=== PATIENT | male | born 1965 | race Caucasian/White ===

== ENCOUNTER → 2016-11-17 | Outpatient (CLI) | payer MEDICAID, MEDICARE ==
[~2016-11-17] MED LIST: AMLO5TAB2 PO; ATEN25TA PO; CEPH500C PO; CORE25TA PO; CYCL10TA PO; EQ N TD; ESCI10TA2 PO; FERR325T PO; FOLI1TAB2 PO; GABA600T PO; GABAPOW41 PO; GLUC1000 PO; IBUP600T26 PO; METFORMIN PO; MULTCAP PO; NICO21PAT TD; OXAZ10CA PO; PRIL20CA9 PO; ROXI15TA12 PO; THERTAB30 PO; TYLE325T5 PO; VITA100037 PO; VITA100T2 PO; VITAMIN D2 PO; ZEST1TAB7 PO
[2016-11-17 12:03] LABS: BASO % 0.5 % (0.0-1.0); EOS # 0.2 K/mm3 (0.0-0.50); LARGE UNSTAINED CELL # 0.1 K/mm3 (0.0-0.4); LARGE UNSTAINED CELL % 1.5 % (0.0-4.0); LYMPH # 1.3 K/mm3 (1.5-4.5); LYMPH % 21.7 % (24.0-44.0); MEAN CORPUSCULAR HGB CONC 32.8 g/dl (32.0-36.5); MEAN CORPUSCULAR VOLUME 94.6 fl (80.0-96.0); MONO # 0.3 K/mm3 (0.0-0.8); MONO % 4.9 % (0.0-5.0); NEUTROPHILS # 3.6 K/mm3 (1.8-7.7); NEUTROPHILS % 67.3 % (36.0-66.0); PLATELET COUNT, AUTOMATED 267 k/mm3 (150-450); RED CELL DISTRIBUTION WIDTH 13.8 % (11.5-14.5); WHITE BLOOD COUNT 5.4 K/mm3 (4.0-10.0)
[2016-11-17 12:24] LABS: ALBUMIN 3.7 GM/DL (3.2-5.2); ALBUMIN/GLOBULIN RATIO 1.32 (1.00-1.93); ALKALINE PHOSPHATASE 55 U/L (45-117); ALT/SGPT 17 U/L (12-78); ANION GAP 9 MEQ/L (8-16); AST/SGOT 15 U/L (15-37); BILIRUBIN,TOTAL 0.5 MG/DL (0.2-1.0); BLOOD UREA NITROGEN 15 MG/DL (7-18); CALCIUM LEVEL 8.5 MG/DL (8.5-10.1); CARBON DIOXIDE LEVEL 32 MEQ/L (21-32); CHLORIDE LEVEL 101 MEQ/L (98-107); CHOLESTEROL LEVEL 108 MG/DL (<200); CREATININE FOR GFR 0.87 MG/DL (0.70-1.30); FERRITIN 7 NG/ML (26-388); GLOMERULAR FILTRATION RATE > 60.0 (>56); GLUCOSE, FASTING 136 MG/DL (70-105); MAGNESIUM LEVEL 1.3 MG/DL (1.8-2.4); PERCENT SATURATION 18.7 % (19.7-37.4); POTASSIUM SERUM 4.8 MEQ/L (3.5-5.1); SODIUM LEVEL 142 MEQ/L (136-145); TOTAL IRON BINDING CAPACITY 358 UG/DL (250-450); TOTAL PROTEIN 6.5 GM/DL (6.4-8.2); TRIGLYCERIDES LEVEL 74 MG/DL (<150)
[2016-11-17 12:27] LABS: VITAMIN B12 LEVEL 968 PG/ML (247-911)
== END ==
LOC: M LAB 10:50
PROVIDERS: ATTEND Physician Assistant
DX: D50.9 Iron deficiency anemia, unspecified (principal); I10 Essential (primary) hypertension; E11.9 Type 2 diabetes mellitus without complications; E78.4 Other hyperlipidemia; E83.42 Hypomagnesemia; E55.9 Vitamin D deficiency, unspecified

== ENCOUNTER → 2016-12-27 | Outpatient (CLI) | payer MEDICAID, MEDICARE | LOC: M LAB 14:12 | PROVIDERS: ATTEND Family Medicine | DX: E83.42 Hypomagnesemia (principal) ==

== ENCOUNTER → 2017-01-24 | Outpatient (CLI) | payer MEDICARE ==
[~2017-01-24] VITALS: Ht 175.3 cm; Wt 81.6 kg
[~2017-01-24] MED LIST changes: +GABA-282 PO; +HYDR12.55 PO; +LIDOCAINE 2% INJ 100 MG/5 ML SDV (FOR ANES.) As Ordered ONE; +LIPI20TA PO; +NS 1,000 ML IV SCH; +OXYC15TA76 PO; +PROPOFOL 500 MG/50 ML VIAL As Ordered ONE; +STOO240C PO; +VITA500L3 PO
--- NOTE | 2017-01-24 15:35 | ROOR ---
Patient Name: Daryl Kaye Procedure Date: 01/24/2017 3:14 PM Date of : 1965 Age: 51 Room: [facility] Gender: Male Note Status: Finalized Procedure: Upper GI endoscopy Indications: Iron deficiency anemia Providers: Juaquin HICKEY MD Referring MD: MARTY Wong Requesting Provider: Medicines: Monitored Anesthesia Care Complications: No immediate complications. Procedure: Pre-Anesthesia Assessment: - The heart rate, respiratory rate, oxygen saturations, blood pressure, adequacy of pulmonary ventilation, and response to care were monitored throughout the procedure. The Endoscope was introduced through the mouth, and advanced to the jejunum. The upper GI endoscopy was accomplished without difficulty. The patient tolerated the procedure well. Findings: The examined esophagus was normal. 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 The gastrojejunal anastomosis was characterized by mild stenosis. The exam of the stomach was otherwise normal. The examined jejunum was normal. Biopsies for histology were taken with a cold forceps for evaluation of celiac disease. Impression: - Normal esophagus. - Rex-en-Y gastrojejunostomy with gastrojejunal anastomosis easily passable with mild stenosis. - Normal examined jejunum. Biopsied. Recommendation: - Recommend an iron supplement for the rest of the patient's life. Juaquin Hickey MD Juaquin HICKEY MD 01/24/2017 3:35:11 PM This report has been signed electronically. Number of Addenda: 0 Note Initiated On: 01/24/2017 3:14 PM Estimated Blood Loss: Estimated blood loss: none.
--- NOTE | 2017-01-24 15:45 | ROOR ---
Patient Name: Daryl Kaye Procedure Date: 01/24/2017 3:15 PM Date of : 1965 Age: 51 Room: [facility] Gender: Male Note Status: Finalized Procedure: Colonoscopy Indications: Screening for colorectal malignant neoplasm Providers: Juaquin HICKEY MD Referring MD: MARTY Wong Requesting Provider: Medicines: Monitored Anesthesia Care Complications: No immediate complications. Procedure: Pre-Anesthesia Assessment: - The heart rate, respiratory rate, oxygen saturations, blood pressure, adequacy of pulmonary ventilation, and response to care were monitored throughout the procedure. The Colonoscope was introduced through the anus with the intention of advancing to the cecum. The scope was advanced to the transverse colon before the procedure was aborted. Medications were given. The colonoscopy was performed with difficulty due to poor bowel prep with stool present. The patient tolerated the procedure well. The quality of the bowel preparation was poor. Findings: The perianal and digital rectal examinations were normal. Unable to perform adequate detail examination. Impression: - Preparation of the colon was poor. - Unable to perform adequate detail examination. - No specimens collected. Recommendation: - Repeat colonoscopy at the next available appointment because the bowel preparation was poor. - My office will call you within the next few days to reschedule a colonoscopy with alternate colon preparation. Juaquin Hickey MD Juaquin HICKEY MD 01/24/2017 3:45:33 PM This report has been signed electronically. Number of Addenda: 0 Note Initiated On: 01/24/2017 3:15 PM Estimated Blood Loss: Estimated blood loss: none.
[2017-01-24 16:11] VITALS: BP 166/98
== END | disposition home or self-care (01) ==
LOC: M OPP 14:20
PROVIDERS: ATTEND Internal Medicine Gastroenterology
DX: Z12.11 Encounter for screening for malignant neoplasm of colon (principal); D50.9 Iron deficiency anemia, unspecified; Z98.0 Intestinal bypass and anastomosis status; E78.5 Hyperlipidemia, unspecified; R60.0 Localized edema; E11.9 Type 2 diabetes mellitus without complications; R12 Heartburn; M19.90 Unspecified osteoarthritis, unspecified site; M54.9 Dorsalgia, unspecified; F41.9 Anxiety disorder, unspecified; F32.9 Major depressive disorder, single episode, unspecified; R56.9 Unspecified convulsions; I45.6 Pre-excitation syndrome; G82.20 Paraplegia, unspecified; Z98.1 Arthrodesis status; Z98.84 Bariatric surgery status; F17.210 Nicotine dependence, cigarettes, uncomplicated; Z79.84 Long term (current) use of oral hypoglycemic drugs; Z79.899 Other long term (current) drug therapy

== ENCOUNTER → 2017-03-03 | Outpatient (CLI) | payer MEDICARE, MEDICAID ==
[~2017-03-03] VITALS: Ht 175.3 cm; Wt 81.6 kg
[~2017-03-03] MED LIST changes: +LIQUID POLIBAR PLUS 105% w/v 1900ML BTL As Ordered ONE; +NS 1,000 ML IV ONE; -NS 1,000 ML IV SCH; +PROPOFOL 200 MG/20 ML VIAL As Ordered ONE; -PROPOFOL 500 MG/50 ML VIAL As Ordered ONE
--- NOTE | 2017-03-03 14:41 | ROOR ---
Patient Name: Daryl Kaye Procedure Date: 03/03/2017 2:04 PM Date of : 1965 Age: 52 Room: [facility] Gender: Male Note Status: Finalized Procedure: Colonoscopy Indications: Screening for colorectal malignant neoplasm Providers: Juaquin HICKEY MD Referring MD: Stiven Zamudio MD Requesting Provider: Medicines: Monitored Anesthesia Care Complications: No immediate complications. Procedure: Pre-Anesthesia Assessment: - The heart rate, respiratory rate, oxygen saturations, blood pressure, adequacy of pulmonary ventilation, and response to care were monitored throughout the procedure. The Colonoscope was introduced through the anus and advanced to the splenic flexure. The colonoscopy was performed with difficulty due to inadequate bowel prep. Findings: The perianal and digital rectal examinations were normal. There was evidence of a stricture or anastomosis in the area of the transverse colon. The anatomy is not determined with this exam. Impression: - Suboptimal colon prep. - Incomplete exam-Unable to pass scope safely beyond probably distal transverse colon due to stricture or anastomosis. - There was evidence of a stricture or anastomosis in the area of the transverse colon. The anatomy is not determined with this exam. - No specimens collected. Recommendation: - Perform a barium enema today. - Telephone endoscopist for study results in 2 weeks. Juaquin Hickey MD Juaquin HICKEY MD 03/03/2017 2:41:02 PM This report has been signed electronically. Number of Addenda: 0 Note Initiated On: 03/03/2017 2:04 PM Estimated Blood Loss: Estimated blood loss: none.
[2017-03-03 14:57] VITALS: BP 140/86
--- NOTE | 2017-03-03 17:21 | REP ---
BARIUM ENEMA AIR CONTRAST: The procedure was performed under the personal supervision of Dr. York. The images were reviewed with Dr. York. The patient is status post incomplete colonoscopy. The early childhood specialist film shows no organomegaly or pathological masses. The intestinal gas pattern is nonspecific. There is an IVC filter in place. There are multiple surgical clips noted throughout the abdomen. There is a fixation plate and screws seen in the right pelvis. Liquid barium and air were instilled into the colon in a retrograde flow of the barium and air mixture. In the splenic flexure here is a focal severe stricture which measures approximately 6 cm. There is dilation of the colon proximal to the stricture. Multiple techniques were tried by rolling the patient and adding air, however, very little contrast was able to be advanced beyond this stricture. This may be due to inflammatory or neoplastic process. IMPRESSION: In the splenic flexure there is a focal severe stricture measuring approximately 6 cm in total length. There is dilatation of the colon proximal to the stricture. This may be due to inflammatory or neoplastic process. 4 minutes and 57 seconds of fluoroscopy time was utilized for this procedure.
== END | disposition home or self-care (01) ==
LOC: M OPP 11:46
PROVIDERS: ATTEND Internal Medicine Gastroenterology
DX: Z12.11 Encounter for screening for malignant neoplasm of colon (principal); Z98.0 Intestinal bypass and anastomosis status; I10 Essential (primary) hypertension; E78.5 Hyperlipidemia, unspecified; E11.9 Type 2 diabetes mellitus without complications; K44.9 Diaphragmatic hernia without obstruction or gangrene; K21.9 Gastro-esophageal reflux disease without esophagitis; D64.9 Anemia, unspecified; G89.4 Chronic pain syndrome; J44.9 Chronic obstructive pulmonary disease, unspecified; I25.10 Atherosclerotic heart disease of native coronary artery without angina pectoris; I69.351 Hemiplegia and hemiparesis following cerebral infarction affecting right dominant side; Z98.84 Bariatric surgery status; R12 Heartburn; M19.90 Unspecified osteoarthritis, unspecified site; L30.9 Dermatitis, unspecified; M25.60 Stiffness of unspecified joint, not elsewhere classified; F41.9 Anxiety disorder, unspecified; F32.9 Major depressive disorder, single episode, unspecified; Z87.820 Personal history of traumatic brain injury; Z98.1 Arthrodesis status; F17.220 Nicotine dependence, chewing tobacco, uncomplicated; Z79.899 Other long term (current) drug therapy

== ENCOUNTER → 2017-04-18 | Outpatient (REF) | payer MEDICARE ==
[~2017-04-18] MED LIST changes: +FERR1TAB8 PO; -FERR325T PO; -FOLI1TAB2 PO; +FOLI1TAB4 PO; +IBUP-1022 PO; -IBUP600T26 PO; -LIDOCAINE 2% INJ 100 MG/5 ML SDV (FOR ANES.) As Ordered ONE; -LIQUID POLIBAR PLUS 105% w/v 1900ML BTL As Ordered ONE; -NS 1,000 ML IV ONE; -OXAZ10CA PO; +OXAZ10CA3 PO; -PROPOFOL 200 MG/20 ML VIAL As Ordered ONE; +STOO1CAP9 PO; -STOO240C PO; -VITA100037 PO; +VITA100067 PO
[2017-04-18 20:18] LABS: ANION GAP 8 MEQ/L (8-16); BLOOD UREA NITROGEN 16 MG/DL (7-18); CALCIUM LEVEL 8.8 MG/DL (8.5-10.1); CARBON DIOXIDE LEVEL 31 MEQ/L (21-32); CHLORIDE LEVEL 103 MEQ/L (98-107); GLOMERULAR FILTRATION RATE > 60.0 (>56); GLUCOSE, FASTING 125 MG/DL (70-105); POTASSIUM SERUM 4.1 MEQ/L (3.5-5.1); SODIUM LEVEL 142 MEQ/L (136-145)
== END ==
LOC: M SFHCPLAZ 15:50
PROVIDERS: ATTEND Physician Assistant
DX: Z01.818 Encounter for other preprocedural examination (principal); M18.12 Unilateral primary osteoarthritis of first carpometacarpal joint, left hand; G56.03 Carpal tunnel syndrome, bilateral upper limbs
CPT/HCPCS: 36415; 80048; 93005; G0463

== ENCOUNTER 2017-04-27 12:57 | Emergency (ER) | payer MEDICARE ==
[~2017-04-27] VITALS: Ht 175.3 cm; Wt 83.3 kg
[2017-04-27 12:57] VITALS: BP 162/97
== END 2017-04-27 13:30 | disposition left against medical advice (07) ==
LOC: M ED 12:57
DX: L76.22 Postprocedural hemorrhage of skin and subcutaneous tissue following other procedure (principal); Z53.29 Procedure and treatment not carried out because of patient's decision for other reasons

== ENCOUNTER 2017-05-26 06:50 | Inpatient (IN) | payer MEDICAID, MEDICARE ==
[2017-05-26] VITALS (8 sets, daily range): BP systolic 122–159; BP diastolic 74–96
[~2017-05-26] VITALS: Ht 175.3 cm; Wt 80.7 kg
[2017-05-26] MEDS ORDERED: ERTAPENEM SODIUM 1 GM in NS MINI-BAG PLUS 50 ML IV ONE (07:15)
[2017-05-26] MEDS ORDERED: ALVIMOPAN 12 MG CAPSULE (ENTEREG) PO ONE (07:15)
[2017-05-26] MEDS ORDERED: LR 1,000 ML IV SCH ×2 (07:15→13:15)
[2017-05-26 07:43] LABS: MEAN CORPUSCULAR HGB CONC 35.7 g/dl (32.0-36.5); MEAN CORPUSCULAR VOLUME 95.2 fl (80.0-96.0); WHITE BLOOD COUNT 6.7 K/mm3 (4.0-10.0)
[2017-05-26] MEDS ORDERED: fentaNYL 100 MCG/2 ML INJECTION (J3010) As Ordered ONE ×4 (08:07→11:47)
[2017-05-26] MEDS ORDERED: ePHEDrine SULFATE 25 MG/5 ML(5MG/ML) SYRINGE As Ordered ONE (08:07)
[2017-05-26] MEDS ORDERED: PHENYLEPHRINE INJ 10MG/ML VIAL (J2370) As Ordered ONE ×3 (08:07→10:39)
[2017-05-26] MEDS ORDERED: LIDOCAINE 2% INJ 100 MG/5 ML SYRINGE As Ordered ONE (08:07)
[2017-05-26] MEDS ORDERED: ROCURONIUM BROMIDE 50 MG/5 ML VIAL/SYRINGE As Ordered ONE (08:07)
[2017-05-26] MEDS ORDERED: PROPOFOL 200 MG/20 ML VIAL As Ordered ONE (08:07)
[2017-05-26] MEDS ORDERED: MIDAZOLAM INJ 2 MG/2 ML VIAL (J2250) As Ordered ONE ×2 (08:08→08:14)
[2017-05-26] MEDS ORDERED: dexameTHASONE 4 MG/ML 1ML VIAL (J1100) As Ordered ONE ×2 (08:08→10:50)
[2017-05-26] MEDS ORDERED: BUPIVACAINE HCL 0.25% 30 ML VIAL As Ordered ONE ×2 (08:14→11:50)
[2017-05-26] MEDS ORDERED: LIDOCAINE 1% SDV INJ 30 ML VIAL As Ordered ONE (08:14)
[2017-05-26] MEDS ORDERED: fentaNYL 100 MCG/2 ML INJECTION (J3010) IV ONE (08:45)
[2017-05-26] MEDS ORDERED: MIDAZOLAM INJ 2 MG/2 ML VIAL (J2250) IV ONE (08:45)
[2017-05-26] MEDS: hydroCHLOROthiazide 12.5 MG CAPSULE PO SCH (09:00)
[2017-05-26] MEDS ORDERED: METOPROLOL 5 MG/5 ML VIAL As Ordered ONE (09:07)
[2017-05-26] MEDS ORDERED: NEOSTIGMINE 10 MG/10 ML VIAL (J2710) As Ordered ONE (10:54)
[2017-05-26] MEDS ORDERED: GLYCOPYRROLATE INJ 0.2 MG/ML 2 ML VIAL As Ordered ONE (10:55)
[2017-05-26] MEDS ORDERED: ONDANSETRON 4MG/2ML VIAL (J2405) IV PRN ×2 (12:30→13:15)
[2017-05-26] MEDS ORDERED: ACETAMINOPHEN TAB 650MG DOSE (2X325MG) PO PRN (12:30)
[2017-05-26] MEDS ORDERED: FENTANYL 2MCG/ML BUPIVACAINE 0.0625% NACL 250ML IV BAG As Ordered ONE (12:56)
[2017-05-26] MEDS ORDERED: fentaNYL 100 MCG/2 ML INJECTION (J3010) IV PRN (13:15)
[2017-05-26] MEDS ORDERED: WALLBOXKEY XX PRN (13:15)
[2017-05-26] MEDS ORDERED: NALOXONE INJ 0.4 MG/1 ML VIAL (J2310) IV PRN (13:15)
[2017-05-26] MEDS ORDERED: EPIDURAL/PCA KEYS XX PRN (13:15)
[2017-05-26] MEDS ORDERED: METOCLOPRAMIDE INJ 10MG/2ML VIAL (J2765) IV PRN (13:15)
[2017-05-26] MEDS: FENTANYL/BUPIVACAINE/NACL BAG 250 ML EPIDURAL SCH (13:15)
[2017-05-26] MEDS ORDERED: GABAPENTIN 300 MG CAP PO SCH (16:00)
[2017-05-26] MEDS: GABAPENTIN 300 MG CAP PO SCH ×2 (16:21→20:18)
[2017-05-26] MEDS: CYCLOBENZAPRINE 10 MG TAB PO PRN (16:21)
[2017-05-26] MEDS: ESCITALOPRAM OXALATE 10 MG TAB (LEXAPRO) PO SCH (16:22)
[2017-05-26] MEDS: amLODIPine 10 MG TAB PO SCH (16:22)
[2017-05-26] MEDS ORDERED: MORPHINE 2 MG/ML 1ML SYRINGE IV ONE (20:00)
[2017-05-26] MEDS: diphenhydrAMINE INJ 50MG/ML VIAL (J1200) IV PRN (20:15)
[2017-05-26] MEDS: OMEPRAZOLE 20 MG CAP PO SCH (20:18)
[2017-05-26] MEDS: SENOKOT S TAB PO SCH (20:18)
[2017-05-26] MEDS: HEPARIN SOD (PORCINE) 5000 UNITS/ML VIAL SC SCH (20:18)
[2017-05-27 02:00] VITALS: BP 150/83
[2017-05-27] MEDS: diphenhydrAMINE INJ 50MG/ML VIAL (J1200) IV PRN ×2 (02:08→07:52)
[2017-05-27] MEDS: KETOROLAC 30 MG/ML VIAL (J1885) IV PRN ×3 (02:09→15:26)
[2017-05-27 06:00] VITALS: BP 158/77
[2017-05-27] MEDS: HEPARIN SOD (PORCINE) 5000 UNITS/ML VIAL SC SCH ×3 (06:02→20:43)
[2017-05-27 07:22] LABS: ANION GAP 8 MEQ/L (8-16); BLOOD UREA NITROGEN 7 MG/DL (7-18); CALCIUM LEVEL 7.8 MG/DL (8.5-10.1); CARBON DIOXIDE LEVEL 30 MEQ/L (21-32); CHLORIDE LEVEL 104 MEQ/L (98-107); CREATININE FOR GFR 0.69 MG/DL (0.70-1.30); GLOMERULAR FILTRATION RATE > 60.0 (>56); GLUCOSE, FASTING 102 MG/DL (70-105); SODIUM LEVEL 142 MEQ/L (136-145)
[2017-05-27 07:27] LABS: BASO % 0.2 % (0.0-1.0); EOS # 0.1 K/mm3 (0.0-0.50); EOS % 1.5 % (0.0-3.0); LARGE UNSTAINED CELL # 0.1 K/mm3 (0.0-0.4); LARGE UNSTAINED CELL % 1.6 % (0.0-4.0); LYMPH # 1.3 K/mm3 (1.5-4.5); MEAN CORPUSCULAR HEMOGLOBIN 33.4 pg (27.0-33.0); MEAN CORPUSCULAR HGB CONC 33.7 g/dl (32.0-36.5); MEAN CORPUSCULAR VOLUME 99.2 fl (80.0-96.0); MONO # 0.6 K/mm3 (0.0-0.8); MONO % 8.7 % (0.0-5.0); NEUTROPHILS # 4.5 K/mm3 (1.8-7.7); NEUTROPHILS % 70.1 % (36.0-66.0); PLATELET COUNT, AUTOMATED 270 k/mm3 (150-450); RED CELL DISTRIBUTION WIDTH 13.5 % (11.5-14.5); WHITE BLOOD COUNT 6.4 K/mm3 (4.0-10.0)
[2017-05-27] MEDS: FERROUS SULFATE 325MG TAB PO SCH (07:53)
[2017-05-27] MEDS: hydroCHLOROthiazide 12.5 MG CAPSULE PO SCH (07:53)
[2017-05-27] MEDS: SENOKOT S TAB PO SCH ×2 (07:53→20:43)
[2017-05-27] MEDS: amLODIPine 10 MG TAB PO SCH (07:54)
[2017-05-27] MEDS: ATORVASTATIN 20 MG TAB PO SCH (07:54)
[2017-05-27] MEDS: OMEPRAZOLE 20 MG CAP PO SCH ×2 (07:54→20:43)
[2017-05-27] MEDS: ATENOLOL 25 MG TAB PO SCH (07:54)
[2017-05-27] MEDS: VITAMIN D 1,000 INTERNATIONAL UNITS TABLET PO SCH (07:55)
[2017-05-27] MEDS: CYANOCOBALAMIN 500 MCG TAB PO SCH (07:55)
[2017-05-27] MEDS: ESCITALOPRAM OXALATE 10 MG TAB (LEXAPRO) PO SCH (07:55)
[2017-05-27] MEDS: CYCLOBENZAPRINE 10 MG TAB PO PRN ×3 (07:59→23:56)
[2017-05-27] MEDS: FENTANYL/BUPIVACAINE/NACL BAG 250 ML EPIDURAL SCH (08:26)
[2017-05-27] MEDS: GABAPENTIN 300 MG CAP PO SCH ×3 (10:17→20:43)
--- NOTE | 2017-05-27 11:00 | IPNPDOC ---
Subjective General Date/Time Seen The patient was seen on 05/27/17 at 10:47. Subject Chief Complaint/History The patient is a 52-year-old male admitted POD laparoscopic lysis of adhesion, colonoscopy No strictures found at the splenic flexure, tight adhesion causing an acute turn on the colon. I was able to traverse the colon to the cecum. Current Medications Current Medications Current Medications Acetaminophen (Tylenol Tab) 650 mg Q4HP PRN PO MILD PAIN or TEMP > 101; Start 05/26/17 at 12:30; Stop 06/25/17 at 12:29 Amlodipine Besylate (Norvasc) 10 mg DAILY PO Last administered on 05/27/17 07: 54; Start 05/26/17 at 09:00; Stop 06/25/17 at 08:59 Atenolol (Tenormin) 25 mg DAILY PO Last administered on 05/27/17 07:54; Start 05/27/17 at 09:00; Stop 06/26/17 at 08:59 Atorvastatin Calcium (Lipitor) 20 mg DAILY PO Last administered on 05/27/17 07 :54; Start 05/27/17 at 09:00; Stop 06/26/17 at 08:59 Cyanocobalamin (Vitamin B12) 500 mcg DAILY PO Last administered on 05/27/17 07 :55; Start 05/27/17 at 09:00; Stop 06/26/17 at 08:59 Cyclobenzaprine HCl (Flexeril) 10 mg TID PRN PO MUSCLE SPASMS Last administered on 05/27/17 07:59; Start 05/26/17 at 12:30; Stop 06/25/17 at 12: 29 Diphenhydramine HCl (Benadryl) 12.5 mg Q4HP PRN IV ITCHING Last administered on 05/27/17 07:52; Start 05/26/17 at 13:15; Stop 05/29/17 at 13:14 Escitalopram Oxalate (Lexapro) 10 mg DAILY PO Last administered on 05/27/17 07 :55; Start 05/26/17 at 09:00; Stop 06/25/17 at 08:59 Fentanyl Citrate (Sublimaze) 25 mcg Q5MP PRN IV MODERATE PAIN (PS 4-7); Start 05/26/17 at 13:15; Stop 05/26/17 at 14:15; Status DC Fentanyl/ Bupivacaine HCl 250 ml @ 10 mls/hr Q24H EPIDURAL Last administered on 05/27/17 08:26; Start 05/26/17 at 13:15; Stop 05/29/17 at 13:14 Ferrous Sulfate (Ferrous Sulfate) 325 mg DAILY PO Last administered on 07:53; Start 05/27/17 at 09:00; Stop 06/26/17 at 08:59 Gabapentin (Neurontin) 300 mg TID PO ; Start 05/26/17 at 16:00; Stop 06/25/17 at 15:59; Status UNV Gabapentin (Neurontin) 900 mg TID PO Last administered on 05/27/17 10:17; Start 05/26/17 at 16:00; Stop 06/25/17 at 15:59 Heparin Sodium (Porcine) (Heparin) 5,000 units Q8H SC Last administered on 05/27 06:02; Start 05/26/17 at 22:00; Stop 05/31/17 at 21:59 Hydrochlorothiazide (Hydrodiuril) 12.5 mg DAILY PO Last administered on 07:53; Start 05/26/17 at 09:00; Stop 06/25/17 at 08:59 Ketorolac Tromethamine (ToRADol) 30 mg Q6HP PRN IV MILD/MODERATE PAIN (PS 1-7) Last administered on 05/27/17 08:03; Start 05/26/17 at 12:30; Stop 05/31/17 at 12:29 Lactated Ringer's 1,000 ml @ 100 mls/hr Q10H IV Last administered on 07:36; Start 05/26/17 at 07:15; Stop 05/26/17 at 13:08; Status DC Lactated Ringer's 1,000 ml @ 100 mls/hr Q10H IV ; Start 05/26/17 at 13:15; Stop 05/26/17 at 14:15; Status DC Metoclopramide HCl (REGLAN INJection) 10 mg Q6HP PRN IV NAUSEA; Start 05/26/17 at 13:15; Stop 05/29/17 at 13:14 Naloxone HCl (Narcan) 0.1 mg Q5MP PRN IV SEE LABEL COMMENTS; Start 05/26/17 at 13:15; Stop 05/29/17 at 13:14 Non-Formulary Medication (Epidural/CYTOLOGY MANAGER [place]) 1 each ASDIRECTED PRN XX SEE LABEL COMMENTS; Start 05/26/17 at 13:15; Stop 06/25/17 at 13:14 Non-Formulary Medication ([place]) ASDIRECTED PRN XX SEE LABEL COMMENTS; Start at 13:15; Stop 06/25/17 at 13:14 Omeprazole (PriLOSEC) 20 mg BID PO Last administered on 05/27/17 07:54; Start 05/26/17 at 21:00; Stop 06/25/17 at 20:59 Ondansetron HCl (ZOFRAN INJection) 4 mg Q4HP PRN IV NAUSEA OR VOMITING; Start 05/26/17 at 13:15; Stop 05/26/17 at 14:15; Status DC Ondansetron HCl (ZOFRAN INJection) 4 mg Q6HP PRN IV NAUSEA OR VOMITING; Start 05/26/17 at 12:30; Stop 06/25/17 at 12:29 Senna/Docusate Sodium (Senokot S) 1 tab BID PO Last administered on 05/27/17 07:53; Start 05/26/17 at 21:00; Stop 06/25/17 at 20:59 Vitamin D (Vitamin D) 1,000 units DAILY PO Last administered on 05/27/17 07:55 ; Start 05/27/17 at 09:00; Stop 06/26/17 at 08:59 Allergies Coded Allergies: No Known Allergies (Unverified , 05/26/17) Objective Physical Examination Examination GENERAL APPEARANCE:comfortable, sitting up on chair. SKIN: Warm and moist. HEENT: Normocephalic, atraumatic. [place] palpebral conjunctiva, anicteric sclerae. Lips and mucosa appear moist. NECK: Supple, no thyromegaly. No obvious jugular venous distention. LUNGS: Clear to auscultation bilaterally. No wheezing appreciated. HEART: No chest wall abnormalities. Regular rate and rhythm with no murmurs appreciated. ABDOMEN: Abdomen is slight round, soft, nondistended. port sites with dressings c/d/i. Nontender on palpation. EXTREMITIES: cuevas in place - clear urine. Vital Signs Vital Signs Date Time Temp Pulse Resp B/P (MAP) Pulse Ox O2 Delivery O2 Flow Rate FiO2 05/27/17 08:12 Room Air 05/27/17 07:54 65 158/77 05/27/17 06:00 97.8 20 96 1.0 I&Os I&O- Last 24 Hours up to 6 AM 05/27/17 05:59 Intake Total 960 ml Output Total 2700 ml Balance -1740 ml Laboratory Data Labs 24H Laboratory Tests 2 05/27/17 06:50: White Blood Count 6.4, Red Blood Count 3.96L, Hemoglobin 13.2L, Hematocrit 39.3L , Mean Corpuscular Volume 99.2H, Mean Corpuscular Hemoglobin 33.4H, Mean Corpuscular Hemoglobin Concent 33.7, Red Cell Distribution Width 13.5, Platelet Count 270, Neutrophils (%) (Auto) 70.1H, Lymphocytes (%) (Auto) 18.0L, Monocytes (%) (Auto) 8.7H, Eosinophils (%) (Auto) 1.5, Basophils (%) (Auto) 0.2 , Neutrophils # (Auto) 4.5, Lymphocytes # (Auto) 1.3L, Monocytes # (Auto) 0.6, Eosinophils # (Auto) 0.1, Basophils # (Auto) 0.0, Large Unclassified Cells % 1.6 , Large Unclassified Cells # 0.1, Anion Gap 8, Glomerular Filtration Rate > 60.0 , Blood Urea Nitrogen 7, Creatinine 0.69L, Sodium Level 142, Potassium Level 4.0 , Chloride Level 104, Carbon Dioxide Level 30, Calcium Level 7.8L CBC/BMP Laboratory Tests 05/27/17 06:50 Red Blood Count 3.96 L, Mean Corpuscular Volume 99.2 H, Mean Corpuscular Hemoglobin 33.4 H, Mean Corpuscular Hemoglobin Concent 33.7, Red Cell Distribution Width 13.5, Neutrophils (%) (Auto) 70.1 H, Lymphocytes (%) (Auto) 18.0 L, Monocytes (%) (Auto) 8.7 H, Eosinophils (%) (Auto) 1.5, Basophils (%) ( Auto) 0.2, Neutrophils # (Auto) 4.5, Lymphocytes # (Auto) 1.3 L, Monocytes # ( Auto) 0.6, Eosinophils # (Auto) 0.1, Basophils # (Auto) 0.0, Calcium Level 7.8 L Impression POD 1 Laparoscopic lysis of adhesion No anatomic strictures found. I was able to complete a colonoscopy to the cecum. There was some adhesionst that pulled the splenic flexure to the lateral abdominal wall which may have caused a tight turn on the splenic flexure and appeared strictured. D/C epidural D/C cuevas regular dose of his oxycodone ambulate regular diet. Plan / VTE VTE Prophylaxis Ordered?: Yes Plan / Urinary Catheter Urinary Catheter: D/C CITLALLI Henderson MD May 27, 2017 11:00
[2017-05-27] MEDS: oxyCODONE 5MG TAB PO PRN ×3 (11:31→23:57)
[2017-05-27 14:00] VITALS: BP 140/87
[2017-05-27 22:00] VITALS: BP 151/86
[2017-05-28 06:00] VITALS: BP 138/74
[2017-05-28] MEDS: oxyCODONE 5MG TAB PO PRN ×2 (06:05→12:43)
[2017-05-28] MEDS: HEPARIN SOD (PORCINE) 5000 UNITS/ML VIAL SC SCH ×2 (06:06→13:11)
[2017-05-28] MEDS: OMEPRAZOLE 20 MG CAP PO SCH (08:15)
[2017-05-28] MEDS: GABAPENTIN 300 MG CAP PO SCH (08:15)
[2017-05-28] MEDS: KETOROLAC 30 MG/ML VIAL (J1885) IV PRN (08:15)
[2017-05-28] MEDS: CYANOCOBALAMIN 500 MCG TAB PO SCH (08:15)
[2017-05-28 08:16] VITALS: BP 138/74
[2017-05-28] MEDS: amLODIPine 10 MG TAB PO SCH (08:16)
[2017-05-28] MEDS: ATENOLOL 25 MG TAB PO SCH (08:16)
[2017-05-28] MEDS: VITAMIN D 1,000 INTERNATIONAL UNITS TABLET PO SCH (08:16)
[2017-05-28] MEDS: SENOKOT S TAB PO SCH (08:16)
[2017-05-28] MEDS: ESCITALOPRAM OXALATE 10 MG TAB (LEXAPRO) PO SCH (08:16)
[2017-05-28] MEDS: CYCLOBENZAPRINE 10 MG TAB PO PRN (08:16)
[2017-05-28] MEDS: FERROUS SULFATE 325MG TAB PO SCH (08:16)
[2017-05-28] MEDS: ATORVASTATIN 20 MG TAB PO SCH (08:16)
[2017-05-28] MEDS: hydroCHLOROthiazide 12.5 MG CAPSULE PO SCH (08:17)
--- NOTE | 2017-06-27 13:20 | ROOPDOC ---
[facility] Report Of Operation Report of Operation DATE OF PROCEDURE: 05/26/2017 PREPROCEDURE DIAGNOSES: Splenic flexure stricture. POSTPROCEDURE DIAGNOSES: Intra-abdominal adhesions causing tethering of the distal transverse colon to the abdominal wall. No stricture found. PROCEDURE: 1. Laparoscopic lysis of adhesion 2. Intraoperative colonoscopy to the cecum SURGEON: Asher Mckeon MD CANDY DECORATOR: ANESTHESIA: Gen. anesthesia with placement of epidural anesthesia preoperatively ESTIMATED BLOOD LOSS: Approximately 50 mL. COMPLICATIONS: none. REMARKS: Patient's 52-year-old male with no reported changes in bowel habits but has some constipation who underwent screening colonoscopy and was found to have significant stricture at the splenic flexure that the endoscopist was not able to traverse. A barium enema was subsequently done documenting a tight stricture. He was then referred to me for consideration for resection of the stricture. The proximal colon was not able to be evaluated by both the colonoscopy and the barium enema. PROCEDURE NOTE: Patient was found to have multiple adhesions involving both the small bowel and the transverse colon that is adherent through the upper abdominal wall pulling on the splenic flexure causing a tight turn which most likely was the cause of the incomplete colonoscopy. I did a intraoperative colonoscopy and was able to traverse the area after lysing all the adhesions on the anterior abdominal wall and freeing up the splenic flexure. Prior area of tight turn was marked with Elsa ink during the colonoscopy. DESCRIPTION OF PROCEDURE: Patient was given a dose of Invanz 1 g IV for prophylactic antibiotic. An epidural was placed and tested in the preoperative holding area. He is brought to the operating room, placed supine on the table. Sequential Compression boots placed on both lower extremities for DVT prophylaxis. A Smiley catheter placed for urine output monitoring. His abdomen was then prepped and draped widely in usual sterile fashion. Entry into the abdomen was done through small incisions in the right subcostal area. A Veress needle was inserted. Intra-abdominal location was confirmed with saline drop technique. CO2 insufflation then done to a pressure of 15 mmHg. Using the same incision a 5 minute of his port was placed under direct vision of laparoscope. A 5 mm 30 laparoscope was used. An insertion of laparoscopic realize that it was under knee the omentum and most of the omentum was tethered onto the abdominal wall. I found an area where the omentum was thin and broke through to get visualization of the abdominal wall I was then able to place a port at the right lower quadrant area. Using the sports with a LigaSure device I started bringing down the omentum. When I was close to the bowel suture adhered to the abdominal wall as well I used laparoscopic brett without any cautery. I was unable to gain visualization over the left lower quadrant area where another 5 mm port was placed. Using this working ports we worked on the area close to the umbilicus and freed up the small bowel adhered to the area. Once were able to gain some free space over the area another 5 mm port was placed over here. Patient was then turned on a reverse Trendelenburg position with the right side tilted down to get an adequate view of the left upper quadrant area. I manipulated the colon starting at the left side going towards the splenic flexure and the transverse colon the transverse colon is also adhered to the upper abdominal wall and tethered coming down onto the splenic flexure and splenic flexure was likewise tethered onto the sidewall up high on to the upper lateral abdomen. Patient also has had a previous gastric bypass tenderness seems that the Rex limb seems to be in an antecolic loop progressing onto the transverse colon. I did not see any tattoo allen from the previous colonoscopy for the stricture was. I worked on freeing the transverse colon on its entirely from its adhesion to the abdominal wall. Likewise freed up the rest of the small bowel and freed up the adhesion of the Rex limb of the gastric bypass away from the transverse colon. After doing this I completely took down the splenic flexure from its lateral attachments down to the descending colon. After doing this maneuvers I noted that the descending colon was starting to get more distended. I again follow the colon from the sigmoid up towards the splenic flexure and I could not detect any area of mass, fixed stricture. At this point I decided to do an intraoperative colonoscopy. As the patient was initially on the supine position Landry Jose A stirrups were placed and the patient was placed on a lithotomy position. I then scrubbed the abdomen was deflated I did a colonoscopy and was able to go through to the whole of the colon with visualization of the cecum confirmed by the detection of the ileocecal valve as well as the appendix orifice. I came back into the abdomen at this time I had asked Dr. Gonsalves into the operating room the abdomen was insufflated I could visualize the colon, through to the splenic flexure and come back onto the descending colon I marked the area where the splenic flexure was. At this point there does not seem to be any fixed stricture no masses that I found I decided to and my procedure. The abdomen was deflated and all ports were removed the 5 liver ports were closed with 4-0 Monocryl in subcuticular fashion Dermabond dressings were used. He was then properly awakened extubated and brought to recovery room stable ASHER MCKEON MD Jun 27, 2017 13:20
--- NOTE | 2017-06-27 13:30 | DS.PDOC ---
Discharge Summary General Date of Admission May 26, 2017 at 06:50 Date of Discharge 05/28/2017 Attending Physician: CITLALLI VARNER MD Discharge Summary PROCEDURES PERFORMED DURING STAY: Laparoscopic lysis of adhesion, intraoperative colonoscopy ADMITTING DIAGNOSES: 1. Splenic flexure stricture DISCHARGE DIAGNOSES: 1. Colon adhesion with tethering of the transverse colon to the abdominal wall causing an acute angle on the splenic flexure but no stricture was found CHIEF COMPLAINT: Splenic Flexture Stricture. HISTORY OF PRESENT ILLNESS: Patient is brought to the operating room for possible resection of the splenic flexure stricture found on colonoscopy. HOSPITAL COURSE: Patient underwent surgery for possible stricture of the splenic flexure. No structures were found but extensive intra-abdominal small bowel and colon adhesion with tethering of the distal transverse colon causing an acute angulation onto the lateral abdominal wall likewise the positioning of the Rex limb of the gastric bypass in an antecolic position. Due to the patient 's use of high-dose of narcotics I had anesthesia place an epidural prior to the operating room. We kept this overnight and this was discontinued the following morning after patient was noted to be very comfortable. He was started on clear liquids to first night. The Smiley catheter was subsequently removed after removal of the epidural. His diet was advanced. He continues to be comfortable and subsequently discharged the following day with regular passage of flatus. DISCHARGE MEDICATIONS: Please see below. ALLERGIES: Please see below. PHYSICAL EXAMINATION ON DISCHARGE: VITAL SIGNS: Please see below. GENERAL: Comfortable HEENT: [place] palpebral conjunctiva, lips and mucosa are moist NECK: No cervical lymphadenopathy CARDIOVASCULAR EXAMINATION: Regular heart rate and rhythm RESPIRATORY EXAMINATION: Clear breath sounds bilaterally ABDOMINAL EXAMINATION: Flat, soft, nondistended and nontender. Port sites are clean and dry EXTREMITIES: No edema SKIN: No skin rashes NEUROLOGICAL EXAMINATION: Awake, alert, oriented PSYCHIATRIC EXAMINATION: Mood and affect appropriate LABORATORY DATA: Please see below. IMAGING: None PROGNOSIS: Good ACTIVITY: [As tolerated]. DIET: Regular as tolerated DISCHARGE PLAN: Patient discharged home. I discussed with the patient as well as with Dr. Hickey my intraoperative findings. He will follow up with me in 2 weeks' time. He will arrange follow up with Dr. Hickey for repeat colonoscopy DISPOSITION: 01 Home, Self-Care. DISCHARGE INSTRUCTIONS: 1. Follow up with me in 2 weeks ITEMS TO FOLLOWUP ON ON OUTPATIENT: 1. Patient to follow-up with Dr. Reindl for repeat colonoscopy as an outpatient DISCHARGE CONDITION: Stable. TIME SPENT ON DISCHARGE: Greater than 30 minutes. Discharge Medications Scheduled (Stool Softener) 240 Mg Cap, 240 MG PO DAILY, (Reported) Amlodipine Besylate (Amlodipine Besylate) 5 Mg Tab, 10 MG PO DAILY, (Reported) Atenolol (Atenolol) 25 Mg Tab, 25 MG PO DAILY, (Reported) Atorvastatin Calcium (Lipitor) 20 Mg Tab, 20 MG PO DAILY, (Reported) Cyanocobalamin (Vitamin B-12) 500 Mcg [place], 500 MCG PO DAILY, (Reported) Escitalopram Oxalate (Escitalopram Oxalate) 10 Mg Tab, 10 MG PO DAILY for DEPRESSION Ferrous Sulfate (Ferrous Sulfate) 325 Mg Tab, 325 MG PO DAILY for anemia Gabapentin (Gabapentin) 300 Mg Cap, 300 MG PO TID, (Reported) Gabapentin (Gabapentin) 600 Mg Tab, 600 MG PO TID, (Reported) Hydrochlorothiazide (Hydrochlorothiazide) 12.5 Mg Tab, 12.5 MG PO DAILY, ( Reported) Omeprazole (Prilosec) 20 Mg Cap, 20 MG PO BID, (Reported) Vitamin D (Vitamin D) 1,000 Unit Cap, 1,000 UNIT PO DAILY for Vitamin D deficiency, (Reported) [Metformin] , 1,000 MG PO BID for DM, (Reported) Scheduled PRN Acetaminophen (Tylenol) 325 Mg Tab, 650 MG PO Q6HP PRN for headache or discomfort, (Reported) MDD: 4 grams in 24 hours Cyclobenzaprine HCl (Cyclobenzaprine HCl) 10 Mg Tab, 10 MG PO TID PRN for MUSCLE SPASMS, (Reported) Oxycodone Hcl (Oxycodone HCl) 15 Mg Tab, 15 MG PO Q6HP PRN for PAIN, (Reported) Allergies Coded Allergies: No Known Allergies (Unverified , 05/26/17) CITLALLI VARNER MD Jun 27, 2017 13:30
== END 2017-05-28 14:08 | disposition home or self-care (01) | DRG 337 ==
LOC: M OR 06:50 → M MS5PR 14:00
PROVIDERS: ADMIT Surgery; ATTEND Surgery
PROC: 0DN84ZZ Release Small Intestine, Percutaneous Endoscopic Approach (ICD-10-PCS; 2017-05-26)
PROC: 0DNL4ZZ Release Transverse Colon, Percutaneous Endoscopic Approach (ICD-10-PCS; principal; 2017-05-26 08:30)
DX: K56.5 Intestinal adhesions [bands] with obstruction (postinfection) (principal); Z79.899 Other long term (current) drug therapy; Z79.84 Long term (current) use of oral hypoglycemic drugs; Z98.84 Bariatric surgery status; K56.69 Other intestinal obstruction

== ENCOUNTER 2017-09-22 10:28 | Emergency (ER) | payer MEDICARE, MEDICAID ==
[2017-09-22] MEDS: NS 1,000 ML IV ×2 (11:50→16:06)
[2017-09-22] MEDS: ONDANSETRON 4MG/2ML VIAL (J2405) IV (11:50)
[2017-09-22] MEDS: MORPHINE 4 MG/ML 1ML SYRINGE IV ×2 (11:50→16:06)
[2017-09-22 12:01] LABS: BASO # 0.1 10^3/uL (0.0-0.2); BASO % 0.4 % (0.0-1.0); EOS # 0.1 10^3/uL (0.0-0.50); EOS % 0.9 % (0.0-3.0); HEMATOCRIT 39.7 % (42.0-52.0); IMMATURE GRANULOCYTE # 0.1 10^3/uL (0-0); IMMATURE GRANULOCYTE % 0.6 % (0-0); LYMPH # 0.8 10^3/uL (1.5-4.5); LYMPH % 6.2 % (24.0-44.0); MEAN CORPUSCULAR HEMOGLOBIN 33.1 pg (27.0-33.0); MEAN CORPUSCULAR HGB CONC 35.3 g/dl (32.0-36.5); MEAN CORPUSCULAR VOLUME 93.9 fl (80.0-96.0); MONO % 7.2 % (0.0-5.0); NEUTROPHILS # 11.3 10^3/uL (1.8-7.7); NEUTROPHILS % 84.7 % (36.0-66.0); PLATELET COUNT, AUTOMATED 205 10^3/uL (150-450); RED BLOOD COUNT 4.23 10^6/uL (4.30-6.10); RED CELL DISTRIBUTION WIDTH 12.8 % (11.5-14.5); WHITE BLOOD COUNT 13.3 10^3/uL (4.0-10.0)
[2017-09-22 12:18] LABS: ALBUMIN 3.4 GM/DL (3.2-5.2); ALBUMIN/GLOBULIN RATIO 0.83 (1.00-1.93); ALKALINE PHOSPHATASE 86 U/L (45-117); ALT/SGPT 94 U/L (12-78); AMYLASE 20 U/L (25-115); ANION GAP 8 MEQ/L (8-16); AST/SGOT 32 U/L (7-37); BILIRUBIN,DIRECT 0.7 MG/DL (0.0-0.2); BILIRUBIN,TOTAL 1.9 MG/DL (0.2-1.0); BLOOD UREA NITROGEN 14 MG/DL (7-18); CALCIUM LEVEL 8.8 MG/DL (8.5-10.1); CARBON DIOXIDE LEVEL 27 MEQ/L (21-32); CHLORIDE LEVEL 98 MEQ/L (98-107); CREATININE FOR GFR 0.84 MG/DL (0.70-1.30); GLOMERULAR FILTRATION RATE > 60.0 (>56); GLUCOSE, FASTING 215 MG/DL (70-105); INR 1.01; LIPASE 63 U/L (73-393); MAGNESIUM LEVEL 1.6 MG/DL (1.8-2.4); PHOSPHORUS LEVEL 1.9 MG/DL (2.5-4.9); POTASSIUM SERUM 3.7 MEQ/L (3.5-5.1); PROTHROMBIN TIME 13.4 SECONDS (12.4-14.5); SODIUM LEVEL 133 MEQ/L (136-145); TOTAL PROTEIN 7.5 GM/DL (6.4-8.2)
[2017-09-22 12:19] LABS: PARTIAL THROMBOPLASTIN TIME 28.5 SECONDS (26.8-37.9)
[2017-09-22] MEDS ORDERED: ISOVUE-370 76% 100ML VIAL (Q9967) As Ordered (12:53)
[2017-09-22 13:01] LABS: KETONE, URINE AUTO RFX NEGATIVE (NEGATIVE); MUCUS, URINE RFX SMALL (NEGATIVE); RBC, URINE AUTO RFX 80 /HPF (0-3); SPECIFIC GRAVITY UR AUTO RFX 1.013 (1.002-1.035); SQUAM EPITHELIAL CELL UR AURFX 0 /HPF (0-6)
[2017-09-22 13:03] LABS: LEUKOCYTE ESTERASE UR AUTO RFX 3+ (NEGATIVE); NITRITE, URINE AUTO RFX POSITIVE (NEGATIVE); WBC, URINE AUTO RFX TNTC /HPF (0-3)
[2017-09-22 14:25] LABS: CHLAMYDIA DNA AMPLIFICATION NEGATIVE (NEGATIVE); GC DNA AMPLIFICATION NEGATIVE (NEGATIVE)
[2017-09-22 15:31] LABS: ESTIMATED AVERAGE GLUCOSE 169 MG/DL (60-110); HEMOGLOBIN A1c 7.5 %
[2017-09-22] MEDS ORDERED: metroNIDAZOLE 500 MG in APPROPRIATE DILUENT 1 EA IV (15:45)
[2017-09-22] MEDS ORDERED: CIPROFLOXACIN 400 MG in APPROPRIATE DILUENT 1 EA IV (15:45)
[2017-09-22] MEDS: CEFTRIAXONE SOD 2 GM in APPROPRIATE DILUENT 1 EA IV (16:25)
[2017-09-22 17:41] LABS: HEPATITIS B SURFACE ANTIGEN NEGATIVE (NEGATIVE)
[2017-09-22 18:10] LABS: HEPATITIS B CORE ANTIBODY IGM NEGATIVE (NEGATIVE)
[2017-09-22 18:11] LABS: HEPATITIS A ANTIBODY IGM NEGATIVE (NEGATIVE)
[2017-09-22 18:51] LABS: HEPATITIS C VIRUS ABY INDEX > 11.0 INDEX (<0.8)
[2017-09-27 00:08] LABS: HCV RNA NAA QUALITATIVE Positive (Negative)
== END 2017-09-22 16:45 | disposition short-term general hospital (02) ==
LOC: M ED 10:28
DX: N39.0 Urinary tract infection, site not specified (principal); K80.71 Calculus of gallbladder and bile duct without cholecystitis with obstruction; I10 Essential (primary) hypertension; E11.9 Type 2 diabetes mellitus without complications; K58.9 Irritable bowel syndrome, unspecified; E78.70 Disorder of bile acid and cholesterol metabolism, unspecified; K21.9 Gastro-esophageal reflux disease without esophagitis; M54.5 Low back pain; G89.29 Other chronic pain; Z79.899 Other long term (current) drug therapy; Z87.19 Personal history of other diseases of the digestive system; Z98.0 Intestinal bypass and anastomosis status; Z98.890 Other specified postprocedural states
CPT/HCPCS: J2405

== ENCOUNTER → 2017-10-02 | Outpatient (REF) | payer MEDICARE, MEDICAID | LOC: M LAB REF 17:19 | DX: G56.03 Carpal tunnel syndrome, bilateral upper limbs (principal); Z79.899 Other long term (current) drug therapy | CPT/HCPCS: 80307 ==

== ENCOUNTER → 2017-10-13 | Outpatient (CLI) | payer MEDICARE | LOC: M PLARAD 13:34 | DX: M54.2 Cervicalgia (principal); M43.02 Spondylolysis, cervical region; R20.2 Paresthesia of skin; M48.062 Spinal stenosis, lumbar region with neurogenic claudication; Z98.1 Arthrodesis status | CPT/HCPCS: 72141 ==

== ENCOUNTER → 2018-02-28 | Outpatient (CLI) | payer MEDICARE ==
[2018-02-28 16:26] LABS: ESTIMATED AVERAGE GLUCOSE 160 MG/DL (60-110); HEMOGLOBIN A1c 7.2 %
[2018-02-28 16:55] LABS: ANION GAP 10 MEQ/L (8-16); BLOOD UREA NITROGEN 21 MG/DL (7-18); CALCIUM LEVEL 8.7 MG/DL (8.5-10.1); CARBON DIOXIDE LEVEL 27 MEQ/L (21-32); CHLORIDE LEVEL 103 MEQ/L (98-107); CREATININE FOR GFR 1.19 MG/DL (0.70-1.30); GLOMERULAR FILTRATION RATE > 60.0 (>56); GLUCOSE, FASTING 205 MG/DL (70-100); MAGNESIUM LEVEL 1.7 MG/DL (1.8-2.4); PHOSPHORUS LEVEL 3.5 MG/DL (2.5-4.9); POTASSIUM SERUM 4.3 MEQ/L (3.5-5.1); PSA SCREENING 1.23 NG/ML (< 4.0); SODIUM LEVEL 140 MEQ/L (136-145)
[2018-02-28 17:14] LABS: CREATININE, URINE 97.6 MG/DL; MAU/CREAT RATIO 519.4 MCG/MG (0.0-30.0)
[2018-02-28 17:26] LABS: HIV 1&2 SCREEN CENTAUR NEGATIVE (NEGATIVE)
[2018-02-28 17:40] LABS: CHLAMYDIA DNA AMPLIFICATION NEGATIVE (NEGATIVE); GC DNA AMPLIFICATION NEGATIVE (NEGATIVE)
[2018-03-06 10:21] LABS: HEPATITIS C QUANTITATION 127630 IU/mL (.)
== END ==
LOC: M LAB 15:19
DX: Z71.1 Person with feared health complaint in whom no diagnosis is made (principal); Z79.899 Other long term (current) drug therapy; E11.65 Type 2 diabetes mellitus with hyperglycemia; R35.1 Nocturia
CPT/HCPCS: 83735

== ENCOUNTER 2018-03-16 15:41 | Outpatient (CLI) | payer MEDICARE ==
[2018-03-27] MEDS ORDERED: E-Z-PAQUE 96% w/w SUSP 176GM BTL As Ordered ×2 (08:08)
== END 2018-03-27 ==
LOC: M RAD 15:41
DX: M51.36 Other intervertebral disc degeneration, lumbar region (principal); K50.90 Crohn's disease, unspecified, without complications; M85.68 Other cyst of bone, other site
CPT/HCPCS: 72148; 74250

== ENCOUNTER → 2018-03-16 | Outpatient (CLI) | payer MEDICARE, MEDICAID | LOC: M RAD 08:00 | DX: M71.38 Other bursal cyst, other site (principal); M51.36 Other intervertebral disc degeneration, lumbar region | CPT/HCPCS: 72148 ==

== ENCOUNTER → 2018-04-02 | Outpatient (CLI) | payer MEDICARE | LOC: M RAD 08:15 | DX: R19.00 Intra-abdominal and pelvic swelling, mass and lump, unspecified site (principal) | CPT/HCPCS: 76705 ==

== ENCOUNTER → 2018-04-26 | Outpatient (CLI) | payer MEDICARE ==
[2018-04-26 17:08] LABS: ALBUMIN 3.7 GM/DL (3.2-5.2); ALKALINE PHOSPHATASE 62 U/L (45-117); ALT/SGPT 137 U/L (12-78); AST/SGOT 158 U/L (7-37); BILIRUBIN,DIRECT 0.2 MG/DL (0.0-0.2); BILIRUBIN,TOTAL 0.5 MG/DL (0.2-1.0); TOTAL PROTEIN 7.4 GM/DL (6.4-8.2)
[2018-05-02 08:27] LABS: ALPHA 2-MACROGLOBULIN 438 mg/dL (110-276); ALT 126 IU/L (0-55); APOLIPOPROTEIN A-1 104 mg/dL (101-178); FIBROSIS SCORE 0.77 (0.00-0.21); GGT 91 IU/L (0-65); HAPTOGLOBIN 116 mg/dL (34-200); NECROINFLAMM GRADE A3-Severe activity (.); TOTAL BILIRUBIN 0.4 mg/dL (0.0-1.2)
[2018-05-02 14:25] LABS: HEPATITIS C VIRUS GENOTYPE 1b (.)
== END ==
LOC: M LAB 15:39
DX: B18.2 Chronic viral hepatitis C (principal); K59.00 Constipation, unspecified
CPT/HCPCS: 84460

== ENCOUNTER → 2018-06-08 | Outpatient (CLI) | payer MEDICARE ==
[2018-06-08 13:21] LABS: ALPHA FETOPROTEIN TUMOR QUANT 4.1 NG/ML (<8.1); HIV 1&2 SCREEN CENTAUR NEGATIVE (NEGATIVE)
[2018-06-08 13:21] LABS: HEPATITIS B SURFACE ANTIBODY POSITIVE (POSITIVE)
[2018-06-09 14:23] LABS: HEPATITIS B CORE ANTIBODY IGG Positive (Negative)
[2018-06-09 14:23] LABS: HEPATITIS A IgG TOTAL Positive (Negative)
== END ==
LOC: M LAB 10:38
DX: B18.2 Chronic viral hepatitis C (principal); E83.42 Hypomagnesemia; E11.29 Type 2 diabetes mellitus with other diabetic kidney complication
CPT/HCPCS: 83735

== ENCOUNTER → 2018-06-08 | Outpatient (CLI) | payer MEDICARE ==
[2018-06-08 12:03] LABS: IONIZED CALCIUM 4.4 MG/DL (4.5-5.3)
[2018-06-08 13:09] LABS: ANION GAP 10 MEQ/L (8-16); BLOOD UREA NITROGEN 16 MG/DL (7-18); CALCIUM LEVEL 9.2 MG/DL (8.5-10.1); CARBON DIOXIDE LEVEL 28 MEQ/L (21-32); CHLORIDE LEVEL 100 MEQ/L (98-107); CREATININE FOR GFR 1.07 MG/DL (0.70-1.30); GLOMERULAR FILTRATION RATE > 60.0 (>56); GLUCOSE, FASTING 191 MG/DL (70-100); MAGNESIUM LEVEL 1.8 MG/DL (1.8-2.4); POTASSIUM SERUM 4.6 MEQ/L (3.5-5.1); SODIUM LEVEL 138 MEQ/L (136-145)
[2018-06-08 14:47] LABS: ESTIMATED AVERAGE GLUCOSE 269 MG/DL (60-110)
== END ==
LOC: M LAB 10:44
DX: E83.42 Hypomagnesemia (principal); B18.2 Chronic viral hepatitis C; E11.29 Type 2 diabetes mellitus with other diabetic kidney complication

== ENCOUNTER → 2018-06-08 | Outpatient (REF) | payer MEDICARE | LOC: M LABDRAWP 16:59 | DX: B18.2 Chronic viral hepatitis C (principal) ==

== ENCOUNTER → 2018-06-08 | Outpatient (REF) | payer MEDICARE | LOC: M LABDRAWP 13:49 | DX: B18.2 Chronic viral hepatitis C (principal) ==

== ENCOUNTER → 2018-06-12 | Outpatient (REF) | payer MEDICARE ==
[2018-06-12 17:14] LABS: CREATININE, URINE 44.7 MG/DL
== END ==
LOC: M SFHCPLAZ 15:33
DX: E11.29 Type 2 diabetes mellitus with other diabetic kidney complication (principal)
CPT/HCPCS: 82043

== ENCOUNTER 2018-07-17 04:50 | Emergency (ER) | payer MEDICARE ==
[2018-07-17] MEDS: methylPREDNISolone INJ 125 MG/2 ML VIAL (J2930) IM (05:26)
[2018-07-17] MEDS: KETOROLAC 60 MG/2 ML VIAL (J1885) IM (05:27)
== END 2018-07-17 05:55 | disposition home or self-care (01) ==
LOC: M ED 04:50
DX: M54.5 Low back pain (principal); G89.29 Other chronic pain; M25.551 Pain in right hip; M25.571 Pain in right ankle and joints of right foot; I10 Essential (primary) hypertension; I45.6 Pre-excitation syndrome; M47.816 Spondylosis without myelopathy or radiculopathy, lumbar region; F10.20 Alcohol dependence, uncomplicated; F17.200 Nicotine dependence, unspecified, uncomplicated; Z79.899 Other long term (current) drug therapy
CPT/HCPCS: J1885

== ENCOUNTER 2018-08-19 23:42 | Emergency (ER) | payer MEDICARE ==
[2018-08-20 00:11] LABS: HEMATOCRIT 31.4 % (42.0-52.0); HEMOGLOBIN 10.3 g/dl (13.5-17.5); MEAN CORPUSCULAR HEMOGLOBIN 29.9 pg (27.0-33.0); MEAN CORPUSCULAR HGB CONC 32.8 g/dl (32.0-36.5); MEAN CORPUSCULAR VOLUME 91.3 fl (80.0-96.0); PLATELET COUNT, AUTOMATED 267 10^3/uL (150-450); RED BLOOD COUNT 3.44 10^6/uL (4.30-6.10); WHITE BLOOD COUNT 4.4 10^3/uL (4.0-10.0)
[2018-08-20 00:43] LABS: AMPHETAMINES LEVEL URINE NEGATIVE (NEGATIVE); BARBITURATES URINE NEGATIVE (NEGATIVE); BENZODIAZEPINES URINE NEGATIVE (NEGATIVE); CANNABINOIDS URINE NEGATIVE (NEGATIVE); COCAINE METABOLITE URINE NEGATIVE (NEGATIVE); METHADONE URINE NEGATIVE (NEGATIVE); OPIATES URINE NEGATIVE (NEGATIVE); PHENCYCLIDINE URINE NEGATIVE (NEGATIVE)
[2018-08-20 01:08] LABS: ACETAMINOPHEN LEVEL < 2.0 UG/ML (10.0-30.0); ALBUMIN 3.2 GM/DL (3.2-5.2); ALBUMIN/GLOBULIN RATIO 0.89 (1.00-1.93); ALKALINE PHOSPHATASE 119 U/L (45-117); ALT/SGPT 25 U/L (12-78); ANION GAP 10 MEQ/L (8-16); AST/SGOT 27 U/L (7-37); BILIRUBIN,DIRECT 0.1 MG/DL (0.0-0.2); BILIRUBIN,TOTAL 0.2 MG/DL (0.2-1.0); BLOOD UREA NITROGEN 13 MG/DL (7-18); CALCIUM LEVEL 7.7 MG/DL (8.5-10.1); CARBON DIOXIDE LEVEL 26 MEQ/L (21-32); CHLORIDE LEVEL 106 MEQ/L (98-107); CREATININE FOR GFR 0.89 MG/DL (0.70-1.30); ETHYL ALCOHOL (ETHANOL) 0.182 % (0.000-0.010); GLOMERULAR FILTRATION RATE > 60.0 (>56); GLUCOSE, FASTING 108 MG/DL (70-100); POTASSIUM SERUM 3.5 MEQ/L (3.5-5.1); SALICYLATE LEVEL 4.2 MG/DL (5.0-30.0); SODIUM LEVEL 142 MEQ/L (136-145); THYROID STIMULATING HORMONE 0.742 uIU/ML (0.358-3.740); TOTAL PROTEIN 6.8 GM/DL (6.4-8.2)
== END 2018-08-20 09:06 | disposition home or self-care (01) ==
LOC: M ED 23:42
DX: F10.10 Alcohol abuse, uncomplicated (principal); Y90.0 Blood alcohol level of less than 20 mg/100 ml; Z59.0 Homelessness; E11.9 Type 2 diabetes mellitus without complications; I10 Essential (primary) hypertension; F33.9 Major depressive disorder, recurrent, unspecified; B19.20 Unspecified viral hepatitis C without hepatic coma; E78.5 Hyperlipidemia, unspecified; Z91.5 Personal history of self-harm; Z87.19 Personal history of other diseases of the digestive system; Z91.19 Patient's noncompliance with other medical treatment and regimen; Z79.899 Other long term (current) drug therapy; F17.210 Nicotine dependence, cigarettes, uncomplicated
CPT/HCPCS: G0480

== ENCOUNTER → 2018-10-16 | Outpatient (REF) | payer MEDICARE ==
[~2018-10-16] MED LIST changes: +AMIT25TA PO; -AMLO5TAB2 PO; +AMLO5TAB6 PO; +CHLO125TA PO; +FOLI1TAB11 PO; -FOLI1TAB4 PO; -GABA-282 PO; +GABA-843 PO; -GABA600T PO; +GABA600T4 PO; +HARV1TAB PO; +JANU50TA8; +LEXA1TAB PO; +LISI-538 PO; +LISI40TA; +MAGN1TAB25 PO; +MELO15TA28 PO; +METF10004 PO; +NYST1CRE15 EX; +OMEP20CA3 PO; +PREG100CA PO; +ROPI0.253 PO; +SILD50TA PO; +TRAM50TA2 PO; +VARE05TA PO; +VARE1TA PO; -VITA100T2 PO; +VITA100T8 PO
[2018-10-16 13:43] LABS: BASO # 0.1 10^3/uL (0.0-0.2); BASO % 1.1 % (0.0-1.0); EOS # 0.2 10^3/uL (0.0-0.50); EOS % 2.9 % (0.0-3.0); HEMATOCRIT 32.2 % (42.0-52.0); HEMOGLOBIN 10.3 g/dl (13.5-17.5); LYMPH # 1.6 10^3/uL (1.5-4.5); LYMPH % 28.4 % (24.0-44.0); MEAN CORPUSCULAR VOLUME 87.5 fl (80.0-96.0); MONO # 0.5 10^3/uL (0.0-0.8); NEUTROPHILS # 3.2 10^3/uL (1.8-7.7); NEUTROPHILS % 58.1 % (36.0-66.0); PLATELET COUNT, AUTOMATED 374 10^3/uL (150-450); RED BLOOD COUNT 3.68 10^6/uL (4.30-6.10); WHITE BLOOD COUNT 5.6 10^3/uL (4.0-10.0)
[2018-10-16 13:55] LABS: INR 0.91; PROTHROMBIN TIME 12.4 SECONDS (12.1-14.4)
[2018-10-16 14:11] LABS: ALBUMIN 3.7 GM/DL (3.2-5.2); ALT/SGPT 16 U/L (12-78); BILIRUBIN,TOTAL 0.2 MG/DL (0.2-1.0); BLOOD UREA NITROGEN 17 MG/DL (7-18); CALCIUM LEVEL 8.6 MG/DL (8.5-10.1); CARBON DIOXIDE LEVEL 30 MEQ/L (21-32); CHLORIDE LEVEL 101 MEQ/L (98-107); GLOMERULAR FILTRATION RATE > 60.0 (>56); GLUCOSE, FASTING 181 MG/DL (70-100); POTASSIUM SERUM 4.3 MEQ/L (3.5-5.1); SODIUM LEVEL 137 MEQ/L (136-145)
[2018-10-18 14:16] LABS: HEPATITIS C QUANTITATION HCV Not Detected IU/mL (.)
== END ==
LOC: M SFHCPLAZ 11:05
PROVIDERS: ATTEND Internal Medicine Infectious Disease
DX: B18.2 Chronic viral hepatitis C (principal); K70.30 Alcoholic cirrhosis of liver without ascites
CPT/HCPCS: 36415; 80053; 82105; 85025; 85610; 87522; G0463

== ENCOUNTER → 2019-01-14 | Outpatient (REF) | payer MEDICARE ==
[~2019-01-14] MED LIST changes: -EQ N TD; -MAGN1TAB25 PO; +MAGN1TAB26 PO; +NICO21DI37 TD
[2019-01-14 16:03] LABS: BASO # 0.1 10^3/uL (0.0-0.2); BASO % 0.8 % (0.0-1.0); EOS # 0.2 10^3/uL (0.0-0.50); EOS % 3.6 % (0.0-3.0); HEMATOCRIT 33.5 % (42.0-52.0); HEMOGLOBIN 10.2 g/dl (13.5-17.5); LYMPH # 1.7 10^3/uL (1.5-4.5); MEAN CORPUSCULAR HEMOGLOBIN 25.7 pg (27.0-33.0); MEAN CORPUSCULAR HGB CONC 30.4 g/dl (32.0-36.5); MEAN CORPUSCULAR VOLUME 84.4 fl (80.0-96.0); MONO # 0.6 10^3/uL (0.0-0.8); MONO % 9.5 % (0.0-5.0); NEUTROPHILS # 3.6 10^3/uL (1.8-7.7); NEUTROPHILS % 58.8 % (36.0-66.0); PLATELET COUNT, AUTOMATED 359 10^3/uL (150-450); RED BLOOD COUNT 3.97 10^6/uL (4.30-6.10); WHITE BLOOD COUNT 6.2 10^3/uL (4.0-10.0)
[2019-01-14 16:14] LABS: INR 0.94; PROTHROMBIN TIME 12.7 SECONDS (12.1-14.4)
[2019-01-14 16:18] LABS: ALBUMIN 3.9 GM/DL (3.2-5.2); ALT/SGPT 34 U/L (12-78); BILIRUBIN,TOTAL 0.3 MG/DL (0.2-1.0); BLOOD UREA NITROGEN 18 MG/DL (7-18); CALCIUM LEVEL 8.5 MG/DL (8.5-10.1); CARBON DIOXIDE LEVEL 28 MEQ/L (21-32); CHLORIDE LEVEL 104 MEQ/L (98-107); CREATININE FOR GFR 1.15 MG/DL (0.70-1.30); GLOMERULAR FILTRATION RATE > 60.0 (>56); GLUCOSE, FASTING 158 MG/DL (70-100); POTASSIUM SERUM 3.7 MEQ/L (3.5-5.1); SODIUM LEVEL 138 MEQ/L (136-145); TOTAL PROTEIN 6.9 GM/DL (6.4-8.2)
== END ==
LOC: M SFHCPLAZ 11:31
PROVIDERS: ATTEND Internal Medicine Infectious Disease
DX: B18.2 Chronic viral hepatitis C (principal); K70.30 Alcoholic cirrhosis of liver without ascites

== ENCOUNTER → 2019-01-23 | Outpatient (CLI) | payer MEDICARE ==
--- NOTE | 2019-01-23 09:11 | REP ---
Abdominal right upper quadrant ultrasound for cirrhosis: Comparison is 09/22/2017. The the patient has a cholecystectomy. There is no intrahepatic or extrahepatic biliary duct dilatation. The common biliary duct measures 5 mm in diameter. There are no hepatic masses. The hepatic parenchyma is mildly echogenic compatible with hepatocellular disease. The pancreas is obscured by bowel gas. The right kidney measures 12.0 x 5.8 x 4.0 cm and is normal size. There is no right renal hydronephrosis, calculus, mass or cyst. There is no abdominal right upper quadrant ascites. Impression: No hepatic masses are identified. There is no biliary duct dilatation. Cholecystectomy. Pancreas is obscured by bowel gas. Electronically Signed by Jose Juan Sandhu MD 01/23/2019 09:03 A
== END ==
LOC: M RAD 07:56
PROVIDERS: ATTEND Internal Medicine Infectious Disease
DX: K70.30 Alcoholic cirrhosis of liver without ascites (principal)

== ENCOUNTER 2019-02-06 14:03 | Emergency (ER) | payer MEDICARE ==
[~2019-02-06] VITALS: Ht 175.3 cm; Wt 88.6 kg
--- NOTE | 2019-02-06 14:39 | REP ---
Clinical: Trauma/fall with right-sided pain . Comparison: 04/23/2016 . Technique: PA and lateral. Findings: The mediastinum and cardiac silhouette are normal. The lung gillis are clear and without acute consolidation, effusion, or pneumothorax. The skeletal structures are intact and normal. Impression: 1. No acute cardiopulmonary process. Electronically Signed by Marcos Morrow MD 02/06/2019 02:30 P
[2019-02-06] MEDS ORDERED: NORCO, ANEXSIA 5/325MG TABLET (HYDROcodone/ACETAMINOPHEN) PO ONE (17:15)
[2019-02-06] MEDS ORDERED: KETOROLAC 60 MG/2 ML VIAL (J1885) IM ONE (17:15)
[2019-02-06 17:17] VITALS: BP 159/95
== END 2019-02-06 17:34 | disposition home or self-care (01) ==
LOC: M ED 14:03
DX: S20.211A Contusion of right front wall of thorax, initial encounter (principal); W19.XXXA Unspecified fall, initial encounter; Y92.89 Other specified places as the place of occurrence of the external cause; Y93.89 Activity, other specified; Y99.9 Unspecified external cause status; I10 Essential (primary) hypertension; E78.5 Hyperlipidemia, unspecified; F10.10 Alcohol abuse, uncomplicated; K50.919 Crohn's disease, unspecified, with unspecified complications; Z72.0 Tobacco use; Z79.899 Other long term (current) drug therapy
CPT/HCPCS: 71046; 94010; 96372; 99284; J1885

== ENCOUNTER 2019-03-01 23:13 | Emergency (ER) | payer MEDICARE ==
[~2019-03-01] VITALS: Ht 175.3 cm; Wt 88.9 kg
--- NOTE | 2019-03-02 01:21 | REPVR ---
EXAM: CT Head Without Contrast EXAM DATE/TIME: 03/02/2019 12:22 AM CLINICAL HISTORY: 54 years old, male; Injury or trauma; Fall; Initial encounter; Concussion / head injury; Additional info: Tr TECHNIQUE: Imaging protocol: Axial computed tomography images of the head without contrast. Radiation optimization: All CT scans at this facility use at least one of these dose optimization techniques: automated exposure control; mA and/or kV adjustment per patient size (includes targeted exams where dose is matched to clinical indication); or iterative reconstruction. COMPARISON: CT Head without contrast 03/31/2016 11:04 PM FINDINGS: Brain: There is no acute intracranial abnormality. Moderate prominence of ventricles and sulci representing volume loss. Moderate small vessel ischemic changes are seen. There is no mass, midline shift, or mass effect. Small encephalomalacia in left parietal lobe similar to previous study likely old infarct. There is no evidence of hemorrhage. There is no extra-axial fluid collection. Basal cisterns are patent. Ventricles: See Brain Finding. Bones/joints: Unremarkable. No acute fracture. Sinuses: Visualized sinuses are unremarkable. No fluid levels. Mastoid air cells: Visualized mastoid air cells are well aerated. No mastoid effusion. Soft tissues: Mild left posterior parietal soft tissue swelling. IMPRESSION: 1. Moderate volume loss and small vessel ischemic changes. 2. No acute intracranial abnormality. 3. Mild left posterior parietal soft tissue swelling. Electronically signed by: Flor Oden On 03/02/2019 01:21:40 AM
[2019-03-02 04:15] VITALS: BP 169/89
== END 2019-03-02 04:54 | disposition home or self-care (01) ==
LOC: M ED 03-02 01:22
DX: F10.129 Alcohol abuse with intoxication, unspecified (principal); S00.83XA Contusion of other part of head, initial encounter; X58.XXXA Exposure to other specified factors, initial encounter; Y92.89 Other specified places as the place of occurrence of the external cause; Z79.899 Other long term (current) drug therapy

== ENCOUNTER 2019-03-15 22:17 | Emergency (ER) | payer MEDICARE ==
[~2019-03-15] VITALS: Ht 175.3 cm; Wt 86.4 kg
[~2019-03-15 22:17] MED LIST changes: -OMEP20CA3 PO; +OMEP20CA4 PO
[2019-03-15] MEDS ORDERED: DERMABOND TOPICAL SKIN ADHESIVE TOP ONE (22:45)
[2019-03-15 23:06] LABS: HEMATOCRIT 26.9 % (42.0-52.0); HEMOGLOBIN 8.8 g/dl (13.5-17.5); MEAN CORPUSCULAR HEMOGLOBIN 27.2 pg (27.0-33.0); MEAN CORPUSCULAR HGB CONC 32.7 g/dl (32.0-36.5); MEAN CORPUSCULAR VOLUME 83.3 fl (80.0-96.0); PLATELET COUNT, AUTOMATED 199 10^3/uL (150-450); RED BLOOD COUNT 3.23 10^6/uL (4.30-6.10); WHITE BLOOD COUNT 4.2 10^3/uL (4.0-10.0)
[2019-03-15] MEDS ORDERED: AUGM875T28 PO (23:19)
[2019-03-15 23:20] LABS: INR 1.2; PROTHROMBIN TIME 14.9 SECONDS (11.8-14.0)
--- NOTE | 2019-03-15 23:25 | REPVR ---
EXAM: CT Head Without Contrast EXAM DATE/TIME: 03/15/2019 10:45 PM CLINICAL HISTORY: 54 years old, male; Injury or trauma; Fall; Initial encounter; Blunt trauma (contusions or hematomas); Consciousness not specified; Additional info: Fall on face TECHNIQUE: Imaging protocol: Axial computed tomography images of the head without contrast. Radiation optimization: All CT scans at this facility use at least one of these dose optimization techniques: automated exposure control; mA and/or kV adjustment per patient size (includes targeted exams where dose is matched to clinical indication); or iterative reconstruction. COMPARISON: CT Head without contrast 03/02/2019 12:14 AM FINDINGS: Brain: There is no acute intracranial abnormality. Moderate prominence of ventricles and sulci representing volume loss. Moderate small vessel ischemic changes are seen. There is no mass, midline shift, or mass effect. 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 There is no evidence of hemorrhage. There is no extra-axial fluid collection. Basal cisterns are patent. Ventricles: See Brain Finding. Bones/joints: Unremarkable. No acute fracture. Sinuses: Visualized sinuses are unremarkable. No fluid levels. Mastoid air cells: Visualized mastoid air cells are well aerated. No mastoid effusion. Soft tissues: Mild right inferior soft tissue swelling. IMPRESSION: 1. Moderate volume loss and small vessel ischemic changes. 2. No acute intracranial abnormality. 3. Mild right inferior soft tissue swelling. Electronically signed by: Flor Oden On 03/15/2019 23:24:40 PM
--- NOTE | 2019-03-15 23:28 | REPVR ---
EXAM: CT Cervical Spine Without Contrast EXAM DATE/TIME: 03/15/2019 10:45 PM CLINICAL HISTORY: 54 years old, male; Injury or trauma; Fall; Initial encounter; Blunt trauma; Additional info: Fall on face TECHNIQUE: Imaging protocol: Axial computed tomography images of the cervical spine without contrast. Coronal and sagittal reformatted images were created and reviewed. Radiation optimization: All CT scans at this facility use at least one of these dose optimization techniques: automated exposure control; mA and/or kV adjustment per patient size (includes targeted exams where dose is matched to clinical indication); or iterative reconstruction. COMPARISON: No relevant prior studies available. FINDINGS: Anterior cervical fusion at C5-C7 with intact surgical hardware. Mild DJD. Straightening of normal cervical lordosis likely secondary to muscular spasm or positioning. No acute fracture. Discs/Spinal canal/Neural foramina: No spinal stenosis. No neural foraminal narrowing. Soft tissues: Unremarkable. Lungs: Lung apices are normal. IMPRESSION: No acute findings. Electronically signed by: Flor Oden On 03/15/2019 23:28:07 PM
--- NOTE | 2019-03-15 23:33 | REPVR ---
EXAM: CT Maxillofacial Without Contrast EXAM DATE/TIME: 03/15/2019 10:45 PM CLINICAL HISTORY: 54 years old, male; Injury or trauma; Fall; Initial encounter; Blunt trauma (contusions or hematomas); Forehead; Additional info: Fall on face TECHNIQUE: Imaging protocol: Axial computed tomography images of the face without intravenous contrast. Coronal and sagittal reformatted images were created and reviewed. Radiation optimization: All CT scans at this facility use at least one of these dose optimization techniques: automated exposure control; mA and/or kV adjustment per patient size (includes targeted exams where dose is matched to clinical indication); or iterative reconstruction. COMPARISON: No relevant prior studies available. FINDINGS: Orbits: No acute intraorbital abnormality. Globes are unremarkable. Sinuses: Mucous retention cyst in right maxillary sinus. Mild mucosal thickening of ethmoidal air cells. Bones/joints: Deformity of the right zygomatic arch appears to be old. No associated soft tissue swelling. Acute fracture of the nasal bone with mild soft tissue swelling and foci of air. Soft tissues: Mild right inferior frontal soft tissue swelling. IMPRESSION: Deformity of the right zygomatic arch appears to be old. No associated soft tissue swelling. Acute fracture of the nasal bone with mild soft tissue swelling and foci of air. Electronically signed by: Flor Oden On 03/15/2019 23:33:17 PM
[2019-03-15 23:43] LABS: BLOOD UREA NITROGEN 12 MG/DL (7-18); CALCIUM LEVEL 7.4 MG/DL (8.5-10.1); CARBON DIOXIDE LEVEL 20 MEQ/L (21-32); CHLORIDE LEVEL 101 MEQ/L (98-107); CREATININE FOR GFR 0.91 MG/DL (0.70-1.30); ETHYL ALCOHOL (ETHANOL) 0.296 % (0.000-0.010); GLOMERULAR FILTRATION RATE > 60.0 (>56); GLUCOSE, FASTING 118 MG/DL (70-100); POTASSIUM SERUM 3.8 MEQ/L (3.5-5.1); SODIUM LEVEL 132 MEQ/L (136-145)
[2019-03-15 23:47] VITALS: BP 158/76
== END 2019-03-16 00:11 | disposition home or self-care (01) ==
LOC: M ED 22:17
DX: S02.2XXB Fracture of nasal bones, initial encounter for open fracture (principal); S00.81XA Abrasion of other part of head, initial encounter; S80.211A Abrasion, right knee, initial encounter; S80.212A Abrasion, left knee, initial encounter; F10.120 Alcohol abuse with intoxication, uncomplicated; W19.XXXA Unspecified fall, initial encounter; Y92.410 Unspecified street and highway as the place of occurrence of the external cause; E11.9 Type 2 diabetes mellitus without complications; I10 Essential (primary) hypertension; K21.9 Gastro-esophageal reflux disease without esophagitis; Z98.84 Bariatric surgery status; R56.9 Unspecified convulsions; Z79.899 Other long term (current) drug therapy
CPT/HCPCS: 12011; 36415; 70450; 70486; 72125; 80048; 85027; 85610; 99284; G0480

== ENCOUNTER → 2019-04-03 | Outpatient (REF) | payer MEDICARE ==
[~2019-04-03] MED LIST changes: +AUGM875T28 PO; +KEFL500C17 PO; +OMEP1CAP73 PO; -OMEP20CA4 PO
[2019-04-03 12:15] LABS: BASO % 0.9 % (0.0-1.0); EOS # 0.2 10^3/uL (0.0-0.50); EOS % 4.8 % (0.0-3.0); HEMATOCRIT 30.4 % (42.0-52.0); HEMOGLOBIN 9.5 g/dl (13.5-17.5); LYMPH # 0.9 10^3/uL (1.5-4.5); LYMPH % 19.8 % (24.0-44.0); MEAN CORPUSCULAR HEMOGLOBIN 27.6 pg (27.0-33.0); MEAN CORPUSCULAR HGB CONC 31.3 g/dl (32.0-36.5); MEAN CORPUSCULAR VOLUME 88.4 fl (80.0-96.0); MONO # 0.6 10^3/uL (0.0-0.8); MONO % 12.3 % (0.0-5.0); NEUTROPHILS # 2.8 10^3/uL (1.8-7.7); NEUTROPHILS % 61.8 % (36.0-66.0); PLATELET COUNT, AUTOMATED 271 10^3/uL (150-450); RED BLOOD COUNT 3.44 10^6/uL (4.30-6.10); WHITE BLOOD COUNT 4.6 10^3/uL (4.0-10.0)
[2019-04-03 12:34] LABS: BLOOD UREA NITROGEN 21 MG/DL (7-18); CALCIUM LEVEL 8.9 MG/DL (8.5-10.1); CARBON DIOXIDE LEVEL 28 MEQ/L (21-32); CHLORIDE LEVEL 104 MEQ/L (98-107); CHOLESTEROL LEVEL 134 MG/DL (<200); CHOLESTEROL RISK RATIO 2.436 (<5); CREATININE FOR GFR 0.98 MG/DL (0.70-1.30); FREE T4 0.82 NG/DL (0.76-1.46); GLOMERULAR FILTRATION RATE > 60.0 (>56); GLUCOSE, FASTING 150 MG/DL (70-100); HDL CHOLESTEROL 55 MG/DL (>40); IRON (FE) 36 UG/DL (65-175); LDL CHOLESTEROL 61 MG/DL (<100); NON-HDL-C 79 MG/DL; POTASSIUM SERUM 4.3 MEQ/L (3.5-5.1); SODIUM LEVEL 138 MEQ/L (136-145); TOTAL 25(OH) VITAMIN D 22.7 NG/ML (30.0-100.0); TRIGLYCERIDES LEVEL 90 MG/DL (<150)
== END ==
LOC: M SFHCPLAZ 09:42
PROVIDERS: ATTEND Family Medicine
DX: K50.90 Crohn's disease, unspecified, without complications (principal); D50.9 Iron deficiency anemia, unspecified; F32.9 Major depressive disorder, single episode, unspecified; E11.65 Type 2 diabetes mellitus with hyperglycemia; E78.5 Hyperlipidemia, unspecified; I10 Essential (primary) hypertension; E55.9 Vitamin D deficiency, unspecified
CPT/HCPCS: 36415; 80048; 80061; 82306; 83036; 83540; 84439; 84443; 85025; G0463

== ENCOUNTER 2019-05-15 16:12 | Emergency (ER) | payer MEDICARE ==
[~2019-05-15] VITALS: Ht 175.3 cm; Wt 89.2 kg
[~2019-05-15 16:12] MED LIST changes: -KEFL500C17 PO; -OMEP1CAP73 PO; +OMEP20CA4 PO
[2019-05-15] MEDS ORDERED: LABETALOL HCL 100 MG/20 ML VIAL IV STA (20:19)
[2019-05-15] MEDS ORDERED: GABA-843 PO (20:29)
[2019-05-15] MEDS ORDERED: TRAM50TA2 PO (20:29)
[2019-05-15] MEDS ORDERED: NS 1,000 ML IV ONE (20:30)
[2019-05-15] MEDS ORDERED: ACETAMINOPHEN 325 MG TAB PO ONE (20:30)
[2019-05-15] MEDS ORDERED: AMPICILLIN SOD/SULBACTAM SOD 3 GM in D5W MINI-BAG PLUS 100 ML IV ONE (20:30)
[2019-05-15] MEDS ORDERED: LORazepam 2 MG/ML VIAL (J2060) IV STA (20:32)
[2019-05-15 20:38] LABS: BASO # 0.1 10^3/uL (0.0-0.2); BASO % 0.5 % (0.0-1.0); EOS % 0.1 % (0.0-3.0); HEMATOCRIT 29.4 % (42.0-52.0); HEMOGLOBIN 9.9 g/dl (13.5-17.5); LYMPH # 1.2 10^3/uL (1.5-5.0); MEAN CORPUSCULAR HEMOGLOBIN 27.1 pg (27.0-33.0); MEAN CORPUSCULAR HGB CONC 33.7 g/dl (32.0-36.5); MEAN CORPUSCULAR VOLUME 80.5 fl (80.0-96.0); MONO # 1.1 10^3/uL (0.0-0.8); MONO % 11.4 % (0.0-5.0); NEUTROPHILS # 7.1 10^3/uL (1.5-8.5); NEUTROPHILS % 74.6 % (36.0-66.0); PLATELET COUNT, AUTOMATED 265 10^3/uL (150-450); RED BLOOD COUNT 3.65 10^6/uL (4.30-6.10); WHITE BLOOD COUNT 9.5 10^3/uL (4.0-10.0)
[2019-05-15 20:55] VITALS: BP 182/84
[2019-05-15 21:01] LABS: ALBUMIN 3.6 GM/DL (3.2-5.2); ALT/SGPT 24 U/L (12-78); BILIRUBIN,DIRECT 0.3 MG/DL (0.0-0.2); BILIRUBIN,TOTAL 0.7 MG/DL (0.2-1.0); BLOOD UREA NITROGEN 13 MG/DL (7-18); CALCIUM LEVEL 8.6 MG/DL (8.5-10.1); CARBON DIOXIDE LEVEL 27 MEQ/L (21-32); CHLORIDE LEVEL 97 MEQ/L (98-107); CREATININE FOR GFR 1.04 MG/DL (0.70-1.30); GLOMERULAR FILTRATION RATE > 60.0 (>56); GLUCOSE, FASTING 189 MG/DL (70-100); POTASSIUM SERUM 4.1 MEQ/L (3.5-5.1); SODIUM LEVEL 133 MEQ/L (136-145); TOTAL PROTEIN 6.9 GM/DL (6.4-8.2)
[2019-05-15] MEDS ORDERED: AUGM875T28 PO (22:39)
[2019-05-15 22:45] VITALS: BP 182/84
== END 2019-05-15 22:52 | disposition home or self-care (01) ==
LOC: M ED 16:12
DX: L03.116 Cellulitis of left lower limb (principal); E11.9 Type 2 diabetes mellitus without complications; I10 Essential (primary) hypertension; E78.5 Hyperlipidemia, unspecified; F17.200 Nicotine dependence, unspecified, uncomplicated; Z79.899 Other long term (current) drug therapy
CPT/HCPCS: 80048; 80076; 83605; 85025; 87040; 87070; 87077; 87186; 93041; 94760; 96374; 96375; 99285; J2060

== ENCOUNTER → 2019-05-20 | Outpatient (REF) | payer MEDICARE ==
[~2019-05-20] MED LIST changes: +KEFL500C17 PO
[2019-05-20 14:07] LABS: FERRITIN 23 NG/ML (26-388)
[2019-05-20 15:11] LABS: VITAMIN B12 LEVEL 202 PG/ML (247-911)
[2019-05-23 00:07] LABS: ANTI-RETICULIN ANTIBODY IGA Negative titer (Neg:<1:2.5); TRANSFERRIN 336 mg/dL (200-370)
== END ==
LOC: M SFHCPLAZ 09:26
PROVIDERS: ATTEND Family Medicine
DX: D50.9 Iron deficiency anemia, unspecified (principal); K50.90 Crohn's disease, unspecified, without complications
CPT/HCPCS: 36415; 82607; 82728; 84466; 86256; G0463

== ENCOUNTER 2019-05-31 10:25 | Emergency (ER) | payer MEDICARE ==
[~2019-05-31] VITALS: Ht 175.3 cm; Wt 84.1 kg
[~2019-05-31 10:25] MED LIST changes: -KEFL500C17 PO
[2019-05-31 11:53] LABS: BASO # 0.1 10^3/uL (0.0-0.2); BASO % 1.1 % (0.0-1.0); EOS # 0.1 10^3/uL (0.0-0.5); EOS % 2.9 % (0.0-3.0); HEMATOCRIT 30.4 % (42.0-52.0); HEMOGLOBIN 9.9 g/dl (13.5-17.5); LYMPH # 1.3 10^3/uL (1.5-5.0); LYMPH % 28.7 % (24.0-44.0); MEAN CORPUSCULAR HEMOGLOBIN 26.6 pg (27.0-33.0); MEAN CORPUSCULAR HGB CONC 32.6 g/dl (32.0-36.5); MEAN CORPUSCULAR VOLUME 81.7 fl (80.0-96.0); MONO # 0.3 10^3/uL (0.0-0.8); MONO % 6.1 % (0.0-5.0); NEUTROPHILS # 2.7 10^3/uL (1.5-8.5); PLATELET COUNT, AUTOMATED 393 10^3/uL (150-450); RED BLOOD COUNT 3.72 10^6/uL (4.30-6.10); WHITE BLOOD COUNT 4.4 10^3/uL (4.0-10.0)
[2019-05-31 12:12] LABS: ERYTHROCYTE SEDIMENTATION RATE 34 mm/hr (0-20)
[2019-05-31 12:22] LABS: BLOOD UREA NITROGEN 12 MG/DL (7-18); C REACTIVE PROTEIN QUANTITATIV < 0.30 MG/DL (0.00-0.30); CALCIUM LEVEL 8.7 MG/DL (8.5-10.1); CARBON DIOXIDE LEVEL 24 MEQ/L (21-32); CHLORIDE LEVEL 105 MEQ/L (98-107); CREATININE FOR GFR 0.88 MG/DL (0.70-1.30); GLOMERULAR FILTRATION RATE > 60.0 (>56); GLUCOSE, FASTING 163 MG/DL (70-100); POTASSIUM SERUM 4.3 MEQ/L (3.5-5.1); SODIUM LEVEL 140 MEQ/L (136-145)
--- NOTE | 2019-05-31 13:00 | REP ---
Bilateral lower extremity deep vein duplex ultrasound The deep veins demonstrate normal compression, normal Doppler color flow and normal Doppler waveforms with respiration and augmentation from the popliteal vein to the common femoral vein. Impression: There is no deep vein thrombus on the right or the left. Electronically Signed by Jose Juan Sandhu MD 05/31/2019 12:51 P
[2019-05-31] MEDS ORDERED: ceFAZolin SOD 1 GM in D5W MINI-BAG PLUS 50 ML IV ONE (13:45)
[2019-05-31] MEDS ORDERED: KEFL500C17 PO (13:54)
[2019-05-31] MEDS ORDERED: ONDANSETRON 4MG/2ML VIAL (J2405) As Ordered ONE (14:38)
[2019-05-31] MEDS ORDERED: ONDANSETRON 4MG/2ML VIAL (J2405) IV ONE (15:00)
[2019-05-31 15:11] VITALS: BP 172/81
== END 2019-05-31 15:12 | disposition home or self-care (01) ==
LOC: M ED 10:25
DX: L03.116 Cellulitis of left lower limb (principal); S81.802A Unspecified open wound, left lower leg, initial encounter; X58.XXXA Exposure to other specified factors, initial encounter; Y92.89 Other specified places as the place of occurrence of the external cause; E11.9 Type 2 diabetes mellitus without complications; I10 Essential (primary) hypertension; K21.9 Gastro-esophageal reflux disease without esophagitis; D50.9 Iron deficiency anemia, unspecified; E53.8 Deficiency of other specified B group vitamins; K50.90 Crohn's disease, unspecified, without complications; I45.6 Pre-excitation syndrome; Z98.84 Bariatric surgery status; Z79.899 Other long term (current) drug therapy; F17.210 Nicotine dependence, cigarettes, uncomplicated
CPT/HCPCS: 80048; 85025; 85652; 86140; 87040; 93970; 96365; 96375; 99284; J0690; J2405

== ENCOUNTER → 2019-08-01 | Outpatient (REF) | payer MEDICARE ==
[~2019-08-01] MED LIST changes: +KEFL500C17 PO
[2019-08-01 17:21] LABS: BASO % 0.6 % (0.0-1.0); EOS # 0.3 10^3/uL (0.0-0.5); EOS % 4.9 % (0.0-3.0); HEMATOCRIT 31.2 % (42.0-52.0); HEMOGLOBIN 9.5 g/dl (13.5-17.5); LYMPH # 1.8 10^3/uL (1.5-5.0); LYMPH % 27.2 % (24.0-44.0); MEAN CORPUSCULAR HEMOGLOBIN 26.5 pg (27.0-33.0); MEAN CORPUSCULAR HGB CONC 30.4 g/dl (32.0-36.5); MEAN CORPUSCULAR VOLUME 87.2 fl (80.0-96.0); MONO # 0.7 10^3/uL (0.0-0.8); MONO % 9.9 % (0.0-5.0); NEUTROPHILS # 3.7 10^3/uL (1.5-8.5); NEUTROPHILS % 56.9 % (36.0-66.0); PLATELET COUNT, AUTOMATED 266 10^3/uL (150-450); RED BLOOD COUNT 3.58 10^6/uL (4.30-6.10); WHITE BLOOD COUNT 6.6 10^3/uL (4.0-10.0)
[2019-08-01 17:35] LABS: HEMOGLOBIN A1c 7.8 %
[2019-08-01 17:43] LABS: ALBUMIN 3.6 GM/DL (3.2-5.2); ALT/SGPT 26 U/L (12-78); BILIRUBIN,TOTAL 0.2 MG/DL (0.2-1.0); BLOOD UREA NITROGEN 18 MG/DL (7-18); CALCIUM LEVEL 8.7 MG/DL (8.5-10.1); CARBON DIOXIDE LEVEL 28 MEQ/L (21-32); CHLORIDE LEVEL 103 MEQ/L (98-107); CREATININE FOR GFR 1.23 MG/DL (0.70-1.30); FERRITIN 5 NG/ML (26-388); GLOMERULAR FILTRATION RATE > 60.0 (>56); GLUCOSE, FASTING 220 MG/DL (70-100); IRON (FE) 21 UG/DL (65-175); POTASSIUM SERUM 4.2 MEQ/L (3.5-5.1); SODIUM LEVEL 137 MEQ/L (136-145); TOTAL PROTEIN 6.7 GM/DL (6.4-8.2)
[2019-08-01 17:48] LABS: TOTAL 25(OH) VITAMIN D 38.3 NG/ML (30.0-100.0)
[2019-08-01 17:49] LABS: PTH INTACT 104.9 PG/ML (18.5-88.0)
== END ==
LOC: M SFHCPLAZ 15:14
PROVIDERS: ATTEND Physician Assistant Medical
DX: I10 Essential (primary) hypertension (principal); R30.0 Dysuria; E11.65 Type 2 diabetes mellitus with hyperglycemia; D50.9 Iron deficiency anemia, unspecified; E55.9 Vitamin D deficiency, unspecified

== ENCOUNTER → 2019-08-05 | Outpatient (REF) | payer MEDICARE ==
[2019-08-05 11:37] LABS: APPEARANCE, URINE CLEAR (CLEAR); BACTERIA, URINE AUTO NEGATIVE (NEGATIVE); BILIRUBIN, URINE AUTO NEGATIVE (NEGATIVE); BLOOD, URINE BLOOD NEGATIVE (NEGATIVE); COLOR, URINE STRAW (YELLOW); GLUCOSE, URINE (UA) AUTO 1+ mg/dL (NEGATIVE); KETONE, URINE AUTO NEGATIVE (NEGATIVE); LEUKOCYTE ESTERASE, URINE AUTO NEGATIVE (NEGATIVE); NITRITE, URINE AUTO NEGATIVE (NEGATIVE); PROTEIN, URINE AUTO 1+ mg/dL (NEGATIVE); RBC, URINE AUTO 1 /HPF (0-3); SQUAMOUS EPITHELIAL CELL UR AU 0 /HPF (0-6); UROBILINOGEN, URINE AUTO 0.2 mg/dL (0.0-2.0); WBC, URINE AUTO 0 /HPF (0-3)
== END ==
LOC: M SFHCPLAZ 09:26
PROVIDERS: ATTEND Physician Assistant Medical
DX: R30.0 Dysuria (principal)

== ENCOUNTER → 2019-09-23 | Outpatient (CLI) | payer MEDICARE, MEDICAID ==
[~2019-09-23] MED LIST changes: +OMEP1CAP73 PO; -OMEP20CA4 PO
[2019-09-23 14:44] LABS: BASO % 0.5 % (0.0-1.0); EOS # 0.2 10^3/uL (0.0-0.5); EOS % 3.4 % (0.0-3.0); HEMATOCRIT 34.7 % (42.0-52.0); LYMPH # 1.1 10^3/uL (1.5-5.0); LYMPH % 19.9 % (24.0-44.0); MEAN CORPUSCULAR HEMOGLOBIN 28.2 pg (27.0-33.0); MEAN CORPUSCULAR HGB CONC 31.7 g/dl (32.0-36.5); MONO # 0.4 10^3/uL (0.0-0.8); MONO % 6.6 % (0.0-5.0); NEUTROPHILS # 3.9 10^3/uL (1.5-8.5); NEUTROPHILS % 69.4 % (36.0-66.0); PLATELET COUNT, AUTOMATED 300 10^3/uL (150-450); WHITE BLOOD COUNT 5.6 10^3/uL (4.0-10.0)
[2019-09-23 15:22] LABS: ALBUMIN 3.3 GM/DL (3.2-5.2); BILIRUBIN,TOTAL 0.3 MG/DL (0.2-1.0); CALCIUM LEVEL 8.1 MG/DL (8.5-10.1); CHOLESTEROL RISK RATIO 4.176 (<5); CREATININE FOR GFR 1.42 MG/DL (0.70-1.30); GLOMERULAR FILTRATION RATE 55.5 (>56); POTASSIUM SERUM 4.3 MEQ/L (3.5-5.1); TOTAL PROTEIN 6.3 GM/DL (6.4-8.2)
[2019-09-23 16:37] LABS: HEMOGLOBIN A1c 9.8 %
== END ==
LOC: M PLALAB 12:07
PROVIDERS: ATTEND Physician Assistant Medical
DX: D50.9 Iron deficiency anemia, unspecified (principal); E11.65 Type 2 diabetes mellitus with hyperglycemia; E78.5 Hyperlipidemia, unspecified

== ENCOUNTER → 2019-10-24 | Outpatient (CLI) | payer MEDICARE, MEDICAID, OTHER ==
[2019-10-24 14:51] LABS: INR 0.96; PROTHROMBIN TIME 12.5 SECONDS (11.8-14.0)
[2019-10-24 14:52] LABS: PARTIAL THROMBOPLASTIN TIME 24.9 SECONDS (25.0-38.4)
[2019-10-24 14:56] LABS: PLATELET COUNT, AUTOMATED 328 10^3/uL (150-450)
[2019-10-24 15:24] LABS: FOLLICLE STIMULATING HORMONE 8.2 mIU/mL (1.4-18.1); FREE T4 0.99 NG/DL (0.76-1.46); LUTEINIZING HORMONE 14.3 mIU/mL (1.5-9.3); PROLACTIN 7.2 NG/ML (2.1-17.7); THYROID STIMULATING HORMONE 1.26 uIU/ML (0.358-3.740)
[2019-10-27 00:06] LABS: TESTOSTERONE FREE (DIRECT) 6.1 pg/mL (7.2-24.0)
== END ==
LOC: M PLALAB 12:42
PROVIDERS: ATTEND Physician Assistant Medical
DX: Z01.812 Encounter for preprocedural laboratory examination (principal); N52.9 Male erectile dysfunction, unspecified; D69.1 Qualitative platelet defects; Z79.899 Other long term (current) drug therapy
CPT/HCPCS: 36415; 83001; 83002; 84146; 84402; 84403; 84439; 84443; 85027; 85610; 85730; 93005; G0463

== ENCOUNTER → 2019-11-06 | Outpatient (CLI) | payer OTHER, MEDICAID ==
--- NOTE | 2019-11-06 18:26 | REP ---
SCROTAL ULTRASOUND: Real-time sonographic evaluation of the scrotum and contents performed. Testicles are normal in size and echotexture, right testicle measuring 3.9 x 2.0 x 2.6 cm and left testicle 3.9 x 1.7 x 2.7 cm. There is no testicular mass or torsion. Blood flow is seen in each testicle with duplex Doppler evaluation. There appears to be a 2 mm appendix testis on the right. No hydrocele is seen. There are mildly prominent vessels on the left measuring up to 4 to 5 mm in diameter compatible with a small varicocele. With Valsalva maneuver the venous diameter increases by 1 mm. IMPRESSION: Small left varicocele. Normal appearing testicles. Electronically Signed by Jose Juan York MD 11/07/2019 10:26 A
== END ==
LOC: M RAD 16:00
PROVIDERS: ATTEND Physician Assistant Medical
DX: E29.1 Testicular hypofunction (principal); I86.1 Scrotal varices

== ENCOUNTER → 2019-11-14 | Outpatient (REF) | payer OTHER, MEDICAID ==
[2019-11-14 18:12] LABS: HEMOGLOBIN A1c 8.7 %
== END ==
LOC: M SFHCPLAZ 14:45
PROVIDERS: ATTEND Physician Assistant Medical
DX: E11.65 Type 2 diabetes mellitus with hyperglycemia (principal)
CPT/HCPCS: 36415; 83036; G0463

== ENCOUNTER 2020-03-20 13:46 | Emergency (ER) | payer OTHER, MEDICAID ==
[~2020-03-20] VITALS: Ht 175.3 cm; Wt 77.3 kg
[~2020-03-20 13:46] MED LIST changes: +CYCL-707 PO; -CYCL10TA PO; +OXYC-1 PO; -OXYC15TA76 PO
[2020-03-20 14:40] LABS: BASO % 0.3 % (0.0-1.0); EOS % 0.2 % (0.0-3.0); HEMATOCRIT 22.2 % (42.0-52.0); HEMOGLOBIN 7.3 g/dl (13.5-17.5); LYMPH # 1.4 10^3/uL (1.5-5.0); LYMPH % 22.2 % (24.0-44.0); MEAN CORPUSCULAR HEMOGLOBIN 31.5 pg (27.0-33.0); MEAN CORPUSCULAR HGB CONC 32.9 g/dl (32.0-36.5); MEAN CORPUSCULAR VOLUME 95.7 fl (80.0-96.0); MONO # 0.3 10^3/uL (0.0-0.8); MONO % 3.9 % (0.0-5.0); NEUTROPHILS # 4.6 10^3/uL (1.5-8.5); NEUTROPHILS % 73.1 % (36.0-66.0); PLATELET COUNT, AUTOMATED 146 10^3/uL (150-450); RED BLOOD COUNT 2.32 10^6/uL (4.30-6.10); WHITE BLOOD COUNT 6.3 10^3/uL (4.0-10.0)
[2020-03-20 14:50] LABS: INR 1.14; PROTHROMBIN TIME 14.3 SECONDS (11.8-14.0)
[2020-03-20 15:10] LABS: ALBUMIN 2.7 GM/DL (3.2-5.2); ALT/SGPT 31 U/L (12-78); AMYLASE 21 U/L (25-115); BILIRUBIN,DIRECT 0.2 MG/DL (0.0-0.2); BILIRUBIN,TOTAL 0.4 MG/DL (0.2-1.0); BLOOD UREA NITROGEN 19 MG/DL (7-18); CALCIUM LEVEL 7.6 MG/DL (8.5-10.1); CARBON DIOXIDE LEVEL 20 MEQ/L (21-32); CHLORIDE LEVEL 100 MEQ/L (98-107); CREATININE FOR GFR 1.23 MG/DL (0.70-1.30); GLOMERULAR FILTRATION RATE > 60.0 (>56); GLUCOSE, FASTING 207 MG/DL (70-100); LIPASE 34 U/L (73-393); POTASSIUM SERUM 4.1 MEQ/L (3.5-5.1); SODIUM LEVEL 132 MEQ/L (136-145); TOTAL PROTEIN 5.4 GM/DL (6.4-8.2)
[2020-03-20] MEDS ORDERED: OMEG1CAP4 (15:41)
[2020-03-20] MEDS ORDERED: NALT50TA4 (15:41)
[2020-03-20] MEDS ORDERED: LIDO2.5C15 (15:41)
[2020-03-20] MEDS ORDERED: ESOM40CA35 (15:41)
[2020-03-20] MEDS ORDERED: HYDR50TA70 (15:41)
[2020-03-20] MEDS ORDERED: DULO1CAP5 (15:41)
[2020-03-20] MEDS ORDERED: DICL1GEL3 (15:41)
[2020-03-20] MEDS ORDERED: DULO1CAP6 (15:41)
[2020-03-20] MEDS ORDERED: MULTIVITAMIN -ADULT INJECTION 10 ML, THIAMINE INJection 100 MG, FOLIC ACID 1 MG in NS 1... IV ONE (16:00)
[2020-03-20] MEDS ORDERED: ISOVUE-370 76% 100ML VIAL As Ordered ONE (16:06)
[2020-03-20 16:55] LABS: CK-MB VALUE MASS 7.6 NG/ML (<3.6); MB/CK RELATIVE INDEX 1.1 (< OR =4); TROPONIN I 0.04 NG/ML (< 0.10)
[2020-03-20 17:33] LABS: ACETAMINOPHEN LEVEL < 2.0 UG/ML (10.0-30.0); ETHYL ALCOHOL (ETHANOL) 0.297 % (0.000-0.010); SALICYLATE LEVEL 2.9 MG/DL (5.0-30.0)
[2020-03-20 17:55] VITALS: BP 153/75
[2020-03-20 18:10] VITALS: BP 161/76
[2020-03-20 18:55] VITALS: BP 157/97
[2020-03-20 19:19] VITALS: BP 162/87
[2020-03-20 19:35] VITALS: BP 149/76
[2020-03-20 20:29] VITALS: BP 168/94
--- NOTE | 2020-03-20 21:39 | ECGEPIP ---
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
--- NOTE | 2020-03-21 13:53 | REP ---
CHEST: Single view. There is no evidence of acute infiltrate. No pleural effusion is seen. The heart is normal in size. The mediastinal silhouette is unremarkable. The visualized osseous structures are intact. There is an old posterolateral left 9th rib fracture. IMPRESSION: No acute pulmonary disease. Electronically Signed by Jose Juan York MD 03/22/2020 11:32 P
--- NOTE | 2020-03-21 14:59 | REP ---
CT ABDOMEN AND PELVIS WITH IV CONTRAST: TECHNIQUE: Axial contrast-enhanced images from the lung bases to the pubic symphysis using 100 mL Isovue-370 intravenous contrast material with multiplanar reformations. COMPARISON: 09/22/2017 Visualized lung bases demonstrate no infiltrate. The liver demonstrates no mass. The patient has had a prior cholecystectomy. Common bile duct has an approximate diameter of 7 mm. There appears to be a calculus in the distal end of the common bile duct measuring 10 mm. There also appears to be an adjacent 4 mm calculus in the distal pancreatic duct, which is moderately dilated up to 7 mm. No definite pancreatic mass is seen. Spleen is normal in size with no intrinsic abnormality. No adrenal gland abnormality is seen. There is a small cyst of the left kidney. There is no hydronephrosis bilaterally. There is no abdominal aortic aneurysm. There are moderate atherosclerotic calcifications. There is an IVC filter present. There is no adenopathy, free air, or free fluid. I see no bowel wall thickening. There is evidence of prior abdominal hernia repair and inguinal hernia repair. No pelvic mass is seen. Urinary bladder is unremarkable. There are degenerative changes of the spine. There are old left lower rib fractures. There is metallic fixation in the region of the right pelvic bones. IMPRESSION: Status post cholecystectomy. There appears to be a 10 mm stone in the distal end of the common bile duct and an adjacent 4 mm stone in the distal pancreatic duct. Common bile duct has an approximate diameter of 7 mm maximally. Pancreatic duct is moderately dilated up to 7 mm. Status post gastric bypass surgery. No free air or free fluid. No bowel wall thickening. Electronically Signed by Jose Juan York MD 03/22/2020 11:34 P
== END 2020-03-20 20:34 | disposition short-term general hospital (02) ==
LOC: M ED 13:46 → EDBD 13:46 → M ED 20:34
DX: K92.2 Gastrointestinal hemorrhage, unspecified (principal); R45.851 Suicidal ideations; D64.9 Anemia, unspecified; R00.0 Tachycardia, unspecified; R94.31 Abnormal electrocardiogram [ECG] [EKG]; E10.9 Type 1 diabetes mellitus without complications; F41.9 Anxiety disorder, unspecified; F32.9 Major depressive disorder, single episode, unspecified; Z72.0 Tobacco use; Z98.84 Bariatric surgery status; Z90.49 Acquired absence of other specified parts of digestive tract; R93.3 Abnormal findings on diagnostic imaging of other parts of digestive tract
CPT/HCPCS: 36415; 71045; 74177; 80048; 80076; 81001; 82150; 82550; 82553; 83605; 83690; 84484; 85025; 85610; 85730; 86850; 86900; 86901; 86920; 87040; 93005; 93041; 96365; 96366; 99285; G0480; J3411; P9016; Q9967; U0002

== ENCOUNTER → 2020-05-25 | Outpatient (CLI) | payer OTHER, MEDICAID ==
[~2020-05-25] MED LIST changes: +AMLO1TAB24 PO; -AMLO5TAB6 PO; +DICL1GEL3; +DULO1CAP5; +DULO1CAP6; +ESOM40CA35; +HYDR50TA70; +LIDO2.5C15; +NALT50TA4; +OMEG1CAP4
[2020-05-25 15:03] LABS: HEMATOCRIT 29.3 % (42.0-52.0); HEMOGLOBIN 9.2 g/dl (13.5-17.5); MEAN CORPUSCULAR HEMOGLOBIN 27.8 pg (27.0-33.0); MEAN CORPUSCULAR HGB CONC 31.4 g/dl (32.0-36.5); MEAN CORPUSCULAR VOLUME 88.5 fl (80.0-96.0); PLATELET COUNT, AUTOMATED 286 10^3/uL (150-450); RED BLOOD COUNT 3.31 10^6/uL (4.30-6.10); WHITE BLOOD COUNT 4.7 10^3/uL (4.0-10.0)
[2020-05-25 15:06] LABS: ALBUMIN 3.4 GM/DL (3.2-5.2); BILIRUBIN,DIRECT 0.1 MG/DL (0.0-0.2); BILIRUBIN,TOTAL 0.4 MG/DL (0.2-1.0); TOTAL PROTEIN 6.7 GM/DL (6.4-8.2)
== END ==
LOC: M PLALAB 13:33
PROVIDERS: ATTEND Internal Medicine Gastroenterology
DX: K28.9 Gastrojejunal ulcer, unspecified as acute or chronic, without hemorrhage or perforation (principal); K80.50 Calculus of bile duct without cholangitis or cholecystitis without obstruction

== ENCOUNTER → 2020-06-03 | Outpatient (CLI) | payer OTHER, MEDICAID ==
[2020-06-03 18:00] LABS: HEMATOCRIT 30.7 % (42.0-52.0); HEMOGLOBIN 9.4 g/dl (13.5-17.5); MEAN CORPUSCULAR HEMOGLOBIN 27.7 pg (27.0-33.0); MEAN CORPUSCULAR HGB CONC 30.6 g/dl (32.0-36.5); MEAN CORPUSCULAR VOLUME 90.6 fl (80.0-96.0); PLATELET COUNT, AUTOMATED 290 10^3/uL (150-450); RED BLOOD COUNT 3.39 10^6/uL (4.30-6.10); WHITE BLOOD COUNT 4.5 10^3/uL (4.0-10.0)
[2020-06-03 18:01] LABS: ALBUMIN 3.3 GM/DL (3.2-5.2); BILIRUBIN,TOTAL 0.3 MG/DL (0.2-1.0); C REACTIVE PROTEIN QUANTITATIV 0.3 MG/DL (0.00-0.30); CALCIUM LEVEL 8.8 MG/DL (8.5-10.1); CREATININE FOR GFR 1.4 MG/DL (0.70-1.30); GLOMERULAR FILTRATION RATE 56.2 (>56); POTASSIUM SERUM 4.6 MEQ/L (3.5-5.1); TOTAL PROTEIN 6.4 GM/DL (6.4-8.2)
[2020-06-03 19:27] LABS: ERYTHROCYTE SEDIMENTATION RATE 24 mm/hr (0-20)
--- NOTE | 2020-06-11 09:57 | REPPI ---
CHEST X-RAY CLINICAL: Shortness of breath. TECHNIQUE: PA and lateral. COMPARISON: 02/06/2019 FINDINGS: Mediastinum and cardiac silhouette are normal. Lung gillis are clear. No consolidation, effusion, or pneumothorax. Skeletal structures are intact. IMPRESSION: Normal chest x-ray. No acute cardiopulmonary process or focal consolidation. MTDD
== END ==
LOC: M PLAIMG 14:41
PROVIDERS: ATTEND Physician Assistant Medical
DX: R06.02 Shortness of breath (principal)

== ENCOUNTER → 2020-08-05 | Outpatient (CLI) | payer OTHER, MEDICAID ==
[2020-08-05 17:20] LABS: HEMATOCRIT 32.5 % (42.0-52.0); HEMOGLOBIN 10.5 g/dl (13.5-17.5); MEAN CORPUSCULAR HEMOGLOBIN 29.2 pg (27.0-33.0); MEAN CORPUSCULAR HGB CONC 32.3 g/dl (32.0-36.5); MEAN CORPUSCULAR VOLUME 90.3 fl (80.0-96.0); PLATELET COUNT, AUTOMATED 224 10^3/uL (150-450); WHITE BLOOD COUNT 4.3 10^3/uL (4.0-10.0)
[2020-08-05 17:43] LABS: ALBUMIN 2.8 GM/DL (3.2-5.2); BILIRUBIN,DIRECT 0.1 MG/DL (0.0-0.2); BILIRUBIN,TOTAL 0.4 MG/DL (0.2-1.0); TOTAL PROTEIN 5.6 GM/DL (6.4-8.2)
== END ==
LOC: M LAB 16:32
PROVIDERS: ATTEND Internal Medicine Gastroenterology
DX: K28.9 Gastrojejunal ulcer, unspecified as acute or chronic, without hemorrhage or perforation (principal); K83.8 Other specified diseases of biliary tract

== ENCOUNTER 2020-08-22 10:35 | Inpatient (IN) | payer OTHER, MEDICAID ==
[2020-08-22] VITALS (12 sets, daily range): BP systolic 129–165; BP diastolic 62–85
[~2020-08-22] VITALS: Ht 175.3 cm; Wt 84.3 kg
[~2020-08-22 10:35] MED LIST changes: -AMIT25TA PO; +AMIT25TA17 PO; -DICL1GEL3; +DICL1GEL3 TOP; -DULO1CAP5; +DULO1CAP5 PO; -DULO1CAP6; +DULO1CAP6 PO; +ESCI10TA16 PO; -ESCI10TA2 PO; +GABA-282 PO; -GABA-843 PO; -HYDR50TA70; +HYDR50TA70 PO; -LIDO2.5C15; +LIDO2.5C15 TOP; -LISI-538 PO; +LISI20TA33 PO; -LISI40TA; +LISI40TA4; -NALT50TA4; +NALT50TA4 PO; -OMEG1CAP4; +OMEG1CAP85 PO; -STOO1CAP9 PO; +STOO240C PO
[2020-08-22] MEDS ORDERED: PANTOPRAZOLE 40MG VIAL (C9113 PER 1) IV ONE (10:45)
[2020-08-22] MEDS ORDERED: NS 1,000 ML IV ONE ×2 (10:45→11:45)
[2020-08-22 11:32] LABS: BASO % 0.4 % (0.0-1.0); EOS # 0.1 10^3/uL (0.0-0.5); EOS % 1.8 % (0.0-3.0); LYMPH # 1.1 10^3/uL (1.5-5.0); LYMPH % 25.1 % (24.0-44.0); MEAN CORPUSCULAR HGB CONC 31.7 g/dl (32.0-36.5); MEAN CORPUSCULAR VOLUME 94.8 fl (80.0-96.0); MONO # 0.3 10^3/uL (0.0-0.8); MONO % 6.3 % (0.0-5.0); NEUTROPHILS # 2.9 10^3/uL (1.5-8.5); NEUTROPHILS % 65.7 % (36.0-66.0); PLATELET COUNT, AUTOMATED 211 10^3/uL (150-450); RED BLOOD COUNT 2.13 10^6/uL (4.30-6.10); WHITE BLOOD COUNT 4.5 10^3/uL (4.0-10.0)
[2020-08-22 11:46] LABS: HEMATOCRIT 20.2 % (42.0-52.0)
[2020-08-22 11:47] LABS: HEMOGLOBIN 6.4 g/dl (13.5-17.5)
[2020-08-22 11:58] LABS: ALBUMIN 2.3 GM/DL (3.2-5.2); BILIRUBIN,DIRECT 0.2 MG/DL (0.0-0.2); BILIRUBIN,TOTAL 0.4 MG/DL (0.2-1.0); TOTAL PROTEIN 4.7 GM/DL (6.4-8.2)
[2020-08-22 11:59] LABS: CALCIUM LEVEL 7.7 MG/DL (8.5-10.1); CK-MB VALUE MASS 4.4 NG/ML (<3.6); CREATININE FOR GFR 1.57 MG/DL (0.70-1.30); GLOMERULAR FILTRATION RATE 49.3 (>56); MB/CK RELATIVE INDEX 2.56 (< OR =4); POTASSIUM SERUM 4.7 MEQ/L (3.5-5.1); TROPONIN I 0.03 NG/ML (< 0.10)
[2020-08-22] MEDS ORDERED: METF-838 PO (12:32)
[2020-08-22] MEDS ORDERED: ROPI0.5T3 PO (12:32)
[2020-08-22] MEDS ORDERED: CARV25TA PO (12:32)
[2020-08-22] MEDS ORDERED: GABA600T4 PO (12:32)
[2020-08-22] MEDS ORDERED: LISI40TA4 PO (12:32)
[2020-08-22 12:57] LABS: INR 1.12; PROTHROMBIN TIME 14.6 SECONDS (12.5-14.3)
[2020-08-22] MEDS ORDERED: COMMENTS (13:02)
[2020-08-22 13:30] LABS: RSV AMPLIFICATION NEGATIVE (NEGATIVE)
[2020-08-22] MEDS ORDERED: DEXTROSE 50% 50 ML SYRINGE IV PRN (13:30)
[2020-08-22] MEDS ORDERED: LORazepam 2 MG TAB PO PRN (13:30)
[2020-08-22] MEDS ORDERED: traMADol 50 MG TAB PO PRN (13:30)
[2020-08-22] MEDS ORDERED: GLUCAGON INJ 1MG VIAL SC PRN (13:30)
[2020-08-22] MEDS ORDERED: GLUCOSE 4GM CHEW TABLET PO PRN (13:30)
--- NOTE | 2020-08-22 15:01 | ECGEPIP ---
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
[2020-08-22] MEDS: GABAPENTIN 300 MG CAP PO SCH ×2 (15:14→21:50)
[2020-08-22] MEDS: FOLIC ACID 1 MG TAB PO SCH (15:14)
[2020-08-22] MEDS: MULTIVITAMINS/MINERALS THERAP 1 TAB PO SCH (15:15)
[2020-08-22] MEDS ORDERED: SLF 3 ML SYR IV PRN (16:00)
[2020-08-22] MEDS: cefTRIAXone SOD 1 GM in D5W MINI-BAG PLUS 50 ML IV SCH (16:28)
--- NOTE | 2020-08-22 16:29 | REP ---
INDICATION: hematochezia with history of multiple abd surgeries COMPARISON: None. TECHNIQUE: CT Scan of the abdomen and pelvis was performed without intravenous contrast. Sagittal and coronal reconstruction images performed. FINDINGS: Lung bases: Unremarkable. There is a small hiatal hernia. Liver: Grossly unremarkable. Gallbladder: Prior cholecystectomy. Spleen: Grossly unremarkable.. Adrenals: Normal. Pancreas: Pancreatic calcifications are again noted. Kidneys: No hydronephrosis or nephrolithiasis. Ureters demonstrate no dilatation or calculus. Small and large bowel: Grossly unremarkable.. Free fluid: None. Abdominal aorta: No aneurysm. Adenopathy: None. Appendix: Not inflamed. Osseous structures: Mild degenerative changes of the spine without compression deformity. Pelvis: No mass. No bladder calculus seen. There is an IVC filter. There has been prior gastric surgery. Surgical clips are seen on both sides of the pelvis anteriorly. There is metallic internal fixation in the right pelvic bones. Metallic clips are seen along the anterior abdominal wall. A small ventral hernia in the midline contains a small amount of noninflamed fat. IMPRESSION: Postsurgical findings as above. No acute findings. <Electronically signed by Jose Juan York > 08/22/20 [id number]
[2020-08-22] MEDS ORDERED: GOLYTELY SOLN 4000 ML BTL PO ONE (17:00)
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
[2020-08-22] MEDS: HumaLOG INSULIN (NovoLOG) PER UNIT SC SCH ×2 (17:24→21:00)
[2020-08-22] MEDS ORDERED: BISACODYL 5 MG TAB PO ONE (18:00)
[2020-08-22 20:42] LABS: HEMATOCRIT 24.9 % (42.0-52.0)
[2020-08-22 20:46] LABS: HEMOGLOBIN 8.4 g/dl (13.5-17.5)
[2020-08-22] MEDS: DULoxetine 30 MG CAP (CYMBALTA) PO SCH (21:50)
[2020-08-22] MEDS: rOPINIRole 1MG TAB PO SCH (21:51)
[2020-08-22] MEDS: PANTOPRAZOLE 40MG VIAL (C9113 PER 1) IV SCH (21:51)
[2020-08-22] MEDS: SLF 3 ML SYR IV SCH (21:51)
[2020-08-22] MEDS: THIAMINE 100 MG TAB PO SCH (21:51)
[2020-08-22] MEDS: NALTREXONE 50 MG TAB PO SCH (23:37)
[2020-08-23] VITALS (22 sets, daily range): BP systolic 110–192; BP diastolic 70–102
[2020-08-23] MEDS: LABETALOL 100MG/20ML VIAL IV SCH ×2 (00:58→06:00)
[2020-08-23] MEDS: GABAPENTIN 300 MG CAP PO SCH ×3 (05:52→23:07)
[2020-08-23] MEDS: SLF 3 ML SYR IV SCH ×3 (05:53→23:09)
[2020-08-23 06:39] LABS: HEMATOCRIT 22.9 % (42.0-52.0); HEMOGLOBIN 7.4 g/dl (13.5-17.5); MEAN CORPUSCULAR HEMOGLOBIN 29.5 pg (27.0-33.0); MEAN CORPUSCULAR HGB CONC 32.3 g/dl (32.0-36.5); MEAN CORPUSCULAR VOLUME 91.2 fl (80.0-96.0); PLATELET COUNT, AUTOMATED 146 10^3/uL (150-450); RED BLOOD COUNT 2.51 10^6/uL (4.30-6.10); WHITE BLOOD COUNT 5.5 10^3/uL (4.0-10.0)
[2020-08-23 06:54] LABS: ALBUMIN 2.3 GM/DL (3.2-5.2); ALT/SGPT 24 U/L (12-78); BILIRUBIN,TOTAL 0.4 MG/DL (0.2-1.0); BLOOD UREA NITROGEN 24 MG/DL (7-18); CALCIUM LEVEL 7.1 MG/DL (8.5-10.1); CARBON DIOXIDE LEVEL 23 MEQ/L (21-32); CHLORIDE LEVEL 105 MEQ/L (98-107); CREATININE FOR GFR 1.16 MG/DL (0.70-1.30); GLOMERULAR FILTRATION RATE > 60.0 (>56); GLUCOSE, FASTING 86 MG/DL (70-100); MAGNESIUM LEVEL 1.6 MG/DL (1.8-2.4); POTASSIUM SERUM 3.5 MEQ/L (3.5-5.1); SODIUM LEVEL 138 MEQ/L (136-145); TOTAL PROTEIN 4.6 GM/DL (6.4-8.2)
[2020-08-23] MEDS: HumaLOG INSULIN (NovoLOG) PER UNIT SC SCH ×4 (07:30→21:00)
[2020-08-23] MEDS: FOLIC ACID 1 MG TAB PO SCH (09:19)
[2020-08-23] MEDS: DULoxetine 30 MG CAP (CYMBALTA) PO SCH ×2 (09:19→23:06)
[2020-08-23] MEDS: MULTIVITAMINS/MINERALS THERAP 1 TAB PO SCH (09:19)
[2020-08-23] MEDS: PANTOPRAZOLE 40MG VIAL (C9113 PER 1) IV SCH (09:19)
[2020-08-23] MEDS: THIAMINE 100 MG TAB PO SCH ×2 (09:19→23:06)
[2020-08-23] MEDS ORDERED: fentaNYL 100 MCG/2 ML INJECTION (J3010) As Ordered ONE (13:14)
[2020-08-23] MEDS ORDERED: propofoL 200 MG/20 ML VIAL As Ordered ONE ×2 (13:32→14:03)
[2020-08-23] MEDS ORDERED: LIDOCAINE 2% 100MG/5ML SDV (FOR ANES.) As Ordered ONE (13:33)
--- NOTE | 2020-08-23 14:50 | ROOR ---
Patient Name: Daryl Kaye Procedure Date: 08/23/2020 1:05 PM Date of : 1965 Age: 55 Room: Main OR Gender: Male Note Status: Finalized Procedure: Upper GI endoscopy Indications: Acute post hemorrhagic anemia, Melena Providers: Cr De La Rosa MD Referring MD: 2. Inpatient 2. Inpatient Requesting Provider: Medicines: Monitored Anesthesia Care Complications: No immediate complications. Procedure: Pre-Anesthesia Assessment: - Prior to the procedure, a History and Physical was performed, and patient medications and allergies were reviewed. The patient is competent. The risks and benefits of the procedure and the sedation options and risks were discussed with the patient. All questions were answered and informed consent was obtained. Patient identification and proposed procedure were verified by the physician, the nurse and the anesthesiologist in the procedure room. Mental Status Examination: alert and oriented. Airway Examination: normal oropharyngeal airway and neck mobility. Respiratory Examination: clear to auscultation. CV Examination: normal. Prophylactic Antibiotics: The patient does not require prophylactic antibiotics. Prior Anticoagulants: The patient has taken no previous anticoagulant or antiplatelet agents. ASA Grade Assessment: II - A patient with mild systemic disease. After reviewing the risks and benefits, the patient was deemed in satisfactory condition to undergo the procedure. The anesthesia plan was to use monitored anesthesia care (MAC). Immediately prior to administration of medications, the patient was re-assessed for adequacy to receive sedatives. The heart rate, respiratory rate, oxygen saturations, blood pressure, adequacy of pulmonary ventilation, and response to care were monitored throughout the procedure. The physical status of the patient was re-assessed after the procedure. The Endoscope was introduced through the mouth, and advanced to the efferent jejunal loop. The upper GI endoscopy was accomplished without difficulty. The patient tolerated the procedure well. Findings: The examined esophagus was normal. Evidence of a gastrojejunostomy was found in the gastric body. This was characterized by congestion, moderate stenosis and ulceration. One partially obstructing non-bleeding cratered gastric ulcer of moderate to significant severity with a clean ulcer base (Alfredito Class III) was found at the anastomosis. The lesion was 12 mm in largest dimension. There is no evidence of perforation. For hemostasis, two hemostatic clips were successfully placed. There was no bleeding at the end of the procedure. A suture was found at the anastomosis. The examined jejunum was normal. Impression: - Normal esophagus. - A gastrojejunostomy was found, characterized by congestion, ulceration and moderate stenosis. - Partially obstructing non-bleeding gastric ulcer with a clean ulcer base (Alfredito Class III). There is no evidence of perforation. Clips were placed. - A suture was found in the stomach. - Normal examined jejunum. - No specimens collected. Recommendation: - Patient has a contact number available for emergencies. The signs and symptoms of potential delayed complications were discussed with the patient. Return to normal activities tomorrow. Written discharge instructions were provided to the patient. - Clear liquid diet today, then advance as tolerated to Post gastric bypass diet (small frequent meals and avoid fatty/ fried foods). - Continue present medications. - No ibuprofen, naproxen, or other non-steroidal anti-inflammatory drugs. - Use Protonix (pantoprazole) 40 mg PO BID for 3 months. - Use sucralfate suspension 1 gram PO QID. - Repeat upper endoscopy in 3 months to check healing. - Return to GI clinic in [facility] (address [address], [address], [place] [address]) in 4 -- 6 weeks. Please call GI clinic @ [phone] for apppointment date and time. - Return to primary care physician. Procedure Code(s): --- Professional --- 46709, Esophagogastroduodenoscopy, flexible, transoral; with control of bleeding, any method Diagnosis Code(s): --- Professional --- Z98.0, Intestinal bypass and anastomosis status K25.9, Gastric ulcer, unspecified as acute or chronic, without hemorrhage or perforation T18.2XXA, Foreign body in stomach, initial encounter D62, Acute posthemorrhagic anemia K92.1, Melena (includes Hematochezia) CPT copyright 2019 [employer]. All rights reserved. The codes documented in this report are preliminary and upon home demonstration agent review may be revised to meet current compliance requirements. Cr De La Rosa MD Cr De La Rosa MD 08/23/2020 2:49:27 PM Electronically signed by Cr De La Rosa MD Number of Addenda: 0 Note Initiated On: 08/23/2020 1:05 PM Estimated Blood Loss: Estimated blood loss was minimal.
--- NOTE | 2020-08-23 15:02 | ROOR ---
Patient Name: Daryl Kaye Procedure Date: 08/23/2020 1:03 PM Date of : 1965 Age: 55 Room: Main OR Gender: Male Note Status: Finalized Procedure: Colonoscopy Indications: Hematochezia, Acute post hemorrhagic anemia Providers: Cr De La Rosa MD Referring MD: 2. Inpatient 2. Inpatient Requesting Provider: Medicines: Monitored Anesthesia Care Complications: No immediate complications. Procedure: Pre-Anesthesia Assessment: - Prior to the procedure, a History and Physical was performed, and patient medications and allergies were reviewed. The patient is competent. The risks and benefits of the procedure and the sedation options and risks were discussed with the patient. All questions were answered and informed consent was obtained. Patient identification and proposed procedure were verified by the physician, the nurse and the anesthesiologist in the procedure room. Mental Status Examination: alert and oriented. Airway Examination: normal oropharyngeal airway and neck mobility. Respiratory Examination: clear to auscultation. CV Examination: normal. Prophylactic Antibiotics: The patient does not require prophylactic antibiotics. Prior Anticoagulants: The patient has taken no previous anticoagulant or antiplatelet agents. ASA Grade Assessment: II - A patient with mild systemic disease. After reviewing the risks and benefits, the patient was deemed in satisfactory condition to undergo the procedure. The anesthesia plan was to use monitored anesthesia care (MAC). Immediately prior to administration of medications, the patient was re-assessed for adequacy to receive sedatives. The heart rate, respiratory rate, oxygen saturations, blood pressure, adequacy of pulmonary ventilation, and response to care were monitored throughout the procedure. The physical status of the patient was re-assessed after the procedure. The Colonoscope was introduced through the anus and advanced to the terminal ileum, with identification of the appendiceal orifice and IC valve. The colonoscopy was performed without difficulty. The patient tolerated the procedure well. The quality of the bowel preparation was adequate to identify polyps 6 mm and larger in size. The terminal ileum, ileocecal valve, appendiceal orifice, and rectum were photographed. Scope insertion time was 5 minutes. Scope withdrawal time was 12 minutes. The total duration of the procedure was 20 minutes. Findings: The perianal and digital rectal examinations were normal. The terminal ileum appeared normal. One medium-sized localized angioectasia without bleeding was found in the ascending colon. For hemostasis, two hemostatic clips were successfully placed. There was no bleeding at the end of the procedure. A benign-appearing, intrinsic moderate stenosis measuring 1.5 cm (inner diameter) was found in the transverse colon and in the ascending colon and was traversed. Non-bleeding external and internal hemorrhoids were found during retroflexion. The hemorrhoids were medium-sized. The colon (entire examined portion) was significantly tortuous. Advancing the scope required using manual pressure. Impression: - The examined portion of the ileum was normal. - One non-bleeding colonic angioectasia. Clips were placed. - Stricture in the transverse colon and in the ascending colon. - Non-bleeding external and internal hemorrhoids. - Tortuous colon. - No specimens collected. Recommendation: - Patient has a contact number available for emergencies. The signs and symptoms of potential delayed complications were discussed with the patient. Return to normal activities tomorrow. Written discharge instructions were provided to the patient. - Clear liquid diet today, then advance as tolerated to Post gastric bypass diet (small frequent meals and avoid fatty/ fried foods). - Continue present medications. - Follow the recommendations as per the other procedure note. - Recommend medication for inflammatory bowel disease. - ( patient reports he is following with GI in [place] and want to go there.). - Repeat colonoscopy in 1 year to assess disease activity. - Return to GI clinic in [facility] (address [address], [address], [place], [address]) in 4 -- 6 weeks. Please call GI clinic @ [phone] for apppointment date and time. - Return to primary care physician. Procedure Code(s): --- Professional --- 83680, Colonoscopy, flexible; with control of bleeding, any method Diagnosis Code(s): --- Professional --- K64.8, Other hemorrhoids K55.20, Angiodysplasia of colon without hemorrhage K56.699, Other intestinal obstruction unspecified as to partial versus complete obstruction K92.1, Melena (includes Hematochezia) D62, Acute posthemorrhagic anemia Q43.8, Other specified congenital malformations of intestine CPT copyright 2019 [employer]. All rights reserved. The codes documented in this report are preliminary and upon computer training specialist review may be revised to meet current compliance requirements. Cr De La Rosa MD Cr De La Rosa MD 08/23/2020 3:01:42 PM Electronically signed by Cr De La Rosa MD Number of Addenda: 0 Note Initiated On: 08/23/2020 1:03 PM Estimated Blood Loss: Estimated blood loss was minimal.
[2020-08-23] MEDS: cefTRIAXone SOD 1 GM in D5W MINI-BAG PLUS 50 ML IV SCH (15:14)
[2020-08-23] MEDS ORDERED: ONDANSETRON 4MG/2ML VIAL IV PRN (15:30)
--- NOTE | 2020-08-23 17:02 | IPNPDOC ---
Text Note Date of Service The patient was seen on 08/23/20. NOTE Subjective: -Had bowel prep overnight with multiple bloody bowel movements -Otherwise no abdominal pain, nausea, emesis -had EGD/colonoscopy today PHYSICAL EXAMINATION: GEN: 55yo M in no acute distress. Alert and oriented x 3. HEENT: NCAT, PERRLA, EOMI, dry MM, no blood in mouth, clear posterior oropharynx CARDIAC: Regular rate and rhythm, +S1, +S2, no noted m/r/g LUNGS: Clear to auscultation bilaterally. No wheezes, rales, or rhonchi. Patient is speaking in full sentences. ABD: Normoactive sounds, soft, non-tender, non-distended. No rebound tenderness or guarding. EXT: WWP, 2+ DP pulses, no LE edema NEURO: Cranial nerves 3-12 intact, moving all extremities PSYCH: AOx3 LABS: WBC 5.5 Hgb 7.4 (giving 2u pRBCs) platelets 146 Cr 1.16 08/23 EGD: Findings: The examined esophagus was normal. Evidence of a gastrojejunostomy was found in the gastric body. This was characterized by congestion, moderate stenosis and ulceration. One partially obstructing non-bleeding cratered gastric ulcer of moderate to significant severity with a clean ulcer base (Alfredito Class III) was found at the anastomosis. The lesion was 12 mm in largest dimension. There is no evidence of perforation. For hemostasis, two hemostatic clips were successfully placed. There was no bleeding at the end of the procedure. A suture was found at the anastomosis. The examined jejunum was normal. Impression: - Normal esophagus. - A gastrojejunostomy was found, characterized by congestion, ulceration and moderate stenosis. - Partially obstructing non-bleeding gastric ulcer with a clean ulcer base (Alfredito Class III). There is no evidence of perforation. Clips were placed. - A suture was found in the stomach. - Normal examined jejunum. - No specimens collected. Recommendation: - Patient has a contact number available for emergencies. The signs and symptoms of potential delayed complications were discussed with the patient. Return to normal activities tomorrow. Written discharge instructions were provided to the patient. - Clear liquid diet today, then advance as tolerated to Post gastric bypass diet (small frequent meals and avoid fatty/ fried foods). - Continue present medications. - No ibuprofen, naproxen, or other non-steroidal anti-inflammatory drugs. - Use Protonix (pantoprazole) 40 mg PO BID for 3 months. - Use sucralfate suspension 1 gram PO QID. - Repeat upper endoscopy in 3 months to check healing. - Return to GI clinic in [facility] (address [address], [address] [address]) in 4 -- 6 weeks. Please call GI clinic @ [phone] for apppointment date and time. - Return to primary care physician. 08/23/2020: Colonscopy: Findings: The perianal and digital rectal examinations were normal. The terminal ileum appeared normal. One medium-sized localized angioectasia without bleeding was found in the ascending colon. For hemostasis, two hemostatic clips were successfully placed. There was no bleeding at the end of the procedure. A benign-appearing, intrinsic moderate stenosis measuring 1.5 cm (inner diameter) was found in the transverse colon and in the ascending colon and was traversed. Non-bleeding external and internal hemorrhoids were found during retroflexion. The hemorrhoids were medium-sized. The colon (entire examined portion) was significantly tortuous. Advancing the scope required using manual pressure. Impression: - The examined portion of the ileum was normal. - One non-bleeding colonic angioectasia. Clips were placed. - Stricture in the transverse colon and in the ascending colon. - Non-bleeding external and internal hemorrhoids. - Tortuous colon. - No specimens collected. Recommendation: - Patient has a contact number available for emergencies. The signs and symptoms of potential delayed complications were discussed with the patient. Return to normal activities tomorrow. Written discharge instructions were provided to the patient. - Clear liquid diet today, then advance as tolerated to Post gastric bypass diet (small frequent meals and avoid fatty/ fried foods). - Continue present medications. - Follow the recommendations as per the other procedure note. - Recommend medication for inflammatory bowel disease. - ( patient reports he is following with GI in [place] and want to go there.). - Repeat colonoscopy in 1 year to assess disease activity. - Return to GI clinic in [facility] (address [address], [address] [address]) in 4 -- 6 weeks. Please call GI clinic @ [phone] for appointment date and time. - Return to primary care physician. Assessment: 55yo M with a history of NIDDM, alcohol use disorder, history of gastric bypass surgery c/b adhesions s/p laparoscopic lysis of adhesions after splenic flexure stricture, chart history of Crohn's, GERD, history of ELADIO, and a history of prior GIB who presented to the ED via EMS with walter painless hematochezia and admitted for GIB. GIB with acute on chronic anemia. Baseline appears to be 10.5 in 07/2020. Hemoglobin 6.4 on admission. Patient with history of iron and vitamin B12 de ficiency and with ongoing BRBPR -active type and screen -getting 2 more units pRBCs -consulted GI --> had EGD/colo today--> has partially obstructing non-bleeding gastric ulcer with a clean ulcer base without evidence of perforation and clips were placed. -GI recommended BID PPI and sucralfate -clear liquid diet for now -2 large bore IVs -s/p 2u pRBCs and now giving 2 more units, for total 4u this admission thus far. Alcohol use disorder: -CIWA protocol with symptom triggered PRN ativan -Multivitamin, thiamine and folate -s/p 2L NS hydration -holding home hydroxyzine for now -continue home naltrexone History of hypertension Hold home coreg and lisinopril with relative low BP and ongoing GIB NIDDM: -hold home metformin -SSI AC/HS -FSBG AC/HS -hypoglycemia protocol RLS: likely 2/2 ELADIO -continue home ropinirole Peripheral neuropathy: -Continue home gabapentin GERD: -continue IV protonix BID in the setting ongoing GIB Chronic pain: -continue home tramadol PRN for moderate pain and tylenol PRN for mild pain Crohn's disease: -Not on any therapies in the outpatient setting. Will await GI evaluation and recs DVT ppx: TEDs and SCDs VS,Fishbone, I+O VS, Fishbone, I+O Laboratory Tests 08/22/20 20:23 08/23/20 05:30 Vital Signs Date Time Temp Pulse Resp B/P (MAP) Pulse Ox O2 Delivery O2 Flow Rate FiO2 08/23/20 16:00 61 162/86 08/23/20 15:11 97.9 18 96 08/23/20 14:55 Room Air I&O- Last 24 Hours up to 6 AM 12/13/20 06:00 Intake Total 4390 ml Output Total 300 ml Balance 4090 ml DORCAS SANTANA MD Aug 23, 2020 17:02
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
[2020-08-23] MEDS: SUCRALFATE 1 GM TAB PO SCH ×2 (17:56→23:07)
[2020-08-23] MEDS ORDERED: CAPTOpril 6.25 MG PER 1/2 TABLET PO ONE (21:30)
[2020-08-23] MEDS: rOPINIRole 1MG TAB PO SCH (23:07)
[2020-08-23] MEDS: NALTREXONE 50 MG TAB PO SCH (23:07)
[2020-08-23] MEDS: ACETAMINOPHEN TAB 650MG DOSE (2X325MG) PO PRN (23:14)
[2020-08-24] VITALS (9 sets, daily range): BP systolic 162–196; BP diastolic 80–96
[2020-08-24] MEDS: PANTOPRAZOLE 40MG VIAL (C9113 PER 1) IV SCH ×3 (02:14→21:05)
[2020-08-24 04:18] LABS: HEMATOCRIT 25.4 % (42.0-52.0); HEMOGLOBIN 8.4 g/dl (13.5-17.5)
[2020-08-24] MEDS: SLF 3 ML SYR IV SCH ×3 (06:29→21:05)
[2020-08-24] MEDS: GABAPENTIN 300 MG CAP PO SCH ×3 (06:29→21:05)
[2020-08-24] MEDS: HumaLOG INSULIN (NovoLOG) PER UNIT SC SCH ×4 (07:30→21:00)
[2020-08-24] MEDS: MULTIVITAMINS/MINERALS THERAP 1 TAB PO SCH (08:34)
[2020-08-24] MEDS: SUCRALFATE 1 GM TAB PO SCH ×4 (08:34→21:05)
[2020-08-24] MEDS: THIAMINE 100 MG TAB PO SCH ×2 (08:34→21:04)
[2020-08-24] MEDS: FOLIC ACID 1 MG TAB PO SCH (08:34)
[2020-08-24] MEDS: DULoxetine 30 MG CAP (CYMBALTA) PO SCH ×2 (08:34→21:04)
[2020-08-24] MEDS ORDERED: FLUBLOK(EGG FREE)(QUAD)INFLUENZA VACC 0.5ML SYRINGE 18YRS & OLDER IM ONE (09:00)
[2020-08-24 12:15] LABS: HEMATOCRIT 32.6 % (42.0-52.0)
[2020-08-24] MEDS: lisinopriL 40 MG TAB PO SCH (13:56)
[2020-08-24] MEDS: CARVedilol 12.5 MG TAB PO SCH ×2 (13:57→21:05)
--- NOTE | 2020-08-24 15:00 | IPNPDOC ---
Text Note Date of Service The patient was seen on 08/24/20. NOTE Subjective: -had EGD/colonoscopy yesterday that showed gastrojejunostomy with congestion, ulceration and moderate stenosis and a partially obstructing non-bleeding gastric ulcer with a clean ulcer base without evidence of perforation and clips were placed, as well as a non-bleeding colonic angiectasia that was clipped and stricture in the transverse and ascending colon, as well as non bleeding external and internal hemorrhoids and noted a tortuous colon. -Overnight may have had a couple of bloody BMs though he is not sure PHYSICAL EXAMINATION: GEN: 55yo M in no acute distress. Alert and oriented x 3. HEENT: NCAT, PERRLA, EOMI, dry MM, no blood in mouth, clear posterior oropharynx CARDIAC: Regular rate and rhythm, +S1, +S2, no noted m/r/g LUNGS: Clear to auscultation bilaterally. No wheezes, rales, or rhonchi. Patient is speaking in full sentences. ABD: Normoactive sounds, soft, non-tender, non-distended. No rebound tenderness or guarding. EXT: WWP, 2+ DP pulses, no LE edema NEURO: Cranial nerves 3-12 intact, moving all extremities PSYCH: AOx3 LABS: Hgb now 11. Hgb 32.6 Imaging and studies: 08/22 CT A/P: Lung bases: Unremarkable. There is a small hiatal hernia. Liver: Grossly unremarkable. Gallbladder: Prior cholecystectomy. Spleen: Grossly unremarkable.. Adrenals: Normal. Pancreas: Pancreatic calcifications are again noted. Kidneys: No hydronephrosis or nephrolithiasis. Ureters demonstrate no dilatation or calculus. Small and large bowel: Grossly unremarkable.. Free fluid: None. Abdominal aorta: No aneurysm. Adenopathy: None. Appendix: Not inflamed. Osseous structures: Mild degenerative changes of the spine without compression deformity. Pelvis: No mass. No bladder calculus seen. There is an IVC filter. There has been prior gastric surgery. Surgical clips are seen on both sides of the pelvis anteriorly. There is metallic internal fixation in the right pelvic bones. Metallic clips are seen along the anterior abdominal wall. A small ventral hernia in the midline contains a small amount of noninflamed fat. IMPRESSION: Postsurgical findings as above. No acute findings. 08/23 EGD: Findings: The examined esophagus was normal. Evidence of a gastrojejunostomy was found in the gastric body. This was characterized by congestion, moderate stenosis and ulceration. One partially obstructing non-bleeding cratered gastric ulcer of moderate to significant severity with a clean ulcer base (Alfredito Class III) was found at the anastomosis. The lesion was 12 mm in largest dimension. There is no evidence of perforation. For hemostasis, two hemostatic clips were successfully placed. There was no bleeding at the end of the procedure. A suture was found at the anastomosis. The examined jejunum was normal. Impression: - Normal esophagus. - A gastrojejunostomy was found, characterized by congestion, ulceration and moderate stenosis. - Partially obstructing non-bleeding gastric ulcer with a clean ulcer base (Alfredito Class III). There is no evidence of perforation. Clips were placed. - A suture was found in the stomach. - Normal examined jejunum. - No specimens collected. Recommendation: - Patient has a contact number available for emergencies. The signs and symptoms of potential delayed complications were discussed with the patient. Return to normal activities tomorrow. Written discharge instructions were provided to the patient. - Clear liquid diet today, then advance as tolerated to Post gastric bypass diet (small frequent meals and avoid fatty/ fried foods). - Continue present medications. - No ibuprofen, naproxen, or other non-steroidal anti-inflammatory drugs. - Use Protonix (pantoprazole) 40 mg PO BID for 3 months. - Use sucralfate suspension 1 gram PO QID. - Repeat upper endoscopy in 3 months to check healing. - Return to GI clinic in [facility] (address [address], [address], [place] [address]) in 4 -- 6 weeks. Please call GI clinic @ [phone] for apppointment date and time. - Return to primary care physician. 08/23/2020: Colonscopy: Findings: The perianal and digital rectal examinations were normal. The terminal ileum appeared normal. One medium-sized localized angioectasia without bleeding was found in the ascending colon. For hemostasis, two hemostatic clips were successfully placed. There was no bleeding at the end of the procedure. A benign-appearing, intrinsic moderate stenosis measuring 1.5 cm (inner diameter) was found in the transverse colon and in the ascending colon and was traversed. Non-bleeding external and internal hemorrhoids were found during retroflexion. The hemorrhoids were medium-sized. The colon (entire examined portion) was significantly tortuous. Advancing the scope required using manual pressure. Impression: - The examined portion of the ileum was normal. - One non-bleeding colonic angioectasia. Clips were placed. - Stricture in the transverse colon and in the ascending colon. - Non-bleeding external and internal hemorrhoids. - Tortuous colon. - No specimens collected. Recommendation: - Patient has a contact number available for emergencies. The signs and symptoms of potential delayed complications were discussed with the patient. Return to normal activities tomorrow. Written discharge instructions were provided to the patient. - Clear liquid diet today, then advance as tolerated to Post gastric bypass diet (small frequent meals and avoid fatty/ fried foods). - Continue present medications. - Follow the recommendations as per the other procedure note. - Recommend medication for inflammatory bowel disease. - ( patient reports he is following with GI in [place] and want to go there.). - Repeat colonoscopy in 1 year to assess disease activity. - Return to GI clinic in [facility] (address [address], [address], [place] [address]) in 4 -- 6 weeks. Please call GI clinic @ [phone] for appointment date and time. - Return to primary care physician. Assessment: 55yo M with a history of NIDDM, alcohol use disorder, history of gastric bypass surgery c/b adhesions s/p laparoscopic lysis of adhesions after splenic flexure stricture, chart history of Crohn's, GERD, history of ELADIO, and a history of prior GIB who presented to the ED via EMS with walter painless hematochezia and admitted for GIB. GIB with acute on chronic anemia. Baseline appears to be 10.5 in 07/2020. Hemoglobin 6.4 on admission. Patient with history of iron and vitamin B12 deficiency and with ongoing BRBPR -active type and screen -s/p 4 units pRBCs -consulted GI --> had EGD/colo 08/23 with some upper ulcers that were clipped, and colonic angiectasia that was clipped as well and some non bleeding hemorrhoids -GI recommended BID PPI and sucralfate -advancing diet back to regular -2 large bore IVs Alcohol use disorder: -CIWA protocol with symptom triggered PRN ativan -Multivitamin, thiamine and folate -s/p 2L NS hydration -holding home hydroxyzine for now -continue home naltrexone History of hypertension w/ hypertensive now, i/s/o held meds from recent relative hypotension when he presented. -restart home coreg and lisinopril NIDDM: -hold home metformin -SSI AC/HS -FSBG AC/HS -hypoglycemia protocol RLS: likely 2/2 ELADIO -continue home ropinirole Peripheral neuropathy: -Continue home gabapentin GERD: -continue protonix BID -carafate Chronic pain: -continue home tramadol PRN for moderate pain and tylenol PRN for mild pain Crohn's disease: -Not on any therapies in the outpatient setting. To follow up with outpatient [facility] DVT ppx: TEDs and SCDs Dispo: Home tomorrow after normalization of HTN, yarsanism of regular diet, and noting stable H/H. VS,Fishbone, I+O VS, Fishbone, I+O Laboratory Tests 08/24/20 04:05 08/24/20 11:47 Vital Signs Date Time Temp Pulse Resp B/P (MAP) Pulse Ox O2 Delivery O2 Flow Rate FiO2 08/24/20 12:00 98.3 72 17 192/96 (128) 98 Room Air I&O- Last 24 Hours up to 6 AM 08/24/20 05:59 Intake Total 2660 ml Output Total 2275 ml Balance 385 ml DORCAS SANTANA MD Aug 24, 2020 15:00
[2020-08-24] MEDS: rOPINIRole 1MG TAB PO SCH (21:05)
[2020-08-24] MEDS: NALTREXONE 50 MG TAB PO SCH (21:05)
[2020-08-24] MEDS: ACETAMINOPHEN TAB 650MG DOSE (2X325MG) PO PRN (21:38)
[2020-08-25] VITALS (7 sets, daily range): BP systolic 138–180; BP diastolic 74–85
[2020-08-25 04:32] LABS: HEMATOCRIT 25.3 % (42.0-52.0); MEAN CORPUSCULAR HEMOGLOBIN 29.8 pg (27.0-33.0); MEAN CORPUSCULAR HGB CONC 33.6 g/dl (32.0-36.5); MEAN CORPUSCULAR VOLUME 88.8 fl (80.0-96.0); PLATELET COUNT, AUTOMATED 147 10^3/uL (150-450); RED BLOOD COUNT 2.85 10^6/uL (4.30-6.10)
[2020-08-25 04:33] LABS: HEMOGLOBIN 8.5 g/dl (13.5-17.5)
[2020-08-25 04:52] LABS: BLOOD UREA NITROGEN 11 MG/DL (7-18); CARBON DIOXIDE LEVEL 26 MEQ/L (21-32); CHLORIDE LEVEL 108 MEQ/L (98-107); CREATININE FOR GFR 1.07 MG/DL (0.70-1.30); GLOMERULAR FILTRATION RATE > 60.0 (>56); GLUCOSE, FASTING 193 MG/DL (70-100); POTASSIUM SERUM 3.2 MEQ/L (3.5-5.1); SODIUM LEVEL 140 MEQ/L (136-145)
[2020-08-25] MEDS ORDERED: POTASSIUM CHLORIDE 10 MEQ SR TABLET PO ONE (05:30)
[2020-08-25] MEDS: GABAPENTIN 300 MG CAP PO SCH ×3 (05:49→21:59)
[2020-08-25] MEDS: MAG SULF 1GM/100ML (MAG RUN) 1 GM in IV 1 EA IV SCH ×2 (05:50→07:17)
[2020-08-25] MEDS: SLF 3 ML SYR IV SCH ×3 (06:00→22:02)
[2020-08-25] MEDS: PANTOPRAZOLE 40MG VIAL (C9113 PER 1) IV SCH ×2 (09:12→22:02)
[2020-08-25] MEDS: DULoxetine 30 MG CAP (CYMBALTA) PO SCH ×2 (09:13→22:00)
[2020-08-25] MEDS: THIAMINE 100 MG TAB PO SCH (09:13)
[2020-08-25] MEDS: MULTIVITAMINS/MINERALS THERAP 1 TAB PO SCH (09:13)
[2020-08-25] MEDS: SUCRALFATE 1 GM TAB PO SCH ×4 (09:13→22:00)
[2020-08-25] MEDS: HumaLOG INSULIN (NovoLOG) PER UNIT SC SCH ×4 (09:13→22:02)
[2020-08-25] MEDS: lisinopriL 40 MG TAB PO SCH (09:14)
[2020-08-25] MEDS: CARVedilol 12.5 MG TAB PO SCH ×2 (09:14→22:01)
[2020-08-25] MEDS: FOLIC ACID 1 MG TAB PO SCH (09:14)
--- NOTE | 2020-08-25 12:28 | IPNPDOC ---
Text Note Date of Service The patient was seen on 08/25/20. NOTE Subjective: No bloody stools, Patient reports stool is more greenish and bl ackish in color. Complains of weakness of legs and disbalance . feels will not be able to climb stairs to his apartment. Will get PT eval. PHYSICAL EXAMINATION: Vitals: as below. GEN: no acute distress. Alert and oriented x 3. HEENT: NCAT, PERRLA, EOMI, moist mucous membranes. CARDIAC: Regular rate and rhythm, +S1, +S2, no noted m/r/g LUNGS: Clear to auscultation bilaterally. No wheezes, rales, or rhonchi. Patient is speaking in full sentences. ABD: Normoactive sounds, soft, non-tender, non-distended. No rebound tenderness or guarding. EXT: WWP, 2+ DP pulses, no LE edema NEURO: Cranial nerves 3-12 intact, moving all extremities PSYCH: AOx3 LABS and Radiology : Reviewed. 08/22 CT A/P: Lung bases: Unremarkable. There is a small hiatal hernia. Liver: Grossly unremarkable. Gallbladder: Prior cholecystectomy. Spleen: Grossly unremarkable.. Adrenals: Normal. Pancreas: Pancreatic calcifications are again noted. Kidneys: No hydronephrosis or nephrolithiasis. Ureters demonstrate no dilatation or calculus. Small and large bowel: Grossly unremarkable.. Free fluid: None. Abdominal aorta: No aneurysm. Adenopathy: None. Appendix: Not inflamed. Osseous structures: Mild degenerative changes of the spine without compression deformity. Pelvis: No mass. No bladder calculus seen. There is an IVC filter. There has been prior gastric surgery. Surgical clips are seen on both sides of the pelvis anteriorly. There is metallic internal fixation in the right pelvic bones. Metallic clips are seen along the anterior abdominal wall. A small ventral hernia in the midline contains a small amount of noninflamed fat. IMPRESSION: Postsurgical findings as above. No acute findings. 08/23 EGD: Findings: The examined esophagus was normal. Evidence of a gastrojejunostomy was found in the gastric body. This was characterized by congestion, moderate stenosis and ulceration. One partially obstructing non-bleeding cratered gastric ulcer of moderate to significant severity with a clean ulcer base (Alfredito Class III) was found at the anastomosis. The lesion was 12 mm in largest dimension. There is no evidence of perforation. For hemostasis, two hemostatic clips were successfully placed. There was no bleeding at the end of the procedure. A suture was found at the anastomosis. The examined jejunum was normal. Impression: - Normal esophagus. - A gastrojejunostomy was found, characterized by congestion, ulceration and moderate stenosis. - Partially obstructing non-bleeding gastric ulcer with a clean ulcer base (Alfredito Class III). There is no evidence of perforation. Clips were placed. - A suture was found in the stomach. - Normal examined jejunum. - No specimens collected. Recommendation: - Clear liquid diet today, then advance as tolerated to Post gastric bypass diet (small frequent meals and avoid fatty/ fried foods). - Continue present medications. - No ibuprofen, naproxen, or other non-steroidal anti-inflammatory drugs. - Use Protonix (pantoprazole) 40 mg PO BID for 3 months. - Use sucralfate suspension 1 gram PO QID. - Repeat upper endoscopy in 3 months to check healing. - Return to GI clinic in [facility] (address [address], [address], [place] [address]) in 4 -- 6 weeks. Please call GI clinic @ [phone] for apppointment date and time. - Return to primary care physician. 08/23/2020: Colonoscopy: Findings: The perianal and digital rectal examinations were normal. The terminal ileum appeared normal. One medium-sized localized angiectasia without bleeding was found in the ascending colon. For hemostasis, two hemostatic clips were successfully placed. There was no bleeding at the end of the procedure. A benign-appearing, intrinsic moderate stenosis measuring 1.5 cm (inner diameter) was found in the transverse colon and in the ascending colon and was traversed. Non-bleeding external and internal hemorrhoids were found during retroflexion. The hemorrhoids were medium-sized. The colon (entire examined portion) was significantly tortuous. Advancing the scope required using manual pressure. Impression: - The examined portion of the ileum was normal. - One non-bleeding colonic angioectasia. Clips were placed. - Stricture in the transverse colon and in the ascending colon. - Non-bleeding external and internal hemorrhoids. - Tortuous colon. - No specimens collected. Recommendation: - Clear liquid diet today, then advance as tolerated to Post gastric bypass diet (small frequent meals and avoid fatty/ fried foods). - Continue present medications. - Follow the recommendations as per the other procedure note. - Recommend medication for inflammatory bowel disease. - ( patient reports he is following with GI in [place] and want to go there.). - Repeat colonoscopy in 1 year to assess disease activity. Assessment and Plan: 55yo M with a history of NIDDM, alcohol use disorder, history of gastric bypass surgery c/b adhesions s/p laparoscopic lysis of adhesions after splenic flexure stricture, chart history of Crohn's, GERD, history of ELADIO, and a history of prior GIB who presented to the ED via EMS with walter painless hematochezia and admitted for GIB. GIB from bleeding anastomotic ulcer and colonic angiectasia. consulted GI --> had EGD/colo 08/23 with some upper ulcers that were clipped, and colonic angiectasia that was clipped as well and some non bleeding hemorrhoids GI recommended BID PPI and sucralfate regular diet. Acute blood loss anemia S/p 4 units of PRBC. monitor cbc and transfuse prn. Chronic anemia iron and vitamin B12 deficiency and with ongoing BRBPR Alcohol use disorder: No withdrawal. Multivitamin, thiamine and folate continue home naltrexone Hypertension held meds from recent relative hypotension when he presented. now resolved. coreg and lisinopril NIDDM: -hold home metformin -SSI AC/HS -FSBG AC/HS -hypoglycemia protocol RLS: likely 2/2 ELADIO -continue home ropinirole Peripheral neuropathy: -Continue home gabapentin GERD: -continue protonix BID -carafate Chronic pain: -continue home tramadol PRN for moderate pain and tylenol PRN for mild pain Crohn's disease: -Not on any therapies in the outpatient setting. To follow up with outpatient [facility] DVT ppx: TEDs and SCDs Dispo: Home in 24 hours if cleared by PT and HH stable. VS,Fishbone, I+O VS, Fishbone, I+O Laboratory Tests 08/25/20 03:42 Vital Signs Date Time Temp Pulse Resp B/P (MAP) Pulse Ox O2 Delivery O2 Flow Rate FiO2 08/25/20 10:43 97.9 60 17 153/84 (107) 99 Room Air I&O- Last 24 Hours up to 6 AM 08/25/20 06:00 Intake Total 2230 ml Output Total 750 ml Balance 1480 ml EDWEY PEREZ MD Aug 25, 2020 12:28
[2020-08-25 13:08] LABS: BASO % 0.3 % (0.0-1.0); EOS # 0.1 10^3/uL (0.0-0.5); EOS % 3.3 % (0.0-3.0); HEMATOCRIT 27.1 % (42.0-52.0); HEMOGLOBIN 8.9 g/dl (13.5-17.5); LYMPH # 0.7 10^3/uL (1.5-5.0); LYMPH % 17.5 % (24.0-44.0); MEAN CORPUSCULAR HEMOGLOBIN 29.9 pg (27.0-33.0); MEAN CORPUSCULAR HGB CONC 32.8 g/dl (32.0-36.5); MEAN CORPUSCULAR VOLUME 90.9 fl (80.0-96.0); MONO # 0.3 10^3/uL (0.0-0.8); MONO % 8.7 % (0.0-5.0); NEUTROPHILS # 2.7 10^3/uL (1.5-8.5); NEUTROPHILS % 69.9 % (36.0-66.0); PLATELET COUNT, AUTOMATED 150 10^3/uL (150-450); RED BLOOD COUNT 2.98 10^6/uL (4.30-6.10); WHITE BLOOD COUNT 3.9 10^3/uL (4.0-10.0)
[2020-08-25 13:21] LABS: MAGNESIUM LEVEL 1.8 MG/DL (1.8-2.4); POTASSIUM SERUM 3.5 MEQ/L (3.5-5.1)
[2020-08-25] MEDS: rOPINIRole 1MG TAB PO SCH (22:00)
[2020-08-25] MEDS: NALTREXONE 50 MG TAB PO SCH (22:01)
[2020-08-25] MEDS: ACETAMINOPHEN TAB 650MG DOSE (2X325MG) PO PRN (22:05)
[2020-08-26 06:00] VITALS: BP 180/78
[2020-08-26 06:33] LABS: BASO % 0.6 % (0.0-1.0); EOS # 0.2 10^3/uL (0.0-0.5); EOS % 4.9 % (0.0-3.0); HEMATOCRIT 25.1 % (42.0-52.0); HEMOGLOBIN 8.1 g/dl (13.5-17.5); LYMPH % 28.7 % (24.0-44.0); MEAN CORPUSCULAR HEMOGLOBIN 29.2 pg (27.0-33.0); MEAN CORPUSCULAR HGB CONC 32.3 g/dl (32.0-36.5); MEAN CORPUSCULAR VOLUME 90.6 fl (80.0-96.0); MONO # 0.4 10^3/uL (0.0-0.8); MONO % 10.3 % (0.0-5.0); NEUTROPHILS # 1.9 10^3/uL (1.5-8.5); NEUTROPHILS % 54.9 % (36.0-66.0); PLATELET COUNT, AUTOMATED 163 10^3/uL (150-450); RED BLOOD COUNT 2.77 10^6/uL (4.30-6.10); WHITE BLOOD COUNT 3.5 10^3/uL (4.0-10.0)
[2020-08-26] MEDS: lisinopriL 40 MG TAB PO SCH (06:34)
[2020-08-26] MEDS: GABAPENTIN 300 MG CAP PO SCH (06:34)
[2020-08-26 06:35] VITALS: BP 180/90
[2020-08-26] MEDS: CARVedilol 12.5 MG TAB PO SCH (06:35)
[2020-08-26] MEDS: SLF 3 ML SYR IV SCH (06:37)
[2020-08-26 06:46] LABS: BLOOD UREA NITROGEN 12 MG/DL (7-18); CALCIUM LEVEL 7.3 MG/DL (8.5-10.1); CARBON DIOXIDE LEVEL 28 MEQ/L (21-32); CHLORIDE LEVEL 106 MEQ/L (98-107); CREATININE FOR GFR 0.91 MG/DL (0.70-1.30); GLOMERULAR FILTRATION RATE > 60.0 (>56); GLUCOSE, FASTING 249 MG/DL (70-100); POTASSIUM SERUM 3.3 MEQ/L (3.5-5.1); SODIUM LEVEL 139 MEQ/L (136-145)
[2020-08-26] MEDS: HumaLOG INSULIN (NovoLOG) PER UNIT SC SCH ×2 (08:19→12:38)
[2020-08-26] MEDS: FOLIC ACID 1 MG TAB PO SCH (08:20)
[2020-08-26] MEDS: SUCRALFATE 1 GM TAB PO SCH ×2 (08:22→12:38)
[2020-08-26] MEDS: DULoxetine 30 MG CAP (CYMBALTA) PO SCH (08:22)
[2020-08-26] MEDS: MULTIVITAMINS/MINERALS THERAP 1 TAB PO SCH (08:22)
[2020-08-26] MEDS ORDERED: SUCR1TA PO (08:32)
[2020-08-26] MEDS ORDERED: THIA100TA PO (08:32)
[2020-08-26] MEDS ORDERED: ACET1TAB55 PO (08:32)
[2020-08-26] MEDS ORDERED: VITMTA PO (08:32)
[2020-08-26] MEDS ORDERED: OMEP1CAP73 PO (08:32)
[2020-08-26] MEDS ORDERED: FOLI1TAB11 PO (08:32)
[2020-08-26] MEDS ORDERED: PANTOPRAZOLE 40MG TAB (PROTONIX) PO SCH (09:00)
[2020-08-26] MEDS ORDERED: POTASSIUM CHLORIDE 10 MEQ SR TABLET PO SCH (09:00)
--- NOTE | 2020-11-04 15:05 | DS.PDOC ---
Discharge Summary General Date of Admission Aug 22, 2020 at 13:25 Date of Discharge 08/26/20 Discharge Summary PROCEDURES PERFORMED DURING STAY: 08/23 EGD: Findings: The examined esophagus was normal. Evidence of a gastrojejunostomy was found in the gastric body. This was characterized by congestion, moderate stenosis and ulceration. One partially obstructing non-bleeding cratered gastric ulcer of moderate to significant severity with a clean ulcer base (Alfredito Class III) was found at the anastomosis. The lesion was 12 mm in largest dimension. There is no evidence of perforation. For hemostasis, two hemostatic clips were successfully placed. There was no bleeding at the end of the procedure. A suture was found at the anastomosis. The examined jejunum was normal. Impression: - Normal esophagus. - A gastrojejunostomy was found, characterized by congestion, ulceration and moderate stenosis. - Partially obstructing non-bleeding gastric ulcer with a clean ulcer base (Alfredito Class III). There is no evidence of perforation. Clips were placed. - A suture was found in the stomach. - Normal examined jejunum. - No specimens collected. Recommendation: - Clear liquid diet today, then advance as tolerated to Post gastric bypass diet (small frequent meals and avoid fatty/ fried foods). - Continue present medications. - No ibuprofen, naproxen, or other non-steroidal anti-inflammatory drugs. - Use Protonix (pantoprazole) 40 mg PO BID for 3 months. - Use sucralfate suspension 1 gram PO QID. - Repeat upper endoscopy in 3 months to check healing. - Return to GI clinic in [facility] (address [address], [address], [place] [address]) in 4 -- 6 weeks. Please call GI clinic @ [phone] for apppointment date and time. - Return to primary care physician. 08/23/2020: Colonoscopy: Findings: The perianal and digital rectal examinations were normal. The terminal ileum appeared normal. One medium-sized localized angiectasia without bleeding was found in the ascending colon. For hemostasis, two hemostatic clips were successfully placed. There was no bleeding at the end of the procedure. A benign-appearing, intrinsic moderate stenosis measuring 1.5 cm (inner diameter) was found in the transverse colon and in the ascending colon and was traversed. Non-bleeding external and internal hemorrhoids were found during retroflexion. The hemorrhoids were medium-sized. The colon (entire examined portion) was significantly tortuous. Advancing the scope required using manual pressure. Impression: - The examined portion of the ileum was normal. - One non-bleeding colonic angiectasia. Clips were placed. - Stricture in the transverse colon and in the ascending colon. - Non-bleeding external and internal hemorrhoids. - Tortuous colon. - No specimens collected. Recommendation: - Clear liquid diet today, then advance as tolerated to Post gastric bypass diet (small frequent meals and avoid fatty/ fried foods). - Continue present medications. - Follow the recommendations as per the other procedure note. - Recommend medication for inflammatory bowel disease. - ( patient reports he is following with GI in [place] and want to go there.). - Repeat colonoscopy in 1 year to assess disease activity. DISCHARGE DIAGNOSES: GIB from Anastomotic Ulcer and colonic Angiectasia Acute blood loss anemia SECONDARY DIAGNOSIS: NIDDM, HTN, alcohol use disorder, history of gastric bypass surgery, Crohn's disease c/b adhesions s/p laparoscopic lysis of adhesions after splenic flexure stricture, GERD, Chronic anemia with iron deficiency and B12 deficiency, RLS, peripheral neuropathy, COMPLICATIONS/CHIEF COMPLAINT: Anemia Etoh Abuse Gi Bleeding. HOSPITAL COURSE: 55yo M with a history of NIDDM, alcohol use disorder, history of gastric bypass surgery, Crohn's disease c/b adhesions s/p laparoscopic lysis of adhesions after splenic flexure stricture, GERD, history of ELADIO, and a history of prior GIB who presented to the ED via EMS with walter painless hematochezia and admitted for GIB. GIB from bleeding anastomotic ulcer and colonic angiectasia. consulted GI --> had EGD/colo 08/23 with some upper ulcers that were clipped, and colonic angiectasia that was clipped as well and some non bleeding hemorrhoids GI recommended BID PPI and sucralfate regular diet. Acute blood loss anemia S/p 4 units of PRBC. bleeding has resolved. Chronic anemia iron and vitamin B12 deficiency and with ongoing BRBPR Alcohol use disorder: No withdrawal. Multivitamin, thiamine and folate continue home naltrexone Hypertension held meds from recent relative hypotension when he presented. now resolved. coreg and lisinopril NIDDM: resume home meds Metformin RLS: likely 2/2 ELADIO -continue home ropinirole Peripheral neuropathy: Continue home gabapentin GERD: continue protonix BID carafate Chronic pain: continue home tramadol PRN for moderate pain and tylenol PRN for mild pain Crohn's disease: Not on any therapies in the outpatient setting. To follow up with outpatient [facility] DISCHARGE MEDICATIONS: Please see below. ALLERGIES: Please see below. PHYSICAL EXAMINATION ON DISCHARGE: VITAL SIGNS: Please see below. GEN: no acute distress. Alert and oriented x 3. HEENT: NCAT, PERRLA, EOMI, moist mucous membranes. CARDIAC: Regular rate and rhythm, +S1, +S2, no noted m/r/g LUNGS: Clear to auscultation bilaterally. No wheezes, rales, or rhonchi. Patient is speaking in full sentences. ABD: Normoactive sounds, soft, non-tender, non-distended. No rebound tenderness or guarding. EXT: WWP, 2+ DP pulses, no LE edema NEURO: Cranial nerves 3-12 intact, moving all extremities PSYCH: AOx3 LABORATORY DATA: Please see below. IMAGIN/12 CT A/P: Lung bases: Unremarkable. There is a small hiatal hernia. Liver: Grossly unremarkable. Gallbladder: Prior cholecystectomy. Spleen: Grossly unremarkable.. Adrenals: Normal. Pancreas: Pancreatic calcifications are again noted. Kidneys: No hydronephrosis or nephrolithiasis. Ureters demonstrate no dilatation or calculus. Small and large bowel: Grossly unremarkable.. Free fluid: None. Abdominal aorta: No aneurysm. Adenopathy: None. Appendix: Not inflamed. Osseous structures: Mild degenerative changes of the spine without compression deformity. Pelvis: No mass. No bladder calculus seen. There is an IVC filter. There has been prior gastric surgery. Surgical clips are seen on both sides of the pelvis anteriorly. There is metallic internal fixation in the right pelvic bones. Metallic clips are seen along the anterior abdominal wall. A small ventral hernia in the midline contains a small amount of noninflamed fat. IMPRESSION: Postsurgical findings as above. No acute findings. ACTIVITY: [As tolerated]. DIET: DISPOSITION: 01 Home, Self-Care. DISCHARGE INSTRUCTIONS: PMD in 1 week, Dr Hickey in 3 to 4 weeks DISCHARGE CONDITION: [Stable]. TIME SPENT ON DISCHARGE: 35 minutes. Vital Signs/I&Os Vital Signs Label Value Date Time Patient Temperature 98.0 degrees F 08/26/20 0600 Temperature Source Oral 08/26/20 0600 Pulse 52 08/26/20 06 Respiratory Rate 18 bpm 08/26/20 0600 Pulse 57 08/26/20 0635 Blood Pressure Assessment 180/78 (112) 08/26/20 0600 Bedside Pulse Oximetry 100 % 08/26/20 0600 Laboratory Data Labs 24H Item Value Date Time White Blood Count 3.5 10^3/uL L 08/26/20 0534 Hemoglobin 8.1 g/dl L 08/26/20 0534 Mean Corpuscular Volume 90.6 fl 08/26/20 0534 Platelet Count 163 10^3/uL 08/26/20 0534 Sodium Level 139 MEQ/L 08/26/20 0534 Potassium Level 3.3 MEQ/L L 08/26/20 0534 Chloride Level 106 MEQ/L 08/26/20 0534 Carbon Dioxide Level 28 MEQ/L 08/26/20 0534 Anion Gap 5 MEQ/L L 08/26/20 0534 Blood Urea Nitrogen 12 MG/DL 08/26/20 0534 Creatinine 0.91 MG/DL 08/26/20 0534 Glomerular Filtration Rate > 60.0 08/26/20 0534 Fasting Glucose 249 MG/DL H 08/26/20 0534 Calcium Level 7.3 MG/DL L 08/26/20 0534 Discharge Medications Scheduled Carvedilol (Carvedilol) 12.5 Mg Tablet, 1 TAB PO BID Duloxetine Hcl (Duloxetine HCl) 60 Mg Capsule.dr, 60 MG PO BID, (Reported) Folic Acid (Folic Acid) 1 Mg Tablet, 1 MG PO DAILY, (Reported) Gabapentin (Gabapentin) 600 Mg Tablet, 600 MG PO TID, (Reported) Levofloxacin (Levofloxacin) 750 Mg Tablet, 750 MG PO DAILY@06 Lisinopril (Lisinopril) 40 Mg Tablet, 40 MG PO DAILY, (Reported) Magnesium Oxide (Magnesium Oxide) 400 Mg Tablet, 400 MG PO DAILY, (Reported) Metformin HCl (Metformin HCl ER) 500 Mg Tab.er.24h, 1,000 MG PO BID, (Reported) Midodrine HCl (Midodrine HCl) 5 Mg Tablet, 5 MG PO 08,12,16 Multivitamin,Therapeutic (Thera-Tabs) 1 Each Tablet, 1 TAB PO DAILY, (Reported) Naltrexone HCl (Naltrexone HCl) 50 Mg Tablet, 50 MG PO QHS, (Reported) [place]-3 Acid Ethyl Esters ([place]-3 Acid Ethyl Esters) 1 Gm Capsule, 4 GM PO DAILY, (Reported) Omeprazole (Omeprazole) 40 Mg Capsule.dr, 40 MG PO BID, (Reported) Ropinirole HCl (Ropinirole HCl) 0.5 Mg Tablet, 1 MG PO QHS, (Reported) Sucralfate (Sucralfate) 1 Gm/10 Ml Oral.susp, 10 ML PO ACHS, (Reported) Thiamine HCl (Thiamine HCl) 100 Mg Tablet, 100 MG PO DAILY, (Reported) Scheduled PRN Hydroxyzine HCl (Hydroxyzine HCl) 50 Mg Tablet, 50 MG PO TID PRN for ANXIETY/AGITATION, (Reported) Lidocaine/Prilocaine (Lidocaine-Prilocaine Cream) 2.5%/2.5% Cream..g., 1 APPLIC TOP BID PRN for PAIN, (Reported) APPLY TO AFFECTED AREA ON RIGHT LEG Allergies Coded Allergies: No Known Allergies (Unverified , 08/22/20) DEWEY PEREZ MD Nov 04, 2020 15:05
== END 2020-08-26 13:15 | disposition home or self-care (01) | DRG 811 ==
LOC: M ED 10:35 → EDBD 10:35 → M ED INP 13:25 → ENRESERV 13:46 → M PCU 14:54 → M MSPAV 08-25 10:42
PROVIDERS: ADMIT Internal Medicine; ATTEND Internal Medicine Nephrology
PROC: 30233N1 Transfusion of Nonautologous Red Blood Cells into Peripheral Vein, Percutaneous Approach (ICD-10-PCS; 2020-08-22)
PROC: 0W3P8ZZ Control Bleeding in Gastrointestinal Tract, Via Natural or Artificial Opening Endoscopic (ICD-10-PCS; principal; 2020-08-23 10:00)
DX: D62 Acute posthemorrhagic anemia (principal); K55.21 Angiodysplasia of colon with hemorrhage; K25.4 Chronic or unspecified gastric ulcer with hemorrhage; I10 Essential (primary) hypertension; E11.51 Type 2 diabetes mellitus with diabetic peripheral angiopathy without gangrene; F10.10 Alcohol abuse, uncomplicated; K21.9 Gastro-esophageal reflux disease without esophagitis; E53.8 Deficiency of other specified B group vitamins; G25.81 Restless legs syndrome; K44.9 Diaphragmatic hernia without obstruction or gangrene; Z79.899 Other long term (current) drug therapy; E78.5 Hyperlipidemia, unspecified; M54.2 Cervicalgia; M54.5 Low back pain; F17.220 Nicotine dependence, chewing tobacco, uncomplicated; I45.6 Pre-excitation syndrome; E55.9 Vitamin D deficiency, unspecified; F12.90 Cannabis use, unspecified, uncomplicated; K64.8 Other hemorrhoids

== ENCOUNTER → 2020-09-07 | Outpatient (REF) | payer OTHER, MEDICAID ==
[~2020-09-07] MED LIST changes: +ACET1TAB55 PO; +AMLO1TAB25 PO; +CARV25TA PO; +COMMENTS; +DOK1CAP7 PO; +FLOM0.4C39 PO; +LISI-538 PO; -LISI20TA33 PO; +LISI40TA; +LISI40TA PO; -LISI40TA4; +MAG400TA PO; +METF-838 PO; +OMEG1CAP4 PO; -OMEG1CAP85 PO; +OMEP-221 PO; +PEG1POW PO; +ROPI0.5T3 PO; +SENN18TA PO; +SUCR1TA PO; +SULF1TAB93 PO; +THERTAB52 PO; +THIA100T7 PO; +THIA100TA PO; +VITMTA PO
[2020-09-07 17:34] LABS: BASO # 0.1 10^3/uL (0.0-0.2); EOS # 0.2 10^3/uL (0.0-0.5); EOS % 3.5 % (0.0-3.0); HEMATOCRIT 29.7 % (42.0-52.0); HEMOGLOBIN 9.4 g/dl (13.5-17.5); LYMPH # 1.2 10^3/uL (1.5-5.0); LYMPH % 25.2 % (24.0-44.0); MEAN CORPUSCULAR HEMOGLOBIN 30.3 pg (27.0-33.0); MEAN CORPUSCULAR HGB CONC 31.6 g/dl (32.0-36.5); MEAN CORPUSCULAR VOLUME 95.8 fl (80.0-96.0); MONO # 0.5 10^3/uL (0.0-0.8); NEUTROPHILS # 2.9 10^3/uL (1.5-8.5); NEUTROPHILS % 59.9 % (36.0-66.0); PLATELET COUNT, AUTOMATED 322 10^3/uL (150-450); WHITE BLOOD COUNT 4.9 10^3/uL (4.0-10.0)
[2020-09-07 17:50] LABS: HEMOGLOBIN A1c 7.4 %
[2020-09-07 17:59] LABS: ALBUMIN 2.5 GM/DL (3.2-5.2); BILIRUBIN,TOTAL 0.5 MG/DL (0.2-1.0); CALCIUM LEVEL 8.1 MG/DL (8.5-10.1); CREATININE FOR GFR 1.37 MG/DL (0.70-1.30); GLOMERULAR FILTRATION RATE 57.6 (>56); TOTAL PROTEIN 5.3 GM/DL (6.4-8.2)
== END ==
LOC: M SFHCPLAZ 14:58
PROVIDERS: ATTEND Physician Assistant Medical
DX: K92.2 Gastrointestinal hemorrhage, unspecified (principal); E11.65 Type 2 diabetes mellitus with hyperglycemia
CPT/HCPCS: 36415; 80053; 83036; 85025; G0463

== ENCOUNTER 2020-09-17 21:38 | Emergency (ER) | payer OTHER, MEDICAID ==
[~2020-09-17 21:38] MED LIST changes: +AMIT25TA PO; -AMIT25TA17 PO; -AMLO1TAB25 PO; -DOK1CAP7 PO; -ESCI10TA16 PO; +ESCI10TA2 PO; -FLOM0.4C39 PO; -GABA-282 PO; +GABA-843 PO; -MAG400TA PO; -OMEP-221 PO; -PEG1POW PO; -SENN18TA PO; -SULF1TAB93 PO; -THERTAB52 PO; -THIA100T7 PO
[2020-09-17 22:55] VITALS: BP 180/80
== END 2020-09-17 22:57 | disposition home or self-care (01) ==
LOC: M ED 21:38
DX: F10.10 Alcohol abuse, uncomplicated (principal); I10 Essential (primary) hypertension; E78.5 Hyperlipidemia, unspecified; J44.9 Chronic obstructive pulmonary disease, unspecified; Z98.84 Bariatric surgery status; Z79.84 Long term (current) use of oral hypoglycemic drugs; Z79.899 Other long term (current) drug therapy

== ENCOUNTER 2020-09-18 19:09 | Inpatient (IN) | payer OTHER, MEDICAID ==
[~2020-09-18] VITALS: Ht 175.3 cm; Wt 85.7 kg
[~2020-09-18 19:09] MED LIST changes: -AMIT25TA PO; +AMIT25TA17 PO; +ESCI10TA16 PO; -ESCI10TA2 PO; +GABA-282 PO; -GABA-843 PO; -LISI-538 PO; +LISI20TA33 PO; -LISI40TA; -LISI40TA PO; +LISI40TA4; +LISI40TA4 PO; -OMEG1CAP4 PO; +OMEG1CAP85 PO
[2020-09-18] MEDS ORDERED: PANTOPRAZOLE 40MG VIAL (C9113 PER 1) IV ONE (20:15)
[2020-09-18] MEDS ORDERED: ONDANSETRON 4MG/2ML VIAL IV ONE (20:15)
[2020-09-18] MEDS ORDERED: NS 1,000 ML IV ONE ×2 (20:15→22:15)
[2020-09-18] MEDS ORDERED: SUCRALFATE 1 GM TAB PO ONE (20:15)
[2020-09-18] MEDS ORDERED: THIAMINE 100 MG TAB PO SCH (21:00)
[2020-09-18 21:11] LABS: BASO % 0.5 % (0.0-1.0); EOS % 0.3 % (0.0-3.0); HEMATOCRIT 29.8 % (42.0-52.0); HEMOGLOBIN 9.9 g/dl (13.5-17.5); LYMPH # 1.3 10^3/uL (1.5-5.0); LYMPH % 21.8 % (24.0-44.0); MEAN CORPUSCULAR HEMOGLOBIN 30.9 pg (27.0-33.0); MEAN CORPUSCULAR HGB CONC 33.2 g/dl (32.0-36.5); MEAN CORPUSCULAR VOLUME 93.1 fl (80.0-96.0); MONO # 0.5 10^3/uL (0.0-0.8); MONO % 7.6 % (0.0-5.0); NEUTROPHILS # 4.2 10^3/uL (1.5-8.5); NEUTROPHILS % 69.5 % (36.0-66.0); PLATELET COUNT, AUTOMATED 248 10^3/uL (150-450); WHITE BLOOD COUNT 6.1 10^3/uL (4.0-10.0)
[2020-09-18 21:21] LABS: INR 1.12; PROTHROMBIN TIME 14.7 SECONDS (12.5-14.3)
[2020-09-18 21:22] LABS: PARTIAL THROMBOPLASTIN TIME 25.1 SECONDS (24.2-38.5)
[2020-09-18 21:48] LABS: ALBUMIN 2.4 GM/DL (3.2-5.2); ALT/SGPT 65 U/L (12-78); BILIRUBIN,DIRECT 0.2 MG/DL (0.0-0.2); BILIRUBIN,TOTAL 0.5 MG/DL (0.2-1.0); BLOOD UREA NITROGEN 10 MG/DL (7-18); CALCIUM LEVEL 7.7 MG/DL (8.5-10.1); CARBON DIOXIDE LEVEL 26 MEQ/L (21-32); CHLORIDE LEVEL 101 MEQ/L (98-107); CK-MB VALUE MASS 42.2 NG/ML (<3.6); CPK CREATINE PHOSPHOKINASE 3114 U/L (39-308); CREATININE FOR GFR 1.11 MG/DL (0.70-1.30); ETHYL ALCOHOL (ETHANOL) 0.249 % (0.000-0.010); GLOMERULAR FILTRATION RATE > 60.0 (>56); GLUCOSE, FASTING 178 MG/DL (70-100); LIPASE 304 U/L (73-393); MB/CK RELATIVE INDEX 1.36 (< OR =4); POTASSIUM SERUM 3.6 MEQ/L (3.5-5.1); SODIUM LEVEL 137 MEQ/L (136-145); TOTAL PROTEIN 5.9 GM/DL (6.4-8.2); TROPONIN I 0.07 NG/ML (< 0.10)
[2020-09-18] MEDS ORDERED: ISOVUE-370 76% 100ML VIAL As Ordered ONE (21:51)
--- NOTE | 2020-09-18 23:30 | REPVR ---
PROCEDURE INFORMATION: Exam: CT Abdomen And Pelvis With Contrast Exam date and time: 09/18/2020 10:51 PM Age: 55 years old Clinical indication: Abdominal pain; Localized; Upper; Additional info: Upper abdominal pain TECHNIQUE: Imaging protocol: Computed tomography of the abdomen and pelvis with intravenous contrast. Radiation optimization: All CT scans at this facility use at least one of these dose optimization techniques: automated exposure control; mA and/or kV adjustment per patient size (includes targeted exams where dose is matched to clinical indication); or iterative reconstruction. Contrast material: ISOVUE 370; Contrast volume: 100 ml; Contrast route: INTRAVENOUS (IV); COMPARISON: CT ABD PELVIS W/O CONTRAST 08/22/2020 3:40 PM FINDINGS: Liver: The liver attenuation is 55 Hounsfield units and the spleen is 109 Hounsfield units. Gallbladder and bile ducts: Status post cholecystectomy. Mild biliary dilation which is attributed to prior cholecystectomy and is likely physiologic. The CBD measures 9 mm. Pancreas: Multiple coarse calcifications are noted in the pancreas including a large calculus which appears to be along caudal aspect of the ampulla. There is pancreatic atrophy. Peripancreatic induration, greatest about the head. The pancreatic duct appears slightly distended measuring up to 6 mm in the neck. Spleen: Normal. No splenomegaly. Adrenal glands: Normal. No mass. Kidneys and ureters: Normal. No hydronephrosis. Stomach and bowel: There has been gastric bypass with mild fluid in the bypassed stomach. Ingested foreign bodies are noted in the cecum just caudal to the ileocecal valve. Scattered areas of colonic wall thickening which include the ascending colon, descending colon, sigmoid and rectum. Appendix: A normal appendix is seen. Intraperitoneal space: Unremarkable. No free air. No significant fluid collection. Vasculature: There is an IVC filter in position. There is minimal atherosclerotic calcification of the abdominal aorta. Lymph nodes: Unremarkable. No enlarged lymph nodes. Urinary bladder: Unremarkable as visualized. Reproductive: Vas deferens calcification. Bones/joints: Metallic screws and plates in the posterior right acetabulum extending into the ischial tuberosity. Slight anterior wedge configuration of T9-T12 which appear to be chronic. Soft tissues: Multiple surgical clips are noted in the inguinal regions bilaterally. IMPRESSION: 1. 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 There is peripancreatic induration, particularly about the head which is slightly increased since the prior study suggesting acute pancreatitis. 2. Status post gastric bypass and cholecystectomy. There is mild retained fluid in the bypassed stomach. 3. Fatty infiltration of the liver. 4. IVC filter in position. 5. Metallic hardware in the posterior right acetabulum. 6. Question of minimal areas nonspecific segmental colitis. 7. There is calcification of the vas deferens consistent with diabetes. Electronically signed by: Sriram Steen On 09/18/2020 23:30:32 PM
[2020-09-18] MEDS ORDERED: LORazepam 2 MG TAB PO PRN (23:45)
[2020-09-19] VITALS (7 sets, daily range): BP systolic 138–182; BP diastolic 76–90
[2020-09-19] MEDS ORDERED: OMEP-221 PO (00:05)
[2020-09-19] MEDS ORDERED: THIA100T7 PO (00:05)
[2020-09-19] MEDS ORDERED: THERTAB52 PO (00:05)
[2020-09-19] MEDS ORDERED: FOLI1TAB11 PO (00:05)
[2020-09-19] MEDS ORDERED: MAALOX 30 ML SUSP *UDC PO PRN (04:00)
[2020-09-19] MEDS ORDERED: LORazepam 2 MG TAB PO PRN (04:00)
--- NOTE | 2020-09-19 04:31 | REPVR ---
PROCEDURE INFORMATION: Exam: CT Head Without Contrast Exam date and time: 09/19/2020 3:58 AM Age: 55 years old Clinical indication: Pain; Other: ? Fall; Additional info: Alcoholic, fall? TECHNIQUE: Imaging protocol: Computed tomography of the head without contrast. Radiation optimization: All CT scans at this facility use at least one of these dose optimization techniques: automated exposure control; mA and/or kV adjustment per patient size (includes targeted exams where dose is matched to clinical indication); or iterative reconstruction. COMPARISON: CT Head without contrast 03/15/2019 10:42 PM FINDINGS: Brain: There is mild patchy low attenuation of deep white matter for age with area of peripheral infarct in the left parietal lobe. There is moderate prominence of the peripheral sulci for age. Cerebral ventricles: There is moderate prominence of the central ventricular system for age. Bones/joints: Depression of the right zygomatic arch consistent with old fracture. Paranasal sinuses: Visualized sinuses are unremarkable. No fluid levels. Mastoid air cells: Visualized mastoid air cells are well aerated. Soft tissues: Unremarkable. IMPRESSION: 1. 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 2. Depression of the posterior right zygomatic arch consistent with old fracture which is similar. 3. No acute interval intracranial process is identified. Electronically signed by: Sriram Steen On 09/19/2020 04:31:20 AM
[2020-09-19] MEDS ORDERED: GLUCAGON INJ 1MG VIAL SC PRN (04:45)
[2020-09-19] MEDS ORDERED: DEXTROSE 50% 50 ML SYRINGE IV PRN (04:45)
[2020-09-19] MEDS ORDERED: NS 1,000 ML IV SCH ×2 (04:45→06:30)
[2020-09-19] MEDS ORDERED: hydrOXYzine 50 MG TAB PO PRN (04:45)
[2020-09-19] MEDS ORDERED: EMLA CREAM 5GM TUBE (LIDOCAINE/PRILOCAINE) TOP PRN (04:45)
[2020-09-19] MEDS ORDERED: GLUCOSE 4GM CHEW TABLET PO PRN (04:45)
[2020-09-19 06:14] LABS: HEMOGLOBIN A1c 7.8 %
[2020-09-19] MEDS: CARVedilol 12.5 MG TAB PO SCH ×2 (06:18→21:01)
[2020-09-19] MEDS: HEPARIN SOD (PORCINE) 5000UNITS/ML 1ML VIAL/SYRINGE SQ SCH ×3 (06:18→21:01)
[2020-09-19] MEDS: lisinopriL 40 MG TAB PO SCH (06:18)
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
[2020-09-19] MEDS: ONDANSETRON 4MG/2ML VIAL IV PRN (07:39)
[2020-09-19] MEDS ORDERED: metFORMIN XR 500MG TAB *GLUCOPHAGE XR PO SCH (08:00)
[2020-09-19] MEDS ORDERED: PANTOPRAZOLE 40MG VIAL (C9113 PER 1) IV SCH (09:00)
[2020-09-19] MEDS ORDERED: FOLIC ACID 1 MG TAB PO SCH (09:00)
[2020-09-19] MEDS ORDERED: MULTIVITAMINS/MINERALS THERAP 1 TAB PO SCH (09:00)
[2020-09-19] MEDS: FOLIC ACID 1 MG TAB PO SCH (09:03)
[2020-09-19] MEDS: HumaLOG INSULIN (NovoLOG) PER UNIT SC SCH ×4 (09:03→20:48)
[2020-09-19] MEDS: MULTIVITAMINS/MINERALS THERAP 1 TAB PO SCH (09:03)
[2020-09-19] MEDS: DULoxetine 30 MG CAP (CYMBALTA) PO SCH ×2 (09:03→21:00)
[2020-09-19] MEDS: GABAPENTIN 300 MG CAP PO SCH ×3 (09:03→21:00)
[2020-09-19] MEDS: DOCUSATE SODIUM 100MG CAPSULE PO SCH ×2 (09:03→21:00)
[2020-09-19] MEDS: NS 1,000 ML IV SCH ×6 (09:34→21:17)
[2020-09-19] MEDS: THIAMINE 100 MG TAB PO SCH ×2 (09:34→20:59)
[2020-09-19] MEDS ORDERED: POTASSIUM CHLORIDE 10 MEQ SR TABLET PO ONE (10:00)
[2020-09-19] MEDS ORDERED: MAG SULF 1GM/100ML (MAG RUN) 1 GM in IV 1 EA IV ONE (10:00)
[2020-09-19] MEDS ORDERED: CALCIUM GLUCONATE 1,000 MG in D5W MINI-BAG PLUS 100 ML IV ONE (10:00)
[2020-09-19 10:53] LABS: HEMOGLOBIN 8.7 g/dl (13.5-17.5); MEAN CORPUSCULAR HEMOGLOBIN 31.3 pg (27.0-33.0); MEAN CORPUSCULAR HGB CONC 33.5 g/dl (32.0-36.5); MEAN CORPUSCULAR VOLUME 93.5 fl (80.0-96.0); PLATELET COUNT, AUTOMATED 192 10^3/uL (150-450); RED BLOOD COUNT 2.78 10^6/uL (4.30-6.10)
[2020-09-19] MEDS ORDERED: CEPACOL LOZENGE PO PRN (11:15)
[2020-09-19] MEDS ORDERED: CHLORASEPTIC SPRAY MT PRN (11:15)
[2020-09-19] MEDS ORDERED: CEPACOL LOZENGE PO ONE (11:15)
[2020-09-19 11:33] LABS: BLOOD UREA NITROGEN 8 MG/DL (7-18); CALCIUM LEVEL 6.5 MG/DL (8.5-10.1); CARBON DIOXIDE LEVEL 26 MEQ/L (21-32); CHLORIDE LEVEL 106 MEQ/L (98-107); CPK CREATINE PHOSPHOKINASE 1444 U/L (39-308); CREATININE FOR GFR 0.75 MG/DL (0.70-1.30); GLOMERULAR FILTRATION RATE > 60.0 (>56); GLUCOSE, FASTING 108 MG/DL (70-100); SODIUM LEVEL 140 MEQ/L (136-145)
[2020-09-19 12:24] LABS: MAGNESIUM LEVEL 1.5 MG/DL (1.8-2.4)
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
[2020-09-19] MEDS ORDERED: NITROGLYCERIN 0.4 MG SUBL TABLET SL STA (13:45)
[2020-09-19] MEDS ORDERED: traMADol 50 MG TAB PO ONE (14:00)
[2020-09-19] MEDS ORDERED: GI COCKTAIL 50ML BTL(HYOSCYAMINE/MAALOX/LIDOCAINE VISCOUS)(1:3:1) PO PRN (14:00)
[2020-09-19] MEDS ORDERED: MORPHINE 4 MG/ML 1ML VIAL/SYRINGE (J2270) IV ONE (14:00)
[2020-09-19] MEDS: NITROGLYCERIN 2% OINT 1 GM *U/D* PKT TOP SCH ×2 (14:15→21:02)
[2020-09-19] MEDS: NITROGLYCERIN 0.4 MG SUBL TABLET SL PRN ×3 (14:17→21:24)
[2020-09-19] MEDS ORDERED: cloNIDine 0.2 MG TAB PO ONE (14:30)
[2020-09-19] MEDS ORDERED: GI COCKTAIL 50ML BTL(HYOSCYAMINE/MAALOX/LIDOCAINE VISCOUS)(1:3:1) PO ONE (15:00)
[2020-09-19 15:05] LABS: CK-MB VALUE MASS 10.5 NG/ML (<3.6); MB/CK RELATIVE INDEX 0.89 (< OR =4); TROPONIN I 0.03 NG/ML (< 0.10)
[2020-09-19] MEDS: SUCRALFATE 1 GM TAB PO SCH (17:36)
--- NOTE | 2020-09-19 17:57 | ECGEPIP ---
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
[2020-09-19 20:48] LABS: CK-MB VALUE MASS 7.5 NG/ML (<3.6); MAGNESIUM LEVEL 1.6 MG/DL (1.8-2.4); MB/CK RELATIVE INDEX 0.77 (< OR =4); POTASSIUM SERUM 3.4 MEQ/L (3.5-5.1); TROPONIN I 0.03 NG/ML (< 0.10)
[2020-09-19] MEDS: PANTOPRAZOLE 40MG TAB (PROTONIX) PO SCH (20:59)
[2020-09-19] MEDS: TAMSULOSIN 0.4 MG CAP PO SCH (20:59)
[2020-09-19] MEDS: rOPINIRole 1MG TAB PO SCH (21:00)
[2020-09-19] MEDS: NALTREXONE 50 MG TAB PO SCH (21:01)
[2020-09-20] MEDS: SUCRALFATE 1 GM TAB PO SCH ×4 (00:22→17:44)
[2020-09-20 02:00] VITALS: BP 142/78
[2020-09-20] MEDS: NITROGLYCERIN 2% OINT 1 GM *U/D* PKT TOP SCH ×2 (02:19→08:44)
[2020-09-20 02:44] LABS: CK-MB VALUE MASS 3.8 NG/ML (<3.6); MB/CK RELATIVE INDEX 0.56 (< OR =4); TROPONIN I 0.02 NG/ML (< 0.10)
[2020-09-20] MEDS ORDERED: ACETAMINOPHEN TAB 650MG DOSE (2X325MG) PO ONE (04:00)
[2020-09-20] MEDS: NS 1,000 ML IV SCH ×3 (05:15→17:57)
[2020-09-20 06:00] VITALS: BP 135/71
[2020-09-20] MEDS: HEPARIN SOD (PORCINE) 5000UNITS/ML 1ML VIAL/SYRINGE SQ SCH ×3 (06:13→22:10)
[2020-09-20 06:17] LABS: HEMOGLOBIN 8.2 g/dl (13.5-17.5); MEAN CORPUSCULAR HEMOGLOBIN 31.2 pg (27.0-33.0); MEAN CORPUSCULAR HGB CONC 32.8 g/dl (32.0-36.5); MEAN CORPUSCULAR VOLUME 95.1 fl (80.0-96.0); PLATELET COUNT, AUTOMATED 162 10^3/uL (150-450); RED BLOOD COUNT 2.63 10^6/uL (4.30-6.10); WHITE BLOOD COUNT 8.5 10^3/uL (4.0-10.0)
[2020-09-20 06:57] LABS: ALBUMIN 1.7 GM/DL (3.2-5.2); ALT/SGPT 56 U/L (12-78); BILIRUBIN,TOTAL 0.7 MG/DL (0.2-1.0); BLOOD UREA NITROGEN 10 MG/DL (7-18); CALCIUM LEVEL 6.8 MG/DL (8.5-10.1); CARBON DIOXIDE LEVEL 25 MEQ/L (21-32); CHLORIDE LEVEL 104 MEQ/L (98-107); CREATININE FOR GFR 0.85 MG/DL (0.70-1.30); GLOMERULAR FILTRATION RATE > 60.0 (>56); GLUCOSE, FASTING 145 MG/DL (70-100); MAGNESIUM LEVEL 1.6 MG/DL (1.8-2.4); POTASSIUM SERUM 3.5 MEQ/L (3.5-5.1); SODIUM LEVEL 134 MEQ/L (136-145)
--- NOTE | 2020-09-20 08:07 | REP ---
INDICATION: sob s/p ivf r/o edema COMPARISON: 06/03/2020 TECHNIQUE: PA and lateral. FINDINGS: The mediastinum and cardiac silhouette are normal. The lung gillis are clear and without acute consolidation, effusion, or pneumothorax. The skeletal structures are intact and normal. IMPRESSION: No acute cardiopulmonary process. <Electronically signed by Marcos Morrow > 09/20/20 0803
[2020-09-20] MEDS: DULoxetine 30 MG CAP (CYMBALTA) PO SCH ×2 (08:31→22:09)
[2020-09-20] MEDS: PANTOPRAZOLE 40MG TAB (PROTONIX) PO SCH ×2 (08:31→22:07)
[2020-09-20] MEDS: FOLIC ACID 1 MG TAB PO SCH (08:31)
[2020-09-20] MEDS: TAMSULOSIN 0.4 MG CAP PO SCH ×2 (08:31→22:07)
[2020-09-20] MEDS: THIAMINE 100 MG TAB PO SCH ×2 (08:31→22:07)
[2020-09-20] MEDS: HumaLOG INSULIN (NovoLOG) PER UNIT SC SCH ×4 (08:31→21:00)
[2020-09-20] MEDS: lisinopriL 40 MG TAB PO SCH (08:32)
[2020-09-20] MEDS: GABAPENTIN 300 MG CAP PO SCH ×3 (08:32→22:07)
[2020-09-20] MEDS: DOCUSATE SODIUM 100MG CAPSULE PO SCH ×2 (08:32→22:07)
[2020-09-20] MEDS: MULTIVITAMINS/MINERALS THERAP 1 TAB PO SCH (08:32)
[2020-09-20] MEDS: CARVedilol 12.5 MG TAB PO SCH ×2 (08:33→22:09)
[2020-09-20] MEDS ORDERED: MAG SULF 1GM/100ML (MAG RUN) 1 GM in IV 1 EA IV ONE (09:00)
[2020-09-20 14:00] VITALS: BP_SYST 142; BP_SYST 147; BP_DIAS 64; BP_DIAS 80
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
[2020-09-20] MEDS: ISOSORBIDE DIN. (ISORDIL) 20 MG TAB PO SCH (17:46)
[2020-09-20] MEDS: NICOTINE 21MG/24HR 1 EA TRANSDERMAL TD PRN (18:18)
[2020-09-20 19:26] VITALS: BP 134/78
[2020-09-20 22:00] VITALS: BP 146/82
[2020-09-20] MEDS: rOPINIRole 1MG TAB PO SCH (22:07)
[2020-09-20] MEDS: NALTREXONE 50 MG TAB PO SCH (22:09)
--- NOTE | 2020-09-20 23:12 | ECGEPIP ---
[facility] Test Date: 2020-09-19 Pat Name: GWEN JOLLEY Department: Room: [place] [address] Gender: Male Case Briefer: GREER : 1965 Requested By: VINOD Godinez Order Number: [id number] Reading MD: Kem Garcia Measurements Intervals [place] Rate: 57 P: 27 DC: 134 QRS: 11 QRSD: 89 T: 0 QT: 213 QTc: 208 Interpretive Statements SINUS BRADYCARDIA NONSPECIFIC T-WAVE ABNORMALITY Poor R wave progression vs prior anterior wall infarct Compared to prior tracings(3) in the system, no significant changes Electronically Signed on 09-20-2020 23:12:20 EST by Kem Garcia
[2020-09-21] MEDS: SUCRALFATE 1 GM TAB PO SCH ×4 (00:11→17:04)
[2020-09-21] MEDS: ACETAMINOPHEN TAB 650MG DOSE (2X325MG) PO PRN ×3 (00:11→22:45)
[2020-09-21] MEDS: NS 1,000 ML IV SCH ×4 (00:12→22:14)
[2020-09-21] MEDS: ISOSORBIDE DIN. (ISORDIL) 20 MG TAB PO SCH ×4 (05:58→18:31)
[2020-09-21] MEDS: HEPARIN SOD (PORCINE) 5000UNITS/ML 1ML VIAL/SYRINGE SQ SCH ×3 (05:59→22:00)
[2020-09-21 06:00] VITALS: BP 131/75
[2020-09-21] MEDS: ONDANSETRON 4MG/2ML VIAL IV PRN (06:23)
[2020-09-21] MEDS: HumaLOG INSULIN (NovoLOG) PER UNIT SC SCH ×4 (08:40→22:14)
[2020-09-21] MEDS: GABAPENTIN 300 MG CAP PO SCH ×3 (08:41→22:12)
[2020-09-21] MEDS: lisinopriL 40 MG TAB PO SCH (08:41)
[2020-09-21] MEDS: THIAMINE 100 MG TAB PO SCH (08:41)
[2020-09-21] MEDS: FOLIC ACID 1 MG TAB PO SCH (08:41)
[2020-09-21] MEDS: PANTOPRAZOLE 40MG TAB (PROTONIX) PO SCH ×2 (08:41→22:12)
[2020-09-21] MEDS: TAMSULOSIN 0.4 MG CAP PO SCH ×2 (08:41→22:16)
[2020-09-21] MEDS: DULoxetine 30 MG CAP (CYMBALTA) PO SCH ×2 (08:41→22:12)
[2020-09-21] MEDS: MULTIVITAMINS/MINERALS THERAP 1 TAB PO SCH (08:42)
[2020-09-21] MEDS: DOCUSATE SODIUM 100MG CAPSULE PO SCH ×2 (08:42→21:00)
[2020-09-21] MEDS: CARVedilol 12.5 MG TAB PO SCH ×2 (08:49→22:13)
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
[2020-09-21 12:55] LABS: BASO % 0.4 % (0.0-1.0); EOS # 0.3 10^3/uL (0.0-0.5); EOS % 4.8 % (0.0-3.0); HEMATOCRIT 26.7 % (42.0-52.0); HEMOGLOBIN 8.6 g/dl (13.5-17.5); LYMPH # 0.7 10^3/uL (1.5-5.0); LYMPH % 14.1 % (24.0-44.0); MEAN CORPUSCULAR HEMOGLOBIN 31.3 pg (27.0-33.0); MEAN CORPUSCULAR HGB CONC 32.2 g/dl (32.0-36.5); MEAN CORPUSCULAR VOLUME 97.1 fl (80.0-96.0); MONO # 0.3 10^3/uL (0.0-0.8); MONO % 4.8 % (0.0-5.0); NEUTROPHILS # 3.9 10^3/uL (1.5-8.5); NEUTROPHILS % 75.7 % (36.0-66.0); PLATELET COUNT, AUTOMATED 170 10^3/uL (150-450); RED BLOOD COUNT 2.75 10^6/uL (4.30-6.10); WHITE BLOOD COUNT 5.2 10^3/uL (4.0-10.0)
[2020-09-21 13:10] LABS: FOLATE 14.3 NG/ML (>5.4); VITAMIN B12 LEVEL 1510 PG/ML (247-911)
[2020-09-21 13:15] LABS: CK-MB VALUE MASS 4.6 NG/ML (<3.6); CPK CREATINE PHOSPHOKINASE 305 U/L (39-308); MB/CK RELATIVE INDEX 1.51 (< OR =4); NT-PRO BNP 845 PG/ML (<125); TROPONIN I < 0.02 NG/ML (< 0.10)
[2020-09-21 13:46] LABS: ALBUMIN 1.9 GM/DL (3.2-5.2); ALT/SGPT 47 U/L (12-78); AMYLASE 25 U/L (25-115); BILIRUBIN,TOTAL 0.5 MG/DL (0.2-1.0); BLOOD UREA NITROGEN 8 MG/DL (7-18); CALCIUM LEVEL 7.1 MG/DL (8.5-10.1); CARBON DIOXIDE LEVEL 24 MEQ/L (21-32); CHLORIDE LEVEL 103 MEQ/L (98-107); CREATININE FOR GFR 0.74 MG/DL (0.70-1.30); GLOMERULAR FILTRATION RATE > 60.0 (>56); GLUCOSE, FASTING 133 MG/DL (70-100); LIPASE 151 U/L (73-393); MAGNESIUM LEVEL 1.5 MG/DL (1.8-2.4); POTASSIUM SERUM 3.2 MEQ/L (3.5-5.1); SODIUM LEVEL 134 MEQ/L (136-145); TOTAL PROTEIN 4.7 GM/DL (6.4-8.2)
[2020-09-21 14:00] VITALS: BP 116/89
[2020-09-21] MEDS ORDERED: NS 500 ML IV ONE ×2 (21:45→23:00)
[2020-09-21] MEDS ORDERED: PANTOPRAZOLE 40MG VIAL (C9113 PER 1) IV ONE ×2 (22:00→22:30)
[2020-09-21 22:05] LABS: MEAN CORPUSCULAR HGB CONC 31.6 g/dl (32.0-36.5); PLATELET COUNT, AUTOMATED 129 10^3/uL (150-450); RED BLOOD COUNT 1.97 10^6/uL (4.30-6.10)
[2020-09-21 22:07] LABS: HEMATOCRIT 19.3 % (42.0-52.0); HEMOGLOBIN 6.1 g/dl (13.5-17.5)
[2020-09-21] MEDS: rOPINIRole 1MG TAB PO SCH (22:12)
[2020-09-21 22:29] LABS: ALBUMIN 1.3 GM/DL (3.2-5.2); ALT/SGPT 29 U/L (12-78); BILIRUBIN,TOTAL 0.5 MG/DL (0.2-1.0); BLOOD UREA NITROGEN 8 MG/DL (7-18); CALCIUM LEVEL 6.4 MG/DL (8.5-10.1); CARBON DIOXIDE LEVEL 22 MEQ/L (21-32); CHLORIDE LEVEL 104 MEQ/L (98-107); GLOMERULAR FILTRATION RATE > 60.0 (>56); GLUCOSE, FASTING 233 MG/DL (70-100); POTASSIUM SERUM 3.3 MEQ/L (3.5-5.1); SODIUM LEVEL 134 MEQ/L (136-145); TOTAL PROTEIN 3.5 GM/DL (6.4-8.2)
[2020-09-21] MEDS: NALTREXONE 50 MG TAB PO SCH (22:45)
[2020-09-21 23:12] VITALS: BP 96/59
[2020-09-21 23:27] VITALS: BP 112/64
[2020-09-22] VITALS (14 sets, daily range): BP systolic 88–143; BP diastolic 48–74
[2020-09-22] MEDS: SUCRALFATE 1 GM TAB PO SCH ×5 (01:29→23:14)
[2020-09-22] MEDS ORDERED: NS 500 ML IV ONE (02:15)
--- NOTE | 2020-09-22 02:40 | IPNPDOC ---
Text Note Date of Service The patient was seen on 09/22/20. NOTE Nursing staff reported single episode of hematochezia at approximately 2130, bright red blood with mixed clots, patient informed me he had a history of GI bleeds in the past and history of gastric ulcers from a recent endoscopy he had done. Put in orders for CBC, CMP, 500 ml NS bolus as patient's blood pressure was reported to be 100/53, type and cross for 2 units, and IV pantoprazole order. At 0100 was alerted to 2nd episode of hematochezia with patient's blood pressure still low with SBP in 90s so another 500 ml NS bolus was ordered. Following 3 episode of hematochezia, patient was transferred to PCU and orders were placed for an additional 2 units of PRBCs, patient was almost done with 2nd unit at that time. Plans to repeat CBC after 2nd dose and give 3rd unit of blood. Also gave orders for repeat 500 ml NS bolus as patient's MAP was ~65. On evaluation patient reported continuing to feel lousy but with no new or changed complaints. Updated attending and staff in person following 1st and 3rd episode of hematochezia as to my plan moving forward. Will continue to follow patient's condition closely. VS,Fishbone, I+O VS, Fishbone, I+O Laboratory Tests 09/21/20 12:07 09/21/20 21:51 09/21/20 21:54 Vital Signs Date Time Temp Pulse Resp B/P (MAP) Pulse Ox O2 Delivery O2 Flow Rate FiO2 09/22/20 01:34 98.2 79 16 93/74 100 Room Air 09/19/20 14:14 2.0 I&O- Last 24 Hours up to 6 AM 09/22/20 06:00 Intake Total 1990 ml Output Total 2200 ml Balance -210 ml GME ATTESTATION GME ATTESTATION My faculty preceptor for this patient encounter was physically present during the encounter and was fully available. All aspects of the patient interview, examination, medical decision making process, and medical care plan development were reviewed and approved by the faculty preceptor. The faculty preceptor is aware and concurs with the plan as stated in the body of this note and will attest to such by his/her cosignature. ATTENDING NOTE Patient was seen at bedside. Having gross hematochezia. Hypotensive MAP <65. Hgb 6.1 despite [address] Tripp was informed, will take patient for emergent scope in OR. Massive transfusion protocol. IV bolus 1L. Femoral central line placed (see procedure note). Patient consented and signed. ILDEFONSO WIGGINS DO Sep 22, 2020 02:40 LANEY RAMIREZ MD Sep 22, 2020 05:36
[2020-09-22 03:07] LABS: MEAN CORPUSCULAR HEMOGLOBIN 30.7 pg (27.0-33.0); MEAN CORPUSCULAR HGB CONC 31.8 g/dl (32.0-36.5); MEAN CORPUSCULAR VOLUME 96.6 fl (80.0-96.0); RED BLOOD COUNT 2.05 10^6/uL (4.30-6.10); WHITE BLOOD COUNT 5.5 10^3/uL (4.0-10.0)
[2020-09-22 03:10] LABS: HEMATOCRIT 19.8 % (42.0-52.0); HEMOGLOBIN 6.3 g/dl (13.5-17.5); PLATELET COUNT, AUTOMATED 84 10^3/uL (150-450)
[2020-09-22] MEDS ORDERED: NS 1,000 ML IV ONE (04:00)
--- NOTE | 2020-09-22 05:57 | ROOPDOC ---
[facility] Report Of Operation Report of Operation DATE OF PROCEDURE: 09/22/20 PREPROCEDURE DIAGNOSES: hypotension 2/2 acute hemorrhage POSTPROCEDURE DIAGNOSES: hypotension 2/2 acute hemorrhage. PROCEDURE: femoral triple lumen CVC placement. PERFORMED BY: LANEY RAMIREZ MD COAT EXAMINER: ILDEFONSO WIGGINS MD ANESTHESIA: 2% LIDOCAINE 5 ML. ESTIMATED BLOOD LOSS: Approximately 5 mL. COMPLICATIONS: NO IMMEDIATE COMPLICATIONS PROCEDURE NOTE: Ultrasound Used: YES CONSENT: Consent was obtained from patient prior to the procedure. Indications, risks, and benefits were explained at length. PROCEDURE SUMMARY: I washed my hands prior to starting sterile technique. A time out was performed. My hands were washed immediately prior to the procedure. I wore a surgical cap, mask with protective eyewear, sterile gown and sterile gloves throughout the procedure. The RIGHT inguinal region was prepped using chlorhexidine scrub and draped in sterile fashion using a full drape and sterile probe cover employed. The femoral pulse was identified. Anesthesia was achieved using 2% lidocaine. US was used to position and insert the introducer needle medial to the femoral artery, inferior to the inguinal crease and into the femoral vein. Venous blood was withdrawn. The syringe was removed and a guidewire was advanced into the introducer needle. A small incision was made at the skin surface with a scalpel and the introducer needle was exchanged for a dilator over the guidewire. After appropriate dilation was obtained, the dilator was exchanged over the wire for a triple lumen central venous catheter. The wire was removed and the catheter was sutured in place at 16 cm. A sterile sorbaview shield was placed over the catheter at the insertion site. The patient tolerated the procedure without any hemodynamic compromise. At time of procedure completion, all ports aspirated and flushed properly. Estimated blood loss is 5 cc. CVC catheter placement was confirmed with pelvic XR. LANEY RAMIREZ MD Sep 22, 2020 05:57
[2020-09-22] MEDS ORDERED: propofoL 200 MG/20 ML VIAL As Ordered ONE (06:25)
[2020-09-22] MEDS ORDERED: PHENYLephrine 500MCG 5ML (100MCG/ML) SYRINGE As Ordered ONE (06:25)
[2020-09-22] MEDS ORDERED: SUCCINYLCHOLINE 100 MG/5 ML SYRINGE (J0330) As Ordered ONE (06:25)
[2020-09-22] MEDS ORDERED: ETOMIDATE INJ 20MG/10ML VIAL As Ordered ONE (06:25)
[2020-09-22] MEDS ORDERED: MIDAZOLAM INJ 2MG/2ML VIAL (J2250 PER 1MG) As Ordered ONE (06:25)
[2020-09-22] MEDS ORDERED: LIDOCAINE 2% W/EPINEPHRINE 20ML VIAL **PRES FREE As Ordered ONE (06:25)
[2020-09-22] MEDS ORDERED: ePHEDrine SULFATE 25 MG/5 ML(5MG/ML) SYRINGE As Ordered ONE (06:25)
[2020-09-22] MEDS ORDERED: ONDANSETRON 4MG/2ML VIAL As Ordered ONE (06:25)
[2020-09-22] MEDS ORDERED: fentaNYL 100 MCG/2 ML INJECTION (J3010) As Ordered ONE (06:25)
[2020-09-22] MEDS ORDERED: dexameTHASONE 4 MG/ML 1ML VIAL (J1100 PER 1MG) As Ordered ONE (06:25)
--- NOTE | 2020-09-22 06:34 | REPVR ---
PROCEDURE INFORMATION: Exam: XR Abdomen, 1 View Exam date and time: 09/22/2020 5:51 AM Age: 55 years old Clinical indication: Device placement; Vascular catheter; Additional info: Post femural central line insertion TECHNIQUE: Imaging protocol: XR of the abdomen. Views: Frontal supine view of the abdomen. 1 View. COMPARISON: CT ABD/PEL W/IV CONTRAST ONLY 09/18/2020 10:47 PM FINDINGS: Tubes, catheters and devices: Right femoral line terminating at the level of L5 transverse process. Gastrointestinal tract: Normal. No bowel dilation. Intraperitoneal space: Surgical sylvester in the right lower quadrant. Vasculature: IVC filter. Bones/joints: Right iliac bone surgical hardware partially seen. Degenerative changes. IMPRESSION: .Right femoral line terminating at the level of L5 transverse process. Electronically signed by: Flor Oden On 09/22/2020 06:34:57 AM
[2020-09-22] MEDS ORDERED: VASOPRESSIN INJ 20 UNITS/ML VIAL As Ordered ONE (06:44)
[2020-09-22] MEDS: HumaLOG INSULIN (NovoLOG) PER UNIT SC SCH ×4 (07:30→21:00)
--- NOTE | 2020-09-22 07:31 | ROOR ---
Patient Name: Daryl Kaye Procedure Date: 09/22/2020 6:24 AM Date of : 1965 Age: 55 Room: Main OR Gender: Male Note Status: Finalized Procedure: Upper GI endoscopy Indications: Hematochezia, Active gastrointestinal bleeding Providers: Hal Tripp MD Referring MD: 2. Inpatient 2. Inpatient Requesting Provider: Medicines: General Anesthesia Complications: No immediate complications. Procedure: Pre-Anesthesia Assessment: - Prior to the procedure, a History and Physical was performed, and patient medications and allergies were reviewed. The patient is competent. The risks and benefits of the procedure and the sedation options and risks were discussed with the patient. All questions were answered and informed consent was obtained. Patient identification and proposed procedure were verified by the physician, the nurse and the anesthesiologist in the procedure room. Mental Status Examination: lethargic. Prophylactic Antibiotics: The patient does not require prophylactic antibiotics. Prior Anticoagulants: The patient has taken no previous anticoagulant or antiplatelet agents. ASA Grade Assessment: IV - A patient with severe systemic disease that is a constant threat to life. After reviewing the risks and benefits, the patient was deemed in satisfactory condition to undergo the procedure. The anesthesia plan was to use general anesthesia. Immediately prior to administration of medications, the patient was re-assessed for adequacy to receive sedatives. The heart rate, respiratory rate, oxygen saturations, blood pressure, adequacy of pulmonary ventilation, and response to care were monitored throughout the procedure. The physical status of the patient was re-assessed after the procedure. The Endoscope was introduced through the mouth, and advanced to the efferent jejunal loop. The upper GI endoscopy was accomplished without difficulty. The patient tolerated the procedure well. Findings: The examined esophagus was normal. 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 The gastrojejunal anastomosis was characterized by ulceration. This was traversed. The uxibu-cj-cyqjvnl limb was characterized by ulceration and visible sutures. One spurting cratered ulcer with a visible vessel was found distal to the gastrojejunal anastomosis. The lesion was 20 mm in largest dimension. Coagulation for hemostasis using heater probe was successful. Initially the ulcer was covered with adherent clot with some oozing. The clot was irrigated and suctioned clear revealing an arterial bleeder centrally in the ulcer. A second small darker spot was noted at the peripehery of the ulcer possibly representing a second vessel end without bleeding. Both areas were cauterized. There was no bleeding at the conclusion of the procedure. Impression: - Normal esophagus. 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 - No specimens collected. Recommendation: - Return patient to [facility] for [facility] care. Procedure Code(s): --- Professional --- 86176, Esophagogastroduodenoscopy, flexible, transoral; with control of bleeding, any method Diagnosis Code(s): --- Professional --- Z98.0, Intestinal bypass and anastomosis status K28.4, Chronic or unspecified gastrojejunal ulcer with hemorrhage K92.1, Melena (includes Hematochezia) K92.2, Gastrointestinal hemorrhage, unspecified CPT copyright 2019 [employer]. All rights reserved. The codes documented in this report are preliminary and upon human anatomy teacher review may be revised to meet current compliance requirements. Hal Tripp MD Hal Tripp MD 09/22/2020 7:31:34 AM Electronically signed by Hal Tripp MD Number of Addenda: 0 Note Initiated On: 09/22/2020 6:24 AM Estimated Blood Loss: Estimated blood loss was minimal.
[2020-09-22] MEDS ORDERED: ONDANSETRON 4MG/2ML VIAL IV PRN (08:30)
[2020-09-22] MEDS ORDERED: LR 1,000 ML IV SCH (08:30)
[2020-09-22] MEDS: TAMSULOSIN 0.4 MG CAP PO SCH ×2 (09:00→21:07)
[2020-09-22] MEDS: DULoxetine 30 MG CAP (CYMBALTA) PO SCH ×2 (09:00→21:07)
[2020-09-22] MEDS: FOLIC ACID 1 MG TAB PO SCH (09:00)
[2020-09-22] MEDS: DOCUSATE SODIUM 100MG CAPSULE PO SCH ×2 (09:00→21:00)
[2020-09-22] MEDS: MULTIVITAMINS/MINERALS THERAP 1 TAB PO SCH (09:00)
[2020-09-22] MEDS: CARVedilol 12.5 MG TAB PO SCH ×2 (09:00→21:07)
[2020-09-22] MEDS: lisinopriL 40 MG TAB PO SCH (09:00)
[2020-09-22] MEDS: GABAPENTIN 300 MG CAP PO SCH ×3 (09:00→21:08)
[2020-09-22] MEDS: NS 1,000 ML IV SCH ×3 (10:00→23:11)
[2020-09-22] MEDS: ISOSORBIDE DIN. (ISORDIL) 20 MG TAB PO SCH ×5 (10:16→23:12)
[2020-09-22] MEDS: PANTOPRAZOLE 40MG VIAL (C9113 PER 1) IV SCH ×2 (11:14→21:07)
[2020-09-22 11:23] LABS: EOS % 0.1 % (0.0-3.0); HEMATOCRIT 23.8 % (42.0-52.0); LYMPH # 0.3 10^3/uL (1.5-5.0); LYMPH % 4.2 % (24.0-44.0); MEAN CORPUSCULAR HEMOGLOBIN 30.1 pg (27.0-33.0); MEAN CORPUSCULAR HGB CONC 33.6 g/dl (32.0-36.5); MEAN CORPUSCULAR VOLUME 89.5 fl (80.0-96.0); MONO # 0.5 10^3/uL (0.0-0.8); NEUTROPHILS # 6.9 10^3/uL (1.5-8.5); NEUTROPHILS % 89.2 % (36.0-66.0); RED BLOOD COUNT 2.66 10^6/uL (4.30-6.10); WHITE BLOOD COUNT 7.7 10^3/uL (4.0-10.0)
[2020-09-22 11:24] LABS: PLATELET COUNT, AUTOMATED 66 10^3/uL (150-450)
[2020-09-22 11:39] LABS: INR 1.33; PARTIAL THROMBOPLASTIN TIME 28.5 SECONDS (24.2-38.5); PROTHROMBIN TIME 16.8 SECONDS (12.5-14.3)
[2020-09-22 14:12] LABS: ALBUMIN 1.3 GM/DL (3.2-5.2); ALT/SGPT 23 U/L (12-78); BILIRUBIN,TOTAL 0.9 MG/DL (0.2-1.0); BLOOD UREA NITROGEN 13 MG/DL (7-18); CARBON DIOXIDE LEVEL 17 MEQ/L (21-32); CHLORIDE LEVEL 109 MEQ/L (98-107); CREATININE FOR GFR 1.06 MG/DL (0.70-1.30); GLOMERULAR FILTRATION RATE > 60.0 (>56); GLUCOSE, FASTING 261 MG/DL (70-100); LIPASE 32 U/L (73-393); MAGNESIUM LEVEL 1.1 MG/DL (1.8-2.4); POTASSIUM SERUM 3.8 MEQ/L (3.5-5.1); SODIUM LEVEL 135 MEQ/L (136-145)
--- NOTE | 2020-09-22 15:13 | REP ---
INDICATION: dyspnea. COMPARISON: 09/20/2020. TECHNIQUE: SINGLE PORTABLE AP VIEW OF THE CHEST WAS PERFORMED. FINDINGS: THERE IS NO ACUTE INFILTRATE OR PULMONARY EDEMA. LUNGS ARE CLEAR. HEART IS NOT SIGNIFICANTLY ENLARGED. MEDIASTINAL SILHOUETTE IS UNREMARKABLE. THE VISUALIZED OSSEOUS STRUCTURES ARE INTACT.Metallic plate and screws are seen in the lower cervical spine. IMPRESSION: NO ACUTE PULMONARY DISEASE. <Electronically signed by Jose Juan York > 09/22/20 [id number]
[2020-09-22 17:18] LABS: HEMATOCRIT 23.7 % (42.0-52.0); HEMOGLOBIN 8.4 g/dl (13.5-17.5); MEAN CORPUSCULAR HEMOGLOBIN 30.5 pg (27.0-33.0); MEAN CORPUSCULAR HGB CONC 35.4 g/dl (32.0-36.5); MEAN CORPUSCULAR VOLUME 86.2 fl (80.0-96.0); RED BLOOD COUNT 2.75 10^6/uL (4.30-6.10); WHITE BLOOD COUNT 8.8 10^3/uL (4.0-10.0)
[2020-09-22 17:52] LABS: PLATELET COUNT, AUTOMATED 78 10^3/uL (150-450)
[2020-09-22] MEDS: NALTREXONE 50 MG TAB PO SCH (21:07)
--- NOTE | 2020-09-22 21:07 | IPNPDOC ---
Subjective Date Seen The patient was seen on 09/22/20. Subjective Chief Complaint/HPI Mr. Kaye is a 55-year-old male who is here with abdominal pain and found to have acute pancreatitis and acute upper GI bleed. Overnight around 0, patient had hematochezia with bright red blood and clots. Patient has a history of GI bleed in the past from gastric ulcers. Patient was given a total of 6 packed red blood cells, and platelet. His DVT prophylaxis heparin was stopped. Since patient remained acutely anemic despite blood transfusions, Gen. surgery was consulted. On the morning of September 22, Dr. Tripp took patient to EGD. He found a bleeding ulcer that he cauterized. Patient was returned to the floor. When I saw the patient this morning, he was still very sleepy. Reported some dyspnea. He did have 6 transfusions and was on IV fluids for acute pancreatitis. Checked chest x-ray which was negative for pleural effusion. Objective Physical Examination General Exam: Positive: Other (lethargic) Eye Exam: Negative: Sclera icteric Chest Exam: Positive: Clear to auscultation; Negative: Wheezing Heart Exam: Positive: Rate Normal, Regular Rhythm Abdomen Exam: Positive: Normal bowel sounds, Soft Extremity Exam: Positive: Edema (bilateral pitting) Skin Exam: Positive: Nl turgor and temperature Psych Exam: Positive: Other (sleepy) Assessment /Plan Assessment Mr. Kaye is a 55-year-old male who is here with abdominal pain and found to have acute pancreatitis and acute upper GI bleed. Although he did not have a significant elevation in lipase. He has imaging suggestive of acute pancreatitis and abdominal tenderness. He was given IVF. On the evening of September 21, he is acutely anemic with a hemoglobin of 6.1. After multiple transfusions, he remained anemic at 6.3. Gen. surgery was consulted and his taken to the OR on the morning of September 22. They found a bleeding ulcer which was cauterized. Plan/VTE VTE Prophylaxis Ordered?: Yes Plan 1. Acute on chronic pancreatitis Meets 2/3 criteria. Imaging suggestive of acute pancreatitis and abdominal tenderness NPO and IV fluids Advance diet as tolerated 2. Acute upper GI bleed Hemoglobin dropped to 6.1. Did not appropriately responded to blood transfusion To surgery took to the OR on September 22. Cauterized ulcer IV Protonix and NPO. On Carafate DVT prophylaxis Heparin was held We'll need to discuss with general surgery when we restart a diet Monitor H&H every 6 3. Hypertension Controlled Continue amlodipine, Imdur, Coreg, lisinopril, and tamsulosin 4. Diabetes mellitus Continue insulin sliding scale 5. Chronic pain Continue gabapentin 6. DVT prophylaxis SCDs and teds Disposition: We'll need to touch base with general surgery tomorrow about when we can restart a diet. We'll have physical therapy reevaluate for home safety. VS, I&O, 24H, Fishbone Vital Signs/I&O Vital Signs Date Time Temp Pulse Resp B/P (MAP) Pulse Ox O2 Delivery O2 Flow Rate FiO2 09/22/20 20:00 97.3 87 18 143/72 (95) 98 Room Air 09/22/20 16:00 3.0 I&O- Last 24 Hours up to 6 AM 09/22/20 06:00 Intake Total 4800 ml Output Total 2200 ml Balance 2600 ml Laboratory Data 24H LABS Laboratory Tests 2 09/21/20 21:51: Anion Gap 8, Glomerular Filtration Rate > 60.0, Calcium Level 6.4L, Total Bilirubin 0.5, Aspartate Amino Transf (AST/SGOT) 23, Alanine Aminotransferase (ALT/SGPT) 29, Alkaline Phosphatase 293H, Total Protein 3.5#L, Albumin 1.3#L, Albumin/Globulin Ratio 0.6 09/21/20 21:54: Nucleated Red Blood Cells % (auto) 0.0 09/21/20 22:03: Bedside Glucose (Misc Panel) 258H 09/22/20 03:01: Nucleated Red Blood Cells % (auto) 0.0, Immature Platelet Fraction 3.6 09/22/20 11:16: Immature Granulocyte % (Auto) 0.5, Neutrophils (%) (Auto) 89.2H, Lymphocytes (%) (Auto) 4.2L, Monocytes (%) (Auto) 6.0H, Eosinophils (%) (Auto) 0.1, Basophils (%) (Auto) 0.0, Neutrophils # (Auto) 6.9, Lymphocytes # (Auto) 0.3L, Monocytes # (Auto) 0.5, Eosinophils # (Auto) 0.0, Basophils # (Auto) 0.0, Nucleated Red Blood Cells % (auto) 0.0, Prothrombin Time 16.8H, Prothromb Time International Ratio 1.33, Activated Partial Thromboplast Time 28.5, Anion Gap 9, Glomerular Filtration Rate > 60.0, Calcium Level 6.0L, Magnesium Level 1.1L, Total B ilirubin 0.9#, Aspartate Amino Transf (AST/SGOT) 20, Alanine Aminotransferase (ALT/SGPT) 23, Alkaline Phosphatase 166H, Total Protein 3.0L, Albumin 1.3L, Albumin/Globulin Ratio 0.8, Lipase 32L 09/22/20 12:11: Bedside Glucose (Misc Panel) 281H 09/22/20 17:09: Nucleated Red Blood Cells % (auto) 0.0 09/22/20 17:19: Bedside Glucose (Misc Panel) 225H 09/22/20 20:13: Bedside Glucose (Misc Panel) 207H CBC/BMP Laboratory Tests 09/21/20 21:51 09/21/20 21:54 09/22/20 03:01 09/22/20 11:16 09/22/20 17:09 Microbiology Microbiology 09/21/20 Blood Culture, Received Pending 09/21/20 Blood Culture, Received Pending 09/19/20 Group A Streptococcus Screen (MONET) - Final, Complete 09/19/20 Eye/Ear/Nose/Throat Culture - Final, Complete CRISTOFER SAM DO Sep 22, 2020 21:07
[2020-09-22] MEDS: rOPINIRole 1MG TAB PO SCH (21:08)
[2020-09-22 23:19] LABS: MEAN CORPUSCULAR HGB CONC 34.2 g/dl (32.0-36.5); MEAN CORPUSCULAR VOLUME 87.6 fl (80.0-96.0); RED BLOOD COUNT 2.17 10^6/uL (4.30-6.10); WHITE BLOOD COUNT 6.3 10^3/uL (4.0-10.0)
[2020-09-22 23:20] LABS: HEMOGLOBIN 6.5 g/dl (13.5-17.5); PLATELET COUNT, AUTOMATED 88 10^3/uL (150-450)
[2020-09-23] VITALS (14 sets, daily range): BP systolic 110–165; BP diastolic 65–90
[2020-09-23] MEDS: MAG SULF 1GM/100ML (MAG RUN) 1 GM in IV 1 EA IV SCH ×4 (00:05→03:44)
[2020-09-23 02:59] LABS: HEMATOCRIT 26.6 % (42.0-52.0); MEAN CORPUSCULAR HEMOGLOBIN 30.1 pg (27.0-33.0); MEAN CORPUSCULAR HGB CONC 33.5 g/dl (32.0-36.5); MEAN CORPUSCULAR VOLUME 89.9 fl (80.0-96.0); RED BLOOD COUNT 2.96 10^6/uL (4.30-6.10); WHITE BLOOD COUNT 7.1 10^3/uL (4.0-10.0)
[2020-09-23 03:01] LABS: HEMOGLOBIN 8.9 g/dl (13.5-17.5); PLATELET COUNT, AUTOMATED 88 10^3/uL (150-450)
[2020-09-23 05:50] LABS: BASO % 0.1 % (0.0-1.0); EOS % 0.4 % (0.0-3.0); HEMATOCRIT 26.8 % (42.0-52.0); LYMPH % 12.9 % (24.0-44.0); MEAN CORPUSCULAR HEMOGLOBIN 30.3 pg (27.0-33.0); MEAN CORPUSCULAR HGB CONC 33.6 g/dl (32.0-36.5); MEAN CORPUSCULAR VOLUME 90.2 fl (80.0-96.0); MONO # 0.8 10^3/uL (0.0-0.8); MONO % 10.9 % (0.0-5.0); NEUTROPHILS # 5.7 10^3/uL (1.5-8.5); NEUTROPHILS % 75.4 % (36.0-66.0); RED BLOOD COUNT 2.97 10^6/uL (4.30-6.10); WHITE BLOOD COUNT 7.5 10^3/uL (4.0-10.0)
[2020-09-23 05:55] LABS: PLATELET COUNT, AUTOMATED 94 10^3/uL (150-450)
[2020-09-23] MEDS: ISOSORBIDE DIN. (ISORDIL) 20 MG TAB PO SCH ×3 (06:00→18:00)
[2020-09-23 06:20] LABS: BLOOD UREA NITROGEN 16 MG/DL (7-18); CALCIUM LEVEL 6.5 MG/DL (8.5-10.1); CARBON DIOXIDE LEVEL 18 MEQ/L (21-32); CHLORIDE LEVEL 111 MEQ/L (98-107); CREATININE FOR GFR 1.21 MG/DL (0.70-1.30); GLOMERULAR FILTRATION RATE > 60.0 (>56); GLUCOSE, FASTING 183 MG/DL (70-100); POTASSIUM SERUM 3.3 MEQ/L (3.5-5.1); SODIUM LEVEL 138 MEQ/L (136-145)
[2020-09-23 06:21] LABS: ALBUMIN 1.4 GM/DL (3.2-5.2); ALT/SGPT 22 U/L (12-78); BILIRUBIN,TOTAL 0.5 MG/DL (0.2-1.0); LIPASE 44 U/L (73-393); MAGNESIUM LEVEL 2.1 MG/DL (1.8-2.4); TOTAL PROTEIN 3.3 GM/DL (6.4-8.2)
[2020-09-23] MEDS: SUCRALFATE 1 GM TAB PO SCH ×3 (06:43→17:54)
--- NOTE | 2020-09-23 07:57 | ECHO ---
DATE OF PROCEDURE: 09/21/2020 Age: 55 Gender: Male Height: 69 inches Weight: 180 pounds Body surface area: 1.98 m2 PATIENT LOCATION: Inpatient [address] [place] [address], Room 4234. REFERRING PHYSICIAN: Rosalba Anderson MD INDICATION: Chest pain. MEASUREMENTS: 2D Measurements: RV 4.0 cm LV 5.1 cm Septum 1.0 cm Posterior wall 1.0 cm Aortic Root 3.8 cm LA 3.9 cm LVEF 65% Doppler Measurements: AV 1.09 m/s LVOT 0.89 m/s LVOT diameter 2.2 cm MV-E 63, A 51, E/A ratio 1.2 Early mitral deceleration time 240 msec E prime medial 6.1, A prime medial 9, E prime lateral 9.6 Average E/E prime ratio 8/PCWP 11.9 mmHg PV 0.8 m/s Pulmonary artery acceleration time 116 msec RVSP 30 mmHg IVC 2.0 cm COMMENTS: Normal sinus rhythm without intraventricular conduction disturbance. M-mode and two-dimensional echocardiography was performed with pulse, continuous wave, color flow, and tissue Doppler studies. Normal left ventricular size, wall thickness, and wall motion. Left atrial size upper limits of normal with currently normal Doppler assessment of LV diastolic function and estimated mean left atrial pressure. Normal right heart chamber sizes and motion with borderline pulmonary hypertension. Normal IVC size and collapse against an elevated central venous pressure. Normal aortic root size. Slight aortic valvular sclerosis without stenosis and only trace insufficiency. Normal appearing mitral valve apparatus and function. Normal appearing tricuspid valve with very mild insufficiency. No apparent intracardiac mass or pericardial effusion. MTDD
[2020-09-23] MEDS: NS 1,000 ML IV SCH (08:00)
[2020-09-23] MEDS: HumaLOG INSULIN (NovoLOG) PER UNIT SC SCH ×4 (09:05→21:13)
[2020-09-23] MEDS: DULoxetine 30 MG CAP (CYMBALTA) PO SCH ×2 (09:27→21:14)
[2020-09-23] MEDS: MULTIVITAMINS/MINERALS THERAP 1 TAB PO SCH (09:27)
[2020-09-23] MEDS: FOLIC ACID 1 MG TAB PO SCH (09:27)
[2020-09-23] MEDS: PANTOPRAZOLE 40MG VIAL (C9113 PER 1) IV SCH ×2 (09:27→21:14)
[2020-09-23] MEDS: GABAPENTIN 300 MG CAP PO SCH ×3 (09:27→21:14)
[2020-09-23] MEDS: DOCUSATE SODIUM 100MG CAPSULE PO SCH ×2 (09:27→21:15)
[2020-09-23] MEDS: TAMSULOSIN 0.4 MG CAP PO SCH ×2 (09:28→21:15)
[2020-09-23] MEDS: lisinopriL 40 MG TAB PO SCH (09:29)
[2020-09-23] MEDS: CARVedilol 12.5 MG TAB PO SCH ×2 (09:29→21:15)
[2020-09-23] MEDS ORDERED: SLF 3 ML SYR IV PRN (14:15)
[2020-09-23 15:47] LABS: HEMATOCRIT 27.7 % (42.0-52.0); HEMOGLOBIN 9.6 g/dl (13.5-17.5); MEAN CORPUSCULAR HEMOGLOBIN 30.2 pg (27.0-33.0); MEAN CORPUSCULAR HGB CONC 34.7 g/dl (32.0-36.5); MEAN CORPUSCULAR VOLUME 87.1 fl (80.0-96.0); RED BLOOD COUNT 3.18 10^6/uL (4.30-6.10); WHITE BLOOD COUNT 8.5 10^3/uL (4.0-10.0)
[2020-09-23 15:49] LABS: PLATELET COUNT, AUTOMATED 86 10^3/uL (150-450)
--- NOTE | 2020-09-23 15:58 | IPNPDOC ---
Subjective Date Seen The patient was seen on 09/23/20. Subjective Chief Complaint/HPI Mr. Kaye is a 55-year-old male who is here with abdominal pain and found to have acute pancreatitis and acute upper GI bleed. At 23:00 he had an acute drop in hemoglobin from 8.4 to 6.5. He was transfused again with 2u pRBC. This morning, he denies any dizziness, headache, chest pain, or dyspnea. No BM, but had gas. Reached out to General Surgery if another scope is needed. No scope needed at this time. Unlikely having another bleed, as he did not have a BM. Advanced diet from liquids to solids. Objective Physical Examination General Exam: Positive: Alert, Cooperative, No Acute Distress, Other (lethargic) Eye Exam: Negative: Sclera icteric ENT Exam: Positive: Atraumatic Neck Exam: Positive: Supple Chest Exam: Positive: Clear to auscultation; Negative: Wheezing Heart Exam: Positive: Rate Normal, Regular Rhythm Abdomen Exam: Positive: Normal bowel sounds, Soft Extremity Exam: Positive: Edema (bilateral pitting) Skin Exam: Positive: Nl turgor and temperature Neuro Exam: Positive: Normal Speech Psych Exam: Positive: Mental status NL, Mood NL Assessment /Plan Assessment Mr. Kaye is a 55-year-old male who is here with abdominal pain and found to have acute pancreatitis and acute upper GI bleed. Although he did not have a significant elevation in lipase. He has imaging suggestive of acute pancreatitis and abdominal tenderness. He was given IVF. On the evening of September 21, he is acutely anemic with a hemoglobin of 6.1. After multiple transfusions, he remained anemic at 6.3. Gen. surgery was consulted and his taken to the OR on the morning of September 22. They found a bleeding ulcer which was cauterized. Then evening of September 22, he was anemic again at 6.5, but responded appropriately to 2u pRBC. No repeat scopes needed at this time since he had no BMs during this time. Advanced diet to solids. If he does well with physical therapy and his hemoglobin remains stable, may be able to discharge tomorrow Plan/VTE VTE Prophylaxis Ordered?: Yes Plan 1. Acute on chronic pancreatitis Meets 2/3 criteria. Imaging suggestive of acute pancreatitis and abdominal t enderness Resolved, diet advanced to solids 2. Acute upper GI bleed Hemoglobin dropped to 6.1. Did not appropriately responded to blood transfusion DVT prophylaxis Heparin was held To surgery took to the OR on September 22. Cauterized ulcer Evening of September 22, H&H dropped to 6.5, responded to 2u pRBC Monitor H&H every 6hrs 3. Hypertension Controlled Continue amlodipine, Imdur, Coreg, lisinopril, and tamsulosin 4. Diabetes mellitus Continue insulin sliding scale 5. Chronic pain Continue gabapentin 6. DVT prophylaxis SCDs and teds Disposition: Tolerating diet. If H&H remains stable and he does well with PT, possible discharge tomorrow VS, I&O, 24H, Fishbone Vital Signs/I&O Vital Signs Date Time Temp Pulse Resp B/P (MAP) Pulse Ox O2 Delivery O2 Flow Rate FiO2 09/23/20 12:00 98.3 66 18 132/68 (89) 98 Room Air 09/22/20 16:00 3.0 I&O- Last 24 Hours up to 6 AM 09/23/20 06:00 Intake Total 2600 ml Output Total 210 ml Balance 2390 ml Laboratory Data 24H LABS Laboratory Tests 2 09/22/20 17:09: Nucleated Red Blood Cells % (auto) 0.0 09/22/20 17:19: Bedside Glucose (Misc Panel) 225H 09/22/20 20:13: Bedside Glucose (Misc Panel) 207H 09/22/20 23:08: Nucleated Red Blood Cells % (auto) 0.0 09/23/20 02:48: Nucleated Red Blood Cells % (auto) 0.0 09/23/20 05:29: Nucleated Red Blood Cells % (auto) 0.0, Immature Granulocyte % (Auto) 0.3, Neutrophils (%) (Auto) 75.4H, Lymphocytes (%) (Auto) 12.9L, Monocytes (%) (Auto) 10.9H, Eosinophils (%) (Auto) 0.4, Basophils (%) (Auto) 0.1, Neutrophils # (Auto) 5.7, Lymphocytes # (Auto) 1.0L, Monocytes # (Auto) 0.8, Eosinophils # (Auto) 0.0, Basophils # (Auto) 0.0, Immature Platelet Fraction 2.6, Anion Gap 9, Glomerular Filtration Rate > 60.0, Calcium Level 6.5L, Magnesium Level 2.1, Total Bilirubin 0.5, Aspartate Amino Transf (AST/SGOT) 15, Alanine Aminotransferase (ALT/SGPT) 22, Alkaline Phosphatase 158H, Total Protein 3.3L, Albumin 1.4L, Albumin/Globulin Ratio 0.7, Lipase 44L 09/23/20 12:22: Bedside Glucose (Misc Panel) 209H 09/23/20 15:34: Nucleated Red Blood Cells % (auto) 0.5H CBC/BMP Laboratory Tests 09/22/20 17:09 09/22/20 23:08 09/23/20 02:48 09/23/20 05:29 09/23/20 15:34 Microbiology Microbiology 09/21/20 Blood Culture - Preliminary, Resulted No growth after 24 hours . All specim... 09/21/20 Blood Culture - Preliminary, Resulted No growth after 24 hours . All specim... 09/19/20 Group A Streptococcus Screen (MONET) - Final, Complete 09/19/20 Eye/Ear/Nose/Throat Culture - Final, Complete CRISTOFER SAM DO Sep 23, 2020 15:58
--- NOTE | 2020-09-23 18:11 | REPVR ---
PROCEDURE INFORMATION: Exam: US Retroperitoneal Limited, Kidneys Exam date and time: 09/23/2020 5:02 PM Age: 55 years old Clinical indication: Other: Bam; Prior surgery; Surgery date: Post-operative (0-2 days); Surgery type: Recent gi endoscopy 09/22/20 TECHNIQUE: Imaging protocol: Real-time ultrasound of the retroperitoneum with image documentation. Examination was focused on the kidneys. COMPARISON: Abdomen, limited US 01/23/2019 8:09 AM FINDINGS: Right kidney: The right kidney measures 10.9 x 5.7 x 4.8 cm. No hydronephrosis or shadowing nephrolithiasis involving the right kidney. Left kidney: The left kidney measures 12.1 x 5.2 x 5.6 cm. No shadowing nephrolithiasis involving the left kidney. Mild fullness of the left renal pelvis. Intraperitoneal space: Ascites is visualized within the pelvis. Bladder: Wall thickening of the bladder is identified. Abnormal peripheral hyperechogenicity is identified within the bladder, concerning for gas. Differential considerations for gas within the bladder includes iatrogenic gas, infection, and fistula formation. Ureteral jets are not visualized within the bladder. IMPRESSION: 1. Pelvic ascites. 2. Wall thickening of the bladder is identified. Abnormal peripheral hyperechogenicity is identified within the bladder, concerning for gas. Differential considerations for gas within the bladder includes iatrogenic gas, infection, and fistula formation. Clinical correlation and possible abdominal/pelvic CT recommended. 3. Mild fullness of the left renal pelvis. 4. Ureteral jets are not visualized within the bladder. Electronically signed by: Micheal Quinn On 09/23/2020 18:11:12 PM
[2020-09-23 21:06] LABS: HEMATOCRIT 30.6 % (42.0-52.0); HEMOGLOBIN 10.1 g/dl (13.5-17.5); MEAN CORPUSCULAR HEMOGLOBIN 30.1 pg (27.0-33.0); MEAN CORPUSCULAR VOLUME 91.1 fl (80.0-96.0); PLATELET COUNT, AUTOMATED 125 10^3/uL (150-450); RED BLOOD COUNT 3.36 10^6/uL (4.30-6.10); WHITE BLOOD COUNT 7.5 10^3/uL (4.0-10.0)
[2020-09-23] MEDS: SLF 3 ML SYR IV SCH (21:13)
[2020-09-23] MEDS: NALTREXONE 50 MG TAB PO SCH (21:14)
[2020-09-23] MEDS: rOPINIRole 1MG TAB PO SCH (21:14)
[2020-09-23] MEDS: NICOTINE 21MG/24HR 1 EA TRANSDERMAL TD PRN (21:18)
[2020-09-23] MEDS: GASTROGRAFIN SOLUTION 30ML PO SCH ×2 (22:27→22:54)
[2020-09-24] MEDS: SUCRALFATE 1 GM TAB PO SCH ×5 (00:25→23:36)
[2020-09-24] MEDS: ISOSORBIDE DIN. (ISORDIL) 20 MG TAB PO SCH ×5 (00:25→23:37)
[2020-09-24 02:00] VITALS: BP 153/81
[2020-09-24 02:55] LABS: HEMATOCRIT 23.1 % (42.0-52.0); MEAN CORPUSCULAR HEMOGLOBIN 30.8 pg (27.0-33.0); MEAN CORPUSCULAR HGB CONC 34.6 g/dl (32.0-36.5); MEAN CORPUSCULAR VOLUME 88.8 fl (80.0-96.0); PLATELET COUNT, AUTOMATED 109 10^3/uL (150-450); WHITE BLOOD COUNT 6.7 10^3/uL (4.0-10.0)
--- NOTE | 2020-09-24 04:44 | REPVR ---
PROCEDURE INFORMATION: Exam: CT Abdomen And Pelvis Without Contrast Exam date and time: 09/23/2020 6:37 PM Age: 55 years old Clinical indication: Nausea; Additional info: Gas in bladder, looking for colovesical fistula TECHNIQUE: Imaging protocol: Computed tomography of the abdomen and pelvis without contrast. Radiation optimization: All CT scans at this facility use at least one of these dose optimization techniques: automated exposure control; mA and/or kV adjustment per patient size (includes targeted exams where dose is matched to clinical indication); or iterative reconstruction. COMPARISON: CT ABD/PEL W/IV CONTRAST ONLY 09/18/2020 10:47 PM FINDINGS: Pleural space: There is partially imaged small to moderate bilateral pleural effusion, new since the prior exam. There is overlying atelectatic changes. Mediastinal space: There is a small sliding hiatal hernia. Liver: Normal. No mass. Gallbladder and bile ducts: The patient is status post cholecystectomy. There is no obvious biliary ductal dilatation. Pancreas: The pancreas is atrophic containing multiple calcifications. The pancreatic duct is dilated. The pancreatic head is heterogeneous. Spleen: Normal. No splenomegaly. Adrenal glands: Normal. No mass. Kidneys and ureters: Normal. No hydronephrosis. Stomach and bowel: Oral contrast is seen in in the small bowel loops transitioning into the right colon with no CT evidence of bowel obstruction. There is suggestion of bowel wall thickening. Appendix: No evidence of appendicitis. Intraperitoneal space: There is diffuse mesenteric edema. There is small amount of free pelvic fluid in addition to small amount of fluid in the inferior right paracolic gutter. Right and left lower abdominal quadrant/inguinal surgical clip seen. Vasculature: Unremarkable. No abdominal aortic aneurysm. Lymph nodes: Unremarkable. No enlarged lymph nodes. Urinary bladder: The urinary bladder it is significantly thickened containing complex material with air. Reproductive: Unremarkable as visualized. Bones/joints: IVC filter seen with its tip at L1-L2. The patient is status post open reduction and internal fixation right iliac bone. Mild right SI joint DJD seen. Soft tissues: There is extensive diffuse subcutaneous edema. IMPRESSION: 1. Extensive third-spacing suggested by interval development of small to moderate bilateral pleural effusion and diffuse mesenteric and subcutaneous edema with small abdominal and pelvic ascites. 2. Status post gastric bypass with no CT evidence of bowel obstruction. 3. Moderate diffuse colonic stool burden with no CT definite CT findings of colitis. 4. Apparent small bowel wall thickening could be due to 3rd spacing or enteritis. 5. Interval development of urinary bladder wall thickening containing complex material with air which could be secondary to cystitis and infection with air producing organism however enterovesicular or colovesicular fistula cannot be excluded based on this exam. Please note that no obvious bowel loops are seen inseparable from the urinary bladder and no opacification of the urinary bladder with oral contrast noted on this study. Please note that no contrast is seen in the colon. If clinically warranted further evaluation with either cystoscopy, retrograde cystogram or CT after barium enema may be obtained depending on the clinical history. 6. CT findings of chronic pancreatitis. Subtle pancreatic head abnormality cannot be excluded. If indicated MRI may be obtained for further evaluation. 7. Small sliding hiatal hernia. Electronically signed by: Kevin Ortiz On 09/24/2020 04:43:33 AM
[2020-09-24] MEDS: SLF 3 ML SYR IV SCH ×3 (05:27→20:55)
[2020-09-24 06:00] VITALS: BP 161/81
[2020-09-24 06:21] LABS: BASO % 0.3 % (0.0-1.0); EOS # 0.2 10^3/uL (0.0-0.5); EOS % 3.6 % (0.0-3.0); HEMATOCRIT 23.3 % (42.0-52.0); HEMOGLOBIN 7.6 g/dl (13.5-17.5); LYMPH % 15.3 % (24.0-44.0); MEAN CORPUSCULAR HEMOGLOBIN 30.4 pg (27.0-33.0); MEAN CORPUSCULAR HGB CONC 32.6 g/dl (32.0-36.5); MEAN CORPUSCULAR VOLUME 93.2 fl (80.0-96.0); MONO # 0.9 10^3/uL (0.0-0.8); MONO % 14.2 % (0.0-5.0); NEUTROPHILS # 4.2 10^3/uL (1.5-8.5); PLATELET COUNT, AUTOMATED 105 10^3/uL (150-450); WHITE BLOOD COUNT 6.3 10^3/uL (4.0-10.0)
[2020-09-24 06:58] LABS: ALBUMIN 1.3 GM/DL (3.2-5.2); ALT/SGPT 21 U/L (12-78); BILIRUBIN,TOTAL 0.4 MG/DL (0.2-1.0); BLOOD UREA NITROGEN 15 MG/DL (7-18); CALCIUM LEVEL 6.8 MG/DL (8.5-10.1); CARBON DIOXIDE LEVEL 19 MEQ/L (21-32); CHLORIDE LEVEL 106 MEQ/L (98-107); CREATININE FOR GFR 1.03 MG/DL (0.70-1.30); GLOMERULAR FILTRATION RATE > 60.0 (>56); GLUCOSE, FASTING 300 MG/DL (70-100); LIPASE 43 U/L (73-393); MAGNESIUM LEVEL 1.6 MG/DL (1.8-2.4); POTASSIUM SERUM 3.3 MEQ/L (3.5-5.1); SODIUM LEVEL 131 MEQ/L (136-145); TOTAL PROTEIN 3.6 GM/DL (6.4-8.2)
[2020-09-24] MEDS ORDERED: POTASSIUM CHLORIDE 10 MEQ SR TABLET PO ONE (07:30)
[2020-09-24] MEDS: GABAPENTIN 300 MG CAP PO SCH ×3 (07:58→20:55)
[2020-09-24] MEDS: FOLIC ACID 1 MG TAB PO SCH (07:58)
[2020-09-24] MEDS: DOCUSATE SODIUM 100MG CAPSULE PO SCH ×2 (07:58→20:55)
[2020-09-24] MEDS: lisinopriL 40 MG TAB PO SCH (07:59)
[2020-09-24] MEDS: TAMSULOSIN 0.4 MG CAP PO SCH ×2 (07:59→20:57)
[2020-09-24] MEDS: DULoxetine 30 MG CAP (CYMBALTA) PO SCH ×2 (07:59→20:55)
[2020-09-24] MEDS: PANTOPRAZOLE 40MG VIAL (C9113 PER 1) IV SCH ×2 (08:00→20:55)
[2020-09-24] MEDS: MULTIVITAMINS/MINERALS THERAP 1 TAB PO SCH (08:00)
[2020-09-24] MEDS: CARVedilol 12.5 MG TAB PO SCH ×2 (08:00→20:56)
[2020-09-24] MEDS: MAG SULF 1GM/100ML (MAG RUN) 1 GM in IV 1 EA IV SCH ×3 (08:01→12:13)
[2020-09-24] MEDS: HumaLOG INSULIN (NovoLOG) PER UNIT SC SCH ×4 (08:03→21:00)
--- NOTE | 2020-09-24 12:12 | IPNPDOC ---
Subjective Date Seen The patient was seen on 09/24/20. Subjective Chief Complaint/HPI Mr. Kaye is a 55-year-old male who is here with abdominal pain and found to have acute pancreatitis and acute upper GI bleed. Yesterday, he tolerated a solid diet. Renal US was performed for JOHAN, but imaging demonstrated air in bladder and bladder wall thickening. Ordered CT abd/pelvis, but was not able to determine from CT abd/pelvis. Otherwise, his hemoglobin declined to 7.6 this morning. When I saw him, he was not feeling well. He had dyspnea on exertion and fatigue. Abdominal pain returned. No BMs for two days. Denies hemoptysis or he matochezia this morning. Objective Physical Examination General Exam: Positive: Alert, Cooperative, Mild Distress Eye Exam: Negative: Sclera icteric ENT Exam: Positive: Atraumatic Neck Exam: Positive: Supple Chest Exam: Positive: Clear to auscultation; Negative: Wheezing Heart Exam: Positive: Rate Normal, Regular Rhythm Abdomen Exam: Positive: Normal bowel sounds, Soft, Tenderness Extremity Exam: Positive: Edema (bilateral pitting) Skin Exam: Positive: Nl turgor and temperature Neuro Exam: Positive: Normal Speech Psych Exam: Positive: Mental status NL, Mood NL Assessment /Plan Assessment Mr. Kaye is a 55-year-old male who is here with abdominal pain and found to have acute pancreatitis and acute upper GI bleed. Although he did not have a significant elevation in lipase. He has imaging suggestive of acute pancreatitis and abdominal tenderness. He was given IVF. On the evening of September 21, he is acutely anemic with a hemoglobin of 6.1. After multiple transfusions, he remained anemic at 6.3. Gen. surgery was consulted and his taken to the OR on the morning of September 22. They found a bleeding ulcer which was cauterized. Then evening of September 22, he was anemic again at 6.5, but responded appropriately to 2u pRBC. No repeat scopes needed at this time since he had no BMs during this time. On September 23, he tolerated a solid diet and was feeling well. On September 24, his morning hemoglobin dropped to 7.6. Abdominal pain returned. Continue trending CBC. He may need another transfusion. Otherwise renal function improved, but imaging demonstrates free air in bladder. Possible fistula with history of diverticulitis. Will order a retrograde cystogram to look for a colovesicular fistula. Plan/VTE VTE Prophylaxis Ordered?: Yes Plan 1. Acute on chronic pancreatitis Meets 2/3 criteria. Imaging suggestive of acute pancreatitis and abdominal tenderness Abdominal pain returned this morning after tolerating solid meals yesterday Repeat CT abdomen and pelvis demonstrated chronic pancreatitis, but there is air in the bladder. Unclear if new abdominal pain is from chronic pancreatitis versus process in bladder 2. Acute upper GI bleed Hemoglobin dropped to 6.1. Did not appropriately responded to blood transfusion DVT prophylaxis Heparin was held To surgery took to the OR on September 22. Cauterized ulcer Evening of September 22, H&H dropped to 6.5, responded to 2u pRBC Morning of September 23, H&H dropped to 7.6 Continue trending CBCs 3. Hypertension Controlled Continue amlodipine, Imdur, Coreg, lisinopril, and tamsulosin 4. Diabetes mellitus Continue insulin sliding scale 5. Chronic pain Continue gabapentin 6. Free in bladder History of diverticulitis He is at risk for colovesicular fistula Retrograde cystogram to look for fistula Ordered UA with reflex to culture 7. DVT prophylaxis SCDs and teds Disposition: Continues to have anemia. Unclear source. Continue trending CBCs. Otherwise working up possible colovesicular fistula VS, I&O, 24H, Fishbone Vital Signs/I&O Vital Signs Date Time Temp Pulse Resp B/P (MAP) Pulse Ox O2 Delivery O2 Flow Rate FiO2 09/24/20 08:00 71 161/81 09/24/20 06:00 98.2 18 95 Room Air 09/22/20 16:00 3.0 I&O- Last 24 Hours up to 6 AM 09/24/20 06:00 Intake Total 2000 ml Output Total 400 ml Balance 1600 ml Laboratory Data 24H LABS Laboratory Tests 2 09/23/20 12:22: Bedside Glucose (Misc Panel) 209H 09/23/20 15:34: Nucleated Red Blood Cells % (auto) 0.5H 09/23/20 17:49: Bedside Glucose (Misc Panel) 279H 09/23/20 20:47: Bedside Glucose (Misc Panel) 277H 09/23/20 20:54: Nucleated Red Blood Cells % (auto) 0.0, Differential Slide Review Report, Peripheral Blood Smear Path Consult PERIPHERAL SMEAR 09/24/20 02:49: Nucleated Red Blood Cells % (auto) 0.0 09/24/20 06:05: Nucleated Red Blood Cells % (auto) 0.0, Immature Granulocyte % (Auto) 0.6, Neutrophils (%) (Auto) 66.0, Lymphocytes (%) (Auto) 15.3L, Monocytes (%) (Auto) 14.2H, Eosinophils (%) (Auto) 3.6H, Basophils (%) (Auto) 0.3, Neutrophils # (Auto) 4.2, Lymphocytes # (Auto) 1.0L, Monocytes # (Auto) 0.9H, Eosinophils # (Auto) 0.2, Basophils # (Auto) 0.0, Anion Gap 6L, Glomerular Filtration Rate > 6 0.0, Calcium Level 6.8L, Magnesium Level 1.6L, Total Bilirubin 0.4, Aspartate Amino Transf (AST/SGOT) 12, Alanine Aminotransferase (ALT/SGPT) 21, Alkaline Phosphatase 134H, Total Protein 3.6L, Albumin 1.3L, Albumin/Globulin Ratio 0.6, Lipase 43L 09/24/20 11:41: Bedside Glucose (Misc Panel) 186H CBC/BMP Laboratory Tests 09/23/20 15:34 09/23/20 20:54 09/24/20 02:49 09/24/20 06:05 Microbiology Microbiology 09/21/20 Blood Culture - Preliminary, Resulted No Growth after 48 hours. All Specime... 09/21/20 Blood Culture - Preliminary, Resulted No Growth after 48 hours. All Specime... 09/19/20 Group A Streptococcus Screen (MONET) - Final, Complete 09/19/20 Eye/Ear/Nose/Throat Culture - Final, Complete CRISTOFER SAM DO Sep 24, 2020 12:12
[2020-09-24] MEDS: MIRALAX *UNIT DOSE* 17GM PACKET PO SCH (12:15)
[2020-09-24 12:55] LABS: HEMATOCRIT 23.7 % (42.0-52.0); HEMOGLOBIN 8.1 g/dl (13.5-17.5); MEAN CORPUSCULAR HEMOGLOBIN 30.1 pg (27.0-33.0); MEAN CORPUSCULAR HGB CONC 34.2 g/dl (32.0-36.5); MEAN CORPUSCULAR VOLUME 88.1 fl (80.0-96.0); PLATELET COUNT, AUTOMATED 119 10^3/uL (150-450); RED BLOOD COUNT 2.69 10^6/uL (4.30-6.10); WHITE BLOOD COUNT 5.9 10^3/uL (4.0-10.0)
[2020-09-24] MEDS: FUROSEMIDE 40MG/4ML VIAL (J1940) IV SCH ×2 (13:05→17:31)
[2020-09-24 14:00] VITALS: BP 117/72
[2020-09-24] MEDS: MOM 30ML SUSPENSION UDC PO PRN (17:44)
[2020-09-24 19:02] LABS: HEMATOCRIT 28.3 % (42.0-52.0); HEMOGLOBIN 9.8 g/dl (13.5-17.5); MEAN CORPUSCULAR HEMOGLOBIN 30.8 pg (27.0-33.0); MEAN CORPUSCULAR HGB CONC 34.6 g/dl (32.0-36.5); PLATELET COUNT, AUTOMATED 151 10^3/uL (150-450); RED BLOOD COUNT 3.18 10^6/uL (4.30-6.10); WHITE BLOOD COUNT 6.6 10^3/uL (4.0-10.0)
[2020-09-24] MEDS: NALTREXONE 50 MG TAB PO SCH (20:55)
[2020-09-24] MEDS: rOPINIRole 1MG TAB PO SCH (20:56)
[2020-09-24] MEDS: NICOTINE 21MG/24HR 1 EA TRANSDERMAL TD PRN (21:08)
[2020-09-24 22:00] VITALS: BP 156/86
[2020-09-25 00:11] LABS: HEMATOCRIT 22.5 % (42.0-52.0); MEAN CORPUSCULAR HEMOGLOBIN 31.5 pg (27.0-33.0); MEAN CORPUSCULAR HGB CONC 35.6 g/dl (32.0-36.5); MEAN CORPUSCULAR VOLUME 88.6 fl (80.0-96.0); PLATELET COUNT, AUTOMATED 130 10^3/uL (150-450); RED BLOOD COUNT 2.54 10^6/uL (4.30-6.10); WHITE BLOOD COUNT 5.2 10^3/uL (4.0-10.0)
[2020-09-25 02:00] VITALS: BP 127/68
[2020-09-25] MEDS: SUCRALFATE 1 GM TAB PO SCH ×4 (05:41→23:35)
[2020-09-25] MEDS: SLF 3 ML SYR IV SCH ×3 (05:41→22:03)
[2020-09-25] MEDS: ISOSORBIDE DIN. (ISORDIL) 20 MG TAB PO SCH ×4 (05:41→23:39)
[2020-09-25 06:00] VITALS: BP 145/81
[2020-09-25 06:24] LABS: BASO % 0.5 % (0.0-1.0); EOS # 0.2 10^3/uL (0.0-0.5); EOS % 4.1 % (0.0-3.0); HEMATOCRIT 23.5 % (42.0-52.0); HEMOGLOBIN 8.2 g/dl (13.5-17.5); LYMPH % 22.8 % (24.0-44.0); MEAN CORPUSCULAR HEMOGLOBIN 30.9 pg (27.0-33.0); MEAN CORPUSCULAR HGB CONC 34.9 g/dl (32.0-36.5); MEAN CORPUSCULAR VOLUME 88.7 fl (80.0-96.0); MONO # 0.7 10^3/uL (0.0-0.8); MONO % 15.3 % (0.0-5.0); NEUTROPHILS # 2.5 10^3/uL (1.5-8.5); NEUTROPHILS % 56.8 % (36.0-66.0); PLATELET COUNT, AUTOMATED 142 10^3/uL (150-450); RED BLOOD COUNT 2.65 10^6/uL (4.30-6.10); WHITE BLOOD COUNT 4.4 10^3/uL (4.0-10.0)
[2020-09-25 06:58] LABS: ALBUMIN 1.4 GM/DL (3.2-5.2); ALT/SGPT 19 U/L (12-78); BILIRUBIN,TOTAL 0.5 MG/DL (0.2-1.0); BLOOD UREA NITROGEN 10 MG/DL (7-18); CALCIUM LEVEL 7.1 MG/DL (8.5-10.1); CARBON DIOXIDE LEVEL 24 MEQ/L (21-32); CHLORIDE LEVEL 104 MEQ/L (98-107); CREATININE FOR GFR 0.88 MG/DL (0.70-1.30); GLOMERULAR FILTRATION RATE > 60.0 (>56); GLUCOSE, FASTING 266 MG/DL (70-100); LIPASE 27 U/L (73-393); MAGNESIUM LEVEL 1.6 MG/DL (1.8-2.4); POTASSIUM SERUM 3.3 MEQ/L (3.5-5.1); SODIUM LEVEL 134 MEQ/L (136-145); TOTAL PROTEIN 3.6 GM/DL (6.4-8.2)
[2020-09-25] MEDS: SENNA 8.6 MG TAB (SENOKOT) PO SCH (08:25)
[2020-09-25] MEDS: PANTOPRAZOLE 40MG VIAL (C9113 PER 1) IV SCH ×2 (08:26→22:01)
[2020-09-25] MEDS: GABAPENTIN 300 MG CAP PO SCH ×3 (08:26→22:01)
[2020-09-25] MEDS: DULoxetine 30 MG CAP (CYMBALTA) PO SCH ×2 (08:26→22:02)
[2020-09-25] MEDS: DOCUSATE SODIUM 100MG CAPSULE PO SCH ×2 (08:26→22:02)
[2020-09-25] MEDS: FOLIC ACID 1 MG TAB PO SCH (08:26)
[2020-09-25] MEDS: CARVedilol 12.5 MG TAB PO SCH ×2 (08:27→22:02)
[2020-09-25] MEDS: TAMSULOSIN 0.4 MG CAP PO SCH ×2 (08:28→22:02)
[2020-09-25] MEDS: lisinopriL 40 MG TAB PO SCH (08:28)
[2020-09-25] MEDS: MULTIVITAMINS/MINERALS THERAP 1 TAB PO SCH (08:28)
[2020-09-25] MEDS: MIRALAX *UNIT DOSE* 17GM PACKET PO SCH (08:28)
[2020-09-25] MEDS: HumaLOG INSULIN (NovoLOG) PER UNIT SC SCH ×4 (08:29→21:00)
[2020-09-25] MEDS: POTASSIUM CHLORIDE 10 MEQ SR TABLET PO SCH (09:00)
[2020-09-25] MEDS: FUROSEMIDE 40MG/4ML VIAL (J1940) IV SCH ×2 (09:00→17:41)
[2020-09-25 12:26] LABS: HEMATOCRIT 26.6 % (42.0-52.0); HEMOGLOBIN 9.1 g/dl (13.5-17.5); MEAN CORPUSCULAR HGB CONC 34.2 g/dl (32.0-36.5); MEAN CORPUSCULAR VOLUME 90.5 fl (80.0-96.0); PLATELET COUNT, AUTOMATED 157 10^3/uL (150-450); RED BLOOD COUNT 2.94 10^6/uL (4.30-6.10); WHITE BLOOD COUNT 5.4 10^3/uL (4.0-10.0)
--- NOTE | 2020-09-25 12:47 | IPNPDOC ---
Subjective Date Seen The patient was seen on 09/25/20. Subjective Chief Complaint/HPI Mr. Kaye is a 55-year-old male who is here with abdominal pain and found to have acute pancreatitis and acute upper GI bleed. He was seen this morning eating breakfast. Denies nausea or abdominal pain. Denies dyspnea or lightheadedness. Still no bowel movement. Otherwise he tells me that he has been having some dysuria since he had a cath. Objective Physical Examination General Exam: Positive: Alert, Cooperative, Mild Distress Eye Exam: Negative: Sclera icteric ENT Exam: Positive: Atraumatic Neck Exam: Positive: Supple Chest Exam: Positive: Clear to auscultation; Negative: Wheezing Heart Exam: Positive: Rate Normal, Regular Rhythm Abdomen Exam: Positive: Normal bowel sounds, Soft, Tenderness Extremity Exam: Positive: Edema (bilateral pitting) Skin Exam: Positive: Nl turgor and temperature Neuro Exam: Positive: Normal Speech Psych Exam: Positive: Mental status NL, Mood NL Assessment /Plan Assessment Mr. Kaye is a 55-year-old male who is here with abdominal pain and found to have acute pancreatitis and acute upper GI bleed. Although he did not have a significant elevation in lipase. He has imaging suggestive of acute pancreatitis and abdominal tenderness. He was given IVF. On the evening of September 21, he is acutely anemic with a hemoglobin of 6.1. After multiple transfusions, he remained anemic at 6.3. Gen. surgery was consulted and his taken to the OR on the morning of September 22. They found a bleeding ulcer which was cauterized. Then evening of September 22, he was anemic again at 6.5, but responded appropriately to 2u pRBC. No repeat scopes needed at this time since he had no BMs during this time. On September 23, he tolerated a solid diet and was feeling well. On September 24, his morning hemoglobin dropped to 7.6. Abdominal pain returned. Continue trending CBC. He may need another transfusion. Otherwise renal function improved, but imaging demonstrates free air in bladder. Possible fistula with history of diverticulitis. Will order a cystogram to look for a colovesicular fistula. Will also order a UA since he has been having dysuria. Plan/VTE VTE Prophylaxis Ordered?: Yes Plan 1. Acute on chronic pancreatitis Meets 2/3 criteria. Imaging suggestive of acute pancreatitis and abdominal tenderness Abdominal pain returned this morning after tolerating solid meals yesterday Repeat CT abdomen and pelvis demonstrated chronic pancreatitis, but there is air in the bladder. Unclear if new abdominal pain is from chronic pancreatitis versus process in bladder 2. Acute upper GI bleed Hemoglobin dropped to 6.1. Did not appropriately responded to blood transfusion DVT prophylaxis Heparin was held To surgery took to the OR on September 22. Cauterized ulcer Evening of September 22, H&H dropped to 6.5, responded to 2u pRBC Morning of September 23, H&H dropped to 7.6 Continue trending CBCs 3. Hypertension Controlled Continue amlodipine, Imdur, Coreg, lisinopril, and tamsulosin 4. Diabetes mellitus Continue insulin sliding scale 5. Chronic pain Continue gabapentin 6. Free in bladder History of diverticulitis He is at risk for colovesicular fistula Retrograde cystogram to look for fistula Ordered UA with reflex to culture 7. DVT prophylaxis SCDs and teds Disposition: Able to tolerate a diet. H&H more stable today. Will continue trending for 1 more day. Otherwise, working up possible colovesicular fistula. If H&H remains stable and no fistula, he may be able to go home tomorrow VS, I&O, 24H, [facility] Vital Signs/I&O Vital Signs Date Time Temp Pulse Resp B/P (MAP) Pulse Ox O2 Delivery O2 Flow Rate FiO2 09/25/20 08:27 75 145/81 09/25/20 06:00 98.7 18 96 Room Air 09/22/20 16:00 3.0 I&O- Last 24 Hours up to 6 AM 09/25/20 06:00 Intake Total 2580 ml Output Total 600 ml Balance 1980 ml Laboratory Data 24H LABS Laboratory Tests 2 09/24/20 16:44: Bedside Glucose (Misc Panel) 166H 09/24/20 18:36: Nucleated Red Blood Cells % (auto) 0.0 09/24/20 20:09: Bedside Glucose (Misc Panel) 189H 09/25/20 00:03: Nucleated Red Blood Cells % (auto) 0.0 09/25/20 05:37: Immature Granulocyte % (Auto) 0.5, Neutrophils (%) (Auto) 56.8, Lymphocytes (%) (Auto) 22.8L, Monocytes (%) (Auto) 15.3H, Eosinophils (%) (Auto) 4.1H, Basophils (%) (Auto) 0.5, Neutrophils # (Auto) 2.5, Lymphocytes # (Auto) 1.0L, Monocytes # (Auto) 0.7, Eosinophils # (Auto) 0.2, Basophils # (Auto) 0.0, Nucleated Red Blood Cells % (auto) 0.0, Anion Gap 6L, Glomerular Filtration Rate > 60.0, Calcium Level 7.1L, Magnesium Level 1.6L, Total Bilirubin 0.5, Aspartate Amino Transf (AST/SGOT) 10, Alanine Aminotransferase (ALT/SGPT) 19, Alkaline Phosphatase 153H, Total Protein 3.6L, Albumin 1.4L, Albumin/Globulin Ratio 0.6, Lipase 27L 09/25/20 11:58: Bedside Glucose (Misc Panel) 160H 09/25/20 12:01: 09/25/20 12:10: Nucleated Red Blood Cells % (auto) 0.0 CBC/BMP Laboratory Tests 09/24/20 18:36 09/25/20 00:03 09/25/20 05:37 09/25/20 12:10 Microbiology Microbiology 09/21/20 Blood Culture - Preliminary, Resulted No Growth after 72 hours. All specime... 09/21/20 Blood Culture - Preliminary, Resulted No Growth after 72 hours. All specime... 09/19/20 Group A Streptococcus Screen (MONET) - Final, Complete 09/19/20 Eye/Ear/Nose/Throat Culture - Final, Complete CRISTOFER SAM DO Sep 25, 2020 12:47
[2020-09-25] MEDS ORDERED: CYSTO-CONRAY II 17.2% 250ML VIAL (Q9958) As Ordered ONE (12:53)
--- NOTE | 2020-09-25 13:01 | IPN ---
PROGRESS NOTE DATE: 09/25/2020 HISTORY: Patient underwent an upper endoscopy on September 22 with findings of an arterial bleeder within a large ulcer at his gastrojejunal anastomosis. The artery was cauterized with a heater probe, and he has had no evidence of any further bleeding. Vital signs show that the patient has been afebrile over the past 24 hours. His pulse is in the 70s, and his blood pressure is good. Intake and output show that yesterday he had 2700 in with 600 of urine output recorded. He has had no bowel movements noted in the last 3 days. PHYSICAL EXAMINATION: Patient is sitting up in a chair at the bedside with a cup of coffee in his hand. He looks quite comfortable. Heart exam shows a regular rhythm. The abdomen is soft and without significant tenderness. He does have some peripheral edema in both his upper and lower extremities. LABORATORY STUDIES: Today show a white count of 4, hemoglobin 8, hematocrit 24, and a platelet count of 142,000. His differential count shows 57% neutrophils, 23% lymphocytes, and 15% monocytes. Chemistry profile shows a sodium of 134, potassium 3.3, chloride 104, CO2 of 24, BUN of 10, creatinine 0.88, and a glucose of 266. Total protein is all of 3.6 with an albumin of 1.4. IMPRESSION: Patient shows no evidence of any ongoing bleeding, as he has had no bowel movements in the last 3 days. He apparently is now eating and tolerating liquids well. His hematocrit is stable from yesterday at 23-24. RECOMMENDATIONS: At this point, he appears to be doing well. He certainly needs to remain on a proton pump inhibitor. Carafate would be reasonable for the first few weeks to a month. I counseled him that he should try to avoid alcohol, as this will delay healing of his ulcer. He can be discharged when the hospitalist feels that his medical condition will allow. AMAYA
[2020-09-25 14:00] VITALS: BP 140/81
--- NOTE | 2020-09-25 17:49 | REP ---
INDICATION: Looking for colovesical fistula. COMPARISON: CT abdomen and pelvis dated 09/24/2020. TECHNIQUE: This procedure was performed by Justina Olmedo [facility], under the direct supervision of Dr. York. Images were reviewed with Dr. York prior to dictation. The bladder was catheterized using aseptic precautions, and standard technique. Two hundred fifty ml of Cysto-Conray II was instilled into the bladder in a retrograde flow. Multiple fluoroscopic radiographs were obtained. FINDINGS: The bladder is normal in position and contour. There is no evidence of restricted diffusion or urethral reflux. There is no extravasation of contrast. No fistula is identified. IMPRESSION: Unremarkable cystogram 0.1 minutes of fluoroscopy time was utilized for this procedure. Some fluoroscopic images are performed with last image hold technology. These images require no additional radiation. <Electronically signed by Justina Olmedo > 09/25/20 1515 <Electronically signed by Jose Juan York > 09/25/20 [id number]
[2020-09-25 18:19] LABS: HEMATOCRIT 25.3 % (42.0-52.0); HEMOGLOBIN 8.7 g/dl (13.5-17.5); MEAN CORPUSCULAR HEMOGLOBIN 31.4 pg (27.0-33.0); MEAN CORPUSCULAR HGB CONC 34.4 g/dl (32.0-36.5); MEAN CORPUSCULAR VOLUME 91.3 fl (80.0-96.0); PLATELET COUNT, AUTOMATED 171 10^3/uL (150-450); RED BLOOD COUNT 2.77 10^6/uL (4.30-6.10); WHITE BLOOD COUNT 5.2 10^3/uL (4.0-10.0)
[2020-09-25 20:05] VITALS: BP 164/84
[2020-09-25] MEDS: NALTREXONE 50 MG TAB PO SCH (22:01)
[2020-09-25] MEDS: rOPINIRole 1MG TAB PO SCH (22:01)
[2020-09-25] MEDS: MOM 30ML SUSPENSION UDC PO PRN (22:46)
[2020-09-25 23:48] LABS: HEMATOCRIT 23.3 % (42.0-52.0); MEAN CORPUSCULAR HEMOGLOBIN 30.3 pg (27.0-33.0); MEAN CORPUSCULAR HGB CONC 34.3 g/dl (32.0-36.5); MEAN CORPUSCULAR VOLUME 88.3 fl (80.0-96.0); PLATELET COUNT, AUTOMATED 154 10^3/uL (150-450); RED BLOOD COUNT 2.64 10^6/uL (4.30-6.10); WHITE BLOOD COUNT 4.7 10^3/uL (4.0-10.0)
[2020-09-26 01:41] VITALS: BP 122/60
[2020-09-26] MEDS: SUCRALFATE 1 GM TAB PO SCH ×4 (05:43→23:59)
[2020-09-26] MEDS: ISOSORBIDE DIN. (ISORDIL) 20 MG TAB PO SCH ×3 (05:46→17:18)
[2020-09-26] MEDS: SLF 3 ML SYR IV SCH ×3 (05:50→20:50)
[2020-09-26 06:24] VITALS: BP 151/80
[2020-09-26] MEDS: MIRALAX *UNIT DOSE* 17GM PACKET PO SCH (09:00)
[2020-09-26 09:04] LABS: BASO % 0.5 % (0.0-1.0); EOS # 0.1 10^3/uL (0.0-0.5); EOS % 2.7 % (0.0-3.0); HEMATOCRIT 21.2 % (42.0-52.0); HEMOGLOBIN 7.4 g/dl (13.5-17.5); LYMPH % 27.8 % (24.0-44.0); MEAN CORPUSCULAR HGB CONC 34.9 g/dl (32.0-36.5); MEAN CORPUSCULAR VOLUME 88.7 fl (80.0-96.0); MONO # 0.7 10^3/uL (0.0-0.8); MONO % 19.7 % (0.0-5.0); NEUTROPHILS # 1.8 10^3/uL (1.5-8.5); PLATELET COUNT, AUTOMATED 152 10^3/uL (150-450); RED BLOOD COUNT 2.39 10^6/uL (4.30-6.10); WHITE BLOOD COUNT 3.7 10^3/uL (4.0-10.0)
[2020-09-26] MEDS: FUROSEMIDE 40MG/4ML VIAL (J1940) IV SCH (09:14)
[2020-09-26] MEDS: GABAPENTIN 300 MG CAP PO SCH ×3 (09:15→20:49)
[2020-09-26] MEDS: HumaLOG INSULIN (NovoLOG) PER UNIT SC SCH ×4 (09:15→20:42)
[2020-09-26] MEDS: POTASSIUM CHLORIDE 10 MEQ SR TABLET PO SCH (09:15)
[2020-09-26] MEDS: lisinopriL 40 MG TAB PO SCH (09:15)
[2020-09-26] MEDS: MULTIVITAMINS/MINERALS THERAP 1 TAB PO SCH (09:16)
[2020-09-26] MEDS: DULoxetine 30 MG CAP (CYMBALTA) PO SCH ×2 (09:16→20:49)
[2020-09-26] MEDS: FOLIC ACID 1 MG TAB PO SCH (09:17)
[2020-09-26] MEDS: CARVedilol 12.5 MG TAB PO SCH ×2 (09:17→20:50)
[2020-09-26] MEDS: DOCUSATE SODIUM 100MG CAPSULE PO SCH ×2 (09:17→20:48)
[2020-09-26] MEDS: TAMSULOSIN 0.4 MG CAP PO SCH ×2 (09:18→20:48)
[2020-09-26] MEDS: PANTOPRAZOLE 40MG VIAL (C9113 PER 1) IV SCH (09:19)
[2020-09-26] MEDS: SENNA 8.6 MG TAB (SENOKOT) PO SCH (09:19)
[2020-09-26 09:40] LABS: ALBUMIN 1.4 GM/DL (3.2-5.2); ALT/SGPT 16 U/L (12-78); BILIRUBIN,TOTAL 0.3 MG/DL (0.2-1.0); BLOOD UREA NITROGEN 10 MG/DL (7-18); CALCIUM LEVEL 6.7 MG/DL (8.5-10.1); CARBON DIOXIDE LEVEL 24 MEQ/L (21-32); CHLORIDE LEVEL 105 MEQ/L (98-107); CREATININE FOR GFR 0.79 MG/DL (0.70-1.30); GLOMERULAR FILTRATION RATE > 60.0 (>56); GLUCOSE, FASTING 287 MG/DL (70-100); LIPASE 50 U/L (73-393); MAGNESIUM LEVEL 1.3 MG/DL (1.8-2.4); POTASSIUM SERUM 3.3 MEQ/L (3.5-5.1); SODIUM LEVEL 136 MEQ/L (136-145); TOTAL PROTEIN 3.6 GM/DL (6.4-8.2)
[2020-09-26] MEDS ORDERED: NS 1,000 ML IV SCH (10:35)
[2020-09-26] MEDS ORDERED: POTASSIUM CHLORIDE 10 MEQ SR TABLET PO ONE (11:00)
[2020-09-26] MEDS: MAG SULF 1GM/100ML (MAG RUN) 1 GM in IV 1 EA IV SCH ×4 (11:05→14:26)
[2020-09-26 12:15] LABS: HEMATOCRIT 24.6 % (42.0-52.0); HEMOGLOBIN 8.1 g/dl (13.5-17.5); MEAN CORPUSCULAR HEMOGLOBIN 30.6 pg (27.0-33.0); MEAN CORPUSCULAR HGB CONC 32.9 g/dl (32.0-36.5); MEAN CORPUSCULAR VOLUME 92.8 fl (80.0-96.0); PLATELET COUNT, AUTOMATED 169 10^3/uL (150-450); RED BLOOD COUNT 2.65 10^6/uL (4.30-6.10); WHITE BLOOD COUNT 4.2 10^3/uL (4.0-10.0)
[2020-09-26 14:35] VITALS: BP 124/67
--- NOTE | 2020-09-26 15:21 | IPNPDOC ---
Subjective Date Seen The patient was seen on 09/26/20. Subjective Chief Complaint/HPI Mr. Kaye is a 55-year-old male who is here with abdominal pain and found to have acute pancreatitis and acute upper GI bleed. Yesterday, he was able to have BM which he saw clots. This morning, he had another BM and it had stringy blood. This morning, hemoglobin was 7.4. Magnesium and potassium was also low. Will give another 2u pRBC Objective Physical Examination General Exam: Positive: Alert, Cooperative, Mild Distress Eye Exam: Negative: Sclera icteric ENT Exam: Positive: Atraumatic Neck Exam: Positive: Supple Chest Exam: Positive: Clear to auscultation; Negative: Wheezing Heart Exam: Positive: Rate Normal, Regular Rhythm Abdomen Exam: Positive: Normal bowel sounds, Soft, Tenderness Extremity Exam: Positive: Edema (bilateral pitting) Skin Exam: Positive: Nl turgor and temperature Neuro Exam: Positive: Normal Speech Psych Exam: Positive: Mental status NL, Mood NL Assessment /Plan Assessment Mr. Kaye is a 55-year-old male who is here with abdominal pain and found to have acute pancreatitis and acute upper GI bleed. Although he did not have a significant elevation in lipase. He has imaging suggestive of acute pancreatitis and abdominal tenderness. He was given IVF. On the evening of September 21, he is acutely anemic with a hemoglobin of 6.1. After multiple transfusions, he remained anemic at 6.3. Gen. surgery was consulted and his taken to the OR on the morning of September 22. They found a bleeding ulcer which was cauterized. Then evening of September 22, he was anemic again at 6.5, but responded appropriately to 2u pRBC. No repeat scopes needed at this time since he had no BMs during this time. On September 23, he tolerated a solid diet and was feeling well. On September 24, his morning hemoglobin dropped to 7.6. Abdominal pain returned. On Sep 26, hemoglobin dropped to 7.4. Will transfuse another 2 units pRBC Otherwise renal function improved, but imaging demonstrates free air in bladder, but cystogram was negative for fistula. The free air may have been from a cath. UA negative for nitrite, leuk esterase, or bacteria. Positive for blood Plan/VTE VTE Prophylaxis Ordered?: Yes Plan 1. Acute on chronic pancreatitis Meets 2/3 criteria. Imaging suggestive of acute pancreatitis and abdominal tenderness Abdominal pain returned this morning after tolerating solid meals yesterday Repeat CT abdomen and pelvis demonstrated chronic pancreatitis, but there is air in the bladder. Unclear if new abdominal pain is from chronic pancreatitis versus process in bladder 2. Acute upper GI bleed Hemoglobin dropped to 6.1. Did not appropriately responded to blood transfusion DVT prophylaxis Heparin was held To surgery took to the OR on September 22. Cauterized ulcer Evening of September 22, H&H dropped to 6.5, responded to 2u pRBC Morning of September 23, H&H dropped to 7.6 Continue trending CBCs 3. Hypertension Controlled Continue amlodipine, Imdur, Coreg, lisinopril, and tamsulosin 4. Diabetes mellitus Continue insulin sliding scale 5. Chronic pain Continue gabapentin 6. Free in bladder History of diverticulitis He is at risk for colovesicular fistula Retrograde cystogram negative for fistula -Most likely from catheterization 7. DVT prophylaxis SCDs and teds Disposition: Pending stabilization of H&H, Receiving another 2u of pRBC. VS, I&O, 24H, [facility] Vital Signs/I&O Vital Signs Date Time Temp Pulse Resp B/P (MAP) Pulse Ox O2 Delivery O2 Flow Rate FiO2 09/26/20 14:35 99.6 72 16 124/67 (86) 99 Room Air 09/22/20 16:00 3.0 I&O- Last 24 Hours up to 6 AM 09/26/20 06:00 Intake Total 1720 ml Output Total 0 ml Balance 1720 ml Laboratory Data 24H LABS Laboratory Tests 2 09/25/20 16:50: Bedside Glucose (Misc Panel) 188H 09/25/20 18:04: Nucleated Red Blood Cells % (auto) 0.0 09/25/20 20:09: Bedside Glucose (Misc Panel) 191H 09/25/20 23:44: Nucleated Red Blood Cells % (auto) 0.0 09/26/20 07:17: Bedside Glucose (Misc Panel) 283H 09/26/20 08:35: Immature Granulocyte % (Auto) 0.3, Neutrophils (%) (Auto) 49.0, Lymphocytes (%) (Auto) 27.8, Monocytes (%) (Auto) 19.7H, Eosinophils (%) (Auto) 2.7, Basophils (%) (Auto) 0.5, Neutrophils # (Auto) 1.8, Lymphocytes # (Auto) 1.0L, Monocytes # (Auto) 0.7, Eosinophils # (Auto) 0.1, Basophils # (Auto) 0.0, Nucleated Red Blood Cells % (auto) 0.0, Anion Gap 7L, Glomerular Filtration Rate > 60.0, Calcium Level 6.7L, Magnesium Level 1.3L, Total Bilirubin 0.3, Aspartate Amino Transf (AST/SGOT) 12, Alanine Aminotransferase (ALT/SGPT) 16, Alkaline Phosphatase 141H, Total Protein 3.6L, Albumin 1.4L, Albumin/Globulin Ratio 0.6, Lipase 50L 09/26/20 11:34: Bedside Glucose (Misc Panel) 151H 09/26/20 12:09: Nucleated Red Blood Cells % (auto) 0.0 CBC/BMP Laboratory Tests 09/25/20 18:04 09/25/20 23:44 09/26/20 08:35 09/26/20 12:09 Microbiology Microbiology 09/25/20 Urine Culture, Received Pending 09/21/20 Blood Culture - Preliminary, Resulted No Growth after 72 hours. All specime... 09/21/20 Blood Culture - Preliminary, Resulted No Growth after 72 hours. All specime... 09/19/20 Group A Streptococcus Screen (MONET) - Final, Complete 09/19/20 Eye/Ear/Nose/Throat Culture - Final, Complete CRISTOFER SAM DO Sep 26, 2020 15:17
[2020-09-26 15:50] VITALS: BP 136/71
[2020-09-26] MEDS: BACTRIM 160MG/800MG DS TAB PO SCH (17:16)
[2020-09-26] MEDS: FUROSEMIDE 40 MG TAB PO SCH (17:16)
[2020-09-26 18:11] LABS: HEMATOCRIT 27.9 % (42.0-52.0); HEMOGLOBIN 9.7 g/dl (13.5-17.5)
[2020-09-26] MEDS: rOPINIRole 1MG TAB PO SCH (20:48)
[2020-09-26] MEDS: NALTREXONE 50 MG TAB PO SCH (20:49)
[2020-09-26 22:00] VITALS: BP 156/91
[2020-09-27 05:33] VITALS: BP 132/77
[2020-09-27] MEDS: SLF 3 ML SYR IV SCH ×3 (05:45→22:00)
[2020-09-27] MEDS: ISOSORBIDE DIN. (ISORDIL) 20 MG TAB PO SCH ×4 (05:45→18:01)
[2020-09-27] MEDS: BACTRIM 160MG/800MG DS TAB PO SCH ×2 (05:56→18:01)
[2020-09-27] MEDS: SUCRALFATE 1 GM TAB PO SCH ×3 (05:56→18:00)
[2020-09-27 08:05] LABS: BASO % 0.4 % (0.0-1.0); EOS # 0.1 10^3/uL (0.0-0.5); EOS % 2.5 % (0.0-3.0); HEMATOCRIT 26.2 % (42.0-52.0); HEMOGLOBIN 9.1 g/dl (13.5-17.5); LYMPH # 1.1 10^3/uL (1.5-5.0); LYMPH % 22.1 % (24.0-44.0); MEAN CORPUSCULAR HEMOGLOBIN 31.3 pg (27.0-33.0); MEAN CORPUSCULAR HGB CONC 34.7 g/dl (32.0-36.5); MONO # 0.8 10^3/uL (0.0-0.8); MONO % 17.1 % (0.0-5.0); NEUTROPHILS # 2.8 10^3/uL (1.5-8.5); NEUTROPHILS % 57.5 % (36.0-66.0); PLATELET COUNT, AUTOMATED 230 10^3/uL (150-450); RED BLOOD COUNT 2.91 10^6/uL (4.30-6.10); WHITE BLOOD COUNT 4.8 10^3/uL (4.0-10.0)
[2020-09-27 08:34] LABS: ALBUMIN 1.6 GM/DL (3.2-5.2); ALT/SGPT 22 U/L (12-78); BILIRUBIN,TOTAL 0.4 MG/DL (0.2-1.0); BLOOD UREA NITROGEN 9 MG/DL (7-18); CALCIUM LEVEL 7.3 MG/DL (8.5-10.1); CARBON DIOXIDE LEVEL 26 MEQ/L (21-32); CHLORIDE LEVEL 102 MEQ/L (98-107); GLOMERULAR FILTRATION RATE > 60.0 (>56); GLUCOSE, FASTING 251 MG/DL (70-100); LIPASE 60 U/L (73-393); MAGNESIUM LEVEL 1.4 MG/DL (1.8-2.4); POTASSIUM SERUM 5.1 MEQ/L (3.5-5.1); SODIUM LEVEL 133 MEQ/L (136-145); TOTAL PROTEIN 4.5 GM/DL (6.4-8.2)
[2020-09-27] MEDS: HumaLOG INSULIN (NovoLOG) PER UNIT SC SCH ×4 (08:37→20:19)
[2020-09-27] MEDS: MIRALAX *UNIT DOSE* 17GM PACKET PO SCH (08:37)
[2020-09-27] MEDS: FUROSEMIDE 40 MG TAB PO SCH ×2 (08:39→18:01)
[2020-09-27] MEDS: FOLIC ACID 1 MG TAB PO SCH (08:39)
[2020-09-27] MEDS: POTASSIUM CHLORIDE 10 MEQ SR TABLET PO SCH (08:39)
[2020-09-27] MEDS: lisinopriL 40 MG TAB PO SCH (08:40)
[2020-09-27] MEDS: CARVedilol 12.5 MG TAB PO SCH ×2 (08:40→20:19)
[2020-09-27] MEDS: GABAPENTIN 300 MG CAP PO SCH ×3 (08:41→20:17)
[2020-09-27] MEDS: TAMSULOSIN 0.4 MG CAP PO SCH ×2 (08:41→20:17)
[2020-09-27] MEDS: PANTOPRAZOLE 40MG TAB (PROTONIX) PO SCH (08:42)
[2020-09-27] MEDS: DULoxetine 30 MG CAP (CYMBALTA) PO SCH ×2 (08:42→20:17)
[2020-09-27] MEDS: DOCUSATE SODIUM 100MG CAPSULE PO SCH ×2 (08:43→20:17)
[2020-09-27] MEDS: SENNA 8.6 MG TAB (SENOKOT) PO SCH (08:43)
[2020-09-27] MEDS: MULTIVITAMINS/MINERALS THERAP 1 TAB PO SCH (08:43)
[2020-09-27 12:30] VITALS: BP 168/104
[2020-09-27] MEDS: MAGNESIUM OXIDE 400MG TAB (MAG-OX) PO SCH (12:35)
[2020-09-27 14:00] VITALS: BP 133/72
--- NOTE | 2020-09-27 15:44 | IPNPDOC ---
Subjective Date Seen The patient was seen on 09/27/20. Subjective Chief Complaint/HPI Mr. Kaye is a 55-year-old male who is here with abdominal pain and found to have acute pancreatitis and acute upper GI bleed. No events overnight. This morning, he denies any fever, chest pain, dyspnea, or abdominal pain. He is supposed to receives boots tomorrow for his dropped foot. Objective Physical Examination General Exam: Positive: Alert, Cooperative, Mild Distress Eye Exam: Negative: Sclera icteric ENT Exam: Positive: Atraumatic Neck Exam: Positive: Supple Chest Exam: Positive: Clear to auscultation; Negative: Wheezing Heart Exam: Positive: Rate Normal, Regular Rhythm Abdomen Exam: Positive: Normal bowel sounds, Soft, Tenderness Extremity Exam: Positive: Edema (bilateral pitting) Skin Exam: Positive: Nl turgor and temperature Neuro Exam: Positive: Normal Speech Psych Exam: Positive: Mental status NL, Mood NL Assessment /Plan Assessment Mr. Kaye is a 55-year-old male who is here with abdominal pain and found to have acute pancreatitis and acute upper GI bleed. Although he did not have a significant elevation in lipase. He has imaging suggestive of acute pancreatitis and abdominal tenderness. He was given IVF. On the evening of September 21, he is acutely anemic with a hemoglobin of 6.1. After multiple transfusions, he remained anemic at 6.3. Gen. surgery was consulted and his taken to the OR on the morning of September 22. They found a bleeding ulcer which was cauterized. Then evening of September 22, he was anemic again at 6.5, but responded appropriately to 2u pRBC. No repeat scopes needed at this time since he had no BMs during this time. On September 23, he tolerated a solid diet and was feeling well. On September 24, his morning hemoglobin dropped to 7.6. Abdominal pain returned. On Sep 26, hemoglobin dropped to 7.4 but rebounded to 8.1. Today, hemoglobin 9.1. Otherwise renal function improved, but imaging demonstrates free air in bladder, but cystogram was negative for fistula. The free air may have been from a cath. UA negative for nitrite, leuk esterase, or bacteria. Positive for blood. This may be related cuevas trauma Otherwise, pending boots for drop foot. Anticipate discharge tomorrow after receiving boots. Plan/VTE VTE Prophylaxis Ordered?: Yes Plan 1. Acute on chronic pancreatitis Meets 2/3 criteria. Imaging suggestive of acute pancreatitis and abdominal tenderness Abdominal pain returned this morning after tolerating solid meals yesterday Repeat CT abdomen and pelvis demonstrated chronic pancreatitis, but there is air in the bladder. Air most likely from Cuevas 2. Acute upper GI bleed Hemoglobin dropped to 6.1. Did not appropriately responded to blood transfusion DVT prophylaxis Heparin was held To surgery took to the OR on September 22. Cauterized ulcer Evening of September 22, H&H dropped to 6.5, responded to 2u pRBC Morning of September 23, H&H dropped to 7.6 but then rebounded to 8 Resolved 3. Hypertension Controlled Continue amlodipine, Imdur, Coreg, lisinopril, and tamsulosin 4. Diabetes mellitus Continue insulin sliding scale 5. Chronic pain Continue gabapentin 6. Free in bladder History of diverticulitis He is at risk for colovesicular fistula Retrograde cystogram negative for fistula -Most likely from catheterization 7. DVT prophylaxis SCDs and teds Disposition: Anticipate discharge tomorrow after receiving boots for drop foot VS, I&O, 24H, [facility] Vital Signs/I&O Vital Signs Date Time Temp Pulse Resp B/P (MAP) Pulse Ox O2 Delivery O2 Flow Rate FiO2 09/27/20 14:00 97.8 69 19 133/72 (92) 99 Room Air 09/26/20 15:50 96 09/22/20 16:00 3.0 I&O- Last 24 Hours up to 6 AM 09/27/20 06:00 Intake Total 3220 ml Output Total 0 ml Balance 3220 ml Laboratory Data 24H LABS Laboratory Tests 2 09/26/20 16:27: Bedside Glucose (Misc Panel) 90 09/26/20 20:41: Bedside Glucose (Misc Panel) 212H 09/27/20 07:31: Bedside Glucose (Misc Panel) 240H 09/27/20 07:46: Immature Granulocyte % (Auto) 0.4, Neutrophils (%) (Auto) 57.5, Lymphocytes (%) (Auto) 22.1L, Monocytes (%) (Auto) 17.1H, Eosinophils (%) (Auto) 2.5, Basophils (%) (Auto) 0.4, Neutrophils # (Auto) 2.8, Lymphocytes # (Auto) 1.1L, Monocytes # (Auto) 0.8, Eosinophils # (Auto) 0.1, Basophils # (Auto) 0.0, Nucleated Red Blood Cells % (auto) 0.0, Anion Gap 5L, Glomerular Filtration Rate > 60.0, Calc ium Level 7.3L, Magnesium Level 1.4L, Total Bilirubin 0.4, Aspartate Amino Transf (AST/SGOT) 41H, Alanine Aminotransferase (ALT/SGPT) 22, Alkaline Phosphatase 161H, Total Protein 4.5#L, Albumin 1.6L, Albumin/Globulin Ratio 0.6, Lipase 60L 09/27/20 11:43: Bedside Glucose (Misc Panel) 77 CBC/BMP Laboratory Tests 09/26/20 18:07 09/27/20 07:46 Microbiology Microbiology 09/25/20 Urine Culture - Final, Complete Klebsiella Pneumoniae 09/21/20 Blood Culture - Final, Complete NO GROWTH AFTER 5 DAYS 09/21/20 Blood Culture - Final, Complete NO GROWTH AFTER 5 DAYS 09/19/20 Group A Streptococcus Screen (MONET) - Final, Complete 09/19/20 Eye/Ear/Nose/Throat Culture - Final, Complete CRISTOFER SAM DO Sep 27, 2020 15:44
[2020-09-27 17:30] LABS: BLOOD UREA NITROGEN 9 MG/DL (7-18); CALCIUM LEVEL 7.6 MG/DL (8.5-10.1); CARBON DIOXIDE LEVEL 30 MEQ/L (21-32); CHLORIDE LEVEL 100 MEQ/L (98-107); CREATININE FOR GFR 0.93 MG/DL (0.70-1.30); GLOMERULAR FILTRATION RATE > 60.0 (>56); GLUCOSE, FASTING 189 MG/DL (70-100); POTASSIUM SERUM 3.7 MEQ/L (3.5-5.1); SODIUM LEVEL 136 MEQ/L (136-145)
[2020-09-27] MEDS: MOM 30ML SUSPENSION UDC PO PRN (18:33)
[2020-09-27 20:15] VITALS: BP 160/88
[2020-09-27] MEDS: rOPINIRole 1MG TAB PO SCH (20:17)
[2020-09-27] MEDS: NALTREXONE 50 MG TAB PO SCH (20:18)
[2020-09-27 22:00] VITALS: BP 160/88
[2020-09-28] VITALS: BP 147/72
[2020-09-28] MEDS: NICOTINE 21MG/24HR 1 EA TRANSDERMAL TD PRN (00:08)
[2020-09-28] MEDS: SUCRALFATE 1 GM TAB PO SCH ×3 (00:08→12:11)
[2020-09-28] MEDS: ISOSORBIDE DIN. (ISORDIL) 20 MG TAB PO SCH ×3 (00:10→12:12)
[2020-09-28] MEDS: BACTRIM 160MG/800MG DS TAB PO SCH (05:57)
[2020-09-28 06:00] VITALS: BP 163/87
[2020-09-28 06:28] LABS: BASO % 0.2 % (0.0-1.0); EOS # 0.1 10^3/uL (0.0-0.5); EOS % 2.7 % (0.0-3.0); HEMATOCRIT 26.4 % (42.0-52.0); HEMOGLOBIN 8.8 g/dl (13.5-17.5); LYMPH % 23.6 % (24.0-44.0); MEAN CORPUSCULAR HEMOGLOBIN 30.9 pg (27.0-33.0); MEAN CORPUSCULAR HGB CONC 33.3 g/dl (32.0-36.5); MEAN CORPUSCULAR VOLUME 92.6 fl (80.0-96.0); MONO # 0.6 10^3/uL (0.0-0.8); MONO % 15.4 % (0.0-5.0); NEUTROPHILS # 2.4 10^3/uL (1.5-8.5); NEUTROPHILS % 57.9 % (36.0-66.0); PLATELET COUNT, AUTOMATED 260 10^3/uL (150-450); RED BLOOD COUNT 2.85 10^6/uL (4.30-6.10); WHITE BLOOD COUNT 4.2 10^3/uL (4.0-10.0)
[2020-09-28 06:56] LABS: ALBUMIN 1.7 GM/DL (3.2-5.2); ALT/SGPT 18 U/L (12-78); BILIRUBIN,TOTAL 0.6 MG/DL (0.2-1.0); BLOOD UREA NITROGEN 10 MG/DL (7-18); CALCIUM LEVEL 7.6 MG/DL (8.5-10.1); CARBON DIOXIDE LEVEL 31 MEQ/L (21-32); CHLORIDE LEVEL 97 MEQ/L (98-107); CREATININE FOR GFR 0.92 MG/DL (0.70-1.30); GLOMERULAR FILTRATION RATE > 60.0 (>56); GLUCOSE, FASTING 254 MG/DL (70-100); LIPASE 70 U/L (73-393); MAGNESIUM LEVEL 1.3 MG/DL (1.8-2.4); POTASSIUM SERUM 3.6 MEQ/L (3.5-5.1); SODIUM LEVEL 134 MEQ/L (136-145); TOTAL PROTEIN 4.4 GM/DL (6.4-8.2)
[2020-09-28] MEDS: DULoxetine 30 MG CAP (CYMBALTA) PO SCH (07:43)
[2020-09-28] MEDS: HumaLOG INSULIN (NovoLOG) PER UNIT SC SCH ×2 (07:44→12:11)
[2020-09-28] MEDS: SENNA 8.6 MG TAB (SENOKOT) PO SCH (07:44)
[2020-09-28] MEDS: MULTIVITAMINS/MINERALS THERAP 1 TAB PO SCH (07:45)
[2020-09-28] MEDS: TAMSULOSIN 0.4 MG CAP PO SCH (07:45)
[2020-09-28] MEDS: PANTOPRAZOLE 40MG TAB (PROTONIX) PO SCH (07:45)
[2020-09-28] MEDS: FOLIC ACID 1 MG TAB PO SCH (07:45)
[2020-09-28] MEDS: lisinopriL 40 MG TAB PO SCH (07:45)
[2020-09-28] MEDS: CARVedilol 12.5 MG TAB PO SCH (07:46)
[2020-09-28] MEDS: GABAPENTIN 300 MG CAP PO SCH (07:46)
[2020-09-28] MEDS: MAGNESIUM OXIDE 400MG TAB (MAG-OX) PO SCH (07:47)
[2020-09-28] MEDS: DOCUSATE SODIUM 100MG CAPSULE PO SCH (07:47)
[2020-09-28] MEDS: POTASSIUM CHLORIDE 10 MEQ SR TABLET PO SCH (07:47)
[2020-09-28] MEDS: FUROSEMIDE 40 MG TAB PO SCH (07:47)
[2020-09-28] MEDS: MIRALAX *UNIT DOSE* 17GM PACKET PO SCH (07:48)
[2020-09-28] MEDS ORDERED: SULF1TAB93 PO (10:10)
[2020-09-28] MEDS ORDERED: AMLO1TAB25 PO (10:10)
[2020-09-28] MEDS ORDERED: DOK1CAP7 PO (10:10)
[2020-09-28] MEDS ORDERED: SENN18TA PO (10:10)
[2020-09-28] MEDS ORDERED: PEG1POW PO (10:10)
[2020-09-28] MEDS ORDERED: FLOM0.4C39 PO (10:10)
[2020-09-28] MEDS ORDERED: MAGN400T35 PO (10:10)
[2020-09-28 12:12] VITALS: BP 152/92
--- NOTE | 2020-09-28 23:53 | DS.PDOC ---
Discharge Summary General Date of Admission Sep 19, 2020 at 15:21 Date of Discharge Sep 28, 2020 Attending Physician: CRISTOFER SAM DO Specialist/Consultants [facility] General Surgery, Dr. Tripp Discharge Summary PROCEDURES PERFORMED DURING STAY: EGD on 09/22/[address] Tripp ADMITTING DIAGNOSES: 1. Acute on chronic pancreatitis 2. Acute upper GI bleed 3. Hypertension 4. Diabetes mellitus 5. Chronic pain 6. Alcohol abuse with fatty liver 7. Crohn's disease DISCHARGE DIAGNOSES: 1. Acute on chronic pancreatitis 2. Acute upper GI bleed 2/2 spurting jejunal ulcer treated with a heater probe 3. Hypertension 4. Diabetes mellitus 5. Chronic pain 6. Alcohol abuse with fatty liver 7. Crohn's disease 8. Cellulitis 9. Hypomagnesemia COMPLICATIONS/CHIEF COMPLAINT: Nausea,Rhabdomyolysis. HISTORY OF PRESENT ILLNESS: Mr. Brito is a 55 year old male with diabetes mellitus, alcohol use disorder, Crohn's disease, prior GI bleed, and history of gastric bypass surgery who presents with abdominal pain. Pain is an 8/10 epigastric abdominal pain. Pain ranges from sharp to dull with no radiation. He has dry heaves. He is an alcoholic. Last drink was the day prior to admission, about 2 to 3 cans of beer. He has been having bowel incontinence for several months. While in the ED he was hypertensive and he was admitted for hypertensive urgency. HOSPITAL COURSE: During his hospitalization, he continued to have abdominal pain. CT abd/pelvis suggested acute on chronic pancreatitis. He was given IVF and made NPO. On evening of 09/21/2020, patient hemoglobin dropped and patient was given 2u pRBC. Patient's hemoglobin did not respond and patient had hematemesis. Patient was urgently taken to the OR supervising law enforcement analyst of 09/22/[address] Tripp. EGD did demonstrate spurting jejunal ulcer treated with a heater probe. Patient's H&H eventually stabilized. Patient abdominal pain and nausea resolved and patient tolerated food. Today, patient was feeling well. He tolerated a diet and denied any chest pain, dyspnea, abdominal pain, or nausea. Patient was subsequently discharged home. Of note, over the weekend, IV lines were lost. They had trouble finding a vein. Where he had IV's, there appears to be a beginning of cellulitis. Started patient on Bactrim for those areas of cellulitis. Patient also had hypomagnesemia. Unable to do IV magnesium sulfate, so started patient on PO magnesium supplements. DISCHARGE MEDICATIONS: Please see below. ALLERGIES: Please see below. PHYSICAL EXAMINATION ON DISCHARGE: VITAL SIGNS: Please see below. GENERAL: Comfortable, in no apparent distress HEENT: Head normocephalic, atraumatic, EOMI NECK: Supple CARDIOVASCULAR EXAMINATION: Regular rate and rhythm RESPIRATORY EXAMINATION: Lungs clear to auscultation bilaterally ABDOMINAL EXAMINATION: Soft, non-tender, normal bowel sounds EXTREMITIES: Bilateral pitting edema SKIN: Warm and dry NEUROLOGICAL EXAMINATION: CN 3-12 grossly intact PSYCHIATRIC EXAMINATION: Normal mood and affect LABORATORY DATA: Please see below. IMAGING: CT abd/pelvis 1. 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 There is peripancreatic induration, particularly about the head which is slightly increased since the prior study suggesting acute pancreatitis. 2. Status post gastric bypass and cholecystectomy. There is mild retained fluid in the bypassed stomach. 3. Fatty infiltration of the liver. 4. IVC filter in position. 5. Metallic hardware in the posterior right acetabulum. 6. Question of minimal areas nonspecific segmental colitis. 7. There is calcification of the vas deferens consistent with diabetes. CT head 1. 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 2. Depression of the posterior right zygomatic arch consistent with old fracture which is similar. 3. No acute interval intracranial process is identified. PROGNOSIS: Good ACTIVITY: As tolerated. DIET: Carbohydrate consistent diet DISCHARGE PLAN: Home DISPOSITION: 01 Home, Self-Care. DISCHARGE INSTRUCTIONS: 1. Follow up with your PCP within 1 week 2. Follow up with General Surgery, Dr. Tripp, in 1 week 3. Take antibiotic to completion 4. Take magnesium supplements for hypomagnesemia DISCHARGE CONDITION: Stable. Total time spent on discharge planning, discharge summary, and medication reconciliation: 45 minutes Vital Signs/I&Os Vital Signs Date Time Temp Pulse Resp B/P (MAP) Pulse Ox O2 Delivery O2 Flow Rate FiO2 09/28/20 12:12 152/92 09/28/20 07:45 64 09/28/20 06:00 98.1 17 98 Room Air 09/26/20 15:50 96 09/22/20 16:00 3.0 I&O- Last 24 Hours up to 6 AM 09/28/20 06:00 Intake Total 880 ml Balance 880 ml Laboratory Data Labs 24H Laboratory Tests 2 09/28/20 05:33: Immature Granulocyte % (Auto) 0.2, Neutrophils (%) (Auto) 57.9, Lymphocytes (%) (Auto) 23.6L, Monocytes (%) (Auto) 15.4H, Eosinophils (%) (Auto) 2.7, Basophils (%) (Auto) 0.2, Neutrophils # (Auto) 2.4, Lymphocytes # (Auto) 1.0L, Monocytes # (Auto) 0.6, Eosinophils # (Auto) 0.1, Basophils # (Auto) 0.0, Nucleated Red Blood Cells % (auto) 0.0, Anion Gap 6L, Glomerular Filtration Rate > 60.0, Calcium Level 7.6L, Magnesium Level 1.3L, Total Bilirubin 0.6, Aspartate Amino Transf (AST/SGOT) 11, Alanine Aminotransferase (ALT/SGPT) 18, Alkaline Phosphatase 158H, Total Protein 4.4L, Albumin 1.7L, Albumin/Globulin Ratio 0.6, Lipase 70L 09/28/20 11:48: Bedside Glucose (Misc Panel) 205H CBC/BMP Laboratory Tests 09/28/20 05:33 FSBS Laboratory Tests Test 09/28/20 11:48 Range/Units Bedside Glucose (Misc Panel) 205 70-105 MG/DL Microbiology Microbiology 09/25/20 Urine Culture - Final, Complete Klebsiella Pneumoniae 09/21/20 Blood Culture - Final, Complete NO GROWTH AFTER 5 DAYS 09/21/20 Blood Culture - Final, Complete NO GROWTH AFTER 5 DAYS 09/19/20 Group A Streptococcus Screen (MONET) - Final, Complete 09/19/20 Eye/Ear/Nose/Throat Culture - Final, Complete Discharge Medications Scheduled Amlodipine Besylate (Amlodipine Besylate) 10 Mg Tablet, 10 MG PO DAILY Carvedilol (Carvedilol) 25 Mg Tablet, 25 MG PO BID, (Reported) Docusate Sodium (Dok) 100 Mg Capsule, 100 MG PO BID Duloxetine Hcl (Duloxetine HCl) 60 Mg Capsule.dr, 60 MG PO BID, (Reported) Folic Acid (Folic Acid) 1 Mg Tablet, 1 MG PO DAILY, (Reported) Gabapentin (Gabapentin) 600 Mg Tablet, 600 MG PO TID, (Reported) Lisinopril (Lisinopril) 40 Mg Tablet, 40 MG PO DAILY, (Reported) Magnesium Oxide (Magnesium Oxide) 400 Mg Tablet, 400 MG PO DAILY Metformin HCl (Metformin HCl ER) 500 Mg Tab.er.24h, 1,000 MG PO BID, (Reported) Multivitamin,Therapeutic (Thera-Tabs) 1 Each Tablet, 1 TAB PO DAILY, (Reported) Naltrexone HCl (Naltrexone HCl) 50 Mg Tablet, 50 MG PO QHS, (Reported) Follansbee-3 Acid Ethyl Esters (Follansbee-3 Acid Ethyl Esters) 1 Gm Capsule, 4 GM PO DAILY, (Reported) Omeprazole (Omeprazole) 40 Mg Capsule.dr, 40 MG PO BID, (Reported) Ropinirole HCl (Ropinirole HCl) 0.5 Mg Tablet, 1 MG PO QHS, (Reported) Senna (Senna Lax) 8.6 Mg Tablet, 2 TAB PO DAILY Use for constipation Sulfamethoxazole/Trimethoprim (Sulfamethoxazole-Tmp Ds Tablet) 1 Each Tablet, 1 TAB PO Q12H Tamsulosin HCl (Flomax) 0.4 Mg Capsule, 0.4 MG PO BID Thiamine HCl (Thiamine HCl) 100 Mg Tablet, 100 MG PO DAILY, (Reported) Scheduled PRN Hydroxyzine HCl (Hydroxyzine HCl) 50 Mg Tablet, 50 MG PO TID PRN for ANXIETY/AGITATION, (Reported) Lidocaine/Prilocaine (Lidocaine-Prilocaine Cream) 2.5%/2.5% Cream..g., 1 APPLIC TOP BID PRN for PAIN, (Reported) APPLY TO AFFECTED AREA ON RIGHT LEG Polyethylene Glycol 3350 (Polyethylene Glycol 3350) 17 Gm Powd.pack, 1 PKT PO DAILYPRN PRN for CONSTIPATION Allergies Coded Allergies: No Known Allergies (Unverified , 08/22/20) CRISTOFER SAM DO Sep 28, 2020 23:53
== END 2020-09-28 13:45 | disposition home or self-care (01) | DRG 438 ==
LOC: M ED 19:09 → M ED INP 19:10 → M MSPAV 09-19 05:57 → OBSVTOIN 09-19 15:21 → M PCU 09-22 02:00 → M MS5PR 09-23 17:13
PROVIDERS: ADMIT Family Medicine; ATTEND Internal Medicine
PROC: 30233N1 Transfusion of Nonautologous Red Blood Cells into Peripheral Vein, Percutaneous Approach (ICD-10-PCS; 2020-09-21)
PROC: 30233K1 Transfusion of Nonautologous Frozen Plasma into Peripheral Vein, Percutaneous Approach (ICD-10-PCS; 2020-09-22)
PROC: 0W3P8ZZ Control Bleeding in Gastrointestinal Tract, Via Natural or Artificial Opening Endoscopic (ICD-10-PCS; principal; 2020-09-22 04:45)
DX: K85.90 Acute pancreatitis without necrosis or infection, unspecified (principal); K28.4 Chronic or unspecified gastrojejunal ulcer with hemorrhage; M62.82 Rhabdomyolysis; K50.90 Crohn's disease, unspecified, without complications; K92.1 Melena; E83.42 Hypomagnesemia; I10 Essential (primary) hypertension; E11.51 Type 2 diabetes mellitus with diabetic peripheral angiopathy without gangrene; Z79.899 Other long term (current) drug therapy; E78.5 Hyperlipidemia, unspecified; K21.9 Gastro-esophageal reflux disease without esophagitis; E53.8 Deficiency of other specified B group vitamins; M54.2 Cervicalgia; M54.5 Low back pain; D50.9 Iron deficiency anemia, unspecified; K57.30 Diverticulosis of large intestine without perforation or abscess without bleeding; G25.81 Restless legs syndrome; E87.6 Hypokalemia; F17.200 Nicotine dependence, unspecified, uncomplicated

== ENCOUNTER → 2020-10-05 | Outpatient (REF) | payer OTHER, MEDICAID ==
[~2020-10-05] MED LIST changes: +AMLO1TAB25 PO; +CARV12.5 PO; +CIPR-249 PO; +CIPR500T39 PO; +DOK1CAP7 PO; +FLAG500T PO; +FLOM0.4C39 PO; +LANTINJ4 SC; +LEVO750T13 PO; +MAGN400T2 PO; +MAGN400T35 PO; +METR-265 PO; +MIDO5TA PO; +OMEP-221 PO; +PEG1POW PO; +SENN18TA PO; +SUCR1ORA2 PO; +SULF1TAB93 PO; +TAMS1CAP17 PO; +THERTAB52 PO; +THIA100T7 PO
[2020-10-05 17:57] LABS: BASO # 0.1 10^3/uL (0.0-0.2); BASO % 1.5 % (0.0-1.0); EOS # 0.1 10^3/uL (0.0-0.5); EOS % 1.1 % (0.0-3.0); HEMATOCRIT 28.5 % (42.0-52.0); HEMOGLOBIN 9.3 g/dl (13.5-17.5); LYMPH % 22.5 % (24.0-44.0); MEAN CORPUSCULAR HEMOGLOBIN 30.8 pg (27.0-33.0); MEAN CORPUSCULAR HGB CONC 32.6 g/dl (32.0-36.5); MEAN CORPUSCULAR VOLUME 94.4 fl (80.0-96.0); MONO # 0.4 10^3/uL (0.0-0.8); MONO % 8.2 % (0.0-5.0); NEUTROPHILS % 66.5 % (36.0-66.0); PLATELET COUNT, AUTOMATED 393 10^3/uL (150-450); RED BLOOD COUNT 3.02 10^6/uL (4.30-6.10); WHITE BLOOD COUNT 4.5 10^3/uL (4.0-10.0)
[2020-10-05 20:14] LABS: ALBUMIN 1.8 GM/DL (3.2-5.2); BILIRUBIN,TOTAL 0.2 MG/DL (0.2-1.0); C REACTIVE PROTEIN QUANTITATIV 1.05 MG/DL (0.00-0.30); CALCIUM LEVEL 8.2 MG/DL (8.5-10.1); CREATININE FOR GFR 1.38 MG/DL (0.70-1.30); GLOMERULAR FILTRATION RATE 57.2 (>56); MAGNESIUM LEVEL 1.6 MG/DL (1.8-2.4); POTASSIUM SERUM 4.8 MEQ/L (3.5-5.1); TOTAL PROTEIN 4.9 GM/DL (6.4-8.2)
== END ==
LOC: M SFHCPLAZ 14:56
PROVIDERS: ATTEND Physician Assistant Medical
DX: K85.22 Alcohol induced acute pancreatitis with infected necrosis (principal); K92.2 Gastrointestinal hemorrhage, unspecified; K70.0 Alcoholic fatty liver; K50.919 Crohn's disease, unspecified, with unspecified complications; E83.42 Hypomagnesemia
CPT/HCPCS: 36415; 80053; 82150; 82728; 83540; 83690; 83735; 85025; 86140; 99496; G0463

== ENCOUNTER → 2020-10-08 | Outpatient (CLI) | payer OTHER, MEDICAID ==
[~2020-10-08] MED LIST changes: -CARV12.5 PO; -CIPR-249 PO; -CIPR500T39 PO; -FLAG500T PO; -LANTINJ4 SC; -LEVO750T13 PO; +LISI-538 PO; -LISI20TA33 PO; +LISI40TA; +LISI40TA PO; -LISI40TA4; -LISI40TA4 PO; +MAG400TA PO; -MAGN400T2 PO; -MAGN400T35 PO; -METR-265 PO; -MIDO5TA PO; +OMEG1CAP4 PO; -OMEG1CAP85 PO; -SUCR1ORA2 PO; -TAMS1CAP17 PO
[2020-10-08 16:48] LABS: ACETONE/KETONE 1.04 MG/DL (<2.81); ALBUMIN 1.8 GM/DL (3.2-5.2); ALT/SGPT 24 U/L (12-78); BILIRUBIN,TOTAL 0.3 MG/DL (0.2-1.0); BLOOD UREA NITROGEN 10 MG/DL (7-18); CALCIUM LEVEL 7.8 MG/DL (8.5-10.1); CARBON DIOXIDE LEVEL 31 MEQ/L (21-32); CHLORIDE LEVEL 100 MEQ/L (98-107); ETHYL ALCOHOL (ETHANOL) < 0.003 % (0.000-0.010); GLOMERULAR FILTRATION RATE > 60.0 (>56); GLUCOSE, FASTING 531 MG/DL (70-100); POTASSIUM SERUM 3.8 MEQ/L (3.5-5.1); SODIUM LEVEL 134 MEQ/L (136-145); TOTAL PROTEIN 4.7 GM/DL (6.4-8.2)
== END ==
LOC: M LAB 14:38
PROVIDERS: ATTEND Physician Assistant Medical
DX: E13.10 Other specified diabetes mellitus with ketoacidosis without coma (principal); Z79.899 Other long term (current) drug therapy
CPT/HCPCS: 36415; 80053; 82010; G0480

== ENCOUNTER 2020-10-21 12:10 | Emergency (ER) | payer MEDICAID, OTHER ==
[~2020-10-21] VITALS: Ht 175.3 cm; Wt 77.3 kg
[~2020-10-21 12:10] MED LIST changes: -LISI-538 PO; +LISI20TA33 PO; -LISI40TA; -LISI40TA PO; +LISI40TA4; +LISI40TA4 PO; -MAG400TA PO; +MAGN400T35 PO; -OMEG1CAP4 PO; +OMEG1CAP85 PO
[2020-10-21] MEDS ORDERED: LANTINJ4 SC (12:24)
[2020-10-21 13:38] LABS: RSV AMPLIFICATION NEGATIVE (NEGATIVE)
[2020-10-21] MEDS ORDERED: NS 1,000 ML IV SCH (13:43)
[2020-10-21] MEDS ORDERED: ACETAMINOPHEN TAB 650MG DOSE (2X325MG) PO ONE (13:45)
--- NOTE | 2020-10-21 14:02 | REP ---
INDICATION: Altered Mental Status. COMPARISON: 09/22/2020. TECHNIQUE: SINGLE PORTABLE AP VIEW OF THE CHEST WAS PERFORMED. FINDINGS: THERE IS NO ACUTE INFILTRATE OR PULMONARY EDEMA. LUNGS ARE CLEAR. HEART IS NOT SIGNIFICANTLY ENLARGED. MEDIASTINAL SILHOUETTE IS UNREMARKABLE. THE VISUALIZED OSSEOUS STRUCTURES ARE INTACT. IMPRESSION: NO ACUTE PULMONARY DISEASE. <Electronically signed by Jose Juan York > 10/21/20 1325
[2020-10-21 14:21] LABS: BASO % 0.3 % (0.0-1.0); HEMATOCRIT 27.8 % (42.0-52.0); HEMOGLOBIN 9.4 g/dl (13.5-17.5); LYMPH # 0.3 10^3/uL (1.5-5.0); LYMPH % 3.6 % (24.0-44.0); MEAN CORPUSCULAR HEMOGLOBIN 30.9 pg (27.0-33.0); MEAN CORPUSCULAR HGB CONC 33.8 g/dl (32.0-36.5); MEAN CORPUSCULAR VOLUME 91.4 fl (80.0-96.0); MONO # 0.5 10^3/uL (0.0-0.8); MONO % 5.3 % (0.0-5.0); NEUTROPHILS # 8.3 10^3/uL (1.5-8.5); NEUTROPHILS % 89.9 % (36.0-66.0); PLATELET COUNT, AUTOMATED 257 10^3/uL (150-450); RED BLOOD COUNT 3.04 10^6/uL (4.30-6.10); WHITE BLOOD COUNT 9.2 10^3/uL (4.0-10.0)
[2020-10-21] MEDS: GASTROGRAFIN SOLUTION 30ML PO SCH ×2 (14:23→14:54)
[2020-10-21 15:00] LABS: ALBUMIN 1.6 GM/DL (3.2-5.2); ALT/SGPT 19 U/L (12-78); BILIRUBIN,DIRECT 0.1 MG/DL (0.0-0.2); BILIRUBIN,TOTAL 0.2 MG/DL (0.2-1.0); BLOOD UREA NITROGEN 8 MG/DL (7-18); CALCIUM LEVEL 7.3 MG/DL (8.5-10.1); CARBON DIOXIDE LEVEL 21 MEQ/L (21-32); CHLORIDE LEVEL 102 MEQ/L (98-107); CK-MB VALUE MASS 2.6 NG/ML (<3.6); CPK CREATINE PHOSPHOKINASE 154 U/L (39-308); CREATININE FOR GFR 0.99 MG/DL (0.70-1.30); GLOMERULAR FILTRATION RATE > 60.0 (>56); GLUCOSE, FASTING 357 MG/DL (70-100); LIPASE 66 U/L (73-393); MB/CK RELATIVE INDEX 1.69 (< OR =4); POTASSIUM SERUM 3.1 MEQ/L (3.5-5.1); SODIUM LEVEL 134 MEQ/L (136-145); TOTAL PROTEIN 4.6 GM/DL (6.4-8.2); TROPONIN I 0.04 NG/ML (< 0.10)
[2020-10-21] MEDS ORDERED: POTASSIUM CHLORIDE 10 MEQ SR TABLET PO ONE (15:15)
[2020-10-21] MEDS ORDERED: ISOVUE-370 76% 100ML VIAL As Ordered ONE (15:59)
--- OUTSIDE RECORDS SUMMARY | 2020-10-21 16:18 | CCD | Summary of Care ---
Author Author [facility] Organization [facility] Address Unknown Phone Unavailable Care Team Providers Care Acquisition Editor Name Role Phone Pcp, No PCP Unavailable Reason for Referral * (Routine) Referred By Contact Referred To Contact Status Reason Specialty Diagnoses / Procedures Tamra Erwin MBBS [address] [address] Email: [email or web address] Open Diagnoses Marginal ulcer P rocedures EGD Reason for Visit * Reason Comments Follow-up Encounter Details Care Team Description Date Type Department Tamra Erwin MBBS [address] [address] [phone] Marginal ulcer (Primary Dx) 08/05/2020 [facility] [address] [address] Allergies No Known Allergiesdocumented as of this encounter (statuses as of 08/05/2020) Medications End Date Status Medication Sig Dispensed Refills Start Date Active gabapentin (NEURONTIN) Take 600 mg 0 600 MG tablet by mouth Three times daily. Active cyclobenzaprine Take 10 mg by 0 (FLEXERIL) 10 MG tablet mouth Three times daily as needed for Muscle spasms. Active lidocaine (XYLOCAINE) 5 % 0 ointment 6 Active DULoxetine HCl 30 MG Oral Take 30 mg by 0 Capsule Delayed Release mouth daily Particles (CYMBALTA) Active DULoxetine HCl 60 MG Oral Take 60 mg by 0 Capsule Delayed Release mouth daily Particles (CYMBALTA) Active Diclofenac Sodium 1 % Apply 2 g 0 Transdermal Gel topically (VOLTAREN) Four times daily Active metFORMIN HCl ER (OSM) Take 2,000 mg 0 500 MG Oral Tablet by mouth Extended Release 24 Hour every evening (FORTAMET) Active Naltrexone HCl 50 MG Oral Take 50 mg by 0 Tablet (DEPADE) mouth daily Active Jnffe-8-[id number] Ethyl Esters Take 2 g by 0 1 GM Oral Capsule mouth Two (LOVAZA) Times Daily Active Tamsulosin HCl 0.4 MG Take 0.4 mg 0 Oral Capsule (FLOMAX) by mouth daily Active hydrOXYzine HCl 50 MG Take 50 mg by 0 Oral Tablet (ATARAX) mouth every 6 (six) hours as needed for Itching or Anxiety Active rOPINIRole HCl 0.5 MG Take 1 mg by 0 Oral Tablet (REQUIP) mouth nightly Active amLODIPine Besylate 10 MG Take 1 tablet 30 tablet 1 Oral Tablet (NORVASC) by mouth 0 daily Active Atorvastatin Calcium 20 Take 1 tablet 30 tablet 0 MG Oral Tablet (LIPITOR) by mouth 0 daily 03/26/2021 Active Carvedilol 25 MG Oral Take 1 tablet 60 tablet 11 Tablet (COREG) by mouth Two 0 times daily with meals 05/12/2021 Active Pantoprazole Sodium 40 MG Take 1 tablet 60 tablet 2 Oral Tablet Delayed by mouth Two 0 Release Times Daily (PROTONIX)Indications: Marginal ulcer documented as of this encounter (statuses as of 08/05/2020) Active Problems Problem Noted Date GI bleeding 03/21/2020 EtOH dependence 03/21/2020 Type 2 diabetes mellitus 03/21/2020 Essential hypertension 03/21/2020 Polysubstance abuse 03/21/2020 Alcohol withdrawal 03/21/2020 Symptomatic cholelithiasis 09/22/2017 documented as of this encounter (statuses as of 08/05/2020) Social History Date Tobacco Use Types Packs/Day Years Used Current Every Day Smoker Cigarettes 0.5 5 Smokeless Tobacco: Current User Drinks/Week oz/Week Comments Alcohol Use 24 Cans of beer 24.0 Yes Sex Assigned at Date Recorded Not on file Date Recorded COVID-19 Exposure Response 08/05/2020 9:48 AM EST In the last month, have you been in contact with No / Unsure someone who was confirmed or suspected to have Coronavirus / COVID-19? documented as of this encounter Last Filed Vital Signs Not on filedocumented in this encounter Progress Notes * Tamra Erwin MBBS - 08/05/2020 1:00 PM EST ID: Daryl Fraire is a 55 y.o. male PCP: No Pcp CC: Follow up visit for GI bleeding, choledocholithiasis Brief History/Interval History This is a tele-medical visit. The patient was informed of the risks including se curity breach, technological failure, inability to perform a comprehensive physi yumiko exam which could delay or prevent an accurate diagnosis, and potential compl ications from treatment decisions rendered over a telemedical platform. The elvis ent understands and consented to the use of tele-health services. The service was provided by means of an audio telecommunication. Time spent on this evaluation today: 25 minutes Mr. Daryl Fraire is a 55 year old M with medical Hx significant for gastric byp ass surgery, HTN, HLD, was evaluated by the inpt GI team in March 2020 for sympto ms of painless hematochezia. A CT abdomen pelvis was done, which showed an incid ental finding of dilated pancreatic duct CBD diameter of 7 mm with 3 mm filling defect. This was confirmed with an MRCP. However patient LFTs were basim l and patient did not have any symptoms of abdominal pain, nausea or vomiting. An EGD and colonoscopy was performed in the hospital to evaluate for concerni ng lower GI bleed on 03/25/20. An EGD was done first which showed a marginal ulcer. A colonoscopy was done which showed no abnormal findings or lesions or masses. There was hemorrhoids and tattooing of the hepatic flexure area. CT enterography was done to evaluate for small bowel pathology, however was norm al. Hence patient was discharged on PPI twice daily, sucralfate and the plan was to repeat EGD in 2 months to assess for healing and discuss the need for ER CP for choledocholithiasis and PD dilation. During a telemedicine encounter on 05/13, pt reported that he never completed th e BID PPI and carafate due to compliance issues. Hence at that visit we reinforc ed the importance of treatment completion for his marginal ulcer, along with rep eat LFT's. Next telemedicine encounter was 1 week ago on 07/29 during which pt was asymptomatic, and has been taking once a day omeprazole. We had informed pt to get LFT's drawn and plan was to obtain OSH colonoscopy repots, and plan was t o address that at today's visit. During today's clinic visit, pt remains asymptomatic. He denies abdominal pain, GI bleeding, denies fevers, chills, N/V or any other symptoms. He takes daily omeprazole. Pt unfortunately has not yet had the bloodwork done. Also we have re ached out to the GI team at [facility] , and they were unable to find an y of his colonoscopy reports. Past Medical & Surgical History He has a past medical history of Anemia, Arrhythmia, Arthritis, Blood transfusi on without reported diagnosis, Diabetes mellitus, Hepatitis C, Hypertension, Low back pain, Substance abuse, and Ulcer. He has a past surgical history that includes Ankle fracture surgery (2002); Weldon d surgery; Hip surgery; Knee surgery; Cervical spine surgery; Shoulder surgery; Hernia repair; and pr lap,cholecystectomy (N/A, 09/24/2017). No Known Allergies Home Medications Medication Sig amLODIPine Besylate 10 MG Oral Tablet (NORVASC) Take 1 tablet by mouth daily Atorvastatin Calcium 20 MG Oral Tablet (LIPITOR) Take 1 tablet by mouth daily Carvedilol 25 MG Oral Tablet (COREG) Take 1 tablet by mouth Two times daily with meals cyclobenzaprine (FLEXERIL) 10 MG tablet Take 10 mg by mouth Three times daily as needed for Muscle spasms. Diclofenac Sodium 1 % Transdermal Gel (VOLTAREN) Apply 2 g topically Four times daily DULoxetine HCl 30 MG Oral Capsule Delayed Release Particles (CYMBALTA) Take 30 m g by mouth daily DULoxetine HCl 60 MG Oral Capsule Delayed Release Particles (CYMBALTA) Take 60 m g by mouth daily gabapentin (NEURONTIN) 600 MG tablet Take 600 mg by mouth Three times daily. hydrOXYzine HCl 50 MG Oral Tablet (ATARAX) Take 50 mg by mouth every 6 (six) maria luisa rs as needed for Itching or Anxiety lidocaine (XYLOCAINE) 5 % ointment metFORMIN HCl ER (OSM) 500 MG Oral Tablet Extended Release 24 Hour (FORTAMET) Ta ke 2,000 mg by mouth every evening Naltrexone HCl 50 MG Oral Tablet (DEPADE) Take 50 mg by mouth daily Bitki-5-ohjq Ethyl Esters 1 GM Oral Capsule (LOVAZA) Take 2 g by mouth Two Times Daily Pantoprazole Sodium 40 MG Oral Tablet Delayed Release (PROTONIX) Take 1 tablet b y mouth Two Times Daily rOPINIRole HCl 0.5 MG Oral Tablet (REQUIP) Take 1 mg by mouth nightly Tamsulosin HCl 0.4 MG Oral Capsule (FLOMAX) Take 0.4 mg by mouth daily Social History, Family History: Social History Tobacco Use Smoking status: Current Every Day Smoker Packs/day: 0.50 Years: 5.00 Pack years: 2.50 Types: Cigarettes Smokeless tobacco: Current User Substance Use Topics Alcohol use: Yes Alcohol/week: 24.0 standard drinks Types: 24 Cans of beer per week Drug use: Not Currently Types: Heroin, Cocaine, Marijuana, Oxycodone Comment: last used 3-4months ago He has no family status information on file. family history is not on file. Review of Systems Review of Systems Constitutional: Negative for appetite change. Respiratory: Negative for cough and shortness of breath. Cardiovascular: Negative for chest pain. Gastrointestinal: Negative for abdominal distention, abdominal pain, blood in st ool, constipation, diarrhea, nausea, rectal pain and vomiting. Genitourinary: Negative for dysuria. Musculoskeletal: Negative for back pain. Neurological: Negative for dizziness. Psychiatric/Behavioral: Negative for agitation. Physical Exam: There were no vitals taken for this visit. Physical Exam - not done as it was a telemedicine encounter . Data review: Lab 03/25/20 0254 03/25/20 1228 03/25/20 2100 03/26/20 0357 03/26/20 1228 03/27/20 0317 HGB 10.3* 9.0* 8.7* 9.0* 8.7* 10.3* HCT 30.9* 27.4* 26.4* 26.9* 25.7* 30.6* MCV 95.3 95.2 97.9* 95.2 95.1 94.8 PLT 185 158 180 176 178 228 WBC 4.6 4.1 4.7 3.8* 2.9* 3.9* Lab 03/24/20 0231 03/24/20 0340 03/25/20 0254 03/26/20 0357 03/27/20 0317 NA 136 131* 130* 132* 137 K 3.3* 3.1* 3.4 3.4 3.5 CL 100 97* 93* 97* 99 BICARBONATE 27 28 26 26 27 BUN 8 8 7 5* 6 CREATININE 0.80 0.83 0.92 0.97 1.10 Lab 09/22/17193909/23/17 0351 09/24/17 0408 03/21/20 0022 03/21/20 0524 03/22/20 0330 PROT 6.2* 6.0* 6.1* 5.0* 5.3* 5.3* ALBUMIN 3.6 3.4 3.4 2.9* 3.3* 3.0* ALT 63* 57* 49* 22 23 20 AST 29 27 42* 44* 42* 34 ALKPHOS 69 64 64 89 99 96 TBILI 1.1* 1.1* 0.9 0.6 0.7 0.4 BILIDIR 0.5* 0.6* 0.2 -- -- -- Lab 09/22/17193903/21/20 0022 LIPASE -- 16 INR 1.08 1.12 Assessment and Plan: Mr. Daryl Fraire is a 55 year old M with medical Hx significant for gastric byp ass surgery, HTN, HLD currently underwent a GI telemedicine encounter to address h/o marginal ulcer, h/o previous polyps on colonoscopy and CT evidence of PD di lation, chronic pancreatitis and concerns for choledocholithiasis seen on CT and MRCP. An EGD was done on 03/25 which showed a non-bleeding marginal ulcer which did no t require any endoscopic therapy. Was managed medically with PPI BID and sucralf ate. Pt also underwent a colonoscopy which showed hemorrhoids and tattooing of t he hepatic flexure area. (last colonoscopy done at [facility]). We unfortunately are unable to access the results of the colonoscopy but we will continue to reac h out to the surrounding GI offices to see If we can get a hold of the results. But since most recent colonoscopy from 03/2020 was normal, we can plan for a rep eat colonoscopy in 3 years. Plan for an EGD within 4 weeks from now to ensure adequate healing of the margin al ulcer. Pt will subsequently need an ERCP to evaluate the choledocholithiasis and PD dilatation. Pt likely has chronic pancreatitis due to prolonged alcohol consumption in the past and active smoking. We will plan the ERCP after the EGD is done. Pt is pending a repeat LFT's. Orders have been placed and pt confirmed receiving the scripts for the same. Orders Placed This Encounter EGD Scheduling Instructions: Please schedule this EGD with Dr. Rust on at , under moderate sedat ion Order Specific Question: Pre-op diagnosis: Answer: Marginal ulcer Order Specific Question: Special Equipment/Instruments/Supply Needs? Answer: MODERATE SEDATION Order Specific Question: Performing Provider Answer: GERALDO MATA [[id number]] Return visit, return visit tasks: 3 months Seen and discussed with Tamra Jarrell MBBS 08/05/2020 1:22 PM documented in this encounter Plan of Treatment Order Schedule Name Type Priority Associated Diag noses Ordered: 08/05/2020 EGD GI Routine Marginal ulcer Health Maintenance Due Date Last Done Comments Lipid Disorder Screening 1965 MMR Vaccines (1 of 1 - 1967 Standard series) Varicella Vaccines (1 of 1967 2 - 2-dose childhood series) Pneumococcal Vaccine: 01/30/1972 Pediatrics (0 to 5 Years) and At-Risk Patients (6 to 64 Years) (1 of 1 - PPSV23) DTaP,Tdap,and Td Vaccines 1973 (1 - Tdap) Diabetic Foot Exam 01/30/1984 Dilated Retinal Exam 01/30/1984 Hemoglobin A1c 01/30/1984 Urine Microalbumin 01/30/1984 Hepatitis B Vaccines (1 1985 of 3 - Risk 3-dose series) Influenza Vaccine 06/11/2020 06/03/2019, 06/20/2018, 06/17/2018, Additional history exists Colon Cancer Screening 10 03/25/2030 03/25/2020 yrs Pneumococcal Vaccine: 65+ 2031 Years (1 of 1 - PPSV23) HIV Screening Completed 03/21/2020 HIB Vaccines Aged Out No longer eligible based on patient's age to complete this topic Hepatitis A Vaccines Aged Out No longer eligibl e based on patient's age to complete this topic IPV Vaccines Aged Out No longer eligible based on patient's age to complete this topic documented as of this encounter Results Not on filedocumented in this encounter Visit Diagnoses Diagnosis Marginal ulcer - Primary Gastrojejunal ulcer, unspecified as acu te or chronic, without mention of hemorrhage, perforation, or obstruction documented in this encounter
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
--- OUTSIDE RECORDS SUMMARY | 2020-10-21 16:20 | CCD ---
Author Author [facility] Organization [facility] Address Unknown Phone Unavailable Care Team Providers Care Securities Vault Supervisor Name Role Phone KAREN RODRIGUEZ MD Unavailable Unavailable KAREN RODRIGUEZ MD Unavailable Unavailable KAREN RODRIGUEZ MD Unavailable Unavailable KAREN RODRIGUEZ MD Unavailable Unavailable KAREN RODIRGUEZ MD Unavailable Unavailable KAREN RODRIGUEZ MD Unavailable Unavailable KAREN RODRIGUEZ MD Unavailable Unavailable Cheryl KAMARA MD Unavailable Unavailable Cheryl KAMARA MD Unavailable Unavailable Mike, Emanuel Wolf MD Unavailable Unavailable Mike, R Aiupa Unavailable Unavailable Mike, R Anupa MD Unavailable Unavailable Mike, R Anupa MD Unavailable Unavailable Mike, R Anupa MD Unavailable Unavailable Mike, R Anupa MD Unavailable Unavailable Mike, R Anupa MD Unavailable Unavailable Mike, R Aiupa MD Unavailable Unavailable Mike, R Anupa MD Unavailable Unavailable Mike, R Aiupa MD Unavailable Unavailable Mike, R Aiupa MD Unavailable Unavailable Mike, R Anupa MD Unavailable Unavailable BADRINATH, OSMANY . Unavailable Unavailable Udekwu, Adaora MD Unavailable Unavailable Udekwu, Adaora MD Unavailable Unavailable Udekwu, Adaora MD Unavailable Unavailable Udekwu, Adaora MD Unavailable Unavailable Udekwu, Adaora MD Unavailable Unavailable Udekwu, Adaora MD Unavailable Unavailable Udekwu, Adaora MD Unavailable Unavailable Udekwu, Adaora MD Unavailable Unavailable Udekwu, Adaora MD Unavailable Unavailable MykelrSukhjinder MD Unavailable Unavailable Dille, E Anne DDS Unavailable Unavailable Dille, E Anne DDS Unavailable Unavailable Dille, E Anne DDS Unavailable Unavailable Dille, E Anne DDS Unavailable Unavailable XANDER, M TAYLOR PA Unavailable Unavailable XANDER, M TAYLOR PA Unavailable Unavailable XANDER, M TAYLOR PA Unavailable Unavailable XANDER, M TAYLOR PA Unavailable Unavailable XANDER, M TAYLOR PA Unavailable Unavailable XANDER, M TAYLOR PA Unavailable Unavailable XANDER, M TAYLOR PA Unavailable Unavailable XANDER, M TAYLOR PA Unavailable Unavailable XANDER, M TAYLOR PA Unavailable Unavailable XANDER, M TAYLOR PA Unavailable Unavailable XANDER, M TAYLOR PA Unavailable Unavailable XANDER, M TAYLOR PA Unavailable Unavailable XANDER, M TAYLOR PA Unavailable Unavailable XANDER, M TAYLOR PA Unavailable Unavailable XANDER, M TAYLOR PA Unavailable Unavailable XANDER, M TAYLOR PA Unavailable Unavailable XANDER, M TAYLOR PA Unavailable Unavailable XANDER, M TAYLOR PA Unavailable Unavailable XANDER, M TAYLOR PA Unavailable Unavailable XANDER, M TAYLOR PA Unavailable Unavailable XANDER, M TAYLOR PA Unavailable Unavailable XANDER, M TAYLOR PA Unavailable Unavailable XANDER, M TAYLOR PA Unavailable Unavailable XANDER, M TAYLOR PA Unavailable Unavailable White, M Aracelis MD Unavailable Unavailable White, M Aracelis MD Unavailable Unavailable White, M Aracelis MD Unavailable Unavailable White, M Aracelis MD Unavailable Unavailable White, M Aracelis MD Unavailable Unavailable White, M Aracelis MD Unavailable Unavailable White, M Aracelis MD Unavailable Unavailable White, M Aracelis MD Unavailable Unavailable White, M Aracelis MD Unavailable Unavailable White, M Aracelis MD Unavailable Unavailable White, M Aracelis MD Unavailable Unavailable White, M Aracelis MD Unavailable Unavailable White, M Aracelis MD Unavailable Unavailable White, M Aracelis MD Unavailable Unavailable White, M Aracelis MD Unavailable Unavailable White, M Aracelis MD Unavailable Unavailable White, M Aracelis MD Unavailable Unavailable White, M Aracelis MD Unavailable Unavailable White, M Aracelis MD Unavailable Unavailable White, M Aracelis MD Unavailable Unavailable Felipe Dale MD Unavailable Unavailable Felipe Dale MD Unavailable Unavailable Felipe Dale MD Unavailable Unavailable Felipe Dale MD Unavailable Unavailable Felipe Dale MD Unavailable Unavailable Felipe Dale MD Unavailable Unavailable Felipe Dale MD Unavailable Unavailable Felipe Dale MD Unavailable Unavailable XANDER, M TAYLOR PA Unavailable Unavailable XANDER, M TAYLOR PA Unavailable Unavailable XANDER, M TAYLOR PA Unavailable Unavailable XANDER, M TAYLOR PA Unavailable Unavailable XANDER, M TAYLOR PA Unavailable Unavailable XANDER, M TAYLOR PA Unavailable Unavailable XANDER, M TAYLOR PA Unavailable Unavailable XANDER, M TAYLOR PA Unavailable Unavailable XANDER, M TAYLOR PA Unavailable Unavailable XANDER, M TAYLOR PA Unavailable Unavailable XANDER, M TAYLOR PA Unavailable Unavailable XANDER, M TAYLOR PA Unavailable Unavailable XANDER, M TAYLOR PA Unavailable Unavailable XANDER, M TAYLOR PA Unavailable Unavailable XANDER, M TAYLOR PA Unavailable Unavailable XANDER, M TAYLOR PA Unavailable Unavailable XANDER, M TAYLOR PA Unavailable Unavailable XANDER, M TAYLOR PA Unavailable Unavailable XANDER, Eduin VAZQUEZ PA Unavailable Unavailable XANDER, Eduin VAZQUEZ PA Unavailable Unavailable XANDER, Eduin VAZQUEZ PA Unavailable Unavailable XANDER, Eduin VAZQUEZ PA Unavailable Unavailable XANDER, Eduin VAZQUEZ PA Unavailable Unavailable XANDER, Eduin VAZQUEZ PA Unavailable Unavailable Re-disclosure Warning The records that you are about to access may contain information from federally-assisted alcohol or drug abuse programs. If such information is present, then the following federally mandated warning applies: This information has been disclosed to you from records protected by federal confidentiality rules (42 CFR part 2). The federal rules prohibit you from making any further disclosure of this information unless further disclosure is expressly permitted by the written consent of the person to whom it pertains or as otherwise permitted by 42 CFR part 2. A general authorization for the release of medical or other information is NOT sufficient for this purpose. The Federal rules restrict any use of the information to criminally investigate or prosecute any alcohol or drug abuse patient.The records that you are about to access may contain highly sensitive health information, the redisclosure of which is protected by Article 27-F of the [facility] Public Health law. If you continue you may have access to information: Regarding HIV / AIDS; Provided by facilities licensed or operated by the [facility] Office of Mental Health; or Provided by the [facility] Office for People With Developmental Disabilities. If such information is present, then the following [facility] mandated warning applies: This information has been disclosed to you from confidential records which are protected by state law. State law prohibits you from making any further disclosure of this information without the specific written consent of the person to whom it pertains, or as otherwise permitted by law. Any unauthorized further disclosure in violation of state law may result in a fine or residential sentence or both. A general authorization for the release of medical or other information is NOT sufficient authorization for further disc losure. Family History Family Member Name Family Member Gender Family Member Status Date o f Status Description Data Source(s) Unknown Unknown Problem [facility] ([facility]) Encounters Encounter Providers Location Date Indications Data Source(s ) Outpatient Attender: OSMANY IBANEZ . 11/11/2020 12:00: 00 AM [facility] Outpatient Attender: OSMANY IBANEZ . 11/11/2020 12:00: 00 AM [facility] [place] [address] [facility] [address] 10/06/2020 12:00:00 AM EST eCW1 ([facility]) [place] [address] [facility] [address] 10/05/2020 12:00:00 AM EST eCW1 ([facility]) (TCM) Transition of Care Visit [address] [place] [address] 10/05/2020 12:00:00 AM EST eCW1 ([facility]) Unknown [address] [facility] [place] [address] 09/29/2020 12:00:00 AM EST eCW1 ([facility]) Outpatient [address] [facility] [place] [address] 09/07/2020 12:00:00 AM EST eCW1 ([facility]) Unknown [address] [facility] [address] 09/07/2020 12:00:00 AM EST eCW1 ([facility]) Unknown [address] [facility] [place] [address] 08/14/2020 12:00:00 AM EST eCW1 ([facility]) Outpatient Attender: OSMANY BIANEZ .Referrer: Eduin Haq [id number] 08/05/2020 12:00:00 AM EST - 08/05/2020 02:22:15 PM [facility] Outpatient Attender: OSMANY Haq [id number] 12:00:00 AM EST - 07/29/2020 03:37:01 PM EST Gastrojejunal ulcer, unspecified as acut e or chronic, without hemorrhage or perforation [facility] Gastrojejunal ulcer, unspecified as acut e or chronic, without hemorrhage or perforation Unknown [address] [facility] [place] [address] 07/21/2020 12:00:00 AM EST eCW1 ([facility]) Outpatient Attender: Anne Giordano DDS [facility] 07/13/2020 04:06:00 P [facility] Outpatient Attender: Anne Giordano DDS BONI 07/13/2020 02:42:00 P [facility] Unknown [address] [facility] [address] 07/07/2020 12:00:00 AM EDT eCW1 ([facility]) Outpatient Attender: Anne Giordano CINTHYARoselia BONI 06/05/2020 08:01:22 P M [facility] Outpatient Attender: OSMANY Haq [id number] 05/13/2020 12:00:00 AM EDT Gastrojejunal ulcer, unspecified as acute or chronic, without hemorrhage or perforation [facility] Gastrojejunal ulcer, unspecified as acut e or chronic, without hemorrhage or perforation Outpatient Attender: Anne Giordano MIROSLAVA WATSON 05/01/2020 04:22:01 P M [facility] Outpatient Attender: Anne Giordano MIROSLAVA PLATA 04/30/2020 01:41:01 P [facility] Outpatient Attender: Anne Giordano MIROSLAVA PLATA 04/29/2020 11:52:01 A [facility] Outpatient Attender: OSMANY Haq 04/29/2020 12:00: 00 AM [facility] Outpatient Attender: Anne Giordano CINTHYARoselia WALTER 04/24/2020 08:01:21 P [facility] [place] [address] [facility] [address] 04/01/2020 12:00:00 AM EDT eCW1 ([facility]) [place] [address] [facility] [address] 04/01/2020 12:00:00 AM EDT eCW1 ([facility]) Outpatient Attender: OSMANY Haq [id number] 03/27/2020 08:40:39 AM [facility] Outpatient Attender: Maryann Mckeon MDReferrer: Maryann chow MD 03/25/2020 12:00:00 AM [facility] Outpatient Attender: Maryann Mckeon MDReferrer: Maryann chow MD 03/25/2020 12:00:00 AM EDT [facility] Inpatient Attender: Maryann Mckeon MDAt tender: Felipe Chito MDAttender: Evaristo Tommyekwu MDAttender: Aracelis Wright MDAdmitter: RASHAD ANDERSON MDReferrer: Aracelis Wright MD [id number] 03/20/2020 12:00:00 AM EDT - 03/27/2020 03:17:00 PM EDT Essential (primary) hypertension [facility] Essential (primary) hypertension Patient discharged. Outpatient Attender: Anne WATSON 03/12/2020 02:04:00 P M EDT [facility] Outpatient Attender: Anne WATSON 03/02/2020 08:47:00 A M EDT [facility] Outpatient Attender: Anne WATSON 02/24/2020 12:22:02 P M EDT [address], [facility] [address] 02/13/2020 12:00:00 AM EDT eCW1 ([facility]) Unknown [address] [place] [address], [place] [address] 02/12/2020 12:00:00 AM EDT eCW1 ([facility]) [address] [address] 01/22/2020 12:00:00 AM EDT eCW1 ([facility]) Outpatient Attender: Anne WATSON 12/24/2019 09:56:00 [facility] [address] [place] [address] 12/09/2019 12:00:00 AM EDT eCW1 ([facility]) [address] [address] 12/06/2019 12:00:00 AM EDT eCW1 ([facility]) Outpatient Attender: Anne WATSON 11/26/2019 02:55:00 P M [facility] Outpatient Attender: Anne Giordano CINTHYARoselia BONIC 11/26/2019 01:16:01 P M [facility] Outpatient Attender: Anne Giordano MIROSLAVA PLATAC 11/20/2019 11:01:01 A M [facility] Outpatient Attender: Anne Giordano MIROSLAVA PLATAC 11/20/2019 10:36:00 A M [facility] Outpatient Attender: Anne Giordano MIROSLAVA PLATA 11/20/2019 10:36:00 A M [facility] [address] [facility] [address] 11/14/2019 12:00:00 AM EST eCW1 ([facility]) [facility] [address] [facility] [address] 11/13/2019 12:00:00 AM EST eCW1 ([facility]) Outpatient Referrer: TAYLOR FERGUSON 11/12/2019 03:18:00 PM EST [facility] [address] [facility] [address] 11/12/2019 12:00:00 AM EST eCW1 ([facility]) Outpatient Attender: Anne Giordano MIROSLAVA PLATA 11/05/2019 10:42:01 A [facility] Outpatient Attender: Anne Karmenamna MIROSLAVA PLATA 11/05/2019 10:03:01 A [facility] Outpatient Attender: Anne Giordano MIROSLAVA PLATA 11/01/2019 08:18:00 A M [facility] [address] [facility] [address] 11/01/2019 12:00:00 AM EST eCW1 ([facility]) Outpatient Attender: Anne Karmenamna MIROSLAVA PLATA 10/31/2019 10:13:00 A M [facility] Outpatient Attender: Anne Karmenamna MIROSLAVA PLATA 10/25/2019 08:02:20 P M [facility] [address] [facility] [address] 10/24/2019 12:00:00 AM EST eCW1 ([facility]) Outpatient Attender: TAYLOR FERGUSON Physical Therapy 10/12 01:45:00 PM EST MEDENT ([facility]) [facility] [address] [facility] [address] 10/15/2019 12:00:00 AM EST eCW1 ([facility]) Outpatient Attender: Anne PLATAC 10/14/2019 05:11:00 P Outpatient Attender: Anne PLATAC 10/14/2019 05:10:00 P [facility] [address] [place] [address], [place] [address] 10/14/2019 12:00:00 AM EST eCW1 ([facility]) Outpatient Attender: Anne WATSON 10/11/2019 02:53:01 P Outpatient Attender: Anne PLATAC 10/08/2019 10:45:01 A [facility] [address] [facility] [address] 10/07/2019 12:00:00 AM EST eCW1 ([facility]) Outpatient Attender: Anne PLATAC 10/04/2019 10:34:01 A Outpatient Attender: Anne PLATAC 10/04/2019 10:28:00 A Outpatient Attender: nAne PLATAC 10/04/2019 10:27:00 A Outpatient Attender: Anne PLATAC 10/04/2019 09:35:16 A Outpatient Attender: Anne PLATAC 10/04/2019 09:29:42 A [facility] [address] [facility] [address] 10/04/2019 12:00:00 AM EST eCW1 ([facility]) [facility] 10/02/2019 09:01:13 PM EST [facility] Out[facility] 10/02/2019 12:17:01 PM EST [facility] [address] [place] [address], [place] [address] 10/02/2019 12:00:00 AM EST eCW1 ([facility]) [address] [address] 09/20/2019 12:00:00 AM EST eCW1 ([facility]) [address] [address] 09/18/2019 12:00:00 AM EST eCW1 ([facility]) [address] [address] 09/16/2019 12:00:00 AM EST eCW1 ([facility]) [address] [address] 08/23/2019 12:00:00 AM EST eCW1 ([facility]) Inpatient Attender: Karen Vickers nder: KAREN RODRIGUEZ MDAdmitter: KAREN RODRIGUEZ MD [facility] 07/01/2019 11:27:00 AM EDT - 07/29/2019 12:14:00 PM EST PSYCHOACTIVE SUBSTANCE DEPENDENCE [facility] PSYCHOACTIVE SUBSTANCE DEPENDENCE Patient discharged. Medications Medication Brand Name Start Date Product Form Dose Route Admi nistrative Instructions Pharmacy Instructions Status Indications Reaction Description Data Source(s) 3 ML Insulin Glargine 100 UNT/ML Pen Inj shruthi [Lantus] Lantus SoloStar 100 UNIT/ML Lantus SoloStar 100 UNIT/ML 10/06/2020 12:00:00 AM EST active Lantus SoloStar 100 UNIT/ML eCW1 ([facility]) 3 ML Insulin Glargine 100 UNT/ML Pen Inj shruthi [Lantus] Lantus SoloStar 100 UNIT/ML Lantus SoloStar 100 UNIT/ML 10/06/2020 12:00:00 AM EST active Lantus SoloStar 100 UNIT/ML eCW1 ([facility]) 3 ML Insulin Glargine 100 UNT/ML Pen Inj shruthi [Lantus] Lantus SoloStar 100 UNIT/ML Lantus SoloStar 100 UNIT/ML 10/06/2020 12:00:00 AM EST active Lantus SoloStar 100 UNIT/ML eCW1 ([facility]) Tamsulosin hydrochloride 0.4 MG Oral Capsule Tamsulosi n HCl 0.4 MG Tamsulosin HCl 0.4 MG 10/05/2020 12:00:00 AM EST 1.0 {capsule} active Tamsulosin HCl 0.4 MG eCW1 ([facility]) Thiamine HCl 100 MG Thiamine HCl 100 MG 10/05/2020 12:00:00 AM EST 1.0 {tablet} active Thiamine HCl 100 MG eCW 1 ([facility]) Sulfamethoxazole 800 MG / Trimethoprim 1 60 MG Oral Tablet [Bactrim] Bactrim DS 800-160 MG Bactrim DS 800-160 MG 10/05/2020 12:00:00 AM EST 1.0 {table t} active Bactrim DS 800-160 MG eCW1 ( [facility]) Sulfamethoxazole 800 MG / Trimethoprim 1 60 MG Oral Tablet [Bactrim] Bactrim DS 800-160 MG Bactrim DS 800-160 MG 10/05/2020 12:00:00 AM EST 1.0 {table t} active Bactrim DS 800-160 MG eCW1 ( [facility]) Sulfamethoxazole 800 MG / Trimethoprim 1 60 MG Oral Tablet [Bactrim] Bactrim DS 800-160 MG Bactrim DS 800-160 MG 10/05/2020 12:00:00 AM EST 1.0 {table t} active Bactrim DS 800-160 MG eCW1 ( [facility]) Tamsulosin hydrochloride 0.4 MG Oral Capsule Tamsulosi n HCl 0.4 MG Tamsulosin HCl 0.4 MG 10/05/2020 12:00:00 AM EST 1.0 {capsule} active Tamsulosin HCl 0.4 MG eCW1 ([facility]) Tamsulosin hydrochloride 0.4 MG Oral Capsule Tamsulosi n HCl 0.4 MG Tamsulosin HCl 0.4 MG 10/05/2020 12:00:00 AM EST 1.0 {capsule} active Tamsulosin HCl 0.4 MG eCW1 ([facility]) Thiamine HCl 100 MG Thiamine HCl 100 MG 10/05/2020 12:00:00 AM EST 1.0 {tablet} active Thiamine HCl 100 MG eCW 1 ([facility]) Thiamine HCl 100 MG Thiamine HCl 100 MG 10/05/2020 12:00:00 AM EST 1.0 {tablet} active Thiamine HCl 100 MG eCW 1 ([facility]) ferrous sulfate 325 MG Oral Tablet Ferrous Sulfate 325 (65 Fe) MG Ferrous Sulfate 325 (65 Fe) MG 09/14/2020 12:00:00 AM EST 2.0 {tablets} active Ferrous Sulfate 325 (65 Fe) MG eCW1 ([facility]) ferrous sulfate 325 MG Oral Tablet Ferrous Sulfate 325 (65 Fe) MG Ferrous Sulfate 325 (65 Fe) MG 09/14/2020 12:00:00 AM EST 2.0 {tablets} active Ferrous Sulfate 325 (65 Fe) MG eCW1 ([facility]) ferrous sulfate 325 MG Oral Tablet Ferrous Sulfate 325 (65 Fe) MG Ferrous Sulfate 325 (65 Fe) MG 09/14/2020 12:00:00 AM EST 2.0 {tablets} active Ferrous Sulfate 325 (65 Fe) MG eCW1 ([facility]) ferrous sulfate 325 MG Oral Tablet Ferrous Sulfate 325 (65 Fe) MG Ferrous Sulfate 325 (65 Fe) MG 09/14/2020 12:00:00 AM EST 2.0 {tablets} active Ferrous Sulfate 325 (65 Fe) MG eCW1 ([facility]) ferrous sulfate 325 MG Oral Tablet Ferrous Sulfate 325 (65 Fe) MG Ferrous Sulfate 325 (65 Fe) MG 09/14/2020 12:00:00 AM EST 2.0 {tablets} active Ferrous Sulfate 325 (65 Fe) MG eCW1 ([facility]) FreeStyle Lite - FreeStyle Lite - 09/07/2020 12:00:00 AM EST active FreeStyle Lite - eCW1 ([facility]) FreeStyle Lite - FreeStyle Lite - 09/07/2020 12:00:00 AM EST active FreeStyle Lite - eCW1 ([facility]) FreeStyle Lite - FreeStyle Lite - 09/07/2020 12:00:00 AM EST active FreeStyle Lite - eCW1 ([facility]) FreeStyle Lancets - FreeStyle Lancets - 09/07/2020 12:00:00 AM EST active FreeStyle Lancets - eCW1 ([facility]) Sucralfate 100 MG/ML Oral Suspension Sucralfate 1 GM/10ML Lawler cralfate 1 GM/10ML 09/07/2020 12:00:00 AM EST 10.0 {ml_on_an_empty_stomach} active Sucralfate 1 GM/10ML eCW1 ([facility]) FreeStyle Lite - FreeStyle Lite - 09/07/2020 12:00:00 AM EST active FreeStyle Lite - eCW1 ([facility]) Omeprazole 40 MG Delayed Release Oral Capsule Omeprazole 40 MG 09/07/2020 12:00:00 AM EST active Omeprazo le 40 MG eCW1 ([facility]) Omeprazole 40 MG Delayed Release Oral Capsule Omeprazole 40 MG 09/07/2020 12:00:00 AM EST active Omeprazo le 40 MG eCW1 ([facility]) Sucralfate 100 MG/ML Oral Suspension Sucralfate 1 GM/10ML Lawler cralfate 1 GM/10ML 09/07/2020 12:00:00 AM EST 10.0 {ml_on_an_empty_stomach} active Sucralfate 1 GM/10ML eCW1 ([facility]) Blood Glucose Test Strip - UNK 09/07/2020 12:00:00 AM EST active Blood Glucose Test Strip - eCW1 ([facility]) FreeStyle Lancets - FreeStyle Lancets - 09/07/2020 12:00:00 AM EST active FreeStyle Lancets - eCW1 ([facility]) Omeprazole 40 MG Delayed Release Oral Capsule Omeprazole 40 MG 09/07/2020 12:00:00 AM EST active Omeprazo le 40 MG eCW1 ([facility]) FreeStyle Lancets - FreeStyle Lancets - 09/07/2020 12:00:00 AM EST active FreeStyle Lancets - eCW1 ([facility]) Blood Glucose Test Strip - UNK 09/07/2020 12:00:00 AM EST active Blood Glucose Test Strip - eCW1 ([facility]) Blood Glucose Test Strip - UNK 09/07/2020 12:00:00 AM EST active Blood Glucose Test Strip - eCW1 ([facility]) FreeStyle Lite - FreeStyle Lite - 09/07/2020 12:00:00 AM EST active FreeStyle Lite - eCW1 ([facility]) Blood Glucose Test Strip - UNK 09/07/2020 12:00:00 AM EST active Blood Glucose Test Strip - eCW1 ([facility]) Blood Glucose Test Strip - UNK 09/07/2020 12:00:00 AM EST active Blood Glucose Test Strip - eCW1 ([facility]) Omeprazole 40 MG Delayed Release Oral Capsule Omeprazole 40 MG 09/07/2020 12:00:00 AM EST active Omeprazo le 40 MG eCW1 ([facility]) Sucralfate 100 MG/ML Oral Suspension Sucralfate 1 GM/10ML Lawler cralfate 1 GM/10ML 09/07/2020 12:00:00 AM EST 10.0 {ml_on_an_empty_stomach} active Sucralfate 1 GM/10ML eCW1 ([facility]) Omeprazole 40 MG Delayed Release Oral Capsule Omeprazole 40 MG 09/07/2020 12:00:00 AM EST active Omeprazo le 40 MG eCW1 ([facility]) FreeStyle Lancets - FreeStyle Lancets - 09/07/2020 12:00:00 AM EST active FreeStyle Lancets - eCW1 ([facility]) FreeStyle Lite - FreeStyle Lite - 09/07/2020 12:00:00 AM EST active FreeStyle Lite - eCW1 ([facility]) FreeStyle Lancets - FreeStyle Lancets - 09/07/2020 12:00:00 AM EST active FreeStyle Lancets - eCW1 ([facility]) Omeprazole 40 MG Delayed Release Oral Capsule Omeprazole 40 MG 09/07/2020 12:00:00 AM EST active Omeprazo le 40 MG eCW1 ([facility]) Blood Glucose Test Strip - UNK 09/07/2020 12:00:00 AM EST active Blood Glucose Test Strip - eCW1 ([facility]) FreeStyle Lancets - FreeStyle Lancets - 09/07/2020 12:00:00 AM EST active FreeStyle Lancets - eCW1 ([facility]) Sucralfate 100 MG/ML Oral Suspension Suc ralfate 1 GM/10ML Oral Suspension (Carafate) Sucralfate 1 GM/10ML Oral Suspension (Carafate) 2019 12:00:00 AM EDT 1 g Oral active Marginal ulcer T rafa 10 mLs by mouth Four times daily [facility] Marginal ulcer pantoprazole 40 MG Delayed Release Oral Tablet Pantoprazole Sodium 40 MG Oral Tablet Delayed Release (PROTONIX) Pantoprazole Sodium 40 MG Oral Tablet De layed Release (PROTONIX) 05/13/2020 12:00:00 AM EDT 40 mg Oral active Marginal ulcer Take 1 tablet by mouth Two Times Daily [facility] Marginal ulcer Folic Acid 1 MG Oral Tablet Folic Acid 1 MG Oral Table t (FOLVITE) Folic Acid 1 MG Oral Tablet (FOLVITE) 03/28/2020 12:00:00 AM EDT 1 mg Oral active Take 1 tablet by mouth daily [facility] Amlodipine 10 MG Oral Tablet amLODIPine Besylate 10 MG Oral Tablet (NORVASC) amLODIPine Besylate 10 MG Oral Tablet (NORVASC) 03/28/2020 12:00:00 AM EDT 10 mg Oral active Take 1 tablet by mouth d [facility] Thiamine 100 MG Oral Tablet Thiamine HCl 100 MG Oral T ablet (B-1) Thiamine HCl 100 MG Oral Tablet (B-1) 03/28/2020 12:00:00 AM EDT 100 mg Oral active Take 1 tablet [facility] mouth [facility] Nicotine 0.875 MG/HR Transdermal P atch Nicotine 21 MG/24HR Transdermal Patch 24 Hour (NICODERM CQ) Nicotine 21 MG/24HR Transdermal Patch 24 Hour (NICODERM CQ) 03/28/2020 12:00:00 AM EDT 1 {patch} Transdermal active Place 1 patch onto the skin daily [facility] atorvastatin 20 MG Oral Tablet Atorvastatin Calcium 20 MG Oral Tablet (LIPITOR) Atorvastatin Calcium 20 MG Oral Tablet (LIPITOR) 03/28/2020 12:00:00 AM EDT 20 mg Oral active Take 1 tablet by mouth d [facility] Tab-A-Martin/Beta Carotene Oral Tablet [id number] 03/28/2020 12:00: 00 AM EDT 1 {tbl} Oral active Take 1 tablet by mouth d [facility] Lisinopril 40 MG Oral Tablet Lisinopril 40 MG Oral Tab let (ZESTRIL) Lisinopril 40 MG Oral Tablet (ZESTRIL) 03/28/2020 12:00:00 AM EDT 40 mg Oral active Take 1 tablet by mouth daily [facility] Hydralazine Hydrochloride 20 MG/ML Injec table Solution hydrALAZINE (APRESOLINE) injection 10 mg hydrALAZINE (APRESOLINE) injection 10 mg 03/27/2020 09 :00:00 AM EDT 10 mg Intravenous active 10 m g, Intravenous, Every 6 hours, First dose (after last modification) on Mon03/27/20 at 0900, For 11 doses
Dilute in 25-50 ml normal saline. Administer over 30 minutes.
Hold if SBP < 160
[facility] Medication administered onsite Naloxone HCl 4 MG/0.1ML Nasal Liquid (Narcan) [id number] 12:00:00 AM EDT 4 mg Nasal active 1 spray by Nasal route once for 1 dose [facility] Sucralfate 1000 MG Oral Tablet Sucralfate 1 GM Oral Ta blet (CARAFATE) Sucralfate 1 GM Oral Tablet (CARAFATE) 03/27/2020 12:00:00 AM EDT 1 g Oral active Take 1 tablet by mouth Four times daily [facility] pantoprazole 40 MG Delayed Release Oral Tablet Pantoprazole Sodium 40 MG Oral Tablet Delayed Release (PROTONIX) Pantoprazole Sodium 40 MG Oral Tablet De layed Release (PROTONIX) 03/27/2020 12:00:00 AM EDT 40 mg Oral aborted Take 1 tablet by mouth Two Times Daily [facility] carvedilol 25 MG Oral Tablet Carvedilol 25 MG Oral Tab let (COREG) Carvedilol 25 MG Oral Tablet (COREG) 03/27/2020 12:00:00 AM EDT 25 mg Oral active Take 1 tablet by mouth Two times daily with meals [facility] insulin lispro (HumaLOG) injection LOW DOSE EATING INS ULIN patients 1-8 Units [id number] 03/26/2020 06:00:00 PM EDT Subcutaneous active 1-8 Units, Subcutaneous, Three Times Daily-With Meals, First dose on Samara 03/26/20 at 1800, For 30 days
Nursing MUST open the 'SQ Insulin Dosing Charts' Sidebar Report, or, the Patient Summary or Summary Report within the ED.
[facility] Medication administered onsite iohexol (OMNIPAQUE) 300 MG/ML contrast injection 100 mL [id number] 03/26/2020 03:15:00 PM EDT 100 mL Given by IV completed 100 mL, Given by IV, 1 TIME IMAGING, Samara 03/26/20 at 1515, For 1 dose [facility] Medication administered onsite barium (VOLUMEN) 0.1 % suspension 500 mL [id number] 03/26/2020 11 :15:00 AM EDT 500 mL Oral completed 500 mL, Or al, 1 TIME IMAGING, Samara 03/26/20 at 1115, For 1 dose [facility] Medication administered onsite potassium chloride (K-DUR) dissolvable tablet 40 mEq [id number] 38-90 03/26/2020 07:45:00 AM EDT 40 meq Oral completed 40 mEq, Oral, Once, Samara 03/26/20 at 0745, For 1 dose
May be dissolved in water for patients with a G-Tube or unable to swallow. If concern for clogging G-Tube, may contact Pharmacy to switch formulation to a powder packet.
[facility] Medication administered onsite Acetaminophen 325 MG Oral Tablet acetaminophen (TYLENO L) tablet 650 mg acetaminophen (TYLENOL) tablet 650 mg 03/25/2020 10:45:00 PM EDT 65 0 mg Oral completed 650 mg, Oral, O nce, 03/25/20 at 2245, For 1 dose
Maximum daily dose of acetaminophen is 3,000 mg from all sources in 24 hours.
[facility] Medication administered onsite pantoprazole 40 MG Delayed Release Oral Tablet pantoprazole (PROTONIX) EC tablet 40 mg pantoprazole (PROTONIX) EC tablet 40 mg 03/25/2020 09:00:00 PM E DT 40 mg Oral active 40 mg, Ora l, 2 Times Daily, First dose on Mon03/25/20 at 2100, For 10 days
Do not crush or chew
[facility] Medication administered onsite Sucralfate 1000 MG Oral Tablet sucralfate (CARAFATE) t ablet 1 g sucralfate (CARAFATE) tablet 1 g 03/25/2020 05:00:00 PM EDT 1 g Oral active 1 g, Oral, Four Times Daily Standard, First dose on Mon03/25/20 at 1700, For 30 days [facility] Medication administered onsite atorvastatin 20 MG Oral Tablet atorvastatin (LIPITOR) tablet 20 mg atorvastatin (LIPITOR) tablet 20 mg 03/25/2020 09:00:00 AM EDT 20 mg Oral active 20 mg, Oral, Daily Standard, First dose (after last modification) on Mon03/25/20 at 0900, For 7 days
Hazardous drug. Follow precautions. Dispose of properly.
[facility] Medication administered onsite potassium chloride (K-DUR) dissolvable tablet 40 mEq [id number] 03/25/2020 06:00:00 AM EDT 40 meq Oral completed 40 mEq, Oral, Once, Mon03/25/20 at 0600, For 1 dose
May be dissolved in water for patients with a G-Tube or unable to swallow. If concern for clogging G-Tube, may contact Pharmacy to switch formulation to a powder packet.
[facility] Medication administered onsite POLYETHYLENE GLYCOL 3350 59 MG/ML / Pota ssium Chloride 0.01 MEQ/ML / Sodium Bicarbonate 0.02 MEQ/ML / Sodium Chloride 0.025 MEQ/ML / sodium sulfate 0.04 MEQ/ML Oral Solution polyethylene glycol (GoLYTELY,NuLYTELY) suspension 2,000 mL polyethylene glycol (GoLYTELY,NuLYTELY) suspension 2,0 00 mL 03/25/2020 04:00:00 AM EDT 2000 mL Oral completed 2,000 mL, Oral, Once, Mon03/25/20 at 0400, For 1 dose [facility] Medication administered onsite POLYETHYLENE GLYCOL 3350 59 MG/ML / Pota ssium Chloride 0.01 MEQ/ML / Sodium Bicarbonate 0.02 MEQ/ML / Sodium Chloride 0.025 MEQ/ML / sodium sulfate 0.04 MEQ/ML Oral Solution polyethylene glycol (GoLYTELY,NuLYTELY) suspension 2,000 mL polyethylene glycol (GoLYTELY,NuLYTELY) suspension 2,0 00 mL 03/24/2020 09:00:00 PM EDT 2000 mL Oral completed 2,000 mL, Oral, Once, Mon03/24/20 at 2100, For 1 dose [facility] Medication administered onsite gabapentin 300 MG Oral Capsule gabapentin (NEURONTIN) capsule 600 mg gabapentin (NEURONTIN) capsule 600 mg 03/24/2020 05:00:00 PM EDT 600 mg Oral active 600 mg, Oral, Three Times D aily Standard, First dose (after last modification) on Mon03/24/20 at 1700, For 5 days [facility] Medication administered onsite Bisacodyl 5 MG Delayed Release Oral Tablet bisacodyl ( DULCOLAX) EC tablet 20 mg bisacodyl (DULCOLAX) EC tablet 20 mg 03/24/2020 04:00:00 PM EDT 20 mg Oral completed 20 mg, Oral, Onc e, Mon03/24/20 at 1600, For 1 dose
Do not crush or chew
[facility] Medication administered onsite Lisinopril 20 MG Oral Tablet lisinopril (ZESTRIL) tabl et 40 mg lisinopril (ZESTRIL) tablet 40 mg 03/24/2020 09:00:00 AM EDT 40 mg Oral active 40 mg, Oral, Daily Standard, First dose on Mon03/24/20 at 0900, For 30 days [facility] Medication administered onsite Hydralazine Hydrochloride 20 MG/ML Injec table Solution hydrALAZINE (APRESOLINE) injection 10 mg hydrALAZINE (APRESOLINE) injection 10 mg 03/24/2020 09 :00:00 AM EDT 10 mg Intravenous aborted 10 m g, Intravenous, Three Times Daily Standard, First dose on Mon03/24/20 at 0900, For 5 days
Dilute in 25-50 ml normal saline. Administer over 30 minutes.
[facility] Medication administered onsite Hydralazine Hydrochloride 20 MG/ML Injec table Solution hydrALAZINE (APRESOLINE) injection 10 mg hydrALAZINE (APRESOLINE) injection 10 mg 03/24/2020 09 :00:00 AM EDT 10 mg Intravenous aborted 10 m g, Intravenous, Every 6 hours, First dose (after last reorder) on Mon03/24/20 at 0900, For 2 days
Dilute in 25-50 ml normal saline. Administer over 30 minutes.
Hold if SBP < 160
[facility] Medication administered onsite Amlodipine 5 MG Oral Tablet amlodipine (NORVASC) table t 10 mg amlodipine (NORVASC) tablet 10 mg 03/24/2020 09:00:00 AM EDT 10 mg Oral active 10 mg, Oral, Daily Standard, First dose on Mon03/24/20 at 0900, For 30 days
Check vital signs before administering
[facility] Medication administered onsite potassium chloride (K-DUR) dissolvable tablet 40 mEq 27421-8 38-90 03/24/2020 08:00:00 AM EDT 40 meq Oral completed 40 mEq, Oral, Once, Mon03/24/20 at 0800, For 1 dose
May be dissolved in water for patients with a G-Tube or unable to swallow. If concern for clogging G-Tube, may contact Pharmacy to switch formulation to a powder packet.
[facility] Medication administered onsite Potassium Chloride 0.1 MEQ/ML Injectable Solution potassium chloride 10 mEq in 100 mL IVPB (premix) potassium chloride 10 mEq in 100 mL IVPB (premix) 03/24/2020 05:00:00 AM EDT 10 meq Intravenous aborted 10 mEq, Intravenous, Administer over 60 Minutes, Every 1 hour, First dose on Mon03/24/20 at 0500, For 4 doses [facility] Medication administered onsite potassium chloride (K-DUR) dissolvable tablet 40 mEq [id number] 38-90 03/24/2020 04:45:00 AM EDT 40 meq Oral completed 40 mEq, Oral, Once, 03/24/20 at 0445, For 1 dose
May be dissolved in water for patients with a G-Tube or unable to swallow. If concern for clogging G-Tube, may contact Pharmacy to switch formulation to a powder packet.
[facility] Medication administered onsite Insulin Lispro 100 UNT/ML Injectable Damaris ution insulin lispro (HumaLOG) injection 4 Units insulin lispro (HumaLOG) injection 4 Units 03/23/2020 10:30: 00 PM EDT 4 U Subcutaneous completed 4 Units, Subcutaneous, Once, Mon03/23/20 at 2230, For 1 dose
If patient blood glucose is less than 70 mg/dL - follow the hypoglycemia procedure CM H-09.If patient blood glucose is more than 400 mg/dL - notify the provider.
[facility] Medication administered onsite Lisinopril 10 MG Oral Tablet lisinopril (ZESTRIL) tabl et 20 mg lisinopril (ZESTRIL) tablet 20 mg 03/23/2020 09:00:00 PM EDT 20 mg Oral completed 20 mg, Oral, 2 Times Daily, First dose ( after last modification) on Mon03/23/20 at 2100, For 1 dose
Check vital signs before administering
[facility] Medication administered onsite 24 HR Nicotine 0.875 MG/HR Transdermal P atch nicotine (NICODERM CQ) 21 MG/24HR 1 patch nicotine (NICODERM CQ) 21 MG/24HR 1 patch 03/23/2020 08:45:00 PM EDT 1 {patch} Transdermal active 1 patch, Transdermal, Administer over 24 Hours, Daily Standard, First dose on Mon03/23/20 at 2045, For 30 days [facility] Medication administered onsite Bisacodyl 5 MG Delayed Release Oral Tablet bisacodyl ( DULCOLAX) EC tablet 20 mg bisacodyl (DULCOLAX) EC tablet 20 mg 03/23/2020 04:00:00 PM EDT 20 mg Oral completed 20 mg, Oral, Onc e, Mon03/23/20 at 1600, For 1 dose
Do not crush or chew
[facility] Medication administered onsite Hydralazine Hydrochloride 20 MG/ML Injec table Solution hydrALAZINE (APRESOLINE) injection 10 mg hydrALAZINE (APRESOLINE) injection 10 mg 03/23/2020 03 :30:00 PM EDT 10 mg Intravenous completed 10 mg, Intravenous, Once, Mon03/23/20 at 1530, For 1 dose
Dilute in 25-50 ml normal saline. Administer over 30 minutes.
[facility] Medication administered onsite 1 ML Lorazepam 2 MG/ML Injection LORazepam (ATIVAN) in jection 2 mg LORazepam (ATIVAN) injection 2 mg 03/23/2020 03:30:00 PM EDT 2 mg Intraveno us completed 2 mg, Intravenous, Once, 03/11 at 1530, For 1 dose [facility] Medication administered onsite insulin lispro (HUMALOG) injection LOW D OSE CLEAR LIQUID INSULIN patients 1-8 Units [id number] 03/23/2020 11:30:00 AM EDT Subcutaneous aborted 1-8 Units, Subcutaneous, Before Meals - Three Times Daily, First dose on Mon03/23/20 at 1130, For 30 days
Nursing MUST open the 'SQ Insulin Dosing Charts' Sidebar Report, or, the Patient Summary or Summary Report within the ED.
[facility] Medication administered onsite pantoprazole 4 MG/ML Injectable Solution pantoprazole (PROTONIX) injection 40 mg pantoprazole (PROTONIX) injection 40 mg 03/23/2020 09:00:00 AM EDT 40 mg Intravenous aborted 40 mg, Intrav enous, Daily Standard, First dose on Mon03/23/20 at 0900, For 30 days [facility] Medication administered onsite 4 ML Labetalol hydrochloride 5 MG/ML [place] labetalol (TRANDATE) injection 10 mg labetalol (TRANDATE) injection 10 mg 03/23/2020 08:15:41 AM EDT 10 mg Intravenous aborted 10 mg, Intrav enous, Every 6 hours PRN, High Blood Pressure, systolic BP greater than 170, Starting Mon03/23/20 at 0815, For 2 days [facility] Medication administered onsite insulin lispro (HumaLOG) injection LOW DOSE EATING INS ULIN patients 1-8 Units [id number] 03/22/2020 06:00:00 PM EDT Subcutaneous aborted 1-8 Units, Subcutaneous, Three Times Daily-With Meals, First dose on 03/22/20 at 1800, For 30 days
Nursing MUST open the 'SQ Insulin Dosing Charts' Sidebar Report, or, the Patient Summary or Summary Report within the ED.
[facility] Medication administered onsite dextrose 50 % IV solution 25 mL [id number] 03/22/2020 03:36:45 PM E DT 25 mL Intravenous active 25 mL, Intrav enous, PRN, Other, blood glucose <55, Starting 03/22/20 at 1536, For 30 days
Not for midline administration.
[facility] Medication administered onsite Glucagon 1 MG Injection glucagon (human recombinant) ( GLUCAGEN) injection 1 mg glucagon (human recombinant) (GLUCAGEN) injection 1 mg 03/22/2020 03:36:45 PM EDT 1 mg Intramuscular active 1 mg, Intramuscular, PRN, for glucose <55 without IV access, Starting 03/22/20 at 1536, For 30 days [facility] Medication administered onsite Glucose 0.417 MG/MG Oral Gel glucose (GLUTOSE) 40 % or al gel 15 g glucose (GLUTOSE) 40 % oral gel 15 g 03/22/2020 03:36:45 PM EDT 15 g Oral active 15 g, Oral, PRN, Low blood s ugar, for gluose 55-69 mg/dl and able to take PO, Starting 03/22/20 at 1536, For 30 days [facility] Medication administered onsite Folic Acid 1 MG Oral Tablet folic acid (FOLVITE) table t 1 mg folic acid (FOLVITE) tablet 1 mg 03/22/2020 02:15:00 PM EDT 1 mg Oral active 1 mg, Oral, Daily Standard, First dose on 03/22/20 at 1415, For 30 days [facility] Medication administered onsite multivitamin tablet 1 tablet [id number] 03/22/2020 02:15:00 PM EDT 1 {tbl} Oral active 1 tablet, Oral , Daily Standard, First dose on 03/22/20 at 1415, For 30 days [facility] Medication administered onsite Thiamine 100 MG Oral Tablet thiamine (B-1) tablet 100 mg thiamine (B-1) tablet 100 mg 03/22/2020 02:15:00 PM EDT 100 mg Oral active 100 mg, Oral, Daily Standard, First dose on 03/22/20 at 1415, For 30 days [facility] Medication administered onsite Lorazepam 1 MG Oral Tablet LORazepam (ATIVAN) tablet 1 mg LORazepam (ATIVAN) tablet 1 mg 03/22/2020 02:10:13 PM EDT 1 mg Oral aborte d 1 mg, Oral, Every 4 hours PRN, Anxiety, Starting 03/22/20 at 1410, For 71 hours [facility] Medication administered onsite Naltrexone hydrochloride 50 MG Oral Tablet naltrexone (DEPADE) tablet 50 mg naltrexone (DEPADE) tablet 50 mg 03/22/2020 10:45:00 AM EDT 50 mg Oral active 50 mg, Oral, Daily Standard, First dose on 03/22/20 at 1045, For 30 days [facility] Medication administered onsite DULoxetine (CYMBALTA) DR capsule 90 mg 03/22/2020 10:45:00 AM EDT 90 mg Oral active 90 mg, Oral, D aily Standard, First dose on 03/22/20 at 1045, For 30 days
Do not crush or chew
[facility] Medication administered onsite Ceftriaxone 1000 MG Injection cefTRIAXone (ROCEPHIN) i nfusion 1 g (premix) cefTRIAXone (ROCEPHIN) infusion 1 g (premix) 03/21/2020 10:30:00 PM EDT 1 g Intravenous aborted 1 g, Intraven ous, at 100 mL/hr, Every 24 hours, First dose (after last modification) on 03/21/20 at 2230, For 4 doses
Discouraged Uses: Empiric treatment of post-surgical meningitis (ceftazidime preferred)
[facility] Medication administered onsite pantoprazole (PROTONIX) 0.4 mg/mL in sodium chloride 0.9 % 2 50 mL infusion 03/21/2020 09:30:00 PM EDT 8 mg/h Intravenous aborted 8 mg/hr (20 mL/hr), Intravenous, at 20 mL/hr, Continuous, Starting 03/21/20 at 2130, For 19 hours
Indication: Active GI bleed [facility] Medication administered onsite TC-99M labeled red blood cells (ULTRATAG) 03/21/2020 04:00 :00 PM EDT Intravenous completed Intravenous, Once, 03/21/20 at 1600, For 1 dose, Imaging Protocol [facility] Medication administered onsite pantoprazole (PROTONIX) 0.4 mg/mL in sodium chloride 0.9 % 2 50 mL infusion 03/21/2020 02:00:00 PM EDT 8 mg/h Intravenous aborted 8 mg/hr (20 mL/hr), Intravenous, at 20 mL/hr, Continuous, Starting 03/21/20 at 1400, For 30 days
Indication: Active GI bleed [facility] Medication administered onsite atorvastatin 20 MG Oral Tablet atorvastatin (LIPITOR) tablet 20 mg atorvastatin (LIPITOR) tablet 20 mg 03/21/2020 09:00:00 AM EDT 20 mg Oral aborted 20 mg, Oral, Daily Standard, First dose on 03/21/20 at 0900, For 5 days
Hazardous drug. Follow precautions. Dispose of properly.
[facility] Medication administered onsite carvedilol 25 MG Oral Tablet carvedilol (COREG) tablet 25 mg carvedilol (COREG) tablet 25 mg 03/21/2020 09:00:00 AM EDT 25 mg Oral activ e 25 mg, Oral, 2 Times Daily With Meals, First dose on 03/21/20 at 0900, For 30 days
Check vital signs before administering
[facility] Medication administered onsite gabapentin 300 MG Oral Capsule gabapentin (NEURONTIN) capsule 600 mg gabapentin (NEURONTIN) capsule 600 mg 03/21/2020 09:00:00 AM EDT 600 mg Oral aborted 600 mg, Oral, Three Times D aily Standard, First dose on 03/21/20 at 0900, For 15 doses [facility] Medication administered onsite iohexol (OMNIPAQUE) 300 MG/ML contrast injection 100 mL [id number] 03/21/2020 06:00:00 AM EDT 100 mL Given by IV completed 100 mL, Given by IV, 1 TIME IMAGING, 03/21/20 at 0600, For 1 dose [facility] Medication administered onsite Lorazepam 1 MG Oral Tablet LORazepam (ATIVAN) tablet 2 mg LORazepam (ATIVAN) tablet 2 mg 03/21/2020 12:00:00 AM EDT 2 mg Oral aborte d 2 mg, Oral, Every 1 hour, First dose on 03/21/20 at 0000, For 3 days
CIWA >=8 Maximum of 8 mg in 4 hour period. If patient is sleeping, do not wake them to administer Lorazepam or to assess the CIWA score. Assess once patient awakens.
[facility] Medication administered onsite iohexol (OMNIPAQUE) 240 MG/ML contrast 20 mL [id number] 06/2020 11:53:33 PM EDT 20 mL Oral completed 20 mL, Oral, O nce PRN, Contrast, Per Protocol, Starting Mon03/20/20 at 2353, For [address] Scanner prior. call center rn to CT.Dilute in 500 mL liquid x1 infantry operations specialist to CT scan - per protocol. Use "Contrast dose chart" link for dosing guidelines.
[facility] Medication administered onsite iohexol (OMNIPAQUE) 240 MG/ML contrast 20 mL [id number] 06/2020 11:53:33 PM EDT 20 mL Oral completed 20 mL, Oral, O nce PRN, Contrast, Per Protocol, Starting Mon03/20/20 at 2353, For [address] to tell RN administration time of first dose. Dilute in 500 mL liquid x1 Now per protocol. Use "Contrast dose chart" link for dosing guidelines.
[facility] Medication administered onsite pantoprazole 4 MG/ML Injectable Solution pantoprazole (PROTONIX) injection 40 mg pantoprazole (PROTONIX) injection 40 mg 03/20/2020 11:45:00 PM EDT 40 mg Intravenous aborted 40 mg, Intrav enous, 2 Times Daily, First dose on Mon03/20/20 at 2345, For 30 days [facility] Medication administered onsite Lisinopril 20 MG Oral Tablet lisinopril (ZESTRIL) tabl et 20 mg lisinopril (ZESTRIL) tablet 20 mg 03/20/2020 10:45:00 PM EDT 20 mg Oral aborted 20 mg, Oral, 2 Times Daily, First dose (after last modification) on Mon03/20/20 at 2245, For 30 days
Check vital signs before administering
[facility] Medication administered onsite Ceftriaxone 2000 MG Injection cefTRIAXone (ROCEPHIN) I VPB (premix) 2 g cefTRIAXone (ROCEPHIN) IVPB (premix) 2 g 03/20/2020 10:30:00 PM EDT 2 g Intravenous aborted 2 g, Intraven ous, at 100 mL/hr, Every 24 hours, First dose on Mon03/20/20 at 2230, For 5 days
Discouraged Uses: Empiric treatment of post-surgical meningitis (ceftazidime preferred)
[facility] Medication administered onsite Calcium Chloride 0.0014 MEQ/ML / Potassi um Chloride 0.004 MEQ/ML / Sodium Chloride 0.103 MEQ/ML / Sodium Lactate 0.028 MEQ/ML Injectable Solution lactated ringers infusion lactated ringers infusion 03/20/2020 10:15:00 PM EDT 200 mL/h Intravenous aborted at 200 m L/hr, Intravenous, Continuous, Starting Mon03/20/20 at 2215, For 5 days [facility] Medication administered onsite Cyclobenzaprine hydrochloride 10 MG Oral Tablet cyclobenzaprine (FLEXERIL) tablet 10 mg cyclobenzaprine (FLEXERIL) tablet 10 mg 03/20/2020 10:05:35 PM EDT 10 mg Oral active 10 mg, Oral, Thr ee Times Daily-PRN, Muscle spasms, Starting Mon03/20/20 at 2205, For 30 days [facility] Medication administered onsite Tamsulosin hydrochloride 0.4 MG Oral Capsule [Flomax] Flomax 0.4 MG Flomax 0.4 MG 11/14/2019 12:00:00 AM EST active 1 capsule eCW1 ([facility]) Tamsulosin hydrochloride 0.4 MG Oral Capsule [Flomax] Flomax 0.4 MG Flomax 0.4 MG 11/14/2019 12:00:00 AM EST active 1 capsule eCW1 ([facility]) sildenafil 25 MG Oral Tablet [Viagra] Viagra 25 MG Viagra 25 MG 11/13/2019 12:00:00 AM EST active 1 tablet as needed eCW1 ([facility]) sildenafil 25 MG Oral Tablet [Viagra] Viagra 25 MG Viagra 25 MG 11/13/2019 12:00:00 AM EST active 1 tablet as needed eCW1 ([facility]) sildenafil 25 MG Oral Tablet [Viagra] Viagra 25 MG Viagra 25 MG 11/13/2019 12:00:00 AM EST active 1 tablet as needed eCW1 ([facility]) Magnesium Hydroxide 80 MG/ML Oral Suspension Milk Of Ovidio a 10/28/2019 12:00:00 AM EST ORAL active M EDENT ([facility], ) POLYETHYLENE GLYCOL 3350 105 MG/ML / Pot assium Chloride 0.04946 MEQ/ML / Sodium Bicarbonate 0.017 MEQ/ML / Sodium Chloride 0.0479 MEQ/ML Oral Solution [TriLyte] Trilyte 10/28/2019 12:00:00 AM EST active MEDENT ([facility], ) Amlodipine 5 MG Oral Tablet AmLODIPine Besylate 5 MG AmLODIP ine Besylate 5 MG 10/24/2019 12:00:00 AM EST active 1 tablet eCW1 ([facility]) Cephalexin 250 MG Oral Capsule [Keflex] Keflex 250 MG Keflex 250 MG 10/24/2019 12:00:00 AM EST active 1 capsul e eCW1 ([facility]) gabapentin 600 MG Oral Tablet Gabapentin 10/23/2019 12:00:00 AM EST active MEDENT ([facility]) May Have - UNK 09/20/2019 12:00:00 AM EST active May Have - eCW1 ([facility]) Fluoxetine 60 MG Oral Tablet FLUoxetine HCl 60 MG FLUoxetine HCl 60 MG 09/20/2019 12:00:00 AM EST active 1 tablet eCW1 ([facility]) Fluoxetine 60 MG Oral Tablet FLUoxetine HCl 60 MG FLUoxetine HCl 60 MG 09/20/2019 12:00:00 AM EST 1.0 {tablet} active FLUoxetine HCl 60 MG eCW1 ([facility]) Nystatin 094001 UNT/ML / Triamcinolone A cetonide 1 MG/ML Topical Cream Nystatin- Triamcinolone 829192-0.1 UNIT/GM Nystatin-Triamcinolone 219304-4.1 UNIT/GM 09/20/2019 12:00:00 AM EST 1.0 {application} act jack Nystatin- Triamcinolone 569842-0.1 UNIT/GM eCW1 ([facility]) Fluoxetine 60 MG Oral Tablet FLUoxetine HCl 60 MG FLUoxetine HCl 60 MG 09/20/2019 12:00:00 AM EST active 1 tablet eCW1 ([facility]) Fluoxetine 60 MG Oral Tablet FLUoxetine HCl 60 MG FLUoxetine HCl 60 MG 09/20/2019 12:00:00 AM EST 1.0 {tablet} active FLUoxetine HCl 60 MG eCW1 ([facility]) Fluoxetine 60 MG Oral Tablet FLUoxetine HCl 60 MG FLUoxetine HCl 60 MG 09/20/2019 12:00:00 AM EST 1.0 {tablet} active FLUoxetine HCl 60 MG eCW1 ([facility]) Nystatin 341760 UNT/ML / Triamcinolone A cetonide 1 MG/ML Topical Cream Nystatin- Triamcinolone 930882-5.1 UNIT/GM Nystatin-Triamcinolone 133492-7.1 UNIT/GM 09/20/2019 12:00:00 AM EST 1.0 {application} act jack Nystatin- Triamcinolone 901783-6.1 UNIT/GM eCW1 ([facility]) May Have - UNK 09/20/2019 12:00:00 AM EST active May Have - eCW1 ([facility]) Fluoxetine 60 MG Oral Tablet FLUoxetine HCl 60 MG FLUoxetine HCl 60 MG 09/20/2019 12:00:00 AM EST 1.0 {tablet} active FLUoxetine HCl 60 MG eCW1 ([facility]) Nystatin 417084 UNT/ML / Triamcinolone A cetonide 1 MG/ML Topical Cream Nystatin- Triamcinolone 722587-8.1 UNIT/GM Nystatin-Triamcinolone 288807-4.1 UNIT/GM 09/20/2019 12:00:00 AM EST active 1 application eCW1 ([facility]) May Have - UNK 09/20/2019 12:00:00 AM EST active cane eCW1 ([facility]) May Have - UNK 09/20/2019 12:00:00 AM EST active May Have - eCW1 ([facility]) Fluoxetine 60 MG Oral Tablet FLUoxetine HCl 60 MG FLUoxetine HCl 60 MG 09/20/2019 12:00:00 AM EST active 1 tablet eCW1 ([facility]) May Have - UNK 09/20/2019 12:00:00 AM EST active May Have - eCW1 ([facility]) Nicotine 2 MG Oral Lozenge Nicotine Polacrilex 2 MG Nicotine Polacrilex 2 MG 09/20/2019 12:00:00 AM EST active 1 lozenge as needed eCW1 ([facility]) May Have - UNK 09/20/2019 12:00:00 AM EST active May Have - eCW1 ([facility]) May Have - UNK 09/20/2019 12:00:00 AM EST active May Have - eCW1 ([facility]) Nystatin 828659 UNT/ML / Triamcinolone A cetonide 1 MG/ML Topical Cream Nystatin- Triamcinolone 847592-0.1 UNIT/GM Nystatin-Triamcinolone 632343-0.1 UNIT/GM 09/20/2019 12:00:00 AM EST 1.0 {application} act jack Nystatin- Triamcinolone 090960-1.1 UNIT/GM eCW1 ([facility]) May Have - UNK 09/20/2019 12:00:00 AM EST active May Have - eCW1 ([facility]) Nystatin 901082 UNT/ML / Triamcinolone A cetonide 1 MG/ML Topical Cream Nystatin- Triamcinolone 772595-4.1 UNIT/GM Nystatin-Triamcinolone 584363-0.1 UNIT/GM 09/20/2019 12:00:00 AM EST active 1 application eCW1 ([facility]) Fluoxetine 60 MG Oral Tablet FLUoxetine HCl 60 MG FLUoxetine HCl 60 MG 09/20/2019 12:00:00 AM EST active 1 tablet eCW1 ([facility]) Nystatin 098428 UNT/ML / Triamcinolone A cetonide 1 MG/ML Topical Cream Nystatin- Triamcinolone 369265-5.1 UNIT/GM Nystatin-Triamcinolone 910318-6.1 UNIT/GM 09/20/2019 12:00:00 AM EST active 1 application eCW1 ([facility]) May Have - UNK 09/20/2019 12:00:00 AM EST active May Have - eCW1 ([facility]) Fluoxetine 60 MG Oral Tablet FLUoxetine HCl 60 MG FLUoxetine HCl 60 MG 09/20/2019 12:00:00 AM EST 1.0 {tablet} active FLUoxetine HCl 60 MG eCW1 ([facility]) One touch ultra blue _ UNK 09/20/2019 12:00:00 AM EST active 1 bottle of test solution eCW1 ([facility]) May Have - UNK 09/20/2019 12:00:00 AM EST active cane eCW1 ([facility]) May Have - UNK 09/20/2019 12:00:00 AM EST active May Have - eCW1 ([facility]) Nystatin 244442 UNT/ML / Triamcinolone A cetonide 1 MG/ML Topical Cream Nystatin- Triamcinolone 336777-2.1 UNIT/GM Nystatin-Triamcinolone 509721-6.1 UNIT/GM 09/20/2019 12:00:00 AM EST 1.0 {application} act jack Nystatin- Triamcinolone 745508-9.1 UNIT/GM eCW1 ([facility]) Nystatin 135829 UNT/ML / Triamcinolone A cetonide 1 MG/ML Topical Cream Nystatin- Triamcinolone 111127-8.1 UNIT/GM Nystatin-Triamcinolone 848967-6.1 UNIT/GM 09/20/2019 12:00:00 AM EST 1.0 {application} act jack Nystatin- Triamcinolone 753403-8.1 UNIT/GM eCW1 ([facility]) Fluoxetine 60 MG Oral Tablet FLUoxetine HCl 60 MG FLUoxetine HCl 60 MG 09/20/2019 12:00:00 AM EST 1.0 {tablet} active FLUoxetine HCl 60 MG eCW1 ([facility]) Fluoxetine 60 MG Oral Tablet FLUoxetine HCl 60 MG FLUoxetine HCl 60 MG 09/20/2019 12:00:00 AM EST 1.0 {tablet} active FLUoxetine HCl 60 MG eCW1 ([facility]) Fluoxetine 60 MG Oral Tablet FLUoxetine HCl 60 MG FLUoxetine HCl 60 MG 09/20/2019 12:00:00 AM EST 1.0 {tablet} active FLUoxetine HCl 60 MG eCW1 ([facility]) May Have - UNK 09/20/2019 12:00:00 AM EST active cane eCW1 ([facility]) Nystatin 492405 UNT/ML / Triamcinolone A cetonide 1 MG/ML Topical Cream Nystatin- Triamcinolone 777718-5.1 UNIT/GM Nystatin-Triamcinolone 011724-9.1 UNIT/GM 09/20/2019 12:00:00 AM EST 1.0 {application} act jack Nystatin- Triamcinolone 285145-9.1 UNIT/GM eCW1 ([facility]) May Have - UNK 09/20/2019 12:00:00 AM EST active May Have - eCW1 ([facility]) May Have - UNK 09/20/2019 12:00:00 AM EST active May Have - eCW1 ([facility]) May Have - UNK 09/20/2019 12:00:00 AM EST active May Have - eCW1 ([facility]) Nystatin 435962 UNT/ML / Triamcinolone A cetonide 1 MG/ML Topical Cream Nystatin- Triamcinolone 955063-0.1 UNIT/GM Nystatin-Triamcinolone 548436-6.1 UNIT/GM 09/20/2019 12:00:00 AM EST active 1 application eCW1 ([facility]) Nicotine 2 MG Oral Lozenge Nicotine Polacrilex 2 MG Nicotine Polacrilex 2 MG 09/20/2019 12:00:00 AM EST active 1 lozenge as needed eCW1 ([facility]) May Have - UNK 09/20/2019 12:00:00 AM EST active cane eCW1 ([facility]) Fluoxetine 60 MG Oral Tablet FLUoxetine HCl 60 MG FLUoxetine HCl 60 MG 09/20/2019 12:00:00 AM EST 1.0 {tablet} active FLUoxetine HCl 60 MG eCW1 ([facility]) 3 ML Insulin Glargine 100 UNT/ML Pen Inj shruthi [Lantus] Lantus SoloStar 100 UNIT/ML Lantus SoloStar 100 UNIT/ML 08/23/2019 12:00:00 AM EST active as directed eCW1 ([facility]) BD Pen Needle Mini U/F 31G X 5 MM BD Pen Needle Mini U/F 31G X 5 MM 08/23/2019 12:00:00 AM EST active 1 inject ion eCW1 ([facility]) Ibuprofen 600 MG Oral Tablet ibuprofen (ADVIL,MOTRIN) 600 MG tablet ibuprofen (ADVIL,MOTRIN) 600 MG tablet 12/09/2015 12:00:00 AM EDT aborted [facility] Mirtazapine 15 MG Oral Tablet mirtazapine (REMERON) 15 MG tablet mirtazapine (REMERON) 15 MG tablet 11/19/2015 12:00:00 AM EST aborted [facility] terbinafine 250 MG Oral Tablet terbinafine (LAMISIL) 2 50 MG tablet terbinafine (LAMISIL) 250 MG tablet 11/18/2015 12:00:00 AM EST aborted [facility] atorvastatin 20 MG Oral Tablet atorvastatin (LIPITOR) 20 MG tablet atorvastatin (LIPITOR) 20 MG tablet 10/06/2015 12:00:00 AM EST aborted [facility] tramadol hydrochloride 50 MG Oral Tablet traMADol HCl 50 MG Oral Tablet (ULTRAM) traMADol HCl 50 MG Oral Tablet (ULTRAM) 50 mg Oral aborted Take 50 mg by mouth every 6 (six) hours as needed for Pain [facility] Lisinopril 20 MG Oral Tablet lisinopril (PRINIVIL,ZEST RIL) 20 MG tablet lisinopril (PRINIVIL,ZESTRIL) 20 MG tablet 20 mg Oral aborted Take 20 mg by mouth daily [facility] Atenolol 50 MG Oral Tablet Atenolol 50 MG Oral Tablet (TENORMIN) Atenolol 50 MG Oral Tablet (TENORMIN) 75 mg Oral aborted T rafa 75 mg by mouth daily [facility] Esomeprazole 40 MG Delayed Release Oral Capsule Esomeprazole Magnesium 40 MG Oral Capsule Delayed Release (NEXIUM) Esomeprazole Magnesium 40 MG Oral Capsul e Delayed Release (NEXIUM) 40 mg Oral aborted Take 40 mg by mouth daily [facility] Metformin hydrochloride 1000 MG Oral Tab let metformin (GLUCOPHAGE) 1000 MG tablet metformin (GLUCOPHAGE) 1000 MG tablet 1000 mg Oral aborted Take 1,000 mg by mouth Two times daily with meals. [facility] carvedilol 25 MG Oral Tablet carvedilol (COREG) 25 MG tablet carvedilol (COREG) 25 MG tablet 25 mg Oral aborted Juan Francisco e 25 mg by mouth Two times daily with meals. [facility] Omeprazole 20 MG Delayed Release Oral Ca psule omeprazole (PRILOSEC) 20 MG capsule omeprazole (PRILOSEC) 20 MG capsule 20 mg Oral aborted Take 20 mg by mouth Two times daily before meals. [facility] Insurance Providers Payer name Policy type / Coverage type Policy ID Covered democrat ID Covered democrat's relationship to glaser Policy Glaser Plan Information HUMANA GOLD [id number] SP [id number] EMEDNY [id number] SP [id number] HUMANA GOLD [id number] SP [id number] HUMANA MEDICARE ADVANTAGE G [id number] Self [id number] MEDICAID M [id number] Self [id number] HUMANA GOLD [id number] SP [id number] HUMANA GOLD O [id number] S [id number] MEDICAID M [id number] S [id number] MEDICARE [id number] SP [id number] MEDICARE [id number] SP [id number] A [employer] P [id number] S [id number] Medicaid S [id number] S [id number] [employer]NA MEDICARE ADVANTAGE G [id number] Self [id number] MEDICARE A [id number] Self [id number] A MEDICAID [id number] SP [id number] Medicare S [id number] S [id number] MEDICARE [id number] Other [id number] MEDICARE [id number] S [id number] MEDICARE [id number] Other [id number] A ANSI-Medicare Part B [id number] ANSI-Medicaid [id number] ANSI-Medicare Part B [id number] ANSI-Medicaid [id number] ANSI-Medicare Part B [id number] ANSI-Medicaid [id number] [place] [id number] Self [id number] [place] [id number] Self [id number] [place] [id number] Self [id number] ANSI-Medicare Part B [id number] ANSI-Medicaid [id number] ANSI-Medicare Part B [id number] ANSI-Medicaid [id number] ANSI-Medicare Part B [id number] ANSI-Medicaid [id number] [place] [id number] Self [id number] [place] [id number] Self [id number] [place] [id number] Self [id number] ANSI-Medicaid [id number] ANSI-Medicare Part B [id number] Medicaid [place] Med[place] Part [place] [id number] Self [id number] [place] [id number] Self [id number] [place] [id number] Self [id number] ANS-Medicare Part B [id number] ANSI-Medicaid [id number] [place] [id number] Self [id number] [place] [id number] Self [id number] [place] [id number] Self [id number] ANSI-Medicaid [id number] ANSI-Medicare Part B [id number] [place] [id number] Self [id number] [place] [id number] Self [id number] [place] [id number] Self [id number] ANSI-Medicaid [id number] ANSI-Medicare Part B [id number] ANSI-Medicaid [id number] ANSI-Medicare Part B [id number] ANSI-Medicaid [id number] ANSI-Medicare Part B [id number] ANSI-Medicaid [id number] ANSI-Medicare Part B [id number] ANSI-Medicare Part B [id number] ANSI-Medicaid [id number] ANSI-Medicare Part B [id number] ANSI-Medicaid [id number] ANSI-Medicaid [id number] ANSI-Medicare Part B [id number] [facility] [place] [facility] [id number] Self [id number] [facility] [id number] Self [id number] Medicare [facility] Medicare Primary [id number] Self [id number] ANSI-Medicare Part B [id number] ANSI-Medicaid [id number] [facility] [id number] Self [id number] [facility] [id number] Self CD3 [id number] Medicare [facility] Medicare Primary [id number] Self [id number] ANSI-Medicare Part B [id number] ANSI-Medicaid [id number] ANSI-Medicare Part B [id number] ANSI-Medicaid [id number] ANSI-Medicare Part B [id number] ANSI-Medicaid [id number] ANSI-Medicare Part B [id number] ANSI-Medicaid [id number] ANSI-Medicare Part B [id number] ANSI-Medicaid [id number] ANSI-Medicaid [id number] ANSI-Medicare Part B [id number] ANSI-Medicaid [id number] ANSI-Medicare Part B [id number] ANSI-Medicaid [id number] ANSI-Medicare Part B [id number] [place] [id number] Self [id number] [place] [id number] Self CD3 [id number] [id number] Self [id number] ANSI-Medicare Part B [id number] ANSI-Medicaid [id number] [place] [id number] Self CD3 [id number] Medicare [facility] Medicare Primary [id number] Self [id number] MEDICARE [id number] SP [id number] [place] [id number] Self [id number] [place] [id number] Self CD3 [id number] [place] [id number] Self [id number] [place]ig[place] [id number] Self CD3 [id number] [id number] Self CD3 [id number] Medicare [facility] Medicare Primary [id number] Self [id number] [place] [id number] Self CD3 [id number] Medicare [facility] Medicare Primary [id number] Self [id number] MEDICAID [id number] [place] [id number] Self [id number] [place] [id number] Self CD3 [id number] Medicare [facility] Medicare Primary [id number] Self [id number] MEDICARE C [id number] S [id number] [place] [id number] Self CD3 [id number] [place]ig[place] [id number] Self CD3 [id number] Medicare [facility] Medicare Primary [id number] Self [id number] MEDICAID M [id number] Self [id number] [place] [id number] Self [id number] [place] [id number] Self CD3 [id number] Medicare [facility] Medicare Primary [id number] Self [id number] [place] [id number] Self [id number] [place] [id number] Self CD3 [id number] Medicare [facility] Medicare Primary [id number] Self [id number] [place] [id number] Self CD3 [id number]ig[place] [id number] Self CD3 [id number] [place] [id number] Self [id number] [place] [id number] Self CD3 [id number] [place] Medicare Primary [id number] Self [id number] [place]ig[place] [id number] Self CD3 [id number] [place] Medicare Primary [id number] Self [id number] [place]ig[place] [id number] Self CD3 [id number] [place] Medicare Primary [id number] Self [id number] [place] [id number] Self CD3 [id number] [place] [id number] Self CD3 [id number] [place] Primary [id number] Self [id number] [place] Part [place] [id number] Self CD3 [id number] [place] [id number] Self CD3 [id number] Medicare [facility] Medicare Primary [id number] Self [id number] [place] [id number] Self CD3 [id number] [place]ig[place] [id number] Self CD3 [id number] Medicare [facility] Medicare Primary [id number] Self [id number] [place] Medicare Primary [id number] Self [id number] [place]ig[place] [id number] Self CD3 [id number] [place] [id number] Self CD3 [id number] Medicare [facility] Medicare Primary [id number] Self [id number] [place] Self MEDICARE [id number] SP [id number] A SELF PAY UNAVAILABLE SP UNAVAILA BLE MEDICAID [id number] PT [id number] MEDICARE PART B [id number] PT [id number] MEDICARE PART A [id number] PT [id number] Problems, Conditions, and Diagnoses Code Display Name Description Problem Type Effective Dates Data Source(s) E13.10 0778130 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 Problem 10/06/2020 12:00:00 AM EST eCW1 ([facility]) K76.0 [id number] Fatty liver Problem 10/05/2020 12:00:[address] eCW1 ([facility]) N40.0 [id number] Benign prostatic hyp erplasia without lower urinary tract symptoms Problem 10/05/2020 12:00:00 AM EST eCW1 ([facility]) K50.919 43675989 Crohn's disease with complication, unspecified gastrointestinal tract location Problem 10/05/2020 12:00:00 AM EST eCW1 ([facility]) K70.0 39077838 Fatty liver due to alcoholism Problem 2020 12:00:00 AM EST eCW1 ([facility]) K86.0 435537346 Alcohol-induced chronic pancreatitis Prob yi 10/05/2020 12:00:00 AM EST eCW1 ([facility]) Y83.2 92081284 Surgical operation w ith anastomosis, bypass or graft as the cause of abnormal reaction of the patient, or of later complication, without mention of misadventure at the time of the procedure Problem 09/07/2020 12:0 0:00 AM EST eCW1 ([facility]) D50.0 638320857 Iron deficiency anemia due to chronic blo od loss Problem 07/21/2020 12:00:00 AM EST eCW1 ([facility]) N40.1 [id number] Benign prostatic hyp erplasia with lower urinary tract symptoms Problem 11/14/2019 12:00:00 AM EST eCW1 ([facility]) N40.1 [id number] Benign prostatic hyp erplasia with lower urinary tract symptoms Problem 11/14/2019 12:00:00 AM EST eCW1 ([facility]) E11.65 Hyperglycemia due to type 2 diabetes no litus Diabetes mellitus with hyperglycemia Problem 11/14/2019 12:00:00 AM EST W1 ([facility]) E29.1 [id number] Hypogonadism in male Problem 11/01/2019 12:0 0:00 AM EST eCW1 ([facility]) E29.1 [id number] Hypogonadism in male Problem 11/01/2019 12:0 0:00 AM EST eCW1 ([facility]) I10 Hypertension Hypertension Problem 11/01/2019 12:00:00 A M EST [facility] ([facility]) N52.9 [id number] Erectile dysfunction, unspecifie d erectile dysfunction type Problem 10/24/2019 12:00:00 AM EST W1 ([facility]) Z12.11 [id number] Colon cancer screening Problem 08/23/2019 12 :00:00 AM EST W1 ([facility]) Z12.11 [id number] Colon cancer screening Problem 08/23/2019 12 :00:00 AM EST [facility] ([facility]) K83.8 Other specified diseases of biliary trac t Other specified diseases of biliary tract Diagnosis 07/29/2020 11:27:57 AM [facility] K28.9 Gastrojejunal ulcer, unspeci fied as acute or chronic, without hemorrhage or perforation Gastrojejunal ulcer, unspecified as acut e or chronic, without hemorrhage or perforation Diagnosis 07/29/2020 11:27:57 AM [facility] K80.50 Calculus of bile duct withou t cholangitis or cholecystitis without obstruction Calculus of bile duct without cholangiti s or cholecystitis without obstruction Diagnosis 05/13/2020 01:33:03 PM [facility] I10 Essential (primary) hypertension Essential (primary) h ypertension Diagnosis 03/21/2020 01:21:37 AM [facility] gi bleed, CBD & pancreatic duct stone bl ockage, SI gi bleed, CBD & pancreatic duct stone blockage, SI Diagnosis 03/20/2020 09:58:44 PM EDT [facility] Surgeries/Procedures Procedure Description Date Indications Data Source(s) POCT GLUCOSE, DOCKED POCT GLUCOSE, DOCKED Routine 03/27/2020 12:28 PM EDT 03/27/2020 04:28:00 PM [facility] POCT GLUCOSE, DOCKED POCT GLUCOSE, DOCKED Routine 03/27/2020 8:57 AM EDT 03/27/2020 12:57:00 PM [facility] BLOOD COUNT COMPLETE AUTO&AUTO DIFRNTL WBC COUNT CBC AND DIFFER ENTIAL Timed 03/27/2020 3:17 AM EDT 03/27/2020 07:17:00 AM [facility] BASIC METABOLIC PANEL CALCIUM TOTAL BASIC METABOLIC PANEL Routi ne 03/27/2020 3:17 AM EDT 03/27/2020 07:17:00 AM [facility] GLUCOSE QUANTITATIVE BLOOD XCPT REAGENT STRIP POCT GLUCOSE, DOC ARMANDO Routine 03/26/2020 10:40 PM EDT 03/27/2020 02:40:00 AM [facility] GLUCOSE QUANTITATIVE BLOOD XCPT REAGENT STRIP POCT GLUCOSE, DOC RICARDAD Routine 03/26/2020 10:00 PM EDT 03/27/2020 02:00:00 AM [facility] GLUCOSE QUANTITATIVE BLOOD XCPT REAGENT STRIP POCT GLUCOSE, DOC ARMANDO Routine 03/26/2020 5:02 PM EDT 03/26/2020 09:02:00 PM [facility] CT ABDOEN & PELVIS W/CONTRAST MATERIAL CT ENTEROGRAPHY [id number] Ro utine 03/26/2020 3:27 PM EDT 03/26/2020 07:27:04 PM [facility] GLUCOSE QUANTITATIVE BLOOD XCPT REAGENT STRIP POCT GLUCOSE, DOC KED Routine 03/26/2020 12:34 PM EDT 03/26/2020 04:34:00 PM [facility] BLOOD COUNT COMPLETE AUTO&AUTO DIFRNTL WBC COUNT CBC AND DIFFER ENTIAL Timed 03/26/2020 12:28 PM EDT 03/26/2020 04:28:00 PM [facility] GLUCOSE QUANTITATIVE BLOOD XCPT REAGENT STRIP POCT GLUCOSE, DOC KED Routine 03/26/2020 8:49 AM EDT 03/26/2020 12:49:00 PM [facility] BLOOD COUNT COMPLETE AUTO&AUTO DIFRNTL WBC COUNT CBC AND DIFFER ENTIAL Timed 03/26/2020 3:57 AM EDT 03/26/2020 07:57:00 AM [facility] BASIC METABOLIC PANEL CALCIUM TOTAL BASIC METABOLIC PANEL Routi ne 03/26/2020 3:57 AM EDT 03/[facility] XCPT REAGENT STRIP POCT GLUCOSE, KARLO CHOWDARYD Routine 03/25/2020 10:01 PM EDT 03/26/2020 02:01:00 AM [facility] GLUCOSE QUANTITATIVE BLOOD XCPT REAGENT STRIP POCT GLUCOSE, DOC KED Routine 03/25/2020 9:21 PM EDT 03/26/2020 01:21:00 AM [facility] BLOOD COUNT COMPLETE AUTOMATED CBC AND DIFFERENTIAL Timed 03/25/2020 9:00 PM EDT [facility]2020 [facility] QUANT[facility]ATIVE BLOOD XCPT REAGENT STRIP POCT GLUCOSE, KARLO CHOWDARY Routine 03/25/2020 8:59 PM EDT 03/26/2020 12:59:00 AM [facility] GLUCOSE QUANTITATIVE BLOOD XCPT REAGENT STRIP POCT GLUCOSE, DOC RICARDAD Routine 03/25/2020 5:27 PM EDT 03/25/2020 09:27:00 PM [facility] GLUCOSE QUANTITATIVE BLOOD XCPT REAGENT STRIP POCT GLUCOSE, DOC RICARDAD Routine 03/25/2020 12:51 PM EDT 03/25/2020 04:51:00 PM [facility] BLOOD COUNT COMPLETE AUTO&AUTO DIFRNTL WBC COUNT CBC AND DIFFER ENTIAL Timed 03/25/2020 12:28 PM EDT 03/25/2020 04:28:00 PM [facility] UPPER GI ENDOSCOPY; DX, W/WO SPECIMEN COLLECTION, BRUS PAVEL/WASHING (SEP PROC) UPPER GI ENDOSCOPY; DX, W/WO SPECIMEN COLLECTION, BRUSHING/WASHING (SEP PROC) 03/25/2020 9:09 AM EDT Anemia 03/25/2020 01:09:00 PM EDT - 03/25/2020 02:28:00 PM [facility] COLONOSCOPY, FLEXIBLE, PROXIMAL TO SPLEN IC FLEXURE DX, W/WO SPECIMENS/COLON DECOMP (SEP PROC) COLONOSCOPY, FLEXIBLE, PROXIMAL TO SPLEN IC FLEXURE DX, W/WO SPECIMENS/COLON DECOMP (SEP PROC) 03/25/2020 9:09 AM EDT Anemia 03/25/2020 01:09:00 PM EDT - 03/25/2020 02:28:00 PM [facility] BLOOD COUNT COMPLETE AUTO&AUTO DIFRNTL WBC COUNT CBC AND DIFFER ENTIAL Timed 03/25/2020 2:54 AM EDT 03/25/2020 06:54:00 AM [facility] BASIC METABOLIC PANEL CALCIUM TOTAL BASIC METABOLIC PANEL Routi ne 03/25/2020 2:54 AM EDT 03/25/2020 06:54:00 AM EDT [facility] UPPER GI ENDOSCOPY UPPER GI ENDOSCOPY 03/25/2020 12:00 AM E DT 03/25/2020 04:00:00 AM [facility] Screening colonoscopy (procedure) COLONOSCOPY 03/25/2020 12 :00 AM EDT 03/25/2020 04:00:00 AM [facility] GLUCOSE QUANTITATIVE BLOOD XCPT REAGENT STRIP POCT GLUCOSE, KARLO ROBERTS Routine 03/24/2020 8:40 PM EDT 03/25/2020 12:40:00 AM [facility] BLOOD COUNT COMPLETE AUTO&AUTO DIFRNTL WBC COUNT CBC AND DIFFER ENTIAL Timed 03/24/2020 6:37 PM EDT 03/24/2020 10:37:00 PM [facility] GLUCOSE QUANTITATIVE BLOOD XCPT REAGENT STRIP POCT GLUCOSE, KARLO ROBERTS Routine 03/24/2020 5:57 PM EDT 03/24/2020 09:57:00 PM [facility] GLUCOSE QUANTITATIVE BLOOD XCPT REAGENT STRIP POCT GLUCOSE, KARLO ROBERTS Routine 03/24/2020 12:37 PM EDT 03/24/2020 04:37:00 PM [facility] BLOOD COUNT COMPLETE AUTO&AUTO DIFRNTL WBC COUNT CBC AND DIFFER ENTIAL Timed 03/24/2020 10:58 AM EDT 03/24/2020 02:58:00 PM [facility] GLUCOSE QUANTITATIVE BLOOD XCPT REAGENT STRIP POCT GLUCOSE, DOC RICARDAD Routine 03/24/2020 8:26 AM EDT 03/24/2020 12:26:00 PM [facility] BASIC METABOLIC PANEL CALCIUM TOTAL BASIC METABOLIC PANEL STAT 03/24/2020 3:40 AM EDT 03/24/2020 07:40[facility] COUNT COMPLETE AUTO&AUTO DIFRNTL WBC COUNT CBC AND DIFFER ENTIAL Timed 03/24/2020 2:31 AM EDT 03/24/2020 06:31:00 AM [facility] BASIC METABOLIC PANEL CALCIUM TOTAL BASIC METABOLIC PANEL Routi ne 03/24/2020 2:31 AM EDT 03/24/2020 06:31:00 AM EDT [facility] GLUCOSE QUANTITATIVE BLOOD XCPT REAGENT STRIP POCT GLUCOSE, DOC ARMANDO Routine 03/23/2020 9:26 PM EDT 03/24/2020 01:26:00 AM [facility] GLUCOSE QUANTITATIVE BLOOD XCPT REAGENT STRIP POCT GLUCOSE, DOC RICARDAD Routine 03/23/2020 9:24 PM EDT 03/24/2020 01:24:00 AM [facility] EKG 12-LEAD - CMAXX REPORT EKG 12-LEAD - CMAXX REPORT 03/23/2020 8:07 PM EDT 03/24/2020 12:07:36 AM EDT [facility] EKG 12-LEAD - CMAXX REPORT EKG 12-LEAD - CMAXX REPORT 03/23/2020 8:07 PM EDT 03/24/2020 12:07:36 AM EDT [facility] EKG 12-LEAD - CMAXX REPORT EKG 12-LEAD - CMAXX REPORT 03/23/2020 8:07 PM EDT 03/24/2020 12:07:36 AM EDT [facility] EKG 12-LEAD EKG 12-LEAD Routine 03/23/2020 8:07 PM EDT 03/24/2020 12:07:36 AM [facility] BLOOD COUNT COMPLETE AUTO&AUTO DIFRNTL WBC COUNT CBC AND DIFFER ENTIAL Timed 03/23/2020 6:49 PM EDT 03/23/2020 10:49:00 PM [facility] GLUCOSE QUANTITATIVE BLOOD XCPT REAGENT STRIP POCT GLUCOSE, DOC RICARDAD Routine 03/23/2020 6:05 PM EDT 03/23/2020 10:05:00 PM [facility] GLUCOSE QUANTITATIVE BLOOD XCPT REAGENT STRIP POCT GLUCOSE, DOC RICARDAD Routine 03/23/2020 12:51 PM EDT 03/23/2020 04:51:00 PM [facility] GLUCOSE QUANTITATIVE BLOOD XCPT REAGENT STRIP POCT GLUCOSE, DOC RICARDAD Routine 03/23/2020 9:14 AM EDT 03/23/2020 01:14:00 PM [facility] BLOOD COUNT COMPLETE AUTOMATED CBC Routine 03/23/2020 8:49 A M EDT 03/23/2020 12:49:00 PM [facility] BASIC METABOLIC PANEL CALCIUM TOTAL BASIC METABOLIC PANEL Routi ne 03/23/2020 8:49 AM EDT 03/23/2020 12:49:00 PM EDT [facility] BLOOD COUNT COMPLETE AUTO&AUTO DIFRNTL WBC COUNT CBC AND DIFFER ENTIAL Timed 03/23/2020 6:06 AM EDT 03/23/2020 10:06:00 AM [facility] TRANSFUSE RBC (ONCE) TRANSFUSE RBC (ONCE) Routine 03/23/2020 4:40 AM EDT 03/23/2020 08:40:57 AM [facility] BLOOD COUNT COMPLETE AUTO&AUTO DIFRNTL WBC COUNT CBC AND DIFFER ENTIAL Timed 03/22/2020 11:15 PM EDT 03/23/2020 03:15:00 AM [facility] GLUCOSE QUANTITATIVE BLOOD XCPT REAGENT STRIP POCT GLUCOSE, DOC KED Routine 03/22/2020 9:28 PM EDT 03/23/2020 01:28:00 AM [facility] GLUCOSE QUANTITATIVE BLOOD XCPT REAGENT STRIP POCT GLUCOSE, DOC KED Routine 03/22/2020 5:43 PM EDT 03/22/2020 09:43:00 PM [facility] GLUCOSE QUANTITATIVE BLOOD XCPT REAGENT STRIP POCT GLUCOSE, DOC KED Routine 03/22/2020 1:56 PM EDT 03/22/2020 05:56:00 PM [facility] BLOOD COUNT COMPLETE AUTO&AUTO DIFRNTL WBC COUNT CBC AND DIFFER ENTIAL Timed 03/22/2020 12:54 PM EDT 03/22/2020 04:54:00 PM [facility] MRI ABDOMEN W/O CONTRAST MATERIAL MR BILIARY TREE MRCP [id number] Ro utine 03/22/2020 11:27 AM EDT 03/22/2020 03:27:20 PM [facility] GLUCOSE QUANTITATIVE BLOOD XCPT REAGENT STRIP POCT GLUCOSE, DOC KED Routine 03/22/2020 7:44 AM EDT 03/22/2020 11:44:00 AM [facility] BLOOD COUNT COMPLETE AUTO&AUTO DIFRNTL WBC COUNT CBC AND DIFFER ENTIAL Timed 03/22/2020 3:30 AM EDT 03/22/2020 07:30:00 AM [facility] COMPREHENSIVE METABOLIC PANEL COMPREHENSIVE METABOLIC PANEL Rou rach 03/22/2020 3:30 AM EDT 03/22/2020 07:30:00 AM EDT [facility] GLUCOSE QUANTITATIVE BLOOD XCPT REAGENT STRIP POCT GLUCOSE, DOC KED Routine 03/22/2020 3:19 AM EDT 03/22/2020 07:19:00 AM [facility] GLUCOSE QUANTITATIVE BLOOD XCPT REAGENT STRIP POCT GLUCOSE, DOC KELuis Routine 03/21/2020 11:29 PM EDT 03/22/2020 03:29:00 AM [facility] BLOOD COUNT COMPLETE AUTO&AUTO DIFRNTL WBC COUNT CBC AND DIFFER ENTIAL Timed 03/21/2020 8:20 PM EDT 03/22/2020 12:20:00 AM [facility] GLUCOSE QUANTITATIVE BLOOD XCPT REAGENT STRIP POCT GLUCOSE, DOC KED Routine 03/21/2020 5:21 PM EDT 03/21/2020 09:21:00 PM [facility] ACUTE GASTROINTESTINAL BLOOD LOSS IMAGING NM GI BLOOD LOSS IMAG ING [id number] STAT 03/21/2020 4:00 PM EDT 03/21/2020 08:00:03 PM [facility] BLOOD COUNT COMPLETE AUTOMATED CBC STAT 03/21/2020 1:56 P M EDT 03/21/2020 05:56:00 PM [facility] SODIUM URINE SODIUM, URINE, RANDOM Routine 03/21/2020 12:45 PM EDT 03/21/2020 04:45:00 PM [facility] GLUCOSE QUANTITATIVE BLOOD XCPT REAGENT STRIP POCT GLUCOSE, DOC KED Routine 03/21/2020 12:41 PM EDT 03/21/2020 04:41:00 PM [facility] LACTATE LACTIC ACID LEVEL, PLASMA Routine 03/21/2020 11:23 AM EDT 03/21/2020 03:23:00 PM [facility] OSMOLALITY BLOOD OSMOLALITY,BLOOD Routine 03/21/2020 11:02 AM EDT 03/21/2020 03:02:00 PM [facility] GLUCOSE QUANTITATIVE BLOOD XCPT REAGENT STRIP POCT GLUCOSE, DOC KED Routine 03/21/2020 7:58 AM EDT 03/21/2020 11:58:00 AM [facility] CT ABDOMEN W/CONTRAST MATERIAL CT ABDOMEN WITH CONTRAST [id number] S TAT 03/21/2020 6:05 AM EDT 03/21/2020 10:05:00 AM EDT [facility] CONFIRMATORY TYPE CONFIRMATORY TYPE Routine 03/21/2020 5:24 AM EDT 03/21/2020 09:24:00 AM [facility] BLOOD COUNT COMPLETE AUTO&AUTO DIFRNTL WBC COUNT CBC AND DIFFER ENTIAL STAT 03/21/2020 5:24 AM EDT 03/21/2020 09:24:00 AM [facility] COMPREHENSIVE METABOLIC PANEL COMPREHENSIVE METABOLIC PANEL Rou rach 03/21/2020 5:24 AM EDT 03/21/2020 09:24:00 AM EDT [facility] EKG 12-LEAD - CMAXX REPORT EKG 12-LEAD - CMAXX REPORT 03/21/2020 2:25 AM EDT 03/21/2020 06:25:01 AM EDT [facility] EKG 12-LEAD - CMAXX REPORT EKG 12-LEAD - CMAXX REPORT 03/21/2020 2:25 AM EDT 03/21/2020 06:25:01 AM EDT [facility] EKG 12-LEAD EKG 12-LEAD Routine 03/21/2020 2:25 AM EDT 03/21/2020 06:25:01 AM [facility] DRUGS OF ABUSE, URINE DRUGS OF ABUSE, URINE Routine 03/21/2020 12 :37 AM EDT 03/21/2020 04:37:00 AM [facility] BLOOD OCCULT FECAL HGB DETER IA QUAL FECES 1-3 FECAL OCCULT BLOOD, LOWER GI (HEMOCCULT-ICT), FIT TESTING, Routine 03/21/2020 12:37 AM EDT 03/21/2020 04:37:00 AM [facility] IAAD EIA HIV-1 AG W/HIV-1&HIV-2 ANTBDY SINGLE HIV AG AB COMBO S CREEN Routine 03/21/2020 12:22 AM EDT 03/21/2020 04:22:00 AM [facility] ETHYL ALCOHOL LEVEL ETHYL ALCOHOL LEVEL Routine 03/21/2020 12:22 AM EDT 03/21/2020 04:22:00 AM [facility] HEPATITIS C ANTIBODY HEPATITIS C ANTIBODY Routine 03/21/2020 12:22 AM EDT 03/21/2020 04:22:00 AM [facility] IADNA HEPATITIS C QUANTIFICATION HEPATITIS C RNA, QUANTITATIVE, PCR Routine 03/21/2020 12:22 AM EDT 03/21/2020 04:22:00 AM [facility] PROTHROMBIN TIME PROTIME INR Routine 03/21/2020 12:22 AM EDT 03/21/2020 04:22:00 AM [facility] BLOOD COUNT COMPLETE AUTO&AUTO DIFRNTL WBC COUNT CBC AND DIFFER ENTIAL Routine 03/21/2020 12:22 AM EDT 03/21/2020 04:22:00 AM [facility] BLOOD TYPING ABO TYPE AND CROSSMATCH Routine 03/21/2020 12:22 AM ED T 03/21/2020 04:22:00 AM [facility] PHOSPHORUS INORGANIC PHOSPHORUS LEVEL Routine 03/21/2020 12:22 AM E DT 03/21/2020 04:22:00 AM [facility] MAGNESIUM MAGNESIUM LEVEL Routine 03/21/2020 12:22 AM EDT 03/21/2020 04:22:00 AM [facility] LIPASE LIPASE LEVEL Routine 03/21/2020 12:22 AM EDT 03/21/2020 04:22:00 AM [facility] LACTATE LACTIC ACID LEVEL, PLASMA Routine 03/21/2020 12:22 AM EDT 03/21/2020 04:22:00 AM [facility] CREATINE KINASE TOTAL CK Routine 03/21/2020 12:22 AM EDT 03/21/2020 04:22:00 AM [facility] COMPREHENSIVE METABOLIC PANEL COMPREHENSIVE METABOLIC PANEL Rou rach 03/21/2020 12:22 AM EDT 03/21/2020 04:22:00 AM EDT [facility] GLUCOSE QUANTITATIVE BLOOD XCPT REAGENT STRIP POCT GLUCOSE, DOC KED Routine 03/21/2020 12:19 AM EDT 03/21/2020 04:19:00 AM [facility] Influenza A+B 12/09/2019 12:00:00 AM EDT eCW1 ([facility]) Office Visit, Est Pt., Level 2 FC 11/14/2019 12:00:00 AM EST eCW1 ([facility]) Office Visit, Est Pt., Level 4 PC 11/14/2019 12:00:00 AM EST eCW1 ([facility]) Office Visit, Est Pt., Level 4 FC 10/24/2019 12:00:00 AM EST eCW1 ([facility]) ELECTROCARDIOGRAM REPORT 10/24/2019 12:00:00 AM EST eCW1 ([facility]) ELECTROCARDIOGRAM TRACING 10/24/2019 12:00:00 AM EST eCW1 ([facility]) REAGENT STRIP/BLOOD GLUCOSE 08/23/2019 12:00:00 AM EST eCW1 ([facility]) Results ID Date Data Source ACETONE/KETONE 10/08/2020 12:00:00 AM EST eCW1 ([facility]) Name Value Range Interpretation Code Description Data Hazel rce(s) Supporting Document(s) 1.04 <2.81 ACETONE/KETONE eCW1 ([facility]) ID Date Data Source ETHYL ALCOHOL (ETHANOL) 10/08/2020 12:00:00 AM EST eCW1 ([facility] Name Value Range Interpretation Code Description Data Hazel rce(s) Supporting Document(s) < 0.003 0.000-0.010 ETHYL ALCOHOL (ETHANOL) eCW1 ([facility]) ID Date Data Source Comprehensive Metabolic Profile (CMP) 10/08/2020 12:00:00 AM EST eCW1 ([facility]) Name Value Range Interpretation Code Description Data Hazel rce(s) Supporting Document(s) 531 70-100 GLUCOSE, FASTING eCW1 ([facility]) 134 136-145 SODIUM LEVEL eCW1 ([facility]) 10 7-18 BLOOD UREA NITROGEN eCW1 ([facility]) 1.20 0.70-1.30 CREATININE FOR GFR eCW1 ([facility]) > 60.0 >56 GLOMERULAR FILTRATION RATE eCW 1 ([facility]) 3.8 3.5-5.1 POTASSIUM SERUM eCW1 ([facility]) 100 98-107 CHLORIDE LEVEL eCW1 ([facility]) 7.8 8.5-10.1 CALCIUM LEVEL eCW1 ([facility]) 31 21-32 CARBON DIOXIDE LEVEL eCW1 ([facility]) 165 45-117 ALKALINE PHOSPHATASE eCW1 ([facility] hospital) 24 12-78 ALT/SGPT eCW1 ([facility]) 0.3 0.2-1.0 BILIRUBIN,TOTAL eCW1 ([facility]) 16 7-37 AST/SGOT eCW1 ([facility]) 1.8 3.2-5.2 ALBUMIN eCW1 ([facility]) 4.7 6.4-8.2 TOTAL PROTEIN eCW1 ([facility]) 0.6 ALBUMIN/GLOBULIN RATIO eCW1 ([facility]) ID Date Data Source C REACTIVE PROTEIN QUANTITATIV (At [facility]) 10/05/2020 12:00 :00 AM EST eCW1 ([facility]) Name Value Range Interpretation Code Description Data Hazel rce(s) Supporting Document(s) 1.05 0.00-0.30 C REACTIVE PROTEIN QUANTI TATIV eCW1 ([facility]) ID Date Data Source MAGNESIUM LEVEL 10/05/2020 12:00:00 AM EST eCW1 ([facility]) Name Value Range Interpretation Code Description Data Hazel rce(s) Supporting Document(s) 1.6 1.8-2.4 MAGNESIUM LEVEL eCW1 ([facility]) ID Date Data Source FERRITIN 10/05/2020 12:00:00 AM EST eCW1 ([facility]) Name Value Range Interpretation Code Description Data Hazel rce(s) Supporting Document(s) 21 26-388 FERRITIN eCW1 ([facility]) ID Date Data Source IRON (FE) 10/05/2020 12:00:00 AM EST eCW1 ([facility]) Name Value Range Interpretation Code Description Data Hazel rce(s) Supporting Document(s) 17 65-175 IRON (FE) eCW1 ([facility]) ID Date Data Source LIPASE 10/05/2020 12:00:00 AM EST eCW1 ([facility]) Name Value Range Interpretation Code Description Data Hazel rce(s) Supporting Document(s) 44 49-393 LIPASE eCW1 ([facility]) ID Date Data Source CBC with Differential 10/05/2020 12:00:00 AM EST eCW1 ([facility]) Name Value Range Interpretation Code Description Data Hazel rce(s) Supporting Document(s) 4.5 4.0-10.0 WHITE BLOOD COUNT eCW1 ([facility]) 3.02 4.30-6.10 RED BLOOD COUNT eCW1 ([facility]) 9.3 13.5-17.5 HEMOGLOBIN eCW1 ([facility]) 94.4 80.0-96.0 MEAN CORPUSCULAR VOLUME e CW1 ([facility]) 28.5 42.0-52.0 HEMATOCRIT eCW1 ([facility]) 30.8 27.0-33.0 MEAN CORPUSCULAR HEMOGLOB IN eCW1 ([facility]) 66.5 36.0-66.0 NEUTROPHILS % eCW1 ([facility]) 15.9 11.5-14.5 RED CELL DISTRIBUTION WID TH eCW1 ([facility]) 32.6 32.0-36.5 MEAN CORPUSCULAR HGB CONC eCW1 ([facility]) 393 150-450 PLATELET COUNT, AUTOMATED eCW1 ([facility]) 1.1 0.0-3.0 EOS % eCW1 ([facility]) 8.2 0.0-5.0 MONO % eCW1 ([facility]) 22.5 24.0-44.0 LYMPH % eCW1 ([facility]) 1.5 0.0-1.0 BASO % eCW1 ([facility]) 1.0 1.5-5.0 LYMPH # eCW1 ([facility]) 3.0 1.5-8.5 NEUTROPHILS # eCW1 ([facility]) 0.1 0.0-0.2 BASO # eCW1 ([facility]) 0.4 0.0-0.8 MONO # eCW1 ([facility]) 0.1 0.0-0.5 EOS # eCW1 ([facility]) ID Date Data Source AMYLASE 10/05/2020 12:00:00 AM EST eCW1 ([facility]) Name Value Range Interpretation Code Description Data Hazel rce(s) Supporting Document(s) 19 25-115 AMYLASE eCW1 ([facility]) ID Date Data Source [id number] 09/19/2020 01:19:00 AM EST [facility] Name Value Range Interpretation Code Description Data Hazel rce(s) Supporting Document(s) SARS coronavirus 2 RNA [Presence] in Res piratory specimen by [facility] with probe detection NEGATIVE [facility] This lab was ordered by [facility] a nd reported by [facility]. 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 restaurant+fLF+dvNKFtJmCKz8iTIAsbS9AyIHfSbtSnevChPR6QxvKkFHKub0KaOwmDsFWdStpBLQRvoJOy6m [file] 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 stack net developer+AoB9sjoBRCpCCjm6NwE1yTvGJEhptQLcxatH1S [file] ICAgICAgICAgICAgICAgICAgICAgICAgICAgICAgICAgICAgICAgICAgICAgICAgICAgICAgICAgDQog ICAgICAgICAgICAgICAgICAgICAgICAgICAgICAgIC AgICAgICAgICAgICAgICAgICAgICAgICAgICAgICAgICAgICAgICAgICAgICAgICAgICAgICAgICAgIC AgICAgICAgDQogICAgICAgICAgICAgICAgICAgICAgICAgICAgICAgICAgICAgICAgICAgICAgICAgIC AgICAgICAgICAgICAgICAgICAgICAgICAgICAgICAg ICAgICAgICAgICAgICAgICAgDQogICAgICAgICAgICAgICAgICAgICAgICAgICAgICAgICAgICAgICAg ICAgICAgICAgICAgICAgICAgICAgICAgICAgICAgICAgICAgICAgICAgICAgICAgICAgICAgICAgICAg DQogICAgICAgICAgICAgICAgICAgICAgICAgICAgIC AgICAgICAgICAgICAgICAgICAgICAgICAgICAgICAgICAgICAgICAgICAgICAgICAgICAgICAgICAgIC AgICAgICAgICAgDQogICAgICAgICAgICAgICAgICAgICAgICAgICAgICAgICAgICAgICAgICAgICAgIC AgICAgICAgICAgICAgICAgICAgICAgICAgICAgICAg ICAgICAgICAgICAgICAgICAgICAgDQogICAgICAgICAgICAgICAgICAgICAgICAgICAgICAgICAgICAg ICAgICAgICAgICAgICAgICAgICAgICAgICAgICAgICAgICAgICAgICAgICAgICAgICAgICAgICAgICAg ICAgDQogICAgICAgICAgICAgICAgICAgICAgICAgIC AgICAgICAgICAgICAgICAgICAgICAgICAgICAgICAgICAgICAgICAgICAgICAgICAgICAgICAgICAgIC AgICAgICAgICAgICAgDQogICAgICAgICAgICAgICAgICAgICAgICAgICAgICAgICAgICAgICAgICAgIC AgICAgICAgICAgICAgICAgICAgICAgICAgICAgICAg ICAgICAgICAgICAgICAgICAgICAgICAgDQogICAgICAgICAgICAgICAgICAgICAgICAgICAgICAgICAg ICAgICAgICAgICAgICAgICAgICAgICAgICAgICAgICAgICAgICAgICAgICAgICAgICAgICAgICAgICAg UETgWITcKUh1C2dhYZMlJSJeBH6xVEm5Xf8+DQoNCm DpNXL0qhIrxF7BTX6yw9SgZBogCUQjl7XtCXb9GL0LKWGuXIpnHC8HCKelwn7TYUJcTMJdjHSVt4dwGy DrVCZ8HEEvHzmmTE8YQCSmO5wsmiAoLVOnCWPLPNceFTULPVriRIGPJDSgIMMxZoBtVaXqHLCwNU0WUN FvA045mcJxAK7AXr7GBaOxXL3zml0XGyKhTJRoTmkR Ewn3VEsxWZ1HeFOgmOPtCCIqCILYClUxH1ukc9FkVnEnJGCTGWypMK5Es4XhpDBhTQr+Cv1OAD4qs7Dn JPiqONVlIT4wyi1TSQrQJiNwZ9YdlTbnNZMdr1pbJQJxRK2cqTReQNC8MK8pAVs2bnjgZyNghgmfUCCt VRVHUtZNECU7IYIpQsP9ZgVmQaXbBEH6JYJrCU0sDE xpLA7CABL8XJnbNCRoALFcA6zLLnXnGWAjJHUwmRuoUF4MGfMuC2XkwxDubKZiWMCcNYOIFo6+DQplbm GxPqmPEuTrRAJqe9OkYYp4EO0WXGTxAXxsSY5XRKZjeS1aCTpdBH6DOnKwNYLhGJEPYdRsU05ljNIlQD e9I8YqBnDyIMGyJcelARVjGNrfZsOgSGSxBhCeRWjd ID4+ID4+DAcbMM3XFRvcepMqKMIyMt3NGTVsRPMfRV0tEJWaCYLhE9L0eZmeFYXVGkMxT9nbbgghAJ0j KLLlA212oAvwjtSmSURfYRLrTe7OLMAaKWS6BNGecMNlGxvzIBAYRIokLH2NcTFhCDX2xG2wNZwiBQHx DNBcF9tWNkMraEdfLB49eYbikrQrsBSdZWm+Pg0KZW 9cc3TeMUp3exHyQHvrOHYjKZnlRBDeCFDhHDMeYNM4QZJ0RUDDDkKgDBIgYVTlXEpdTRQgMJFxbs8LKN NdEJHmSTv1IHLuBQQvMMBmWWvmUHZoSVC6MIVwNXPhXTNoCA2JCtWmRLLbUKZdSTbbLJQhLXLmpf9BCQ LeZGCrQVKeHVWmCJEqMQUyJHykHDRaGSC6KMR0KVIe BOBcCJ2EKfJvHUXwUOn1CmhhZPOvBDWgnd7SHKEbSAZwIyj3REUmCOVhQMTdKEqaYABcFFNdTjW5NWPf IHUmCV4ZKiGyJBElUFB3QQjhXMCdFORmmx7ITSZmPLThDwC7ZvJoMBRzIXWwPRzdFVVkUFW7NQMcKBLf UURzIR4MBjZbVECfPAxmRBiqUMRcWTChfe5BGFJeBM MtOOGfWHGhFKPwYGQcZLmdFNCfUMV6Gco6IVFwBBWxPQ6ZAjSbQXVjLUc6OqQoRGHvZFYmdu7KMBHyLV OdQBa8EQQvZPOvBUGmONuaKODyGTAeUrBrHFPrJZBlCN3TRyOcFXNdNtH6YMLrRVSiBGTuih0QBAXzIQ AyMTEwMyAwMDAwMCBuDQowMDAwMDMyNTMzIDAwMDAw OL5PJiPnTGZeIgZ4LBoyWHYpPMKlwp5BSDUoUJUgHwM8QxIkWLSjFIBtBJhrTJMrMHBvUtG2LGZzXQCy RR0BDcKeGGNmGsU4WqMiERTtSWXdze4DSAUrJAWtLWYrYaJjIJLhSWRiRWvvUFYeVXY2GAw1ELQcUTSt TT0PEsMgZYOvPnI2JhSfXDGbSROwcn8UQHAcQCNyWY N3UPFvMPBwDNNiOQilTZGqABH3DgS8UIRtBNXzSQ1CPgItZRSwVtQ6OyNiDRLaPZNgdk2HAUVtLZQpYk n2EYWaEPWxZWBvRKc8hrBsaNHaWJo5VL3PW1ZdlnLwYxWZGt3Tm898TWBzLIGxKq7PT3uwZv1cBAYrPV JDSi5VXCi9ZBloYWL3VQD9RIHmUeG6WNXsVpFqPaM6 FxNtWTEhI9L+XOarDUE4IrzxEgqqRdN1EYqvMkDwVEC6EFZdALPhYzByZn0wXLRPSo2+DQpzdGFydHhy MHUKExT6AFH8URxhXWKMXa5F ID Date Data Source [id number] 08/22/2020 12:43:00 PM EST [facility] Name Value Range Interpretation Code Description Data Hazel rce(s) Supporting Document(s) SARS coronavirus 2 RNA [Presence] in Res piratory specimen by B[facility]TON with probe detection [facility] This lab was ordered by [facility] a nd reported by [facility]. ID Date Data Source [id number] 07/31/2020 12:17:07 PM EST [facility] Name Value Range Interpretation Code Description Data Hazel rce(s) Supporting Document(s) Progress Note [facility] NWXERb8rZiPRXiJg08/JMSwxMKPuu8XtLJujKSv7FQegTZWzF8OrXZZ3eM1sRPW9ZGsUCmLaMuMnAIMy m [file] RTLvZjC3GOGtDqWuSEO+BV6aTLx+Aa5Qm7CyxdM9whDmWRsuYtUxSO2PRFNIU2IBHb== ID Date Data Source [id number] 07/13/2020 02:25:35 PM [facility] Current Medications: BD INSULIN SYR ULTR AFINE II 31G X 5/16" 0.3 ML (INSULIN SYRINGE-NEEDLE U-100) TRAMADOL HCL 50 MG ORAL TABLET (TRAMADOL HCL) ; Route: ORAL* ATENOLOL * [facility] Dental Chart: Procedures:Type - CDT Code - Description B - (D2222) No Charge Visit (Performed by Sae Slaughter DDS) Chart Notes:luciana (Jul 13 2020 4:05PM): Pt presents for adjustment of mandibular denture, adjusted-wnl. Temperature: 97.0 passed COVID questionaireAdditional PPE were used due to COVID-19. This included a minimum of a N95, a surgical mask, a hair covering, a face shield, proctective eyewear, and a gown.Nv: adjustment as neededSae Slaughter DDS by luciana (07/13/2020 4:05 PM): Tooth Notes and Watches: Assessment & Plan Medications:BD INSULIN SYR ULTRAFINE II 31G X 01/24" 0.3 MLTRAMADOL HCL 50 MG ORAL TABLETATENOLOLGLUCAPHAGE Name Value Range Interpretation Code Description Data Hazel rce(s) Supporting Document(s) ID Date Data Source [id number] 05/13/2020 03:14:01 PM [facility] Name Value Range Interpretation Code Description Data Hazel rce(s) Supporting Document(s) Progress Note [facility] LVFNIa5aRbVMCiTx27/LAPcsJZTxc6QtEVbpSWg5HWgzMNNxK2QtHZG5pF8cWWJ0EMeIUbYkQiRcOCIw lbm [file] GmDmHO6FISl= ID Date Data Source [id number] 04/30/2020 12:48:34 PM EDT [facility] Current Medications: BD INSULIN SYR ULTR AFINE II 31G X 5/16" 0.3 ML (INSULIN SYRINGE-NEEDLE U-100) TRAMADOL HCL 50 MG ORAL TABLET (TRAMADOL HCL) ; Route: ORAL* ATENOLOL * [facility] Dental Chart: Procedures:Type - CDT Code - Description B - (D5110) Complete denture - maxillary on Tooth # 1,2,3,4,5,6,7,8,9,10,11,12,13,14,15,16 (Performed by Sae Slaughter DDS) B - (D5120) Complete denture - mandibular on Tooth # 17,18,19,20,21,22,23,24,25,26,27,28,29,30,31,32 (Performed by Sae Slaughter DDS) Chart Notes:luciana (Apr 30 2020 1:40PM): Pt presents for delivery of maxi llary and mandubular denture. Pt is happy with look and feel of dentures. nO sore spots.Went over verbal instruction care.Temperature: 97.1 passed COVID questionaireAdditional PPE were used due to COVID-19. This included a minimum of a N95, a surgical mask, a hair covering, a face shield, proctective eyewear, and a gown.Nv: adjustment as neededSae Slaughter DDS by luciana (04/30/2020 1:40 PM): Tooth Notes and Watches: Assessment & Plan Medications:BD INSULIN SYR ULTRAFINE II 31G X 01/24" 0.3 MLTRAMADOL HCL 50 MG ORAL TABLETATENOLOLGLUCAPHAGE Name Value Range Interpretation Code Description Data Hazel rce(s) Supporting Document(s) ID Date Data Source [id number] 03/28/2020 07:03:33 PM EDT [facility] Name Value Range Interpretation Code Description Data Hazel rce(s) Supporting Document(s) Discharge Summary [facility] [id number]xOjR1 lbm [file] [id number]= ID Date Data Source [id number] 03/27/2020 12:29:26 PM [facility] Name Value Range Interpretation Code Description Data Hazel rce(s) Supporting Document(s) Glucose [Mass/volume] in Capillary blood by Glucometer 85 mg/dL 70- 140 [facility] ID Date Data Source [id number] 03/27/2020 11:51:15 AM EDT [facility] Name Value Range Interpretation Code Description Data Hazel rce(s) Supporting Document(s) Consultation [facility] [id number] lbm [file] [id number]+[id number]NzTI9JLEt= ID Date Data Source [id number] 03/27/2020 08:59:40 AM EDT [facility] Name Value Range Interpretation Code Description Data Hazel rce(s) Supporting Document(s) Glucose [Mass/volume] in Capillary blood by Glucometer 208 mg/dL 70- 140 H [facility] ID Date Data Source [id number] 03/27/2020 08:40:39 AM EDT [facility] Name Value Range Interpretation Code Description Data Hazel rce(s) Supporting Document(s) Progress Note [facility] [id number]AJ7hD1wVNN2NFoNYzZoLkXfJpE9 lbm [file] [id number]/JZDa+p2Msu27lNaBowT2aGOp9A+5Bwq9+r9HmhLG2Q/Martín+ztmy0uoZSYoeni3ij TLOrBU1wz+5+pLg9hMESotpkY0h6hi2AAROg9G/gonsalo [file] [id number]= ID Date Data Source [id number] 03/27/2020 04:21:21 AM [facility] Name Value Range Interpretation Code Description Data Hazel rce(s) Supporting Document(s) Bicarbonate [Moles/volume] in Serum 27 mmol/L 22-29 [facility] Chloride [Moles/volume] in Serum or Plasma 99 mmol/L 98-107 [facility] Creatinine [Mass/volume] in Serum or Plasma 1.10 mg/dL 0.70-1.20 [facility] Glucose [Mass/volume] in Serum or Plasma 186 mg/dL 70-140 H [facility] Potassium [Moles/volume] in Serum or Plasma 3.5 mmol/L 3.4-5.1 [facility] Sodium [Moles/volume] in Serum or Plasma 137 mmol/L 136-145 [facility] Urea nitrogen [Mass/volume] in Serum or Plasma 6 mg/dL 6-20 [facility] Anion gap 3 in Serum or Plasma 11 mmol/L 8-15 [facility] Osmolality of Serum or Plasma by calculation 286 mosm/kg 275-300 [facility] Creatinine/Urea nitrogen [Mass Ratio] in Serum or Plasma 6 [facility] Calcium [Mass/volume] in Serum or Plasma 8.4 mg/dL 8.6-10.0 L [facility] Glomerular filtration rate/1.73 sq M pre dicted among non-blacks [Volume Rate/Area] in Serum or Plasma by Creatinine-based formula (MDRD) 74 mL/min/1.73m2 >60 [facility] Glomerular filtration rate/1.73 sq M pre dicted among blacks [Volume Rate/Area] in Serum or Plasma by Creatinine-based formula (MDRD) 86 mL/min/1.73m2 >60 [facility] ID Date Data Source [id number] 03/27/2020 04:21:41 AM [facility] Value Range Interpretation Code Description Data Hazel rce(s) Supporting Document(s) Leukocytes [#/volume] in Blood by Automated count 3.9 10*3/uL 4-10 L [facility] Erythrocytes [#/volume] in Blood by Automated count 3.23 10*6/uL 4.6- 6.1 L [facility] Hemoglobin [Mass/volume] in Blood 10.3 g/dL 13.5-18 L [facility] Hematocrit [Volume Fraction] of Blood by Automated count 30.6 % 4 1-53 L [facility] Erythrocyte mean corpuscular volume [Entitic volume] by Auto mated count 94.8 fL 80-96 [facility] Erythrocyte mean corpuscular hemoglobin [Entitic mass] by Automated count 32.0 pg 27-33 [facility] Erythrocyte mean corpuscular hemoglobin concentration [Mass/volume] by Automated count 33.7 g/dL [facility].0-[facility] width [Ratio] by Automated count 16.6 % 11.5-14.5 H [facility] Platelets [#/volume] in Blood by Automated count 228 10*3/uL 150-400 [facility] Differential cell count method - Blood [facility] Neutrophils/100 leukocytes in Blood by Automated count 36 % [facility] Lymphocytes/100 leukocytes in Blood by Automated count 47 % [facility] Monocytes/100 leukocytes in Blood by Automated count 8 % [facility] Eosinophils/100 leukocytes in Blood by Automated count 8 % [facility] Basophils/100 leukocytes in Blood by Automated count 1 % [facility] Neutrophils [#/volume] in Blood by Automated count 1.39 10*3/uL 1.8-7 .0 L [facility] Lymphocytes [#/volume] in Blood by Automated count 1.83 10*3/uL 1.2-4 .0 [facility] Monocytes [#/volume] in Blood by Automated count 0.32 10*3/uL 0-0.8 [facility] Eosinophils [#/volume] in Blood by Automated count 0.31 10*3/uL 0-0.5 [facility] Basophils [#/volume] in Blood by Automated count 0.05 10*3/uL 0-0.2 [facility] Nucleated erythrocytes/100 leukocytes [Ratio] in Blood by Automated count 0 /100{WBCs} 0-0 [facility] ID Date Data Source [id number] [facility] Interpretation Code Description Data Hazel rce(s) Supporting Document(s) Glucose [Mass/volume] in Capillary blood by Glucometer 272 mg/dL 70- 140 H [facility] ID Date Data Source [id number] 03/26/2020 10:32:38 PM [facility] Name Value Range Interpretation Code Description Data Hazel rce(s) Supporting Document(s) Glucose [Mass/volume] in Capillary blood by Glucometer 253 mg/dL 70- 140 H [facility] ID Date Data Source [id number] 03/26/2020 05:04:06 PM [facility] Name Value Range Interpretation Code Description Data Hazel rce(s) Supporting Document(s) Glucose [Mass/volume] in Capillary blood by Glucometer 170 mg/dL 70- 140 H [facility] ID Date Data Source [id number] 03/26/2020 04:15:50 PM [facility] CT ENTEROGRAPHY [id number] RESULTInterpr eted by:Estelle Chen MDINDICATION: Abdominal pain, gastrointestinal hemorrhage.TECHNIQUE: Multidetector CT images were obtained from the domes of the diaphragm to the iliac crests and from the iliac crests to the greater trochanters with intravenous contrast. Oral contrast was administered. Coronal and sagittal images were reconstructed from the axial data. Automated dose lowering techniques and/or adjustment according to patient size were utilized for this exam.COMPARISON: 03/21/2020.FINDINGS:Lungs: Atelectatic changes are noted in the lung bases.Bones: Mild degenerative changes are noted in the spine. Mild anterior wedging of the T11 vertebral body. Prominent Schmorl's node in the superior endplate of L4. Surgical hardware is transfixing the right acetabulum and posterior iliac bone. Mild dextroscoliosis of the thoracolumbar spine is seen. Multiple small lucencies are noted in the posterior iliac bones, most likely related to osteopenia. Multiple old unfused left rib fractures are seen. No focal suspicious osseous lesion is seen.Body wall: Surgical clips are noted along the anterior abdominal wall.Vasculature: Atherosclerotic vascular calcif ications are noted within the aorta. No aortic aneurysm is seen. Infrarenal IVC filter is seen. The proximal tip of the IVC filter is noted along the medial posterior wall of the IVC with a tilted appearance, unchanged.Liver: Subcentimeter hypodense lesions in segment 5 are too small to characterize.Gallbladder: The gallbladder is surgically absent. Biliary Ducts: No biliary ductal dilatation is seen.Spleen: Unremarkable.Pancreas: Hypoechoic lesion measuring greater than fluid density is noted in the pancreatic head/uncinate process measuring 2.0 x 3.2 cm. There is upstream pancreatic atrophy and pancreatic ductal dilatation measuring up to 4 mm.Adrenal Glands:Right:Unremarkable.Left: Unremarkable.Kidneys:Right: No focal renal lesion is seen. Lobulated contour is seen. No renal or ureteral calculi are seen. No hydronephrosis or hydroureter is seen.Left: 1.2 cm cyst in the midpole. Additional subcentimeter hypoattenuating lesions are too small to characterize. Lobulated contour is seen. No renal or ureteral calculi are seen. No hydronephrosis or hydroureter is seen.Bowel: Small hiatal hernia seen. Patient is status post Rex-en-Y gastric bypass. The bowel is nondilated without evidence for bowel obstruction. A moderate amount of stool is noted in the colon. The appendix is visualized and is unremarkable. Peritoneum: There is no intraabdominal or pelvic ascites. No evidence for free air. Lymph nodes: Surgical clips are noted in the inguinal fossa bilaterally.No pathologically enlarged lymphadenopathy is seen.In the pelvis, The prostate gland does not appear enlarged. The seminal vesicles are symmetric. Bladder is only partially distended. Circumferential bladder wall prominence is appreciated.IMPRESSION:1. Small bowel loops are normal in caliber. No bowel wall thickening or mesenteric inflammatory stranding is appreciated.2. Splenic flexure of the colon is air- filled and measures at the upper limits of normal, otherwise the colon is normal in caliber.3. Moderate colonic stool load.4. Persistent hypoechoic lesion in the pancreatic head/uncinate process with upstream pancreatic atrophy and pancreatic ductal dilatation. This is unchanged and most likely reflects the patient's known pancreatic neoplasm.5. Circumferential bladder wall prominence is noted, likely related to incomplete distention. Superimposed cystitis cannot be excluded. Correlate with urinalysis.6. Additional stable findings are noted above.This document has been electronically signed by Estelle Chen MD on 03/26/2020 4:13 PM Name Value Range Interpretation Code Description Data Hazel rce(s) Supporting Document(s) ID Date Data Source [id number] 03/26/2020 02:32:32 PM EDT [facility] Name Value Range Interpretation Code Description Data Hazel [facility](s) Supporting Document(s) Consultation [facility] [id number] lbm [file] glass frame fitter+[id number]/CIdtFkuyR034uNRTmqI+SILAaRHK1cmDPuRIaNFfX44f0VjBcAfzOIDLDvQGaLUk0F [file] [id number]+ICpslNFjjKmuBFVQUcO0IQA2TIkmTHBLUn3V ID Date Data Source [id number] 03/26/2020 12:44:13 PM [facility] Name Value Range Interpretation Code Description Data Hazel rce(s) Supporting Document(s) Glucose [Mass/volume] in Capillary blood by Glucometer 198 mg/dL 70- 140 H [facility] ID Date Data Source [id number] 03/26/2020 01:02:03 PM [facility] Name Value Range Interpretation Code Description Data Hazel rce(s) Supporting Document(s) Leukocytes [#/volume] in Blood by Automated count 2.9 10*3/uL 4-10 L [facility] Erythrocytes [#/volume] in Blood by Automated count 2.70 10*6/uL 4.6- 6.1 L [facility] Hemoglobin [Mass/volume] in Blood 8.7 g/dL 13.5-18 L [facility] Hematocrit [Volume Fraction] of Blood by Automated count 25.7 % 4 1-53 L [facility] Erythrocyte mean corpuscular volume [Entitic volume] by Auto mated count 95.1 fL 80-96 [facility] Erythrocyte mean corpuscular hemoglobin [Entitic mass] by Automated count 32.3 pg 27-33 [facility] Erythrocyte mean corpuscular hemoglobin concentration [Mass/volume] by Automated count 34.0 g/dL 32.0-36.0 [facility] distribution width [Ratio] by Automated count 16.9 % 11.5-14.5 H [facility] Platelets [#/volume] in Blood by Automated count 178 10*3/uL 150-400 [facility] Differential cell count method - Blood [facility] Neutrophils/100 leukocytes in Blood by Automated count 47 % [facility] Lymphocytes/100 leukocytes in Blood by Automated count 35 % [facility] Monocytes/100 leukocytes in Blood by Automated count 12 % [facility] Eosinophils/100 leukocytes in Blood by Automated count 5 % [facility] Basophils/100 leukocytes in Blood by Automated count 1 % [facility] Neutrophils [#/volume] in Blood by Automated count 1.37 10*3/uL 1.8-7 .0 L [facility] Lymphocytes [#/volume] in Blood by Automated count 1.01 10*3/uL 1.2-4 .0 [facility] Monocytes [#/volume] in Blood by Automated count 0.35 10*3/uL 0-0.8 [facility] Eosinophils [#/volume] in Blood by Automated count 0.16 10*3/uL 0-0.5 [facility] Basophils [#/volume] in Blood by Automated count 0.03 10*3/uL 0-0.2 [facility] Nucleated erythrocytes/100 leukocytes [Ratio] in Blood by Automated count 0 /100{WBCs} 0-0 [facility] ID Date Data Source [id number] 03/26/2020 09:06:35 AM [facility] Name Value Range Interpretation Code Description Data Hazel rce(s) Supporting Document(s) Glucose [Mass/volume] in Capillary blood by Glucometer 198 mg/dL 70- 140 H [facility] ID Date Data Source [id number] 03/26/2020 05:00:55 AM [facility] Name Value Range Interpretation Code Description Data Hazel rce(s) Supporting Document(s) Leukocytes [#/volume] in Blood by Automated count 3.8 10*3/uL 4-10 L [facility] Erythrocytes [#/volume] in Blood by Automated count 2.82 10*6/uL 4.6- 6.1 L [facility] Hemoglobin [Mass/volume] in Blood 9.0 g/dL 13.5-18 L [facility] Hematocrit [Volume Fraction] of Blood by Automated count 26.9 % 4 1-53 L [facility] Erythrocyte mean corpuscular volume [Entitic volume] by Auto mated count 95.2 fL 80-96 [facility] Erythrocyte mean corpuscular hemoglobin [Entitic mass] by Automated count 31.8 pg 27-33 [facility] Erythrocyte mean corpuscular hemoglobin concentration [Mass/volume] by Automated count 33.4 g/dL 32.0-36.0 [facility]th[facility] distribution width [Ratio] by Automated count 16.9 % 11.5-14.5 H [facility] Platelets [#/volume] in Blood by Automated count 176 10*3/uL 150-400 [facility] Differential cell count method - Blood [facility] Neutrophils/100 leukocytes in Blood by Automated count 49 % [facility] Lymphocytes/100 leukocytes in Blood by Automated count 35 % [facility] Monocytes/100 leukocytes in Blood by Automated count 9 % [facility] Eosinophils/100 leukocytes in Blood by Automated count 6 % [facility] Basophils/100 leukocytes in Blood by Automated count 1 % [facility] Neutrophils [#/volume] in Blood by Automated count 1.86 10*3/uL 1.8-7 .0 [facility] Lymphocytes [#/volume] in Blood by Automated count 1.35 10*3/uL 1.2-4 .0 [facility] Monocytes [#/volume] in Blood by Automated count 0.36 10*3/uL 0-0.8 [facility] Eosinophils [#/volume] in Blood by Automated count 0.24 10*3/uL 0-0.5 [facility] Basophils [#/volume] in Blood by Automated count 0.04 10*3/uL 0-0.2 [facility] Nucleated erythrocytes/100 leukocytes [Ratio] in Blood by Automated count 0 /100{WBCs} 0-0 [facility] ID Date Data Source [id number] 03/26/2020 05:12:31 AM EDT [facility] Name Value Range Interpretation Code Description Data Hazel rce(s) Supporting Document(s) Bicarbonate [Moles/volume] in Serum 26 mmol/L 22-29 [facility] Chloride [Moles/volume] in Serum or Plasma 97 mmol/L 98-107 L [facility] Creatinine [Mass/volume] in Serum or Plasma 0.97 mg/dL 0.70-1.20 [facility] Glucose [Mass/volume] in Serum or Plasma 183 mg/dL 70-140 H [facility] Potassium [Moles/volume] in Serum or Plasma 3.4 mmol/L 3.4-5.1 [facility] Sodium [Moles/volume] in Serum or Plasma 132 mmol/L 136-145 L [facility] Urea nitrogen [Mass/volume] in Serum or Plasma 5 mg/dL 6-20 [facility] Anion gap 3 in Serum or Plasma 10 mmol/L 8-15 [facility] Osmolality of Serum or Plasma by calculation 276 mosm/kg 275-300 [facility] Creatinine/Urea nitrogen [Mass Ratio] in Serum or Plasma 5 [facility] Calcium [Mass/volume] in Serum or Plasma 7.7 mg/dL 8.6-10.0 L [facility] Glomerular filtration rate/1.73 sq M pre dicted among non-blacks [Volume Rate/Area] in Serum or Plasma by Creatinine-based formula (MDRD) >6 0 [facility] Glomerular filtration rate/1.73 sq M pre dicted among blacks [Volume Rate/Area] in Serum or Plasma by Creatinine-based formula (MDRD) >60 [facility] ID Date Data Source [id number] 03/25/2020 10:10:13 PM [facility] Value Range Interpretation Code Description Data Hazel rce(s) Supporting Document(s) Glucose [Mass/volume] in Capillary blood by Glucometer 176 mg/dL 70- 140 H [facility] ID Date Data Source [id number] 03/25/2020 09:23:03 PM EDT [facility] Name Value Range Interpretation Code Description Data Hazel rce(s) Supporting Document(s) Glucose [Mass/volume] in Capillary blood by Glucometer 102 mg/dL 70- 140 [facility] ID Date Data Source [id number] 03/25/2020 10:31:20 PM [facility] Value Range Interpretation Code Description Data Hazel rce(s) Supporting Document(s) Leukocytes [#/volume] in Blood by Automated count 4.7 10*3/uL 4-10 [facility] Erythrocytes [#/volume] in Blood by Automated count 2.70 10*6/uL 4.6- 6.1 L [facility] Hemoglobin [Mass/volume] in Blood 8.7 g/dL 13.5-18 L [facility] Hematocrit [Volume Fraction] of Blood by Automated count 26.4 % 4 1-53 L [facility] Erythrocyte mean corpuscular volume [Entitic volume] by Auto mated count 97.9 fL 80-96 H [facility] Erythrocyte mean corpuscular hemoglobin [Entitic mass] by Automated count 32.3 pg 27-33 [facility] Erythrocyte mean corpuscular hemoglobin concentration [Mass/volume] by Automated count 33.0 g/dL 32.0-36.0 [facility] E[facility]th[facility] distribution width [Ratio] by Automated count 17.0 % 11.5-14.5 H [facility] Platelets [#/volume] in Blood by Automated count 180 10*3/uL 150-400 [facility] Differential cell count method - Blood [facility] Neutrophils/100 leukocytes in Blood by Automated count 65 % [facility] Lymphocytes/100 leukocytes in Blood by Automated count 30 % [facility] Monocytes/100 leukocytes in Blood by Automated count 2 % [facility] Eosinophils/100 leukocytes in Blood by Automated count 3 % [facility] Neutrophils [#/volume] in Blood by Automated count 3.09 10*3/uL 1.8-7 .0 [facility] Lymphocytes [#/volume] in Blood by Automated count 1.39 10*3/uL 1.2-4 .0 [facility] Monocytes [#/volume] in Blood by Automated count 0.09 10*3/uL 0-0.8 [facility] Eosinophils [#/volume] in Blood by Automated count 0.14 10*3/uL 0-0.5 [facility] Anisocytosis [Presence] in Blood by Light microscopy [facility] ID Date Data Source [id number] 03/25/2020 09:17:52 PM [facility] Value Range Interpretation Code Description Data Hazel rce(s) Supporting Document(s) Glucose [Mass/volume] in Capillary blood by Glucometer 69 mg/dL 70- 140 L [facility] ID Date Data Source [id number] 03/25/2020 05:28:47 PM [facility] Value Range Interpretation Code Description Data Hazel rce(s) Supporting Document(s) Glucose [Mass/volume] in Capillary blood by Glucometer 254 mg/dL 70- 140 H [facility] ID Date Data Source [id number] 03/25/2020 12:55:23 PM [facility] Name Value Range Interpretation Code Description Data Hazel rce(s) Supporting Document(s) Glucose [Mass/volume] in Capillary blood by Glucometer 161 mg/dL 70- 140 H [facility] ID Date Data Source [id number] 03/25/2020 12:59:01 PM [facility] Name Value Range Interpretation Code Description Data Hazel rce(s) Supporting Document(s) Leukocytes [#/volume] in Blood by Automated count 4.1 10*3/uL 4-10 [facility] Erythrocytes [#/volume] in Blood by Automated count 2.88 10*6/uL 4.6- 6.1 L [facility] Hemoglobin [Mass/volume] in Blood 9.0 g/dL 13.5-18 L [facility] Hematocrit [Volume Fraction] of Blood by Automated count 27.4 % 4 1-53 L [facility] Erythrocyte mean corpuscular volume [Entitic volume] by Auto mated count 95.2 fL 80-96 [facility] Erythrocyte mean corpuscular hemoglobin [Entitic mass] by Automated count 31.4 pg 27-33 [facility] Erythrocyte mean corpuscular hemoglobin concentration [Mass/volume] by Automated count 33.0 g/dL 32.0-36.0 [facility] E[facility] distribution width [Ratio] by Automated count 16.9 % 11.5-14.5 H [facility] Platelets [#/volume] in Blood by Automated count 158 10*3/uL 150-400 [facility] Differential cell count method - Blood [facility] Neutrophils/100 leukocytes in Blood by Automated count 56 % [facility] Lymphocytes/100 leukocytes in Blood by Automated count 30 % [facility] Monocytes/100 leukocytes in Blood by Automated count 9 % [facility] [facility] Eosinophils/100 leukocytes in Blood by Automated count 4 % [facility] Basophils/100 leukocytes in Blood by Automated count 1 % [facility] Neutrophils [#/volume] in Blood by Automated count 2.28 10*3/uL 1.8-7 .0 [facility] Lymphocytes [#/volume] in Blood by Automated count 1.22 10*3/uL 1.2-4 .0 [facility] Monocytes [#/volume] in Blood by Automated count 0.37 10*3/uL 0-0.8 [facility] Eosinophils [#/volume] in Blood by Automated count 0.18 10*3/uL 0-0.5 [facility] Basophils [#/volume] in Blood by Automated count 0.03 10*3/uL 0-0.2 [facility] Nucleated erythrocytes/100 leukocytes [Ratio] in Blood by Automated count 0 /100{WBCs} 0-0 [facility] ID Date Data Source [id number] 03/25/2020 09:36:35 AM EDT [facility] Name Value Range Interpretation Code Description Data Hazel rce(s) Supporting Document(s) History and Physical [facility] PCPNYy2mMhPOFnYf15/HKQceGHKig2KoBOriOIk9UDpnOWGrB0KnVSC2aA5vEGA0DQfFKxSpJkKkQrP7 lbm [file] [employer]+Wd6KEYFaFDp2B9N3NBTeFOa7P8FPZ1TJDFRmJKwyRImmOGQnNWs5S8E8YQPlK9EEK8Xtdfmrpf0+ MU9DM82HIRIeYEz4N1F7bFQrY1H7yHyVyEO2RS3OSC2PiZk8lBYupZ2+JI1UZ6PMTxNoNWs4B3N0mPYv N8S2vMyLmOT0LY3POH1JiBLeCEHjwyKnAs0yT6YUPR yVAbRUDXF3NP0TtLKaTI2TyUZNM2HrkARkZx7oSEsuqAJhfN9qEu7jFArwWC5DVhZATGwMGKI1SC6BhX QjVD6NfWPQD6QgmUDmOx6vFMavrHIhgu9+SN2UGMUtQb3TRp7+NNgmhfGmUhjZJrN4KZBzv3BrHNd1WY 8XYZ6ulYjaKEN3Wj5SbSN3dXNtM9jPWA7PkSAoX82q eLAmKNDhDn6FOpB8hcQycR1OZW52kYTsb7V8SFEzN3dwHFlef64mMSdmASzTZI2cQRDMDPdzCXpjJAR4 XsHglmirNQVfZn8TEiLxNSz9fH0rzXH4OCB2IxjgcQGmTZyfEjJyRuXpGdJ7nGonvvw8VZohZH3gPPgq czptZXRhLyc+HBdbXFOnKBIcWslFGYScqX2avbY3wf ZbYNktzXOrPu6xh3i3RxawFz5fPt0aWPo0DwOaYfQbHGCtUw0rcP01ZSylxoYjQm4LRgFwONU0X3RrEw pSREY+IOrjXZhvfJs4dXLpWTMpEt7AOENqSQKqDGRnGCNqWHEbZEDvLTHwRGCwLRJtHDKzUMIuFNUrLN AgICAgICAgICAgICAgICAgICAgICAgICAgICAgICAg RAPlYQSpGZLzPVZwVHYqHSDoBIWzDAFsXXVdQGQbIE1VMGToLWKhNGGlXENdONJiPVYeRORuMXWfGBPu ICAgICAgICAgICAgICAgICAgICAgICAgICAgICAgICAgICAgICAgICAgICAgICAgICAgICAgICAgICAg QQLvFRTyOPKpAJVnQA0KWKAiYDVfSUGxPFWiMNOiCI AgICAgICAgICAgICAgICAgICAgICAgICAgICAgICAgICAgICAgICAgICAgICAgICAgICAgICAgICAgIC WmAZIuZMRpYHUwYFDeKQWfYTRqYFOxUG7RPSVeFRWbDXSgHIYgFIMgOGYcQIBhLOSwUNGeNCCkANKsCW AgICAgICAgICAgICAgICAgICAgICAgICAgICAgICAg AETfQGNdBURgLOZgTBVqJZPpPQKwQCHySFDaDFNyAJOxZZ8MWXBoFPKwESTaBQAfTLXrEYPcEQCuFWBg ICAgICAgICAgICAgICAgICAgICAgICAgICAgICAgICAgICAgICAgICAgICAgICAgICAgICAgICAgICAg QUGpAOJyISBnCVTkOSCrXU8BJSOfPNIdEQCvPMWbCT AgICAgICAgICAgICAgICAgICAgICAgICAgICAgICAgICAgICAgICAgICAgICAgICAgICAgICAgICAgIC VxNLJrKBTgHMFxHZGnIWOrOFOiUJFvTEBxGA8HZICjRYNhTCUsNHVkUOHkJJRsWWYdJHXgIXTkYVXfZU AgICAgICAgICAgICAgICAgICAgICAgICAgICAgICAg TLIkQRFjWTYvHXEmVGOaMGKsVOOdAEBhEGMiFINuNPAzHUPgEQ1DKXPdJNMiLCDzGAZcHCEiSAZnESOs ICAgICAgICAgICAgICAgICAgICAgICAgICAgICAgICAgICAgICAgICAgICAgICAgICAgICAgICAgICAg ENIeUJXdJRIhIVVgLIYwBFLpLC2JVXVwHNUxKWDdWJ AgICAgICAgICAgICAgICAgICAgICAgICAgICAgICAgICAgICAgICAgICAgICAgICAgICAgICAgICAgIC NpVPVfJXFtJTWeURUsNQInYVLjSUFuZABbNOYvHM5IGFQiHPRmCNGmJMXqUPMmNZTpHPPqLUPrZCLbDH AgICAgICAgICAgICAgICAgICAgICAgICAgICAgICAg KLYqTMWzGKUwJSJcLRIrSNKfJEBfGBFpLBOoMZBqGLHkMOElOTOmOY1TXE08kQPrc6J3BIJcKF6xvwv/ Mm7SAGhkmsRnaRBiLT4VDlXiBO0lqy2GQpPpUZ5iqp5QQBuMXmNkZ9U0uBCgCKVdVUCAGyBrM71cFErx Gt96QNalVVArJlZzTHs2Gd6POsFkH3jiNGXwOeC2CQ VuJbA5HBVzUgD2RIDwVjEkXKlcDN5St0CcjNDeIGs+At3HEP7xy1CiNXfkBtYrYM5fii7SMTlRUcBfR5 OwvoL6KZO3PNViRw2KSGBqUZMxxZXsJeTzQBMHEzRvF2FelV27RJXQDa0+ODmzuuEoGunIUqC0VWUzs5 OtEPq8FE8YEAReJYp5pFPmKVYBQOX1IG08ipckS8hi PS9xWP6NFPY8OYayQMLoXlXuIYRyCZlwLQJNMIbHBxNkT4Wbq8GvJeR1VLAhNbWiUOnrFXPhHwH2PF62 bAvqNH2BOLQsOZGxZA92PNG0ESDrWn0TNc1YZsXwFA9srt7HHbrmWYOeDleDNnv4VVejGP8ZhBDeC5Il zEBoq3lFUgLnD0ARNKQ1LHEkPy8XWNQoSwMkJXWiKC vnBH2uBIBsUZCItRjkgbN8ZX9SES4wypZyHT2ZFuNsIg4vVc8JEhYmD4BeT0NiPWQoITDKVJtfPZ2YML jfEO9bAQ0Xy7VNiROxdZ5otr5ECJFgULCsDgjeel3AXcpjD1V3jYfqJFOdUkUvFSAWMEtoJG8DFVPuFW Z0AGKaENScEQPKCtHbN26hDF2WL7Wrl85lJoN0LXBm BoVwQDtdKJ55vOmpiwBfpXKzfRhlIA5UOf5+DQplbmRvYmoNCnhyZWYNCjAgMjkNCjAwMDAwMDAwMDAg EaO5AyRdRs6AYXSeCRBiROKrOnDjCWYhSPNxKRpqBJSgMAP4UiA4GMHnEAXuOJ5IYfXeSDZrNwpsQWHb JAByRHWzkd1DGGCaPMVgAYC4ZcSpHIUlHOFnGQwfHI PvKITgGkJfWKLzFNIoVR5AUmQhDAXiPFE5HmSqYFZuPRRjot3HYVGwSTPuXaE6MaSeFAHgXEZcJWphES QxTNT2JZd6ANBzVUXjHL4XLxZgVESkAWiaEUkjTKZnJEHdxg0QQGSnDDMeZJVtICNhYDFiQJEbXEomLS JjNBSwHlWjPVEkDTNtPD0XXcDvQZKlYUI4UVgvEAEm RXMgtq7NLDRtJPEwTEE0YXYxGPItPMNrNMnwWPDeQSHdEjXgMQQuUTRfSN6MPpNiJYYaGNA0NAWvMMOa ZHVaoh4OMACiPNGrDTn3WDQiEPGvKNOwQQxkSDMfWXViCeo7HIRhHITdMF9TTfDjRJTvJbR3LNOvKNEp QPSsvf0FWXYaIESuQvlyVxQrAFOhGWWeCQwcZZGiHU V2MYMrUTHdEGAnQC6PNuMfDDGqRgMjLYwjEWSeYAGxpt1SUEEjKKEdXHQeUQEqQEZcZJSoWKqtQKAwDE S4NLA4WRNlYNMoFB2ZSyXzCHJzFhC8QHbcMPRiPEIowb5KCFVhKEUcMcVyXPEjKXZbVJRaQTxvMUBmTK M4QWG3VJBnYKIlOA5IIlGoKAYvDfb0QaAdPPToNMYt be0RZQNgMRIeYfS6ZVVlNSPzKKOsDNh3obUszHFlNVe3HQ1SO5GpbgLyTuwCDe7Mg899WSS5JVPvCq5T K8zdYs4tLZVnQSMZZd1NJCu4MQcoPQIdIAU2PBJoGJE0VUVvP1C0UoDlE9YoHxHjZDA+IDxlOWRkZGE4 FAq6JMUsLbR2KAIoYOgfBSZfUFRmRQCiJu3rFGVRQu9+JRjgxOMoyTajDJXSWnV9NWQbOBjuKCLBPx5Y ID Date Data Source [id number] 03/25/2020 03:27:07 AM EDT [facility] Name Value Range Interpretation Code Description Data Hazel e(s) Supporting Document(s) Leukocytes [#/volume] in Blood by Automated count 4.6 10*3/uL 4-10 [facility] Erythrocytes [#/volume] in Blood by Automated count 3.24 10*6/uL 4.6- 6.1 L [facility] Hemoglobin [Mass/volume] in Blood 10.3 g/dL 13.5-18 L [facility] Hematocrit [Volume Fraction] of Blood by Automated count 30.9 % 4 1-53 L [facility] Erythrocyte mean corpuscular volume [Entitic volume] by Auto mated count 95.3 fL 80-96 [facility] Erythrocyte mean corpuscular hemoglobin [Entitic mass] by Automated count 31.7 pg 27-33 [facility] Erythrocyte mean corpuscular hemoglobin concentration [Mass/volume] by Automated count 33.3 g/dL [facility].0-36.[facility] width [Ratio] by Automated count 17.3 % 11.5-14.5 H [facility] Platelets [#/volume] in Blood by Automated count 185 10*3/uL 150-400 [facility] Differential cell count method - Blood [facility] Neutrophils/100 leukocytes in Blood by Automated count 50 % [facility] Lymphocytes/100 leukocytes in Blood by Automated count 34 % [facility] Monocytes/100 leukocytes in Blood by Automated count 9 % [facility] Eosinophils/100 leukocytes in Blood by Automated count 6 % [facility] Basophils/100 leukocytes in Blood by Automated count 1 % [facility] Neutrophils [#/volume] in Blood by Automated count 2.31 10*3/uL 1.8-7 .0 [facility] Lymphocytes [#/volume] in Blood by Automated count 1.55 10*3/uL 1.2-4 .0 [facility] Monocytes [#/volume] in Blood by Automated count 0.41 10*3/uL 0-0.8 [facility] Eosinophils [#/volume] in Blood by Automated count 0.27 10*3/uL 0-0.5 [facility] Basophils [#/volume] in Blood by Automated count 0.03 10*3/uL 0-0.2 [facility] Nucleated erythrocytes/100 leukocytes [Ratio] in Blood by Automated count 0 /100{WBCs} 0-0 [facility] ID Date Data Source [id number] 03/25/2020 04:12:49 AM EDT [facility] Name Value Range Interpretation Code Description Data Hazel rce(s) Supporting Document(s) Bicarbonate [Moles/volume] in Serum 26 mmol/L 22-29 [facility] Chloride [Moles/volume] in Serum or Plasma 93 mmol/L 98-107 L [facility] Creatinine [Mass/volume] in Serum or Plasma 0.92 mg/dL 0.70-1.20 [facility] Glucose [Mass/volume] in Serum or Plasma 224 mg/dL 70-140 H [facility] Potassium [Moles/volume] in Serum or Plasma 3.4 mmol/L 3.4-5.1 [facility] Sodium [Moles/volume] in Serum or Plasma 130 mmol/L 136-145 L [facility] Urea nitrogen [Mass/volume] in Serum or Plasma 7 mg/dL 6-20 [facility] Anion gap 3 in Serum or Plasma 11 mmol/L 8-15 [facility] Osmolality of Serum or Plasma by calculation 274 mosm/kg 275-300 L [facility] Creatinine/Urea nitrogen [Mass Ratio] in Serum or Plasma 7 [facility] Calcium [Mass/volume] in Serum or Plasma 8.4 mg/dL 8.6-10.0 L [facility] Glomerular filtration rate/1.73 sq M pre dicted among non-blacks [Volume Rate/Area] in Serum or Plasma by Creatinine-based formula (MDRD) >6 0 [facility] Glomerular filtration rate/1.73 sq M pre dicted among blacks [Volume Rate/Area] in Serum or Plasma by Creatinine-based formula (MDRD) >60 [facility] ID Date Data Source [id number] [facility] Value [facility] Interpretation Code Description Data Hazel rce(s) Supporting Document(s) Glucose [Mass/volume] in Capillary blood by Glucometer 344 mg/dL 70- 140 H [facility] ID Date Data Source [id number] 03/24/2020 07:48:30 PM EDT [facility] Name Value Range Interpretation Code Description Data Hazel rce(s) Supporting Document(s) Leukocytes [#/volume] in Blood by Automated count 4.4 10*3/uL 4-10 [facility] Erythrocytes [#/volume] in Blood by Automated count 2.86 10*6/uL 4.6- 6.1 L [facility] Hemoglobin [Mass/volume] in Blood 9.0 g/dL 13.5-18 L [facility] Hematocrit [Volume Fraction] of Blood by Automated count 27.5 % 4 1-53 L [facility] Erythrocyte mean corpuscular volume [Entitic volume] by Auto mated count 96.2 fL 80-96 H [facility] Erythrocyte mean corpuscular hemoglobin [Entitic mass] by Automated count 31.5 pg 27-33 [facility] Erythrocyte mean corpuscular hemoglobin concentration [Mass/volume] by Automated count 32.8 g/dL 32.0-36.0 [facility] Erythrocyte distribution width [Ratio] by Automated count 17.1 % 11.5-14.5 H [facility] Platelets [#/volume] in Blood by Automated count 155 10*3/uL 150-400 [facility] Differential cell count method - Blood [facility] Neutrophils/100 leukocytes in Blood by Automated count 57 % [facility] Lymphocytes/100 leukocytes in Blood by Automated count 29 % [facility] Monocytes/100 leukocytes in Blood by Automated count 8 % [facility] Eosinophils/100 leukocytes in Blood by Automated count 5 % [facility] Basophils/100 leukocytes in Blood by Automated count 1 % [facility] Neutrophils [#/volume] in Blood by Automated count 2.60 10*3/uL 1.8-7 .0 [facility] Lymphocytes [#/volume] in Blood by Automated count 1.27 10*3/uL 1.2-4 .0 [facility] Monocytes [#/volume] in Blood by Automated count 0.34 10*3/uL 0-0.8 [facility] Eosinophils [#/volume] in Blood by Automated count 0.21 10*3/uL 0-0.5 [facility] Basophils [#/volume] in Blood by Automated count 0.02 10*3/uL 0-0.2 [facility] Nucleated erythrocytes/100 leukocytes [Ratio] in Blood by Automated count 0 /100{WBCs} 0-0 [facility] ID Date Data Source [id number] 03/24/2020 05:59:57 PM [facility] Name Value Range Interpretation Code Description Data Hazel rce(s) Supporting Document(s) Glucose [Mass/volume] in Capillary blood by Glucometer 186 mg/dL 70- 140 H [facility] ID Date Data Source [id number] 03/24/2020 12:39:27 PM [facility] Name Value Range Interpretation Code Description Data Hazel rce(s) Supporting Document(s) Glucose [Mass/volume] in Capillary blood by Glucometer 263 mg/dL 70- 140 [facility] ID Date Data Source [id number] 03/24/2020 11:21:35 AM [facility] Value Range Interpretation Code Description Data Hazel rce(s) Supporting Document(s) Leukocytes [#/volume] in Blood by Automated count 4.4 10*3/uL 4-10 [facility] Erythrocytes [#/volume] in Blood by Automated count 3.29 10*6/uL 4.6- 6.1 L [facility] Hemoglobin [Mass/volume] in Blood 10.3 g/dL 13.5-18 L [facility] Hematocrit [Volume Fraction] of Blood by Automated count 31.6 % 4 1-53 L [facility] Erythrocyte mean corpuscular volume [Entitic volume] by Auto mated count 95.9 fL 80-96 [facility] Erythrocyte mean corpuscular hemoglobin [Entitic mass] by Automated count 31.4 pg 27-33 [facility] Erythrocyte mean corpuscular hemoglobin concentration [Mass/volume] by Automated count 32.7 g/dL 32.0-36.0 [facility] Erythrocyte distribution width [Ratio] by Automated count 17.1 % 11.5-14.5 H [facility] Platelets [#/volume] in Blood by Automated count 160 10*3/uL 150-400 [facility] Differential cell count method - Blood [facility] Neutrophils/100 leukocytes in Blood by Automated count 66 % [facility] Lymphocytes/100 leukocytes in Blood by Automated count 22 % [facility] Monocytes/100 leukocytes in Blood by Automated count 7 % [facility] Eosinophils/100 leukocytes in Blood by Automated count 5 % [facility] Basophils/100 leukocytes in Blood by Automated count 0 % [facility] Neutrophils [#/volume] in Blood by Automated count 2.89 10*3/uL 1.8-7 .0 [facility] Lymphocytes [#/volume] in Blood by Automated count 0.96 10*3/uL 1.2-4 .0 L [facility] Monocytes [#/volume] in Blood by Automated count 0.31 10*3/uL 0-0.8 [facility] Eosinophils [#/volume] in Blood by Automated count 0.20 10*3/uL 0-0.5 [facility] Basophils [#/volume] in Blood by Automated count 0.02 10*3/uL 0-0.2 [facility] Nucleated erythrocytes/100 leukocytes [Ratio] in Blood by Automated count 0 /100{WBCs} 0-0 [facility] ID Date Data Source [id number] 03/24/2020 08:52:00 AM EDT [facility] Name Value Range Interpretation Code Description Data Hazel rce(s) Supporting Document(s) History and Physical [facility] BTGTFo0vVkPDDhFc98/UHGdqDBScm8OlUWtqEPm4KNkvASFpE8RiFOV3kI9uIQZ6PXnRQdJaAnLoFfA7 lbm PeYgzYStYxTSBnVjqLCoEhBAuaLkygnKIwJD2HzOO7GFYhK10vFDHqEMNxC6KxRDSeQoR+Oh7GXNDwyL ItSK1LNuhH7Aezd+O48XuB/upPZP5uGE+UokGFZL80msXFtel2eQzKr23/aG0lUc+2jhF876nut319jV oE5Yb2pj21JZ9IbBicgbzoHSmYy7+mL7soxjPn//ACCOUNTS PAYABLE ANALYST [file] kSukQCJEMiW0RhR4AGkpVVGBRt2A ID Date Data Source [id number] 03/24/2020 08:50:26 AM EDT [facility] Hospital Name Value Range Interpretation Code Description Data Hazel rce(s) Supporting Document(s) [facility] JGNMLo8eLrBTJzMay6GcXkQyRHCzVD4ueye1R0D9cHSzH3UfoSWjt1mjH1YwE4NcWGXtXPYHFQ6KaLUs jb2 [file] /kh9pTW/+FUNCTIONAL CONSULTANT+1CTiv/qRdolxImI2vcNhCuHCLN764pxZtioNf2pXr0/1gZ868GFYN47M4kaFsoxZvVZY [file] EwP/7soxP/eRgVOEIQ7pvP1hfi5lfDB9dpHDfb6vmg023BOYlQv/aYcWs357iwX/FUNCTIONAL CONSULTANT/wlUxEueuJDc1y [file] NSAwIFIKCj4+DwJ9SRW2eNUoUcc5QuK3RxymVXSDJt== ID Date Data Source [id number] 03/24/2020 08:30:51 AM [facility] Name Value Range Interpretation Code Description Data Hazel rce(s) Supporting Document(s) Glucose [Mass/volume] in Capillary blood by Glucometer 106 mg/dL 70- 140 [facility] ID Date Data Source [id number] 03/24/2020 04:16:30 AM [facility] Name Value Range Interpretation Code Description Data Hazel rce(s) Supporting Document(s) Bicarbonate [Moles/volume] in Serum 28 mmol/L 22-29 [facility] Chloride [Moles/volume] in Serum or Plasma 97 mmol/L 98-107 L [facility] Creatinine [Mass/volume] in Serum or Plasma 0.83 mg/dL 0.70-1.20 [facility] Glucose [Mass/volume] in Serum or Plasma 85 mg/dL 70-140 [facility] Potassium [Moles/volume] in Serum or Plasma 3.1 mmol/L 3.4-5.1 L [facility] Sodium [Moles/volume] in Serum or Plasma 131 mmol/L 136-145 L [facility] Urea nitrogen [Mass/volume] in Serum or Plasma 8 mg/dL 6-20 [facility] Anion gap 3 in Serum or Plasma 7 mmol/L 8-15 L [facility] Osmolality of Serum or Plasma by calculation 270 mosm/kg 275-300 L [facility] Creatinine/Urea nitrogen [Mass Ratio] in Serum or Plasma 10 [facility] Calcium [Mass/volume] in Serum or Plasma 8.0 mg/dL 8.6-10.0 L [facility] Glomerular filtration rate/1.73 sq M pre dicted among non-blacks [Volume Rate/Area] in Serum or Plasma by Creatinine-based formula (MDRD) >6 0 [facility] Glomerular filtration rate/1.73 sq M pre dicted among blacks [Volume Rate/Area] in Serum or Plasma by Creatinine-based formula (MDRD) >60 [facility] ID Date Data Source [id number] 03/24/2020 02:48:40 AM EDT [facility] Name Value Range Interpretation Code Description Data Hazel rce(s) Supporting Document(s) Leukocytes [#/volume] in Blood by Automated count 4.5 10*3/uL 4-10 [facility] Erythrocytes [#/volume] in Blood by Automated count 2.76 10*6/uL 4.6- 6.1 L [facility] Hemoglobin [Mass/volume] in Blood 8.8 g/dL 13.5-18 L [facility] Hematocrit [Volume Fraction] of Blood by Automated count 26.1 % 4 1-53 L [facility] Erythrocyte mean corpuscular volume [Entitic volume] by Auto mated count 94.4 fL 80-96 [facility] Erythrocyte mean corpuscular hemoglobin [Entitic mass] by Automated count 31.8 pg 27-33 [facility] Erythrocyte mean corpuscular hemoglobin concentration [Mass/volume] by Automated count 33.7 g/dL 32.0-36.0 [facility] Erythrocyte distribution width [Ratio] by Automated count 16.8 % 11.5-14.5 H [facility] Platelets [#/volume] in Blood by Automated count 137 10*3/uL 150-400 L [facility] Differential cell count method - Blood [facility] Neutrophils/100 leukocytes in Blood by Automated count 54 % [facility] Lymphocytes/100 leukocytes in Blood by Automated count 32 % [facility] Monocytes/100 leukocytes in Blood by Automated count 8 % [facility] Eosinophils/100 leukocytes in Blood by Automated count 5 % [facility] Basophils/100 leukocytes in Blood by Automated count 1 % [facility] Neutrophils [#/volume] in Blood by Automated count 2.44 10*3/uL 1.8-7 .0 [facility] Lymphocytes [#/volume] in Blood by Automated count 1.44 10*3/uL 1.2-4 .0 [facility] Monocytes [#/volume] in Blood by Automated count 0.34 10*3/uL 0-0.8 [facility] Eosinophils [#/volume] in Blood by Automated count 0.23 10*3/uL 0-0.5 [facility] Basophils [#/volume] in Blood by Automated count 0.03 10*3/uL 0-0.2 [facility] Nucleated erythrocytes/100 leukocytes [Ratio] in Blood by Automated count 0 /100{WBCs} 0-0 [facility] ID Date Data Source [id number] [facility] Value Range Interpretation Code Description Data Hazel rce(s) Supporting Document(s) Bicarbonate [Moles/volume] in Serum 27 mmol/L 22-29 [facility] Chloride [Moles/volume] in Serum or Plasma 100 mmol/L 98-107 [facility] Creatinine [Mass/volume] in Serum or Plasma 0.80 mg/dL 0.70-1.20 [facility] Glucose [Mass/volume] in Serum or Plasma 80 mg/dL 70-140 [facility] Potassium [Moles/volume] in Serum or Plasma 3.3 mmol/L 3.4-5.1 L [facility] Hemolyzed Sodium [Moles/volume] in Serum or Plasma 136 mmol/L 136-145 [facility] Urea nitrogen [Mass/volume] in Serum or Plasma 8 mg/dL 6-20 [facility] Anion gap 3 in Serum or Plasma 9 mmol/L 8-15 [facility] Osmolality of Serum or Plasma by calculation 279 mosm/kg 275-300 [facility] Creatinine/Urea nitrogen [Mass Ratio] in Serum or Plasma 10 [facility] Calcium [Mass/volume] in Serum or Plasma 7.5 mg/dL 8.6-10.0 L [facility] Glomerular filtration rate/1.73 sq M pre dicted among non-blacks [Volume Rate/Area] in Serum or Plasma by Creatinine-based formula (MDRD) >6 0 [facility] Glomerular filtration rate/1.73 sq M pre dicted among blacks [Volume Rate/Area] in Serum or Plasma by Creatinine-based formula (MDRD) >60 [facility] ID Date Data Source [id number] 03/23[facility]2020 09:34[facility] Value Range Interpretation Code Description Data Hazel rce(s) Supporting Document(s) Glucose [Mass/volume] in Capillary blood by Glucometer 319 mg/dL 70- 140 H [facility] ID Date Data Source [id number] 03/23/2020 09:34:51 PM EDT [facility] Name Value Range Interpretation Code Description Data Hazel rce(s) Supporting Document(s) Glucose [Mass/volume] in Capillary blood by Glucometer 330 mg/dL 70- 140 H [facility] ID Date Data Source [id number] 03/23/2020 07:46:22 PM EDT [facility] Name Value Range Interpretation Code Description Data Hazel rce(s) Supporting Document(s) [facility] PZFNPb2kDyUCXgJq46/OVNvqNXKwl1RhDTveLCg5EKxpVUQhA0YnKEI6yG7bASD5CJcZWoLvBmNsSfUh [facility] [file] AgICAgICAgICAgICAgICAgICAgICAgICAgICAgICAg MUJhPDCxQNJiQQOdPNEoMTRuTYQwQAUuHXMdVVEpVOEsHNMnOXSaVEGxFF7NHCCrQYJlVJXvMYUwMDVc ICAgICAgICAgICAgICAgICAgICAgICAgICAgICAgICAgICAgICAgICAgICAgICAgICAgICAgICAgICAg NCXqGFAuMJKuVVNnMRMfNWJhWXWzFDXtIO9TLIDhIE AgICAgICAgICAgICAgICAgICAgICAgICAgICAgICAgICAgICAgICAgICAgICAgICAgICAgICAgICAgIC EfHJYvPCOrGLJvJDShIUShCBLpMTVuLHToNUNdGAMmZYQrIF9EQFAhUFPrGWNxRQNdUZDmTJFeHJYfKL AgICAgICAgICAgICAgICAgICAgICAgICAgICAgICAg KBNnMTNhSPFvQDUpPOFcHZNyRLQnMMHyJLPcUUPpCUTdSGUuYTQfYGXzIVBtEY7RKGFlFYGaZENiBDAw ICAgICAgICAgICAgICAgICAgICAgICAgICAgICAgICAgICAgICAgICAgICAgICAgICAgICAgICAgICAg LAUoTAKlRYOzMKReQEGdQIWcPQOlNAAuILOxNT5IVH AgICAgICAgICAgICAgICAgICAgICAgICAgICAgICAgICAgICAgICAgICAgICAgICAgICAgICAgICAgIC XrOQOuTSRvRTQnMZZzZOHqOGZfKPAcXIVgVPWmPTJdDGKkPVQsFH7BTSLmVJZaOMYoHCQlEDUpPGHxJC AgICAgICAgICAgICAgICAgICAgICAgICAgICAgICAg REKnCFOySZLkGIZiRWJsRGOxEEVcIWStEJOwIFLaNWQyYWIoHFVlPLMrAMDmERFaBA4DFHNrSWXnDYFu ICAgICAgICAgICAgICAgICAgICAgICAgICAgICAgICAgICAgICAgICAgICAgICAgICAgICAgICAgICAg ICAgICAgICAgICAgICAgICAgICAgICAgICAgICAgIA 0KICAgICAgICAgICAgICAgICAgICAgICAgICAgICAgICAgICAgICAgICAgICAgICAgICAgICAgICAgIC WdBWTzQYZxRVIrUQIrFSLbKLUdXBZsPYFsGKWuVDKdZWYfNQLzOZNxCH3JVDVgZCIwQLTePSPvFLKbJT AgICAgICAgICAgICAgICAgICAgICAgICAgICAgICAg RRYnSYHgSIBuIUVuSNKbFJOmQVDqFFCbBRMnJSCoFIJaZOVyNTSpZPOmUHDlVERbBIEjUT9YIT24sUAy m1F5APHwJR7ynja/Cr9QUZvpjqRvtRHnIZ6FOpAkCG9zlo6USvAcYV6rip9GZHkYJpEiZ0Y0tOMnYVWw OHMSSdMzF08sOZbbPt79VXwgBSJpAkQmSLz0To1PHm ApE7zcBBAzUkA1GUGvStX4TPOtHrX9LIGjOcBvHNFxCCFfUMUnMFERCFT3XHCfTmWiHeIpBRIoES4CPB IaS118ahAaSu4DYa0LMqBmTE9odh0ZWTGwCGHnSpsSGkw5RXekTQ6PeLRtbJD3JXPnWHSTLgUkZ5erx9 RrWFNySTSQQJnyTZ8Jb2JlvDRyNGy+Rp9ZCU2ib5Oa FNf0DAQyRO8nom5BQQkYXrDqF2UfgUruHRKimbA9jECvRAV4BSLlQPCsgqOShUhjsEIwAXFITWPaaXY6 KpJyNwAqNbLjTWJ6XUGmBR4wKAuqTB0GDCW8MIjvNRJvKJJwE9dRElHvINPbAyNivSyaNH5HJtCpK3Lw exZinYT7ARWrSHFNEr1+DQplbmRvYmoNCjQyIDAgb2 ClDJp4CF4OZSEgOWxtAU1FOCQbsF3dRAzgBD3PQfJhDLYhLHQHMcRnN54pmMEgSJr0I3IbMqPzZMQkVl lsZXMgPDwvTmFtZXMgWyBdDQogID4+ID4+QPxgJT8NAKyprnIoBSGdIf1ZSIYfBOKoHO9aRAPeWDXeA0 S1qVqgCROAIzGzT6opteocEU9rTIUxD286eXxbxuKv HIJhCJTaAb4WORFvFGR9ULVbmROxBfhhYZAGPCdlQT2PwFPzBHI3dX0eKVcmCUCiSHUyT3yYSyKrtJhc PJ02cJtxmzFynVOqINw+Zt3NWY8sq0ClKNj9kzTgMEmqZRMzWQrhFIWfVHPkDMGcFFM9TMZ0HYPYOyJt XYSbIDPlYOhdECOzDAXtwv7ZQUEhOBJ7LYW1NqHiDS JxMYEgRCrkXHVjIHHaLSZ3SNVmLBTdER2MJaStOXNsAXXaUVhjPXGeMYTehb5DDOTzXXFmWqJ2QjNgMK OhXCFuTTkcNBQxQUNdFJgtFEWkMHVdJK2RWvHpHUBmAQO3SqCsRTIeWFCrmo8TWXWyIQJnIuH1JRRcHR ChYFRhLDmeUCHwNRAxPbEtWOIgVXDtOI2EGaOkEZXc LEU3VzDgPDVvRYByrz5FABEnFJZwIAGeWKWzWQCcKDQkGWxlYFShELI2LrD1MGKrZYSjKP2GNwEdCNEc EEP5JdrxPCFfXJEkkt2FLFTgUXPdCqO8NDFtPEXhDRKnDAdsMNStSTHaVwH7WOEyJOXpGF3EUfEqGCKr ZgV9XKWdROPmFNPpne1LKHJgCEVjLRbhRGLlAWWwWA XaZOybWOQnVEOiNYE1PCWxZWVfOG8KTgOfQJHhAnXoIPDzIBQnJPNplf0ADWXcGGGrZjAxFtOmOLSpDJ BcVKdlGMOlCCFsSrm1ZXCbIPPmJC2YFeSmIEEhObPpXTWpTGWfBTKvve3CEVRrWGMfRQM4ZlYzCBErEG UeYStaXXUoXWL9PhW4JGUiRWLwIE0CFeOrTRPlHpN4 ZYFxEFArEFOpxy1SEUYaBUQvMZh7ZPQcBQStPOVaWGrkSFIqFQP8BPfjZCFkPHHzQO7CFrViNPBqGcmy WVCwZOEzWQIvtp0BSVIdLKAmOsI4MYWiRURvZFNhZQcoFUUqFQI0ZMUzDGEqJHOhOZ4ACoBrVDBcNzp1 JXdkLJNmSHBwiz6RNLUmOLZmOEIcCoNsNQHyPHFaAN peXOSoPDC8OxL2DYAmOAIgWN5SWbIaZVCzBdk1SiDpVOTbAPKzqj1OIQJsPSGcFPvlSIAdGBOfWZTlTV rmQLVyAGLwAyO6DITgXVUpIR3YExVxACLsWRE5RBUbQVAwCQUpyv6OPGOmUJE5QOXbRACzJGPrOLChRG akJYFiCMJiAIy5EINoDBThBR1WDzItNVQnZCG2QHdf GIZrSRSsbt3RDHLvIDR2CmHuTKVnKLNaORTrTKelPOVgLYQjUYjdKESpROUrDD8LCjSoGOpeTGEUDfw4 WVipB6b1HDQ7Xy5BE0Pls6RhFLSqDWEWCDskRR1peqGmKIOsXi5ZL8sWFjneM4O2Z7L5KQD9HSEzYTLi RRD1HWNkSUKxAiY0S2J7NW5nRJUbHUCcMhgoLqS2WF RgC8SiCBCvTYLxAIDzJsLnUZObDxZsXT5WIv5BYzN9RLQ0oEOaOv7YVCH4ZHDQYkBqSY7JDEz= ID Date Data Source [id number] 03/23/2020 07:09:44 PM T [facility] Name Value Range Interpretation Code Description Data Hazel rce(s) Supporting Document(s) Leukocytes [#/volume] in Blood by Automated count 5.4 10*3/uL 4-10 [facility] Erythrocytes [#/volume] in Blood by Automated count 2.89 10*6/uL 4.6- 6.1 L [facility] Hemoglobin [Mass/volume] in Blood 9.2 g/dL 13.5-18 L [facility] Hematocrit [Volume Fraction] of Blood by Automated count 27.4 % 4 1-53 L [facility] Erythrocyte mean corpuscular volume [Entitic volume] by Auto mated count 94.7 fL 80-96 [facility] Erythrocyte mean corpuscular hemoglobin [Entitic mass] by Automated count 31.8 pg 27-33 [facility] Erythrocyte mean corpuscular hemoglobin concentration [Mass/volume] by Automated count 33.5 g/dL 32.0-36.0 [facility] Erythrocyte distribution width [Ratio] by Automated count 16.8 % 11.5-14.5 H [facility] Platelets [#/volume] in Blood by Automated count 130 10*3/uL 150-400 L [facility] Differential cell count method - Blood [facility] Neutrophils/100 leukocytes in Blood by Automated count 71 % [facility] Lymphocytes/100 leukocytes in Blood by Automated count 20 % [facility] Monocytes/100 leukocytes in Blood by Automated count 6 % [facility] Eosinophils/100 leukocytes in Blood by Automated count 3 % [facility] Basophils/100 leukocytes in Blood by Automated count 0 % [facility] Neutrophils [#/volume] in Blood by Automated count 3.84 10*3/uL 1.8-7 .0 [facility] Lymphocytes [#/volume] in Blood by Automated count 1.08 10*3/uL 1.2-4 .0 L [facility] Monocytes [#/volume] in Blood by Automated count 0.35 10*3/uL 0-0.8 [facility] Eosinophils [#/volume] in Blood by Automated count 0.15 10*3/uL 0-0.5 [facility] Basophils [#/volume] in Blood by Automated count 0.02 10*3/uL 0-0.2 [facility] Nucleated erythrocytes/100 leukocytes [Ratio] in Blood by Automated count 0 /100{WBCs} 0-0 [facility] ID Date Data Source [id number] 03/23/2020 06:06:54 PM EDT [facility] Name Value Range Interpretation Code Description Data Hazel rce(s) Supporting Document(s) Glucose [Mass/volume] in Capillary blood by Glucometer 76 mg/dL 70- 140 [facility] ID Date Data Source [id number] 03/23/2020 04:31:15 PM EDT [facility] Name Value Range Interpretation Code Description Data Hazel rce(s) Supporting Document(s) [facility] SRJZXo2jJhLTMtSe26/WSNhbCRIbb6FkESbpNOc9ECcxUAMiZ9KcTMR2dB7jXYW5HWnAWzDiUgVdQlHf lbm [file] ICAgICAgICAgICAgICAgICAgICAgICAgICAgICAgIC TxEAPrKZBwLDEyWFXyMIPdPGMlPUCxZBApYMKyFRZzQCLpWRUqAIQrZANrLS3SPGIcJKHaFILiYHMsIW AgICAgICAgICAgICAgICAgICAgICAgICAgICAgICAgICAgICAgICAgICAgICAgICAgICAgICAgICAgIC LaTSSlWRVlHYMjDJLqAQUlBZLtKGBkWOGzOS1TTNAw ICAgICAgICAgICAgICAgICAgICAgICAgICAgICAgICAgICAgICAgICAgICAgICAgICAgICAgICAgICAg OBTfRAFaCTXsYCBdFFFzOIGkOHCaVPEgGATlWCFdMIEfSIEvXW9NJHMqJBOiBSToDBDbWVJpCZRkWEQl ICAgICAgICAgICAgICAgICAgICAgICAgICAgICAgIC MnOOOkZIXrPICrRAAwPBImUMSsYAKxQNEpXFKeLNKuLZWbEGQxLVYkANKfDHKsPM3UGSLeMOAsNLJtKD AgICAgICAgICAgICAgICAgICAgICAgICAgICAgICAgICAgICAgICAgICAgICAgICAgICAgICAgICAgIC UsOKXhOHQqMQEsHKMhNHNmSZJbZBAkEAXbQEMyAR0W ICAgICAgICAgICAgICAgICAgICAgICAgICAgICAgICAgICAgICAgICAgICAgICAgICAgICAgICAgICAg VEDvLCFkLCJiEEBxERVwWCGtYKDnSFRdAXPhVALhKSAvEIUxWYKxGN8VGKWfJJEiMSXzCXXnYBPgTTIg ICAgICAgICAgICAgICAgICAgICAgICAgICAgICAgIC ZtUYCmSAIhUPDnTFMdSNQuDTCiSEHaVKIwZRMyFRKkIZTcTOOgHHAeHHDiZRIpQEMeEO4LXQAsQTNbEE AgICAgICAgICAgICAgICAgICAgICAgICAgICAgICAgICAgICAgICAgICAgICAgICAgICAgICAgICAgIC AgICAgICAgICAgICAgICAgICAgICAgICAgICAgICAg UO0BRGPvLXUpQLDhTTWaATBwBNIhZIPqKLGyFGCcGYKhSOKyTPQcYUWfZERlUNZbYQZlZYEyPVKjDDAk MQQdKRNeONPqKSAuLWZhKCTkBPFmFWYgMASmRNZqUSUePCHuTDZfSIGcLS2DPPRlFWBlECKvSHXqMBBv ICAgICAgICAgICAgICAgICAgICAgICAgICAgICAgIC GpTJEaVZVzASGtBTFoISPuAQStCLZvOFGlNOJvKQNoKCGkCSJeCEFaLFNqHBTwOYByXFXqLQ9NZH61sG Dqk4A7ADYlGA8hwmu/Vw4TMSgtwbChiVIlCW9IBmScCH6mqq1PUnDrHA7nnl0HEBxHLsDyM0U4oMWbLX GlOYLMHyWeC08dRMfpEg73KZilIFSwKqDcCZh4Id0M QjLsI2gaJZKwHbB3ICBiRkS0FTBeGxS1VZPzUoStPMAiUKFgGBZdMCZHFHU3FVSzRrIdOjYzRZNoRT4O CYFsS050orYkSh8VEl3ZEmHlYO3edb0RCdYsJPWpJoiUWhf8WQhbKN1ErTGopQQtPjMtOYKLXfUxU4kl v7TqZePtONGYXYxfTB6Ff6HbhIVnTHx+Qa8EPH2hf3 KiTEqkQgDvMM3rsy9ZPLoIHwLqF9CjeYepPOWigcE2wURqZEI0KMIuyrzhqAsfLQ2iEc8wrOibOZxkAW 9IRiNevAU2EjYgXlOhNcNdQDU4XWmhQU9dIRjuNO5SMAA2GNfsITZsSDEuI7hDGrWzLBGwXnXdkMedVI 7OIdHoK0UnstBxlLQjMOIvGDTDUh1+DQplbmRvYmoN FmQiHCPpg1YiKPd0CA2BGFCzVErwLP0GIPHdoZ9pISemWW6DQxPqENHkSFHERoMuN71yyUYxBMy6Y3Tc YmVkZGVkRmlsZXMgPDwvTmFtZXMgWyBdDQogID4+ID4+LOmrUB6SEApyerTkTLSeXb2OTEZwHQZuOX9n BCXtQWCrF3C6eRfzDDVJZvHoD5hunumwYF7eZLWeK7 39yYyojnMeDTRqDFRjBg3JUYWhVZQ4NWVahLWxTpDoOLCHJZjqTG3LhWYaPEA3nO5eNDbnPSJqRGVzE7 bZWmUvhWzrGC56bEjwgwKlcQWuDGp+Ky1DJQ2gv2PpCYk6feExFLusHXG0FIxtRTAdLEPkHMXwXPD7HT U0YTKTUeXkUAEiHVXdXIcnHTCqBMPazu5OBEScMSDn AkLvFyLqASUnZCJsYSuwYKBoEMR0IMRoBPQzNIYpOY5AJePdOBWlYEVkDHwkNLAnYLAtmc1RQHIpMRGt JsN1FvJiHNRfKZKaVKgnKMIdXVHgKSa0JCQeCXEkTL5BEsAsGEXiCMN6LXUdXBJpEPFhfe0GVLBnXQBf GfM2WWDkGNXlDPTyNJfkIHGdPNY5Cnk1PYIbQFCxAZ 0CGfXvCEBmOUt8VEPrCRAtMKZkyp2QGWDoHPQwYjc6PcTtKYXnFMPlYJwqOYPyFXNbBJEzAZOeGVMbHC 7KDjSgOWNcQAYbMQQnCGJvOVRnzn7PLYRxRRDaUoLsFMEsZBDkCMQmWGcyLOUfGBHgUYB6CFAxWSZnPJ 7NRsFrCKJyYlKfKeDcFINySNNseh9FGUXgCAHnZBfn RHAuDXXiSPUyHQumHGJhKZWkLOAiWBJcLRSaEH0RZkXsHNExOaCjVdKlLKBwCFMyty5VEAByWUIoByZ8 CCMiSTVoKAAmKJinZLSyNRYrZNFgINPyNKWjRJ0YBxUfPNMqDxV1NEGwHYWzSFDrok9XZQAqVANhPeFs ScJaCYPyLPJlMNrzHBTaULFuBWFfWJHnYTHzLO3WLq YwHSNdNtVwHSAuYLWpJSBmia4NLXYbAJUeOPC2XsLzZPAoVFLuMNjtXQGjTQF8Zgi2VIDjYUPuVE9OFy BcPOXtHyG5ZeOhOCTmGGZmcs5ESJZsVVPjPcJ8BRTqHMYcWJGlLHezPDJzLGB9CQdmHEHxVNNmEK6CMk UtLREqCzx3RZyzCQMsJAUeja6IZHTxETZwGWKnVMHv QZTzWJXzTXwmFVUeIWS7JMo7HIUfWYBbNG5ZUjDrUHzjKHRPRup5FYhsJ6e0CAUxEU9QC3Hvq2HlGiLc RAIGTYguKH5odkAjAUZfQm8RX2cQJsy2OuReYbx3PeNlJWFcAmQzJLW5UhQ5UjXaMJNbDrMdCy4nHJy2 EZW3SGN4KMOoFTQeGRChBZJ2Puk3IQOuGRO1EKBxZk ImXQ9WAd0USbE3TGI9uADyGg1HAgk8XwCZUnAkZH5CZBw= ID Date Data Source [id number] 03/23/2020 12:56:11 PM [facility] Name Value Range Interpretation Code Description Data Hazel rce(s) Supporting Document(s) Glucose [Mass/volume] in Capillary blood by Glucometer 166 mg/dL 70- 140 H [facility] ID Date Data Source [id number] 03/23/2020 09:21:57 AM [facility] Value Range Interpretation Code Description Data Hazel rce(s) Supporting Document(s) Glucose [Mass/volume] in Capillary blood by Glucometer 183 mg/dL 70- 140 H [facility] ID Date Data Source [id number] 03/23/2020 09:13:02 AM [facility] Value Range Interpretation Code Description Data Hazel rce(s) Supporting Document(s) Leukocytes [#/volume] in Blood by Automated count 4.5 10*3/uL 4-10 [facility] Erythrocytes [#/volume] in Blood by Automated count 2.88 10*6/uL 4.6- 6.1 L [facility] Hemoglobin [Mass/volume] in Blood 9.4 g/dL 13.5-18 L [facility] Hematocrit [Volume Fraction] of Blood by Automated count 27.6 % 4 1-53 L [facility] Erythrocyte mean corpuscular volume [Entitic volume] by Auto mated count 95.8 fL 80-96 [facility] Erythrocyte mean corpuscular hemoglobin [Entitic mass] by Automated count 32.8 pg 27-33 [facility] Erythrocyte mean corpuscular hemoglobin concentration [Mass/volume] by Automated count 34.2 g/dL [facility].0-36.[facility] distribution width [Ratio] by Automated count 17.0 % 11.5-14.5 H [facility] Platelets [#/volume] in Blood by Automated count 119 10*3/uL 150-400 L [facility] ID Date Data Source [id number] 03/23/2020 03:44:43 PM [facility] Name Value Range Interpretation Code Description Data Hazel rce(s) Supporting Document(s) Bicarbonate [Moles/volume] in Serum 25 mmol/L 22-29 [facility] Chloride [Moles/volume] in Serum or Plasma 102 mmol/L 98-107 [facility] Creatinine [Mass/volume] in Serum or Plasma 0.87 mg/dL 0.70-1.20 [facility] Glucose [Mass/volume] in Serum or Plasma 170 mg/dL 70-140 H [facility] Potassium [Moles/volume] in Serum or Plasma 3.6 mmol/L 3.4-5.1 [facility] Sodium [Moles/volume] in Serum or Plasma 139 mmol/L 136-145 [facility] Urea nitrogen [Mass/volume] in Serum or Plasma 8 mg/dL 6-20 [facility] Anion gap 3 in Serum or Plasma 12 mmol/L 8-15 [facility] Osmolality of Serum or Plasma by calculation 290 mosm/kg 275-300 [facility] Creatinine/Urea nitrogen [Mass Ratio] in Serum or Plasma 9 [facility] Calcium [Mass/volume] in Serum or Plasma 7.6 mg/dL 8.6-10.0 L [facility] Glomerular filtration rate/1.73 sq M pre dicted among non-blacks [Volume Rate/Area] in Serum or Plasma by Creatinine-based formula (MDRD) >6 0 [facility] Glomerular filtration rate/1.73 sq M pre dicted among blacks [Volume Rate/Area] in Serum or Plasma by Creatinine-based formula (MDRD) >60 [facility] ID Date Data Source [id number] 03/23/2020 06:37:30 AM [facility] Name Value Range Interpretation Code Description Data Hazel rce(s) Supporting Document(s) Leukocytes [#/volume] in Blood by Automated count 3.5 10*3/uL 4-10 L [facility] Erythrocytes [#/volume] in Blood by Automated count 2.09 10*6/uL 4.6- 6.1 [facility] Hemoglobin [Mass/volume] in Blood 6.6 g/dL 13.5-18 L [facility] Hematocrit [Volume Fraction] of Blood by Automated count 19.8 % 4 1-53 LL [facility] No significant change since last result called Erythrocyte mean corpuscular volume [Entitic volume] by Auto mated count 94.7 fL 80-96 [facility] Erythrocyte mean corpuscular hemoglobin [Entitic mass] by Automated count 31.7 pg 27-33 [facility] Erythrocyte mean corpuscular hemoglobin concentration [Mass/volume] by Automated count 33.4 g/dL 32.0-36.0 [facility] E[facility]throcyte distribution width [Ratio] by Automated count 16.5 % 11.5-14.5 H [facility] Platelets [#/volume] in Blood by Automated count 93 10*3/uL 150-400 L [facility] Differential cell count method - Blood [facility] Neutrophils/100 leukocytes in Blood by Automated count 52 % [facility] Lymphocytes/100 leukocytes in Blood by Automated count 33 % [facility] Monocytes/100 leukocytes in Blood by Automated count 8 % [facility] Eosinophils/100 leukocytes in Blood by Automated count 7 % [facility] Basophils/100 leukocytes in Blood by Automated count 0 % [facility] Neutrophils [#/volume] in Blood by Automated count 1.84 10*3/uL 1.8-7 .0 [facility] Lymphocytes [#/volume] in Blood by Automated count 1.13 10*3/uL 1.2-4 .0 L [facility] Monocytes [#/volume] in Blood by Automated count 0.26 10*3/uL 0-0.8 [facility] Eosinophils [#/volume] in Blood by Automated count 0.23 10*3/uL 0-0.5 [facility] Basophils [#/volume] in Blood by Automated count 0.01 10*3/uL 0-0.2 [facility] Nucleated erythrocytes/100 leukocytes [Ratio] in Blood by Automated count 0 /100{WBCs} 0-0 [facility] ID Date Data Source [id number] 03/22/2020 11:35:13 PM T [facility] Name Value Range Interpretation Code Description Data Hazel rce(s) Supporting Document(s) Leukocytes [#/volume] in Blood by Automated count 5.1 10*3/uL 4-10 [facility] Erythrocytes [#/volume] in Blood by Automated count 2.14 10*6/uL 4.6- 6.1 L [facility] Hemoglobin [Mass/volume] in Blood 6.9 g/dL 13.5-18 L [facility] Hematocrit [Volume Fraction] of Blood by Automated count 20.7 % 4 1-53 LL [facility] Called to and read back by sharmila villegas rn on 6a at 2330 by 2050 Erythrocyte mean corpuscular volume [Entitic volume] by Auto mated count 96.6 fL 80-96 H [facility] Erythrocyte mean corpuscular hemoglobin [Entitic mass] by Automated count 32.3 pg 27-33 [facility] Erythrocyte mean corpuscular hemoglobin concentration [Mass/volume] by Automated count 33.5 g/dL 32.0-36.0 [facility] Erythrocyte distribution width [Ratio] by Automated count 15.9 % 11.5-14.5 H [facility] Platelets [#/volume] in Blood by Automated count 112 10*3/uL 150-400 L [facility] Differential cell count method - Blood [facility] Neutrophils/100 leukocytes in Blood by Automated count 63 % [facility] Lymphocytes/100 leukocytes in Blood by Automated count 25 % [facility] Monocytes/100 leukocytes in Blood by Automated count 6 % [facility] Eosinophils/100 leukocytes in Blood by Automated count 5 % [facility] Basophils/100 leukocytes in Blood by Automated count 1 % [facility] Neutrophils [#/volume] in Blood by Automated count 3.20 10*3/uL 1.8-7 .0 [facility] Lymphocytes [#/volume] in Blood by Automated count 1.26 10*3/uL 1.2-4 .0 [facility] Monocytes [#/volume] in Blood by Automated count 0.33 10*3/uL 0-0.8 [facility] Eosinophils [#/volume] in Blood by Automated count 0.27 10*3/uL 0-0.5 [facility] Basophils [#/volume] in Blood by Automated count 0.04 10*3/uL 0-0.2 [facility] Nucleated erythrocytes/100 leukocytes [Ratio] in Blood by Automated count 0 /100{WBCs} 0-0 [facility] ID Date Data Source [id number] 03/22/2020 09:30:03 PM EDT [facility] Name Value Range Interpretation Code Description Data Hazel rce(s) Supporting Document(s) Glucose [Mass/volume] in Capillary blood by Glucometer 115 mg/dL 70- 140 [facility] ID Date Data Source [id number] 03/22/2020 05:44:56 PM EDT [facility] Name Value Range Interpretation Code Description Data Hazel rce(s) Supporting Document(s) Glucose [Mass/volume] in Capillary blood by Glucometer 238 mg/dL 70- 140 H [facility] ID Date Data Source [id number] 03/22/2020 03:22:36 PM EDT [facility] MR BILIARY TREE MRCP [id number] RESULTIn terpreted by:KEITH QuintanaPROCEDURE INFORMATION: Exam: MR Abdomen Without Contrast Exam date and time: 03/22/2020 11:00 AM Age: 55 years old Clinical indication: Essential (primary) hypertension; Abdominal pain; Generalized; Additional info: Pancreatic, bile duct dilatation, abdominal pain TECHNIQUE: Imaging protocol: MR of the abdomen without contrast. 3D rendering: MIP and/or 3D reconstructed images were created by the technologist. COMPARISON: CT ABDOMEN WITH CONTRAST [id number] 03/21/2020 5:53 AM FINDINGS: Pleura: Trace pleural effusions. Mediastinum: Small hiatal hernia Liver: 3 mm T2 hyperintense structure in the right hepatic lobe. Gallbladder and bile ducts: Common bile duct is dilated measuring up to 7 mm. 3 mm filling defect in common bile duct, suspicious for choledocholithiasis. The distal most common bile duct is obscured. Cholecystectomy. Pancreas: MRCP images are limited by artifacts. Main pancreatic duct is dilated measuring up to 7 mm. Multiple subcentimeter T2 hyperintense foci are noted in the region of the pancreatic head/uncinate process and appear to communicate with the main pancreatic duct, concerning for IPMN. few tiny T2 hyperintense foci are noted in the distal pancreatic body/tail, communication of these foci with main pancreatic duct cannot be confirmed in this examination, likely represent side-branch IPMN versus cystic foci/neoplasm. Scattered calcifications in the region of pancreatic head, likely sequelae of chronic pancreatitis. Partial atrophy of the pancreas. Spleen: Unremarkable. No splenomegaly. Adrenals: Unremarkable. No mass. Kidneys and ureters: 2 mm T2 hyperintense structure in the right kidney. 1.5 cm and 7 mm T2 hyperintense structure in the left kidney. Stomach and bowel: Visualized stomach and intestines are unremarkable. Intraperitoneal space: No free fluid. Arteries: No abdominal aortic aneurysm. Bones/joints: Spondylosis. Scoliosis. Soft tissues: Unremarkable. Other findings: Limited examination due to lack of contrast and artifacts. IMPRESSION: 1. Limited examination due to lack of contrast and artifacts. 2. Main pancreatic duct is dilated measuring up to 7 mm. Multiple subcentimeter T2 hyperintense foci are noted in the region of the pancreatic head/uncinate process and appear to communicate with the main pancreatic duct, concerning for IPMN. few tiny T2 hyperintense foci are noted in the distal pancreatic body/tail, communication of these foci with main pancreatic duct cannot be confirmed in this examination, likely represent side- branch IPMN versus cystic foci/neoplasm. If available, correlate with prior imaging. Otherwise, close follow-up examination is recommended.3. Common bile duct is dilated measuring up to 7 mm. 3 mm filling defect in common bile duct, suspicious for choledocholithiasis. The distal most common bile duct is obscured.The remainder of the findings as described above.THIS DOCUMENT HAS BEEN ELECTRONICALLY SIGNED BY MING Ramirezs document has been electronic ally signed by KEITH Quintana on 03/22/2020 3:22 PM Name Value Range Interpretation Code Description Data Hazel rce(s) Supporting Document(s) ID Date Data Source [id number] 03/22/2020 03:37:44 PM [facility] Name Value Range Interpretation Code Description Data Hazel rce(s) Supporting Document(s) Glucose [Mass/volume] in Capillary blood by Glucometer 273 mg/dL 70- 140 H [facility] ID Date Data Source [id number] 03/22/2020 01:15:26 PM [facility] Name Value Range Interpretation Code Description Data Hazel rce(s) Supporting Document(s) Leukocytes [#/volume] in Blood by Automated count 4.4 10*3/uL 4-10 [facility] Erythrocytes [#/volume] in Blood by Automated count 2.44 10*6/uL 4.6- 6.1 L [facility] Hemoglobin [Mass/volume] in Blood 8.0 g/dL 13.5-18 L [facility] Hematocrit [Volume Fraction] of Blood by Automated count 23.5 % 4 1-53 L [facility] Erythrocyte mean corpuscular volume [Entitic volume] by Auto mated count 96.6 fL 80-96 H [facility] Erythrocyte mean corpuscular hemoglobin [Entitic mass] by Automated count 32.8 pg 27-33 [facility] Erythrocyte mean corpuscular hemoglobin concentration [Mass/volume] by Automated count 34.0 g/dL 32.0-36.0 [facility] E[facility] distribution width [Ratio] by Automated count 16.0 % 11.5-14.5 H [facility] Platelets [#/volume] in Blood by Automated count 131 10*3/uL 150-400 L [facility] Differential cell count method - Blood [facility] Neutrophils/100 leukocytes in Blood by Automated count 72 % [facility] Lymphocytes/100 leukocytes in Blood by Automated count 18 % [facility] Monocytes/100 leukocytes in Blood by Automated count 5 % [facility] Eosinophils/100 leukocytes in Blood by Automated count 4 % [facility] Basophils/100 leukocytes in Blood by Automated count 1 % [facility] Neutrophils [#/volume] in Blood by Automated count 3.18 10*3/uL 1.8-7 .0 [facility] Lymphocytes [#/volume] in Blood by Automated count 0.77 10*3/uL 1.2-4 .0 L [facility] Monocytes [#/volume] in Blood by Automated count 0.22 10*3/uL 0-0.8 [facility] Eosinophils [#/volume] in Blood by Automated count 0.17 10*3/uL 0-0.5 [facility] Basophils [#/volume] in Blood by Automated count 0.03 10*3/uL 0-0.2 [facility] Nucleated erythrocytes/100 leukocytes [Ratio] in Blood by Automated count 0 /100{WBCs} 0-0 [facility] ID Date Data Source [id number] 03/22/2020 08:17:15 AM [facility] Name Value Range Interpretation Code Description Data Hazel rce(s) Supporting Document(s) Glucose [Mass/volume] in Capillary blood by Glucometer 148 mg/dL 70- 140 H [facility] ID Date Data Source [id number] [facility] Value [facility] Interpretation Code Description Data Hazel rce(s) Supporting Document(s) Leukocytes [#/volume] in Blood by Automated count 5.0 10*3/uL 4-10 [facility] Erythrocytes [#/volume] in Blood by Automated count 2.76 10*6/uL 4.6- 6.1 L [facility] Hemoglobin [Mass/volume] in Blood 9.0 g/dL 13.5-18 L [facility] Hematocrit [Volume Fraction] of Blood by Automated count 26.5 % 4 1-53 L [facility] Erythrocyte mean corpuscular volume [Entitic volume] by Auto mated count 95.9 fL 80-96 [facility] Erythrocyte mean corpuscular hemoglobin [Entitic mass] by Automated count 32.5 pg 27-33 [facility] Erythrocyte mean corpuscular hemoglobin concentration [Mass/volume] by Automated count 33.8 g/dL 32.0-36.0 [facility] E[facility]th[facility] distribution width [Ratio] by Automated count 15.6 % 11.5-14.5 H [facility] Platelets [#/volume] in Blood by Automated count 139 10*3/uL 150-400 L [facility] Differential cell count method - Blood [facility] Neutrophils/100 leukocytes in Blood by Automated count 56 % [facility] Lymphocytes/100 leukocytes in Blood by Automated count 33 % [facility] Monocytes/100 leukocytes in Blood by Automated count 4 % [facility] Eosinophils/100 leukocytes in Blood by Automated count 6 % [facility] Basophils/100 leukocytes in Blood by Automated count 1 % [facility] Neutrophils [#/volume] in Blood by Automated count 2.78 10*3/uL 1.8-7 .0 [facility] Lymphocytes [#/volume] in Blood by Automated count 1.64 10*3/uL 1.2-4 .0 [facility] Monocytes [#/volume] in Blood by Automated count 0.22 10*3/uL 0-0.8 [facility] Eosinophils [#/volume] in Blood by Automated count 0.29 10*3/uL 0-0.5 [facility] Basophils [#/volume] in Blood by Automated count 0.03 10*3/uL 0-0.2 [facility] Nucleated erythrocytes/100 leukocytes [Ratio] in Blood by Automated count 0 /100{WBCs} 0-0 [facility] ID Date Data Source [id number] 03/22/2020 05:24:51 AM EDT [facility] Name Value Range Interpretation Code Description Data Hazel rce(s) Supporting Document(s) Albumin [Mass/volume] in Serum or Plasma by Bromocresol green (BCG) dye binding method 3.0 g/dL 3.5-5.2 L [facility] Bilirubin.total [Mass/volume] in Serum or Plasma 0.4 mg/dL <1.2 [facility] Calcium [Mass/volume] in Serum or Plasma 8.3 mg/dL 8.6-10.0 L [facility] Chloride [Moles/volume] in Serum or Plasma 100 mmol/L 98-107 [facility] Creatinine [Mass/volume] in Serum or Plasma 0.98 mg/dL 0.70-1.20 [facility] Glucose [Mass/volume] in Serum or Plasma 201 mg/dL 70-140 H [facility] Alkaline phosphatase [Enzymatic activity/volume] in Serum or Plasma 96 U/L 40-129 [facility] Potassium [Moles/volume] in Serum or Plasma 3.5 mmol/L 3.4-5.1 [facility] Protein [Mass/volume] in Serum or Plasma 5.3 g/dL 6.4-8.3 L [facility] Sodium [Moles/volume] in Serum or Plasma 135 mmol/L 136-145 L [facility] Aspartate aminotransferase [Enzymatic activity/volume] in Serum or Plasma 34 U/L <40 [facility] Urea nitrogen [Mass/volume] in Serum or Plasma 11 mg/dL 6-20 [facility] Osmolality of Serum or Plasma by calculation 284 mosm/kg 275-300 [facility] Creatinine/Urea nitrogen [Mass Ratio] in Serum or Plasma 12 [facility] Bicarbonate [Moles/volume] in Serum 24 mmol/L 22-29 [facility] Alanine aminotransferase [Enzymatic activity/volume] in Seru m or Plasma 20 U/L <41 [facility] Anion gap 3 in Serum or Plasma 11 mmol/L 8-15 [facility] Glomerular filtration rate/1.73 sq M pre dicted among non-blacks [Volume Rate/Area] in Serum or Plasma by Creatinine-based formula (MDRD) >6 0 [facility] Glomerular filtration rate/1.73 sq M pre dicted among blacks [Volume Rate/Area] in Serum or Plasma by Creatinine-based formula (MDRD) >60 [facility] ID Date Data Source [id number] 03/22/2020 05:58:27 AM EDT [facility] Name Value Range Interpretation Code Description Data Hazel rce(s) Supporting Document(s) Glucose [Mass/volume] in Capillary blood by Glucometer 203 mg/dL 70- 140 H [facility] ID Date Data Source [id number] 03/22/2020 12:55:49 AM EDT [facility] Name Value Range Interpretation Code Description Data Hazel rce(s) Supporting Document(s) Glucose [Mass/volume] in Capillary blood by Glucometer 196 mg/dL 70- 140 H [facility] ID Date Data Source [id number] 03/21/2020 09:26:29 PM EDT [facility] Name Value Range Interpretation Code Description Data Hazel rce(s) Supporting Document(s) [facility] MVLSXb2xVfVLTeWw47/EXSfbLWOkf7UyUApsUPt9DMomUYByD5AqZIP2uZ1aKWI2GWfCAcHdXlVtOuAi lbm [file] AgICAgICAgICAgICAgICAgICAgICAgICAgICAgICAg FVZnXGTqZEVfXXBiYTAwTLQvZLOyXDUjSPUwMCMsNPJtOVClIKEdTNGnWUHhEXZvFOTjIF5NUJJuNLYf ICAgICAgICAgICAgICAgICAgICAgICAgICAgICAgICAgICAgICAgICAgICAgICAgICAgICAgICAgICAg ICAgICAgICAgICAgICAgICAgICAgICAgICAgICAgIC VuCR0WEBPoHMRzKQDlTZUpVRDzNYVkZGKfKJUnPGOxWCRuUKIdVIOnCSCxDAEkDRXpHZHfHESxHAHsYF CpVRBiRPBmFJEqTMSfRYBsEJRuKXClNAEqOITcGRTbORMpVJSlITVmMCPiHN6ZWJVwUQKmXNIiVOLkBZ AgICAgICAgICAgICAgICAgICAgICAgICAgICAgICAg OUShYSTeURDcBWXiPXReAILnASHcKBUxDZKxELSoANDrBOViXBHvHUBrGFSqFHTqWDNxVLApDI6MEQZp ICAgICAgICAgICAgICAgICAgICAgICAgICAgICAgICAgICAgICAgICAgICAgICAgICAgICAgICAgICAg ICAgICAgICAgICAgICAgICAgICAgICAgICAgICAgIC PnEGIvZR2RUZNmCCShCCXvFRXuZSLvFUXtGKQhJKMoCFWhQNMtJRMyZSLiSLYjQXMcIRBmWGAeGJQzEB VkBBVyFZEfBDErLNPgYFQwDMCyNAXzTQRaXILrRNHoZRMbMPNsMQJsTDYgVCRwUL9UYCPbFDCmYDDeUJ AgICAgICAgICAgICAgICAgICAgICAgICAgICAgICAg ZQZbWWGcSRMxYKHdHJLlMWYuLNXvUBCwASUxMTReSFSkBIAdYMVnOQMpZGXyUTBbVJLrBFMmREOfYG2Y ICAgICAgICAgICAgICAgICAgICAgICAgICAgICAgICAgICAgICAgICAgICAgICAgICAgICAgICAgICAg ICAgICAgICAgICAgICAgICAgICAgICAgICAgICAgIC VqHFXlYJFzWM4XOTPrDRCaWFRzHUAjGOPgILDiZUEqWWUfJBGhVMEqUTNyFEKkDIQkJEWsPZOrAQStFD AkMYDqSQOcIZFmWTHgJMHgNTZhZOZgIXDyISGwCLDwLXYqXHWbCJKsZNQjMEBzGQYkXG6QFT67qQYin0 N7GJSlOK5tyhj/Rp3BZEgtojPdmKTiLD7IRjXwDO1o nf2BGeSdHF1ifs9HQLmGEeQuP3K7uNUyYRDwVPCQNbGqM88xZFfeSm47OKcdKUUeNxWtSEy3Pg9ZAjPj A5ylRVBnCtS0DZLxOqI4WUAaEyN6BKQqMgTcITRuLQJrLVHyROVLNB1ZWhToR9AknM23GVRJMh3+DQpl siYzWnrFQmHpTHKsm5WxZBk1VK4CYUGpFrcmj0UuDc UxGYGVQLajYD1INBN7WOWgVEOuEa2YSQJuM076apEpAC5ZHm1HQzIiIE6gym1KVqOoTVIlVbfYLrn0XQ oqWE4InGJhQVpVc80afUb0vvCjxORHh61qzYCfAHTAftmli395o0caRNULHXQgqDQ2DtPgJrXsQmDtPO U2BZLgUB2qHMbgBP2ECYO7VYpyEUXmXJWrI6lJZsDj FHBiTxFnkUgnWK7WVdQpT5LimwWzlULsDQBoVJRXRy8+EVbjfeUhRdwIMcIhBSVwp9XgITa9WE4HZYHg BXwmVM7QHNKigT7tUHjiKQ3RSxCgHCGcVMHLSmOqM94kqJEwDWi7M3PfZcDsHTMkGkluOEQfJAdhJiKu ZXMgWyBdDQogID4+ID4+EUkrFL7NHUuawyYiUTBkZi 3FNYPeFXUqNS0eTKWzTOWfD0S0xCxcMWEOPqBdO5mmspraEB5aPPIcB616pScvtjGkJMZxTWGtSe8RRK RnQET8ZYQpuFAdWhsvNBXTZDlaLI7RhBQkHRB1mY7gWBebEGDgAOHtV7lTTdYidGblHB44pSmzqsYiqD BdDQo+Ts4DGY6ue9LqYHx2jeEdBPaaPGAsBAumIDGt ZIGhIACbALA5SSD4NJRFCxSdXWTxMIUiOWqhZRHrEOPawd7XTGZgPZTgZELcRmIgUJAzHNEuLIlsIUEf LQU9UzT5MXShWTKaRU8ZCnIfYARzMDCfAHedVFKlPWCzlz6LMGTcTBJpBgR1BePvQONrSQLuKFdpLIXg TCOxSoZdZUHfZDImEO4HBpTbUMAdGHS1EQSeYJYiKV Vmor3IZNHuTGMdCrPjUTHbVWVmKLLaBOolQOFoMFXiOUP9SHGjBNNyLB4BHzGkSPOhZMHkOWwqXIRyUV Beuq7WSYEeYAJeGpStJJIwJHFtQEDwBMclZDUyPIQ8ThVkITJuXXKlNY2LMwBwQOWyYZv1CZfvABNvOM Jyon4BSKUrGPTrPomqNPLdVKLhRWFaHNjdWIAdPOE2 WiO6BAHdJBLoFX6LWnTkLHRcKTr0HwBzQKEqEOUtrq4JTGCdHJGdYHQ0ZVZtOQQwEQArGUzfDQMfCIRz INOlNHUcPQHiIA9XFzXcSJPdOeInZCTkSDSaZXIuvl0ZKJNpGCLwHON2YaClJQOvYLHvBBwhVOHcPJZw Uil2UVImEDFhHK0RGaCeZSXlUdJiZWXbZPOoIBRatp 0LOHWhEDMlEvXlOPOfQWOsEAWaQPbeJREeATAsHFD6PGFcIXBkJA7MCnLxVZCuDnU7UXDfQOEtUXWara 4JXZIvEIRlSmLqGUPpDAFsSTTmGNvqSQJfJYOsDRQiBIFxVIQpHT7EQgObEXJzFhViLQXdGCLfGDCnwa 1LZVAxBGHbSDFuUkJdNURyCVBvEUuoNDHvPAE2QMws NMXsYGJdFI9QIlOnPGJwQxE3LNBvEEMjFLHsqx6BBSVnKBIeIkSuOGCrVDQlKEPyUXn8izEzvBWbZOn0 JV0AK3HihqDeSaOIXe2Et436JHFkBSIuYv5SS1zvAe5eCPZeIEHJXq5PAXw9PWYmDoR2MEO0ZWFhHTnu CAQoMHK9CQolZcCzGuEaCIS+MJu3NAGrNMZ5XrSePU LgYOSiUVQjKgHrYgIgSWLuEFJ5CA5pTEXTTa2+QSegoIPnaUqxOBAMZmN2OgA4VMiiZZFFEb4N ID Date Data Source [id number] 03/21/2020 09:12:58 PM EDT [facility] Name Value Range Interpretation Code Description Data Hazel rce(s) Supporting Document(s) Consultation [facility] TDYWUd8aVySYYcAc46/ORRjcKDZvv4OqWEddCFz8LLhlGQZnI4ThVFP8pC8qJQS7JQbQIeLkAoOgLcUs lbm [file] A2LQXjPeu8Vc4lUGCDBg2+UJtwkJMjcFifVIWABcfxGIdmTWqrJDEQVl4X ID Date Data Source [id number] 03/21/2020 09:51:13 PM EDT [facility] Name Value Range Interpretation Code Description Data Hazel rce(s) Supporting Document(s) Leukocytes [#/volume] in Blood by Automated count 3.6 10*3/uL 4-10 L [facility] Erythrocytes [#/volume] in Blood by Automated count 2.45 10*6/uL 4.6- 6.1 L [facility] Hemoglobin [Mass/volume] in Blood 8.1 g/dL 13.5-18 L [facility] Hematocrit [Volume Fraction] of Blood by Automated count 23.9 % 4 1-53 L [facility] Erythrocyte mean corpuscular volume [Entitic volume] by Auto mated count 97.8 fL 80-96 H [facility] Erythrocyte mean corpuscular hemoglobin [Entitic mass] by Automated count 33.0 pg 27-33 [facility] Erythrocyte mean corpuscular hemoglobin concentration [Mass/volume] by Automated count 33.8 g/dL 32.0-36.0 [facility] Erythrocyte distribution width [Ratio] by Automated count 16.2 % 11.5-14.5 [facility] Platelets [#/volume] in Blood by Automated count 124 10*3/uL 150-400 L [facility] Differential cell count method - Blood [facility] Neutrophils/100 leukocytes in Blood by Automated count 60 % [facility] Lymphocytes/100 leukocytes in Blood by Automated count 28 % [facility] Monocytes/100 leukocytes in Blood by Automated count 7 % [facility] Eosinophils/100 leukocytes in Blood by Automated count 4 % [facility] Basophils/100 leukocytes in Blood by Automated count 1 % [facility] Neutrophils [#/volume] in Blood by Automated count 2.16 10*3/uL 1.8-7 .0 [facility] Lymphocytes [#/volume] in Blood by Automated count 0.99 10*3/uL 1.2-4 .0 L [facility] Monocytes [#/volume] in Blood by Automated count 0.26 10*3/uL 0-0.8 [facility] Eosinophils [#/volume] in Blood by Automated count 0.14 10*3/uL 0-0.5 [facility] Basophils [#/volume] in Blood by Automated count 0.03 10*3/uL 0-0.2 [facility] Nucleated erythrocytes/100 leukocytes [Ratio] in Blood by Automated count 0 /100{WBCs} 0-0 [facility] ID Date Data Source [id number] 03/21/2020 05:23:46 PM [facility] Name Value Range Interpretation Code Description Data Hazel rce(s) Supporting Document(s) Glucose [Mass/volume] in Capillary blood by Glucometer 138 mg/dL 70- 140 [facility] ID Date Data Source [id number] 03/21/2020 05:06:57 PM [facility] NM GI BLOOD LOSS IMAGING [id number] RESU LTInterpreted by:Bebeto Torres, DOINDICATION: GI bleedTECHNIQUE: Following the intravenous injection of 31.2 mCi of Tc-99m tagged autologous RBCs, planar images of the abdomen were obtained over the course of one hour.COMPARISON: None. FINDINGS: Expected radiopharmaceutical uptake is seen in the liver, spleen and blood pool. No significant pool of radiopharmaceutical activity is identified over the region of the bowel to suggest GI blood loss. However, if patient re-bleeds within 24 hours, additional follow-up imaging may be obtained with the current radiopharmaceutical activity. IMPRESSION:No evidence of acute gastrointestinal bleeding.This document has been electronically signed by Quintin Serrano MD on 03/21/2020 5:04 PM Name Value Range Interpretation Code Description Data Hazel rce(s) Supporting Document(s) ID Date Data Source [id number] 03/21/2020 02:42:34 PM [facility] Name Value Range Interpretation Code Description Data Hazel rce(s) Supporting Document(s) Leukocytes [#/volume] in Blood by Automated count 3.8 10*3/uL 4-10 L [facility] Erythrocytes [#/volume] in Blood by Automated count 2.69 10*6/uL 4.6- 6.1 L [facility] Hemoglobin [Mass/volume] in Blood 8.7 g/dL 13.5-18 L [facility] Hematocrit [Volume Fraction] of Blood by Automated count 26.0 % 4 1-53 L [facility] Erythrocyte mean corpuscular volume [Entitic volume] by Auto mated count 96.8 fL 80-96 H [facility] Erythrocyte mean corpuscular hemoglobin [Entitic mass] by Automated count 32.4 pg 27-33 [facility] Erythrocyte mean corpuscular hemoglobin concentration [Mass/volume] by Automated count 33.5 g/dL 32.0-36.0 [facility] Erythrocyte distribution width [Ratio] by Automated count 16.1 % 11.5-14.5 H [facility] Platelets [#/volume] in Blood by Automated count 135 10*3/uL 150-400 [facility] ID Date Data Source [id number] 03/21/2020 01:56:17 PM EDT [facility] Value Range Interpretation Code Description Data Hazel rce(s) Supporting Document(s) Sodium [Moles/volume] in Urine 99 mmol/L [facility] ID Date Data Source [id number] 03/21/2020 12:48:47 PM [facility] Value Range Interpretation Code Description Data Hazel rce(s) Supporting Document(s) Glucose [Mass/volume] in Capillary blood by Glucometer 122 mg/dL 70- 140 [facility] ID Date Data Source [id number] 03/21/2020 12:24:31 PM EDT [facility] Value Range Interpretation Code Description Data Hazel rce(s) Supporting Document(s) Lactate [Moles/volume] in Serum or Plasma 1.4 mmol/l 0.5-2.2 [facility] ID Date Data Source [id number] 03/21/2020 12:28:34 PM [facility] Value Range Interpretation Code Description Data Hazel rce(s) Supporting Document(s) Osmolality of Serum or Plasma 285 mosm/kg 285-295 [facility] ID Date Data Source [id number] 03/21/2020 09:03:30 AM EDT [facility] Name Value Range Interpretation Code Description Data Hazel rce(s) Supporting Document(s) [facility] LJSDOt1yWdIPJoWiu9OrAqNqCOVyUU7kakr9T9Y7wLEvX8ObjULvx5gsC6PzM9JxETMtRRYEIO6GeJRy jb2 [file] KEMB5bJHXEAxWRxZ0eBNfXM6JEZFGmgLT8TQeLIOVT 7YFBGV6lMNJPGuXMIS6qXLsMD7ZJARGpyFPjJRqGW0PU6vLBUS8aEBSPUcEXWA3liAIMB3jWPICmsUYo JOzrZaAC3lZLWa0pGEGUWdEN2V5xbDCPn9dZXEgigKDHJVavFYXC89UZYr4mWFzJMQGj+09GmaYwOLL9 dCNKm1jacbfqOwIJJV5L1IX7xsMgLJ4v3WE5rjeoTI 7z3KO1bvfbFismEBHdRj4phK+1aOrbxvFdgq+oyNwrYfJqSA6GcAiIQ7Tywjgv2Xtubyz5Ke9e58imlH D5e40Is+ou9abhZ1/BkSVeeqO4zn2HlXZFoY/JJOZUiFt52c3Dra17HDWYZmelh72dwaLhjH/PQXYYeR qk2g3YNp87eCeIJ+dr8w74yVucS6DIhbZzUoBd54U7 s92Ih8CPxT/YEnXPhSya3n8GIa76vTcCk/+pCyD+dAS5J1Vc2mJ6t+pL/dSKyqihunIlW62PBbA6YoNl TsQ/xPd7U2ZP/8oHBX3U1yBkNf/geRyn1fZ67L7Gw6as3a+5D+6IVho96xyoWOs4/lDSHhNsptjNsYtz EsM3obgEyOpZf4NscWgV5rI+i0cn4S5dF7LM8R0VLm x2reYcbH0DKca3OeYusI8AWzz43fVjkS8TUly3tNEhdua/Wv98puAmt3kLx1/eDsA3edTvK0dFZ+Ia1T QGdE7faQnP8trPGF9dkEeob9bmMiu8lcXcG0f6v8rc4//oirdbi5B1iRmxq605/+xm9oMGohUejOz/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 [file] nl0hNiKG/5r//glass frame fitter/+H/+Wf/+M///X/+wvxa6wg8Kp1c/b9GP/I7uzkdAk+8ATWvj/xLnc/BDkzk6voYi [file] BbJ9UKI7fKXaThc8AnFgKUjmTNOTWy== ID Date Data Source [id number] 03/21/2020 12:24:04 PM EDT [facility] Name Value Range Interpretation Code Description Data Hazel rce(s) Supporting Document(s) Glucose [Mass/volume] in Capillary blood by Glucometer 129 mg/dL 70- 140 [facility] ID Date Data Source [id number] 03/21/2020 07:07:53 AM EDT [facility] CT ABDOMEN WITH CONTRAST [id number] RESU LTInterpreted by:Lewis Duff MDPROCEDURE INFORMATION: Exam: CT Abdomen With Contrast Exam date and time: 03/21/2020 5:55 AM Age: 55 years old Clinical indication: Other: Abdominal pain and liver evaluation TECHNIQUE: Imaging protocol: Computed tomography images of the abdomen with intravenous contrast. Radiation optimization: All CT scans at this facility use at least one of these dose optimization techniques: automated exposure control; mA and/or kV adjustment per patient size (includes targeted exams where dose is matched to clinical indication); or iterative reconstruction. Contrast material: OMNI 300; Contrast volume: 100 ml; Contrast route: INTRAVENOUS (IV); COMPARISON: CT ABD/PEL W/IV CONTRAST ONLY 03/20/2020 4:09 PM FINDINGS: There is an IVC filter. There are calcifications in the head of the pancreas. There is associated pancreatic ductal dilatation and atrophy of the gland. There is no bile duct dilatation. Findings are similar to the previo us exam. There is an 11 mm left renal cyst. This is similar to the previous exam. The liver, spleen, adrenals and kidneys otherwise appear unremarkable. There are no abdominal masses. There are no abnormal fluid collections. No inflammatory changes are seen. No free air is seen. The gallbladder has been removed. The visualized appendix appears unremarkable. The visualized bowel gas pattern is normal. The abdominal aorta is normal in caliber. There is coronary artery calcification. There is a small hiatus hernia. IMPRESSION: Probable pancreatic and possible bile ductal calculi with pancreatic ductal dilatation. No other acute findings.THIS DOCUMENT HAS BEEN ELECTRONICALLY SIGNED BY ELWIS DUFF MDThis document has been electronically signed by Lewis Duff MD on 03/21/2020 7:07 AM Name Value Range Interpretation Code Description Data Hazel rce(s) Supporting Document(s) ID Date Data Source [id number] 03/21/2020 06:22:38 AM [facility] Name Value Range Interpretation Code Description Data Hazel rce(s) Supporting Document(s) Leukocytes [#/volume] in Blood by Automated count 4.2 10*3/uL 4-10 [facility] Erythrocytes [#/volume] in Blood by Automated count 2.75 10*6/uL 4.6- 6.1 L [facility] Hemoglobin [Mass/volume] in Blood 8.8 g/dL 13.5-18 L [facility] Hematocrit [Volume Fraction] of Blood by Automated count 26.4 % 4 1-53 L [facility] Erythrocyte mean corpuscular volume [Entitic volume] by Auto mated count 95.9 fL 80-96 [facility] Erythrocyte mean corpuscular hemoglobin [Entitic mass] by Automated count 32.1 pg 27-33 [facility] Erythrocyte mean corpuscular hemoglobin concentration [Mass/volume] by Automated count 33.5 g/dL 32.0-36.0 [facility] Erythrocyte distribution width [Ratio] by Automated count 15.8 % 11.5-14.5 H [facility] Platelets [#/volume] in Blood by Automated count 143 10*3/uL 150-400 L [facility] Differential cell count method - Blood [facility] Neutrophils/100 leukocytes in Blood by Automated count 70 % [facility] Lymphocytes/100 leukocytes in Blood by Automated count 22 % [facility] Monocytes/100 leukocytes in Blood by Automated count 6 % [facility] Eosinophils/100 leukocytes in Blood by Automated count 1 % [facility] Basophils/100 leukocytes in Blood by Automated count 1 % [facility] Neutrophils [#/volume] in Blood by Automated count 2.95 10*3/uL 1.8-7 .0 [facility] Lymphocytes [#/volume] in Blood by Automated count 0.92 10*3/uL 1.2-4 .0 L [facility] Monocytes [#/volume] in Blood by Automated count 0.25 10*3/uL 0-0.8 [facility] Eosinophils [#/volume] in Blood by Automated count 0.05 10*3/uL 0-0.5 [facility] Basophils [#/volume] in Blood by Automated count 0.02 10*3/uL 0-0.2 [facility] Nucleated erythrocytes/100 leukocytes [Ratio] in Blood by Automated count 0 /100{WBCs} 0-0 [facility] ID Date Data Source [id number] 03/21/2020 06:40:49 AM EDT [facility] Name Value Range Interpretation Code Description Data Hazel rce(s) Supporting Document(s) Albumin [Mass/volume] in Serum or Plasma by Bromocresol green (BCG) dye binding method 3.3 g/dL 3.5-5.2 L [facility] al Bilirubin.total [Mass/volume] in Serum or Plasma 0.7 mg/dL <1.2 [facility] Calcium [Mass/volume] in Serum or Plasma 7.7 mg/dL 8.6-10.0 L [facility] Chloride [Moles/volume] in Serum or Plasma 97 mmol/L 98-107 L [facility] Creatinine [Mass/volume] in Serum or Plasma 0.93 mg/dL 0.70-1.20 [facility] Glucose [Mass/volume] in Serum or Plasma 142 mg/dL 70-140 H [facility] Alkaline phosphatase [Enzymatic activity/volume] in Serum or Plasma 99 U/L 40-129 [facility] Potassium [Moles/volume] in Serum or Plasma 3.5 mmol/L 3.4-5.1 [facility] Protein [Mass/volume] in Serum or Plasma 5.3 g/dL 6.4-8.3 L [facility] Sodium [Moles/volume] in Serum or Plasma 132 mmol/L 136-145 L [facility] Aspartate aminotransferase [Enzymatic activity/volume] in Serum or Plasma 42 U/L <40 H [facility] Urea nitrogen [Mass/volume] in Serum or Plasma 15 mg/dL 6-20 [facility] Osmolality of Serum or Plasma by calculation 277 mosm/kg 275-300 [facility] Creatinine/Urea nitrogen [Mass Ratio] in Serum or Plasma 16 [facility] Bicarbonate [Moles/volume] in Serum 23 mmol/L 22-29 [facility] Alanine aminotransferase [Enzymatic activity/volume] in Seru m or Plasma 23 U/L <41 [facility] Anion gap 3 in Serum or Plasma 12 mmol/L 8-15 [facility] Glomerular filtration rate/1.73 sq M pre dicted among non-blacks [Volume Rate/Area] in Serum or Plasma by Creatinine-based formula (MDRD) >6 0 [facility] Glomerular filtration rate/1.73 sq M pre dicted among blacks [Volume Rate/Area] in Serum or Plasma by Creatinine-based formula (MDRD) >60 [facility] ID Date Data Source [id number] 03/21/2020 06:36:33 AM [facility] Value Range Interpretation Code Description Data Hazel rce(s) Supporting Document(s) ABO and Rh group [Type] in Blood [facility] Blood bank comment [facility] ID Date Data Source [id number] 03/21/2020 01:45:26 AM [facility] Value Range Interpretation Code Description Data Hazel rce(s) Supporting Document(s) History and Physical [facility] VGBKGl2jPhOGEgDw62/IYWljVHOvx1XsBIgkSHi0GZmzDSDoF6VlQRG3rT8wTMQ1CMgIHoEvXiPlPrYe lbm KzAhkYEiQcFMTeZtnVEsEjRWrmHmosgAHvPX4FiPL8UWKgQ86mQMCmFEIlN9JgPQU8AQA+Mb2PLZQuyX MoOF1VWapY7G8aE3fAJk5+Vfc/QPAU4AQFSKF3p45rTIRtEJame+uq+OHmNL21wapfD+2fV2yMf78rO6 lqUIDF2G4GLcRxvzf89/SMlcr/+6NyQ54yIQdw//LP FDQS4Bs4/J7bEzucr7SXt3BH5JSoEr9w/xO478UTQ8b4JCcLkqsmPnc7qibeHa3UgPGTfa05a34rt1zp vzYYf6TT00cZPX9oR+tHn2iphg0BTd6+2RGbjqht8r3GWf/pX3Rlgk7fzwlemMOk4GNcUKT4uUxmJ7eS Ej1jIr5qL7yAf2oypDfIj9Bjbc0Or39EOj6uUR/Laney [file] ogICAgICAgICAgICAgICAgICAgICAgICAgICAgICAg ICAgICAgICAgICAgICAgICAgICAgICAgICAgICAgICAgICAgICAgICAgICAgICAgICAgICAgICAgICAg ICAgICAgICAgDQogICAgICAgICAgICAgICAgICAgICAgICAgICAgICAgICAgICAgICAgICAgICAgICAg ICAgICAgICAgICAgICAgICAgICAgICAgICAgICAgIC AgICAgICAgICAgICAgICAgICAgDQogICAgICAgICAgICAgICAgICAgICAgICAgICAgICAgICAgICAgIC AgICAgICAgICAgICAgICAgICAgICAgICAgICAgICAgICAgICAgICAgICAgICAgICAgICAgICAgICAgIC AgDQogICAgICAgICAgICAgICAgICAgICAgICAgICAg ICAgICAgICAgICAgICAgICAgICAgICAgICAgICAgICAgICAgICAgICAgICAgICAgICAgICAgICAgICAg ICAgICAgICAgICAgDQogICAgICAgICAgICAgICAgICAgICAgICAgICAgICAgICAgICAgICAgICAgICAg ICAgICAgICAgICAgICAgICAgICAgICAgICAgICAgIC AgICAgICAgICAgICAgICAgICAgICAgDQogICAgICAgICAgICAgICAgICAgICAgICAgICAgICAgICAgIC AgICAgICAgICAgICAgICAgICAgICAgICAgICAgICAgICAgICAgICAgICAgICAgICAgICAgICAgICAgIC AgICAgDQogICAgICAgICAgICAgICAgICAgICAgICAg ICAgICAgICAgICAgICAgICAgICAgICAgICAgICAgICAgICAgICAgICAgICAgICAgICAgICAgICAgICAg ICAgICAgICAgICAgICAgDQogICAgICAgICAgICAgICAgICAgICAgICAgICAgICAgICAgICAgICAgICAg ICAgICAgICAgICAgICAgICAgICAgICAgICAgICAgIC AgICAgICAgICAgICAgICAgICAgICAgICAgDQogICAgICAgICAgICAgICAgICAgICAgICAgICAgICAgIC AgICAgICAgICAgICAgICAgICAgICAgICAgICAgICAgICAgICAgICAgICAgICAgICAgICAgICAgICAgIC AgICAgICAgDQogICAgICAgICAgICAgICAgICAgICAg ICAgICAgICAgICAgICAgICAgICAgICAgICAgICAgICAgICAgICAgICAgICAgICAgICAgICAgICAgICAg ZXSnBVTsRBXtCGScJHBnSAXjOQw3E5paBIUuFVDfAN0gUFf0Kv5+TBhYPqHiWPU0inUacH7EYT4sm5Ko CDgmHLSwy7MbPZj4DF6MGMWoNJubBH2MMEahvu3HNP QbVXOtuROEq0xsJjUaEJS9QZTwVbqvCP0OTLAgJ9ooxeGnDTLlJENPOAceBJGRBAjvCMJKOZLzTADlLn FlClItXLFjOUTjQFVPQE1VPlFgH1WivD34YUTHCt9+SBvwacRhHpyBYjM9NTNrj6RtRLx9JE7HWSYlRj wng5RnOaFhCRBPMTaoRX4ZRKB5BCV3IEWoLu3IVFTy C980chRgYM1HLi4IOvOpOG8doi5HBhMqKXEcYypQVkt9MWxfNM9IzRUtWMgCGwVhMahhHwHvuLsxLiJv q8AxTW3xGX7AIVT5ESdlDKCmBrShYMKjGEn6YhYDSSqGRxArQ6Wyg8BnAeE2RBHhWjAtAUfhSMKiNaI9 GK70qVtjZA0FOBDxIFUvAI00LDH1XAFzEb7HJf2PFh ZoAU6jyl5NDkrvCYZoObhQDav8LZusWP8BpIBoH1DnnNUhn3xTCmCoK0QRDFVtZHSbVl0CTOFyTsJtKK HaMLpzNH7aBSQdOKHRhAqikhU8NK5CCD6ehrQoFX5UBjZgQp8iWv2JDxHtH9YlL5JzXOQiDMFSUWroES 6EUCyiLQ1sER2Ny8SAeRTwmI3qic9LWLUnARGdOlqt fw5FTducL3C9sZmhEPAkEzHnEHHJJEadDL4TCJLpFEZ5FCTlEZHwGRXGMxPvU43rEG6TW7Xvm21oBlP0 JEZqQpMyYGwlPA52iKatpuAhoYZxgIxeLV2CBu7+DQplbmRvYmoNCnhyZWYNCjAgMzgNCjAwMDAwMDAw HKGwAiM0GaIbPm6BSHQtAOBxYUWbBlHhGAWoVDEzSB rzUKMlXKZwJCw3MLXgZPQpIT6NKrQiYEFzUQL2VeXwXCNqBDVgtw7HBUSlVTFoMIK0DvYgVKLwRXQzTR gkOEQtGMI2JIXcNEUbUHBtUT2ESyRwZIXeIXHaNSGwPJQvHUItzi3JUUFhJLVnGPJaXaOmKEIjYPChCR ewRAQeOGN2GXS4NCRyWELyXX3YXqUaGFYdIWE6EtTk JRYpXXCkso6CZIBfPGXnJHoxAoBzNHVgRPNkMJwoKXTlMWC5Krf7JNNoAPNoVG9IHaElCUCyGHX5DLZb YWNgPVFmds6PFWZrRIUhDDZpNZZiMDUrJUYuGObcIFIcLUR7KfEwZNPgLVFiUB6PStQhFJVsWsKpBxXh IUToISKxyr5ZKWGaXPYhWgDnTzArGSYaBPDeVBnpEL NuTETeNCk4CWVfOLStED6TKlFaEUXbIrB4CHXkOKWvWHRntv6CBKGsLGShIsl8NnYvFOXaZXXmJCoaLB QwWVA7RNO3BPHuCFVgSJ6LWaOmGEAwVoKmDhulRUMpZUDhhh5FJCMgPPAgYPTnAkUpCQEsUAIzOKtsGR JoQUM3DOs8FWMcEEOmTK8QGaSxJQUaIeXiVxZsRCBn QPExdu8ZTQRlQYIuJqF7CoThUOWjGMCaRLxdEDKeEVU3PFLqDPTyEOFwMY4OBvWiQSZfUgvvAExvACGv ANBcty4LCIBvYJNuXFI5CMRvWUQbOZZmDHtdNSGdTQE4AdX4ELFeIPXhVH9CNtZmCZTlJfp1FTJnILUy RTGoqt1VKWTaMLZuMHc0LpGcIMZhCKBkGKfkIIAtVP X1CCv4GYTzZUSyNP7CRwWvHDFwMIHjKyVyGIKeETGlmc3DIPDjDAS4KXY3CxEeEIYbWOIyTMxlYQUmBW HfTRI7LHPkFKYxPC7JFiDuQJRrREAuNmzcQNPtWVGnoj2AJUCpVPZ2XbL9FkQkFMClTHRxDQu9tbNznU LkXFw2IU2ZC3HmwfNcDhiUKl0Xv947VGJ4XCZzKc2E B3wbIk4xWEUiGJQTKa2BUTf4JBR8NVFiURakHkB3JgW6YSUnRea1GiO2FBO9RVZtDBZ+CTwtNfb8GSOo M6L7DEubBhTmFvQhRIhxCiU8KSSqEDFqAv6cLJLYKw2+RGxuaLOxoUfwBGIZUlJeHRQcUPkfSMTXVe2F ID Date Data Source [id number] 03/21/2020 01:09:29 AM EDT [facility] Service Cmnt XXX-Imp : NoneMicroorganism XXX Cult : POSITIVE for fecal occult blood by immunochromatography. This test only detects blood (hemoglobin) from the lower GI tract. To detect bleeding from the upper tract, order Fecal Occult Blood, Upper GI (Hemoccult-SENSA). Name Value Range Interpretation Code Description Data Hazel rce(s) Supporting Document(s) ID Date Data Source [id number] 03/21/2020 02:16:22 AM [facility] Name Value Range Interpretation Code Description Data Hazel rce(s) Supporting Document(s) Amphetamine [Presence] in Urine by Screen method Negative [facility] Benzodiazepines [Presence] in [facility]rine [facility] Cannabinoids [Presence] in Urine by Screen method Negative [facility] Benzoylecgonine [Presence] in Urine [facility] Methadone [Presence] in Urine by Screen method Negative [facility] Opiates [Presence] in Urine by Screen method Negative [facility] Oxycodone [Presence] in Urine by Screen method Negative [facility] Fentanyl+Norfentanyl [Presence] in Urine by Screen method Negative [facility] Service comment [facility] Results below the indicated cutoff (ng/m L), are reported as"Negative." Note: for medical purposes only; not valid for legalor employment testing. ID Date Data Source [id number] 03/21/2020 01:54:02 AM [facility] Name Value Range Interpretation Code Description Data Hazel rce(s) Supporting Document(s) Hepatitis C virus Ab [Presence] in Serum or Plasma by Immuno assay Non Reactive A [facility] Past or current Hepatitis C infection. Roselia dennis forwarded to reference laboratory for quantitative HCV RNA testing. ID Date Data Source [id number] 03/25/2020 07:23:25 AM [facility] Name Value Range Interpretation Code Description Data Hazel rce(s) Supporting Document(s) ABO and Rh group [Type] in Blood [facility] Blood group antibody screen [Presence] in Serum or Plasma [facility] 03/24/2020,0000Performed at [facility] [place] [place] ID Date Data Source [id number] 03/21/2020 01:14:21 AM [facility] Value Range Interpretation Code Description Data Hazel rce(s) Supporting Document(s) Prothrombin time (PT) 14.6 s 12.5-14.9 [facility] INR in Platelet poor plasma by Coagulation assay 1.12 [facility] Routine intensity oral anticoagulation I NR is typically 2.0-3.0. Target INR must be clinically individualized. ID Date Data Source [id number] 03/21/2020 01:22:32 AM [facility] Value Range Interpretation Code Description Data Hazel rce(s) Supporting Document(s) Ethanol [Mass/volume] in Serum or Plasma 0.04 g/dl Negative A [facility] ID Date Data Source [id number] 03/21/2020 01:22:32 AM [facility] Value Range Interpretation Code Description Data Hazel rce(s) Supporting Document(s) Creatine kinase [Enzymatic activity/volume] in Serum or Plasma 551 U/L 20-200 H [facility] ID Date Data Source [id number] 03/21/2020 01:22:32 AM [facility] Value Range Interpretation Code Description Data Hazel rce(s) Supporting Document(s) Lipase [Enzymatic activity/volume] in Serum or Plasma 16 U/L 13-6 0 [facility] ID Date Data Source [id number] 03/21/2020 01:22:32 AM [facility] Value Range Interpretation Code Description Data Hazel rce(s) Supporting Document(s) Albumin [Mass/volume] in Serum or Plasma by Bromocresol green (BCG) dye binding method 2.9 g/dL 3.5-[facility].2 [facility] Bilirubin.total [Mass/volume] in Serum or Plasma 0.6 mg/dL <1.2 [facility] Calcium [Mass/volume] in Serum or Plasma 7.8 mg/dL 8.6-10.0 L [facility] Chloride [Moles/volume] in Serum or Plasma 104 mmol/L 98-107 [facility] Creatinine [Mass/volume] in Serum or Plasma 0.94 mg/dL 0.70-1.20 [facility] Glucose [Mass/volume] in Serum or Plasma 125 mg/dL 70-140 [facility] Alkaline phosphatase [Enzymatic activity/volume] in Serum or Plasma 89 U/L 40-129 [facility] Potassium [Moles/volume] in Serum or Plasma 4.0 mmol/L 3.4-5.1 [facility] Protein [Mass/volume] in Serum or Plasma 5.0 g/dL 6.4-8.3 L [facility] Sodium [Moles/volume] in Serum or Plasma 139 mmol/L 136-145 [facility] Aspartate aminotransferase [Enzymatic activity/volume] in Serum or Plasma 44 U/L <40 H [facility] Urea nitrogen [Mass/volume] in Serum or Plasma 17 mg/dL 6-20 [facility] Osmolality of Serum or Plasma by calculation 290 mosm/kg 275-300 [facility] Creatinine/Urea nitrogen [Mass Ratio] in Serum or Plasma 18 [facility] Bicarbonate [Moles/volume] in Serum 19 mmol/L 22-29 L [facility] Alanine aminotransferase [Enzymatic activity/volume] in Seru m or Plasma 22 U/L <41 [facility] Anion gap 3 in Serum or Plasma 16 mmol/L 8-15 H [facility] Glomerular filtration rate/1.73 sq M pre dicted among non-blacks [Volume Rate/Area] in Serum or Plasma by Creatinine-based formula (MDRD) >6 0 [facility] Glomerular filtration rate/1.73 sq M pre dicted among blacks [Volume Rate/Area] in Serum or Plasma by Creatinine-based formula (MDRD) >60 [facility] ID Date Data Source [id number] 03/21/2020 02:05:32 AM [facility] Name Value Range Interpretation Code Description Data Hazel rce(s) Supporting Document(s) Magnesium [Mass/volume] in Serum or Plasma 1.6 mg/dL 1.6-2.6 [facility] ID Date Data Source [id number] 03/21/2020 02:05:32 AM [facility] Name Value Range Interpretation Code Description Data Hazel rce(s) Supporting Document(s) Phosphate [Mass/volume] in Serum or Plasma 3.2 mg/dL 2.5-4.5 [facility] ID Date Data Source [id number] 03/21/2020 01:54:16 AM [facility] Name Value Range Interpretation Code Description Data Hazel rce(s) Supporting Document(s) Leukocytes [#/volume] in Blood by Automated count 4.8 10*3/uL 4-10 [facility] Erythrocytes [#/volume] in Blood by Automated count 2.54 10*6/uL 4.6- 6.1 L [facility] Hemoglobin [Mass/volume] in Blood 8.1 g/dL 13.5-18 L [facility] Hematocrit [Volume Fraction] of Blood by Automated count 24.3 % 4 1-53 L [facility] Erythrocyte mean corpuscular volume [Entitic volume] by Auto mated count 95.8 fL 80-96 [facility] Erythrocyte mean corpuscular hemoglobin [Entitic mass] by Automated count 31.7 pg 27-33 [facility] Erythrocyte mean corpuscular hemoglobin concentration [Mass/volume] by Automated count 33.1 g/dL 32.0-36.0 [facility] Erythrocyte distribution width [Ratio] by Automated count 16.2 % 11.5-14.5 H [facility] Platelets [#/volume] in Blood by Automated count 138 10*3/uL 150-400 L [facility] Differential cell count method - Blood [facility] Neutrophils/100 leukocytes in Blood by Automated count 62 % [facility] Lymphocytes/100 leukocytes in Blood by Automated count 28 % [facility] Monocytes/100 leukocytes in Blood by Automated count 6 % [facility] Eosinophils/100 leukocytes in Blood by Automated count 3 % [facility] Basophils/100 leukocytes in Blood by Automated count 1 % [facility] Neutrophils [#/volume] in Blood by Automated count 3.01 10*3/uL 1.8-7 .0 [facility] Lymphocytes [#/volume] in Blood by Automated count 1.32 10*3/uL 1.2-4 .0 [facility] Monocytes [#/volume] in Blood by Automated count 0.27 10*3/uL 0-0.8 [facility] Eosinophils [#/volume] in Blood by Automated count 0.14 10*3/uL 0-0.5 [facility] Basophils [#/volume] in Blood by Automated count 0.03 10*3/uL 0-0.2 [facility] Nucleated erythrocytes/100 leukocytes [Ratio] in Blood by Automated count 0 /100{WBCs} 0-0 [facility] ID Date Data Source [id number] 03/21/2020 01:37:06 AM EDT [facility] Name Value Range Interpretation Code Description Data Hazel rce(s) Supporting Document(s) HIV 1+2 Ab+HIV1 p24 Ag [Presence] in Serum or Plasma by Immu noassay Non Reactive [facility] Negative for HIV-1 p24 antigenand HIV-1/ HIV-2 antibodies. Nolaboratory evidence of HIVinfection. ID Date Data Source [id number] 03/21/2020 01:20:12 AM EDT [facility] Name Value Range Interpretation Code Description Data Hazel rce(s) Supporting Document(s) Lactate [Moles/volume] in Serum or Plasma 3.0 mmol/l 0.5-2.2 H [facility] ID Date Data Source [id number] 03/21/2020 02:41:56 AM EDT [facility] Name Value Range Interpretation Code Description Data Hazel rce(s) Supporting Document(s) Glucose [Mass/volume] in Capillary blood by Glucometer 126 mg/dL 70- 140 [facility] ID Date Data Source [id number] 02/24/2020 11:43:04 AM EDT [facility] Current Medications: BD INSULIN SYR ULTR AFINE II 31G X 5/16" 0.3 ML (INSULIN SYRINGE-NEEDLE U-100) TRAMADOL HCL 50 MG ORAL TABLET (TRAMADOL HCL) ; Route: ORAL* ATENOLOL * [facility] Dental Chart: Procedures:Type - CDT Code - Description B - (D2222) No Charge Visit (Performed by Sae Slaughter DDS) B - (D1999) Unspecified preventive procedure, by report on Tooth # 10 (Performed by Sae Slaughter DDS) Chart Notes:luciana (Feb 24 2020 12:21PM): Pt presents for teeth wax try-in. Pt is happy with look and feel of maxillary and mandibular dentures, sent to [place] lab to finalize.Temperature: 98.1 passed COVID questionaireAdditional PPE were used due to COVID-19. This included a minimum of a N95, a surgical mask, a hair covering, a face shield, proctective eyewear, and a gown.NV: delivery, upper and lower Sae Cox DDS by luciana (02/24/2020 12:21 PM): Tooth Notes and Watches: Assessment & Plan Medications:BD INSULIN SYR ULTRAFINE II 31G X 5/16" 0.3 MLTRAMADOL HCL 50 MG ORAL TABLETATENOLOLGLUCAPHAGE Name Value Range Interpretation Code Description Data Hazel rce(s) Supporting Document(s) ID Date Data Source [id number] 11/26/2019 01:47:09 PM EDT [facility] Current Medications: BD INSULIN SYR ULTR AFINE II 31G X 5/16" 0.3 ML (INSULIN SYRINGE-NEEDLE U-100) TRAMADOL HCL 50 MG ORAL TABLET (TRAMADOL HCL) ; Route: ORAL* ATENOLOL * [facility] Dental Chart: Procedures:Type - CDT Code - Description B - (D2222) No Charge Visit (Performed by Sae Slaughter DDS) Chart Notes:luciana (Nov 26 2019 2:54PM): Pt presents for jaw relationship.Genie bite reg used & Shade chosen by pt (Breann =A2).NV: teeth set in waxSabino DDS, Manoj by luciana (11/26/2019 2:54 PM): Tooth Notes and Watches: Assessment & Plan Medications:BD INSULIN SYR ULTRAFINE II 31G X 5/16" 0.3 MLTRAMADOL HCL 50 MG ORAL TABLETATENOLOLGLUCAPHAGE Name Value Range Interpretation Code Description Data Hazel rce(s) Supporting Document(s) ID Date Data Source [id number] 11/05/2019 09:59:09 AM EST [facility] Current Medications: BD INSULIN SYR ULTR AFINE II 31G X 5/16" 0.3 ML (INSULIN SYRINGE-NEEDLE U-100) TRAMADOL HCL 50 MG ORAL TABLET (TRAMADOL HCL) ; Route: ORAL* ATENOLOL * [facility] Dental Chart: Procedures:Type - CDT Code - Description B - (D2222) No Charge Visit (Performed by Sae Slaughter DDS) Chart Notes:luciana (Nov 05 2019 10:41AM): Pt presents for final maxillary and mandibular impressions with custom tray. IMpressions taken with EnCoate medium body PVS. Sent to [facility] for wax-rim.Nv: Jaw relationshipSae Slaughter DDS by luciana (11/05/2019 10:40 AM): Tooth Notes and Watches: Assessment & Plan Medications:BD INSULIN SYR ULTRAFINE II 31G X 5/16" 0.3 MLTRAMADOL HCL 50 MG ORAL TABLETATENOLOLGLUCAPHAGE Name Value Range Interpretation Code Description Data Hazel rce(s) Supporting Document(s) ID Date Data Source [id number] 10/31/2019 09:26:48 AM [facility] Current Medications: BD INSULIN SYR ULTR AFINE II 31G X 5/16" 0.3 ML (INSULIN SYRINGE-NEEDLE U-100) TRAMADOL HCL 50 MG ORAL TABLET (TRAMADOL HCL) ; Route: ORAL* ATENOLOL * [facility] Dental Chart: Procedures:Type - CDT Code - Description B - (D2222) No Charge Visit (Performed by Sae Slaughter DDS) Chart Notes:luciana (Oct 31 2019 10:12AM): Pt presents for repair on existing maxillary broken denture, pt is missing a piece of the denture. Informed pt we could take an impression and send it to the lab however the denture may come back and never fit properly. Pt wanted to move forward with taking intial impressions for new maxillary and mandibular denture. Custom tray will be fabricated in office.NV: final impressionSukhjinder [place], Sae by luciana (10/31/2019 10:12 AM): Tooth Notes and Watches: Assessment & Plan Medications:BD INSULIN SYR ULTRAFINE II 31G X 5/16" 0.3 MLTRAMADOL HCL 50 MG ORAL TABLETATENOLOLGLUCAPHAGE Name Value Range Interpretation Code Description Data Hazel rce(s) Supporting Document(s) ID Date Data Source [id number] 10/25/2019 04:34:00 PM EST [facility] ([facility]) Name Value Range Interpretation Code Description Data Hazel rce(s) Supporting Document(s) Laboratory test finding (navigational concept) <pending> [facility] ([facility]) ID Date Data Source [id number] 10/24/2019 12:43:00 PM EST [facility] ([facility]) Name Value Range Interpretation Code Description Data Hazel rce(s) Supporting Document(s) Platelets [#/volume] in Blood by Automated count 328 10 150-450 [facility] ([facility]) ID Date Data Source [id number] 10/24/2019 12:43:00 PM EST [facility] ([facility]) Name Value Range Interpretation Code Description Data Hazel rce(s) Supporting Document(s) Inr 0.96 [facility] ([facility]) THERAPUTIC HUMAN INR VALUES INDICATIONS NORMAL RANGES PROPHYLAXIS/TREATMENT OF: VENOUS THROMBOSIS 2.0-3.0 PULMONARY EMBOLISM 2.0-3.0 PREVENTION OF SYSTEMIC EMBOLISM FROM: TISSUE HEART VALVES 2.0-3.0 ACUTE MYOCARDIAL INFARCTION 2.0-3.0 VALVULAR HEART DISEASE 2.0-3.0 ATRIAL FIBRILLATION 2.0-3.0 MECHANICAL VALVES(HIGH RISK) 2.5-3.5 RECURRENT MYOCARDIAL INFARCTION 2.5-3.5 Prothrombin Time 12.5 s 11.8-14.0 [facility] ([facility]) Partial Thromboplastin Time 24.9 s 25.0-38.4 [facility] ([facility]) ID Date Data Source TESTOSTERONE FREE & TOTAL 10/24/2019 12:00:00 AM EST eCW1 ([facility]) Name Value Range Interpretation Code Description Data Hazel rce(s) Supporting Document(s) 6.1 7.2-24.0 TESTOSTERONE FREE (DIRECT ) eCW1 ([facility]) 981.0 [phone] TESTOSTERONE TOTAL FOR T& D eCW1 ([facility]) ID Date Data Source PROLACTIN 10/24/2019 12:00:00 AM EST [facility]CW1 ([facility]) Name Value Range Interpretation Code Description Data Hazel rce(s) Supporting Document(s) 7.2 2.1-17.7 PROLACTIN eCW1 ([facility]) ID Date Data Source FREE T4 & TSH PANEL 10/24/2019 12:00:00 AM EST eCW1 ([facility]) Name Value Range Interpretation Code Description Data Hazel rce(s) Supporting Document(s) 0.99 0.76-1.46 FREE T4 eCW1 ([facility]) 1.260 0.358-3.740 THYROID STIMULATING HORM ONE eCW1 ([facility]) ID Date Data Source FSH & LH EVAL 10/24/2019 12:00:00 AM EST eCW1 ([facility]) Name Value Range Interpretation Code Description Data Hazel rce(s) Supporting Document(s) 8.2 1.4-18.1 FOLLICLE STIMULATING HORM ONE eCW1 ([facility]) 14.3 1.5-9.3 LUTEINIZING HORMONE eCW1 ([facility]) ID Date Data Source [id number] 10/11/2019 02:13:16 PM [facility] Current Medications: BD INSULIN SYR ULTR AFINE II 31G X 16" 0.3 ML (INSULIN SYRINGE-NEEDLE U-100) TRAMADOL HCL 50 MG ORAL TABLET (TRAMADOL HCL) ; Route: ORAL* ATENOLOL * [facility] Dental Chart: Procedures:Type - CDT Code - Description B - (D0330) Panoramic film (Performed by Sae Slaughter DDS) B - (D9310) Consultation, diagnostic service provided by dentist or physician other than requesting dentist or physician (Performed by Sae Slaughter DDS) Treatments:Type - CDT Code - Description T - (D5110) Complete denture - maxillary on Tooth # 1,2,3,4,5,6,7,8,9,10,11,12,13,14,15,16 (Performed by Sae Slaughter DDS) T - (D5120) Complete denture - mandibular on Tooth # 17,18,19,20,21,22,23,24,25,26,27,28,29,30,31,32 (Performed by Sae Slaughter DDS) Existing:Type - CDT Code - Description[E] Missing - [place] and Root On #1 Surface O Region XR, #10 Surface I Region XR, #11 Surface I Region XR, #12 Surface O Region XR, #13 Surface O Region XR, #14 Surface O Region XR, #15 Surface O Region XR, #16 Surface O Region XR, #17 Surface O Region XR, #18 Surface O Region XR, #19 Surface O Region XR, #2 Surface O Region XR, #20 Surface O Region XR, #21 Surface O Region XR, #22 Surface I Region XR, #23 Surface I Region XR, #24 Surface I Region XR, #25 Surface I Region XR, #26 Surface I Region XR, #27 Surface I Region XR, #28 Surface O Region XR, #29 Surface O Region XR, #3 Surface O Region XR, #30 Surface O Region XR, #31 Surface O Region XR, #32 Surface O Region XR, #4 Surface O Region XR, #5 Surface O Region XR, #6 Surface I Region XR, #7 Surface I Region XR, #8 Surface I Region XR, #9 Surface I Region XR Chart Notes:luciana (Oct 11 2019 2:52PM): Pt presents for consult about maxillary and mandibular dentures. Explained to pt that since Maxillary dentures are less than 5 years old, insurance will not cover it. Pano taken, gave pt sliding fee paperwork.Also due to loss of mandibular ridge pt. has been informed that the lower denture will have poor to no retention. Pt. understoodASNV: Initial ImpressionsSae Slaughter DDS by luciana (10/11/2019 2:51 PM): Tooth Notes and Watches: Assessment & Plan Medications:BD INSULIN SYR ULTRAFINE II 31G X 5/16" 0.3 MLTRAMADOL HCL 50 MG ORAL TABLETATENOLOLGLUCAPHAGEMedication Changes:Added: TRAMADOL HCL 50 MG ORAL TABLETBD INSULIN SYR ULTRAFINE II 31G X 5/16" 0.3 ML Name Value Range Interpretation Code Description Data Hazel rce(s) Supporting Document(s) ID Date Data Source [id number] 10/03/2019 10:38:24 AM [facility] Vital SignsBlood Pressure: 154/92 Patient History Medical History:Aivsq-Bpxunbawh-Vyils SyndromeHBPArthritisDiabetesMental Health problemFamily History:Diabetes (Mother)Heart disease (Mother, Fa ther)Hypertension (Mother)Social/Personal History: Smoking Status: current every day smokerCurrent Medications: * ATENOLOL * GLUCAPHAGE Past Medical History:Oetmt-Mykhbsjwq-Vfaym SyndromeHBPArthritisDiabetesMental Health problem Dental Chart: Procedures:Type - CDT Code - Description C - (D2222) No Charge Visit (Performed by Kelli Loera) Chart Notes:jadyn (Oct 03 2019 11:05AM): Patient presented for [employer]CTION[employer]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 Patient said that he had broken his upper complete denture. Patient was not informed by the lead front desk agent that we do not fabricate dentures at [facility]. Talked to Laurence, and Laurence decided to have patient have aa consult with Dr. Slaughter at [facility]. Patient was willing to travel. Patient had his complete denture done at [facility], but they are not taking his insurance, and had dismissed the patient because he could not make to the appt because of medicaid cab. Dismissed patient without any questions. Advised patient to bring his list of meds for consult visit . Patient was very cooperativeNV-Consult with Dr. Slaughter for max and Kelli Graham by jadyn (10/03/2019 11:02 AM): Tooth Notes and Watches: Note: There are Un-Billed (C Type) procedures on this document.Medication Changes:Added: * GLUCAPHAGE* ATENOLOL Name Value Range Interpretation Code Description Data Hazel rce(s) Supporting Document(s) ID Date Data Source LIPID PANEL (CARDIAC RISK) 09/23/2019 12:00:00 AM EST eCW1 ( [facility]) Name Value Range Interpretation Code Description Data Hazel rce(s) Supporting Document(s) Triglyceride [Mass/volume] in Serum or Plasma by calculation 198 <150 TRIGLYCERIDES LEVEL eCW1 ([facility]) Cholesterol [Moles/volume] in Serum or Plasma 142 <200 CHOLESTEROL LEVEL eCW1 ([facility]) 108 NON-HDL-C eCW1 ([facility]) Cholesterol in LDL [Mass/volume] in Serum or Plasma by calculation 68 <100 LDL CHOLESTEROL eCW1 ([facility]) Cholesterol in HDL [Moles/volume] in Serum or Plasma 34 >40 HDL CHOLESTEROL eCW1 ([facility]) 4.176 <5 CHOLESTEROL RISK RATIO eCW1 ([facility]) Procedure Social History Code Duration Value Status Description Data Source(s ) Smoking 10/05/2020 12:00:00 AM EST Current Smoker completed Curre nt Smoker eCW1 ([facility]) Smoking 10/05/2020 12:00:00 AM EST Current Smoker completed Curre nt Smoker eCW1 ([facility]) Smoking 10/05/2020 12:00:00 AM EST Current Smoker completed Curre nt Smoker eCW1 ([facility]) Smoking 09/07/2020 12:00:00 AM EST Current Smoker completed Curre nt Smoker eCW1 ([facility]) Smoking 09/07/2020 12:00:00 AM EST Current Smoker completed Curre nt Smoker eCW1 ([facility]) Smoking 09/07/2020 12:00:00 AM EST Current Smoker completed Curre nt Smoker eCW1 ([facility]) Alcohol intake 03/20/2020 12:00:00 AM EDT Current drinker of al cohol (finding) completed Current drinker of alcohol (finding) [facility] Tobacco use and exposure 03/20/2020 12:00:00 AM EDT Current user co mpleted Current user [facility] Cigarette pack-years 03/20/2020 12:00:00 AM EDT UNK completed [facility] Cigarettes smoked current (pack per day) - Reported 03/20/20 20 12:00:00 AM EDT UNK completed [facility] Smoking 03/20/2020 12:00:00 AM EDT Current every day smoker co mpleted Current every day smoker [facility] Cigarette pack-years 03/20/2020 12:00:00 AM EDT UNK [facility] Cigarettes smoked current (pack per day) - Reported 03/20/20 20 12:00:00 AM EDT UNK completed [facility] Smoking 03/20/2020 12:00:00 AM EDT Current every day smoker co mpleted Current every day smoker [facility] Smoking 12/09/2019 12:00:00 AM EDT Current Smoker completed Curre nt Smoker eCW1 ([facility]) Smoking 12/09/2019 12:00:00 AM EDT Current Smoker completed Curre nt Smoker eCW1 ([facility]) Smoking 12/09/2019 12:00:00 AM EDT Current Smoker completed Curre nt Smoker eCW1 ([facility]) Smoking 12/09/2019 12:00:00 AM EDT Current Smoker completed Curre nt Smoker eCW1 ([facility]) Smoking 12/09/2019 12:00:00 AM EDT Current Smoker completed Curre nt Smoker eCW1 ([facility]) Smoking 12/09/2019 12:00:00 AM EDT Current Smoker completed Curre nt Smoker eCW1 ([facility]) Vital Signs ID Date Data Source UNK Name Value Range Interpretation Code Description Data Source(s) Diastolic blood pressure 90 mm[Hg] 90 mm[Hg] eCW1 ([facility]) Systolic blood pressure 160 mm[Hg] 160 mm[Hg] e CW1 ([facility]) Body temperature 99.9 [degF] 99.9 [degF] eCW1 ( [facility]) Respiratory rate 18 /min 18 /min eCW1 ([facility]) Heart rate 111 /min 111 /min eCW1 ([facility]) Body mass index (BMI) [Ratio] 25.04 kg/m2 25.04 kg/m2 eCW1 ([facility]) Body height 69 [in_i] 69 [in_i] eCW1 ([facility]) Body weight 169.6 [lb_av] 169.6 [lb_av] eCW1 ([facility]) Diastolic blood pressure 90 mm[Hg] 90 mm[Hg] eCW1 ([facility]) Systolic blood pressure 144 mm[Hg] 144 mm[Hg] e CW1 ([facility]) Body temperature 97.2 [degF] 97.2 [degF] eCW1 ( [facility]) Respiratory rate 20 /min 20 /min eCW1 ([facility]) Heart rate 73 /min 73 /min eCW1 ([facility]) Body mass index (BMI) [Ratio] 26.14 kg/m2 26.14 kg/m2 eCW1 ([facility]) Body height 69 [in_i] 69 [in_i] eCW1 ([facility]) Body weight 177 [lb_av] 177 [lb_av] eCW1 ([facility]) Diastolic blood pressure 80 mm[Hg] 80 mm[Hg] eCW1 ([facility]) Systolic blood pressure 144 mm[Hg] 144 mm[Hg] e CW1 ([facility]) Body temperature 96.1 [degF] 96.1 [degF] eCW1 ( [facility]) Respiratory rate 18 /min 18 /min eCW1 ([facility]) Heart rate 68 /min 68 /min eCW1 ([facility]) Body mass index (BMI) [Ratio] 26.31 kg/m2 26.31 kg/m2 eCW1 ([facility]) Body height 69 [in_us] 69 [in_us] eCW1 ([facility]) Body weight Measured 178.2 [lb_av] 178.2 [lb_av ] eCW1 ([facility]) Diastolic blood pressure 80 mm[Hg] 80 mm[Hg] eCW1 ([facility]) Systolic blood pressure 150 mm[Hg] 150 mm[Hg] e CW1 ([facility]) Body temperature 97.3 [degF] 97.3 [degF] eCW1 ( [facility]) Respiratory rate 20 /min 20 /min eCW1 ([facility]) Heart rate 68 /min 68 /min eCW1 ([facility]) Body mass index (BMI) [Ratio] 27.02 kg/m2 27.02 kg/m2 W1 ([facility]) Body height 69 [in_us] 69 [in_us] eCW1 ([facility]) Body weight Measured 183 [lb_av] 183 [lb_av] eC W1 ([facility]) Body weight 81.194 kg 81.194 kg MEDENT ([facility], ) Body mass index (BMI) [Ratio] 26.4 kg/m2 26.4 k g/m2 MEDENT ([facility], ) Body weight 179.00 [lb_av] 179.00 [lb_av] MEDEN T ([facility], ) Body height 69 [in_i] 69 [in_i] MEDENT ([facility], ) 5'9" Diastolic blood pressure 95 mm[Hg] 95 mm[Hg] MEDENT ([facility], ) Systolic blood pressure 152 mm[Hg] 152 mm[Hg] M EDENT ([facility], ) Diastolic blood pressure 88 mm[Hg] 88 mm[Hg] eCW1 ([facility]) Systolic blood pressure 150 mm[Hg] 150 mm[Hg] e CW1 ([facility]) Body temperature 97.6 [degF] 97.6 [degF] eCW1 ( [facility]) Respiratory rate 17 /min 17 /min eCW1 ([facility]) Heart rate 76 /min 76 /min eCW1 ([facility]) Body mass index (BMI) [Ratio] 25.78 kg/m2 25.78 kg/m2 eCW1 ([facility]) Body height 69 [in_us] 69 [in_us] eCW1 ([facility]) Body weight Measured 174.6 [lb_av] 174.6 [lb_av ] eCW1 ([facility]) Diastolic blood pressure 86 mm[Hg] 86 mm[Hg] eCW1 ([facility]) Systolic blood pressure 136 mm[Hg] 136 mm[Hg] e CW1 ([facility]) Body temperature 97.8 [degF] 97.8 [degF] eCW1 ( [facility]) Respiratory rate 18 /min 18 /min eCW1 ([facility]) Heart rate 74 /min 74 /min eCW1 ([facility]) Body mass index (BMI) [Ratio] 25.69 kg/m2 25.69 kg/m2 eCW1 ([facility]) Body height 69 [in_us] 69 [in_us] eCW1 ([facility]) Body weight Measured 174 [lb_av] 174 [lb_av] eC W1 ([facility]) Diastolic blood pressure 82 mm[Hg] 82 mm[Hg] eCW1 ([facility]) Systolic blood pressure 132 mm[Hg] 132 mm[Hg] e CW1 ([facility]) Body temperature 99.7 [degF] 99.7 [degF] eCW1 ( [facility]) Respiratory rate 20 /min 20 /min eCW1 ([facility]) Heart rate 72 /min 72 /min eCW1 ([facility]) Body mass index (BMI) [Ratio] 26.49 kg/m2 26.49 kg/m2 eCW1 ([facility]) Body height 69 [in_us] 69 [in_us] eCW1 ([facility]) Body weight Measured 179.4 [lb_av] 179.4 [lb_av ] eCW1 ([facility]) ID Date Data Source [id number] 04/05/2020 03:09:27 PM EDT [facility] Name Value Range Interpretation Code Description Data Source(s) WEIGHT RECORDED 171.2 lb 171.2 lb [facility] ID Date Data Source [id number] 10/04/2019 10:01:00 AM EST [facility] Name Value Range Interpretation Code Description Data Source(s) Weight Measurement Method 1 1 [facility] Weight (Calculated Kilograms) 85.05 85.05 [facility] Weight 2928.0 2928.0 [facility] Temperature Source 7 7 [facility] Temperature 98.3 98.3 [facility] Respiratory Effort 1 1 [facility] Respiratory Rate [address] [facility] Pulse Assessment Method 4 4 [facility] Pulse Rate 63 63 [facility] Height (Calculated Centimeters) 175.26 175. 26 [facility] Height 69 69 [facility] Blood Pressure 170/92 170/92 [facility] Body Mass Index (BMI) 27.6 27.6 [facility] Weight Measurement Method 1 1 [facility] Weight (Calculated Kilograms) 85.05 85.05 [facility] Weight 2928.0 2928.0 [facility] Temperature Source 7 7 [facility] Temperature 98.3 98.3 [facility] Respiratory Effort 1 1 [facility] Respiratory Rate [address] [facility] Pulse Assessment Method 4 4 [facility] Pulse Rate 63 63 [facility] Height (Calculated Centimeters) 175.26 175. 26 [facility] Height 69 69 [facility] Blood Pressure 170/92 170/92 [facility] Body Mass Index (BMI) 27.6 27.6 [facility] Weight Measurement Method 1 1 [facility] Weight (Calculated Kilograms) 85.05 85.05 [facility] Weight 3000.0 3000.0 [facility] Temperature Source 7 7 [facility] Temperature 97.9 97.9 [facility] Respiratory Effort 1 1 [facility] Respiratory Rate [address] [facility] Pulse Assessment Method 4 4 [facility] Pulse Rate 62 62 [facility] Height (Calculated Centimeters) 175.26 175. 26 [facility] Height 69 69 [facility] Blood Pressure 144/87 144/87 [facility] Body Mass Index (BMI) 27.6 27.6 [facility] Weight Measurement Method 1 1 [facility] Weight (Calculated Kilograms) 85.05 85.05 [facility] Weight 3000.0 3000.0 [facility] Temperature Source 7 7 [facility] Temperature 98.4 98.4 [facility] Respiratory Effort 1 1 [facility] Respiratory Rate [address] [facility] Pulse Assessment Method 4 4 [facility] Pulse Rate 76 76 [facility] Height (Calculated Centimeters) 175.26 175. 26 [facility] Height 69 69 [facility] Blood Pressure 130/77 130/77 [facility] Body Mass Index (BMI) 27.6 27.6 [facility] Weight (Calculated Kilograms) 83.01 83.01 [facility] Height (Calculated Centimeters) 175.26 175. 26 [facility] Body Mass Index (BMI) 27.0 27.0 [facility] Patient Treatment Plan of Care Planned Activity Planned Date Details Description Data Source (s) 3 ML Insulin Glargine 100 UNT/ML Pen Injector [Lantus] 10/06/2020 12:00:00 AM EST eCW1 ([facility]) 3 ML Insulin Glargine 100 UNT/ML Pen Injector [Lantus] 10/06/2020 12:00:00 AM EST eCW1 ([facility]) 3 ML Insulin Glargine 100 UNT/ML Pen Injector [Lantus] 10/06/2020 12:00:00 AM EST eCW1 ([facility]) Tamsulosin hydrochloride 0.4 MG Oral Capsule 10/05/2020 12:00:00 AM EST eCW1 ([facility]) Sulfamethoxazole 800 MG / Trimethoprim 160 MG Oral Tab let [Bactrim] 10/05/2020 12:00:00 AM EST eCW1 ([facility]) Thiamine HCl 100 MG 10/05/2020 12:00:00 AM EST eCW1 ([facility]) Tamsulosin hydrochloride 0.4 MG Oral Capsule 10/05/2020 12:00:00 AM EST eCW1 ([facility]) Sulfamethoxazole 800 MG / Trimethoprim 160 MG Oral Tab let [Bactrim] 10/05/2020 12:00:00 AM EST eCW1 ([facility]) Thiamine HCl 100 MG 10/05/2020 12:00:00 AM EST eCW1 ([facility]) Sulfamethoxazole 800 MG / Trimethoprim 160 MG Oral Tab let [Bactrim] 10/05/2020 12:00:00 AM EST eCW1 ([facility]) Tamsulosin hydrochloride 0.4 MG Oral Capsule 10/05/2020 12:00:00 AM EST eCW1 ([facility]) Thiamine HCl 100 MG 10/05/2020 12:00:00 AM EST eCW1 ([facility]) ferrous sulfate 325 MG Oral Tablet 09/14/2020 12:00:00 AM EST eCW1 ([facility]) ferrous sulfate 325 MG Oral Tablet 09/14/2020 12:00:00 AM EST eCW1 ([facility]) ferrous sulfate 325 MG Oral Tablet 09/14/2020 12:00:00 AM EST eCW1 ([facility]) ferrous sulfate 325 MG Oral Tablet 09/14/2020 12:00:00 AM EST eCW1 ([facility]) ferrous sulfate 325 MG Oral Tablet 09/14/2020 12:00:00 AM EST eCW1 ([facility]) FreeStyle Lancets - 09/07/2020 12:00:00 AM EST eCW1 ([facility]) FreeStyle Lite - 09/07/2020 12:00:00 AM EST eCW1 ([facility]) Sucralfate 100 MG/ML Oral Suspension 09/07/2020 12:00:00 AM EST eCW1 ([facility]) Blood Glucose Test Strip - 09/07/2020 12:00:00 AM EST eCW1 ([facility]) Omeprazole 40 MG Delayed Release Oral Capsule 09/07/2020 12:00:00 A M EST eCW1 ([facility]) Omeprazole 40 MG Delayed Release Oral Capsule 09/07/2020 12:00:00 A M EST eCW1 ([facility]) Omeprazole 40 MG Delayed Release Oral Capsule 09/07/2020 12:00:00 A M EST eCW1 ([facility]) Sucralfate 100 MG/ML Oral Suspension 09/07/2020 12:00:00 AM EST eCW1 ([facility]) FreeStyle Lite - 09/07/2020 12:00:00 AM EST eCW1 ([facility]) Omeprazole 40 MG Delayed Release Oral Capsule 09/07/2020 12:00:00 A M EST eCW1 ([facility]) FreeStyle Lancets - 09/07/2020 12:00:00 AM EST eCW1 ([facility]) Blood Glucose Test Strip - 09/07/2020 12:00:00 AM EST eCW1 ([facility]) Sucralfate 100 MG/ML Oral Suspension 09/07/2020 12:00:00 AM EST eCW1 ([facility]) FreeStyle Lite - 09/07/2020 12:00:00 AM EST eCW1 ([facility]) Omeprazole 40 MG Delayed Release Oral Capsule 09/07/2020 12:00:00 A M EST eCW1 ([facility]) FreeStyle Lancets - 09/07/2020 12:00:00 AM EST eCW1 ([facility]) Blood Glucose Test Strip - 09/07/2020 12:00:00 AM EST eCW1 ([facility]) Omeprazole 40 MG Delayed Release Oral Capsule 09/07/2020 12:00:00 A M EST eCW1 ([facility]) pantoprazole 40 MG Delayed Release Oral Tablet 05/13/2020 12:00:00 AM [facility] Sucralfate 100 MG/ML Oral Suspension 05/13/2020 12:00:00 AM [facility] atorvastatin 20 MG Oral Tablet 03/28/2020 12:00:00 AM [facility] Amlodipine 10 MG Oral Tablet 03/28/2020 12:00:00 AM [facility] Lisinopril 40 MG Oral Tablet 03/28/2020 12:00:00 AM [facility] Tab-A-Martin/Beta Carotene Oral Tablet 03/28/2020 12:00:00 AM [facility] 24 HR Nicotine 0.875 MG/HR Transdermal Patch 03/28/2020 12:00:00 AM [facility] Thiamine 100 MG Oral Tablet 03/28/2020 12:00:00 AM [facility] Folic Acid 1 MG Oral Tablet 03/28/2020 12:00:00 AM [facility] Hydralazine Hydrochloride 20 MG/ML Injectable Solution 03/27/2020 09:00:00 AM [facility] carvedilol 25 MG Oral Tablet 03/27/2020 12:00:00 AM [facility] pantoprazole 40 MG Delayed Release Oral Tablet 03/27/2020 12:00:00 AM [facility] Naloxone HCl 4 MG/0.1ML Nasal Liquid (Narcan) 03/27/2020 12:00:00 A M [facility] Sucralfate 1000 MG Oral Tablet 03/27/2020 12:00:00 AM [facility] dextrose 50 % IV solution 25 mL 03/22/2020 03:36:45 PM [facility] Glucagon 1 MG Injection 03/22/2020 03:36:45 PM [facility] Glucose 0.417 MG/MG Oral Gel 03/22/2020 03:36:45 PM [facility] Tamsulosin hydrochloride 0.4 MG Oral Capsule [Flomax] 11/14/2019 12:00:00 AM EST eCW1 ([facility]) sildenafil 25 MG Oral Tablet [Viagra] 11/13/2019 12:00:00 AM EST eCW1 ([facility]) sildenafil 25 MG Oral Tablet [Viagra] 11/13/2019 12:00:00 AM EST eCW1 ([facility]) Amlodipine 5 MG Oral Tablet 10/24/2019 12:00:00 AM EST eCW1 ([facility]) Cephalexin 250 MG Oral Capsule [Keflex] 10/24/2019 12:00:00 AM EST eCW1 ([facility]) Fluoxetine 60 MG Oral Tablet 09/20/2019 12:00:00 AM EST eCW1 ([facility]) One touch ultra blue _ 09/20/2019 12:00:00 AM EST eCW1 ([facility]) May Have - 09/20/2019 12:00:00 AM EST e CW1 ([facility]) Nicotine 2 MG Oral Lozenge 09/20/2019 12:00:00 AM EST eCW1 ([facility]) BD Pen Needle Mini U/F 31G X 5 MM 08/23/2019 12:00:00 AM EST eCW1 ([facility]) 3 ML Insulin Glargine 100 UNT/ML Pen Injector [Lantus] 08/23/2019 12:00:00 AM EST eCW1 ([facility]) Ibuprofen 600 MG Oral Tablet 12/09/2015 12:00:00 AM EDT [facility] Mirtazapine 15 MG Oral Tablet 11/19/2015 12:00:00 AM [facility] terbinafine 250 MG Oral Tablet 11/18/2015 12:00:00 AM [facility] atorvastatin 20 MG Oral Tablet 10/06/2015 12:00:00 AM [facility] tramadol hydrochloride 50 MG Oral Tablet [facility] Esomeprazole 40 MG Delayed Release Oral Capsule [facility] Atenolol 50 MG Oral Tablet [facility] Lisinopril 20 MG Oral Tablet [facility] Metformin hydrochloride 1000 MG Oral Tablet [facility] carvedilol 25 MG Oral Tablet [facility] Omeprazole 20 MG Delayed Release Oral Capsule [facility]
--- NOTE | 2020-10-21 16:52 | REP ---
INDICATION: fever, LLQ pain. COMPARISON: Comparison CT study 24 September 2020.. TECHNIQUE: Helical scanning is acquired following the intravenous injection of 100 mL of Isovue 370. FINDINGS: Digital preliminary nuclear weapons specialist views demonstrate mild gaseous distention of small and large bowel loops in the central abdomen. Orthopedic fixation device is seen along the right pelvis. Clips are noted in the upper abdomen. On axial CT images, the lung bases are clear. This small bilateral pleural effusions noted previously have resolved. There is however a tiny amount of pericolic gutter fluid in the abdomen. There is an anasarca type picture with the extensive subcutaneous fat edema in the extra abdominal soft tissues. This is similar to the prior study. There is no evidence of free intraperitoneal air. There are scattered surgical sutures in the upper abdomen, epigastric region, and pelvis. The patient is status post gastric bypass and hernia repair. Normal adrenal glands are seen. No focal hepatic or splenic lesion is seen. The kidneys enhance symmetrically and are morphologically intact. There is a vena cava filter in place. Normal caliber aorta. Urinary bladder is unremarkable. There is vas deferens calcification which may correlate with diabetes. Prostate and seminal vesicles are unremarkable. There is mild mural thickening in the sigmoid and descending segments of the colon which may reflect mild enterocolitis. No evidence of obstruction is seen. There are few scattered air-filled small and large bowel loops. The left colon is redundant. IMPRESSION: Anasarca picture with diffuse extra abdominal soft tissue edema. Sliver of ascites in the pericolic gutters. Pancreatic calcifications as previously noted. Postoperative changes. Mild mural thickening in the sigmoid and descending segments of the colon question enterocolitis. No evidence of obstruction. <Electronically signed by Ziggy Langley > 10/21/20 [id number]
[2020-10-21] MEDS ORDERED: metroNIDAZOLE (FLAGYL) 500MG TABLET PO ONE (17:45)
[2020-10-21] MEDS ORDERED: HumuLIN R (REGULAR) INSULIN (NovoLIN R) **100U/ML** PER UNIT IV ONE (17:45)
[2020-10-21] MEDS ORDERED: CIPR-249 PO (17:51)
[2020-10-21] MEDS ORDERED: FLAG500T PO (17:52)
[2020-10-21] MEDS ORDERED: CIPROFLOXACIN 500MG TABLET PO ONE (18:00)
[2020-10-21 18:01] VITALS: BP 148/74
--- NOTE | 2020-10-21 19:48 | ECGEPIP ---
[facility] - ED Test Date: 2020-10-21 Pat Name: GWEN JOLLEY Department: Room: - Gender: Male [employer]: : 1965 Requested By: ANTONIO Queen Order Number: [id number] Reading MD: Tashi Smith Measurements Intervals Remer Rate: 89 P: 47 TN: 130 QRS: 20 QRSD: 88 T: 35 QT: 426 QTc: 518 Interpretive Statements Normal sinus rhythm ANTEROSEPTAL INFARCT, AGE INDETERMINATE Prolonged QT SIMILAR TO 09/19/20 Electronically Signed on 10-21-2020 19:48:35 EST by Tashi Smith
--- NOTE | 2020-10-22 18:46 | ED PDOC ---
Post-Departure Follow-Up ct abd/p faxed to zander joyner for fu Marialuisa Martin MD Oct 22, 2020 18:46
== END 2020-10-21 19:31 | disposition home or self-care (01) ==
LOC: EDSEX 12:10 → EDBD 12:10 → M ED 12:10
DX: R53.1 Weakness (principal); K52.9 Noninfective gastroenteritis and colitis, unspecified; E11.65 Type 2 diabetes mellitus with hyperglycemia; E11.69 Type 2 diabetes mellitus with other specified complication; I10 Essential (primary) hypertension; K21.9 Gastro-esophageal reflux disease without esophagitis; G89.29 Other chronic pain; K57.32 Diverticulitis of large intestine without perforation or abscess without bleeding; F10.10 Alcohol abuse, uncomplicated; K50.90 Crohn's disease, unspecified, without complications; Z98.84 Bariatric surgery status; F17.200 Nicotine dependence, unspecified, uncomplicated; K86.9 Disease of pancreas, unspecified; Z79.4 Long term (current) use of insulin; Z79.899 Other long term (current) drug therapy
CPT/HCPCS: 36415; 71045; 74177; 80048; 80076; 81001; 82550; 82553; 83690; 84443; 84484; 85025; 87040; 87077; 87186; 87631; 93005; 93041; 94760; 96360; 99285; Q9963; Q9967

== ENCOUNTER 2020-10-24 18:53 | Inpatient (IN) | payer OTHER ==
[~2020-10-24] VITALS: Ht 175.3 cm; Wt 85.4 kg
[~2020-10-24 18:53] MED LIST changes: +CIPR-249 PO; +FLAG500T PO; +LANTINJ4 SC
--- OUTSIDE RECORDS SUMMARY | 2020-10-24 18:59 | CCD ---
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 Active 41049320 Problem Hyperlipidemia, unspecified E78.5 Active 5582 2004 Problem Chronic pain syndrome G89.4 Active 018298543 Problem Primary osteoarthritis of first carpometacarpal joint of left hand M18.12 Active 42709607 Problem Vitamin D deficiency, unspecified E55.9 Active 29542398 Problem Type 2 diabetes mellitus wit h hyperglycemia, without long-term current use of insulin E11.65 Active 60205070 Problem Major depressive disorder wi th single episode, remission status unspecified F32.9 Active 76613500 Problem Diabetes mellitus with hyperglycemia E11.65 Act jack [id number] Problem Neck pain, chronic M54.2 Active 5016769502521 Problem Benign prostatic hyperplasia with lower urinary tract symptoms N40.1 Active 6615345674114 Problem Iron deficiency anemia, unspecified D50.9 Acti ve 94565810 Problem Male erectile dysfunction, unspecified N52.9 A ctive 079503011 Problem Chronic low back pain M54.5 Active 634634860 Problem Crohn''s disease with other complication, unspecified gastrointestinal tract location K50.918 Active 70558909 Problem Alcoholic cirrhosis of liver without ascites K70.3 0 Active 830488471 Problem Restless legs G25.81 Active 95336375 Problem Alcohol dependence, uncomplicated F10.20 Active 63374599 Problem Alcoholic liver disease K70.9 Active 03729672 Problem Nicotine dependence, unspecified, uncomplicated F1 7.200 Active 483211537 Problem Colon cancer screening Z12.11 Active 572868406 Problem Essential (primary) hypertension I10 Active 32589548 Problem Neuropathy G62.9 Active 395516555 Problem Hypomagnesemia E83.42 Active 997315486 Problem Hypertension I10 Active 39539794 Problem Gastro-esophageal reflux disease without esophagitis K21.9 Active 010722932 Problem Erectile dysfunction, unspecified erectile dysfunction typ e N52.9 Active 050005321 Problem Crohn's disease, unspecified, without complications K50.90 Active 58620013 Problem Hypogonadism in male E29.1 Active 42945391 Problem Iron deficiency anemia due to chronic blood loss D 50.0 Active 264638741 Problem Surgical operation with anas tomosis, bypass or graft as the cause of abnormal reaction of the patient, or of later complication, without mention of misadventure at the time of the procedure Y83.2 Activ e 01361355 Problem Alcohol-induced chronic pancreatitis K86.0 Act jack 239305176 Problem Unsteady gait R26.81 Active 69538670 Problem 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 Active 0976728 Problem Type 2 diabetes mellitus with other diabetic kid kenna complication E11.29 Active 772217879 Problem Chronic hepatitis C without hepatic coma B18.2 Active 664142883 Problem Fatty liver due to alcoholism K70.0 Active 50 417980 Problem Crohn's disease with complic ation, unspecified gastrointestinal tract location K50.919 Active 90058102 Problem Benign prostatic hyperplasia without lower urina ry tract symptoms N40.0 Active 347906158 Problem Fatty liver K76.0 Active 969826225 ALLERGIES No Known Allergies ENCOUNTERS from 1966 to 2020-10-09 Encounter Location Date Provider Diagnosis [address] [address] Sep, Salud Sparks 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 IMMUNIZATIONS Vaccine Route Administration Date Status Influenza [...] Education Language: Question Answer Notes Languages spoken: Spanish Judaism: Question Answer Notes Judaism 03 Judaism Sexual Hx: Question Answer Notes Had sex [...] capsule Orally bid for 30 day(s) 2 Sep, Active Naltrexone HCl 50 MG 1 tablet [...] Orally daily Active PROCEDURES No Information RESULTS Component Value Reference Range Comprehensive Metabolic Profile (CMP) Reviewed date:10/08/2020 17:14:11 Interpretation: Performing Lab:[facility], [facility] [id number] , ,[facility]01 GLUCOSE, FASTING 531 70-100 BLOOD UREA NITROGEN 10 7-18 CREATININE FOR GFR 1.20 0.70-1.30 GLOMERULAR FILTRATION RATE > 60.0 >56 SODIUM LEVEL 134 136-145 POTASSIUM SERUM 3.8 3.5-5.1 CHLORIDE LEVEL 100 98-107 CARBON DIOXIDE LEVEL 31 21-32 CALCIUM LEVEL 7.8 8.5-10.1 AST/SGOT 16 7-37 ALT/SGPT 24 12-78 ALKALINE PHOSPHATASE 165 45-117 BILIRUBIN,TOTAL 0.3 0.2-1.0 TOTAL PROTEIN 4.7 6.4-8.2 ALBUMIN 1.8 3.2-5.2 ALBUMIN/GLOBULIN RATIO 0.6 ETHYL ALCOHOL (ETHANOL) Reviewed date:10/08/2020 17:13:46 Interpretation: Performing Lab:[facility], [facility] [address] [address] , ,[place] [address] ETHYL ALCOHOL (ETHANOL) < 0.003 0.000-0.010 ACETONE/KETONE Reviewed date:10/08/2020 17:14:35 Interpretation: Performing Lab:[facility] [address] [address] , ,[facility]01 ACETONE/KETONE 1.04 <2.81 REASON FOR VISIT gluc 557 MEDICAL (GENERAL) HISTORY Type Description Date Medical History hypertension Medical History diabetes mellitis type 2, with PN on exa m 09/26 Medical History chronic neck pain, sees [facility]/Dr Srinivsaan; P ain Solution/Bolla Medical History chronic back [...] No Information FUNCTIONAL STATUS No Information ASSESSMENTS Encounter Date Diagnosis Assessment Notes Treatment Notes Treatm ent Clinical Notes Sep, 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 (ICD-10 - E13. 10) PLAN OF TREATMENT Medication Medication Name Sig [...] Sep, Next Appt Details Provider Name:Salud Sparks, 2020-11-05 01:30:00 PM, [address] [place], [address], Insurance Providers Payer Name Payer Address Payer Phone Insured Name Patient Relati onship to Insured Coverage Start Date Coverage End Date [facility] [address] [facility] [id number] GWEN JOLLEY [facility] [address] [address] [facility] [address] GWEN TAVERAS self
--- OUTSIDE RECORDS SUMMARY | 2020-10-24 18:59 | CCD ---
Author Author [facility] Organization [facility] Address Unknown Phone Unavailable Care Team Providers Care Continuous Process Coffee Roaster Name Role Phone Salud Sparks Unavailable PROBLEMS Type Condition ICD9-CM Code VPB01-GP Code Onset Dates Condition S tatus SNOMED Code Notes Problem Crohn's disease, unspecified, without complications K50.90 Active 09808998 Problem Iron deficiency anemia, unspecified D50.9 Acti ve 52350420 Problem Gastro-esophageal reflux disease without esophagitis K21.9 Active 879826561 Problem Chronic low back pain M54.5 Active 939328559 Problem Neck pain, chronic M54.2 Active 2550528048915 Problem 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 Active 62934299 Problem Male erectile dysfunction, unspecified N52.9 A ctive 480506559 Problem Restless legs G25.81 Active 02040900 Problem Alcohol dependence, uncomplicated F10.20 Active 41114370 Problem Alcoholic liver disease K70.9 Active 55829624 Problem Nicotine dependence, unspecified, uncomplicated F1 7.200 Active 641797314 Problem Essential (primary) hypertension I10 Active 04053885 Problem Hypomagnesemia E83.42 Active 791846966 Problem Major depressive disorder wi th single episode, remission status unspecified F32.9 Active 36605681 Problem Primary osteoarthritis of first carpometacarpal joint of left hand M18.12 Active 18910409 Problem Type 2 diabetes mellitus with other diabetic kid kenna complication E11.29 Active 558818657 Problem Type 2 diabetes mellitus wit h hyperglycemia, without long-term current use of insulin E11.65 Active 44829545 Problem Chronic hepatitis C without hepatic coma B18.2 Active 293689705 Problem Unsteady gait R26.81 Active 39289429 Problem Crohn''s disease with other complication, unspecified gastrointestinal tract location K50.918 Active 16090372 Problem Alcoholic cirrhosis of liver without ascites K70.3 0 Active 834190008 Problem Neuropathy G62.9 Active 021412615 Problem Colon cancer screening Z12.11 Active 571942042 Problem Hypertension I10 Active 77225491 Problem Iron deficiency anemia due to chronic blood loss D 50.0 Active 791172496 Problem Hyperlipidemia, unspecified E78.5 Active 5582 2004 Problem Surgical operation with anas tomosis, bypass or graft as the cause of abnormal reaction of the patient, or of later complication, without mention of misadventure at the time of the procedure Y83.2 Activ e 22894315 Problem Chronic pain syndrome G89.4 Active 660985060 Problem Vitamin D deficiency, unspecified E55.9 Active 22706259 Problem Erectile dysfunction, unspecified erectile dysfunction typ e N52.9 Active 514433787 Problem Benign prostatic hyperplasia with lower urinary tract symptoms N40.1 Active 2032653531949 Problem Diabetes mellitus with hyperglycemia E11.65 Act jack 751254865980116 Problem Hypogonadism in male E29.1 Active 17090073 ALLERGIES No Known Allergies ENCOUNTERS from 1966 to 2020-09-14 Encounter Location Date Provider Diagnosis [address] [address] Aug, Salud Sparks Lower GI bleed K92.2 ; Alcohol dependenc e, uncomplicated F10.20 ; Iron deficiency anemia due to chronic blood loss D50.0 ; Acute gastric ulcer with hemorrhage K25.0 ; Surgical operation with anastomosis, bypass or graft as the cause of abnormal reaction of the patient, or of later complication, without mention of misadventure at the time of the procedure Y83.2 ; Other postprocedural complications and disorders of digestive system K91.89 and Type 2 diabetes mellitus with hyperglycemia, without long-term current use of insulin E11.65 IMMUNIZATIONS Vaccine Route Administration Date Status Influenza (18 yrs & older) Flublok IM Intramuscular Jun 03 9 Administered Influenza (18 yrs & older) Flublok IM Intramuscular Jun 20, 2018 Administered Pneumococcal Adult 0.5mL (Pneumovax 23) IM Intramuscular May Administered Influenza (6mo & up) Fluzone IM Intramuscular May 12, 2017 Ad ministered Influenza (6mo & up) Fluzone Unknown November 23, 2016 Ot ers Influenza (6mo & up) Fluzone IM [...] Education Language: Question Answer Notes Languages spoken: Samoan Anabaptist: Question Answer Notes Anabaptist 03 Orthodoxy Sexual Hx: Question Answer Notes Had sex [...] fine cut tobacco Smoking Cessation Information Given 09/07/2020 Additional Findings: Tobacco Non-User [facility] one can a day Patient counseled on the dangers of tobacco use and urged to quit: 09/07/2020 How many cigarettes a day do you smoke? 6-10 Are you interested in quitting? Thinking about quitting Counseled the patient on smoking cessation, education provid ed 09/07/2020 REASON FOR REFERRAL No Information VITAL SIGNS Weight 177 lbs Aug, Height 69 in Aug, BMI 26.14 kg/m2 Aug, Heart Rate 73 /min Aug, Respiratory Rate 20 /min Aug, Temperature 97.2 degrees Fahrenheit Aug, Oximetry 97 Aug, Blood pressure systolic 144 mm Hg Aug, Blood pressure diastolic 90 mm Hg Aug, MEDICATIONS Medication SIG (Take, Route, Frequency, Duration) Notes Start Da te End Date Status Ropinirole HCl 0.5 MG 1 tablet 1 to 3 hours before bedtime Orally Once a day for 30 day(s) Active Cyclobenzaprine HCl 10 MG 1 tablet Orally Three times a day as needed for 30 Days Active Gabapentin 600 MG 1 tablet Orally three times a day Active FLUoxetine HCl 60 MG 1 tablet Orally Once a day for 30 day(s) Sep, Active Lidocaine-Prilocaine 2.5-2.5 % 1 application raw area of leg Externally three times daily for 30 days May, Active Carvedilol 25 MG 1 tablet with food Orally Twice a day for 30 day(s) Active Naltrexone HCl 50 MG 1 tablet Oral Daily for 30 Days Active Sildenafil Citrate 25 MG 1 tablet as needed Orally Once a day for 3 0 day(s) Active Blood Glucose Test Strip - as directed In Vitro Aug, Active Lancets - as directed subcutaneously Before breakfast and dinner. E1 1.65 Active Glucometer as directed subcutaneously At breakfast and dinner. DX: E1 1.65 Active Omeprazole 40 MG 1 tablet Orally twice a day Active Viagra 25 MG 1 tablet as needed Orally Once a day Active FreeStyle Lancets - as directed subcutaneously bid for 30 Days Aug, Active Omeprazole 40 MG 1 capsule 30 minutes before morning meal Orally Once a day for 30 day(s) Aug, Active Duloxetine HCl 20 MG TAKE ONE CAPSULE BY MOUTH EVERY DAY Oral Active HydrOXYzine HCl 50 MG 1 tab Orally every 6 hrs as needed for itching or anxiety Active FreeStyle Lite - 1 strip subcutaneously bid for 30 Days Aug, Active One touch ultra blue _ 1 bottle of test solution _ _ Active Sucralfate 1 GM/10ML 10 ml on an empty stomach Or ally four times daily for 30 day(s) Aug, Active Blood Glucose Test Strip - 1 strip Dx: E11.9 Twice a day Active Lisinopril 40 MG 1 tablet Orally daily for 30 Active BD Pen Needle Mini U/F 31G X 5 MM 1 injection subcutan eously before bedtime for 30 Days Active May Have - cane _ _ for 999 days Sep, A ctive MetFORMIN HCl ER 500 MG 4 tablet with evening meal Orally Once a day Active Ferrous Sulfate 325 (65 Fe) MG 2 tablets 30 Every other day for 30 day(s) Sep, Active PROCEDURES No Information RESULTS Component Value Reference Range CBC with Differential Reviewed date:09/08/2020 13:49:10 Interpretation: Performing Lab:[facility], [facility] [address] [facility] [id number] , ,[place] [address] WHITE BLOOD COUNT 4.9 4.0-10.0 RED BLOOD COUNT 3.10 4.30-6.10 HEMOGLOBIN 9.4 13.5-17.5 HEMATOCRIT 29.7 42.0-52.0 MEAN CORPUSCULAR VOLUME 95.8 80.0-96.0 MEAN CORPUSCULAR HEMOGLOBIN 30.3 27.0-33.0 MEAN CORPUSCULAR HGB CONC 31.6 32.0-36.5 RED CELL DISTRIBUTION WIDTH 15.9 11.5-14.5 PLATELET COUNT, AUTOMATED 322 150-450 NEUTROPHILS % 59.9 36.0-66.0 LYMPH % 25.2 24.0-44.0 MONO % 10.0 0.0-5.0 EOS % 3.5 0.0-3.0 BASO % 1.0 0.0-1.0 NEUTROPHILS # 2.9 1.5-8.5 LYMPH # 1.2 1.5-5.0 MONO # 0.5 0.0-0.8 EOS # 0.2 0.0-0.5 BASO # 0.1 0.0-0.2 Comprehensive Metabolic Profile (CMP) Reviewed date:09/08/2020 13:48:51 Interpretation: Performing Lab:[facility] [address] [facility] [address] , ,[place] [address] GLUCOSE, FASTING 216 70-100 BLOOD UREA NITROGEN 15 7-18 CREATININE FOR GFR 1.37 0.70-1.30 GLOMERULAR FILTRATION RATE 57.6 >56 SODIUM LEVEL 138 136-145 POTASSIUM SERUM 4.0 3.5-5.1 CHLORIDE LEVEL 105 98-107 CARBON DIOXIDE LEVEL 29 21-32 CALCIUM LEVEL 8.1 8.5-10.1 AST/SGOT 16 7-37 ALT/SGPT 27 12-78 ALKALINE PHOSPHATASE 164 45-117 BILIRUBIN,TOTAL 0.5 0.2-1.0 TOTAL PROTEIN 5.3 6.4-8.2 ALBUMIN 2.5 3.2-5.2 ALBUMIN/GLOBULIN RATIO 0.9 HEMOGLOBIN A1c Reviewed date:09/08/2020 13:48:04 Interpretation: Performing Lab:[facility] [address] [facility] [address] , ,[place] [address] HEMOGLOBIN A1c 7.4 ESTIMATED AVERAGE GLUCOSE 166 60-110 REASON FOR VISIT GI bleeding [facility] MEDICAL (GENERAL) HISTORY Type Description Date Medical [...] Medical History Dyslipidemia Medical History S/P cholecystectomy Surgical History right knee 1986 Surgical History [...] use 07/2017 Hospitalization History GI bleed 08/2020 Goals Section No Information Health Concerns No Information MEDICAL EQUIPMENT No Information MENTAL STATUS No Information FUNCTIONAL STATUS No Information ASSESSMENTS Encounter Date Diagnosis Assessment Notes Treatment Notes Treatm ent Clinical Notes Aug, Lower GI bleed (ICD-10 - K92.2) Hasn't picked up his rx yet b/c no $, no hematochezia or melena since d/c. stable hgb Will need repeat EGD in 3M, COlonoscopy in 1Y Aug, Alcohol dependence, uncomplicated (ICD-10 - F10. 20) states no etoh Aug, Iron deficiency anemia due to chronic bl ood loss (ICD-10 - D50.0) Uses his supplements Aug, Acute gastric ulcer with hemorrhage (ICD-10 - K2 5.0) ppi, carafate as above under lower gi bleed Aug, Surgical operation with anas tomosis, bypass or graft as the cause of abnormal reaction of the patient, or of later complication, without mention of misadventure at the time of the procedure (ICD-10 - Y83.2) Aug, Other postprocedural complic ations and disorders of digestive system (ICD-10 - K91.89) Aug, Type 2 diabetes mellitus wit h hyperglycemia, without long-term current use of insulin (ICD-10 - E11.65) s/p gastric bypass has been off insulin 2Y, will recheck labs. PLAN OF TREATMENT Medication Medication Name Sig Start Date Stop Date MetFORMIN HCl ER 500 MG 4 tablet with evening meal Orally Once a day Ferrous Sulfate 325 (65 Fe) MG 2 tablets 30 Every other day for 30 day(s) Sep, Sucralfate 1 GM/10ML 10 ml on an empty stomach Or ally four times daily for 30 day(s) Aug, Omeprazole 40 MG 1 capsule 30 minutes before morning meal Orally Once a day for 30 day(s) Aug, FreeStyle Lancets - as directed subcutaneously bid for 30 Days 2 Aug, Blood Glucose Test Strip - as directed In Vitro Aug, FreeStyle Lite - 1 strip subcutaneously bid for 30 Days Aug, Treatment Notes Assessment Notes Clinical Notes Lower GI bleed Hasn't picked up his rx yet b/c no $, no hematochezia or melena since d/c. stable hgbWill need repeat EGD in 3M, COlonoscopy in 1Y Alcohol dependence, uncomplicated states no etoh Iron deficiency anemia due to chronic blood loss Uses his supplements Acute gastric ulcer with hemorrhage ppi, carafate as above under lower gi bleed Type 2 diabetes mellitus with hyperglyce april, without long-term current use of insulin s/p gastric bypass has been off insulin 2Y, will recheck labs. Next Appt Details 4 Weeks c SS, BW today Reason: Provider Name:Salud Sparks, 10-06 01:30:00 PM, [address] [place], [address], Insurance Providers Payer Name Payer Address Payer Phone Insured Name Patient Relati onship to Insured Coverage Start Date Coverage End Date MEDICAID [place] [address] [facility] [id number] GWEN JOLLEY [employer] [address] [address] [facility] [address] GWEN TAVERAS self
--- OUTSIDE RECORDS SUMMARY | 2020-10-24 18:59 | CCD ---
Author Author [facility] Organization [facility] Address Unknown Phone Unavailable Care Team Providers Care Workers Compensation Attorney Name Role Phone Salud Sparks Unavailable PROBLEMS Type Condition ICD9-CM Code YBO76-WO Code Onset Dates Condition S tatus SNOMED Code Notes Problem Crohn's disease, unspecified, without complications K50.90 Active 87163073 Problem Iron deficiency anemia, unspecified D50.9 Acti ve 68271872 Problem Gastro-esophageal reflux disease without esophagitis K21.9 Active 657080377 Problem Chronic low back pain M54.5 Active 382459538 Problem Neck pain, chronic M54.2 Active 5470929420273 Problem 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 Active 04927431 Problem Male erectile dysfunction, unspecified N52.9 A ctive 773099967 Problem Restless legs G25.81 Active 99525893 Problem Alcohol dependence, uncomplicated F10.20 Active 47289573 Problem Alcoholic liver disease K70.9 Active 84500816 Problem Nicotine dependence, unspecified, uncomplicated F1 7.200 Active 821125920 Problem Essential (primary) hypertension I10 Active 90614600 Problem Hypomagnesemia E83.42 Active 639413438 Problem Major depressive disorder wi th single episode, remission status unspecified F32.9 Active 18899034 Problem Primary osteoarthritis of first carpometacarpal joint of left hand M18.12 Active 12361687 Problem Type 2 diabetes mellitus with other diabetic kid kenna complication E11.29 Active 164834729 Problem Type 2 diabetes mellitus wit h hyperglycemia, without long-term current use of insulin E11.65 Active 97314581 Problem Chronic hepatitis C without hepatic coma B18.2 Active 064283782 Problem Unsteady gait R26.81 Active 98090806 Problem Crohn''s disease with other complication, unspecified gastrointestinal tract location K50.918 Active 29497035 Problem Alcoholic cirrhosis of liver without ascites K70.3 0 Active 187227819 Problem Neuropathy G62.9 Active 027253714 Problem Colon cancer screening Z12.11 Active 626122313 Problem Hypertension I10 Active 95670725 Problem Iron deficiency anemia due to chronic blood loss D 50.0 Active 549277736 Problem Hyperlipidemia, unspecified E78.5 Active 5582 2004 Problem Surgical operation with anas tomosis, bypass or graft as the cause of abnormal reaction of the patient, or of later complication, without mention of misadventure at the time of the procedure Y83.2 Activ e 40141024 Problem Chronic pain syndrome G89.4 Active 575807386 Problem Vitamin D deficiency, unspecified E55.9 Active 79364840 Problem Erectile dysfunction, unspecified erectile dysfunction typ e N52.9 Active 260309476 Problem Benign prostatic hyperplasia with lower urinary tract symptoms N40.1 Active 7424064094913 Problem Diabetes mellitus with hyperglycemia E11.65 Act jack 062093452548548 Problem Hypogonadism in male E29.1 Active 29170916 ALLERGIES No Known Allergies ENCOUNTERS from 1965 to 2020-10-03 Encounter Location Date Provider Diagnosis [address] [address] Sep, Salud Sparks IMMUNIZATIONS Vaccine Route Administration Date Status Influenza [...] Education Language: Question Answer Notes Languages spoken: Panamanian Islam: Question Answer Notes Islam 03 Sabianism Sexual Hx: Question Answer Notes Had sex [...] Given 09/07/2020 Additional Findings: Tobacco Non-User ch ews one [...] day(s) Sep, Active PROCEDURES No Information RESULTS No Results REASON FOR VISIT AFO MEDICAL (GENERAL) HISTORY Type Description Date Medical [...] strip subcutaneously bid for 30 Days Aug, Next Appt Details Provider Name:Salud Sparks, 10-05 02:00:00 PM, [address] [place] [address], [phone], Provider Name:Salud Sparks, 10-06 01:30:00 PM, [address] [place] [address], [phone], Insurance Providers Payer Name Payer Address Payer Phone Insured Name Patient Relati onship to Insured Coverage Start Date Coverage End Date MEDICAID [employer] [address] [facility] [id number] GW[facility] JOLLEY [facility] [address] [address] [facility] [address] GWEN TAVERAS self
--- OUTSIDE RECORDS SUMMARY | 2020-10-24 18:59 | CCD ---
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 Active 02544708 Problem Hyperlipidemia, unspecified E78.5 Active 5582 2004 Problem Chronic pain syndrome G89.4 Active 663958992 Problem Primary osteoarthritis of first carpometacarpal joint of left hand M18.12 Active 04696886 Problem Vitamin D deficiency, unspecified E55.9 Active 66625374 Problem Type 2 diabetes mellitus wit h hyperglycemia, without long-term current use of insulin E11.65 Active 73556162 Problem Major depressive disorder wi th single episode, remission status unspecified F32.9 Active 76651366 Problem Diabetes mellitus with hyperglycemia E11.65 Act jack [id number] Problem Neck pain, chronic M54.2 Active 4273508312252 Problem Benign prostatic hyperplasia with lower urinary tract symptoms N40.1 Active 9342583022155 Problem Iron deficiency anemia, unspecified D50.9 Acti ve 24272414 Problem Male erectile dysfunction, unspecified N52.9 A ctive 712680848 Problem Chronic low back pain M54.5 Active 506938559 Problem Crohn''s disease with other complication, unspecified gastrointestinal tract location K50.918 Active 23023615 Problem Alcoholic cirrhosis of liver without ascites K70.3 0 Active 453516784 Problem Restless legs G25.81 Active 11988951 Problem Alcohol dependence, uncomplicated F10.20 Active 44478101 Problem Alcoholic liver disease K70.9 Active 49710599 Problem Nicotine dependence, unspecified, uncomplicated F1 7.200 Active 592194133 Problem Colon cancer screening Z12.11 Active 336911877 Problem Essential (primary) hypertension I10 Active 74700762 Problem Neuropathy G62.9 Active 766880109 Problem Hypomagnesemia E83.42 Active 965684510 Problem Hypertension I10 Active 81882532 Problem Gastro-esophageal reflux disease without esophagitis K21.9 Active 334243042 Problem Erectile dysfunction, unspecified erectile dysfunction typ e N52.9 Active 970820897 Problem Crohn's disease, unspecified, without complications K50.90 Active 83162664 Problem Hypogonadism in male E29.1 Active 93119676 Problem Iron deficiency anemia due to chronic blood loss D 50.0 Active 302803658 Problem Surgical operation with anas tomosis, bypass or graft as the cause of abnormal reaction of the patient, or of later complication, without mention of misadventure at the time of the procedure Y83.2 Activ e 44407861 Problem Alcohol-induced chronic pancreatitis K86.0 Act jack 501392157 Problem Unsteady gait R26.81 Active 37641179 Problem 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 Active 8954118 Problem Type 2 diabetes mellitus with other diabetic kid kenna complication E11.29 Active 324681426 Problem Chronic hepatitis C without hepatic coma B18.2 Active 128101252 Problem Fatty liver due to alcoholism K70.0 Active 50 955781 Problem Crohn's disease with complic ation, unspecified gastrointestinal tract location K50.919 Active 72372379 Problem Benign prostatic hyperplasia without lower urina ry tract symptoms N40.0 Active 355364414 Problem Fatty liver K76.0 Active 158374927 ALLERGIES No Known Allergies ENCOUNTERS from 1966 to 2020-10-07 Encounter Location Date Provider Diagnosis [address] [address] Sep, Salud Sparks Alcohol-induced acute pancreatitis with infected necrosis K85.22 ; Upper gastrointestinal bleed K92.2 ; Essential (primary) hypertension I10 ; Alcohol-induced chronic pancreatitis 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 ; Fatty liver due to alcoholism K70.0 ; Crohn's disease with complication, unspecified gastrointestinal tract location K50.919 ; Hypomagnesemia E83.42 ; Acquired right foot drop M21.371 ; Type 2 diabetes mellitus with hyperglycemia, without long-term current use of insulin E11.65 ; Neuropathy G62.9 ; Erectile dysfunction, unspecified erectile dysfunction type N52.9 ; Restless legs G25.81 ; Major depressive disorder with single episode, remission status unspecified F32.9 and Benign prostatic hyperplasia without lower urinary tract symptoms N40.0 IMMUNIZATIONS Vaccine Route Administration Date Status Influenza [...] Education Language: Question Answer Notes Languages spoken: Slovak Voodoo: Question Answer Notes Voodoo 03 Zoroastrianism Sexual Hx: Question Answer Notes Had sex [...] Information Given 10/05/2020 Additional Findings: Tobacco Non-User [facility] one can a day Patient counseled on the dangers of tobacco use and urged to quit: 09/07/2020 How many cigarettes a day do you smoke? 5 or less Are you interested in quitting? Thinking about quitting Counseled the patient on smoking cessation, education [facility] ed 10/05/2020 REASON FOR REFERRAL No Information VITAL SIGNS Weight 169.6 lbs Sep, Height 69 in Sep, BMI 25.04 kg/m2 Sep, Heart Rate 111 /min Sep, Respiratory Rate 18 /min Sep, Temperature 99.9 degrees Fahrenheit Sep, Oximetry 100% Sep, Blood pressure systolic 160 mm Hg Sep, Blood pressure diastolic 90 mm Hg Sep, MEDICATIONS Medication SIG (Take, Route, Frequency, Duration) Notes Start Da te End Date Status Thiamine HCl 100 MG 1 tablet Orally Once a day for 30 day(s) Sep, Active HydrOXYzine HCl 50 MG 1 tab Orally every 6 hrs as needed for itching or anxiety Active Blood Glucose Test Strip - 1 strip Dx: E11.9 Twice a day Active MetFORMIN HCl ER 500 MG 2 tablet with evening meal Orally bid Active Glucometer as directed subcutaneously At breakfast and dinner. DX: E1 1.65 Active BD Pen Needle Mini U/F 31G X 5 MM 1 injection subcutan eously before bedtime for 30 Days Active Cyclobenzaprine HCl 10 MG 1 tablet Orally Three times a day as needed for 30 Days Active Lantus SoloStar 100 UNIT/ML 10 units Subcutaneous before bedtime for 30 days Sep, Active May Have - cane _ _ for 999 days Sep, A ctive Naltrexone HCl 50 MG 1 tablet Oral Daily Active One touch ultra blue _ 1 bottle of test solution _ _ Active Tamsulosin HCl 0.4 MG 1 capsule Orally bid for 30 day(s) 2 5 Sep, 2020 Active FreeStyle Lancets - as directed subcutaneously bid for 30 Days Aug, Active Ropinirole HCl 0.5 MG 1 tablet 1 to 3 hours before bedtime Orall y Once a day Active Omeprazole 40 MG 1 capsule 30 minutes before morning meal Orally Once a day Aug, Active Lancets - as directed subcutaneously Before breakfast and dinner. E1 1.65 Active Sildenafil Citrate 25 MG 1 tablet as needed Orally Once a day for 3 0 day(s) Active Gabapentin 600 MG 1 tablet Orally three times a day Active Blood Glucose Test Strip - as directed In Vitro Aug, Active Lidocaine-Prilocaine 2.5-2.5 % 1 application raw area of leg Externally three times daily May, Active Omeprazole 40 MG 1 tablet Orally twice a day Active FreeStyle Lite - 1 strip subcutaneously bid for 30 Days Aug, Active Bactrim DS 800-160 MG 1 tablet Orally Twice a day for 10 day(s) 25 Roberto, 2021 Active Ferrous Sulfate 325 (65 Fe) MG [...] No Information RESULTS Component Value Reference Range AMYLASE Reviewed date:10/06/2020 08:25:57 Interpretation: Performing Lab:[facility] [address] [address] , ,[place] [address] AMYLASE 19 25-115 CBC with Differential Reviewed date:10/06/2020 08:26:27 Interpretation: Performing Lab:[facility] [address] [address] , ,[place] [address] WHITE BLOOD COUNT 4.5 4.0-10.0 RED BLOOD COUNT 3.02 4.30-6.10 HEMOGLOBIN 9.3 13.5-17.5 HEMATOCRIT 28.5 42.0-52.0 MEAN CORPUSCULAR VOLUME 94.4 80.0-96.0 MEAN CORPUSCULAR HEMOGLOBIN 30.8 27.0-33.0 MEAN CORPUSCULAR HGB CONC 32.6 32.0-36.5 RED CELL DISTRIBUTION WIDTH 15.9 11.5-14.5 PLATELET COUNT, AUTOMATED 393 150-450 NEUTROPHILS % 66.5 36.0-66.0 LYMPH % 22.5 24.0-44.0 MONO % 8.2 0.0-5.0 EOS % 1.1 0.0-3.0 BASO % 1.5 0.0-1.0 NEUTROPHILS # 3.0 1.5-8.5 LYMPH # 1.0 1.5-5.0 MONO # 0.4 0.0-0.8 EOS # 0.1 0.0-0.5 BASO # 0.1 0.0-0.2 Comprehensive Metabolic Profile (CMP) Reviewed date:10/06/2020 08:27:31 Interpretation: Performing Lab:[facility] [address] [facility] [address] , ,[place] [address] GLUCOSE, FASTING 557 70-100 BLOOD UREA NITROGEN 14 7-18 CREATININE FOR GFR 1.38 0.70-1.30 GLOMERULAR FILTRATION RATE 57.2 >56 SODIUM LEVEL 133 136-145 POTASSIUM SERUM 4.8 3.5-5.1 CHLORIDE LEVEL 97 98-107 CARBON DIOXIDE LEVEL 33 21-32 CALCIUM LEVEL 8.2 8.5-10.1 AST/SGOT 14 7-37 ALT/SGPT 19 12-78 ALKALINE PHOSPHATASE 173 45-117 BILIRUBIN,TOTAL 0.2 0.2-1.0 TOTAL PROTEIN 4.9 6.4-8.2 ALBUMIN 1.8 3.2-5.2 ALBUMIN/GLOBULIN RATIO 0.6 LIPASE Reviewed date:10/06/2020 08:25:46 Interpretation: Performing Lab:[facility] [address] [facility] [address] , ,[place] [address] LIPASE 44 73-393 IRON (FE) Reviewed date:10/06/2020 08:26:38 Interpretation: Performing Lab:[facility] [address] [address] [facility] [address] , ,[place] [address] IRON (FE) 17 65-175 FERRITIN Reviewed date:10/06/2020 08:26:48 Interpretation: Performing Lab:[facility] [address] [address] , ,[place] [address] FERRITIN 21 26-388 MAGNESIUM LEVEL Reviewed date:10/06/2020 08:27:40 Interpretation: Performing Lab:[facility] [address] [address] , ,[place] [address] MAGNESIUM LEVEL 1.6 1.8-2.4 C REACTIVE PROTEIN QUANTITATIV (At [facility] L [facility]) Reviewed date:10/06/2020 08:27:49 Interpretation: Performing Lab:[facility] [address] [facility] [address] , ,[place] [address] C REACTIVE PROTEIN QUANTITATIV 1.05 0.00-0.30 REASON FOR VISIT [facility], d/c 09/28, nausea/rhabdomyolysis MEDICAL (GENERAL) HISTORY Type Description Date Medical [...] Treatment Notes Treatm ent Clinical Notes Sep, Alcohol-induced acute pancre atitis with infected necrosis (ICD-10 - K85.22) Denies pain or further alcohol use since d/c Sep, Upper gastrointestinal bleed (ICD-10 - K92.2) Sep, Essential (primary) hypertension (ICD-10 - I10) still high only has 1- 2 ran out of money for month Sep, Alcohol-induced chronic pancreatitis (ICD-10 - K 86.0) can't afford Sep, Fatty liver due to alcoholism (ICD-10 - K70.0) Sep, Crohn's disease with complic ation, unspecified gastrointestinal tract location (ICD-10 - K50.919) Sep, Hypomagnesemia (ICD-10 - E83.42) Sep, Acquired right foot drop (ICD-10 - M21.371) PT. ambulates c assist c straight cane, weak in his Rt. foot & ankle requires stablilization 2 profound dorsiflexor weakness, causing Rt. foot drop & cathces the ground increasing his fall risk. This is a safety issue. He would benefit functionally from a solid ankle AFO to prevent his Rt. foot drop into his plantar flexion during swing phase. This will prevent his toes from catching & causing him to stumble & likely fall. A Custom molded solid ankle AFO would benefit him due to need for custom molded footplate and antivarus/valgus control in order to stabilize his Rt. ankle. This is weakness is indefinite and he needs to be able to control his Rt. foot and ankel int he sagittal & coronal planes, a custom fabricated over a model is required to prevent further tissue injury 2 his T2DM. Rt. custom molded solid ankle AFO, Antivarus/valgus control, soft interface calf segment ordered & faxed to [facility]. by nurse SAÚL. Sep, Type 2 diabetes mellitus wit h hyperglycemia, without long-term current use of insulin (ICD-10 - E11.65) Sep, Neuropathy (ICD-10 - G62.9) Sep, Erectile dysfunction, unspec ified erectile dysfunction type (ICD-10 - N52.9) can't afford Sep, Restless legs (ICD-10 - G25.81) Favor 2 anemia/ can't afford rop Sep, Major depressive disorder wi th single episode, remission status unspecified (ICD-10 - F32.9) can't afford Sep, Benign prostatic hyperplasia without lower urinary tract symptoms (ICD-10 - N40.0) Sep, Other Discharged on m ultivit., omega 3cousate sodium 100mg bid, sesnna8.6 2 qhs for constip. not using 2 no $ PLAN OF TREATMENT Medication Medication Name Sig Start Date Stop Date AmLODIPine Besylate 10 MG 1 tablet Orally Once a day Lisinopril 40 MG 1 tablet Orally daily Carvedilol 25 MG 1 tablet with food Orally Twice a day Duloxetine HCl 20 MG TAKE ONE CAPSULE BY MOUTH EVERY DAY Oral Omeprazole 40 MG 1 capsule 30 minutes before morning meal Orally Once a day Aug, MetFORMIN HCl ER 500 MG 2 tablet with evening meal Orally bid Gabapentin 600 MG 1 tablet Orally three times a day Lidocaine-Prilocaine 2.5-2.5 % 1 application raw area of leg Externally three times daily May, One touch ultra blue _ 1 bottle of test solution _ _ Lantus SoloStar 100 UNIT/ML 10 units Subcutaneous before bed time for 30 days Sep, Ropinirole HCl 0.5 MG 1 tablet 1 to 3 hours before bedtime Orall y Once a day Ferrous Sulfate 325 (65 Fe) MG 2 tablets 30 Every other day 2020 Tamsulosin HCl 0.4 MG 1 capsule Orally bid for 30 day(s) Sep, Bactrim DS 800-160 MG 1 tablet Orally Twice a day for 10 day(s) Sep, Blood Glucose Test Strip - 1 strip Dx: E11.9 Twice a day Glucometer as directed subcutaneously At breakfast and dinn er. DX: E11.65 Thiamine HCl 100 MG 1 tablet Orally Once a day for 30 day(s) Sep, Lancets - as directed subcutaneously Before breakfast and dinner. E11.65 Naltrexone HCl 50 MG 1 tablet Oral Daily Treatment Notes Assessment Notes Clinical Notes Alcohol-induced acute pancreatitis with infected necrosis Denies pain or further alcohol use since d/c Essential (primary) hypertension still h igh only has 1- 2 ran out of money for month Alcohol-induced chronic pancreatitis can 't afford Acquired right foot drop PT. ambulates c assist c straight cane, weak in his Rt. foot & ankle requires stablilization 2 profound dorsiflexor weakness, causing Rt. foot drop & cathces the ground increasing his fall risk. This is a safety issue. He would benefit functionally from a solid ankle AFO to prevent his Rt. foot drop into his plantar flexion during swing phase. This will prevent his toes from catching & causing him to stumble & likely fall. A Custom molded solid ankle AFO would benefit him due to need for custom molded footplate and antivarus/valgus control in order to stabilize his Rt. ankle. This is weakness is indefinite and he needs to be able to control his Rt. foot and ankel int he sagittal & coronal planes, a custom fabricated over a model is required to prevent further tissue injury 2 his T2DM.Rt. custom molded solid ankle AFO, Antivarus/valgus control, soft interface calf segment ordered & faxed to [facility] lab. by nurse SL. Erectile dysfunction, unspecified erectile dysfunction type can't afford Restless legs Favor 2 anemia/ can' t afford rop Major depressive disorder with single episode, remission sta tus unspecified can't afford Next Appt Details 4 Weeks c SS, BW today Reason: Provider Name:Salud Emanuel Sparks, 11-05 01:30:00 PM, [address] [place], [address], Insurance Providers Payer Name Payer Address Payer Phone Insured Name Patient Relati onship to Insured Coverage Start Date Coverage End Date MEDICAID [employer] [address] [facility] [address] [address] [place] [facility] [address] [address] [facility] [address] GWEN TAVERAS
--- OUTSIDE RECORDS SUMMARY | 2020-10-24 19:00 | CCD ---
Author Author [facility] Organization [facility] Address Unknown Phone Unavailable Care Team Providers Care Fractionation Supervisor Name Role Phone Salud Sparks Unavailable PROBLEMS Type Condition ICD9-CM Code [id number] Code Onset Dates Condition S tatus SNOMED Code Notes Problem Crohn's disease, unspecified, without complications K50.90 Active 20732777 Problem Iron deficiency anemia, unspecified D50.9 Acti ve 28493948 Problem Gastro-esophageal reflux disease without esophagitis K21.9 Active 413835703 Problem Chronic low back pain M54.5 Active 311675195 Problem Neck pain, chronic M54.2 Active 7016567519088 Problem 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 Active 52331547 Problem Male erectile dysfunction, unspecified N52.9 A ctive 768845541 Problem Restless legs G25.81 Active 58751701 Problem Alcohol dependence, uncomplicated F10.20 Active 46045008 Problem Alcoholic liver disease K70.9 Active 50589923 Problem Nicotine dependence, unspecified, uncomplicated F1 7.200 Active 725357952 Problem Essential (primary) hypertension I10 Active 21465328 Problem Hypomagnesemia E83.42 Active 893183540 Problem Major depressive disorder wi th single episode, remission status unspecified F32.9 Active 52436082 Problem Primary osteoarthritis of first carpometacarpal joint of left hand M18.12 Active 13539627 Problem Type 2 diabetes mellitus with other diabetic kid kenna complication E11.29 Active 498912145 Problem Type 2 diabetes mellitus wit h hyperglycemia, without long-term current use of insulin E11.65 Active 80524124 Problem Chronic hepatitis C without hepatic coma B18.2 Active 363566282 Problem Unsteady gait R26.81 Active 03488793 Problem Crohn''s disease with other complication, unspecified gastrointestinal tract location K50.918 Active 92367634 Problem Alcoholic cirrhosis of liver without ascites K70.3 0 Active 242029170 Problem Neuropathy G62.9 Active 818944737 Problem Colon cancer screening Z12.11 Active 519340754 Problem Hypertension I10 Active 58281635 Problem Iron deficiency anemia due to chronic blood loss D 50.0 Active 209875257 Problem Hyperlipidemia, unspecified E78.5 Active 5582 2004 Problem Surgical operation with anas tomosis, bypass or graft as the cause of abnormal reaction of the patient, or of later complication, without mention of misadventure at the time of the procedure Y83.2 Activ e 06595304 Problem Chronic pain syndrome G89.4 Active 331143556 Problem Vitamin D deficiency, unspecified E55.9 Active 66888825 Problem Erectile dysfunction, unspecified erectile dysfunction typ e N52.9 Active 014396512 Problem Benign prostatic hyperplasia with lower urinary tract symptoms N40.1 Active 2817406567229 Problem Diabetes mellitus with hyperglycemia E11.65 Act jack 592394064454002 Problem Hypogonadism in male E29.1 Active 01978020 ALLERGIES No Known Allergies ENCOUNTERS from 1965 to 2020-09-08 Encounter Location Date Provider Diagnosis [address] [address] Aug, Salud Sparks IMMUNIZATIONS Vaccine Route Administration Date [...] Education Language: Question Answer Notes Languages spoken: Maltese Adventism: Question Answer Notes Adventism 03 Druze Sexual Hx: Question Answer Notes Had sex [...] Notes Start Da te End Date Status Naltrexone HCl 50 MG 1 tablet Oral Daily for 30 Days Active Sildenafil Citrate 25 MG 1 tablet as needed Orally Once a day for 3 0 day(s) Active Ropinirole HCl 0.5 MG 1 tablet 1 to 3 hours before bedtime Orally Once a day for 30 day(s) Active Cyclobenzaprine HCl 10 MG 1 tablet Orally Three times a day as needed for 30 Days Active Blood Glucose Test Strip - as directed In Vitro Aug, Active Lidocaine-Prilocaine 2.5-2.5 % 1 application raw area of leg Externally three times daily for 30 days May, Active Carvedilol 25 MG 1 tablet with food Orally Twice a day for 30 day(s) Active HydrOXYzine HCl 50 MG 1 tab Orally every 6 hrs as needed for itching or anxiety Active Duloxetine HCl 20 MG TAKE ONE CAPSULE BY MOUTH EVERY DAY Oral Active Lancets - as directed subcutaneously Before breakfast and dinner. E1 1.65 Active One touch ultra blue _ 1 bottle of test solution _ _ Active Sucralfate 1 GM/10ML 10 ml on an empty stomach Or ally four times daily for 30 day(s) Aug, Active FreeStyle Lite - 1 strip subcutaneously bid for 30 Days Aug, Active Blood Glucose Test Strip - 1 strip Dx: E11.9 Twice a day Active Viagra 25 MG 1 tablet as needed Orally Once a day Active FreeStyle Lancets - as directed subcutaneously bid for 30 Days Aug, Active FLUoxetine HCl 60 MG 1 tablet Orally Once a day for 30 day(s) Sep, Active Omeprazole 40 MG 1 capsule 30 minutes before morning meal Orally Once a day for 30 day(s) Aug, Active Gabapentin 600 MG 1 tablet Orally three times a day Active Glucometer as directed subcutaneously At breakfast and dinner. DX: E1 1.65 Active Omeprazole 40 MG 1 tablet Orally twice a day Active May Have - cane _ _ for 999 days Sep, A ctive Lisinopril 40 MG 1 tablet Orally daily for 30 Active BD Pen Needle Mini U/F 31G X 5 MM 1 injection subcutan eously before bedtime for 30 Days Active MetFORMIN HCl ER 500 MG 4 tablet with evening meal Orally Once a day Active PROCEDURES No Information RESULTS No Results REASON FOR VISIT No Information MEDICAL (GENERAL) HISTORY Type Description Date Medical [...] Medication Name Sig Start Date Stop Date Omeprazole 40 MG 1 capsule 30 minutes before morning meal Orally Once a day for 30 day(s) Aug, MetFORMIN HCl ER 500 MG 4 tablet with evening meal Orally Once a day Blood Glucose Test Strip - as directed In Vitro Aug, Sucralfate 1 GM/10ML 10 ml on an empty stomach Or ally four times daily for 30 day(s) Aug, FreeStyle Lite - 1 strip subcutaneously bid for 30 Days Aug, FreeStyle Lancets - as directed subcutaneously bid for 30 Days 2 Aug, Next Appt Details Provider Name:Salud Castellanos Bridger, 10-06 01:30:00 PM, [address] [place], [address], Insurance Providers Payer Name Payer Address Payer Phone Insured Name Patient Relati onship to Insured Coverage Start Date Coverage End Date [employer] [facility] [address] [address] [facility] [address] GWEN TAVERAS MEDICAID [employer] [address] [facility] [id number] [place]
--- OUTSIDE RECORDS SUMMARY | 2020-10-24 19:00 | CCD | Summary of Care ---
Author Author [facility] Address Unknown Phone Unavailable Care Team Providers Care Supervisor Carding Name Role Phone Pcp, No PCP Unavailable Reason for Visit * Reason Comments Peptic Ulcer Disease Encounter Details Care Team Description Date Type Department Tamra Erwin, KEITH [address] [id number] Marginal ulcer (Primary Dx); Dilated cbd, acquired 07/29/2020 [facility] [address] [address] Allergies No Known Allergiesdocumented as of this encounter (statuses as of 07/29/2020) Medications End Date Status Medication Sig Dispensed [...] by 0 Tablet (DEPADE) mouth daily Active [id number] Ethyl Esters Take 2 g by 0 [...] as of this encounter (statuses as of 07/29/2020) Active Problems Problem Noted Date GI bleeding 03/21/2020 EtOH dependence 03/21/2020 Type 2 diabetes mellitus 03/21/2020 Essential hypertension 03/21/2020 Polysubstance abuse 03/21/2020 Alcohol withdrawal 03/21/2020 Symptomatic cholelithiasis 09/22/2017 documented as of this encounter (statuses as of 07/29/2020) Social History Date Tobacco Use Types Packs/Day Years Used Current Every Day Smoker Cigarettes 0.5 5 Smokeless Tobacco: Current User Drinks/Week oz/Week Comments Alcohol Use 24 Cans of beer 24.0 Yes Sex Assigned at Date Recorded Not on file Date Recorded COVID-19 Exposure Response 07/29/2020 11:27 AM EST In the last month, have you been in contact with No / Unsure someone who was confirmed or suspected to have Coronavirus / COVID-19? documented as of this encounter Last Filed Vital Signs Not on filedocumented in this encounter Progress Notes * Tamra Erwin MBBS - 07/29/2020 2:00 PM EST ID: Daryl Fraire is a 55 y.o. male PCP: No Pcp CC: Follow up visit for H/o marginal ulcer and chronic pancreatitis. Brief History/Interval History Mr. Daryl Fraire is a 55 year old M with medical Hx significant for gastric byp ass surgery, HTN, HLD, was evaluated by the inpt GI team in March 2020 for sympto ms of painless hematochezia. Hb was low at 8 compared to baseline of 11-12g/dL. He did not have any further episodes of bleeding while admitted in the hospital. A CT abdomen pelvis was done, which showed an incidental finding of dilated pa ncreatic duct CBD diameter of 7 mm with 3 mm filling defect. This was confirmed with an MRCP. However patient LFTs were normal and patient did not have any sy mptoms of abdominal pain, nausea or vomiting. An EGD colonoscopy was performed in the hospital to evaluate for concerning lower GI bleed on 03/25/20. An EGD w as done first which showed a marginal ulcer. A colonoscopy was done which showe d no abnormal findings or lesions or masses. CT enterography was done to evaluat e for small bowel pathology, however was normal. Hence patient was discharged o n PPI twice daily, sucralfate and the plan was to repeat EGD in 2 months to asse ss for healing and discuss the need for ERCP for choledocholithiasis and PD dila tion. During my last telemedicine encounter on 05/13, pt reported that he never comple maria t the BID PPI and carafate due to compliance issues. Hence at that visit we re commended that he completed the treatment for his marginal ulcer, with repeat LF T's. Today pt reported completion of the BID PPI for 2 months, however he did no t get the bloodwork done as he lost the scripts. Otherwise pt is asymptomatic fo r the most part, has occasional abdominal cramping below the umbilicus which get s better with meals. Denies any GI bleeding, denies fevers, chills, N/V or any o ther symptoms. He takes daily omeprazole. Colonoscopy done on 03/25 showed hemorrhoids and tattooing of the hepatic flexur e area. Pt reports that he had a colonoscopy done 6-[address] Del Valle 's office, unsure of the results Past Medical & Surgical History He has [...] (DEPADE) Take 50 mg by mouth daily [id number]-[id number]-vdak Ethyl Esters 1 GM Oral Capsule (LOVAZA) [...] Systems Review of Systems Constitutional: Negative for chills, fever and weight loss. Respiratory: Negative for cough and shortness of breath. Cardiovascular: Negative for chest pain and leg swelling. Gastrointestinal: Positive for diarrhea. Negative for abdominal pain, blood in s tool, constipation, heartburn, melena, nausea and vomiting. Genitourinary: Negative for dysuria. Musculoskeletal: Negative for myalgias. Neurological: Negative for dizziness and headaches. Psychiatric/Behavioral: Negative for depression. Physical Exam: There were no vitals taken for this visit. Physical Exam - not done as it was a telemedicine encounter. Data review: Lab 03/25/20 0254 03/25/20 1228 [...] CREATININE 0.80 0.83 0.92 0.97 1.10 Lab 09/22/17 1940 09/23/17 0351 09/24/17 0408 03/21/20 0022 03/21/20 0524 03/22/20 0330 PROT 6.2* 6.0* 6.1* 5.0* 5.3* 5.3* ALBUMIN 3.6 3.4 3.4 2.9* 3.3* 3.0* ALT 63* 57* 49* 22 23 20 AST 29 27 42* 44* 42* 34 ALKPHOS 69 64 64 89 99 96 TBILI 1.1* 1.1* 0.9 0.6 0.7 0.4 BILIDIR 0.5* 0.6* 0.2 -- -- -- Lab 09/22/17 1940 03/21/20 0022 LIPASE -- 16 INR 1.08 1.12 Assessment: Mr. Daryl Fraire is a 55 year old M with medical Hx significant for gastric byp ass surgery, HTN, HLD was evaluated by the inpt GI team for painless hematochezi a and CT evidence of PD dilation, chronic pancreatitis and concerns for choledoc holithiasis seen on CT and MRCP. LFT's were normal at that time with no concern for obstruction or cholangitis, hence plan was to address the GI bleeding during that hospitalization. An EGD was done on 03/25 which showed a non-bleeding merline inal ulcer which did not require any endoscopic therapy. Was managed medically w ith PPI BID and sucralfate. Pt also underwent a colonoscopy which showed hemorrh oids and tattooing of the hepatic flexure area. (last colonoscopy done at [facility]). Pt completed bid ppi x 2 months, and now remains asymptomatic. We are pending re peat egd to ensure adequate healing of the marginal ulcer. However due to issues with poor compliance, we have been unable to get the procedures done. Pt will s ubsequently need an ERCP to evaluate the choledocholithiasis and PD dilatation. Pt likely has chronic pancreatitis due to prolonged alcohol consumption in the p ast and active smoking. We will also need to decide if pt needs a colonoscopy so nyla, for which we will need to review records from recent colonoscopy. Recommendations: - Have requested colonoscopy reports from Dr. Del Valle's office. Based on the pat h results, we will decide if pt needs a colonoscopy sooner. - Will plan for a repeat EGD as well to ensure adequate healing of the ulcer. - Once this is done we will schedule pt for an ERCP to evaluate the CBD and PD. - For now we are repeating the CBC and LFT's, and will wait for the colonoscopy reports. Will talk to the pt in [address] orders for the procedures. - Counseled pt on smoking cessation. - Recommended to continue daily PPI. Return visit, return visit tasks: 1 week Seen and discussed with Tamra Jarrell, KEITH 07/29/2020 2:15 PM I personally saw and evaluated the patient with Dr. Erwin and the above docu mentation with my edits represents our in tandem history /review of testing / as sessment and recommendations. In summary the patient agrees to comply with ther apy / testing. We do need to know what the results of previous testing was. Se e full recommendations above. documented in this encounter Plan of Treatment Order Schedule Name Type Priority Associated Diag noses 1 Occurrences starting 07/29/2020 until 01/26/2021 Hepatic function panel Lab Routine Margina l ulcer Dilated cbd, acquired 1 Occurrences starting 07/29/2020 until 01/26/2021 CBC Lab Routine Marginal ulcer Health Maintenance Due Date Last Done Comments Lipid Disorder Screening 1965 MMR Vaccines (1 of - 1967 Standard series) Varicella Vaccines (1 [...] without mention of hemorrhage, perforation, or obstruction Dilated cbd, acquired Other specified disorders of biliary tr act documented in this encounter
--- OUTSIDE RECORDS SUMMARY | 2020-10-24 19:00 | CCD ---
Author Author [facility] Organization [facility] Address Unknown Phone Unavailable Care Team Providers Care Procurement Officer Name Role Phone Salud Sparks Unavailable PROBLEMS Type Condition ICD9-CM Code HHL37-IH Code Onset Dates Condition S tatus SNOMED Code Notes Problem Essential (primary) hypertension I10 Active 48516369 Problem Gastro-esophageal reflux disease without esophagitis K21.9 Active 089455164 Problem Crohn's disease, unspecified, without complications K50.90 Active 18946843 Problem Neck pain, chronic M54.2 Active 8718447364030 Problem Iron deficiency anemia, unspecified D50.9 Acti ve 04750790 Problem Male erectile dysfunction, unspecified N52.9 A ctive 467253248 Problem Chronic low back pain M54.5 Active 103652990 Problem Alcoholic liver disease K70.9 Active 44932301 Problem Nicotine dependence, unspecified, uncomplicated F1 7.200 Active 772635571 Problem Crohn''s disease with other complication, unspecified gastrointestinal tract location K50.918 Active 00107173 Problem Hypomagnesemia E83.42 Active 807188801 Problem Alcohol dependence, uncomplicated F10.20 Active 81050683 Problem Primary osteoarthritis of first carpometacarpal joint of left hand M18.12 Active 57495760 Problem Vitamin D deficiency, unspecified E55.9 Active 48656588 Problem Type 2 diabetes mellitus wit h hyperglycemia, without long-term current use of insulin E11.65 Active 28720077 Problem Major depressive disorder wi th single episode, remission status unspecified F32.9 Active 15156107 Problem Chronic hepatitis C without hepatic coma B18.2 Active 246534401 Problem Type 2 diabetes mellitus with other diabetic kid kenna complication E11.29 Active 910243112 Problem Alcoholic cirrhosis of liver without ascites K70.3 0 Active 060148354 Problem Unsteady gait R26.81 Active 54612850 Problem Restless legs G25.81 Active 27633718 Problem Neuropathy G62.9 Active 964992258 Problem Colon cancer screening Z12.11 Active 748893203 Problem Hypogonadism in male E29.1 Active 74035842 Problem Chronic pain syndrome G89.4 Active 698981894 Problem Iron deficiency anemia due to chronic blood loss D 50.0 Active 067463854 Problem 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 Active 23678898 Problem Hyperlipidemia, unspecified E78.5 Active 5582 2004 Problem Hypertension I10 Active 35603210 Problem Erectile dysfunction, unspecified erectile dysfunction typ e N52.9 Active 512596864 Problem Benign prostatic hyperplasia with lower urinary tract symptoms N40.1 Active 0007871081308 Problem Diabetes mellitus with hyperglycemia E11.65 Act jack [id number] ALLERGIES No Known Allergies ENCOUNTERS from 1965 to 2020-08-17 Encounter Location Date Provider Diagnosis [address] [address] Aug, Salud Sparks IMMUNIZATIONS Vaccine Route Administration [...] School Audit Question Answer Notes Total Score: 0 Interpretation: Alcohol Education Language: Question Answer Notes Languages spoken: Portuguese Mormon: Question Answer Notes Mormon 03 Yazdanism Sexual Hx: Question Answer Notes Had sex [...] fine cut tobacco Smoking Cessation Information Given 12/09/2019 Additional Findings: Tobacco Non-User ch ews one can a day Patient counseled on the dangers of tobacco use and urged to quit: 12/09/2019 How many cigarettes a day do you smoke? 6-10 Are you interested in quitting? Thinking about quitting Counseled the patient on smoking cessation, education provid ed 12/09/2019 REASON FOR REFERRAL No Information VITAL SIGNS No information MEDICATIONS Medication SIG (Take, Route, Frequency, Duration) Notes Start Da te End Date Status Duloxetine HCl 20 MG TAKE ONE CAPSULE BY MOUTH EVERY DAY Oral Active Naltrexone HCl 50 MG 1 tablet Oral Daily for 30 Days Active Viagra 25 MG 1 tablet as needed Orally Once a day Active One touch ultra blue _ 1 bottle of test solution _ _ Active Januvia 100 MG 1 tablet Orally Once a day Active Naltrexone HCl 50 MG 1 tablet Orally Once a day for 30 day(s) Not-Taking BD Pen Needle Mini U/F 31G X 5 MM 1 injection subcutan eously before bedtime for 30 Days Active Omeprazole 20 MG 1 tablet Orally Daily for 30 days Active Thiamine 50 MG 2 capsules Orally Once a day for 30 day(s) Active Lantus SoloStar 100 UNIT/ML as directed Subcutaneous before bedtime Active May Have - cane _ _ for 999 days Sep, A ctive Ropinirole HCl 0.5 MG 1 tablet 1 to 3 hours before bedtime Orally Once a day for 30 day(s) Active Cyclobenzaprine HCl 10 MG 1 tablet Orally Three times a day as needed for 30 Days Active Acamprosate Calcium 333 MG 2 tablets Orally Three times a day for 3 0 day(s) Unknown Atenolol 50 MG 1.5 tablet Orally Once a day Active Lancets - as directed subcutaneously Before breakfast and dinner. E1 1.65 Active Blood Glucose Test Strip - 1 strip Dx: E11.9 Twice a day Active Levocetirizine Dihydrochloride 5 MG 1 tablet in the ev ening Orally Once a day for 30 day(s) Feb, Unknown Colace 100 MG 1 capsule as needed Orally Daily for 30 day(s) Unknown Glucometer as directed subcutaneously At breakfast and dinner. DX: E1 1.65 Active Nystatin-Triamcinolone 908722-5.1 UNIT/GM 1 application Exte rnally Twice a day Sep, Unknown Flomax 0.4 MG 1 capsule Orally Once a day for 30 day(s) Active Ferrous Sulfate 325 (65 Fe) MG 2tablets Orally Every other day for 30 Days Unknown MetFORMIN HCl ER 500 MG 4 tablet with evening meal Orally Once a day Active HydrOXYzine HCl 50 MG 1 tab Orally every 6 hrs as needed for itching or anxiety Active AmLODIPine Besylate 5 MG 1 tablet Orally Once a day Active Gabapentin 300 MG TAKE ONE CAPSULE BY MOUTH TH REE TIMES A DAY MAXIMUM DAILY DOSE 3 Oral Unknown FLUoxetine HCl 60 MG 1 tablet Orally Once a day for 30 day(s) Sep, Active Lisinopril 40 MG 1 tablet Orally daily Active Lidocaine-Prilocaine 2.5-2.5 % 1 application raw area of leg Externally three times daily for 30 days May, Active PROCEDURES No Information RESULTS No Results REASON FOR VISIT no show MEDICAL (GENERAL) HISTORY Type Description Date Medical [...] alcoholic. brain damage & cannabis use 07/2017 Goals Section No Information Health Concerns No Information MEDICAL EQUIPMENT No Information MENTAL STATUS No Information FUNCTIONAL STATUS No Information ASSESSMENTS No Information PLAN OF TREATMENT Medication Medication Name Sig Start Date Stop Date AmLODIPine Besylate 5 MG 1 tablet Orally Once a day Lisinopril 40 MG 1 tablet Orally daily Lancets - as directed subcutaneously Before breakfast and dinner. E11.65 Atenolol 50 MG 1.5 tablet Orally Once a day Glucometer as directed subcutaneously At breakfast and dinn er. DX: E11.65 Lantus SoloStar 100 UNIT/ML as directed Subcutaneous before bedt destinee Viagra 25 MG 1 tablet as needed Orally Once a day MetFORMIN HCl ER 500 MG 4 tablet with evening meal Orally Once a day Januvia 100 MG 1 tablet Orally Once a day Duloxetine HCl 20 MG TAKE ONE CAPSULE BY MOUTH EVERY DAY Oral Blood Glucose Test Strip - 1 strip Dx: E11.9 Twice a day Omeprazole 20 MG 1 tablet Orally Daily for 30 days One touch ultra blue _ 1 bottle of test solution _ _ Flomax 0.4 MG 1 capsule Orally Once a day for 30 day(s) Insurance Providers Payer Name Payer Address Payer Phone Insured Name Patient Relati onship to Insured Coverage Start Date Coverage End Date [employer] [facility] [address] [facility] [id number] [employer] [address] [facility] [id number] [place]
--- OUTSIDE RECORDS SUMMARY | 2020-10-24 19:02 | CCD ---
Author Author [facility] Organization [facility] Address Unknown Phone Unavailable Care Team Providers Care Production Consultant Name Role Phone KAREN RUANO MD Unavailable Unavailable KAREN RUANO MD Unavailable Unavailable KAREN RUANO MD Unavailable Unavailable KAREN RUANO MD Unavailable Unavailable KAREN RUANO MD Unavailable Unavailable ASAKAREN Castellanos MD Unavailable Unavailable KAREN RUANO MD Unavailable Unavailable Cheryl KAMARA MD Unavailable [...] Unavailable Mike, R Aiupa MD Unavailable Unavailable BADRINATH, OSMANY . Unavailable Unavailable Udekwu, Adaora MD Unavailable Unavailable Udekwu, Adaora MD Unavailable Unavailable Udekwu, Adaora MD Unavailable Unavailable Udekwu, Adaora MD Unavailable Unavailable Udekwu, Adaora MD Unavailable Unavailable Udekwu, Adaora MD Unavailable Unavailable Udekwu, Adaora MD Unavailable Unavailable Udekwu, Adaora MD Unavailable Unavailable Udekwu, Adaora MD Unavailable Unavailable Udekwu, Adaora MD Unavailable Unavailable Sukhjinder Ruano MD Unavailable Unavailable Dille, E Anne DDS [...] M TAYLOR PA Unavailable Unavailable XANDER, Eduin TAYLOR PA Unavailable Unavailable XANDER, Eduin TAYLOR PA Unavailable Unavailable XANDER, M TAYLOR PA Unavailable Unavailable XANDER, M TAYLOR PA Unavailable Unavailable XANDER, M TAYLOR PA Unavailable Unavailable XANDER, M TAYLOR PA Unavailable Unavailable XANDER, M TAYLOR PA Unavailable Unavailable XANDER, M TAYLOR PA Unavailable Unavailable Re-disclosure Warning The records [...] is protected by Article 27-F of the [facility] Public Health law. If you continue you may have access to information: Regarding HIV / AIDS; Provided by facilities licensed or operated by the [facility] Office of Mental Health; or Provided by the [facility] Office for People With Developmental Disabilities. If such information is present, then the following [facility] mandated warning applies: This information has [...] law may result in a fine or intermediate sentence or both. A general authorization for [...] OSMANY IBANEZ . 11/11/2020 12:00: 00 AM [facility] Outpatient Attender: OSMANY IBANEZ . 11/11/2020 12:00: 00 AM [facility] Unknown [address] [facility] [address] 10/06/2020 12:00:00 AM EST eCW1 ([facility]) Unknown [address] [facility] [address] 10/05/2020 12:00:00 AM EST eCW1 ([facility]) (TCM) Transition of Care Visit [address] [place] [address] 10/05/2020 12:00:00 AM EST eCW1 ([facility]) Unknown [address] [facility] [address] 09/29/2020 12:00:00 AM EST eCW1 ([facility]) Outpatient [address] [facility] [address] 09/07/2020 12:00:00 AM EST eCW1 ([facility]) Unknown [address] [facility] [address] 09/07/2020 12:00:00 AM EST eCW1 ([facility]) Unknown [address] [facility] [address] 08/14/2020 12:00:00 AM EST eCW1 ([facility]) Outpatient Attender: OSMANY IBANEZ .Referrer: Eduin Haq [id number] 08/05/2020 12:00:00 AM EST - 08/05/2020 02:22:15 PM [facility] Outpatient Attender: OSMANY Haq [id number] 12:00:00 AM EST - 07/29/2020 03:37:01 PM EST Gastrojejunal ulcer, unspecified as acut e or chronic, without hemorrhage or perforation [facility] Gastrojejunal ulcer, unspecified as acut e or chronic, without hemorrhage or perforation Unknown [address] [facility] [address] 07/21/2020 12:00:00 AM EST eCW1 ([facility]) Outpatient Attender: Anne Giordano MIROSLAVA PLATA 07/13/2020 04:06:00 P [facility] Outpatient Attender: Anne Giordano DDS BONI 07/13/2020 02:42:00 P [facility] Unknown [address] [facility] [address] 07/07/2020 12:00:00 AM EDT eCW1 ([facility]) Outpatient Attender: Anne Giordano CINTHYARoselia BONI 06/05/2020 08:01:22 P M [facility] Outpatient Attender: OSMANY Haq [id number] 05/13/2020 12:00:00 AM EDT Gastrojejunal ulcer, unspecified as acute or chronic, without hemorrhage or perforation [facility] Gastrojejunal ulcer, unspecified as acut e or chronic, without hemorrhage or perforation Outpatient Attender: Anne Giordano MIROSLAVA PLATA 05/01/2020 04:22:01 P M [facility] Outpatient Attender: Anne Giordano MIROSLAVA PLATA 04/30/2020 01:41:01 P M [facility] Outpatient Attender: Anne Giordano CINTHYARoselia BONI 04/29/2020 11:52:01 A M [facility] Outpatient Attender: OSMANY IBANEZ . 04/29/2020 12:00: 00 AM [facility] Outpatient Attender: Anne Giordano MIROSLAVA PLATA 04/24/2020 08:01:21 P M [facility] Unknown [address] [facility] [address] 04/01/2020 12:00:00 AM EDT eCW1 ([facility]) Unknown [address] [facility] [address] 04/01/2020 12:00:00 AM EDT eCW1 ([facility]) Outpatient Attender: OSMANY Haq [id number] 03/27/2020 08:40:39 AM [facility] Outpatient Attender: Maryann Mckeon MDReferrer: Maryann chow MD 03/25/2020 12:00:[address] [facility] Outpatient Attender: Maryann Mckeon MDReferrer: Maryann chow MD 03/25/2020 12:00:[address] [facility] Inpatient Attender: Maryann Mckeon MDAt tender: Felipe Dale MDAttender: Evaristo Tommyjacquelynwu MDAttender: Aracelis Wright MDAdmitter: RASHAD ANDERSON MDReferrer: Aracelis Wright MD -0603/20/2020 12:00:00 AM EDT - 03/27/2020 03:17:00 PM EDT Essential (primary) hypertension [facility] Essential (primary) hypertension Patient discharged. Outpatient Attender: Anne WATSON 03/12/2020 02:04:00 P M EDT [facility] Outpatient Attender: Anne PLATA 03/02/2020 08:47:00 A M EDT [facility] Outpatient Attender: Anne PLATA 02/24/2020 12:22:02 P M EDT [address] [address] 02/13/2020 12:00:00 AM EDT eCW1 ([facility]) Unknown [address] [place] [address] 02/12/2020 12:00:00 AM EDT [facility]) [address] [address] 01/22/2020 12:00:00 AM EDT eCW1 ([facility]) Outpatient Attender: Anne Giuliana PLATA 12/24/2019 09:56:00 [facility] [address] [place] [address] 12/09/2019 12:00:00 AM EDT eCW1 ([facility]) [facility] [address] [place] [address] 12/06/2019 12:00:00 AM EDT eCW1 ([facility]) Outpatient Attender: Anne Karmenamna MIROSLAVA WATNDC 11/26/2019 02:55:00 P M [facility] Outpatient Attender: Anen Giordano MIROSLAVA WATMARKC 11/26/2019 01:16:01 P M EDT [facility] Outpatient Attender: Anne Giordano MIROSLAVA WATMARKC 11/20/2019 11:01:01 A M [facility] Outpatient Attender: Anne Giordano MIROSLAVA WATNDC 11/20/2019 10:36:00 A M [facility] Outpatient Attender: Anne Giordano MIROSLAVA WATNDC 11/20/2019 10:36:00 A [place] [address] [address] 11/14/2019 12:00:00 AM EST eCW1 ([facility]) [address] [address] 11/13/2019 12:00:00 AM EST eCW1 ([facility]) Outpatient Referrer: TYALOR FERGUSON 11/12/2019 03:18:00 PM EST [facility] [address] [address] 11/12/2019 12:00:00 AM EST eCW1 ([facility]) Outpatient Attender: Anne Giuliana PLATAC 11/05/2019 10:42:01 A [facility] Outpatient Attender: Anne Giuliana [place] WATMARKC 11/05/2019 10:03:01 A M [facility] Outpatient Attender: Anne Karmenamna MIROSLAVA WATNDC 11/01/2019 08:18:00 A M [facility] [address] [place] [address], [place] [address] 11/01/2019 12:00:00 AM EST eCW1 ([facility]) Outpatient Attender: Anne PLATAC 10/31/2019 10:13:00 A [facility] Outpatient Attender: Anne Giuliana PLATAC 10/25/2019 08:02:20 P [facility] [address] [facility] [address] 10/24/2019 12:00:00 AM EST eCW1 [facility]) Outpatient Attender: TAYLOR FERGUSON Physical Therapy 10/12 01:45:00 PM EST MEDENT ([facility]) [facility] [place] [address] [facility] [address] 10/15/2019 12:00:00 AM EST eCW1 ([facility]) Outpatient Attender: Anne WATSON 10/14/2019 05:11:00 P [facility] Outpatient Attender: Anne PLATAC 10/14/2019 05:10:00 P [facility] [address] [place] [address], [place] [address] 10/14/2019 12:00:00 AM EST eCW1 ([facility]) Outpatient Attender: Anne WATSON 10/11/2019 02:53:01 P [facility] Outpatient Attender: Anne WATSON 10/08/2019 10:45:[address] [address] 10/07/2019 12:00:00 AM EST eCW1 ([facility]) Outpatient Attender: Anne WATSON 10/04/2019 10:34:01 A [facility] Outpatient Attender: Anne WATSON 10/04/2019 10:28:00 A [facility] Outpatient Attender: Anne WATSON 10/04/2019 10:27:00 A [facility] Outpatient Attender: Anne WATSON 10/04/2019 09:35:16 A [facility] Outpatient Attender: Anne WATSON 10/04/2019 09:29:42 A [facility] [address] [place] [address], [place] [address] 10/04/2019 12:00:00 AM EST eCW1 ([facility]) Outpatient [facility] 10/02/2019 09:01:13 PM EST [facility] Outpatient [facility] 10/02/2019 12:17:01 PM EST [facility] [address] [place] [address], [place] [address] 10/02/2019 12:00:00 AM EST eCW1 ([facility]) [facility] [address] [place] [address], [place] [address] 09/20/2019 12:00:00 AM EST eCW1 ([facility]) [address] [address] 09/18/2019 12:00:00 AM EST eCW1 ([facility]) [address] [address] 09/16/2019 12:00:00 AM EST eCW1 ([facility]) Inpatient Attender: Karen Vickers nder: KAREN RUANO MDAdmitter: KAREN RUANO MD CPSCAORT-CHEPPDREH 07/01/2019 11:27:00 AM EDT - 07/29/2019 12:14:00 PM EST PSYCHOACTIVE SUBSTANCE DEPENDENCE [facility] PSYCHOACTIVE SUBSTANCE DEPENDENCE Patient discharged. Medications Medication Brand Name Start Date Product Form Dose Route Admi nistrative Instructions Pharmacy Instructions Status Indications Reaction Description Data Source(s) 3 ML Insulin Glargine 100 UNT/ML Pen Inj shruthi [Lantus] Lantus SoloStar 100 UNIT/ML Lantus SoloStar 100 UNIT/ML 10/06/2020 12:00:00 AM EST active Lantus SoloStar 100 UNIT/ML eCW1 ([facility]) 3 ML Insulin Glargine 100 UNT/ML Pen Inj shruthi [Lantus] Lantus SoloStar 100 UNIT/ML Lantus SoloStar 100 UNIT/ML 10/06/2020 12:00:00 AM EST active Lantus SoloStar 100 UNIT/ML eCW1 ([facility]) 3 ML Insulin Glargine 100 UNT/ML Pen Inj shruthi [Lantus] Lantus SoloStar 100 UNIT/ML Lantus SoloStar 100 UNIT/ML 10/06/2020 12:00:00 AM EST active Lantus SoloStar 100 UNIT/ML eCW1 ([facility]) Tamsulosin hydrochloride 0.4 MG Oral Capsule Tamsulosi n HCl 0.4 MG Tamsulosin HCl 0.4 MG 10/05/2020 12:00:00 AM EST 1.0 {capsule} active Tamsulosin HCl 0.4 MG eCW1 ([facility]) Thiamine HCl 100 MG Thiamine HCl 100 MG 10/05/2020 12:00:00 AM EST 1.0 {tablet} active Thiamine HCl 100 MG eCW 1 ([facility]) Sulfamethoxazole 800 MG / Trimethoprim 1 60 MG Oral Tablet [Bactrim] Bactrim DS 800-160 MG Bactrim DS 800-160 MG 10/05/2020 12:00:00 AM EST 1.0 {table t} active Bactrim DS 800-160 MG eCW1 ( [facility]) Sulfamethoxazole 800 MG / Trimethoprim 1 60 MG Oral Tablet [Bactrim] Bactrim DS 800-160 MG Bactrim DS 800-160 MG 10/05/2020 12:00:00 AM EST 1.0 {table t} active Bactrim DS 800-160 MG eCW1 ( [facility]) Sulfamethoxazole 800 MG / Trimethoprim 1 60 MG Oral Tablet [Bactrim] Bactrim DS 800-160 MG Bactrim DS 800-160 MG 10/05/2020 12:00:00 AM EST 1.0 {table t} active Bactrim DS 800-160 MG eCW1 ( [facility]) Tamsulosin hydrochloride 0.4 MG Oral Capsule Tamsulosi n HCl 0.4 MG Tamsulosin HCl 0.4 MG 10/05/2020 12:00:00 AM EST 1.0 {capsule} active Tamsulosin HCl 0.4 MG eCW1 ([facility]) Tamsulosin hydrochloride 0.4 MG Oral Capsule Tamsulosi n HCl 0.4 MG Tamsulosin HCl 0.4 MG 10/05/2020 12:00:00 AM EST 1.0 {capsule} active Tamsulosin HCl 0.4 MG eCW1 ([facility]) Thiamine HCl 100 MG Thiamine HCl 100 MG 10/05/2020 12:00:00 AM EST 1.0 {tablet} active Thiamine HCl 100 MG eCW 1 ([facility]) Thiamine HCl 100 MG Thiamine HCl 100 MG 10/05/2020 12:00:00 AM EST 1.0 {tablet} active Thiamine HCl 100 MG eCW 1 ([facility]) ferrous sulfate 325 MG Oral Tablet Ferrous Sulfate 325 (65 Fe) MG Ferrous Sulfate 325 (65 Fe) MG 09/14/2020 12:00:00 AM EST 2.0 {tablets} active Ferrous Sulfate 325 (65 Fe) MG eCW1 ([facility]) ferrous sulfate 325 MG Oral Tablet Ferrous Sulfate 325 (65 Fe) MG Ferrous Sulfate 325 (65 Fe) MG 09/14/2020 12:00:00 AM EST 2.0 {tablets} active Ferrous Sulfate 325 (65 Fe) MG eCW1 ([facility]) ferrous sulfate 325 MG Oral Tablet Ferrous Sulfate 325 (65 Fe) MG Ferrous Sulfate 325 (65 Fe) MG 09/14/2020 12:00:00 AM EST 2.0 {tablets} active Ferrous Sulfate 325 (65 Fe) MG eCW1 ([facility]) ferrous sulfate 325 MG Oral Tablet Ferrous Sulfate 325 (65 Fe) MG Ferrous Sulfate 325 (65 Fe) MG 09/14/2020 12:00:00 AM EST 2.0 {tablets} active Ferrous Sulfate 325 (65 Fe) MG eCW1 ([facility]) ferrous sulfate 325 MG Oral Tablet Ferrous Sulfate 325 (65 Fe) MG Ferrous Sulfate 325 (65 Fe) MG 09/14/2020 12:00:00 AM EST 2.0 {tablets} active Ferrous Sulfate 325 (65 Fe) MG eCW1 ([facility]) FreeStyle Lite - FreeStyle Lite - 09/07/2020 12:00:00 AM EST active FreeStyle Lite - eCW1 ([facility]) FreeStyle Lite - FreeStyle Lite - 09/07/2020 12:00:00 AM EST active FreeStyle Lite - eCW1 ([facility]) FreeStyle Lite - FreeStyle Lite - 09/07/2020 12:00:00 AM EST active FreeStyle Lite - eCW1 ([facility]) FreeStyle Lancets - FreeStyle Lancets - 09/07/2020 12:00:00 AM EST active FreeStyle Lancets - eCW1 ([facility]) Sucralfate 100 MG/ML Oral Suspension Sucralfate 1 GM/10ML Lawler cralfate 1 GM/10ML 09/07/2020 12:00:00 AM EST 10.0 {ml_on_an_empty_stomach} active Sucralfate 1 GM/10ML eCW1 ([facility]) FreeStyle Lite - FreeStyle Lite - 09/07/2020 12:00:00 AM EST active FreeStyle Lite - eCW1 ([facility]) Omeprazole 40 MG Delayed Release Oral Capsule Omeprazole 40 MG 09/07/2020 12:00:00 AM EST active Omeprazo le 40 MG eCW1 ([facility]) Omeprazole 40 MG Delayed Release Oral Capsule Omeprazole 40 MG 09/07/2020 12:00:00 AM EST active Omeprazo le 40 MG eCW1 ([facility]) Sucralfate 100 MG/ML Oral Suspension Sucralfate 1 GM/10ML Lawler cralfate 1 GM/10ML 09/07/2020 12:00:00 AM EST 10.0 {ml_on_an_empty_stomach} active Sucralfate 1 GM/10ML eCW1 ([facility]) Blood Glucose Test Strip - UNK 09/07/2020 12:00:00 AM EST active Blood Glucose Test Strip - eCW1 ([facility]) FreeStyle Lancets - FreeStyle Lancets - 09/07/2020 12:00:00 AM EST active FreeStyle Lancets - eCW1 ([facility]) Omeprazole 40 MG Delayed Release Oral Capsule Omeprazole 40 MG 09/07/2020 12:00:00 AM EST active Omeprazo le 40 MG eCW1 ([facility]) FreeStyle Lancets - FreeStyle Lancets - 09/07/2020 12:00:00 AM EST active FreeStyle Lancets - eCW1 ([facility]) Blood Glucose Test Strip - UNK 09/07/2020 12:00:00 AM EST active Blood Glucose Test Strip - eCW1 ([facility]) Blood Glucose Test Strip - UNK 09/07/2020 12:00:00 AM EST active Blood Glucose Test Strip - eCW1 ([facility]) FreeStyle Lite - FreeStyle Lite - 09/07/2020 12:00:00 AM EST active FreeStyle Lite - eCW1 ([facility]) Blood Glucose Test Strip - UNK 09/07/2020 12:00:00 AM EST active Blood Glucose Test Strip - eCW1 ([facility]) Blood Glucose Test Strip - UNK 09/07/2020 12:00:00 AM EST active Blood Glucose Test Strip - eCW1 ([facility]) Omeprazole 40 MG Delayed Release Oral Capsule Omeprazole 40 MG 09/07/2020 12:00:00 AM EST active Omeprazo le 40 MG eCW1 ([facility]) Sucralfate 100 MG/ML Oral Suspension Sucralfate 1 GM/10ML Lawler cralfate 1 GM/10ML 09/07/2020 12:00:00 AM EST 10.0 {ml_on_an_empty_stomach} active Sucralfate 1 GM/10ML eCW1 ([facility]) Omeprazole 40 MG Delayed Release Oral Capsule Omeprazole 40 MG 09/07/2020 12:00:00 AM EST active Omeprazo le 40 MG eCW1 ([facility]) FreeStyle Lancets - FreeStyle Lancets - 09/07/2020 12:00:00 AM EST active FreeStyle Lancets - eCW1 ([facility]) FreeStyle Lite - FreeStyle Lite - 09/07/2020 12:00:00 AM EST active FreeStyle Lite - eCW1 ([facility]) FreeStyle Lancets - FreeStyle Lancets - 09/07/2020 12:00:00 AM EST active FreeStyle Lancets - eCW1 ([facility]) Omeprazole 40 MG Delayed Release Oral Capsule Omeprazole 40 MG 09/07/2020 12:00:00 AM EST active Omeprazo le 40 MG eCW1 ([facility]) Blood Glucose Test Strip - UNK 09/07/2020 12:00:00 AM EST active Blood Glucose Test Strip - eCW1 ([facility]) FreeStyle Lancets - FreeStyle Lancets - 09/07/2020 12:00:00 AM EST active FreeStyle Lancets - eCW1 ([facility]) Sucralfate 100 MG/ML Oral Suspension Suc ralfate 1 GM/10ML Oral Suspension (Carafate) Sucralfate 1 GM/10ML Oral Suspension (Carafate) 2019 12:00:00 AM EDT 1 g Oral active Marginal ulcer T rafa 10 mLs by mouth Four times daily [facility] Marginal ulcer pantoprazole 40 MG Delayed Release Oral Tablet Pantoprazole Sodium 40 MG Oral Tablet Delayed Release (PROTONIX) Pantoprazole Sodium 40 MG Oral Tablet De layed Release (PROTONIX) 05/13/2020 12:00:00 AM EDT 40 mg Oral active Marginal ulcer Take 1 tablet by mouth Two Times Daily [facility] Marginal ulcer Folic Acid 1 MG Oral Tablet Folic Acid 1 MG Oral Table t (FOLVITE) Folic Acid 1 MG Oral Tablet (FOLVITE) 03/28/2020 12:00:00 AM EDT 1 mg Oral active Take 1 tablet by mouth daily [facility] Amlodipine 10 MG Oral Tablet amLODIPine Besylate 10 MG Oral Tablet (NORVASC) amLODIPine Besylate 10 MG Oral Tablet (NORVASC) 03/28/2020 12:00:00 AM EDT 10 mg Oral active Take 1 tablet by mouth d [facility] Thiamine 100 MG Oral Tablet Thiamine HCl 100 MG Oral T ablet (B-1) Thiamine HCl 100 MG Oral Tablet (B-1) 03/28/2020 12:00:00 AM EDT 100 mg Oral active Take 1 tablet by mouth daily [facility] 24 HR Nicotine 0.875 MG/HR Transdermal P atch Nicotine 21 MG/24HR Transdermal Patch 24 Hour (NICODERM CQ) Nicotine 21 MG/24HR Transdermal Patch 24 Hour (NICODERM CQ) 03/28/2020 12:00:00 AM EDT 1 {patch} Transdermal active Place 1 patch onto the skin daily [facility] atorvastatin 20 MG Oral Tablet Atorvastatin Calcium 20 MG Oral Tablet (LIPITOR) Atorvastatin Calcium 20 MG Oral Tablet (LIPITOR) 03/28/2020 12:00:00 AM EDT 20 mg Oral active Take 1 tablet by mouth d [facility] Tab-A-Martin/Beta Carotene Oral Tablet [id number] 03/28/2020 12:00: 00 AM EDT 1 {tbl} Oral active Take 1 tablet by mouth d [facility] Lisinopril 40 MG Oral Tablet Lisinopril 40 MG Oral Tab let (ZESTRIL) Lisinopril 40 MG Oral Tablet (ZESTRIL) 03/28/2020 12:00:00 AM EDT 40 mg Oral active Take 1 tablet by mouth daily [facility] Hydralazine Hydrochloride 20 MG/ML Injec table Solution hydrALAZINE (APRESOLINE) injection 10 mg hydrALAZINE (APRESOLINE) injection 10 mg 03/27/2020 09 :00:00 AM EDT 10 mg Intravenous active 10 m g, Intravenous, Every 6 hours, First dose (after last modification) on Mon03/27/20 at 0900, For 11 doses
Dilute in 25-50 ml normal saline. Administer over 30 minutes.
Hold if SBP < [address]
[facility] Medication administered onsite Naloxone HCl 4 MG/0.1ML Nasal Liquid (Narcan) [id number] 12:00:00 AM EDT 4 mg Nasal active 1 spray by Nasal route once for [address] [facility] Sucralfate 1000 MG Oral Tablet Sucralfate 1 GM Oral Ta blet (CARAFATE) Sucralfate 1 GM Oral Tablet (CARAFATE) 03/27/2020 12:00:00 AM EDT 1 g Oral active Take 1 tablet by mouth Four times daily [facility] pantoprazole 40 MG Delayed Release Oral Tablet Pantoprazole Sodium 40 MG Oral Tablet Delayed Release (PROTONIX) Pantoprazole Sodium 40 MG Oral Tablet De layed Release (PROTONIX) 03/27/2020 12:00:00 AM EDT 40 mg Oral aborted Take 1 tablet by mouth Two Times Daily [facility] carvedilol 25 MG Oral Tablet Carvedilol 25 MG Oral Tab let (COREG) Carvedilol 25 MG Oral Tablet (COREG) 03/27/2020 12:00:00 AM EDT 25 mg Oral active Take 1 tablet by mouth Two times daily with meals [facility] insulin lispro (HumaLOG) injection LOW DOSE EATING INS ULIN patients 1-8 Units 33760-426-12 03/26/2020 06:00:00 PM EDT Subcutaneous active 1-8 Units, Subcutaneous, Three Times Daily-With Meals, First dose on Samara 03/26/20 at 1800, For 30 days
Nursing MUST open the 'SQ Insulin Dosing Charts' Sidebar Report, or, the Patient Summary or Summary Report within the ED.
[facility] Medication administered onsite iohexol (OMNIPAQUE) 300 MG/ML contrast injection 100 mL [id number] 03/26/2020 03:15:00 PM EDT 100 mL Given by IV completed 100 mL, Given by IV, 1 TIME IMAGING, [facility] 03/26/20 at 1515, For [address] [facility] Medication administered onsite barium (VOLUMEN) 0.1 % suspension 500 mL [id number] 03/26/2020 11 :15:00 AM EDT 500 mL Oral completed 500 mL, Or al, 1 TIME IMAGING, [facility] 03/26/20 at 1115, For [address] [facility] Medication administered onsite potassium chloride (K-DUR) dissolvable tablet 40 mEq [id number] 03/26/2020 07:45:00 AM EDT 40 meq Oral completed 40 mEq, Oral, Once, [facility] 03/26/20 at 0745, For 1 dose
May be dissolved in water for patients with a G-Tube or unable to swallow. If concern for clogging G-Tube, may contact Pharmacy to switch formulation to a powder packet.
[facility] Medication administered onsite Acetaminophen 325 MG Oral Tablet acetaminophen (TYLENO L) tablet 650 mg acetaminophen (TYLENOL) tablet 650 mg 03/25/2020 10:45:00 PM EDT 65 0 mg Oral completed 650 mg, Oral, O nce, 03/25/20 at 2245, For 1 dose
Maximum daily dose of acetaminophen is 3,000 mg from all sources in [address]
[facility] Medication administered onsite pantoprazole 40 MG Delayed Release Oral Tablet pantoprazole (PROTONIX) EC tablet 40 mg pantoprazole (PROTONIX) EC tablet 40 mg 03/25/2020 09:00:00 PM E DT 40 mg Oral active 40 mg, Ora l, 2 Times Daily, First dose on Mon03/25/20 at 2100, For 10 days
Do not crush or chew
[facility] Medication administered onsite Sucralfate 1000 MG Oral Tablet sucralfate (CARAFATE) t ablet 1 g sucralfate (CARAFATE) tablet 1 g 03/25/2020 05:00:00 PM EDT 1 g Oral active 1 g, Oral, Four Times Daily Standard, First dose on Mon03/25/20 at 1700, For [address] [facility] Medication administered onsite atorvastatin 20 MG Oral Tablet atorvastatin (LIPITOR) tablet 20 mg atorvastatin (LIPITOR) tablet 20 mg 03/25/2020 09:00:00 AM EDT 20 mg Oral active 20 mg, Oral, Daily Standard, First dose (after last modification) on Mon03/25/20 at 0900, For 7 days
Hazardous drug. Follow precautions. Dispose of properly.
[facility] Medication administered onsite potassium chloride (K-DUR) dissolvable tablet 40 mEq 37226-0 38-90 03/25/2020 06:00:00 AM EDT 40 meq Oral completed 40 mEq, Oral, Once, Mon03/25/20 at 0600, For 1 dose
May be dissolved in water for patients with a G-Tube or unable to swallow. If concern for clogging G-Tube, may contact Pharmacy to switch formulation to a powder packet.
[facility] Medication administered onsite POLYETHYLENE GLYCOL 3350 59 MG/ML / Pota ssium Chloride 0.01 MEQ/ML / Sodium Bicarbonate 0.02 MEQ/ML / Sodium Chloride 0.025 MEQ/ML / sodium sulfate 0.04 MEQ/ML Oral Solution polyethylene glycol (GoLYTELY,NuLYTELY) suspension 2,000 mL polyethylene glycol (GoLYTELY,NuLYTELY) suspension 2,0 00 mL 03/25/2020 04:00:00 AM EDT 2000 mL Oral completed 2,000 mL, Oral, Once, Mon03/25/20 at 0400, For [address] [facility] Medication administered onsite POLYETHYLENE GLYCOL 3350 59 MG/ML / Pota ssium Chloride 0.01 MEQ/ML / Sodium Bicarbonate 0.02 MEQ/ML / Sodium Chloride 0.025 MEQ/ML / sodium sulfate 0.04 MEQ/ML Oral Solution polyethylene glycol (GoLYTELY,NuLYTELY) suspension 2,000 mL polyethylene glycol (GoLYTELY,NuLYTELY) suspension 2,0 00 mL 03/24/2020 09:00:00 PM EDT 2000 mL Oral completed 2,000 mL, Oral, Once, Mon03/24/20 at 2100, For [address] [facility] Medication administered onsite gabapentin 300 MG Oral Capsule gabapentin (NEURONTIN) capsule 600 mg gabapentin (NEURONTIN) capsule 600 mg 03/24/2020 05:00:00 PM EDT 600 mg Oral active 600 mg, Oral, Three Times D aily Standard, First dose (after last modification) on Mon03/24/20 at 1700, For [address] [facility] Medication administered onsite Bisacodyl 5 MG Delayed Release Oral Tablet bisacodyl ( DULCOLAX) EC tablet 20 mg bisacodyl (DULCOLAX) EC tablet 20 mg 03/24/2020 04:00:00 PM EDT 20 mg Oral completed 20 mg, Oral, Onc e, Mon03/24/20 at 1600, For 1 dose
Do not crush or chew
[facility] Medication administered onsite Lisinopril 20 MG Oral Tablet lisinopril (ZESTRIL) tabl et 40 mg lisinopril (ZESTRIL) tablet 40 mg 03/24/2020 09:00:00 AM EDT 40 mg Oral active 40 mg, Oral, Daily Standard, First dose on Mon03/24/20 at 0900, For [address] [facility] Medication administered onsite Hydralazine Hydrochloride 20 MG/ML Injec table Solution hydrALAZINE (APRESOLINE) injection 10 mg hydrALAZINE (APRESOLINE) injection 10 mg 03/24/2020 09 :00:00 AM EDT 10 mg Intravenous aborted 10 m g, Intravenous, Three Times Daily Standard, First dose on Mon03/24/20 at 0900, For 5 days
Dilute in 25-50 ml normal saline. Administer over [address]
[facility] Medication administered onsite Hydralazine Hydrochloride 20 MG/ML Injec table Solution hydrALAZINE (APRESOLINE) injection 10 mg hydrALAZINE (APRESOLINE) injection 10 mg 03/24/2020 09 :00:00 AM EDT 10 mg Intravenous aborted 10 m g, Intravenous, Every 6 hours, First dose (after last reorder) on Mon03/24/20 at 0900, For 2 days
Dilute in 25-50 ml normal saline. Administer over 30 minutes.
Hold if SBP < [address]
[facility] Medication administered onsite Amlodipine 5 MG Oral Tablet amlodipine (NORVASC) table t 10 mg amlodipine (NORVASC) tablet 10 mg 03/24/2020 09:00:00 AM EDT 10 mg Oral active 10 mg, Oral, Daily Standard, First dose on Mon03/24/20 at 0900, For 30 days
Check vital signs before administering
[facility] Medication administered onsite potassium chloride (K-DUR) dissolvable tablet 40 mEq 12215-7 38-90 03/24/2020 08:00:00 AM EDT 40 meq Oral completed 40 mEq, Oral, Once, Mon03/24/20 at 0800, For 1 dose
May be dissolved in water for patients with a G-Tube or unable to swallow. If concern for clogging G-Tube, may contact Pharmacy to switch formulation to a powder packet.
[facility] Medication administered onsite Potassium Chloride 0.1 MEQ/ML Injectable Solution potassium chloride 10 mEq in 100 mL IVPB (premix) potassium chloride 10 mEq in 100 mL IVPB (premix) 03/24/2020 05:00:00 AM EDT 10 meq Intravenous aborted 10 mEq, Intravenous, Administer over 60 Minutes, Every 1 hour, First dose on Mon03/24/20 at 0500, For [address] [facility] Medication administered onsite potassium chloride (K-DUR) dissolvable tablet 40 mEq 84961-5 38-90 03/24/2020 04:45:00 AM EDT 40 meq Oral completed 40 mEq, Oral, Once, Mon03/24/20 at 0445, For 1 dose
May be dissolved in water for patients with a G-Tube or unable to swallow. If concern for clogging G-Tube, may contact Pharmacy to switch formulation to a powder packet.
[facility] Medication administered onsite Insulin Lispro 100 UNT/ML [...] than 400 mg/dL - notify the provider.
[facility] Medication administered onsite Lisinopril 10 MG Oral Tablet lisinopril (ZESTRIL) tabl et 20 mg lisinopril (ZESTRIL) tablet 20 mg 03/23/2020 09:00:00 PM EDT 20 mg Oral completed 20 mg, Oral, 2 Times Daily, First dose ( after last modification) on Mon03/23/20 at 2100, For 1 dose
Check vital signs before administering
[facility] Medication administered onsite 24 HR Nicotine 0.875 MG/HR Transdermal P atch nicotine (NICODERM CQ) 21 MG/24HR 1 patch nicotine (NICODERM CQ) 21 MG/24HR 1 patch 03/23/2020 08:45:00 PM EDT 1 {patch} Transdermal active 1 patch, Transdermal, Administer over 24 Hours, Daily Standard, First dose on Mon03/23/20 at 2045, For [address] [facility] Medication administered onsite Bisacodyl 5 MG Delayed Release Oral Tablet bisacodyl ( DULCOLAX) EC tablet 20 mg bisacodyl (DULCOLAX) EC tablet 20 mg 03/23/2020 04:00:00 PM EDT 20 mg Oral completed 20 mg, Oral, Onc e, Mon03/23/20 at 1600, For 1 dose
Do not crush or chew
[facility] Medication administered onsite Hydralazine Hydrochloride 20 MG/ML Injec table Solution hydrALAZINE (APRESOLINE) injection 10 mg hydrALAZINE (APRESOLINE) injection 10 mg 03/23/2020 03 :30:00 PM EDT 10 mg Intravenous completed 10 mg, Intravenous, Once, Mon03/23/20 at 1530, For 1 dose
Dilute in 25-50 ml normal saline. Administer over [address]
[facility] Medication administered onsite 1 ML Lorazepam 2 MG/ML Injection LORazepam (ATIVAN) in jection 2 mg LORazepam (ATIVAN) injection 2 mg 03/23/2020 03:30:00 PM EDT 2 mg Intraveno us completed 2 mg, Intravenous, Once, 03/11 at 1530, For [address] [facility] Medication administered onsite insulin lispro (HUMALOG) injection LOW D OSE CLEAR LIQUID INSULIN patients 1-8 Units [id number] 03/23/2020 11:30:00 AM EDT Subcutaneous aborted 1-8 Units, Subcutaneous, Before Meals - Three Times Daily, First dose on Mon03/23/20 at 1130, For 30 days
Nursing MUST open the 'SQ Insulin Dosing Charts' Sidebar Report, or, the Patient Summary or Summary Report within the ED.
[facility] Medication administered onsite pantoprazole 4 MG/ML Injectable Solution pantoprazole (PROTONIX) injection 40 mg pantoprazole (PROTONIX) injection 40 mg 03/23/2020 09:00:00 AM EDT 40 mg Intravenous aborted 40 mg, Intrav enous, Daily Standard, First dose on Mon03/23/20 at 0900, For [address] [facility] Medication administered onsite 4 ML Labetalol hydrochloride 5 MG/ML Car tridge labetalol (TRANDATE) injection 10 mg labetalol (TRANDATE) injection 10 mg 03/23/2020 08:15:41 AM EDT 10 mg Intravenous aborted 10 mg, Intrav enous, Every 6 hours PRN, High Blood Pressure, systolic BP greater than 170, Starting Mon03/23/20 at 0815, For [address] [facility] Medication administered onsite insulin lispro (HumaLOG) injection LOW DOSE EATING INS ULIN patients 1-8 Units [id number] 03/22/2020 06:00:00 PM EDT Subcutaneous aborted 1-8 Units, Subcutaneous, Three Times Daily-With Meals, First dose on Mon03/22/20 at 1800, For 30 days
Nursing MUST open the 'SQ Insulin Dosing Charts' Sidebar Report, or, the Patient Summary or Summary Report within the ED.
[facility] Medication administered onsite dextrose 50 % IV solution 25 mL [id number] 03/22/2020 03:36:45 PM E DT 25 mL Intravenous active 25 mL, Intrav enous, PRN, Other, blood glucose <55, Starting 03/22/20 at 1536, For 30 days
Not for midline administration.
[facility] Medication administered onsite Glucagon 1 MG Injection glucagon (human recombinant) ( GLUCAGEN) injection 1 mg glucagon (human recombinant) (GLUCAGEN) injection 1 mg 03/22/2020 03:36:45 PM EDT 1 mg Intramuscular active 1 mg, Intramuscular, PRN, for glucose <55 without IV access, Starting 03/22/20 at 1536, For [address] [facility] Medication administered onsite Glucose 0.417 MG/MG Oral Gel glucose (GLUTOSE) 40 % or al gel 15 g glucose (GLUTOSE) 40 % oral gel 15 g 03/22/2020 03:36:45 PM EDT 15 g Oral active 15 g, Oral, PRN, Low blood s ugar, for gluose 55-69 mg/dl and able to take PO, Starting 03/22/20 at 1536, For [address] [facility] Medication administered onsite Folic Acid 1 MG Oral Tablet folic acid (FOLVITE) table t 1 mg folic acid (FOLVITE) tablet 1 mg 03/22/2020 02:15:00 PM EDT 1 mg Oral active 1 mg, Oral, Daily Standard, First dose on 03/22/20 at 1415, For [address] [facility] Medication administered onsite multivitamin tablet 1 tablet [id number] 03/22/2020 02:15:00 PM EDT 1 {tbl} Oral active 1 tablet, Oral , Daily Standard, First dose on 03/22/20 at 1415, For [address] [facility] Medication administered onsite Thiamine 100 MG Oral Tablet thiamine (B-1) tablet 100 mg thiamine (B-1) tablet 100 mg 03/22/2020 02:15:00 PM EDT 100 mg Oral active 100 mg, Oral, Daily Standard, First dose on 03/22/20 at 1415, For [address] [facility] Medication administered onsite Lorazepam 1 MG Oral Tablet LORazepam (ATIVAN) tablet 1 mg LORazepam (ATIVAN) tablet 1 mg 03/22/2020 02:10:13 PM EDT 1 mg Oral aborte d 1 mg, Oral, Every 4 hours PRN, Anxiety, Starting 03/22/20 at 1410, For [address] [facility] Medication administered onsite Naltrexone hydrochloride 50 MG Oral Tablet naltrexone (DEPADE) tablet 50 mg naltrexone (DEPADE) tablet 50 mg 03/22/2020 10:45:00 AM EDT 50 mg Oral active 50 mg, Oral, Daily Standard, First dose on 03/22/20 at 1045, For [address] [facility] Medication administered onsite DULoxetine (CYMBALTA) DR capsule 90 mg 03/22/2020 10:45:00 AM EDT 90 mg Oral active 90 mg, Oral, D aily Standard, First dose on 03/22/20 at 1045, For 30 days
Do not crush or chew
[facility] Medication administered onsite Ceftriaxone 1000 MG Injection cefTRIAXone (ROCEPHIN) i nfusion 1 g (premix) cefTRIAXone (ROCEPHIN) infusion 1 g (premix) 03/21/2020 10:30:00 PM EDT 1 g Intravenous aborted 1 g, Intraven ous, at 100 mL/hr, Every 24 hours, First dose (after last modification) on 03/21/20 at 2230, For 4 doses
Discouraged Uses: Empiric treatment of post-surgical meningitis (ceftazidime preferred)
[facility] Medication administered onsite pantoprazole (PROTONIX) 0.4 mg/mL in sodium chloride 0.9 % 2 50 mL infusion 03/21/2020 09:30:00 PM EDT 8 mg/h Intravenous aborted 8 mg/hr (20 mL/hr), Intravenous, at 20 mL/hr, Continuous, Starting 03/21/20 at 2130, For 19 hours
Indication: Active GI bleed [facility] Medication administered onsite TC-99M labeled red blood cells (ULTRATAG) 03/21/2020 04:00 :00 PM EDT Intravenous completed Intravenous, Once, 03/21/20 at 1600, For 1 dose, Imaging Protocol [facility] Medication administered onsite pantoprazole (PROTONIX) 0.4 mg/mL in sodium chloride 0.9 % 2 50 mL infusion 03/21/2020 02:00:00 PM EDT 8 mg/h Intravenous aborted 8 mg/hr (20 mL/hr), Intravenous, at 20 mL/hr, Continuous, Starting 03/21/20 at 1400, For 30 days
Indication: Active GI bleed [facility] Medication administered onsite atorvastatin 20 MG Oral Tablet atorvastatin (LIPITOR) tablet 20 mg atorvastatin (LIPITOR) tablet 20 mg 03/21/2020 09:00:00 AM EDT 20 mg Oral aborted 20 mg, Oral, Daily Standard, First dose on 03/21/20 at 0900, For 5 days
Hazardous drug. Follow precautions. Dispose of properly.
[facility] Medication administered onsite carvedilol 25 MG Oral Tablet carvedilol (COREG) tablet 25 mg carvedilol (COREG) tablet 25 mg 03/21/2020 09:00:00 AM EDT 25 mg Oral activ e 25 mg, Oral, 2 Times Daily With Meals, First dose on 03/21/20 at 0900, For 30 days
Check vital signs before administering
[facility] Medication administered onsite gabapentin 300 MG Oral Capsule gabapentin (NEURONTIN) capsule 600 mg gabapentin (NEURONTIN) capsule 600 mg 03/21/2020 09:00:00 AM EDT 600 mg Oral aborted 600 mg, Oral, Three Times D aily Standard, First dose on 03/21/20 at 0900, For [address] [facility] Medication administered onsite iohexol (OMNIPAQUE) 300 MG/ML contrast injection 100 mL [id number] 03/21/2020 06:00:00 AM EDT 100 mL Given by IV completed 100 mL, Given by IV, 1 TIME IMAGING, 03/21/20 at 0600, For [address] [facility] Medication administered onsite Lorazepam 1 MG Oral [...] the CIWA score. Assess once patient awakens.
[facility] Medication administered onsite iohexol (OMNIPAQUE) 240 MG/ML contrast 20 mL [id number] 06/2020 11:53:33 PM EDT 20 mL Oral completed 20 mL, Oral, O nce PRN, Contrast, Per Protocol, Starting Mon03/20/20 at 2353, For 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 Use "Contrast dose chart" link for dosing guidelines.
[facility] Medication administered onsite iohexol (OMNIPAQUE) 240 MG/ML contrast 20 mL [id number] 06/2020 11:53:33 PM EDT 20 mL Oral completed 20 mL, Oral, O nce PRN, Contrast, Per Protocol, Starting Mon03/20/20 at 2353, For [address] to tell RN administration time of first dose. Dilute in 500 mL liquid x1 Now per protocol. Use "Contrast dose chart" link for dosing guidelines.
[facility] Medication administered onsite pantoprazole 4 MG/ML Injectable Solution pantoprazole (PROTONIX) injection 40 mg pantoprazole (PROTONIX) injection 40 mg 03/20/2020 11:45:00 PM EDT 40 mg Intravenous aborted 40 mg, Intrav enous, 2 Times Daily, First dose on Mon03/20/20 at 2345, For [address] [facility] Medication administered onsite Lisinopril 20 MG Oral Tablet lisinopril (ZESTRIL) tabl et 20 mg lisinopril (ZESTRIL) tablet 20 mg 03/20/2020 10:45:00 PM EDT 20 mg Oral aborted 20 mg, Oral, 2 Times Daily, First dose (after last modification) on Mon03/20/20 at 2245, For 30 days
Check vital signs before administering
[facility] Medication administered onsite Ceftriaxone 2000 MG Injection cefTRIAXone (ROCEPHIN) I VPB (premix) 2 g cefTRIAXone (ROCEPHIN) IVPB (premix) 2 g 03/20/2020 10:30:00 PM EDT 2 g Intravenous aborted 2 g, Intraven ous, at 100 mL/hr, Every 24 hours, First dose on Mon03/20/20 at 2230, For 5 days
Discouraged Uses: Empiric treatment of post-surgical meningitis (ceftazidime preferred)
[facility] Medication administered onsite Calcium Chloride 0.0014 MEQ/ML / Potassi um Chloride 0.004 MEQ/ML / Sodium Chloride 0.103 MEQ/ML / Sodium Lactate 0.028 MEQ/ML Injectable Solution lactated ringers infusion lactated ringers infusion 03/20/2020 10:15:00 PM EDT 200 mL/h Intravenous aborted at 200 m L/hr, Intravenous, Continuous, Starting Mon03/20/20 at 2215, For [address] [facility] Medication administered onsite Cyclobenzaprine hydrochloride 10 MG Oral Tablet cyclobenzaprine (FLEXERIL) tablet 10 mg cyclobenzaprine (FLEXERIL) tablet 10 mg 03/20/2020 10:05:35 PM EDT 10 mg Oral active 10 mg, Oral, Thr ee Times Daily-PRN, Muscle spasms, Starting Mon03/20/20 at 2205, For [address] [facility] Medication administered onsite Tamsulosin hydrochloride 0.4 MG Oral Capsule [Flomax] Flomax 0.4 MG Flomax 0.4 MG 11/14/2019 12:00:00 AM EST active 1 capsule eCW1 ([facility]) Tamsulosin hydrochloride 0.4 MG Oral Capsule [Flomax] Flomax 0.4 MG Flomax 0.4 MG 11/14/2019 12:00:00 AM EST active 1 capsule eCW1 ([facility]) sildenafil 25 MG Oral Tablet [Viagra] Viagra 25 MG Viagra 25 MG 11/13/2019 12:00:00 AM EST active 1 tablet as needed eCW1 ([facility]) sildenafil 25 MG Oral Tablet [Viagra] Viagra 25 MG Viagra 25 MG 11/13/2019 12:00:00 AM EST active 1 tablet as needed eCW1 ([facility]) sildenafil 25 MG Oral Tablet [Viagra] Viagra 25 MG Viagra 25 MG 11/13/2019 12:00:00 AM EST active 1 tablet as needed eCW1 ([facility]) Magnesium Hydroxide 80 MG/ML Oral Suspension Milk Of Ovidio a 10/28/2019 12:00:00 AM EST ORAL active M EDENT ([facility], ) POLYETHYLENE GLYCOL 3350 105 MG/ML / Pot assium Chloride 0.19904 MEQ/ML / Sodium Bicarbonate 0.017 MEQ/ML / Sodium Chloride 0.0479 MEQ/ML Oral Solution [TriLyte] Trilyte 10/28/2019 12:00:00 AM EST active MEDENT ([facility], ) Amlodipine 5 MG Oral Tablet AmLODIPine Besylate 5 MG AmLODIP ine Besylate 5 MG 10/24/2019 12:00:00 AM EST active 1 tablet eCW1 ([facility]) Cephalexin 250 MG Oral Capsule [Keflex] Keflex 250 MG Keflex 250 MG 10/24/2019 12:00:00 AM EST active 1 capsul e eCW1 ([facility]) gabapentin 600 MG Oral Tablet Gabapentin 10/23/2019 12:00:00 AM EST active MEDENT ([facility]) May Have - UNK 09/20/2019 12:00:00 AM EST active May Have - eCW1 ([facility]) Fluoxetine 60 MG Oral Tablet FLUoxetine HCl 60 MG FLUoxetine HCl 60 MG 09/20/2019 12:00:00 AM EST active 1 tablet eCW1 ([facility]) Fluoxetine 60 MG Oral Tablet FLUoxetine HCl 60 MG FLUoxetine HCl 60 MG 09/20/2019 12:00:00 AM EST 1.0 {tablet} active FLUoxetine HCl 60 MG eCW1 ([facility]) Nystatin 127928 UNT/ML / Triamcinolone A cetonide 1 MG/ML Topical Cream Nystatin- Triamcinolone 227859-1.1 UNIT/GM Nystatin-Triamcinolone 193698-9.1 UNIT/GM 09/20/2019 12:00:00 AM EST 1.0 {application} act jack Nystatin- Triamcinolone 344329-0.1 UNIT/GM eCW1 ([facility]) Fluoxetine 60 MG Oral Tablet FLUoxetine HCl 60 MG FLUoxetine HCl 60 MG 09/20/2019 12:00:00 AM EST active 1 tablet eCW1 ([facility]) Fluoxetine 60 MG Oral Tablet FLUoxetine HCl 60 MG FLUoxetine HCl 60 MG 09/20/2019 12:00:00 AM EST 1.0 {tablet} active FLUoxetine HCl 60 MG eCW1 ([facility]) Fluoxetine 60 MG Oral Tablet FLUoxetine HCl 60 MG FLUoxetine HCl 60 MG 09/20/2019 12:00:00 AM EST 1.0 {tablet} active FLUoxetine HCl 60 MG eCW1 ([facility]) Nystatin 354437 UNT/ML / Triamcinolone A cetonide 1 MG/ML Topical Cream Nystatin- Triamcinolone 107612-6.1 UNIT/GM Nystatin-Triamcinolone 568405-3.1 UNIT/GM 09/20/2019 12:00:00 AM EST 1.0 {application} act jack Nystatin- Triamcinolone 232818-9.1 UNIT/GM eCW1 ([facility]) May Have - UNK 09/20/2019 12:00:00 AM EST active May Have - eCW1 ([facility]) Fluoxetine 60 MG Oral Tablet FLUoxetine HCl 60 MG FLUoxetine HCl 60 MG 09/20/2019 12:00:00 AM EST 1.0 {tablet} active FLUoxetine HCl 60 MG eCW1 ([facility]) Nystatin 412210 UNT/ML / Triamcinolone A cetonide 1 MG/ML Topical Cream Nystatin- Triamcinolone 615990-4.1 UNIT/GM Nystatin-Triamcinolone 721687-4.1 UNIT/GM 09/20/2019 12:00:00 AM EST active 1 application eCW1 ([facility]) May Have - UNK 09/20/2019 12:00:00 AM EST active cane eCW1 ([facility]) May Have - UNK 09/20/2019 12:00:00 AM EST active May Have - eCW1 ([facility]) Fluoxetine 60 MG Oral Tablet FLUoxetine HCl 60 MG FLUoxetine HCl 60 MG 09/20/2019 12:00:00 AM EST active 1 tablet eCW1 ([facility]) May Have - UNK 09/20/2019 12:00:00 AM EST active May Have - eCW1 ([facility]) Nicotine 2 MG Oral Lozenge Nicotine Polacrilex 2 MG Nicotine Polacrilex 2 MG 09/20/2019 12:00:00 AM EST active 1 lozenge as needed eCW1 ([facility]) May Have - UNK 09/20/2019 12:00:00 AM EST active May Have - eCW1 ([facility]) May Have - UNK 09/20/2019 12:00:00 AM EST active May Have - eCW1 ([facility]) Nystatin 271548 UNT/ML / Triamcinolone A cetonide 1 MG/ML Topical Cream Nystatin- Triamcinolone 579858-4.1 UNIT/GM Nystatin-Triamcinolone 310359-7.1 UNIT/GM 09/20/2019 12:00:00 AM EST 1.0 {application} act jack Nystatin- Triamcinolone 059414-8.1 UNIT/GM eCW1 ([facility]) May Have - UNK 09/20/2019 12:00:00 AM EST active May Have - eCW1 ([facility]) Nystatin 232537 UNT/ML / Triamcinolone A cetonide 1 MG/ML Topical Cream Nystatin- Triamcinolone 942713-1.1 UNIT/GM Nystatin-Triamcinolone 649267-8.1 UNIT/GM 09/20/2019 12:00:00 AM EST active 1 application eCW1 ([facility]) Fluoxetine 60 MG Oral Tablet FLUoxetine HCl 60 MG FLUoxetine HCl 60 MG 09/20/2019 12:00:00 AM EST active 1 tablet eCW1 ([facility]) Nystatin 898612 UNT/ML / Triamcinolone A cetonide 1 MG/ML Topical Cream Nystatin- Triamcinolone 443831-3.1 UNIT/GM Nystatin-Triamcinolone 021322-8.1 UNIT/GM 09/20/2019 12:00:00 AM EST active 1 application eCW1 ([facility]) May Have - UNK 09/20/2019 12:00:00 AM EST active May Have - eCW1 ([facility]) Fluoxetine 60 MG Oral Tablet FLUoxetine HCl 60 MG FLUoxetine HCl 60 MG 09/20/2019 12:00:00 AM EST 1.0 {tablet} active FLUoxetine HCl 60 MG eCW1 ([facility]) One touch ultra blue _ UNK 09/20/2019 12:00:00 AM EST active 1 bottle of test solution eCW1 ([facility]) May Have - UNK 09/20/2019 12:00:00 AM EST active cane eCW1 ([facility]) May Have - UNK 09/20/2019 12:00:00 AM EST active May Have - eCW1 ([facility]) Nystatin 106631 UNT/ML / Triamcinolone A cetonide 1 MG/ML Topical Cream Nystatin- Triamcinolone 089477-6.1 UNIT/GM Nystatin-Triamcinolone 527148-3.1 UNIT/GM 09/20/2019 12:00:00 AM EST 1.0 {application} act jack Nystatin- Triamcinolone 034748-1.1 UNIT/GM eCW1 ([facility]) Nystatin 808449 UNT/ML / Triamcinolone A cetonide 1 MG/ML Topical Cream Nystatin- Triamcinolone 652346-6.1 UNIT/GM Nystatin-Triamcinolone 572297-2.1 UNIT/GM 09/20/2019 12:00:00 AM EST 1.0 {application} act jack Nystatin- Triamcinolone 053042-6.1 UNIT/GM eCW1 ([facility]) Fluoxetine 60 MG Oral Tablet FLUoxetine HCl 60 MG FLUoxetine HCl 60 MG 09/20/2019 12:00:00 AM EST 1.0 {tablet} active FLUoxetine HCl 60 MG eCW1 ([facility]) Fluoxetine 60 MG Oral Tablet FLUoxetine HCl 60 MG FLUoxetine HCl 60 MG 09/20/2019 12:00:00 AM EST 1.0 {tablet} active FLUoxetine HCl 60 MG eCW1 ([facility]) Fluoxetine 60 MG Oral Tablet FLUoxetine HCl 60 MG FLUoxetine HCl 60 MG 09/20/2019 12:00:00 AM EST 1.0 {tablet} active FLUoxetine HCl 60 MG eCW1 ([facility]) May Have - UNK 09/20/2019 12:00:00 AM EST active cane eCW1 ([facility]) Nystatin 112672 UNT/ML / Triamcinolone A cetonide 1 MG/ML Topical Cream Nystatin- Triamcinolone 765058-5.1 UNIT/GM Nystatin-Triamcinolone 700899-1.1 UNIT/GM 09/20/2019 12:00:00 AM EST 1.0 {application} act jack Nystatin- Triamcinolone 561178-3.1 UNIT/GM eCW1 ([facility]) May Have - UNK 09/20/2019 12:00:00 AM EST active May Have - eCW1 ([facility]) May Have - UNK 09/20/2019 12:00:00 AM EST active May Have - eCW1 ([facility]) May Have - UNK 09/20/2019 12:00:00 AM EST active May Have - eCW1 ([facility]) Nystatin 398772 UNT/ML / Triamcinolone A cetonide 1 MG/ML Topical Cream Nystatin- Triamcinolone 280688-5.1 UNIT/GM Nystatin-Triamcinolone 869732-5.1 UNIT/GM 09/20/2019 12:00:00 AM EST active 1 application eCW1 ([facility]) Nicotine 2 MG Oral Lozenge Nicotine Polacrilex 2 MG Nicotine Polacrilex 2 MG 09/20/2019 12:00:00 AM EST active 1 lozenge as needed eCW1 ([facility]) May Have - UNK 09/20/2019 12:00:00 AM EST active cane eCW1 ([facility]) Fluoxetine 60 MG Oral Tablet FLUoxetine HCl 60 MG FLUoxetine HCl 60 MG 09/20/2019 12:00:00 AM EST 1.0 {tablet} active FLUoxetine HCl 60 MG eCW1 ([facility]) Ibuprofen 600 MG Oral Tablet ibuprofen (ADVIL,MOTRIN) 600 MG tablet ibuprofen (ADVIL,MOTRIN) 600 MG tablet 12/09/2015 12:00:00 AM EDT [facility] Mirtazapine 15 MG Oral Tablet mirtazapine (REMERON) 15 MG tablet mirtazapine (REMERON) 15 MG tablet 11/19/2015 12:00:00 AM EST [facility] terbinafine 250 MG Oral Tablet terbinafine (LAMISIL) 2 50 MG tablet terbinafine (LAMISIL) 250 MG tablet 11/18/2015 12:00:[address] [facility] atorvastatin 20 MG Oral Tablet atorvastatin (LIPITOR) 20 MG tablet atorvastatin (LIPITOR) 20 MG tablet 10/06/2015 12:00:[address] [facility] tramadol hydrochloride 50 MG Oral Tablet traMADol HCl 50 MG Oral Tablet (ULTRAM) traMADol HCl 50 MG Oral Tablet (ULTRAM) 50 mg Oral aborted Take 50 mg by mouth every 6 (six) hours as needed for Pain [facility] Lisinopril 20 MG Oral Tablet lisinopril (PRINIVIL,ZEST RIL) 20 MG tablet lisinopril (PRINIVIL,ZESTRIL) 20 MG tablet 20 mg Oral aborted Take [address] [facility] Atenolol 50 MG Oral Tablet Atenolol 50 MG Oral Tablet (TENORMIN) Atenolol 50 MG Oral Tablet (TENORMIN) 75 mg Oral aborted T rafa [address] [facility] Esomeprazole 40 MG Delayed Release Oral Capsule Esomeprazole Magnesium 40 MG Oral Capsule Delayed Release (NEXIUM) Esomeprazole Magnesium 40 MG Oral Capsul e Delayed Release (NEXIUM) 40 mg Oral aborted Take [address] [facility] Metformin hydrochloride 1000 MG Oral Tab let metformin (GLUCOPHAGE) 1000 MG tablet metformin (GLUCOPHAGE) 1000 MG tablet 1000 mg Oral aborted Take 1,000 mg by mouth Two times daily with meals. [facility] carvedilol 25 MG Oral Tablet carvedilol (COREG) 25 MG tablet carvedilol (COREG) 25 MG tablet 25 mg Oral aborted Juan Francisco e 25 mg by mouth Two times daily with meals. [facility] Omeprazole 20 MG Delayed Release Oral Ca psule omeprazole (PRILOSEC) 20 MG capsule omeprazole (PRILOSEC) 20 MG capsule 20 mg Oral aborted Take 20 mg by mouth Two times daily before meals. [facility] Insurance Providers Payer name Policy type / Coverage type Policy ID Covered democrat ID Covered democrat's relationship to glaser Policy Glaser Plan Information HUMANA GOLD [id number] SP [id number] EMEDNY [id number] SP [id number] HUMANA GOLD [id number] SP [id number] HUMANA MEDICARE ADVANTAGE G [id number] Self [id number] MEDICAID M [id number] Self [id number] HUMANA GOLD [id number] SP [id number] HUMANA GOLD O [id number] S [id number] MEDICAID M [id number] S [id number] MEDICARE [id number] SP [id number] MEDICARE [id number] SP [id number] A [employer] P [id number] S [id number] Medicaid S [id number] S [id number] [employer] MEDICARE ADVANTAGE G [id number] Self [id number] MEDICARE A [id number] Self [id number] A MEDICAID [id number] SP [id number] Medicare S [id number] S [id number] MEDICARE [id number] Other [id number] MEDICARE [id number] S [id number] MEDICARE [id number] Other [id number] A ANSI-Medicare Part B [id number] ANSI-Medicaid [id number] ANSI-Medicare Part B [id number] ANSI-Medicaid [id number] ANSI-Medicare Part B [id number] ANSI-Medicaid [id number] [place] [id number] Self [id number] [place] [id number] Self [id number] Medicare [facility] Medicare Primary [id number] Self [id number] ANSI-Medicare Part B [id number] ANSI-Medicaid [id number] ANSI-Medicare Part B [id number] ANSI-Medicaid [id number] ANSI-Medicare Part B [id number] ANSI-Medicaid [id number] [facility] [id number] Self [id number] [place] [id number] Self CD3 [id number] Medicare [facility] Medicare Primary [id number] Self [id number] ANSI-Medicaid [id number] ANSI-Medicare Part B [id number] [place] [id number] Self [id number] [facility] [id number] Self CD3 [id number] [id number] Self [id number] ANS-Medicare Part B [id number] ANSI-Medicaid [id number] [facility] [id number] Self CD3 [id number] Medicaid [facility] [id number] Self CD3 [id number] [place] [id number] Self [id number] ANS-Medicaid [id number] ANS-Medicare Part B [id number] Medicaid [facility] [id number] Self [id number] Medicaid [facility] [id number] Self [id number] [place] [id number] Self [id number] ANSI-Medicaid [id number] ANS-Medicare Part B [id number] ANSI-Medicaid [id number] ANS-Medicare Part B [id number] ANSI-Medicaid [id number] ANSI-Medicare Part B [id number] ANSI-Medicaid [id number] ANSI-Medicare Part B [id number] ANSI-Medicare Part B [id number] ANSI-Medicaid [id number] ANSI-Medicare Part B [id number] ANSI-Medicaid [id number] ANSI-Medicaid [id number] ANSI-Medicare Part B [id number] Medicaid [facility] Part B [id number] Self [id number] Medicaid [facility] Part B [id number] Self CD3 [id number] [place] Primary [id number] Self [id number] ANSI-Medicare Part B [id number] ANSI-Medicaid [id number] Medicaid [facility] Part B [id number] Self [id number] Medicaid [facility] Part B [id number] Self CD3 [id number] [place] Primary [id number] Self [id number] ANSI-Medicare Part B [id number] ANSI-Medicaid [id number] ANSI-Medicare Part B [id number] ANSI-Medicaid [id number] ANSI-Medicare Part B [id number] ANSI-Medicaid [id number] ANSI-Medicare Part B [id number] ANSI-Medicaid [id number] ANSI-Medicare Part B [id number] ANSI-Medicaid [id number] ANSI-Medicaid [id number] ANSI-Medicare Part B [id number] ANSI-Medicaid [id number] ANSI-Medicare Part B [id number] ANSI-Medicaid [id number] ANSI-Medicare Part B [id number] [place] [id number] Self CD3 [id number] [place] [id number] Self CD3 [id number] [place] [id number] Self [id number] ANSI-Medicare Part B [id number] ANSI-Medicaid [id number] [place] [id number] Self CD3 [id number] [place] Medicare Primary [id number] Self [id number] MEDICARE [id number] SP [id number] A Medicaid [place] [id number] Self [id number] [place] [id number] Self [id number] [place] Primary [id number] Self [id number] [place] [id number] Self CD3 [id number] [place]ig[place] [id number] Self CD3 [id number] [place] Primary [id number] Self [id number] [place] Med[place] Part [place] [id number] Self CD3 [id number] Medicare [facility] Medicare Primary [id number] Self [id number] MEDICAID [id number] [place] [id number] Self CD3 [id number] [place]ig[place] [id number] Self CD3 [id number] [place] Primary [id number] Self [id number] MEDICARE C [id number] S [id number] [place] [id number] Self CD3 [id number] [place]ig[place] [id number] Self CD3 [id number] [place] Primary [id number] Self [id number] MEDICAID M [id number] Self [id number] [place] [id number] Self CD3 [id number] [place] [id number] Self CD3 [id number] Medicare [facility] Medicare Primary [id number] Self [id number] [place] [id number] Self CD3 [id number] [place]ig[place] [id number] Self CD3 [id number] Medicare [facility] Medicare Primary [id number] Self [id number] [place] [id number] Self CD3 [id number] [place]ig[place] [id number] Self CD3 [id number] Medicare [facility] Medicare Primary [id number] Self [id number] [place] Med[place] [id number] Self CD3 [id number] Medicare Primary [id number] Self [id number] [place] [id number] Self CD3 [id number] Medicare Primary [id number] Self [id number] [place] [id number] Self CD3 [id number] [place] Medicare Primary [id number] Self [id number] [place] [id number] Self CD3 [id number] [place] [id number] Self CD3 [id number] Medicare [facility] Medicare Primary [id number] Self [id number] [place]ig[place] [id number] Self CD3 [id number] [place] [id number] Self CD3 [id number] Medicare [facility] Medicare Primary [id number] Self [id number] [place] [id number] Self CD3 [id number] [place]ig[place] [id number] Self CD3 [id number] Medicare [facility] Medicare Primary [id number] Self [id number] [place] Medicare Primary [id number] Self [id number] [place] [id number] Self CD3 [id number] [place] [id number] Self CD3 [id number] Medicare [facility] Medicare Primary [id number] Self [id number] [place] B Self Medicare [facility] Medicare Primary Self MEDICARE [id number] SP [id number] A SELF PAY UNAVAILABLE SP UNAVAILA BLE MEDICAID [id number] PT [id number] MEDICARE PART B [id number] PT [id number] MEDICARE PART A [id number] PT [id number] Problems, Conditions, and Diagnoses Code Display Name Description Problem Type Effective Dates Data Source(s) E13.10 0106185 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 Problem 10/06/2020 12:00:00 AM EST eCW1 ([facility]) K76.0 189524575 Fatty liver Problem 10/05/2020 12:00:[address] eCW1 ([facility]) N40.0 777695850 Benign prostatic hyp erplasia without lower urinary tract symptoms Problem 10/05/2020 12:00:00 AM EST eCW1 ([facility]) K50.919 14773211 Crohn's disease with complication, unspecified gastrointestinal tract location Problem 10/05/2020 12:00:00 AM EST eCW1 ([facility]) K70.0 66179281 Fatty liver due to alcoholism Problem 2020 12:00:00 AM EST eCW1 ([facility]) K86.0 579641340 Alcohol-induced chronic pancreatitis Prob yi 10/05/2020 12:00:00 AM EST eCW1 ([facility]) Y83.2 38036186 Surgical operation w ith anastomosis, bypass or graft as the cause of abnormal reaction of the patient, or of later complication, without mention of misadventure at the time of the procedure Problem 09/07/2020 12:0 0:00 AM EST eCW1 ([facility]) D50.0 920575269 Iron deficiency anemia due to chronic blo od loss Problem 07/21/2020 12:00:00 AM EST eCW1 ([facility]) N40.1 [id number] Benign prostatic hyp erplasia with lower urinary tract symptoms Problem 11/14/2019 12:00:00 AM EST eCW1 ([facility]) N40.1 [id number] Benign prostatic hyp erplasia with lower urinary tract symptoms Problem 11/14/2019 12:00:00 AM EST eCW1 ([facility]) E11.65 Hyperglycemia due to type 2 diabetes no litus Diabetes mellitus with hyperglycemia Problem 11/14/2019 12:00:00 AM EST eCW1 ([facility]) E29.1 46871808 Hypogonadism in male Problem 11/01/2019 12:0 0:00 AM EST eCW1 ([facility]) E29.1 17718965 Hypogonadism in male Problem 11/01/2019 12:0 0:00 AM EST eCW1 ([facility]) I10 Hypertension Hypertension Problem 11/01/2019 12:00:00 A M EST eCW1 ([facility]) N52.9 [id number] Erectile dysfunction, unspecifie d erectile dysfunction type Problem 10/24/2019 12:00:00 AM EST eCW1 ([facility]) K83.8 Other specified diseases of biliary trac t Other specified diseases of biliary tract Diagnosis 07/29/2020 11:27:57 AM [facility] K28.9 Gastrojejunal ulcer, unspeci fied as acute or chronic, without hemorrhage or perforation Gastrojejunal ulcer, unspecified as acut e or chronic, without hemorrhage or perforation Diagnosis 07/29/2020 11:27:57 AM [facility] K80.50 Calculus of bile duct withou t cholangitis or cholecystitis without obstruction Calculus of bile duct without cholangiti s or cholecystitis without obstruction Diagnosis 05/13/2020 01:33:03 PM EDT [facility] I10 Essential (primary) hypertension Essential (primary) h ypertension Diagnosis 03/21/2020 01:21:37 AM [facility] gi bleed, CBD & pancreatic duct stone bl ockage, SI gi bleed, CBD & pancreatic duct stone blockage, SI Diagnosis 03/20/2020 09:58:44 PM T [facility] Surgeries/Procedures Procedure Description Date Indications Data Source(s) POCT GLUCOSE, DOCKED POCT GLUCOSE, DOCKED Routine 03/27/2020 12:28 PM EDT 03/27/2020 04:28:00 PM [facility] POCT GLUCOSE, DOCKED POCT GLUCOSE, DOCKED Routine 03/27/2020 8:57 AM EDT 03/27/2020 12:57:00 PM [facility] BLOOD COUNT COMPLETE AUTO&AUTO DIFRNTL WBC COUNT CBC AND DIFFER ENTIAL Timed 03/27/2020 3:17 AM EDT 03/27/2020 07:17:00 AM [facility] BASIC METABOLIC PANEL CALCIUM TOTAL BASIC METABOLIC PANEL Routi ne 03/27/2020 3:17 AM EDT 03/27/2020 07:17:00 AM [facility] GLUCOSE QUANTITATIVE BLOOD XCPT REAGENT STRIP POCT GLUCOSE, DOC KED Routine 03/26/2020 10:40 PM EDT 03/27/2020 02:40:00 AM [facility] GLUCOSE QUANTITATIVE BLOOD XCPT REAGENT STRIP POCT GLUCOSE, KARLO ROBERTS Routine 03/26/2020 10:00 PM EDT 03/27/2020 02:00:00 AM [facility] GLUCOSE QUANTITATIVE BLOOD XCPT REAGENT STRIP POCT GLUCOSE, KARLO ROBERTS Routine 03/26/2020 5:02 PM EDT 03/26/2020 09:02:00 PM [facility] CT ABDOEN & PELVIS W/CONTRAST MATERIAL CT ENTEROGRAPHY [id number] Ro utine 03/26/2020 3:27 PM EDT 03/26/2020 07:27:04 PM [facility] GLUCOSE QUANTITATIVE BLOOD XCPT REAGENT STRIP POCT GLUCOSEKARLO Routine 03/26/2020 12:34 PM EDT 03/26/2020 04:34:00 PM [facility] BLOOD COUNT COMPLETE AUTO&AUTO DIFRNTL WBC COUNT CBC AND DIFFER ENTIAL Timed 03/26/2020 12:28 PM EDT 03/26/2020 04:28:00 PM [facility] GLUCOSE QUANTITATIVE BLOOD XCPT REAGENT STRIP POCT GLUCOSE, KARLO ROBERTS Routine 03/26/2020 8:49 AM EDT 03/26/2020 12:49:00 PM [facility] BLOOD COUNT COMPLETE AUTO&AUTO DIFRNTL WBC COUNT CBC AND DIFFER ENTIAL Timed 03/26/2020 3:57 AM EDT 03/26/2020 07:57:00 AM [facility] BASIC METABOLIC PANEL CALCIUM TOTAL BASIC METABOLIC PANEL Routi ne 03/26/2020 3:57 AM EDT 03/26/2020 07:57:[address] [facility] GLUCOSE QUANTITATIVE BLOOD XCPT REAGENT STRIP POCT GLUCOSE, KARLO ROBERTS Routine 03/25/2020 10:01 PM EDT 03/26/2020 02:01:00 AM [facility] GLUCOSE QUANTITATIVE BLOOD XCPT REAGENT STRIP POCT GLUCOSEKARLO Routine 03/25/2020 9:21 PM EDT 03/26/2020 01:21:00 AM [facility] BLOOD COUNT COMPLETE AUTOMATED CBC AND DIFFERENTIAL Timed 03/25/2020 9:00 PM EDT 03/26/2020 01:00:[address] [facility] GLUCOSE QUANTITATIVE BLOOD XCPT REAGENT STRIP POCT GLUCOSE, KARLO ROBERTS Routine 03/25/2020 8:59 PM EDT 03/26/2020 12:59:00 AM [facility] GLUCOSE QUANTITATIVE BLOOD XCPT REAGENT STRIP POCT GLUCOSEKARLO Routine 03/25/2020 5:27 PM EDT 03/25/2020 09:27:00 PM [facility] GLUCOSE QUANTITATIVE BLOOD XCPT REAGENT STRIP POCT GLUCOSE, KARLO ROBERTS Routine 03/25/2020 12:51 PM EDT 03/25/2020 04:51:00 PM [facility] BLOOD COUNT COMPLETE AUTO&AUTO DIFRNTL WBC COUNT CBC AND DIFFER ENTIAL Timed 03/25/2020 12:28 PM EDT 03/25/2020 04:28:00 PM [facility] UPPER GI ENDOSCOPY; DX, W/WO SPECIMEN COLLECTION, BRUS PAVEL/WASHING (SEP PROC) UPPER GI ENDOSCOPY; DX, W/WO SPECIMEN COLLECTION, BRUSHING/WASHING (SEP PROC) 03/25/2020 9:09 AM EDT Anemia 03/25/2020 01:09:00 PM EDT - 03/25/2020 02:28:00 PM [facility] COLONOSCOPY, FLEXIBLE, PROXIMAL TO SPLEN IC FLEXURE DX, W/WO SPECIMENS/COLON DECOMP (SEP PROC) COLONOSCOPY, FLEXIBLE, PROXIMAL TO SPLEN IC FLEXURE DX, W/WO SPECIMENS/COLON DECOMP (SEP PROC) 03/25/2020 9:09 AM EDT Anemia 03/25/2020 01:09:00 PM EDT - 03/25/2020 02:28:00 PM [facility] BLOOD COUNT COMPLETE AUTO&AUTO DIFRNTL WBC COUNT CBC AND DIFFER ENTIAL Timed 03/25/2020 2:54 AM EDT 03/25/2020 06:54:00 AM [facility] BASIC METABOLIC PANEL CALCIUM TOTAL BASIC METABOLIC PANEL Routi ne 03/25/2020 2:54 AM EDT 03/25/2020 06:54:[address] [facility] UPPER GI ENDOSCOPY UPPER GI ENDOSCOPY 03/25/2020 12:00 AM E DT 03/25/2020 04:00:00 AM [facility] Screening colonoscopy (procedure) COLONOSCOPY 03/25/2020 12 :00 AM EDT 03/25/2020 04:00:00 AM [facility] GLUCOSE QUANTITATIVE BLOOD XCPT REAGENT STRIP POCT GLUCOSEKARLO Routine 03/24/2020 8:40 PM EDT 03/25/2020 12:40:00 AM [facility] BLOOD COUNT COMPLETE AUTO&AUTO DIFRNTL WBC COUNT CBC AND DIFFER ENTIAL Timed 03/24/2020 6:37 PM EDT 03/24/2020 10:37:00 PM [facility] GLUCOSE QUANTITATIVE BLOOD XCPT REAGENT STRIP POCT GLUCOSE, KARLO ROBERTS Routine 03/24/2020 5:57 PM EDT 03/24/2020 09:57:00 PM [facility] GLUCOSE QUANTITATIVE BLOOD XCPT REAGENT STRIP POCT GLUCOSE, KARLO CHOWDARYD Routine 03/24/2020 12:37 PM EDT 03/24/2020 04:37:00 PM [facility] BLOOD COUNT COMPLETE AUTO&AUTO DIFRNTL WBC COUNT CBC AND DIFFER ENTIAL Timed 03/24/2020 10:58 AM EDT 03/24/2020 02:58:00 PM [facility] GLUCOSE QUANTITATIVE BLOOD XCPT REAGENT STRIP POCT GLUCOSE, KARLO ROBERTS Routine 03/24/2020 8:26 AM EDT 03/24/2020 12:26:00 PM [facility] BASIC METABOLIC PANEL CALCIUM TOTAL BASIC METABOLIC PANEL STAT 03/24/2020 3:40 AM EDT 03/24/2020 07:40:[address] [facility] BLOOD COUNT COMPLETE AUTO&AUTO DIFRNTL WBC COUNT CBC AND DIFFER ENTIAL Timed 03/24/2020 2:31 AM EDT 03/24/2020 06:31:00 AM [facility] BASIC METABOLIC PANEL CALCIUM TOTAL BASIC METABOLIC PANEL Routi ne 03/24/2020 2:31 AM EDT 03/24/2020 06:31:[address] [facility] GLUCOSE QUANTITATIVE BLOOD XCPT REAGENT STRIP POCT GLUCOSE, KARLO ROBERTS Routine 03/23/2020 9:26 PM EDT 03/24/2020 01:26:00 AM [facility] GLUCOSE QUANTITATIVE BLOOD XCPT REAGENT STRIP POCT GLUCOSE, KARLO ROBERTS Routine 03/23/2020 9:24 PM EDT 03/24/2020 01:24:00 AM [facility] EKG 12-LEAD - CMAXX REPORT EKG 12-LEAD - CMAXX REPORT 03/23/2020 8:07 PM EDT 03/24/2020 12:07:[address] [facility] EKG 12-LEAD - CMAXX REPORT EKG 12-LEAD - CMAXX REPORT 03/23/2020 8:07 PM EDT 03/24/2020 12:07:[address] [facility] EKG 12-LEAD - CMAXX REPORT EKG 12-LEAD - CMAXX REPORT 03/23/2020 8:07 PM EDT 03/24/2020 12:07:[address] [facility] EKG 12-LEAD EKG 12-LEAD Routine 03/23/2020 8:07 PM EDT 03/24/2020 12:07:36 AM [facility] BLOOD COUNT COMPLETE AUTO&AUTO DIFRNTL WBC COUNT CBC AND DIFFER ENTIAL Timed 03/23/2020 6:49 PM EDT 03/23/2020 10:49:00 PM [facility] GLUCOSE QUANTITATIVE BLOOD XCPT REAGENT STRIP POCT GLUCOSE, DOC KED Routine 03/23/2020 6:05 PM EDT 03/23/2020 10:05:00 PM [facility] GLUCOSE QUANTITATIVE BLOOD XCPT REAGENT STRIP POCT GLUCOSE, DOC KED Routine 03/23/2020 12:51 PM EDT 03/23/2020 04:51:00 PM [facility] GLUCOSE QUANTITATIVE BLOOD XCPT REAGENT STRIP POCT GLUCOSE, DOC KED Routine 03/23/2020 9:14 AM EDT 03/23/2020 01:14:00 PM [facility] BLOOD COUNT COMPLETE AUTOMATED CBC Routine 03/23/2020 8:49 A M EDT 03/23/2020 12:49:00 PM [facility] BASIC METABOLIC PANEL CALCIUM TOTAL BASIC METABOLIC PANEL Routi ne 03/23/2020 8:49 AM EDT 03/23/2020 12:49:[address] [facility] BLOOD COUNT COMPLETE AUTO&AUTO DIFRNTL WBC COUNT CBC AND DIFFER ENTIAL Timed 03/23/2020 6:06 AM EDT 03/23/2020 10:06:00 AM [facility] TRANSFUSE RBC (ONCE) TRANSFUSE RBC (ONCE) Routine 03/23/2020 4:40 AM EDT 03/23/2020 08:40:57 AM [facility] BLOOD COUNT COMPLETE AUTO&AUTO DIFRNTL WBC COUNT CBC AND DIFFER ENTIAL Timed 03/22/2020 11:15 PM EDT 03/23/2020 03:15:00 AM [facility] GLUCOSE QUANTITATIVE BLOOD XCPT REAGENT STRIP POCT GLUCOSE, DOC KED Routine 03/22/2020 9:28 PM EDT 03/23/2020 01:28:00 AM [facility] GLUCOSE QUANTITATIVE BLOOD XCPT REAGENT STRIP POCT GLUCOSE, KARLO ROBERTS Routine 03/22/2020 5:43 PM EDT 03/22/2020 09:43:00 PM [facility] GLUCOSE QUANTITATIVE BLOOD XCPT REAGENT STRIP POCT GLUCOSE, KARLO ROBERTS Routine 03/22/2020 1:56 PM EDT 03/22/2020 05:56:00 PM [facility] BLOOD COUNT COMPLETE AUTO&AUTO DIFRNTL WBC COUNT CBC AND DIFFER ENTIAL Timed 03/22/2020 12:54 PM EDT 03/22/2020 04:54:00 PM [facility] MRI ABDOMEN W/O CONTRAST MATERIAL MR BILIARY TREE MRCP [id number] Ro utine 03/22/2020 11:27 AM EDT 03/22/2020 03:27:20 PM [facility] GLUCOSE QUANTITATIVE BLOOD XCPT REAGENT STRIP POCT GLUCOSE, KARLO ROBERTS Routine 03/22/2020 7:44 AM EDT 03/22/2020 11:44:00 AM [facility] BLOOD COUNT COMPLETE AUTO&AUTO DIFRNTL WBC COUNT CBC AND DIFFER ENTIAL Timed 03/22/2020 3:30 AM EDT 03/22/2020 07:30:00 AM [facility] COMPREHENSIVE METABOLIC PANEL COMPREHENSIVE METABOLIC PANEL Delonte rach 03/22/2020 3:30 AM EDT 03/22[facility] XCPT REAGENT STRIP POCT GLUCOSEKARLO Routine 03/22/2020 3:19 AM EDT 03/22/2020 07:19:00 AM [facility] GLUCOSE QUANTITATIVE BLOOD XCPT REAGENT STRIP POCT GLUCOSE, KARLO ROBERTS Routine 03/21/2020 11:29 PM EDT 03/22/2020 03:29:00 AM [facility] BLOOD COUNT COMPLETE AUTO&AUTO DIFRNTL WBC COUNT CBC AND DIFFER ENTIAL Timed 03/21/2020 8:20 PM EDT 03/22/2020 12:20:00 AM [facility] GLUCOSE QUANTITATIVE BLOOD XCPT REAGENT STRIP POCT GLUCOSE, KARLO ROBERTS Routine 03/21/2020 5:21 PM EDT 03/21/2020 09:21:00 PM [facility] ACUTE GASTROINTESTINAL BLOOD LOSS IMAGING NM GI BLOOD LOSS IMAG ING [id number] STAT 03/21/2020 4:00 PM EDT 03/21/2020 08:00:03 PM [facility] BLOOD COUNT COMPLETE AUTOMATED CBC STAT 03/21/2020 1:56 P M EDT 03/21/2020 05:56:00 PM [facility] SODIUM URINE SODIUM, URINE, RANDOM Routine 03/21/2020 12:45 PM EDT 03/21/2020 04:45:00 PM [facility] GLUCOSE QUANTITATIVE BLOOD XCPT REAGENT STRIP POCT GLUCOSE, DOC KED Routine 03/21/2020 12:41 PM EDT 03/21/2020 04:41:00 PM [facility] LACTATE LACTIC ACID LEVEL, PLASMA Routine 03/21/2020 11:23 AM EDT 03/21/2020 03:23:00 PM [facility] OSMOLALITY BLOOD OSMOLALITY,BLOOD Routine 03/21/2020 11:02 AM EDT 03/21/2020 03:02:00 PM [facility] GLUCOSE QUANTITATIVE BLOOD XCPT REAGENT STRIP POCT GLUCOSE, DOC KED Routine 03/21/2020 7:58 AM EDT 03/21/2020 11:58:00 AM [facility] CT ABDOMEN W/CONTRAST MATERIAL CT ABDOMEN WITH CONTRAST [id number] S TAT 03/21/2020 6:05 AM EDT 03/21/2020 10:05:[address] [facility] CONFIRMATORY TYPE CONFIRMATORY TYPE Routine 03/21/2020 5:24 AM EDT 03/21/2020 09:24:00 AM [facility] BLOOD COUNT COMPLETE AUTO&AUTO DIFRNTL WBC COUNT CBC AND DIFFER ENTIAL STAT 03/21/2020 5:24 AM EDT 03/21/2020 09:24:00 AM [facility] COMPREHENSIVE METABOLIC PANEL COMPREHENSIVE METABOLIC PANEL Rou rach 03/21/2020 5:24 AM EDT 03/21/2020 09:24:[address] [facility] EKG 12-LEAD - CMAXX REPORT EKG 12-LEAD - CMAXX REPORT 03/21/2020 2:25 AM EDT 03/21/2020 06:25:[address] [facility] EKG 12-LEAD - CMAXX REPORT EKG 12-LEAD - CMAXX REPORT 03/21/2020 2:25 AM EDT 03/21/2020 06:25:[address] [facility] EKG 12-LEAD EKG 12-LEAD Routine 03/21/2020 2:25 AM EDT 03/21/2020 06:25:01 AM [facility] DRUGS OF ABUSE, URINE DRUGS OF ABUSE, URINE Routine 03/21/2020 12 :37 AM EDT 03/21/2020 04:37:00 AM [facility] BLOOD OCCULT FECAL HGB DETER IA QUAL FECES 1-3 FECAL OCCULT BLOOD, LOWER GI (HEMOCCULT-ICT), FIT TESTING, Routine 03/21/2020 12:37 AM EDT 03/21/2020 04:37:00 AM [facility] IAAD EIA HIV-1 AG W/HIV-1&HIV-2 ANTBDY SINGLE HIV AG AB COMBO S CREEN Routine 03/21/2020 12:22 AM EDT 03/21/2020 04:22:00 AM [facility] ETHYL ALCOHOL LEVEL ETHYL ALCOHOL LEVEL Routine 03/21/2020 12:22 AM EDT 03/21/2020 04:22:00 AM [facility] HEPATITIS C ANTIBODY HEPATITIS C ANTIBODY Routine 03/21/2020 12:22 AM EDT 03/21/2020 04:22:00 AM [facility] IADNA HEPATITIS C QUANTIFICATION HEPATITIS C RNA, QUANTITATIVE, PCR Routine 03/21/2020 12:22 AM EDT 03/21/2020 04:22:00 AM [facility] PROTHROMBIN TIME PROTIME INR Routine 03/21/2020 12:22 AM EDT 03/21/2020 04:22:00 AM [facility] BLOOD COUNT COMPLETE AUTO&AUTO DIFRNTL WBC COUNT CBC AND DIFFER ENTIAL Routine 03/21/2020 12:22 AM EDT 03/21/2020 04:22:00 AM [facility] BLOOD TYPING ABO TYPE AND CROSSMATCH Routine 03/21/2020 12:22 AM ED T 03/21/2020 04:22:00 AM [facility] PHOSPHORUS INORGANIC PHOSPHORUS LEVEL Routine 03/21/2020 12:22 AM E DT 03/21/2020 04:22:00 AM [facility] MAGNESIUM MAGNESIUM LEVEL Routine 03/21/2020 12:22 AM EDT 03/21/2020 04:22:00 AM [facility] LIPASE LIPASE LEVEL Routine 03/21/2020 12:22 AM EDT 03/21/2020 04:22:00 AM [facility] LACTATE LACTIC ACID LEVEL, PLASMA Routine 03/21/2020 12:22 AM EDT 03/21/2020 04:22:00 AM [facility] CREATINE KINASE TOTAL CK Routine 03/21/2020 12:22 AM EDT 03/21/2020 04:22:00 AM [facility] COMPREHENSIVE METABOLIC PANEL COMPREHENSIVE METABOLIC PANEL Rou rach 03/21/2020 12:22 AM EDT 03/21/2020 04:22:[address] [facility] GLUCOSE QUANTITATIVE BLOOD XCPT REAGENT STRIP POCT GLUCOSE, DOC KED Routine 03/21/2020 12:19 AM EDT 03/21/2020 04:19:00 AM [facility] Influenza A+B 12/09/2019 12:00:00 AM EDT eCW1 ([facility]) Office Visit, Est Pt., Level 2 FC 11/14/2019 12:00:00 AM EST eCW1 ([facility]) Office Visit, Est Pt., Level 4 PC 11/14/2019 12:00:00 AM EST eCW1 ([facility]) Office Visit, Est Pt., Level 4 FC 10/24/2019 12:00:00 AM EST eCW1 ([facility]) ELECTROCARDIOGRAM REPORT 10/24/2019 12:00:00 AM EST eCW1 ([facility]) ELECTROCARDIOGRAM TRACING 10/24/2019 12:00:00 AM EST eCW1 ([facility]) Results ID Date Data Source [id number] 10/21/2020 12:36:00 PM EST [facility] Name Value Range Interpretation Code Description Data Hazel rce(s) Supporting Document(s) SARS coronavirus 2 RNA [Presence] in Res piratory specimen by BURTON with probe detection NEGATIVE [facility] This lab was ordered by [facility] a nd reported by [facility]. ID Date Data Source ACETONE/KETONE 10/08/2020 12:00:00 AM EST eCW1 ([facility]) Name Value Range Interpretation Code Description Data Hazel rce(s) Supporting Document(s) 1.04 <2.81 ACETONE/KETONE W1 ([facility]) ID Date Data Source ETHYL ALCOHOL (ETHANOL) 10/08/2020 12:00:00 AM EST eCW1 ([facility]) Name Value Range Interpretation Code Description Data Hazel rce(s) Supporting Document(s) < 0.003 0.000-0.010 ETHYL ALCOHOL (ETHANOL) eCW1 ([facility]) ID Date Data Source Comprehensive Metabolic Profile (CMP) 10/08/2020 12:00:00 AM EST eCW1 ([facility]) Name Value Range Interpretation Code Description Data Hazel rce(s) Supporting Document(s) 531 70-100 GLUCOSE, FASTING eCW1 ([facility]) 134 136-145 SODIUM LEVEL eCW1 ([facility]) 10 7-18 BLOOD UREA NITROGEN eCW1 ([facility]) 1.20 0.70-1.30 CREATININE FOR GFR eCW1 ([facility]) > 60.0 >56 GLOMERULAR FILTRATION RATE eCW 1 ([facility]) 3.8 3.5-5.1 POTASSIUM SERUM eCW1 ([facility]) 100 98-107 CHLORIDE LEVEL eCW1 ([facility]) 7.8 8.5-10.1 CALCIUM LEVEL eCW1 ([facility]) 31 21-32 CARBON DIOXIDE LEVEL eCW1 ([facility]) 165 45-117 ALKALINE PHOSPHATASE eCW1 ([facility]) 24 12-78 ALT/SGPT eCW1 ([facility]) 0.3 0.2-1.0 BILIRUBIN,TOTAL eCW1 ([facility]) 16 7-37 AST/SGOT eCW1 ([facility]) 1.8 3.2-5.2 ALBUMIN eCW1 ([facility]) 4.7 6.4-8.2 TOTAL PROTEIN eCW1 ([facility]) 0.6 ALBUMIN/GLOBULIN RATIO eCW1 ([facility]) ID Date Data Source C REACTIVE PROTEIN QUANTITATIV (At [facility]) 10/05/2020 12:00 :00 AM EST eCW1 ([facility]) Name Value Range Interpretation Code Description Data Hazel rce(s) Supporting Document(s) 1.05 0.00-0.30 C REACTIVE PROTEIN QUANTI TATIV eCW1 ([facility]) ID Date Data Source MAGNESIUM LEVEL 10/05/2020 12:00:00 AM EST eCW1 ([facility]) Name Value Range Interpretation Code Description Data Hazel rce(s) Supporting Document(s) 1.6 1.8-2.4 MAGNESIUM LEVEL eCW1 ([facility]) ID Date Data Source FERRITIN 10/05/2020 12:00:00 AM EST eCW1 ([facility]) Name Value Range Interpretation Code Description Data Hazel rce(s) Supporting Document(s) [id number] FERRITIN eCW1 ([facility]) ID Date Data Source IRON (FE) 10/05/2020 12:00:00 AM EST eCW1 ([facility]) Name Value Range Interpretation Code Description Data Hazel rce(s) Supporting Document(s) 17 [id number] IRON (FE) eCW1 ([facility]) ID Date Data Source LIPASE 10/05/2020 12:00:00 AM EST eCW1 ([facility]) Name Value Range Interpretation Code Description Data Hazel rce(s) Supporting Document(s) 44 29-393 LIPASE eCW1 ([facility]) ID Date Data Source CBC with Differential 10/05/2020 12:00:00 AM EST eCW1 ([facility]) Name Value Range Interpretation Code Description Data Hazel rce(s) Supporting Document(s) 4.5 4.0-10.0 WHITE BLOOD COUNT eCW1 ([facility]) 3.02 4.30-6.10 RED BLOOD COUNT eCW1 ([facility]) 9.3 13.5-17.5 HEMOGLOBIN eCW1 ([facility]) 94.4 80.0-96.0 MEAN CORPUSCULAR VOLUME e CW1 ([facility]) 28.5 42.0-52.0 HEMATOCRIT eCW1 ([facility]) 30.8 27.0-33.0 MEAN CORPUSCULAR HEMOGLOB IN eCW1 ([facility]) 66.5 36.0-66.0 NEUTROPHILS % eCW1 ([facility]) 15.9 11.5-14.5 RED CELL DISTRIBUTION WID TH eCW1 ([facility]) 32.6 32.0-36.5 MEAN CORPUSCULAR HGB CONC eCW1 ([facility]) 393 150-450 PLATELET COUNT, AUTOMATED eCW1 ([facility]) 1.1 0.0-3.0 EOS % eCW1 ([facility]) 8.2 0.0-5.0 MONO % eCW1 ([facility]) 22.5 24.0-44.0 LYMPH % eCW1 ([facility]) 1.5 0.0-1.0 BASO % eCW1 ([facility]) 1.0 1.5-5.0 LYMPH # eCW1 ([facility]) 3.0 1.5-8.5 NEUTROPHILS # eCW1 ([facility]) 0.1 0.0-0.2 BASO # eCW1 ([facility]) 0.4 0.0-0.8 MONO # eCW1 ([facility]) 0.1 0.0-0.5 EOS # eCW1 ([facility]) ID Date Data Source AMYLASE 10/05/2020 12:00:00 AM EST eCW1 ([facility]) Name Value Range Interpretation Code Description Data Hazel rce(s) Supporting Document(s) 19 25-115 AMYLASE eCW1 ([facility]) ID Date Data Source [id number] 09/19/2020 01:19:00 AM EST [facility] Name Value Range Interpretation Code Description Data Hazel rce(s) Supporting Document(s) SARS coronavirus 2 RNA [Presence] in Res piratory specimen by BURTON with probe detection NEGATIVE [facility] This lab was ordered by [facility] a nd reported by [facility]. ID Date Data Source [id number] 09/07/2020 12:00:00 AM EST eCW1 ([facility]) Name Value Range Interpretation Code Description Data Hazel rce(s) Supporting Document(s) Hemoglobin A1c/Hemoglobin.total in Blood 7.4 HEMOGLOBIN A1c eCW1 ([facility]) ID Date Data Source [id number] 08/27/2020 11:52:55 AM EST [facility] Name Value Range Interpretation Code Description Data Hazel rce(s) Supporting Document(s) Progress Note [facility] WCTZNk6vZrTTDkGk47/FCJtoMCWvm5ZdVDngYCk0XFeeCXNaL2QkULS3qC1lTPK8ILoLBmPmSxXmCqV9 [facility] [file] appeals nurse+fLF+aiYHFxLdERt5vTSQksP6PkKLtDafFtnkVbKT4GcjDaCJUsr7BgTjeRnPZbYtaCIFJcgFFq9a [file] veneer press operator+EiE3erqNBBeNHiw4TmU7jAfBDSjzdCWkqlgP6G [file] AyMTEwMyAwMDAwMCBuDQowMDAwMDMyNTMzIDAwMDAw VU7PWvCiUWPqLkW7IXleJKSaQJPhht5EMPEuPPKqPcG2MbNmVTSjVKFxNNzmEFXqVUBuOcT2KCYcISXk OY4VBtArAEVjEfY5YlRxLHUhHUHrjx9FRVGbXKTpUZMwPxFiAFYlNVArIQazHVEpSMP5NHs6SZVuQWId PY4CTaZfFZVhKjV7JbCvXYDwNBNdhj2ILUXrQLZoUM T5QNTvQANpPLVmVStpLTNkTYY2CqS6BLAjIJXpWE0EOsRpDXLkIjV3RpTcOBRlCPLlke9BOVCcTQDgZf a6UXTqOJIhAPRfWKv4rpHlqOPrTBv9NW0WK3CgqgQgLqIASj0Xg917YYUrQKKiDe0NF1tyBo2xPSMnLJ JAUg3UTFk1ASbxOIP9KEK0DHInFcL3OXLeLqMzSiU5 AqJiRBVlU9N+AWdySAS7SrxfRsvbRqL6NKlkSfEyPEG4BWBxHHSdOwKsQn1jTTBBMj2+DQpzdGFydHhy OKUWJcI8FXA7MSoiIGWHEp1H ID Date Data Source [id number] 08/22/2020 12:43:00 PM [facility] Name Value Range Interpretation Code Description Data Hazel rce(s) Supporting Document(s) SARS coronavirus 2 RNA [Presence] in Res piratory specimen by BURTON with probe detection [facility] This lab was ordered by [facility] a nd reported by [facility]. ID Date Data Source [id number] 07/31/2020 12:17:07 PM EST [facility] Name Value Range Interpretation Code Description Data Hazel rce(s) Supporting Document(s) Progress Note [facility] TKWNAi2xIzGVDnDh65/GEZbqCTJte0TzPVypJRx9XFwcWPTfA7PuWKP9hN7yFHW2LYiCFyVvDgHxYVMx lbm [file] XYWsLpL7QMVcBhTgLLG+OG4bPQc+Ve4La2JlckN3tsYwYOapCyLkQE5VIYABD8FWIi== ID Date Data Source [id number] 07/13/2020 02:25:35 PM [facility] Current Medications: BD INSULIN SYR ULTR AFINE II 31G X 5/16" 0.3 ML (INSULIN SYRINGE-NEEDLE U-100) TRAMADOL HCL 50 MG ORAL TABLET (TRAMADOL HCL) ; Route: ORAL* ATENOLOL * GLUCAPHAGE Dental Chart: Procedures:Type - CDT Code - Description B - (D2222) No Charge Visit (Performed by Sae Sluaghter DDS) Chart Notes:luciana (Jul 13 2020 4:05PM): [...] rce(s) Supporting Document(s) ID Date Data Source [id number] 05/13/2020 03:14:01 PM EDT [facility] Name Value Range Interpretation Code Description Data Hazel rce(s) Supporting Document(s) Progress Note [facility] RXRQIj3gArGOPiWo02/DBJqbLHMpg4XeGUhsEUw9NWabZPKtP2YxWHW8aV5jEPX7IIzLNrVpIxPqEYUk lbm [file] GmEnYB7BOZk= ID Date Data Source [id number] 04/30/2020 12:48:34 PM EDT [facility] Current Medications: BD INSULIN SYR ULTR [...] rce(s) Supporting Document(s) ID Date Data Source [id number] 03/28/2020 07:03:33 PM EDT [facility] Name Value Range Interpretation Code Description Data Hazel rce(s) Supporting Document(s) Discharge Summary [facility] THDEJa5xTrVPEbDp26/GLXaiFUOqc7EgINxzMJr9XOoeIRWhG8PzUWC4qY8vQCI2YUjCNsSoXsQlSoC9 lbm [file] KWG3FuN1LPYaAGuwPkCaFY9DCi2MUlG7SFA6dTGaDu3XLzv7GeuKGwBhFJ9ADOb= ID Date Data Source [id number] 03/27/2020 12:29:26 PM EDT [facility] Name Value Range Interpretation Code Description Data Hazel rce(s) Supporting Document(s) Glucose [Mass/volume] in Capillary blood by Glucometer 85 mg/dL 70- 140 [facility] ID Date Data Source [id number] 03/27/2020 11:51:15 AM EDT [facility] Name Value Range Interpretation Code Description Data Hazel rce(s) Supporting Document(s) Consultation [facility] FRSWDc4yMtINNmCb43/MIEetFSEjg5SsJDsbBNk0HKzsAOFgU5MtTQG2aA7tQBM2PFeZIrOgXqCiIjV3 lbm [file] R7PtPsRwXUUySGA3Is8jSETPOg0+EWwxeXQdiDxhDRTOXrazIoJPUhOjQL9KDAu= ID Date Data Source [id number] 03/27/2020 08:59:40 AM EDT [facility] Name Value Range Interpretation Code Description Data Hazel rce(s) Supporting Document(s) Glucose [Mass/volume] in Capillary blood by Glucometer 208 mg/dL 70- [address] [facility] ID Date Data Source [id number] 03/27/2020 08:40:39 AM EDT [facility] Name Value Range Interpretation Code Description Data Hazel rce(s) Supporting Document(s) Progress Note [facility] RIRLUs3jUaVKLrZp97/KUQmrXRHwm2HnVPbsRUo9JRceAVSdV8TeMLJ1gC5kDUU5NOdVCgFsLkDbYiB9 lbm [file] Bi5ErAilreH38SN/JZDa+h5Sws62rPbFyvV8wPGt9B+5Bwq9+n4KjbIJ6L/Martín+kvvy8naKHEwocu5hb IQBsPB7hi+5+wJa5pOQEkyicS6h4ev7XEZRn3B/gonsalo [file] IB2MKr4EHuK5SCZ1gLLgAn6GKtIgKwhERlBqZK8ECYy= ID Date Data Source [id number] 03/27/2020 04:21:21 AM EDT [facility] Name Value Range Interpretation Code Description Data Hazel rce(s) Supporting Document(s) Bicarbonate [Moles/volume] in Serum 27 mmol/L 22-29 [facility] Chloride [Moles/volume] in Serum or Plasma 99 mmol/L 98-107 [facility] Creatinine [Mass/volume] in Serum or Plasma 1.10 mg/dL 0.70-1.20 [facility] Glucose [Mass/volume] in Serum or Plasma 186 mg/dL 70-[address] [facility] Potassium [Moles/volume] in Serum or Plasma 3.5 mmol/L 3.4-5.1 [facility] Sodium [Moles/volume] in Serum or Plasma 137 mmol/L 136-145 [facility] Urea nitrogen [Mass/volume] in Serum or Plasma 6 mg/dL 6-20 [facility] Anion gap 3 in Serum or Plasma 11 mmol/L 8-15 [facility] Osmolality of Serum or Plasma by calculation 286 mosm/kg 275-300 [facility] Creatinine/Urea nitrogen [Mass Ratio] in Serum or Plasma 6 [facility] Calcium [Mass/volume] in Serum or Plasma 8.4 mg/dL 8.6-10.[address] [facility] Glomerular filtration rate/1.73 sq M pre dicted among non-blacks [Volume Rate/Area] in Serum or Plasma by Creatinine-based formula (MDRD) 74 mL/min/1.73m2 >60 [facility] Glomerular filtration rate/1.73 sq M pre dicted among blacks [Volume Rate/Area] in Serum or Plasma by Creatinine-based formula (MDRD) 86 mL/min/1.73m2 >60 [facility] ID Date Data Source [id number] 03/27/2020 04:21:41 AM T [facility] Name Value Range Interpretation Code Description Data Hazel rce(s) Supporting Document(s) Leukocytes [#/volume] in Blood by Automated count 3.9 10*3/uL 4-[address] [facility] Erythrocytes [#/volume] in Blood by Automated count 3.23 10*6/uL 4.6- 6.1 [facility] Hemoglobin [Mass/volume] in Blood 10.3 g/dL 13.5-[address] [facility] Hematocrit [Volume Fraction] of Blood by Automated count 30.6 % 4 1-[address] [facility] Erythrocyte mean corpuscular volume [Entitic volume] by Auto mated count 94.8 fL 80-96 [facility] Erythrocyte mean corpuscular hemoglobin [Entitic mass] by Automated count 32.0 pg 27-33 [facility] Erythrocyte mean corpuscular hemoglobin concentration [Mass/volume] by Automated count 33.7 g[facility].0[facility] width [Ratio] by Automated count 16.6 % 11.5-14.[address] [facility] Platelets [#/volume] in Blood by Automated count 228 10*3/uL 150-400 [facility] Differential cell count method - Blood [facility] Neutrophils/100 leukocytes in Blood by Automated count 36 % [facility] Lymphocytes/100 leukocytes in Blood by Automated count 47 % [facility] Monocytes/100 leukocytes in Blood by Automated count 8 % [facility] Eosinophils/100 leukocytes in Blood by Automated count 8 % [facility] Basophils/100 leukocytes in Blood by Automated count 1 % [facility] Neutrophils [#/volume] in Blood by Automated count 1.39 10*3/uL 1.8-[address] [facility] Lymphocytes [#/volume] in Blood by Automated count 1.83 10*3/uL 1.2-[address] [facility] Monocytes [#/volume] in Blood by Automated count 0.32 10*3/uL 0-0.8 [facility] Eosinophils [#/volume] in Blood by Automated count 0.31 10*3/uL 0-0.5 [facility] Basophils [#/volume] in Blood by Automated count 0.05 10*3/uL 0-0.2 [facility] Nucleated erythrocytes/100 leukocytes [Ratio] in Blood by Automated count 0 /100{WBCs} 0-0 [facility] ID Date Data Source [id number] 03/26/2020 10:46:49 PM EDT [facility] Value Range Interpretation Code Description Data Hazel rce(s) Supporting Document(s) Glucose [Mass/volume] in Capillary blood by Glucometer 272 mg/dL 70- [address] [facility] ID Date Data Source [id number] 03/26/2020 10:32:38 PM EDT [facility] Name Value Range Interpretation Code Description Data Hazel rce(s) Supporting Document(s) Glucose [Mass/volume] in Capillary blood by Glucometer 253 mg/dL 70- [address] [facility] ID Date Data Source [id number] 03/26/2020 05:04:06 PM EDT [facility] Value Range Interpretation Code Description Data Hazel rce(s) Supporting Document(s) Glucose [Mass/volume] in Capillary blood by Glucometer 170 mg/dL 70- [address] [facility] ID Date Data Source [id number] 03/26/2020 04:15:50 PM EDT [facility] CT ENTEROGRAPHY [id number] RESULTInterpr eted by:Estelle Chen MDINDICATION: Abdominal pain, [...] rce(s) Supporting Document(s) ID Date Data Source [id number] 03/26/2020 02:32:32 PM [facility] Name Value Range Interpretation Code Description Data [facility] Document(s) [facility] CCWNWk5bCfTRHqSu14/QXZhkCYYyb0ApPPqlRGy3CNhaRSEgA8EpHWZ5fM9eOWO9JAyEQyWsLkCnHaW8 m [file] business information manager+DvBRp26H5I/JFarEyahG604yFWXcgU+ITCBmLXD0thSGbVCrIBcS65i4RdKkNcmGPZBGjKFaJKs0G [file] KAVbEDVfHmNkFwMtHB5pKFIRGk1+WFfhnNMeqUgrWCIOQdZ9EMZ4NKcuSRYJDh8T ID Date Data Source [id number] 03/26/2020 12:44:13 PM [facility] Name Value Range Interpretation Code Description Data Hazel rce(s) Supporting Document(s) Glucose [Mass/volume] in Capillary blood by Glucometer 198 mg/dL 70- [address] [facility] ID Date Data Source [id number] 03/26/2020 01:02:03 PM [facility] Name Value Range Interpretation Code Description Data Hazel rce(s) Supporting Document(s) Leukocytes [#/volume] in Blood by Automated count 2.9 10*3/uL 4-[address] [facility] Erythrocytes [#/volume] in Blood by Automated count 2.70 10*6/uL 4.6- 6.[address] [facility] Hemoglobin [Mass/volume] in Blood 8.7 g/dL 13.5-[address] [facility] Hematocrit [Volume Fraction] of Blood by Automated count 25.7 % 4 1-[address] [facility] Erythrocyte mean corpuscular volume [Entitic volume] by Auto mated count 95.1 fL 80-96 [facility] Erythrocyte mean corpuscular hemoglobin [Entitic mass] by Automated count 32.3 pg 27-33 [facility] Erythrocyte mean corpuscular hemoglobin concentration [Mass/volume] by Automated count 34.0 g/dL 32.0-36.[facility] distribution width [Ratio] by Automated count 16.9 % 11.5-14.[address] [facility] Platelets [#/volume] in Blood by Automated count 178 10*3/uL 150-400 [facility] Differential cell count method - Blood [facility] Neutrophils/100 leukocytes in Blood by Automated count 47 % [facility] Lymphocytes/100 leukocytes in Blood by Automated count 35 % [facility] Monocytes/100 leukocytes in Blood by Automated count 12 % [facility] Eosinophils/100 leukocytes in Blood by Automated count 5 % [facility] Basophils/100 leukocytes in Blood by Automated count 1 % [facility] Neutrophils [#/volume] in Blood by Automated count 1.37 10*3/uL 1.8-[address] [facility] Lymphocytes [#/volume] in Blood by Automated count 1.01 10*3/uL 1.2-[address] [facility] Monocytes [#/volume] in Blood by Automated count 0.35 10*3/uL 0-0.8 [facility] Eosinophils [#/volume] in Blood by Automated count 0.16 10*3/uL 0-0.5 [facility] Basophils [#/volume] in Blood by Automated count 0.03 10*3/uL 0-0.2 [facility] Nucleated erythrocytes/100 leukocytes [Ratio] in Blood by Automated count 0 /100{WBCs} 0-0 [facility] ID Date Data Source [id number] 03/26/2020 09:06:35 AM [facility] Name Value Range Interpretation Code Description Data Hazel rce(s) Supporting Document(s) Glucose [Mass/volume] in Capillary blood by Glucometer 198 mg/dL 70- [address] [facility] ID Date Data Source [id number] 03/26/2020 05:00:55 AM [facility] Name Value Range Interpretation Code Description Data Hazel rce(s) Supporting Document(s) Leukocytes [#/volume] in Blood by Automated count 3.8 10*3/uL 4-[address] [facility] Erythrocytes [#/volume] in Blood by Automated count 2.82 10*6/uL 4.6- 6.[address] [facility] Hemoglobin [Mass/volume] in Blood 9.0 g/dL 13.5-[address] [facility] Hematocrit [Volume Fraction] of Blood by Automated count 26.9 % 4 1-[address] [facility] Erythrocyte mean corpuscular volume [Entitic volume] by Auto mated count 95.2 fL 80-96 [facility] Erythrocyte mean corpuscular hemoglobin [Entitic mass] by Automated count 31.8 pg 27-33 [facility] Erythrocyte mean corpuscular hemoglobin concentration [Mass/volume] by Autom[facility] 33.4 g/[facility] width [Ratio] by Automated count 16.9 % 11.5-14.[address] [facility] Platelets [#/volume] in Blood by Automated count 176 10*3/uL 150-400 [facility] Differential cell count method - Blood [facility] Neutrophils/100 leukocytes in Blood by Automated count 49 % [facility] Lymphocytes/100 leukocytes in Blood by Automated count 35 % [facility] Monocytes/100 leukocytes in Blood by Automated count 9 % [facility] Eosinophils/100 leukocytes in Blood by Automated count 6 % [facility] Basophils/100 leukocytes in Blood by Automated count 1 % [facility] Neutrophils [#/volume] in Blood by Automated count 1.86 10*3/uL 1.8-[address] [facility] Lymphocytes [#/volume] in Blood by Automated count 1.35 10*3/uL 1.2-[address] [facility] Monocytes [#/volume] in Blood by Automated count 0.36 10*3/uL 0-0.8 [facility] Eosinophils [#/volume] in Blood by Automated count 0.24 10*3/uL 0-0.5 [facility] Basophils [#/volume] in Blood by Automated count 0.04 10*3/uL 0-0.2 [facility] Nucleated erythrocytes/100 leukocytes [Ratio] in Blood by Automated count 0 /100{WBCs} 0-0 [facility] ID Date Data Source [id number] 03/26/2020 05:12:31 AM [facility] Name Value Range Interpretation Code Description Data Ahzel rce(s) Supporting Document(s) Bicarbonate [Moles/volume] in Serum 26 mmol/L 22-29 [facility] Chloride [Moles/volume] in Serum or Plasma 97 mmol/L 98-[address] [facility] Creatinine [Mass/volume] in Serum or Plasma 0.97 mg/dL 0.70-1.20 [facility] Glucose [Mass/volume] in Serum or Plasma 183 mg/dL 70-[address] [facility] Potassium [Moles/volume] in Serum or Plasma 3.4 mmol/L 3.4-5.1 [facility] Sodium [Moles/volume] in Serum or Plasma 132 mmol/L 136-[address] [facility] Urea nitrogen [Mass/volume] in Serum or Plasma 5 mg/dL 6-[address] [facility] Anion gap 3 in Serum or Plasma 10 mmol/L 8-15 [facility] Osmolality of Serum or Plasma by calculation 276 mosm/kg 275-300 [facility] Creatinine/Urea nitrogen [Mass Ratio] in Serum or Plasma 5 [facility] Calcium [Mass/volume] in Serum or Plasma 7.7 mg/dL 8.6-10.[address] [facility] Glomerular filtration rate/1.73 sq M pre dicted among non-blacks [Volume Rate/Area] in Serum or Plasma by Creatinine-based formula (MDRD) >[address] [facility] Glomerular filtration rate/1.73 sq M pre dicted among blacks [Volume Rate/Area] in Serum or Plasma by Creatinine-based formula (MDRD) >60 [facility] ID Date Data Source [id number] 03/25/2020 10:10:13 PM [facility] Name Value Range Interpretation Code Description Data Hazel rce(s) Supporting Document(s) Glucose [Mass/volume] in Capillary blood by Glucometer 176 mg/dL 70- [address] [facility] ID Date Data Source [id number] 03/25/2020 09:23:03 PM [facility] Value Range Interpretation Code Description Data Hazel rce(s) Supporting Document(s) Glucose [Mass/volume] in Capillary blood by Glucometer 102 mg/dL 70- 140 [facility] ID Date Data Source [id number] 03/25/2020 10:31:20 PM [facility] Value Range Interpretation Code Description Data Hazel rce(s) Supporting Document(s) Leukocytes [#/volume] in Blood by Automated count 4.7 10*3/uL 4-10 [facility] Erythrocytes [#/volume] in Blood by Automated count 2.70 10*6/uL 4.6- 6.[address] [facility] Hemoglobin [Mass/volume] in Blood 8.7 g/dL 13.5-[address] [facility] Hematocrit [Volume Fraction] of Blood by Automated count 26.4 % 4 1-[address] [facility] Erythrocyte mean corpuscular volume [Entitic volume] by Auto mated count 97.9 fL 80-[address] [facility] Erythrocyte mean corpuscular hemoglobin [Entitic mass] by Automated count 32.3 pg 27-33 [facility] Erythrocyte mean corpuscular hemoglobin concentration [Mass/volume] by Automated count 33.0 g/[facility].0[facility] distribution width [Ratio] by Automated count 17.0 % 11.5-14.[address] [facility] Platelets [#/volume] in Blood by Automated count 180 10*3/uL 150-400 [facility] Differential cell count method - Blood [facility] Neutrophils/100 leukocytes in Blood by Automated count 65 % [facility] Lymphocytes/100 leukocytes in Blood by Automated count 30 % [facility] Monocytes/100 leukocytes in Blood by Automated count 2 % [facility] Eosinophils/100 leukocytes in Blood by Automated count 3 % [facility] Neutrophils [#/volume] in Blood by Automated count 3.09 10*3/uL 1.8-[address] [facility] Lymphocytes [#/volume] in Blood by Automated count 1.39 10*3/uL 1.2-[address] [facility] Monocytes [#/volume] in Blood by Automated count 0.09 10*3/uL 0-0.8 [facility] Eosinophils [#/volume] in Blood by Automated count 0.14 10*3/uL 0-0.5 [facility] Anisocytosis [Presence] in Blood by Light microscopy [facility] ID Date Data Source [id number] 03/25/2020 09:17:52 PM EDT [facility] Value Range Interpretation Code Description Data Hazel rce(s) Supporting Document(s) Glucose [Mass/volume] in Capillary blood by Glucometer 69 mg/dL 70- [address] [facility] ID Date Data Source [id number] 03/25/2020 05:28:47 PM [facility] Value Range Interpretation Code Description Data Hazel rce(s) Supporting Document(s) Glucose [Mass/volume] in Capillary blood by Glucometer 254 mg/dL 70- [address] [facility] ID Date Data Source [id number] 03/25/2020 12:55:23 PM EDT [facility] Name Value Range Interpretation Code Description Data Hazel rce(s) Supporting Document(s) Glucose [Mass/volume] in Capillary blood by Glucometer 161 mg/dL 70- [address] [facility] ID Date Data Source [id number] 03/25/2020 12:59:01 PM EDT [facility] Name Value Range Interpretation Code Description Data Hazel rce(s) Supporting Document(s) Leukocytes [#/volume] in Blood by Automated count 4.1 10*3/uL 4-10 [facility] Erythrocytes [#/volume] in Blood by Automated count 2.88 10*6/uL 4.6- 6.[address] [facility] Hemoglobin [Mass/volume] in Blood 9.0 g/dL 13.5-[address] [facility] Hematocrit [Volume Fraction] of Blood by Automated count 27.4 % 4 1-[address] [facility] Erythrocyte mean corpuscular volume [Entitic volume] by Auto mated count 95.2 fL 80-96 [facility] Erythrocyte mean corpuscular hemoglobin [Entitic mass] by Automated count 31.4 pg 27-33 [facility] Erythrocyte mean corpuscular hemoglobin concentration [Mass/volume] by Automated count 33.0 g/dL 32.0-36.[facility] distribution width [Ratio] by Automated count 16.9 % 11.5-14.[address] [facility] Platelets [#/volume] in Blood by Automated count 158 10*3/uL 150-400 [facility] Differential cell count method - Blood [facility] Neutrophils/100 leukocytes in Blood by Automated count 56 % [facility] Lymphocytes/100 leukocytes in Blood by Automated count 30 % [facility] Monocytes/100 leukocytes in Blood by Automated count 9 % [facility] Eosinophils/100 leukocytes in Blood by Automated count 4 % [facility] Basophils/100 leukocytes in Blood by Automated count 1 % [facility] Neutrophils [#/volume] in Blood by Automated count 2.28 10*3/uL 1.8-[address] [facility] Lymphocytes [#/volume] in Blood by Automated count 1.22 10*3/uL 1.2-[address] [facility] Monocytes [#/volume] in Blood by Automated count 0.37 10*3/uL 0-0.8 [facility] Eosinophils [#/volume] in Blood by Automated count 0.18 10*3/uL 0-0.5 [facility] Basophils [#/volume] in Blood by Automated count 0.03 10*3/uL 0-0.2 [facility] Nucleated erythrocytes/100 leukocytes [Ratio] in Blood by Automated count 0 /100{WBCs} 0-0 [facility] ID Date Data Source [id number] 03/25/2020 09:36:35 AM EDT [facility] Name Value Range Interpretation Code Description Data Hazel rce(s) Supporting Document(s) History and Physical [facility] LDZXMs4rRjLOQuOn75/UQYpoAYLxr9QaOTfiYFg6ZEjtOCJxU0FpNCK7xX6lEHC7XJxWNnTqZqMhReH3 lbm [file] VIS[employer] AND STOCK ASSOCIATE+Rw8ZXFHdHQd7G2S8QNOqXLe0Q1SKV0HHKEBgWOqsCYtxOTJfRPj3E2U1ZFOdN8SNU8Ehdkmukd7+ BA9BR13CIUIoJHm2Y7N0aQXfZ0F9vGjWhEW4SC3AOX1NoIo0dBVotH5+JK0GU1VQTqCoSYa8V5P6bWMm V1H5hPiNvBW7EB2NCC1QdZBrABTkmcHdHi0oX7BNPD iCPqNUCBK4NZ3EuRReNX1VeSWRQ6AuuHYoVe9aCIjqbIFmxQ5aVq0jDTcdJR4XElKZCApOFLF9QI7JjR HnED2OeLJDC6KghXDkBo0oSSzbvWIdga2+PM6NCDPyBr8GMv4+RCuabnByStdNRoB1FPQwt9JjOSg6MD 4JCQ6jrFzsIVB3Fj4ZnIH0uPKpD8tFGD2TjMQkM21f aADeHBCrEu3VCjL6dmGdsR9YBE24cJBhc2G5KRKeQ5zsUMonr70iZPxdLAiUAA8iXVZFWAfbSFmhYPP3 AlJumyytWFXhWb4IZkOfCWp1zD5jvTY0GDC0IzvhgDUbWXkvPxZkAdFuNoR7bBhwcox4NJkfUH2xGVtu czptZXRhLyc+VNqtSOHoLNSrTziOTUCykZ8mguQ1wr WcHXfxwWKaCg8jt4i1RcglEc0dEe5bKUl3NgSpWeKjIADwLm5egU66NOyxokLeTf4LRaDeMYN2X7LcTy pSREY+OCrtFUouaCl0kJGpOLJcOg8IZGVgGQRsJVItFYPnJNAtBLGxRSHjKSXhCQDeBBEyZZWySGWxEV AgICAgICAgICAgICAgICAgICAgICAgICAgICAgICAg NYTwTYMcXRYgMNJxJJAmUGKpAMYkWMRjMDJeWSTdKW4KVFElAYAzKAWmTHQkIQZyWYGrQUVrQPGiIDGw ICAgICAgICAgICAgICAgICAgICAgICAgICAgICAgICAgICAgICAgICAgICAgICAgICAgICAgICAgICAg KJWvXOXiILVxJXUoFU7ANHEiIFRbOHWzZNZuQLUzLK AgICAgICAgICAgICAgICAgICAgICAgICAgICAgICAgICAgICAgICAgICAgICAgICAgICAgICAgICAgIC OxWJXwCMFbMROxYEGkFSMoIOLnCEHxTM7DSCSeEYMtFLOkBTDyQRHuZPFjVZLaUKOiHBFsRMEmLTLqRW AgICAgICAgICAgICAgICAgICAgICAgICAgICAgICAg GSKvGFYjDHEwNJEgNNWqATJeUXJlCTQzSNCySGMkYMKrTA3ZRNEuGOJxHAMoZBMfCNQvAEAtTKXxRGSb ICAgICAgICAgICAgICAgICAgICAgICAgICAgICAgICAgICAgICAgICAgICAgICAgICAgICAgICAgICAg UWApRROvFARiZXSxUGKpPB7WTCBjDHQsJSWyDXFrCW AgICAgICAgICAgICAgICAgICAgICAgICAgICAgICAgICAgICAgICAgICAgICAgICAgICAgICAgICAgIC EzNROcPHTiZLJbVODlFQPuKXFiYDSdMUOuUP3NFQQbBSCqMWMsIZQgFQXfNEOnNTNkXCZdQJBxAARcSF AgICAgICAgICAgICAgICAgICAgICAgICAgICAgICAg QOTtMUMzBIOzLFWnGQUrTGIjFBIeVIHlFUScWWZpGXEfJVMbWU0ZZPYfDNCyZWEqVJQqPMXbQZCcAFLp ICAgICAgICAgICAgICAgICAgICAgICAgICAgICAgICAgICAgICAgICAgICAgICAgICAgICAgICAgICAg TTLsEZVpEOAvRJLbPKQeZYWdUU7EYEPlAQUgIKHbBZ AgICAgICAgICAgICAgICAgICAgICAgICAgICAgICAgICAgICAgICAgICAgICAgICAgICAgICAgICAgIC ZpJUFoRHIbPYEyTGEyPXTpWCFmMYLiGWAgQPUmQD8EXAFzZZPiIGNmNLCvMHPkNNRyJRAgOMGaXCVbGJ AgICAgICAgICAgICAgICAgICAgICAgICAgICAgICAg JDQfNOQgZBVxYCRrSQMxNOCoNDYlMSNfMFLlAIDbUJAiHLZtZLNrVC5CUK52iPEmn9E4IMSlNM0zsgz/ Xh8DWUygjgDelAYhSV8AUaHfGU5qyz5LNiZfEI1lcv5UTRlDHaNoM2Q5dHRmVASxPZHSWpAxE09tTIpb Hm34AQyjIJPjUwQsDAr0Mk9KQhYxZ4qmVOCfRsL3ZO ChUpK9SLWvYjG3JWLbTqFrSFuzVY2Bq1CbwYCwPUq+Fr2AJU6xh2ZkCExtYtGxOC6zec0ZLRcDOtXqA4 FjmqB3ORZ5PTBnHu5IGYTaBHXwcSWsVnHsDPMXRwLfO8AwqL59SRVMWr2+JZhnzmZpUecXRpG8UNMds9 RfOVv1LW6YABXjVCg6wUWxVLCHFJM4VG82fgliQ5zu EM4gFQ0TNLH1HSpsZZRhIrEhGOBmVKceGOGBYNnKLvDzU1Bec3NlEeX0SBVmBoUqSDgnBFBiJfC2WB29 sEpwXD6ITRDjGIIiHW85DZP9JCCyWi0HEt5EIhUpYW7nbc5JHbkqGEKiVnoBPcm9TOqvPH3XtZAzJ8Ou oLVwi2wNUzWlG1RBXJY4OSLuNg1WWJDwRsToOQWvCR yiQM7fOWStVLLWpHsgnzV7TH4DNX2nikLmZJ0AOiVtEj6lJx0GXzVpW7KkG4VjUVIvUERIEDgvII0DRM yeQN0qHB8Kd9XTzTAhlX1dtz7NJQVfHBZoBqdxox9GGsonX5K5dImnWLImVqMyENRCUSozDM8IGCYdZT N0JRHmGEOgQVTCRmBkN84rAB8WF9Uhv32wKgZ0UDFf McBuKTopRS76wRksztDaqZYkzOdtXQ0LFb0+DQplbmRvYmoNCnhyZWYNCjAgMjkNCjAwMDAwMDAwMDAg DhF2NqYyXq9CTYTzBBJvIOVqFrBoFXZyOLPeVXxsNPBxRNA4AuA6GHKuHQFaZS6MHuYaBBPiChovCHEx LJLcTGOukb9WRXCoJOFxUVG2DzEwHUGfHLPiOVleRM JjCWSsUrEjLZTvJLAgMP9LNaDqGCQbQKK8BpIwFMFeWJLubt4OLNHjKZTzPaX1LqCyMOAmPERgMMvsXY UdBTL6JKe6AUShDNAzGB5CAnVpUGAsSJzmCSksFAExTIRmme4ESQWrBHHrQKEyBEJnZGFiAHHqKWpbMP LoMLXrVyZmXGQpUGJtBO7YMnJyILMeJYE3YFeuRKUs WUDpnl4ZGIBzJABaNJJ0YAMzQYUxYDIvTGnuFYXfAQMkHsBkYQSmQVHtFY1WZtNsXIYyTDP5MOVeAMIk NXGxri0XNQUvYSLfBIe2SYAyQIPqCFXhKBvyOAVwRUDlAhq2KTSjPPHuYZ4MPvAxQYQyCiO8SQRaYBSn UORume2AQIVbPAVrSujmWvJhRGGkVRIpIUvmNTDaVS F9ONNwEHTzMVVrTB1NFkMuCCYsIcYnNHjxPNOwFIFakl1FCBWnPUOqIGVfASRaKAAoUMVqMLrlBMYbPQ B2RYL0BRXjSQJgNE7PVyBdPWPwGwJ4LDgvDSFgTYMdzy5XZHSmJTRbKpZbZUZoNQOjHWYdOXkwYHDxYV E8PKK2XJBoRQOyXJ7BZzTvCEUxMst8FaUnCPXbRCTt ez4XNRJcDGHwKuL2YGIbKVMjZZYaAXf1bhHmlBJvNIt8WW0EM1HtujSwIetGFk1Rk397FRQ6CEUkOx6O Q5tjNr7hZBTxVBIPEk1ZRQu5NWczWQHlJXE7UTUgRSU9IPSpU9J6GzWkR7HvOeIsNWK+IDxlOWRkZGE4 ZFb0DHAwSbH9NWQvZSzgKGNaVPUdDOUsDa2xRPFUKm3+FUdoxEOxdLggSGQLPiF5FSUdHJdzSHBKEd1E ID Date Data Source [id number] 03/25/2020 03:27:07 AM [facility] Name Value Range Interpretation Code Description Data Hazel rce(s) Supporting Document(s) Leukocytes [#/volume] in Blood by Automated count 4.6 10*3/uL 4-10 [facility] Erythrocytes [#/volume] in Blood by Automated count 3.24 10*6/uL 4.6- 6.[address] [facility] Hemoglobin [Mass/volume] in Blood 10.3 g/dL 13.5-[address] [facility] Hematocrit [Volume Fraction] of Blood by Automated count 30.9 % 4 1-[address] [facility] Erythrocyte mean corpuscular volume [Entitic volume] by Auto mated count 95.3 fL 80-96 [facility] Erythrocyte mean corpuscular hemoglobin [Entitic mass] by Automated count 31.7 pg 27-33 [facility] Erythrocyte mean corpuscular hemoglobin concentration [Mass/volume] by Automated count 33.3 g/dL 32.0-36.[facility]th[facility] distribution width [Ratio] by Automated count 17.3 % 11.5-14.[address] [facility] Platelets [#/volume] in Blood by Automated count 185 10*3/uL 150-400 [facility] Differential cell count method - Blood [facility] Neutrophils/100 leukocytes in Blood by Automated count 50 % [facility] Lymphocytes/100 leukocytes in Blood by Automated count 34 % [facility] Monocytes/100 leukocytes in Blood by Automated count 9 % [facility] Eosinophils/100 leukocytes in Blood by Automated count 6 % [facility] Basophils/100 leukocytes in Blood by Automated count 1 % [facility] Neutrophils [#/volume] in Blood by Automated count 2.31 10*3/uL 1.8-[address] [facility] Lymphocytes [#/volume] in Blood by Automated count 1.55 10*3/uL 1.2-[address] [facility] Monocytes [#/volume] in Blood by Automated count 0.41 10*3/uL 0-0.8 [facility] Eosinophils [#/volume] in Blood by Automated count 0.27 10*3/uL 0-0.5 [facility] Basophils [#/volume] in Blood by Automated count 0.03 10*3/uL 0-0.2 [facility] Nucleated erythrocytes/100 leukocytes [Ratio] in Blood by Automated count 0 /100{WBCs} 0-0 [facility] ID Date Data Source [id number] 03/25/2020 04:12:49 AM EDT [facility] Name Value Range Interpretation Code Description Data Hazel rce(s) Supporting Document(s) Bicarbonate [Moles/volume] in Serum 26 mmol/L 22-29 [facility] Chloride [Moles/volume] in Serum or Plasma 93 mmol/L 98-[address] [facility] Creatinine [Mass/volume] in Serum or Plasma 0.92 mg/dL 0.70-1.20 [facility] Glucose [Mass/volume] in Serum or Plasma 224 mg/dL 70-[address] [facility] Potassium [Moles/volume] in Serum or Plasma 3.4 mmol/L 3.4-5.1 [facility] Sodium [Moles/volume] in Serum or Plasma 130 mmol/L 136-[address] [facility] Urea nitrogen [Mass/volume] in Serum or Plasma 7 mg/dL 6-20 [facility] Anion gap 3 in Serum or Plasma 11 mmol/L 8-15 [facility] Osmolality of Serum or Plasma by calculation 274 mosm/kg 275-[address] [facility] Creatinine/Urea nitrogen [Mass Ratio] in Serum or Plasma 7 [facility] Calcium [Mass/volume] in Serum or Plasma 8.4 mg/dL 8.6-10.[address] [facility] Glomerular filtration rate/1.73 sq M pre dicted among non-blacks [Volume Rate/Area] in Serum or Plasma by Creatinine-based formula (MDRD) >[address] [facility] Glomerular filtration rate/1.73 sq M pre dicted among blacks [Volume Rate/Area] in Serum or Plasma by Creatinine-based formula (MDRD) >60 [facility] ID Date Data Source [id number] 03/24/2020 08:42:55 PM [facility] Name Value Range Interpretation Code Description Data Hazel rce(s) Supporting Document(s) Glucose [Mass/volume] in Capillary blood by Glucometer 344 mg/dL 70- [address] [facility] ID Date Data Source [id number] 03/24/2020 07:48:30 PM [facility] Name Value Range Interpretation Code Description Data Hazel rce(s) Supporting Document(s) Leukocytes [#/volume] in Blood by Automated count 4.4 10*3/uL 4-10 [facility] Erythrocytes [#/volume] in Blood by Automated count 2.86 10*6/uL 4.6- 6.1 [facility] Hemoglobin [Mass/volume] in Blood 9.0 g/dL 13.5-[address] [facility] Hematocrit [Volume Fraction] of Blood by Automated count 27.5 % 4 1-53 [facility] Erythrocyte mean corpuscular volume [Entitic volume] by Auto mated count 96.2 fL 80-[address] [facility] Erythrocyte mean corpuscular hemoglobin [Entitic mass] by Automated count 31.5 pg 27-33 [facility] Erythrocyte mean corpuscular hemoglobin concentration [Mass/volume] by Automated count 32.8 g/dL 32.0-36.0 [facility] E[facility]throcyte distribution width [Ratio] by Automated count 17.1 % 11.5-14.[address] [facility] Platelets [#/volume] in Blood by Automated count 155 10*3/uL 150-400 [facility] Differential cell count method - Blood [facility] Neutrophils/100 leukocytes in Blood by Automated count 57 % [facility] Lymphocytes/100 leukocytes in Blood by Automated count 29 % [facility] Monocytes/100 leukocytes in Blood by Automated count 8 % [facility] Eosinophils/100 leukocytes in Blood by Automated count 5 % [facility] Basophils/100 leukocytes in Blood by Automated count 1 % [facility] Neutrophils [#/volume] in Blood by Automated count 2.60 10*3/uL 1.8-[address] [facility] Lymphocytes [#/volume] in Blood by Automated count 1.27 10*3/uL 1.2-[address] [facility] Monocytes [#/volume] in Blood by Automated count 0.34 10*3/uL 0-0.8 [facility] Eosinophils [#/volume] in Blood by Automated count 0.21 10*3/uL 0-0.5 [facility] Basophils [#/volume] in Blood by Automated count 0.02 10*3/uL 0-0.2 [facility] Nucleated erythrocytes/100 leukocytes [Ratio] in Blood by Automated count 0 /100{WBCs} 0-0 [facility] ID Date Data Source [id number] 03/24/2020 05:59:57 PM EDT [facility] Name Value Range Interpretation Code Description Data Hazel rce(s) Supporting Document(s) Glucose [Mass/volume] in Capillary blood by Glucometer 186 mg/dL 70- [address] [facility] ID Date Data Source [id number] 03/24/2020 12:39:27 PM EDT [facility] Name Value Range Interpretation Code Description Data Hazel rce(s) Supporting Document(s) Glucose [Mass/volume] in Capillary blood by Glucometer 263 mg/dL 70- [address] [facility] ID Date Data Source [id number] 03/24/2020 11:21:35 AM EDT [facility] Name Value Range Interpretation Code Description Data Hazel rce(s) Supporting Document(s) Leukocytes [#/volume] in Blood by Automated count 4.4 10*3/uL 4-10 [facility] Erythrocytes [#/volume] in Blood by Automated count 3.29 10*6/uL 4.6- 6.[address] [facility] Hemoglobin [Mass/volume] in Blood 10.3 g/dL 13.5-[address] [facility] Hematocrit [Volume Fraction] of Blood by Automated count 31.6 % 4 1-[address] [facility] Erythrocyte mean corpuscular volume [Entitic volume] by Auto mated count 95.9 fL 80-96 [facility] Erythrocyte mean corpuscular hemoglobin [Entitic mass] by Automated count 31.4 pg 27-33 [facility] Erythrocyte mean corpuscular hemoglobin concentration [Mass/volume] by Automated count 32.7 g/dL 32.0-36.0 [facility] width [Ratio] by Automated count 17.1 % 11.5-14.[address] [facility] Platelets [#/volume] in Blood by Automated count 160 10*3/uL 150-400 [facility] Differential cell count method - Blood [facility] Neutrophils/100 leukocytes in Blood by Automated count 66 % [facility] Lymphocytes/100 leukocytes in Blood by Automated count 22 % [facility] Monocytes/100 leukocytes in Blood by Automated count 7 % [facility] Eosinophils/100 leukocytes in Blood by Automated count 5 % [facility] Basophils/100 leukocytes in Blood by Automated count 0 % [facility] Neutrophils [#/volume] in Blood by Automated count 2.89 10*3/uL 1.8-[address] [facility] Lymphocytes [#/volume] in Blood by Automated count 0.96 10*3/uL 1.2-[address] [facility] Monocytes [#/volume] in Blood by Automated count 0.31 10*3/uL 0-0.8 [facility] Eosinophils [#/volume] in Blood by Automated count 0.20 10*3/uL 0-0.5 [facility] Basophils [#/volume] in Blood by Automated count 0.02 10*3/uL 0-0.2 [facility] Nucleated erythrocytes/100 leukocytes [Ratio] in Blood by Automated count 0 /100{WBCs} 0-0 [facility] ID Date Data Source [id number] 03/24/2020 08:52:00 AM EDT [facility] Name Value Range Interpretation Code Description Data Hazel rce(s) Supporting Document(s) History and Physical [facility] [id number]/CWIyoCHQzn9NrRCqrBEp4AFphJLXwB1LtKDU1bP2yRQN6ASuDJfYqOjZbTcV0 lbm UxHciREvQvDXTfPjmRKjBlFRshUlplaZDhGR8DmIV1QRHbQ13uRTZzQLUpL1VqUYKhFxO+Yb6AROGpcC VdGV5QRpdO7Gyps+O48XuB/mqHLP1fBW+VdgYZCV25jrFPxyg3rOyCv28/aG0lUc+4qvT359wvp143sA gC7Oq7kj85VI9ApTfksttyYJzQh0+nW6hydoCe//MOVIE WRITER [file] [id number] ID Date Data Source [id number] 03/24/2020 08:50:26 AM EDT [facility] Name Value Range Interpretation Code Description Data Hazel rce(s) Supporting Document(s) [facility] BLECYj8mQfVLXsWzh9IoRgIeLIDtLH1ydki0S3P1hMKhO6KwlAMts6ttI3WjT6KmALDlRFLWFF3DoSAy jb2 [file] /kh9pTW/+HIGHWAY MAINTAINER+1CTiv/iVsoquGmD4tsPuVbJXVL368bnTnglXv7iKd0/2dB590QFMG99R5xbVewmFcXUB [file] EwP/7soxP/nTmPEOYF2liW2iao5atYZ5exLUmb3qvl594LNJiXl/lUeJj749hrP/HIGHWAY MAINTAINER/xnQqZpuiUAf9n [file] NSAwIFIKCj4+HvP7ACD3uTPxWgt0FdL7ZsceGCLRBc== ID Date Data Source [id number] 03/24/2020 08:30:51 AM EDT [facility] Name Value Range Interpretation Code Description Data Hazel rce(s) Supporting Document(s) Glucose [Mass/volume] in Capillary blood by Glucometer 106 mg/dL 70- 140 [facility] ID Date Data Source [id number] 03/24/2020 04:16:30 AM [facility] Name Value Range Interpretation Code Description Data Hazel rce(s) Supporting Document(s) Bicarbonate [Moles/volume] in Serum 28 mmol/L 22-29 [facility] Chloride [Moles/volume] in Serum or Plasma 97 mmol/L 98-[address] [facility] Creatinine [Mass/volume] in Serum or Plasma 0.83 mg/dL 0.70-1.20 [facility] Glucose [Mass/volume] in Serum or Plasma 85 mg/dL 70-140 [facility] Potassium [Moles/volume] in Serum or Plasma 3.1 mmol/L 3.4-5.[address] [facility] Sodium [Moles/volume] in Serum or Plasma 131 mmol/L 136-[address] [facility] Urea nitrogen [Mass/volume] in Serum or Plasma 8 mg/dL 6-20 [facility] Anion gap 3 in Serum or Plasma 7 mmol/L 8-15 [facility] Osmolality of Serum or Plasma by calculation 270 mosm/kg 275-[address] [facility] Creatinine/Urea nitrogen [Mass Ratio] in Serum or Plasma 10 [facility] Calcium [Mass/volume] in Serum or Plasma 8.0 mg/dL 8.6-10.0 [facility] Glomerular filtration rate/1.73 sq M pre dicted among non-blacks [Volume Rate/Area] in Serum or Plasma by Creatinine-based formula (MDRD) >[address] [facility] Glomerular filtration rate/1.73 sq M pre dicted among blacks [Volume Rate/Area] in Serum or Plasma by Creatinine-based formula (MDRD) >60 [facility] ID Date Data Source [id number] 03/24/2020 02:48:40 AM [facility] Name Value Range Interpretation Code Description Data Hazel rce(s) Supporting Document(s) Leukocytes [#/volume] in Blood by Automated count 4.5 10*3/uL 4-10 [facility] Erythrocytes [#/volume] in Blood by Automated count 2.76 10*6/uL 4.6- 6.1 [facility] Hemoglobin [Mass/volume] in Blood 8.8 g/dL 13.5-[address] [facility] Hematocrit [Volume Fraction] of Blood by Automated count 26.1 % 4 1-[address] [facility] Erythrocyte mean corpuscular volume [Entitic volume] by Auto mated count 94.4 fL 80-96 [facility] Erythrocyte mean corpuscular hemoglobin [Entitic mass] by Automated count 31.8 pg 27-33 [facility] Erythrocyte mean corpuscular hemoglobin concentration [Mass/volume] by Automated count 33.7 g/[facility] width [Ratio] by Automated count 16.8 % 11.5-14.[address] [facility] Platelets [#/volume] in Blood by Automated count 137 10*3/uL 150-[address] [facility] Differential cell count method - Blood [facility] Neutrophils/100 leukocytes in Blood by Automated count 54 % [facility] Lymphocytes/100 leukocytes in Blood by Automated count 32 % [facility] Monocytes/100 leukocytes in Blood by Automated count 8 % [facility] Eosinophils/100 leukocytes in Blood by Automated count 5 % [facility] Basophils/100 leukocytes in Blood by Automated count 1 % [facility] Neutrophils [#/volume] in Blood by Automated count 2.44 10*3/uL 1.8-[address] [facility] Lymphocytes [#/volume] in Blood by Automated count 1.44 10*3/uL 1.2-[address] [facility] Monocytes [#/volume] in Blood by Automated count 0.34 10*3/uL 0-0.8 [facility] Eosinophils [#/volume] in Blood by Automated count 0.23 10*3/uL 0-0.5 [facility] Basophils [#/volume] in Blood by Automated count 0.03 10*3/uL 0-0.2 [facility] Nucleated erythrocytes/100 leukocytes [Ratio] in Blood by Automated count 0 /100{WBCs} 0-0 [facility] ID Date Data Source [id number] 03/24/2020 03:06:37 AM EDT [facility] Name Value Range Interpretation Code Description Data Hazel rce(s) Supporting Document(s) Bicarbonate [Moles/volume] in Serum 27 mmol/L 22-29 [facility] Chloride [Moles/volume] in Serum or Plasma 100 mmol/L 98-107 [facility] Creatinine [Mass/volume] in Serum or Plasma 0.80 mg/dL 0.70-1.20 [facility] Glucose [Mass/volume] in Serum or Plasma 80 mg/dL 70-140 [facility] Potassium [Moles/volume] in Serum or Plasma 3.3 mmol/L 3.4-5.[address] [facility] Hemolyzed Sodium [Moles/volume] in Serum or Plasma 136 mmol/L 136-145 [facility] Urea nitrogen [Mass/volume] in Serum or Plasma 8 mg/dL 6-20 [facility] Anion gap 3 in Serum or Plasma 9 mmol/L 8-15 [facility] Osmolality of Serum or Plasma by calculation 279 mosm/kg 275-300 [facility] Creatinine/Urea nitrogen [Mass Ratio] in Serum or Plasma 10 [facility] Calcium [Mass/volume] in Serum or Plasma 7.5 mg/dL 8.6-10.[address] [facility] Glomerular filtration rate/1.73 sq M pre dicted among non-blacks [Volume Rate/Area] in Serum or Plasma by Creatinine-based formula (MDRD) >[address] [facility] Glomerular filtration rate/1.73 sq M pre dicted among blacks [Volume Rate/Area] in Serum or Plasma by Creatinine-based formula (MDRD) >60 [facility] ID Date Data Source [id number] 03/23/2020 09:34:51 PM [facility] Value Range Interpretation Code Description Data Hazel rce(s) Supporting Document(s) Glucose [Mass/volume] in Capillary blood by Glucometer 319 mg/dL 70- [address] [facility] ID Date Data Source [id number] 03/23/2020 09:34:51 PM [facility] Value Range Interpretation Code Description Data Hazel rce(s) Supporting Document(s) Glucose [Mass/volume] in Capillary blood by Glucometer 330 mg/dL 70- [address] [facility] ID Date Data Source [id number] 03/23/2020 07:46:22 PM [facility] Value Range Interpretation Code Description Data Hazel rce(s) Supporting Document(s) [facility] LMMDTo9hPmCJZvSa84/CSZepUGTnl8SnBMakKRn5EQrnFULxY2MmTSS5cM6cOML3RTrROhJtKaRqTkLi lbm [file] AgICAgICAgICAgICAgICAgICAgICAgICAgICAgICAg UCSeQXWlCTFaMBAgKWQcZPHrISFkUZHfXUUbINVfBUFbIXHzGQHhXBUhJE6NTGBkNPOiDYMsMKOpJNYa ICAgICAgICAgICAgICAgICAgICAgICAgICAgICAgICAgICAgICAgICAgICAgICAgICAgICAgICAgICAg LBQdEPVjELDlODVaVVHbHRWoULGgEVKeSS7LOZUoJG AgICAgICAgICAgICAgICAgICAgICAgICAgICAgICAgICAgICAgICAgICAgICAgICAgICAgICAgICAgIC YoUUUhPBVlKIJnDNHySFZdOOOkTBMrVVBfQVChJZAjFABjXA8SVKEwOZImZRYoIGXxPGSdSUWjLBVjVY AgICAgICAgICAgICAgICAgICAgICAgICAgICAgICAg PARjXKRmHUMlCTNuDWXvIYAlTKRgMDHrGDIpCDHiMMLhVQDkNPRdHRLmJVIwOG0PGGJwRTXvEIOjPRDu ICAgICAgICAgICAgICAgICAgICAgICAgICAgICAgICAgICAgICAgICAgICAgICAgICAgICAgICAgICAg VNJhTUIxASBhRHQrBXHeEZQqAINwBCBgLPLnXV6ZUM AgICAgICAgICAgICAgICAgICAgICAgICAgICAgICAgICAgICAgICAgICAgICAgICAgICAgICAgICAgIC TdIKWrGWXaXJHcCZWnFMLnAUXnYFKuYBJuAYXjJFYySSUvNDAmBN6TUYUhJMAxFWYqWOCsNGJmWLLpBI AgICAgICAgICAgICAgICAgICAgICAgICAgICAgICAg CECvQIIkFYFiOGKgUXFpBPShYRXxNJCqQXCzXGYpNQFcMRPwHEAzLWCuPNDfNRRlMN8QRQNnEIHvDRRv ICAgICAgICAgICAgICAgICAgICAgICAgICAgICAgICAgICAgICAgICAgICAgICAgICAgICAgICAgICAg ICAgICAgICAgICAgICAgICAgICAgICAgICAgICAgIA 0KICAgICAgICAgICAgICAgICAgICAgICAgICAgICAgICAgICAgICAgICAgICAgICAgICAgICAgICAgIC CyMYSrBVEdOXFuIMNbHCNoMBHdLOUxMGBvSASjFQNdKGGsUQNsPQLxZR8ZLVIpHPFnMVBhGOHzAZYjXG AgICAgICAgICAgICAgICAgICAgICAgICAgICAgICAg GICeOOBpLPUpOAMoEDLwBCUoGAJdBIWmTGIyADWyRWYsVWPlPNOrAWYuFKEnWWGuPRAgZG0ERY69pXPx q8Z0AZPvQU8dqyy/Dx9XPVkupcJuzEIxWN2ACvByCA0jdl7WGvIbDR7wyv6RYZuAWuAvR0X9eZIrVRNg XOHIGiTaY11aNVxxTw01LRtkSWWzRiHhKOa3Zx9NLv BdP3edBUWzVmG3DVBcGxJ7SYIjSnU4IYEeAqQaWTZmZYBnHLCvMIPHEXK6MXQeIlPsUmIqPDXjEE1CLP WnG307pvArFl0NCo1UAtGdNF0mpt5UWJIrGVEoKoxNQvq8VUmjVJ8HfFVwjRH5VYHdUSSPAaOfY1cfe7 JlPEHnRUTIIRvmUR4Ej6PqsALlGEd+Oo6GHS8aa8Og GVt1HDBqMY4yzt8QTYvQUoFoV7SiiPjvEBDanpW8aEAlCDD5AVNuLEUaesCYpEbuvTYqUGNAJTFxcOW7 WuGtGqZcQgAqQLK3UZKbBC7vOGfoJU9QJME7QYiuXALgFFFaS3cCBiHcXWPqOzXjnQlyDF6SCjTuF6Xn ylIvpCE9RZXdJGLXNa5+DQplbmRvYmoNCjQyIDAgb2 LgLNe4WB9EDUGwMKwaYB4JAGKhtD2lFFrhUB2HOzBpMJIhFXHEDyIiH85haANbSAg5X7KcXhXvUREdUv lsZXMgPDwvTmFtZXMgWyBdDQogID4+ID4+EAnfLT0EHFuhyqRtKUGcAr6JZEJjQFJyDS2fUQQsKTDtX1 F0yGygUVQYPdIdZ3swbdxaPV6fZMDiR166fAahteBe YXIaZPZrBf6VVFZaYAU5OLLnxDNlJvxeCMWSGCjqZG9BpLQeDKV4yP6eGEkdFWZeYKVvO7hHDvDzeNwa YP75cIccxxWqnFPdOUw+Uu1SNE0gu4TjPTc8ibEhPVmrLONjBMnwSOKhIRHkAIOjJDZ4BKB6ODRWJxPp MXTtWQSiKUzqDQUoSOOrau7VJRRxLGA4BCH8McKfFO OuOEJlPAszPAYbKYDaQHU1WTOwHMEhYG1OWpSiXNQvBPOoAIplWZPeQMScrc5TLLKbUSRtJaM5NjTmAW UlSTNkCHhnMVLuHJFvGBojYVOxKUYkBS6NHzSkAZKcCQZ6NfNsZCJjXPMjfd3WGLJsAAPmJsX6YCUyBW UpEMJsFQvjDXInGGBgMiZoSNVyUEUzDJ9OOrBqGFHl VAT5VhQcEMYnFLUnov4WTQClUSQyKFYaFKWkDEIbTHCvQCcuYKCtPWR6SaU4QTWpSGKgVT5QHpCbYGPl WDK4RqprDUJiUUYvvc0WFBGlJJTvJxC5KFYkYXVjKJXoVAzoFMUwQOWtNvK7AQTvRRMiZH1CToWfOQJp WaJ7OCMrNRHeROUkxu7ERQRdAARzDIeiSMMoXVLlSS CdMYacWSLpUNQwFCV6WEXjWPClGD1MKdJuKUMfWzUlWVOnTTAvAPOful6UWGLnJSIxZtZeMtSzSKXaYY WdZUqbGQTiJIBdQxb6VMRcRZYzDJ5HSvKnLNFnRyMbISBpCXIfWLEegw2WGLKeDGGvBPQ9ZmTuRHTxNY UcAHakJUSoVVF9XsM2DIMqKPPrXR4KAoXxFUQbRaD8 HBMkIXIgECHzde9QCHLeSYGxSCd3JHOyEWRcSOVlQJpaHTNcLLL8THdnCXSiOJLiRI8SXuTrALLkBpjd IFHiQGUiUPSrot7SXHXvHQHoBjZ6NOMfHEUuTHAhIQmsKSFaYKA3SSKhFKBrQILqHK4CEqNaVCVuQua1 YSsaPBSfTKBoeg9KDXKkALDkTVOcHwNlKIIzSYXaQM umHCRoYAU2RxD3WXZlRLExAK6YHtXrANZvYdd0ZiXpBXRpPAUtbh1ZAGUtKZSvEDfkKFXxKAVwOIMcIW zeNKQyLHMjWzI1NFEhLYRaND0OFuYqHRUzEYC4QJSvIGTcRBJlze1HMRZyTNY2ZMZzSKKoSHCkBGHqCV viFUChVSXcHMw5XRFkCFIjMK8DNnPbCEVuLIF0HPev HLAgFFRhhq3BGJWcDOL1MkVrUIUxWCIePVVlHPgzTGIsWSUaWKgzUVWrOBTpFM2NTuKvBXlfGZAENpd8 TLnkX6i5ISC5Hz0ES4Gja8YpHDImCGVBVLzjZZ8umpCkRSQkSm9DI1pXJkitA8T2O0F7MZZ8ZYKnSSTo ACA3FZXiYLLsXnF8Q8X4DE6oHXNsZGBaTexqHtU6AD FzP2YiFFVzUCLlTKTrYdKhQOQyFxKhWA8FPi5HNzN4SLB7lCCsYb3FRVX3HVCLPzJxBY2LGIo= ID Date Data Source [id number] 03/23/2020 07:09:44 PM EDT [facility] Name Value Range Interpretation Code Description Data Hazel e(s) Supporting Document(s) Leukocytes [#/volume] in Blood by Automated count 5.4 10*3/uL 4-10 [facility] Erythrocytes [#/volume] in Blood by Automated count 2.89 10*6/uL 4.6- 6.[address] [facility] Hemoglobin [Mass/volume] in Blood 9.2 g/dL 13.5-[address] [facility] Hematocrit [Volume Fraction] of Blood by Automated count 27.4 % 4 1-[address] [facility] Erythrocyte mean corpuscular volume [Entitic volume] by Auto mated count 94.7 fL 80-96 [facility] Erythrocyte mean corpuscular hemoglobin [Entitic mass] by Automated count 31.8 pg 27-33 [facility] Erythrocyte mean corpuscular hemoglobin concentration [Mass/volume] by Automated count 33.5 g[facility].0[facility] width [Ratio] by Automated count 16.8 % 11.5-14.[address] [facility] Platelets [#/volume] in Blood by Automated count 130 10*3/uL 150-[address] [facility] Differential cell count method - Blood [facility] Neutrophils/100 leukocytes in Blood by Automated count 71 % [facility] Lymphocytes/100 leukocytes in Blood by Automated count 20 % [facility] Monocytes/100 leukocytes in Blood by Automated count 6 % [facility] Eosinophils/100 leukocytes in Blood by Automated count 3 % [facility] Basophils/100 leukocytes in Blood by Automated count 0 % [facility] Neutrophils [#/volume] in Blood by Automated count 3.84 10*3/uL 1.8-[address] [facility] Lymphocytes [#/volume] in Blood by Automated count 1.08 10*3/uL 1.2-[address] [facility] Monocytes [#/volume] in Blood by Automated count 0.35 10*3/uL 0-0.8 [facility] Eosinophils [#/volume] in Blood by Automated count 0.15 10*3/uL 0-0.5 [facility] Basophils [#/volume] in Blood by Automated count 0.02 10*3/uL 0-0.2 [facility] Nucleated erythrocytes/100 leukocytes [Ratio] in Blood by Automated count 0 /100{WBCs} 0-0 [facility] ID Date Data Source [id number] 03/23/2020 06:06:54 PM EDT [facility] Name Value Range Interpretation Code Description Data Hazel rce(s) Supporting Document(s) Glucose [Mass/volume] in Capillary blood by Glucometer 76 mg/dL 70- 140 [facility] ID Date Data Source [id number] 03/23/2020 04:31:15 PM [facility] Name Value Range Interpretation Code Description Data Hazel rce(s) Supporting Document(s) [facility] RGEGNq0uCfPOGiVe13/ILCifOTSrb5GuVLpxHLg8ZSkjZEMzD6MqVDU8qI7hJUI1XScWHvDsGhCgGdWu lbm [file] ICAgICAgICAgICAgICAgICAgICAgICAgICAgICAgIC XfRSPbWXYiSVRkIZTxSAGcKGOhFUTpMIDxBRTaQZKwRWRjWNCpDKOkIKPrCZ6ZPXLdDSGsHNUyARLpDL AgICAgICAgICAgICAgICAgICAgICAgICAgICAgICAgICAgICAgICAgICAgICAgICAgICAgICAgICAgIC FsCTOnXPEcTCRrIOPdKDLlCZTpJUCyFJIyZY0PTYHo ICAgICAgICAgICAgICAgICAgICAgICAgICAgICAgICAgICAgICAgICAgICAgICAgICAgICAgICAgICAg JHPnWEGmVFMpSFMeGFCbRDWoMSOtMULkHFQcCBLhJGZgLMKdQL6ECDStWXShTOPrGJJuOFTzIYYgCXPy ICAgICAgICAgICAgICAgICAgICAgICAgICAgICAgIC SlSBElMSEpLIAcOGVwEJIfMBJlLMCwKJZjQIKdSBMkEGNhGSSoOMWnJPXcZAMkJG2OFECwUIKtAEQrZA AgICAgICAgICAgICAgICAgICAgICAgICAgICAgICAgICAgICAgICAgICAgICAgICAgICAgICAgICAgIC UmEHYrWDLlKNCvMCRgFMJpDWPxRBNsRJZyOGBfSX1M ICAgICAgICAgICAgICAgICAgICAgICAgICAgICAgICAgICAgICAgICAgICAgICAgICAgICAgICAgICAg FTDlEEIhIBUtYKRhLHAdONXmRMJcIJPkIDHmUBHhJUIlNIZxPKAkRG5TYPCjEDZsZPApIKHqZSNlCGUx ICAgICAgICAgICAgICAgICAgICAgICAgICAgICAgIC XyQKCvYXPrZKOgPGEdKCSdHJMrEWAkBFEuTWQlYQDwQJNxQMDiYXXmMPZnZVObRKZjMT7QUJZuJRWpWA AgICAgICAgICAgICAgICAgICAgICAgICAgICAgICAgICAgICAgICAgICAgICAgICAgICAgICAgICAgIC AgICAgICAgICAgICAgICAgICAgICAgICAgICAgICAg NI7MBAKqYFRsUBTwFJSaRNLaCUGyLFTzBYJdCNBjDXInOBZpAEHuHIZvNOBfLPVlWMUuUWPyHNYwZLWc NEWmRGVuHMEwMUToQBScAAZrAXEjZJTfIQPuHDNcTPAxVAHhIPGkIOHrDQ5UUZYxFIQaHPFdMTGzAJDm ICAgICAgICAgICAgICAgICAgICAgICAgICAgICAgIC PbBYJjZXCmWMKmFGCqHTJgHPWfVLBsWTFvRGWkZTTaUPCuJNRlRXEwLPOyQALaWHQjPJRcBZ9YTJ51vP Fgl9W3XXRzSE6sroq/Ux0NVQorgwGjiSArMT4EZmGzSL5fjc8FWmAnLZ5xbx6ZHQkGHuRdT7L7sTDbAR TdEFEUBmGfV65kZPohNa88QShpUWKhKeFlSKp8Tl2I JqSlQ9opCTIqHlK5LSMsGyL8ANFmWoH5FSZgWeIiYYIeSSUwJOFbMRPLMQY1NPYrUsFhWcAkBJMwCI9Z XWDtQ962ngOdGw9JWf7RGkTsPM7nxw1QXuDnQMXjZsePIfh2BZgdRQ4IvQYvwQKfXxPoCZCCOyFoC6ev l8JnVbJfFCIOETgjSB8Cr5ZsaAEfTCv+Pi3CJH5tm7 FxJJbaJwNbEY7axe2GGEqNXvJaI0GzcPbzQWOietY4dXWgQFM0NQVwycgrmCoqGP9cIn1tkDunHVnmDZ 5KKgJacKH3MrVzBnIyObRwMHX7HXuoCH4cWUumAO0KLDM4UFapZGOiRHXyI2gSFxFhXFEoBqFatImjEY 1OTxBmY3KtijZdhSPzXIYxUMZHPo5+DQplbmRvYmoN GmRwBAMrv3PwANg2GX9DJWXtRHaaYC3OPJGqdS4gJNbzIY6NLdToWUVeUFXQMjQdV29ntMUjICm9Z7Ox YmVkZGVkRmlsZXMgPDwvTmFtZXMgWyBdDQogID4+ID4+ZViaFL7TEMxendMzDLCoJw0TBYYlLMDqTQ1h NOYjRVEzR2O7bGyzBSLUVrNzK7ywhyraUG1dCSEvM4 62hDxtufBuPWTgHWSxDt8PMMKxJJU2BBVsyPIwXhJpZUKGIEczXJ1GoDSiOMO8rH0zURqmZPRdPVIwV5 lMUqJykBhgYP87vQqpczGgbHClIVf+Qg2WOA3pp2CnRXs6wcGyJMhbAQE2TUcuLWJuCMTcIFRzRCP6JR D6CKQTMlJnANKdVQFrAXqhCEZcQJTcmg2CMDCiLIOn OjAfQpJfBJCpOPUxTGshMMUdCRX5SZRjCDSjQCSlLH5YPrDpWCSbGZUtGQryEROnUFJtbp2ODLSkQORp VgK4GlMeTWMdZHUiOMwiFZFuHIIxUSe1ASIyYRJtAK3MQtGmNUAjQTT6WRDdFJRmKUKlgb1WPZJhEPBy QpA1XGMkPUZiFUFfSQjgTVFiHCQ3Nnw3PNGdJLNbIT 6TNfJpDVWnVBr5LSFaRGTgTOQvql4LNIWeNNLfOtn3GmAcUGGlHWOoLJutGLPhZFWzFPEdYZBkDVMcUY 1JOgLkMUGoWHQlBZIbVZCrCVNjee4LDJHbZXNrPbEhHQAdRPUxVFWcJHlgKZGzYDTyYBT2YVTtJUDoWL 5DQlVpBUPdBtGdSqSbOMMrELKzbt2HXFVaDFJiMPjw GLRyOTCcCBSiURqqXMOuVVWaWIJsTABiCWJoQM6ROnVtACAzGoLgWoImJQXrTXPbfp6JRHSjWEIeYyG0 KJRoQNSsOOFiLIzdFGWmZFPjQNDyTAErCHSaSK8CIeTjBUZuOuD6EXAlMXNnPDAckk3SGGYuEUGhMzXw IiAmQHHcAMInOPalJZNzNRIiNIWeJYVtNCFgXK3UVg MpAOQyBzOnLLQqWUOnMYJxfg5NKSDdLHWzURK6BrBeMOOyTCKeBFqgDREtOHG7Frh2CSSsKZGyNO9EJi VaNHOrVcZ6JqBtSSXcNCHgss9VZNAoBURcHtZ9DFZvOEWtISGcJXwlAINvOZV2QFsbHNBeSUKdKQ5XDp TgAQZoFml0TEamOSUwHGMnqk2RYPLbEBLyAHKdMICg VFFiBBKjBDagHTRoHDV0QUy5AKVlHKIhZN2CGqNoEIwfZPDWMsm4AZrnH1c5XTKgBB1KA8Dmh7ZbAlHl EMVXUNygQJ6ilgQmLQLeSd6RJ8mVJsg8WqXmSri4OfBlSSJkFoPtVBG7MbP0WkCmZSBgDwJtIc8uRMj0 QJT0KON5ZKWcHVKyIPPgFOB6Odl9LIPxSGV2WUEvSy CtHH9MWb4LGcZ8HRC3uOLdQe8BYci8IjBLNtRuXU8HFZr= ID Date Data Source [id number] 03/23/2020 12:56:11 PM EDT [facility] Name Value Range Interpretation Code Description Data Hazel rce(s) Supporting Document(s) Glucose [Mass/volume] in Capillary blood by Glucometer 166 mg/dL 70- [address] [facility] ID Date Data Source [id number] 03/23/2020 09:21:57 AM [facility] Value Range Interpretation Code Description Data Hazel rce(s) Supporting Document(s) Glucose [Mass/volume] in Capillary blood by Glucometer 183 mg/dL 70- [address] [facility] ID Date Data Source [id number] 03/23/2020 09:13:02 AM [facility] Value Range Interpretation Code Description Data Hazel rce(s) Supporting Document(s) Leukocytes [#/volume] in Blood by Automated count 4.5 10*3/uL 4-10 [facility] Erythrocytes [#/volume] in Blood by Automated count 2.88 10*6/uL 4.6- 6.[address] [facility] Hemoglobin [Mass/volume] in Blood 9.4 g/dL 13.5-[address] [facility] Hematocrit [Volume Fraction] of Blood by Automated count 27.6 % 4 1-[address] [facility] Erythrocyte mean corpuscular volume [Entitic volume] by Auto mated count 95.8 fL 80-96 [facility] Erythrocyte mean corpuscular hemoglobin [Entitic mass] by Automated count 32.8 pg 27-33 [facility] Erythrocyte mean corpuscular hemoglobin concentration [Mass/volume] by Automated count 34.2 g/dL 32.0-[facility] width [Ratio] by Automated count 17.0 % 11.5-14.[address] [facility] Platelets [#/volume] in Blood by Automated count 119 10*3/uL 150-[address] [facility] ID Date Data Source [id number] 03/23/2020 03:44:43 PM [facility] Value Range Interpretation Code Description Data Hazel rce(s) Supporting Document(s) Bicarbonate [Moles/volume] in Serum 25 mmol/L 22-29 [facility] Chloride [Moles/volume] in Serum or Plasma 102 mmol/L 98-107 [facility] Creatinine [Mass/volume] in Serum or Plasma 0.87 mg/dL 0.70-1.20 [facility] Glucose [Mass/volume] in Serum or Plasma 170 mg/dL 70-[address] [facility] Potassium [Moles/volume] in Serum or Plasma 3.6 mmol/L 3.4-5.1 [facility] Sodium [Moles/volume] in Serum or Plasma 139 mmol/L 136-145 [facility] Urea nitrogen [Mass/volume] in Serum or Plasma 8 mg/dL 6-20 [facility] Anion gap 3 in Serum or Plasma 12 mmol/L 8-15 [facility] Osmolality of Serum or Plasma by calculation 290 mosm/kg 275-300 [facility] Creatinine/Urea nitrogen [Mass Ratio] in Serum or Plasma 9 [facility] Calcium [Mass/volume] in Serum or Plasma 7.6 mg/dL 8.6-10.[address] [facility] Glomerular filtration rate/1.73 sq M pre dicted among non-blacks [Volume Rate/Area] in Serum or Plasma by Creatinine-based formula (MDRD) >[address] [facility] Glomerular filtration rate/1.73 sq M pre dicted among blacks [Volume Rate/Area] in Serum or Plasma by Creatinine-based formula (MDRD) >60 [facility] ID Date Data Source [id number] 03/23/2020 06:37:30 AM EDT [facility] Name Value Range Interpretation Code Description Data Hazel rce(s) Supporting Document(s) Leukocytes [#/volume] in Blood by Automated count 3.5 10*3/uL 4-[address] [facility] Erythrocytes [#/volume] in Blood by Automated count 2.09 10*6/uL 4.6- 6.1 [facility] Hemoglobin [Mass/volume] in Blood 6.6 g/dL 13.5-[address] [facility] Hematocrit [Volume Fraction] of Blood by Automated count 19.8 % 4 1-53 [facility] No significant change since last result called Erythrocyte mean corpuscular volume [Entitic volume] by Auto mated count 94.7 fL 80-96 [facility] Erythrocyte mean corpuscular hemoglobin [Entitic mass] by Automated count 31.7 pg 27-33 [facility] Erythrocyte mean corpuscular hemoglobin concentration [Mass/volume] by Automated count 33.4 g/dL 32.0-36.[facility]th[facility] distribution width [Ratio] by Automated count 16.5 % 11.5-14.[address] [facility] Platelets [#/volume] in Blood by Automated count 93 10*3/uL 150-[address] [facility] Differential cell count method - Blood [facility] Neutrophils/100 leukocytes in Blood by Automated count 52 % [facility] Lymphocytes/100 leukocytes in Blood by Automated count 33 % [facility] Monocytes/100 leukocytes in Blood by Automated count 8 % [facility] Eosinophils/100 leukocytes in Blood by Automated count 7 % [facility] Basophils/100 leukocytes in Blood by Automated count 0 % [facility] Neutrophils [#/volume] in Blood by Automated count 1.84 10*3/uL 1.8-[address] [facility] Lymphocytes [#/volume] in Blood by Automated count 1.13 10*3/uL 1.2-[address] [facility] Monocytes [#/volume] in Blood by Automated count 0.26 10*3/uL 0-0.8 [facility] Eosinophils [#/volume] in Blood by Automated count 0.23 10*3/uL 0-0.5 [facility] Basophils [#/volume] in Blood by Automated count 0.01 10*3/uL 0-0.2 [facility] Nucleated erythrocytes/100 leukocytes [Ratio] in Blood by Automated count 0 /100{WBCs} 0-0 [facility] ID Date Data Source [id number] 03/22/2020 11:35:13 PM T [facility] Name Value Range Interpretation Code Description Data Hazel rce(s) Supporting Document(s) Leukocytes [#/volume] in Blood by Automated count 5.1 10*3/uL 4-10 [facility] Erythrocytes [#/volume] in Blood by Automated count 2.14 10*6/uL 4.6- 6.[address] [facility] Hemoglobin [Mass/volume] in Blood 6.9 g/dL 13.5-[address] [facility] Hematocrit [Volume Fraction] of Blood by Automated count 20.7 % 4 1-53 [facility] Called to and read back by sharmila villegas rn on 6a at 2329 by 2050 Erythrocyte mean corpuscular volume [Entitic volume] by Auto mated count 96.6 fL 80-[address] [facility] Erythrocyte mean corpuscular hemoglobin [Entitic mass] by Automated count 32.3 pg 27-33 [facility] Erythrocyte mean corpuscular hemoglobin concentration [Mass/volume] by Automated count 33.5 g/dL 32.0-36.[facility] distribution width [Ratio] by Automated count 15.9 % 11.5-14.[address] [facility] Platelets [#/volume] in Blood by Automated count 112 10*3/uL 150-[address] [facility] Differential cell count method - Blood [facility] Neutrophils/100 leukocytes in Blood by Automated count 63 % [facility] Lymphocytes/100 leukocytes in Blood by Automated count 25 % [facility] Monocytes/100 leukocytes in Blood by Automated count 6 % [facility] Eosinophils/100 leukocytes in Blood by Automated count 5 % [facility] Basophils/100 leukocytes in Blood by Automated count 1 % [facility] Neutrophils [#/volume] in Blood by Automated count 3.20 10*3/uL 1.8-[address] [facility] Lymphocytes [#/volume] in Blood by Automated count 1.26 10*3/uL 1.2-[address] [facility] Monocytes [#/volume] in Blood by Automated count 0.33 10*3/uL 0-0.8 [facility] Eosinophils [#/volume] in Blood by Automated count 0.27 10*3/uL 0-0.5 [facility] Basophils [#/volume] in Blood by Automated count 0.04 10*3/uL 0-0.2 [facility] Nucleated erythrocytes/100 leukocytes [Ratio] in Blood by Automated count 0 /100{WBCs} 0-0 [facility] ID Date Data Source [id number] 03/22/2020 09:30:03 PM EDT [facility] Name Value Range Interpretation Code Description Data Hazel rce(s) Supporting Document(s) Glucose [Mass/volume] in Capillary blood by Glucometer 115 mg/dL 70- 140 [facility] ID Date Data Source [id number] 03/22/2020 05:44:56 PM EDT [facility] Name Value Range Interpretation Code Description Data Hazel rce(s) Supporting Document(s) Glucose [Mass/volume] in Capillary blood by Glucometer 238 mg/dL 70- [address] [facility] ID Date Data Source [id number] 03/22/2020 03:22:36 PM EDT [facility] MR BILIARY TREE MRCP [id number] RESULTIn terpreted by:KEITH QuintanaPROCEDURE INFORMATION: Exam: MR Abdomen Without Contrast Exam date and time: 03/22/2020 11:00 AM Age: 55 years old Clinical indication: Essential (primary) hypertension; Abdominal pain; Generalized; Additional info: Pancreatic, bile duct dilatation, abdominal pain TECHNIQUE: Imaging protocol: MR of the abdomen without contrast. 3D rendering: MIP and/or 3D reconstructed images were created by the technologist. COMPARISON: CT ABDOMEN WITH CONTRAST [id number] 03/21/2020 5:53 AM FINDINGS: Pleura: Trace pleural [...] DOCUMENT HAS BEEN ELECTRONICALLY SIGNED BY MING Castro document has been electronic ally signed by KEITH Quintana on 03/22/2020 3:22 PM Name Value Range Interpretation Code Description Data Hazel rce(s) Supporting Document(s) ID Date Data Source [id number] 03/22/2020 03:37:44 PM [facility] Name Value Range Interpretation Code Description Data Hazel rce(s) Supporting Document(s) Glucose [Mass/volume] in Capillary blood by Glucometer 273 mg/dL 70- [address] [facility] ID Date Data Source [id number] 03/22/2020 01:15:26 PM [facility] Name Value Range Interpretation Code Description Data Hazel rce(s) Supporting Document(s) Leukocytes [#/volume] in Blood by Automated count 4.4 10*3/uL 4-10 [facility] Erythrocytes [#/volume] in Blood by Automated count 2.44 10*6/uL 4.6- 6.[address] [facility] Hemoglobin [Mass/volume] in Blood 8.0 g/dL 13.5-[address] [facility] Hematocrit [Volume Fraction] of Blood by Automated count 23.5 % 4 1-[address] [facility] Erythrocyte mean corpuscular volume [Entitic volume] by Auto mated count 96.6 fL 80-[address] [facility] Erythrocyte mean corpuscular hemoglobin [Entitic mass] by Automated count 32.8 pg 27-33 [facility] Erythrocyte mean corpuscular hemoglobin concentration [Mass/volume] by Automated count 34.0 g/dL 32.0[facility] width [Ratio] by Automated count 16.0 % 11.5-14.[address] [facility] Platelets [#/volume] in Blood by Automated count 131 10*3/uL 150-[address] [facility] Differential cell count method - Blood [facility] Neutrophils/100 leukocytes in Blood by Automated count 72 % [facility] Lymphocytes/100 leukocytes in Blood by Automated count 18 % [facility] Monocytes/100 leukocytes in Blood by Automated count 5 % [facility] Eosinophils/100 leukocytes in Blood by Automated count 4 % [facility] Basophils/100 leukocytes in Blood by Automated count 1 % [facility] Neutrophils [#/volume] in Blood by Automated count 3.18 10*3/uL 1.8-[address] [facility] Lymphocytes [#/volume] in Blood by Automated count 0.77 10*3/uL 1.2-[address] [facility] Monocytes [#/volume] in Blood by Automated count 0.22 10*3/uL 0-0.8 [facility] Eosinophils [#/volume] in Blood by Automated count 0.17 10*3/uL 0-0.5 [facility] Basophils [#/volume] in Blood by Automated count 0.03 10*3/uL 0-0.2 [facility] Nucleated erythrocytes/100 leukocytes [Ratio] in Blood by Automated count 0 /100{WBCs} 0-0 [facility] ID Date Data Source [id number] 03/22/2020 08:17:15 AM [facility] Name Value Range Interpretation Code Description Data Hazel rce(s) Supporting Document(s) Glucose [Mass/volume] in Capillary blood by Glucometer 148 mg/dL 70- [address] [facility] ID Date Data Source [id number] 03/22/2020 05:12:40 AM [facility] Name Value Range Interpretation Code Description Data Hazel rce(s) Supporting Document(s) Leukocytes [#/volume] in Blood by Automated count 5.0 10*3/uL 4-10 [facility] Erythrocytes [#/volume] in Blood by Automated count 2.76 10*6/uL 4.6- 6.[address] [facility] Hemoglobin [Mass/volume] in Blood 9.0 g/dL 13.5-[address] [facility] Hematocrit [Volume Fraction] of Blood by Automated count 26.5 % 4 1-[address] [facility] Erythrocyte mean corpuscular volume [Entitic volume] by Auto mated count 95.9 fL 80-96 [facility] Erythrocyte mean corpuscular hemoglobin [Entitic mass] by Automated count 32.5 pg 27-33 [facility] Erythrocyte mean corpuscular hemoglobin concentration [Mass/volume] by Automated count 33.8 g/dL 32.0-36.0 [facility] al Erythrocyte distribution width [Ratio] by Automated count 15.6 % 11.5-14.[address] [facility] Platelets [#/volume] in Blood by Automated count 139 10*3/uL 150-[address] [facility] Differential cell count method - Blood [facility] Neutrophils/100 leukocytes in Blood by Automated count 56 % [facility] Lymphocytes/100 leukocytes in Blood by Automated count 33 % [facility] Monocytes/100 leukocytes in Blood by Automated count 4 % [facility] Eosinophils/100 leukocytes in Blood by Automated count 6 % [facility] Basophils/100 leukocytes in Blood by Automated count 1 % [facility] Neutrophils [#/volume] in Blood by Automated count 2.78 10*3/uL 1.8-[address] [facility] Lymphocytes [#/volume] in Blood by Automated count 1.64 10*3/uL 1.2-[address] [facility] Monocytes [#/volume] in Blood by Automated count 0.22 10*3/uL 0-0.8 [facility] Eosinophils [#/volume] in Blood by Automated count 0.29 10*3/uL 0-0.5 [facility] Basophils [#/volume] in Blood by Automated count 0.03 10*3/uL 0-0.2 [facility] Nucleated erythrocytes/100 leukocytes [Ratio] in Blood by Automated count 0 /100{WBCs} 0-0 [facility] ID Date Data Source [id number] 03/22/2020 05:24:51 AM T [facility] Name Value Range Interpretation Code Description Data Hazel rce(s) Supporting Document(s) Albumin [Mass/volume] in Serum or Plasma by Bromocresol green (BCG) dye binding method 3.0 g/dL 3.5-5.2 L [facility] al Bilirubin.total [Mass/volume] in Serum or Plasma 0.4 mg/dL <1.2 [facility] Calcium [Mass/volume] in Serum or Plasma 8.3 mg/dL 8.6-10.0 [facility] Chloride [Moles/volume] in Serum or Plasma 100 mmol/L 98-107 [facility] Creatinine [Mass/volume] in Serum or Plasma 0.98 mg/dL 0.70-1.20 [facility] Glucose [Mass/volume] in Serum or Plasma 201 mg/dL 70-[address] [facility] Alkaline phosphatase [Enzymatic activity/volume] in Serum or Plasma 96 U/L 40-129 [facility] Potassium [Moles/volume] in Serum or Plasma 3.5 mmol/L 3.4-5.1 [facility] Protein [Mass/volume] in Serum or Plasma 5.3 g/dL 6.4-8.[address] [facility] Sodium [Moles/volume] in Serum or Plasma 135 mmol/L 136-[address] [facility] Aspartate aminotransferase [Enzymatic activity/volume] in Serum or Plasma 34 U/L <40 [facility] Urea nitrogen [Mass/volume] in Serum or Plasma 11 mg/dL 6-20 [facility] Osmolality of Serum or Plasma by calculation 284 mosm/kg 275-300 [facility] Creatinine/Urea nitrogen [Mass Ratio] in Serum or Plasma 12 [facility] Bicarbonate [Moles/volume] in Serum 24 mmol/L 22-29 [facility] Alanine aminotransferase [Enzymatic activity/volume] in Seru m or Plasma 20 U/L <41 [facility] Anion gap 3 in Serum or Plasma 11 mmol/L 8-15 [facility] Glomerular filtration rate/1.73 sq M pre dicted among non-blacks [Volume Rate/Area] in Serum or Plasma by Creatinine-based formula (MDRD) >[address] [facility] Glomerular filtration rate/1.73 sq M pre dicted among blacks [Volume Rate/Area] in Serum or Plasma by Creatinine-based formula (MDRD) >60 [facility] ID Date Data Source [id number] 03/22/2020 05:58:27 AM [facility] Name Value Range Interpretation Code Description Data Hazel rce(s) Supporting Document(s) Glucose [Mass/volume] in Capillary blood by Glucometer 203 mg/dL 70- [address] [facility] ID Date Data Source [id number] 03/22/2020 12:55:49 AM EDT [facility] Value Range Interpretation Code Description Data Hazel rce(s) Supporting Document(s) Glucose [Mass/volume] in Capillary blood by Glucometer 196 mg/dL 70- [address] [facility] ID Date Data Source [id number] 03/21/2020 [facility]:26:[facility] Interpretation Code Description Data Hazel rce(s) Supporting Document(s) Consultation [facility] LDODEc4yYiWFJqNu06/LVIphWYCst8HwBHwbLLe8GVygCMHdG5PgWRY8dO4sRQL3YLnKIfDqLmTnBuKu lbm [file] AgICAgICAgICAgICAgICAgICAgICAgICAgICAgICAg HXKqURRsMYChKJQmBRGvKUMkRFUdBCTlETPrROEpLNIwFJHuMWGeUEGhCBQjIGHmNNDoWN0WSZQeUUKp ICAgICAgICAgICAgICAgICAgICAgICAgICAgICAgICAgICAgICAgICAgICAgICAgICAgICAgICAgICAg ICAgICAgICAgICAgICAgICAgICAgICAgICAgICAgIC ExTB4ATUObAXUkDWQbCGPgDFXjQPSdCHEcRZPiFDZbGDEfHHBnVZRcKGByTCCiUYVrHUVsXTDeIXWkXH MvVCRcEFHdRGZkTCFiUHDlMBFhPJDiEOScIVTrKLXsKETxYULySRKaLFIzNI9EBRGgERQuWFTfHLIiLQ AgICAgICAgICAgICAgICAgICAgICAgICAgICAgICAg LKDoQHOhSXOvWVPkLTNiXHLjEXYhCLWcECZxITUpDBIuNEXeJEZpYNLvBGJgXTUeRQPhRAOhRQ9OGBXb ICAgICAgICAgICAgICAgICAgICAgICAgICAgICAgICAgICAgICAgICAgICAgICAgICAgICAgICAgICAg ICAgICAgICAgICAgICAgICAgICAgICAgICAgICAgIC UgEDSdQM7EJFUpUZCxPIGnSQIbMMSzUBWgASIvEHJyZIQiBPIkJEBzZDUeNQKjJUBtHHGkROJxUGDvFM DgQUFqYCApJTUwSAVgNLVjNZTxTPXoIFNlAKXmBQGeVSEnYFIwIKKlOCVuVECnAL0YHWYrBNWiSHDjNH AgICAgICAgICAgICAgICAgICAgICAgICAgICAgICAg JBEgSHSoUQKnLOCxOIAvIEGyHGBcKLKjQQWiREUsJLDxRETmBBFmQRHtGNFyWMVwLZGlDYXlRWUpLU4X ICAgICAgICAgICAgICAgICAgICAgICAgICAgICAgICAgICAgICAgICAgICAgICAgICAgICAgICAgICAg ICAgICAgICAgICAgICAgICAgICAgICAgICAgICAgIC YpUNVpBICwCM6AEUAwDRBzPISxBMGvHXNzTTAmMUQdMPOmTCPtVGRuYVSuJOHaKNWoTWDhVMThUDNrMV RhRJRiMGLdCBAsPSHvDBQcQAZcBLUuBIBsUMCiNCEpWRLrWRTzPBJtNVSkHPXyQLEnZI0MOZ05lKSpn1 F4VKEuEH3tarn/Oe3XVUlgwoNyyQTwBM5QIwQuGA6e ng9RMoCrIH5mxb4NGCeCBsBtI5B6qQQoDXHpDTUPOqAyR58kYPryPm88FIjhIAEzOcYlMWh2Sl5JMvCo P9gpLJWpTuL7VJUvEtQ7GFQpRcA6SIUeFeQiFCWlIOWhLMZsMOEIAG1LEyQoX0HgbS17YMODTj9+DQpl alZySuqDAoLlLWDng1KvEDx0OJ7ODDJeUrcwn0BeOg CaTESTKQnjHV2QBCS5ZZZqHAKgGl8JAXXfV611toAaFT2XJu5CKxFkXI8bcc4FHrKgRVHlXnaWDta4QP lhKA2ZjEYoCDeJa26ydFc6ynBlcZNBc64qcQRkXATOpgbzn502m2knKXKYMNNuaUD0YxOnRxXoThMhJE V5RLPaMX5vSNwzHD9CXBY0CFyqHZXpZDJmK6mXDoSf FOCdNsEqfNkuMY4XGdSjJ8CfvbPdyOSmNFHkBUGMBh7+KLkoczUlKqoRQmCwBELdc1RmYHy3BF9OGYOd TKhwWT8XKVMjtV4qNJisTD3GNcHdWFQzEEIFTgBjY17bjVGtYGz6C7LlMaTjPLCjVpcoHBZiFHooYsDm ZXMgWyBdDQogID4+ID4+JGzkWQ6ORCpurdBmFRTiOz 3JORSvOIIePG6lPOCyQZEuG0K8wDcrILJQIqCqW5uggbggLO5lSCVkY448aChzciMmPSZkILYmRp2BMB VjQDK2WXCjgOQyKawnPJFAAOqfTB9GbTQgYJD6tH4wADfgNQAqANKeC9wQHtTcjPpbHN97uObsxpKztM BdDQo+Uz2XDH3bo2UfPTu6vdZxTCjoFDDfHEgsIRMa UWUiAQSvGEJ4MOX5PQTYWzQcRZIrAUBnODvqRMGeYQDtha4QILTwJKTiSGDjKbPoUTHfKONrQFpjYGCa USH2XrP1KXZhBMZpIR4RSwTkAGNbQBOaWLkjTADlUIVwoh5JSZXrHGXtLhA0TeEhPIChJNOoFQtpZYMb BRRvHfDeOBBdGNYmVA8GMqTbWGNiMOL0BCGnPFPtBD Rcvs8EYFAsNQXmOoQgQGZyHFNeOMDlDYrwJBYoWVMiTKP0SRShHUOpKN8BMjLsXKArJXPvNWkkWHBdYX Laxc2GXUHiUKJjQsHsDDWpFRAqYPYbHShrHERvYLG7QyGtDPLbVGAyNA1BZrIsEFJmVGi2JVakMBGlHF Ccwy9SCHZbXQCpLtpfZXKeZRIgQTLrBDgzUIXpYQE8 KlV4LBHvOHCfGV9ONpOpVOCuRAr3AjQcJNNsVORzpv0PHALvPKUuMOU9ZGLeHZXwDCIvWWwoJFLdLMJe DLYkZHUiJUDuZJ9JMwBeKLEhWsEoUWOiWRIdZHDhao6QXQVgRBDjUKR9ZqHxVZQuDCEnOJrjEVQhVMPz Phz5IURcRCUpKT9XUjCgRZDwWmElDVIfFLVcNREtnx 2TBTUuLOEzAuTrKDHtJFDwUYAhXDqvRHJbHKSfZXY7KNUzTFPaTX0GZeCjVJPfWvC7OAXlQWEqYRBwaw 6SHKXaEOLmEeTaIWElNDMhOAPhNZvlNRDbPZBvVODzNOGaCZVrTQ1XQnBnYGAxDxFqGHJzBOVsNHBckw 7FNLUsZBZqKNDfZpUyZUQpWLHtGPjbRUVoCKW7UOau IDFqARSySM3FNkEyFYWhZsE3WZBoWRJsIUKinb4ZGXWcEVVcPiPsMXAnAZMcJRUzQQr3cbQdzWQpETi9 XK4WC8MzmgEfMgHNOb8Pt478LSQtXJWbLw0ES8vcOo7pPMAwFPHEEk0HOWt6AQJwLxV4DNE6ZVPcRKgm RQDeVGG1KLwpVhEpAoHzTIH+JGd4ZDRoRBS2PkSvVS MjDUNtNDFrXzPrLiDiWZOzCUO5JB6sWHFWIf9+WObgeOUhnPiqFFSXNmA0HyP1SHuxLGYXZu1I ID Date Data Source [id number] 03/21/2020 09:12:58 PM EDT [facility] Name Value Range Interpretation Code Description Data Hazel rce(s) Supporting Document(s) Consultation [facility] JNORAa6iLzTUIgZq57/HMXfwMJOuo1TxJVnxTXo6ILwyBNHqH0ViBXO3fH1vFIC0ZVdUKrTdAyXoPzPo lbm [file] D6OQIiCqu8Zr4rNJLPWf6+TGugwTBqoUkbTFGBLwqxEVqtGTeoEMQYJj6U ID Date Data Source [id number] 03/21/2020 09:51:13 PM EDT [facility] Name Value Range Interpretation Code Description Data Hazel rce(s) Supporting Document(s) Leukocytes [#/volume] in Blood by Automated count 3.6 10*3/uL 4-[address] [facility] Erythrocytes [#/volume] in Blood by Automated count 2.45 10*6/uL 4.6- 6.[address] [facility] Hemoglobin [Mass/volume] in Blood 8.1 g/dL 13.5-[address] [facility] Hematocrit [Volume Fraction] of Blood by Automated count 23.9 % 4 1-[address] [facility] Erythrocyte mean corpuscular volume [Entitic volume] by Auto mated count 97.8 fL 80-[address] [facility] Erythrocyte mean corpuscular hemoglobin [Entitic mass] by Automated count 33.0 pg 27-33 [facility] Erythrocyte mean corpuscular hemoglobin concentration [Mass/volume] by Automated count 33.8 g/dL 32.0-[facility] width [Ratio] by Automated count 16.2 % 11.5-14.[address] [facility] Platelets [#/volume] in Blood by Automated count 124 10*3/uL 150-[address] [facility] Differential cell count method - Blood [facility] Neutrophils/100 leukocytes in Blood by Automated count 60 % [facility] Lymphocytes/100 leukocytes in Blood by Automated count 28 % [facility] Monocytes/100 leukocytes in Blood by Automated count 7 % [facility] Eosinophils/100 leukocytes in Blood by Automated count 4 % [facility] Basophils/100 leukocytes in Blood by Automated count 1 % [facility] Neutrophils [#/volume] in Blood by Automated count 2.16 10*3/uL 1.8-[address] [facility] Lymphocytes [#/volume] in Blood by Automated count 0.99 10*3/uL 1.2-[address] [facility] Monocytes [#/volume] in Blood by Automated count 0.26 10*3/uL 0-0.8 [facility] Eosinophils [#/volume] in Blood by Automated count 0.14 10*3/uL 0-0.5 [facility] Basophils [#/volume] in Blood by Automated count 0.03 10*3/uL 0-0.2 [facility] Nucleated erythrocytes/100 leukocytes [Ratio] in Blood by Automated count 0 /100{WBCs} 0-0 [facility] ID Date Data Source [id number] 03/21/2020 05:23:46 PM [facility] Name Value Range Interpretation Code Description Data Hazel rce(s) Supporting Document(s) Glucose [Mass/volume] in Capillary blood by Glucometer 138 mg/dL 70- 140 [facility] ID Date Data Source [id number] 03/21/2020 05:06:57 PM T [facility] NM GI BLOOD LOSS IMAGING [id number] RESU LTInterpreted by:Bebeto Torres, DOINDICATION: GI bleedTECHNIQUE: [...] rce(s) Supporting Document(s) ID Date Data Source [id number] 03/21/2020 02:42:34 PM [facility] Name Value Range Interpretation Code Description Data Hazel rce(s) Supporting Document(s) Leukocytes [#/volume] in Blood by Automated count 3.8 10*3/uL 4-[address] [facility] Erythrocytes [#/volume] in Blood by Automated count 2.69 10*6/uL 4.6- 6.[address] [facility] Hemoglobin [Mass/volume] in Blood 8.7 g/dL 13.5-[address] [facility] Hematocrit [Volume Fraction] of Blood by Automated count 26.0 % 4 1-[address] [facility] Erythrocyte mean corpuscular volume [Entitic volume] by Auto mated count 96.8 fL 80-[address] [facility] Erythrocyte mean corpuscular hemoglobin [Entitic mass] by Automated count 32.4 pg 27-33 [facility] Erythrocyte mean corpuscular hemoglobin concentration [Mass/volume] by Automated count 33.5 g/dL 32.0-36.0 [facility] al Erythrocyte distribution width [Ratio] by Automated count 16.1 % 11.5-14.[address] [facility] Platelets [#/volume] in Blood by Automated count 135 10*3/uL 150-[address] [facility] ID Date Data Source [id number] 03/21/2020 01:56:[facility] Interpretation Code Description Data Hazel rce(s) Supporting Document(s) Sodium [Moles/volume] in Urine 99 mmol/L [facility] ID Date Data Source [id number] 03/21/2020 12:48:47 [facility] Value Range Interpretation Code Description Data Hazel rce(s) Supporting Document(s) Glucose [Mass/volume] in Capillary blood by Glucometer 122 mg/dL 70- 140 [facility] ID Date Data Source [id number] 03/21/2020 12:24:31 [facility] Value Range Interpretation Code Description Data Hazel rce(s) Supporting Document(s) Lactate [Moles/volume] in Serum or Plasma 1.4 mmol/l 0.5-2.2 [facility] ID Date Data Source [id number] 03/21/2020 12:28:34 [facility] Value Range Interpretation Code Description Data Hazel rce(s) Supporting Document(s) Osmolality of Serum or Plasma 285 mosm/kg 285-295 [facility] ID Date Data Source [id number] 03/21/2020 09:03:30 [facility] Value Range Interpretation Code Description Data Hazel rce(s) Supporting Document(s) EKG [facility] BRJCTr2bAeQOGjXdr9XkCxGoMLTdUG1atir6O4F2aKCfC4KzqCOqr3tlW2PaN6UyVSRbSRXDZW3MzWOv jb2 [file] GEUQ2jEERXGlAFsM2lSWaYT5ZIXXTrxHM3MPpQHIDO 1RIEON8zQXCGMgFWLD4oOPaYV1IEZZEdhEBwSLsDI4KL7gFTQG9iQQVNQqEGUY7szHMWI1xWQHQnpMCc SZcwDbKK8cNDIm1wPMFIHkSB5T3rhAVNo8gLWAymnBHLCAahALZN40KDKy4xRBtEVTNp+25SniWmUQZ3 dWEOe7oulqweZjHKTI3S1RO2lqFtKD2s8KJ1qphqRB 0g8IZ8oywjOnjhZUTuTn7fuR+1aOrbxvFdgq+btTtiPoTzUO7BrTvOB5Wiejuj1Rskfhq6Pk8d34rjmI V4m43Tf+de7dbpK7/CeFYirwA3xh6XaROVaI/PVJUKcDw85z1Lpt14WSNCZvhpj78ghzJewN/PQXYYeR fo7k3LQo74nTcKS+nj1y46cQvwI6IUtqSdOaAr79V8 k96Gz7JFgQ/ZMzJArNec1k6OBp10hDdWt/+pCyD+fIQ6D9Wb2dS3k+pL/cEWgycrrgRlP89ZFeD7LrSd TsQ/rVm9B3AF/0hCUO9L3dQhJa/huMcp7uQ60R7Qx7dk5w+5D+9EUco50oyyVHq6/lDSHhNsptjNsYtz JkW5rwsIyTePz5VggNsP8rV+f4si4J3fF0ZX4C9VFw n5acAstY0OWrx7DmSxpD7ZMoz85gJedM1WCni5pDQngta/Ue66xlWxt4oSz8/nEvC9ehOrE8wRK+Ia1T QKxI0gvMnG8ydXYZ9jeGmyk0qgZuf9fbNgL8n1h3dg0//iuhkqi7W3mUlnt425/+ze2vDTxbRrdIp/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 ID Date Data Source [id number] 03/21/2020 07:07:53 AM [facility] CT ABDOMEN WITH CONTRAST [id number] RESU LTInterpreted by:LENKA MinorROCEDURE INFORMATION: Exam: CT Abdomen With Contrast Exam [...] findings.THIS DOCUMENT HAS BEEN ELECTRONICALLY SIGNED BY LEWIS DUFF MDThis document has been electronically signed by Lewis Duff MD on 03/21/2020 7:07 AM Name Value Range Interpretation Code Description Data [facility] rce(s) Supporting Document(s) ID Date Data Source [id number] 03/21/2020 06:22:38 AM [facility] Name Value Range Interpretation Code Description Data Hazel rce(s) Supporting Document(s) Leukocytes [#/volume] in Blood by Automated count 4.2 10*3/uL 4-10 [facility] Erythrocytes [#/volume] in Blood by Automated count 2.75 10*6/uL 4.6- 6.[address] [facility] Hemoglobin [Mass/volume] in Blood 8.8 g/dL 13.5-[address] [facility] Hematocrit [Volume Fraction] of Blood by Automated count 26.4 % 4 1-[address] [facility] Erythrocyte mean corpuscular volume [Entitic volume] by Auto mated count 95.9 fL 80-96 [facility] Erythrocyte mean corpuscular hemoglobin [Entitic mass] by Automated count 32.1 pg 27-33 [facility] Erythrocyte mean corpuscular hemoglobin concentration [Mass/volume] by Automated count 33.5 g/dL 32.0-[facility] width [Ratio] by Automated count 15.8 % 11.5-14.[address] [facility] Platelets [#/volume] in Blood by Automated count 143 10*3/uL 150-[address] [facility] Differential cell count method - Blood [facility] Neutrophils/100 leukocytes in Blood by Automated count 70 % [facility] Lymphocytes/100 leukocytes in Blood by Automated count 22 % [facility] Monocytes/100 leukocytes in Blood by Automated count 6 % [facility] Eosinophils/100 leukocytes in Blood by Automated count 1 % [facility] Basophils/100 leukocytes in Blood by Automated count 1 % [facility] Neutrophils [#/volume] in Blood by Automated count 2.95 10*3/uL 1.8-[address] [facility] Lymphocytes [#/volume] in Blood by Automated count 0.92 10*3/uL 1.2-[address] [facility] Monocytes [#/volume] in Blood by Automated count 0.25 10*3/uL 0-0.8 [facility] Eosinophils [#/volume] in Blood by Automated count 0.05 10*3/uL 0-0.5 [facility] Basophils [#/volume] in Blood by Automated count 0.02 10*3/uL 0-0.2 [facility] Nucleated erythrocytes/100 leukocytes [Ratio] in Blood by Automated count 0 /100{WBCs} 0-0 [facility] ID Date Data Source [id number] 03/21/2020 06:40:49 AM EDT [facility] Name Value Range Interpretation Code Description Data Hazel rce(s) Supporting Document(s) Albumin [Mass/volume] in Serum or Plasma by Bromocresol green (BCG) dye binding method 3.3 g/dL 3.5-5.2 [facility] al Bilirubin.total [Mass/volume] in Serum or Plasma 0.7 mg/dL <1.2 [facility] Calcium [Mass/volume] in Serum or Plasma 7.7 mg/dL 8.6-10.[address] [facility] Chloride [Moles/volume] in Serum or Plasma 97 mmol/L 98-[address] [facility] Creatinine [Mass/volume] in Serum or Plasma 0.93 mg/dL 0.70-1.20 [facility] Glucose [Mass/volume] in Serum or Plasma 142 mg/dL 70-[address] [facility] Alkaline phosphatase [Enzymatic activity/volume] in Serum or Plasma 99 U/L 40-129 [facility] Potassium [Moles/volume] in Serum or Plasma 3.5 mmol/L 3.4-5.1 [facility] Protein [Mass/volume] in Serum or Plasma 5.3 g/dL 6.4-8.[address] [facility] Sodium [Moles/volume] in Serum or Plasma 132 mmol/L 136-[address] [facility] Aspartate aminotransferase [Enzymatic activity/volume] in Serum or Plasma 42 U/L <[address] [facility] Urea nitrogen [Mass/volume] in Serum or Plasma 15 mg/dL 6-20 [facility] Osmolality of Serum or Plasma by calculation 277 mosm/kg 275-300 [facility] Creatinine/Urea nitrogen [Mass Ratio] in Serum or Plasma 16 [facility] Bicarbonate [Moles/volume] in Serum 23 mmol/L 22-29 [facility] Alanine aminotransferase [Enzymatic activity/volume] in Seru m or Plasma 23 U/L <41 [facility] Anion gap 3 in Serum or Plasma 12 mmol/L 8-15 [facility] Glomerular filtration rate/1.73 sq M pre dicted among non-blacks [Volume Rate/Area] in Serum or Plasma by Creatinine-based formula (MDRD) >[address] [facility] Glomerular filtration rate/1.73 sq M pre dicted among blacks [Volume Rate/Area] in Serum or Plasma by Creatinine-based formula (MDRD) >60 [facility] ID Date Data Source [id number] 03/21/2020 06:36:33 AM EDT [facility] Name Value Range Interpretation Code Description Data Hazel rce(s) Supporting Document(s) ABO and Rh group [Type] in Blood [facility] Blood bank comment [facility] ID Date Data Source [id number] 03/21/2020 01:45:26 AM EDT [facility] Name Value Range Interpretation Code Description Data Hazel rce(s) Supporting Document(s) History and Physical [facility] ZVJIJd1lKvDBCoQt07/VHLebTOFdu2MfSJbqGFl6IPylFJMtZ8WtRZB4lR0lWMB2YGyHFhQhKqLqAhMe lbm HaSqzQJfIlNWDjBsqJDjIuJQsaZujkeDDvXM8LtZU2ZCHwR12bJVJhMYNlX6VfQPN7CHC+Vg1EKDTyiK QvCK1BVmkP2R0hB4tBXu8+Vfc/OAFH8OHEJYF6o52pAERfIPkji+uq+DClWP61ufsdE+9tJ7tTw70rO3 hxLIHD5V7BSeXsakb20/SMlcr/+8SqF30gDOle//LP OJWU6Ua0/M5pGumss3QUd6RA6DEbQm5v/tA472IZL1w3LOrSiasuYab0gunjBa8VqSGWjn38p23qt8ru rrBAb9EX64oGLB3zT+tEk1mkhs0ZFn8+7VBjtqrb7y4QBw/xE4Gllf5rhotwuWPh1IAcIIE8yGpeZ0hU Zt6jJh0cB3dOf1llvUsRp9Kyik9Cl59CRn6fUI/Laney [file] ID Date Data Source [id number] 03/21/2020 01:09:29 AM [facility] Service Cmnt XXX-Imp : NoneMicroorganism XXX Cult : POSITIVE for fecal occult blood by immunochromatography. This test only detects blood (hemoglobin) from the lower GI tract. To detect bleeding from the upper tract, order Fecal Occult Blood, Upper GI (Hemoccult-SENSA). Name Value Range Interpretation Code Description Data Hazel rce(s) Supporting Document(s) ID Date Data Source [id number] 03/21/2020 02:16:22 AM [facility] Name Value Range Interpretation Code Description Data Hazel rce(s) Supporting Document(s) Amphetamine [Presence] in Urine by Screen method Negative [facility] Benzodiazepines [Presence] in Urine by Screen method Negat jack [facility] Cannabinoids [Presence] in Urine by Screen method Negative [facility] Benzoylecgonine [Presence] in Urine by Screen method Negat jack [facility] Methadone [Presence] in Urine by Screen method Negative [facility] Opiates [Presence] in Urine by Screen method Negative [facility] Oxycodone [Presence] in Urine by Screen method Negative [facility] Fentanyl+Norfentanyl [Presence] in Urine by Screen method Negative [facility] Service comment [facility] Results below the indicated cutoff (ng/m L), are reported as"Negative." Note: for medical purposes only; not valid for legalor employment testing. ID Date Data Source [id number] 03/21/2020 01:54:02 AM [facility] Value Range Interpretation Code Description Data Hazel rce(s) Supporting Document(s) Hepatitis C virus Ab [Presence] in Serum or Plasma by Immuno assay Non Reactive [facility] Past or current Hepatitis C infection. S sonny forwarded to reference laboratory for quantitative HCV RNA testing. ID Date Data Source [id number] 03/25/2020 07:23:25 AM [facility] Value Range Interpretation Code Description Data Hazel rce(s) Supporting Document(s) ABO and Rh group [Type] in Blood [facility] Blood group antibody screen [Presence] in Serum or Plasma [facility] 03/24/2020,0000Performed at [place], [place] ID Date Data Source [id number] 03/21/2020 01:14:21 AM [facility] Value Range Interpretation Code Description Data Hazel rce(s) Supporting Document(s) Prothrombin time (PT) 14.6 s 12.5-14.9 [facility] INR in Platelet poor plasma by Coagulation assay 1.12 [facility] Routine intensity oral anticoagulation I NR is typically 2.0-3.0. Target INR must be clinically individualized. ID Date Data Source [id number] 03/21/2020 01:22:32 AM [facility] Value Range Interpretation Code Description Data Hazel rce(s) Supporting Document(s) Ethanol [Mass/volume] in Serum or Plasma 0.04 g/dl Negative [facility] ID Date Data Source [id number] 03/21/2020 01:22:32 AM [facility] Name Value Range Interpretation Code Description Data Hazel rce(s) Supporting Document(s) Creatine kinase [Enzymatic activity/volume] in Serum or Plasma 551 U/L 20-[address] [facility] ID Date Data Source [id number] 03/21/2020 01:22:32 AM [facility] Name Value Range Interpretation Code Description Data Hazel rce(s) Supporting Document(s) Lipase [Enzymatic activity/volume] in Serum or Plasma 16 U/L 13-[address] [facility] ID Date Data Source [id number] 03/21/2020 01:22:32 AM [facility] Name Value Range Interpretation Code Description Data Hazel rce(s) Supporting Document(s) Albumin [Mass/volume] in Serum or Plasma by Bromocresol green (BCG) dye binding method 2.9 g/dL 3.5[facility].2 [facility] Bil[facility].total [Mass/volume] in Serum or Plasma 0.6 mg/dL <1.2 [facility] Calcium [Mass/volume] in Serum or Plasma 7.8 mg/dL 8.6-10.0 [facility] Chloride [Moles/volume] in Serum or Plasma 104 mmol/L 98-107 [facility] Creatinine [Mass/volume] in Serum or Plasma 0.94 mg/dL 0.70-1.20 [facility] Glucose [Mass/volume] in Serum or Plasma 125 mg/dL 70-140 [facility] Alkaline phosphatase [Enzymatic activity/volume] in Serum or Plasma 89 U/L 40-129 [facility] Potassium [Moles/volume] in Serum or Plasma 4.0 mmol/L 3.4-5.1 [facility] Protein [Mass/volume] in Serum or Plasma 5.0 g/dL 6.4-8.[address] [facility] Sodium [Moles/volume] in Serum or Plasma 139 mmol/L 136-145 [facility] Aspartate aminotransferase [Enzymatic activity/volume] in Serum or Plasma 44 U/L <[address] [facility] Urea nitrogen [Mass/volume] in Serum or Plasma 17 mg/dL 6-20 [facility] Osmolality of Serum or Plasma by calculation 290 mosm/kg 275-300 [facility] Creatinine/Urea nitrogen [Mass Ratio] in Serum or Plasma 18 [facility] Bicarbonate [Moles/volume] in Serum 19 mmol/L 22-[address] [facility] Alanine aminotransferase [Enzymatic activity/volume] in Seru m or Plasma 22 U/L <41 [facility] Anion gap 3 in Serum or Plasma 16 mmol/L 8-[address] [facility] Glomerular filtration rate/1.73 sq M pre dicted among non-blacks [Volume Rate/Area] in Serum or Plasma by Creatinine-based formula (MDRD) >[address] [facility] Glomerular filtration rate/1.73 sq M pre dicted among blacks [Volume Rate/Area] in Serum or Plasma by Creatinine-based formula (MDRD) >60 [facility] ID Date Data Source [id number] 03/21/2020 02:05:32 AM [facility] Name Value Range Interpretation Code Description Data Hazel rce(s) Supporting Document(s) Magnesium [Mass/volume] in Serum or Plasma 1.6 mg/dL 1.6-2.6 [facility] ID Date Data Source [id number] 03/21/2020 02:05:32 AM [facility] Value Range Interpretation Code Description Data Hazel rce(s) Supporting Document(s) Phosphate [Mass/volume] in Serum or Plasma 3.2 mg/dL 2.5-4.5 [facility] ID Date Data Source [id number] 03/21/2020 01:54:16 AM [facility] Value Range Interpretation Code Description Data Hazel rce(s) Supporting Document(s) Leukocytes [#/volume] in Blood by Automated count 4.8 10*3/uL 4-10 [facility] Erythrocytes [#/volume] in Blood by Automated count 2.54 10*6/uL 4.6- 6.[address] [facility] Hemoglobin [Mass/volume] in Blood 8.1 g/dL 13.5-[address] [facility] Hematocrit [Volume Fraction] of Blood by Automated count 24.3 % 4 1-[address] [facility] Erythrocyte mean corpuscular volume [Entitic volume] by Auto mated count 95.8 fL 80-96 [facility] Erythrocyte mean corpuscular hemoglobin [Entitic mass] by Automated count 31.7 pg 27-33 [facility] Erythrocyte mean corpuscular hemoglobin concentration [Mass/volume] by Automated count 33.1 g/dL 32.0-36.0 [facility] Erythrocyte distribution width [Ratio] by Automated count 16.2 % 11.5-14.[address] [facility] Platelets [#/volume] in Blood by Automated count 138 10*3/uL 150-[address] [facility] Differential cell count method - Blood [facility] Neutrophils/100 leukocytes in Blood by Automated count 62 % [facility] Lymphocytes/100 leukocytes in Blood by Automated count 28 % [facility] Monocytes/100 leukocytes in Blood by Automated count 6 % [facility] Eosinophils/100 leukocytes in Blood by Automated count 3 % [facility] Basophils/100 leukocytes in Blood by Automated count 1 % [facility] Neutrophils [#/volume] in Blood by Automated count 3.01 10*3/uL 1.8-[address] [facility] Lymphocytes [#/volume] in Blood by Automated count 1.32 10*3/uL 1.2-[address] [facility] Monocytes [#/volume] in Blood by Automated count 0.27 10*3/uL 0-0.8 [facility] Eosinophils [#/volume] in Blood by Automated count 0.14 10*3/uL 0-0.5 [facility] Basophils [#/volume] in Blood by Automated count 0.03 10*3/uL 0-0.2 [facility] Nucleated erythrocytes/100 leukocytes [Ratio] in Blood by Automated count 0 /100{WBCs} 0-0 [facility] ID Date Data Source [id number] 03/21/2020 01:37:06 AM [facility] Name Value Range Interpretation Code Description Data Hazel rce(s) Supporting Document(s) HIV 1+2 Ab+HIV1 p24 Ag [Presence] in Serum or Plasma by Immu noassay Non Reactive [facility] Negative for HIV-1 p24 antigenand HIV-1/ HIV-2 antibodies. Nolaboratory evidence of HIVinfection. ID Date Data Source [id number] 03/21/2020 01:20:12 AM [facility] Value Range Interpretation Code Description Data Hazel rce(s) Supporting Document(s) Lactate [Moles/volume] in Serum or Plasma 3.0 mmol/l 0.5-2.[address] [facility] ID Date Data Source [id number] 03/21/2020 02:41:56 AM [facility] Value Range Interpretation Code Description Data Hazel rce(s) Supporting Document(s) Glucose [Mass/volume] in Capillary blood by Glucometer 126 mg/dL 70- 140 [facility] ID Date Data Source [id number] 02/24/2020 11:43:04 AM EDT [facility] Current Medications: BD INSULIN SYR ULTR [...] of maxillary and mandibular dentures, sent to [facility] to finalize.Temperature: 98.1 passed COVID questionaireAdditional PPE [...] rce(s) Supporting Document(s) ID Date Data Source [id number] 11/26/2019 01:47:09 PM EDT [facility] Current Medications: BD INSULIN SYR ULTR [...] by pt (Breann =A2).[place]: teeth set in wax, Sabino Sae Nielsen DDS by luciana (11/26/2019 2:54 PM): Tooth Notes and Watches: Assessment & Plan Medications:BD INSULIN SYR ULTRAFINE II 31G X 5/16" 0.3 MLTRAMADOL HCL 50 MG ORAL TABLETATENOLOLGLUCAPHAGE Name Value Range Interpretation Code Description Data Hazel rce(s) Supporting Document(s) ID Date Data Source [id number] 11/05/2019 09:59:09 AM [facility] Current Medications: BD INSULIN SYR ULTR AFINE [...] impressions with custom tray. IMpressions taken with Violeta medium body PVS. Sent to [facility] for wax-rim.Nv: Jaw relationshipSae Slaughter DDS by luciana (11/05/2019 10:40 AM): Tooth Notes and Watches: Assessment & Plan Medications:BD INSULIN SYR ULTRAFINE II 31G X 5/16" 0.3 MLTRAMADOL HCL 50 MG ORAL TABLETATENOLOLGLUCAPHAGE Name Value Range Interpretation Code Description Data Hazel rce(s) Supporting Document(s) ID Date Data Source [id number] 10/31/2019 09:26:48 AM [facility] Current Medications: BD INSULIN SYR ULTR AFINE [...] tray will be fabricated in office.[place]: final impressionSae Slaughter DDS by luciana (10/31/2019 10:12 AM): Tooth Notes and Watches: Assessment & Plan Medications:BD INSULIN SYR ULTRAFINE II 31G X 5/16" 0.3 MLTRAMADOL HCL 50 MG ORAL TABLETATENOLOLGLUCAPHAGE Name Value Range Interpretation Code Description Data Hazel rce(s) Supporting Document(s) ID Date Data Source [id number] 10/25/2019 04:34:00 PM EST [facility] ([facility]) Name Value Range Interpretation Code Description Data Hazel rce(s) Supporting Document(s) Laboratory test finding (navigational concept) <pending> [facility] ([facility]) ID Date Data Source [id number] 10/24/2019 12:43:00 PM EST [facility] ([facility]) Name Value Range Interpretation Code Description Data Hazel rce(s) Supporting Document(s) Platelets [#/volume] in Blood by Automated count 328 10 150-450 [facility] ([facility]) ID Date Data Source [id number] 10/24/2019 12:43:00 PM EST [facility] ([facility]) Name Value Range Interpretation Code Description Data Hazel rce(s) Supporting Document(s) Inr 0.96 [facility] ([facility]) THERAPUTIC HUMAN INR VALUES INDICATIONS NORMAL RANGES PROPHYLAXIS/TREATMENT OF: VENOUS THROMBOSIS 2.0-3.0 PULMONARY EMBOLISM 2.0-3.0 PREVENTION OF SYSTEMIC EMBOLISM FROM: TISSUE HEART VALVES 2.0-3.0 ACUTE MYOCARDIAL INFARCTION 2.0-3.0 VALVULAR HEART DISEASE 2.0-3.0 ATRIAL FIBRILLATION 2.0-3.0 MECHANICAL VALVES(HIGH RISK) 2.5-3.5 RECURRENT MYOCARDIAL INFARCTION 2.5-3.5 Prothrombin Time 12.5 s 11.8-14.0 [facility] ([facility]) Partial Thromboplastin Time 24.9 s 25.0-38.4 [facility] ([facility]) ID Date Data Source TESTOSTERONE FREE & TOTAL 10/24/2019 12:00:00 AM EST eCW1 ([facility]) Name Value Range Interpretation Code Description Data Hazel rce(s) Supporting Document(s) 6.1 7.2-24.0 TESTOSTERONE FREE (DIRECT ) eCW1 ([facility]) 981.0 [id number] TESTOSTERONE TOTAL FOR T& D eCW1 ([facility]) ID Date Data Source PROLACTIN 10/24/2019 12:00:00 AM EST eCW1 ([facility]) Name Value Range Interpretation Code Description Data Hazel rce(s) Supporting Document(s) 7.2 2.1-17.7 PROLACTIN eCW1 ([facility]) ID Date Data Source FREE T4 & TSH PANEL 10/24/2019 12:00:00 AM EST eCW1 ([facility]) Name Value Range Interpretation Code Description Data Hazel rce(s) Supporting Document(s) 0.99 0.76-1.46 FREE T4 eCW1 ([facility]) 1.260 0.358-3.740 THYROID STIMULATING HORM ONE eCW1 ([facility]) ID Date Data Source FSH & LH EVAL 10/24/2019 12:00:00 AM EST eCW1 ([facility]) Name Value Range Interpretation Code Description Data Hazel rce(s) Supporting Document(s) 8.2 1.4-18.1 FOLLICLE STIMULATING HORM ONE eCW1 ([facility]) 14.3 1.5-9.3 LUTEINIZING HORMONE eCW1 ([facility]) ID Date Data Source [id number] 10/11/2019 02:13:16 PM [facility] Current Medications: BD INSULIN SYR ULTR AFINE [...] - CDT Code - Description[E] Missing - Salley and Root On #1 Surface O Region [...] rce(s) Supporting Document(s) ID Date Data Source [id number] 10/03/2019 10:38:24 AM [facility] Vital SignsBlood Pressure: 154/92 Patient History Medical History:Ndsmq-Sxdmhlhtb-Muixz SyndromeHBPArthritisDiabetesMental Health problemFamily History:Diabetes (Mother)Heart disease (Mother, Fa ther)Hypertension (Mother)Social/Personal History: Smoking Status: current every day smokerCurrent Medications: * ATENOLOL * GLUCAPHAGE Past Medical History:Txpnr-Ywxchlykh-Qfdpa SyndromeHBPArthritisDiabetesMental Health problem Dental Chart: Procedures:Type - CDT Code - Description C - (D2222) No Charge Visit (Performed by Kelli Loera) Chart Notes:jadyn (Oct 03 2019 11:05AM): Patient presented for [employer] comp exam. Patient said that he had broken his upper complete denture. Patient was not informed by the front end architect that we do not fabricate dentures at [facility]. Talked to Laurence, and Laurence decided to have patient have aa consult with Dr. Slaughter at [facility]. Patient was willing to travel. Patient had his complete denture done at [facility], but they are not taking his insurance, and had dismissed the patient because he could not make to the appt because of medicaid cab. Dismissed patient without any questions. Advised patient to bring his list of meds for consult visit . Patient was very cooperativeNV-Consult with Dr. Slaughter for max and salvatore Kelli Klein by jadyn (10/03/2019 11:02 AM): Tooth Notes and Watches: Note: There are Un-Billed (C Type) procedures on this document.Medication Changes:Added: * GLUCAPHAGE* ATENOLOL Name Value Range Interpretation Code Description Data Hazel rce(s) Supporting Document(s) ID Date Data Source LIPID PANEL (CARDIAC RISK) 09/23/2019 12:00:00 AM EST eCW1 ( [facility]) Name Value Range Interpretation Code Description Data Hazel rce(s) Supporting Document(s) Triglyceride [Mass/volume] in Serum or Plasma by calculation 198 <150 TRIGLYCERIDES LEVEL eCW1 ([facility]) Cholesterol [Moles/volume] in Serum or Plasma 142 <200 CHOLESTEROL LEVEL eCW1 ([facility]) 108 NON-HDL-C eCW1 ([facility]) Cholesterol in LDL [Mass/volume] in Serum or Plasma by calculation 68 <100 LDL CHOLESTEROL eCW1 ([facility]) Cholesterol in HDL [Moles/volume] in Serum or Plasma 34 >40 HDL CHOLESTEROL eCW1 ([facility]) 4.176 <5 CHOLESTEROL RISK RATIO eCW1 ([facility]) Procedure Social History Code Duration Value Status Description Data Source(s ) Smoking 10/05/2020 12:00:00 AM EST Current Smoker completed Curre nt Smoker eCW1 ([facility]) Smoking 10/05/2020 12:00:00 AM EST Current Smoker completed Curre nt Smoker eCW1 ([facility]) Smoking 10/05/2020 12:00:00 AM EST Current Smoker completed Curre nt Smoker eCW1 ([facility]) Smoking 09/07/2020 12:00:00 AM EST Current Smoker completed Curre nt Smoker eCW1 ([facility]) Smoking 09/07/2020 12:00:00 AM EST Current Smoker completed Curre nt Smoker eCW1 ([facility]) Smoking 09/07/2020 12:00:00 AM EST Current Smoker completed Curre nt Smoker eCW1 ([facility]) Alcohol intake 03/20/2020 12:00:00 AM EDT Current drinker of al cohol (finding) completed Current drinker of alcohol (finding) [facility] Tobacco use and exposure 03/20/2020 12:00:00 AM EDT Current user co mpleted Current user [facility] Cigarette pack-years 03/20/2020 12:00:00 AM EDT UNK completed [facility] Cigarettes smoked current (pack per day) - Reported 03/20/20 12:00:00 AM EDT UNK completed [facility] Smoking 03/20/2020 12:00:00 AM EDT Current every day smoker co mpleted Current every day smoker [facility] Cigarette pack-years 03/20/2020 12:00:00 AM EDT UNK completed [facility] Cigarettes smoked current (pack per day) - Reported 03/20/20 12:00:00 AM EDT UNK completed [facility] Smoking 03/20/2020 12:00:00 AM EDT Current every day smoker co mpleted Current every day smoker [facility] Smoking 12/09/2019 12:00:00 AM EDT Current Smoker completed Curre nt Smoker eCW1 ([facility]) Smoking 12/09/2019 12:00:00 AM EDT Current Smoker completed Curre nt Smoker eCW1 ([facility]) Smoking 12/09/2019 12:00:00 AM EDT Current Smoker completed Curre nt Smoker eCW1 ([facility]) Smoking 12/09/2019 12:00:00 AM EDT Current Smoker completed Curre nt Smoker eCW1 ([facility]) Smoking 12/09/2019 12:00:00 AM EDT Current Smoker completed Curre nt Smoker eCW1 ([facility]) Smoking 12/09/2019 12:00:00 AM EDT Current Smoker completed Curre nt Smoker eCW1 ([facility]) Vital Signs ID Date Data Source UNK Name Value Range Interpretation Code Description Data Source(s) Diastolic blood pressure 90 mm[Hg] 90 mm[Hg] eCW1 ([facility]) Systolic blood pressure 160 mm[Hg] 160 mm[Hg] e CW1 ([facility]) Body temperature 99.9 [degF] 99.9 [degF] eCW1 ( [facility]) Respiratory rate 18 /min 18 /min eCW1 ([facility]) Heart rate 111 /min 111 /min eCW1 ([facility]) Body mass index (BMI) [Ratio] 25.04 kg/m2 25.04 kg/m2 eCW1 ([facility]) Body height 69 [in_i] 69 [in_i] eCW1 ([facility]) Body weight 169.6 [lb_av] 169.6 [lb_av] eCW1 ([facility]) Diastolic blood pressure 90 mm[Hg] 90 mm[Hg] eCW1 ([facility]) Systolic blood pressure 144 mm[Hg] 144 mm[Hg] e CW1 ([facility]) Body temperature 97.2 [degF] 97.2 [degF] eCW1 ( [facility]) Respiratory rate 20 /min 20 /min eCW1 ([facility]) Heart rate 73 /min 73 /min eCW1 ([facility]) Body mass index (BMI) [Ratio] 26.14 kg/m2 26.14 kg/m2 eCW1 ([facility]) Body height 69 [in_i] 69 [in_i] eCW1 ([facility]) Body weight 177 [lb_av] 177 [lb_av] eCW1 ([facility]) Diastolic blood pressure 80 mm[Hg] 80 mm[Hg] eCW1 ([facility]) Systolic blood pressure 144 mm[Hg] 144 mm[Hg] e CW1 ([facility]) Body temperature 96.1 [degF] 96.1 [degF] eCW1 ( [facility]) Respiratory rate 18 /min 18 /min eCW1 ([facility]) Heart rate 68 /min 68 /min eCW1 ([facility]) Body mass index (BMI) [Ratio] 26.31 kg/m2 26.31 kg/m2 eCW1 ([facility]) Body height 69 [in_us] 69 [in_us] eCW1 ([facility]) Body weight Measured 178.2 [lb_av] 178.2 [lb_av ] eCW1 ([facility]) Diastolic blood pressure 80 mm[Hg] 80 mm[Hg] eCW1 ([facility]) Systolic blood pressure 150 mm[Hg] 150 mm[Hg] e CW1 ([facility]) Body temperature 97.3 [degF] 97.3 [degF] eCW1 ( [facility]) Respiratory rate 20 /min 20 /min eCW1 ([facility]) Heart rate 68 /min 68 /min eCW1 ([facility]) Body mass index (BMI) [Ratio] 27.02 kg/m2 27.02 kg/m2 eCW1 ([facility]) Body height 69 [in_us] 69 [in_us] eCW1 ([facility]) Body weight Measured 183 [lb_av] 183 [lb_av] eC W1 ([facility]) Body weight 81.194 kg 81.194 kg [facility] ) Body mass index (BMI) [Ratio] 26.4 kg/m2 26.4 k g/m2 [facility] ([facility], ) Body weight 179.00 [lb_av] 179.00 [lb_av] MEDEN T ([facility], ) Body height 69 [in_i] 69 [in_i] [facility] ([facility], ) 5'9" Diastolic blood pressure 95 mm[Hg] 95 mm[Hg] [facility], [facility] Systolic blood pressure 152 mm[Hg] 152 mm[Hg] M EDENT ([facility], ) Diastolic blood pressure 88 mm[Hg] 88 mm[Hg] eCW1 ([facility]) Systolic blood pressure 150 mm[Hg] 150 mm[Hg] e CW1 ([facility]) Body temperature 97.6 [degF] 97.6 [degF] eCW1 ( [facility]) Respiratory rate 17 /min 17 /min eCW1 ([facility]) Heart rate 76 /min 76 /min eCW1 ([facility]) Body mass index (BMI) [Ratio] 25.78 kg/m2 25.78 kg/m2 eCW1 ([facility]) Body height 69 [in_us] 69 [in_us] eCW1 ([facility]) Body weight Measured 174.6 [lb_av] 174.6 [lb_av ] eCW1 ([facility]) Diastolic blood pressure 86 mm[Hg] 86 mm[Hg] eCW1 ([facility]) Systolic blood pressure 136 mm[Hg] 136 mm[Hg] e CW1 ([facility]) Body temperature 97.8 [degF] 97.8 [degF] eCW1 ( [facility]) Respiratory rate 18 /min 18 /min eCW1 ([facility]) Heart rate 74 /min 74 /min eCW1 ([facility]) Body mass index (BMI) [Ratio] 25.69 kg/m2 25.69 kg/m2 eCW1 ([facility]) Body height 69 [in_us] 69 [in_us] eCW1 ([facility]) Body weight Measured 174 [lb_av] 174 [lb_av] eC W1 ([facility]) ID Date Data Source [id number] 04/05/2020 03:09:27 PM EDT [facility] Name Value Range Interpretation Code Description Data Source(s) WEIGHT RECORDED 171.2 lb 171.2 lb [facility] ID Date Data Source [id number] 10/04/2019 10:01:00 AM EST [facility] Name Value Range Interpretation Code Description Data Source(s) Weight Measurement Method 1 1 [facility] Weight (Calculated Kilograms) 85.05 85.05 [facility] Weight 2928.0 2928.0 [facility] Temperature Source 7 7 [facility] Temperature 98.3 98.3 [facility] Respiratory Effort 1 1 [facility] Respiratory Rate 14 14 [facility] Pulse Assessment Method 4 4 [facility] Pulse Rate 63 63 [facility] Height (Calculated Centimeters) 175.26 175. 26 [facility] Height 69 69 [facility] Blood Pressure 170/92 170/92 [facility] Body Mass Index (BMI) 27.6 27.6 [facility] Weight Measurement Method 1 1 [facility] Weight (Calculated Kilograms) 85.05 85.05 [facility] Weight 2928.0 2928.0 [facility] Temperature Source 7 7 [facility] Temperature 98.3 98.3 [facility] Respiratory Effort 1 1 [facility] Respiratory Rate 14 14 [facility] Pulse Assessment Method 4 4 [facility] Pulse Rate 63 63 [facility] Height (Calculated Centimeters) 175.26 175. 26 [facility] Height 69 69 [facility] Blood Pressure 170/92 170/92 [facility] Body Mass Index (BMI) 27.6 27.6 [facility] Weight Measurement Method 1 1 [facility] Weight (Calculated Kilograms) 85.05 85.05 [facility] Weight 3000.0 3000.0 [facility] Temperature Source 7 7 [facility] Temperature 97.9 97.9 [facility] Respiratory Effort 1 1 [facility] Respiratory Rate 14 14 [facility] Pulse Assessment Method 4 4 [facility] Pulse Rate 62 62 [facility] Height (Calculated Centimeters) 175.26 175. 26 [facility] Height 69 69 [facility] Blood Pressure 144/87 144/87 [facility] Body Mass Index (BMI) 27.6 27.6 [facility] Weight Measurement Method 1 1 [facility] Weight (Calculated Kilograms) 85.05 85.05 [facility] Weight 3000.0 3000.0 [facility] Temperature Source 7 7 [facility] Temperature 98.4 98.4 [facility] Respiratory Effort 1 1 [facility] Respiratory Rate 16 16 [facility] Pulse Assessment Method 4 4 [facility] Pulse Rate 76 76 [facility] Height (Calculated Centimeters) 175.26 175. 26 [facility] Height 69 69 [facility] Blood Pressure 130/77 130/77 [facility] Body Mass Index (BMI) 27.6 27.6 [facility] Weight (Calculated Kilograms) 83.01 83.01 [facility] Height (Calculated Centimeters) 175.26 175. 26 [facility] Body Mass Index (BMI) 27.0 27.0 [facility] Patient Treatment Plan of Care Planned Activity Planned Date Details Description Data Source (s) 3 ML Insulin Glargine 100 UNT/ML Pen Injector [Lantus] 10/06/2020 12:00:00 AM EST eCW1 ([facility]) 3 ML Insulin Glargine 100 UNT/ML Pen Injector [Lantus] 10/06/2020 12:00:00 AM EST eCW1 ([facility]) 3 ML Insulin Glargine 100 UNT/ML Pen Injector [Lantus] 10/06/2020 12:00:00 AM EST eCW1 ([facility]) Tamsulosin hydrochloride 0.4 MG Oral Capsule 10/05/2020 12:00:00 AM EST eCW1 ([facility]) Sulfamethoxazole 800 MG / Trimethoprim 160 MG Oral Tab let [Bactrim] 10/05/2020 12:00:00 AM EST eCW1 ([facility]) Thiamine HCl 100 MG 10/05/2020 12:00:00 AM EST eCW1 ([facility]) Tamsulosin hydrochloride 0.4 MG Oral Capsule 10/05/2020 12:00:00 AM EST eCW1 ([facility]) Sulfamethoxazole 800 MG / Trimethoprim 160 MG Oral Tab let [Bactrim] 10/05/2020 12:00:00 AM EST eCW1 ([facility]) Thiamine HCl 100 MG 10/05/2020 12:00:00 AM EST eCW1 ([facility]) Sulfamethoxazole 800 MG / Trimethoprim 160 MG Oral Tab let [Bactrim] 10/05/2020 12:00:00 AM EST eCW1 ([facility]) Tamsulosin hydrochloride 0.4 MG Oral Capsule 10/05/2020 12:00:00 AM EST eCW1 ([facility]) Thiamine HCl 100 MG 10/05/2020 12:00:00 AM EST eCW1 ([facility]) ferrous sulfate 325 MG Oral Tablet 09/14/2020 12:00:00 AM EST eCW1 ([facility]) ferrous sulfate 325 MG Oral Tablet 09/14/2020 12:00:00 AM EST eCW1 ([facility]) ferrous sulfate 325 MG Oral Tablet 09/14/2020 12:00:00 AM EST eCW1 ([facility]) ferrous sulfate 325 MG Oral Tablet 09/14/2020 12:00:00 AM EST eCW1 ([facility]) ferrous sulfate 325 MG Oral Tablet 09/14/2020 12:00:00 AM EST eCW1 ([facility]) FreeStyle Lancets - 09/07/2020 12:00:00 AM EST eCW1 ([facility]) FreeStyle Lite - 09/07/2020 12:00:00 AM EST eCW1 ([facility]) Sucralfate 100 MG/ML Oral Suspension 09/07/2020 12:00:00 AM EST eCW1 ([facility]) Blood Glucose Test Strip - 09/07/2020 12:00:00 AM EST eCW1 ([facility]) Omeprazole 40 MG Delayed Release Oral Capsule 09/07/2020 12:00:00 A M EST eCW1 ([facility]) Omeprazole 40 MG Delayed Release Oral Capsule 09/07/2020 12:00:00 A M EST eCW1 ([facility]) Omeprazole 40 MG Delayed Release Oral Capsule 09/07/2020 12:00:00 A M EST eCW1 ([facility]) Sucralfate 100 MG/ML Oral Suspension 09/07/2020 12:00:00 AM EST eCW1 ([facility]) FreeStyle Lite - 09/07/2020 12:00:00 AM EST eCW1 ([facility]) Omeprazole 40 MG Delayed Release Oral Capsule 09/07/2020 12:00:00 A M EST eCW1 ([facility]) FreeStyle Lancets - 09/07/2020 12:00:00 AM EST eCW1 ([facility]) Blood Glucose Test Strip - 09/07/2020 12:00:00 AM EST eCW1 ([facility]) Sucralfate 100 MG/ML Oral Suspension 09/07/2020 12:00:00 AM EST eCW1 ([facility]) FreeStyle Lite - 09/07/2020 12:00:00 AM EST eCW1 ([facility]) Omeprazole 40 MG Delayed Release Oral Capsule 09/07/2020 12:00:00 A M EST eCW1 ([facility]) FreeStyle Lancets - 09/07/2020 12:00:00 AM EST eCW1 ([facility]) Blood Glucose Test Strip - 09/07/2020 12:00:00 AM EST eCW1 ([facility]) Omeprazole 40 MG Delayed Release Oral Capsule 09/07/2020 12:00:00 A M EST eCW1 ([facility]) pantoprazole 40 MG Delayed Release Oral Tablet 05/13/2020 12:00:00 AM [facility] Sucralfate 100 MG/ML Oral Suspension 05/13/2020 12:00:00 AM [facility] atorvastatin 20 MG Oral Tablet 03/28/2020 12:00:00 AM [facility] Amlodipine 10 MG Oral Tablet 03/28/2020 12:00:00 AM [facility] Lisinopril 40 MG Oral Tablet 03/28/2020 12:00:00 AM [facility] Tab-A-Martin/Beta Carotene Oral Tablet 03/28/2020 12:00:00 AM [facility] 24 HR Nicotine 0.875 MG/HR Transdermal Patch 03/28/2020 12:00:00 AM [facility] Thiamine 100 MG Oral Tablet 03/28/2020 12:00:00 AM [facility] Folic Acid 1 MG Oral Tablet 03/28/2020 12:00:00 AM [facility] Hydralazine Hydrochloride 20 MG/ML Injectable Solution 03/27/2020 09:00:00 AM [facility] carvedilol 25 MG Oral Tablet 03/27/2020 12:00:00 AM [facility] pantoprazole 40 MG Delayed Release Oral Tablet 03/27/2020 12:00:00 AM [facility] Naloxone HCl 4 MG/0.1ML Nasal Liquid (Narcan) 03/27/2020 12:00:00 A M [facility] Sucralfate 1000 MG Oral Tablet 03/27/2020 12:00:00 AM [facility] dextrose 50 % IV solution 25 mL 03/22/2020 03:36:45 PM [facility] Glucagon 1 MG Injection 03/22/2020 03:36:45 PM [facility] Glucose 0.417 MG/MG Oral Gel 03/22/2020 03:36:45 PM [facility] Tamsulosin hydrochloride 0.4 MG Oral Capsule [Flomax] 11/14/2019 12:00:00 AM EST eCW1 ([facility]) sildenafil 25 MG Oral Tablet [Viagra] 11/13/2019 12:00:00 AM EST eCW1 ([facility]) sildenafil 25 MG Oral Tablet [Viagra] 11/13/2019 12:00:00 AM EST eCW1 ([facility]) Amlodipine 5 MG Oral Tablet 10/24/2019 12:00:00 AM EST eCW1 ([facility]) Cephalexin 250 MG Oral Capsule [Keflex] 10/24/2019 12:00:00 AM EST eCW1 ([facility]) Fluoxetine 60 MG Oral Tablet 09/20/2019 12:00:00 AM EST eCW1 ([facility]) One touch ultra blue _ 09/20/2019 12:00:00 AM EST eCW1 ([facility]) May Have - 09/20/2019 12:00:00 AM EST e CW1 ([facility]) Nicotine 2 MG Oral Lozenge 09/20/2019 12:00:00 AM EST eCW1 ([facility]) Ibuprofen 600 MG Oral Tablet 12/09/2015 12:00:00 AM [facility] Mirtazapine 15 MG Oral Tablet 11/19/2015 12:00:00 AM [facility] terbinafine 250 MG Oral Tablet 11/18/2015 12:00:00 AM [facility] atorvastatin 20 MG Oral Tablet 10/06/2015 12:00:00 AM [facility] tramadol hydrochloride [address] [facility] Esomeprazole 40 MG Delayed Release Oral Capsule [facility] Atenolol 50 MG Oral Tablet [facility] Lisinopril [address] [facility] Metformin hydrochloride [address] [facility] carvedilol [address] [facility] Omeprazole 20 MG Delayed Release Oral Capsule [facility]
[2020-10-24] MEDS ORDERED: cefTRIAXone SOD 2 GM in D5W MINI-BAG PLUS 50 ML IV ONE (19:45)
[2020-10-24 20:17] LABS: BASO % 0.2 % (0.0-1.0); EOS % 0.5 % (0.0-3.0); HEMATOCRIT 27.1 % (42.0-52.0); HEMOGLOBIN 9.1 g/dl (13.5-17.5); LYMPH # 0.6 10^3/uL (1.5-5.0); LYMPH % 8.6 % (24.0-44.0); MEAN CORPUSCULAR HEMOGLOBIN 29.9 pg (27.0-33.0); MEAN CORPUSCULAR HGB CONC 33.6 g/dl (32.0-36.5); MEAN CORPUSCULAR VOLUME 89.1 fl (80.0-96.0); MONO # 0.4 10^3/uL (0.0-0.8); MONO % 5.4 % (2.0-8.0); NEUTROPHILS # 5.6 10^3/uL (1.5-8.5); NEUTROPHILS % 84.8 % (36.0-66.0); PLATELET COUNT, AUTOMATED 129 10^3/uL (150-450); RED BLOOD COUNT 3.04 10^6/uL (4.30-6.10); WHITE BLOOD COUNT 6.6 10^3/uL (4.0-10.0)
--- NOTE | 2020-10-24 20:18 | REPVR ---
PROCEDURE INFORMATION: Exam: XR Chest, 1 View Exam date and time: 10/24/2020 7:58 PM Age: 55 years old Clinical indication: Sepsis/shock TECHNIQUE: Imaging protocol: XR of the chest Views: 1 view. COMPARISON: [facility] PORTABLE CHEST X-RAY 10/21/2020 1:30 PM FINDINGS: Lungs: Unremarkable. No consolidation. No pulmonary edema. Pleural spaces: Unremarkable. No pleural effusion. No pneumothorax. Heart/Mediastinum: Unremarkable. No cardiomegaly. Bones/joints: Postsurgical changes are noted in the lower cervical spine, which are not fully evaluated in this study. IMPRESSION: No acute findings. Electronically signed by: Josesito Mackay On 10/24/2020 20:18:09 PM
[2020-10-24 20:28] LABS: INR 1.02; PROTHROMBIN TIME 13.6 SECONDS (12.5-14.3)
[2020-10-24 20:29] LABS: PARTIAL THROMBOPLASTIN TIME 21.7 SECONDS (24.2-38.5)
[2020-10-24 20:58] LABS: ALBUMIN 1.6 GM/DL (3.2-5.2); ALT/SGPT 23 U/L (12-78); AMYLASE 14 U/L (25-115); BILIRUBIN,DIRECT < 0.1 MG/DL (0.0-0.2); BILIRUBIN,TOTAL 0.6 MG/DL (0.2-1.0); BLOOD UREA NITROGEN 15 MG/DL (7-18); CALCIUM LEVEL 7.8 MG/DL (8.5-10.1); CARBON DIOXIDE LEVEL 26 MEQ/L (21-32); CHLORIDE LEVEL 99 MEQ/L (98-107); CK-MB VALUE MASS 5.2 NG/ML (<3.6); CPK CREATINE PHOSPHOKINASE 251 U/L (39-308); CREATININE FOR GFR 1.45 MG/DL (0.70-1.30); GLUCOSE, FASTING 355 MG/DL (70-100); MB/CK RELATIVE INDEX 2.07 (< OR =4); POTASSIUM SERUM 5.4 MEQ/L (3.5-5.1); SODIUM LEVEL 130 MEQ/L (136-145); TOTAL PROTEIN 5.3 GM/DL (6.4-8.2); TROPONIN I < 0.02 NG/ML (< 0.10)
--- OUTSIDE RECORDS SUMMARY | 2020-10-24 21:51 | CCD ---
Author Author [facility] Organization [facility] Address Unknown Phone Unavailable Care Team Providers Care Home Health Care Social Worker Name Role Phone KAREN RUANO MD Unavailable Unavailable KAREN RUANO MD Unavailable Unavailable KAREN RUANO MD Unavailable Unavailable KAREN RUANO MD Unavailable Unavailable KAREN RUANO MD Unavailable Unavailable KAREN RUANO MD Unavailable Unavailable KAREN RUANO MD Unavailable Unavailable Cheryl KAMARA MD Unavailable Unavailable Cheryl KAMARA MD Unavailable Unavailable Mike, Emanuel Wolf MD Unavailable Unavailable Mike, R Aiupclaudine GONZALES Unavailable Unavailable Mike, R Anupa MD Unavailable [...] is protected by Article 27-F of the [facility] Public Health law. If you continue you may have access to information: Regarding HIV / AIDS; Provided by facilities licensed or operated by the [facility] Office of Mental Health; or Provided by the [facility] Office for People With Developmental Disabilities. If such information is present, then the following [facility] mandated warning applies: This information has [...] law may result in a fine or longterm sentence or both. A general authorization for the release of medical or other information is NOT sufficient authorization for further disc losure. Family History Family Member Name Family Member Gender Family Member Status Date o f Status Description Data Source(s) Unknown Unknown Problem MEDENT ([facility], ) Encounters Encounter Providers Location Date Indications Data Source(s ) Outpatient Attender: OSMANY IBANEZ . 11/11/2020 12:00: 00 AM [facility] Outpatient Attender: OSMANY IBANEZ . 11/11/2020 12:00: 00 AM [facility] Unknown [address] [facility] [address] 10/06/2020 12:00:00 AM EST eCW1 ([facility]) Unknown [address] [facility] [address] 10/05/2020 12:00:00 AM EST eCW1 ([facility]) (TCM) Transition of Care Visit [address] [place] [address] 10/05/2020 12:00:00 AM EST eCW1 ([facility]) Unknown [address] [facility] [address] 09/29/2020 12:00:00 AM EST eCW1 ([facility]) Outpatient [address] [facility] [place] [address] 09/07/2020 12:00:00 AM EST eCW1 ([facility]) Unknown [address] [facility] [address] 09/07/2020 12:00:00 AM EST eCW1 ([facility]) Unknown [address] [facility] [address] 08/14/2020 12:00:00 AM EST eCW1 ([facility]) Outpatient Attender: OSMANY IBANEZ .Referrer: Eduin Haq [id number] 08/05/2020 12:00:00 AM EST - 08/05/2020 02:22:15 PM [facility] Outpatient Attender: OSMANY Haq [id number] 12:00:00 AM EST - 07/29/2020 03:37:01 PM EST Gastrojejunal ulcer, unspecified as acut e or chronic, without hemorrhage or perforation [facility] Gastrojejunal ulcer, unspecified as acut e or chronic, without hemorrhage or perforation Unknown [address] [facility] [address] 07/21/2020 12:00:00 AM EST eCW1 ([facility]) Outpatient Attender: Anne Giordano MIROSLAVA WATSON 07/13/2020 04:06:00 P M [facility] Outpatient Attender: Anne Giordano CINTHYARoselia BONI 07/13/2020 02:42:00 P [facility] Unknown [address] [facility] [address] 07/07/2020 12:00:00 AM EDT eCW1 ([facility]) Outpatient Attender: Anne Giordano MIROSLAVA PLATA 06/05/2020 08:01:22 P M [facility] Outpatient Attender: OSMANY Haq [id number] 05/13/2020 12:00:00 AM EDT Gastrojejunal ulcer, unspecified as acute or chronic, without hemorrhage or perforation [facility] Gastrojejunal ulcer, unspecified as acut e or chronic, without hemorrhage or perforation Outpatient Attender: Anne Giordano MIROSLAVA PLATA 05/01/2020 04:22:01 P M [facility] Outpatient Attender: Anne Giordano MIROSLAVA PLATA 04/30/2020 01:41:01 P M [facility] Outpatient Attender: Anne Giordano MIROSLAVA PLATA 04/29/2020 11:52:01 A M [facility] Outpatient Attender: OSMANY Haq 04/29/2020 12:00: 00 AM [facility] Outpatient Attender: Anne Giordano MIROSLAVA WATSON 04/24/2020 08:01:21 P M [facility] Unknown [address] [facility] [address] 04/01/2020 12:00:00 AM EDT eCW1 ([facility]) Unknown [address] [facility] [address] 04/01/2020 12:00:00 AM EDT eCW1 ([facility]) Outpatient Attender: OSMANY Haq [id number] 03/27/2020 08:40:39 AM [facility] Outpatient Attender: Maryann Mckeon MDReferrer: Maryann chow MD 03/25/2020 12:00:00 AM EDT [facility] Outpatient Attender: Maryann Mckeon MDReferrer: Maryann chow MD 03/25/2020 12:00:00 AM EDT [facility] Inpatient Attender: Maryann Mckeon MDAt tender: Felipe Dale MDAttender: Evaristo Stacy MDAttender: Aracelis Wright MDAdmitter: RASHAD ANDERSON MDReferrer: Aracelis Wright MD A-A 03/20/2020 12:00:00 AM EDT - 03/27/2020 03:17:00 PM EDT [facility] Patient discharged. Outpatient Attender: Anne WATSON 03/12/2020 02:04:00 P M EDT [facility] Outpatient Attender: Anne PLATA 03/02/2020 08:47:00 A M EDT [facility] Outpatient Attender: Anne PLATA 02/24/2020 12:22:02 P M EDT [address], [facility] [address] 02/13/2020 12:00:00 AM EDT eCW1 ([facility]) [facility] [address] [place] [address] [place] [address] 02/12/2020 12:00:00 AM EDT eCW1 ([facility]) [address] [place] [address] 01/22/2020 12:00:00 AM EDT eCW1 ([facility]) Outpatient Attender: Anne PLATA 12/24/2019 09:56:00 [facility] [address] [place] [address] 12/09/2019 12:00:00 AM EDT eCW1 ([facility]) [address] [address] 12/06/2019 12:00:00 AM EDT eCW1 ([facility]) Outpatient Attender: Anne Giuliana WATSON 11/26/2019 02:55:00 P M [facility] Outpatient Attender: Anne Karmenamna MIROSLAVA PLATAC 11/26/2019 01:16:01 P M [facility] Outpatient Attender: Anne Karmenamna MIROSLAVA PLATAC 11/20/2019 11:01:01 A M [facility] Outpatient Attender: Anne Karmenamna MIROSLAVA PLATAC 11/20/2019 10:36:00 A M [facility] Outpatient Attender: Anne Karmenamna MIROSLAVA PLATAC 11/20/2019 10:36:00 A M [address], [facility] [address] 11/14/2019 12:00:00 AM EST eCW1 ([facility]) [address] [place] [address] 11/13/2019 12:00:00 AM EST eCW1 ([facility]) Outpatient Referrer: TAYLOR FERGUSON 11/12/2019 03:18:00 PM EST [address] [address] 11/12/2019 12:00:00 AM EST eCW1 ([facility]) Outpatient Attender: Anne WATSON 11/05/2019 10:42:01 A M [facility] Outpatient Attender: Anne Giuliana PLATAC 11/05/2019 10:03:01 A M [facility] Outpatient Attender: Anne Karmenamna MIROSLAVA PLATAC 11/01/2019 08:18:[address] [address] 11/01/2019 12:00:00 AM EST eCW1 ([facility]) Outpatient Attender: Anne WATSON 10/31/2019 10:13:00 A M [facility] Outpatient Attender: Anne WATSON 10/25/2019 08:02:20 P [facility] [address] [facility] [address] 10/24/2019 12:00:00 AM EST eCW1 ([facility]) Outpatient Attender: TAYLOR FERGUSON Physical Therapy 10/12 01:45:00 PM EST MEDENT ([facility]) [address] [address] 10/15/2019 12:00:00 AM EST eCW1 ([facility]) Outpatient Attender: Anne WATSON 10/14/2019 05:11:00 P [facility] Outpatient Attender: Anne PLATA 10/14/2019 05:10:[address] [address] 10/14/2019 12:00:00 AM EST eCW1 ([facility]) Outpatient Attender: Anne WATSON 10/11/2019 02:53:01 P [facility] Outpatient Attender: Anne PLATAC 10/08/2019 10:45:[address] [address] 10/07/2019 12:00:00 AM EST eCW1 ([facility]) Outpatient Attender: Anne WATSON 10/04/2019 10:34:01 A [facility] Outpatient Attender: Anne WATSON 10/04/2019 10:28:00 A [facility] Outpatient Attender: Anne WATSON 10/04/2019 10:27:00 A [facility] Outpatient Attender: Anne WATSON 10/04/2019 09:35:16 A [facility] Outpatient Attender: Anne WATSON 10/04/2019 09:29:[address] [place] [address] 10/04/2019 12:00:00 AM EST eCW1 ([facility]) Outpatient PENDING SALE TO [facility] 10/02/2019 09:01:13 PM EST [facility] Outpatient PENDING SALE TO [facility] 10/02/2019 12:17:01 PM EST [address] [address] 10/02/2019 12:00:00 AM EST eCW1 ([facility]) [address] [address] 09/20/2019 12:00:00 AM EST eCW1 ([facility]) [address] [address] 09/18/2019 12:00:00 AM EST eCW1 ([facility]) [address] [address] 09/16/2019 12:00:00 AM EST eCW1 ([facility]) Inpatient Attender: Karen Vickers nder: KAREN RUANO MDAdmitter: KAREN RUANO MD CPSCAORT-[facility]PPDREH 07/01/2019 11:27:00 AM EDT - 07/29/2019 12:14:00 PM EST PSYCHOACTIVE SUBSTANCE DEPENDENCE [facility] PSYCHOACTIVE SUBSTANCE DEPENDENCE Patient discharged. Medications Medication Brand Name Start Date Product Form Dose Route Admi nistrative Instructions Pharmacy Instructions Status Indications Reaction Description Data Source(s) 3 ML Insulin Glargine 100 UNT/ML Pen Inj shruthi [Lantus] Lantus SoloStar 100 UNIT/ML Lantus SoloStar 100 UNIT/ML 10/06/2020 12:00:00 AM EST active Lantus SoloStar 100 UNIT/ML eCW1 ([facility]) 3 ML Insulin Glargine 100 UNT/ML Pen Inj shruthi [Lantus] Lantus SoloStar 100 UNIT/ML Lantus SoloStar 100 UNIT/ML 10/06/2020 12:00:00 AM EST active Lantus SoloStar 100 UNIT/ML eCW1 ([facility]) 3 ML Insulin Glargine 100 UNT/ML Pen Inj shruthi [Lantus] Lantus SoloStar 100 UNIT/ML Lantus SoloStar 100 UNIT/ML 10/06/2020 12:00:00 AM EST active Lantus SoloStar 100 UNIT/ML eCW1 ([facility]) Tamsulosin hydrochloride 0.4 MG Oral Capsule Tamsulosi n HCl 0.4 MG Tamsulosin HCl 0.4 MG 10/05/2020 12:00:00 AM EST 1.0 {capsule} active Tamsulosin HCl 0.4 MG eCW1 ([facility]) Thiamine HCl 100 MG Thiamine HCl 100 MG 10/05/2020 12:00:00 AM EST 1.0 {tablet} active Thiamine HCl 100 MG eCW 1 ([facility]) Sulfamethoxazole 800 MG / Trimethoprim 1 60 MG Oral Tablet [Bactrim] Bactrim DS 800-160 MG Bactrim DS 800-160 MG 10/05/2020 12:00:00 AM EST 1.0 {table t} active Bactrim DS 800-160 MG eCW1 ( [facility]) Sulfamethoxazole 800 MG / Trimethoprim 1 60 MG Oral Tablet [Bactrim] Bactrim DS 800-160 MG Bactrim DS 800-160 MG 10/05/2020 12:00:00 AM EST 1.0 {table t} active Bactrim DS 800-160 MG eCW1 ( [facility]) Sulfamethoxazole 800 MG / Trimethoprim 1 60 MG Oral Tablet [Bactrim] Bactrim DS 800-160 MG Bactrim DS 800-160 MG 10/05/2020 12:00:00 AM EST 1.0 {table t} active Bactrim DS 800-160 MG eCW1 ( [facility]) Tamsulosin hydrochloride 0.4 MG Oral Capsule Tamsulosi n HCl 0.4 MG Tamsulosin HCl 0.4 MG 10/05/2020 12:00:00 AM EST 1.0 {capsule} active Tamsulosin HCl 0.4 MG eCW1 ([facility]) Tamsulosin hydrochloride 0.4 MG Oral Capsule Tamsulosi n HCl 0.4 MG Tamsulosin HCl 0.4 MG 10/05/2020 12:00:00 AM EST 1.0 {capsule} active Tamsulosin HCl 0.4 MG eCW1 ([facility]) Thiamine HCl 100 MG Thiamine HCl 100 MG 10/05/2020 12:00:00 AM EST 1.0 {tablet} active Thiamine HCl 100 MG eCW 1 ([facility]) Thiamine HCl 100 MG Thiamine HCl 100 MG 10/05/2020 12:00:00 AM EST 1.0 {tablet} active Thiamine HCl 100 MG eCW 1 ([facility]) ferrous sulfate 325 MG Oral Tablet Ferrous Sulfate 325 (65 Fe) MG Ferrous Sulfate 325 (65 Fe) MG 09/14/2020 12:00:00 AM EST 2.0 {tablets} active Ferrous Sulfate 325 (65 Fe) MG eCW1 ([facility]) ferrous sulfate 325 MG Oral Tablet Ferrous Sulfate 325 (65 Fe) MG Ferrous Sulfate 325 (65 Fe) MG 09/14/2020 12:00:00 AM EST 2.0 {tablets} active Ferrous Sulfate 325 (65 Fe) MG eCW1 ([facility]) ferrous sulfate 325 MG Oral Tablet Ferrous Sulfate 325 (65 Fe) MG Ferrous Sulfate 325 (65 Fe) MG 09/14/2020 12:00:00 AM EST 2.0 {tablets} active Ferrous Sulfate 325 (65 Fe) MG eCW1 ([facility]) ferrous sulfate 325 MG Oral Tablet Ferrous Sulfate 325 (65 Fe) MG Ferrous Sulfate 325 (65 Fe) MG 09/14/2020 12:00:00 AM EST 2.0 {tablets} active Ferrous Sulfate 325 (65 Fe) MG eCW1 ([facility]) ferrous sulfate 325 MG Oral Tablet Ferrous Sulfate 325 (65 Fe) MG Ferrous Sulfate 325 (65 Fe) MG 09/14/2020 12:00:00 AM EST 2.0 {tablets} active Ferrous Sulfate 325 (65 Fe) MG eCW1 ([facility]) FreeStyle Lite - FreeStyle Lite - 09/07/2020 12:00:00 AM EST active FreeStyle Lite - eCW1 ([facility]) FreeStyle Lite - FreeStyle Lite - 09/07/2020 12:00:00 AM EST active FreeStyle Lite - eCW1 ([facility]) FreeStyle Lite - FreeStyle Lite - 09/07/2020 12:00:00 AM EST active FreeStyle Lite - eCW1 ([facility]) FreeStyle Lancets - FreeStyle Lancets - 09/07/2020 12:00:00 AM EST active FreeStyle Lancets - eCW1 ([facility]) Sucralfate 100 MG/ML Oral Suspension Sucralfate 1 GM/10ML Lawler cralfate 1 GM/10ML 09/07/2020 12:00:00 AM EST 10.0 {ml_on_an_empty_stomach} active Sucralfate 1 GM/10ML eCW1 ([facility]) FreeStyle Lite - FreeStyle Lite - 09/07/2020 12:00:00 AM EST active FreeStyle Lite - eCW1 ([facility]) Omeprazole 40 MG Delayed Release Oral Capsule Omeprazole 40 MG 09/07/2020 12:00:00 AM EST active Omeprazo le 40 MG eCW1 ([facility]) Omeprazole 40 MG Delayed Release Oral Capsule Omeprazole 40 MG 09/07/2020 12:00:00 AM EST active Omeprazo le 40 MG eCW1 ([facility]) Sucralfate 100 MG/ML Oral Suspension Sucralfate 1 GM/10ML Lawler cralfate 1 GM/10ML 09/07/2020 12:00:00 AM EST 10.0 {ml_on_an_empty_stomach} active Sucralfate 1 GM/10ML eCW1 ([facility]) Blood Glucose Test Strip - UNK 09/07/2020 12:00:00 AM EST active Blood Glucose Test Strip - eCW1 ([facility]) FreeStyle Lancets - FreeStyle Lancets - 09/07/2020 12:00:00 AM EST active FreeStyle Lancets - eCW1 ([facility]) Omeprazole 40 MG Delayed Release Oral Capsule Omeprazole 40 MG 09/07/2020 12:00:00 AM EST active Omeprazo le 40 MG eCW1 ([facility]) FreeStyle Lancets - FreeStyle Lancets - 09/07/2020 12:00:00 AM EST active FreeStyle Lancets - eCW1 ([facility]) Blood Glucose Test Strip - UNK 09/07/2020 12:00:00 AM EST active Blood Glucose Test Strip - eCW1 ([facility]) Blood Glucose Test Strip - UNK 09/07/2020 12:00:00 AM EST active Blood Glucose Test Strip - eCW1 ([facility]) FreeStyle Lite - FreeStyle Lite - 09/07/2020 12:00:00 AM EST active FreeStyle Lite - eCW1 ([facility]) Blood Glucose Test Strip - UNK 09/07/2020 12:00:00 AM EST active Blood Glucose Test Strip - eCW1 ([facility]) Blood Glucose Test Strip - UNK 09/07/2020 12:00:00 AM EST active Blood Glucose Test Strip - eCW1 ([facility]) Omeprazole 40 MG Delayed Release Oral Capsule Omeprazole 40 MG 09/07/2020 12:00:00 AM EST active Omeprazo le 40 MG eCW1 ([facility]) Sucralfate 100 MG/ML Oral Suspension Sucralfate 1 GM/10ML Lawler cralfate 1 GM/10ML 09/07/2020 12:00:00 AM EST 10.0 {ml_on_an_empty_stomach} active Sucralfate 1 GM/10ML eCW1 ([facility]) Omeprazole 40 MG Delayed Release Oral Capsule Omeprazole 40 MG 09/07/2020 12:00:00 AM EST active Omeprazo le 40 MG eCW1 ([facility]) FreeStyle Lancets - FreeStyle Lancets - 09/07/2020 12:00:00 AM EST active FreeStyle Lancets - eCW1 ([facility]) FreeStyle Lite - FreeStyle Lite - 09/07/2020 12:00:00 AM EST active FreeStyle Lite - eCW1 ([facility]) FreeStyle Lancets - FreeStyle Lancets - 09/07/2020 12:00:00 AM EST active FreeStyle Lancets - eCW1 ([facility]) Omeprazole 40 MG Delayed Release Oral Capsule Omeprazole 40 MG 09/07/2020 12:00:00 AM EST active Omeprazo le 40 MG eCW1 ([facility]) Blood Glucose Test Strip - UNK 09/07/2020 12:00:00 AM EST active Blood Glucose Test Strip - eCW1 ([facility]) FreeStyle Lancets - FreeStyle Lancets - 09/07/2020 12:00:00 AM EST active FreeStyle Lancets - eCW1 ([facility]) Sucralfate 100 MG/ML Oral Suspension Suc ralfate 1 GM/10ML Oral Suspension (Carafate) Sucralfate 1 GM/10ML Oral Suspension (Carafate) 2019 12:00:00 AM EDT 1 g Oral active Marginal ulcer T rafa 10 mLs by mouth Four times daily [facility] Marginal ulcer pantoprazole 40 MG Delayed Release Oral Tablet Pantoprazole Sodium 40 MG Oral Tablet Delayed Release (PROTONIX) Pantoprazole Sodium 40 MG Oral Tablet De layed Release (PROTONIX) 05/13/2020 12:00:00 AM EDT 40 mg Oral active Marginal ulcer Take 1 tablet by mouth Two Times Daily [facility] Marginal ulcer Folic Acid 1 MG Oral Tablet Folic Acid 1 MG Oral Table t (FOLVITE) Folic Acid 1 MG Oral Tablet (FOLVITE) 03/28/2020 12:00:00 AM EDT 1 mg Oral active Take 1 tablet by mouth daily [facility] Amlodipine 10 MG Oral Tablet amLODIPine Besylate 10 MG Oral Tablet (NORVASC) amLODIPine Besylate 10 MG Oral Tablet (NORVASC) 03/28/2020 12:00:00 AM EDT 10 mg Oral active Take 1 tablet by mouth d [facility] Thiamine 100 MG Oral Tablet Thiamine HCl 100 MG Oral T ablet (B-1) Thiamine HCl 100 MG Oral Tablet (B-1) 03/28/2020 12:00:00 AM EDT 100 mg Oral active Take 1 tablet by mouth daily [facility] 24 HR Nicotine 0.875 MG/HR Transdermal P atch Nicotine 21 MG/24HR Transdermal Patch 24 Hour (NICODERM CQ) Nicotine 21 MG/24HR Transdermal Patch 24 Hour (NICODERM CQ) 03/28/2020 12:00:00 AM EDT 1 {patch} Transdermal active Place 1 patch onto the skin daily [facility] atorvastatin 20 MG Oral Tablet Atorvastatin Calcium 20 MG Oral Tablet (LIPITOR) Atorvastatin Calcium 20 MG Oral Tablet (LIPITOR) 03/28/2020 12:00:00 AM EDT 20 mg Oral active Take 1 tablet by mouth d [facility] Tab-A-Martin/Beta Carotene Oral Tablet 3976-5606-74 03/28/2020 12:00: 00 AM EDT 1 {tbl} Oral active Take 1 tablet by mouth d [facility] Lisinopril 40 MG Oral Tablet Lisinopril 40 MG Oral Tab let (ZESTRIL) Lisinopril 40 MG Oral Tablet (ZESTRIL) 03/28/2020 12:00:00 AM EDT 40 mg Oral active Take 1 tablet by mouth daily [facility] Hydralazine Hydrochloride 20 MG/ML Injec table Solution hydrALAZINE (APRESOLINE) injection 10 mg hydrALAZINE (APRESOLINE) injection 10 mg 03/27/2020 09 :00:00 AM EDT 10 mg Intravenous active 10 m g, Intravenous, Every 6 hours, First dose (after last modification) on Mon03/27/20 at 0900, For 11 doses
Dilute in 25-50 ml normal saline. Administer over 30 minutes.
Hold if SBP < 160
[facility] Medication administered onsite Naloxone HCl 4 MG/0.1ML Nasal Liquid (Narcan) [id number] 12:00:00 AM EDT 4 mg Nasal active 1 spray by Nasal route once for 1 dose [facility] Sucralfate 1000 MG Oral Tablet Sucralfate 1 GM Oral Ta blet (CARAFATE) Sucralfate 1 GM Oral Tablet (CARAFATE) 03/27/2020 12:00:00 AM EDT 1 g Oral active Take 1 tablet by mouth Four times daily [facility] pantoprazole 40 MG Delayed Release Oral Tablet Pantoprazole Sodium 40 MG Oral Tablet Delayed Release (PROTONIX) Pantoprazole Sodium 40 MG Oral Tablet De layed Release (PROTONIX) 03/27/2020 12:00:00 AM EDT 40 mg Oral aborted Take 1 tablet by mouth Two Times Daily [facility] carvedilol 25 MG Oral Tablet Carvedilol 25 MG Oral Tab let (COREG) Carvedilol 25 MG Oral Tablet (COREG) 03/27/2020 12:00:00 AM EDT 25 mg Oral active Take 1 tablet by mouth Two times daily with meals [facility] insulin lispro (HumaLOG) injection LOW DOSE EATING INS ULIN patients 1-8 Units 05567-938-96 03/26/2020 06:00:00 PM EDT Subcutaneous active 1-8 Units, Subcutaneous, Three Times Daily-With Meals, First dose on Samara 03/26/20 at 1800, For 30 days
Nursing MUST open the 'SQ Insulin Dosing Charts' Sidebar Report, or, the Patient Summary or Summary Report within the ED.
[facility] Medication administered onsite iohexol (OMNIPAQUE) 300 MG/ML contrast injection 100 mL 1776 02 03/26/2020 03:15:00 PM EDT 100 mL Given by IV completed 100 mL, Given by IV, 1 TIME IMAGING, [facility] 03/26/20 at 1515, For 1 dose [facility] Medication administered onsite barium (VOLUMEN) 0.1 % suspension 500 mL [id number] 03/26/2020 11 :15:00 AM EDT 500 mL Oral completed 500 mL, Or al, 1 TIME IMAGING, [facility] 03/26/20 at 1115, For 1 dose [facility] Medication administered onsite potassium chloride (K-DUR) dissolvable tablet 40 mEq [id number] 03/26/2020 07:45:00 AM EDT 40 meq Oral completed 40 mEq, Oral, Once, [facility] 03/26/20 at 0745, For 1 dose
May be dissolved in water for patients with a G-Tube or unable to swallow. If concern for clogging G-Tube, may contact Pharmacy to switch formulation to a powder packet.
[facility] Medication administered onsite Acetaminophen 325 MG Oral Tablet acetaminophen (TYLENO L) tablet 650 mg acetaminophen (TYLENOL) tablet 650 mg 03/25/2020 10:45:00 PM EDT 65 0 mg Oral completed 650 mg, Oral, O nce, 03/25/20 at 2245, For 1 dose
Maximum daily dose of acetaminophen is 3,000 mg from all sources in 24 hours.
[facility] Medication administered onsite pantoprazole 40 MG Delayed Release Oral Tablet pantoprazole (PROTONIX) EC tablet 40 mg pantoprazole (PROTONIX) EC tablet 40 mg 03/25/2020 09:00:00 PM E DT 40 mg Oral active 40 mg, Ora l, 2 Times Daily, First dose on Mon03/25/20 at 2100, For 10 days
Do not crush or chew
[facility] Medication administered onsite Sucralfate 1000 MG Oral Tablet sucralfate (CARAFATE) t ablet 1 g sucralfate (CARAFATE) tablet 1 g 03/25/2020 05:00:00 PM EDT 1 g Oral active 1 g, Oral, Four Times Daily Standard, First dose on Mon03/25/20 at 1700, For 30 days [facility] Medication administered onsite atorvastatin 20 MG Oral Tablet atorvastatin (LIPITOR) tablet 20 mg atorvastatin (LIPITOR) tablet 20 mg 03/25/2020 09:00:00 AM EDT 20 mg Oral active 20 mg, Oral, Daily Standard, First dose (after last modification) on Mon03/25/20 at 0900, For 7 days
Hazardous drug. Follow precautions. Dispose of properly.
[facility] Medication administered onsite potassium chloride (K-DUR) dissolvable tablet 40 mEq [id number] 03/25/2020 06:00:00 AM EDT 40 meq Oral completed 40 mEq, Oral, Once, Mon03/25/20 at 0600, For 1 dose
May be dissolved in water for patients with a G-Tube or unable to swallow. If concern for clogging G-Tube, may contact Pharmacy to switch formulation to a powder packet.
[facility] Medication administered onsite POLYETHYLENE GLYCOL 3350 59 MG/ML / Pota ssium Chloride 0.01 MEQ/ML / Sodium Bicarbonate 0.02 MEQ/ML / Sodium Chloride 0.025 MEQ/ML / sodium sulfate 0.04 MEQ/ML Oral Solution polyethylene glycol (GoLYTELY,NuLYTELY) suspension 2,000 mL polyethylene glycol (GoLYTELY,NuLYTELY) suspension 2,0 00 mL 03/25/2020 04:00:00 AM EDT 2000 mL Oral completed 2,000 mL, Oral, Once, Mon03/25/20 at 0400, For 1 dose [facility] Medication administered onsite POLYETHYLENE GLYCOL 3350 59 MG/ML / Pota ssium Chloride 0.01 MEQ/ML / Sodium Bicarbonate 0.02 MEQ/ML / Sodium Chloride 0.025 MEQ/ML / sodium sulfate 0.04 MEQ/ML Oral Solution polyethylene glycol (GoLYTELY,NuLYTELY) suspension 2,000 mL polyethylene glycol (GoLYTELY,NuLYTELY) suspension 2,0 00 mL 03/24/2020 09:00:00 PM EDT 2000 mL Oral completed 2,000 mL, Oral, Once, Mon03/24/20 at 2100, For 1 dose [facility] Medication administered onsite gabapentin 300 MG Oral Capsule gabapentin (NEURONTIN) capsule 600 mg gabapentin (NEURONTIN) capsule 600 mg 03/24/2020 05:00:00 PM EDT 600 mg Oral active 600 mg, Oral, Three Times D aily Standard, First dose (after last modification) on Mon03/24/20 at 1700, For 5 days [facility] Medication administered onsite Bisacodyl 5 MG Delayed Release Oral Tablet bisacodyl ( DULCOLAX) EC tablet 20 mg bisacodyl (DULCOLAX) EC tablet 20 mg 03/24/2020 04:00:00 PM EDT 20 mg Oral completed 20 mg, Oral, Onc e, Mon03/24/20 at 1600, For 1 dose
Do not crush or chew
[facility] Medication administered onsite Lisinopril 20 MG Oral Tablet lisinopril (ZESTRIL) tabl et 40 mg lisinopril (ZESTRIL) tablet 40 mg 03/24/2020 09:00:00 AM EDT 40 mg Oral active 40 mg, Oral, Daily Standard, First dose on Mon03/24/20 at 0900, For 30 days [facility] Medication administered onsite Hydralazine Hydrochloride 20 MG/ML Injec table Solution hydrALAZINE (APRESOLINE) injection 10 mg hydrALAZINE (APRESOLINE) injection 10 mg 03/24/2020 09 :00:00 AM EDT 10 mg Intravenous aborted 10 m g, Intravenous, Three Times Daily Standard, First dose on Mon03/24/20 at 0900, For 5 days
Dilute in 25-50 ml normal saline. Administer over 30 minutes.
[facility] Medication administered onsite Hydralazine Hydrochloride 20 [...] 30 minutes.
Hold if SBP < 160
[facility] Medication administered onsite Amlodipine 5 MG Oral Tablet amlodipine (NORVASC) table t 10 mg amlodipine (NORVASC) tablet 10 mg 03/24/2020 09:00:00 AM EDT 10 mg Oral active 10 mg, Oral, Daily Standard, First dose on Mon03/24/20 at 0900, For 30 days
Check vital signs before administering
[facility] Medication administered onsite potassium chloride (K-DUR) dissolvable tablet 40 mEq 52872-2 38-90 03/24/2020 08:00:00 AM EDT 40 meq Oral completed 40 mEq, Oral, Once, Mon03/24/20 at 0800, For 1 dose
May be dissolved in water for patients with a G-Tube or unable to swallow. If concern for clogging G-Tube, may contact Pharmacy to switch formulation to a powder packet.
[facility] Medication administered onsite Potassium Chloride 0.1 MEQ/ML Injectable Solution potassium chloride 10 mEq in 100 mL IVPB (premix) potassium chloride 10 mEq in 100 mL IVPB (premix) 03/24/2020 05:00:00 AM EDT 10 meq Intravenous aborted 10 mEq, Intravenous, Administer over 60 Minutes, Every 1 hour, First dose on Mon03/24/20 at 0500, For 4 doses [facility] Medication administered onsite potassium chloride (K-DUR) dissolvable tablet 40 mEq 92030-8 38-90 03/24/2020 04:45:00 AM EDT 40 meq Oral completed 40 mEq, Oral, Once, 7/14/20 at 0445, For 1 dose
May be dissolved in water for patients with a G-Tube or unable to swallow. If concern for clogging G-Tube, may contact Pharmacy to switch formulation to a powder packet.
[facility] Medication administered onsite Insulin Lispro 100 [...] than 400 mg/dL - notify the provider.
[facility] Medication administered onsite Lisinopril 10 MG Oral Tablet lisinopril (ZESTRIL) tabl et 20 mg lisinopril (ZESTRIL) tablet 20 mg 03/23/2020 09:00:00 PM EDT 20 mg Oral completed 20 mg, Oral, 2 Times Daily, First dose ( after last modification) on Mon03/23/20 at 2100, For 1 dose
Check vital signs before administering
[facility] Medication administered onsite 24 HR Nicotine 0.875 MG/HR Transdermal P atch nicotine (NICODERM CQ) 21 MG/24HR 1 patch nicotine (NICODERM CQ) 21 MG/24HR 1 patch 03/23/2020 08:45:00 PM EDT 1 {patch} Transdermal active 1 patch, Transdermal, Administer over 24 Hours, Daily Standard, First dose on Mon03/23/20 at 2045, For 30 days [facility] Medication administered onsite Bisacodyl 5 MG Delayed Release Oral Tablet bisacodyl ( DULCOLAX) EC tablet 20 mg bisacodyl (DULCOLAX) EC tablet 20 mg 03/23/2020 04:00:00 PM EDT 20 mg Oral completed 20 mg, Oral, Onc e, Mon03/23/20 at 1600, For 1 dose
Do not crush or chew
[facility] Medication administered onsite Hydralazine Hydrochloride 20 MG/ML Injec table Solution hydrALAZINE (APRESOLINE) injection 10 mg hydrALAZINE (APRESOLINE) injection 10 mg 03/23/2020 03 :30:00 PM EDT 10 mg Intravenous completed 10 mg, Intravenous, Once, Mon03/23/20 at 1530, For 1 dose
Dilute in 25-50 ml normal saline. Administer over 30 minutes.
[facility] Medication administered onsite 1 ML Lorazepam 2 MG/ML Injection LORazepam (ATIVAN) in jection 2 mg LORazepam (ATIVAN) injection 2 mg 03/23/2020 03:30:00 PM EDT 2 mg Intraveno us completed 2 mg, Intravenous, Once, 03/11 at 1530, For 1 dose [facility] Medication administered onsite insulin lispro (HUMALOG) injection LOW D OSE CLEAR LIQUID INSULIN patients 1-8 Units 26722-712-00 03/23/2020 11:30:00 AM EDT Subcutaneous aborted 1-8 Units, Subcutaneous, Before Meals - Three Times Daily, First dose on Mon03/23/20 at 1130, For 30 days
Nursing MUST open the 'SQ Insulin Dosing Charts' Sidebar Report, or, the Patient Summary or Summary Report within the ED.
[facility] Medication administered onsite pantoprazole 4 MG/ML Injectable Solution pantoprazole (PROTONIX) injection 40 mg pantoprazole (PROTONIX) injection 40 mg 03/23/2020 09:00:00 AM EDT 40 mg Intravenous aborted 40 mg, Intrav enous, Daily Standard, First dose on Mon03/23/20 at 0900, For 30 days [facility] Medication administered onsite 4 ML Labetalol hydrochloride 5 MG/ML [place] tr[place] labetalol (TRANDATE) injection 10 mg labetalol (TRANDATE) injection 10 mg 03/23/2020 08:15:41 AM EDT 10 mg Intravenous aborted 10 mg, Intrav enous, Every 6 hours PRN, High Blood Pressure, systolic BP greater than 170, Starting Mon03/23/20 at 0815, For 2 days [facility] Medication administered onsite insulin lispro (HumaLOG) injection LOW DOSE EATING INS ULIN patients 1-8 Units 30201-212-26 03/22/2020 06:00:00 PM EDT Subcutaneous aborted 1-8 Units, Subcutaneous, Three Times Daily-With Meals, First dose on Mon03/22/20 at 1800, For 30 days
Nursing MUST open the 'SQ Insulin Dosing Charts' Sidebar Report, or, the Patient Summary or Summary Report within the ED.
[facility] Medication administered onsite dextrose 50 % IV solution 25 mL [id number] 03/22/2020 03:36:45 PM E DT 25 mL Intravenous active 25 mL, Intrav enous, PRN, Other, blood glucose <55, Starting 03/22/20 at 1536, For 30 days
Not for midline administration.
[facility] Medication administered onsite Glucagon 1 MG Injection glucagon (human recombinant) ( GLUCAGEN) injection 1 mg glucagon (human recombinant) (GLUCAGEN) injection 1 mg 03/22/2020 03:36:45 PM EDT 1 mg Intramuscular active 1 mg, Intramuscular, PRN, for glucose <55 without IV access, Starting 03/22/20 at 1536, For 30 days [facility] Medication administered onsite Glucose 0.417 MG/MG Oral Gel glucose (GLUTOSE) 40 % or al gel 15 g glucose (GLUTOSE) 40 % oral gel 15 g 03/22/2020 03:36:45 PM EDT 15 g Oral active 15 g, Oral, PRN, Low blood s ugar, for gluose 55-69 mg/dl and able to take PO, Starting 03/22/20 at 1536, For 30 days [facility] Medication administered onsite Folic Acid 1 MG Oral Tablet folic acid (FOLVITE) table t 1 mg folic acid (FOLVITE) tablet 1 mg 03/22/2020 02:15:00 PM EDT 1 mg Oral active 1 mg, Oral, Daily Standard, First dose on 03/22/20 at 1415, For 30 days [facility] Medication administered onsite multivitamin tablet 1 tablet [id number] 03/22/2020 02:15:00 PM EDT 1 {tbl} Oral active 1 tablet, Oral , Daily Standard, First dose on 03/22/20 at 1415, For 30 days [facility] Medication administered onsite Thiamine 100 MG Oral Tablet thiamine (B-1) tablet 100 mg thiamine (B-1) tablet 100 mg 03/22/2020 02:15:00 PM EDT 100 mg Oral active 100 mg, Oral, Daily Standard, First dose on 03/22/20 at 1415, For 30 days [facility] Medication administered onsite Lorazepam 1 MG Oral Tablet LORazepam (ATIVAN) tablet 1 mg LORazepam (ATIVAN) tablet 1 mg 03/22/2020 02:10:13 PM EDT 1 mg Oral aborte d 1 mg, Oral, Every 4 hours PRN, Anxiety, Starting 03/22/20 at 1410, For 71 hours [facility] Medication administered onsite Naltrexone hydrochloride 50 MG Oral Tablet naltrexone (DEPADE) tablet 50 mg naltrexone (DEPADE) tablet 50 mg 03/22/2020 10:45:00 AM EDT 50 mg Oral active 50 mg, Oral, Daily Standard, First dose on 03/22/20 at 1045, For 30 days [facility] Medication administered onsite DULoxetine (CYMBALTA) DR capsule 90 mg 03/22/2020 10:45:00 AM EDT 90 mg Oral active 90 mg, Oral, D aily Standard, First dose on 03/22/20 at 1045, For 30 days
Do not crush or chew
[facility] Medication administered onsite Ceftriaxone 1000 MG Injection cefTRIAXone (ROCEPHIN) i nfusion 1 g (premix) cefTRIAXone (ROCEPHIN) infusion 1 g (premix) 03/21/2020 10:30:00 PM EDT 1 g Intravenous aborted 1 g, Intraven ous, at 100 mL/hr, Every 24 hours, First dose (after last modification) on 03/21/20 at 2230, For 4 doses
Discouraged Uses: Empiric treatment of post-surgical meningitis (ceftazidime preferred)
[facility] Medication administered onsite pantoprazole (PROTONIX) 0.4 mg/mL in sodium chloride 0.9 % 2 50 mL infusion 03/21/2020 09:30:00 PM EDT 8 mg/h Intravenous aborted 8 mg/hr (20 mL/hr), Intravenous, at 20 mL/hr, Continuous, Starting 03/21/20 at 2130, For 19 hours
Indication: Active GI bleed [facility] Medication administered onsite TC-99M labeled red blood cells (ULTRATAG) 03/21/2020 04:00 :00 PM EDT Intravenous completed Intravenous, Once, 03/21/20 at 1600, For 1 dose, Imaging Protocol [facility] Medication administered onsite pantoprazole (PROTONIX) 0.4 mg/mL in sodium chloride 0.9 % 2 50 mL infusion 03/21/2020 02:00:00 PM EDT 8 mg/h Intravenous aborted 8 mg/hr (20 mL/hr), Intravenous, at 20 mL/hr, Continuous, Starting 03/21/20 at 1400, For 30 days
Indication: Active GI bleed [facility] Medication administered onsite atorvastatin 20 MG Oral Tablet atorvastatin (LIPITOR) tablet 20 mg atorvastatin (LIPITOR) tablet 20 mg 03/21/2020 09:00:00 AM EDT 20 mg Oral aborted 20 mg, Oral, Daily Standard, First dose on 03/21/20 at 0900, For 5 days
Hazardous drug. Follow precautions. Dispose of properly.
[facility] Medication administered onsite carvedilol 25 MG Oral Tablet carvedilol (COREG) tablet 25 mg carvedilol (COREG) tablet 25 mg 03/21/2020 09:00:00 AM EDT 25 mg Oral activ e 25 mg, Oral, 2 Times Daily With Meals, First dose on 03/21/20 at 0900, For 30 days
Check vital signs before administering
[facility] Medication administered onsite gabapentin 300 MG Oral Capsule gabapentin (NEURONTIN) capsule 600 mg gabapentin (NEURONTIN) capsule 600 mg 03/21/2020 09:00:00 AM EDT 600 mg Oral aborted 600 mg, Oral, Three Times D aily Standard, First dose on 03/21/20 at 0900, For 15 doses [facility] Medication administered onsite iohexol (OMNIPAQUE) 300 MG/ML contrast injection 100 mL [id number] 1003/21/2020 06:00:00 AM EDT 100 mL Given by IV completed 100 mL, Given by IV, 1 TIME IMAGING, 03/21/20 at 0600, For 1 dose [facility] Medication administered onsite Lorazepam 1 MG [...] the CIWA score. Assess once patient awakens.
[facility] Medication administered onsite iohexol (OMNIPAQUE) 240 MG/ML contrast 20 mL [id number] 06/2020 11:53:33 PM EDT 20 mL Oral completed 20 mL, Oral, O nce PRN, Contrast, Per Protocol, Starting Mon03/20/20 at 2353, For [address] Scanner prior. call center supervisor to CT.Dilute in 500 mL liquid x1 bondactor machine operator to CT scan - per protocol. Use "Contrast dose chart" link for dosing guidelines.
[facility] Medication administered onsite iohexol (OMNIPAQUE) 240 MG/ML contrast 20 mL [id number] 06/2020 11:53:33 PM EDT 20 mL Oral completed 20 mL, Oral, O nce PRN, Contrast, Per Protocol, Starting Mon03/20/20 at 2353, For [address] to tell RN administration time of first dose. Dilute in 500 mL liquid x1 Now per protocol. Use "Contrast dose chart" link for dosing guidelines.
[facility] Medication administered onsite pantoprazole 4 MG/ML Injectable Solution pantoprazole (PROTONIX) injection 40 mg pantoprazole (PROTONIX) injection 40 mg 03/20/2020 11:45:00 PM EDT 40 mg Intravenous aborted 40 mg, Intrav enous, 2 Times Daily, First dose on Mon03/20/20 at 2345, For 30 days [facility] Medication administered onsite Lisinopril 20 MG Oral Tablet lisinopril (ZESTRIL) tabl et 20 mg lisinopril (ZESTRIL) tablet 20 mg 03/20/2020 10:45:00 PM EDT 20 mg Oral aborted 20 mg, Oral, 2 Times Daily, First dose (after last modification) on Mon03/20/20 at 2245, For 30 days
Check vital signs before administering
[facility] Medication administered onsite Ceftriaxone 2000 MG Injection cefTRIAXone (ROCEPHIN) I VPB (premix) 2 g cefTRIAXone (ROCEPHIN) IVPB (premix) 2 g 03/20/2020 10:30:00 PM EDT 2 g Intravenous aborted 2 g, Intraven ous, at 100 mL/hr, Every 24 hours, First dose on Mon03/20/20 at 2230, For 5 days
Discouraged Uses: Empiric treatment of post-surgical meningitis (ceftazidime preferred)
[facility] Medication administered onsite Calcium Chloride 0.0014 MEQ/ML / Potassi um Chloride 0.004 MEQ/ML / Sodium Chloride 0.103 MEQ/ML / Sodium Lactate 0.028 MEQ/ML Injectable Solution lactated ringers infusion lactated ringers infusion 03/20/2020 10:15:00 PM EDT 200 mL/h Intravenous aborted at 200 m L/hr, Intravenous, Continuous, Starting Mon03/20/20 at 2215, For 5 days [facility] Medication administered onsite Cyclobenzaprine hydrochloride 10 MG Oral Tablet cyclobenzaprine (FLEXERIL) tablet 10 mg cyclobenzaprine (FLEXERIL) tablet 10 mg 03/20/2020 10:05:35 PM EDT 10 mg Oral active 10 mg, Oral, Thr ee Times Daily-PRN, Muscle spasms, Starting Mon03/20/20 at 2205, For 30 days [facility] Medication administered onsite Tamsulosin hydrochloride 0.4 MG Oral Capsule [Flomax] Flomax 0.4 MG Flomax 0.4 MG 11/14/2019 12:00:00 AM EST active 1 capsule eCW1 ([facility]) Tamsulosin hydrochloride 0.4 MG Oral Capsule [Flomax] Flomax 0.4 MG Flomax 0.4 MG 11/14/2019 12:00:00 AM EST active 1 capsule eCW1 ([facility]) sildenafil 25 MG Oral Tablet [Viagra] Viagra 25 MG Viagra 25 MG 11/13/2019 12:00:00 AM EST active 1 tablet as needed eCW1 ([facility]) sildenafil 25 MG Oral Tablet [Viagra] Viagra 25 MG Viagra 25 MG 11/13/2019 12:00:00 AM EST active 1 tablet as needed eCW1 ([facility]) sildenafil 25 MG Oral Tablet [Viagra] Viagra 25 MG Viagra 25 MG 11/13/2019 12:00:00 AM EST active 1 tablet as needed eCW1 ([facility]) Magnesium Hydroxide 80 MG/ML Oral Suspension Milk Of Ovidio a 10/28/2019 12:00:00 AM EST ORAL active M EDENT ([facility], ) POLYETHYLENE GLYCOL 3350 105 MG/ML / Pot assium Chloride 0.69095 MEQ/ML / Sodium Bicarbonate 0.017 MEQ/ML / Sodium Chloride 0.0479 MEQ/ML Oral Solution [TriLyte] Trilyte 10/28/2019 12:00:00 AM EST active MEDENT ([facility], ) Amlodipine 5 MG Oral Tablet AmLODIPine Besylate 5 MG AmLODIP ine Besylate 5 MG 10/24/2019 12:00:00 AM EST active 1 tablet eCW1 ([facility]) Cephalexin 250 MG Oral Capsule [Keflex] Keflex 250 MG Keflex 250 MG 10/24/2019 12:00:00 AM EST active 1 capsul e eCW1 ([facility]) gabapentin 600 MG Oral Tablet Gabapentin 10/23/2019 12:00:00 AM EST active MEDENT ([facility]) May Have - UNK 09/20/2019 12:00:00 AM EST active May Have - eCW1 ([facility]) Fluoxetine 60 MG Oral Tablet FLUoxetine HCl 60 MG FLUoxetine HCl 60 MG 09/20/2019 12:00:00 AM EST active 1 tablet eCW1 ([facility]) Fluoxetine 60 MG Oral Tablet FLUoxetine HCl 60 MG FLUoxetine HCl 60 MG 09/20/2019 12:00:00 AM EST 1.0 {tablet} active FLUoxetine HCl 60 MG eCW1 ([facility]) Nystatin 464131 UNT/ML / Triamcinolone A cetonide 1 MG/ML Topical Cream Nystatin- Triamcinolone 601153-9.1 UNIT/GM Nystatin-Triamcinolone 204129-7.1 UNIT/GM 09/20/2019 12:00:00 AM EST 1.0 {application} act jack Nystatin- Triamcinolone 351952-7.1 UNIT/GM eCW1 ([facility]) Fluoxetine 60 MG Oral Tablet FLUoxetine HCl 60 MG FLUoxetine HCl 60 MG 09/20/2019 12:00:00 AM EST active 1 tablet eCW1 ([facility]) Fluoxetine 60 MG Oral Tablet FLUoxetine HCl 60 MG FLUoxetine HCl 60 MG 09/20/2019 12:00:00 AM EST 1.0 {tablet} active FLUoxetine HCl 60 MG eCW1 ([facility]) Fluoxetine 60 MG Oral Tablet FLUoxetine HCl 60 MG FLUoxetine HCl 60 MG 09/20/2019 12:00:00 AM EST 1.0 {tablet} active FLUoxetine HCl 60 MG eCW1 ([facility]) Nystatin 015755 UNT/ML / Triamcinolone A cetonide 1 MG/ML Topical Cream Nystatin- Triamcinolone 165468-0.1 UNIT/GM Nystatin-Triamcinolone 346170-7.1 UNIT/GM 09/20/2019 12:00:00 AM EST 1.0 {application} act jack Nystatin- Triamcinolone 281418-2.1 UNIT/GM eCW1 ([facility]) May Have - UNK 09/20/2019 12:00:00 AM EST active May Have - eCW1 ([facility]) Fluoxetine 60 MG Oral Tablet FLUoxetine HCl 60 MG FLUoxetine HCl 60 MG 09/20/2019 12:00:00 AM EST 1.0 {tablet} active FLUoxetine HCl 60 MG eCW1 ([facility]) Nystatin 563682 UNT/ML / Triamcinolone A cetonide 1 MG/ML Topical Cream Nystatin- Triamcinolone 956784-5.1 UNIT/GM Nystatin-Triamcinolone 808606-4.1 UNIT/GM 09/20/2019 12:00:00 AM EST active 1 application eCW1 ([facility]) May Have - UNK 09/20/2019 12:00:00 AM EST active cane eCW1 ([facility]) May Have - UNK 09/20/2019 12:00:00 AM EST active May Have - eCW1 ([facility]) Fluoxetine 60 MG Oral Tablet FLUoxetine HCl 60 MG FLUoxetine HCl 60 MG 09/20/2019 12:00:00 AM EST active 1 tablet eCW1 ([facility]) May Have - UNK 09/20/2019 12:00:00 AM EST active May Have - eCW1 ([facility]) Nicotine 2 MG Oral Lozenge Nicotine Polacrilex 2 MG Nicotine Polacrilex 2 MG 09/20/2019 12:00:00 AM EST active 1 lozenge as needed eCW1 ([facility]) May Have - UNK 09/20/2019 12:00:00 AM EST active May Have - eCW1 ([facility]) May Have - UNK 09/20/2019 12:00:00 AM EST active May Have - eCW1 ([facility]) Nystatin 754800 UNT/ML / Triamcinolone A cetonide 1 MG/ML Topical Cream Nystatin- Triamcinolone 486018-0.1 UNIT/GM Nystatin-Triamcinolone 613275-2.1 UNIT/GM 09/20/2019 12:00:00 AM EST 1.0 {application} act jack Nystatin- Triamcinolone 904639-7.1 UNIT/GM eCW1 ([facility]) May Have - UNK 09/20/2019 12:00:00 AM EST active May Have - eCW1 ([facility]) Nystatin 991952 UNT/ML / Triamcinolone A cetonide 1 MG/ML Topical Cream Nystatin- Triamcinolone 932749-3.1 UNIT/GM Nystatin-Triamcinolone 459861-2.1 UNIT/GM 09/20/2019 12:00:00 AM EST active 1 application eCW1 ([facility]) Fluoxetine 60 MG Oral Tablet FLUoxetine HCl 60 MG FLUoxetine HCl 60 MG 09/20/2019 12:00:00 AM EST active 1 tablet eCW1 ([facility]) Nystatin 201743 UNT/ML / Triamcinolone A cetonide 1 MG/ML Topical Cream Nystatin- Triamcinolone 407036-5.1 UNIT/GM Nystatin-Triamcinolone 905250-9.1 UNIT/GM 09/20/2019 12:00:00 AM EST active 1 application eCW1 ([facility]) May Have - UNK 09/20/2019 12:00:00 AM EST active May Have - eCW1 ([facility]) Fluoxetine 60 MG Oral Tablet FLUoxetine HCl 60 MG FLUoxetine HCl 60 MG 09/20/2019 12:00:00 AM EST 1.0 {tablet} active FLUoxetine HCl 60 MG eCW1 ([facility]) One touch ultra blue _ UNK 09/20/2019 12:00:00 AM EST active 1 bottle of test solution eCW1 ([facility]) May Have - UNK 09/20/2019 12:00:00 AM EST active cane eCW1 ([facility]) May Have - UNK 09/20/2019 12:00:00 AM EST active May Have - eCW1 ([facility]) Nystatin 755756 UNT/ML / Triamcinolone A cetonide 1 MG/ML Topical Cream Nystatin- Triamcinolone 045096-5.1 UNIT/GM Nystatin-Triamcinolone 237180-2.1 UNIT/GM 09/20/2019 12:00:00 AM EST 1.0 {application} act jack Nystatin- Triamcinolone 123320-7.1 UNIT/GM eCW1 ([facility]) Nystatin 585450 UNT/ML / Triamcinolone A cetonide 1 MG/ML Topical Cream Nystatin- Triamcinolone 978772-4.1 UNIT/GM Nystatin-Triamcinolone 353508-9.1 UNIT/GM 09/20/2019 12:00:00 AM EST 1.0 {application} act jack Nystatin- Triamcinolone 572438-6.1 UNIT/GM eCW1 ([facility]) Fluoxetine 60 MG Oral Tablet FLUoxetine HCl 60 MG FLUoxetine HCl 60 MG 09/20/2019 12:00:00 AM EST 1.0 {tablet} active FLUoxetine HCl 60 MG eCW1 ([facility]) Fluoxetine 60 MG Oral Tablet FLUoxetine HCl 60 MG FLUoxetine HCl 60 MG 09/20/2019 12:00:00 AM EST 1.0 {tablet} active FLUoxetine HCl 60 MG eCW1 ([facility]) Fluoxetine 60 MG Oral Tablet FLUoxetine HCl 60 MG FLUoxetine HCl 60 MG 09/20/2019 12:00:00 AM EST 1.0 {tablet} active FLUoxetine HCl 60 MG eCW1 ([facility]) May Have - UNK 09/20/2019 12:00:00 AM EST active cane eCW1 ([facility]) Nystatin 259864 UNT/ML / Triamcinolone A cetonide 1 MG/ML Topical Cream Nystatin- Triamcinolone 193242-4.1 UNIT/GM Nystatin-Triamcinolone 919944-8.1 UNIT/GM 09/20/2019 12:00:00 AM EST 1.0 {application} act jack Nystatin- Triamcinolone 690758-1.1 UNIT/GM eCW1 ([facility]) May Have - UNK 09/20/2019 12:00:00 AM EST active May Have - eCW1 ([facility]) May Have - UNK 09/20/2019 12:00:00 AM EST active May Have - eCW1 ([facility]) May Have - UNK 09/20/2019 12:00:00 AM EST active May Have - eCW1 ([facility]) Nystatin 111358 UNT/ML / Triamcinolone A cetonide 1 MG/ML Topical Cream Nystatin- Triamcinolone 160328-7.1 UNIT/GM Nystatin-Triamcinolone 110277-4.1 UNIT/GM 09/20/2019 12:00:00 AM EST active 1 application eCW1 ([facility]) Nicotine 2 MG Oral Lozenge Nicotine Polacrilex 2 MG Nicotine Polacrilex 2 MG 09/20/2019 12:00:00 AM EST active 1 lozenge as needed eCW1 ([facility]) May Have - UNK 09/20/2019 12:00:00 AM EST active cane eCW1 ([facility]) Fluoxetine 60 MG Oral Tablet FLUoxetine HCl 60 MG FLUoxetine HCl 60 MG 09/20/2019 12:00:00 AM EST 1.0 {tablet} active FLUoxetine HCl 60 MG eCW1 ([facility]) Ibuprofen 600 MG Oral Tablet ibuprofen (ADVIL,MOTRIN) 600 MG tablet ibuprofen (ADVIL,MOTRIN) 600 MG tablet 12/09/2015 12:00:00 AM EDT [facility] Mirtazapine 15 MG Oral Tablet mirtazapine (REMERON) 15 MG tablet mirtazapine (REMERON) 15 MG tablet 11/19/2015 12:00:00 AM EST [facility] terbinafine 250 MG Oral Tablet terbinafine (LAMISIL) 2 50 MG tablet terbinafine (LAMISIL) 250 MG tablet 11/18/2015 12:00:00 AM EST aborted [facility] atorvastatin 20 MG Oral Tablet atorvastatin (LIPITOR) 20 MG tablet atorvastatin (LIPITOR) 20 MG tablet 10/06/2015 12:00:00 AM EST aborted [facility] tramadol hydrochloride 50 MG Oral Tablet traMADol HCl 50 MG Oral Tablet (ULTRAM) traMADol HCl 50 MG Oral Tablet (ULTRAM) 50 mg Oral aborted Take 50 mg by mouth every 6 (six) hours as needed for Pain [facility] Lisinopril 20 MG Oral Tablet lisinopril (PRINIVIL,ZEST RIL) 20 MG tablet lisinopril (PRINIVIL,ZESTRIL) 20 MG tablet 20 mg Oral aborted Take 20 mg by mouth daily [facility] Atenolol 50 MG Oral Tablet Atenolol 50 MG Oral Tablet (TENORMIN) Atenolol 50 MG Oral Tablet (TENORMIN) 75 mg Oral aborted T rafa 75 mg by mouth daily [facility] Esomeprazole 40 MG Delayed Release Oral Capsule Esomeprazole Magnesium 40 MG Oral Capsule Delayed Release (NEXIUM) Esomeprazole Magnesium 40 MG Oral Capsul e Delayed Release (NEXIUM) 40 mg Oral aborted Take 40 mg by mouth daily [facility] Metformin hydrochloride 1000 MG Oral Tab let metformin (GLUCOPHAGE) 1000 MG tablet metformin (GLUCOPHAGE) 1000 MG tablet 1000 mg Oral aborted Take 1,000 mg by mouth Two times daily with meals. [facility] carvedilol 25 MG Oral Tablet carvedilol (COREG) 25 MG tablet carvedilol (COREG) 25 MG tablet 25 mg Oral aborted Juan Francisco e 25 mg by mouth Two times daily with meals. [facility] Omeprazole 20 MG Delayed Release Oral Ca psule omeprazole (PRILOSEC) 20 MG capsule omeprazole (PRILOSEC) 20 MG capsule 20 mg Oral aborted Take 20 mg by mouth Two times daily before meals. [facility] Insurance Providers Payer name Policy type / Coverage type Policy ID Covered alliance party ID Covered alliance party's relationship to glaser Policy Glaser Plan Information HUMANA GOLD [id number] SP [id number] EMEDNY [id number] SP [id number] HUMANA GOLD [id number] SP [id number] HUMANA MEDICARE ADVANTAGE G [id number] Self [id number] MEDICAID M [id number] Self [id number] HUMANA GOLD [id number] SP [id number] HUMANA GOLD O [id number] S [id number] MEDICAID M [id number] S [id number] MEDICARE [id number] SP [id number] MEDICARE [id number] SP [id number] A [employer] P [id number] S [id number] Medicaid S [id number] S [id number] HUMANA MEDICARE ADVANTAGE G [id number] Self [id number] MEDICARE A [id number] Self [id number] A MEDICAID [id number] SP [id number] Medicare S [id number] S [id number] MEDICARE [id number] Other [id number] MEDICARE [id number] S [id number] MEDICARE [id number] Other [id number] A ANSI-Medicare Part B [id number] ANSI-Medicaid [id number] ANSI-Medicare Part B [id number] ANSI-Medicaid [id number] ANSI-Medicare Part B [id number] ANSI-Medicaid [id number] [place] [id number] Self [id number] [place] [id number] Self CD3 [id number] Medicare [facility] Medicare Primary [id number] Self [id number] ANSI-Medicare Part B [id number] ANSI-Medicaid [id number] ANSI-Medicare Part B [id number] ANSI-Medicaid [id number] ANSI-Medicare Part B [id number] ANSI-Medicaid [id number] [place] [id number] Self CD3 [id number] [place] [id number] Self CD3 [id number] Medicare [facility] Medicare Primary [id number] Self [id number] ANSI-Medicaid [id number] ANSI-Medicare Part B [id number] [place] [id number] Self CD3 [id number] [place] [id number] Self CD3 [id number] [id number] Self [id number] ANS-Medicare Part B [id number] ANSI-Medicaid [id number] [place] [id number] Self CD3 [id number] [facility] [id number] Self CD3 [id number] [id number] Self [id number] ANSI-Medicaid [id number] ANS-Medicare Part B [id number] [facility] [id number] Self [id number] [facility] [id number] Self CD3 [id number] [place] [id number] Self [id number] ANSI-Medicaid [id number] ANSI-Medicare Part B [id number] ANSI-Medicaid [id number] ANS-Medicare Part B [id number] ANSI-Medicaid [id number] ANSI-Medicare Part B [id number] ANSI-Medicaid [id number] ANSI-Medicare Part B [id number] ANSI-Medicare Part B [id number] ANSI-Medicaid [id number] ANSI-Medicare Part B [id number] ANSI-Medicaid [id number] ANSI-Medicaid [id number] ANSI-Medicare Part B [id number] [facility] [id number] Self [id number] [id number] [facility] [id number] Self CD3 [id number] Medicare [facility] Medicare Primary [id number] Self [id number] ANSI-Medicare Part B [id number] ANSI-Medicaid [id number] Medicaid [employer] Part B [id number] Self [id number] Medicaid [employer] Part B [id number] Self [id number] [place] [id number] Self [id number] ANSI-Medicare Part B [id number] ANSI-Medicaid [id number] ANSI-Medicare Part B [id number] ANSI-Medicaid [id number] ANSI-Medicare Part B [id number] ANSI-Medicaid [id number] ANSI-Medicare Part B [id number] ANSI-Medicaid [id number] ANSI-Medicare Part B [id number] ANSI-Medicaid [id number] ANSI-Medicaid [id number] ANSI-Medicare Part B [id number] ANSI-Medicaid [id number] ANSI-Medicare Part B [id number] ANSI-Medicaid [id number] ANSI-Medicare Part B [id number] [place] [id number] Self [id number] [place] [id number] Self CD3 [id number] [place] Primary [id number] Self [id number] ANSI-Medicare Part B [id number] ANSI-Medicaid [id number] [place] [id number] Self CD3 [id number] [place] Primary [id number] Self [id number] MEDICARE [id number] SP [id number] [place] [id number] Self CD3 [id number] [place] [id number] Self CD3 [id number] [place] Primary [id number] Self [id number] [place]ig[place] [id number] Self CD3 [id number] [place] [id number] Self CD3 [id number] [place] Primary [id number] Self [id number] [place] Med[place] [id number] Self CD3 [id number] [place] Primary [id number] Self [id number] MEDICAID [id number] [place] [id number] Self CD3 [id number] [place]ig[place] [id number] Self CD3 [id number] [place] Primary [id number] Self [id number] MEDICARE C [id number] S [id number] [place] [id number] Self CD3 [id number] [place]ig[place] [id number] Self CD3 [id number] [place] Primary [id number] Self [id number] MEDICAID M [id number] Self [id number] [place] [id number] Self CD3 [id number] [place] [id number] Self CD3 [id number] [place] Primary [id number] Self [id number] Medicaid [place] Part [place] [id number] Self CD3 [id number] [place] [id number] Self CD3 [id number] Medicare [facility] Medicare Primary [id number] Self [id number] [place] [id number] Self CD3 [id number]ig[place] [id number] Self CD3 [id number] Medicare [facility] Medicare Primary [id number] Self [id number] [place] Med[place] [id number] Self CD3 [id number] [place] Medicare Primary [id number] Self [id number] [place] [id number] Self CD3 [id number] [place] Medicare Primary [id number] Self [id number] [place] Med[place] [id number] Self CD3 [id number] [place] Medicare Primary [id number] Self [id number] [place] [id number] Self CD3 [id number] [place] [id number] Self CD3 [id number] Medicare [facility] Medicare Primary [id number] Self [id number] [place] Part [place] [id number] Self CD3 [id number] [place] [id number] Self CD3 [id number] Medicare [facility] Medicare Primary [id number] Self [id number] [place] [id number] Self CD3 [id number] [place]ig[place] [id number] Self CD3 [id number] Medicare [facility] Medicare Primary [id number] Self [id number] Medicare [facility] Medicare Primary [id number] Self [id number] Medicaid [place] Part [place] [id number] Self CD3 [id number] [place] Part B [id number] Self CD3 [id number] Medicare [facility] Medicare Primary [id number] Self [id number] [place] Self Medicare [facility] Medicare Primary Self MEDICARE [id number] SP [id number] A SELF PAY UNAVAILABLE SP UNAVAILA BLE MEDICAID [id number] PT [id number] MEDICARE PART B [id number] PT [id number] MEDICARE PART A [id number] PT [id number] Problems, Conditions, and Diagnoses Code Display Name Description Problem Type Effective Dates Data Source(s) E13.10 0127312 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 Problem 10/06/2020 12:00:00 AM EST eCW1 ([facility]) K76.0 252090951 Fatty liver Problem 10/05/2020 12:00:[address] eCW1 ([facility]) N40.0 [id number] Benign prostatic hyp erplasia without lower urinary tract symptoms Problem 10/05/2020 12:00:00 AM EST eCW1 ([facility]) K50.919 31926733 Crohn's disease with complication, unspecified gastrointestinal tract location Problem 10/05/2020 12:00:00 AM EST eCW1 ([facility]) K70.0 71447440 Fatty liver due to alcoholism Problem 2020 12:00:00 AM EST eCW1 ([facility]) K86.0 717026548 Alcohol-induced chronic pancreatitis Prob yi 10/05/2020 12:00:00 AM EST eCW1 ([facility]) Y83.2 26710235 Surgical operation w ith anastomosis, bypass or graft as the cause of abnormal reaction of the patient, or of later complication, without mention of misadventure at the time of the procedure Problem 09/07/2020 12:0 0:00 AM EST eCW1 ([facility]) D50.0 649290210 Iron deficiency anemia due to chronic blo od loss Problem 07/21/2020 12:00:00 AM EST eCW1 ([facility]) N40.1 [id number] Benign prostatic hyp erplasia with lower urinary tract symptoms Problem 11/14/2019 12:00:00 AM EST eCW1 ([facility]) N40.1 [id number] Benign prostatic hyp erplasia with lower urinary tract symptoms Problem 11/14/2019 12:00:00 AM EST eCW1 ([facility]) E11.65 Hyperglycemia due to type 2 diabetes no litus Diabetes mellitus with hyperglycemia Problem 11/14/2019 12:00:00 AM EST eCW1 ([facility]) E29.1 27399538 Hypogonadism in male Problem 11/01/2019 12:0 0:00 AM EST eCW1 ([facility]) E29.1 10288739 Hypogonadism in male Problem 11/01/2019 12:0 0:00 AM EST eCW1 ([facility]) I10 Hypertension Hypertension Problem 11/01/2019 12:00:00 A M EST W1 ([facility]) N52.9 638185124 Erectile dysfunction, unspecifie d erectile dysfunction type Problem 10/24/2019 12:00:00 AM EST W1 ([facility]) K83.8 Other specified diseases of biliary trac t Other specified diseases of biliary tract Diagnosis 07/29/2020 11:27:57 AM [facility] K28.9 Gastrojejunal ulcer, unspeci fied as acute or chronic, without hemorrhage or perforation Gastrojejunal ulcer, unspecified as acut e or chronic, without hemorrhage or perforation Diagnosis 07/29/2020 11:27:57 AM [facility] K80.50 Calculus of bile duct withou t cholangitis or cholecystitis without obstruction Calculus of bile duct without cholangiti s or cholecystitis without obstruction Diagnosis [facility] Essential (primary) hypertension Essential (primary) h ypertension Diagnosis 03/21/2020 01:21:37 AM [facility] gi bleed, CBD & pancreatic duct stone bl ockage, SI gi bleed, CBD & pancreatic duct stone blockage, SI Diagnosis 03/20/2020 09:58:44 PM [facility] Surgeries/Procedures Procedure Description Date Indications Data Source(s) POCT GLUCOSE, DOCKED POCT GLUCOSE, DOCKED Routine 03/27/2020 12:28 PM EDT 03/27/2020 04:28:00 PM [facility] POCT GLUCOSE, DOCKED POCT GLUCOSE, DOCKED Routine 03/27/2020 8:57 AM EDT 03/27/2020 12:57:00 PM [facility] BLOOD COUNT COMPLETE AUTO&AUTO DIFRNTL WBC COUNT CBC AND DIFFER ENTIAL Timed 03/27/2020 3:17 AM EDT 03/27/2020 07:17:00 AM [facility] BASIC METABOLIC PANEL CALCIUM TOTAL BASIC METABOLIC PANEL Routi ne 03/27/2020 3:17 AM EDT 03/27/2020 07:17:00 AM T [facility] GLUCOSE QUANTITATIVE BLOOD XCPT REAGENT STRIP POCT GLUCOSE, DOC KED Routine 03/26/2020 10:40 PM EDT 03/27/2020 02:40:00 AM [facility] GLUCOSE QUANTITATIVE BLOOD XCPT REAGENT STRIP POCT GLUCOSEKARLO Routine 03/26/2020 10:00 PM EDT 03/27/2020 02:00:00 AM [facility] GLUCOSE QUANTITATIVE BLOOD XCPT REAGENT STRIP POCT GLUCOSE, KARLO ROBERTS Routine 03/26/2020 5:02 PM EDT 03/26/2020 09:02:[address] [facility] [address] ABDOEN & PELVIS W/CONTRAST MATERIAL CT ENTEROGRAPHY [id number] Ro utine 03/26/2020 3:27 PM EDT 03/26/2020 07:27:04 PM [facility] GLUCOSE QUANTITATIVE BLOOD XCPT REAGENT STRIP POCT GLUCOSEKARLO Routine 03/26/2020 12:34 PM EDT 03/26/2020 04:34:00 PM [facility] BLOOD COUNT COMPLETE AUTO&AUTO DIFRNTL WBC COUNT CBC AND DIFFER ENTIAL Timed 03/26/2020 12:28 PM EDT 03/26/2020 04:28:00 PM [facility] GLUCOSE QUANTITATIVE BLOOD XCPT REAGENT STRIP POCT GLUCOSE, KARLO ROBERTS Routine 03/26/2020 8:49 AM EDT 03/26/2020 12:49:00 PM [facility] BLOOD COUNT COMPLETE AUTO&AUTO DIFRNTL WBC COUNT CBC AND DIFFER ENTIAL Timed 03/26/2020 3:57 AM EDT 03/26/2020 07:57:00 AM [facility] BASIC METABOLIC PANEL CALCIUM TOTAL BASIC METABOLIC PANEL Routi ne 03/26/2020 3:57 AM EDT 03/26/2020 07:57:00 AM EDT [facility] GLUCOSE QUANTITATIVE BLOOD XCPT REAGENT STRIP POCT GLUCOSEKARLO Routine 03/25/2020 10:01 PM EDT 03/26/2020 02:01:00 AM [facility] GLUCOSE QUANTITATIVE BLOOD XCPT REAGENT STRIP POCT GLUCOSEKARLO Routine 03/25/2020 9:21 PM EDT 03/26/2020 01:21:00 AM [facility] BLOOD COUNT COMPLETE AUTOMATED CBC AND DIFFERENTIAL Timed 03/25/2020 9:00 PM EDT [facility] XCPT REAGENT STRIP POCT GLUCOSEKARLO Routine 03/25/2020 8:59 PM EDT 03/26/2020 12:59:00 AM [facility] GLUCOSE QUANTITATIVE BLOOD XCPT REAGENT STRIP POCT GLUCOSEKARLO Routine 03/25/2020 5:27 PM EDT 03/25/2020 09:27:00 PM [facility] GLUCOSE QUANTITATIVE BLOOD XCPT REAGENT STRIP POCT GLUCOSEKARLO Routine 03/25/2020 12:51 PM EDT 03/25/2020 04:51:00 PM [facility] BLOOD COUNT COMPLETE AUTO&AUTO DIFRNTL WBC COUNT CBC AND DIFFER ENTIAL Timed 03/25/2020 12:28 PM EDT 03/25/2020 04:28:00 PM [facility] UPPER GI ENDOSCOPY; DX, W/WO SPECIMEN COLLECTION, BRUS PAVEL/WASHING (SEP PROC) UPPER GI ENDOSCOPY; DX, W/WO SPECIMEN COLLECTION, BRUSHING/WASHING (SEP PROC) 03/25/2020 9:09 AM EDT Anemia 03/25/2020 01:09:00 PM EDT - 03/25/2020 02:28:00 PM [facility] COLONOSCOPY, FLEXIBLE, PROXIMAL TO SPLEN IC FLEXURE DX, W/WO SPECIMENS/COLON DECOMP (SEP PROC) COLONOSCOPY, FLEXIBLE, PROXIMAL TO SPLEN IC FLEXURE DX, W/WO SPECIMENS/COLON DECOMP (SEP PROC) 03/25/2020 9:09 AM EDT Anemia 03/25/2020 01:09:00 PM EDT - 03/25/2020 02:28:00 PM [facility] BLOOD COUNT COMPLETE AUTO&AUTO DIFRNTL WBC COUNT CBC AND DIFFER ENTIAL Timed 03/25/2020 2:54 AM EDT 03/25/2020 06:54:00 AM [facility] BASIC METABOLIC PANEL CALCIUM TOTAL BASIC METABOLIC PANEL Routi ne 03/25/2020 2:54 AM EDT 03/25/2020 06:54:00 AM EDT [facility] UPPER GI ENDOSCOPY UPPER GI ENDOSCOPY 03/25/2020 12:00 AM E DT 03/25/2020 04:00:00 AM [facility] Screening colonoscopy (procedure) COLONOSCOPY 03/25/2020 12 :00 AM EDT 03/25/2020 04:00:00 AM [facility] GLUCOSE QUANTITATIVE BLOOD XCPT REAGENT STRIP POCT GLUCOSEKARLO Routine 03/24/2020 8:40 PM EDT 03/25/2020 12:40:00 AM [facility] BLOOD COUNT COMPLETE AUTO&AUTO DIFRNTL WBC COUNT CBC AND DIFFER ENTIAL Timed 03/24/2020 6:37 PM EDT 03/24/2020 10:37:00 PM [facility] GLUCOSE QUANTITATIVE BLOOD XCPT REAGENT STRIP POCT GLUCOSE, KARLO ROBERTS Routine 03/24/2020 5:57 PM EDT 03/24/2020 09:57:00 PM [facility] GLUCOSE QUANTITATIVE BLOOD XCPT REAGENT STRIP POCT GLUCOSE, KARLO ROBERTS Routine 03/24/2020 12:37 PM EDT 03/24/2020 04:37:00 PM [facility] BLOOD COUNT COMPLETE AUTO&AUTO DIFRNTL WBC COUNT CBC AND DIFFER ENTIAL Timed 03/24/2020 10:58 AM EDT 03/24/2020 02:58:00 PM [facility] GLUCOSE QUANTITATIVE BLOOD XCPT REAGENT STRIP POCT GLUCOSE, KARLO ROBERTS Routine 03/24/2020 8:26 AM EDT 03/24/2020 12:26:00 PM [facility] BASIC METABOLIC PANEL CALCIUM TOTAL BASIC METABOLIC PANEL STAT 03/24/2020 3:40 AM EDT 03/24/2020 07:40:00 AM EDT [facility] BLOOD COUNT COMPLETE AUTO&AUTO DIFRNTL WBC COUNT CBC AND DIFFER ENTIAL Timed 03/24/2020 2:31 AM EDT 03/24/2020 06:31:00 AM [facility] BASIC METABOLIC PANEL CALCIUM TOTAL BASIC METABOLIC PANEL Routi ne 03/24/2020 2:31 AM EDT 03/24/2020 06:31:00 AM EDT [facility] GLUCOSE QUANTITATIVE BLOOD XCPT REAGENT STRIP POCT GLUCOSE, KARLO ROBERTS Routine 03/23/2020 9:26 PM EDT 03/24/2020 01:26:00 AM [facility] GLUCOSE QUANTITATIVE BLOOD XCPT REAGENT STRIP POCT GLUCOSE, KARLO ROBERTS Routine 03/23/2020 9:24 PM EDT 03/24/2020 01:24:00 AM [facility] EKG 12-LEAD - CMAXX REPORT EKG 12-LEAD - CMAXX REPORT 03/23/2020 8:07 PM EDT 03/24/2020 12:07:36 AM EDT [facility] EKG 12-LEAD - CMAXX REPORT EKG 12-LEAD - CMAXX REPORT 03/23/2020 8:07 PM EDT 03/24/2020 12:07:36 AM EDT [facility] EKG 12-LEAD - CMAXX REPORT EKG 12-LEAD - CMAXX REPORT 03/23/2020 8:07 PM EDT 03/24/2020 12:07:36 AM EDT [facility] EKG 12-LEAD EKG 12-LEAD Routine 03/23/2020 8:07 PM EDT 03/24/2020 12:07:36 AM [facility] BLOOD COUNT COMPLETE AUTO&AUTO DIFRNTL WBC COUNT CBC AND DIFFER ENTIAL Timed 03/23/2020 6:49 PM EDT 03/23/2020 10:49:00 PM [facility] GLUCOSE QUANTITATIVE BLOOD XCPT REAGENT STRIP POCT GLUCOSE, DOC KED Routine 03/23/2020 6:05 PM EDT 03/23/2020 10:05:00 PM [facility] GLUCOSE QUANTITATIVE BLOOD XCPT REAGENT STRIP POCT GLUCOSE, DOC KED Routine 03/23/2020 12:51 PM EDT 03/23/2020 04:51:00 PM [facility] GLUCOSE QUANTITATIVE BLOOD XCPT REAGENT STRIP POCT GLUCOSE, DOC KED Routine 03/23/2020 9:14 AM EDT 03/23/2020 01:14:00 PM [facility] BLOOD COUNT COMPLETE AUTOMATED CBC Routine 03/23/2020 8:49 A M EDT 03/23/2020 12:49:00 PM [facility] BASIC METABOLIC PANEL CALCIUM TOTAL BASIC METABOLIC PANEL Routi ne 03/23/2020 8:49 AM EDT 03/23/2020 12:49:00 PM EDT [facility] BLOOD COUNT COMPLETE AUTO&AUTO DIFRNTL WBC COUNT CBC AND DIFFER ENTIAL Timed 03/23/2020 6:06 AM EDT 03/23/2020 10:06:00 AM [facility] TRANSFUSE RBC (ONCE) TRANSFUSE RBC (ONCE) Routine 03/23/2020 4:40 AM EDT 03/23/2020 08:40:57 AM [facility] BLOOD COUNT COMPLETE AUTO&AUTO DIFRNTL WBC COUNT CBC AND DIFFER ENTIAL Timed 03/22/2020 11:15 PM EDT 03/23/2020 03:15:00 AM [facility] GLUCOSE QUANTITATIVE BLOOD XCPT REAGENT STRIP POCT GLUCOSE, KARLO ROBERTS Routine 03/22/2020 9:28 PM EDT 03/23/2020 01:28:00 AM [facility] GLUCOSE QUANTITATIVE BLOOD XCPT REAGENT STRIP POCT GLUCOSE, KARLO ROBERTS Routine 03/22/2020 5:43 PM EDT 03/22/2020 09:43:00 PM [facility] GLUCOSE QUANTITATIVE BLOOD XCPT REAGENT STRIP POCT GLUCOSE, KARLO ROBERTS Routine 03/22/2020 1:56 PM EDT 03/22/2020 05:56:00 PM [facility] BLOOD COUNT COMPLETE AUTO&AUTO DIFRNTL WBC COUNT CBC AND DIFFER ENTIAL Timed 03/22/2020 12:54 PM EDT 03/22/2020 04:54:00 PM [facility] MRI ABDOMEN W/O CONTRAST MATERIAL MR BILIARY TREE MRCP [id number] Ro manuelne 03/22/2020 11:27 AM EDT 03/22/2020 03:27:20 PM [facility] GLUCOSE QUANTITATIVE BLOOD XCPT REAGENT STRIP POCT GLUCOSE, KARLO ROBERTS Routine 03/22/2020 7:44 AM EDT 03/22/2020 11:44:00 AM [facility] BLOOD COUNT COMPLETE AUTO&AUTO DIFRNTL WBC COUNT CBC AND DIFFER ENTIAL Timed 03/22/2020 3:30 AM EDT 03/22/2020 07:30:00 AM [facility] COMPREHENSIVE METABOLIC PANEL COMPREHENSIVE METABOLIC PANEL Delonte rach 03/22/2020 3:30 AM EDT 03/22[facility] XCPT REAGENT STRIP POCT GLUCOSE, KARLO ROBERTS Routine 03/22/2020 3:19 AM EDT 03/22/2020 07:19:00 AM [facility] GLUCOSE QUANTITATIVE BLOOD XCPT REAGENT STRIP POCT GLUCOSE, KARLO ROBERTS Routine 03/21/2020 11:29 PM EDT 03/22/2020 03:29:00 AM [facility] BLOOD COUNT COMPLETE AUTO&AUTO DIFRNTL WBC COUNT CBC AND DIFFER ENTIAL Timed 03/21/2020 8:20 PM EDT 03/22/2020 12:20:00 AM [facility] GLUCOSE QUANTITATIVE BLOOD XCPT REAGENT STRIP POCT GLUCOSE, KARLO ROBERTS Routine 03/21/2020 5:21 PM EDT 03/21/2020 09:21:00 PM [facility] ACUTE GASTROINTESTINAL BLOOD LOSS IMAGING NM GI BLOOD LOSS IMAG ING [id number] STAT 03/21/2020 4:00 PM EDT 03/21/2020 08:00:03 PM [facility] BLOOD COUNT COMPLETE AUTOMATED CBC STAT 03/21/2020 1:56 P M EDT 03/21/2020 05:56:00 PM [facility] SODIUM URINE SODIUM, URINE, RANDOM Routine 03/21/2020 12:45 PM EDT 03/21/2020 04:45:00 PM [facility] GLUCOSE QUANTITATIVE BLOOD XCPT REAGENT STRIP POCT GLUCOSE, DOC KED Routine 03/21/2020 12:41 PM EDT 03/21/2020 04:41:00 PM [facility] LACTATE LACTIC ACID LEVEL, PLASMA Routine 03/21/2020 11:23 AM EDT 03/21/2020 03:23:00 PM [facility] OSMOLALITY BLOOD OSMOLALITY,BLOOD Routine 03/21/2020 11:02 AM EDT 03/21/2020 03:02:00 PM [facility] GLUCOSE QUANTITATIVE BLOOD XCPT REAGENT STRIP POCT GLUCOSE, DOC KED Routine 03/21/2020 7:58 AM EDT 03/21/2020 11:58:00 AM [facility] CT ABDOMEN W/CONTRAST MATERIAL CT ABDOMEN WITH CONTRAST [id number] S TAT 03/21/2020 6:05 AM EDT 03/21/2020 10:05:00 AM EDT [facility] CONFIRMATORY TYPE CONFIRMATORY TYPE Routine 03/21/2020 5:24 AM EDT 03/21/2020 09:24:00 AM [facility] BLOOD COUNT COMPLETE AUTO&AUTO DIFRNTL WBC COUNT CBC AND DIFFER ENTIAL STAT 03/21/2020 5:24 AM EDT 03/21/2020 09:24:00 AM [facility] COMPREHENSIVE METABOLIC PANEL COMPREHENSIVE METABOLIC PANEL Rou rach 03/21/2020 5:24 AM EDT 03/21/2020 09:24:00 AM EDT [facility] EKG 12-LEAD - CMAXX REPORT EKG 12-LEAD - CMAXX REPORT 03/21/2020 2:25 AM EDT 03/21/2020 06:25:01 AM EDT [facility] EKG 12-LEAD - CMAXX REPORT EKG 12-LEAD - CMAXX REPORT 03/21/2020 2:25 AM EDT 03/21/2020 06:25:01 AM EDT [facility] EKG 12-LEAD EKG 12-LEAD Routine 03/21/2020 2:25 AM EDT 03/21/2020 06:25:01 AM [facility] DRUGS OF ABUSE, URINE DRUGS OF ABUSE, URINE Routine 03/21/2020 12 :37 AM EDT 03/[facility] FECAL HGB DETER IA QUAL FECES 1-3 FECAL OCCULT BLOOD, LOWER GI (HEMOCCULT-ICT), FIT TESTING, Routine 03/21/2020 12:37 AM EDT 03/21/2020 04:37:00 AM [facility] IAAD EIA HIV-1 AG W/HIV-1&HIV-2 ANTBDY SINGLE HIV AG AB COMBO S CREEN Routine 03/21/2020 12:22 AM EDT 03/21/2020 04:22:00 AM [facility] ETHYL ALCOHOL LEVEL ETHYL ALCOHOL LEVEL Routine 03/21/2020 12:22 AM EDT 03/21/2020 04:22:00 AM [facility] HEPATITIS C ANTIBODY HEPATITIS C ANTIBODY Routine 03/21/2020 12:22 AM EDT 03/21/2020 04:22:00 AM [facility] IADNA HEPATITIS C QUANTIFICATION HEPATITIS C RNA, QUANTITATIVE, PCR Routine 03/21/2020 12:22 AM EDT 03/21/2020 04:22:00 AM [facility] PROTHROMBIN TIME PROTIME INR Routine 03/21/2020 12:22 AM EDT 03/21/2020 04:22:00 AM [facility] BLOOD COUNT COMPLETE AUTO&AUTO DIFRNTL WBC COUNT CBC AND DIFFER ENTIAL Routine 03/21/2020 12:22 AM EDT 03/21/2020 04:22:00 AM [facility] BLOOD TYPING ABO TYPE AND CROSSMATCH Routine 03/21/2020 12:22 AM ED T 03/21/2020 04:22:00 AM [facility] PHOSPHORUS INORGANIC PHOSPHORUS LEVEL Routine 03/21/2020 12:22 AM E DT 03/21/2020 04:22:00 AM [facility] MAGNESIUM MAGNESIUM LEVEL Routine 03/21/2020 12:22 AM EDT 03/21/2020 04:22:00 AM [facility] LIPASE LIPASE LEVEL Routine 03/21/2020 12:22 AM EDT 03/21/2020 04:22:00 AM [facility] LACTATE LACTIC ACID LEVEL, PLASMA Routine 03/21/2020 12:22 AM EDT 03/21/2020 04:22:00 AM [facility] CREATINE KINASE TOTAL CK Routine 03/21/2020 12:22 AM EDT 03/21/2020 04:22:00 AM [facility] COMPREHENSIVE METABOLIC PANEL COMPREHENSIVE METABOLIC PANEL Rou rahc 03/21/2020 12:22 AM EDT 03/21/2020 04:22:00 AM EDT [facility] GLUCOSE QUANTITATIVE BLOOD XCPT REAGENT STRIP POCT GLUCOSE, DOC KED Routine 03/21/2020 12:19 AM EDT 03/21/2020 04:19:00 AM [facility] Influenza A+B 12/09/2019 12:00:00 AM EDT eCW1 ([facility]) Office Visit, Est Pt., Level 2 FC 11/14/2019 12:00:00 AM EST eCW1 ([facility]) Office Visit, Est Pt., Level 4 PC 11/14/2019 12:00:00 AM EST eCW1 ([facility]) Office Visit, Est Pt., Level 4 FC 10/24/2019 12:00:00 AM EST eCW1 ([facility]) ELECTROCARDIOGRAM REPORT 10/24/2019 12:00:00 AM EST eCW1 ([facility]) ELECTROCARDIOGRAM TRACING 10/24/2019 12:00:00 AM EST eCW1 ([facility]) Results ID Date Data Source [id number] 10/21/2020 12:36:00 PM EST [facility] Name Value Range Interpretation Code Description Data Hazel rce(s) Supporting Document(s) SARS coronavirus 2 RNA [Presence] in Res piratory specimen by BURTON with probe detection NEGATIVE [facility] This lab was ordered by [facility] a nd reported by [facility]. ID Date Data Source ACETONE/KETONE 10/08/2020 12:00:00 AM EST eCW1 ([facility]) Name Value Range Interpretation Code Description Data Hazel rce(s) Supporting Document(s) 1.04 <2.81 ACETONE/KETONE eCW1 ([facility]) ID Date Data Source ETHYL ALCOHOL (ETHANOL) 10/08/2020 12:00:00 AM EST eCW1 ([facility]) Name Value Range Interpretation Code Description Data Hazel rce(s) Supporting Document(s) < 0.003 0.000-0.010 ETHYL ALCOHOL (ETHANOL) eCW1 ([facility]) ID Date Data Source Comprehensive Metabolic Profile (CMP) 10/08/2020 12:00:00 AM EST eCW1 ([facility]) Name Value Range Interpretation Code Description Data Hazel rce(s) Supporting Document(s) 531 70-100 GLUCOSE, FASTING eCW1 ([facility]) 134 136-145 SODIUM LEVEL eCW1 ([facility]) 10 7-18 BLOOD UREA NITROGEN eCW1 ([facility]) 1.20 0.70-1.30 CREATININE FOR GFR eCW1 ([facility]) > 60.0 >56 GLOMERULAR FILTRATION RATE eCW 1 ([facility]) 3.8 3.5-5.1 POTASSIUM SERUM eCW1 ([facility]) 100 98-107 CHLORIDE LEVEL eCW1 ([facility]) 7.8 8.5-10.1 CALCIUM LEVEL eCW1 ([facility]) 31 21-32 CARBON DIOXIDE LEVEL eCW1 ([facility]) 165 45-117 ALKALINE PHOSPHATASE eCW1 ([facility]) 24 12-78 ALT/SGPT eCW1 ([facility]) 0.3 0.2-1.0 BILIRUBIN,TOTAL eCW1 ([facility]) 16 7-37 AST/SGOT eCW1 ([facility]) 1.8 3.2-5.2 ALBUMIN eCW1 ([facility]) 4.7 6.4-8.2 TOTAL PROTEIN eCW1 ([facility]) 0.6 ALBUMIN/GLOBULIN RATIO eCW1 ([facility]) ID Date Data Source C REACTIVE PROTEIN QUANTITATIV (At [facility]) 10/05/2020 12:00 :00 AM EST eCW1 ([facility]) Name Value Range Interpretation Code Description Data Hazel rce(s) Supporting Document(s) 1.05 0.00-0.30 C REACTIVE PROTEIN QUANTI TATIV eCW1 ([facility]) ID Date Data Source MAGNESIUM LEVEL 10/05/2020 12:00:00 AM EST eCW1 ([facility]) Name Value Range Interpretation Code Description Data Hazel rce(s) Supporting Document(s) 1.6 1.8-2.4 MAGNESIUM LEVEL eCW1 ([facility]) ID Date Data Source FERRITIN 10/05/2020 12:00:00 AM EST eCW1 ([facility]) Name Value Range Interpretation Code Description Data Hazel rce(s) Supporting Document(s) 21 08-388 FERRITIN eCW1 ([facility]) ID Date Data Source IRON (FE) 10/05/2020 12:00:00 AM EST eCW1 ([facility]) Name Value Range Interpretation Code Description Data Hazel rce(s) Supporting Document(s) 17 68-175 IRON (FE) eCW1 ([facility]) ID Date Data Source LIPASE 10/05/2020 12:00:00 AM EST eCW1 ([facility]) Name Value Range Interpretation Code Description Data Hazel rce(s) Supporting Document(s) 44 43-393 LIPASE eCW1 ([facility]) ID Date Data Source CBC with Differential 10/05/2020 12:00:00 AM EST [facility]CW1 ([facility]) Name Value Range Interpretation Code Description Data Hazel rce(s) Supporting Document(s) 4.5 4.0-10.0 WHITE BLOOD COUNT eCW1 ([facility]) 3.02 4.30-6.10 RED BLOOD COUNT eCW1 ([facility]) 9.3 13.5-17.5 HEMOGLOBIN eCW1 ([facility]) 94.4 80.0-96.0 MEAN CORPUSCULAR VOLUME e CW1 ([facility]) 28.5 42.0-52.0 HEMATOCRIT eCW1 ([facility]) 30.8 27.0-33.0 MEAN CORPUSCULAR HEMOGLOB IN eCW1 ([facility]) 66.5 36.0-66.0 NEUTROPHILS % eCW1 ([facility]) 15.9 11.5-14.5 RED CELL DISTRIBUTION WID TH eCW1 ([facility]) 32.6 32.0-36.5 MEAN CORPUSCULAR HGB CONC eCW1 ([facility]) 393 150-450 PLATELET COUNT, AUTOMATED eCW1 ([facility]) 1.1 0.0-3.0 EOS % eCW1 ([facility]) 8.2 0.0-5.0 MONO % eCW1 ([facility]) 22.5 24.0-44.0 LYMPH % eCW1 ([facility]) 1.5 0.0-1.0 BASO % eCW1 ([facility]) 1.0 1.5-5.0 LYMPH # eCW1 ([facility]) 3.0 1.5-8.5 NEUTROPHILS # eCW1 ([facility]) 0.1 0.0-0.2 BASO # eCW1 ([facility]) 0.4 0.0-0.8 MONO # eCW1 ([facility]) 0.1 0.0-0.5 EOS # eCW1 ([facility]) ID Date Data Source AMYLASE 10/05/2020 12:00:00 AM EST eCW1 ([facility]) Name Value Range Interpretation Code Description Data Hazel rce(s) Supporting Document(s) 19 25-115 AMYLASE eCW1 ([facility]) ID Date Data Source [id number] 09/19/2020 01:19:00 AM EST [facility] Name Value Range Interpretation Code Description Data Hazel rce(s) Supporting Document(s) SARS coronavirus 2 RNA [Presence] in Res piratory specimen by BURTON with probe detection NEGATIVE [facility] This lab was ordered by [facility] a nd reported by [facility]. ID Date Data Source [id number] 09/07/2020 12:00:00 AM EST eCW1 ([facility]) Name Value Range Interpretation Code Description Data Hazel rce(s) Supporting Document(s) Hemoglobin A1c/Hemoglobin.total in Blood 7.4 HEMOGLOBIN A1c eCW1 ([facility]) ID Date Data Source [id number] 08/27/2020 11:52:[address] [facility] Name Value Range Interpretation Code Description Data Hazel rce(s) Supporting Document(s) Progress Note [facility] XKKCRy9zPlBSBjUu82/XOPbzZQGqn3IfIIieMNx8CJkvDCQhG7UqXTQ5mY3jGSL7GNvYSqTnTlRvXvK3 m [file] director of recreation therapy+fLF+woGVEjUoAGj7mJAOpbH3CaRPpEjkRuetGzOD5RskHaADKga7KaUnsSzZJbPnvKNVLfqQTo0d [file] health care aide+KtO2vyqBNKsSHzc3WsZ5fGcZSQncsDKmbphR8I [file] AyMTEwMyAwMDAwMCBuDQowMDAwMDMyNTMzIDAwMDAw IB9SMcYrBTMvOkG5HCayBTItDTTgut3ARZUoNHCiSjP3WoUqWNXnWLByXDufHKAdMMTvSdJ8NRDcTOOv UN2BYwNrBOUgYhF5InWzGZGvIBIzgu3MRZUtGFIgSGWuSlLdSYAeYHAoDSgiOOGySOH7PJn5LNIlVJIf NZ8QBtHhBVBfYdT1ZpXsMNKoNBCuej1SIJFsYPIfTL C0LIWnKDJdHOLaAFmpRLJjVHA5VxF8FRJrXLGrHJ2MMpLxIMTkIjE1ElPiLCZpWNFwqr8VZYIxTXUkLk m9NOCkMMTgEHDcSVo9jeZjlZYxTXa0ZP7PK5DruvZbHhGVRt1Lw680OXYwOBYfDl3XN3utAe0bGORfFD IPDr2SEXl4DStpQVK4ZTN4LWVlIfP4HPUhMzUcEjV6 RpGfDRZmZ6C+XUgdOBU7BhdqYrywXsL6LFjtJzJoJUF4WRLySUZcGuLsMv9dHYPVJb4+DQpzdGFydHhy IVSGXzA6JXL6VOhqTAQQVs5C ID Date Data Source [id number] 08/22/2020 12:43:00 PM EST [facility] Name Value Range Interpretation Code Description Data Hazel rce(s) Supporting Document(s) SARS coronavirus 2 RNA [Presence] in Res piratory specimen by BURTON with probe detection [facility] This lab was ordered by [facility] a nd reported by [facility]. ID Date Data Source [id number] 07/31/2020 12:17:[address] [facility] Name Value Range Interpretation Code Description Data Hazel rce(s) Supporting Document(s) Progress Note [facility] AOXPEl6sHySPJuZs00/KRGqiCYMiq1OiYVyeTBs0SBskVTUfS2OaROE7hQ9kSXI3JShQTwPxEkMfPLRf lbm [file] YQUkQsF5PDPwAoZzVPP+SY6hRXa+Eu6Zo7QahgB6hpJiUHrlCkQaUK6HUMQLI0WTVn== ID Date Data Source [id number] 07/13/2020 02:25:35 PM [facility] Current Medications: BD INSULIN SYR ULTR AFINE [...] rce(s) Supporting Document(s) ID Date Data Source [id number] 05/13/2020 03:14:[address] [facility] Name Value Range Interpretation Code Description Data Hazel rce(s) Supporting Document(s) Progress Note [facility] WGEFZb4aImHIJjWr66/HSDidNDOno3RrRVgsEGp5ZVwfCNCaJ8KfSHN0hH8qDMN5HUzDGmIoLhWgRLZy lbm [file] TkPdUA0NZZd= ID Date Data Source [id number] 04/30/2020 12:48:34 PM EDT [facility] Current Medications: BD INSULIN SYR ULTR [...] rce(s) Supporting Document(s) ID Date Data Source [id number] 03/28/2020 07:03:[address] [facility] Name Value Range Interpretation Code Description Data Hazel rce(s) Supporting Document(s) Discharge Summary [facility] VKEUWm6oMbRMUuRy13/ULUfkJCRdq7SsVQcfJWc5CLglKUSxM9BpUQZ0zY9pTCW9CMvBCeVrXhRpJhU3 lbm [file] DDG8ZyL5EUQtWZedSaUdOI2RFd3KTbC5OWZ1nWNvTo1WMxd1PgwGSjAdYQ2VHVs= ID Date Data Source [id number] 03/27/2020 12:29:[address] [facility] Name Value Range Interpretation Code Description Data Hazel rce(s) Supporting Document(s) Glucose [Mass/volume] in Capillary blood by Glucometer 85 mg/dL 70- 140 [facility] ID Date Data Source [id number] 03/27/2020 11:51:[address] [facility] Name Value Range Interpretation Code Description Data Hazel rce(s) Supporting Document(s) Consultation [facility] NAODPm1pVrXMBcGo96/RNHioIGEpg9CtOClkAIl4XWksHZTqS9HpGAI5hJ6bRKQ2HCwBNiBdYlKgVcI2 lbm [file] A5DrXcNzTYJmFPM5Rm1yLGNPWj1+RHwtkWHpqMawUQNRRwteDtBRRgHjIK8KTWf= ID Date Data Source [id number] 03/27/2020 08:59:[address] [facility] Name Value Range Interpretation Code Description Data Hazel rce(s) Supporting Document(s) Glucose [Mass/volume] in Capillary blood by Glucometer 208 mg/dL 70- 140 H [facility] ID Date Data Source [id number] 03/27/2020 08:40:[address] [facility] Name Value Range Interpretation Code Description Data Hazel rce(s) Supporting Document(s) Progress Note [facility] KUFTWw9gNkAUHfCb04/IZMckKJSvv6EsSLfhDRg0CUvkNJHfH3OaVDX5lR3sECK1GHsBMyUcDwTyQeL8 lbm [file] Ti2OdJhkplV92YZ/JZDa+z8Wsr35kPgEmvU3dVRh2S+5Bwq9+h0MrcEA5J/Martín+ghap8pjUXSaslj3aw XBDxNK6jx+5+qJv0mBOUnvhbP8f9ij3MBKNw5C/gonsalo [file] KB4ZWt0HHrB2UDH5pFIuXx1PHoHlUgnEHoAhBN9AILi= ID Date Data Source [id number] 03/27/2020 04:21:[address] [facility] Name Value Range Interpretation Code Description Data Hazel rce(s) Supporting Document(s) Bicarbonate [Moles/volume] in Serum 27 mmol/L [facility] Chloride [Moles/volume] in Serum or Plasma 99 mmol/L 98-107 [facility] Creatinine [Mass/volume] in Serum or Plasma 1.10 mg/dL 0.70-1.20 [facility] Glucose [Mass/volume] in Serum or Plasma 186 mg/dL 70-140 H [facility] Potassium [Moles/volume] in Serum or Plasma 3.5 mmol/L 3.4-5.1 [facility] Sodium [Moles/volume] in Serum or Plasma 137 mmol/L 136-145 [facility] Urea nitrogen [Mass/volume] in Serum or Plasma 6 mg/dL 6-20 [facility] Anion gap 3 in Serum or Plasma 11 mmol/L 8-15 [facility] Osmolality of Serum or Plasma by calculation 286 mosm/kg 275-300 [facility] Creatinine/Urea nitrogen [Mass Ratio] in Serum or Plasma 6 [facility] Calcium [Mass/volume] in Serum or Plasma 8.4 mg/dL 8.6-10.0 L [facility] Glomerular filtration rate/1.73 sq M pre dicted among non-blacks [Volume Rate/Area] in Serum or Plasma by Creatinine-based formula (MDRD) 74 mL/min/1.73m2 >60 [facility] Glomerular filtration rate/1.73 sq M pre dicted among blacks [Volume Rate/Area] in Serum or Plasma by Creatinine-based formula (MDRD) 86 mL/min/1.73m2 >60 [facility] ID Date Data Source [id number] 03/27/2020 04:21:[address] [facility] Name Value Range Interpretation Code Description Data Hazel rce(s) Supporting Document(s) Leukocytes [#/volume] in Blood by Automated count 3.9 10*3/uL 4-10 L [facility] Erythrocytes [#/volume] in Blood by Automated count 3.23 10*6/uL 4.6- 6.1 [facility] Hemoglobin [Mass/volume] in Blood 10.3 g/dL 13.5-18 L [facility] Hematocrit [Volume Fraction] of Blood by Automated count 30.6 % 4 1-53 [facility] Erythrocyte mean corpuscular volume [Entitic volume] by Auto mated count 94.8 fL 80-96 [facility] Erythrocyte mean corpuscular hemoglobin [Entitic mass] by Automated count 32.0 pg 27-33 [facility] Erythrocyte mean corpuscular hemoglobin concentration [Mass/volume] by Automated count 33.7 g/dL 32.0-[facility] width [Ratio] by Automated count 16.6 % 11.5-14.5 H [facility] Platelets [#/volume] in Blood by Automated count 228 10*3/uL 150-400 [facility] Differential cell count method - Blood [facility] Neutrophils/100 leukocytes in Blood by Automated count 36 % [facility] Lymphocytes/100 leukocytes in Blood by Automated count 47 % [facility] Monocytes/100 leukocytes in Blood by Automated count 8 % [facility] Eosinophils/100 leukocytes in Blood by Automated count 8 % [facility] Basophils/100 leukocytes in Blood by Automated count 1 % [facility] Neutrophils [#/volume] in Blood by Automated count 1.39 10*3/uL 1.8-7 .0 L [facility] Lymphocytes [#/volume] in Blood by Automated count 1.83 10*3/uL 1.2-4 .0 [facility] Monocytes [#/volume] in Blood by Automated count 0.32 10*3/uL 0-0.8 [facility] Eosinophils [#/volume] in Blood by Automated count 0.31 10*3/uL 0-0.5 [facility] Basophils [#/volume] in Blood by Automated count 0.05 10*3/uL 0-0.2 [facility] Nucleated erythrocytes/100 leukocytes [Ratio] in Blood by Automated count 0 /100{WBCs} 0-0 [facility] ID Date Data Source [id number] 03/26/2020 10:46:[address] [facility] Name Value Range Interpretation Code Description Data Hazel rce(s) Supporting Document(s) Glucose [Mass/volume] in Capillary blood by Glucometer 272 mg/dL 70- 140 [facility] ID Date Data Source [id number] 03/26/2020 10:32:[address] [facility] Value Range Interpretation Code Description Data Hazel rce(s) Supporting Document(s) Glucose [Mass/volume] in Capillary blood by Glucometer 253 mg/dL 70- 140 [facility] ID Date Data Source [id number] 03/26/2020 05:04:[address] [facility] Value Range Interpretation Code Description Data Hazel rce(s) Supporting Document(s) Glucose [Mass/volume] in Capillary blood by Glucometer 170 mg/dL 70- 140 [facility] ID Date Data Source [id number] 03/26/2020 04:15:[address] [facility] CT ENTEROGRAPHY [id number] RESULTInterpr eted by:Estelle Chen MDINDICATION: Abdominal pain, [...] Name Value Range Interpretation Code Description [facility] Supporting Document(s) ID Date Data Source [id number] 03/26/2020 02:32:32 PM [facility] Name Value Range Interpretation Code Description Data [facility](s) Supporting Document(s) [facility] JWFXQx2mKlVDPgSb38/WHSdsUDBgl0JoBKegPFh4VDjtSQEkK8JkINH5hM5rSKA0NQqQSvZwWzXqZgI8 lbm [file] director oracle+JpFFk72H3K/WJohGqwfC465cLOIdwR+HJMLaCVB0xcMNlFYiSSeC29j9RqXpJhdSADYEkHXiVGn2L [file] AgICAgICAgICAgICAgICAgICAgICAgICAgICAgICAgICAgICAgICAgICAgICAgICAgICAgICAgICAgIC AgICAgICAgICAgICAgICAgICAgICAgICAgICAgICAg ICAgDQogICAgICAgICAgICAgICAgICAgICAgICAgICAgICAgICAgICAgICAgICAgICAgICAgICAgICAg ICAgICAgICAgICAgICAgICAgICAgICAgICAgICAgICAgICAgICAgICAgICAgDQogICAgICAgICAgICAg ICAgICAgICAgICAgICAgICAgICAgICAgICAgICAgIC AgICAgICAgICAgICAgICAgICAgICAgICAgICAgICAgICAgICAgICAgICAgICAgICAgICAgICAgDQogIC AgICAgICAgICAgICAgICAgICAgICAgICAgICAgICAgICAgICAgICAgICAgICAgICAgICAgICAgICAgIC AgICAgICAgICAgICAgICAgICAgICAgICAgICAgICAg ICAgICAgDQogICAgICAgICAgICAgICAgICAgICAgICAgICAgICAgICAgICAgICAgICAgICAgICAgICAg ICAgICAgICAgICAgICAgICAgICAgICAgICAgICAgICAgICAgICAgICAgICAgICAgDQogICAgICAgICAg ICAgICAgICAgICAgICAgICAgICAgICAgICAgICAgIC AgICAgICAgICAgICAgICAgICAgICAgICAgICAgICAgICAgICAgICAgICAgICAgICAgICAgICAgICAgDQ ogICAgICAgICAgICAgICAgICAgICAgICAgICAgICAgICAgICAgICAgICAgICAgICAgICAgICAgICAgIC AgICAgICAgICAgICAgICAgICAgICAgICAgICAgICAg ICAgICAgICAgDQogICAgICAgICAgICAgICAgICAgICAgICAgICAgICAgICAgICAgICAgICAgICAgICAg ICAgICAgICAgICAgICAgICAgICAgICAgICAgICAgICAgICAgICAgICAgICAgICAgICAgDQogICAgICAg ICAgICAgICAgICAgICAgICAgICAgICAgICAgICAgIC AgICAgICAgICAgICAgICAgICAgICAgICAgICAgICAgICAgICAgICAgICAgICAgICAgICAgICAgICAgIC AgDQogICAgICAgICAgICAgICAgICAgICAgICAgICAgICAgICAgICAgICAgICAgICAgICAgICAgICAgIC AgICAgICAgICAgICAgICAgICAgICAgICAgICAgICAg VZMvKSHfYHKfZGGlUNl5R6yaEIBcLIEpRK3dUZt0Yf7+JLyXHaQzPQH7maSgdP5IRX8on2NvDBsdWYQp e4WkCXj8VG5XJPHrWOjhGY7HJTspgf3RTBUbJUIycBEZs5miIrNcNQC9YANeZkhbMI2EEDYiA8qogtVl IDUgMCBSIDcgMCBSIDkgMCBSIDExIDAgUiAxMyAwIF ZrJZLgIOWREPS6TNIhCgSyOTjtGU3Ms7WvdUM6FGt+Ny1OOC2xf4ZuGIbwLXUjKP6zxg8JVRdYVsLdP1 XjohY0VPI5YBGqJl0PFKGjZXNjbDWvUNKhHZWJQbUoP6MkpP91TRGIPq4+UAvyfmWgFswEFbP7EXRgo2 JtZEy9AT5JXMOdEKj2sRPiW43tf7SpaTSpFanmNAbw rpXxSASRRNTvgFAkqmywNvXxXUVkIp5iJa5aFKEmMXH1FoT8PMOECB0QGXWvADUwmRIlMUSaJHDOQH1S HAxkHYN1CMIgxhHueNQePCvmNV5WRXYzemZxIdLbMEWFGAq+Uo1WYC7nt2WpKJehLnAnMW1dfe9UGBxA WqLkT1T4eVMgX8B1FVdjYg1CRXDoGPGxEpRsTEEQDV tlMF0POX1rnuS4HK9AtCPpCZQeFRFfhRKhCVg3H65neTKiCWxsOB4JVJD+Bee+Xq2IWYOcQVDfJINkKk KyBQQKDsKgG9ZoO0ASp8QqT3CnVM09mXwrgkFbPUrnXD7WWC4kBMLfYYGEQC9PcOYqeQ3meyQnJORgJR NFHkWtN99psLMaAVYkAUAkBVIeWv2GJKNcM9YsvgQm rVdaekWxVGVwEQITZY6PQDvjecTpgWGbmZwuGF79gSplWF0JYu9MFrClJX3rma5YnLBcQs7FQZHrZd8P GULjGVJlKPOtZUH3OOYcWzAvUKxnPIZnDPPxNZS6GPVmJEMsAO1PVfVcJSEnSvQ9JUApXIWhYLGaoq0N FWXqEIAwGTReZoWgMEFgENBwJHxwVZMxCOEeAAO2BP ToONBoLT8TZsKfTOTrENF1HeefMTByGUMyou2ZDWZsJWGcKvpgGoQtFCBgAEIaPOtnQWDdNOW1UIIrWE OmVZSqLC1KXlOvOLJbWUteGtsgLGTrWKRyxi8SUCYeLZMvJNK3AWNaWYFhRICvNFbyXMBaHHG4TTg0NQ GwEIPrQB1IMgFeHOSrMYDsXAYcDTYlEKOmfm4MCCNz UVZaEwP3XcNeGTFnJAMqBRguBBVlSUK5GIGtXLUfZIUzWG0MBnVfASOuJJY0YKioJJEzNDCfir9EPXIv VKAyCcW5ZeDoNZVuBYLgLLxsHGYuEME1BpPuAEHgQGNwAW6GKhWeHJTpAgOkNqmzTAEwOQSkah0LNNFb YINdMTQ6ANNyJHSwUJZxFXwoAGHoLLVuUUB2BSDgRY RbJM2VUwKjGEXwOsA2GQMkRDFzJNAfzo8SIAZgKECrJAgoPXFxQHTlRLVaFDzrFUUuLTOzYwdqBZRpXC NzVE5LPjBlIGFhMeE5HYVjAASzISOfck8VLFNmLKDrRoR8LoEzLUVnOBXdWGziRTFmNHH8QKR4WLSbTQ CuRT9TGuOuZQWmJzP7VnAfYLAjRVRybr3MLKFyJGUw PDQ2SJBdJTLmDVDtAOwyVKSkHRK1IvX3DNMiRMQzQV6SAeUqDQMjFwN8JdLrGDOfGORsfm8VRJDhSLZr CfFpZHHtKAQgRFGbODwuGGWuGCK6HxMeJMItKEMiYP6LKfQyDGMqIeD6ZKFzUOZgPNBllm8IOBVcLQVt VsX2ZwKqDDWmBVXpSOelKEXtSYX6Vcd3ECJvQOCfCZ 0UYkBmMSXnYii2IWDaLRReUCXejl1HBIMvJZFqYIg4THJrPNWiUVMuGJt3bjKtrGZeGPu7MT4WJ9Mgkf JrEcwPVf1Ti843UFQ9QHVkDm6UK3rvLk7cUJGwBNGZHy6AUBr2INJ0R8PnWlHrH1NhSZZwSXwvCuj5AY T1GFWdTTZfVTm+RGu6XsEtRpMoPJEzNwWoEgQaPeDy XYWkZSJdXpDbUtJoCV9cHCPHJr8+[id number] ID Date Data Source [id number] 03/26/2020 12:44:13 PM [facility] Name Value Range Interpretation Code Description Data Hazel rce(s) Supporting Document(s) Glucose [Mass/volume] in Capillary blood by Glucometer 198 mg/dL 70- 140 H [facility] ID Date Data Source [id number] 03/26/2020 01:02:03 PM [facility] Name Value Range Interpretation Code Description Data Hazel rce(s) Supporting Document(s) Leukocytes [#/volume] in Blood by Automated count 2.9 10*3/uL 4-10 [facility] [facility] Erythrocytes [#/volume] in Blood by Automated count 2.70 10*6/uL 4.6- 6.1 L [facility] Hemoglobin [Mass/volume] in Blood 8.7 g/dL 13.5-18 L [facility] Hematocrit [Volume Fraction] of Blood by Automated count 25.7 % 4 1-53 L [facility] Erythrocyte mean corpuscular volume [Entitic volume] by Auto mated count 95.1 fL 80-96 [facility] Erythrocyte mean corpuscular hemoglobin [Entitic mass] by Automated count 32.3 pg 27-33 [facility] Erythrocyte mean corpuscular hemoglobin concentration [Mass/volume] by Automated count 34.0 g/dL 32.0-36.0 [facility] width [Ratio] by Automated count 16.9 % 11.5-14.5 H [facility] Platelets [#/volume] in Blood by Automated count 178 10*3/uL 150-400 [facility] Differential cell count method - Blood [facility] Neutrophils/100 leukocytes in Blood by Automated count 47 % [facility] Lymphocytes/100 leukocytes in Blood by Automated count 35 % [facility] Monocytes/100 leukocytes in Blood by Automated count 12 % [facility] Eosinophils/100 leukocytes in Blood by Automated count 5 % [facility] Basophils/100 leukocytes in Blood by Automated count 1 % [facility] Neutrophils [#/volume] in Blood by Automated count 1.37 10*3/uL 1.8-7 .0 L [facility] Lymphocytes [#/volume] in Blood by Automated count 1.01 10*3/uL 1.2-4 .0 L [facility] Monocytes [#/volume] in Blood by Automated count 0.35 10*3/uL 0-0.8 [facility] Eosinophils [#/volume] in Blood by Automated count 0.16 10*3/uL 0-0.5 [facility] Basophils [#/volume] in Blood by Automated count 0.03 10*3/uL 0-0.2 [facility] Nucleated erythrocytes/100 leukocytes [Ratio] in Blood by Automated count 0 /100{WBCs} 0-0 [facility] ID Date Data Source [id number] 03/26/2020 09:06:35 AM [facility] Name Value Range Interpretation Code Description Data Hazel rce(s) Supporting Document(s) Glucose [Mass/volume] in Capillary blood by Glucometer 198 mg/dL 70- 140 H [facility] ID Date Data Source [id number] 03/26/2020 05:00:55 AM [facility] Name Value Range Interpretation Code Description Data Ahzel rce(s) Supporting Document(s) Leukocytes [#/volume] in Blood by Automated count 3.8 10*3/uL 4-10 L [facility] Erythrocytes [#/volume] in Blood by Automated count 2.82 10*6/uL 4.6- 6.1 L [facility] Hemoglobin [Mass/volume] in Blood 9.0 g/dL 13.5-18 L [facility] Hematocrit [Volume Fraction] of Blood by Automated count 26.9 % 4 1-53 L [facility] Erythrocyte mean corpuscular volume [Entitic volume] by Auto mated count 95.2 fL 80-96 [facility] Erythrocyte mean corpuscular hemoglobin [Entitic mass] by Automated count 31.8 pg 27-33 [facility] Erythrocyte mean corpuscular hemoglobin concentration [Mass/volume] by Automated count 33.4 g/dL 32.0-36.0 [facility] Erythrocyte distribution width [Ratio] by Automated count 16.9 % 11.5-14.5 H [facility] Platelets [#/volume] in Blood by Automated count 176 10*3/uL 150-400 [facility] Differential cell count method - Blood [facility] Neutrophils/100 leukocytes in Blood by Automated count 49 % [facility] Lymphocytes/100 leukocytes in Blood by Automated count 35 % [facility] Monocytes/100 leukocytes in Blood by Automated count 9 % [facility] Eosinophils/100 leukocytes in Blood by Automated count 6 % [facility] Basophils/100 leukocytes in Blood by Automated count 1 % [facility] Neutrophils [#/volume] in Blood by Automated count 1.86 10*3/uL 1.8-7 .0 [facility] Lymphocytes [#/volume] in Blood by Automated count 1.35 10*3/uL 1.2-4 .0 [facility] Monocytes [#/volume] in Blood by Automated count 0.36 10*3/uL 0-0.8 [facility] Eosinophils [#/volume] in Blood by Automated count 0.24 10*3/uL 0-0.5 [facility] Basophils [#/volume] in Blood by Automated count 0.04 10*3/uL 0-0.2 [facility] Nucleated erythrocytes/100 leukocytes [Ratio] in Blood by Automated count 0 /100{WBCs} 0-0 [facility] ID Date Data Source [id number] 03/26/2020 05:12:31 AM [facility] Name Value Range Interpretation Code Description Data Hazel rce(s) Supporting Document(s) Bicarbonate [Moles/volume] in Serum 26 mmol/L 22-29 [facility] Chloride [Moles/volume] in Serum or Plasma 97 mmol/L 98-107 L [facility] Creatinine [Mass/volume] in Serum or Plasma 0.97 mg/dL 0.70-1.20 [facility] Glucose [Mass/volume] in Serum or Plasma 183 mg/dL 70-140 H [facility] Potassium [Moles/volume] in Serum or Plasma 3.4 mmol/L 3.4-5.1 [facility] Sodium [Moles/volume] in Serum or Plasma 132 mmol/L 136-145 L [facility] Urea nitrogen [Mass/volume] in Serum or Plasma 5 mg/dL 6-20 L [facility] Anion gap 3 in Serum or Plasma 10 mmol/L 8-15 [facility] Osmolality of Serum or Plasma by calculation 276 mosm/kg 275-300 [facility] Creatinine/Urea nitrogen [Mass Ratio] in Serum or Plasma 5 [facility] Calcium [Mass/volume] in Serum or Plasma 7.7 mg/dL 8.6-10.0 L [facility] Glomerular filtration rate/1.73 sq M pre dicted among non-blacks [Volume Rate/Area] in Serum or Plasma by Creatinine-based formula (MDRD) >6 0 [facility] Glomerular filtration rate/1.73 sq M pre dicted among blacks [Volume Rate/Area] in Serum or Plasma by Creatinine-based formula (MDRD) >60 [facility] ID Date Data Source [id number] 03/25/2020 10:10:13 PM [facility] Name Value Range Interpretation Code Description Data Hazel rce(s) Supporting Document(s) Glucose [Mass/volume] in Capillary blood by Glucometer 176 mg/dL 70- 140 H [facility] ID Date Data Source [id number] 03/25/2020 09:23:03 PM [facility] Name Value Range Interpretation Code Description Data Hazel rce(s) Supporting Document(s) Glucose [Mass/volume] in Capillary blood by Glucometer 102 mg/dL 70- 140 [facility] ID Date Data Source [id number] 03/25/2020 10:31:20 PM [facility] Value Range Interpretation Code Description Data Hazel rce(s) Supporting Document(s) Leukocytes [#/volume] in Blood by Automated count 4.7 10*3/uL 4-10 [facility] Erythrocytes [#/volume] in Blood by Automated count 2.70 10*6/uL 4.6- 6.1 [facility] Hemoglobin [Mass/volume] in Blood 8.7 g/dL 13.5-18 L [facility] Hematocrit [Volume Fraction] of Blood by Automated count 26.4 % 4 1-53 L [facility] Erythrocyte mean corpuscular volume [Entitic volume] by Auto mated count 97.9 fL 80-96 H [facility] Erythrocyte mean corpuscular hemoglobin [Entitic mass] by Automated count 32.3 pg 27-33 [facility] Erythrocyte mean corpuscular hemoglobin concentration [Mass/volume] by Automated count 33.0 g/dL 32.0-36.0 [facility] width [Ratio] by Automated count 17.0 % 11.5-14.5 H [facility] Platelets [#/volume] in Blood by Automated count 180 10*3/uL 150-400 [facility] Differential cell count method - Blood [facility] Neutrophils/100 leukocytes in Blood by Automated count 65 % [facility] Lymphocytes/100 leukocytes in Blood by Automated count 30 % [facility] Monocytes/100 leukocytes in Blood by Automated count 2 % [facility] Eosinophils/100 leukocytes in Blood by Automated count 3 % [facility] Neutrophils [#/volume] in Blood by Automated count 3.09 10*3/uL 1.8-7 .0 [facility] Lymphocytes [#/volume] in Blood by Automated count 1.39 10*3/uL 1.2-4 .0 [facility] Monocytes [#/volume] in Blood by Automated count 0.09 10*3/uL 0-0.8 [facility] Eosinophils [#/volume] in Blood by Automated count 0.14 10*3/uL 0-0.5 [facility] Anisocytosis [Presence] in Blood by Light microscopy [facility] ID Date Data Source [id number] 03/25/2020 09:17:[address] [facility] Value Range Interpretation Code Description Data Hazel rce(s) Supporting Document(s) Glucose [Mass/volume] in Capillary blood by Glucometer 69 mg/dL 70- 140 L [facility] ID Date Data Source [id number] 03/25/2020 05:28:[address] [facility] Value Range Interpretation Code Description Data Hazel rce(s) Supporting Document(s) Glucose [Mass/volume] in Capillary blood by Glucometer 254 mg/dL 70- 140 H [facility] ID Date Data Source [id number] 03/25/2020 12:55:[address] [facility] Value Range Interpretation Code Description Data Hazel rce(s) Supporting Document(s) Glucose [Mass/volume] in Capillary blood by Glucometer 161 mg/dL 70- 140 H [facility] ID Date Data Source [id number] 03/25/2020 12:59:[address] [facility] Value Range Interpretation Code Description Data Hazel rce(s) Supporting Document(s) Leukocytes [#/volume] in Blood by Automated count 4.1 10*3/uL 4-10 [facility] Erythrocytes [#/volume] in Blood by Automated count 2.88 10*6/uL 4.6- 6.1 L [facility] Hemoglobin [Mass/volume] in Blood 9.0 g/dL 13.5-18 L [facility] Hematocrit [Volume Fraction] of Blood by Automated count 27.4 % 4 1-53 L [facility] Erythrocyte mean corpuscular volume [Entitic volume] by Auto mated count 95.2 fL 80-96 [facility] Erythrocyte mean corpuscular hemoglobin [Entitic mass] by Automated count 31.4 pg 27-33 [facility] Erythrocyte mean corpuscular hemoglobin concentration [Mass/volume] by Automated count 33.0 g/dL 32.0-36.0 [facility] width [Ratio] by Automated count 16.9 % 11.5-14.5 H [facility] Platelets [#/volume] in Blood by Automated count 158 10*3/uL 150-400 [facility] Differential cell count method - Blood [facility] Neutrophils/100 leukocytes in Blood by Automated count 56 % [facility] Lymphocytes/100 leukocytes in Blood by Automated count 30 % [facility] Monocytes/100 leukocytes in Blood by Automated count 9 % [facility] Eosinophils/100 leukocytes in Blood by Automated count 4 % [facility] Basophils/100 leukocytes in Blood by Automated count 1 % [facility] Neutrophils [#/volume] in Blood by Automated count 2.28 10*3/uL 1.8-7 .0 [facility] Lymphocytes [#/volume] in Blood by Automated count 1.22 10*3/uL 1.2-4 .0 [facility] Monocytes [#/volume] in Blood by Automated count 0.37 10*3/uL 0-0.8 [facility] Eosinophils [#/volume] in Blood by Automated count 0.18 10*3/uL 0-0.5 [facility] Basophils [#/volume] in Blood by Automated count 0.03 10*3/uL 0-0.2 [facility] Nucleated erythrocytes/100 leukocytes [Ratio] in Blood by Automated count 0 /100{WBCs} 0-0 [facility] ID Date Data Source [id number] 03/25/2020 09:36:[address] [facility] Name Value Range Interpretation Code Description Data Hazel rce(s) Supporting Document(s) History and Physical [facility] [id number]/VKKadMWIfx1QgEFqkZFh8DAuoLQLjX6UcZRS0wX2hRMC6DAbIIcRvEbSyNyJ9 lbm [file] AUDIO VIDEO TECHNICIAN+Po3IAWAgVCe0E1I4JXXeQOw1U6AAJ5TUHYNeEPklKVdjUTIbJIz1S7T7TMNmN8GLV0Ilbrdzmo6+ RG1ZQ47OTTJpMXe8E3J6kCDdQ0U1xPyKuOW7KD9OKG4EpFe1dSUtnW9+GB9AU9SWSnGlCKy6G3P2rOIz C5D1vQqPaHK1XD1CJD4SqWGiDGXsgoOmDp4lU4JRKR bNXjFERBK3UZ3CfHZaUQ4NuUMBZ2CzvIFnVt6uPXajnWEdoQ6iQo4iCNjjBP5AMwFXQRnIPEF9JH7ThC XvUQ6EvWCMQ9XefOYcCk7nLFvebWUywk5+WI6XVWZeWe1NGu4+TRayqjXqKfhAWtX8HSUmn0NrKVo7FR 9SLF8wdQdgVLW7Ad7XzNR3kIBpO2iCFX8NwAGmR66s eITvLCQwYr9SEdF0foDakS5ONC62hVSlb5S4YPWoB7feJBioj00nJPdvDRbMKW3zVRSLPDmsPVosRWT9 WoAcfhxiNKUeUq0CGwJiLNn2aW8odDL6TOZ5GpwomLJtRNyrBxFxQtUqJjO7dDudciw1ZIvsGY8cHNwb czptZXRhLyc+WLieRLQsQAZzSklUMKZgeA7kgkT3ld VaPSxyaQYqUx8vo0m7NkehHd7xPs1aIXs4HuZcFmYeSDUfLc8lqO79IAakkwWvSy9GKrWxLFE8S7DvDd pSREY+NTdgBBgduMx6uABzKPUiEl0TTAHoFEKmOYTzKXCoHKAePYGgRKFwUDOtFRDsSAJgZXPqKBBaOW AgICAgICAgICAgICAgICAgICAgICAgICAgICAgICAg IWUnUYPhCRUoKTMqFATpWCJqKGDbZYIlMVPhXWVeQA9OFJLjUTDsSGQsPBOkIEOiFTJqMWWiBDGsMXUg ICAgICAgICAgICAgICAgICAgICAgICAgICAgICAgICAgICAgICAgICAgICAgICAgICAgICAgICAgICAg HKUqGEGpGTQqRXNjDE3RECEmVNChZQEiHQZfQSQfYL AgICAgICAgICAgICAgICAgICAgICAgICAgICAgICAgICAgICAgICAgICAgICAgICAgICAgICAgICAgIC EgELMlZYMmDWQqPIChHVAzUAPxODNgJN1EYWUmFISjBIEeZIOhGFDbAJQmIWHzCYSiLMCwATEvPTPgQM AgICAgICAgICAgICAgICAgICAgICAgICAgICAgICAg XMJjNDGtKPDsLEBwYGVhISFrPXRzYDIyJBCsTVWcNRChZK8MNGGdYAJzYWCzYUBsZZJoPXDwCNHrBFDg ICAgICAgICAgICAgICAgICAgICAgICAgICAgICAgICAgICAgICAgICAgICAgICAgICAgICAgICAgICAg YDPlWKPqUROjQPJuHBXkWO0FKMDtHAWvLYKrMOKyAB AgICAgICAgICAgICAgICAgICAgICAgICAgICAgICAgICAgICAgICAgICAgICAgICAgICAgICAgICAgIC VfPPKlSJAtRVVaCBAhOGVkTVVoRNGkSPOaJD7MAKZeBHMrTALxPLGtQCQkRUJzOKGtXMBiDHFxQHBqWN AgICAgICAgICAgICAgICAgICAgICAgICAgICAgICAg BRFbPWGxRLAiIQWdLVWnXHCkZFXiDXItMGFeBNJcUOCtYAOzTB0CFCIzWPRkEHVxRDRhLWWhGDKhYMVw ICAgICAgICAgICAgICAgICAgICAgICAgICAgICAgICAgICAgICAgICAgICAgICAgICAgICAgICAgICAg KLGhWJTuIJQjMYOrXFFcTJGsRD7TEKQdIMYqEEZdZH AgICAgICAgICAgICAgICAgICAgICAgICAgICAgICAgICAgICAgICAgICAgICAgICAgICAgICAgICAgIC UjIWClDYUoKJSwCXZbOODgOUYaYVXmGKSvSLEhTA8QPQAuYLXnUBGtMBRaITDxAUQdUJWrRKByDBPmJJ AgICAgICAgICAgICAgICAgICAgICAgICAgICAgICAg AOMdXWIzNDXcOZIoUXDbRXSlQFBxPTJyCZAhZJNlVZCdVUHtNYCkZZ5WJK61mEMir2P4OVYoIL7evkr/ Ag9OOBcniqEyzRBwUE2UMqVuZM1lsi2IBjRcKX8ftt1ZOMkLCdCfN3L4yXDjFJQjFYIPOsBrO18aPOmu Gq04MPibRMThGrPpPLq3Zh3GLxZjI4uvHOXwSaQ4TB MpGyU5KTVuInN5XDHjDfToOTdjKU5Ds6MxiOAcEKc+Vr3UNS0ow3LeMKzqGuQyXK3hxv3ILTeFWaZdB6 NdjmK4VHV8OGVmXx2EDZEwARDxaQLeWiGmLSJFFvRnL5MvzG76TKUNVy0+CFefxrUfBiaDEfA7HXNku3 KbHMc0KB2EQMUrUIq9zICoALUNEFF5WG82gdqjV2tc BB7iKT3CVUT4MIhaFJOtFmUwMXQxXRcfQRFYUYhKHxZnZ9Skf8VkWjL5DVKhYuDsNJhbYLPiFjY4YM92 tUjeIY3WVJPiDMNyXO14DBG4BHRwQo7LZx0MPyDaIJ2bsf9YYbqtJBIvYitVCoh6SCpcZS4AaQKbK2Yp bSNgb3kGRdPgZ0HXRKH5HJImCg7RECRfJyRvIRCvLA kkGE3hOMNmHSYLuPreoxL8SV9LIU2oeqJbNM4WSaIbZh0eDn3BCqAeD8IoC9YsQAFsKYOFZLbxDJ7TCG xiSO3mTP9Ea5RZbAZgoQ9vtu2QUNFaIDGqBjmhhn9ZOpkjD1Y6aBgxTPYeEvCsFBYZRYlcDX1WPCWbSQ W3BQQnNVRvFWREZiAwT48pHA0AS5Qja35vXdS9CIEz PuDmKKhiUM26rWkjnaZqtNNagGphEV2CMv3+DQplbmRvYmoNCnhyZWYNCjAgMjkNCjAwMDAwMDAwMDAg HhY2IwBlSq2DTOAlOTNgYASyOqAmCSMmAUJjUZysABYfIPF0XsY3JHZhOYAnKB6AAuKoVRBrQaulDCAi YQIzBGLvly7PQBUnFXNaGMY2IoNnSWFwXXSoMMteMJ HfNAKdCqYaPYJaDTSdEL3AYrZtBEHbNAH3NfAlOPKrVUZgmv7QRIAkLGDdQnR2EhEuNJEaMIXpDVwiCZ JqAML8ZLn5MQWlCUNhXD3MTzIbAZFfBEeyNYoiEOKxLZBzjy5HWUMzKDOzJJAlWDItEOLyCBCsPPcnPB YsMMOzWkVmNJIfGEBaFQ8CPjQaASHqEMI8WSbdBPTg ETUabx1IRKQrEWJaUPB9YZIvFOZeQQRsCLrxEWDiCVTgSvAmCDHaRDNdFB4QVrGhKYCxXPX8HCEmXJBr BADnaq9OKXZxNLAhZZu7ZSYaBDBpZJToSEllXHMcZLKvQiw8TWMtSOThDO0KViCjIWSwVhF8EIWnUURr TSFffw0SQYNgQMKaJyryKmEmBALiQGTgXXjuMFFuZI F0KHFwOUSrXAIvEI3NIqLsZBMjMyCiPFknFUBcRUDukg9RTWZbEVToMNVcHPSsJNJcFRFsPEtaPNXxNS K5SNI7RURaYQDbGQ7HGpZpQMIpGuZ5KFyuVWQvSHYdpl6SPOJeDEWhXzObCZDrPFFaOXQaXXrmZJRdBF E7HKH8ETFgKTPcHN7VHjJdHHPhWlw6XvWiVUCxQJBb js1ELOMqCJWpZzJ6VPSzMSIdRQPqTKk7bxDinQYyZJl6SM2ZN1OkndGbQncAHs5Jx108CKR7OJYjLd2H O0ihPd2nSCYrTAEUCh6ERZt6GHvhVHPfZMU5ABVbBTP2WYKbV0C9JmVtF6YpGjTqKAM+IDxlOWRkZGE4 EKw0VMZfQyX6DKNhVPesQVBvJQReZKSqHc7jQCJAHe9+HAforISxjKzwJTJYAzE6XKAlABymEMZJIu2L ID Date Data Source [id number] 03/25/2020 03:27:[address] [facility] Name Value Range Interpretation Code Description Data Hazel rce(s) Supporting Document(s) Leukocytes [#/volume] in Blood by Automated count 4.6 10*3/uL 4-10 [facility] Erythrocytes [#/volume] in Blood by Automated count 3.24 10*6/uL 4.6- 6.1 L [facility] Hemoglobin [Mass/volume] in Blood 10.3 g/dL 13.5-18 L [facility] Hematocrit [Volume Fraction] of Blood by Automated count 30.9 % 4 1-53 L [facility] Erythrocyte mean corpuscular volume [Entitic volume] by Auto mated count 95.3 fL 80-96 [facility] Erythrocyte mean corpuscular hemoglobin [Entitic mass] by Automated count 31.7 pg 27-33 [facility] Erythrocyte mean corpuscular hemoglobin concentration [Mass/volume] by Automated count 33.3 g/dL 32.0-36.0 [facility] width [Ratio] by Automated count 17.3 % 11.5-14.5 H [facility] Platelets [#/volume] in Blood by Automated count 185 10*3/uL 150-400 [facility] Differential cell count method - Blood [facility] Neutrophils/100 leukocytes in Blood by Automated count 50 % [facility] Lymphocytes/100 leukocytes in Blood by Automated count 34 % [facility] Monocytes/100 leukocytes in Blood by Automated count 9 % [facility] Eosinophils/100 leukocytes in Blood by Automated count 6 % [facility] Basophils/100 leukocytes in Blood by Automated count 1 % [facility] Neutrophils [#/volume] in Blood by Automated count 2.31 10*3/uL 1.8-7 .0 [facility] Lymphocytes [#/volume] in Blood by Automated count 1.55 10*3/uL 1.2-4 .0 [facility] Monocytes [#/volume] in Blood by Automated count 0.41 10*3/uL 0-0.8 [facility] Eosinophils [#/volume] in Blood by Automated count 0.27 10*3/uL 0-0.5 [facility] Basophils [#/volume] in Blood by Automated count 0.03 10*3/uL 0-0.2 [facility] Nucleated erythrocytes/100 leukocytes [Ratio] in Blood by Automated count 0 /100{WBCs} 0-0 [facility] ID Date Data Source [id number] 03/25/2020 04:12:[address] [facility] Name Value Range Interpretation Code Description Data Hazel rce(s) Supporting Document(s) Bicarbonate [Moles/volume] in Serum 26 mmol/L 22-29 [facility] Chloride [Moles/volume] in Serum or Plasma 93 mmol/L 98-107 L [facility] Creatinine [Mass/volume] in Serum or Plasma 0.92 mg/dL 0.70-1.20 [facility] Glucose [Mass/volume] in Serum or Plasma 224 mg/dL 70-140 H [facility] Potassium [Moles/volume] in Serum or Plasma 3.4 mmol/L 3.4-5.1 [facility] Sodium [Moles/volume] in Serum or Plasma 130 mmol/L 136-145 L [facility] Urea nitrogen [Mass/volume] in Serum or Plasma 7 mg/dL 6-20 [facility] Anion gap 3 in Serum or Plasma 11 mmol/L 8-15 [facility] Osmolality of Serum or Plasma by calculation 274 mosm/kg 275-300 L [facility] Creatinine/Urea nitrogen [Mass Ratio] in Serum or Plasma 7 [facility] Calcium [Mass/volume] in Serum or Plasma 8.4 mg/dL 8.6-10.0 L [facility] Glomerular filtration rate/1.73 sq M pre dicted among non-blacks [Volume Rate/Area] in Serum or Plasma by Creatinine-based formula (MDRD) >6 0 [facility] Glomerular filtration rate/1.73 sq M pre dicted among blacks [Volume Rate/Area] in Serum or Plasma by Creatinine-based formula (MDRD) >60 [facility] ID Date Data Source [id number] 03/24/2020 08:42:55 PM [facility] Name Value Range Interpretation Code Description Data Hazel rce(s) Supporting Document(s) Glucose [Mass/volume] in Capillary blood by Glucometer 344 mg/dL 70- 140 H [facility] ID Date Data Source [id number] 03/24/2020 07:48:30 PM [facility] Name Value Range Interpretation Code Description Data Hazel rce(s) Supporting Document(s) Leukocytes [#/volume] in Blood by Automated count 4.4 10*3/uL 4-10 [facility] Erythrocytes [#/volume] in Blood by Automated count 2.86 10*6/uL 4.6- 6.1 [facility] Hemoglobin [Mass/volume] in Blood 9.0 g/dL 13.5-18 L [facility] Hematocrit [Volume Fraction] of Blood by Automated count 27.5 % 4 1-53 L [facility] Erythrocyte mean corpuscular volume [Entitic volume] by Auto mated count 96.2 fL 80-96 H [facility] Erythrocyte mean corpuscular hemoglobin [Entitic mass] by Automated count 31.5 pg 27-33 [facility] Erythrocyte mean corpuscular hemoglobin concentration [Mass/volume] by Automated count 32.8 g/dL 32.0-36.0 [facility] [Ratio] by Automated count 17.1 % 11.5-14.5 H [facility] Platelets [#/volume] in Blood by Automated count 155 10*3/uL 150-400 [facility] Differential cell count method - Blood [facility] Neutrophils/100 leukocytes in Blood by Automated count 57 % [facility] Lymphocytes/100 leukocytes in Blood by Automated count 29 % [facility] Monocytes/100 leukocytes in Blood by Automated count 8 % [facility] Eosinophils/100 leukocytes in Blood by Automated count 5 % [facility] Basophils/100 leukocytes in Blood by Automated count 1 % [facility] Neutrophils [#/volume] in Blood by Automated count 2.60 10*3/uL 1.8-7 .0 [facility] Lymphocytes [#/volume] in Blood by Automated count 1.27 10*3/uL 1.2-4 .0 [facility] Monocytes [#/volume] in Blood by Automated count 0.34 10*3/uL 0-0.8 [facility] Eosinophils [#/volume] in Blood by Automated count 0.21 10*3/uL 0-0.5 [facility] Basophils [#/volume] in Blood by Automated count 0.02 10*3/uL 0-0.2 [facility] Nucleated erythrocytes/100 leukocytes [Ratio] in Blood by Automated count 0 /100{WBCs} 0-0 [facility] ID Date Data Source [id number] 03/24/2020 05:59:[address] [facility] Name Value Range Interpretation Code Description Data Hazel rce(s) Supporting Document(s) Glucose [Mass/volume] in Capillary blood by Glucometer 186 mg/dL 70- 140 H [facility] ID Date Data Source [id number] 03/24/2020 12:39:[address] [facility] Value Range Interpretation Code Description Data Hazel rce(s) Supporting Document(s) Glucose [Mass/volume] in Capillary blood by Glucometer 263 mg/dL 70- 140 H [facility] ID Date Data Source [id number] 03/24/2020 11:21:35 AM [facility] Name Value Range Interpretation Code Description Data Hazel rce(s) Supporting Document(s) Leukocytes [#/volume] in Blood by Automated count 4.4 10*3/uL 4-10 [facility] Erythrocytes [#/volume] in Blood by Automated count 3.29 10*6/uL 4.6- 6.1 L [facility] Hemoglobin [Mass/volume] in Blood 10.3 g/dL 13.5-18 L [facility] Hematocrit [Volume Fraction] of Blood by Automated count 31.6 % 4 1-53 L [facility] Erythrocyte mean corpuscular volume [Entitic volume] by Auto mated count 95.9 fL 80-96 [facility] Erythrocyte mean corpuscular hemoglobin [Entitic mass] by Automated count 31.4 pg 27-33 [facility] Erythrocyte mean corpuscular hemoglobin concentration [Mass/volume] by Automated count 32.7 g/dL 32.0-36.0 [facility] width [Ratio] by Automated count 17.1 % 11.5-14.5 H [facility] Platelets [#/volume] in Blood by Automated count 160 10*3/uL 150-400 [facility] Differential cell count method - Blood [facility] Neutrophils/100 leukocytes in Blood by Automated count 66 % [facility] Lymphocytes/100 leukocytes in Blood by Automated count 22 % [facility] Monocytes/100 leukocytes in Blood by Automated count 7 % [facility] Eosinophils/100 leukocytes in Blood by Automated count 5 % [facility] Basophils/100 leukocytes in Blood by Automated count 0 % [facility] Neutrophils [#/volume] in Blood by Automated count 2.89 10*3/uL 1.8-7 .0 [facility] Lymphocytes [#/volume] in Blood by Automated count 0.96 10*3/uL 1.2-4 .0 L [facility] Monocytes [#/volume] in Blood by Automated count 0.31 10*3/uL 0-0.8 [facility] Eosinophils [#/volume] in Blood by Automated count 0.20 10*3/uL 0-0.5 [facility] Basophils [#/volume] in Blood by Automated count 0.02 10*3/uL 0-0.2 [facility] Nucleated erythrocytes/100 leukocytes [Ratio] in Blood by Automated count 0 /100{WBCs} 0-0 [facility] ID Date Data Source [id number] 03/24/2020 08:52:[address] [facility] Name Value Range Interpretation Code Description Data [facility](s) Supporting Document(s) History and Physical [facility] YFSKWg9uQiFUWgNv70/PAVtuNXFtp7CeMLdxMWf3OZbvFLNdZ7QzNKF8pM1yFLT5XSmWYiPzSpKjGpF1 lbm NrNkhCYuNnZRPdKxlNUuFzEZajZbhnqWNiBR7YoEB6UQBaW54cEEBnXUVgN2HgJIZpOtF+On5WZBHteH TnLP0ERijW3Oovg+O48XuB/dlTQU3yPX+KzmPDCZ76lxXMmyo3cNiNb85/aG0lUc+0ryT144nwo474cL kR5Zp4rn60UO8AyVuuxtumKMuCe4+wM2tbxnGa//KILN TESTER [file] uPfqSFDUGuZ8KgL4LWmlXAFWWb6M ID Date Data Source [id number] 03/24/2020 08:50:[address] [facility] Name Value Range Interpretation Code Description Data Hazel rce(s) Supporting Document(s) [facility] KHNFRf5rQkNTCfQto8VfRdAiMEKrIG5xhqz0O5D2zQEcR6XjvOBdy7scU8KdY0KwONUdMLRRSO1XiCSi jb2 [file] /kh9pTW/+EXTENSION PROFESSOR+1CTiv/fDfgemCuF2crMeAfLVQL242qzEqyjKd2iAo4/5rE021ZNBP06K1rnMjhuXuGGR [file] EwP/7soxP/jVuODGWK2edK4gdl0pgYQ8aeDHny6vpu918ZPYiTf/nOaOs677reW/EXTENSION PROFESSOR/cuZeMkfkMNc0h [file] NSAwIFIKCj4+NpY3BBS6tXXeBgx7TsT7LoonBOMDUa== ID Date Data Source [id number] 03/24/2020 08:30:[address] [facility] Name Value Range Interpretation Code Description Data Hazel rce(s) Supporting Document(s) Glucose [Mass/volume] in Capillary blood by Glucometer 106 mg/dL 70- 140 [facility] ID Date Data Source [id number] 03/24/2020 04:16:30 AM [facility] Value Range Interpretation Code Description Data Hazel rce(s) Supporting Document(s) Bicarbonate [Moles/volume] in Serum 28 mmol/L 22-29 [facility] Chloride [Moles/volume] in Serum or Plasma 97 mmol/L 98-107 L [facility] Creatinine [Mass/volume] in Serum or Plasma 0.83 mg/dL 0.70-1.20 [facility] Glucose [Mass/volume] in Serum or Plasma 85 mg/dL 70-140 [facility] Potassium [Moles/volume] in Serum or Plasma 3.1 mmol/L 3.4-5.1 L [facility] Sodium [Moles/volume] in Serum or Plasma 131 mmol/L 136-145 L [facility] Urea nitrogen [Mass/volume] in Serum or Plasma 8 mg/dL 6-20 [facility] Anion gap 3 in Serum or Plasma 7 mmol/L 8-15 L [facility] Osmolality of Serum or Plasma by calculation 270 mosm/kg 275-300 L [facility] Creatinine/Urea nitrogen [Mass Ratio] in Serum or Plasma 10 [facility] Calcium [Mass/volume] in Serum or Plasma 8.0 mg/dL 8.6-10.0 L [facility] Glomerular filtration rate/1.73 sq M pre dicted among non-blacks [Volume Rate/Area] in Serum or Plasma by Creatinine-based formula (MDRD) >6 0 [facility] Glomerular filtration rate/1.73 sq M pre dicted among blacks [Volume Rate/Area] in Serum or Plasma by Creatinine-based formula (MDRD) >60 [facility] ID Date Data Source [id number] 03/24/2020 02:48:40 AM [facility] Value Range Interpretation Code Description Data Hazel rce(s) Supporting Document(s) Leukocytes [#/volume] in Blood by Automated count 4.5 10*3/uL 4-10 [facility] Erythrocytes [#/volume] in Blood by Automated count 2.76 10*6/uL 4.6- 6.1 L [facility] Hemoglobin [Mass/volume] in Blood 8.8 g/dL 13.5-18 L [facility] Hematocrit [Volume Fraction] of Blood by Automated count 26.1 % 4 1-53 L [facility] Erythrocyte mean corpuscular volume [Entitic volume] by Auto mated count 94.4 fL 80-96 [facility] Erythrocyte mean corpuscular hemoglobin [Entitic mass] by Automated count 31.8 pg 27-33 [facility] Erythrocyte mean corpuscular hemoglobin concentration [Mass/volume] by Automated count 33.7 g/dL 32.0-36.0 [facility] [Ratio] by Automated count 16.8 % 11.5-14.5 H [facility] Platelets [#/volume] in Blood by Automated count 137 10*3/uL 150-400 L [facility] Differential cell count method - Blood [facility] Neutrophils/100 leukocytes in Blood by Automated count 54 % [facility] Lymphocytes/100 leukocytes in Blood by Automated count 32 % [facility] Monocytes/100 leukocytes in Blood by Automated count 8 % [facility] Eosinophils/100 leukocytes in Blood by Automated count 5 % [facility] Basophils/100 leukocytes in Blood by Automated count 1 % [facility] Neutrophils [#/volume] in Blood by Automated count 2.44 10*3/uL 1.8-7 .0 [facility] Lymphocytes [#/volume] in Blood by Automated count 1.44 10*3/uL 1.2-4 .0 [facility] Monocytes [#/volume] in Blood by Automated count 0.34 10*3/uL 0-0.8 [facility] Eosinophils [#/volume] in Blood by Automated count 0.23 10*3/uL 0-0.5 [facility] Basophils [#/volume] in Blood by Automated count 0.03 10*3/uL 0-0.2 [facility] Nucleated erythrocytes/100 leukocytes [Ratio] in Blood by Automated count 0 /100{WBCs} 0-0 [facility] ID Date Data Source [id number] 03/24/2020 03:06:[address] [facility] Name Value Range Interpretation Code Description Data Hazel rce(s) Supporting Document(s) Bicarbonate [Moles/volume] in Serum 27 mmol/L 22-29 [facility] Chloride [Moles/volume] in Serum or Plasma 100 mmol/L 98-107 [facility] Creatinine [Mass/volume] in Serum or Plasma 0.80 mg/dL 0.70-1.20 [facility] Glucose [Mass/volume] in Serum or Plasma 80 mg/dL 70-140 [facility] Potassium [Moles/volume] in Serum or Plasma 3.3 mmol/L 3.4-5.1 L [facility] Hemolyzed Sodium [Moles/volume] in Serum or Plasma 136 mmol/L 136-145 [facility] Urea nitrogen [Mass/volume] in Serum or Plasma 8 mg/dL 6-20 [facility] Anion gap 3 in Serum or Plasma 9 mmol/L 8-15 [facility] Osmolality of Serum or Plasma by calculation 279 mosm/kg 275-300 [facility] Creatinine/Urea nitrogen [Mass Ratio] in Serum or Plasma 10 [facility] Calcium [Mass/volume] in Serum or Plasma 7.5 mg/dL 8.6-10.0 L [facility] Glomerular filtration rate/1.73 sq M pre dicted among non-blacks [Volume Rate/Area] in Serum or Plasma by Creatinine-based formula (MDRD) >6 0 [facility] Glomerular filtration rate/1.73 sq M pre dicted among blacks [Volume Rate/Area] in Serum or Plasma by Creatinine-based formula (MDRD) >60 [facility] ID Date Data Source [id number] [facility] Interpretation Code Description Data Hazel rce(s) Supporting Document(s) Glucose [Mass/volume] in Capillary blood by Glucometer 319 mg/dL 70- 140 H [facility] ID Date Data Source [id number] 03/23/2020 09:34:[address] [facility] Value Range Interpretation Code Description Data Hazel rce(s) Supporting Document(s) Glucose [Mass/volume] in Capillary blood by Glucometer 330 mg/dL 70- 140 [facility] ID Date Data Source [id number] 03/23/2020 07:46:22 PM [facility] Value Range Interpretation Code Description Data Hazel rce(s) Supporting Document(s) [facility] BFINQs8iWfYZEpNz94/ZUNbpOSQfn0XaIGpmEWp6JFitTRUxG2AyRQJ5gZ6dBER9WZlNZaBkCeZsLgKr lbm [file] AgICAgICAgICAgICAgICAgICAgICAgICAgICAgICAg VHZcGSHzGNMwOBCpZYTpFSSwLIQpTUKvOONhDSQeFNSwBGZbMQPrLIQbRJ5ULMNhEKVoUSIkPRZoQFWl ICAgICAgICAgICAgICAgICAgICAgICAgICAgICAgICAgICAgICAgICAgICAgICAgICAgICAgICAgICAg CJXqXIRrFFQkYFBvHQJjXOCuZWDxOFEcTQ3BDTDzST AgICAgICAgICAgICAgICAgICAgICAgICAgICAgICAgICAgICAgICAgICAgICAgICAgICAgICAgICAgIC LnXFVxDODyTAYtYVFbLQEhKGKsGMYcEZOfAJMfMIKyDVXrQN8LLAGjCUTcBPYnKMSgKSJxLAKrYQXlPW AgICAgICAgICAgICAgICAgICAgICAgICAgICAgICAg GVQgXAVeMUVuJNXyUCXtRQZxYLKbFSRmCCQfCXZyISWnXMIwWZIbDIYnQFNfPC0KZQBnFALlWCGpKINr ICAgICAgICAgICAgICAgICAgICAgICAgICAgICAgICAgICAgICAgICAgICAgICAgICAgICAgICAgICAg DTOzJPOhLKWcXQPcNNOjFOZnOELmDQZrHYNnJN7ZCF AgICAgICAgICAgICAgICAgICAgICAgICAgICAgICAgICAgICAgICAgICAgICAgICAgICAgICAgICAgIC RvCNTbSPLiSOBaDURlVUBvUZRaWGHhUGGeNNOvZHDhPXLyPTIzET2UZYItQGOeLQHsTJTvCVOrASAwSI AgICAgICAgICAgICAgICAgICAgICAgICAgICAgICAg KMYrCQRoOLXiVHAvKBQkXRFnSXAwMYQjOECgGJKiWUHqSPQdIYGzZLCxXCRdLOShFL8CCCHfYZZvWIVd ICAgICAgICAgICAgICAgICAgICAgICAgICAgICAgICAgICAgICAgICAgICAgICAgICAgICAgICAgICAg ICAgICAgICAgICAgICAgICAgICAgICAgICAgICAgIA 0KICAgICAgICAgICAgICAgICAgICAgICAgICAgICAgICAgICAgICAgICAgICAgICAgICAgICAgICAgIC GvLZPcCXUvTBXnQJAgQSLoLDHwHWBzJGJmZDJgSMYaAAQjGFFnUWCmAF7GQMKfBDQnNOKpQYEjVEAkKI AgICAgICAgICAgICAgICAgICAgICAgICAgICAgICAg XDJdLPRpAPExBQLpEXNySWZtEBRrVXWbAYYsJXDeSZWsZERoWGViRMOaYJNzPUJhTVRyAZ4OEN37oIFk q1R3IZSfBQ0unqg/Kv9VEOwjrkVyoUYfUS3RTjMaEE9oux5HPeFqJU6iby3GGCgNWdDmQ6T7mXRgIRMi PEWDRyWlZ73cTNfvTh45ZCubNPAuVcVgILh9Mp6EKa HbF8xiPCZgYiR4HEWyBeM9SRMuXbH2MBXjYdRzQGSkTIQnMQFyCERMPZK9NSVtYuCoUdYzTEYuQY8HGA EfM515ihLkNu3UYq1EYyGjJP7ulz5DVUPlIGNxOqzEMlj8WMwxCM1NdPXueIU2AVGcPOWILsCtT1klj9 RtZYVuHLPKYRtqRW0Yk8ZykKGjQGx+Rq7ISK4or6Rc EVy7EZHfZV4uen4KQLpHHkYiJ2MxlVynZBHvhtG1qLEyKOP4CRUjCIYqpwNJePofsVRsALIDGANwpUI0 YbSgUmPaNxJqHQM0TLHqPP1yNSkqHH4NPIK1OOhwCTYtTKNhO6aHUfDlJCNlZfCbfDqdYA9EJyJoU7Bh qdMkzXD9BNHeMAXYIn2+DQplbmRvYmoNCjQyIDAgb2 LiZQq8QW4KTBQxCBwbAL9EDQOrdO4cDJzoBG0HLwXkAASaZJTEEfFoN90meMVbYKs7K9LdQyFwMOErJv lsZXMgPDwvTmFtZXMgWyBdDQogID4+ID4+SXimKT5PTBnnzcDhBCSxEh6RZXZrKAZkGL6rPSJfTDSbT3 M1gGegWBJBJlFpX2nwlbrwFQ1oJMZuP070zGammcLo GJZkVIRwDn8NBMItSAL2OFXswBFbLiktOROUCTxkWN5ZyUGyVET8qN6yJEtoFFTrHNJnN4oEFsZztJee JU50fQihkfPwpFCjFUc+Qu0BTX1iw5AyXOk9jeZkRVbvFZXsTZmoDCUlKIErSVGiJHK0GZQ0NBRMStJk ANPlNRRoAVurWSArARPdvm9YVYEoVIY3XEC4ZzWxXD BmJLHwTTxaHTTqCHEfFUI1WVAbUTGySV6VNkCxTZCxPXLhDXxtTMJjXMOdoq9ZPHJuIFXqMiX2TeMiBT SuJUWsIPaaZEOoTIMvUKumGYZkJUOqDV3WTwSrNHDmDET3FvFhRYMyBTVkbo2LNOCqHSLvEbS2ZJVoWG JhXMTeXKorTIEtFOKcNhOwMWWrLLJwAR9KXnGaTXPa HYP8FwQxGOZoXVOfiy7VDIKbKJCtYVVoGBXrJQRuHVStXTxkLNLaYZL4JuX0ZSIkKIYpGR9XNzYgVIMa UGL8OiizMHAeXNIdze2TAUYcEVZmMzC2XCZoXZXpMJVbJYhlYMRdMTKmXbY0SDEdLCDlJI8KPhGoQTKy GiX2IHTrJBAjVVOgqa0XRCPfAVWqHBujXUNmHFLrDL HtUOtaFESbPTZtGRI9RUDaGSHdJC9JCbSrDIDnRySyEBOyDTCeRJAphc3SUQOrIGBdHnQtPxAhTOZxEO UcOProGZAxZKUkPyc7CJVeMFDlAV7DFfJoLJVhTcFgPHVkPRRiODNxtt6GBTBlWNWbIWM5TbNiAISwXY NvJJwzWHHzQGP6EhD3VGZcYBNoMY3WXpLnQEBhPeW5 DHIeREHoHMVbrp0MZBRvEQOiCZk4PUVrKGNhWMRiXEknITFlRTS2NMpwZTLuKIVeVA2XUmGyGVOfVshe TCZtEJZgUPYova3GLDJwAFUrChY7ZIZzKZRtANSlEPyhDANdTMY6UJQuQVGsGSDoAQ7SXuIqULXcShy7 SHccUWNkORBkxu5JVPGfYZDlAPKsYeFfIKIrFQEuVC tpPXNuLFK3QzU3NTLeHPIpZY5NCbAhFALmBhk1DnOjMSIiQTIsnb2IIMAiUCKbSKsbKXHjQUAcVUPgUC ocFRQwYMXgUmH5XDOeGPCpKW4OHlYxPHFxZJY9FINyMMWjKYZnop6SWATkKDD6DLMqARMwMJXlEDMuOV wfEDBpTOYiXYj8CXObQUOhZA7KQnRuUDMnQIC0NJrl ELTcOGWman4BKYDpRZG8HnRfHXMqAVRiIOHcAWwzBFSsKXUcPHxkIQCzDLFbNU7LYfGfJJwaLJSOLan6 POovE8p7GVW5Ks3FT7Epb4HpOCPbJAOYVBeqGP7ogwOdWCOdDm2SN1tDHkeuE1U0T3E3HVT8MUJaJWXj VIV3WTLmIYUoJaK4Z1Y3UR4iPTUvNHQcPlhuFuU4MA AqW5EnBKZqPPEdCRGcRrNsFTMhOhZtPD4GKu5IIxB8UQP9rPXrVz1TBJP4BUAMHyTjBS1JRSh= ID Date Data Source [id number] 03/23/2020 07:09:[address] [facility] Name Value Range Interpretation Code Description Data Hazel rce(s) Supporting Document(s) Leukocytes [#/volume] in Blood by Automated count 5.4 10*3/uL 4-10 [facility] Erythrocytes [#/volume] in Blood by Automated count 2.89 10*6/uL 4.6- 6.1 L [facility] Hemoglobin [Mass/volume] in Blood 9.2 g/dL 13.5-18 L [facility] Hematocrit [Volume Fraction] of Blood by Automated count 27.4 % 4 1-53 L [facility] Erythrocyte mean corpuscular volume [Entitic volume] by Auto mated count 94.7 fL 80-96 [facility] Erythrocyte mean corpuscular hemoglobin [Entitic mass] by Automated count 31.8 pg 27-33 [facility] Erythrocyte mean corpuscular hemoglobin concentration [Mass/volume] by Automated count 33.5 g/dL 32.0-36.0 [facility] width [Ratio] by Automated count 16.8 % 11.5-14.5 H [facility] Platelets [#/volume] in Blood by Automated count 130 10*3/uL 150-400 L [facility] Differential cell count method - Blood [facility] Neutrophils/100 leukocytes in Blood by Automated count 71 % [facility] Lymphocytes/100 leukocytes in Blood by Automated count 20 % [facility] Monocytes/100 leukocytes in Blood by Automated count 6 % [facility] Eosinophils/100 leukocytes in Blood by Automated count 3 % [facility] Basophils/100 leukocytes in Blood by Automated count 0 % [facility] Neutrophils [#/volume] in Blood by Automated count 3.84 10*3/uL 1.8-7 .0 [facility] Lymphocytes [#/volume] in Blood by Automated count 1.08 10*3/uL 1.2-4 .0 L [facility] Monocytes [#/volume] in Blood by Automated count 0.35 10*3/uL 0-0.8 [facility] Eosinophils [#/volume] in Blood by Automated count 0.15 10*3/uL 0-0.5 [facility] Basophils [#/volume] in Blood by Automated count 0.02 10*3/uL 0-0.2 [facility] Nucleated erythrocytes/100 leukocytes [Ratio] in Blood by Automated count 0 /100{WBCs} 0-0 [facility] ID Date Data Source [id number] 03/23/2020 06:06:[address] [facility] Name Value Range Interpretation Code Description Data Hazel rce(s) Supporting Document(s) Glucose [Mass/volume] in Capillary blood by Glucometer 76 mg/dL 70- 140 [facility] ID Date Data Source [id number] 03/23/2020 04:31:15 PM [facility] Name Value Range Interpretation Code Description Data Hazel rce(s) Supporting Document(s) [facility] XZHECc8aAzJEItVl76/EDNurBJJfh8WkINkpVYh3NEbvUQXqF0CxXLC7oH8oGLT0ZTgRVcXiLpApFdRl [facility] [file] ICAgICAgICAgICAgICAgICAgICAgICAgICAgICAgIC WoCOJqEFTxHXOtNOCqSNCeIPCjXGSuNYXxRSFgECYjZJYtVTIhJKVjGUSsWI5DBKXuRINpNTKkLJBnSN AgICAgICAgICAgICAgICAgICAgICAgICAgICAgICAgICAgICAgICAgICAgICAgICAgICAgICAgICAgIC LiPYEdDXLdHAFnASBhXBYpZBOfJETyEUEpID2RYXWx ICAgICAgICAgICAgICAgICAgICAgICAgICAgICAgICAgICAgICAgICAgICAgICAgICAgICAgICAgICAg HYZhGDPgTQAiYIQrDPOeTKUnCTHwLJVyINQoHHUvQTVsABNxQR7FZCTkPWBxZHOqMMQcTOVpFGBxGKQa ICAgICAgICAgICAgICAgICAgICAgICAgICAgICAgIC MmNABeHLKaJELzFTRfPJBqPDRbZHNjQUWiYMOiAUNaONNvYZMaONIaMKPsXSBxWM7AOSCxYJWpMCBnKX AgICAgICAgICAgICAgICAgICAgICAgICAgICAgICAgICAgICAgICAgICAgICAgICAgICAgICAgICAgIC VaHKMbMPMkHNDxZTHwMASfHZWnUSAkBAAsVTVdJM5A ICAgICAgICAgICAgICAgICAgICAgICAgICAgICAgICAgICAgICAgICAgICAgICAgICAgICAgICAgICAg KKXnZFHqWMLuEFTuNREuWDDzRPJiVMBrMKGuVXEaOGXfPULbWKXjBX1LSNZbNVHlFXSuQVNiXWJaLPIh ICAgICAgICAgICAgICAgICAgICAgICAgICAgICAgIC VmEYUpGXKgTJStLYQkPIGgJHOvHCQpIKJwTRKaHVLwTLCwCDPpZIXdEQTwWCJoSWBvBW7NYHTvOYSjKM AgICAgICAgICAgICAgICAgICAgICAgICAgICAgICAgICAgICAgICAgICAgICAgICAgICAgICAgICAgIC AgICAgICAgICAgICAgICAgICAgICAgICAgICAgICAg QO3XVQEaFOIjSTMgVAXrABLxZMQkBDDrGEVsAYTkNNLfPYBfAFKbLWMdRFYyALCqDSChEZHuHOEtCESu JGIrIVBzRSKgPABzOFEiULOwVGJkGYXoZFNwIFSuQYFvARMaXRFfHHNeHI9RRKNoDGVdKRJeMFErLVVb ICAgICAgICAgICAgICAgICAgICAgICAgICAgICAgIC MnSRGnRKFyYHSvQMAkCADsQMUbRGPxHKCdDLZuFMGtKHAwMHXeOHVeENSxUUXvMVRwWFJyME2JNO66gB Sen9P6XPTfLL9xsvn/Wa0BLVmamiBlrOKkQC0QQuKzGB3ioy7JNhSvZT9igh2YJEnLTpVkX0V9aOQzKR WjXJVXZbDwW59rZOsoBp36BWodQVQaGiBfUNf9Qu8E YqGrN6gjWUSzTiX8SDCwPoC3HVZjJnE1OZGpInOzMVTnUNLpBZXtTDKIEME2KJFhMyWaHsTeBZUkDK8M LYXdL877fvAeBu5LJp8BNrJlOY4cco7VPzKjRPUgYwgUHdc5RJobLH7KgKHtjMUlHeYbBARSNbKfM7bg g4FiOvZeAUUDUUaqAV2Mz8OquGMeEPa+Tv5ROC3dd1 OxCRdpOdAtMW7eep7AMIvRPzVbI4LnfXmjNFTnjqP0dMQuXJE1ZEYumzxybDjxQJ5bMr3thLdlUItjWI 0PTlDzaDX0XsFdIdYvMsMpFTF5KKffDW7sEAfpLJ1EVMZ7PPfoADWdMEOaN0aETmEeIGMsLqDdlNyxUJ 0WCcAmX3VyktDygRDfCAAiRCFAHg8+DQplbmRvYmoN NsPuSHEmg3NhLDp3PB2GBGXrFFzdVP5NFNNwzY2nKNacZE7KLmTdRXEbDYOLZpUaN16nvBJvEXj3P8Wv YmVkZGVkRmlsZXMgPDwvTmFtZXMgWyBdDQogID4+ID4+SVwlAD0BJEmcilWxWHMbEu7FPKTeTUWfZY1w CDUdYYVeV6O1kTlzVZZZNdOnX8audrssNX6bHPRiU4 46cFokrsIrRBMeQDWdAc9HXMRlBXI4TVYfbVErEeQwASIXAGduEC1RdCCcKQC8oB4tKTriXHLkBZZvU0 kHKtQaqTkiSP02qJnmceAzqGDaCWj+Ia5FNO2ju7DiVIg3xcShHIwqWDN9SHotLTRnWYGnXWRlWZE9CR I0JSHECvQbJPIqTZTlFGaxXWDhNKBrll6BJZOaQQYt DpWoQkIbPMDcUNGgHKzlTEUjALC4DWZuNPBtZEEcGE2FLqEqOKUrAUGiCIyiJFLwSMUxjo5UKDKiHFYh VeG8LkTePLSjQTClWHssDJJpXAVqOJw6FNHiNNMbEB0YByDfWXCeQWZ8GWDjXHYyTXYjwc1UXPPoRSUq LgC1IUYsICCiZCXdXTfzZFHlDXT0Qqo8MCGhQOXzPP 1RTqChJCQmRAg3HRRzIKXgGPChwe0DZOBaYFTeUvq2LiNnNMCjNQXwPLcmAJDhIGYcCTDqXKRwSTQwYY 7YVkHoWVOvPQViWIXcSLUcKLBjxb9FJOLpHCYmXyPyJULnHSZbOUToOXgzQMAzUJZmTAM7HRIqIKSdTQ 9GKtXmMLZmXvPoLgFqXSCvJLGkil1WBSOvEUSlCXzp WPUjNRJgWVTcPUjaDGGcIFYnDKNhDRRkVWFgSD9MXiFzCJXoLnGoNyMxDCFtBHYhwu7UKONwGVAoZeO2 OPTuTWBjHZXhLAsiTRAfPOEmIPJsZMWkMWCnFJ3PXcPsFSGxWnF6UAGgLEZrEXYdgd9DNJMmEWNzQaNx PmGhYUQaJUYfFGvxRXXyWWMfMSMdNFCuHQFyZK4JRu AgROTzFmExZPDmHDCkISDaiv7AUHCoUTIqMCT5QtUxKWWnQULrKHulIBCrPQC8Khu8VNYfFDTwKD8YAc MuLMFkDtY3OwNxFCZwCDAruu4EZDKgTXMrYaX2LNDjVABuHNBoRHaaWIUqQOP3HPncTPZhSCTpGJ6AWc DtRPFzUhw7RJkdMNTwNSNhnt4OTCLbQJPpAIWiYPCe NNFcLLNcFReqEGYgWMD9DAa0EEPwRGIeUB3HUfSwJAueUWKFEbt5TIolW3b7BRBwMQ0HD9Eqg6RcOaJc KJIQFFtyEH6dzxVyQIWoFw4GP1sMPai4XbPpGjs2SePzFHSoKwDfEOV2ZyZ0ReZoJLVeOuIwSd7fRHb4 JCI9LHH2RDGgJXWgFRNnVAO1Uec8OYNbIZW1QNKzRe JfQW9DGt5AFtT9BUR6gFKcMc2PIol6FzRPPxYbEU5BSVb= ID Date Data Source [id number] 03/23/2020 12:56:11 PM [facility] Value Range Interpretation Code Description Data Hazel rce(s) Supporting Document(s) Glucose [Mass/volume] in Capillary blood by Glucometer 166 mg/dL 70- 140 H [facility] ID Date Data Source [id number] 03/23/2020 09:21:57 AM [facility] Value Range Interpretation Code Description Data Hazel rce(s) Supporting Document(s) Glucose [Mass/volume] in Capillary blood by Glucometer 183 mg/dL 70- 140 [facility] ID Date Data Source [id number] 03/23/2020 09:13:02 AM [facility] Value Range Interpretation Code Description Data Hazel rce(s) Supporting Document(s) Leukocytes [#/volume] in Blood by Automated count 4.5 10*3/uL 4-10 [facility] Erythrocytes [#/volume] in Blood by Automated count 2.88 10*6/uL 4.6- 6.1 L [facility] Hemoglobin [Mass/volume] in Blood 9.4 g/dL 13.5-18 L [facility] Hematocrit [Volume Fraction] of Blood by Automated count 27.6 % 4 1-53 [facility] Erythrocyte mean corpuscular volume [Entitic volume] by Auto mated count 95.8 fL 80-96 [facility] Erythrocyte mean corpuscular hemoglobin [Entitic mass] by Automated count 32.8 pg 27-33 [facility] Erythrocyte mean corpuscular hemoglobin concentration [Mass/volume] by Autom[facility] 34.2 g/dL [facility].0[facility] width [Ratio] by Automated count 17.0 % 11.5-14.5 [facility] Platelets [#/volume] in Blood by Automated count 119 10*3/uL 150-400 L [facility] ID Date Data Source [id number] 03/23/2020 03:44:43 PM [facility] Value Range Interpretation Code Description Data Hazel rce(s) Supporting Document(s) Bicarbonate [Moles/volume] in Serum 25 mmol/L 22-29 [facility] Chloride [Moles/volume] in Serum or Plasma 102 mmol/L 98-107 [facility] Creatinine [Mass/volume] in Serum or Plasma 0.87 mg/dL 0.70-1.20 [facility] Glucose [Mass/volume] in Serum or Plasma 170 mg/dL 70-140 [facility] Potassium [Moles/volume] in Serum or Plasma 3.6 mmol/L 3.4-5.1 [facility] Sodium [Moles/volume] in Serum or Plasma 139 mmol/L 136-145 [facility] Urea nitrogen [Mass/volume] in Serum or Plasma 8 mg/dL 6-20 [facility] Anion gap 3 in Serum or Plasma 12 mmol/L 8-15 [facility] Osmolality of Serum or Plasma by calculation 290 mosm/kg 275-300 [facility] Creatinine/Urea nitrogen [Mass Ratio] in Serum or Plasma 9 [facility] Calcium [Mass/volume] in Serum or Plasma 7.6 mg/dL 8.6-10.0 L [facility] Glomerular filtration rate/1.73 sq M pre dicted among non-blacks [Volume Rate/Area] in Serum or Plasma by Creatinine-based formula (MDRD) >6 0 [facility] Glomerular filtration rate/1.73 sq M pre dicted among blacks [Volume Rate/Area] in Serum or Plasma by Creatinine-based formula (MDRD) >60 [facility] ID Date Data Source [id number] 03/23/2020 06:37:[address] [facility] Name Value Range Interpretation Code Description Data Hazel rce(s) Supporting Document(s) Leukocytes [#/volume] in Blood by Automated count 3.5 10*3/uL 4-10 L [facility] Erythrocytes [#/volume] in Blood by Automated count 2.09 10*6/uL 4.6- 6.1 [facility] Hemoglobin [Mass/volume] in Blood 6.6 g/dL 13.5-18 L [facility] Hematocrit [Volume Fraction] of Blood by Automated count 19.8 % 4 1-53 [facility] No significant change since last result called Erythrocyte mean corpuscular volume [Entitic volume] by Auto mated count 94.7 fL 80-96 [facility] Erythrocyte mean corpuscular hemoglobin [Entitic mass] by Automated count 31.7 pg 27-33 [facility] Erythrocyte mean corpuscular hemoglobin concentration [Mass/volume] by Automated count 33.4 g/dL 32.0-36.0 [facility] width [Ratio] by Automated count 16.5 % 11.5-14.5 [facility] Platelets [#/volume] in Blood by Automated count 93 10*3/uL 150-400 [facility] Differential cell count method - Blood [facility] Neutrophils/100 leukocytes in Blood by Automated count 52 % [facility] Lymphocytes/100 leukocytes in Blood by Automated count 33 % [facility] Monocytes/100 leukocytes in Blood by Automated count 8 % [facility] Eosinophils/100 leukocytes in Blood by Automated count 7 % [facility] Basophils/100 leukocytes in Blood by Automated count 0 % [facility] Neutrophils [#/volume] in Blood by Automated count 1.84 10*3/uL 1.8-7 .0 [facility] Lymphocytes [#/volume] in Blood by Automated count 1.13 10*3/uL 1.2-4 .0 [facility] [facility] Monocytes [#/volume] in Blood by Automated count 0.26 10*3/uL 0-0.8 [facility] Eosinophils [#/volume] in Blood by Automated count 0.23 10*3/uL 0-0.5 [facility] Basophils [#/volume] in Blood by Automated count 0.01 10*3/uL 0-0.2 [facility] Nucleated erythrocytes/100 leukocytes [Ratio] in Blood by Automated count 0 /100{WBCs} 0-0 [facility] ID Date Data Source [id number] 03/22/2020 11:35:13 PM [facility] Name Value Range Interpretation Code Description Data Hazel rce(s) Supporting Document(s) Leukocytes [#/volume] in Blood by Automated count 5.1 10*3/uL 4-10 [facility] Erythrocytes [#/volume] in Blood by Automated count 2.14 10*6/uL 4.6- 6.1 L [facility] Hemoglobin [Mass/volume] in Blood 6.9 g/dL 13.5-18 L [facility] Hematocrit [Volume Fraction] of Blood by Automated count 20.7 % 4 1-53 [facility] Called to and read back by sharmila villegas rn on 6a at 0 by 2050 Erythrocyte mean corpuscular volume [Entitic volume] by Auto mated count 96.6 fL 80-96 H [facility] Erythrocyte mean corpuscular hemoglobin [Entitic mass] by Automated count 32.3 pg 27-33 [facility] Erythrocyte mean corpuscular hemoglobin concentration [Mass/volume] by Automated count 33.5 g/dL 32.0-36.0 [facility] width [Ratio] by Automated count 15.9 % 11.5-14.5 H [facility] Platelets [#/volume] in Blood by Automated count 112 10*3/uL 150-400 L [facility] Differential cell count method - Blood [facility] Neutrophils/100 leukocytes in Blood by Automated count 63 % [facility] Lymphocytes/100 leukocytes in Blood by Automated count 25 % [facility] Monocytes/100 leukocytes in Blood by Automated count 6 % [facility] Eosinophils/100 leukocytes in Blood by Automated count 5 % [facility] Basophils/100 leukocytes in Blood by Automated count 1 % [facility] Neutrophils [#/volume] in Blood by Automated count 3.20 10*3/uL 1.8-7 .0 [facility] Lymphocytes [#/volume] in Blood by Automated count 1.26 10*3/uL 1.2-4 .0 [facility] Monocytes [#/volume] in Blood by Automated count 0.33 10*3/uL 0-0.8 [facility] Eosinophils [#/volume] in Blood by Automated count 0.27 10*3/uL 0-0.5 [facility] Basophils [#/volume] in Blood by Automated count 0.04 10*3/uL 0-0.2 [facility] Nucleated erythrocytes/100 leukocytes [Ratio] in Blood by Automated count 0 /100{WBCs} 0-0 [facility] ID Date Data Source [id number] 03/22/2020 09:30:[address] [facility] Name Value Range Interpretation Code Description Data Hazel rce(s) Supporting Document(s) Glucose [Mass/volume] in Capillary blood by Glucometer 115 mg/dL 70- 140 [facility] ID Date Data Source [id number] 03/22/2020 05:44:[address] [facility] Name Value Range Interpretation Code Description Data Hazel rce(s) Supporting Document(s) Glucose [Mass/volume] in Capillary blood by Glucometer 238 mg/dL 70- 140 H [facility] ID Date Data Source [id number] 03/22/2020 03:22:[address] [facility] MR BILIARY TREE MRCP [id number] RESULTIn terpreted by:KEITH QuintanaPROCEDURE INFORMATION: Exam: MR Abdomen Without Contrast Exam date and time: 03/22/2020 11:00 AM Age: 55 years old Clinical indication: Essential (primary) hypertension; Abdominal pain; Generalized; Additional info: Pancreatic, bile duct dilatation, abdominal pain TECHNIQUE: Imaging protocol: MR of the abdomen without contrast. 3D rendering: MIP and/or 3D reconstructed images were created by the technologist. COMPARISON: CT ABDOMEN WITH CONTRAST [id number] 03/21/2020 5:53 AM FINDINGS: Pleura: Trace pleural [...] rce(s) Supporting Document(s) ID Date Data Source [id number] 03/22/2020 03:37:44 PM [facility] Name Value Range Interpretation Code Description Data Hazel rce(s) Supporting Document(s) Glucose [Mass/volume] in Capillary blood by Glucometer 273 mg/dL 70- 140 H [facility] ID Date Data Source [id number] 03/22/2020 01:15:26 PM [facility] Name Value Range Interpretation Code Description Data Hazel rce(s) Supporting Document(s) Leukocytes [#/volume] in Blood by Automated count 4.4 10*3/uL 4-10 [facility] Erythrocytes [#/volume] in Blood by Automated count 2.44 10*6/uL 4.6- 6.1 L [facility] Hemoglobin [Mass/volume] in Blood 8.0 g/dL 13.5-18 L [facility] Hematocrit [Volume Fraction] of Blood by Automated count 23.5 % 4 1-53 L [facility] Erythrocyte mean corpuscular volume [Entitic volume] by Auto mated count 96.6 fL 80-96 H [facility] Erythrocyte mean corpuscular hemoglobin [Entitic mass] by Automated count 32.8 pg 27-33 [facility] Erythrocyte mean corpuscular hemoglobin concentration [Mass/volume] by Automated count 34.0 g/dL 32.0-36.0 [facility] distribution width [Ratio] by Automated count 16.0 % 11.5-14.5 H [facility] Platelets [#/volume] in Blood by Automated count 131 10*3/uL 150-400 L [facility] Differential cell count method - Blood [facility] Neutrophils/100 leukocytes in Blood by Automated count 72 % [facility] Lymphocytes/100 leukocytes in Blood by Automated count 18 % [facility] Monocytes/100 leukocytes in Blood by Automated count 5 % [facility] Eosinophils/100 leukocytes in Blood by Automated count 4 % [facility] Basophils/100 leukocytes in Blood by Automated count 1 % [facility] Neutrophils [#/volume] in Blood by Automated count 3.18 10*3/uL 1.8-7 .0 [facility] Lymphocytes [#/volume] in Blood by Automated count 0.77 10*3/uL 1.2-4 .0 L [facility] Monocytes [#/volume] in Blood by Automated count 0.22 10*3/uL 0-0.8 [facility] Eosinophils [#/volume] in Blood by Automated count 0.17 10*3/uL 0-0.5 [facility] Basophils [#/volume] in Blood by Automated count 0.03 10*3/uL 0-0.2 [facility] Nucleated erythrocytes/100 leukocytes [Ratio] in Blood by Automated count 0 /100{WBCs} 0-0 [facility] ID Date Data Source [id number] 03/22/2020 08:17:15 AM [facility] Name Value Range Interpretation Code Description Data Hazel rce(s) Supporting Document(s) Glucose [Mass/volume] in Capillary blood by Glucometer 148 mg/dL 70- 140 H [facility] ID Date Data Source [id number] 03/22/2020 05:12:40 AM [facility] Name Value Range Interpretation Code Description Data Hazel rce(s) Supporting Document(s) Leukocytes [#/volume] in Blood by Automated count 5.0 10*3/uL 4-10 [facility] Erythrocytes [#/volume] in Blood by Automated count 2.76 10*6/uL 4.6- 6.1 L [facility] Hemoglobin [Mass/volume] in Blood 9.0 g/dL 13.5-18 L [facility] Hematocrit [Volume Fraction] of Blood by Automated count 26.5 % 4 1-53 L [facility] Erythrocyte mean corpuscular volume [Entitic volume] by Auto mated count 95.9 fL 80-96 [facility] Erythrocyte mean corpuscular hemoglobin [Entitic mass] by Automated count 32.5 pg 27-33 [facility] Erythrocyte mean corpuscular hemoglobin concentration [Mass/volume] by Automated count 33.8 g/dL 32.0-36.0 [facility]th[facility] distribution width [Ratio] by Automated count 15.6 % 11.5-14.5 H [facility] Platelets [#/volume] in Blood by Automated count 139 10*3/uL 150-400 L [facility] Differential cell count method - Blood [facility] Neutrophils/100 leukocytes in Blood by Automated count 56 % [facility] Lymphocytes/100 leukocytes in Blood by Automated count 33 % [facility] Monocytes/100 leukocytes in Blood by Automated count 4 % [facility] Eosinophils/100 leukocytes in Blood by Automated count 6 % [facility] Basophils/100 leukocytes in Blood by Automated count 1 % [facility] Neutrophils [#/volume] in Blood by Automated count 2.78 10*3/uL 1.8-7 .0 [facility] Lymphocytes [#/volume] in Blood by Automated count 1.64 10*3/uL 1.2-4 .0 [facility] Monocytes [#/volume] in Blood by Automated count 0.22 10*3/uL 0-0.8 [facility] Eosinophils [#/volume] in Blood by Automated count 0.29 10*3/uL 0-0.5 [facility] Basophils [#/volume] in Blood by Automated count 0.03 10*3/uL 0-0.2 [facility] Nucleated erythrocytes/100 leukocytes [Ratio] in Blood by Automated count 0 /100{WBCs} 0-0 [facility] ID Date Data Source [id number] 03/22/2020 05:24:[address] [facility] Name Value Range Interpretation Code Description Data Hazel rce(s) Supporting Document(s) Albumin [Mass/volume] in Serum or Plasma by Bromocresol green (BCG) dye binding method 3.0 g/dL 3.5-5.2 L [facility] Bilirubin.total [Mass/volume] in Serum or Plasma 0.4 mg/dL <1.2 [facility] Calcium [Mass/volume] in Serum or Plasma 8.3 mg/dL 8.6-10.0 L [facility] Chloride [Moles/volume] in Serum or Plasma 100 mmol/L 98-107 [facility] Creatinine [Mass/volume] in Serum or Plasma 0.98 mg/dL 0.70-1.20 [facility] Glucose [Mass/volume] in Serum or Plasma 201 mg/dL 70-140 H [facility] Alkaline phosphatase [Enzymatic activity/volume] in Serum or Plasma 96 U/L 40-129 [facility] Potassium [Moles/volume] in Serum or Plasma 3.5 mmol/L 3.4-5.1 [facility] Protein [Mass/volume] in Serum or Plasma 5.3 g/dL 6.4-8.3 L [facility] Sodium [Moles/volume] in Serum or Plasma 135 mmol/L 136-145 L [facility] Aspartate aminotransferase [Enzymatic activity/volume] in Serum or Plasma 34 U/L <40 [facility] Urea nitrogen [Mass/volume] in Serum or Plasma 11 mg/dL 6-20 [facility] Osmolality of Serum or Plasma by calculation 284 mosm/kg 275-300 [facility] Creatinine/Urea nitrogen [Mass Ratio] in Serum or Plasma 12 [facility] Bicarbonate [Moles/volume] in Serum 24 mmol/L 22-29 [facility] Alanine aminotransferase [Enzymatic activity/volume] in Seru m or Plasma 20 U/L <41 [facility] Anion gap 3 in Serum or Plasma 11 mmol/L 8-15 [facility] Glomerular filtration rate/1.73 sq M pre dicted among non-blacks [Volume Rate/Area] in Serum or Plasma by Creatinine-based formula (MDRD) >6 0 [facility] Glomerular filtration rate/1.73 sq M pre dicted among blacks [Volume Rate/Area] in Serum or Plasma by Creatinine-based formula (MDRD) >60 [facility] ID Date Data Source [id number] 03/22/2020 05:58:27 AM [facility] Value Range Interpretation Code Description Data Hazel rce(s) Supporting Document(s) Glucose [Mass/volume] in Capillary blood by Glucometer 203 mg/dL 70- 140 H [facility] ID Date Data Source [id number] 03/22/2020 12:55:49 AM [facility] Value Range Interpretation Code Description Data Hazel rce(s) Supporting Document(s) Glucose [Mass/volume] in Capillary blood by Glucometer 196 mg/dL 70- 140 H [facility] ID Date Data Source [id number] 03/21/2020 09:26:29 PM [facility] Value Range Interpretation Code Description Data Hazel rce(s) Supporting Document(s) Consultation [facility] NEBCFj4wCyOTEgLb05/KBIejERMlc4VfIUwaUNe3LJbxNRLyO7WiFYH5fK0uPEK3TNtXKiImYzLlYtKk lbm [file] AgICAgICAgICAgICAgICAgICAgICAgICAgICAgICAg GDEfBSTuVQZsJKOeNXMdSBYnWCQiPEBeBJQdCSUnSCTgBTLlBOArBBSxPYZqCVHnSKYzHK0DKCYdIRFm ICAgICAgICAgICAgICAgICAgICAgICAgICAgICAgICAgICAgICAgICAgICAgICAgICAgICAgICAgICAg ICAgICAgICAgICAgICAgICAgICAgICAgICAgICAgIC MqTO0VPBBiVKNqGNChVNMyMPBuAMKmWUEzTOLvJNSnBTYxDHXcZVQdLSQrXBKfULRcFHLjIOMcNGSmDQ LzLXViBIZjCTQuHPOiZDWeADNqMFKnXCIyOKEjUIDqMYGnBYUrXDUpVNIpJB9KOCFwXDScXIQtEHGzYY AgICAgICAgICAgICAgICAgICAgICAgICAgICAgICAg XHWyLONfACFxFTBxJJFjJFLqRAOvJMHiNVXrBATwNPWyZLPmKXVbBMWnDEXyZAXrXCLhKGMkRQ3VPYAv ICAgICAgICAgICAgICAgICAgICAgICAgICAgICAgICAgICAgICAgICAgICAgICAgICAgICAgICAgICAg ICAgICAgICAgICAgICAgICAgICAgICAgICAgICAgIC YyQDXwET6GLEBlLPUcWWFvOBPuKOLhXPIcRZAaODGyEYNgGJRyTZOlTCVrNEDkHGPpNAXeNHKvXBJeHD BsXEHcKCJzVAJlWUOgDSIgHUGmGHIsRIRzWEUeNLPlZNZdBFQpBYStBRZkOLJnXA7IXDXdWZZkGJKqWH AgICAgICAgICAgICAgICAgICAgICAgICAgICAgICAg FLJcVQNqWRTfJNDqVHZeSPSjSGUpUZHcJTTdOEXcNKSeJKJxACNhQVFjPUWrWSAaMIOpLKHsFSClHE3S ICAgICAgICAgICAgICAgICAgICAgICAgICAgICAgICAgICAgICAgICAgICAgICAgICAgICAgICAgICAg ICAgICAgICAgICAgICAgICAgICAgICAgICAgICAgIC UzNNVfULIsXH7ZOCFuPGPuYSOuTVAjBXRtEYEiOKHgNXWxNOAmBLDfYIEkONGvXBEoZVAmEGIoKUBhPW OxLYXfBOKxEXAxHVXwWZXuHOYcXALrUWJaWFCzDZBtGSFlHXOuULXsFLNcWZJeHPNrDJ1ZTS29iXOos3 O9YZKwCM2oqqh/Ik9SHGwhqwTizJPiOC2UGeIlOO2n ul5OClNhCW9fgd9FNWwZNyVxR3E4zPGnOAKrZRCVWjBqZ10yGMuaPu30GMboMPUcLuEbDWv1Vk6IDcTf P4ceVLUsGnW8DEDoByX7DQUxQcB2XUJhZrEzERKsLDAxZSEzDPAPXY7OZfYwX4DmlJ28GQNPDm5+DQpl owJkOdoKQfJaEUZvr6HkCEn9QQ9IXPWcSvasc2XgPv LbQCCLNBsrBG2STJB1EYWhDDBmOc6REHGkJ846arJzFI4ABn7XSzQtGJ6uwd8MYxLiFCYrNadQYiw0OJ jxAD8VdHAxXKkSp28ckHk2ffYawDCUy44wpKSvYLUIepfxf365m6uiRZBRJLFjpJC8VlVaTjEcCbScHY P4GRGvGM4qHMtgBB6TSUF7ZZqsHOEnWHGlM8zZRySv JFAzBwPdgWroHU4KMlKwE6AzixQvpPGzJTYjAPFDIh5+YYcxukVrOgoIFgTvYENzd3ImNTe0TS2HSFPg PCjeBK3ZOAQjsK2jEPqlKO9WGwPlTBMoNMBBOlYlY63guHYyILu1Z7JiKhArYCUeHdviHTTtQLnzYvFn ZXMgWyBdDQogID4+ID4+JUrrBL5XDSiuwcFtKXZvMl 8IFYOnKEVpZM3cMBDfRFEjE2V6vGrtJXDREmGxG0lqfwqcRL7jVVQeP112nPvrjqNqNYOeLJRmTm7CMU WqTVP3NMLutFJaWxezASQBWSbrWM3CdWZyTKP4mB0fVYnaRKBrUEGxS1bQBxYcsXtlKO05rHtudvHifN BdDQo+Eo6JTL9wv3JkJOd0nkBtDFifMAMgHRmlCQQv NPVkCKCgUSY8PAE4LMWLPvGyIODkLUToXQgsVPOwSWLlpt7KUEUlBRGgZRXoJlNgRDFhDBJaTOraTOBh CEP2WuF0XMRtERYrCF9VQnKtIJAgBNYmWEioRPOzXHQjsj8NTBHcIVYlXiM4MmXtHEOrNBEvPJgbYNBv QPLsVuJrAXLhUVBdJL1CRsPxPVEwAVL8SYLpDBVfOU Ikpb4ISKYgACSfVgWpWKPyLNWsLAKhMDhyTJKaYHToWLL9ERMrPPOtUK7ZWxUoLPGwANMtMEgeOZNqGJ Gwye3JMXZmLBXbYoZeAYGyBLEbKJHhBLsmPBDmTAS8AdWzDCUoGLIbSH7PGdDiAMVlMMb3GCznNUGzGY Opoc4KVSSzVTGsRvmcWMKlQRRePYGdVNsjTODuUUA9 OpY5VRTdUXCyXZ9QSwZnNQWlDEo8IkQwGUVaRXXxtr5EXRJaADLzUPA1INNwWQOiOKPpNCkpFYOaKCLu IXRoJNQbMAJbBJ2VDgRgXQFlSeJiDLLvPWOyBWXmgg8NGLApTBBfTDO7LnEbOYWzLNQjQFlbZMLnXFTe Exp1IBWtXWSnXT2DVpRdOXXaWtXbUQKbZYJcJYJenl 6SIUJyTFFgYlExAXWgLKTrPAIxBBesFLFeJIFwXVJ7DTZzFGIeYI9QBbZmLRQjWsL7RAUgFAMsNJXobd 5MKTOaCQHqAwZmNIMzTFCnDBKyPAokWJIfRGGxMNXoGZIyUDEvNP8VVqRwGBRyJoOgPZByEACrSCFlfo 5ZSRImLNVeLOFfEzMhFXPmAOKaFXecRVPeQII5RGxg TKRdHWDtGA5NEvLdFMHhIbU3RRMlVVZrDTImtk6GEKRiASLyQcDrAVJoFVNgHYPcNYy3wdMtxFQzMTj1 GE1JG1ZqthFdZcFISs7Gg679GPFiHFNdCx1TT6soZb3mZRIrBWKFNk2ZSBn4AAYuXgZ6DCC1KGXyWKam PRDmCMU5RHuxCiVyZnSpOUH+PFk0LJWgVCZ3ApEvPF IjETUbMEYiPxIqWvZeIUZkGED6PL9iIFENFi6+ANmlvTXvbSqsNQWOAjX6IlM9PGkoZGUJBa4I ID Date Data Source [id number] 03/21/2020 09:12:[address] [facility] Name Value Range Interpretation Code Description Data Hazel rce(s) Supporting Document(s) Consultation [facility] JORWLh2hMlOCWrUv32/GQLmvDKNwn3SuNVhxUWm1WIcxMTXmE8LlWWC8jC2xUWZ4OQqNZgEwYdYiFsXe lbm [file] F2WSPkMbc4Ci7qIRYATj2+WDzggLEsnDcjQGAKKeoxHGzjDYtqSOFEFi3X ID Date Data Source [id number] 03/21/2020 09:51:[address] [facility] Name Value Range Interpretation Code Description Data Hazel rce(s) Supporting Document(s) Leukocytes [#/volume] in Blood by Automated count 3.6 10*3/uL 4-10 L [facility] Erythrocytes [#/volume] in Blood by Automated count 2.45 10*6/uL 4.6- 6.1 L [facility] Hemoglobin [Mass/volume] in Blood 8.1 g/dL 13.5-18 L [facility] Hematocrit [Volume Fraction] of Blood by Automated count 23.9 % 4 1-53 L [facility] Erythrocyte mean corpuscular volume [Entitic volume] by Auto mated count 97.8 fL 80-96 H [facility] Erythrocyte mean corpuscular hemoglobin [Entitic mass] by Automated count 33.0 pg 27-33 [facility] Erythrocyte mean corpuscular hemoglobin concentration [Mass/volume] by Automated count 33.8 g/dL 32.0-36.0 [facility] width [Ratio] by Automated count 16.2 % 11.5-14.5 H [facility] Platelets [#/volume] in Blood by Automated count 124 10*3/uL 150-400 L [facility] Differential cell count method - Blood [facility] Neutrophils/100 leukocytes in Blood by Automated count 60 % [facility] Lymphocytes/100 leukocytes in Blood by Automated count 28 % [facility] Monocytes/100 leukocytes in Blood by Automated count 7 % [facility] Eosinophils/100 leukocytes in Blood by Automated count 4 % [facility] Basophils/100 leukocytes in Blood by Automated count 1 % [facility] Neutrophils [#/volume] in Blood by Automated count 2.16 10*3/uL 1.8-7 .0 [facility] Lymphocytes [#/volume] in Blood by Automated count 0.99 10*3/uL 1.2-4 .0 L [facility] Monocytes [#/volume] in Blood by Automated count 0.26 10*3/uL 0-0.8 [facility] Eosinophils [#/volume] in Blood by Automated count 0.14 10*3/uL 0-0.5 [facility] Basophils [#/volume] in Blood by Automated count 0.03 10*3/uL 0-0.2 [facility] Nucleated erythrocytes/100 leukocytes [Ratio] in Blood by Automated count 0 /100{WBCs} 0-0 [facility] ID Date Data Source [id number] 03/21/2020 05:23:[address] [facility] Name Value Range Interpretation Code Description Data Hazel rce(s) Supporting Document(s) Glucose [Mass/volume] in Capillary blood by Glucometer 138 mg/dL 70- 140 [facility] ID Date Data Source [id number] 03/21/2020 05:06:[address] [facility] NM GI BLOOD LOSS IMAGING [id number] RESU LTInterpreted by:Bebeto Torres, DOIMARKICATION: GI bleedTECHNIQUE: Following the intravenous injection of [...] rce(s) Supporting Document(s) ID Date Data Source [id number] 03/21/2020 02:42:[address] [facility] Name Value Range Interpretation Code Description Data Hazel rce(s) Supporting Document(s) Leukocytes [#/volume] in Blood by Automated count 3.8 10*3/uL 4-10 L [facility] Erythrocytes [#/volume] in Blood by Automated count 2.69 10*6/uL 4.6- 6.1 L [facility] Hemoglobin [Mass/volume] in Blood 8.7 g/dL 13.5-18 L [facility] Hematocrit [Volume Fraction] of Blood by Automated count 26.0 % 4 1-53 L [facility] Erythrocyte mean corpuscular volume [Entitic volume] by Auto mated count 96.8 fL 80-96 H [facility] Erythrocyte mean corpuscular hemoglobin [Entitic mass] by Automated count 32.4 pg 27-33 [facility] Erythrocyte mean corpuscular hemoglobin concentration [Mass/volume] by Automated count 33.5 g/dL 32.0-36.0 [facility] Erythrocyte distribution width [Ratio] by Automated count 16.1 % 11.5-14.5 H [facility] Platelets [#/volume] in Blood by Automated count 135 10*3/uL 150-400 L [facility] ID Date Data Source [id number] 03/21/2020 01:56:[address] [facility] Value Range Interpretation Code Description Data Hazel rce(s) Supporting Document(s) Sodium [Moles/volume] in Urine 99 mmol/L [facility] ID Date Data Source [id number] [facility] Code Description Data Hazel rce(s) Supporting Document(s) Glucose [Mass/volume] in Capillary blood by Glucometer 122 mg/dL 70- 140 [facility] ID Date Data Source [id number] 03/[facility]2020 [facility]:24[facility] Interpretation Code Description Data Hazel rce(s) Supporting Document(s) Lactate [Moles/volume] in Serum or Plasma 1.4 mmol/l 0.5-2.2 [facility] ID Date Data Source [id number] 03/[facility]2020 [facility]:28[facility] Interpretation Code Description Data Hazel rce(s) Supporting Document(s) Osmolality of Serum or Plasma 285 mosm/kg 285-295 [facility] ID Date Data Source [id number] 03/21/2020 09:03:[facility] Interpretation Code Description Data Hazel rce(s) Supporting Document(s) EKG [facility] FHJIYz0vQeDNOlQxm8ItZlShGKWnBL2majm2Y4F7qMWuT9BsfYZlq2ufP1QjA4KxHXNfZLDPAR4LcXHn jb2 [file] ft3xKnSA/5r//director oracle/+H/+Wf/+M///X/+ymsu3ws2Yi8e/b9GP/E3koarMb+8ATWvj/xLnc/MLjsz4gtYh [file] MrO3YHS3sHArCqd3YeCpCBqqLFRAFm== ID Date Data Source [id number] 03/21/2020 12:24:[address] [facility] Name Value Range Interpretation Code Description Data Hazel rce(s) Supporting Document(s) Glucose [Mass/volume] in Capillary blood by Glucometer 129 mg/dL 70- 140 [facility] ID Date Data Source [id number] 03/21/2020 07:07:[address] [facility] [address] ABDOMEN WITH CONTRAST [id number] RESU LTInterpreted by:LENKA MinorROCEDURE INFORMATION: Exam: CT [...] Name Value Range Interpretation Code Description Data [facility] rce(s) Supporting Document(s) ID Date Data Source [id number] 03/21/2020 06:22:38 AM [facility] Name Value Range Interpretation Code [facility]) Leukocytes [#/volume] in Blood by Automated count 4.2 10*3/uL 4-10 [facility] Erythrocytes [#/volume] in Blood by Automated count 2.75 10*6/uL 4.6- 6.1 L [facility] Hemoglobin [Mass/volume] in Blood 8.8 g/dL 13.5-18 L [facility] Hematocrit [Volume Fraction] of Blood by Automated count 26.4 % 4 1-53 L [facility] Erythrocyte mean corpuscular volume [Entitic volume] by Auto mated count 95.9 fL 80-96 [facility] Erythrocyte mean corpuscular hemoglobin [Entitic mass] by Automated count 32.1 pg 27-33 [facility] Erythrocyte mean corpuscular hemoglobin concentration [Mass/volume] by Automated count 33.5 g/dL 32.0-36.0 [facility] width [Ratio] by Automated count 15.8 % 11.5-14.5 H [facility] Platelets [#/volume] in Blood by Automated count 143 10*3/uL 150-400 L [facility] Differential cell count method - Blood [facility] Neutrophils/100 leukocytes in Blood by Automated count 70 % [facility] Lymphocytes/100 leukocytes in Blood by Automated count 22 % [facility] Monocytes/100 leukocytes in Blood by Automated count 6 % [facility] Eosinophils/100 leukocytes in Blood by Automated count 1 % [facility] Basophils/100 leukocytes in Blood by Automated count 1 % [facility] Neutrophils [#/volume] in Blood by Automated count 2.95 10*3/uL 1.8-7 .0 [facility] Lymphocytes [#/volume] in Blood by Automated count 0.92 10*3/uL 1.2-4 .0 L [facility] Monocytes [#/volume] in Blood by Automated count 0.25 10*3/uL 0-0.8 [facility] Eosinophils [#/volume] in Blood by Automated count 0.05 10*3/uL 0-0.5 [facility] Basophils [#/volume] in Blood by Automated count 0.02 10*3/uL 0-0.2 [facility] Nucleated erythrocytes/100 leukocytes [Ratio] in Blood by Automated count 0 /100{WBCs} 0-0 [facility] ID Date Data Source [id number] 03/21/2020 06:40:[address] [facility] Name Value Range Interpretation Code Description Data Hazel rce(s) Supporting Document(s) Albumin [Mass/volume] in Serum or Plasma by Bromocresol green (BCG) dye binding method 3.3 g/dL 3.5-5.2 [facility] Bilirubin.total [Mass/volume] in Serum or Plasma 0.7 mg/dL <1.2 [facility] Calcium [Mass/volume] in Serum or Plasma 7.7 mg/dL 8.6-10.0 L [facility] Chloride [Moles/volume] in Serum or Plasma 97 mmol/L 98-107 L [facility] Creatinine [Mass/volume] in Serum or Plasma 0.93 mg/dL 0.70-1.20 [facility] Glucose [Mass/volume] in Serum or Plasma 142 mg/dL 70-140 H [facility] Alkaline phosphatase [Enzymatic activity/volume] in Serum or Plasma 99 U/L 40-129 [facility] Potassium [Moles/volume] in Serum or Plasma 3.5 mmol/L 3.4-5.1 [facility] Protein [Mass/volume] in Serum or Plasma 5.3 g/dL 6.4-8.3 L [facility] Sodium [Moles/volume] in Serum or Plasma 132 mmol/L 136-145 L [facility] Aspartate aminotransferase [Enzymatic activity/volume] in Serum or Plasma 42 U/L <40 H [facility] Urea nitrogen [Mass/volume] in Serum or Plasma 15 mg/dL 6-20 [facility] Osmolality of Serum or Plasma by calculation 277 mosm/kg 275-300 [facility] Creatinine/Urea nitrogen [Mass Ratio] in Serum or Plasma 16 [facility] Bicarbonate [Moles/volume] in Serum 23 mmol/L 22-29 [facility] Alanine aminotransferase [Enzymatic activity/volume] in Seru m or Plasma 23 U/L <41 [facility] Anion gap 3 in Serum or Plasma 12 mmol/L 8-15 [facility] Glomerular filtration rate/1.73 sq M pre dicted among non-blacks [Volume Rate/Area] in Serum or Plasma by Creatinine-based formula (MDRD) >6 0 [facility] Glomerular filtration rate/1.73 sq M pre dicted among blacks [Volume Rate/Area] in Serum or Plasma by Creatinine-based formula (MDRD) >60 [facility] ID Date Data Source [id number] 03/21/2020 06:36:[address] [facility] Name Value Range Interpretation Code Description Data Hzael rce(s) Supporting Document(s) ABO and Rh group [Type] in Blood [facility] Blood bank comment [facility] ID Date Data Source [id number] [facility] Value Range Interpretation Code Description Data Hazel rce(s) Supporting Document(s) History and Physical [facility] VXRKDr4dNyCNScXh99/MXEjjQQMbl0DzJVemFSu4DRgoXOKuR6HqXWJ5eL3oOXQ6XAjHLbJpRwRhLxWz [facility] ZnZyaBMjGhGCLmIrhFDgCoGIpmBaekgFIeOQ3PfQT2VNNiB92gGTElTKOgQ7SvCQJ4GIC+Wl5XOPJbsD AoTI0GHifD3W3rK7pRUv8+Vfc/GQQV1XPFPQK9i28lEMAfDAtzy+uq+JZgGF24ademR+3lL6wAs14vD1 sjANSD1G8KVoIhevm00/SMlcr/+8UyE72qJLsw//LP ROWA9El1/G3jJmbsg0JKu6UU0GPuUc2y/cS838GFU1o3XSrUlqvbZzg8yazuIq1LwUPAdj74k57zu3vl wzUUs8IZ29oTUZ7kE+qRw3iahb1UCy2+0SChgnyz4p8JNh/gL6Wjlh6kgqtrqAPc8AGiVEL8gDxkY0qE Bw7mLr1cB6tDg6tfwAcTz8Dxal6Iv15LPo2aEW/Laney [file] ID Date Data Source [id number] 03/21/2020 01:09:29 AM [facility] Service Cmnt XXX-Imp : NoneMicroorganism XXX Cult : POSITIVE for fecal occult blood by immunochromatography. This test only detects blood (hemoglobin) from the lower GI tract. To detect bleeding from the upper tract, order Fecal Occult Blood, Upper GI (Hemoccult-SENSA). Name Value Range Interpretation Code Description Data Hazel rce(s) Supporting Document(s) ID Date Data Source [id number] 03/21/2020 02:16:22 AM [facility] Name Value Range Interpretation Code Description Data Hazel rce(s) Supporting Document(s) Amphetamine [Presence] in Urine by Screen method Negative [facility] Benzodiazepines [Presence] in Urine by Screen method Negat [facility] Cannabinoids [Presence] in Urine by Screen method Negative [facility] Benzoylecgonine [Presence] in Urine by Screen [facility] Methadone [Presence] in Urine by Screen method Negative [facility] Opiates [Presence] in Urine by Screen method Negative [facility] Oxycodone [Presence] in Urine by Screen method Negative [facility] Fentanyl+Norfentanyl [Presence] in Urine by Screen method Negative [facility] Service comment [facility] Results below the indicated cutoff (ng/m L), are reported as"Negative." Note: for medical purposes only; not valid for legalor employment testing. ID Date Data Source [id number] 03/21/2020 01:54:02 AM [facility] Value Range Interpretation Code Description Data Hazel rce(s) Supporting Document(s) Hepatitis C virus Ab [Presence] in Serum or Plasma by Immuno assay Non Reactive [facility] Past or current Hepatitis C infection. S sonny forwarded to reference laboratory for quantitative HCV RNA testing. ID Date Data Source [id number] 03/25/2020 07:23:25 AM [facility] Value Range Interpretation Code Description Data Hazel rce(s) Supporting Document(s) ABO and Rh group [Type] in Blood [facility] Blood group antibody screen [Presence] in Serum or Plasma [facility] 03/24/2020,0000Performed at [place], [place] ID Date Data Source [id number] 03/21/2020 01:14:21 AM [facility] Value Range Interpretation Code Description Data Hazel rce(s) Supporting Document(s) Prothrombin time (PT) 14.6 s 12.5-14.9 [facility] INR in Platelet poor plasma by Coagulation assay 1.12 [facility] Routine intensity oral anticoagulation I NR is typically 2.0-3.0. Target INR must be clinically individualized. ID Date Data Source [id number] 03/21/2020 01:22:32 AM [facility] Value Range Interpretation Code Description Data Hazel rce(s) Supporting Document(s) Ethanol [Mass/volume] in Serum or Plasma 0.04 g/dl Negative [facility] ID Date Data Source [id number] 03/21/2020 01:22:[address] [facility] Name Value Range Interpretation Code Description Data Hazel rce(s) Supporting Document(s) Creatine kinase [Enzymatic activity/volume] in Serum or Plasma 551 U/L 20-200 H [facility] ID Date Data Source [id number] 03/21/2020 01:22:32 AM [facility] Name Value Range Interpretation Code Description Data Hazel rce(s) Supporting Document(s) Lipase [Enzymatic activity/volume] in Serum or Plasma 16 U/L 13-6 0 [facility] ID Date Data Source [id number] 03/21/2020 01:22:32 AM [facility] Name Value Range Interpretation Code Description Data Hazel rce(s) Supporting Document(s) Albumin [Mass/volume] in Serum or Plasma by Bromocresol green (BCG) dye binding method 2.9 g/dL 3.5-5.2 [facility] Bilirubin.total [Mass/volume] in Serum or Plasma 0.6 mg/dL <1.2 [facility] Calcium [Mass/volume] in Serum or Plasma 7.8 mg/dL 8.6-10.0 L [facility] Chloride [Moles/volume] in Serum or Plasma 104 mmol/L 98-107 [facility] Creatinine [Mass/volume] in Serum or Plasma 0.94 mg/dL 0.70-1.20 [facility] Glucose [Mass/volume] in Serum or Plasma 125 mg/dL 70-140 [facility] Alkaline phosphatase [Enzymatic activity/volume] in Serum or Plasma 89 U/L 40-129 [facility] Potassium [Moles/volume] in Serum or Plasma 4.0 mmol/L 3.4-5.1 [facility] Protein [Mass/volume] in Serum or Plasma 5.0 g/dL 6.4-8.3 L [facility] Sodium [Moles/volume] in Serum or Plasma 139 mmol/L 136-145 [facility] Aspartate aminotransferase [Enzymatic activity/volume] in Serum or Plasma 44 U/L <40 H [facility] Urea nitrogen [Mass/volume] in Serum or Plasma 17 mg/dL 6-20 [facility] Osmolality of Serum or Plasma by calculation 290 mosm/kg 275-300 [facility] Creatinine/Urea nitrogen [Mass Ratio] in Serum or Plasma 18 [facility] Bicarbonate [Moles/volume] in Serum 19 mmol/L 22-29 L [facility] Alanine aminotransferase [Enzymatic activity/volume] in Seru m or Plasma 22 U/L <41 [facility] Anion gap 3 in Serum or Plasma 16 mmol/L 8-15 H [facility] Glomerular filtration rate/1.73 sq M pre dicted among non-blacks [Volume Rate/Area] in Serum or Plasma by Creatinine-based formula (MDRD) >6 0 [facility] Glomerular filtration rate/1.73 sq M pre dicted among blacks [Volume Rate/Area] in Serum or Plasma by Creatinine-based formula (MDRD) >60 [facility] ID Date Data Source [id number] 03/21/2020 02:05:32 AM [facility] Name Value Range Interpretation Code Description Data Hazel rce(s) Supporting Document(s) Magnesium [Mass/volume] in Serum or Plasma 1.6 mg/dL 1.6-2.6 [facility] ID Date Data Source [id number] 03/21/2020 02:05:32 AM [facility] Value Range Interpretation Code Description Data Hazel rce(s) Supporting Document(s) Phosphate [Mass/volume] in Serum or Plasma 3.2 mg/dL 2.5-4.5 [facility] ID Date Data Source [id number] 03/21/2020 01:54:16 AM [facility] Value Range Interpretation Code Description Data Hazel rce(s) Supporting Document(s) Leukocytes [#/volume] in Blood by Automated count 4.8 10*3/uL 4-10 [facility] Erythrocytes [#/volume] in Blood by Automated count 2.54 10*6/uL 4.6- 6.1 L [facility] Hemoglobin [Mass/volume] in Blood 8.1 g/dL 13.5-18 L [facility] Hematocrit [Volume Fraction] of Blood by Automated count 24.3 % 4 1-53 L [facility] Erythrocyte mean corpuscular volume [Entitic volume] by Auto mated count 95.8 fL 80-96 [facility] Erythrocyte mean corpuscular hemoglobin [Entitic mass] by Automated count 31.7 pg 27-33 [facility] Erythrocyte mean corpuscular hemoglobin concentration [Mass/volume] by Automated count 33.1 g/dL 32.0-36.0 [facility] E[facility] distribution width [Ratio] by Automated count 16.2 % 11.5-14.5 H [facility] Platelets [#/volume] in Blood by Automated count 138 10*3/uL 150-400 L [facility] Differential cell count method - Blood [facility] Neutrophils/100 leukocytes in Blood by Automated count 62 % [facility] Lymphocytes/100 leukocytes in Blood by Automated count 28 % [facility] Monocytes/100 leukocytes in Blood by Automated count 6 % [facility] Eosinophils/100 leukocytes in Blood by Automated count 3 % [facility] Basophils/100 leukocytes in Blood by Automated count 1 % [facility] Neutrophils [#/volume] in Blood by Automated count 3.01 10*3/uL 1.8-7 .0 [facility] Lymphocytes [#/volume] in Blood by Automated count 1.32 10*3/uL 1.2-4 .0 [facility] Monocytes [#/volume] in Blood by Automated count 0.27 10*3/uL 0-0.8 [facility] Eosinophils [#/volume] in Blood by Automated count 0.14 10*3/uL 0-0.5 [facility] Basophils [#/volume] in Blood by Automated count 0.03 10*3/uL 0-0.2 [facility] Nucleated erythrocytes/100 leukocytes [Ratio] in Blood by Automated count 0 /100{WBCs} 0-0 [facility] ID Date Data Source [id number] 03/21/2020 01:37:06 AM [facility] Value Range Interpretation Code Description Data Hazel rce(s) Supporting Document(s) HIV 1+2 Ab+HIV1 p24 Ag [Presence] in Serum or Plasma by Immu noassay Non Reactive [facility] Negative for HIV-1 p24 antigenand HIV-1/ HIV-2 antibodies. Nolaboratory evidence of HIVinfection. ID Date Data Source [id number] 03/21/2020 01:20:12 AM [facility] Value Range Interpretation Code Description Data Hazel rce(s) Supporting Document(s) Lactate [Moles/volume] in Serum or Plasma 3.0 mmol/l 0.5-2.2 H [facility] ID Date Data Source [id number] 03/21/2020 02:41:56 AM EDT [facility] Name Value Range Interpretation Code Description Data Hazel rce(s) Supporting Document(s) Glucose [Mass/volume] in Capillary blood by Glucometer 126 mg/dL 70- 140 [facility] ID Date Data Source [id number] 02/24/2020 11:43:04 AM EDT [facility] Current Medications: BD INSULIN SYR ULTR [...] of maxillary and mandibular dentures, sent to [facility] to finalize.Temperature: 98.1 passed COVID questionaireAdditional PPE [...] rce(s) Supporting Document(s) ID Date Data Source [id number] 11/26/2019 01:47:09 PM EDT [facility] Current Medications: BD INSULIN SYR ULTR [...] pt (Breann =A2).NV: teeth set in wax, Sae Jesus DDS by luciana (11/26/2019 2:54 PM): Tooth Notes and Watches: Assessment & Plan Medications:BD INSULIN SYR ULTRAFINE II 31G X 5/16" 0.3 MLTRAMADOL HCL 50 MG ORAL TABLETATENOLOLGLUCAPHAGE Name Value Range Interpretation Code Description Data Hazel rce(s) Supporting Document(s) ID Date Data Source [id number] 11/05/2019 09:59:09 AM EST [facility] Current Medications: BD INSULIN SYR ULTR [...] Violeta medium body PVS. Sent to [facility] for wax-rim.Nv: Jaw relationshipSae Slaughter DDS by luciana (11/05/2019 10:40 AM): Tooth Notes and Watches: Assessment & Plan Medications:BD INSULIN SYR ULTRAFINE II 31G X 5/16" 0.3 MLTRAMADOL HCL 50 MG ORAL TABLETATENOLOLGLUCAPHAGE Name Value Range Interpretation Code Description Data Hazel rce(s) Supporting Document(s) ID Date Data Source [id number] 10/31/2019 09:26:48 AM [facility] Current Medications: BD INSULIN SYR ULTR AFINE [...] rce(s) Supporting Document(s) ID Date Data Source [id number] 10/25/2019 04:34:00 PM EST [facility] ([facility]) Name Value Range Interpretation Code Description Data Hazel rce(s) Supporting Document(s) Laboratory test finding (navigational concept) <pending> [facility] ([facility]) ID Date Data Source [id number] 10/24/2019 12:43:00 PM EST [facility] ([facility]) Name Value Range Interpretation Code Description Data Hazel rce(s) Supporting Document(s) Platelets [#/volume] in Blood by Automated count 328 10 150-450 [facility] ([facility]) ID Date Data Source [id number] 10/24/2019 12:43:00 PM EST [facility] ([facility]) Name Value Range Interpretation Code Description Data Hazel rce(s) Supporting Document(s) Inr 0.96 [facility] ([facility]) THERAPUTIC HUMAN INR VALUES INDICATIONS NORMAL RANGES PROPHYLAXIS/TREATMENT OF: VENOUS THROMBOSIS 2.0-3.0 PULMONARY EMBOLISM 2.0-3.0 PREVENTION OF SYSTEMIC EMBOLISM FROM: TISSUE HEART VALVES 2.0-3.0 ACUTE MYOCARDIAL INFARCTION 2.0-3.0 VALVULAR HEART DISEASE 2.0-3.0 ATRIAL FIBRILLATION 2.0-3.0 MECHANICAL VALVES(HIGH RISK) 2.5-3.5 RECURRENT MYOCARDIAL INFARCTION 2.5-3.5 Prothrombin Time 12.5 s 11.8-14.0 [facility] ([facility]) Partial Thromboplastin Time 24.9 s 25.0-38.4 [facility] ([facility]) ID Date Data Source TESTOSTERONE FREE & TOTAL 10/24/2019 12:00:00 AM EST eCW1 ([facility]) Name Value Range Interpretation Code Description Data Hazel rce(s) Supporting Document(s) 6.1 7.2-24.0 TESTOSTERONE FREE (DIRECT ) eCW1 ([facility]) 981.0 [id number] TESTOSTERONE TOTAL FOR T& D eCW1 ([facility]) ID Date Data Source PROLACTIN 10/24/2019 12:00:00 AM EST eCW1 ([facility]) Name Value Range Interpretation Code Description Data Hazel rce(s) Supporting Document(s) 7.2 2.1-17.7 PROLACTIN eCW1 ([facility]) ID Date Data Source FREE T4 & TSH PANEL 10/24/2019 12:00:00 AM EST eCW1 ([facility]) Name Value Range Interpretation Code Description Data Hazel rce(s) Supporting Document(s) 0.99 0.76-1.46 FREE T4 eCW1 ([facility]) 1.260 0.358-3.740 THYROID STIMULATING HORM ONE eCW1 ([facility]) ID Date Data Source FSH & LH EVAL 10/24/2019 12:00:00 AM EST eCW1 ([facility]) Name Value Range Interpretation Code Description Data Hazel rce(s) Supporting Document(s) 8.2 1.4-18.1 FOLLICLE STIMULATING HORM ONE eCW1 ([facility]) 14.3 1.5-9.3 LUTEINIZING HORMONE eCW1 ([facility]) ID Date Data Source [id number] 10/11/2019 02:13:16 PM [facility] Current Medications: BD INSULIN SYR ULTR AFINE [...] - CDT Code - Description[E] Missing - [place] [...] rce(s) Supporting Document(s) ID Date Data Source [id number] 10/03/2019 10:38:24 AM [facility] Vital SignsBlood Pressure: 154/92 Patient History Medical History:Qqtml-Zzglbzdjn-Wewfu SyndromeHBPArthritisDiabetesMental Health problemFamily History:Diabetes (Mother)Heart disease (Mother, Fa ther)Hypertension (Mother)Social/Personal History: Smoking Status: current every day smokerCurrent Medications: * ATENOLOL * GLUCAPHAGE Past Medical History:Njbzx-Rzqszmoud-Kxipo SyndromeHBPArthritisDiabetesMental Health problem Dental Chart: Procedures:Type - CDT Code - Description C - (D2222) No Charge Visit (Performed by Kelli Loera) Chart Notes:jadyn (Oct 03 2019 11:05AM): Patient presented for [employer] comp exam. Patient said that he had broken his upper complete denture. Patient was not informed by the desktop technician that we do not fabricate dentures at [facility]. Talked to Laurence, and Laurence decided to have patient have aa consult with Dr. Slaughter at [facility]. Patient was willing to travel. Patient had his complete denture done at [facility], but they are not taking his [...] 12:00:00 AM EST eCW1 ( [facility]) Name Value Range Interpretation Code Description Data Hazel rce(s) Supporting Document(s) Triglyceride [Mass/volume] in Serum or Plasma by calculation 198 <150 TRIGLYCERIDES LEVEL eCW1 ([facility]) Cholesterol [Moles/volume] in Serum or Plasma 142 <200 CHOLESTEROL LEVEL eCW1 ([facility]) 108 NON-HDL-C eCW1 ([facility]) Cholesterol in LDL [Mass/volume] in Serum or Plasma by calculation 68 <100 LDL CHOLESTEROL eCW1 ([facility]) Cholesterol in HDL [Moles/volume] in Serum or Plasma 34 >40 HDL CHOLESTEROL eCW1 ([facility]) 4.176 <5 CHOLESTEROL RISK RATIO eCW1 ([facility]) Procedure Social History Code Duration Value Status Description Data Source(s ) Smoking 10/05/2020 12:00:00 AM EST Current Smoker completed Curre nt Smoker eCW1 ([facility]) Smoking 10/05/2020 12:00:00 AM EST Current Smoker completed Curre nt Smoker eCW1 ([facility]) Smoking 10/05/2020 12:00:00 AM EST Current Smoker completed Curre nt Smoker eCW1 ([facility]) Smoking 09/07/2020 12:00:00 AM EST Current Smoker completed Curre nt Smoker eCW1 ([facility]) Smoking 09/07/2020 12:00:00 AM EST Current Smoker completed Curre nt Smoker eCW1 ([facility]) Smoking 09/07/2020 12:00:00 AM EST Current Smoker completed Curre nt Smoker eCW1 ([facility]) Alcohol intake 03/20/2020 12:00:00 AM EDT Current drinker of al cohol (finding) completed Current drinker of alcohol (finding) [facility] Tobacco use and exposure 03/20/2020 12:00:00 AM EDT Current user co mpleted Current user [facility] Cigarette pack-years 03/20/2020 12:00:00 AM EDT UNK completed [facility] Cigarettes smoked current (pack per day) - Reported 03/20/20 12:00:00 AM EDT UNK completed [facility] Smoking 03/20/2020 12:00:00 AM EDT Current every day smoker co mpleted Current every day smoker [facility] Cigarette pack-years 03/20/2020 12:00:00 AM EDT UNK completed [facility] Cigarettes smoked current (pack per day) - Reported 03/20/20 12:00:00 AM EDT UNK completed [facility] Smoking 03/20/2020 12:00:00 AM EDT Current every day smoker co mpleted Current every day smoker [facility] Smoking 12/09/2019 12:00:00 AM EDT Current Smoker completed Curre nt Smoker eCW1 ([facility]) Smoking 12/09/2019 12:00:00 AM EDT Current Smoker completed Curre nt Smoker eCW1 ([facility]) Smoking 12/09/2019 12:00:00 AM EDT Current Smoker completed Curre nt Smoker eCW1 ([facility]) Smoking 12/09/2019 12:00:00 AM EDT Current Smoker completed Curre nt Smoker eCW1 ([facility]) Smoking 12/09/2019 12:00:00 AM EDT Current Smoker completed Curre nt Smoker eCW1 ([facility]) Smoking 12/09/2019 12:00:00 AM EDT Current Smoker completed Curre nt Smoker eCW1 ([facility]) Vital Signs ID Date Data Source UNK Name Value Range Interpretation Code Description Data Source(s) Diastolic blood pressure 90 mm[Hg] 90 mm[Hg] eCW1 ([facility]) Systolic blood pressure 160 mm[Hg] 160 mm[Hg] e CW1 ([facility]) Body temperature 99.9 [degF] 99.9 [degF] eCW1 ( [facility]) Respiratory rate 18 /min 18 /min eCW1 ([facility]) Heart rate 111 /min 111 /min eCW1 ([facility]) Body mass index (BMI) [Ratio] 25.04 kg/m2 25.04 kg/m2 eCW1 ([facility]) Body height 69 [in_i] 69 [in_i] eCW1 ([facility]) Body weight 169.6 [lb_av] 169.6 [lb_av] eCW1 ([facility]) Diastolic blood pressure 90 mm[Hg] 90 mm[Hg] eCW1 ([facility]) Systolic blood pressure 144 mm[Hg] 144 mm[Hg] e CW1 ([facility]) Body temperature 97.2 [degF] 97.2 [degF] eCW1 ( [facility]) Respiratory rate 20 /min 20 /min eCW1 ([facility]) Heart rate 73 /min 73 /min eCW1 ([facility]) Body mass index (BMI) [Ratio] 26.14 kg/m2 26.14 kg/m2 eCW1 ([facility]) Body height 69 [in_i] 69 [in_i] eCW1 ([facility]) Body weight 177 [lb_av] 177 [lb_av] [facility] Diastolic blood pressure 80 mm[Hg] 80 mm[Hg] eCW1 ([facility]) Systolic blood pressure 144 mm[Hg] 144 mm[Hg] e CW1 ([facility]) Body temperature 96.1 [degF] 96.1 [degF] eCW1 ( [facility]) Respiratory rate 18 /min 18 /min eCW1 ([facility]) Heart rate 68 /min 68 /min eCW1 ([facility]) Body mass index (BMI) [Ratio] 26.31 kg/m2 26.31 kg/m2 eCW1 ([facility]) Body height 69 [in_us] 69 [in_us] eCW1 ([facility]) Body weight Measured 178.2 [lb_av] 178.2 [lb_av ] eCW1 ([facility]) Diastolic blood pressure 80 mm[Hg] 80 mm[Hg] eCW1 ([facility]) Systolic blood pressure 150 mm[Hg] 150 mm[Hg] e CW1 ([facility]) Body temperature 97.3 [degF] 97.3 [degF] eCW1 ( [facility]) Respiratory rate 20 /min 20 /min eCW1 ([facility]) Heart rate 68 /min 68 /min eCW1 ([facility]) Body mass index (BMI) [Ratio] 27.02 kg/m2 27.02 kg/m2 eCW1 ([facility]) Body height 69 [in_us] 69 [in_us] eCW1 ([facility]) Body weight Measured 183 [lb_av] 183 [lb_av] eC W1 ([facility]) Body weight 81.194 kg 81.194 kg [facility] Body mass index (BMI) [Ratio] 26.4 kg/m2 26.4 k g/m2 [facility] ([facility], ) Body weight 179.00 [lb_av] 179.00 [lb_av] MEDEN T ([facility], ) Body height 69 [in_i] 69 [in_i] [facility] [facility] ([facility], ) 5'9" Diastolic blood pressure 95 mm[Hg] 95 mm[Hg] MEDENT ([facility], ) Systolic blood pressure 152 mm[Hg] 152 mm[Hg] M EDENT ([facility], ) Diastolic blood pressure 88 mm[Hg] 88 mm[Hg] eCW1 ([facility]) Systolic blood pressure 150 mm[Hg] 150 mm[Hg] e CW1 ([facility]) Body temperature 97.6 [degF] 97.6 [degF] eCW1 ( [facility]) Respiratory rate 17 /min 17 /min eCW1 ([facility]) Heart rate 76 /min 76 /min eCW1 ([facility]) Body mass index (BMI) [Ratio] 25.78 kg/m2 25.78 kg/m2 eCW1 ([facility]) Body height 69 [in_us] 69 [in_us] eCW1 ([facility]) Body weight Measured 174.6 [lb_av] 174.6 [lb_av ] eCW1 ([facility]) Diastolic blood pressure 86 mm[Hg] 86 mm[Hg] eCW1 ([facility]) Systolic blood pressure 136 mm[Hg] 136 mm[Hg] e CW1 ([facility]) Body temperature 97.8 [degF] 97.8 [degF] eCW1 ( [facility]) Respiratory rate 18 /min 18 /min eCW1 ([facility]) Heart rate 74 /min 74 /min eCW1 ([facility]) Body mass index (BMI) [Ratio] 25.69 kg/m2 25.69 kg/m2 eCW1 ([facility]) Body height 69 [in_us] 69 [in_us] eCW1 ([facility]) Body weight Measured 174 [lb_av] 174 [lb_av] eC W1 ([facility]) ID Date Data Source [id number] 04/05/2020 03:09:[address] [facility] Name Value Range Interpretation Code Description Data Source(s) WEIGHT RECORDED 171.2 lb 171.2 lb [facility] ID Date Data Source [id number] 10/04/2019 10:01:00 AM EST [facility] Name Value Range Interpretation Code Description Data Source(s) Weight Measurement Method 1 1 [facility] Weight (Calculated Kilograms) 85.05 85.05 [facility] Weight 2928.0 2928.0 [facility] Temperature Source 7 7 [facility] Temperature 98.3 98.3 [facility] Respiratory Effort 1 1 [facility] Respiratory Rate 14 14 [facility] Pulse Assessment Method 4 4 [facility] Pulse Rate 63 63 [facility] Height (Calculated Centimeters) 175.26 175. 26 [facility] Height 69 69 [facility] Blood Pressure 170/92 170/92 [facility] Body Mass Index (BMI) 27.6 27.6 [facility] Weight Measurement Method 1 1 [facility] Weight (Calculated Kilograms) 85.05 85.05 [facility] Weight 2928.0 2928.0 [facility] Temperature Source 7 7 [facility] Temperature 98.3 98.3 [facility] Respiratory Effort 1 1 [facility] Respiratory Rate 14 14 [facility] Pulse Assessment Method 4 4 [facility] Pulse Rate 63 63 [facility] Height (Calculated Centimeters) 175.26 175. 26 [facility] Height 69 69 [facility] Blood Pressure 170/92 170/92 [facility] Body Mass Index (BMI) 27.6 27.6 [facility] Weight Measurement Method 1 1 [facility] Weight (Calculated Kilograms) 85.05 85.05 [facility] Weight 3000.0 3000.0 [facility] Temperature Source 7 7 [facility] Temperature 97.9 97.9 [facility] Respiratory Effort 1 1 [facility] Respiratory Rate 14 14 [facility] Pulse Assessment Method 4 4 [facility] Pulse Rate 62 62 [facility] Height (Calculated Centimeters) 175.26 175. 26 [facility] Height 69 69 [facility] Blood Pressure 144/87 144/87 [facility] Body Mass Index (BMI) 27.6 27.6 [facility] Weight Measurement Method 1 1 [facility] Weight (Calculated Kilograms) 85.05 85.05 [facility] Weight 3000.0 3000.0 [facility] Temperature Source 7 7 [facility] Temperature 98.4 98.4 [facility] Respiratory Effort 1 1 [facility] Respiratory Rate 16 16 [facility] Pulse Assessment Method 4 4 [facility] Pulse Rate 76 76 [facility] Height (Calculated Centimeters) 175.26 175. 26 [facility] Height 69 69 [facility] Blood Pressure 130/77 130/77 [facility] Body Mass Index (BMI) 27.6 27.6 [facility] Weight (Calculated Kilograms) 83.01 83.01 [facility] Height (Calculated Centimeters) 175.26 175. 26 [facility] Body Mass Index (BMI) 27.0 27.0 [facility] Patient Treatment Plan of Care Planned Activity Planned Date Details Description Data Source (s) 3 ML Insulin Glargine 100 UNT/ML Pen Injector [Lantus] 10/06/2020 12:00:00 AM EST eCW1 ([facility]) 3 ML Insulin Glargine 100 UNT/ML Pen Injector [Lantus] 10/06/2020 12:00:00 AM EST eCW1 ([facility]) 3 ML Insulin Glargine 100 UNT/ML Pen Injector [Lantus] 10/06/2020 12:00:00 AM EST eCW1 ([facility]) Tamsulosin hydrochloride 0.4 MG Oral Capsule 10/05/2020 12:00:00 AM EST eCW1 ([facility]) Sulfamethoxazole 800 MG / Trimethoprim 160 MG Oral Tab let [Bactrim] 10/05/2020 12:00:00 AM EST eCW1 ([facility]) Thiamine HCl 100 MG 10/05/2020 12:00:00 AM EST eCW1 ([facility]) Tamsulosin hydrochloride 0.4 MG Oral Capsule 10/05/2020 12:00:00 AM EST eCW1 ([facility]) Sulfamethoxazole 800 MG / Trimethoprim 160 MG Oral Tab let [Bactrim] 10/05/2020 12:00:00 AM EST eCW1 ([facility]) Thiamine HCl 100 MG 10/05/2020 12:00:00 AM EST eCW1 ([facility]) Sulfamethoxazole 800 MG / Trimethoprim 160 MG Oral Tab let [Bactrim] 10/05/2020 12:00:00 AM EST eCW1 ([facility]) Tamsulosin hydrochloride 0.4 MG Oral Capsule 10/05/2020 12:00:00 AM EST eCW1 ([facility]) Thiamine HCl 100 MG 10/05/2020 12:00:00 AM EST eCW1 ([facility]) ferrous sulfate 325 MG Oral Tablet 09/14/2020 12:00:00 AM EST eCW1 ([facility]) ferrous sulfate 325 MG Oral Tablet 09/14/2020 12:00:00 AM EST eCW1 ([facility]) ferrous sulfate 325 MG Oral Tablet 09/14/2020 12:00:00 AM EST eCW1 ([facility]) ferrous sulfate 325 MG Oral Tablet 09/14/2020 12:00:00 AM EST eCW1 ([facility]) ferrous sulfate 325 MG Oral Tablet 09/14/2020 12:00:00 AM EST eCW1 ([facility]) FreeStyle Lancets - 09/07/2020 12:00:00 AM EST eCW1 ([facility]) FreeStyle Lite - 09/07/2020 12:00:00 AM EST eCW1 ([facility]) Sucralfate 100 MG/ML Oral Suspension 09/07/2020 12:00:00 AM EST eCW1 ([facility]) Blood Glucose Test Strip - 09/07/2020 12:00:00 AM EST eCW1 ([facility]) Omeprazole 40 MG Delayed Release Oral Capsule 09/07/2020 12:00:00 A M EST eCW1 ([facility]) Omeprazole 40 MG Delayed Release Oral Capsule 09/07/2020 12:00:00 A M EST eCW1 ([facility]) Omeprazole 40 MG Delayed Release Oral Capsule 09/07/2020 12:00:00 A M EST eCW1 ([facility]) Sucralfate 100 MG/ML Oral Suspension 09/07/2020 12:00:00 AM EST eCW1 ([facility]) FreeStyle Lite - 09/07/2020 12:00:00 AM EST eCW1 ([facility]) Omeprazole 40 MG Delayed Release Oral Capsule 09/07/2020 12:00:00 A M EST eCW1 ([facility]) FreeStyle Lancets - 09/07/2020 12:00:00 AM EST eCW1 ([facility]) Blood Glucose Test Strip - 09/07/2020 12:00:00 AM EST eCW1 ([facility]) Sucralfate 100 MG/ML Oral Suspension 09/07/2020 12:00:00 AM EST eCW1 ([facility]) FreeStyle Lite - 09/07/2020 12:00:00 AM EST eCW1 ([facility]) Omeprazole 40 MG Delayed Release Oral Capsule 09/07/2020 12:00:00 A M EST eCW1 ([facility]) FreeStyle Lancets - 09/07/2020 12:00:00 AM EST eCW1 ([facility]) Blood Glucose Test Strip - 09/07/2020 12:00:00 AM EST eCW1 ([facility]) Omeprazole 40 MG Delayed Release Oral Capsule 09/07/2020 12:00:00 A M EST eCW1 ([facility]) pantoprazole 40 MG Delayed Release Oral Tablet 05/13/2020 12:00:00 AM [facility] Sucralfate 100 MG/ML Oral Suspension 05/13/2020 12:00:00 AM [facility] atorvastatin 20 MG Oral Tablet 03/28/2020 12:00:00 AM [facility] Amlodipine 10 MG Oral Tablet 03/28/2020 12:00:00 AM [facility] Lisinopril 40 MG Oral Tablet 03/28/2020 12:00:00 AM [facility] Tab-A-Martin/Beta Carotene Oral Tablet 03/28/2020 12:00:00 AM [facility] 24 HR Nicotine 0.875 MG/HR Transdermal Patch 03/28/2020 12:00:00 AM [facility] Thiamine 100 MG Oral Tablet 03/28/2020 12:00:00 AM [facility] Folic Acid 1 MG Oral Tablet 03/28/2020 12:00:00 AM [facility] Hydralazine Hydrochloride 20 MG/ML Injectable Solution 03/27/2020 09:00:00 AM [facility] ospital carvedilol 25 MG Oral Tablet 03/27/2020 12:00:00 AM [facility] pantoprazole 40 MG Delayed Release Oral Tablet 03/27/2020 12:00:00 AM [facility] Naloxone HCl 4 MG/0.1ML Nasal Liquid (Narcan) 03/27/2020 12:00:00 A M [facility] Sucralfate 1000 MG Oral Tablet 03/27/2020 12:00:00 AM [facility] dextrose 50 % IV solution 25 mL 03/22/2020 03:36:45 PM [facility] Glucagon 1 MG Injection 03/22/2020 03:36:45 PM [facility] Glucose 0.417 MG/MG Oral Gel 03/22/2020 03:36:45 PM [facility] Tamsulosin hydrochloride 0.4 MG Oral Capsule [Flomax] 11/14/2019 12:00:00 AM EST eCW1 ([facility]) sildenafil 25 MG Oral Tablet [Viagra] 11/13/2019 12:00:00 AM EST eCW1 ([facility]) sildenafil 25 MG Oral Tablet [Viagra] 11/13/2019 12:00:00 AM EST eCW1 ([facility]) Amlodipine 5 MG Oral Tablet 10/24/2019 12:00:00 AM EST eCW1 ([facility]) Cephalexin 250 MG Oral Capsule [Keflex] 10/24/2019 12:00:00 AM EST eCW1 ([facility]) Fluoxetine 60 MG Oral Tablet 09/20/2019 12:00:00 AM EST eCW1 ([facility]) One touch ultra blue _ 09/20/2019 12:00:00 AM EST eCW1 ([facility]) May Have - 09/20/2019 12:00:00 AM EST e CW1 ([facility]) Nicotine 2 MG Oral Lozenge 09/20/2019 12:00:00 AM EST eCW1 ([facility]) Ibuprofen 600 MG Oral Tablet 12/09/2015 12:00:00 AM [facility] Mirtazapine 15 MG Oral Tablet 11/19/2015 12:00:00 AM [facility] terbinafine 250 MG Oral Tablet 11/18/2015 12:00:00 AM [facility] atorvastatin 20 MG Oral Tablet 10/06/2015 12:00:00 AM [facility] tramadol hydrochloride 50 MG Oral Tablet [facility] Esomeprazole 40 MG Delayed Release Oral Capsule [facility] Atenolol 50 MG Oral Tablet [facility] Lisinopril 20 MG Oral Tablet [facility] Metformin hydrochloride 1000 MG Oral Tablet [facility] carvedilol 25 MG Oral Tablet [facility] Omeprazole 20 MG Delayed Release Oral Capsule [facility]
[2020-10-24 23:06] LABS: RSV AMPLIFICATION NEGATIVE (NEGATIVE)
[2020-10-24] MEDS ORDERED: THIAMINE 200MG/2ML VIAL (J3411 PER 100MG) IM ONE (23:30)
--- NOTE | 2020-10-24 23:51 | REPVR ---
PROCEDURE INFORMATION: Exam: CT Head Without Contrast Exam date and time: 10/24/2020 11:37 PM Age: 55 years old Clinical indication: Injury or trauma; Fall; Blunt trauma (contusions or hematomas); Altered mental status/memory loss; Confusion or disorientation; Additional info: Confusion/brain fog, fell 2 days ago TECHNIQUE: Imaging protocol: Computed tomography of the head without contrast. Radiation optimization: All CT scans at this facility use at least one of these dose optimization techniques: automated exposure control; mA and/or kV adjustment per patient size (includes targeted exams where dose is matched to clinical indication); or iterative reconstruction. COMPARISON: CT Head without contrast 09/19/2020 4:12 AM FINDINGS: Brain: There is no CT evidence for an acute large vessel territorial infarct. No acute intracranial hemorrhage is seen. No mass effect, midline shift, or herniation is noted. There are chronic infarcts involving the left postcentral gyrus, head of the left caudate nucleus, bilateral thalami, which are unchanged compared to the prior CT head on 09/19/2020. There are non-specific foci of low attenuation in the periventricular and subcortical white matter, which are likely the sequela of chronic small vessel ischemic injury and are similar in appearance compared to the prior CT head on 09/19/2020. Cerebral ventricles: The ventricles are moderately dilated in proportion to the sulci, which is compatible with moderate generalized cerebral volume loss that is similar in appearance compared to the prior CT head on 09/19/2020. Bones/joints: No acute fracture. No suspicious osteolytic or osteoblastic lesion. Paranasal sinuses: The imaged portions of the sinuses are well-aerated. No air-fluid levels are noted in the sinuses. Mastoid air cells: Clear. Vasculature: There are atherosclerotic calcifications of the intracranial portion of the vertebral arteries and internal carotid arteries. Soft tissues: Unremarkable. IMPRESSION: 1. No acute intracranial abnormality. 2. Chronic infarcts involving the left postcentral gyrus, head of the left caudate nucleus, bilateral thalami, which are unchanged compared to the prior CT head on 09/19/2020. 3. Moderate cerebral atrophy and chronic microangiopathic changes, which are stable compared to the prior CT head on 09/19/2020. Electronically signed by: Josesito Mackay On 10/24/2020 23:50:47 PM
[2020-10-25] VITALS (7 sets, daily range): BP systolic 127–153; BP diastolic 65–78
--- NOTE | 2020-10-25 00:08 | REPVR ---
PROCEDURE INFORMATION: Exam: US Retroperitoneal Limited, Kidneys Exam date and time: 10/24/2020 11:58 PM Age: 55 years old Clinical indication: Abnormal findings; Abnormal lab test; Abnormal kidney function lab tests; Additional info: Acute kidney injury TECHNIQUE: Imaging protocol: Real-time ultrasound of the retroperitoneum with image documentation. Examination was focused on the kidneys. COMPARISON: 1. RENAL US 09/23/2020 4:[address] ABD/PEL W/IV ORAL CONTRAS 10/21/2020 4:25:57 PM FINDINGS: Right kidney: The right kidney is normal in appearance and measures 12.1 cm in length. There is no renal cortical thinning. The renal cortical echogenicity is within normal limits. No renal lesion is seen. There is no hydronephrosis. No obvious stones are seen in the renal collecting system. Left kidney: The left kidney is normal in appearance and measures 11.7 cm in length. There is no renal cortical thinning. The renal cortical echogenicity is within normal limits. No renal lesion is seen. There is no hydronephrosis. No obvious stones are seen in the renal collecting system. Bladder: Bilateral ureteral jets are visualized in the urinary bladder. No stones or masses are seen in the urinary bladder. IMPRESSION: Normal ultrasound of the kidneys and urinary bladder. No hydronephrosis. Electronically signed by: Josesito Mackay On 10/25/2020 00:07:51 AM
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
[2020-10-25] MEDS ORDERED: EMLA CREAM 5GM TUBE (LIDOCAINE/PRILOCAINE) TOP PRN (00:45)
[2020-10-25] MEDS ORDERED: TAMS1CAP17 PO (00:47)
[2020-10-25] MEDS ORDERED: MAGN400T2 PO (00:47)
[2020-10-25] MEDS ORDERED: AMLO1TAB25 PO (00:47)
[2020-10-25] MEDS ORDERED: CIPR500T39 PO (00:47)
[2020-10-25] MEDS ORDERED: SUCR1ORA2 PO (00:47)
[2020-10-25] MEDS ORDERED: METR-265 PO (00:47)
[2020-10-25] MEDS: FUROSEMIDE 40MG/4ML VIAL (J1940) IV SCH ×2 (00:48→12:46)
--- OUTSIDE RECORDS SUMMARY | 2020-10-25 00:54 | CCD ---
Author Author [facility] Organization [facility] Address Unknown Phone Unavailable Care Team Providers Care Home Insurance Agent Name Role Phone KAREN RUANO MD Unavailable [...] M Aracelis MD Unavailable Unavailable White, M Araeclis MD Unavailable Unavailable White, M Aracelis MD [...] is protected by Article 27-F of the [facility] Public Health law. If you continue you may have access to information: Regarding HIV / AIDS; Provided by facilities licensed or operated by the [facility] Office of Mental Health; or Provided by the [facility] Office for People With Developmental Disabilities. If such information is present, then the following [facility] mandated warning applies: This information has [...] law may result in a fine or nursing home sentence or both. A general authorization for the release of medical or other information is NOT sufficient authorization for further disc losure. Family History Family Member Name Family Member Gender Family Member Status Date o f Status Description Data Source(s) Unknown [facility] Encounters Encounter Providers Location Date Indications Data Source(s ) Outpatient Attender: OSMANY BIANEZ . 11/11/2020 12:00: [address] [facility] Outpatient Attender: OSMANY IBANEZ . 11/11/2020 12:00: [address] [facility] Unknown [address] [facility] [address] 10/06/2020 12:00:00 AM EST eCW1 ([facility]) Unknown [address] [facility] [address] 10/05/2020 12:00:00 AM EST eCW1 ([facility]) (TCM) Transition of Care Visit [address] [place] [address] 10/05/2020 12:00:00 AM EST eCW1 ([facility]) Unknown [address] [facility] [address] 09/29/2020 12:00:00 AM EST eCW1 ([facility]) Outpatient [address] [facility] [place] [address] 09/07/2020 12:00:00 AM EST eCW1 ([facility]) Unknown [address] [facility] [address] 09/07/2020 12:00:00 AM EST eCW1 ([facility]) Unknown [address] [facility] [address] 08/14/2020 12:00:00 AM EST eCW1 ([facility]) Outpatient Attender: OSMANY IBANEZ .Referrer: Eduin Haq [id number] 08/05/2020 12:00:00 AM EST - 08/05/2020 02:22:[address] [facility] Outpatient Attender: OSMANY Haq [id number] 12:00:00 AM EST - 07/29/2020 03:37:01 PM EST Gastrojejunal ulcer, unspecified as acut e or chronic, without hemorrhage or perforation [facility] Gastrojejunal ulcer, unspecified as acut e or chronic, without hemorrhage or perforation Unknown [address] [facility] [address] 07/21/2020 12:00:00 AM EST [facility] Outpatient Attender: Anne Giordano MIROSLAVA WATSON 07/13/2020 04:06:00 P M [facility] Outpatient Attender: Anne Giordano CINTHYARoselia BONI 07/13/2020 02:42:00 P M [facility] Unknown [address] [facility] [address] 07/07/2020 12:00:00 AM EDT [facility]CW1 [facility]) Outpatient Attender: Anne Giordano MIROSLAVA PLATA 06/05/2020 08:01:22 P M [facility] Outpatient Attender: OSMANY Haq [id number] 05/13/2020 12:00:00 AM EDT Gastrojejunal ulcer, unspecified as acute or chronic, without hemorrhage or perforation [facility] Gastrojejunal ulcer, unspecified as acut e or chronic, without hemorrhage or perforation Outpatient Attender: Anne Giordano MIROSLAVA PLATA 05/01/2020 04:22:01 P M [facility] Outpatient Attender: Anne Giordano MIROSLAVA PLATA 04/30/2020 01:41:01 P M [facility] Outpatient Attender: Anne Giordano MIROSLAVA PLATA 04/29/2020 11:52:01 A M [facility] Outpatient Attender: OSMANY Haq 04/29/2020 12:00: 00 AM [facility] Outpatient Attender: Anne Giordano MIROSLAVA WATSON 04/24/2020 08:01:21 P M [facility] Unknown [address] [facility] [address] 04/01/2020 12:00:00 AM EDT eCW1 ([facility]) Unknown [address] [facility] [address] 04/01/2020 12:00:00 AM EDT [facility]CW1 [facility] Outpatient Attender: OSMANY Haq [id number] 03/27/2020 08:40:39 AM [facility] Outpatient Attender: Maryann Mckeon MDReferrer: Maryann chow MD 03/25/2020 12:00:00 AM EDT [facility] Outpatient Attender: Maryann Mckeon MDReferrer: Maryann chow MD 03/25/2020 12:00:00 AM EDT [facility] Inpatient Attender: Maryann Mckeon MDAt tender: Felipe Dale MDAttender: Evaristo Stacy MDAttender: Aracelis Wright MDAdmitter: RASHAD ANDERSON MDReferrer: Aracelis Wright MD A-A 03/20/2020 12:00:00 AM EDT - 03/27/2020 03:17:00 PM EDT [facility] Patient discharged. Outpatient Attender: Anne WATSON 03/12/2020 02:04:00 P M EDT [facility] Outpatient Attender: Anne PLATA 03/02/2020 08:47:00 A M EDT [facility] Outpatient Attender: Anne PLATA 02/24/2020 12:22:02 P M EDT [address], [facility] [address] 02/13/2020 12:00:00 AM EDT [facility] [address] [place] [address] [place] [address] 02/12/2020 12:00:00 AM EDT eCW1 ([facility]) [address] [place] [address] 01/22/2020 12:00:00 AM EDT eCW1 ([facility]) Outpatient Attender: Anne PLATA 12/24/2019 09:56:00 [facility] [address] [place] [address] 12/09/2019 12:00:00 AM EDT eCW1 ([facility]) [address], [place] [address] 12/06/2019 12:00:00 AM EDT [facility]CW1 [facility] Outpatient Attender: Anne Giuliana WATSON 11/26/2019 02:55:00 P M [facility] Outpatient Attender: Anne Karmenamna MIROSLAVA PLATAC 11/26/2019 01:16:01 P M [facility] Outpatient Attender: Anne Karmenamna MIROSLAVA PLATAC 11/20/2019 11:01:01 A M [facility] Outpatient Attender: Anne Karmenamna MIROSLAVA PLATAC 11/20/2019 10:36:00 A M [facility] Outpatient Attender: Anne Karmenamna MIROSLAVA PLATAC 11/20/2019 10:36:00 A M [address], [facility] [address] 11/14/2019 12:00:00 AM EST eCW1 ([facility]) [address] [place] [address] 11/13/2019 12:00:00 AM EST eCW1 ([facility]) Outpatient Referrer: TAYLOR FERGUSON 11/12/2019 03:18:00 PM EST [address] [address] 11/12/2019 12:00:00 AM EST eCW1 ([facility]) Outpatient Attender: Anne WATSON 11/05/2019 10:42:01 A M [facility] Outpatient Attender: Anne Giuliana PLATAC 11/05/2019 10:03:01 A M [facility] Outpatient Attender: Anne Karmenamna MIROSLAVA PLATAC 11/01/2019 08:18:[address] [address] 11/01/2019 12:00:00 AM EST eCW1 [facility]) Outpatient Attender: Anne WATSON 10/31/2019 10:13:00 A M [facility] Outpatient Attender: Anne WATSON 10/25/2019 08:02:20 P [facility] [address] [facility] [address] 10/24/2019 12:00:00 AM EST eCW1 ([facility]) Outpatient Attender: TAYLOR FERGUSON Physical Therapy 10/12 01:45:00 PM EST MEDENT ([facility]) [address] [address] 10/15/2019 12:00:00 AM EST eCW1 ([facility]) Outpatient Attender: Anne WATSON 10/14/2019 05:11:00 P [facility] Outpatient Attender: Anne PLATA 10/14/2019 05:10:[address] [address] 10/14/2019 12:00:00 AM EST eCW1 ([facility]) Outpatient Attender: Anne WATSON 10/11/2019 02:53:01 P [facility] Outpatient Attender: Anne PLATAC 10/08/2019 10:45:[address] [address] 10/07/2019 12:00:00 AM EST eCW1 ([facility]) Outpatient Attender: Anne WATSON 10/04/2019 10:34:01 A [facility] Outpatient Attender: Anne WATSON 10/04/2019 10:28:00 A [facility] Outpatient Attender: Anne WATSON 10/04/2019 10:27:00 A [facility] Outpatient Attender: Anne WATSON 10/04/2019 09:35:16 A [facility] Outpatient Attender: Anne WATSON 10/04/2019 09:29:[address] [place] [address] 10/04/2019 12:00:00 AM EST eCW1 ([facility]) Outpatient [facility] 10/02/2019 09:01:13 PM EST [facility] Outpatient [facility] 10/02/2019 12:17:01 PM EST [address] [address] 10/02/2019 12:00:00 AM EST eCW1 ([facility]) [address] [address] 09/20/2019 12:00:00 AM EST eCW1 ([facility]) [address] [address] 09/18/2019 12:00:00 AM EST eCW1 ([facility]) [address] [address] 09/16/2019 12:00:00 AM EST eCW1 ([facility]) Inpatient Attender: Karen Vcikers nder: KAREN RUANO MDAdmitter: KAREN RUANO MD CPSCAORT-CHEPPDREH 07/01/2019 11:27:00 AM EDT - 07/29/2019 12:14:00 PM EST PSYCHOACTIVE SUBSTANCE DEPENDENCE [facility] PSYCHOACTIVE SUBSTANCE DEPENDENCE Patient discharged. Medications Medication Brand Name Start Date Product Form Dose Route Admi nistrative Instructions Pharmacy Instructions Status Indications Reaction Description Data Source(s) 3 ML Insulin Glargine 100 UNT/ML Pen Inj shruthi [Lantus] Lantus SoloStar 100 UNIT/ML Lantus SoloStar 100 UNIT/ML 10/06/2020 12:00:00 AM EST active Lantus SoloStar 100 UNIT/ML eCW1 ([facility]) 3 ML Insulin Glargine 100 UNT/ML Pen Inj shruthi [Lantus] Lantus SoloStar 100 UNIT/ML Lantus SoloStar 100 UNIT/ML 10/06/2020 12:00:00 AM EST active Lantus SoloStar 100 UNIT/ML eCW1 ([facility]) 3 ML Insulin Glargine 100 UNT/ML Pen Inj shruthi [Lantus] Lantus SoloStar 100 UNIT/ML Lantus SoloStar 100 UNIT/ML 10/06/2020 12:00:00 AM EST active Lantus SoloStar 100 UNIT/ML eCW1 ([facility]) Tamsulosin hydrochloride 0.4 MG Oral Capsule Tamsulosi n HCl 0.4 MG Tamsulosin HCl 0.4 MG 10/05/2020 12:00:00 AM EST 1.0 {capsule} active Tamsulosin HCl 0.4 MG eCW1 ([facility]) Thiamine HCl 100 MG Thiamine HCl 100 MG 10/05/2020 12:00:00 AM EST 1.0 {tablet} active Thiamine HCl 100 MG eCW 1 ([facility]) Sulfamethoxazole 800 MG / Trimethoprim 1 60 MG Oral Tablet [Bactrim] Bactrim DS 800-160 MG Bactrim DS 800-160 MG 10/05/2020 12:00:00 AM EST 1.0 {table t} active Bactrim DS 800-160 MG eCW1 ( [facility]) Sulfamethoxazole 800 MG / Trimethoprim 1 60 MG Oral Tablet [Bactrim] Bactrim DS 800-160 MG Bactrim DS 800-160 MG 10/05/2020 12:00:00 AM EST 1.0 {table t} active Bactrim DS 800-160 MG eCW1 ( [facility]) Sulfamethoxazole 800 MG / Trimethoprim 1 60 MG Oral Tablet [Bactrim] Bactrim DS 800-160 MG Bactrim DS 800-160 MG 10/05/2020 12:00:00 AM EST 1.0 {table t} active Bactrim DS 800-160 MG eCW1 ( [facility]) Tamsulosin hydrochloride 0.4 MG Oral Capsule Tamsulosi n HCl 0.4 MG Tamsulosin HCl 0.4 MG 10/05/2020 12:00:00 AM EST 1.0 {capsule} active Tamsulosin HCl 0.4 MG eCW1 ([facility]) Tamsulosin hydrochloride 0.4 MG Oral Capsule Tamsulosi n HCl 0.4 MG Tamsulosin HCl 0.4 MG 10/05/2020 12:00:00 AM EST 1.0 {capsule} active Tamsulosin HCl 0.4 MG eCW1 ([facility]) Thiamine HCl 100 MG Thiamine HCl 100 MG 10/05/2020 12:00:00 AM EST 1.0 {tablet} active Thiamine HCl 100 MG eCW 1 ([facility]) Thiamine HCl 100 MG Thiamine HCl 100 MG 10/05/2020 12:00:00 AM EST 1.0 {tablet} active Thiamine HCl 100 MG eCW 1 ([facility]) ferrous sulfate 325 MG Oral Tablet Ferrous Sulfate 325 (65 Fe) MG Ferrous Sulfate 325 (65 Fe) MG 09/14/2020 12:00:00 AM EST 2.0 {tablets} active Ferrous Sulfate 325 (65 Fe) MG eCW1 ([facility]) ferrous sulfate 325 MG Oral Tablet Ferrous Sulfate 325 (65 Fe) MG Ferrous Sulfate 325 (65 Fe) MG 09/14/2020 12:00:00 AM EST 2.0 {tablets} active Ferrous Sulfate 325 (65 Fe) MG eCW1 ([facility]) ferrous sulfate 325 MG Oral Tablet Ferrous Sulfate 325 (65 Fe) MG Ferrous Sulfate 325 (65 Fe) MG 09/14/2020 12:00:00 AM EST 2.0 {tablets} active Ferrous Sulfate 325 (65 Fe) MG eCW1 ([facility]) ferrous sulfate 325 MG Oral Tablet Ferrous Sulfate 325 (65 Fe) MG Ferrous Sulfate 325 (65 Fe) MG 09/14/2020 12:00:00 AM EST 2.0 {tablets} active Ferrous Sulfate 325 (65 Fe) MG eCW1 ([facility]) ferrous sulfate 325 MG Oral Tablet Ferrous Sulfate 325 (65 Fe) MG Ferrous Sulfate 325 (65 Fe) MG 09/14/2020 12:00:00 AM EST 2.0 {tablets} active Ferrous Sulfate 325 (65 Fe) MG eCW1 ([facility]) FreeStyle Lite - FreeStyle Lite - 09/07/2020 12:00:00 AM EST active FreeStyle Lite - eCW1 ([facility]) FreeStyle Lite - FreeStyle Lite - 09/07/2020 12:00:00 AM EST active FreeStyle Lite - eCW1 ([facility]) FreeStyle Lite - FreeStyle Lite - 09/07/2020 12:00:00 AM EST active FreeStyle Lite - eCW1 ([facility]) FreeStyle Lancets - FreeStyle Lancets - 09/07/2020 12:00:00 AM EST active FreeStyle Lancets - eCW1 ([facility]) Sucralfate 100 MG/ML Oral Suspension Sucralfate 1 GM/10ML Lawler cralfate 1 GM/10ML 09/07/2020 12:00:00 AM EST 10.0 {ml_on_an_empty_stomach} active Sucralfate 1 GM/10ML eCW1 ([facility]) FreeStyle Lite - FreeStyle Lite - 09/07/2020 12:00:00 AM EST active FreeStyle Lite - eCW1 ([facility]) Omeprazole 40 MG Delayed Release Oral Capsule Omeprazole 40 MG 09/07/2020 12:00:00 AM EST active Omeprazo le 40 MG eCW1 ([facility]) Omeprazole 40 MG Delayed Release Oral Capsule Omeprazole 40 MG 09/07/2020 12:00:00 AM EST active Omeprazo le 40 MG eCW1 ([facility]) Sucralfate 100 MG/ML Oral Suspension Sucralfate 1 GM/10ML Lawler cralfate 1 GM/10ML 09/07/2020 12:00:00 AM EST 10.0 {ml_on_an_empty_stomach} active Sucralfate 1 GM/10ML eCW1 ([facility]) Blood Glucose Test Strip - UNK 09/07/2020 12:00:00 AM EST active Blood Glucose Test Strip - eCW1 ([facility]) FreeStyle Lancets - FreeStyle Lancets - 09/07/2020 12:00:00 AM EST active FreeStyle Lancets - eCW1 ([facility]) Omeprazole 40 MG Delayed Release Oral Capsule Omeprazole 40 MG 09/07/2020 12:00:00 AM EST active Omeprazo le 40 MG eCW1 ([facility]) FreeStyle Lancets - FreeStyle Lancets - 09/07/2020 12:00:00 AM EST active FreeStyle Lancets - eCW1 ([facility]) Blood Glucose Test Strip - UNK 09/07/2020 12:00:00 AM EST active Blood Glucose Test Strip - eCW1 ([facility]) Blood Glucose Test Strip - UNK 09/07/2020 12:00:00 AM EST active Blood Glucose Test Strip - eCW1 ([facility]) FreeStyle Lite - FreeStyle Lite - 09/07/2020 12:00:00 AM EST active FreeStyle Lite - eCW1 ([facility]) Blood Glucose Test Strip - UNK 09/07/2020 12:00:00 AM EST active Blood Glucose Test Strip - eCW1 ([facility]) Blood Glucose Test Strip - UNK 09/07/2020 12:00:00 AM EST active Blood Glucose Test Strip - eCW1 ([facility]) Omeprazole 40 MG Delayed Release Oral Capsule Omeprazole 40 MG 09/07/2020 12:00:00 AM EST active Omeprazo le 40 MG eCW1 ([facility]) Sucralfate 100 MG/ML Oral Suspension Sucralfate 1 GM/10ML Lawler cralfate 1 GM/10ML 09/07/2020 12:00:00 AM EST 10.0 {ml_on_an_empty_stomach} active Sucralfate 1 GM/10ML eCW1 ([facility]) Omeprazole 40 MG Delayed Release Oral Capsule Omeprazole 40 MG 09/07/2020 12:00:00 AM EST active Omeprazo le 40 MG eCW1 ([facility]) FreeStyle Lancets - FreeStyle Lancets - 09/07/2020 12:00:00 AM EST active FreeStyle Lancets - eCW1 ([facility]) FreeStyle Lite - FreeStyle Lite - 09/07/2020 12:00:00 AM EST active FreeStyle Lite - eCW1 ([facility]) FreeStyle Lancets - FreeStyle Lancets - 09/07/2020 12:00:00 AM EST active FreeStyle Lancets - eCW1 ([facility]) Omeprazole 40 MG Delayed Release Oral Capsule Omeprazole 40 MG 09/07/2020 12:00:00 AM EST active Omeprazo le 40 MG eCW1 ([facility]) Blood Glucose Test Strip - UNK 09/07/2020 12:00:00 AM EST active Blood Glucose Test Strip - eCW1 ([facility]) FreeStyle Lancets - FreeStyle Lancets - 09/07/2020 12:00:00 AM EST active FreeStyle Lancets - eCW1 ([facility]) Sucralfate 100 MG/ML Oral Suspension Suc ralfate 1 GM/10ML Oral Suspension (Carafate) Sucralfate 1 GM/10ML Oral Suspension (Carafate) 2019 12:00:00 AM EDT 1 g Oral active Marginal ulcer T rafa 10 mLs by mouth Four times daily [facility] Marginal ulcer pantoprazole 40 MG Delayed Release Oral Tablet Pantoprazole Sodium 40 MG Oral Tablet Delayed Release (PROTONIX) Pantoprazole Sodium 40 MG Oral Tablet De layed Release (PROTONIX) 05/13/2020 12:00:00 AM EDT 40 mg Oral active Marginal ulcer Take 1 tablet by mouth Two Times Daily [facility] Marginal ulcer Folic Acid 1 MG Oral Tablet Folic Acid 1 MG Oral Table t (FOLVITE) Folic Acid 1 MG Oral Tablet (FOLVITE) 03/28/2020 12:00:00 AM EDT 1 mg Oral active Take 1 tablet by mouth daily [facility] Amlodipine 10 MG Oral Tablet amLODIPine Besylate 10 MG Oral Tablet (NORVASC) amLODIPine Besylate 10 MG Oral Tablet (NORVASC) 03/28/2020 12:00:00 AM EDT 10 mg Oral active Take 1 tablet by mouth d [facility] Thiamine 100 MG Oral Tablet Thiamine HCl 100 MG Oral T ablet (B-1) Thiamine HCl 100 MG Oral Tablet (B-1) 03/28/2020 12:00:00 AM EDT 100 mg Oral active Take 1 tablet by mouth daily [facility] 24 HR Nicotine 0.875 MG/HR Transdermal P atch Nicotine 21 MG/24HR Transdermal Patch 24 Hour (NICODERM CQ) Nicotine 21 MG/24HR Transdermal Patch 24 Hour (NICODERM CQ) 03/28/2020 12:00:00 AM EDT 1 {patch} Transdermal active Place 1 patch onto the skin daily [facility] atorvastatin 20 MG Oral Tablet Atorvastatin Calcium 20 MG Oral Tablet (LIPITOR) Atorvastatin Calcium 20 MG Oral Tablet (LIPITOR) 03/28/2020 12:00:00 AM EDT 20 mg Oral active Take 1 tablet by mouth d [facility] Tab-A-Martin/Beta Carotene Oral Tablet 6661-4399-44 03/28/2020 12:00: 00 AM EDT 1 {tbl} Oral active Take 1 tablet by mouth d [facility] Lisinopril 40 MG Oral Tablet Lisinopril 40 MG Oral Tab let (ZESTRIL) Lisinopril 40 MG Oral Tablet (ZESTRIL) 03/28/2020 12:00:00 AM EDT 40 mg Oral active Take 1 tablet by mouth daily [facility] Hydralazine Hydrochloride 20 MG/ML Injec table Solution hydrALAZINE (APRESOLINE) injection 10 mg hydrALAZINE (APRESOLINE) injection 10 mg 03/27/2020 09 :00:00 AM EDT 10 mg Intravenous active 10 m g, Intravenous, Every 6 hours, First dose (after last modification) on Mon03/27/20 at 0900, For 11 doses
Dilute in 25-50 ml normal saline. Administer over 30 minutes.
Hold if SBP < 160
[facility] Medication administered onsite Naloxone HCl 4 MG/0.1ML Nasal Liquid (Narcan) [id number] 12:00:00 AM EDT 4 mg Nasal active 1 spray by Nasal route once for 1 dose [facility] Sucralfate 1000 MG Oral Tablet Sucralfate 1 GM Oral Ta blet (CARAFATE) Sucralfate 1 GM Oral Tablet (CARAFATE) 03/27/2020 12:00:00 AM EDT 1 g Oral active Take 1 tablet by mouth Four times daily [facility] pantoprazole 40 MG Delayed Release Oral Tablet Pantoprazole Sodium 40 MG Oral Tablet Delayed Release (PROTONIX) Pantoprazole Sodium 40 MG Oral Tablet De layed Release (PROTONIX) 03/27/2020 12:00:00 AM EDT 40 mg Oral aborted Take 1 tablet by mouth Two Times Daily [facility] carvedilol 25 MG Oral Tablet Carvedilol 25 MG Oral Tab let (COREG) Carvedilol 25 MG Oral Tablet (COREG) 03/27/2020 12:00:00 AM EDT 25 mg Oral active Take 1 tablet by mouth Two times daily with meals [facility] insulin lispro (HumaLOG) injection LOW DOSE EATING INS ULIN patients 1-8 Units 30565-771-74 03/26/2020 06:00:00 PM EDT Subcutaneous active 1-8 Units, Subcutaneous, Three Times Daily-With Meals, First dose on Samara 03/26/20 at 1800, For 30 days
Nursing MUST open the 'SQ Insulin Dosing Charts' Sidebar Report, or, the Patient Summary or Summary Report within the ED.
[facility] Medication administered onsite iohexol (OMNIPAQUE) 300 MG/ML contrast injection 100 mL [id number] 02 03/26/2020 03:15:00 PM EDT 100 mL Given by IV completed 100 mL, Given by IV, 1 TIME IMAGING, [facility] 03/26/20 at 1515, For 1 dose [facility] Medication administered onsite barium (VOLUMEN) 0.1 % suspension 500 mL [id number] 03/26/2020 11 :15:00 AM EDT 500 mL Oral completed 500 mL, Or al, 1 TIME IMAGING, [facility] 03/26/20 at 1115, For 1 dose [facility] Medication administered onsite potassium chloride (K-DUR) dissolvable tablet 40 mEq 18085-6 [id number] 03/26/2020 07:45:00 AM EDT 40 meq Oral completed 40 mEq, Oral, Once, [facility] 03/26/20 at 0745, For 1 dose
May be dissolved in water for patients with a G-Tube or unable to swallow. If concern for clogging G-Tube, may contact Pharmacy to switch formulation to a powder packet.
[facility] Medication administered onsite Acetaminophen 325 MG Oral Tablet acetaminophen (TYLENO L) tablet 650 mg acetaminophen (TYLENOL) tablet 650 mg 03/25/2020 10:45:00 PM EDT 65 0 mg Oral completed 650 mg, Oral, O nce, 03/25/20 at 2245, For 1 dose
Maximum daily dose of acetaminophen is 3,000 mg from all sources in 24 hours.
[facility] Medication administered onsite pantoprazole 40 MG Delayed Release Oral Tablet pantoprazole (PROTONIX) EC tablet 40 mg pantoprazole (PROTONIX) EC tablet 40 mg 03/25/2020 09:00:00 PM E DT 40 mg Oral active 40 mg, Ora l, 2 Times Daily, First dose on Mon03/25/20 at 2100, For 10 days
Do not crush or chew
[facility] Medication administered onsite Sucralfate 1000 MG Oral Tablet sucralfate (CARAFATE) t ablet 1 g sucralfate (CARAFATE) tablet 1 g 03/25/2020 05:00:00 PM EDT 1 g Oral active 1 g, Oral, Four Times Daily Standard, First dose on Mon03/25/20 at 1700, For 30 days [facility] Medication administered onsite atorvastatin 20 MG Oral Tablet atorvastatin (LIPITOR) tablet 20 mg atorvastatin (LIPITOR) tablet 20 mg 03/25/2020 09:00:00 AM EDT 20 mg Oral active 20 mg, Oral, Daily Standard, First dose (after last modification) on Mon03/25/20 at 0900, For 7 days
Hazardous drug. Follow precautions. Dispose of properly.
[facility] Medication administered onsite potassium chloride (K-DUR) dissolvable tablet 40 mEq [id number] 03/25/2020 06:00:00 AM EDT 40 meq Oral completed 40 mEq, Oral, Once, Mon03/25/20 at 0600, For 1 dose
May be dissolved in water for patients with a G-Tube or unable to swallow. If concern for clogging G-Tube, may contact Pharmacy to switch formulation to a powder packet.
[facility] Medication administered onsite POLYETHYLENE GLYCOL [...] Once, Mon03/25/20 at 0400, For 1 dose [facility] Medication administered onsite POLYETHYLENE GLYCOL [...] Once, Mon03/24/20 at 2100, For 1 dose [facility] Medication administered onsite gabapentin 300 MG Oral Capsule gabapentin (NEURONTIN) capsule 600 mg gabapentin (NEURONTIN) capsule 600 mg 03/24/2020 05:00:00 PM EDT 600 mg Oral active 600 mg, Oral, Three Times D aily Standard, First dose (after last modification) on Mon03/24/20 at 1700, For 5 days [facility] Medication administered onsite Bisacodyl 5 MG Delayed Release Oral Tablet bisacodyl ( DULCOLAX) EC tablet 20 mg bisacodyl (DULCOLAX) EC tablet 20 mg 03/24/2020 04:00:00 PM EDT 20 mg Oral completed 20 mg, Oral, Onc e, Mon03/24/20 at 1600, For 1 dose
Do not crush or chew
[facility] Medication administered onsite Lisinopril 20 MG Oral Tablet lisinopril (ZESTRIL) tabl et 40 mg lisinopril (ZESTRIL) tablet 40 mg 03/24/2020 09:00:00 AM EDT 40 mg Oral active 40 mg, Oral, Daily Standard, First dose on Mon03/24/20 at 0900, For 30 days [facility] Medication administered onsite Hydralazine Hydrochloride 20 MG/ML Injec table Solution hydrALAZINE (APRESOLINE) injection 10 mg hydrALAZINE (APRESOLINE) injection 10 mg 03/24/2020 09 :00:00 AM EDT 10 mg Intravenous aborted 10 m g, Intravenous, Three Times Daily Standard, First dose on Mon03/24/20 at 0900, For 5 days
Dilute in 25-50 ml normal saline. Administer over 30 minutes.
[facility] Medication administered onsite Hydralazine Hydrochloride [...] 30 minutes.
Hold if SBP < 160
[facility] Medication administered onsite Amlodipine 5 MG Oral Tablet amlodipine (NORVASC) table t 10 mg amlodipine (NORVASC) tablet 10 mg 03/24/2020 09:00:00 AM EDT 10 mg Oral active 10 mg, Oral, Daily Standard, First dose on Mon03/24/20 at 0900, For 30 days
Check vital signs before administering
[facility] Medication administered onsite potassium chloride (K-DUR) dissolvable tablet 40 mEq [id number] 38-90 03/24/2020 08:00:00 AM EDT 40 meq Oral completed 40 mEq, Oral, Once, Mon03/24/20 at 0800, For 1 dose
May be dissolved in water for patients with a G-Tube or unable to swallow. If concern for clogging G-Tube, may contact Pharmacy to switch formulation to a powder packet.
[facility] Medication administered onsite Potassium Chloride 0.1 MEQ/ML Injectable Solution potassium chloride 10 mEq in 100 mL IVPB (premix) potassium chloride 10 mEq in 100 mL IVPB (premix) 03/24/2020 05:00:00 AM EDT 10 meq Intravenous aborted 10 mEq, Intravenous, Administer over 60 Minutes, Every 1 hour, First dose on Mon03/24/20 at 0500, For 4 doses [facility] Medication administered onsite potassium chloride (K-DUR) dissolvable tablet 40 mEq [id number] 38-90 03/24/2020 04:45:00 AM EDT 40 meq Oral completed 40 mEq, Oral, Once, 7/14/20 at 0445, For 1 dose
May be dissolved in water for patients with a G-Tube or unable to swallow. If concern for clogging G-Tube, may contact Pharmacy to switch formulation to a powder packet.
[facility] Medication administered onsite Insulin Lispro [...] than 400 mg/dL - notify the provider.
[facility] Medication administered onsite Lisinopril 10 MG Oral Tablet lisinopril (ZESTRIL) tabl et 20 mg lisinopril (ZESTRIL) tablet 20 mg 03/23/2020 09:00:00 PM EDT 20 mg Oral completed 20 mg, Oral, 2 Times Daily, First dose ( after last modification) on Mon03/23/20 at 2100, For 1 dose
Check vital signs before administering
[facility] Medication administered onsite 24 HR Nicotine 0.875 MG/HR Transdermal P atch nicotine (NICODERM CQ) 21 MG/24HR 1 patch nicotine (NICODERM CQ) 21 MG/24HR 1 patch 03/23/2020 08:45:00 PM EDT 1 {patch} Transdermal active 1 patch, Transdermal, Administer over 24 Hours, Daily Standard, First dose on Mon03/23/20 at 2045, For 30 days [facility] Medication administered onsite Bisacodyl 5 MG Delayed Release Oral Tablet bisacodyl ( DULCOLAX) EC tablet 20 mg bisacodyl (DULCOLAX) EC tablet 20 mg 03/23/2020 04:00:00 PM EDT 20 mg Oral completed 20 mg, Oral, Onc e, Mon03/23/20 at 1600, For 1 dose
Do not crush or chew
[facility] Medication administered onsite Hydralazine Hydrochloride 20 MG/ML Injec table Solution hydrALAZINE (APRESOLINE) injection 10 mg hydrALAZINE (APRESOLINE) injection 10 mg 03/23/2020 03 :30:00 PM EDT 10 mg Intravenous completed 10 mg, Intravenous, Once, Mon03/23/20 at 1530, For 1 dose
Dilute in 25-50 ml normal saline. Administer over 30 minutes.
[facility] Medication administered onsite 1 ML Lorazepam 2 MG/ML Injection LORazepam (ATIVAN) in jection 2 mg LORazepam (ATIVAN) injection 2 mg 03/23/2020 03:30:00 PM EDT 2 mg Intraveno us completed 2 mg, Intravenous, Once, 03/11 at 1530, For 1 dose [facility] Medication administered onsite insulin lispro (HUMALOG) injection LOW D OSE CLEAR LIQUID INSULIN patients 1-8 Units [id number] 03/23/2020 11:30:00 AM EDT Subcutaneous aborted 1-8 Units, Subcutaneous, Before Meals - Three Times Daily, First dose on Mon03/23/20 at 1130, For 30 days
Nursing MUST open the 'SQ Insulin Dosing Charts' Sidebar Report, or, the Patient Summary or Summary Report within the ED.
[facility] Medication administered onsite pantoprazole 4 MG/ML Injectable Solution pantoprazole (PROTONIX) injection 40 mg pantoprazole (PROTONIX) injection 40 mg 03/23/2020 09:00:00 AM EDT 40 mg Intravenous aborted 40 mg, Intrav enous, Daily Standard, First dose on Mon03/23/20 at 0900, For 30 days [facility] Medication administered onsite 4 ML Labetalol hydrochloride 5 MG/ML Car tridge labetalol (TRANDATE) injection 10 mg labetalol (TRANDATE) injection 10 mg 03/23/2020 08:15:41 AM EDT 10 mg Intravenous aborted 10 mg, Intrav enous, Every 6 hours PRN, High Blood Pressure, systolic BP greater than 170, Starting Mon03/23/20 at 0815, For 2 days [facility] Medication administered onsite insulin lispro (HumaLOG) injection LOW DOSE EATING INS ULIN patients 1-8 Units [id number] 03/22/2020 06:00:00 PM EDT Subcutaneous aborted 1-8 Units, Subcutaneous, Three Times Daily-With Meals, First dose on Mon03/22/20 at 1800, For 30 days
Nursing MUST open the 'SQ Insulin Dosing Charts' Sidebar Report, or, the Patient Summary or Summary Report within the ED.
[facility] Medication administered onsite dextrose 50 % IV solution 25 mL [id number] 03/22/2020 03:36:45 PM E DT 25 mL Intravenous active 25 mL, Intrav enous, PRN, Other, blood glucose <55, Starting 03/22/20 at 1536, For 30 days
Not for midline administration.
[facility] Medication administered onsite Glucagon 1 MG Injection glucagon (human recombinant) ( GLUCAGEN) injection 1 mg glucagon (human recombinant) (GLUCAGEN) injection 1 mg 03/22/2020 03:36:45 PM EDT 1 mg Intramuscular active 1 mg, Intramuscular, PRN, for glucose <55 without IV access, Starting 03/22/20 at 1536, For 30 days [facility] Medication administered onsite Glucose 0.417 MG/MG Oral Gel glucose (GLUTOSE) 40 % or al gel 15 g glucose (GLUTOSE) 40 % oral gel 15 g 03/22/2020 03:36:45 PM EDT 15 g Oral active 15 g, Oral, PRN, Low blood s ugar, for gluose 55-69 mg/dl and able to take PO, Starting 03/22/20 at 1536, For 30 days [facility] Medication administered onsite Folic Acid 1 MG Oral Tablet folic acid (FOLVITE) table t 1 mg folic acid (FOLVITE) tablet 1 mg 03/22/2020 02:15:00 PM EDT 1 mg Oral active 1 mg, Oral, Daily Standard, First dose on 03/22/20 at 1415, For 30 days [facility] Medication administered onsite multivitamin tablet 1 tablet [id number] 03/22/2020 02:15:00 PM EDT 1 {tbl} Oral active 1 tablet, Oral , Daily Standard, First dose on 03/22/20 at 1415, For 30 days [facility] Medication administered onsite Thiamine 100 MG Oral Tablet thiamine (B-1) tablet 100 mg thiamine (B-1) tablet 100 mg 03/22/2020 02:15:00 PM EDT 100 mg Oral active 100 mg, Oral, Daily Standard, First dose on 03/22/20 at 1415, For 30 days [facility] Medication administered onsite Lorazepam 1 MG Oral Tablet LORazepam (ATIVAN) tablet 1 mg LORazepam (ATIVAN) tablet 1 mg 03/22/2020 02:10:13 PM EDT 1 mg Oral aborte d 1 mg, Oral, Every 4 hours PRN, Anxiety, Starting 03/22/20 at 1410, For 71 hours [facility] Medication administered onsite Naltrexone hydrochloride 50 MG Oral Tablet naltrexone (DEPADE) tablet 50 mg naltrexone (DEPADE) tablet 50 mg 03/22/2020 10:45:00 AM EDT 50 mg Oral active 50 mg, Oral, Daily Standard, First dose on 03/22/20 at 1045, For 30 days [facility] Medication administered onsite DULoxetine (CYMBALTA) DR capsule 90 mg 03/22/2020 10:45:00 AM EDT 90 mg Oral active 90 mg, Oral, D aily Standard, First dose on 03/22/20 at 1045, For 30 days
Do not crush or chew
[facility] Medication administered onsite Ceftriaxone 1000 MG Injection cefTRIAXone (ROCEPHIN) i nfusion 1 g (premix) cefTRIAXone (ROCEPHIN) infusion 1 g (premix) 03/21/2020 10:30:00 PM EDT 1 g Intravenous aborted 1 g, Intraven ous, at 100 mL/hr, Every 24 hours, First dose (after last modification) on 03/21/20 at 2230, For 4 doses
Discouraged Uses: Empiric treatment of post-surgical meningitis (ceftazidime preferred)
[facility] Medication administered onsite pantoprazole (PROTONIX) 0.4 mg/mL in sodium chloride 0.9 % 2 50 mL infusion 03/21/2020 09:30:00 PM EDT 8 mg/h Intravenous aborted 8 mg/hr (20 mL/hr), Intravenous, at 20 mL/hr, Continuous, Starting 03/21/20 at 2130, For 19 hours
Indication: Active GI bleed [facility] Medication administered onsite TC-99M labeled red blood cells (ULTRATAG) 03/21/2020 04:00 :00 PM EDT Intravenous completed Intravenous, Once, 03/21/20 at 1600, For 1 dose, Imaging Protocol [facility] Medication administered onsite pantoprazole (PROTONIX) 0.4 mg/mL in sodium chloride 0.9 % 2 50 mL infusion 03/21/2020 02:00:00 PM EDT 8 mg/h Intravenous aborted 8 mg/hr (20 mL/hr), Intravenous, at 20 mL/hr, Continuous, Starting 03/21/20 at 1400, For 30 days
Indication: Active GI bleed [facility] Medication administered onsite atorvastatin 20 MG Oral Tablet atorvastatin (LIPITOR) tablet 20 mg atorvastatin (LIPITOR) tablet 20 mg 03/21/2020 09:00:00 AM EDT 20 mg Oral aborted 20 mg, Oral, Daily Standard, First dose on 03/21/20 at 0900, For 5 days
Hazardous drug. Follow precautions. Dispose of properly.
[facility] Medication administered onsite carvedilol 25 MG Oral Tablet carvedilol (COREG) tablet 25 mg carvedilol (COREG) tablet 25 mg 03/21/2020 09:00:00 AM EDT 25 mg Oral activ e 25 mg, Oral, 2 Times Daily With Meals, First dose on 03/21/20 at 0900, For 30 days
Check vital signs before administering
[facility] Medication administered onsite gabapentin 300 MG Oral Capsule gabapentin (NEURONTIN) capsule 600 mg gabapentin (NEURONTIN) capsule 600 mg 03/21/2020 09:00:00 AM EDT 600 mg Oral aborted 600 mg, Oral, Three Times D aily Standard, First dose on 03/21/20 at 0900, For 15 doses [facility] Medication administered onsite iohexol (OMNIPAQUE) 300 MG/ML contrast injection 100 mL [id number] 1003/21/2020 06:00:00 AM EDT 100 mL Given by IV completed 100 mL, Given by IV, 1 TIME IMAGING, 03/21/20 at 0600, For 1 dose [facility] Medication administered onsite Lorazepam 1 [...] the CIWA score. Assess once patient awakens.
[facility] Medication administered onsite iohexol (OMNIPAQUE) 240 MG/ML contrast 20 mL [id number] 06/2020 11:53:33 PM EDT 20 mL Oral completed 20 mL, Oral, O nce PRN, Contrast, Per Protocol, Starting Mon03/20/20 at 2353, For [address] Scanner prior. fisher scallop to CT.Dilute in 500 mL liquid x1 automation specialist to CT scan - per protocol. Use "Contrast dose chart" link for dosing guidelines.
[facility] Medication administered onsite iohexol (OMNIPAQUE) 240 MG/ML contrast 20 mL [id number] 06/2020 11:53:33 PM EDT 20 mL Oral completed 20 mL, Oral, O nce PRN, Contrast, Per Protocol, Starting Mon03/20/20 at 2353, For [address] to tell RN administration time of first dose. Dilute in 500 mL liquid x1 Now per protocol. Use "Contrast dose chart" link for dosing guidelines.
[facility] Medication administered onsite pantoprazole 4 MG/ML Injectable Solution pantoprazole (PROTONIX) injection 40 mg pantoprazole (PROTONIX) injection 40 mg 03/20/2020 11:45:00 PM EDT 40 mg Intravenous aborted 40 mg, Intrav enous, 2 Times Daily, First dose on Mon03/20/20 at 2345, For 30 days [facility] Medication administered onsite Lisinopril 20 MG Oral Tablet lisinopril (ZESTRIL) tabl et 20 mg lisinopril (ZESTRIL) tablet 20 mg 03/20/2020 10:45:00 PM EDT 20 mg Oral aborted 20 mg, Oral, 2 Times Daily, First dose (after last modification) on Mon03/20/20 at 2245, For 30 days
Check vital signs before administering
[facility] Medication administered onsite Ceftriaxone 2000 MG Injection cefTRIAXone (ROCEPHIN) I VPB (premix) 2 g cefTRIAXone (ROCEPHIN) IVPB (premix) 2 g 03/20/2020 10:30:00 PM EDT 2 g Intravenous aborted 2 g, Intraven ous, at 100 mL/hr, Every 24 hours, First dose on Mon03/20/20 at 2230, For 5 days
Discouraged Uses: Empiric treatment of post-surgical meningitis (ceftazidime preferred)
[facility] Medication administered onsite Calcium Chloride 0.0014 MEQ/ML / Potassi um Chloride 0.004 MEQ/ML / Sodium Chloride 0.103 MEQ/ML / Sodium Lactate 0.028 MEQ/ML Injectable Solution lactated ringers infusion lactated ringers infusion 03/20/2020 10:15:00 PM EDT 200 mL/h Intravenous aborted at 200 m L/hr, Intravenous, Continuous, Starting Mon03/20/20 at 2215, For 5 days [facility] Medication administered onsite Cyclobenzaprine hydrochloride 10 MG Oral Tablet cyclobenzaprine (FLEXERIL) tablet 10 mg cyclobenzaprine (FLEXERIL) tablet 10 mg 03/20/2020 10:05:35 PM EDT 10 mg Oral active 10 mg, Oral, Thr ee Times Daily-PRN, Muscle spasms, Starting Mon03/20/20 at 2205, For 30 days [facility] Medication administered onsite Tamsulosin hydrochloride 0.4 MG Oral Capsule [Flomax] Flomax 0.4 MG Flomax 0.4 MG 11/14/2019 12:00:00 AM EST active 1 capsule eCW1 ([facility]) Tamsulosin hydrochloride 0.4 MG Oral Capsule [Flomax] Flomax 0.4 MG Flomax 0.4 MG 11/14/2019 12:00:00 AM EST active 1 capsule eCW1 ([facility]) sildenafil 25 MG Oral Tablet [Viagra] Viagra 25 MG Viagra 25 MG 11/13/2019 12:00:00 AM EST active 1 tablet as needed eCW1 ([facility]) sildenafil 25 MG Oral Tablet [Viagra] Viagra 25 MG Viagra 25 MG 11/13/2019 12:00:00 AM EST active 1 tablet as needed eCW1 ([facility]) sildenafil 25 MG Oral Tablet [Viagra] Viagra 25 MG Viagra 25 MG 11/13/2019 12:00:00 AM EST active 1 tablet as needed eCW1 ([facility]) Magnesium Hydroxide 80 MG/ML Oral Suspension Milk Of Ovidio a 10/28/2019 12:00:00 AM EST ORAL active M EDENT ([facility], ) POLYETHYLENE GLYCOL 3350 105 MG/ML / Pot assium Chloride 0.27117 MEQ/ML / Sodium Bicarbonate 0.017 MEQ/ML / Sodium Chloride 0.0479 MEQ/ML Oral Solution [TriLyte] Trilyte 10/28/2019 12:00:00 AM EST active MEDENT ([facility], ) Amlodipine 5 MG Oral Tablet AmLODIPine Besylate 5 MG AmLODIP ine Besylate 5 MG 10/24/2019 12:00:00 AM EST active 1 tablet eCW1 ([facility]) Cephalexin 250 MG Oral Capsule [Keflex] Keflex 250 MG Keflex 250 MG 10/24/2019 12:00:00 AM EST active 1 capsul e eCW1 ([facility]) gabapentin 600 MG Oral Tablet Gabapentin 10/23/2019 12:00:00 AM EST active MEDENT ([facility]) May Have - UNK 09/20/2019 12:00:00 AM EST active May Have - eCW1 ([facility]) Fluoxetine 60 MG Oral Tablet FLUoxetine HCl 60 MG FLUoxetine HCl 60 MG 09/20/2019 12:00:00 AM EST active 1 tablet eCW1 ([facility]) Fluoxetine 60 MG Oral Tablet FLUoxetine HCl 60 MG FLUoxetine HCl 60 MG 09/20/2019 12:00:00 AM EST 1.0 {tablet} active FLUoxetine HCl 60 MG eCW1 ([facility]) Nystatin 403257 UNT/ML / Triamcinolone A cetonide 1 MG/ML Topical Cream Nystatin- Triamcinolone 700574-0.1 UNIT/GM Nystatin-Triamcinolone 776965-0.1 UNIT/GM 09/20/2019 12:00:00 AM EST 1.0 {application} act jack Nystatin- Triamcinolone 827008-7.1 UNIT/GM eCW1 ([facility]) Fluoxetine 60 MG Oral Tablet FLUoxetine HCl 60 MG FLUoxetine HCl 60 MG 09/20/2019 12:00:00 AM EST active 1 tablet eCW1 ([facility]) Fluoxetine 60 MG Oral Tablet FLUoxetine HCl 60 MG FLUoxetine HCl 60 MG 09/20/2019 12:00:00 AM EST 1.0 {tablet} active FLUoxetine HCl 60 MG eCW1 ([facility]) Fluoxetine 60 MG Oral Tablet FLUoxetine HCl 60 MG FLUoxetine HCl 60 MG 09/20/2019 12:00:00 AM EST 1.0 {tablet} active FLUoxetine HCl 60 MG eCW1 ([facility]) Nystatin 747075 UNT/ML / Triamcinolone A cetonide 1 MG/ML Topical Cream Nystatin- Triamcinolone 586209-5.1 UNIT/GM Nystatin-Triamcinolone 115211-8.1 UNIT/GM 09/20/2019 12:00:00 AM EST 1.0 {application} act jack Nystatin- Triamcinolone 985567-4.1 UNIT/GM eCW1 ([facility]) May Have - UNK 09/20/2019 12:00:00 AM EST active May Have - eCW1 ([facility]) Fluoxetine 60 MG Oral Tablet FLUoxetine HCl 60 MG FLUoxetine HCl 60 MG 09/20/2019 12:00:00 AM EST 1.0 {tablet} active FLUoxetine HCl 60 MG eCW1 ([facility]) Nystatin 829340 UNT/ML / Triamcinolone A cetonide 1 MG/ML Topical Cream Nystatin- Triamcinolone 775697-9.1 UNIT/GM Nystatin-Triamcinolone 836601-3.1 UNIT/GM 09/20/2019 12:00:00 AM EST active 1 application eCW1 ([facility]) May Have - UNK 09/20/2019 12:00:00 AM EST active cane eCW1 ([facility]) May Have - UNK 09/20/2019 12:00:00 AM EST active May Have - eCW1 ([facility]) Fluoxetine 60 MG Oral Tablet FLUoxetine HCl 60 MG FLUoxetine HCl 60 MG 09/20/2019 12:00:00 AM EST active 1 tablet eCW1 ([facility]) May Have - UNK 09/20/2019 12:00:00 AM EST active May Have - eCW1 ([facility]) Nicotine 2 MG Oral Lozenge Nicotine Polacrilex 2 MG Nicotine Polacrilex 2 MG 09/20/2019 12:00:00 AM EST active 1 lozenge as needed eCW1 ([facility]) May Have - UNK 09/20/2019 12:00:00 AM EST active May Have - eCW1 ([facility]) May Have - UNK 09/20/2019 12:00:00 AM EST active May Have - eCW1 ([facility]) Nystatin 496262 UNT/ML / Triamcinolone A cetonide 1 MG/ML Topical Cream Nystatin- Triamcinolone 825762-3.1 UNIT/GM Nystatin-Triamcinolone 546521-8.1 UNIT/GM 09/20/2019 12:00:00 AM EST 1.0 {application} act jack Nystatin- Triamcinolone 457670-5.1 UNIT/GM eCW1 ([facility]) May Have - UNK 09/20/2019 12:00:00 AM EST active May Have - eCW1 ([facility]) Nystatin 963874 UNT/ML / Triamcinolone A cetonide 1 MG/ML Topical Cream Nystatin- Triamcinolone 066840-6.1 UNIT/GM Nystatin-Triamcinolone 146492-8.1 UNIT/GM 09/20/2019 12:00:00 AM EST active 1 application eCW1 ([facility]) Fluoxetine 60 MG Oral Tablet FLUoxetine HCl 60 MG FLUoxetine HCl 60 MG 09/20/2019 12:00:00 AM EST active 1 tablet eCW1 ([facility]) Nystatin 308111 UNT/ML / Triamcinolone A cetonide 1 MG/ML Topical Cream Nystatin- Triamcinolone 825267-4.1 UNIT/GM Nystatin-Triamcinolone 223085-4.1 UNIT/GM 09/20/2019 12:00:00 AM EST active 1 application eCW1 ([facility]) May Have - UNK 09/20/2019 12:00:00 AM EST active May Have - eCW1 ([facility]) Fluoxetine 60 MG Oral Tablet FLUoxetine HCl 60 MG FLUoxetine HCl 60 MG 09/20/2019 12:00:00 AM EST 1.0 {tablet} active FLUoxetine HCl 60 MG eCW1 ([facility]) One touch ultra blue _ UNK 09/20/2019 12:00:00 AM EST active 1 bottle of test solution eCW1 ([facility]) May Have - UNK 09/20/2019 12:00:00 AM EST active cane eCW1 ([facility]) May Have - UNK 09/20/2019 12:00:00 AM EST active May Have - eCW1 ([facility]) Nystatin 543702 UNT/ML / Triamcinolone A cetonide 1 MG/ML Topical Cream Nystatin- Triamcinolone 144626-4.1 UNIT/GM Nystatin-Triamcinolone 830092-0.1 UNIT/GM 09/20/2019 12:00:00 AM EST 1.0 {application} act jack Nystatin- Triamcinolone 293758-3.1 UNIT/GM eCW1 ([facility]) Nystatin 896203 UNT/ML / Triamcinolone A cetonide 1 MG/ML Topical Cream Nystatin- Triamcinolone 165996-2.1 UNIT/GM Nystatin-Triamcinolone 854850-7.1 UNIT/GM 09/20/2019 12:00:00 AM EST 1.0 {application} act jack Nystatin- Triamcinolone 197811-8.1 UNIT/GM eCW1 ([facility]) Fluoxetine 60 MG Oral Tablet FLUoxetine HCl 60 MG FLUoxetine HCl 60 MG 09/20/2019 12:00:00 AM EST 1.0 {tablet} active FLUoxetine HCl 60 MG eCW1 ([facility]) Fluoxetine 60 MG Oral Tablet FLUoxetine HCl 60 MG FLUoxetine HCl 60 MG 09/20/2019 12:00:00 AM EST 1.0 {tablet} active FLUoxetine HCl 60 MG eCW1 ([facility]) Fluoxetine 60 MG Oral Tablet FLUoxetine HCl 60 MG FLUoxetine HCl 60 MG 09/20/2019 12:00:00 AM EST 1.0 {tablet} active FLUoxetine HCl 60 MG eCW1 ([facility]) May Have - UNK 09/20/2019 12:00:00 AM EST active cane eCW1 ([facility]) Nystatin 601335 UNT/ML / Triamcinolone A cetonide 1 MG/ML Topical Cream Nystatin- Triamcinolone 755254-2.1 UNIT/GM Nystatin-Triamcinolone 652365-0.1 UNIT/GM 09/20/2019 12:00:00 AM EST 1.0 {application} act jack Nystatin- Triamcinolone 679939-7.1 UNIT/GM eCW1 ([facility]) May Have - UNK 09/20/2019 12:00:00 AM EST active May Have - eCW1 ([facility]) May Have - UNK 09/20/2019 12:00:00 AM EST active May Have - eCW1 ([facility]) May Have - UNK 09/20/2019 12:00:00 AM EST active May Have - eCW1 ([facility]) Nystatin 049551 UNT/ML / Triamcinolone A cetonide 1 MG/ML Topical Cream Nystatin- Triamcinolone 961908-6.1 UNIT/GM Nystatin-Triamcinolone 027052-6.1 UNIT/GM 09/20/2019 12:00:00 AM EST active 1 application eCW1 ([facility]) Nicotine 2 MG Oral Lozenge Nicotine Polacrilex 2 MG Nicotine Polacrilex 2 MG 09/20/2019 12:00:00 AM EST active 1 lozenge as needed eCW1 ([facility]) May Have - UNK 09/20/2019 12:00:00 AM EST active cane eCW1 ([facility]) Fluoxetine 60 MG Oral Tablet FLUoxetine HCl 60 MG FLUoxetine HCl 60 MG 09/20/2019 12:00:00 AM EST 1.0 {tablet} active FLUoxetine HCl 60 MG eCW1 ([facility]) Ibuprofen 600 MG Oral Tablet ibuprofen (ADVIL,MOTRIN) 600 MG tablet ibuprofen (ADVIL,MOTRIN) 600 MG tablet 12/09/2015 12:00:00 AM EDT [facility] Mirtazapine 15 MG Oral Tablet mirtazapine (REMERON) 15 MG tablet mirtazapine (REMERON) 15 MG tablet 11/19/2015 12:00:00 AM EST [facility] terbinafine 250 MG Oral Tablet terbinafine (LAMISIL) 2 50 MG tablet terbinafine (LAMISIL) 250 MG tablet 11/18/2015 12:00:00 AM EST aborted [facility] atorvastatin 20 MG Oral Tablet atorvastatin (LIPITOR) 20 MG tablet atorvastatin (LIPITOR) 20 MG tablet 10/06/2015 12:00:00 AM EST aborted [facility] tramadol hydrochloride 50 MG Oral Tablet traMADol HCl 50 MG Oral Tablet (ULTRAM) traMADol HCl 50 MG Oral Tablet (ULTRAM) 50 mg Oral aborted Take 50 mg by mouth every 6 (six) hours as needed for Pain [facility] Lisinopril 20 MG Oral Tablet lisinopril (PRINIVIL,ZEST RIL) 20 MG tablet lisinopril (PRINIVIL,ZESTRIL) 20 MG tablet 20 mg Oral aborted Take 20 mg by mouth daily [facility] Atenolol 50 MG Oral Tablet Atenolol 50 MG Oral Tablet (TENORMIN) Atenolol 50 MG Oral Tablet (TENORMIN) 75 mg Oral aborted T rafa 75 mg by mouth daily [facility] Esomeprazole 40 MG Delayed Release Oral Capsule Esomeprazole Magnesium 40 MG Oral Capsule Delayed Release (NEXIUM) Esomeprazole Magnesium 40 MG Oral Capsul e Delayed Release (NEXIUM) 40 mg Oral aborted Take 40 mg by mouth daily [facility] [facility] Metformin hydrochloride 1000 MG Oral Tab let metformin (GLUCOPHAGE) 1000 MG tablet metformin (GLUCOPHAGE) 1000 MG tablet 1000 mg Oral aborted Take 1,000 mg by mouth Two times daily with meals. [facility] carvedilol 25 MG Oral Tablet carvedilol (COREG) 25 MG tablet carvedilol (COREG) 25 MG tablet 25 mg Oral aborted Juan Francisco e 25 mg by mouth Two times daily with meals. [facility] Omeprazole 20 MG Delayed Release Oral Ca psule omeprazole (PRILOSEC) 20 MG capsule omeprazole (PRILOSEC) 20 MG capsule 20 mg Oral aborted Take 20 mg by mouth Two times daily before meals. [facility] Insurance Providers Payer name Policy type / Coverage type Policy ID Covered democrat ID Covered democrat's relationship to glaser Policy Glaser Plan Information HUMANA GOLD [id number] SP [id number] EMEDNY [id number] SP [id number] HUMANA GOLD [id number] SP [id number] HUMANA MEDICARE ADVANTAGE G [id number] Self [id number] MEDICAID M [id number] Self [id number] HUMANA GOLD [id number] SP [id number] HUMANA GOLD O [id number] S [id number] MEDICAID M [id number] S [id number] MEDICARE [id number] SP [id number] MEDICARE [id number] SP [id number] A [employer] P [id number] S [id number] Medicaid S [id number] S [id number] HUMANA MEDICARE ADVANTAGE G [id number] Self [id number] MEDICARE A [id number] Self [id number] A MEDICAID [id number] SP [id number] Medicare S [id number] S [id number] MEDICARE [id number] Other [id number] MEDICARE [id number] S [id number] MEDICARE [id number] Other [id number] A ANSI-Medicare Part B [id number] ANSI-Medicaid [id number] ANSI-Medicare Part B [id number] ANSI-Medicaid [id number] ANSI-Medicare Part B [id number] ANSI-Medicaid [id number] [place] [id number] Self [id number] [place] Med[place] [id number] Self [id number] Medicare [facility] Medicare Primary [id number] Self [id number] ANSI-Medicare Part B [id number] ANSI-Medicaid [id number] ANSI-Medicare Part B [id number] ANSI-Medicaid [id number] ANSI-Medicare Part B [id number] ANSI-Medicaid [id number] [place] [id number] Self [id number] [place] [id number] Self CD3 [id number] Medicare [facility] Medicare Primary [id number] Self [id number] ANSI-Medicaid [id number] ANSI-Medicare Part B [id number] [place] [id number] Self [id number] [place] [id number] Self [id number] [id number] Self [id number] ANS-Medicare Part B [id number] ANSI-Medicaid [id number] [place] [id number] Self CD3 [id number] [facility] [id number] Self CD3 [id number] [id number] Self [id number] ANSI-Medicaid [id number] ANS-Medicare Part B [id number] [facility] [id number] Self [id number] [facility] [id number] Self CD3 [id number] [place] [id number] Self [id number] ANSI-Medicaid [id number] ANSI-Medicare Part B [id number] ANSI-Medicaid [id number] ANS-Medicare Part B [id number] ANSI-Medicaid [id number] ANSI-Medicare Part B [id number] ANSI-Medicaid [id number] ANSI-Medicare Part B [id number] ANSI-Medicare Part B [id number] ANSI-Medicaid [id number] ANSI-Medicare Part B [id number] ANSI-Medicaid [id number] ANSI-Medicaid [id number] ANSI-Medicare Part B [id number] [facility] [id number] Self [id number] [facility] [id number] Self CD3 [id number] Medicare [facility] Medicare Primary [id number] Self [id number] ANSI-Medicare Part B [id number] ANSI-Medicaid [id number] Medicaid [facility] Part B [id number] Self [id number] Medicaid [facility] Part B [id number] Self [id number] [place] [id number] Self [id number] ANSI-Medicare Part B [id number] ANSI-Medicaid [id number] ANSI-Medicare Part B [id number] ANSI-Medicaid [id number] ANSI-Medicare Part B [id number] ANSI-Medicaid [id number] ANSI-Medicare Part B [id number] ANSI-Medicaid [id number] ANSI-Medicare Part B [id number] ANSI-Medicaid [id number] ANSI-Medicaid [id number] ANSI-Medicare Part B [id number] ANSI-Medicaid [id number] ANSI-Medicare Part B [id number] ANSI-Medicaid [id number] ANSI-Medicare Part B [id number] [place] [id number] Self [id number] [place] [id number] Self [id number] [place] Primary [id number] Self [id number] ANSI-Medicare Part B [id number] ANSI-Medicaid [id number] [place] [id number] Self CD3 [id number] [place] Primary [id number] Self [id number] MEDICARE [id number] SP [id number] [place] [id number] Self CD3 [id number] [place]ig[place] [id number] Self CD3 [id number] [place] Primary [id number] Self [id number] [place] [id number] Self CD3 [id number] [place]ig[place] [id number] Self CD3 [id number] [place] Primary [id number] Self [id number] [place] Med[place] [id number] Self CD3 [id number] [place] Primary [id number] Self [id number] MEDICAID [id number] [place] [id number] Self CD3 [id number] [place]ig[place] [id number] Self CD3 [id number] [place] Primary [id number] Self [id number] MEDICARE C [id number] S [id number] [place] [id number] Self CD3 [id number] [place]ig[place] [id number] Self CD3 [id number] [place] [id number] Self [id number] MEDICAID M [id number] Self [id number] [place] [id number] Self CD3 [id number] [place]ig[place] [id number] Self CD3 [id number] [place] Primary [id number] Self [id number] [place]ig[place] [id number] Self CD3 [id number] [place] [id number] Self CD3 [id number] Medicare [facility] Medicare Primary [id number] Self [id number] [place] [id number] Self CD3 [id number] [id number] Self CD3 [id number] Medicare [facility] Medicare Primary [id number] Self [id number] [place] Medig[place] [id number] Self CD3 [id number] Medicare Primary [id number] Self [id number] [place] Medig[place] [id number] Self CD3 [id number] [place] Medicare Primary [id number] Self [id number] [place]ig[place] [id number] Self CD3 [id number] [place] Medicare Primary [id number] Self [id number] [place] [id number] Self CD3 [id number] [place] [id number] Self CD3 [id number] Medicare [facility] Medicare Primary [id number] Self [id number] [place] Part B [id number] Self CD3 [id number] [place] [id number] Self CD3 [id number] Medicare [facility] Medicare Primary [id number] Self [id number] [place] [id number] Self CD3 [id number] [place] Medig[place] Part [place] [id number] Self CD3 [id number] Medicare [facility] Medicare Primary [id number] Self [id number] Medicare [facility] Medicare Primary [id number] Self [id number] [place]ig[place] [id number] Self CD3 [id number] [place]ig[place] [id number] Self CD3 [id number] Medicare [facility] Medicare Primary [id number] Self [id number] [place] Self Medicare [facility] Medicare Primary Self MEDICARE [id number] SP [id number] A SELF PAY UNAVAILABLE SP UNAVAILA BLE MEDICAID [id number] PT [id number] MEDICARE PART B [id number] PT [id number] MEDICARE PART A [id number] PT [id number] Problems, Conditions, and Diagnoses Code Display Name Description Problem Type Effective Dates Data Source(s) E13.10 8365572 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 Problem 10/06/2020 12:00:00 AM EST eCW1 ([facility]) K76.0 903806633 Fatty liver Problem 10/05/2020 12:00:[address] eCW1 ([facility]) N40.0 400348814 Benign prostatic hyp erplasia without lower urinary tract symptoms Problem 10/05/2020 12:00:00 AM EST eCW1 ([facility]) K50.919 90748309 Crohn's disease with complication, unspecified gastrointestinal tract location Problem 10/05/2020 12:00:00 AM EST eCW1 ([facility]) K70.0 65177599 Fatty liver due to alcoholism Problem 2020 12:00:00 AM EST eCW1 ([facility]) K86.0 192720472 Alcohol-induced chronic pancreatitis Prob yi 10/05/2020 12:00:00 AM EST eCW1 ([facility]) Y83.2 00451749 Surgical operation w ith anastomosis, bypass or graft as the cause of abnormal reaction of the patient, or of later complication, without mention of misadventure at the time of the procedure Problem 09/07/2020 12:0 0:00 AM EST eCW1 ([facility]) D50.0 145822826 Iron deficiency anemia due to chronic blo od loss Problem 07/21/2020 12:00:00 AM EST eCW1 ([facility]) N40.1 [id number] Benign prostatic hyp erplasia with lower urinary tract symptoms Problem 11/14/2019 12:00:00 AM EST eCW1 ([facility]) N40.1 [id number] Benign prostatic hyp erplasia with lower urinary tract symptoms Problem 11/14/2019 12:00:00 AM EST eCW1 ([facility]) E11.65 Hyperglycemia due to type 2 diabetes no litus Diabetes mellitus with hyperglycemia Problem 11/14/2019 12:00:00 AM EST eCW1 ([facility]) E29.1 63086102 Hypogonadism in male Problem 11/01/2019 12:0 0:00 AM EST eCW1 ([facility]) E29.1 44047838 Hypogonadism in male Problem 11/01/2019 12:0 0:00 AM EST eCW1 ([facility]) I10 Hypertension Hypertension Problem 11/01/2019 12:00:00 A M EST W1 ([facility]) N52.9 839115886 Erectile dysfunction, unspecifie d erectile dysfunction type Problem 10/24/2019 12:00:00 AM EST W1 ([facility]) K83.8 Other specified diseases of biliary trac t Other specified diseases of biliary tract Diagnosis 07/29/2020 11:27:57 AM [facility] K28.9 Gastrojejunal ulcer, unspeci fied as acute or chronic, without hemorrhage or perforation Gastrojejunal ulcer, unspecified as acut e or chronic, without hemorrhage or perforation Diagnosis 07/29/2020 11:27:[address] [facility] K80.50 Calculus of bile duct withou t cholangitis or cholecystitis without obstruction Calculus of bile duct without cholangiti s or cholecystitis without obstruction Diagnosis [facility] Essential (primary) hypertension Essential (primary) h ypertension Diagnosis 03/21/2020 01:21:37 AM [facility] gi bleed, CBD & pancreatic duct stone bl ockage, SI gi bleed, CBD & pancreatic duct stone blockage, SI Diagnosis 03/20/2020 09:58:44 PM [facility] Surgeries/Procedures Procedure Description Date Indications Data Source(s) POCT GLUCOSE, DOCKED POCT GLUCOSE, DOCKED Routine 03/27/2020 12:28 PM EDT 03/27/2020 04:28:00 PM [facility] POCT GLUCOSE, DOCKED POCT GLUCOSE, DOCKED Routine 03/27/2020 8:57 AM EDT 03/27/2020 12:57:00 PM [facility] BLOOD COUNT COMPLETE AUTO&AUTO DIFRNTL WBC COUNT CBC AND DIFFER ENTIAL Timed 03/27/2020 3:17 AM EDT 03/27/2020 07:17:00 AM [facility] BASIC METABOLIC PANEL CALCIUM TOTAL BASIC METABOLIC PANEL Routi ne 03/27/2020 3:17 AM EDT 03/27/2020 07:17:00 AM T [facility] GLUCOSE QUANTITATIVE BLOOD XCPT REAGENT STRIP POCT GLUCOSE, DOC KED Routine 03/26/2020 10:40 PM EDT 03/27/2020 02:40:00 AM [facility] GLUCOSE QUANTITATIVE BLOOD XCPT REAGENT STRIP POCT GLUCOSEKARLO Routine 03/26/2020 10:00 PM EDT 03/27/2020 02:00:00 AM [facility] GLUCOSE QUANTITATIVE BLOOD XCPT REAGENT STRIP POCT GLUCOSE, KARLO ROBERTS Routine 03/26/2020 5:02 PM EDT 03/26/2020 09:02:[address] [facility] [address] ABDOEN & PELVIS W/CONTRAST MATERIAL CT ENTEROGRAPHY [id number] Ro utine 03/26/2020 3:27 PM EDT 03/26/2020 07:27:04 PM [facility] GLUCOSE QUANTITATIVE BLOOD XCPT REAGENT STRIP POCT GLUCOSEKARLO Routine 03/26/2020 12:34 PM EDT 03/26/2020 04:34:00 PM [facility] BLOOD COUNT COMPLETE AUTO&AUTO DIFRNTL WBC COUNT CBC AND DIFFER ENTIAL Timed 03/26/2020 12:28 PM EDT 03/26/2020 04:28:00 PM [facility] GLUCOSE QUANTITATIVE BLOOD XCPT REAGENT STRIP POCT GLUCOSE, KARLO ROBERTS Routine 03/26/2020 8:49 AM EDT 03/26/2020 12:49:00 PM [facility] BLOOD COUNT COMPLETE AUTO&AUTO DIFRNTL WBC COUNT CBC AND DIFFER ENTIAL Timed 03/26/2020 3:57 AM EDT 03/26/2020 07:57:00 AM [facility] BASIC METABOLIC PANEL CALCIUM TOTAL BASIC METABOLIC PANEL Routi ne 03/26/2020 3:57 AM EDT 03/26/2020 07:57:00 AM EDT [facility] GLUCOSE QUANTITATIVE BLOOD XCPT REAGENT STRIP POCT GLUCOSEKARLO Routine 03/25/2020 10:01 PM EDT 03/26/2020 02:01:00 AM [facility] GLUCOSE QUANTITATIVE BLOOD XCPT REAGENT STRIP POCT GLUCOSEKARLO Routine 03/25/2020 9:21 PM EDT 03/26/2020 01:21:00 AM [facility] BLOOD COUNT COMPLETE AUTOMATED CBC AND DIFFERENTIAL Timed 03/25/2020 9:00 PM EDT [facility] XCPT REAGENT STRIP POCT GLUCOSEKARLO Routine 03/25/2020 8:59 PM EDT 03/26/2020 12:59:00 AM [facility] GLUCOSE QUANTITATIVE BLOOD XCPT REAGENT STRIP POCT GLUCOSEKARLO Routine 03/25/2020 5:27 PM EDT 03/25/2020 09:27:00 PM [facility] GLUCOSE QUANTITATIVE BLOOD XCPT REAGENT STRIP POCT GLUCOSEKARLO Routine 03/25/2020 12:51 PM EDT 03/25/2020 04:51:00 PM [facility] BLOOD COUNT COMPLETE AUTO&AUTO DIFRNTL WBC COUNT CBC AND DIFFER ENTIAL Timed 03/25/2020 12:28 PM EDT 03/25/2020 04:28:00 PM [facility] UPPER GI ENDOSCOPY; DX, W/WO SPECIMEN COLLECTION, BRUS PAVEL/WASHING (SEP PROC) UPPER GI ENDOSCOPY; DX, W/WO SPECIMEN COLLECTION, BRUSHING/WASHING (SEP PROC) 03/25/2020 9:09 AM EDT Anemia 03/25/2020 01:09:00 PM EDT - 03/25/2020 02:28:00 PM [facility] COLONOSCOPY, FLEXIBLE, PROXIMAL TO SPLEN IC FLEXURE DX, W/WO SPECIMENS/COLON DECOMP (SEP PROC) COLONOSCOPY, FLEXIBLE, PROXIMAL TO SPLEN IC FLEXURE DX, W/WO SPECIMENS/COLON DECOMP (SEP PROC) 03/25/2020 9:09 AM EDT Anemia 03/25/2020 01:09:00 PM EDT - 03/25/2020 02:28:00 PM [facility] BLOOD COUNT COMPLETE AUTO&AUTO DIFRNTL WBC COUNT CBC AND DIFFER ENTIAL Timed 03/25/2020 2:54 AM EDT 03/25/2020 06:54:00 AM [facility] BASIC METABOLIC PANEL CALCIUM TOTAL BASIC METABOLIC PANEL Routi ne 03/25/2020 2:54 AM EDT 03/25/2020 06:54:00 AM EDT [facility] UPPER GI ENDOSCOPY UPPER GI ENDOSCOPY 03/25/2020 12:00 AM E DT 03/25/2020 04:00:00 AM [facility] Screening colonoscopy (procedure) COLONOSCOPY 03/25/2020 12 :00 AM EDT 03/25/2020 04:00:00 AM [facility] GLUCOSE QUANTITATIVE BLOOD XCPT REAGENT STRIP POCT GLUCOSEKARLO Routine 03/24/2020 8:40 PM EDT 03/25/2020 12:40:00 AM [facility] BLOOD COUNT COMPLETE AUTO&AUTO DIFRNTL WBC COUNT CBC AND DIFFER ENTIAL Timed 03/24/2020 6:37 PM EDT 03/24/2020 10:37:00 PM [facility] GLUCOSE QUANTITATIVE BLOOD XCPT REAGENT STRIP POCT GLUCOSE, KARLO ROBERTS Routine 03/24/2020 5:57 PM EDT 03/24/2020 09:57:00 PM [facility] GLUCOSE QUANTITATIVE BLOOD XCPT REAGENT STRIP POCT GLUCOSE, KARLO ROBERTS Routine 03/24/2020 12:37 PM EDT 03/24/2020 04:37:00 PM [facility] BLOOD COUNT COMPLETE AUTO&AUTO DIFRNTL WBC COUNT CBC AND DIFFER ENTIAL Timed 03/24/2020 10:58 AM EDT 03/24/2020 02:58:00 PM [facility] GLUCOSE QUANTITATIVE BLOOD XCPT REAGENT STRIP POCT GLUCOSE, KARLO ROBERTS Routine 03/24/2020 8:26 AM EDT 03/24/2020 12:26:00 PM [facility] BASIC METABOLIC PANEL CALCIUM TOTAL BASIC METABOLIC PANEL STAT 03/24/2020 3:40 AM EDT 03/24/2020 07:40:00 AM EDT [facility] BLOOD COUNT COMPLETE AUTO&AUTO DIFRNTL WBC COUNT CBC AND DIFFER ENTIAL Timed 03/24/2020 2:31 AM EDT 03/24/2020 06:31:00 AM [facility] BASIC METABOLIC PANEL CALCIUM TOTAL BASIC METABOLIC PANEL Routi ne 03/24/2020 2:31 AM EDT 03/24/2020 06:31:00 AM EDT [facility] GLUCOSE QUANTITATIVE BLOOD XCPT REAGENT STRIP POCT GLUCOSE, KARLO ROBERTS Routine 03/23/2020 9:26 PM EDT 03/24/2020 01:26:00 AM [facility] GLUCOSE QUANTITATIVE BLOOD XCPT REAGENT STRIP POCT GLUCOSE, KARLO ROBERTS Routine 03/23/2020 9:24 PM EDT 03/24/2020 01:24:00 AM [facility] EKG 12-LEAD - CMAXX REPORT EKG 12-LEAD - CMAXX REPORT 03/23/2020 8:07 PM EDT 03/24/2020 12:07:36 AM EDT [facility] EKG 12-LEAD - CMAXX REPORT EKG 12-LEAD - CMAXX REPORT 03/23/2020 8:07 PM EDT 03/24/2020 12:07:36 AM EDT [facility] EKG 12-LEAD - CMAXX REPORT EKG 12-LEAD - CMAXX REPORT 03/23/2020 8:07 PM EDT 03/24/2020 12:07:36 AM EDT [facility] EKG 12-LEAD EKG 12-LEAD Routine 03/23/2020 8:07 PM EDT 03/24/2020 12:07:36 AM [facility] BLOOD COUNT COMPLETE AUTO&AUTO DIFRNTL WBC COUNT CBC AND DIFFER ENTIAL Timed 03/23/2020 6:49 PM EDT 03/23/2020 10:49:00 PM [facility] GLUCOSE QUANTITATIVE BLOOD XCPT REAGENT STRIP POCT GLUCOSE, DOC KED Routine 03/23/2020 6:05 PM EDT 03/23/2020 10:05:00 PM [facility] GLUCOSE QUANTITATIVE BLOOD XCPT REAGENT STRIP POCT GLUCOSE, DOC KED Routine 03/23/2020 12:51 PM EDT 03/23/2020 04:51:00 PM [facility] GLUCOSE QUANTITATIVE BLOOD XCPT REAGENT STRIP POCT GLUCOSE, DOC KED Routine 03/23/2020 9:14 AM EDT 03/23/2020 01:14:00 PM [facility] BLOOD COUNT COMPLETE AUTOMATED CBC Routine 03/23/2020 8:49 A M EDT 03/23/2020 12:49:00 PM [facility] BASIC METABOLIC PANEL CALCIUM TOTAL BASIC METABOLIC PANEL Routi ne 03/23/2020 8:49 AM EDT 03/23/2020 12:49:00 PM EDT [facility] BLOOD COUNT COMPLETE AUTO&AUTO DIFRNTL WBC COUNT CBC AND DIFFER ENTIAL Timed 03/23/2020 6:06 AM EDT 03/23/2020 10:06:00 AM [facility] TRANSFUSE RBC (ONCE) TRANSFUSE RBC (ONCE) Routine 03/23/2020 4:40 AM EDT 03/23/2020 08:40:57 AM [facility] BLOOD COUNT COMPLETE AUTO&AUTO DIFRNTL WBC COUNT CBC AND DIFFER ENTIAL Timed 03/22/2020 11:15 PM EDT 03/23/2020 03:15:00 AM [facility] GLUCOSE QUANTITATIVE BLOOD XCPT REAGENT STRIP POCT GLUCOSE, KARLO ROBERTS Routine 03/22/2020 9:28 PM EDT 03/23/2020 01:28:00 AM [facility] GLUCOSE QUANTITATIVE BLOOD XCPT REAGENT STRIP POCT GLUCOSE, KARLO ROBERTS Routine 03/22/2020 5:43 PM EDT 03/22/2020 09:43:00 PM [facility] GLUCOSE QUANTITATIVE BLOOD XCPT REAGENT STRIP POCT GLUCOSE, KARLO ROBERTS Routine 03/22/2020 1:56 PM EDT 03/22/2020 05:56:00 PM [facility] BLOOD COUNT COMPLETE AUTO&AUTO DIFRNTL WBC COUNT CBC AND DIFFER ENTIAL Timed 03/22/2020 12:54 PM EDT 03/22/2020 04:54:00 PM [facility] MRI ABDOMEN W/O CONTRAST MATERIAL MR BILIARY TREE MRCP [id number] Ro manuelne 03/22/2020 11:27 AM EDT 03/22/2020 03:27:20 PM [facility] GLUCOSE QUANTITATIVE BLOOD XCPT REAGENT STRIP POCT GLUCOSE, KARLO ROBERTS Routine 03/22/2020 7:44 AM EDT 03/22/2020 11:44:00 AM [facility] BLOOD COUNT COMPLETE AUTO&AUTO DIFRNTL WBC COUNT CBC AND DIFFER ENTIAL Timed 03/22/2020 3:30 AM EDT 03/22/2020 07:30:00 AM [facility] COMPREHENSIVE METABOLIC PANEL COMPREHENSIVE METABOLIC PANEL Delonte rach 03/22/2020 3:30 AM EDT 03/22[facility]T REAGENT STRIP POCT GLUCOSE, KARLO ROBERTS Routine 03/22/2020 3:19 AM EDT 03/22/2020 07:19:00 AM [facility] GLUCOSE QUANTITATIVE BLOOD XCPT REAGENT STRIP POCT GLUCOSE, KARLO ROBERTS Routine 03/21/2020 11:29 PM EDT 03/22/2020 03:29:00 AM [facility] BLOOD COUNT COMPLETE AUTO&AUTO DIFRNTL WBC COUNT CBC AND DIFFER ENTIAL Timed 03/21/2020 8:20 PM EDT 03/22/2020 12:20:00 AM [facility] GLUCOSE QUANTITATIVE BLOOD XCPT REAGENT STRIP POCT GLUCOSE, KARLO ROBERTS Routine 03/21/2020 5:21 PM EDT 03/21/2020 09:21:00 PM [facility] ACUTE GASTROINTESTINAL BLOOD LOSS IMAGING NM GI BLOOD LOSS IMAG ING [id number] STAT 03/21/2020 4:00 PM EDT 03/21/2020 08:00:03 PM [facility] BLOOD COUNT COMPLETE AUTOMATED CBC STAT 03/21/2020 1:56 P M EDT 03/21/2020 05:56:00 PM [facility] SODIUM URINE SODIUM, URINE, RANDOM Routine 03/21/2020 12:45 PM EDT 03/21/2020 04:45:00 PM [facility] GLUCOSE QUANTITATIVE BLOOD XCPT REAGENT STRIP POCT GLUCOSE, DOC KED Routine 03/21/2020 12:41 PM EDT 03/21/2020 04:41:00 PM [facility] LACTATE LACTIC ACID LEVEL, PLASMA Routine 03/21/2020 11:23 AM EDT 03/21/2020 03:23:00 PM [facility] OSMOLALITY BLOOD OSMOLALITY,BLOOD Routine 03/21/2020 11:02 AM EDT 03/21/2020 03:02:00 PM [facility] GLUCOSE QUANTITATIVE BLOOD XCPT REAGENT STRIP POCT GLUCOSE, DOC KED Routine 03/21/2020 7:58 AM EDT 03/21/2020 11:58:00 AM [facility] CT ABDOMEN W/CONTRAST MATERIAL CT ABDOMEN WITH CONTRAST [id number] S TAT 03/21/2020 6:05 AM EDT 03/21/2020 10:05:00 AM EDT [facility] CONFIRMATORY TYPE CONFIRMATORY TYPE Routine 03/21/2020 5:24 AM EDT 03/21/2020 09:24:00 AM [facility] BLOOD COUNT COMPLETE AUTO&AUTO DIFRNTL WBC COUNT CBC AND DIFFER ENTIAL STAT 03/21/2020 5:24 AM EDT 03/21/2020 09:24:00 AM [facility] COMPREHENSIVE METABOLIC PANEL COMPREHENSIVE METABOLIC PANEL Rou rach 03/21/2020 5:24 AM EDT 03/21/2020 09:24:00 AM EDT [facility] EKG 12-LEAD - CMAXX REPORT EKG 12-LEAD - CMAXX REPORT 03/21/2020 2:25 AM EDT 03/21/2020 06:25:01 AM EDT [facility] EKG 12-LEAD - CMAXX REPORT EKG 12-LEAD - CMAXX REPORT 03/21/2020 2:25 AM EDT 03/21/2020 06:25:01 AM EDT [facility] EKG 12-LEAD EKG 12-LEAD Routine 03/21/2020 2:25 AM EDT 03/21/2020 06:25:01 AM [facility] DRUGS OF ABUSE, URINE DRUGS OF ABUSE, URINE Routine 03/21/2020 12 :37 AM EDT 03/[facility] HGB DETER IA QUAL FECES 1-3 FECAL OCCULT BLOOD, LOWER GI (HEMOCCULT-ICT), FIT TESTING, Routine 03/21/2020 12:37 AM EDT 03/21/2020 04:37:00 AM [facility] IAAD EIA HIV-1 AG W/HIV-1&HIV-2 ANTBDY SINGLE HIV AG AB COMBO S CREEN Routine 03/21/2020 12:22 AM EDT 03/21/2020 04:22:00 AM [facility] ETHYL ALCOHOL LEVEL ETHYL ALCOHOL LEVEL Routine 03/21/2020 12:22 AM EDT 03/21/2020 04:22:00 AM [facility] HEPATITIS C ANTIBODY HEPATITIS C ANTIBODY Routine 03/21/2020 12:22 AM EDT 03/21/2020 04:22:00 AM [facility] IADNA HEPATITIS C QUANTIFICATION HEPATITIS C RNA, QUANTITATIVE, PCR Routine 03/21/2020 12:22 AM EDT 03/21/2020 04:22:00 AM [facility] PROTHROMBIN TIME PROTIME INR Routine 03/21/2020 12:22 AM EDT 03/21/2020 04:22:00 AM [facility] BLOOD COUNT COMPLETE AUTO&AUTO DIFRNTL WBC COUNT CBC AND DIFFER ENTIAL Routine 03/21/2020 12:22 AM EDT 03/21/2020 04:22:00 AM [facility] BLOOD TYPING ABO TYPE AND CROSSMATCH Routine 03/21/2020 12:22 AM ED T 03/21/2020 04:22:00 AM [facility] PHOSPHORUS INORGANIC PHOSPHORUS LEVEL Routine 03/21/2020 12:22 AM E DT 03/21/2020 04:22:00 AM [facility] MAGNESIUM MAGNESIUM LEVEL Routine 03/21/2020 12:22 AM EDT 03/21/2020 04:22:00 AM [facility] LIPASE LIPASE LEVEL Routine 03/21/2020 12:22 AM EDT 03/21/2020 04:22:00 AM [facility] LACTATE LACTIC ACID LEVEL, PLASMA Routine 03/21/2020 12:22 AM EDT 03/21/2020 04:22:00 AM [facility] CREATINE KINASE TOTAL CK Routine 03/21/2020 12:22 AM EDT 03/21/2020 04:22:00 AM [facility] COMPREHENSIVE METABOLIC PANEL COMPREHENSIVE METABOLIC PANEL Rou rach 03/21/2020 12:22 AM EDT 03/21/2020 04:22:00 AM EDT [facility] GLUCOSE QUANTITATIVE BLOOD XCPT REAGENT STRIP POCT GLUCOSE, DOC KED Routine 03/21/2020 12:19 AM EDT 03/21/2020 04:19:00 AM [facility] Influenza A+B 12/09/2019 12:00:00 AM EDT eCW1 ([facility]) Office Visit, Est Pt., Level 2 FC 11/14/2019 12:00:00 AM EST eCW1 ([facility]) Office Visit, Est Pt., Level 4 PC 11/14/2019 12:00:00 AM EST eCW1 ([facility]) Office Visit, Est Pt., Level 4 FC 10/24/2019 12:00:00 AM EST eCW1 ([facility]) ELECTROCARDIOGRAM REPORT 10/24/2019 12:00:00 AM EST eCW1 ([facility]) ELECTROCARDIOGRAM TRACING 10/24/2019 12:00:00 AM EST eCW1 ([facility]) Results ID Date Data Source [id number] 10/21/2020 12:36:00 PM EST [facility] Name Value Range Interpretation Code Description Data Hazel rce(s) Supporting Document(s) SARS coronavirus 2 RNA [Presence] in Res piratory specimen by BURTON with probe detection NEGATIVE [facility] This lab was ordered by [facility] a nd reported by [facility]. ID Date Data Source ACETONE/KETONE 10/08/2020 12:00:00 AM EST eCW1 ([facility]) Name Value Range Interpretation Code Description Data Hazel rce(s) Supporting Document(s) 1.04 <2.81 ACETONE/KETONE eCW1 ([facility]) ID Date Data Source ETHYL ALCOHOL (ETHANOL) 10/08/2020 12:00:00 AM EST eCW1 ([facility]) Name Value Range Interpretation Code Description Data Hazel rce(s) Supporting Document(s) < 0.003 0.000-0.010 ETHYL ALCOHOL (ETHANOL) eCW1 ([facility]) ID Date Data Source Comprehensive Metabolic Profile (CMP) 10/08/2020 12:00:00 AM EST eCW1 ([facility]) Name Value Range Interpretation Code Description Data Hazel rce(s) Supporting Document(s) 531 70-100 GLUCOSE, FASTING eCW1 ([facility]) 134 136-145 SODIUM LEVEL eCW1 ([facility]) 10 7-18 BLOOD UREA NITROGEN eCW1 ([facility]) 1.20 0.70-1.30 CREATININE FOR GFR eCW1 ([facility]) > 60.0 >56 GLOMERULAR FILTRATION RATE eCW 1 ([facility]) 3.8 3.5-5.1 POTASSIUM SERUM eCW1 ([facility]) 100 98-107 CHLORIDE LEVEL eCW1 ([facility]) 7.8 8.5-10.1 CALCIUM LEVEL eCW1 ([facility]) 31 21-32 CARBON DIOXIDE LEVEL eCW1 ([facility]) 165 45-117 ALKALINE PHOSPHATASE eCW1 ([facility]) 24 12-78 ALT/SGPT eCW1 ([facility]) 0.3 0.2-1.0 BILIRUBIN,TOTAL eCW1 ([facility]) 16 7-37 AST/SGOT eCW1 ([facility]) 1.8 3.2-5.2 ALBUMIN eCW1 ([facility]) 4.7 6.4-8.2 TOTAL PROTEIN eCW1 ([facility]) 0.6 ALBUMIN/GLOBULIN RATIO eCW1 ([facility]) ID Date Data Source C REACTIVE PROTEIN QUANTITATIV (At [facility]) 10/05/2020 12:00 :00 AM EST eCW1 ([facility]) Name Value Range Interpretation Code Description Data Hazel rce(s) Supporting Document(s) 1.05 0.00-0.30 C REACTIVE PROTEIN QUANTI TATIV eCW1 ([facility]) ID Date Data Source MAGNESIUM LEVEL 10/05/2020 12:00:00 AM EST eCW1 ([facility]) Name Value Range Interpretation Code Description Data Hazel rce(s) Supporting Document(s) 1.6 1.8-2.4 MAGNESIUM LEVEL eCW1 ([facility]) ID Date Data Source FERRITIN 10/05/2020 12:00:00 AM EST eCW1 ([facility]) Name Value Range Interpretation Code Description Data Hazel rce(s) Supporting Document(s) 21 56-388 FERRITIN eCW1 ([facility]) ID Date Data Source IRON (FE) 10/05/2020 12:00:00 AM EST eCW1 ([facility]) Name Value Range Interpretation Code Description Data Hazel rce(s) Supporting Document(s) 17 71-175 IRON (FE) eCW1 ([facility]) ID Date Data Source LIPASE 10/05/2020 12:00:00 AM EST eCW1 ([facility]) Name Value Range Interpretation Code Description Data Hazel rce(s) Supporting Document(s) 44 04-393 LIPASE eCW1 ([facility]) ID Date Data Source CBC with Differential 10/05/2020 12:00:00 AM EST eCW1 ([facility]) Name Value Range Interpretation Code Description Data Hazel rce(s) Supporting Document(s) 4.5 4.0-10.0 WHITE BLOOD COUNT eCW1 ([facility]) 3.02 4.30-6.10 RED BLOOD COUNT eCW1 ([facility]) 9.3 13.5-17.5 HEMOGLOBIN eCW1 ([facility]) 94.4 80.0-96.0 MEAN CORPUSCULAR VOLUME e CW1 ([facility]) 28.5 42.0-52.0 HEMATOCRIT eCW1 ([facility]) 30.8 27.0-33.0 MEAN CORPUSCULAR HEMOGLOB IN eCW1 ([facility]) 66.5 36.0-66.0 NEUTROPHILS % eCW1 ([facility]) 15.9 11.5-14.5 RED CELL DISTRIBUTION WID TH eCW1 ([facility]) 32.6 32.0-36.5 MEAN CORPUSCULAR HGB CONC eCW1 ([facility]) 393 150-450 PLATELET COUNT, AUTOMATED eCW1 ([facility]) 1.1 0.0-3.0 EOS % eCW1 ([facility]) 8.2 0.0-5.0 MONO % eCW1 ([facility]) 22.5 24.0-44.0 LYMPH % eCW1 ([facility]) 1.5 0.0-1.0 BASO % eCW1 ([facility]) 1.0 1.5-5.0 LYMPH # eCW1 ([facility]) 3.0 1.5-8.5 NEUTROPHILS # eCW1 ([facility]) 0.1 0.0-0.2 BASO # eCW1 ([facility]) 0.4 0.0-0.8 MONO # eCW1 ([facility]) 0.1 0.0-0.5 EOS # eCW1 ([facility]) ID Date Data Source AMYLASE 10/05/2020 12:00:00 AM EST eCW1 ([facility]) Name Value Range Interpretation Code Description Data Hazel rce(s) Supporting Document(s) 19 25-115 AMYLASE eCW1 ([facility]) ID Date Data Source [id number] 09/19/2020 01:19:00 AM EST [facility] Name Value Range Interpretation Code Description Data Hazel rce(s) Supporting Document(s) SARS coronavirus 2 RNA [Presence] in Res piratory specimen by BURTON with probe detection NEGATIVE [facility] This lab was ordered by [facility] a nd reported by [facility]. ID Date Data Source [id number] 09/07/2020 12:00:00 AM EST eCW1 ([facility]) Name Value Range Interpretation Code Description Data Hazel rce(s) Supporting Document(s) Hemoglobin A1c/Hemoglobin.total in Blood 7.4 HEMOGLOBIN A1c eCW1 ([facility]) ID Date Data Source [id number] 08/27/2020 11:52:55 AM EST [facility] Name Value Range Interpretation Code Description Data Hazel rce(s) Supporting Document(s) Progress Note [facility] WSUBVt0bTeKDQoUa73/ROUpoQSAwz3QgPLleHVb4IVssUAXfN7IoCYB8qG0cYUY2HMjCEyKkYoYeAmK8 m [file] leather sponger+fLF+exZGPrCoMCg4gYXEtbC5EgPYaPbrGtjhUmSA7YqdNeALAvz0SgNsuBoNKhAlkFOTTetHSb3e [file] canvas goods fabricator+JdE3asxCSYrETmq1QbB2wFxEMFrndLDrrzuK7E [file] AyMTEwMyAwMDAwMCBuDQowMDAwMDMyNTMzIDAwMDAw HJ8QFoFyHBAzObJ9IQrmUYLtWMWfut2VLEJdLARmBgV0UkNpEJEfPZOtWFpePHVfRHMdNaU1YNBmEVVo OU2SYxNkXJCnXwZ7ZbEbSKAfJYBnpd2PHANcGDDvSATeNuJwTDRdZJHfBVxmJDJfDZT8HLt1RRQyZQQm OG8URgIuZQKeLyO6QkFhLDXzOAHgtm7HZUEfBDMpLC Q0UEIfXOKbQVPeVOvcYVFoBHD0GhX2HGBjFNGmMN9NLnPjTHPyKhQ5WjQaTRBhNFQvzg2MUKRiFRFkEk p3VKSyLPJuICMbVBi7iyBpvHLgMKz6HE6FL5LwcsRpZtFIEq1So481CNJeXGAlMa6ZV5zpSx6xSFCgOE NXZc7FZWd9MDycKXK8IRT9KTNkTdG5GPObWiAvXfC3 YqOcYUXwB9L+LQbzHMJ7MxvhXgykPoC8LBrlVjJoPFS8XOOaUMUhQfOnVb0zAUOEZr0+DQpzdGFydHhy UAGLSgO3HSB8AGgmVZWZKo4A ID Date Data Source [id number] 08/22/2020 12:43:00 PM EST [facility] Name Value Range Interpretation Code Description Data Hazel rce(s) Supporting Document(s) SARS coronavirus 2 RNA [Presence] in Res piratory specimen by BURTON with probe detection [facility] This lab was ordered by [facility] a nd reported by [facility]. ID Date Data Source [id number] 07/31/2020 12:17:07 PM EST [facility] Name Value Range Interpretation Code Description Data Hazel rce(s) Supporting Document(s) Progress Note [facility] BNNTIi6tHwUYCpMc64/RBFbgTBEql9ZiFCrfGDh8NFpzWPEeC3IpMVS1pK6tTOB1JRtCJsGpWvTcRIMc lbm [file] OQTqWhK4JMYvCaCqTMQ+US0oBFj+Ce5Tl5MuqsT5jhRqDBvvNtIeGQ5JFZCHV8VBYe== ID Date Data Source [id number] 07/13/2020 02:25:35 PM [facility] Current Medications: BD INSULIN SYR ULTR [...] rce(s) Supporting Document(s) ID Date Data Source [id number] 05/13/2020 03:14:01 PM T [facility] Name Value Range Interpretation Code Description Data Hazel rce(s) Supporting Document(s) Progress Note [facility] OHKKAz5oJjNCDfMx44/FWLqlCASjy0NjTFtkSJh2YGwkQOLxK5MtPKE9yS9jTFX7JFfBBpFbXjEpVMIw lbm [file] SfLgDR6XPMc= ID Date Data Source [id number] 04/30/2020 12:48:34 PM EDT [facility] [...] rce(s) Supporting Document(s) ID Date Data Source [id number] 03/28/2020 07:03:33 PM EDT [facility] Name Value Range Interpretation Code Description Data Hazel rce(s) Supporting Document(s) Discharge Summary [facility] AJRIOd4rFzVTYoAz13/SIZcsNHKvu4MpABhvYQr6ZYafJUWxI1ZkUOI8eD1eQSY1HIgXToIhIrRcOuV1 lbm [file] MQM4CuX0OVEoPAzbVvLqPC9LBi7AXkS8HPA2nIFtQc1DUcx0GrpNDxDzAP2GYMq= ID Date Data Source [id number] 03/27/2020 12:29:26 PM EDT [facility] Name Value Range Interpretation Code Description Data Hazel rce(s) Supporting Document(s) Glucose [Mass/volume] in Capillary blood by Glucometer 85 mg/dL 70- 140 [facility] ID Date Data Source [id number] 03/27/2020 11:51:15 AM EDT [facility] Name Value Range Interpretation Code Description Data Hazel rce(s) Supporting Document(s) Consultation [facility] PZNSSi5mJuDIUmSn73/VBRjpVCIau3PmTLwiDVt6KNcsJPXpX0IbPVL1nZ0gZYY1AOmKBkXjGxHrWuR0 lbm [file] I9PyXiZzAGXdTLN3Sf8rIHRTAj1+KLiygKUjcZhqBSJNAcvdNdHOYeVuAW8GZAg= ID Date Data Source [id number] 03/27/2020 08:59:40 AM EDT [facility] Name Value Range Interpretation Code Description Data Hazel rce(s) Supporting Document(s) Glucose [Mass/volume] in Capillary blood by Glucometer 208 mg/dL 70- 140 [facility] ID Date Data Source [id number] 03/27/2020 08:40:39 AM EDT [facility] Name Value Range Interpretation Code Description Data Hazel rce(s) Supporting Document(s) Progress Note [facility] PRFWRg4yUaTLRiZy44/ARFshVNJri9GdPXfuKZg6VIulCRCyX0SmTKS4yS0oOIH1TIxFYwIkNoMoFwV8 lbm [file] Sv6FiSwbmkR31TZ/JZDa+k4Zdp78dNaHbkM0mUDn6O+5Bwq9+n0BzpPX1D/Martín+lxty6keVCRgitj9ps YJExNV0ui+5+hVv1cNKRingzA3z2iy3RSAUo3C/gonsalo [file] VP8IEx2PDtO2GXH4wBZdCj4ODaCsHwyEYqKjVI3HBVg= ID Date Data Source [id number] 03/27/2020 04:21:21 AM T [facility] Name Value Range Interpretation Code Description Data Hazel rce(s) Supporting Document(s) Bicarbonate [Moles/volume] in Serum 27 mmol/L [facility] Chloride [Moles/volume] in Serum or Plasma 99 mmol/L 98-107 [facility] Creatinine [Mass/volume] in Serum or Plasma 1.10 mg/dL 0.70-1.20 [facility] Glucose [Mass/volume] in Serum or Plasma 186 mg/dL 70-140 H [facility] Potassium [Moles/volume] in Serum or Plasma 3.5 mmol/L 3.4-5.1 [facility] Sodium [Moles/volume] in Serum or Plasma 137 mmol/L 136-145 [facility] Urea nitrogen [Mass/volume] in Serum or Plasma 6 mg/dL 6-20 [facility] Anion gap 3 in Serum or Plasma 11 mmol/L 8-15 [facility] Osmolality of Serum or Plasma by calculation 286 mosm/kg 275-300 [facility] Creatinine/Urea nitrogen [Mass Ratio] in Serum or Plasma 6 [facility] Calcium [Mass/volume] in Serum or Plasma 8.4 mg/dL 8.6-10.0 L [facility] Glomerular filtration rate/1.73 sq M pre dicted among non-blacks [Volume Rate/Area] in Serum or Plasma by Creatinine-based formula (MDRD) 74 mL/min/1.73m2 >60 [facility] Glomerular filtration rate/1.73 sq M pre dicted among blacks [Volume Rate/Area] in Serum or Plasma by Creatinine-based formula (MDRD) 86 mL/min/1.73m2 >60 [facility] ID Date Data Source [id number] 03/27/2020 04:21:41 AM EDT [facility] Name Value Range Interpretation Code Description Data Hazel rce(s) Supporting Document(s) Leukocytes [#/volume] in Blood by Automated count 3.9 10*3/uL 4-10 L [facility] Erythrocytes [#/volume] in Blood by Automated count 3.23 10*6/uL 4.6- 6.1 [facility] Hemoglobin [Mass/volume] in Blood 10.3 g/dL 13.5-18 L [facility] Hematocrit [Volume Fraction] of Blood by Automated count 30.6 % 4 1-53 [facility] Erythrocyte mean corpuscular volume [Entitic volume] by Auto mated count 94.8 fL 80-96 [facility] Erythrocyte mean corpuscular hemoglobin [Entitic mass] by Automated count 32.0 pg 27-33 [facility] Erythrocyte mean corpuscular hemoglobin concentration [Mass/volume] by Automated count 33.7 g/dL 32.0-[facility] width [Ratio] by Automated count 16.6 % 11.5-14.5 H [facility] Platelets [#/volume] in Blood by Automated count 228 10*3/uL 150-400 [facility] Differential cell count method - Blood [facility] Neutrophils/100 leukocytes in Blood by Automated count 36 % [facility] Lymphocytes/100 leukocytes in Blood by Automated count 47 % [facility] Monocytes/100 leukocytes in Blood by Automated count 8 % [facility] Eosinophils/100 leukocytes in Blood by Automated count 8 % [facility] Basophils/100 leukocytes in Blood by Automated count 1 % [facility] Neutrophils [#/volume] in Blood by Automated count 1.39 10*3/uL 1.8-7 .0 L [facility] Lymphocytes [#/volume] in Blood by Automated count 1.83 10*3/uL 1.2-4 .0 [facility] Monocytes [#/volume] in Blood by Automated count 0.32 10*3/uL 0-0.8 [facility] Eosinophils [#/volume] in Blood by Automated count 0.31 10*3/uL 0-0.5 [facility] Basophils [#/volume] in Blood by Automated count 0.05 10*3/uL 0-0.2 [facility] Nucleated erythrocytes/100 leukocytes [Ratio] in Blood by Automated count 0 /100{WBCs} 0-0 [facility] ID Date Data Source [id number] 03/26/2020 10:46:49 PM EDT [facility] Name Value Range Interpretation Code Description Data Hazel rce(s) Supporting Document(s) Glucose [Mass/volume] in Capillary blood by Glucometer 272 mg/dL 70- 140 [facility] ID Date Data Source [id number] 03/26/2020 10:32:38 PM EDT [facility] Value Range Interpretation Code Description Data Hazel rce(s) Supporting Document(s) Glucose [Mass/volume] in Capillary blood by Glucometer 253 mg/dL 70- 140 [facility] ID Date Data Source [id number] 03/26/2020 05:04:06 PM EDT [facility] Value Range Interpretation Code Description Data Hazel rce(s) Supporting Document(s) Glucose [Mass/volume] in Capillary blood by Glucometer 170 mg/dL 70- 140 [facility] ID Date Data Source [id number] 03/26/2020 04:15:50 PM EDT [facility] CT ENTEROGRAPHY [id number] RESULTInterpr eted by:Estelle Chen MDINDICATION: Abdominal pain, [...] Name Value Range Interpretation Code Description Data [facility]) Supporting Document(s) ID Date Data Source [id number] 03/26/2020 02:32:32 PM [facility] Name Value Range Interpretation Code Description Data [facility](s) Supporting Document(s) [facility] CHKPAo3qZsMXHbKp48/YZFnsFFOgq9NdUMyvUJj1AWdaITAkC6OrUGB3xM9tBEQ8QKbBOdBiFjDiGrV9 lbm [file] terry cloth cutter hand+WqPMi73A8L/YPigYmstH674rRAEhzF+LHLPnOMA0ngSVzWCsGJaZ59o3SvHjRhwKZKXXhOPiKHz3D [file] AgICAgICAgICAgICAgICAgICAgICAgICAgICAgICAgICAgICAgICAgICAgICAgICAgICAgICAgICAgIC AgICAgICAgICAgICAgICAgICAgICAgICAgICAgICAg ICAgDQogICAgICAgICAgICAgICAgICAgICAgICAgICAgICAgICAgICAgICAgICAgICAgICAgICAgICAg ICAgICAgICAgICAgICAgICAgICAgICAgICAgICAgICAgICAgICAgICAgICAgDQogICAgICAgICAgICAg ICAgICAgICAgICAgICAgICAgICAgICAgICAgICAgIC AgICAgICAgICAgICAgICAgICAgICAgICAgICAgICAgICAgICAgICAgICAgICAgICAgICAgICAgDQogIC AgICAgICAgICAgICAgICAgICAgICAgICAgICAgICAgICAgICAgICAgICAgICAgICAgICAgICAgICAgIC AgICAgICAgICAgICAgICAgICAgICAgICAgICAgICAg ICAgICAgDQogICAgICAgICAgICAgICAgICAgICAgICAgICAgICAgICAgICAgICAgICAgICAgICAgICAg ICAgICAgICAgICAgICAgICAgICAgICAgICAgICAgICAgICAgICAgICAgICAgICAgDQogICAgICAgICAg ICAgICAgICAgICAgICAgICAgICAgICAgICAgICAgIC AgICAgICAgICAgICAgICAgICAgICAgICAgICAgICAgICAgICAgICAgICAgICAgICAgICAgICAgICAgDQ ogICAgICAgICAgICAgICAgICAgICAgICAgICAgICAgICAgICAgICAgICAgICAgICAgICAgICAgICAgIC AgICAgICAgICAgICAgICAgICAgICAgICAgICAgICAg ICAgICAgICAgDQogICAgICAgICAgICAgICAgICAgICAgICAgICAgICAgICAgICAgICAgICAgICAgICAg ICAgICAgICAgICAgICAgICAgICAgICAgICAgICAgICAgICAgICAgICAgICAgICAgICAgDQogICAgICAg ICAgICAgICAgICAgICAgICAgICAgICAgICAgICAgIC AgICAgICAgICAgICAgICAgICAgICAgICAgICAgICAgICAgICAgICAgICAgICAgICAgICAgICAgICAgIC AgDQogICAgICAgICAgICAgICAgICAgICAgICAgICAgICAgICAgICAgICAgICAgICAgICAgICAgICAgIC AgICAgICAgICAgICAgICAgICAgICAgICAgICAgICAg BRGvHCJmYZQdNNDwNEy9P1oiJNAaFDJhFG8lSAo4Wl3+DKvQIfWkQVG5ctLbrN4RLY5qb1IuPHoyOOIm y8KaBFu2KD7EBSUcCFphOW7FBTnbet5HSTJnREIcgOHEr9ouEzEzCTS5DEAcNdicSI8LEQJfF4nmxmDi IDUgMCBSIDcgMCBSIDkgMCBSIDExIDAgUiAxMyAwIF HsRILjLZEFYIK0XRYwIqAhAYqbUD5Vq3HdoJS5GXb+Ig1DAY6ox4VzHGetDOQaQX4dsj8FPJhIIpCfF7 LcieY6OBR5GRLrSx0PUTOfTXGodZGiHAGmYMBPUdKmF6VlsZ68WSPVIn0+PKikbiBzEmuBCuO6IQAxv5 JkQWx5TK0MISMyDRy0vEVhS89bu0DuhBAzBpxhCPwr hpXdPCDWCGTnwUWineglAhUkNHPaHf0qTo9kUKOqGYX3AeN1MQGDWM8EUTKdQIZnhHTnMBBoEVTLYB9S SNtwXRU6RFYjdzBlaPMqOTkoHY3RFMZcozVrCoLcXUMJDPj+Vg8IPN4hu8JlKGpzHbXiKU7blz0JLImD HwCoN3K5aLOjL3O3UMfpDd4TABSuUPZhRhGpRFGRWP wdMQ9LNJ0heoQ0IO9MsFPrMZGkUEIoiEObSQt9V34buHPmWXhhSW7UOLV+Bee+Ik8SBBZzQTPgHJCbUx SxFHQNSbYmR6RgI1KOc8LyN4QfEZ74pClznvHwKUgbGJ7TGA8kAWNbESRCXI8ShLNgbY6apuMuWZSbJD OCFwCyR77sgBUiNTOfWAYsHUBjLt0GSTQfL5LezxYs vOhcblXpVSFeIBLMQM3FOYgjxmMzhQSxgMvvWU38jVwmSY0IJb7YBhPrNP0bxq4RjSOxFm9SDWPrWm2N FNVjWPAoUQPjUYV3NROzRiCpQBtpUTCcBTJfLOH2DJZiRKFrWS6DMiOoUJUgTyX4TJHjCYRvIPCifd3P TDAjLEYvPAFhRpNlKOGwCSGkWOhfIBSwIUTjFMA7YX RmVGAwQE6BEyQbFDUbGLH1HrphDHGqXVNxhf1TCGLbQHXvTshbRoNyOLOpNUFfGZzfYPScAXY3DHKxJH FwDKWtHF5UKnFqHSTrONuaUfkvYQXgWICqnl5BFWVlURLhKIZ6OHVuOEOaANFwGMwdIMJaMSW7QHy0IQ ZwLNHzVG9CUuCeWFKhCHMxABNrWVDmIYQyzm2UYPTn BGTdEkX5XyHyTQJqRQYgVHozKVDgZHU0BLYlTISqQHDlEC6LNfMrLWOzTSU3VAhyTEKuSUTyjh2BOGHg CTWtLfH4EuUbEAEtTCRaOGejLQRxQBA4SxGiNWUeDCGbZE0SFwSqPAQcKhApTmkhGTRvOCLhpx7EUJDr SJGnTEZ3MVIvHPVpYODqNSeqVTVaSXKjEUG7DVEmCT FkTI4IFdWmKMZdXeZ3YUZqDNMwKYTkga1RKWPsODAdZYveGGVkYYUrLGWlUUbtIQFdDKAfHspaDHJvWZ SkHX3VBoIwSSPaWaZ3TGHrHAPwDGRzqw2JQBWhESUwAjM5TlZqEDGgYLEvZVudRUJmFSL7DQR6KABeNY XiJC3PHhIbMUQjHbR6MqUeHXWfDLCkyt4QTMWkHJNv LFI0CKOcFFBdSELbVVkgNHGpCDK4SzR2QAKjWVZeAT2RSfDpGHUdTrB1XdYoNYWcBQIrhe4NMSJaYLXs EsSjCZRiASVsYSYjNQeyGHEjAEC2CdYgXJGlEQSaJB4UMyTvETZkYoB6CWDoFBWlEKWgxv1JDCHoLPPd HqR3HeHzKTNfCZUqZZjyWYXvRLP6Dnb2BRPxRWHwJK 0WDhRdXWVcZzm7VSUoCSOuKRIeiz0FEEZvTWXkMOd3CSBzTRBmHABnMKn1zuQflNFhBJy3FT2MQ3Jqwe FpUlbXFq9Ox214HGK6PEZeOd6NS9xmNc5mGKPfMOUPWs6JFVg2BDE3N3AwSeRhX3DoKHTzLScrLto7CT M7XKEsDUZrGZd+HId2DoUbPrKsHJTgBiYiUlQwChXm BEKmHWDjMiGfMzYeIO9jBYHZJb3+XNisgECdbW[id number] ID Date Data Source [id number] 03/26/2020 12:44:13 PM [facility] Name Value Range Interpretation Code Description Data Hazel rce(s) Supporting Document(s) Glucose [Mass/volume] in Capillary blood by Glucometer 198 mg/dL 70- 140 H [facility] ID Date Data Source [id number] 03/26/2020 01:02:03 PM [facility] Name Value Range Interpretation Code Description Data Hazel rce(s) Supporting Document(s) Leukocytes [#/volume] in Blood by Automated count 2.9 10*3/uL 4-10 L [facility] Erythrocytes [#/volume] in Blood by Automated count 2.70 10*6/uL 4.6- 6.1 L [facility] Hemoglobin [Mass/volume] in Blood 8.7 g/dL 13.5-18 L [facility] Hematocrit [Volume Fraction] of Blood by Automated count 25.7 % 4 1-53 L [facility] Erythrocyte mean corpuscular volume [Entitic volume] by Auto mated count 95.1 fL 80-96 [facility] Erythrocyte mean corpuscular hemoglobin [Entitic mass] by Automated count 32.3 pg 27-33 [facility] Erythrocyte mean corpuscular hemoglobin concentration [Mass/volume] by Automated count 34.0 g/dL 32.0-36.0 [facility] width [Ratio] by Automated count 16.9 % 11.5-14.5 H [facility] Platelets [#/volume] in Blood by Automated count 178 10*3/uL 150-400 [facility] Differential cell count method - Blood [facility] Neutrophils/100 leukocytes in Blood by Automated count 47 % [facility] Lymphocytes/100 leukocytes in Blood by Automated count 35 % [facility] Monocytes/100 leukocytes in Blood by Automated count 12 % [facility] Eosinophils/100 leukocytes in Blood by Automated count 5 % [facility] Basophils/100 leukocytes in Blood by Automated count 1 % [facility] Neutrophils [#/volume] in Blood by Automated count 1.37 10*3/uL 1.8-7 .0 L [facility] Lymphocytes [#/volume] in Blood by Automated count 1.01 10*3/uL 1.2-4 .0 L [facility] Monocytes [#/volume] in Blood by Automated count 0.35 10*3/uL 0-0.8 [facility] Eosinophils [#/volume] in Blood by Automated count 0.16 10*3/uL 0-0.5 [facility] Basophils [#/volume] in Blood by Automated count 0.03 10*3/uL 0-0.2 [facility] Nucleated erythrocytes/100 leukocytes [Ratio] in Blood by Automated count 0 /100{WBCs} 0-0 [facility] ID Date Data Source [id number] 03/26/2020 09:06:35 AM [facility] Name Value Range Interpretation Code Description Data Hazel rce(s) Supporting Document(s) Glucose [Mass/volume] in Capillary blood by Glucometer 198 mg/dL 70- 140 H [facility] ID Date Data Source [id number] 03/26/2020 05:00:55 AM [facility] Name Value Range Interpretation Code Description Data Hazel rce(s) Supporting Document(s) Leukocytes [#/volume] in Blood by Automated count 3.8 10*3/uL 4-10 L [facility] Erythrocytes [#/volume] in Blood by Automated count 2.82 10*6/uL 4.6- 6.1 L [facility] Hemoglobin [Mass/volume] in Blood 9.0 g/dL 13.5-18 L [facility] Hematocrit [Volume Fraction] of Blood by Automated count 26.9 % 4 1-53 L [facility] Erythrocyte mean corpuscular volume [Entitic volume] by Auto mated count 95.2 fL 80-96 [facility] Erythrocyte mean corpuscular hemoglobin [Entitic mass] by Automated count 31.8 pg 27-33 [facility] Erythrocyte mean corpuscular hemoglobin concentration [Mass/volume] by Automated count 33.4 g/dL 32.0-36.0 [facility] Erythrocyte distribution width [Ratio] by Automated count 16.9 % 11.5-14.5 H [facility] Platelets [#/volume] in Blood by Automated count 176 10*3/uL 150-400 [facility] Differential cell count method - Blood [facility] Neutrophils/100 leukocytes in Blood by Automated count 49 % [facility] Lymphocytes/100 leukocytes in Blood by Automated count 35 % [facility] Monocytes/100 leukocytes in Blood by Automated count 9 % [facility] Eosinophils/100 leukocytes in Blood by Automated count 6 % [facility] Basophils/100 leukocytes in Blood by Automated count 1 % [facility] Neutrophils [#/volume] in Blood by Automated count 1.86 10*3/uL 1.8-7 .0 [facility] Lymphocytes [#/volume] in Blood by Automated count 1.35 10*3/uL 1.2-4 .0 [facility] Monocytes [#/volume] in Blood by Automated count 0.36 10*3/uL 0-0.8 [facility] Eosinophils [#/volume] in Blood by Automated count 0.24 10*3/uL 0-0.5 [facility] Basophils [#/volume] in Blood by Automated count 0.04 10*3/uL 0-0.2 [facility] Nucleated erythrocytes/100 leukocytes [Ratio] in Blood by Automated count 0 /100{WBCs} 0-0 [facility] ID Date Data Source [id number] 03/26/2020 05:12:31 AM [facility] Name Value Range Interpretation Code Description Data Hazel rce(s) Supporting Document(s) Bicarbonate [Moles/volume] in Serum 26 mmol/L 22-29 [facility] Chloride [Moles/volume] in Serum or Plasma 97 mmol/L 98-107 L [facility] Creatinine [Mass/volume] in Serum or Plasma 0.97 mg/dL 0.70-1.20 [facility] Glucose [Mass/volume] in Serum or Plasma 183 mg/dL 70-140 H [facility] Potassium [Moles/volume] in Serum or Plasma 3.4 mmol/L 3.4-5.1 [facility] Sodium [Moles/volume] in Serum or Plasma 132 mmol/L 136-145 L [facility] Urea nitrogen [Mass/volume] in Serum or Plasma 5 mg/dL 6-20 L [facility] Anion gap 3 in Serum or Plasma 10 mmol/L 8-15 [facility] Osmolality of Serum or Plasma by calculation 276 mosm/kg 275-300 [facility] Creatinine/Urea nitrogen [Mass Ratio] in Serum or Plasma 5 [facility] Calcium [Mass/volume] in Serum or Plasma 7.7 mg/dL 8.6-10.0 L [facility] Glomerular filtration rate/1.73 sq M pre dicted among non-blacks [Volume Rate/Area] in Serum or Plasma by Creatinine-based formula (MDRD) >6 0 [facility] Glomerular filtration rate/1.73 sq M pre dicted among blacks [Volume Rate/Area] in Serum or Plasma by Creatinine-based formula (MDRD) >60 [facility] ID Date Data Source [id number] 03/25/2020 10:10:13 PM [facility] Name Value Range Interpretation Code Description Data Hazel rce(s) Supporting Document(s) Glucose [Mass/volume] in Capillary blood by Glucometer 176 mg/dL 70- 140 H [facility] ID Date Data Source [id number] 03/25/2020 09:23:03 PM [facility] Name Value Range Interpretation Code Description Data Hazel rce(s) Supporting Document(s) Glucose [Mass/volume] in Capillary blood by Glucometer 102 mg/dL 70- 140 [facility] ID Date Data Source [id number] 03/25/2020 10:31:20 PM [facility] Value Range Interpretation Code Description Data Hazel rce(s) Supporting Document(s) Leukocytes [#/volume] in Blood by Automated count 4.7 10*3/uL 4-10 [facility] Erythrocytes [#/volume] in Blood by Automated count 2.70 10*6/uL 4.6- 6.1 [facility] Hemoglobin [Mass/volume] in Blood 8.7 g/dL 13.5-18 L [facility] Hematocrit [Volume Fraction] of Blood by Automated count 26.4 % 4 1-53 L [facility] Erythrocyte mean corpuscular volume [Entitic volume] by Auto mated count 97.9 fL 80-96 H [facility] Erythrocyte mean corpuscular hemoglobin [Entitic mass] by Automated count 32.3 pg 27-33 [facility] Erythrocyte mean corpuscular hemoglobin concentration [Mass/volume] by Automated count 33.0 g/dL 32.0-36.0 [facility]th[facility] distribution width [Ratio] by Automated count 17.0 % 11.5-14.5 H [facility] Platelets [#/volume] in Blood by Automated count 180 10*3/uL 150-400 [facility] Differential cell count method - Blood [facility] Neutrophils/100 leukocytes in Blood by Automated count 65 % [facility] Lymphocytes/100 leukocytes in Blood by Automated count 30 % [facility] Monocytes/100 leukocytes in Blood by Automated count 2 % [facility] Eosinophils/100 leukocytes in Blood by Automated count 3 % [facility] Neutrophils [#/volume] in Blood by Automated count 3.09 10*3/uL 1.8-7 .0 [facility] Lymphocytes [#/volume] in Blood by Automated count 1.39 10*3/uL 1.2-4 .0 [facility] Monocytes [#/volume] in Blood by Automated count 0.09 10*3/uL 0-0.8 [facility] Eosinophils [#/volume] in Blood by Automated count 0.14 10*3/uL 0-0.5 [facility] Anisocytosis [Presence] in Blood by Light microscopy [facility] ID Date Data Source [id number] 03/25/2020 09:17:52 PM EDT [facility] Value Range Interpretation Code Description Data Hazel rce(s) Supporting Document(s) Glucose [Mass/volume] in Capillary blood by Glucometer 69 mg/dL 70- 140 L [facility] ID Date Data Source [id number] 03/25/2020 05:28:47 PM EDT [facility] Value Range Interpretation Code Description Data Hazel rce(s) Supporting Document(s) Glucose [Mass/volume] in Capillary blood by Glucometer 254 mg/dL 70- 140 H [facility] ID Date Data Source [id number] 03/25/2020 12:55:23 PM EDT [facility] Value Range Interpretation Code Description Data Hazel rce(s) Supporting Document(s) Glucose [Mass/volume] in Capillary blood by Glucometer 161 mg/dL 70- 140 H [facility] ID Date Data Source [id number] 03/25/2020 12:59:01 PM EDT [facility] Value Range Interpretation Code Description Data Hazel rce(s) Supporting Document(s) Leukocytes [#/volume] in Blood by Automated count 4.1 10*3/uL 4-10 [facility] Erythrocytes [#/volume] in Blood by Automated count 2.88 10*6/uL 4.6- 6.1 L [facility] Hemoglobin [Mass/volume] in Blood 9.0 g/dL 13.5-18 L [facility] Hematocrit [Volume Fraction] of Blood by Automated count 27.4 % 4 1-53 L [facility] Erythrocyte mean corpuscular volume [Entitic volume] by Auto mated count 95.2 fL 80-96 [facility] Erythrocyte mean corpuscular hemoglobin [Entitic mass] by Automated count 31.4 pg 27-33 [facility] Erythrocyte mean corpuscular hemoglobin concentration [Mass/volume] by Automated count 33.0 g/dL 32.0-36.0 [facility] E[facility]throcyte distribution width [Ratio] by Automated count 16.9 % 11.5-14.5 H [facility] Platelets [#/volume] in Blood by Automated count 158 10*3/uL 150-400 [facility] Differential cell count method - Blood [facility] Neutrophils/100 leukocytes in Blood by Automated count 56 % [facility] Lymphocytes/100 leukocytes in Blood by Automated count 30 % [facility] Monocytes/100 leukocytes in Blood by Automated count 9 % [facility] Eosinophils/100 leukocytes in Blood by Automated count 4 % [facility] Basophils/100 leukocytes in Blood by Automated count 1 % [facility] Neutrophils [#/volume] in Blood by Automated count 2.28 10*3/uL 1.8-7 .0 [facility] Lymphocytes [#/volume] in Blood by Automated count 1.22 10*3/uL 1.2-4 .0 [facility] Monocytes [#/volume] in Blood by Automated count 0.37 10*3/uL 0-0.8 [facility] Eosinophils [#/volume] in Blood by Automated count 0.18 10*3/uL 0-0.5 [facility] Basophils [#/volume] in Blood by Automated count 0.03 10*3/uL 0-0.2 [facility] Nucleated erythrocytes/100 leukocytes [Ratio] in Blood by Automated count 0 /100{WBCs} 0-0 [facility] ID Date Data Source [id number] 03/25/2020 09:36:35 AM EDT [facility] Name Value Range Interpretation Code Description Data Hazel rce(s) Supporting Document(s) History and Physical [facility] [id number]TV7yR8qOBD6VLeHZhSfFsJgQeG1 lbm [file] SHELF STOCKER+Zp5OKOUkKHy7P0U7CSUbATo2N9HZX1YBUOMcRZxzWCcdGVTdZUu9U0U3DMZyZ7TWL1Atkjxhwr1+ XX9AU54MMPVpTFx4S6X7zPKhL1A8yZlJaRT7MO0VLF4UrIx8nIAfvH3+JR8ZB1CWEjWhPAa1K1K4xPYv I3X1cMiOeJA8BT9SRB0OuWOvIUPhorXvHa4vQ7KING bARnZNVLA9AQ2BiCAzSH3PqSQOL8EjfASySs4lWMkznJLarU9lVk9mLIjzDE7WRoBCLJjNRSG6MO1KeM SwWD3JpTKQI5PidHKbMd3wRPfoaYYsay7+NO7JIMVuVz3YYs4+LAajnyNfJwjNDkQ4DHHjy4WlLZa0BT 0BUD4swAckHNR9Oh0GvZN4mEJjY8iHQM0XgMKcP14j sUCwQDNlCe8FHrA2udUyoU4FJR39fICtm1B5YOLcG5qrIZbmn99sSOiqIBhGJA5tJXBOFSyzYXspMND6 WzDkhyuaBBCfYe0SWwWhYGf6bS4tcYP8DBG0GnwbuHXtAZboPgPoRcKeSuO6iTmitfq8NWlwYS3cBNdk czptZXRhLyc+JLeuEFZmVFLrRczJGWAivY3imgR9cs EkRGlbvQDaXs8rl2w3ClqjNy7aKo9aAIb0BvOkPgWsCRNwHz8pfN56EUtkmlByBf7HLyPmCHP8O3OrXm pSREY+QJarACsayTi2fIYgHIMsMf6XLKHeBKTsUBOsTDUqFQXhZGUsRCPzOCGbGWCxBKYoQWHfPWAkRZ AgICAgICAgICAgICAgICAgICAgICAgICAgICAgICAg IFXeNPQeQBMoIERxMTNqSAYfHKKaOISzOZRyYFUrSD7WDJZrAAMjMULmMPHoUBXlNIWiBJFpLGGfLQDc ICAgICAgICAgICAgICAgICAgICAgICAgICAgICAgICAgICAgICAgICAgICAgICAgICAgICAgICAgICAg VNGyCBGoTFQvKZLpII8ABHDaVYSzUYQvFCGvMPXvLO AgICAgICAgICAgICAgICAgICAgICAgICAgICAgICAgICAgICAgICAgICAgICAgICAgICAgICAgICAgIC MaRONtLRJnYKQmKUGaNLEmWDQqMHHyPC8ROOQuOUUoTNDrTAWbLEBeQGYrGPFoEKQpIIYrNQJlZUOsNV AgICAgICAgICAgICAgICAgICAgICAgICAgICAgICAg VXJhELWnYMPjAKYjXUCxNLDiYCLuZUCyNGHwHWIhSJMiJR6ZFRZvREBsKKJqZXTuHOEoMGCsRFFeMZRm ICAgICAgICAgICAgICAgICAgICAgICAgICAgICAgICAgICAgICAgICAgICAgICAgICAgICAgICAgICAg ERYzDAByXFTaEDSyEZHkLX9KVAVxGDCjLUFmARTrAZ AgICAgICAgICAgICAgICAgICAgICAgICAgICAgICAgICAgICAgICAgICAgICAgICAgICAgICAgICAgIC QePJUfHWNrZVPgOFFhMCUaDVXpDIRtWFNzAW9FJEXhGJIhYUEeAOUxIETfXQPuNBBuOOYbQADmYMXbGE AgICAgICAgICAgICAgICAgICAgICAgICAgICAgICAg LQFvFXGfKLRkVMRxJWEaSIMnILKpWTXjRUYfEUFrOYEfCUXkEL3IZAFnGFEfVRFwRXEzKYJxDSIoZZVk ICAgICAgICAgICAgICAgICAgICAgICAgICAgICAgICAgICAgICAgICAgICAgICAgICAgICAgICAgICAg ZPQfWPMoVDOtIFRgYUSbGLHkMW4VPAEzDUDaNVXkWM AgICAgICAgICAgICAgICAgICAgICAgICAgICAgICAgICAgICAgICAgICAgICAgICAgICAgICAgICAgIC OoHVEnBTVkNGJdTAPqUCVuAHDlKYWgBZGhRBSyVA6KMDWkTCCgHJEmTMGrLVLyDAFqHBKfNOCoYXBsRA AgICAgICAgICAgICAgICAgICAgICAgICAgICAgICAg NNYuQDJnDGVzWORkWPRgFSUhRDDnLUHkKOMjSNHxTLUxHNXhKEIbOC2FWU42lCOny9G3RBVwNZ4dgrj/ Kb0JLHwxzaZkxKWuNO4BZeDpAS9led6FEtSbMU0usl4XDVrCZoBqF2F3cHIxJBJyCENMUlFaJ73jSBrn Cs14YAwcXFKkKjEdOYe7Yy9PSpUhQ5lnNEMnUtH8VC KbKhX7XEVcXvB6VZNuUgZzGAnjKD0Jf2XijGGsNIs+Es9YJH5fk1AuTPmxVvYlPP3ibw2LCSmHKgJyL8 NeqmG7KMX3HDBsFz1TKDVoJDOroNOfBhGjDFZIAeKcV9QhfM63CNPRRb5+SBejwhAfAbrOBjY1SQWvh7 NtOHc1UK9HOZPgFBi3pOIfKFIVDRE7YP84btraY4mx YG4bJI8KALB7WDppTBYoOyLjQYGhOOjcQUBGLPoCRiMuA4Suh8PaZiX6OUXiCaVxVDpdLCMmJiN9NE08 vMgvPB3SSVBjVWStMD78JDS6KINfTs0ENk4IGyQaGM0shw7ORkiyHIVjApwTJut4FLjbYQ3LsEJcP3Uk rQIhv7jPEeBsW0WKTHS1ZXIgDv0RMMAmBaPeVPCtGE vjDJ3fFDFmCDXSiRapleC3VZ4PFF3cgeBtVN8DJyLxNv9iXr7KNaEuZ1MqX8JvIVAiCFHMIZoyWZ9BBQ kpFA1eYX9Xp2DChSUefC3mgk9ZJTWjPKEpMwpnzi9QSghrB0N4gUzuOVQfUyAzARARYJejAO0FRZVrVP H7OKRiXHRmFZTYYaOnY73fAV0YR6Aej67wOxX0FEIr EhZyUQihXJ28rRhguwEbgZUleHhaMM5WHu9+DQplbmRvYmoNCnhyZWYNCjAgMjkNCjAwMDAwMDAwMDAg QgN1BtFwJv3SAQHaBTRdUIRfDsTgWEQiFWNxWUxzHIGlWYG4FsR1OLDfMAJyEN5KNqRsCJKuStbeXJMk OCNbAXJeit1WCPFwOPAiMKN0SsZfUWXtXFOgQEitIT ZfIYLdHpDsFRUoTTWpHX6AOxQyQBGgQGO9AwDrTPVyUAJaqw2YKKZqSFRbEmU8KvQkALFoHCTcMJkcSJ DuPTG7NYx9UOSnWHGkBK6SCbPeSJXrOGilSQbdMRVhLPSzop5YNDFjQZGfWEWoOZKmTXWmPFRiWGvvVB GlLVDzEyLeMONtMROoVY8SBmRjKREzRKD8HGciCUOj QVRzqf5EOUBxAYFmWUN1SDFjNMMoFZJtBRxzRNFfDCLcRvOwRKSbUBMrWR0GWrJqEFWnFQJ5QWFlGFXh VSYhgy3HYKExDXZwHLw7QLPsECGcKPOfWPmxFCOtWNEgPcn7CMOtGHEhYD3OZfYaGHQgUbV7NRVpXCZh NVFlxz5REOXiKUUfPlpuAdZzWFMuMQYwNVkuONGhPY V6DSJeRTBgYSJhQY7GCaRsBTZaYvSiNVpsDZRsMHKyoi9ZUCFuGAXcYUCvZMWfBLOwDYEuTZkfOHMkPZ O2OVF6UVBnNWYhZZ5PZmUoFXAtTaM4DWkiMVPsBTPvyi5DYGEuWAZfAsWwNHVaJPGqTWReTTrqVAOpAH D0CSB2ZKHdJULdTR9WAgQvEZKiFpk7ZrGuNOUtVVRr tk3ZDZLzWXKlGdB9NNCkXLEzOUCbAQz8itBezVLjKIv4GS6DR8KiuaVnZuhPFk9Ln687UBI6OMZzYc1T H8saHr1aFTSgMBVMAz2KPRm5CIpoGLAuPED0YDSnDHF3QLMbB1O9QiJuS1XoWmXsWBZ+IDxlOWRkZGE4 TIn9JYJcSyS4MRBkLKzcTHWwPSWyGPKdJk4cSDGJEd2+CBhqjXYgaOxyYBNRUcM9WGXmDOgmTSTHGh5Q ID Date Data Source [id number] 03/25/2020 03:27:07 AM EDT [facility] Name Value Range Interpretation Code Description Data Hazel rce(s) Supporting Document(s) Leukocytes [#/volume] in Blood by Automated count 4.6 10*3/uL 4-10 [facility] Erythrocytes [#/volume] in Blood by Automated count 3.24 10*6/uL 4.6- 6.1 L [facility] Hemoglobin [Mass/volume] in Blood 10.3 g/dL 13.5-18 L [facility] Hematocrit [Volume Fraction] of Blood by Automated count 30.9 % 4 1-53 L [facility] Erythrocyte mean corpuscular volume [Entitic volume] by Auto mated count 95.3 fL 80-96 [facility] Erythrocyte mean corpuscular hemoglobin [Entitic mass] by Automated count 31.7 pg 27-33 [facility] Erythrocyte mean corpuscular hemoglobin concentration [Mass/volume] by Automated count 33.3 g/dL 32.0-36.0 [facility] distribution width [Ratio] by Automated count 17.3 % 11.5-14.5 H [facility] Platelets [#/volume] in Blood by Automated count 185 10*3/uL 150-400 [facility] Differential cell count method - Blood [facility] Neutrophils/100 leukocytes in Blood by Automated count 50 % [facility] Lymphocytes/100 leukocytes in Blood by Automated count 34 % [facility] Monocytes/100 leukocytes in Blood by Automated count 9 % [facility] Eosinophils/100 leukocytes in Blood by Automated count 6 % [facility] Basophils/100 leukocytes in Blood by Automated count 1 % [facility] Neutrophils [#/volume] in Blood by Automated count 2.31 10*3/uL 1.8-7 .0 [facility] Lymphocytes [#/volume] in Blood by Automated count 1.55 10*3/uL 1.2-4 .0 [facility] Monocytes [#/volume] in Blood by Automated count 0.41 10*3/uL 0-0.8 [facility] Eosinophils [#/volume] in Blood by Automated count 0.27 10*3/uL 0-0.5 [facility] Basophils [#/volume] in Blood by Automated count 0.03 10*3/uL 0-0.2 [facility] Nucleated erythrocytes/100 leukocytes [Ratio] in Blood by Automated count 0 /100{WBCs} 0-0 [facility] ID Date Data Source [id number] 03/25/2020 04:12:49 AM EDT [facility] Name Value Range Interpretation Code Description Data Hazel rce(s) Supporting Document(s) Bicarbonate [Moles/volume] in Serum 26 mmol/L 22-29 [facility] Chloride [Moles/volume] in Serum or Plasma 93 mmol/L 98-107 L [facility] Creatinine [Mass/volume] in Serum or Plasma 0.92 mg/dL 0.70-1.20 [facility] Glucose [Mass/volume] in Serum or Plasma 224 mg/dL 70-140 H [facility] Potassium [Moles/volume] in Serum or Plasma 3.4 mmol/L 3.4-5.1 [facility] Sodium [Moles/volume] in Serum or Plasma 130 mmol/L 136-145 L [facility] Urea nitrogen [Mass/volume] in Serum or Plasma 7 mg/dL 6-20 [facility] Anion gap 3 in Serum or Plasma 11 mmol/L 8-15 [facility] Osmolality of Serum or Plasma by calculation 274 mosm/kg 275-300 L [facility] Creatinine/Urea nitrogen [Mass Ratio] in Serum or Plasma 7 [facility] Calcium [Mass/volume] in Serum or Plasma 8.4 mg/dL 8.6-10.0 L [facility] Glomerular filtration rate/1.73 sq M pre dicted among non-blacks [Volume Rate/Area] in Serum or Plasma by Creatinine-based formula (MDRD) >6 0 [facility] Glomerular filtration rate/1.73 sq M pre dicted among blacks [Volume Rate/Area] in Serum or Plasma by Creatinine-based formula (MDRD) >60 [facility] ID Date Data Source [id number] 03/24/2020 08:42:55 PM [facility] Name Value Range Interpretation Code Description Data Hazel rce(s) Supporting Document(s) Glucose [Mass/volume] in Capillary blood by Glucometer 344 mg/dL 70- 140 H [facility] ID Date Data Source [id number] 03/24/2020 07:48:30 PM [facility] Name Value Range Interpretation Code Description Data Hazel rce(s) Supporting Document(s) Leukocytes [#/volume] in Blood by Automated count 4.4 10*3/uL 4-10 [facility] Erythrocytes [#/volume] in Blood by Automated count 2.86 10*6/uL 4.6- 6.1 [facility] Hemoglobin [Mass/volume] in Blood 9.0 g/dL 13.5-18 L [facility] Hematocrit [Volume Fraction] of Blood by Automated count 27.5 % 4 1-53 L [facility] Erythrocyte mean corpuscular volume [Entitic volume] by Auto mated count 96.2 fL 80-96 H [facility] Erythrocyte mean corpuscular hemoglobin [Entitic mass] by Automated count 31.5 pg 27-33 [facility] Erythrocyte mean corpuscular hemoglobin concentration [Mass/volume] by Automated count 32.8 g/dL 32.0-36.0 [facility] width [Ratio] by Automated count 17.1 % 11.5-14.5 H [facility] Platelets [#/volume] in Blood by Automated count 155 10*3/uL 150-400 [facility] Differential cell count method - Blood [facility] Neutrophils/100 leukocytes in Blood by Automated count 57 % [facility] Lymphocytes/100 leukocytes in Blood by Automated count 29 % [facility] Monocytes/100 leukocytes in Blood by Automated count 8 % [facility] Eosinophils/100 leukocytes in Blood by Automated count 5 % [facility] Basophils/100 leukocytes in Blood by Automated count 1 % [facility] Neutrophils [#/volume] in Blood by Automated count 2.60 10*3/uL 1.8-7 .0 [facility] Lymphocytes [#/volume] in Blood by Automated count 1.27 10*3/uL 1.2-4 .0 [facility] Monocytes [#/volume] in Blood by Automated count 0.34 10*3/uL 0-0.8 [facility] Eosinophils [#/volume] in Blood by Automated count 0.21 10*3/uL 0-0.5 [facility] Basophils [#/volume] in Blood by Automated count 0.02 10*3/uL 0-0.2 [facility] Nucleated erythrocytes/100 leukocytes [Ratio] in Blood by Automated count 0 /100{WBCs} 0-0 [facility] ID Date Data Source [id number] 03/24/2020 05:59:57 PM EDT [facility] Name Value Range Interpretation Code Description Data Hazel rce(s) Supporting Document(s) Glucose [Mass/volume] in Capillary blood by Glucometer 186 mg/dL 70- 140 H [facility] ID Date Data Source [id number] 03/24/2020 12:39:27 PM EDT [facility] Value Range Interpretation Code Description Data Hazel rce(s) Supporting Document(s) Glucose [Mass/volume] in Capillary blood by Glucometer 263 mg/dL 70- 140 H [facility] ID Date Data Source [id number] 03/24/2020 11:21:35 AM [facility] Name Value Range Interpretation Code Description Data Hazel rce(s) Supporting Document(s) Leukocytes [#/volume] in Blood by Automated count 4.4 10*3/uL 4-10 [facility] Erythrocytes [#/volume] in Blood by Automated count 3.29 10*6/uL 4.6- 6.1 L [facility] Hemoglobin [Mass/volume] in Blood 10.3 g/dL 13.5-18 L [facility] Hematocrit [Volume Fraction] of Blood by Automated count 31.6 % 4 1-53 L [facility] Erythrocyte mean corpuscular volume [Entitic volume] by Auto mated count 95.9 fL 80-96 [facility] Erythrocyte mean corpuscular hemoglobin [Entitic mass] by Automated count 31.4 pg 27-33 [facility] Erythrocyte mean corpuscular hemoglobin concentration [Mass/volume] by Automated count 32.7 g/dL 32.0-36.0 [facility] distribution width [Ratio] by Automated count 17.1 % 11.5-14.5 H [facility] Platelets [#/volume] in Blood by Automated count 160 10*3/uL 150-400 [facility] Differential cell count method - Blood [facility] Neutrophils/100 leukocytes in Blood by Automated count 66 % [facility] Lymphocytes/100 leukocytes in Blood by Automated count 22 % [facility] Monocytes/100 leukocytes in Blood by Automated count 7 % [facility] Eosinophils/100 leukocytes in Blood by Automated count 5 % [facility] Basophils/100 leukocytes in Blood by Automated count 0 % [facility] Neutrophils [#/volume] in Blood by Automated count 2.89 10*3/uL 1.8-7 .0 [facility] Lymphocytes [#/volume] in Blood by Automated count 0.96 10*3/uL 1.2-4 .0 L [facility] Monocytes [#/volume] in Blood by Automated count 0.31 10*3/uL 0-0.8 [facility] Eosinophils [#/volume] in Blood by Automated count 0.20 10*3/uL 0-0.5 [facility] Basophils [#/volume] in Blood by Automated count 0.02 10*3/uL 0-0.2 [facility] Nucleated erythrocytes/100 leukocytes [Ratio] in Blood by Automated count 0 /100{WBCs} 0-0 [facility] ID Date Data Source [id number] 03/24/2020 08:52:00 AM EDT [facility] Name Value Range Interpretation Code Description Data Hazel [facility](s) Supporting Document(s) History and Physical [facility] JMMGFa7aDiQZKlCr05/LXBqsNDOjo1VqTSrwADo7ZLipXTZrN2PkSAY8pM5sEVR3XYzZGaRzQqCgFvO0 lbm VgCzuDZvLrACHbPtuJNoKyELdlTcpejRQeSM8CfHH9SGUqK28gUFHlDCWyG4FaMPOqZwG+Se7GTZDlhG SzPP0PElyD7Tpff+O48XuB/eiYOR7wVD+KrdJQBI60xdCNciu3sEkFo33/aG0lUc+4ciC515yfj105jW jU2Hi8dj27BE3LuUlqeswyVDdQp0+rK8wixlOd//METALIZER [file] nZnnIKUDScR7ZuO9VVvgJVTZSe1S ID Date Data Source [id number] 03/24/2020 08:50:26 AM EDT [facility] Name Value Range Interpretation Code Description Data Hazel rce(s) Supporting Document(s) [facility] XUSUKe5gQqSQDgKgh9HnQzWrADMvMM0odjk9J0K5hFWgU6IpvSNfy9sgF0ZyE7AqOBOtYJDAIC1KcOHb jb2 [file] /kh9pTW/+NET PROGRAMMER ANALYST+1CTiv/qUgzouFwR7bfVxYnEQAH948otAhwgDp4cMy1/8aH552QCNX88X0bkGhnjAoBEQ [file] EwP/7soxP/uBpRRGKN4tlL5iqx0mlSS1uhBQle7soi984VLUqKg/vHgHb107xlU/NET PROGRAMMER ANALYST/knAeRrbqQMg8o [file] NSAwIFIKCj4+KbC1HKJ3mFRkStb4UsT0TbwsKWURZz== ID Date Data Source [id number] 03/24/2020 08:30:51 AM EDT [facility] Name Value Range Interpretation Code Description Data Hazel rce(s) Supporting Document(s) Glucose [Mass/volume] in Capillary blood by Glucometer 106 mg/dL 70- 140 [facility] ID Date Data Source [id number] 03/24/2020 04:16:30 AM [facility] Value Range Interpretation Code Description Data Hazel rce(s) Supporting Document(s) Bicarbonate [Moles/volume] in Serum 28 mmol/L 22-29 [facility] Chloride [Moles/volume] in Serum or Plasma 97 mmol/L 98-107 L [facility] Creatinine [Mass/volume] in Serum or Plasma 0.83 mg/dL 0.70-1.20 [facility] Glucose [Mass/volume] in Serum or Plasma 85 mg/dL 70-140 [facility] Potassium [Moles/volume] in Serum or Plasma 3.1 mmol/L 3.4-5.1 L [facility] Sodium [Moles/volume] in Serum or Plasma 131 mmol/L 136-145 L [facility] Urea nitrogen [Mass/volume] in Serum or Plasma 8 mg/dL 6-20 [facility] Anion gap 3 in Serum or Plasma 7 mmol/L 8-15 L [facility] Osmolality of Serum or Plasma by calculation 270 mosm/kg 275-300 L [facility] Creatinine/Urea nitrogen [Mass Ratio] in Serum or Plasma 10 [facility] Calcium [Mass/volume] in Serum or Plasma 8.0 mg/dL 8.6-10.0 L [facility] Glomerular filtration rate/1.73 sq M pre dicted among non-blacks [Volume Rate/Area] in Serum or Plasma by Creatinine-based formula (MDRD) >6 0 [facility] Glomerular filtration rate/1.73 sq M pre dicted among blacks [Volume Rate/Area] in Serum or Plasma by Creatinine-based formula (MDRD) >60 [facility] ID Date Data Source [id number] 03/24/2020 02:48:40 AM [facility] Value Range Interpretation Code Description Data Hazel rce(s) Supporting Document(s) Leukocytes [#/volume] in Blood by Automated count 4.5 10*3/uL 4-10 [facility] Erythrocytes [#/volume] in Blood by Automated count 2.76 10*6/uL 4.6- 6.1 L [facility] Hemoglobin [Mass/volume] in Blood 8.8 g/dL 13.5-18 L [facility] Hematocrit [Volume Fraction] of Blood by Automated count 26.1 % 4 1-53 L [facility] Erythrocyte mean corpuscular volume [Entitic volume] by Auto mated count 94.4 fL 80-96 [facility] Erythrocyte mean corpuscular hemoglobin [Entitic mass] by Automated count 31.8 pg 27-33 [facility] Erythrocyte mean corpuscular hemoglobin concentration [Mass/volume] by Automated count 33.7 g/dL 32.0-[facility] [Ratio] by Automated count 16.8 % 11.5-14.5 H [facility] Platelets [#/volume] in Blood by Automated count 137 10*3/uL 150-400 L [facility] Differential cell count method - Blood [facility] Neutrophils/100 leukocytes in Blood by Automated count 54 % [facility] Lymphocytes/100 leukocytes in Blood by Automated count 32 % [facility] Monocytes/100 leukocytes in Blood by Automated count 8 % [facility] Eosinophils/100 leukocytes in Blood by Automated count 5 % [facility] Basophils/100 leukocytes in Blood by Automated count 1 % [facility] Neutrophils [#/volume] in Blood by Automated count 2.44 10*3/uL 1.8-7 .0 [facility] Lymphocytes [#/volume] in Blood by Automated count 1.44 10*3/uL 1.2-4 .0 [facility] Monocytes [#/volume] in Blood by Automated count 0.34 10*3/uL 0-0.8 [facility] Eosinophils [#/volume] in Blood by Automated count 0.23 10*3/uL 0-0.5 [facility] Basophils [#/volume] in Blood by Automated count 0.03 10*3/uL 0-0.2 [facility] Nucleated erythrocytes/100 leukocytes [Ratio] in Blood by Automated count 0 /100{WBCs} 0-0 [facility] ID Date Data Source [id number] 03/24/2020 03:06:37 AM EDT [facility] Name Value Range Interpretation Code Description Data Hazel rce(s) Supporting Document(s) Bicarbonate [Moles/volume] in Serum 27 mmol/L 22-29 [facility] Chloride [Moles/volume] in Serum or Plasma 100 mmol/L 98-107 [facility] Creatinine [Mass/volume] in Serum or Plasma 0.80 mg/dL 0.70-1.20 [facility] Glucose [Mass/volume] in Serum or Plasma 80 mg/dL 70-140 [facility] Potassium [Moles/volume] in Serum or Plasma 3.3 mmol/L 3.4-5.1 L [facility] Hemolyzed Sodium [Moles/volume] in Serum or Plasma 136 mmol/L 136-145 [facility] Urea nitrogen [Mass/volume] in Serum or Plasma 8 mg/dL 6-20 [facility] Anion gap 3 in Serum or Plasma 9 mmol/L 8-15 [facility] Osmolality of Serum or Plasma by calculation 279 mosm/kg 275-300 [facility] Creatinine/Urea nitrogen [Mass Ratio] in Serum or Plasma 10 [facility] Calcium [Mass/volume] in Serum or Plasma 7.5 mg/dL 8.6-10.0 L [facility] Glomerular filtration rate/1.73 sq M pre dicted among non-blacks [Volume Rate/Area] in Serum or Plasma by Creatinine-based formula (MDRD) >6 0 [facility] Glomerular filtration rate/1.73 sq M pre dicted among blacks [Volume Rate/Area] in Serum or Plasma by Creatinine-based formula (MDRD) >60 [facility] ID Date Data Source [id number] [facility] Code Description Data Hazel rce(s) Supporting Document(s) Glucose [Mass/volume] in Capillary blood by Glucometer 319 mg/dL 70- 140 H [facility] ID Date Data Source [id number] 03/23/2020 09:34:51 PM EDT [facility] Value Range Interpretation Code Description Data Hazel rce(s) Supporting Document(s) Glucose [Mass/volume] in Capillary blood by Glucometer 330 mg/dL 70- 140 H [facility] ID Date Data Source [id number] 03/23/2020 07:46:22 PM [facility] Value Range Interpretation Code Description Data Hazel rce(s) Supporting Document(s) [facility] JAMSBv6sVeMHRdYc77/UAVagNPRdg8QvELfnYEz3QMcfEYFrY4WzFAG0nQ9pBSJ7GGbZIsNbNoXjQqOx lbm [file] AgICAgICAgICAgICAgICAgICAgICAgICAgICAgICAg HCTpTQAjGMSbVFJpCDZvYPWaKBJgLTDuDEMvCSNkVJXmZTJaPWObALGuDF0WYZNfVSJgZAUhFJNjTUQw ICAgICAgICAgICAgICAgICAgICAgICAgICAgICAgICAgICAgICAgICAgICAgICAgICAgICAgICAgICAg ASPlXPHfYUJkWFUpDSQyZBSfRREwOHVnBM5XBWZiGF AgICAgICAgICAgICAgICAgICAgICAgICAgICAgICAgICAgICAgICAgICAgICAgICAgICAgICAgICAgIC UhZLKqUUPnNFItTCDeGRRxECNcFXBfZKVcGJQvLPWhOSMjZG0ZIBCyFTVkBMSbZKWeCJAnQOVdAAFrUY AgICAgICAgICAgICAgICAgICAgICAgICAgICAgICAg IREbYLWkSGWkPDSdEGKzUOZoKKFzPOZiXCZiLDItGBPjLSNbAYRyDPScQCQlKC6RILLgZTPeQDWzHPRu ICAgICAgICAgICAgICAgICAgICAgICAgICAgICAgICAgICAgICAgICAgICAgICAgICAgICAgICAgICAg NIZpGYHfRHOhUEUcGJAmEFReYKAvZYQbPCEzTZ9BHF AgICAgICAgICAgICAgICAgICAgICAgICAgICAgICAgICAgICAgICAgICAgICAgICAgICAgICAgICAgIC DdHVWlSGHnOCVdMAPnTEDmMKVlCPGcUCDzSUTzFYVsWFGxZXYgLK8UBSDpMBRvKLGaHSLtIEEmEQEbYJ AgICAgICAgICAgICAgICAgICAgICAgICAgICAgICAg JCKjTRJlWIAfICOyRSCbHLZiAFLaVSHvWSZiSBUiXWTwKXObJXPiKHUzZVZlDIDlYK5WUHOfMOFgPPHu ICAgICAgICAgICAgICAgICAgICAgICAgICAgICAgICAgICAgICAgICAgICAgICAgICAgICAgICAgICAg ICAgICAgICAgICAgICAgICAgICAgICAgICAgICAgIA 0KICAgICAgICAgICAgICAgICAgICAgICAgICAgICAgICAgICAgICAgICAgICAgICAgICAgICAgICAgIC RlCIJiXDFzIGPoPAWgXKFbCKSjIXNyQSNwXJIcMHNeBWZzROBeKDFwHV2UCJQeRBSyBDMwZSGoEGJhCU AgICAgICAgICAgICAgICAgICAgICAgICAgICAgICAg GJXeEPVvXMWpIWNsDRTbLBLpLUJmVYMmXKLoJEYrQRVnWOQcDQZzXTFvXQQiCNTmZCZaXG8WUY72nMHw p8V5ORMvGM1jfxu/Bh7ANPvwyrTfzALsCL9LMlCvPB2uql1VPeQjKX3cun2OXDiNVhExS3V6yUYmCBEn ZFDIOsFoP69gCJrxPl81LIqyNTTyNrDdCYf2Xu3QXx AeO0nsLJGaMsD3CGUqTwR4WMJlSbZ0FZPjWnRfPMXnBKPqEYBxRLKWPWE3SJTaNxOqQpIrOWPcDU3HSN UcZ367zxAgXt2TMf0XKpXgZN1bix7VTYSqVGLdLwwWLag7FVcnEL6QxARylMR7ICCdADOFBtZwC1hdh6 KqWKRsQBRCEOjbVI7Gf9NscINxZHy+Ci8XSP2xf1Dv FEb8WHGpEJ4jld9TCAnCCyFhP4EmwTuzZBKryoQ8lVXaEPP1ZRVhXRWtfqULkVduoACbPFJCPJVugKV9 BgVcUbObQtHmBCX4EWLtUA5qREenEE9MTZF1UZnfOJQgXJUyD2dBLyDsSNDeIcEibRqiBP4XQpQkQ3Vu ahMroFV8OSVyJYYRBp2+DQplbmRvYmoNCjQyIDAgb2 BuQXp5KN6SZYQaACsrWK8DSHSykX6lVCglHL6EIcRsJEBmAJCJKrBpE95dtHPsBCm5T2HzRmNyMIEvPn lsZXMgPDwvTmFtZXMgWyBdDQogID4+ID4+FBrtPI1UQJplebAeNYQcYm4LYSEqASXiZB0nELHqPGFqW1 P6xSpxWVKLYrWkP0kfdnvvNB2zQHKuN658zRwctsNw FYQrRLXgNw6XBHJnCEV1ATCmoVAqWqlcZGOZGVgfRW5XxOKxANK1oD6uKFrtLJDdMMRvO7kGAsDjsMgm SC32kFlapfAohIWoDRi+Lj7NPR5pw5ZwMFw0fpOrIWjfHYAkZNduZINrDIDaOEJaCIP7SQI8YRWICoVs RYZkKYXaJQiiYCLzQBGjrx1CWUWrVJZ4LHF7GxWiEF PxWVZfYTanZPXcQKImOUO6JMIfCLBfZB8JEpFzOYFxKNIbEQnhXZPuNSVtnb2WTXIzWCBpImF3AcYmNY PeEWMaAZqnTEQwNSPiQTdsFBRgDSVdWV2EImUfGCPqNGF1TfKcDYCqVLLjxh4JICWoQQPzHsK7XBWrYE FhUOFfSJfdKZIbKKRgJvLjHKIoIZDuHQ9OQcLkCHRe USL4QtWuBRJgOBXtem7TEMWfPGDsXGNgJIVoEYIkRSSxWBwuAJTkBHI2KwF4GSBqDDGiZP3ZWzZyAYGv FSS9ZovrLLShUSGwbg6LGOIwJKEwYrI0KRXwCEPwHCOsVEnzFDZcNHPkItF2PUPdZVKdLT4UPmZdCJPo NpL8YKHaUFAaMEQhrw1YBITsQKIgRJpdORMiBLUgRV RlTOejQEHeDBDdOBP6CBWqIFPrKI7XWbNmKXKqItEoISQaMQIkWNZref1DUASaUJLcSfByDdXdCYXsNY SwAUisZZDyLKDmLoo6KLOyCUGaRV9GIfDnLONiWyNjCTVcLHQbWTKyeg7XPJFzVPCsZCX4ViQeIQMyNU LbSZitZXJdQAL1DvZ6DFZxEZZaXT4AHsMdNPHsIlL2 YGCiPJSiGWCulf2VCUPwMRDzSIr6JIQcRQCoDJGwFErdFHPiRBG3AEzzOQMlHTAfVT8LXmFqKLUqXcas WATaKJLvKSJjbf8UFZDbKAEhTcT7PYOpZFZwYWIvYJprDNUnYOC8WMXjZAMgEPVwCR5EAtYjJOSgQof3 MMxwMTWwVIQuym1SJLYhCEXwBWWxJwArBSMaTYQhPP xnJHGlIFU0GwQ8HHZtODJvQH4GNsIsFKEuPzx6JqVyYPFuLGOjzu0VJXEvWMMeKKahGVBbLJDmTPDgUX uaJXXtPNYsVtA9AEVhLFCcCI5JCcFoAYYwECJ0OYElUBCgDHSgha6SNYAxYQS5ENIwONXoLNJiTLQnFH uhCUGfNRQeFFi5LIImULSkAB9NUgUcXOAgVCD1ETlj KXPhOMAzhb8MDBMxOQJ8ZlNhFOCvEIJgFCKkDVfsUKVjESWnLAyfPYAsFIXzOS3QRhQnWEvvXAANVyv3 TOurI5d3CUH4An8DS0Eqy9OxCZOsMFIYPMddLV6mzuTcFCMrDu7JC6rZFmlpX6R4J4V1SJT5SOTwWMOb WBK0GDVdQTCfUmZ5K5F4KJ2dNNMxNYPoNwewQyQ8BH TmF2PcFZLyTSKxLFJtFoSfKEUuCpNvGZ5ZQb3QDbA8QWX0tGSxDb7VOMK3APGDIfInJY3NNRv= ID Date Data Source [id number] 03/23/2020 07:09:44 PM EDT [facility] Name Value Range Interpretation Code Description Data Hazel rce(s) Supporting Document(s) Leukocytes [#/volume] in Blood by Automated count 5.4 10*3/uL 4-10 [facility] Erythrocytes [#/volume] in Blood by Automated count 2.89 10*6/uL 4.6- 6.1 L [facility] Hemoglobin [Mass/volume] in Blood 9.2 g/dL 13.5-18 L [facility] Hematocrit [Volume Fraction] of Blood by Automated count 27.4 % 4 1-53 L [facility] Erythrocyte mean corpuscular volume [Entitic volume] by Auto mated count 94.7 fL 80-96 [facility] Erythrocyte mean corpuscular hemoglobin [Entitic mass] by Automated count 31.8 pg 27-33 [facility] Erythrocyte mean corpuscular hemoglobin concentration [Mass/volume] by Automated count 33.5 g/dL 32.0-36.0 [facility] width [Ratio] by Automated count 16.8 % 11.5-14.5 H [facility] Platelets [#/volume] in Blood by Automated count 130 10*3/uL 150-400 L [facility] Differential cell count method - Blood [facility] Neutrophils/100 leukocytes in Blood by Automated count 71 % [facility] Lymphocytes/100 leukocytes in Blood by Automated count 20 % [facility] Monocytes/100 leukocytes in Blood by Automated count 6 % [facility] Eosinophils/100 leukocytes in Blood by Automated count 3 % [facility] Basophils/100 leukocytes in Blood by Automated count 0 % [facility] Neutrophils [#/volume] in Blood by Automated count 3.84 10*3/uL 1.8-7 .0 [facility] Lymphocytes [#/volume] in Blood by Automated count 1.08 10*3/uL 1.2-4 .0 L [facility] Monocytes [#/volume] in Blood by Automated count 0.35 10*3/uL 0-0.8 [facility] Eosinophils [#/volume] in Blood by Automated count 0.15 10*3/uL 0-0.5 [facility] Basophils [#/volume] in Blood by Automated count 0.02 10*3/uL 0-0.2 [facility] Nucleated erythrocytes/100 leukocytes [Ratio] in Blood by Automated count 0 /100{WBCs} 0-0 [facility] ID Date Data Source [id number] 03/23/2020 06:06:54 PM EDT [facility] Name Value Range Interpretation Code Description Data Hazel rce(s) Supporting Document(s) Glucose [Mass/volume] in Capillary blood by Glucometer 76 mg/dL 70- 140 [facility] ID Date Data Source [id number] 03/23/2020 04:31:15 PM [facility] Name Value Range Interpretation Code Description Data Hazel rce(s) Supporting Document(s) [facility] UPNWRg9iDjHTIaSj26/MNPkiELTat5DyKBjaONn6LBvoADElG1RdSCQ5iD2qCXX2KYpVCmUkGiFuVuZh [facility] [file] ICAgICAgICAgICAgICAgICAgICAgICAgICAgICAgIC IvKVJqCDJnQDLvKWEnYPTpYNRrBKXyNWAgJFLuGFSrCQTfOCMjZYGsAWUzHC5EXAUhHOZkFLKiONPoKI AgICAgICAgICAgICAgICAgICAgICAgICAgICAgICAgICAgICAgICAgICAgICAgICAgICAgICAgICAgIC PmPVVgUQNdLPEdGXEdHXXlGIRdTXBpWTLsSO8YTWHj ICAgICAgICAgICAgICAgICAgICAgICAgICAgICAgICAgICAgICAgICAgICAgICAgICAgICAgICAgICAg LENmUSGjQGHnPDMjHWMrKLLrDHLqQRHmPXBoSTHwWEPwVBOcXP0IAKJhWJQkYSJpSGWzBHKtZFHrEJAk ICAgICAgICAgICAgICAgICAgICAgICAgICAgICAgIC VmPXJuSQHlQEJcTXGzGKXjGZCvKFMhEUEsIHLvZTFqQROvHVYpHRKvKAAnLEJzEU0HCRHtXVHyHKXjMQ AgICAgICAgICAgICAgICAgICAgICAgICAgICAgICAgICAgICAgICAgICAgICAgICAgICAgICAgICAgIC FxZNGbPVXlJUNyKRPkVKJiICKnTTRaIPKnBGSlKE6J ICAgICAgICAgICAgICAgICAgICAgICAgICAgICAgICAgICAgICAgICAgICAgICAgICAgICAgICAgICAg OGRmWFHlYSKfNVPeOCWwAIVcRNIaBJUaEMHeRFKrTRYuVYHcHZHrFG4MNQVvGGPyGFSzLIFkKMWfVNZf ICAgICAgICAgICAgICAgICAgICAgICAgICAgICAgIC KhYQGwZPHsQQGwDEHpRFFhYAFwZQYmSDXePFDzQEYfRZCkFNUdCLHfIBBxSSTiJUUhTN0WBQVlOUBgVJ AgICAgICAgICAgICAgICAgICAgICAgICAgICAgICAgICAgICAgICAgICAgICAgICAgICAgICAgICAgIC AgICAgICAgICAgICAgICAgICAgICAgICAgICAgICAg IB9ODEIvTLElBBOhZHPbCOHeJAJzKIUoGOIlTXUaJGLtTFZbJPRxPACxLLEkNQLeNHFnTPItPRWnMYPs QMNuKHYdAMHjWTGkBXBcCNDeBGJqLLLzEEJbHMAkKHJfXTQvPNRlEKKxOW7UKGNtMYMpDHNpCPXyEHKl ICAgICAgICAgICAgICAgICAgICAgICAgICAgICAgIC LrQNYwIHNdKDFmSJRzOWRrAHMbRKGcSNBqGFEnGTGxLCQkFOMkTOVkPNKjGTLvXCLjWYBzGM2DSB31aT Fql6U5LYLiIM9piuu/Rj7JGEuusbVrgHFcIB1AXcHqFK5gpt0TNbSkGK0qvy9PXHtJDdPoU9U4hYLvNG QuEKAPIyReE76dRNjfKo70TYgpTTFjKoZcAPi1Vm9B IgVgS1beGIPhHgF0MHQvObV7HRQyYlB4CJYvPfHqMGBvNDCfZCPzCAILEIA9PLKsHyKuJmPkWJBqUG0W DOXzS201moFySm9UKl0DMdNtOJ7giy0XYjKtZBFjHbuCZtj6IWasZW5ZmWHunKMeBuJfCCQBLtYoM6xa h2JaEoJmPLEQMMtlXR4Eg4TfpHOwKVe+Kj0TSS5vu1 DpSPmqWrUxCM3hvk6TALnNYgJaN1MqjOzzKEIppzN7dLRtPFI8LNAsxnucsMehED0hDt4vfRxzWMdzER 9XZpNrxTW8WjCjVbGxHtQeNWB1RYiwGN4oNErjFP4ALQY2LIlcBICgDILvH0bLMvHuZKQzJlGumDgbMN 4GXuWqA7BmwkYcfXRnLKAyOGVKIg4+DQplbmRvYmoN EuJkPGSke1IfDXl1TR6RGUDlTXajBQ4KHMYxiH5aFHmzAV7FVfFaXCAvZMYKBjAoI05xbPHyJVc4J5Wo YmVkZGVkRmlsZXMgPDwvTmFtZXMgWyBdDQogID4+ID4+UOjkRU4HCUxcpnVpANSsTe5YJJAsOUGjLO3k EJIfRJPeE2S1sPejFOXXYoKbV6mujvbzJI5kTYIiP5 55eDhjrkRtQSWdMQBvHd2FAPDsGTN5QPPzgWKbEwBdYCLLRNaoBC8LfWNjWER5cE1qHGnqPYDpLELvC6 cDRxQawXwiFX58gAhgukXxzETwPGy+Ww2VRK9dc8JaQTg4owGjBRxuIUR3ZMmpULKbWLYvJSTjIIY4SG F2GSRUYfIzDRYcIGPcCQkgVHYkSSHiop7YCKYrUGAa GtLgYsYiMGJwPIUvIQrqTSCwXSY1DSXtCBHyUHFvER9WGgPzXAGuZOMbBVisYNKhQFQmzw4EHKUjNLDv WbG4JcFaMOMeIXFpVJilULXjHUIbWNm2BFWqGHMwLP3VWzYfCXInGQK3HWDzPVGlZPVgqw1HNTHtWQYo MlY7IHHbSCLeEDXiPGoiSMAgJVY4Egn9LBLmWEGyOZ 0VQaYlNUXxFJf3GGIdUNRrYBBkcd2TBLFfFTTgMer1LiNiOLBrIRNlTAiuHEMkOXYkNCDbPCBmPYKhZQ 8EOyLkNPKrCZGiPMTqMLAfRNWavl1RADMqAXWpCdAoQSAvKWFkCJWiQLdaZTPoJFQqNIF4MJUnROXuPX 7IYlZqNYUpXyXdDdVlGPHjMXDejp9UXSFpZVGwKTjp NMFwBRScQDHiUVsuWVCwPCVjPUMzDFEkGABqYJ3WVzZxRJDvEeJtEhMmAJCqUYHhuh3BSUTcFHKfMoO3 UKIuYNOcUVSpRRkwRXZjCFTqAJNlNIZtXQYwVM5MMcUjEOWiTtG8GGAvRKSsZDZtpx7ONYIbKQGzGlFj AhQfAHBkXCUaXYreKJRiSZUiDZLgTZNlKWAiBQ2RYh TdZHAgGlAnRKOfNYPzZTAfeo3WYDTgJENuIVN8GrQnUVSbVPUiBUssUDJsXZY4Ikc6DSYvGQDgMF4UNe VwQFLzPcF6GxCrJLXrGMRvfa3LNZVsDQMoWkY3NMHdEIQmLYLrOPfpTXBqRVJ6ZLqwOQZlBCYzJE4YBj BvBVRxZgd2HMhvBFKkRZFkgv3KHLVjXBCmAQSmNMJr EEEnGVCyJSafXAAaUBO2IQr3GDYjQJMvNT4HDbLiZGeqPCOSWqb7AJwlD1y1WZAzCQ4FM9Bmj3LiPiDc XNTEPAmhKZ0yigOeHELsCh9JO4fXTof2DiEzUnp7ZoKsNLNaLiWhPPT8IjG4QyKwFAIiHiKaSd1wZUk6 VXJ6IPT2MRClKEKsLMFrPCI9Ryf8FSGsVKG3DFDkHt VuAZ4KOa3LSqL0QOZ2rTPlOy8WAmk4SdZOXlTzIF1GFXq= ID Date Data Source [id number] 03/23/2020 12:56:11 PM [facility] Value Range Interpretation Code Description Data Hazel rce(s) Supporting Document(s) Glucose [Mass/volume] in Capillary blood by Glucometer 166 mg/dL 70- 140 H [facility] ID Date Data Source [id number] 03/23/2020 09:21:57 AM [facility] Value Range Interpretation Code Description Data Hazel rce(s) Supporting Document(s) Glucose [Mass/volume] in Capillary blood by Glucometer 183 mg/dL 70- 140 H [facility] ID Date Data Source [id number] 03/23/2020 09:13:02 AM [facility] Value Range Interpretation Code Description Data Hazel rce(s) Supporting Document(s) Leukocytes [#/volume] in Blood by Automated count 4.5 10*3/uL 4-10 [facility] Erythrocytes [#/volume] in Blood by Automated count 2.88 10*6/uL 4.6- 6.1 L [facility] Hemoglobin [Mass/volume] in Blood 9.4 g/dL 13.5-18 L [facility] Hematocrit [Volume Fraction] of Blood by Automated count 27.6 % 4 1-53 [facility] Erythrocyte mean corpuscular volume [Entitic volume] by Auto mated count 95.8 fL 80-96 [facility] Erythrocyte mean corpuscular hemoglobin [Entitic mass] by Automated count 32.8 pg 27-33 [facility] Erythrocyte mean corpuscular hemoglobin concentration [Mass/volume] by Automated count 34.2 g/dL [facility].0-[facility] width [Ratio] by Automated count 17.0 % 11.5-14.5 H [facility] Platelets [#/volume] in Blood by Automated count 119 10*3/uL 150-400 L [facility] ID Date Data Source [id number] 03/23/2020 03:44:43 PM [facility] Value Range Interpretation Code Description Data Hazel rce(s) Supporting Document(s) Bicarbonate [Moles/volume] in Serum 25 mmol/L 22-29 [facility] Chloride [Moles/volume] in Serum or Plasma 102 mmol/L 98-107 [facility] Creatinine [Mass/volume] in Serum or Plasma 0.87 mg/dL 0.70-1.20 [facility] Glucose [Mass/volume] in Serum or Plasma 170 mg/dL 70-140 H [facility] Potassium [Moles/volume] in Serum or Plasma 3.6 mmol/L 3.4-5.1 [facility] Sodium [Moles/volume] in Serum or Plasma 139 mmol/L 136-145 [facility] Urea nitrogen [Mass/volume] in Serum or Plasma 8 mg/dL 6-20 [facility] Anion gap 3 in Serum or Plasma 12 mmol/L 8-15 [facility] Osmolality of Serum or Plasma by calculation 290 mosm/kg 275-300 [facility] Creatinine/Urea nitrogen [Mass Ratio] in Serum or Plasma 9 [facility] Calcium [Mass/volume] in Serum or Plasma 7.6 mg/dL 8.6-10.0 L [facility] Glomerular filtration rate/1.73 sq M pre dicted among non-blacks [Volume Rate/Area] in Serum or Plasma by Creatinine-based formula (MDRD) >6 0 [facility] Glomerular filtration rate/1.73 sq M pre dicted among blacks [Volume Rate/Area] in Serum or Plasma by Creatinine-based formula (MDRD) >60 [facility] ID Date Data Source [id number] 03/23/2020 06:37:30 AM EDT [facility] Name Value Range Interpretation Code Description Data Hazel rce(s) Supporting Document(s) Leukocytes [#/volume] in Blood by Automated count 3.5 10*3/uL 4-10 L [facility] Erythrocytes [#/volume] in Blood by Automated count 2.09 10*6/uL 4.6- 6.1 [facility] Hemoglobin [Mass/volume] in Blood 6.6 g/dL 13.5-18 L [facility] Hematocrit [Volume Fraction] of Blood by Automated count 19.8 % 4 1-53 [facility] No significant change since last result called Erythrocyte mean corpuscular volume [Entitic volume] by Auto mated count 94.7 fL 80-96 [facility] Erythrocyte mean corpuscular hemoglobin [Entitic mass] by Automated count 31.7 pg 27-33 [facility] Erythrocyte mean corpuscular hemoglobin concentration [Mass/volume] by Automated count 33.4 g/dL 32.0-36.0 [facility] distribution width [Ratio] by Automated count 16.5 % 11.5-14.5 H [facility] Platelets [#/volume] in Blood by Automated count 93 10*3/uL 150-400 L [facility] Differential cell count method - Blood [facility] Neutrophils/100 leukocytes in Blood by Automated count 52 % [facility] Lymphocytes/100 leukocytes in Blood by Automated count 33 % [facility] Monocytes/100 leukocytes in Blood by Automated count 8 % [facility] Eosinophils/100 leukocytes in Blood by Automated count 7 % [facility] Basophils/100 leukocytes in Blood by Automated count 0 % [facility] Neutrophils [#/volume] in Blood by Automated count 1.84 10*3/uL 1.8-7 .0 [facility] Lymphocytes [#/volume] in Blood by Automated count 1.13 10*3/uL 1.2-4 .0 L [facility] Monocytes [#/volume] in Blood by Automated count 0.26 10*3/uL 0-0.8 [facility] Eosinophils [#/volume] in Blood by Automated count 0.23 10*3/uL 0-0.5 [facility] Basophils [#/volume] in Blood by Automated count 0.01 10*3/uL 0-0.2 [facility] Nucleated erythrocytes/100 leukocytes [Ratio] in Blood by Automated count 0 /100{WBCs} 0-0 [facility] ID Date Data Source [id number] 03/22/2020 11:35:13 PM [facility] Name Value Range Interpretation Code Description Data Hazel rce(s) Supporting Document(s) Leukocytes [#/volume] in Blood by Automated count 5.1 10*3/uL 4-10 [facility] Erythrocytes [#/volume] in Blood by Automated count 2.14 10*6/uL 4.6- 6.1 L [facility] Hemoglobin [Mass/volume] in Blood 6.9 g/dL 13.5-18 L [facility] Hematocrit [Volume Fraction] of Blood by Automated count 20.7 % 4 1-53 [facility] Called to and read back by sharmila villegas rn on 6a at 0 by 2050 Erythrocyte mean corpuscular volume [Entitic volume] by Auto mated count 96.6 fL 80-96 H [facility] Erythrocyte mean corpuscular hemoglobin [Entitic mass] by Automated count 32.3 pg 27-33 [facility] Erythrocyte mean corpuscular hemoglobin concentration [Mass/volume] by Automated count 33.5 g/dL 32.0-36.0 [facility] distribution width [Ratio] by Automated count 15.9 % 11.5-14.5 H [facility] Platelets [#/volume] in Blood by Automated count 112 10*3/uL 150-400 L [facility] Differential cell count method - Blood [facility] Neutrophils/100 leukocytes in Blood by Automated count 63 % [facility] Lymphocytes/100 leukocytes in Blood by Automated count 25 % [facility] Monocytes/100 leukocytes in Blood by Automated count 6 % [facility] Eosinophils/100 leukocytes in Blood by Automated count 5 % [facility] Basophils/100 leukocytes in Blood by Automated count 1 % [facility] Neutrophils [#/volume] in Blood by Automated count 3.20 10*3/uL 1.8-7 .0 [facility] Lymphocytes [#/volume] in Blood by Automated count 1.26 10*3/uL 1.2-4 .0 [facility] Monocytes [#/volume] in Blood by Automated count 0.33 10*3/uL 0-0.8 [facility] Eosinophils [#/volume] in Blood by Automated count 0.27 10*3/uL 0-0.5 [facility] Basophils [#/volume] in Blood by Automated count 0.04 10*3/uL 0-0.2 [facility] Nucleated erythrocytes/100 leukocytes [Ratio] in Blood by Automated count 0 /100{WBCs} 0-0 [facility] ID Date Data Source [id number] 03/22/2020 09:30:03 PM EDT [facility] Name Value Range Interpretation Code Description Data Hazel rce(s) Supporting Document(s) Glucose [Mass/volume] in Capillary blood by Glucometer 115 mg/dL 70- 140 [facility] ID Date Data Source [id number] 03/22/2020 05:44:56 PM EDT [facility] Name Value Range Interpretation Code Description Data Hazel rce(s) Supporting Document(s) Glucose [Mass/volume] in Capillary blood by Glucometer 238 mg/dL 70- 140 H [facility] ID Date Data Source [id number] 03/22/2020 03:22:36 PM EDT [facility] MR BILIARY TREE MRCP [id number] RESULTIn terpreted by:KEITH QuintanaPROCEDURE INFORMATION: Exam: MR Abdomen Without Contrast Exam date and time: 03/22/2020 11:00 AM Age: 55 years old Clinical indication: Essential (primary) hypertension; Abdominal pain; Generalized; Additional info: Pancreatic, bile duct dilatation, abdominal pain TECHNIQUE: Imaging protocol: MR of the abdomen without contrast. 3D rendering: MIP and/or 3D reconstructed images were created by the technologist. COMPARISON: CT ABDOMEN WITH CONTRAST [id number] 03/21/2020 5:53 AM FINDINGS: Pleura: Trace pleural [...] rce(s) Supporting Document(s) ID Date Data Source [id number] 03/22/2020 03:37:44 PM [facility] Name Value Range Interpretation Code Description Data Hazel rce(s) Supporting Document(s) Glucose [Mass/volume] in Capillary blood by Glucometer 273 mg/dL 70- 140 H [facility] ID Date Data Source [id number] 03/22/2020 01:15:26 PM [facility] Name Value Range Interpretation Code Description Data Hazel rce(s) Supporting Document(s) Leukocytes [#/volume] in Blood by Automated count 4.4 10*3/uL 4-10 [facility] Erythrocytes [#/volume] in Blood by Automated count 2.44 10*6/uL 4.6- 6.1 L [facility] Hemoglobin [Mass/volume] in Blood 8.0 g/dL 13.5-18 L [facility] Hematocrit [Volume Fraction] of Blood by Automated count 23.5 % 4 1-53 L [facility] Erythrocyte mean corpuscular volume [Entitic volume] by Auto mated count 96.6 fL 80-96 H [facility] Erythrocyte mean corpuscular hemoglobin [Entitic mass] by Automated count 32.8 pg 27-33 [facility] Erythrocyte mean corpuscular hemoglobin concentration [Mass/volume] by Automated count 34.0 g/dL 32.0-36.0 [facility] E[facility]th[facility] distribution width [Ratio] by Automated count 16.0 % 11.5-14.5 H [facility] Platelets [#/volume] in Blood by Automated count 131 10*3/uL 150-400 L [facility] Differential cell count method - Blood [facility] Neutrophils/100 leukocytes in Blood by Automated count 72 % [facility] Lymphocytes/100 leukocytes in Blood by Automated count 18 % [facility] Monocytes/100 leukocytes in Blood by Automated count 5 % [facility] Eosinophils/100 leukocytes in Blood by Automated count 4 % [facility] Basophils/100 leukocytes in Blood by Automated count 1 % [facility] Neutrophils [#/volume] in Blood by Automated count 3.18 10*3/uL 1.8-7 .0 [facility] Lymphocytes [#/volume] in Blood by Automated count 0.77 10*3/uL 1.2-4 .0 L [facility] Monocytes [#/volume] in Blood by Automated count 0.22 10*3/uL 0-0.8 [facility] Eosinophils [#/volume] in Blood by Automated count 0.17 10*3/uL 0-0.5 [facility] Basophils [#/volume] in Blood by Automated count 0.03 10*3/uL 0-0.2 [facility] Nucleated erythrocytes/100 leukocytes [Ratio] in Blood by Automated count 0 /100{WBCs} 0-0 [facility] ID Date Data Source [id number] 03/22/2020 08:17:15 AM [facility] Name Value Range Interpretation Code Description Data Hazel rce(s) Supporting Document(s) Glucose [Mass/volume] in Capillary blood by Glucometer 148 mg/dL 70- 140 H [facility] ID Date Data Source [id number] 03/22/2020 05:12:40 AM [facility] Name Value Range Interpretation Code Description Data Hazel rce(s) Supporting Document(s) Leukocytes [#/volume] in Blood by Automated count 5.0 10*3/uL 4-10 [facility] Erythrocytes [#/volume] in Blood by Automated count 2.76 10*6/uL 4.6- 6.1 L [facility] Hemoglobin [Mass/volume] in Blood 9.0 g/dL 13.5-18 L [facility] Hematocrit [Volume Fraction] of Blood by Automated count 26.5 % 4 1-53 L [facility] Erythrocyte mean corpuscular volume [Entitic volume] by Auto mated count 95.9 fL 80-96 [facility] Erythrocyte mean corpuscular hemoglobin [Entitic mass] by Automated count 32.5 pg 27-33 [facility] Erythrocyte mean corpuscular hemoglobin concentration [Mass/volume] by Automated count 33.8 g/dL 32.0-36.0 [facility] Erythrocyte distribution width [Ratio] by Automated count 15.6 % 11.5-14.5 H [facility] Platelets [#/volume] in Blood by Automated count 139 10*3/uL 150-400 L [facility] Differential cell count method - Blood [facility] Neutrophils/100 leukocytes in Blood by Automated count 56 % [facility] Lymphocytes/100 leukocytes in Blood by Automated count 33 % [facility] Monocytes/100 leukocytes in Blood by Automated count 4 % [facility] Eosinophils/100 leukocytes in Blood by Automated count 6 % [facility] Basophils/100 leukocytes in Blood by Automated count 1 % [facility] Neutrophils [#/volume] in Blood by Automated count 2.78 10*3/uL 1.8-7 .0 [facility] Lymphocytes [#/volume] in Blood by Automated count 1.64 10*3/uL 1.2-4 .0 [facility] Monocytes [#/volume] in Blood by Automated count 0.22 10*3/uL 0-0.8 [facility] Eosinophils [#/volume] in Blood by Automated count 0.29 10*3/uL 0-0.5 [facility] Basophils [#/volume] in Blood by Automated count 0.03 10*3/uL 0-0.2 [facility] Nucleated erythrocytes/100 leukocytes [Ratio] in Blood by Automated count 0 /100{WBCs} 0-0 [facility] ID Date Data Source [id number] 03/22/2020 05:24:51 AM EDT [facility] Name Value Range Interpretation Code Description Data Hazel rce(s) Supporting Document(s) Albumin [Mass/volume] in Serum or Plasma by Bromocresol green (BCG) dye binding method 3.0 g/dL 3.5-5.2 L [facility] Bilirubin.total [Mass/volume] in Serum or Plasma 0.4 mg/dL <1.2 [facility] Calcium [Mass/volume] in Serum or Plasma 8.3 mg/dL 8.6-10.0 L [facility] Chloride [Moles/volume] in Serum or Plasma 100 mmol/L 98-107 [facility] Creatinine [Mass/volume] in Serum or Plasma 0.98 mg/dL 0.70-1.20 [facility] Glucose [Mass/volume] in Serum or Plasma 201 mg/dL 70-140 H [facility] Alkaline phosphatase [Enzymatic activity/volume] in Serum or Plasma 96 U/L 40-129 [facility] Potassium [Moles/volume] in Serum or Plasma 3.5 mmol/L 3.4-5.1 [facility] Protein [Mass/volume] in Serum or Plasma 5.3 g/dL 6.4-8.3 L [facility] Sodium [Moles/volume] in Serum or Plasma 135 mmol/L 136-145 L [facility] Aspartate aminotransferase [Enzymatic activity/volume] in Serum or Plasma 34 U/L <40 [facility] Urea nitrogen [Mass/volume] in Serum or Plasma 11 mg/dL 6-20 [facility] Osmolality of Serum or Plasma by calculation 284 mosm/kg 275-300 [facility] Creatinine/Urea nitrogen [Mass Ratio] in Serum or Plasma 12 [facility] Bicarbonate [Moles/volume] in Serum 24 mmol/L 22-29 [facility] Alanine aminotransferase [Enzymatic activity/volume] in Seru m or Plasma 20 U/L <41 [facility] Anion gap 3 in Serum or Plasma 11 mmol/L 8-15 [facility] Glomerular filtration rate/1.73 sq M pre dicted among non-blacks [Volume Rate/Area] in Serum or Plasma by Creatinine-based formula (MDRD) >6 0 [facility] Glomerular filtration rate/1.73 sq M pre dicted among blacks [Volume Rate/Area] in Serum or Plasma by Creatinine-based formula (MDRD) >60 [facility] ID Date Data Source [id number] 03/22/2020 05:58:27 AM [facility] Value Range Interpretation Code Description Data Hazel rce(s) Supporting Document(s) Glucose [Mass/volume] in Capillary blood by Glucometer 203 mg/dL 70- 140 H [facility] ID Date Data Source [id number] 03/22/2020 12:55:49 AM [facility] Value Range Interpretation Code Description Data Hazel rce(s) Supporting Document(s) Glucose [Mass/volume] in Capillary blood by Glucometer 196 mg/dL 70- 140 H [facility] ID Date Data Source [id number] 03/21/2020 09:26:29 PM [facility] Value Range Interpretation Code Description Data Hazel rce(s) Supporting Document(s) Consultation [facility] VEMIKh1vQeIPLbFu01/QAHwpWFEsg7YyMVnvPAq4DGprLGXgC8OnJZP6lS2mJLD4WXpDTmVrGmCzClLh lbm [file] AgICAgICAgICAgICAgICAgICAgICAgICAgICAgICAg SXPoDKMuDVFaLNJiWQAeJUFdRVVrYTCgTAXsAGIbRUKaFVViZNMpWKWkYRGyVUCqXIWwTK6XBTDxCNYt ICAgICAgICAgICAgICAgICAgICAgICAgICAgICAgICAgICAgICAgICAgICAgICAgICAgICAgICAgICAg ICAgICAgICAgICAgICAgICAgICAgICAgICAgICAgIC CfTF5OGXLoTJWhXFCzSNLbCVIiMOFkRGRaBPWbFWYyCXDsRFVwWSXlIUXbCJPxHCAsYVLhMXRxHEEiEP JaBXOvGVScOBXgPWPhKHUgVCFrZNSxCIHiJGHhBDGlHJBaMIDnUIHmCHYwUB5WHYUrUBFrKTXiNGRqDF AgICAgICAgICAgICAgICAgICAgICAgICAgICAgICAg IBFoAHQhDZCwDILjBGSqKXDrASSlUHNaMNOqRVQqPWHsSLBlCMObPHDqXBVoYWJzYJTsVGFoWH7LDMMq ICAgICAgICAgICAgICAgICAgICAgICAgICAgICAgICAgICAgICAgICAgICAgICAgICAgICAgICAgICAg ICAgICAgICAgICAgICAgICAgICAgICAgICAgICAgIC XlKRYaWZ0ISXFsVOIxJYWbKZAeUUXyTRKeULIuPHLmYGSlWNBoAZIkFGRhLHRpGXHhPELwMLJiXCBlRS MzJIXcVYCdDXBuVBHsGXNhTQDaKUEmGBGkHNLxVQEbQWPgBBUeERUoZSZkSVXkEL2TWXNqHPEsAMBaXC AgICAgICAgICAgICAgICAgICAgICAgICAgICAgICAg IBMoZHBpCYRiWFEhQAQaEFSdDPBoMHXzTKIwQJLjLZPeEJCeFSPuDNSbXKOqRTTvGHVoDRXgRTIoSF8M ICAgICAgICAgICAgICAgICAgICAgICAgICAgICAgICAgICAgICAgICAgICAgICAgICAgICAgICAgICAg ICAgICAgICAgICAgICAgICAgICAgICAgICAgICAgIC FuBHAwLBYpEU8QKZChKTYrAJMvTIXoLOEwGQRxNHPgYWWwWFFoPURrCXVlNHAxVVBpXBGxQKQfXBIoHY QxPNXzUKHyJTVbINRiKBSjOEJgPCOtTHZaGZMcGMNtKSFqEERoFRFdVJDkZIQeWSSkWE0YKQ82uEFnw3 E4BIRhUF4kozx/Ub0TAAcraeFfkMDkFF7BLdIzLA9v xz4MRmVgQF8rqu1QBYtCOrKdU8A7qXHwMNSiTBJREgJeC77uHSikJr02FMyuBXWnBfArGXg8Xf3QNkFq K6cbCTXeBwK5QAVaWfF7PKMkFnC0VZBbZdAwYGSkDIOgSPGcIBCDUS5APqWrY6VzhZ64AEKHSw0+DQpl lqKjQvbUZyDwRZQln2CcKGc6WL7OJKNvMxoul0JkAg GlGJZEXFmyAU3CGPA7QIBhUTBiTu7HUZVeC905sqFxQU6EHf2CZePnKV6juw1QMmRhQMYnVyvSVwz9EQ jfQU2WnQOnZYmWd80fyOs3aqDmqBPUt84vqGNjSHHFzbpqf380c7rxLHZQKCGoaWH3HmPdRtRjVuQeAN P7ZBXxRS8zIRvnGX1VZTI0QEnyWASySXWeY5gISaLz TBLcNaStlXnhFH4VYzYxO9WotyUfnIZtLXGiGPBQLv0+TWrpueCnTnbEPhIoGUSmh0MzJYb2SO7SPUDa GPrdJN7XDNQxrX1uIOxiDI9LAqLnMANuCGVXGaBqX50uhSEeIXd1P2WvGvTcVBTpXeqqDJTmEQqyNsVh ZXMgWyBdDQogID4+ID4+EFzcKX0LHBgrbeQeZMUiNp 2ZDXKxLXMsSA1oWHKmZHFeY4A4fMgaBQEZJaXrR8jwoowcRI5sHEXmI105vDzjceKzWKGmQNHxLd3SGX CkWMU2AXHphADtSsiuBTPMOKuoTL5ThSJiVFK2wP1rVMeyKTRsXMOdH1zOTbOvySkaCX30qEnsdnEbpZ BdDQo+Xe2ESE9hi7UmEDn6faXlTVrsPUKmUZuzVGYo CVHuIZWgWBH4OCR7VQGBWxIoXVQpDCSySZjqOSZoNLGopb0FTUQyFROdVWZuWwXyMPEqRMIdKKmoAVVn NHI0KxP9CDQpKCNaKK3YLoEfBGEcRHUoFJmiACTmMARytq4QUDEpEYDoRpZ1VuMfCCTgLBRsTYhxBRUj RJLfWqJqLQQzVXYvUJ0YNnMxZEJqPOZ9SBAhZILlRO Sbxw7RCABvTRBfTnNbQWJqZUPeQGAlMOaqDLOcJLWiIXS8YQLoRILsWA4MVaLvMZEtNNNwVQjsMAOhKN Vznn5IFOFpNWJmKmIaWKJlNJFjCVIdCKitWPIlQZU6TpSlRSZiXKAzSA3KXlMrVZLuHFm2QCguUTQxNN Wfzl8SISBpLAEgReelNOSrKSTwARMfILffBGRhZUD1 OoN9EQJgPQKuMS6JPxJyQWMsFRe5AfJtMHInBEMytx6ZIQFgNMEkWLH7WQBtUYNlTJIvIInlRFYgSPFg XNRvOIRpWPKhMU8BWwReHQRpOpLrIEBzXPMfVTTphe8NGKEuZEMcHXD2HnQgWRNoGPNwTEcwGKIyUJJy Iho2XGXcCCTdIC9GNpLcOREzFeUkKPVaWEWvJPUzpc 3BQOZcVSGvDwRtBTTfVYEoXCUiUSjnBCCaNLTqAMT2OGUhMGHpSL2MStTpKGWwTbK9UNYnNZJmHBDsnz 9BZUApLVIiLgGxIZYjHHYzDRTcCEutBZOoKNNiAIGoLVThRXZgLG3JWvUgKSEtNsKsOEErFIObKQRquv 5LCEPuYIDrDTLqYsUrFYYgCBTuMXrsKZSrDDU9WOlb VKSnNPSyJV3UWlUfZCRgAwF8ESOhOHVkSDPlwr0WNPWiDEUkTvPlDLWoEWRoZXSjIAx6uqNilCZzQOx5 XP5VQ0JaslNmRyFXVj7Pn519HMAnFNFxQf0VT2byHx4xDFBhQPMMSk1LUQa4QFGhYvD0VFN3CVSxFRxh SFWaCFQ3BRapUdRpIrVyFQR+VTn9BHVxRVN8DpLyEZ ZzILOqHWEiHpZcUgEvYJCyRTL4BM6zLOPJXr4+ORpnqJInrWmoTRUWRcP5WdE3IVtmCQOPGm9U ID Date Data Source [id number] 03/21/2020 09:12:58 PM EDT [facility] Name Value Range Interpretation Code Description Data Hazel rce(s) Supporting Document(s) Consultation [facility] QNFKSm2qPyCYGzOv67/JTPgyMPQda3HxFQohNXr2AAmdDMXxQ7VcFOV5cT4iFOT7FHsDKdDsHuMbBhZv lbm [file] G8ISYbHxh3Pw3oOIWLFg2+EJtseSUabVgkOFBBJozsSUhfRTdjDBUEAm7M ID Date Data Source [id number] 03/21/2020 09:51:13 PM EDT [facility] Name Value Range Interpretation Code Description Data Hazel rce(s) Supporting Document(s) Leukocytes [#/volume] in Blood by Automated count 3.6 10*3/uL 4-10 L [facility] Erythrocytes [#/volume] in Blood by Automated count 2.45 10*6/uL 4.6- 6.1 L [facility] Hemoglobin [Mass/volume] in Blood 8.1 g/dL 13.5-18 L [facility] Hematocrit [Volume Fraction] of Blood by Automated count 23.9 % 4 1-53 L [facility] Erythrocyte mean corpuscular volume [Entitic volume] by Auto mated count 97.8 fL 80-96 H [facility] Erythrocyte mean corpuscular hemoglobin [Entitic mass] by Automated count 33.0 pg 27-33 [facility] Erythrocyte mean corpuscular hemoglobin concentration [Mass/volume] by Automated count 33.8 g/dL 32.0-36.0 [facility] E[facility]th[facility] distribution width [Ratio] by Automated count 16.2 % 11.5-14.5 H [facility] Platelets [#/volume] in Blood by Automated count 124 10*3/uL 150-400 L [facility] Differential cell count method - Blood [facility] Neutrophils/100 leukocytes in Blood by Automated count 60 % [facility] Lymphocytes/100 leukocytes in Blood by Automated count 28 % [facility] Monocytes/100 leukocytes in Blood by Automated count 7 % [facility] Eosinophils/100 leukocytes in Blood by Automated count 4 % [facility] Basophils/100 leukocytes in Blood by Automated count 1 % [facility] Neutrophils [#/volume] in Blood by Automated count 2.16 10*3/uL 1.8-7 .0 [facility] Lymphocytes [#/volume] in Blood by Automated count 0.99 10*3/uL 1.2-4 .0 L [facility] Monocytes [#/volume] in Blood by Automated count 0.26 10*3/uL 0-0.8 [facility] Eosinophils [#/volume] in Blood by Automated count 0.14 10*3/uL 0-0.5 [facility] Basophils [#/volume] in Blood by Automated count 0.03 10*3/uL 0-0.2 [facility] Nucleated erythrocytes/100 leukocytes [Ratio] in Blood by Automated count 0 /100{WBCs} 0-0 [facility] ID Date Data Source [id number] 03/21/2020 05:23:46 PM EDT [facility] Name Value Range Interpretation Code Description Data Hazel rce(s) Supporting Document(s) Glucose [Mass/volume] in Capillary blood by Glucometer 138 mg/dL 70- 140 [facility] ID Date Data Source [id number] 03/21/2020 05:06:57 PM EDT [facility] NM GI BLOOD LOSS IMAGING [id number] RESU LTInterpreted by:Bebeto Torres, DOIMARKICATION: GI bleedTECHNIQUE: [...] rce(s) Supporting Document(s) ID Date Data Source [id number] 03/21/2020 02:42:34 PM EDT [facility] Name Value Range Interpretation Code Description Data Hazel rce(s) Supporting Document(s) Leukocytes [#/volume] in Blood by Automated count 3.8 10*3/uL 4-10 L [facility] Erythrocytes [#/volume] in Blood by Automated count 2.69 10*6/uL 4.6- 6.1 L [facility] Hemoglobin [Mass/volume] in Blood 8.7 g/dL 13.5-18 L [facility] Hematocrit [Volume Fraction] of Blood by Automated count 26.0 % 4 1-53 L [facility] Erythrocyte mean corpuscular volume [Entitic volume] by Auto mated count 96.8 fL 80-96 H [facility] Erythrocyte mean corpuscular hemoglobin [Entitic mass] by Automated count 32.4 pg 27-33 [facility] Erythrocyte mean corpuscular hemoglobin concentration [Mass/volume] by Automated count 33.5 g/dL 32.0-36.0 [facility] Erythrocyte distribution width [Ratio] by Automated count 16.1 % 11.5-14.5 H [facility] Platelets [#/volume] in Blood by Automated count 135 10*3/uL 150-400 L [facility] ID Date Data Source [id number] 03/21/2020 01:56:17 PM EDT [facility] Value Range Interpretation Code Description Data Hazel rce(s) Supporting Document(s) Sodium [Moles/volume] in Urine 99 mmol/L [facility] ID Date Data Source [id number] [facility] Code Description Data Hazel rce(s) Supporting Document(s) Glucose [Mass/volume] in Capillary blood by Glucometer 122 mg/dL 70- 140 [facility] ID Date Data Source [id number] 03/[facility]/2020 [facility] Interpretation Code Description Data Hazel rce(s) Supporting Document(s) Lactate [Moles/volume] in Serum or Plasma 1.4 mmol/l 0.5-2.2 [facility] ID Date Data Source [id number] 03/21/2020 [facility]:28[facility] Interpretation Code Description Data Hazel rce(s) Supporting Document(s) Osmolality of Serum or Plasma 285 mosm/kg 285-295 [facility] ID Date Data Source [id number] 03/21/2020 09:03[facility] Interpretation Code Description Data Hazel rce(s) Supporting Document(s) EKG [facility] QWNIHp7nBoKPPvYlw1HkImVpUZWnRX9yksi5H0X1pCMsM9SmaJKqk2rlY6BrC5NqPEJuQSWXPX4BmKRq jb2 [file] NOVY0oQKTVKaKAyY6pJDmJG5BAVRHezKM6RFfGQHTI 7NSPNP9wZHMSDtUJRY7lKAjNO5YSMURuiGBsMDxZT2CJ5hRHCX9cYPQWDsCOXE9xoQVTW6zKICNqtQTy HEkuDaSR9jWDGp4kFJPWWnFV8B2dkOZFt3tEVNtkbIRCXNzvAFRV25GSYx2pUYkJCEBl+28VzgEmIVP2 eGBXg4tsctqqClICCR1A3JQ5hwVcBO0g4ZF3wagpQO 0z3MR3vnhxWredNTBlUx9bwK+1aOrbxvFdgq+uvAcdSwThLM1LxUySR2Pgclkb7Srhdjt7Xk0s80rccK Y8z25Lj+ax8dvpR6/MyUJbvmI4wd7HiCWHjP/CQNJFaUu50d9Zss51NTLFRamvw69umaVrbR/PQXYYeR ev4j8WWh28dFgHY+nn6e37yYozP0VGktEnUdHp67W2 w95Oz3PTdQ/GGqECoVxv7d8EJf36jOfUg/+pCyD+yXH9A0Ds5wE6i+pL/mINeicmgnHwB49ZMpZ0QfZp TsQ/xHy5Z9GO/0iREB8R6yClGs/idXzg8mD18M1Lv9tn5z+5D+4JZxz53icdVKk3/lDSHhNsptjNsYtz WrN6oxqKsLtHw5YrvVgN5nC+f9qp8X3kX4QT5I2LGo l9toLxfD5XGuf5IaAzmZ8ZBlv93eQvyE5FVri9lDIlmzf/Lx55vhOuj9wGx1/vPmK0hgEkY4nHD+Ia1T ECbY2dwIvV7meFJJ7teAfsk9xlKek5ivJwP9g5d4jj5//stbyqe7R6tQljb465/+rm8qAFkuSjsYe/manager learning [file] kb8yTlQF/5r//terry cloth cutter hand/+H/+Wf/+M///X/+fhdd1lx9Bn2w/b9GP/E0kvcpAx+8ATWvj/xLnc/STqgr5zeFj [file] HfL5FWR8gSXaZwy3KoUiSVeuGUCIDx== ID Date Data Source [id number] 03/21/2020 12:24:04 PM EDT [facility] Name Value Range Interpretation Code Description Data Hazel rce(s) Supporting Document(s) Glucose [Mass/volume] in Capillary blood by Glucometer 129 mg/dL 70- 140 [facility] ID Date Data Source [id number] 03/21/2020 07:07:53 AM T [facility] CT ABDOMEN WITH CONTRAST [id number] RESU LTInterpreted by:LENKA MinorROCEDURE INFORMATION: Exam: CT [...] MDThis document has been electronically signed by Lewsi Duff MD on 03/21/2020 7:07 AM Name Value Range Interpretation Code Description Data [facility] rce(s) Supporting Document(s) ID Date Data Source [id number] 03/21/2020 06:22:38 AM [facility] Name Value Range Interpretation Code Description Data [facility] Supporting Document(s) Leukocytes [#/volume] in Blood by Automated count 4.2 10*3/uL 4-10 [facility] Erythrocytes [#/volume] in Blood by Automated count 2.75 10*6/uL 4.6- 6.1 L [facility] Hemoglobin [Mass/volume] in Blood 8.8 g/dL 13.5-18 L [facility] Hematocrit [Volume Fraction] of Blood by Automated count 26.4 % 4 1-53 L [facility] Erythrocyte mean corpuscular volume [Entitic volume] by Auto mated count 95.9 fL 80-96 [facility] Erythrocyte mean corpuscular hemoglobin [Entitic mass] by Automated count 32.1 pg 27-33 [facility] Erythrocyte mean corpuscular hemoglobin concentration [Mass/volume] by Automated count 33.5 g/dL 32.0-36.0 [facility] width [Ratio] by Automated count 15.8 % 11.5-14.5 H [facility] Platelets [#/volume] in Blood by Automated count 143 10*3/uL 150-400 L [facility] Differential cell count method - Blood [facility] Neutrophils/100 leukocytes in Blood by Automated count 70 % [facility] Lymphocytes/100 leukocytes in Blood by Automated count 22 % [facility] Monocytes/100 leukocytes in Blood by Automated count 6 % [facility] Eosinophils/100 leukocytes in Blood by Automated count 1 % [facility] Basophils/100 leukocytes in Blood by Automated count 1 % [facility] [facility] Neutrophils [#/volume] in Blood by Automated count 2.95 10*3/uL 1.8-7 .0 [facility] Lymphocytes [#/volume] in Blood by Automated count 0.92 10*3/uL 1.2-4 .0 L [facility] Monocytes [#/volume] in Blood by Automated count 0.25 10*3/uL 0-0.8 [facility] Eosinophils [#/volume] in Blood by Automated count 0.05 10*3/uL 0-0.5 [facility] Basophils [#/volume] in Blood by Automated count 0.02 10*3/uL 0-0.2 [facility] Nucleated erythrocytes/100 leukocytes [Ratio] in Blood by Automated count 0 /100{WBCs} 0-0 [facility] ID Date Data Source [id number] 03/21/2020 06:40:49 AM EDT [facility] Name Value Range Interpretation Code Description Data Hazel rce(s) Supporting Document(s) Albumin [Mass/volume] in Serum or Plasma by Bromocresol green (BCG) dye binding method 3.3 g/dL 3.5-5.2 [facility] Bilirubin.total [Mass/volume] in Serum or Plasma 0.7 mg/dL <1.2 [facility] Calcium [Mass/volume] in Serum or Plasma 7.7 mg/dL 8.6-10.0 L [facility] Chloride [Moles/volume] in Serum or Plasma 97 mmol/L 98-107 L [facility] Creatinine [Mass/volume] in Serum or Plasma 0.93 mg/dL 0.70-1.20 [facility] Glucose [Mass/volume] in Serum or Plasma 142 mg/dL 70-140 H [facility] Alkaline phosphatase [Enzymatic activity/volume] in Serum or Plasma 99 U/L 40-129 [facility] Potassium [Moles/volume] in Serum or Plasma 3.5 mmol/L 3.4-5.1 [facility] Protein [Mass/volume] in Serum or Plasma 5.3 g/dL 6.4-8.3 L [facility] Sodium [Moles/volume] in Serum or Plasma 132 mmol/L 136-145 L [facility] Aspartate aminotransferase [Enzymatic activity/volume] in Serum or Plasma 42 U/L <40 H [facility] Urea nitrogen [Mass/volume] in Serum or Plasma 15 mg/dL 6-20 [facility] Osmolality of Serum or Plasma by calculation 277 mosm/kg 275-300 [facility] Creatinine/Urea nitrogen [Mass Ratio] in Serum or Plasma 16 [facility] Bicarbonate [Moles/volume] in Serum 23 mmol/L 22-29 [facility] Alanine aminotransferase [Enzymatic activity/volume] in Seru m or Plasma 23 U/L <41 [facility] Anion gap 3 in Serum or Plasma 12 mmol/L 8-15 [facility] Glomerular filtration rate/1.73 sq M pre dicted among non-blacks [Volume Rate/Area] in Serum or Plasma by Creatinine-based formula (MDRD) >6 0 [facility] Glomerular filtration rate/1.73 sq M pre dicted among blacks [Volume Rate/Area] in Serum or Plasma by Creatinine-based formula (MDRD) >60 [facility] ID Date Data Source [id number] 03/21/2020 06:36:33 AM EDT [facility] Name Value Range Interpretation Code Description Data Hazel rce(s) Supporting Document(s) ABO and Rh group [Type] in Blood [facility] Blood bank comment [facility] ID Date Data Source [id number] [facility] Value Range Interpretation Code Description Data Hazel rce(s) Supporting Document(s) History and Physical [facility] LEBMMn3wEjOHDeUp78/UKRopORGvk7SbCPdmJLa3PLpyRBUuT5OxCJC0pC0pXZW4TQwBTjUwCdEwAvAp [facility] XoLaoSFiPpSYOySkeNPwFhTIyqTjfrkKEvWN8ZhXV8CIUcW51tIENmJBShA0GvLPQ6WFH+Wu0DFJFifG DrOS2NOqyR6X7sC6gMHz3+Vfc/AGZW9OZZAPG1r16gUYUjJJlgt+uq+YInVI69dqdwF+8jD6tOp50qE6 nyOYTE1L1ATzJdidw78/SMlcr/+7UhP97nUHmd//LP FDJD9Tv2/H7eTqbqq3FIb6XM4ORsGv9k/aH437JXH5x0NElKcdxkIel8mpfvXr9ExWEGyv78q62mr7hs jmBJb0DC27tNJH4lG+cYh2cfam1HGe3+5BLaqgsv4s2RQz/kF8Gmeq1xftvguGCj0IMwBBA8xZnlU0eR Im1qNu6oS1gEx4yxxMwIk8Cugx3Rv55LMy6tGY/Lanye [file] ID Date Data Source [id number] 03/21/2020 01:09:29 AM [facility] Service Cmnt XXX-Imp : NoneMicroorganism XXX Cult : POSITIVE for fecal occult blood by immunochromatography. This test only detects blood (hemoglobin) from the lower GI tract. To detect bleeding from the upper tract, order Fecal Occult Blood, Upper GI (Hemoccult-SENSA). Name Value Range Interpretation Code Description Data Hazel rce(s) Supporting Document(s) ID Date Data Source [id number] 03/21/2020 02:16:22 AM [facility] Name Value Range Interpretation Code Description Data Hazel rce(s) Supporting Document(s) Amphetamine [Presence] in Urine by Screen method Negative [facility] Benzodiazepines [Presence] in Urine by Screen method Negat [facility] Cannabinoids [Presence] in Urine by Screen method Negative [facility] Benzoylecgonine [Presence] in [facility]adone [Presence] in Urine by Screen method Negative [facility] Opiates [Presence] in Urine by Screen method Negative [facility] Oxycodone [Presence] in Urine by Screen method Negative [facility] Fentanyl+Norfentanyl [Presence] in Urine by Screen method Negative [facility] Service comment [facility] Results below the indicated cutoff (ng/m L), are reported as"Negative." Note: for medical purposes only; not valid for legalor employment testing. ID Date Data Source [id number] 03/21/2020 01:54:02 AM [facility] Value Range Interpretation Code Description Data Hazel rce(s) Supporting Document(s) Hepatitis C virus Ab [Presence] in Serum or Plasma by Immuno assay Non Reactive [facility] Past or current Hepatitis C infection. S sonny forwarded to reference laboratory for quantitative HCV RNA testing. ID Date Data Source [id number] 03/25/2020 07:23:25 AM [facility] Value Range Interpretation Code Description Data Hazel rce(s) Supporting Document(s) ABO and Rh group [Type] in Blood [facility] Blood group antibody screen [Presence] in Serum or Plasma [facility] 03/24/2020,0000Performed at [place], [place] ID Date Data Source [id number] 03/21/2020 01:14:21 AM [facility] Value Range Interpretation Code Description Data Hazel rce(s) Supporting Document(s) Prothrombin time (PT) 14.6 s 12.5-14.9 [facility] INR in Platelet poor plasma by Coagulation assay 1.12 [facility] Routine intensity oral anticoagulation I NR is typically 2.0-3.0. Target INR must be clinically individualized. ID Date Data Source [id number] 03/21/2020 01:22:32 AM [facility] Value Range Interpretation Code Description Data Hazel rce(s) Supporting Document(s) Ethanol [Mass/volume] in Serum or Plasma 0.04 g/dl Negative [facility] ID Date Data Source [id number] 03/21/2020 01:22:32 AM T [facility] Name Value Range Interpretation Code Description Data Hazel rce(s) Supporting Document(s) Creatine kinase [Enzymatic activity/volume] in Serum or Plasma 551 U/L 20-200 H [facility] ID Date Data Source [id number] 03/21/2020 01:22:32 AM [facility] Name Value Range Interpretation Code Description Data Hazel rce(s) Supporting Document(s) Lipase [Enzymatic activity/volume] in Serum or Plasma 16 U/L 13-6 0 [facility] ID Date Data Source [id number] 03/21/2020 01:22:32 AM [facility] Name Value Range Interpretation Code Description Data Hazel rce(s) Supporting Document(s) Albumin [Mass/volume] in Serum or Plasma by Bromocresol green (BCG) dye binding method 2.9 g/dL 3.5-5.2 [facility] Bilirubin.total [Mass/volume] in Serum or Plasma 0.6 mg/dL <1.2 [facility] Calcium [Mass/volume] in Serum or Plasma 7.8 mg/dL 8.6-10.0 L [facility] Chloride [Moles/volume] in Serum or Plasma 104 mmol/L 98-107 [facility] Creatinine [Mass/volume] in Serum or Plasma 0.94 mg/dL 0.70-1.20 [facility] Glucose [Mass/volume] in Serum or Plasma 125 mg/dL 70-140 [facility] Alkaline phosphatase [Enzymatic activity/volume] in Serum or Plasma 89 U/L 40-129 [facility] Potassium [Moles/volume] in Serum or Plasma 4.0 mmol/L 3.4-5.1 [facility] Protein [Mass/volume] in Serum or Plasma 5.0 g/dL 6.4-8.3 L [facility] Sodium [Moles/volume] in Serum or Plasma 139 mmol/L 136-145 [facility] Aspartate aminotransferase [Enzymatic activity/volume] in Serum or Plasma 44 U/L <40 H [facility] Urea nitrogen [Mass/volume] in Serum or Plasma 17 mg/dL 6-20 [facility] Osmolality of Serum or Plasma by calculation 290 mosm/kg 275-300 [facility] Creatinine/Urea nitrogen [Mass Ratio] in Serum or Plasma 18 [facility] Bicarbonate [Moles/volume] in Serum 19 mmol/L 22-29 L [facility] Alanine aminotransferase [Enzymatic activity/volume] in Seru m or Plasma 22 U/L <41 [facility] Anion gap 3 in Serum or Plasma 16 mmol/L 8-15 H [facility] Glomerular filtration rate/1.73 sq M pre dicted among non-blacks [Volume Rate/Area] in Serum or Plasma by Creatinine-based formula (MDRD) >6 0 [facility] Glomerular filtration rate/1.73 sq M pre dicted among blacks [Volume Rate/Area] in Serum or Plasma by Creatinine-based formula (MDRD) >60 [facility] ID Date Data Source [id number] 03/21/2020 02:05:32 AM [facility] Name Value Range Interpretation Code Description Data Hazel rce(s) Supporting Document(s) Magnesium [Mass/volume] in Serum or Plasma 1.6 mg/dL 1.6-2.6 [facility] ID Date Data Source [id number] 03/21/2020 02:05:32 AM [facility] Value Range Interpretation Code Description Data Hazel rce(s) Supporting Document(s) Phosphate [Mass/volume] in Serum or Plasma 3.2 mg/dL 2.5-4.5 [facility] ID Date Data Source [id number] 03/21/2020 01:54:16 AM [facility] Value Range Interpretation Code Description Data Hazel rce(s) Supporting Document(s) Leukocytes [#/volume] in Blood by Automated count 4.8 10*3/uL 4-10 [facility] Erythrocytes [#/volume] in Blood by Automated count 2.54 10*6/uL 4.6- 6.1 L [facility] Hemoglobin [Mass/volume] in Blood 8.1 g/dL 13.5-18 L [facility] Hematocrit [Volume Fraction] of Blood by Automated count 24.3 % 4 1-53 L [facility] Erythrocyte mean corpuscular volume [Entitic volume] by Auto mated count 95.8 fL 80-96 [facility] Erythrocyte mean corpuscular hemoglobin [Entitic mass] by Automated count 31.7 pg 27-33 [facility] Erythrocyte mean corpuscular hemoglobin concentration [Mass/volume] by Automated count 33.1 g/dL 32.0-36.0 [facility] distribution width [Ratio] by Automated count 16.2 % 11.5-14.5 H [facility] Platelets [#/volume] in Blood by Automated count 138 10*3/uL 150-400 L [facility] Differential cell count method - Blood [facility] Neutrophils/100 leukocytes in Blood by Automated count 62 % [facility] Lymphocytes/100 leukocytes in Blood by Automated count 28 % [facility] Monocytes/100 leukocytes in Blood by Automated count 6 % [facility] Eosinophils/100 leukocytes in Blood by Automated count 3 % [facility] Basophils/100 leukocytes in Blood by Automated count 1 % [facility] Neutrophils [#/volume] in Blood by Automated count 3.01 10*3/uL 1.8-7 .0 [facility] Lymphocytes [#/volume] in Blood by Automated count 1.32 10*3/uL 1.2-4 .0 [facility] Monocytes [#/volume] in Blood by Automated count 0.27 10*3/uL 0-0.8 [facility] Eosinophils [#/volume] in Blood by Automated count 0.14 10*3/uL 0-0.5 [facility] Basophils [#/volume] in Blood by Automated count 0.03 10*3/uL 0-0.2 [facility] Nucleated erythrocytes/100 leukocytes [Ratio] in Blood by Automated count 0 /100{WBCs} 0-0 [facility] ID Date Data Source [id number] 03/21/2020 01:37:06 AM [facility] Value Range Interpretation Code Description Data Hazel rce(s) Supporting Document(s) HIV 1+2 Ab+HIV1 p24 Ag [Presence] in Serum or Plasma by Immu noassay Non Reactive [facility] Negative for HIV-1 p24 antigenand HIV-1/ HIV-2 antibodies. Nolaboratory evidence of HIVinfection. ID Date Data Source [id number] 03/21/2020 01:20:12 AM [facility] Value Range Interpretation Code Description Data Hazel rce(s) Supporting Document(s) Lactate [Moles/volume] in Serum or Plasma 3.0 mmol/l 0.5-2.2 H [facility] ID Date Data Source [id number] 03/21/2020 02:41:56 AM EDT [facility] Name Value Range Interpretation Code Description Data Hazel rce(s) Supporting Document(s) Glucose [Mass/volume] in Capillary blood by Glucometer 126 mg/dL 70- 140 [facility] ID Date Data Source [id number] 02/24/2020 11:43:04 AM EDT [facility] [...] of maxillary and mandibular dentures, sent to [facility] to finalize.Temperature: 98.1 passed COVID questionaireAdditional [...] rce(s) Supporting Document(s) ID Date Data Source [id number] 11/26/2019 01:47:09 PM EDT [facility] [...] (Breann =A2).[place]: teeth set in wax, Sae eJsus DDS by luciana (11/26/2019 2:54 PM): Tooth Notes and Watches: Assessment & Plan Medications:BD INSULIN SYR ULTRAFINE II 31G X 5/16" 0.3 MLTRAMADOL HCL 50 MG ORAL TABLETATENOLOLGLUCAPHAGE Name Value Range Interpretation Code Description Data Hazel rce(s) Supporting Document(s) ID Date Data Source [id number] 11/05/2019 09:59:09 AM EST [facility] Current Medications: BD [...] rce(s) Supporting Document(s) ID Date Data Source [id number] 10/31/2019 09:26:48 AM [facility] Current Medications: BD INSULIN SYR ULTR [...] rce(s) Supporting Document(s) ID Date Data Source [id number] 10/25/2019 04:34:00 PM EST [facility] ([facility]) Name Value Range Interpretation Code Description Data Hazel rce(s) Supporting Document(s) Laboratory test finding (navigational concept) <pending> [facility] ([facility]) ID Date Data Source [id number] 10/24/2019 12:43:00 PM EST [facility] ([facility]) Name Value Range Interpretation Code Description Data Hazel rce(s) Supporting Document(s) Platelets [#/volume] in Blood by Automated count 328 10 150-450 [facility] ([facility]) ID Date Data Source [id number] 10/24/2019 12:43:00 PM EST [facility] ([facility]) Name Value Range Interpretation Code Description Data Hazel rce(s) Supporting Document(s) Inr 0.96 [facility] ([facility]) THERAPUTIC HUMAN INR VALUES INDICATIONS NORMAL RANGES PROPHYLAXIS/TREATMENT OF: VENOUS THROMBOSIS 2.0-3.0 PULMONARY EMBOLISM 2.0-3.0 PREVENTION OF SYSTEMIC EMBOLISM FROM: TISSUE HEART VALVES 2.0-3.0 ACUTE MYOCARDIAL INFARCTION 2.0-3.0 VALVULAR HEART DISEASE 2.0-3.0 ATRIAL FIBRILLATION 2.0-3.0 MECHANICAL VALVES(HIGH RISK) 2.5-3.5 RECURRENT MYOCARDIAL INFARCTION 2.5-3.5 Prothrombin Time 12.5 s 11.8-14.0 [facility] ([facility]) Partial Thromboplastin Time 24.9 s 25.0-38.4 [facility] ([facility]) ID Date Data Source TESTOSTERONE FREE & TOTAL 10/24/2019 12:00:00 AM EST eCW1 ([facility]) Name Value Range Interpretation Code Description Data Hazel rce(s) Supporting Document(s) 6.1 7.2-24.0 TESTOSTERONE FREE (DIRECT ) eCW1 ([facility]) 981.0 [id number] TESTOSTERONE TOTAL FOR T& D eCW1 ([facility]) ID Date Data Source PROLACTIN 10/24/2019 12:00:00 AM EST eCW1 ([facility]) Name Value Range Interpretation Code Description Data Hazel rce(s) Supporting Document(s) 7.2 2.1-17.7 PROLACTIN eCW1 ([facility]) ID Date Data Source FREE T4 & TSH PANEL 10/24/2019 12:00:00 AM EST eCW1 ([facility]) Name Value Range Interpretation Code Description Data Hazel rce(s) Supporting Document(s) 0.99 0.76-1.46 FREE T4 eCW1 ([facility]) 1.260 0.358-3.740 THYROID STIMULATING HORM ONE eCW1 ([facility]) ID Date Data Source FSH & LH EVAL 10/24/2019 12:00:00 AM EST eCW1 ([facility]) Name Value Range Interpretation Code Description Data Hazel rce(s) Supporting Document(s) 8.2 1.4-18.1 FOLLICLE STIMULATING HORM ONE eCW1 ([facility]) 14.3 1.5-9.3 LUTEINIZING HORMONE eCW1 ([facility]) ID Date Data Source [id number] 10/11/2019 02:13:16 PM [facility] Current Medications: BD INSULIN SYR ULTR [...] - CDT Code - Description[E] Missing - Colony and Root On #1 Surface O Region [...] rce(s) Supporting Document(s) ID Date Data Source [id number] 10/03/2019 10:38:24 AM [facility] Vital SignsBlood Pressure: 154/92 Patient History Medical History:Ipkno-Tcfrqgcuu-Qsbva SyndromeHBPArthritisDiabetesMental Health problemFamily History:Diabetes (Mother)Heart disease (Mother, Fa ther)Hypertension (Mother)Social/Personal History: Smoking Status: current every day smokerCurrent Medications: * ATENOLOL * GLUCAPHAGE Past Medical History:Aohyu-Nawmruymo-Bzkan SyndromeHBPArthritisDiabetesMental Health problem Dental Chart: Procedures:Type - CDT Code - Description C - (D2222) No Charge Visit (Performed by Kelli Loera) Chart Notes:jadyn (Oct 03 2019 11:05AM): Patient presented for [employer] comp exam. Patient said that he had broken his upper complete denture. Patient was not informed by the front desk supervisor that we do not fabricate dentures at [facility]. Talked to Laurence, and Laurence decided to have patient have aa consult with Dr. Slaughter at [facility]. Patient was willing to travel. Patient had his complete denture done at [facility], but they are not taking his [...] RISK) 09/23/2019 12:00:00 AM EST eCW1 ( [facility]) Name Value Range Interpretation Code Description Data Hazel rce(s) Supporting Document(s) Triglyceride [Mass/volume] in Serum or Plasma by calculation 198 <150 TRIGLYCERIDES LEVEL eCW1 ([facility]) Cholesterol [Moles/volume] in Serum or Plasma 142 <200 CHOLESTEROL LEVEL eCW1 ([facility]) 108 NON-HDL-C eCW1 ([facility]) Cholesterol in LDL [Mass/volume] in Serum or Plasma by calculation 68 <100 LDL CHOLESTEROL eCW1 ([facility]) Cholesterol in HDL [Moles/volume] in Serum or Plasma 34 >40 HDL CHOLESTEROL eCW1 ([facility]) 4.176 <5 CHOLESTEROL RISK RATIO eCW1 ([facility]) Procedure Social History Code Duration Value Status Description Data Source(s ) Smoking 10/05/2020 12:00:00 AM EST Current Smoker completed Curre nt Smoker eCW1 ([facility]) Smoking 10/05/2020 12:00:00 AM EST Current Smoker completed Curre nt Smoker eCW1 ([facility]) Smoking 10/05/2020 12:00:00 AM EST Current Smoker completed Curre nt Smoker eCW1 ([facility]) Smoking 09/07/2020 12:00:00 AM EST Current Smoker completed Curre nt Smoker eCW1 ([facility]) Smoking 09/07/2020 12:00:00 AM EST Current Smoker completed Curre nt Smoker eCW1 ([facility]) Smoking 09/07/2020 12:00:00 AM EST Current Smoker completed Curre nt Smoker eCW1 ([facility]) Alcohol intake 03/20/2020 12:00:00 AM EDT Current drinker of al cohol (finding) completed Current drinker of alcohol (finding) [facility] Tobacco use and exposure 03/20/2020 12:00:00 AM EDT Current user co mpleted Current user [facility] Cigarette pack-years 03/20/2020 12:00:00 AM EDT UNK completed [facility] Cigarettes smoked current (pack per day) - Reported 03/20/20 12:00:00 AM EDT UNK completed [facility] Smoking 03/20/2020 12:00:00 AM EDT Current every day smoker co mpleted Current every day smoker [facility] Cigarette pack-years 03/20/2020 12:00:00 AM EDT UNK completed [facility] Cigarettes smoked current (pack per day) - Reported 03/20/20 12:00:00 AM EDT UNK completed [facility] Smoking 03/20/2020 12:00:00 AM EDT Current every day smoker co mpleted Current every day smoker [facility] Smoking 12/09/2019 12:00:00 AM EDT Current Smoker completed Curre nt Smoker eCW1 ([facility]) Smoking 12/09/2019 12:00:00 AM EDT Current Smoker completed Curre nt Smoker eCW1 ([facility]) Smoking 12/09/2019 12:00:00 AM EDT Current Smoker completed Curre nt Smoker eCW1 ([facility]) Smoking 12/09/2019 12:00:00 AM EDT Current Smoker completed Curre nt Smoker eCW1 ([facility]) Smoking 12/09/2019 12:00:00 AM EDT Current Smoker completed Curre nt Smoker eCW1 ([facility]) Smoking 12/09/2019 12:00:00 AM EDT Current Smoker completed Curre nt Smoker eCW1 ([facility]) Vital Signs ID Date Data Source UNK Name Value Range Interpretation Code Description Data Source(s) Diastolic blood pressure 90 mm[Hg] 90 mm[Hg] eCW1 ([facility]) Systolic blood pressure 160 mm[Hg] 160 mm[Hg] e CW1 ([facility]) Body temperature 99.9 [degF] 99.9 [degF] eCW1 ( [facility]) Respiratory rate 18 /min 18 /min eCW1 ([facility]) Heart rate 111 /min 111 /min eCW1 ([facility]) Body mass index (BMI) [Ratio] 25.04 kg/m2 25.04 kg/m2 eCW1 ([facility]) Body height 69 [in_i] 69 [in_i] eCW1 ([facility]) Body weight 169.6 [lb_av] 169.6 [lb_av] eCW1 ([facility]) Diastolic blood pressure 90 mm[Hg] 90 mm[Hg] eCW1 ([facility]) Systolic blood pressure 144 mm[Hg] 144 mm[Hg] e CW1 ([facility]) Body temperature 97.2 [degF] 97.2 [degF] eCW1 ( [facility]) Respiratory rate 20 /min 20 /min eCW1 ([facility]) Heart rate 73 /min 73 /min eCW1 ([facility]) Body mass index (BMI) [Ratio] 26.14 kg/m2 26.14 kg/m2 eCW1 ([facility]) Body height 69 [in_i] 69 [in_i] eCW1 ([facility]) Body weight 177 [lb_av] 177 [lb_av] eCW1 ([facility]) Diastolic blood pressure 80 mm[Hg] 80 mm[Hg] eCW1 ([facility]) Systolic blood pressure 144 mm[Hg] 144 mm[Hg] e CW1 ([facility]) Body temperature 96.1 [degF] 96.1 [degF] eCW1 ( [facility]) Respiratory rate 18 /min 18 /min eCW1 ([facility]) Heart rate 68 /min 68 /min eCW1 ([facility]) Body mass index (BMI) [Ratio] 26.31 kg/m2 26.31 kg/m2 eCW1 ([facility]) Body height 69 [in_us] 69 [in_us] eCW1 ([facility]) Body weight Measured 178.2 [lb_av] 178.2 [lb_av ] eCW1 ([facility]) Diastolic blood pressure 80 mm[Hg] 80 mm[Hg] eCW1 ([facility]) Systolic blood pressure 150 mm[Hg] 150 mm[Hg] e CW1 ([facility]) Body temperature 97.3 [degF] 97.3 [degF] eCW1 ( [facility]) Respiratory rate 20 /min 20 /min eCW1 ([facility]) Heart rate 68 /min 68 /min eCW1 ([facility]) Body mass index (BMI) [Ratio] 27.02 kg/m2 27.02 kg/m2 eCW1 ([facility]) Body height 69 [in_us] 69 [in_us] eCW1 ([facility]) Body weight Measured 183 [lb_av] 183 [lb_av] eC W1 ([facility]) Body weight 81.194 kg 81.194 kg [facility] ([facility], ) Body mass index (BMI) [Ratio] 26.4 kg/m2 26.4 k g/m2 MEDENT ([facility], ) Body weight 179.00 [lb_av] 179.00 [lb_av] MEDEN T ([facility], ) Body height 69 [in_i] 69 [in_i] [facility] ([facility], ) 5'9" Diastolic blood pressure 95 mm[Hg] 95 mm[Hg] MEDENT ([facility], ) Systolic blood pressure 152 mm[Hg] 152 mm[Hg] M EDENT ([facility], ) Diastolic blood pressure 88 mm[Hg] 88 mm[Hg] eCW1 ([facility]) Systolic blood pressure 150 mm[Hg] 150 mm[Hg] e CW1 ([facility]) Body temperature 97.6 [degF] 97.6 [degF] eCW1 ( [facility]) Respiratory rate 17 /min 17 /min eCW1 ([facility]) Heart rate 76 /min 76 /min eCW1 ([facility]) Body mass index (BMI) [Ratio] 25.78 kg/m2 25.78 kg/m2 eCW1 ([facility]) Body height 69 [in_us] 69 [in_us] eCW1 ([facility]) Body weight Measured 174.6 [lb_av] 174.6 [lb_av ] eCW1 ([facility]) Diastolic blood pressure 86 mm[Hg] 86 mm[Hg] eCW1 ([facility]) Systolic blood pressure 136 mm[Hg] 136 mm[Hg] e CW1 ([facility]) Body temperature 97.8 [degF] 97.8 [degF] eCW1 ( [facility]) Respiratory rate 18 /min 18 /min eCW1 ([facility]) Heart rate 74 /min 74 /min eCW1 ([facility]) Body mass index (BMI) [Ratio] 25.69 kg/m2 25.69 kg/m2 eCW1 ([facility]) Body height 69 [in_us] 69 [in_us] eCW1 ([facility]) Body weight Measured 174 [lb_av] 174 [lb_av] eC W1 ([facility]) ID Date Data Source [id number] 04/05/2020 03:09:27 PM EDT [facility] Name Value Range Interpretation Code Description Data Source(s) WEIGHT RECORDED 171.2 lb 171.2 lb [facility] ID Date Data Source [id number] 10/04/2019 10:01:00 AM EST [facility] Name Value Range Interpretation Code Description Data Source(s) Weight Measurement Method 1 1 [facility] Weight (Calculated Kilograms) 85.05 85.05 [facility] Weight 2928.0 2928.0 [facility] Temperature Source 7 7 [facility] Temperature 98.3 98.3 [facility] Respiratory Effort 1 1 [facility] Respiratory Rate 14 14 [facility] Pulse Assessment Method 4 4 [facility] Pulse Rate 63 63 [facility] Height (Calculated Centimeters) 175.26 175. 26 [facility] Height 69 69 [facility] Blood Pressure 170/92 170/92 [facility] Body Mass Index (BMI) 27.6 27.6 [facility] Weight Measurement Method 1 1 [facility] Weight (Calculated Kilograms) 85.05 85.05 [facility] Weight 2928.0 2928.0 [facility] Temperature Source 7 7 [facility] Temperature 98.3 98.3 [facility] Respiratory Effort 1 1 [facility] Respiratory Rate 14 14 [facility] Pulse Assessment Method 4 4 [facility] Pulse Rate 63 63 [facility] Height (Calculated Centimeters) 175.26 175. 26 [facility] Height 69 69 [facility] Blood Pressure 170/92 170/92 [facility] Body Mass Index (BMI) 27.6 27.6 [facility] Weight Measurement Method 1 1 [facility] Weight (Calculated Kilograms) 85.05 85.05 [facility] Weight 3000.0 3000.0 [facility] Temperature Source 7 7 [facility] Temperature 97.9 97.9 [facility] Respiratory Effort 1 1 [facility] Respiratory Rate 14 14 [facility] Pulse Assessment Method 4 4 [facility] Pulse Rate 62 62 [facility] Height (Calculated Centimeters) 175.26 175. 26 [facility] Height 69 69 [facility] Blood Pressure 144/87 144/87 [facility] Body Mass Index (BMI) 27.6 27.6 [facility] Weight Measurement Method 1 1 [facility] Weight (Calculated Kilograms) 85.05 85.05 [facility] Weight 3000.0 3000.0 [facility] Temperature Source 7 7 [facility] Temperature 98.4 98.4 [facility] Respiratory Effort 1 1 [facility] Respiratory Rate 16 16 [facility] Pulse Assessment Method 4 4 [facility] Pulse Rate 76 76 [facility] Height (Calculated Centimeters) 175.26 175. 26 [facility] Height 69 69 [facility] Blood Pressure 130/77 130/77 [facility] Body Mass Index (BMI) 27.6 27.6 [facility] Weight (Calculated Kilograms) 83.01 83.01 [facility] Height (Calculated Centimeters) 175.26 175. 26 [facility] Body Mass Index (BMI) 27.0 27.0 [facility] Patient Treatment Plan of Care Planned Activity Planned Date Details Description Data Source (s) 3 ML Insulin Glargine 100 UNT/ML Pen Injector [Lantus] 10/06/2020 12:00:00 AM EST eCW1 ([facility]) 3 ML Insulin Glargine 100 UNT/ML Pen Injector [Lantus] 10/06/2020 12:00:00 AM EST eCW1 ([facility]) 3 ML Insulin Glargine 100 UNT/ML Pen Injector [Lantus] 10/06/2020 12:00:00 AM EST eCW1 ([facility]) Tamsulosin hydrochloride 0.4 MG Oral Capsule 10/05/2020 12:00:00 AM EST eCW1 ([facility]) Sulfamethoxazole 800 MG / Trimethoprim 160 MG Oral Tab let [Bactrim] 10/05/2020 12:00:00 AM EST eCW1 ([facility]) Thiamine HCl 100 MG 10/05/2020 12:00:00 AM EST eCW1 ([facility]) Tamsulosin hydrochloride 0.4 MG Oral Capsule 10/05/2020 12:00:00 AM EST eCW1 ([facility]) Sulfamethoxazole 800 MG / Trimethoprim 160 MG Oral Tab let [Bactrim] 10/05/2020 12:00:00 AM EST eCW1 ([facility]) Thiamine HCl 100 MG 10/05/2020 12:00:00 AM EST eCW1 ([facility]) Sulfamethoxazole 800 MG / Trimethoprim 160 MG Oral Tab let [Bactrim] 10/05/2020 12:00:00 AM EST eCW1 ([facility]) Tamsulosin hydrochloride 0.4 MG Oral Capsule 10/05/2020 12:00:00 AM EST eCW1 ([facility]) Thiamine HCl 100 MG 10/05/2020 12:00:00 AM EST eCW1 ([facility]) ferrous sulfate 325 MG Oral Tablet 09/14/2020 12:00:00 AM EST eCW1 ([facility]) ferrous sulfate 325 MG Oral Tablet 09/14/2020 12:00:00 AM EST eCW1 ([facility]) ferrous sulfate 325 MG Oral Tablet 09/14/2020 12:00:00 AM EST eCW1 ([facility]) ferrous sulfate 325 MG Oral Tablet 09/14/2020 12:00:00 AM EST eCW1 ([facility]) ferrous sulfate 325 MG Oral Tablet 09/14/2020 12:00:00 AM EST eCW1 ([facility]) FreeStyle Lancets - 09/07/2020 12:00:00 AM EST eCW1 ([facility]) FreeStyle Lite - 09/07/2020 12:00:00 AM EST eCW1 ([facility]) Sucralfate 100 MG/ML Oral Suspension 09/07/2020 12:00:00 AM EST eCW1 ([facility]) Blood Glucose Test Strip - 09/07/2020 12:00:00 AM EST eCW1 ([facility]) Omeprazole 40 MG Delayed Release Oral Capsule 09/07/2020 12:00:00 A M EST eCW1 ([facility]) Omeprazole 40 MG Delayed Release Oral Capsule 09/07/2020 12:00:00 A M EST eCW1 ([facility]) Omeprazole 40 MG Delayed Release Oral Capsule 09/07/2020 12:00:00 A M EST eCW1 ([facility]) Sucralfate 100 MG/ML Oral Suspension 09/07/2020 12:00:00 AM EST eCW1 ([facility]) FreeStyle Lite - 09/07/2020 12:00:00 AM EST eCW1 ([facility]) Omeprazole 40 MG Delayed Release Oral Capsule 09/07/2020 12:00:00 A M EST eCW1 ([facility]) FreeStyle Lancets - 09/07/2020 12:00:00 AM EST eCW1 ([facility]) Blood Glucose Test Strip - 09/07/2020 12:00:00 AM EST eCW1 ([facility]) Sucralfate 100 MG/ML Oral Suspension 09/07/2020 12:00:00 AM EST eCW1 ([facility]) FreeStyle Lite - 09/07/2020 12:00:00 AM EST eCW1 ([facility]) Omeprazole 40 MG Delayed Release Oral Capsule 09/07/2020 12:00:00 A M EST eCW1 ([facility]) FreeStyle Lancets - 09/07/2020 12:00:00 AM EST eCW1 ([facility]) Blood Glucose Test Strip - 09/07/2020 12:00:00 AM EST eCW1 ([facility]) Omeprazole 40 MG Delayed Release Oral Capsule 09/07/2020 12:00:00 A M EST eCW1 ([facility]) pantoprazole 40 MG Delayed Release Oral Tablet 05/13/2020 12:00:00 AM [facility] Sucralfate 100 MG/ML Oral Suspension 05/13/2020 12:00:00 AM [facility] atorvastatin 20 MG Oral Tablet 03/28/2020 12:00:00 AM [facility] Amlodipine 10 MG Oral Tablet 03/28/2020 12:00:00 AM [facility] Lisinopril 40 MG Oral Tablet 03/28/2020 12:00:00 AM [facility] Tab-A-Martin/Beta Carotene Oral Tablet 03/28/2020 12:00:00 AM [facility] 24 HR Nicotine 0.875 MG/HR Transdermal Patch 03/28/2020 12:00:00 AM [facility] Thiamine 100 MG Oral Tablet 03/28/2020 12:00:00 AM [facility] Folic Acid 1 MG Oral Tablet 03/28/2020 12:00:00 AM [facility] Hydralazine Hydrochloride 20 MG/ML Injectable Solution 03/27/2020 09:00:00 AM [facility] ospital carvedilol 25 MG Oral Tablet 03/27/2020 12:00:00 AM [facility] pantoprazole 40 MG Delayed Release Oral Tablet 03/27/2020 12:00:00 AM [facility] Naloxone HCl 4 MG/0.1ML Nasal Liquid (Narcan) 03/27/2020 12:00:00 A M [facility] Sucralfate 1000 MG Oral Tablet 03/27/2020 12:00:00 AM [facility] dextrose 50 % IV solution 25 mL 03/22/2020 03:36:45 PM [facility] Glucagon 1 MG Injection 03/22/2020 03:36:45 PM [facility] Glucose 0.417 MG/MG Oral Gel 03/22/2020 03:36:45 PM [facility] Tamsulosin hydrochloride 0.4 MG Oral Capsule [Flomax] 11/14/2019 12:00:00 AM EST eCW1 ([facility]) sildenafil 25 MG Oral Tablet [Viagra] 11/13/2019 12:00:00 AM EST eCW1 ([facility]) sildenafil 25 MG Oral Tablet [Viagra] 11/13/2019 12:00:00 AM EST eCW1 ([facility]) Amlodipine 5 MG Oral Tablet 10/24/2019 12:00:00 AM EST eCW1 ([facility]) Cephalexin 250 MG Oral Capsule [Keflex] 10/24/2019 12:00:00 AM EST eCW1 ([facility]) Fluoxetine 60 MG Oral Tablet 09/20/2019 12:00:00 AM EST eCW1 ([facility]) One touch ultra blue _ 09/20/2019 12:00:00 AM EST eCW1 ([facility]) May Have - 09/20/2019 12:00:00 AM EST e CW1 ([facility]) Nicotine 2 MG Oral Lozenge 09/20/2019 12:00:00 AM EST eCW1 ([facility]) Ibuprofen 600 MG Oral Tablet 12/09/2015 12:00:00 AM [facility] Mirtazapine 15 MG Oral Tablet 11/19/2015 12:00:[address] [facility] terbinafine 250 MG Oral Tablet 11/18/2015 12:00:[address] [facility] atorvastatin 20 MG Oral Tablet 10/06/2015 12:00:[address] [facility] tramadol hydrochloride 50 MG Oral Tablet [facility] Esomeprazole 40 MG Delayed Release Oral Capsule [facility] Atenolol 50 MG Oral Tablet [facility] Lisinopril 20 MG Oral Tablet [facility] Metformin hydrochloride 1000 MG Oral Tablet [facility] carvedilol 25 MG Oral Tablet [facility] Omeprazole 20 MG Delayed Release Oral Capsule [facility]
[2020-10-25 01:11] LABS: APPEARANCE, URINE CLEAR (CLEAR); BACTERIA, URINE AUTO NEGATIVE (NEGATIVE); BILIRUBIN, URINE AUTO NEGATIVE (NEGATIVE); BLOOD, URINE BLOOD NEGATIVE (NEGATIVE); COLOR, URINE YELLOW (YELLOW); GLUCOSE, URINE (UA) AUTO 3+ mg/dL (NEGATIVE); KETONE, URINE AUTO NEGATIVE (NEGATIVE); LEUKOCYTE ESTERASE, URINE AUTO NEGATIVE (NEGATIVE); MUCUS, URINE SMALL (NEGATIVE); NITRITE, URINE AUTO NEGATIVE (NEGATIVE); PROTEIN, URINE AUTO 1+ mg/dL (NEGATIVE); RBC, URINE AUTO 0 /HPF (0-3); SQUAMOUS EPITHELIAL CELL UR AU 0 /HPF (0-6); UROBILINOGEN, URINE AUTO 0.2 mg/dL (0.0-2.0); WBC, URINE AUTO 2 /HPF (0-3)
[2020-10-25 01:26] LABS: CREATININE,RANDOM URINE 97.6 MG/DL
[2020-10-25] MEDS: DULoxetine 30 MG CAP (CYMBALTA) PO SCH ×3 (02:58→20:48)
[2020-10-25] MEDS: GABAPENTIN 300 MG CAP PO SCH ×4 (02:58→20:47)
[2020-10-25] MEDS: TAMSULOSIN 0.4 MG CAP PO SCH ×3 (02:58→20:48)
[2020-10-25] MEDS: PANTOPRAZOLE 40MG TAB (PROTONIX) PO SCH ×3 (02:59→20:47)
[2020-10-25] MEDS: rOPINIRole 1MG TAB PO SCH ×2 (02:59→20:47)
[2020-10-25] MEDS: NALTREXONE 50 MG TAB PO SCH ×2 (03:07→20:47)
[2020-10-25 06:04] LABS: HEMATOCRIT 24.7 % (42.0-52.0); HEMOGLOBIN 8.5 g/dl (13.5-17.5); MEAN CORPUSCULAR HEMOGLOBIN 30.4 pg (27.0-33.0); MEAN CORPUSCULAR HGB CONC 34.4 g/dl (32.0-36.5); MEAN CORPUSCULAR VOLUME 88.2 fl (80.0-96.0); PLATELET COUNT, AUTOMATED 106 10^3/uL (150-450); WHITE BLOOD COUNT 6.2 10^3/uL (4.0-10.0)
[2020-10-25 06:36] LABS: BLOOD UREA NITROGEN 14 MG/DL (7-18); CALCIUM LEVEL 7.1 MG/DL (8.5-10.1); CARBON DIOXIDE LEVEL 25 MEQ/L (21-32); CHLORIDE LEVEL 101 MEQ/L (98-107); CREATININE FOR GFR 1.28 MG/DL (0.70-1.30); GLOMERULAR FILTRATION RATE > 60.0 (>56); GLUCOSE, FASTING 339 MG/DL (70-100); MAGNESIUM LEVEL 1.2 MG/DL (1.8-2.4); POTASSIUM SERUM 3.6 MEQ/L (3.5-5.1); SODIUM LEVEL 134 MEQ/L (136-145)
[2020-10-25 07:07] LABS: CREATININE, URINE 97.6 MG/DL; MAU/CREAT RATIO 196.7 MCG/MG (0.0-30.0)
[2020-10-25] MEDS: SUCRALFATE SUSP 1GM/10ML UD PO SCH ×4 (08:54→20:47)
[2020-10-25] MEDS: FOLIC ACID 1 MG TAB PO SCH (08:54)
[2020-10-25] MEDS: MULTIVITAMINS/MINERALS THERAP 1 TAB PO SCH (08:55)
[2020-10-25] MEDS: NICOTINE 14 MG/24 HR TRANSDERMAL TD SCH (08:55)
[2020-10-25] MEDS: THIAMINE 100 MG TAB PO SCH ×2 (08:55→20:47)
[2020-10-25] MEDS ORDERED: HEPARIN SOD (PORCINE) 5000UNITS/ML 1ML VIAL/SYRINGE SC SCH (09:00)
[2020-10-25] MEDS ORDERED: GLUCAGON INJ 1MG VIAL SC PRN (09:15)
[2020-10-25] MEDS ORDERED: GLUCOSE 4GM CHEW TABLET PO PRN (09:15)
[2020-10-25] MEDS ORDERED: MAG SULF 1GM/100ML (MAG RUN) 1 GM in IV 1 EA IV ONE (09:15)
[2020-10-25] MEDS: MAGNESIUM OXIDE 400MG TAB (MAG-OX) PO SCH ×2 (10:25→20:48)
[2020-10-25] MEDS: LEVEMIR (INSULIN DETEMIR) 1 UNITS/0.01ML SC SCH (10:26)
[2020-10-25] MEDS ORDERED: SLF 3 ML SYR IV PRN (10:30)
[2020-10-25] MEDS: HumaLOG INSULIN (NovoLOG) PER UNIT SC SCH ×3 (12:46→21:00)
[2020-10-25] MEDS: SLF 3 ML SYR IV SCH ×2 (14:45→21:14)
--- NOTE | 2020-10-25 20:43 | ECGEPIP ---
[facility] - ED Test Date: 2020-10-24 Pat Name: GWEN JOLLEY Department: Room: [place] [address] Gender: Male [employer]: ARNULFO : 1965 Requested By: ANTONIO LOZA Order Number: [id number] Reading MD: Asiya Arnold Measurements Intervals [place] Rate: 72 P: 52 [place]: 140 QRS: 18 QRSD: 86 T: 31 QT: 410 QTc: 450 Interpretive Statements SINUS RHYTHM PRWP QTC SHORTER COMPARED 10/21/20 Electronically Signed on 10-25-2020 20:43:13 EST by Asiya Arnold
[2020-10-25] MEDS: cefTRIAXone SOD 1 GM in D5W MINI-BAG PLUS 50 ML IV SCH (20:46)
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
[2020-10-26] VITALS (9 sets, daily range): BP systolic 116–157; BP diastolic 57–89
[2020-10-26 04:24] LABS: HEMATOCRIT 23.3 % (42.0-52.0); HEMOGLOBIN 8.1 g/dl (13.5-17.5); MEAN CORPUSCULAR HGB CONC 34.8 g/dl (32.0-36.5); MEAN CORPUSCULAR VOLUME 86.3 fl (80.0-96.0); PLATELET COUNT, AUTOMATED 114 10^3/uL (150-450); WHITE BLOOD COUNT 4.8 10^3/uL (4.0-10.0)
[2020-10-26 04:56] LABS: BLOOD UREA NITROGEN 16 MG/DL (7-18); CALCIUM LEVEL 7.1 MG/DL (8.5-10.1); CARBON DIOXIDE LEVEL 27 MEQ/L (21-32); CHLORIDE LEVEL 104 MEQ/L (98-107); CREATININE FOR GFR 1.08 MG/DL (0.70-1.30); FERRITIN 77 NG/ML (26-388); GLOMERULAR FILTRATION RATE > 60.0 (>56); GLUCOSE, FASTING 86 MG/DL (70-100); IRON (FE) 61 UG/DL (65-175); MAGNESIUM LEVEL 1.4 MG/DL (1.8-2.4); PERCENT SATURATION 45.5 % (19.7-50.0); POTASSIUM SERUM 3.7 MEQ/L (3.5-5.1); SODIUM LEVEL 138 MEQ/L (136-145); TOTAL IRON BINDING CAPACITY 134 UG/DL (250-450)
[2020-10-26] MEDS: SLF 3 ML SYR IV SCH ×3 (06:46→22:57)
[2020-10-26] MEDS: HumaLOG INSULIN (NovoLOG) PER UNIT SC SCH ×4 (07:30→20:31)
[2020-10-26] MEDS: LEVEMIR (INSULIN DETEMIR) 1 UNITS/0.01ML SC SCH (08:09)
[2020-10-26] MEDS: FOLIC ACID 1 MG TAB PO SCH (08:10)
[2020-10-26] MEDS: GABAPENTIN 300 MG CAP PO SCH ×3 (08:10→20:04)
[2020-10-26] MEDS: DULoxetine 30 MG CAP (CYMBALTA) PO SCH ×2 (08:10→20:04)
[2020-10-26] MEDS: PANTOPRAZOLE 40MG TAB (PROTONIX) PO SCH ×2 (08:10→20:04)
[2020-10-26] MEDS: SUCRALFATE SUSP 1GM/10ML UD PO SCH ×4 (08:10→20:04)
[2020-10-26] MEDS: NICOTINE 14 MG/24 HR TRANSDERMAL TD SCH (08:10)
[2020-10-26] MEDS: THIAMINE 100 MG TAB PO SCH ×2 (08:10→20:04)
[2020-10-26] MEDS: TAMSULOSIN 0.4 MG CAP PO SCH ×2 (08:10→20:04)
[2020-10-26] MEDS: LORazepam 2 MG TAB PO PRN (08:11)
[2020-10-26] MEDS: MULTIVITAMINS/MINERALS THERAP 1 TAB PO SCH (08:11)
[2020-10-26] MEDS: FUROSEMIDE 40MG/4ML VIAL (J1940) IV SCH ×2 (08:11→16:58)
[2020-10-26] MEDS: MAGNESIUM OXIDE 400MG TAB (MAG-OX) PO SCH ×2 (08:11→20:05)
[2020-10-26] MEDS: hydrOXYzine 50 MG TAB PO PRN (08:11)
[2020-10-26 10:28] LABS: VITAMIN B12 LEVEL 1196 PG/ML
[2020-10-26 10:29] LABS: FOLATE 11.2 NG/ML
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
[2020-10-26] MEDS: CARVedilol 12.5 MG TAB PO SCH ×2 (12:04→20:17)
[2020-10-26] MEDS: DEXTROSE 50% 50 ML SYRINGE IV PRN ×4 (14:10→16:57)
[2020-10-26] MEDS ORDERED: MAG SULF 1GM/100ML (MAG RUN) 1 GM in IV 1 EA IV ONE (17:30)
[2020-10-26] MEDS: D5W 1,000 ML IV SCH (17:54)
[2020-10-26] MEDS: cefTRIAXone SOD 1 GM in D5W MINI-BAG PLUS 50 ML IV SCH (20:03)
[2020-10-26] MEDS: NALTREXONE 50 MG TAB PO SCH (20:05)
[2020-10-26] MEDS: rOPINIRole 1MG TAB PO SCH (20:05)
[2020-10-27] VITALS (9 sets, daily range): BP systolic 109–158; BP diastolic 60–89
[2020-10-27 04:45] LABS: HEMATOCRIT 23.4 % (42.0-52.0); MEAN CORPUSCULAR HEMOGLOBIN 30.2 pg (27.0-33.0); MEAN CORPUSCULAR HGB CONC 34.2 g/dl (32.0-36.5); MEAN CORPUSCULAR VOLUME 88.3 fl (80.0-96.0); PLATELET COUNT, AUTOMATED 128 10^3/uL (150-450); RED BLOOD COUNT 2.65 10^6/uL (4.30-6.10)
[2020-10-27 05:04] LABS: BLOOD UREA NITROGEN 12 MG/DL (7-18); CALCIUM LEVEL 7.2 MG/DL (8.5-10.1); CARBON DIOXIDE LEVEL 28 MEQ/L (21-32); CHLORIDE LEVEL 101 MEQ/L (98-107); GLOMERULAR FILTRATION RATE > 60.0 (>56); GLUCOSE, FASTING 209 MG/DL (70-100); MAGNESIUM LEVEL 1.4 MG/DL (1.8-2.4); POTASSIUM SERUM 3.4 MEQ/L (3.5-5.1); SODIUM LEVEL 135 MEQ/L (136-145)
[2020-10-27 05:07] LABS: HEMOGLOBIN A1c 9.7 %
[2020-10-27] MEDS: SLF 3 ML SYR IV SCH ×3 (05:46→20:27)
[2020-10-27] MEDS: D5W 1,000 ML IV SCH (06:35)
[2020-10-27] MEDS: CARVedilol 12.5 MG TAB PO SCH ×2 (09:00→20:26)
[2020-10-27] MEDS: THIAMINE 100 MG TAB PO SCH ×2 (09:16→20:27)
[2020-10-27] MEDS: MAGNESIUM OXIDE 400MG TAB (MAG-OX) PO SCH ×2 (09:17→20:26)
[2020-10-27] MEDS: GABAPENTIN 300 MG CAP PO SCH ×3 (09:17→20:26)
[2020-10-27] MEDS: PANTOPRAZOLE 40MG TAB (PROTONIX) PO SCH ×2 (09:17→20:26)
[2020-10-27] MEDS: DULoxetine 30 MG CAP (CYMBALTA) PO SCH ×2 (09:17→20:26)
[2020-10-27] MEDS: FOLIC ACID 1 MG TAB PO SCH (09:17)
[2020-10-27] MEDS: TAMSULOSIN 0.4 MG CAP PO SCH ×2 (09:17→20:26)
[2020-10-27] MEDS: MULTIVITAMINS/MINERALS THERAP 1 TAB PO SCH (09:17)
[2020-10-27] MEDS: SUCRALFATE SUSP 1GM/10ML UD PO SCH ×4 (09:17→20:25)
[2020-10-27] MEDS: FUROSEMIDE 40MG/4ML VIAL (J1940) IV SCH (09:18)
[2020-10-27] MEDS: HumaLOG INSULIN (NovoLOG) PER UNIT SC SCH ×4 (09:18→20:27)
[2020-10-27] MEDS: NICOTINE 14 MG/24 HR TRANSDERMAL TD SCH (09:19)
[2020-10-27] MEDS ORDERED: POTASSIUM CHLORIDE 10 MEQ SR TABLET PO ONE (10:00)
[2020-10-27] MEDS: MAG SULF 1GM/100ML (MAG RUN) 1 GM in IV 1 EA IV SCH ×4 (11:52→15:11)
[2020-10-27] MEDS: LORazepam 2 MG TAB PO PRN (12:29)
[2020-10-27] MEDS: hydrOXYzine 50 MG TAB PO PRN (12:29)
--- NOTE | 2020-10-27 17:33 | IPNPDOC ---
Date Seen The patient was seen on 10/27/20. Progress Note SUBJECTIVE: Patient seen in the morning, comfortable, eating breakfast, without any complaints at this time. Patient hypoglycemic overnight after receiving insulin, reports he has not been compliant with his insulin over the last year. He only used it for 2 out of the last 52 weeks. He was also orthostatic positive, one working with physical therapy earlier today. Patient received Lasix and had good urine output. PHYSICAL EXAMINATION: VITAL SIGNS: Please see below. GENERAL: No distress HEENT: Normocephalic, atraumatic, moist mucous membranes NECK: Supple CARDIOVASCULAR EXAMINATION: S1, S2, no murmurs RESPIRATORY EXAMINATION: Scattered rhonchi, no wheezing ABDOMINAL EXAMINATION: Soft, nontender, nondistended, positive bowel sounds EXTREMITIES: , Positive edema SKIN: No rash NEUROLOGICAL EXAMINATION: Alert and oriented 3, no focal deficits PSYCHIATRIC EXAMINATION: Calm and cooperative LABORATORY DATA, IMAGING STUDIES, MICROBIOLOGY: Please see below. ASSESSMENT AND PLAN: This is a -55-year-old male with past medical history of alcohol abuse, diabetes mellitus and recurrent GI bleeds is admitted for recent blood cultures being positive for Klebsiella pneumonia. PROBLEMS: 1. Bacteremia: Blood cultures on October 21 positive for Klebsiella pneumonia, likely secondary to UTI. Urine cultures were also positive for Klebsiella pneumonia. Continue ceftriaxone. Repeat blood cultures negative 2. Alcohol abuse: Hypoalbuminemic, likely significantly malnourished. Advised patient to improve his nutrition, patient agreeable. Actively drinking, continue thiamine, folic acid and multivitamins. Hypokalemic and hypomagnesemic, supplemented. 3. Diabetes mellitus: Hemoglobin A1c greater than 9, his prescribed insulin at home, but noncompliant, became hypoglycemic after receiving long-acting insulin overnight. Long-acting insulin discontinued. Continue sliding scale insulin coverage with meals and at bedtime. 4. History of recurrent GI bleeds. Related to multiple ulcers, continue Carafate and PPI. Hemoglobin stable 5. Hypertension. Patient was hypotensive and orthostatic positive today, antihypertensive medications held. Lasix discontinued. DVT prophylaxis: Chemical prophylaxis held due to recurrent GI bleeds. SCDs. GI prophylaxis: Home PPI and Carafate VS, I&O, 24H, Fishbone Vital Signs/I&O Vital Signs Date Time Temp Pulse Resp B/P (MAP) Pulse Ox O2 Delivery O2 Flow Rate FiO2 10/27/20 15:23 97.7 71 18 116/74 (88) 99 Room Air I&O- Last 24 Hours up to 6 AM 10/27/20 06:00 Intake Total 2025 ml Output Total 3200 ml Balance -1175 ml Laboratory Data 24H LABS Laboratory Tests 2 10/26/20 18:12: Bedside Glucose (Misc Panel) 73 10/26/20 20:13: Bedside Glucose (Misc Panel) 116H 10/26/20 22:35: Bedside Glucose (Misc Panel) 143H 10/27/20 00:05: Bedside Glucose (Misc Panel) 150H 10/27/20 04:19: Nucleated Red Blood Cells % (auto) 0.0, Anion Gap 6L, Glomerular Filtration Rate > 60.0, Estimated Mean Plasma Glucose 232H, Hemoglobin A1c 9.7, Calcium Level 7.2L, Magnesium Level 1.4L 10/27/20 08:05: Bedside Glucose (Misc Panel) 236H 10/27/20 11:56: Bedside Glucose (Misc Panel) 196H CBC/BMP Laboratory Tests 10/27/20 04:19 Microbiology Microbiology 10/25/20 Urine Culture - Final, Complete 10/24/20 Blood Culture - Preliminary, Resulted No Growth after 48 hours. All Specime... 10/24/20 Blood Culture - Preliminary, Resulted No Growth after 48 hours. All Specime... RAVEN ROMO MD Oct 27, 2020 17:33
[2020-10-27] MEDS: cefTRIAXone SOD 1 GM in D5W MINI-BAG PLUS 50 ML IV SCH (20:25)
[2020-10-27] MEDS: NALTREXONE 50 MG TAB PO SCH (20:26)
[2020-10-27] MEDS: rOPINIRole 1MG TAB PO SCH (20:26)
[2020-10-28] VITALS (10 sets, daily range): BP systolic 87–158; BP diastolic 57–84
[2020-10-28] MEDS: SLF 3 ML SYR IV SCH ×3 (05:35→21:57)
[2020-10-28 06:43] LABS: HEMOGLOBIN 8.2 g/dl (13.5-17.5); MEAN CORPUSCULAR HGB CONC 34.2 g/dl (32.0-36.5); MEAN CORPUSCULAR VOLUME 87.9 fl (80.0-96.0); PLATELET COUNT, AUTOMATED 168 10^3/uL (150-450); RED BLOOD COUNT 2.73 10^6/uL (4.30-6.10); WHITE BLOOD COUNT 5.8 10^3/uL (4.0-10.0)
[2020-10-28 07:16] LABS: ALBUMIN 1.4 GM/DL (3.2-5.2); BLOOD UREA NITROGEN 12 MG/DL (7-18); CALCIUM LEVEL 7.3 MG/DL (8.5-10.1); CARBON DIOXIDE LEVEL 27 MEQ/L (21-32); CHLORIDE LEVEL 101 MEQ/L (98-107); CREATININE FOR GFR 1.01 MG/DL (0.70-1.30); GLOMERULAR FILTRATION RATE > 60.0 (>56); GLUCOSE, FASTING 246 MG/DL (70-100); MAGNESIUM LEVEL 1.7 MG/DL (1.8-2.4); PHOSPHORUS LEVEL 2.1 MG/DL (2.5-4.9); POTASSIUM SERUM 4.1 MEQ/L (3.5-5.1); SODIUM LEVEL 134 MEQ/L (136-145)
[2020-10-28] MEDS: SUCRALFATE SUSP 1GM/10ML UD PO SCH ×4 (10:06→20:37)
[2020-10-28] MEDS: GABAPENTIN 300 MG CAP PO SCH ×3 (10:07→20:38)
[2020-10-28] MEDS: DULoxetine 30 MG CAP (CYMBALTA) PO SCH ×2 (10:08→20:37)
[2020-10-28] MEDS: FOLIC ACID 1 MG TAB PO SCH (10:08)
[2020-10-28] MEDS: PANTOPRAZOLE 40MG TAB (PROTONIX) PO SCH ×2 (10:08→20:37)
[2020-10-28] MEDS: TAMSULOSIN 0.4 MG CAP PO SCH (10:08)
[2020-10-28] MEDS: K-PHOS NEUTRAL 250MG TABLET (SOD.PHOSPHATE/POT.PHOSPHATE) PO SCH ×3 (10:08→20:38)
[2020-10-28] MEDS: MULTIVITAMINS/MINERALS THERAP 1 TAB PO SCH (10:08)
[2020-10-28] MEDS: MAGNESIUM OXIDE 400MG TAB (MAG-OX) PO SCH ×2 (10:08→20:37)
[2020-10-28] MEDS: MAG SULF 1GM/100ML (MAG RUN) 1 GM in IV 1 EA IV SCH ×2 (10:09→14:28)
[2020-10-28] MEDS: NICOTINE 14 MG/24 HR TRANSDERMAL TD SCH (10:09)
[2020-10-28] MEDS: CARVedilol 12.5 MG TAB PO SCH ×2 (10:10→20:38)
[2020-10-28] MEDS: HumaLOG INSULIN (NovoLOG) PER UNIT SC SCH ×4 (10:11→20:25)
[2020-10-28] MEDS ORDERED: MAGNESIUM SULFATE 1GM/100ML D5W BAG (10MG/ML) As Ordered ONE (14:25)
[2020-10-28] MEDS: LevoFLOXacin 750 MG TABLET PO SCH (15:32)
--- NOTE | 2020-10-28 16:03 | IPNPDOC ---
Date Seen The patient was seen on 10/28/20. Progress Note SUBJECTIVE: Patient comfortable in chair, feels significantly better compared to yesterday. He is currently without any complaints. He remained orthostatic throughout today. PHYSICAL EXAMINATION: VITAL SIGNS: Please see below. GENERAL: No distress HEENT: Normocephalic, atraumatic, moist mucous membranes NECK: Supple CARDIOVASCULAR EXAMINATION: S1, S2, no murmurs RESPIRATORY EXAMINATION: Scattered rhonchi, no wheezing ABDOMINAL EXAMINATION: Soft, nontender, nondistended, positive bowel sounds EXTREMITIES: Positive edema SKIN: No rash NEUROLOGICAL EXAMINATION: Alert and oriented 3, no focal deficits PSYCHIATRIC EXAMINATION: Calm and cooperative LABORATORY DATA, IMAGING STUDIES, MICROBIOLOGY: Please see below. ASSESSMENT AND PLAN: This is a -55-year-old male with past medical history of alcohol abuse, diabetes mellitus and recurrent GI bleeds is admitted for recent blood cultures being positive for Klebsiella pneumonia. PROBLEMS: 1. Bacteremia: Blood cultures on October 21 positive for Klebsiella pneumonia, likely secondary to UTI. Urine cultures were also positive for Klebsiella pneumonia. Switch antibiotics to Levaquin, will complete a 10 day course. Repeat blood cultures negative 2. Alcohol abuse: Hypoalbuminemic, likely significantly malnourished. Advised patient to improve his nutrition, patient agreeable. Actively drinking, continue thiamine, folic acid and multivitamins. Electrolytes supplemented. Orthostatic hypotension, possibly related to significant hypoalbuminemia causing decreased oncotic pressure and intravascular volume. Treated with co mpression stockings but he remains orthostatic positive, discontinued Flomax and started midodrine 2.5 mg 3 times a day. 3. Diabetes mellitus: Hemoglobin A1c greater than 9 Became hypoglycemic with Levemir as he is noncompliant with that in the outpatient setting, discontinued. Continue sliding scale insulin coverage with meals and at bedtime. 4. History of recurrent GI bleeds. Related to multiple ulcers, continue Carafate and PPI. Hemoglobin stable 5. Hypertension. Discontinue Norvasc due to orthostatic hypotension, continue Coreg with hold parameters. DVT prophylaxis: Chemical prophylaxis held due to recurrent GI bleeds. SCDs. GI prophylaxis: Home PPI and Carafate VS, I&O, 24H, Fishbone Vital Signs/I&O Vital Signs Date Time Temp Pulse Resp B/P (MAP) Pulse Ox O2 Delivery O2 Flow Rate FiO2 10/28/20 14:00 98.3 79 18 126/75 (92) 93 Room Air I&O- Last 24 Hours up to 6 AM 10/28/20 06:00 Intake Total 1320 ml Output Total 950 ml Balance 370 ml Laboratory Data 24H LABS Laboratory Tests 2 10/27/20 17:16: Bedside Glucose (Misc Panel) 212H 10/27/20 19:49: Bedside Glucose (Misc Panel) 242H 10/28/20 06:08: Nucleated Red Blood Cells % (auto) 0.0, Anion Gap 6L, Glomerular Filtration Rate > 60.0, Calcium Level 7.3L, Phosphorus Level 2.1L, Magnesium Level 1.7L, Albumin 1.4L 10/28/20 11:17: Bedside Glucose (Misc Panel) 357H CBC/BMP Laboratory Tests 10/28/20 06:08 Microbiology Microbiology 10/25/20 Urine Culture - Final, Complete 10/24/20 Blood Culture - Preliminary, Resulted No Growth after 72 hours. All specime... 10/24/20 Blood Culture - Preliminary, Resulted No Growth after 72 hours. All specime... RAVEN ROMO MD Oct 28, 2020 16:03
[2020-10-28] MEDS: MIDODRINE 2.5 MG TAB PO SCH (17:42)
[2020-10-28] MEDS: NALTREXONE 50 MG TAB PO SCH (20:37)
[2020-10-28] MEDS: rOPINIRole 1MG TAB PO SCH (20:38)
[2020-10-28] MEDS: ACETAMINOPHEN TAB 650MG DOSE (2X325MG) PO PRN (21:57)
[2020-10-29] VITALS (7 sets, daily range): BP systolic 93–140; BP diastolic 60–81
[2020-10-29] MEDS: LevoFLOXacin 750 MG TABLET PO SCH (05:39)
[2020-10-29] MEDS: SLF 3 ML SYR IV SCH ×3 (05:39→21:44)
[2020-10-29 06:15] LABS: HEMATOCRIT 23.8 % (42.0-52.0); MEAN CORPUSCULAR HEMOGLOBIN 30.4 pg (27.0-33.0); MEAN CORPUSCULAR HGB CONC 33.6 g/dl (32.0-36.5); MEAN CORPUSCULAR VOLUME 90.5 fl (80.0-96.0); PLATELET COUNT, AUTOMATED 170 10^3/uL (150-450); RED BLOOD COUNT 2.63 10^6/uL (4.30-6.10); WHITE BLOOD COUNT 3.2 10^3/uL (4.0-10.0)
[2020-10-29 06:45] LABS: BLOOD UREA NITROGEN 13 MG/DL (7-18); CALCIUM LEVEL 6.8 MG/DL (8.5-10.1); CARBON DIOXIDE LEVEL 28 MEQ/L (21-32); CHLORIDE LEVEL 104 MEQ/L (98-107); GLOMERULAR FILTRATION RATE > 60.0 (>56); GLUCOSE, FASTING 182 MG/DL (70-100); MAGNESIUM LEVEL 1.9 MG/DL (1.8-2.4); POTASSIUM SERUM 4.1 MEQ/L (3.5-5.1); SODIUM LEVEL 136 MEQ/L (136-145)
[2020-10-29] MEDS: SUCRALFATE SUSP 1GM/10ML UD PO SCH ×4 (07:30→21:43)
[2020-10-29] MEDS: MULTIVITAMINS/MINERALS THERAP 1 TAB PO SCH (09:29)
[2020-10-29] MEDS: DULoxetine 30 MG CAP (CYMBALTA) PO SCH ×2 (09:29→21:44)
[2020-10-29] MEDS: CARVedilol 12.5 MG TAB PO SCH ×2 (09:29→21:44)
[2020-10-29] MEDS: MAGNESIUM OXIDE 400MG TAB (MAG-OX) PO SCH ×2 (09:29→21:44)
[2020-10-29] MEDS: GABAPENTIN 300 MG CAP PO SCH ×3 (09:30→21:44)
[2020-10-29] MEDS: FOLIC ACID 1 MG TAB PO SCH (09:30)
[2020-10-29] MEDS: PANTOPRAZOLE 40MG TAB (PROTONIX) PO SCH ×2 (09:30→21:44)
[2020-10-29] MEDS: NICOTINE 14 MG/24 HR TRANSDERMAL TD SCH (09:31)
[2020-10-29] MEDS: MIDODRINE 2.5 MG TAB PO SCH ×3 (09:32→17:08)
[2020-10-29] MEDS: HumaLOG INSULIN (NovoLOG) PER UNIT SC SCH ×4 (09:33→21:00)
--- NOTE | 2020-10-29 19:42 | IPNPDOC ---
Date Seen The patient was seen on 10/29/20. Progress Note SUBJECTIVE: Patient comfortable in bed, without any complaints at this time, remains orthostatic positive, but no longer symptomatic when working with physical therapy. PHYSICAL EXAMINATION: VITAL SIGNS: Please see below. GENERAL: No distress HEENT: Normocephalic, atraumatic, moist mucous membranes NECK: Supple CARDIOVASCULAR EXAMINATION: S1, S2, no murmurs RESPIRATORY EXAMINATION: Scattered rhonchi, no wheezing ABDOMINAL EXAMINATION: Soft, nontender, nondistended, positive bowel sounds EXTREMITIES: Positive edema SKIN: No rash NEUROLOGICAL EXAMINATION: Alert and oriented 3, no focal deficits PSYCHIATRIC EXAMINATION: Calm and cooperative LABORATORY DATA, IMAGING STUDIES, MICROBIOLOGY: Please see below. ASSESSMENT AND PLAN: This is a 55-year-old male with past medical history of al cohol abuse, diabetes mellitus and recurrent GI bleeds is admitted for recent blood cultures being positive for Klebsiella pneumonia. PROBLEMS: 1. Bacteremia: Blood cultures on October 21 positive for Klebsiella pneumonia, likely secondary to UTI. Urine cultures were also positive for Klebsiella pneumonia. On Levaquin, will complete a 10 day course. Repeat blood cultures negative 2. Alcohol abuse: Hypoalbuminemic, likely significantly malnourished. Advised patient to improve his nutrition, patient agreeable. Actively drinking, continue thiamine, folic acid and multivitamins. Electrolytes supplemented. Orthostatic hypotension, possibly related to significant hypoalbuminemia c ausing decreased oncotic pressure and intravascular volume. Compression stockings, increase midodrine to 5 mg 3 times a day. 3. Diabetes mellitus: Hemoglobin A1c greater than 9 Became hypoglycemic with Levemir as he is noncompliant with that in the outpatient setting, discontinued. Continue sliding scale insulin coverage with meals and at bedtime. 4. History of recurrent GI bleeds. Related to multiple ulcers, continue Carafate and PPI. Hemoglobin stable 5. Hypertension. Discontinue Norvasc due to orthostatic hypotension, continue Coreg with hold parameters. DVT prophylaxis: Chemical prophylaxis held due to recurrent GI bleeds. SCDs. GI prophylaxis: Home PPI and Carafate VS, I&O, 24H, Fishbone Vital Signs/I&O Vital Signs Date Time Temp Pulse Resp B/P (MAP) Pulse Ox O2 Delivery O2 Flow Rate FiO2 10/29/20 14:00 98.0 72 17 105/69 (81) 100 Room Air I&O- Last 24 Hours up to 6 AM 10/29/20 06:00 Intake Total 2375 ml Output Total 600 ml Balance 1775 ml Laboratory Data 24H LABS Laboratory Tests 2 10/28/20 20:05: Bedside Glucose (Misc Panel) 198H 10/29/20 05:47: Nucleated Red Blood Cells % (auto) 0.0, Anion Gap 4L, Glomerular Filtration Rate > 60.0, Calcium Level 6.8L, Magnesium Level 1.9 10/29/20 11:28: Bedside Glucose (Misc Panel) 237H 10/29/20 17:00: Bedside Glucose (Misc Panel) 187H CBC/BMP Laboratory Tests 10/29/20 05:47 Microbiology Microbiology 10/25/20 Urine Culture - Final, Complete 10/24/20 Blood Culture - Preliminary, Resulted No Growth after 72 hours. All specime... 10/24/20 Blood Culture - Preliminary, Resulted No Growth after 72 hours. All specime... RAVEN ROMO MD Oct 29, 2020 19:42
[2020-10-29] MEDS: NALTREXONE 50 MG TAB PO SCH (21:44)
[2020-10-29] MEDS: rOPINIRole 1MG TAB PO SCH (21:44)
[2020-10-29] MEDS: ACETAMINOPHEN TAB 650MG DOSE (2X325MG) PO PRN (21:45)
[2020-10-30 06:00] VITALS: BP 140/86
[2020-10-30] MEDS: LevoFLOXacin 750 MG TABLET PO SCH (06:19)
[2020-10-30] MEDS: SLF 3 ML SYR IV SCH ×3 (06:19→20:12)
[2020-10-30] MEDS: ACETAMINOPHEN TAB 650MG DOSE (2X325MG) PO PRN ×2 (06:19→20:12)
[2020-10-30 06:37] LABS: HEMATOCRIT 23.4 % (42.0-52.0); MEAN CORPUSCULAR HEMOGLOBIN 30.7 pg (27.0-33.0); MEAN CORPUSCULAR HGB CONC 34.2 g/dl (32.0-36.5); MEAN CORPUSCULAR VOLUME 89.7 fl (80.0-96.0); PLATELET COUNT, AUTOMATED 206 10^3/uL (150-450); RED BLOOD COUNT 2.61 10^6/uL (4.30-6.10); WHITE BLOOD COUNT 3.3 10^3/uL (4.0-10.0)
[2020-10-30 07:01] LABS: ALBUMIN 1.3 GM/DL (3.2-5.2); ALT/SGPT 13 U/L (12-78); BILIRUBIN,TOTAL 0.2 MG/DL (0.2-1.0); BLOOD UREA NITROGEN 11 MG/DL (7-18); CALCIUM LEVEL 7.2 MG/DL (8.5-10.1); CARBON DIOXIDE LEVEL 26 MEQ/L (21-32); CHLORIDE LEVEL 105 MEQ/L (98-107); CREATININE FOR GFR 0.98 MG/DL (0.70-1.30); GLOMERULAR FILTRATION RATE > 60.0 (>56); GLUCOSE, FASTING 152 MG/DL (70-100); POTASSIUM SERUM 3.8 MEQ/L (3.5-5.1); SODIUM LEVEL 138 MEQ/L (136-145); TOTAL PROTEIN 4.3 GM/DL (6.4-8.2)
[2020-10-30] MEDS ORDERED: MIDODRINE 5 MG TAB PO SCH (08:00)
[2020-10-30 08:40] VITALS: BP_SYST 140; BP_SYST 89; BP_SYST 93; BP_DIAS 55; BP_DIAS 60; BP_DIAS 85
[2020-10-30] MEDS: FOLIC ACID 1 MG TAB PO SCH (08:40)
[2020-10-30] MEDS: GABAPENTIN 300 MG CAP PO SCH ×3 (08:40→20:11)
[2020-10-30] MEDS: HumaLOG INSULIN (NovoLOG) PER UNIT SC SCH ×4 (08:40→20:11)
[2020-10-30] MEDS: SUCRALFATE SUSP 1GM/10ML UD PO SCH ×4 (08:40→20:10)
[2020-10-30] MEDS: MAGNESIUM OXIDE 400MG TAB (MAG-OX) PO SCH ×2 (08:41→20:11)
[2020-10-30] MEDS: DULoxetine 30 MG CAP (CYMBALTA) PO SCH ×2 (08:41→20:11)
[2020-10-30] MEDS: PANTOPRAZOLE 40MG TAB (PROTONIX) PO SCH ×2 (08:41→20:11)
[2020-10-30] MEDS: NICOTINE 14 MG/24 HR TRANSDERMAL TD SCH (08:41)
[2020-10-30] MEDS: MULTIVITAMINS/MINERALS THERAP 1 TAB PO SCH (08:41)
[2020-10-30] MEDS: MIDODRINE 5 MG TAB PO SCH ×3 (09:05→17:44)
--- NOTE | 2020-10-30 12:59 | IPNPDOC ---
Date Seen The patient was seen on 10/30/20. Progress Note SUBJECTIVE: Patient comfortable in chair today, without any complaints, asymptomatic and at baseline. He remains orthostatic positive, but no longer symptomatic. PHYSICAL EXAMINATION: VITAL SIGNS: Please see below. GENERAL: No distress HEENT: Normocephalic, atraumatic, moist mucous membranes NECK: Supple CARDIOVASCULAR EXAMINATION: S1, S2, no murmurs RESPIRATORY EXAMINATION: Scattered rhonchi, no wheezing ABDOMINAL EXAMINATION: Soft, nontender, nondistended, positive bowel sounds EXTREMITIES: Positive edema SKIN: No rash NEUROLOGICAL EXAMINATION: Alert and oriented 3, no focal deficits PSYCHIATRIC EXAMINATION: Calm and cooperative LABORATORY DATA, IMAGING STUDIES, MICROBIOLOGY: Please see below. ASSESSMENT AND PLAN: This is a 55-year-old male with past medical history of alcohol abuse, diabetes mellitus and recurrent GI bleeds is admitted for recent blood cultures being positive for Klebsiella pneumonia. PROBLEMS: 1. Bacteremia: Blood cultures on October 21 positive for Klebsiella pneumonia, likely secondary to UTI. Urine cultures were also positive for Klebsiella pneumonia. On Levaquin, will complete a 10 day course. Repeat blood cultures negative 2. Alcohol abuse: Hypoalbuminemic, likely significantly malnourished. Advised patient to improve his nutrition, patient agreeable. Actively drinking, continue thiamine, folic acid and multivitamins. Electrolytes supplemented. Orthostatic hypotension, possibly related to significant hypoalbuminemia, chronic alcohol intake. Compression stockings, increase midodrine to 10 mg 3 times a day. Coreg discontinued. 3. Diabetes mellitus: Hemoglobin A1c greater than 9 Became hypoglycemic with Levemir as he is noncompliant with that in the outpatient setting, discontinued. Continue sliding scale insulin coverage with meals and at bedtime. 4. History of recurrent GI bleeds. Related to multiple ulcers, continue Carafate and PPI. Hemoglobin stable 5. Hypertension. Discontinued Norvasc and Coreg, will monitor blood pressure. DVT prophylaxis: Chemical prophylaxis held due to recurrent GI bleeds. SCDs. GI prophylaxis: Home PPI and Carafate VS, I&O, 24H, Fishbone Vital Signs/I&O Vital Signs Date Time Temp Pulse Resp B/P (MAP) Pulse Ox O2 Delivery O2 Flow Rate FiO2 10/30/20 06:00 97.4 72 18 140/86 (104) 97 Room Air I&O- Last 24 Hours up to 6 AM 10/30/20 06:00 Intake Total 2005 ml Output Total 400 ml Balance 1605 ml Laboratory Data 24H LABS Laboratory Tests 2 10/29/20 17:00: Bedside Glucose (Misc Panel) 187H 10/29/20 20:17: Bedside Glucose (Misc Panel) 137H 10/30/20 05:47: Nucleated Red Blood Cells % (auto) 0.0, Anion Gap 7L, Glomerular Filtration Rate > 60.0, Calcium Level 7.2L, Total Bilirubin 0.2, Aspartate Amino Transf (AST/SGOT) 13, Alanine Aminotransferase (ALT/SGPT) 13, Alkaline Phosphatase 107, Total Protein 4.3L, Albumin 1.3L, Albumin/Globulin Ratio 0.4 10/30/20 11:50: Bedside Glucose (Misc Panel) 215H CBC/BMP Laboratory Tests 10/30/20 05:47 Microbiology Microbiology 10/25/20 Urine Culture - Final, Complete 10/24/20 Blood Culture - Final, Complete NO GROWTH AFTER 5 DAYS 10/24/20 Blood Culture - Final, Complete NO GROWTH AFTER 5 DAYS RAVEN ROMO MD Oct 30, 2020 12:59
[2020-10-30 14:00] VITALS: BP 146/74
[2020-10-30] MEDS: rOPINIRole 1MG TAB PO SCH (20:11)
[2020-10-30] MEDS: NALTREXONE 50 MG TAB PO SCH (20:11)
[2020-10-30 22:00] VITALS: BP 159/89
[2020-10-31] MEDS: LevoFLOXacin 750 MG TABLET PO SCH (05:22)
[2020-10-31] MEDS: ACETAMINOPHEN TAB 650MG DOSE (2X325MG) PO PRN (05:22)
[2020-10-31] MEDS: SLF 3 ML SYR IV SCH ×2 (05:23→14:00)
[2020-10-31 06:00] VITALS: BP 152/76
[2020-10-31 06:28] LABS: HEMATOCRIT 24.2 % (42.0-52.0); HEMOGLOBIN 7.9 g/dl (13.5-17.5); MEAN CORPUSCULAR HEMOGLOBIN 30.3 pg (27.0-33.0); MEAN CORPUSCULAR HGB CONC 32.6 g/dl (32.0-36.5); MEAN CORPUSCULAR VOLUME 92.7 fl (80.0-96.0); PLATELET COUNT, AUTOMATED 243 10^3/uL (150-450); RED BLOOD COUNT 2.61 10^6/uL (4.30-6.10)
[2020-10-31 06:52] LABS: BLOOD UREA NITROGEN 13 MG/DL (7-18); CALCIUM LEVEL 7.5 MG/DL (8.5-10.1); CARBON DIOXIDE LEVEL 28 MEQ/L (21-32); CHLORIDE LEVEL 105 MEQ/L (98-107); GLOMERULAR FILTRATION RATE > 60.0 (>56); GLUCOSE, FASTING 148 MG/DL (70-100); POTASSIUM SERUM 3.9 MEQ/L (3.5-5.1); SODIUM LEVEL 138 MEQ/L (136-145)
[2020-10-31] MEDS: NICOTINE 14 MG/24 HR TRANSDERMAL TD SCH (08:55)
[2020-10-31] MEDS: MULTIVITAMINS/MINERALS THERAP 1 TAB PO SCH (08:56)
[2020-10-31] MEDS: SUCRALFATE SUSP 1GM/10ML UD PO SCH ×2 (08:56→12:45)
[2020-10-31] MEDS: HumaLOG INSULIN (NovoLOG) PER UNIT SC SCH ×2 (08:56→12:45)
[2020-10-31] MEDS: GABAPENTIN 300 MG CAP PO SCH (08:56)
[2020-10-31] MEDS: MIDODRINE 5 MG TAB PO SCH ×2 (08:56→12:45)
[2020-10-31] MEDS: DULoxetine 30 MG CAP (CYMBALTA) PO SCH (08:56)
[2020-10-31] MEDS: MAGNESIUM OXIDE 400MG TAB (MAG-OX) PO SCH (08:56)
[2020-10-31] MEDS: FOLIC ACID 1 MG TAB PO SCH (08:57)
[2020-10-31] MEDS: PANTOPRAZOLE 40MG TAB (PROTONIX) PO SCH (08:57)
[2020-10-31] MEDS ORDERED: LEVO750T13 PO (12:33)
[2020-10-31] MEDS ORDERED: CARV12.5 PO (12:33)
[2020-10-31] MEDS ORDERED: MIDO5TA PO (12:33)
[2020-10-31 12:50] VITALS: BP_SYST 115; BP_SYST 131; BP_SYST 141; BP_DIAS 66; BP_DIAS 76; BP_DIAS 84
--- NOTE | 2020-10-31 12:55 | DS.PDOC ---
Discharge Summary General Date of Admission Oct 24, 2020 at 22:59 Date of Discharge 10/31/20 Attending Physician: RAVEN ROMO MD Discharge Summary PROCEDURES PERFORMED DURING STAY: None. ADMITTING DIAGNOSES: 1. Bacteremia, acute renal failure, UTI, orthostatic hypotension. DISCHARGE DIAGNOSES: 1. As above. COMPLICATIONS/CHIEF COMPLAINT: Acute Renal Failure,Anasarca,Gram-Negative Bactere. HISTORY OF PRESENT ILLNESS: 55-year-old male with past medical history of cirrhosis was admitted for bacteremia family outpatient setting. He was being treated in the outpatient setting for UTI, blood cultures grew Klebsiella pneumonia. He was treated with ceftriaxone followed by Levaquin based on sensitivities. He had a KI on presentation, likely related to hypovolemia and prerenal ideology, treated with IV fluids, creatinine back to baseline. Patient found to be orthostatic positive. Throughout hospitalization, Flomax and Norvasc were discontinued, started on midodrine and titrated up to 5 mg 3 times a day. Patient's Coreg dose was also decreased to 12.5 g twice a day. Patient remained slightly orthostatic, but normal longer symptomatic and able to ambulate without difficulty. Patient was evaluated by physical therapy and cleared for discharge. Her 24 hour care which will be provided by his ex-girlfriend. Patient is otherwise supple at this time, without any complaints. Patient seems to be stable for discharge and outpatient follow-up at this time. HOSPITAL COURSE: As above. DISCHARGE MEDICATIONS: Please see below. ALLERGIES: Please see below. PHYSICAL EXAMINATION: VITAL SIGNS: Please see below. GENERAL: No distress HEENT: Normocephalic, atraumatic, moist mucous membranes NECK: Supple CARDIOVASCULAR EXAMINATION: S1, S2, no murmurs RESPIRATORY EXAMINATION: Basilar rhonchi, no wheezing ABDOMINAL EXAMINATION: Soft, nontender, nondistended, positive bowel sounds EXTREMITIES: Pitting edema SKIN: No rash NEUROLOGICAL EXAMINATION: Alert and oriented 3, no focal deficits PSYCHIATRIC EXAMINATION: Calm and cooperative LABORATORY DATA: Please see below. PROGNOSIS: Guarded ACTIVITY: As tolerated. DIET: 2 g sodium, high protein DISCHARGE PLAN: Follow with PCP in 1-2 weeks after discharge DISPOSITION: Home. DISCHARGE INSTRUCTIONS: 1. As above. DISCHARGE CONDITION: Stable. TIME SPENT ON DISCHARGE: Greater than 15 minutes. Vital Signs/I&Os Vital Signs Date Time Temp Pulse Resp B/P (MAP) Pulse Ox O2 Delivery O2 Flow Rate FiO2 2/20/21 06:00 97.7 72 15 152/76 (101) 98 Room Air I&O- Last 24 Hours up to 6 AM 10/31/20 06:00 Intake Total 1450 ml Output Total 250 ml Balance 1200 ml Laboratory Data Labs 24H Laboratory Tests 2 10/30/20 16:48: Bedside Glucose (Misc Panel) 147H 10/30/20 19:57: Bedside Glucose (Misc Panel) 201H 10/31/20 05:43: Nucleated Red Blood Cells % (auto) 0.0, Anion Gap 5L, Glomerular Filtration Rate > 60.0, Calcium Level 7.5L 10/31/20 11:40: Bedside Glucose (Misc Panel) 204H CBC/BMP Laboratory Tests 10/31/20 05:43 FSBS Laboratory Tests Test 10/30/20 16:48 10/30/20 19:57 10/31/20 11:40 Range/Units Bedside Glucose (Misc Panel) 147 201 204 70-105 MG/DL Microbiology Microbiology 10/25/20 Urine Culture - Final, Complete 10/24/20 Blood Culture - Final, Complete NO GROWTH AFTER 5 DAYS 10/24/20 Blood Culture - Final, Complete NO GROWTH AFTER 5 DAYS Discharge Medications Scheduled Carvedilol (Carvedilol) 12.5 Mg Tablet, 1 TAB PO BID Duloxetine Hcl (Duloxetine HCl) 60 Mg Capsule.dr, 60 MG PO BID, (Reported) Folic Acid (Folic Acid) 1 Mg Tablet, 1 MG PO DAILY, (Reported) Gabapentin (Gabapentin) 600 Mg Tablet, 600 MG PO TID, (Reported) Levofloxacin (Levofloxacin) 750 Mg Tablet, 750 MG PO DAILY@06 Lisinopril (Lisinopril) 40 Mg Tablet, 40 MG PO DAILY, (Reported) Magnesium Oxide (Magnesium Oxide) 400 Mg Tablet, 400 MG PO DAILY, (Reported) Metformin HCl (Metformin HCl ER) 500 Mg Tab.er.24h, 1,000 MG PO BID, (Reported) Midodrine HCl (Midodrine HCl) 5 Mg Tablet, 5 MG PO 08,12,16 Multivitamin,Therapeutic (Thera-Tabs) 1 Each Tablet, 1 TAB PO DAILY, (Reported) Naltrexone HCl (Naltrexone HCl) 50 Mg Tablet, 50 MG PO QHS, (Reported) [place]-3 Acid Ethyl Esters ([place]-3 Acid Ethyl Esters) 1 Gm Capsule, 4 GM PO DAILY, (Reported) Omeprazole (Omeprazole) 40 Mg Capsule.dr, 40 MG PO BID, (Reported) Ropinirole HCl (Ropinirole HCl) 0.5 Mg Tablet, 1 MG PO QHS, (Reported) Sucralfate (Sucralfate) 1 Gm/10 Ml Oral.susp, 10 ML PO ACHS, (Reported) Thiamine HCl (Thiamine HCl) 100 Mg Tablet, 100 MG PO DAILY, (Reported) Scheduled PRN Hydroxyzine HCl (Hydroxyzine HCl) 50 Mg Tablet, 50 MG PO TID PRN for ANXIETY/AGITATION, (Reported) Lidocaine/Prilocaine (Lidocaine-Prilocaine Cream) 2.5%/2.5% Cream..g., 1 APPLIC TOP BID PRN for PAIN, (Reported) APPLY TO AFFECTED AREA ON RIGHT LEG Allergies Coded Allergies: No Known Allergies (Unverified , 08/22/20) RAVEN ROMO MD Oct 31, 2020 12:55
[2020-10-31 14:00] VITALS: BP 131/84
== END 2020-10-31 15:53 | disposition home health service (06) | DRG 871 ==
LOC: M ED 18:53 → M ED INP 22:59 → M PCU 10-25 02:30 → M MSPAV 10-28 03:53
PROVIDERS: ADMIT Internal Medicine; ATTEND Internal Medicine
DX: R78.81 Bacteremia (principal); E43 Unspecified severe protein-calorie malnutrition; K50.90 Crohn's disease, unspecified, without complications; N17.9 Acute kidney failure, unspecified; K86.0 Alcohol-induced chronic pancreatitis; N39.0 Urinary tract infection, site not specified; K70.31 Alcoholic cirrhosis of liver with ascites; E11.42 Type 2 diabetes mellitus with diabetic polyneuropathy; I10 Essential (primary) hypertension; E78.5 Hyperlipidemia, unspecified; I45.6 Pre-excitation syndrome; B96.1 Klebsiella pneumoniae [K. pneumoniae] as the cause of diseases classified elsewhere; M54.2 Cervicalgia; D69.6 Thrombocytopenia, unspecified; M21.371 Foot drop, right foot; I69.311 Memory deficit following cerebral infarction; K21.9 Gastro-esophageal reflux disease without esophagitis; I95.1 Orthostatic hypotension; D51.3 Other dietary vitamin B12 deficiency anemia; F10.20 Alcohol dependence, uncomplicated; E55.9 Vitamin D deficiency, unspecified; N40.1 Benign prostatic hyperplasia with lower urinary tract symptoms; R32 Unspecified urinary incontinence; D50.9 Iron deficiency anemia, unspecified; E53.8 Deficiency of other specified B group vitamins; F17.200 Nicotine dependence, unspecified, uncomplicated; Z98.84 Bariatric surgery status; Z20.822 Contact with and (suspected) exposure to COVID-19; Z79.84 Long term (current) use of oral hypoglycemic drugs; Z79.899 Other long term (current) drug therapy; Z87.11 Personal history of peptic ulcer disease; Z87.19 Personal history of other diseases of the digestive system; Z95.828 Presence of other vascular implants and grafts

== ENCOUNTER → 2020-11-04 | Outpatient (REF) | payer OTHER, MEDICAID ==
[~2020-11-04] MED LIST changes: +AMLO10TA PO; +BACI1CAP PO; +CARV12.5 PO; +CARV3.12 PO; +CIPR500T39 PO; +CONS10SO3 PO; +LEVO750T13 PO; +MAGN400T2 PO; +METR-265 PO; +MIDO5TA PO; -PEG1POW PO; +POLY17PO18 PO; +SUCR1ORA2 PO; +SUCR1TAB56 PO; +TAMS1CAP17 PO; +TORS10TA3 PO; +ZYVO1TAB PO
[2020-11-04 18:28] LABS: BASO # 0.1 10^3/uL (0.0-0.2); EOS # 0.1 10^3/uL (0.0-0.5); HEMATOCRIT 24.5 % (42.0-52.0); HEMOGLOBIN 7.7 g/dl (13.5-17.5); LYMPH # 0.9 10^3/uL (1.5-5.0); LYMPH % 15.2 % (24.0-44.0); MEAN CORPUSCULAR HEMOGLOBIN 30.1 pg (27.0-33.0); MEAN CORPUSCULAR HGB CONC 31.4 g/dl (32.0-36.5); MEAN CORPUSCULAR VOLUME 95.7 fl (80.0-96.0); MONO # 0.4 10^3/uL (0.0-0.8); MONO % 7.2 % (2.0-8.0); NEUTROPHILS # 4.6 10^3/uL (1.5-8.5); NEUTROPHILS % 75.1 % (36.0-66.0); PLATELET COUNT, AUTOMATED 336 10^3/uL (150-450); RED BLOOD COUNT 2.56 10^6/uL (4.30-6.10); WHITE BLOOD COUNT 6.1 10^3/uL (4.0-10.0)
[2020-11-04 18:41] LABS: ALBUMIN 1.6 GM/DL (3.2-5.2); ALT/SGPT 19 U/L (12-78); BILIRUBIN,TOTAL 0.2 MG/DL (0.2-1.0); BLOOD UREA NITROGEN 15 MG/DL (7-18); C REACTIVE PROTEIN QUANTITATIV 0.42 MG/DL (0.00-0.30); CALCIUM LEVEL 7.4 MG/DL (8.5-10.1); CARBON DIOXIDE LEVEL 27 MEQ/L (21-32); CHLORIDE LEVEL 109 MEQ/L (98-107); CREATININE FOR GFR 1.02 MG/DL (0.70-1.30); GLOMERULAR FILTRATION RATE > 60.0 (>56); GLUCOSE, FASTING 168 MG/DL (70-100); SODIUM LEVEL 141 MEQ/L (136-145); TOTAL PROTEIN 4.4 GM/DL (6.4-8.2)
[2020-11-04 21:00] LABS: ERYTHROCYTE SEDIMENTATION RATE 30 mm/hr (0-20)
== END ==
LOC: M SFHCPLAZ 15:13
PROVIDERS: ATTEND Physician Assistant Medical
DX: N17.9 Acute kidney failure, unspecified (principal); I95.9 Hypotension, unspecified; R78.81 Bacteremia

== ENCOUNTER 2020-11-06 08:01 | Outpatient (CLI) | payer MEDICAID, OTHER ==
[2020-11-06] VITALS (8 sets, daily range): BP systolic 136–177; BP diastolic 80–91
[~2020-11-06] VITALS: Ht 175.3 cm; Wt 90.0 kg
[~2020-11-06 08:01] MED LIST changes: -AMLO10TA PO; -BACI1CAP PO; -CARV3.12 PO; -CONS10SO3 PO; +PEG1POW PO; -POLY17PO18 PO; -SUCR1TAB56 PO; -TORS10TA3 PO; -ZYVO1TAB PO; +diphenhydrAMINE 25MG CAP PO SCH
[2020-11-06] MEDS ORDERED: ACETAMINOPHEN 500 MG TAB PO ONE (10:10)
[2020-11-06] MEDS ORDERED: FUROSEMIDE 40MG/4ML VIAL (J1940) IV ONE (12:10)
== END 2020-11-06 16:00 | disposition home or self-care (01) ==
LOC: M INFU 08:01
PROVIDERS: ATTEND Physician Assistant Medical
DX: D64.9 Anemia, unspecified (principal)
CPT/HCPCS: 36430; 36592; 86850; 86920; 96374; J1940; P9016

== ENCOUNTER → 2020-11-10 | Outpatient (CLI) | payer OTHER ==
[~2020-11-10] MED LIST changes: -PEG1POW PO; +POLY17PO18 PO; -diphenhydrAMINE 25MG CAP PO SCH
[2020-11-10 14:08] LABS: BASO # 0.1 10^3/uL (0.0-0.2); BASO % 0.9 % (0.0-1.0); EOS # 0.1 10^3/uL (0.0-0.5); EOS % 0.9 % (0.0-3.0); HEMATOCRIT 33.7 % (42.0-52.0); HEMOGLOBIN 11.1 g/dl (13.5-17.5); LYMPH # 0.9 10^3/uL (1.5-5.0); MEAN CORPUSCULAR HEMOGLOBIN 30.7 pg (27.0-33.0); MEAN CORPUSCULAR HGB CONC 32.9 g/dl (32.0-36.5); MEAN CORPUSCULAR VOLUME 93.1 fl (80.0-96.0); MONO # 0.4 10^3/uL (0.0-0.8); MONO % 6.7 % (2.0-8.0); NEUTROPHILS # 4.3 10^3/uL (1.5-8.5); PLATELET COUNT, AUTOMATED 254 10^3/uL (150-450); RED BLOOD COUNT 3.62 10^6/uL (4.30-6.10); WHITE BLOOD COUNT 5.7 10^3/uL (4.0-10.0)
[2020-11-10 14:48] LABS: FERRITIN 76 NG/ML (26-388); IRON (FE) 101 UG/DL (65-175)
== END ==
LOC: M LAB 13:32
PROVIDERS: ATTEND Physician Assistant Medical
DX: D50.9 Iron deficiency anemia, unspecified (principal)

== ENCOUNTER → 2020-11-23 | Outpatient (CLI) | payer MEDICAID, OTHER ==
[2020-11-23 13:35] LABS: BASO % 0.4 % (0.0-1.0); EOS # 0.2 10^3/uL (0.0-0.5); HEMATOCRIT 30.8 % (42.0-52.0); HEMOGLOBIN 10.5 g/dl (13.5-17.5); LYMPH # 0.9 10^3/uL (1.5-5.0); LYMPH % 16.3 % (24.0-44.0); MEAN CORPUSCULAR HEMOGLOBIN 31.4 pg (27.0-33.0); MEAN CORPUSCULAR HGB CONC 34.1 g/dl (32.0-36.5); MEAN CORPUSCULAR VOLUME 92.2 fl (80.0-96.0); MONO # 0.5 10^3/uL (0.0-0.8); MONO % 8.1 % (2.0-8.0); NEUTROPHILS # 4.1 10^3/uL (1.5-8.5); NEUTROPHILS % 71.8 % (36.0-66.0); PLATELET COUNT, AUTOMATED 231 10^3/uL (150-450); RED BLOOD COUNT 3.34 10^6/uL (4.30-6.10); WHITE BLOOD COUNT 5.7 10^3/uL (4.0-10.0)
[2020-11-23 14:02] LABS: ERYTHROCYTE SEDIMENTATION RATE 29 mm/hr (0-20)
[2020-11-23 14:11] LABS: ALBUMIN 1.6 GM/DL (3.2-5.2); ALT/SGPT 17 U/L (12-78); BILIRUBIN,TOTAL 0.4 MG/DL (0.2-1.0); BLOOD UREA NITROGEN 12 MG/DL (7-18); C REACTIVE PROTEIN QUANTITATIV 7.74 MG/DL (0.00-0.30); CALCIUM LEVEL 7.4 MG/DL (8.5-10.1); CARBON DIOXIDE LEVEL 33 MEQ/L (21-32); CHLORIDE LEVEL 107 MEQ/L (98-107); CREATININE FOR GFR 0.88 MG/DL (0.70-1.30); FERRITIN 184 NG/ML (26-388); GLOMERULAR FILTRATION RATE > 60.0 (>56); GLUCOSE, FASTING 229 MG/DL (70-100); IRON (FE) 19 UG/DL (65-175); POTASSIUM SERUM 3.5 MEQ/L (3.5-5.1); SODIUM LEVEL 140 MEQ/L (136-145); TOTAL PROTEIN 4.8 GM/DL (6.4-8.2)
== END ==
LOC: M LAB 13:05
PROVIDERS: ATTEND Physician Assistant Medical
DX: N17.9 Acute kidney failure, unspecified (principal); K86.0 Alcohol-induced chronic pancreatitis; R78.81 Bacteremia; R19.7 Diarrhea, unspecified; D50.9 Iron deficiency anemia, unspecified

== ENCOUNTER 2020-12-05 16:06 | Inpatient (IN) | payer OTHER ==
[~2020-12-05] VITALS: Ht 175.3 cm; Wt 79.5 kg
--- NOTE | 2020-12-05 17:08 | REP ---
INDICATION: swelling. COMPARISON: None. TECHNIQUE: High-resolution bilateral scrotal sonography. FINDINGS: High-resolution bilateral scrotal sonography demonstrates severe scrotal wall edema diffusely. No abnormal fluid collection is seen. Testicular parenchyma is normal homogeneous. Right testis measures 3.1 x 2.1 x 2.2 cm. Left testicular dimensions are 3.2 x 2.0 x 2.2 cm. Epididymi are unremarkable. Testicular Doppler flow is preserved. Resistive indices are 0.6 on the right and 0.8 on the left. There is no evidence of hernia or varicocele. IMPRESSION: Marked diffuse scrotal wall edema. No intrascrotal abnormality is seen. No evidence of abscess. No intratesticular mass lesion is seen. The testicular Doppler flow is preserved. <Electronically signed by Ziggy Langley > 12/05/20 1001
[2020-12-05 17:23] LABS: HEMATOCRIT 28.8 % (42.0-52.0); HEMOGLOBIN 9.8 g/dl (13.5-17.5); MEAN CORPUSCULAR HEMOGLOBIN 31.6 pg (27.0-33.0); MEAN CORPUSCULAR VOLUME 92.9 fl (80.0-96.0); PLATELET COUNT, AUTOMATED 287 10^3/uL (150-450); WHITE BLOOD COUNT 6.8 10^3/uL (4.0-10.0)
[2020-12-05 17:33] LABS: INR 1.35
[2020-12-05] MEDS ORDERED: ERTAPENEM SODIUM 1 GM in NS MINI-BAG PLUS 50 ML IV ONE (17:50)
[2020-12-05] MEDS ORDERED: LABETALOL 100MG/20ML VIAL IV STA (17:54)
[2020-12-05 17:55] LABS: ALBUMIN 1.4 GM/DL (3.2-5.2); ALT/SGPT 17 U/L (12-78); BILIRUBIN,TOTAL 0.3 MG/DL (0.2-1.0); BLOOD UREA NITROGEN 5 MG/DL (7-18); C REACTIVE PROTEIN QUANTITATIV 1.29 MG/DL (0.00-0.30); CALCIUM LEVEL 6.8 MG/DL (8.5-10.1); CARBON DIOXIDE LEVEL 25 MEQ/L (21-32); CHLORIDE LEVEL 107 MEQ/L (98-107); GLOMERULAR FILTRATION RATE > 60.0 (>56); GLUCOSE, FASTING 453 MG/DL (70-100); LIPASE 47 U/L (73-393); POTASSIUM SERUM 3.5 MEQ/L (3.5-5.1); SODIUM LEVEL 140 MEQ/L (136-145); TOTAL PROTEIN 5.1 GM/DL (6.4-8.2)
[2020-12-05] MEDS ORDERED: HumuLIN R (REGULAR) INSULIN (NovoLIN R) **100U/ML** PER UNIT IV ONE (17:55)
[2020-12-05] MEDS ORDERED: TORS10TA3 PO (18:14)
[2020-12-05] MEDS ORDERED: CARV3.12 PO (18:14)
[2020-12-05] MEDS ORDERED: GLUCOSE 4GM CHEW TABLET PO PRN (18:20)
[2020-12-05] MEDS ORDERED: FUROSEMIDE 100MG/10ML VIAL (J1940) IV ONE (18:20)
[2020-12-05] MEDS ORDERED: MOM 30ML SUSPENSION UDC PO PRN (18:20)
[2020-12-05] MEDS ORDERED: MAALOX 30 ML SUSP *UDC PO PRN (18:20)
[2020-12-05] MEDS ORDERED: GLUCAGON INJ 1MG VIAL SC PRN (18:20)
[2020-12-05] MEDS ORDERED: DEXTROSE 50% 50 ML SYRINGE IV PRN (18:20)
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
[2020-12-05] MEDS ORDERED: LORazepam 2 MG TAB PO PRN (18:35)
[2020-12-05] MEDS ORDERED: CONS10SO3 PO (18:41)
[2020-12-05] MEDS ORDERED: CARV25TA PO (18:41)
[2020-12-05] MEDS ORDERED: SUCR1TAB56 PO (18:41)
[2020-12-05] MEDS ORDERED: COMMENTS (18:49)
[2020-12-05 19:00] LABS: CHOLESTEROL LEVEL 55 MG/DL (<200); CHOLESTEROL RISK RATIO 1.718 (<5); HDL CHOLESTEROL 32 MG/DL (>40); LDL CHOLESTEROL 12 MG/DL (<100); NON-HDL-C 23 MG/DL; NT-PRO BNP 1633 PG/ML (<125); TRIGLYCERIDES LEVEL 56 MG/DL (<150)
[2020-12-05 19:48] LABS: RSV AMPLIFICATION NEGATIVE (NEGATIVE)
[2020-12-05] MEDS: DOCUSATE SODIUM 100MG CAPSULE PO SCH (21:00)
[2020-12-05] MEDS: HumaLOG INSULIN (NovoLOG) PER UNIT SC SCH (21:00)
[2020-12-05 21:17] VITALS: BP 183/98
[2020-12-05 21:46] VITALS: BP 183/98
[2020-12-05] MEDS: THIAMINE 100 MG TAB PO SCH (22:03)
[2020-12-05] MEDS: NICOTINE 21MG/24HR 1 EA TRANSDERMAL TD SCH (22:03)
[2020-12-05] MEDS: ACETAMINOPHEN TAB 650MG DOSE (2X325MG) PO PRN (22:05)
[2020-12-06 06:00] VITALS: BP 164/90
[2020-12-06 06:25] LABS: HEMATOCRIT 25.9 % (42.0-52.0); HEMOGLOBIN 9.2 g/dl (13.5-17.5); MEAN CORPUSCULAR HEMOGLOBIN 31.6 pg (27.0-33.0); MEAN CORPUSCULAR HGB CONC 35.5 g/dl (32.0-36.5); PLATELET COUNT, AUTOMATED 262 10^3/uL (150-450); RED BLOOD COUNT 2.91 10^6/uL (4.30-6.10); WHITE BLOOD COUNT 5.5 10^3/uL (4.0-10.0)
[2020-12-06 07:11] LABS: ALBUMIN 1.2 GM/DL (3.2-5.2); ALT/SGPT 14 U/L (12-78); BILIRUBIN,TOTAL 0.4 MG/DL (0.2-1.0); BLOOD UREA NITROGEN 6 MG/DL (7-18); CALCIUM LEVEL 6.7 MG/DL (8.5-10.1); CARBON DIOXIDE LEVEL 26 MEQ/L (21-32); CHLORIDE LEVEL 110 MEQ/L (98-107); CREATININE FOR GFR 0.73 MG/DL (0.70-1.30); GLOMERULAR FILTRATION RATE > 60.0 (>56); GLUCOSE, FASTING 183 MG/DL (70-100); MAGNESIUM LEVEL 0.9 MG/DL (1.8-2.4); SODIUM LEVEL 143 MEQ/L (136-145); TOTAL PROTEIN 4.1 GM/DL (6.4-8.2)
[2020-12-06] MEDS ORDERED: POTASSIUM CHLORIDE 10 MEQ SR TABLET PO ONE (07:20)
[2020-12-06] MEDS: DOCUSATE SODIUM 100MG CAPSULE PO SCH ×2 (07:50→20:31)
[2020-12-06] MEDS: FOLIC ACID 1 MG TAB PO SCH (08:11)
[2020-12-06] MEDS: MULTIVITAMINS/MINERALS THERAP 1 TAB PO SCH (08:11)
[2020-12-06] MEDS: THIAMINE 100 MG TAB PO SCH ×2 (08:11→20:31)
[2020-12-06] MEDS: MAG SULF 1GM/100ML (MAG RUN) 1 GM in IV 1 EA IV SCH ×2 (08:11→09:53)
[2020-12-06] MEDS: ENOXAPARIN 40MG/0.4ML SYRINGE (J1650 PER 10MG) SC SCH (08:12)
[2020-12-06] MEDS: HumaLOG INSULIN (NovoLOG) PER UNIT SC SCH ×4 (08:12→20:30)
[2020-12-06] MEDS: FUROSEMIDE 40MG/4ML VIAL (J1940) IV SCH ×2 (08:12→17:46)
[2020-12-06] MEDS: ACETAMINOPHEN TAB 650MG DOSE (2X325MG) PO PRN ×2 (08:13→13:04)
--- NOTE | 2020-12-06 08:13 | SMCUROLCON ---
Urology Consultation General Date of Consultation 12/06/20 Reason For Consultation This patient is seen for Cellulitis, Scrotum. History of Present Illness The patient is a 55-year-old male with a past medical history for cellulitis of the legs and scrotum. He presented to the emergency room late last night with a complaint of progressive swelling of his scrotum for at least a week. Patient states he also has some discomfort in the scrotal area. He is diabetic and hypertensive but has not been taking any medications for several weeks at least. He also has a past history of cellulitis of the scrotum. He denies any urinary problems. Past Medical History Medical History Hypertension Hyperlipidemia Auqiy-Rfmfpaifx-Qxawo syndrome Chronic neck pain Chronic back pain chronic generalized pain Peripheral neuropathy Bilateral carpal tunnel syndrome iron deficiency B12 deficiency GERD Diverticulitis pancreatitis Crohn's disease tobacco use Alcohol abuse Vitamin D deficiency cirrhosis secondary to alcohol abuse Surgical Hstory Right knee surgery 1986 Bilateral inguinal hernia repair in 1989 Umbilical hernia repair in 1989 vasectomy 1994 gastric bypass 2000 Right ankle surgery 2002 removal right ankle hardware Right hip surgery 2002 shoulder surgery 2011 Cervical discectomy with disc replacement 2013 Laparoscopic lysis of adhesions Social History * Smoker: current smoker Alcohol: heavy Medications Current Medications Current Medications Medications (Trade) Dose Ordered Sig/Sandy Route PRN Reason Start Time Stop Time Status Last Admin Dose Admin Acetaminophen (Tylenol Tab) 650 mg Q4H PRN PO PAIN OR FEVER 12/05/20 18:20 12/05/20 22:05 Al Hydrox/Mg Hydrox/Simethicone (Mylanta) 30 ml DAILY PRN PO DYSPEPSIA 12/05/20 18:20 Dextrose (Dextrose 50%) 25 ml ASDIRECTED PRN IV SEE LABEL COMMENTS 12/05/20 18:20 Docusate Sodium (Colace) 100 mg BID PO 12/05/20 21:00 Enoxaparin Sodium (Lovenox) 40 mg DAILY SC 12/06/20 09:00 Ertapenem 1 gm/ Sodium Chloride 50 ml @ 100 mls/hr Q24H IV 12/06/20 18:00 Folic Acid (Folic Acid) 1 mg DAILY PO 12/06/20 09:00 Furosemide (LASIX injection) 40 mg BID@09,17 IV 12/06/20 09:00 Glucagon (Glucagon) 1 mg ASDIRECTED PRN SC SEE LABEL COMMENTS 12/05/20 18:20 Glucose (Glucose) 16 GM ASDIRECTED PRN PO SEE LABEL COMMENTS 12/05/20 18:20 Home Med (Med Rec Complete!) ASDIRECTED XX 12/05/20 18:45 12/05/20 18:51 DC Insulin Human Lispro (HumaLOG INSULIN) SEE PROTOCOL TABLE AC SC 12/06/20 07:30 Insulin Human Lispro (HumaLOG INSULIN) SEE PROTOCOL TABLE QHS SC 12/05/20 21:00 Labetalol HCl (Normodyne, Trandate) 20 mg STAT STAT IV 12/05/20 17:54 12/05/20 17:59 DC 12/05/20 18:20 Lorazepam (Ativan) 2 mg ASDIRECTED PRN PO SEE PROTOCOL 12/05/20 18:35 Magnesium Hydroxide (Milk Of Magnesia) 30 ml DAILY PRN PO CONSTIPATION 12/05/20 18:20 Magnesium Sulfate/ Dextrose 1 gm/IV Miscellaneous Supplies 100 ml @ 100 mls/hr Q1H IV 12/06/20 08:00 12/06/20 09:59 Multivitamins (Theragram-M) 1 tab DAILY PO 12/06/20 09:00 Nicotine (Nicoderm Cq 21mg) 1 patch QHS TD 12/05/20 21:00 12/05/20 22:03 Thiamine HCl (Thiamine HCl) 100 mg BID PO 12/05/20 21:00 12/08/20 09:01 12/05/20 22:03 Allergies Allergies: Coded Allergies: No Known Allergies (Unverified , 08/22/20) Review of Systems General: Reports: Normal Appetite; Denies: Fatigue, Malaise Constitutional: Denies: Fever, Chills, Sweats, Weakness, Malaise Eyes: Denies: Pain, Vision change ENT: Denies: Head Aches, Sore Throat, Epistaxis Skin: Denies: Rash, Lesions, Breakdown, Nail Changes Pulmonary: Denies: Dyspnea, Cough Cardiovascular: Denies Chest Pain, Denies Palpitations Gastrointestinal: Denies: Nausea, Vomiting, Abdominal Pain Genitourinary: Denies: Dysuria, Frequency, Incontinence, Hematuria Hematologic: Denies: Bruising, Bleeding Excessively Endocrine: Denies: Polydipsia, Polyphagia, Polyuria Musculoskeletal: Denies: Neck Pain, Back Pain Neurological: Denies: Weakness, Numbness, Incoordination, Change in Speech Psych: Reports: Mood Normal; Denies: Anxiety, Depression Physical Examination General Exam: Alert, No Acute Distress EYE EXAM: PERRLA, Conjunctiva & lids normal, EOMI; No: Sclera icteric Abdomen Exam: Normal Bowel Sounds, Soft; No: Tenderness, Hepatospenomegaly Male Exam Penis is circumcised with an indwelling Smiley catheter draining clear yellow urine. Scrotum is inflamed but nontender or edematous. Testicles, scrotum, epididymides perineum are normal Extremity Exam: Other (patient has some edema and induration with cellulitis of both upper inner thighs extending to the suprapubic region) Vital Signs/I&O Vital Signs Date Time Temp Pulse Resp B/P (MAP) Pulse Ox O2 Delivery O2 Flow Rate FiO2 12/06/20 06:00 97.5 75 18 164/90 (114) 96 Room Air I&O- Last 24 Hours up to 6 AM 12/06/20 05:59 Intake Total 200 ml Output Total 800 ml Balance -600 ml Laboratory Data 24H Labs Laboratory Tests 2 12/05/20 17:12: Nucleated Red Blood Cells % (auto) 0.0, Prothrombin Time 17.0H, Prothromb Time International Ratio 1.35, Anion Gap 8, Glomerular Filtration Rate > 60.0, Estimated Mean Plasma Glucose 212H, Hemoglobin A1c 9.0, Calcium Level 6.8L, Total Bilirubin 0.3, Aspartate Amino Transf (AST/SGOT) 17, Alanine Aminotransferase (ALT/SGPT) 17, Alkaline Phosphatase 226H, C-Reactive Protein, Quantitative 1.29H, QJ-Tlv-I-Type Natriuretic Peptide 1633H, Total Protein 5.1L, Albumin 1.4L, Albumin/Globulin Ratio 0.4, Triglycerides Level 56, Total Cholesterol 55, LDL Cholesterol 12, Non-HDL Cholesterol (LDL + VLDL) 23, Total HDL Cholesterol 32L, Cholesterol/HDL Ratio 1.718, Lipase 47L 12/05/20 18:22: Urine Color STRAW, Urine Appearance CLEAR, Urine pH 6.0, Urine Specific [place] 1.008, Urine Protein NEGATIVE, Urine Glucose (UA) 3+H, Urine Ketones NEGATIVE, Urine Blood NEGATIVE, Urine Nitrite NEGATIVE, Urine Bilirubin NEGATIVE, Urine Urobilinogen 0.2, Urine Leukocyte Esterase 1+H, Urine WBC (Auto) 9H, Urine RBC (Auto) 1, Urine Hyaline Casts (Auto) 0, Urine Bacteria (Auto) 1+H, Urine Squamous Epithelial Cells 0, Urine Sperm (Auto) 12/05/20 19:00: Coronavirus (COVID-19)(PCR) NEGATIVE, Influenza Type A (RT-PCR) NEGATIVE, Influenza Type B (RT-PCR) NEGATIVE, Respiratory Syncytial Virus (PCR) NEGATIVE 12/05/20 19:52: Bedside Glucose (Misc Panel) 254H 12/05/20 21:42: Bedside Glucose (Misc Panel) 196H 12/06/20 05:52: Nucleated Red Blood Cells % (auto) 0.0, Anion Gap 7L, Glomerular Filtration Rate > 60.0, Calcium Level 6.7L, Magnesium Level 0.9*L, Total Bilirubin 0.4, Aspartate Amino Transf (AST/SGOT) 14, Alanine Aminotransferase (ALT/SGPT) 14, Alkaline Phosphatase 192H, Total Protein 4.1L, Albumin 1.2L, Albumin/Globulin Ratio 0.4 CBC/BMP Laboratory Tests 12/05/20 17:12 12/06/20 05:52 Microbiology Microbiology 12/05/20 Urine Culture, Received Pending Assessment Early scrotal cellulitis Plan Continue with the current antibiotics as well as scrotal elevation. The scrotal inflammation should resolve with his current treatment but we'll continue to follow with you. Time Spent on Consult: Time Spent / Consult (Minutes): 60 GM ROSAS MD Dec 06, 2020 08:05
[2020-12-06] MEDS ORDERED: hydrOXYzine 50 MG TAB PO PRN (08:25)
[2020-12-06] MEDS ORDERED: EMLA CREAM 5GM TUBE (LIDOCAINE/PRILOCAINE) TOP PRN (08:25)
--- NOTE | 2020-12-06 08:38 | REP ---
INDICATION: History of decompensated cirrhosis. COMPARISON: Comparison sonography 23 Jan 2019.. TECHNIQUE: Right upper quadrant sonography. FINDINGS: Scanning through the right upper quadrant of the abdomen demonstrates normal size homogeneous liver. No biliary ductal dilation is seen. Common bile duct is normal post cholecystectomy measuring 0.65 cm in greatest diameter. Limited views of pancreas show no abnormality. There is a tiny sliver of right pleural fluid. No evidence of ascites. Right renal cortical echogenicity pattern is essentially isoechoic with liver consistent with a chronic medical renal disease. No other right renal abnormality is observed. The right kidney measures 10.6 x 4.9 x 5.5 cm. IMPRESSION: Post cholecystectomy. Tiny sliver of right pleural fluid. Echogenic renal cortex question chronic medical renal disease. Otherwise negative.. <Electronically signed by Ziggy Langley > 12/06/20 0806
--- NOTE | 2020-12-06 08:40 | REP ---
INDICATION: LE edema. COMPARISON: None. TECHNIQUE: Bilateral lower extremity duplex venous ultrasound. FINDINGS: The deep veins are anechoic and fully compressible from the groin to the popliteal fossa in the left and right lower extremity. Color flow imaging is homogeneous. Spectral Doppler interrogation demonstrates intact respiratory variation in flow and normal manual augmentation of flow. There is no evidence of deep vein thrombosis. IMPRESSION: Negative bilateral lower extremity duplex venous ultrasound. No evidence of deep vein thrombosis. <Electronically signed by Ziggy Langley > 12/06/20 0896
[2020-12-06 09:04] LABS: C REACTIVE PROTEIN QUANTITATIV 0.98 MG/DL (0.00-0.30)
[2020-12-06 09:36] LABS: ERYTHROCYTE SEDIMENTATION RATE 24 mm/hr (0-20)
[2020-12-06] MEDS: MAGNESIUM OXIDE 400MG TAB (MAG-OX) PO SCH (09:55)
[2020-12-06] MEDS: SUCRALFATE 1 GM TAB PO SCH ×2 (09:55→20:31)
[2020-12-06] MEDS: OMEPRAZOLE 20 MG CAP PO SCH ×2 (09:55→20:31)
[2020-12-06] MEDS: DULoxetine 30 MG CAP (CYMBALTA) PO SCH ×2 (09:56→20:31)
[2020-12-06] MEDS: GABAPENTIN 300 MG CAP PO SCH ×3 (09:56→20:31)
[2020-12-06] MEDS: CARVedilol 3.125 MG TAB PO SCH ×2 (09:57→20:32)
[2020-12-06] MEDS: CARVedilol 12.5 MG TAB PO SCH ×2 (09:57→20:32)
[2020-12-06] MEDS: lisinopriL 40 MG TAB PO SCH (09:57)
[2020-12-06] MEDS ORDERED: CARV12.5 PO (09:58)
[2020-12-06] MEDS ORDERED: ONDANSETRON 4 MG TAB PO PRN (12:40)
[2020-12-06 14:00] VITALS: BP 159/89
[2020-12-06] MEDS ORDERED: SODIUM CHLORIDE 0.9% 1000ML IV ONE (14:30)
[2020-12-06] MEDS ORDERED: NS 1,000 ML IV SCH (14:30)
[2020-12-06 15:15] VITALS: BP 159/89
--- NOTE | 2020-12-06 15:20 | IPNPDOC ---
Text Note Date of Service The patient was seen on 12/06/20. NOTE SUBJECTIVE: Scrotum continues to be quite erythematous and edematous, and it is also quite painful with any minimal movement. He does admit that the swelling looks and perhaps a little bit better than yesterday, but it is still significant. He does specifically requests to be seen in the evaluated by psychologist social. He admits that his living situation is less than ideal, and he has attempted home health care, but he feels as though this is not sufficient for him, he feels as though he may need to go into some solid transitional living location, or even perhaps a prison. I will put in a consult in the computer today, but he was informed that they will not be in the office until tomorrow. PHYSICAL EXAMINATION: Constitutional: Awake and alert, in no apparent distress ENT: Sclera is not icteric Respiratory: Lungs CTA bilaterally. No crackles. No respiratory distress. No use of accessory muscles. Cardiovascular: Regular rate and rhythm. No JVD. Gastrointestinal: Abdomen is soft, non distended, non tender, BS present. : His scrotum is large, swollen, and mildly tender to palpation. The erythema in his upper thighs and lower abdomen has receded a few inches according to the demarcation from yesterday. Condom catheter in place due to incontinence. Musculoskeletal: 2+ lower extremity pitting edema. Neurologic: No focal neurological deficit. Mental Status: A&O x3, normal affect HISTORY OF PRESENT ILLNESS: This is a 55-year-old male presented to the hospital with a one-week history of progressing scrotal pain and swelling. Patient admits that he is noncompliant with his medications he is in insulin-dependent diabetic but states he lost all his insulin and has not been taking it. He tells me he does not follow up with his primary care physician. He does not take his medications for his high blood pressure. When asked about his noncompliance he tells me he doesn't think the medications help him and often he just forgets. Scrotal swelling started one week prior to admission where he noticed it getting larger and becoming more painful he later noticed redness developing over his scrotum which has been spreading outwards onto his legs and lower abdomen. ASSESSMENT/PLAN # Cellulitis of scrotum: Continue IV ertapenem (Started 12/05/20). Urology was consulted, their input is appreciated, they recommend continuing with current antibiotics at this time. # Scrotal swelling: The swelling might be relating to undiagnosed CHF or decompensated cirrhosis. Diuresis with IV Lasix. # lower extremity edema: Diuresis with IV Lasix. Follow-up BNP. Lower extremity ultrasound duplex negative for DVT. # Hypertension: Noncompliant with home medications. Continue home meds carvedilol and lisinopril. Monitor and titrate # Insulin-dependent diabetes: Uncontrolled due to noncompliance. ISS. Frequent Accu-Cheks. Hypoglycemic precautions. A1c 9.0 on admission. # GERD status post gastric bypass: Continue home dose of omeprazole twice a day, as well as sucralfate # Diabetic ulcer: Consider Wound care consult on Monday. 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 CIWA protocol. Ativan as needed. Folate, multivitamins, thiamine. # Acquired right foot drop: Ambulates with cane. PT. # Smoker: Counseled to quit. Nicotine patch. # Disposition planning: Patient may require additional home services or a change in his living situation. Consult to PFS has been placed in the computer. # DVT prophylaxis: Lovenox VS,Fishbone, I+O VS, Fishbone, I+O Laboratory Tests 12/05/20 17:12 12/06/20 05:52 Vital Signs Date Time Temp Pulse Resp B/P (MAP) Pulse Ox O2 Delivery O2 Flow Rate FiO2 12/06/20 09:57 88 168/90 12/06/20 06:00 97.5 18 96 Room Air I&O- Last 24 Hours up to 6 AM 12/06/20 06:00 Intake Total 200 ml Output Total 800 ml Balance -600 ml KITA ADAMS DO Dec 06, 2020 15:20
[2020-12-06] MEDS: ERTAPENEM SODIUM 1 GM in NS MINI-BAG PLUS 50 ML IV SCH (17:46)
[2020-12-06 18:37] LABS: MAGNESIUM LEVEL 1.4 MG/DL (1.8-2.4)
[2020-12-06] MEDS: rOPINIRole 1MG TAB PO SCH (20:31)
[2020-12-06] MEDS: NALTREXONE 50 MG TAB PO SCH (20:31)
[2020-12-06] MEDS: NICOTINE 21MG/24HR 1 EA TRANSDERMAL TD SCH (20:32)
[2020-12-06 22:00] VITALS: BP 152/85
[2020-12-07 06:00] VITALS: BP 159/88
[2020-12-07 06:12] LABS: HEMATOCRIT 27.8 % (42.0-52.0); HEMOGLOBIN 9.6 g/dl (13.5-17.5); MEAN CORPUSCULAR HEMOGLOBIN 31.5 pg (27.0-33.0); MEAN CORPUSCULAR HGB CONC 34.5 g/dl (32.0-36.5); MEAN CORPUSCULAR VOLUME 91.1 fl (80.0-96.0); PLATELET COUNT, AUTOMATED 254 10^3/uL (150-450); RED BLOOD COUNT 3.05 10^6/uL (4.30-6.10); WHITE BLOOD COUNT 5.6 10^3/uL (4.0-10.0)
[2020-12-07 06:35] LABS: ALBUMIN 1.1 GM/DL (3.2-5.2); BLOOD UREA NITROGEN 7 MG/DL (7-18); CARBON DIOXIDE LEVEL 28 MEQ/L (21-32); CHLORIDE LEVEL 108 MEQ/L (98-107); CREATININE FOR GFR 0.78 MG/DL (0.70-1.30); GLOMERULAR FILTRATION RATE > 60.0 (>56); GLUCOSE, FASTING 136 MG/DL (70-100); NT-PRO BNP 1289 PG/ML (<125); PHOSPHORUS LEVEL 2.7 MG/DL (2.5-4.9); SODIUM LEVEL 141 MEQ/L (136-145)
[2020-12-07] MEDS: HumaLOG INSULIN (NovoLOG) PER UNIT SC SCH ×4 (08:49→20:11)
[2020-12-07] MEDS: ENOXAPARIN 40MG/0.4ML SYRINGE (J1650 PER 10MG) SC SCH (08:50)
[2020-12-07] MEDS: DULoxetine 30 MG CAP (CYMBALTA) PO SCH ×2 (08:51→20:20)
[2020-12-07] MEDS: OMEPRAZOLE 20 MG CAP PO SCH ×2 (08:51→20:22)
[2020-12-07] MEDS: CARVedilol 3.125 MG TAB PO SCH ×2 (08:51→20:23)
[2020-12-07] MEDS: DOCUSATE SODIUM 100MG CAPSULE PO SCH ×2 (08:51→20:23)
[2020-12-07] MEDS: THIAMINE 100 MG TAB PO SCH ×2 (08:51→20:22)
[2020-12-07] MEDS: GABAPENTIN 300 MG CAP PO SCH ×3 (08:51→20:21)
[2020-12-07] MEDS: SUCRALFATE 1 GM TAB PO SCH ×2 (08:51→20:23)
[2020-12-07] MEDS: FOLIC ACID 1 MG TAB PO SCH (08:51)
[2020-12-07] MEDS: MULTIVITAMINS/MINERALS THERAP 1 TAB PO SCH (08:52)
[2020-12-07] MEDS: lisinopriL 40 MG TAB PO SCH (08:52)
[2020-12-07] MEDS: MAGNESIUM OXIDE 400MG TAB (MAG-OX) PO SCH (08:52)
[2020-12-07] MEDS: CARVedilol 12.5 MG TAB PO SCH ×2 (08:52→20:21)
[2020-12-07] MEDS ORDERED: POTASSIUM CHLORIDE 10 MEQ SR TABLET PO SCH (09:00)
[2020-12-07] MEDS: FUROSEMIDE 40MG/4ML VIAL (J1940) IV SCH ×2 (09:03→17:48)
[2020-12-07 09:11] LABS: MAGNESIUM LEVEL 1.2 MG/DL (1.8-2.4)
[2020-12-07] MEDS: MAG SULF 1GM/100ML (MAG RUN) 1 GM in IV 1 EA IV SCH ×2 (11:56→13:20)
[2020-12-07 14:00] VITALS: BP 159/94
--- NOTE | 2020-12-07 14:41 | ECHO ---
DATE OF PROCEDURE: 12/06/2020 Age: 55 Gender: Male Height: 176 cm Weight: 80 kg REFERRING PHYSICIAN: Wilfred Escamilla MD. INDICATION: Heart failure, unspecified. MEASUREMENTS: 2D Measurements: Left atrium 4.1 cm Aortic root 4.0 cm Intraventricular septum 0.80 cm Posterior wall 0.90 cm Left ventricle diastole 5.1 cm Inferior vena cava 2.0 cm Doppler Measurements: No aortic stenosis No aortic regurgitation Aortic valve velocity 105 cm/s LVOT velocity 83.6 cm/s No mitral regurgitation No mitral stenosis Mitral E velocity 65.6 cm/s Mitral A velocity 91.3 cm/s Mitral deceleration time 349 msec Trace tricuspid regurgitation No pulmonic regurgitation Pulmonary artery acceleration time 172 msec MITRAL ANNULAR TISSUE DOPPLER E prime septal 6.3 cm/s, E prime lateral 11.1 cm/s DESCRIPTION: Rhythm was sinus. Image quality was adequate. No pericardial effusion. This was a 2D, M-mode, color flow Doppler, and pulsed wave Doppler examination including mitral annular tissue Doppler. CONCLUSIONS: 1. Normal left ventricle internal dimensions and wall thickness. Normal regional LV wall motion and wall thickening. Normal LV systolic function. LVEF 60% by visual estimate. Grade 1 LV diastolic dysfunction (impaired relaxation filling pattern). 2. Mild left atrial dilatation. 3. Suggestive of pulmonary artery systolic pressure not elevated. Normal right ventricle size and systolic function. 4. Mild dilatation of aortic root at the level of the sinuses of Valsalva. 5. Mild mitral annular calcification. No mitral regurgitation. 6. Mild aortic valve sclerosis of a 3-cuspid aortic valve. No aortic regurgitation. 7. Otherwise normal appearing echocardiogram Doppler findings. [facility]
--- NOTE | 2020-12-07 17:31 | IPNPDOC ---
Text Note Date of Service The patient was seen on 12/07/20. NOTE SUBJECTIVE: He reports that he is feeling significantly better today. On examination of the erythema has almost completely resolved, and his scrotum edema is improved albeit still present. He reports that he still has some incontinent voids, but is doing better about using the urinal or commode. He feels as the swelling and erythema is going down his better able to feel when he needs to urinate. Otherwise, the remainder of his review of systems is negative. PHYSICAL EXAMINATION: Constitutional: Awake and alert, in no apparent distress ENT: Sclera is not icteric Respiratory: Lungs CTA bilaterally. No crackles. No respiratory distress. No use of accessory muscles. Cardiovascular: Regular rate and rhythm. No JVD. Gastrointestinal: Abdomen is soft, non distended, non tender, BS present. : Groin erythema has essentially resolved, still continues to have a signifi cant amount of edema in the scrotum. Condom catheter has now been removed. Musculoskeletal: 2+ lower extremity pitting edema. Neurologic: No focal neurological deficit. Mental Status: A&O x3, normal affect ASSESSMENT/PLAN # Cellulitis of scrotum: Continue IV ertapenem (Started 12/05/20). Urology was consulted, their input is appreciated. # Scrotal swelling: The swelling might be relating to undiagnosed CHF or decompensated cirrhosis. Diuresis with IV Lasix. # lower extremity edema: Diuresis with IV Lasix. Follow-up BNP. Lower extremity ultrasound duplex negative for DVT. # Hypertension: Noncompliant with home medications. Continue home meds carvedilol and lisinopril. Blood pressures have been slowly trending down with the reinitiation of his home meds, but are still not to target value of this time. # Hypomagnesemia: Continue repletion with mag run on an as needed basis # Hypokalemia: Started him on KCl 40 mg daily, continue to monitor on a daily basis. # Insulin-dependent diabetes: Uncontrolled due to noncompliance. ISS. Frequent Accu-Cheks. Hypoglycemic precautions. A1c 9.0 on admission. # GERD status post gastric bypass: Continue home dose of omeprazole twice a day, as well as sucralfate # Diabetic ulcer: Consider Wound care consult on Monday. 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 CIWA protocol. Ativan as needed. Folate, multivitamins, thiamine. # Acquired right foot drop: Ambulates with cane. PT. # Smoker: Counseled to quit. Nicotine patch. # DVT prophylaxis: Lovenox Disposition: Patient may require additional home services or a change in his l iving situation. PFS has been consulted. VS,Fishbone, I+O VS, Fishbone, I+O Laboratory Tests 12/07/20 05:46 Vital Signs Date Time Temp Pulse Resp B/P (MAP) Pulse Ox O2 Delivery O2 Flow Rate FiO2 12/07/20 14:00 98.1 67 18 159/94 (115) 97 Room Air I&O- Last 24 Hours up to 6 AM 12/07/20 06:00 Intake Total 2290 ml Output Total 600 ml Balance 1690 ml KITA ADAMS DO Dec 07, 2020 17:31
[2020-12-07] MEDS: ERTAPENEM SODIUM 1 GM in NS MINI-BAG PLUS 50 ML IV SCH (17:48)
[2020-12-07] MEDS: NALTREXONE 50 MG TAB PO SCH (20:22)
[2020-12-07] MEDS: rOPINIRole 1MG TAB PO SCH (20:22)
[2020-12-07] MEDS: ACETAMINOPHEN TAB 650MG DOSE (2X325MG) PO PRN (20:23)
[2020-12-07] MEDS: NICOTINE 21MG/24HR 1 EA TRANSDERMAL TD SCH (20:24)
[2020-12-07 22:00] VITALS: BP 178/91
[2020-12-07 23:15] VITALS: BP 158/91
[2020-12-08 02:00] VITALS: BP 158/91
[2020-12-08] MEDS: ACETAMINOPHEN TAB 650MG DOSE (2X325MG) PO PRN (04:21)
[2020-12-08 06:00] VITALS: BP 158/78
[2020-12-08] MEDS: HumaLOG INSULIN (NovoLOG) PER UNIT SC SCH ×4 (07:30→19:59)
[2020-12-08 07:34] LABS: HEMATOCRIT 27.1 % (42.0-52.0); HEMOGLOBIN 9.2 g/dl (13.5-17.5); MEAN CORPUSCULAR HEMOGLOBIN 32.2 pg (27.0-33.0); MEAN CORPUSCULAR HGB CONC 33.9 g/dl (32.0-36.5); MEAN CORPUSCULAR VOLUME 94.8 fl (80.0-96.0); PLATELET COUNT, AUTOMATED 233 10^3/uL (150-450); RED BLOOD COUNT 2.86 10^6/uL (4.30-6.10); WHITE BLOOD COUNT 5.6 10^3/uL (4.0-10.0)
[2020-12-08 07:55] LABS: BLOOD UREA NITROGEN 10 MG/DL (7-18); CARBON DIOXIDE LEVEL 26 MEQ/L (21-32); CHLORIDE LEVEL 110 MEQ/L (98-107); CREATININE FOR GFR 0.86 MG/DL (0.70-1.30); GLOMERULAR FILTRATION RATE > 60.0 (>56); GLUCOSE, FASTING 67 MG/DL (70-100); MAGNESIUM LEVEL 1.5 MG/DL (1.8-2.4); PHOSPHORUS LEVEL 2.9 MG/DL (2.5-4.9); POTASSIUM SERUM 3.2 MEQ/L (3.5-5.1); SODIUM LEVEL 141 MEQ/L (136-145)
--- NOTE | 2020-12-08 08:16 | IPNPDOC ---
Subjective Review oF Systems Chief Complaint The patient is a 55-year-old male admitted with a reason for visit of Cellulitis, Scrotum. Events since Last Encounter Patient states she is having much less discomfort this morning. He states his scrotum is also less swollen. Review of vital signs on the patient revealed him to be afebrile last 24 hours. Morning labs: WBC is 5600, hemoglobin is 9.2 g, hematocrit 27.1%, creatinine is 0.86, BUN is 10 Urine culture is negative Objective Physical Examination General Exam: Alert, No Acute Distress ABDOMEN EXAM: Other (soft nontender nondistended) Male Exam: Normal Genital Exam (there is no erythema or edema of the scrotum noted) Vital Signs/I&O Vital Signs Date Time Temp Pulse Resp B/P (MAP) Pulse Ox O2 Delivery O2 Flow Rate FiO2 12/08/20 06:00 98.2 64 18 158/78 (104) 94 Room Air I&O- Last 24 Hours up to 6 AM 12/08/20 06:00 Intake Total 1470 ml Output Total 1000 ml Balance 470 ml Laboratory Data Labs 24H Laboratory Tests 2 12/07/20 11:09: Bedside Glucose (Misc Panel) 110H 12/07/20 16:55: Bedside Glucose (Misc Panel) 128H 12/07/20 20:10: Bedside Glucose (Misc Panel) 84 12/08/20 07:09: Nucleated Red Blood Cells % (auto) 0.0, Anion Gap 5L, Glomerular Filtration Rate > 60.0, Calcium Level 7.0L, Phosphorus Level 2.9, Magnesium Level 1.5L, Albumin 1.0L CBC/BMP Laboratory Tests 12/08/20 07:09 FSBS Laboratory Tests Test 12/07/20 11:09 12/07/20 16:55 12/07/20 20:10 Range/Units Bedside Glucose (Misc Panel) 110 128 84 70-105 MG/DL Microbiology Microbiology 12/05/20 Urine Culture - Final, Complete Assessment/Plan Date Seen The patient was seen on 12/08/20. Plan/VTE VTE Prophylaxis Ordered?: Yes Plan Assessment: Dramatic resolution of scrotal cellulitis Plan: 1. Continue oral antibiotics after discharge 2. Follow-up in urology office in 2 weeks or so. 3. I explained the Plan of management the patient. VINOD NARVAEZ MD Dec 08, 2020 08:16
[2020-12-08] MEDS ORDERED: MAG SULF 1GM/100ML (MAG RUN) 1 GM in IV 1 EA IV ONE (08:30)
[2020-12-08] MEDS: DOCUSATE SODIUM 100MG CAPSULE PO SCH ×2 (09:00→20:01)
[2020-12-08] MEDS: FUROSEMIDE 40MG/4ML VIAL (J1940) IV SCH ×4 (09:47→18:50)
[2020-12-08] MEDS: BACITRACIN OINTMENT 30GM TUBE TOP SCH ×2 (09:47→20:11)
[2020-12-08] MEDS: MULTIVITAMINS/MINERALS THERAP 1 TAB PO SCH (09:48)
[2020-12-08] MEDS: SUCRALFATE 1 GM TAB PO SCH ×2 (09:48→20:10)
[2020-12-08] MEDS: OMEPRAZOLE 20 MG CAP PO SCH ×2 (09:48→20:10)
[2020-12-08] MEDS: FOLIC ACID 1 MG TAB PO SCH (09:48)
[2020-12-08] MEDS: MAGNESIUM OXIDE 400MG TAB (MAG-OX) PO SCH (09:48)
[2020-12-08] MEDS: ENOXAPARIN 40MG/0.4ML SYRINGE (J1650 PER 10MG) SC SCH (09:48)
[2020-12-08] MEDS: DULoxetine 30 MG CAP (CYMBALTA) PO SCH ×2 (09:49→20:10)
[2020-12-08] MEDS: THIAMINE 100 MG TAB PO SCH (09:49)
[2020-12-08] MEDS: GABAPENTIN 300 MG CAP PO SCH ×3 (09:49→20:09)
[2020-12-08] MEDS: POTASSIUM CHLORIDE 10 MEQ SR TABLET PO SCH ×2 (09:49→20:10)
[2020-12-08] MEDS: CARVedilol 12.5 MG TAB PO SCH ×2 (09:51→20:10)
[2020-12-08] MEDS: CARVedilol 3.125 MG TAB PO SCH ×2 (09:51→20:10)
[2020-12-08] MEDS: lisinopriL 40 MG TAB PO SCH (09:52)
--- NOTE | 2020-12-08 10:39 | IPNPDOC ---
Date Seen The patient was seen on 12/08/20. Progress Note if progress note is needed urgently, pls have community relations coordinator call [employer] at [phone] flanagan's progress note job#[id number] VS, I&O, 24H, Fishbone Vital Signs/I&O Vital Signs Date Time Temp Pulse Resp B/P (MAP) Pulse Ox O2 Delivery O2 Flow Rate FiO2 12/08/20 09:51 61 174/97 12/08/20 06:00 98.2 18 94 Room Air I&O- Last 24 Hours up to 6 AM 12/08/20 06:00 Intake Total 1470 ml Output Total 1000 ml Balance 470 ml Laboratory Data 24H LABS Laboratory Tests 2 12/07/20 11:09: Bedside Glucose (Misc Panel) 110H 12/07/20 16:55: Bedside Glucose (Misc Panel) 128H 12/07/20 20:10: Bedside Glucose (Misc Panel) 84 12/08/20 07:09: Nucleated Red Blood Cells % (auto) 0.0, Anion Gap 5L, Glomerular Filtration Rate > 60.0, Calcium Level 7.0L, Phosphorus Level 2.9, Magnesium Level 1.5L, Albumin 1.0L CBC/BMP Laboratory Tests 12/08/20 07:09 Microbiology Microbiology 12/05/20 Urine Culture - Final, Complete VINOD FLANAGAN MD Dec 08, 2020 10:39
[2020-12-08] MEDS ORDERED: LIDOCAINE 1% MDV 20ML VIAL As Ordered ONE ×2 (11:17→13:07)
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
[2020-12-08 14:00] VITALS: BP 170/97
[2020-12-08] MEDS ORDERED: SODIUM CHLORIDE 0.9% INJ 10 ML SYR IV PRN (14:50)
--- NOTE | 2020-12-08 15:39 | REP ---
PROCEDURE NAME: MIDLINE INSERTION W/ SITERITE CLINICAL INFORMATION: poor iv access/iv abx. COMPARISON: None. PROCEDURE DESCRIPTION: The procedure was performed by BE Diaz, under the direct supervision of Dr. Langley. The risks and benefits of the procedure were explained to the patient and an informed consent was obtained both verbally and written. Directly prior to the start of the procedure a formal time-out was completed in the procedure room. The right medial brachial vein was localized using ultrasound guidance. The skin was prepped and draped in sterile fashion. One mL of 1% lidocaine 10 mg/mL was used as a local anesthetic. Using ultrasound guidance the vein was cannulated, and a 0.018 guidewire was inserted. The needle was removed and a 4.5 Ethiopian dilator and peel-away sheath was inserted over the guidewire. A 4.5 Ethiopian single lumen catheter was cut to a length of 15.5 cm. The dilator was removed and the catheter was inserted over the guidewire. The peel-away sheath was removed and the catheter was flushed with heparinized saline as per hospital protocol. The catheter was affixed to the skin and a sterile dressing was applied. The patient tolerated the procedure well and there were no immediate complications. CONCLUSION: Mid line insertion into the right medial brachial vein. <Electronically signed by Justina Olmedo > 12/08/20 [id number] <Electronically signed by Ziggy Langley > 12/08/20 1955
[2020-12-08] MEDS ORDERED: AMLO10TA PO (16:57)
[2020-12-08] MEDS ORDERED: ZYVO1TAB PO (17:34)
[2020-12-08] MEDS ORDERED: BACI1CAP PO (17:34)
[2020-12-08] MEDS: SODIUM CHLORIDE 0.9% INJ 10 ML SYR IV SCH (18:00)
[2020-12-08 18:30] LABS: MAGNESIUM LEVEL 1.7 MG/DL (1.8-2.4); POTASSIUM SERUM 3.7 MEQ/L (3.5-5.1)
[2020-12-08] MEDS: ERTAPENEM SODIUM 1 GM in NS MINI-BAG PLUS 50 ML IV SCH (18:51)
[2020-12-08] MEDS: rOPINIRole 1MG TAB PO SCH (20:09)
[2020-12-08] MEDS: NICOTINE 21MG/24HR 1 EA TRANSDERMAL TD SCH (20:11)
[2020-12-08] MEDS: NALTREXONE 50 MG TAB PO SCH (20:11)
[2020-12-08 22:00] VITALS: BP 158/96
[2020-12-09] MEDS: SODIUM CHLORIDE 0.9% INJ 10 ML SYR IV SCH (05:30)
[2020-12-09 06:00] VITALS: BP 158/84
[2020-12-09 07:05] LABS: HEMATOCRIT 32.3 % (42.0-52.0); HEMOGLOBIN 10.9 g/dl (13.5-17.5); MEAN CORPUSCULAR HEMOGLOBIN 31.7 pg (27.0-33.0); MEAN CORPUSCULAR HGB CONC 33.7 g/dl (32.0-36.5); MEAN CORPUSCULAR VOLUME 93.9 fl (80.0-96.0); PLATELET COUNT, AUTOMATED 208 10^3/uL (150-450); RED BLOOD COUNT 3.44 10^6/uL (4.30-6.10); WHITE BLOOD COUNT 5.8 10^3/uL (4.0-10.0)
[2020-12-09 07:22] LABS: ALBUMIN 1.2 GM/DL (3.2-5.2); BLOOD UREA NITROGEN 11 MG/DL (7-18); C REACTIVE PROTEIN QUANTITATIV 0.71 MG/DL (0.00-0.30); CALCIUM LEVEL 7.2 MG/DL (8.5-10.1); CARBON DIOXIDE LEVEL 27 MEQ/L (21-32); CHLORIDE LEVEL 111 MEQ/L (98-107); GLOMERULAR FILTRATION RATE > 60.0 (>56); GLUCOSE, FASTING 56 MG/DL (70-100); MAGNESIUM LEVEL 1.6 MG/DL (1.8-2.4); PHOSPHORUS LEVEL 3.2 MG/DL (2.5-4.9); POTASSIUM SERUM 3.9 MEQ/L (3.5-5.1); SODIUM LEVEL 143 MEQ/L (136-145)
[2020-12-09] MEDS: HumaLOG INSULIN (NovoLOG) PER UNIT SC SCH ×2 (07:29→12:00)
[2020-12-09 07:34] LABS: ERYTHROCYTE SEDIMENTATION RATE 13 mm/hr (0-20)
[2020-12-09] MEDS ORDERED: MAGNESIUM OXIDE 400MG TAB (MAG-OX) PO ONE (08:00)
[2020-12-09] MEDS ORDERED: LEVO750T13 PO (08:00)
[2020-12-09] MEDS ORDERED: MAG SULF 1GM/100ML (MAG RUN) 1 GM in IV 1 EA IV ONE (08:00)
--- NOTE | 2020-12-09 08:13 | IPNPDOC ---
Subjective Review oF Systems Chief Complaint The patient is a 55-year-old male admitted with a reason for visit of Cellulitis, Scrotum. Events since Last Encounter Patient states he is feeling better. He has less discomfort. Vital signs last 24 hours revealed the patient to be afebrile Objective Physical Examination General Exam: Alert, No Acute Distress, Other (general: Alert male lying in bed distress) ABDOMEN EXAM: Other (soft nontender nondistended) Male Exam: Normal Genital Exam (there is no erythema or edema of the scrotum noted) Vital Signs/I&O Vital Signs Date Time Temp Pulse Resp B/P (MAP) Pulse Ox O2 Delivery O2 Flow Rate FiO2 12/09/20 06:00 97.6 62 18 158/84 (108) 98 Room Air I&O- Last 24 Hours up to 6 AM 12/09/20 05:59 Intake Total 2290 ml Output Total 825 ml Balance 1465 ml Laboratory Data Labs 24H Laboratory Tests 2 12/08/20 11:28: Bedside Glucose (Misc Panel) 117H 12/08/20 16:56: Bedside Glucose (Misc Panel) 187H 12/08/20 17:56: Magnesium Level 1.7L 12/08/20 19:52: Bedside Glucose (Misc Panel) 127H 12/09/20 06:47: Nucleated Red Blood Cells % (auto) 0.0, Erythrocyte Sedimentation Rate 13, Anion Gap 5L, Glomerular Filtration Rate > 60.0, Calcium Level 7.2L, Phosphorus Level 3.2, Magnesium Level 1.6L, C-Reactive Protein, Quantitative 0.71H, Albumin 1.2L CBC/BMP Laboratory Tests 12/08/20 17:56 12/09/20 06:47 FSBS Laboratory Tests Test 12/08/20 11:28 12/08/20 16:56 12/08/20 19:52 Range/Units Bedside Glucose (Misc Panel) 117 187 127 70-105 MG/DL Microbiology Microbiology 12/05/20 Urine Culture - Final, Complete Assessment/Plan Date Seen The patient was seen on 12/09/20. Patient Summary Assessment: Resolving cellulitis external genitalia Plan/VTE VTE Prophylaxis Ordered?: Yes Plan Continue antibiotics and observation VINOD NARVAEZ MD Dec 09, 2020 08:13
[2020-12-09] MEDS: FUROSEMIDE 40MG/4ML VIAL (J1940) IV SCH (08:25)
[2020-12-09] MEDS: ENOXAPARIN 40MG/0.4ML SYRINGE (J1650 PER 10MG) SC SCH (08:26)
[2020-12-09] MEDS: GABAPENTIN 300 MG CAP PO SCH (08:26)
[2020-12-09] MEDS: SUCRALFATE 1 GM TAB PO SCH (08:26)
[2020-12-09] MEDS: FOLIC ACID 1 MG TAB PO SCH (08:26)
[2020-12-09] MEDS: CARVedilol 3.125 MG TAB PO SCH (08:27)
[2020-12-09] MEDS: OMEPRAZOLE 20 MG CAP PO SCH (08:27)
[2020-12-09] MEDS: POTASSIUM CHLORIDE 10 MEQ SR TABLET PO SCH (08:27)
[2020-12-09 08:28] VITALS: BP 158/84
[2020-12-09] MEDS: DOCUSATE SODIUM 100MG CAPSULE PO SCH (08:28)
[2020-12-09] MEDS: CARVedilol 12.5 MG TAB PO SCH (08:28)
[2020-12-09] MEDS: DULoxetine 30 MG CAP (CYMBALTA) PO SCH (08:28)
[2020-12-09] MEDS: lisinopriL 40 MG TAB PO SCH (08:28)
[2020-12-09] MEDS: MULTIVITAMINS/MINERALS THERAP 1 TAB PO SCH (08:28)
[2020-12-09] MEDS: BACITRACIN OINTMENT 30GM TUBE TOP SCH (08:29)
--- NOTE | 2020-12-09 12:56 | DS.PDOC ---
Discharge Summary General Date of Admission Dec 05, 2020 at 18:19 Date of Discharge 12/09/20 Discharge Summary DISCHARGE note has been dictated. If needed urgently, Please call [employer] at [phone] for stat [employer] Vital Signs/I&Os Vital Signs Date Time Temp Pulse Resp B/P (MAP) Pulse Ox O2 Delivery O2 Flow Rate FiO2 12/09/20 08:28 62 158/84 12/09/20 06:00 97.6 18 98 Room Air I&O- Last 24 Hours up to 6 AM 12/09/20 06:00 Intake Total 2290 ml Output Total 825 ml Balance 1465 ml Laboratory Data Labs 24H Laboratory Tests 2 12/08/20 16:56: Bedside Glucose (Misc Panel) 187H 12/08/20 17:56: Magnesium Level 1.7L 12/08/20 19:52: Bedside Glucose (Misc Panel) 127H 12/09/20 06:47: Magnesium Level 1.6L, Nucleated Red Blood Cells % (auto) 0.0, Erythrocyte Sedimentation Rate 13, Anion Gap 5L, Glomerular Filtration Rate > 60.0, Calcium Level 7.2L, Phosphorus Level 3.2, C-Reactive Protein, Quantitative 0.71H, Albumin 1.2L 12/09/20 09:15: Bedside Glucose (Misc Panel) 133H 12/09/20 11:44: Bedside Glucose (Misc Panel) 154H CBC/BMP Laboratory Tests 12/08/20 17:56 12/09/20 06:47 FSBS Laboratory Tests Test 12/08/20 16:56 12/08/20 19:52 12/09/20 09:15 12/09/20 11:44 Range/Units Bedside Glucose (Misc Panel) 187 127 133 154 70-105 MG/DL Microbiology Microbiology 12/09/20 Respiratory Virus Panel (PCR) (MONET) - Final, Complete 12/05/20 Urine Culture - Final, Complete Discharge Medications Scheduled Amlodipine Besylate (Norvasc) 10 Mg Tablet, 10 MG PO DAILY Bacillus Coagulans (Bacid with Lactospore) 1 Each Capsule, 1 CAP PO WM Carvedilol (Carvedilol) 3.125 Mg Tablet, 3.125 MG PO BID, (Reported) TAKE WITH 25MG TAB Carvedilol (Carvedilol) 12.5 Mg Tablet, 12.5 MG PO BID, (Reported) TAKES WITH 3.125MG TAB/ PATIENT HAD BEEN USING 25MG TABS AT HOME WITHOUT SPLITTING THEM Folic Acid (Folic Acid) 1 Mg Tablet, 1 MG PO DAILY, (Reported) Gabapentin (Gabapentin) 600 Mg Tablet, 600 MG PO TID, (Reported) Lactulose (Constulose) 10 Gm/15 Ml Solution, 15 ML PO DAILY, (Reported) Levofloxacin (Levofloxacin) 750 Mg Tablet, 750 MG PO DAILY Linezolid (Zyvox) 600 Mg Tablet, 600 MG PO BID with food Lisinopril (Lisinopril) 40 Mg Tablet, 40 MG PO DAILY, (Reported) Magnesium Oxide (Magnesium Oxide) 400 Mg Tablet, 400 MG PO DAILY, (Reported) Metformin HCl (Metformin HCl ER) 500 Mg Tab.er.24h, 1,000 MG PO BID, (Reported) Multivitamin,Therapeutic (Thera-Tabs) 1 Each Tablet, 1 TAB PO DAILY, (Reported) Naltrexone HCl (Naltrexone HCl) 50 Mg Tablet, 50 MG PO QHS, (Reported) [place]-3 Acid Ethyl Esters ([place]-3 Acid Ethyl Esters) 1 Gm Capsule, 4 GM PO DAILY, (Reported) Omeprazole (Omeprazole) 40 Mg Capsule.dr, 40 MG PO BID, (Reported) Ropinirole HCl (Ropinirole HCl) 0.5 Mg Tablet, 1 MG PO QHS, (Reported) Sucralfate (Sucralfate) 1 Gm Tablet, 1 GM PO BID, (Reported) Thiamine HCl (Thiamine HCl) 100 Mg Tablet, 100 MG PO DAILY, (Reported) Torsemide (Torsemide) 10 Mg Tablet, 10 MG PO Q2D, (Reported) Scheduled PRN Hydroxyzine HCl (Hydroxyzine HCl) 50 Mg Tablet, 50 MG PO TID PRN for ANXIET Y/AGITATION, (Reported) Lidocaine/Prilocaine (Lidocaine-Prilocaine Cream) 2.5%/2.5% Cream..g., 1 APPLIC TOP BID PRN for PAIN, (Reported) APPLY TO AFFECTED AREA ON RIGHT LEG Miscellaneous Medications [Comments] , (Reported) MED LIST [facility] Allergies Coded Allergies: No Known Allergies (Unverified , 08/22/20) VINOD MARTINEZ MD Dec 09, 2020 12:56
--- NOTE | 2020-12-09 13:22 | DSES ---
DISCHARGE SUMMARY DATE OF ADMISSION: 12/05/2020 DATE OF DISCHARGE: 12/09/2020 PARTNER: Urologist, Dr. Mcmillan. PRIMARY DISCHARGE DIAGNOSES: 1. Scrotal abscess/cellulitis. 2. Uncontrolled hypertension. 3. Electrolyte abnormalities, hypokalemia, and hypomagnesemia. 4. Generalized weakness. 5. History of alcohol abuse with alcoholic liver cirrhosis. 6. Crohn's disease. 7. History of Afjmv-Yaqfvucje-Loooq syndrome. 8. Gastroesophageal reflux disease. DISCHARGE MEDICATIONS: 1. Zyvox 600 mg p.o. b.i.d. 2. Levaquin 750 daily. 3. Bacid one cup with meals. 4. Norvasc 10 mg daily. 5. Coreg 12.5 mg b.i.d. 6. Folic acid 1 mg daily. 7. Gabapentin 600 t.i.d. 8. Hydroxyzine 50 mg t.i.d. as needed for anxiety. 9. Lactulose 15 mL daily. 10. Lidocaine/procaine topically b.i.d. 11. Lisinopril 40 mg daily. 12. Max-ox 400 daily. 13. Metformin 1 gram b.i.d. 14. Multivitamin one tablet daily. 15. Valtrex 150 q. h.s. 16. Blythe-3 at 4 grams daily. 17. Prilosec 40 b.i.d. 18. Ropinirole 1 mg q. h.s. 19. Carafate 1 gram b.i.d. 20. Thiamine 100 daily. 21. Torsemide 10 mg every second day. HOSPITAL COURSE: This is a 55-year-old male admitted on 12/05 with complaints of scrotal pain and swelling for the past week with increasing erythema along the medial thigh. Urologist, Dr. Camargo, was contacted from the emergency room and requested admission by hospitalist for IV antibiotics. The patient was found to have possible early abscess in the scrotum with underlying cellulitis and was treated with intravenous Ertapenem. Due to history of alcohol abuse, last drink was the day of admission, he was kept on CIWA protocol with Ativan as needed, folate, multivitamin, and thiamine. He complained of generalized weakness and was evaluated by acute rehab unit. The patient had significant improvement without any fever or chills on IV Ertapenem with decreasing erythema and swelling. The scrotum was elevated on a rolled towel at all times. He was anemic, but did not require any RBC transfusion. The patient had electrolyte abnormalities with low potassium and magnesium, which were all supplemented. The patient had a slightly elevated BMP and was kept on his home dose of diuretic. He had uncontrolled blood pressure despite his home regimen and was started on Norvasc 10 mg daily with some improvement. The patient is to follow-up with urologist, Dr. Mcmillan, as an outpatient within a week of hospital discharge. DISCHARGE PHYSICAL EXAMINATION: VITAL SIGNS: Temperature 97.6, pulse 62, respiratory rate 18, blood pressure 158/84, 98% on room air. GENERAL: The patient is awake, alert, and oriented. Answering questions appropriate, in no distress. NECK: No JVD, thyromegaly, or cervical lymphadenopathy. LUNGS: Clear to auscultation. No wheezing, rales, or rhonchi. HEART: S1, S2. Sinus rhythm. ABDOMEN: Soft, nontender, and nondistended with positive bowel sounds. SKIN: Erythema along the medial thigh has significantly improved. There is no induration or crepitus. GENITOURINARY: The scrotum itself has decreasing edema and erythema, but still slightly tender on palpation. There is no fluctuant abscess. EXTREMITIES: Positive 1+ pitting edema bilaterally. LABORATORY DATA: On discharge, white count 5.8, hemoglobin 10.9, hematocrit 32, platelet count 208,000. Sodium 143, potassium 3.9, chloride 111, bicarb 27, BUN 11, creatinine 0.91, glucose of 56, magnesium of 1.6. IMAGING STUDIES: Liver ultrasound post cholecystectomy tiny sliver of right pleural fluid, echogenic renal cortex, question chronic medical renal disease. Bilateral lower extremity Dopplers negative for DVT. Scrotal ultrasound: Severe scrotal wall edema diffusely. No abdominal fluid collection. Testicular parenchyma is normal. Marked scrotal edema. No intrascrotal abnormality. No evidence of abscess. No testicular mass lesion is seen. Testicular Doppler flow is preserved. Time spent on discharge: 30 minutes. MTDD
== END 2020-12-09 13:08 | disposition home or self-care (01) | DRG 728 ==
LOC: M ED 16:06 → M ED INP 18:19 → M MSPAV 21:17
PROVIDERS: ADMIT Family Medicine; ATTEND General Practice
PROC: 02HV33Z Insertion of Infusion Device into Superior Vena Cava, Percutaneous Approach (ICD-10-PCS; principal; 2020-12-08 12:30)
DX: N49.2 Inflammatory disorders of scrotum (principal); K50.90 Crohn's disease, unspecified, without complications; K70.30 Alcoholic cirrhosis of liver without ascites; I10 Essential (primary) hypertension; E11.51 Type 2 diabetes mellitus with diabetic peripheral angiopathy without gangrene; F10.10 Alcohol abuse, uncomplicated; Z91.14 Patient's other noncompliance with medication regimen; I45.6 Pre-excitation syndrome; E87.6 Hypokalemia; K21.9 Gastro-esophageal reflux disease without esophagitis; Z79.899 Other long term (current) drug therapy; E83.42 Hypomagnesemia; E78.5 Hyperlipidemia, unspecified; M54.2 Cervicalgia; M54.5 Low back pain; E55.9 Vitamin D deficiency, unspecified; F17.200 Nicotine dependence, unspecified, uncomplicated; Z79.4 Long term (current) use of insulin

== ENCOUNTER 2021-01-05 20:53 | Inpatient (IN) | payer OTHER, MEDICAID ==
[~2021-01-05] VITALS: Ht 175.3 cm; Wt 99.5 kg
[~2021-01-05 20:53] MED LIST changes: +AMLO10TA PO; +BACI1CAP PO; +CARV3.12 PO; +CONS10SO3 PO; +SUCR1TAB56 PO; +TORS10TA3 PO; +ZYVO1TAB PO
[2021-01-05] MEDS ORDERED: NS 1,000 ML IV ONE (21:10)
--- NOTE | 2021-01-05 22:58 | REPVR ---
PROCEDURE INFORMATION: Exam: CT Head Without Contrast Exam date and time: 01/05/2021 10:28 PM Age: 55 years old Clinical indication: Injury or trauma; Fall; Blunt trauma (contusions or hematomas); Additional info: Weakness, fall TECHNIQUE: Imaging protocol: Computed tomography of the head without contrast. Radiation optimization: All CT scans at this facility use at least one of these dose optimization techniques: automated exposure control; mA and/or kV adjustment per patient size (includes targeted exams where dose is matched to clinical indication); or iterative reconstruction. COMPARISON: CT Head without contrast 10/24/2020 11:37 PM FINDINGS: Brain: Moderate to severe volume loss. Decreased attenuation of the supratentorial white matter is likely secondary to chronic microvascular ischemia. Chronic left frontal lobe infarct. No acute intracranial hemorrhage, midline shift or intracranial mass effect. Chronic lacunar infarct at the left thalamus. Cerebral ventricles: Stable ventriculomegaly. Bones/joints: Unremarkable. No acute fracture. Paranasal sinuses: Visualized sinuses are unremarkable. No fluid levels. Mastoid air cells: Visualized mastoid air cells are well aerated. Soft tissues: Unremarkable. IMPRESSION: No acute intracranial abnormality. Electronically signed by: Enrique Jimenez On 01/05/2021 22:57:36 PM
--- NOTE | 2021-01-05 23:52 | REPVR ---
PROCEDURE INFORMATION: Exam: XR Chest Exam date and time: 01/05/2021 11:22 PM Age: 55 years old Clinical indication: Other: Weakness TECHNIQUE: Imaging protocol: XR of the chest. Views: 1 view. COMPARISON: CR PORTABLE CHEST X-RAY 10/24/2020 7:56 PM FINDINGS: Lungs: No consolidation. Mild linear atelectasis at the right mid upper lung. Pleural spaces: Unremarkable. No pleural effusion. No pneumothorax. Heart/Mediastinum: Unremarkable. No cardiomegaly. Diaphragm: Elevation of the left hemidiaphragm. Bones/joints: Unremarkable. IMPRESSION: No acute process. Electronically signed by: Enrique Jimenez On 01/05/2021 23:51:34 PM
[2021-01-06] VITALS (12 sets, daily range): BP systolic 110–146; BP diastolic 70–105; O2SAT 95–97
[2021-01-06 01:32] LABS: OSMOLALITY SERUM 294 MOSM/KG (275-295)
[2021-01-06 01:38] LABS: ACETAMINOPHEN LEVEL 5.1 UG/ML (10.0-30.0); ALBUMIN 1.3 GM/DL (3.2-5.2); ALT/SGPT 22 U/L (12-78); BILIRUBIN,DIRECT 0.2 MG/DL (0.0-0.2); BILIRUBIN,TOTAL 0.5 MG/DL (0.2-1.0); BLOOD UREA NITROGEN 13 MG/DL (7-18); CALCIUM LEVEL 6.6 MG/DL (8.5-10.1); CARBON DIOXIDE LEVEL 23 MEQ/L (21-32); CHLORIDE LEVEL 109 MEQ/L (98-107); CK-MB VALUE MASS 6.7 NG/ML (<3.6); CPK CREATINE PHOSPHOKINASE 178 U/L (39-308); CREATININE FOR GFR 2.04 MG/DL (0.70-1.30); ETHYL ALCOHOL (ETHANOL) < 0.003 % (0.000-0.010); GLOMERULAR FILTRATION RATE 36.4 (>56); GLUCOSE, FASTING 200 MG/DL (70-100); MB/CK RELATIVE INDEX 3.76 (< OR =4); POTASSIUM SERUM 3.8 MEQ/L (3.5-5.1); SALICYLATE LEVEL < 1.7 MG/DL (5.0-30.0); SODIUM LEVEL 143 MEQ/L (136-145); TOTAL PROTEIN 4.7 GM/DL (6.4-8.2); TROPONIN I < 0.02 NG/ML (< 0.10)
[2021-01-06 02:02] LABS: VENOUS HCO3 23.6 MEQ/L (23.0-27.0); VENOUS O2 SATURATION 88.9 % (60.0-80.0); VENOUS PARTIAL PRESSURE CO2 38.6 mmHg (38.0-50.0); VENOUS PARTIAL PRESSURE O2 58.3 mmHg (30.0-50.0); VENOUS PH 7.404 UNITS (7.330-7.430); VENOUS STANDARD HCO3 23.5 MEQ/L; VENOUS TOTAL CO2 24.8 MEQ/L (24.0-28.0)
[2021-01-06 02:03] LABS: BASO % 0.1 % (0.0-1.0); EOS # 0.1 10^3/uL (0.0-0.5); EOS % 0.7 % (0.0-3.0); HEMATOCRIT 29.3 % (42.0-52.0); LYMPH # 0.9 10^3/uL (1.5-5.0); LYMPH % 12.8 % (24.0-44.0); MEAN CORPUSCULAR HEMOGLOBIN 32.2 pg (27.0-33.0); MEAN CORPUSCULAR HGB CONC 34.1 g/dl (32.0-36.5); MEAN CORPUSCULAR VOLUME 94.2 fl (80.0-96.0); MONO # 0.6 10^3/uL (0.0-0.8); MONO % 8.5 % (2.0-8.0); NEUTROPHILS # 5.4 10^3/uL (1.5-8.5); NEUTROPHILS % 77.8 % (36.0-66.0); PLATELET COUNT, AUTOMATED 258 10^3/uL (150-450); RED BLOOD COUNT 3.11 10^6/uL (4.30-6.10)
[2021-01-06 02:14] LABS: INR 1.4; PROTHROMBIN TIME 17.5 SECONDS (12.5-14.3)
[2021-01-06 02:15] LABS: PARTIAL THROMBOPLASTIN TIME 28.5 SECONDS (24.2-38.5)
[2021-01-06 02:47] LABS: RSV AMPLIFICATION NEGATIVE (NEGATIVE)
--- NOTE | 2021-01-06 03:03 | REPVR ---
PROCEDURE INFORMATION: Exam: CT Abdomen And Pelvis Without Contrast Exam date and time: 01/06/2021 2:22 AM Age: 55 years old Clinical indication: Abdominal pain; Generalized; Additional info: Acute renal failure TECHNIQUE: Imaging protocol: Computed tomography of the abdomen and pelvis without contrast. Radiation optimization: All CT scans at this facility use at least one of these dose optimization techniques: automated exposure control; mA and/or kV adjustment per patient size (includes targeted exams where dose is matched to clinical indication); or iterative reconstruction. COMPARISON: CT ABD/PEL W/IV ORAL CONTRAS 10/21/2020 4:25 PM FINDINGS: Pleural spaces: Right larger than left pleural effusions, incompletely visualized. Liver: Normal. No mass. Gallbladder and bile ducts: Previous cholecystectomy. Pancreas: Findings of chronic pancreatitis. Spleen: Atrophic spleen. Adrenal glands: Normal. No mass. Kidneys and ureters: There is symmetric bilateral perinephric infiltration, nonspecific however typically chronic. No hydronephrosis or hydroureter. Stomach and bowel: There is gastric postoperative change. Stomach is distended. There is colonic thickening greatest at the distal descending colon and sigmoid colon. Appendix: No evidence of appendicitis. Intraperitoneal space: Small volume of ascites. Vasculature: Vascular calcification. IVC filter is present. Lymph nodes: Unremarkable. No enlarged lymph nodes. Urinary bladder: Unremarkable as visualized. Reproductive: Unremarkable as visualized. Bones/joints: There are chronic left-sided rib fractures. Postoperative change involving the right hip. There are mild degenerative changes involving the spine. Soft tissues: Anasarca. Postoperative change involving the anterior abdominal wall. IMPRESSION: 1. Severe anasarca. 2. Right larger than left pleural effusions are incompletely visualized. 3. Mild colonic thickening greatest at the distal descending colon/sigmoid colon. Thickening may be secondary to 3rd spacing of fluid, nonspecific colitis not excluded. 4. Additional findings as above. COMMENTS: For patients with an IVC filter, recommend assessment for a management plan for the patient's IVC filter. If there is no established management plan, recommend referral to an interventional clinician on a nonemergent basis for evaluation. Electronically signed by: Enrique Jimenez On 01/06/2021 03:03:33 AM
--- NOTE | 2021-01-06 03:10 | REPVR ---
PROCEDURE INFORMATION: Exam: XR Chest Exam date and time: 01/06/2021 2:22 AM Age: 55 years old Clinical indication: Other vascular access device placement or adjustment; Central line, non-tunnelled; Additional info: Post central line insertion TECHNIQUE: Imaging protocol: XR of the chest. Views: 1 view. COMPARISON: CR Chest, 1 view 01/05/2021 11:14 PM FINDINGS: Tubes, catheters and devices: Right IJ central line terminates at the cavoatrial junction. Lungs: No consolidation. Right perihilar linear atelectasis or scarring. Pleural spaces: Pleural effusions are better demonstrated on CT. Heart/Mediastinum: Unremarkable. No cardiomegaly. Bones/joints: Postoperative change involving the lower cervical spine. IMPRESSION: 1. Right IJ central line terminates at the cavoatrial junction. 2. Pleural effusions are better demonstrated on CT. Electronically signed by: Enrique Jimenez On 01/06/2021 03:10:30 AM
[2021-01-06] MEDS ORDERED: LACTULOSE 20 GM/30 ML SYRUP UD PO ONE (03:35)
[2021-01-06] MEDS ORDERED: LACTULOSE 20 GM/30 ML SYRUP UD As Ordered ONE (04:00)
[2021-01-06] MEDS ORDERED: FUROSEMIDE 40MG/4ML VIAL (J1940) IV ONE (04:45)
[2021-01-06] MEDS ORDERED: LORazepam 2 MG TAB PO PRN (04:45)
[2021-01-06] MEDS ORDERED: GLUCOSE 4GM CHEW TABLET PO PRN (05:00)
[2021-01-06] MEDS ORDERED: GLUCAGON INJ 1MG VIAL SC PRN (05:00)
--- NOTE | 2021-01-06 05:00 | HPEPDOC ---
[facility] Medical History & Physical Date of Admission Jan 06, 2021 Date of Service: Jan 06, 2021 Primary Care Physician: Salud Sparks Attending Physician: JASIEL BALLARD MD History and Physical Chief complaint: Weakness in legs HPI: Patient is a 55-year-old male who presented to the emergency department due to weakness in his legs. Patient states that he fell in his bedroom earlier in the morning. Patient was unable to get up and remained on the floor for quite so me time. Patient stated that he was able to drag himself to the kitchen in search of his cell phone however, he was unable to find it. Patient cried out for help and after about 7 hours, one of his neighbors found him on the ground. EMS was called and the patient was brought into the emergency department. Patient states that he did not feel dizzy prior to the fall. Patient has been having issues with incontinence however, he denies any saddle anesthesia. Patient states that he was recently hospitalized at the end of November for scrotal cellulitis and was discharged to [facility] rehabilitation but left AMA recently. Patient has noticed over the last few days, his legs have been working less and less. Patient denies having any pain at this time. Patient states that he was only dizzy when EMS set him up in his house. Patient denies any other complaints. Past medical history: 1. Hypertension 2. Type 2 diabetes 3. Chronic neck pain 4. Chronic back pain 5. Iron deficiency 6. B12 deficiency 7. GERD 8. Myqvg-Jioorlzle-Tieuw syndrome 9. Diverticulitis 10. History of pancreatitis 11. History of Crohns disease 12. Severe sensorimotor polyneuropathy 13. History of alcoholism 14. Dyslipidemia Past surgical history: 1. Right knee surgery 2. Bilateral inguinal umbilical hernia repair 3. Vasectomy 4. Gastric bypass 5. Right ankle surgery 6. Right hip surgery 7. Right little finger surgery 8. Right shoulder surgery 9. Cervical discectomy with disc replacement 10. Carpal tunnel Social history: Patient lives alone and smokes about 5 cigarettes a day. Patient does drink alcohol and states he drinks 2 Natty Daddys a day (24 ounce cans, 8% ABV). Patient denies any illicit drug use Family history: Father at 65 years old of an [place]. Mother 65 years old from COPD and breast cancer. Patient has a sibling who has MS. Allergies: NKDA Medications: See below Review of systems: General: Patient denies fevers HEENT: Patient denies headaches Cardiovascular: Patient denies chest pain Respiratory: Patient denies shortness of breath, cough GI: Patient denies abdominal pain, nausea, vomiting, diarrhea, incontinence of stool : Patient reports difficulty with urination secondary to his penis being buried in the suprapubic Fat pad. Patient denies any testicular pain Extremities: Patient reports swelling in his legs and back Neurological: Patient reports numbness in bilateral legs which is chronic. Skin: Patient reports many wounds on his skin Hematologic: Patient denies any easy bruising. Lymphatic: Patient denies any lumps lumps or bumps in neck, axilla, or groin Physical exam: Vital signs: General: Alert and oriented male patient who is laying on the stretcher when I walked in the room. Patient did not appear to be in any acute distress HEENT: Normocephalic, atraumatic, moist mucous membranes. Neck: No lymphadenopathy or thyromegaly Cardiac: Regular rate and rhythm, no murmurs, normal S1, normal S2 Pulm: Patient was lying down throughout the respiratory exam. There was minimal to no breath sounds in the posterior aspect the lungs, anterior aspect of the lungs were clear to auscultation bilaterally. Abd: Nondistended, mildly tender to palpation of the lower quadrants , normal bowel sounds Rectal: Patient had voluntary rectal tone with nonbloody stool in the rectal vault. Occult was negative dependent edema on the flanks of the abdomen bilaterally. : Patients penis was buried in the suprapubic fat pad, scrotum was mildly swollen without evidence of erythema, scrotum was nontender to the touch: groin was erythematous. Ext: Tense edema in the bilateral lower extremities. Neuro patient reported equal sensation to light touch in his lower extremities bilaterally. Patient was able to discern which toes touching with eyes closed. Imaging: A chest x-ray performed on 01/05/2021 was reported to show no acute process. A CT of the head performed without contrast on 01/05/2021 was reported to show no acute intracranial abnormality. A chest x-ray performed post insertion of a triple-lumen catheter in the internal jugular vein was reported to show right IJ central line terminates at the cavoatrial junction. Pleural effusions are better demonstrated on CT. A CT of the abdomen and pelvis performed without contrast on 01/06/2021 was reported to show severe anasarca, right larger than left pleural effusions are incompletely visualized, mild colonic thickening gratis at the distal descending colon/sigmoid colon. Thickening may be secondary to third spacing of fluid, nonspecific colitis not excluded. Assessment: Patient is a 55-year-old male who presented to the hospital via EMS after falling down and being unable to get himself up. Patient was found to be grossly anasacic with edema and lower extremities and dependent edema in the back. Plan: 1. Weakness. Likely multifactorial. Patient has anemia, very low albumin which is mostly playing a role in patients weakness as well as swelling. Patient does not appear to eat a lot and does drink alcohol. We will attempt diuresis with albumin and Lasix and have the patient work with physical therapy in order to improve. 2. Anasarca. Patients albumin level was very low at 1.2. We will give the patient albumin and Lasix in order to help with the swelling. We will have nutrition consult for the patient. Patient will continue work with physical therapy. 3. Acute kidney injury: We will diurese the patient. I believe the patient is fluid overloaded however, most of his fluid is outside the vasculature. We will give albumin and Lasix as above. 4. Hyperammonemia. Patient's ammonia level was elevated. Patient's mental status seems to be clear however, patient may be slurring his words however, I am not sure what patient's baseline is. I have written for lactulose to be given every 8 hours and call once patient has achieved 2-3 loose bowel movements a day. 5. Hypertension. Patients blood pressure is relatively normal at this time. We will be giving the patient diuretics so we will hold his blood pressure medication and restart it when necessary. 6. Alcohol use. Patient was placed on the CIWA protocol and we will continue to monitor. 7. Genital candidiasis: Nystatin cream will be given. Patient looks to have either irritant dermatitis or candidal dermatitis in the groin area. Patient says he has been incontinent of urine and does not appear to have good hygiene so appears that he may have an irritant burn from the urine sitting on his skin in between his legs. I do not suspect a repeat of the patients scrotal cellulitis. 8. Type 2 diabetes. Patient was placed on sliding scale insulin with fingerstick coverage. 9. DVT prophylaxis: Heparin 5000 units every 8 hours 10. CODE STATUS: Full code Disposition: Patient will be admitted to the medical/surgical floor for further monitoring. Patient will most likely need placement. PFS consult will be placed. Vital Signs Vital Signs Date Time Temp Pulse Resp B/P (MAP) Pulse Ox O2 Delivery O2 Flow Rate FiO2 01/06/21 03:01 95 133/79 (97) 84 Room Air 01/05/21 23:51 96.9 01/05/21 21:09 18 Laboratory Data Labs 24H Laboratory Tests 2 01/05/21 21:02: Bedside Glucose (Misc Panel) 177H 01/06/21 00:56: Anion Gap 11, Glomerular Filtration Rate 36.4L, Osmolality 294, Calcium Level 6.6L, Total Bilirubin 0.5, Direct Bilirubin 0.2, Aspartate Amino Transf (AST/SGOT) 30, Alanine Aminotransferase (ALT/SGPT) 22, Alkaline Phosphatase 194H, Total Creatine Kinase 178, Creatine Kinase MB 6.7H, Creatine Kinase MB Relative Index 3.76, Troponin I < 0.02, Total Protein 4.7L, Albumin 1.3L, Albumin/Globulin Ratio 0.4, Thyroid Stimulating Hormone (TSH) 7.900H, Salicylates Level < 1.7L, Acetaminophen Level 5.1L, Ethyl Alcohol Level < 0.003 01/06/21 01:54: Immature Granulocyte % (Auto) 0.1, Neutrophils (%) (Auto) 77.8H, Lymphocytes (%) (Auto) 12.8L, Monocytes (%) (Auto) 8.5H, Eosinophils (%) (Auto) 0.7, Basophils (%) (Auto) 0.1, Neutrophils # (Auto) 5.4, Lymphocytes # (Auto) 0.9L, Monocytes # (Auto) 0.6, Eosinophils # (Auto) 0.1, Basophils # (Auto) 0.0, Nucleated Red Blood Cells % (auto) 0.0, Prothrombin Time 17.5H, Prothromb Time International R atio 1.40, Activated Partial Thromboplast Time 28.5, Blood Gas Bicarbonate Standard 23.5, Venous Blood pH 7.404, Venous Blood Partial Pressure CO2 38.6, Venous Blood Partial Pressure O2 58.3H, Venous Blood Total Carbon Dioxide 24.8, Venous Blood HCO3 23.6, Venous Blood Oxygen Saturation 88.9H, Venous Blood Base Excess -1.0, Lactic Acid Level 1.6, Ammonia 44H, Coronavirus (COVID-19)(PCR) NEGATIVE, Influenza Type A (RT-PCR) NEGATIVE, Influenza Type B (RT-PCR) NEGATIVE, Respiratory Syncytial Virus (PCR) NEGATIVE CBC/BMP Laboratory Tests 01/06/21 00:56 01/06/21 01:54 Home Medications Scheduled Carvedilol (Carvedilol) 3.125 Mg Tablet, 3.125 MG PO BID TAKES WITH 12.5MG FOR 15.625MG TOTAL Carvedilol (Carvedilol) 25 Mg Tablet, 12.5 MG PO BID TAKES WITH 3.125MG FOR 15.625MG TOTAL Doxycycline Hyclate (Doxycycline Hyclate) 100 Mg Tablet, 100 MG PO BID Folic Acid (Folic Acid) 1 Mg Tablet, 1 MG PO DAILY Lactulose (Constulose) 10 Gm/15 Ml Solution, 15 ML PO DAILY Magnesium Oxide (Magnesium Oxide) 400 Mg Tablet, 400 MG PO DAILY Metformin HCl (Metformin HCl ER) 500 Mg Tab.er.24h, 1,000 MG PO BID Multivitamin,Therapeutic (Thera-Tabs) 1 Each Tablet, 1 TAB PO DAILY [place]-3 Acid Ethyl Esters ([place]-3 Acid Ethyl Esters) 1 Gm Capsule, 4 GM PO DUNG Y Omeprazole (Omeprazole) 40 Mg Capsule.dr, 40 MG PO DAILY Ropinirole HCl (Ropinirole HCl) 0.5 Mg Tablet, 1 MG PO QHS Sucralfate (Sucralfate) 1 Gm Tablet, 1 GM PO BID Thiamine HCl (Thiamine HCl) 100 Mg Tablet, 100 MG PO DAILY Vancomycin HCl (Firvanq) 50 Mg/1 Ml Soln.recon, 125 MG PO Q6H Scheduled PRN Hydroxyzine HCl (Hydroxyzine HCl) 50 Mg Tablet, 50 MG PO TID PRN for ANXIETY/AGITATION Lidocaine/Prilocaine (Lidocaine-Prilocaine Cream) 2.5%/2.5% Cream..g., 1 APPLIC TOP BID PRN for PAIN APPLY TO AFFECTED AREA ON RIGHT LEG Allergies Coded Allergies: No Known Allergies (Unverified , 08/22/20) A-FIB/CHADSVASC A-FIB History Current/History of A-Fib/PAF?: No GME ATTESTATION GME ATTESTATION My faculty preceptor for this patient encounter was physically present during the encounter and was fully available. All aspects of the patient interview, examination, medical decision making process, and medical care plan development were reviewed and approved by the faculty preceptor. The faculty preceptor is aware and concurs with the plan as stated in the body of this note and will attest to such by his/her cosignature. ATTENDING NOTE I, Jasiel Ballard MD, have independently examined this patient and performed my own physical exam, as well as reviewed the documentation and edited where necessary. I have discussed in detail with the resident / student the findings and plan of treatment as documented by the resident / student and edited their note. I agree with their findings and treatment plan and have edited their documentation. ARGENTINA ANDERSEN DO Jan 06, 2021 05:00 JASIEL BALLARD MD January 15, 2021 15:42
[2021-01-06] MEDS ORDERED: AMLO1TAB25 PO (05:34)
[2021-01-06] MEDS ORDERED: CARV25TA PO (05:34)
[2021-01-06] MEDS ORDERED: PATIENT COMMENT (05:34)
[2021-01-06] MEDS ORDERED: hydrOXYzine 50 MG TAB PO PRN ×2 (06:00→06:20)
[2021-01-06] MEDS ORDERED: EMLA CREAM 5GM TUBE (LIDOCAINE/PRILOCAINE) TOP PRN ×2 (06:00→06:14)
[2021-01-06] MEDS ORDERED: NYSTATIN 100,000 UNITS/GM TOPICAL PWD 15 GM TOP PRN (07:15)
[2021-01-06] MEDS ORDERED: CARVedilol 12.5 MG TAB PO SCH (09:00)
[2021-01-06] MEDS ORDERED: CARVedilol 3.125 MG TAB PO SCH ×2 (09:00)
[2021-01-06] MEDS ORDERED: GABAPENTIN 300 MG CAP PO SCH (09:00)
[2021-01-06] MEDS ORDERED: MAGNESIUM OXIDE 400MG TAB (MAG-OX) PO SCH (09:00)
[2021-01-06] MEDS ORDERED: SUCRALFATE 1 GM TAB PO SCH ×2 (09:00)
[2021-01-06] MEDS: MAGNESIUM OXIDE 400MG TAB (MAG-OX) PO SCH (09:53)
[2021-01-06] MEDS: FOLIC ACID 1 MG TAB PO SCH (09:53)
[2021-01-06] MEDS: THIAMINE 100 MG TAB PO SCH ×2 (09:53→21:51)
[2021-01-06] MEDS: SUCRALFATE 1 GM TAB PO SCH ×2 (09:53→21:52)
[2021-01-06] MEDS: MULTIVITAMINS/MINERALS THERAP 1 TAB PO SCH (09:53)
[2021-01-06] MEDS: GABAPENTIN 300 MG CAP PO SCH ×3 (09:53→21:51)
[2021-01-06] MEDS: ACETAMINOPHEN TAB 650MG DOSE (2X325MG) PO PRN (09:55)
[2021-01-06] MEDS: HumaLOG INSULIN (NovoLOG) PER UNIT SC SCH ×4 (09:59→21:49)
[2021-01-06] MEDS: HEPARIN SOD (PORCINE) 5000UNITS/ML 1ML VIAL/SYRINGE SC SCH ×3 (10:00→21:48)
[2021-01-06 10:23] LABS: BASO % 0.4 % (0.0-1.0); EOS # 0.1 10^3/uL (0.0-0.5); EOS % 0.8 % (0.0-3.0); HEMATOCRIT 29.1 % (42.0-52.0); LYMPH % 13.6 % (24.0-44.0); MEAN CORPUSCULAR HEMOGLOBIN 32.4 pg (27.0-33.0); MEAN CORPUSCULAR HGB CONC 34.4 g/dl (32.0-36.5); MEAN CORPUSCULAR VOLUME 94.2 fl (80.0-96.0); MONO # 0.6 10^3/uL (0.0-0.8); MONO % 8.5 % (2.0-8.0); NEUTROPHILS # 5.7 10^3/uL (1.5-8.5); NEUTROPHILS % 76.4 % (36.0-66.0); PLATELET COUNT, AUTOMATED 261 10^3/uL (150-450); RED BLOOD COUNT 3.09 10^6/uL (4.30-6.10); WHITE BLOOD COUNT 7.5 10^3/uL (4.0-10.0)
[2021-01-06 10:41] LABS: ALBUMIN 1.2 GM/DL (3.2-5.2); ALT/SGPT 20 U/L (12-78); BILIRUBIN,TOTAL 0.5 MG/DL (0.2-1.0); BLOOD UREA NITROGEN 13 MG/DL (7-18); CALCIUM LEVEL 6.6 MG/DL (8.5-10.1); CARBON DIOXIDE LEVEL 28 MEQ/L (21-32); CHLORIDE LEVEL 110 MEQ/L (98-107); CREATININE FOR GFR 1.92 MG/DL (0.70-1.30); FREE T4 0.82 NG/DL (0.76-1.46); GLUCOSE, FASTING 217 MG/DL (70-100); POTASSIUM SERUM 3.4 MEQ/L (3.5-5.1); SODIUM LEVEL 143 MEQ/L (136-145); TOTAL PROTEIN 4.3 GM/DL (6.4-8.2)
[2021-01-06 10:57] LABS: APPEARANCE, URINE HAZY (CLEAR); BACTERIA, URINE AUTO NEGATIVE (NEGATIVE); BILIRUBIN, URINE AUTO NEGATIVE (NEGATIVE); BLOOD, URINE BLOOD NEGATIVE (NEGATIVE); COLOR, URINE AMBER (YELLOW); GLUCOSE, URINE (UA) AUTO 1+ mg/dL (NEGATIVE); KETONE, URINE AUTO NEGATIVE (NEGATIVE); LEUKOCYTE ESTERASE, URINE AUTO NEGATIVE (NEGATIVE); MUCUS, URINE SMALL (NEGATIVE); NITRITE, URINE AUTO NEGATIVE (NEGATIVE); PROTEIN, URINE AUTO 1+ mg/dL (NEGATIVE); RBC, URINE AUTO 1 /HPF (0-3); SPECIFIC GRAVITY URINE AUTO 1.021 (1.002-1.035); SQUAMOUS EPITHELIAL CELL UR AU 0 /HPF (0-6); UROBILINOGEN, URINE AUTO 0.2 mg/dL (0.0-2.0); WBC, URINE AUTO 2 /HPF (0-3)
[2021-01-06 11:33] LABS: SODIUM,RANDOM URINE 21 MEQ/L; UREA NITROGEN RANDOM URINE 114 MG/DL
[2021-01-06 12:41] LABS: TOTAL PROTEIN,RANDOM URINE 68.7 MG/DL (0.0-12.0)
[2021-01-06 12:54] LABS: VITAMIN B12 LEVEL > 2000 PG/ML
[2021-01-06 12:55] LABS: FOLATE 16.5 NG/ML
[2021-01-06] MEDS: LACTULOSE 20 GM/30 ML SYRUP UD PO SCH ×2 (14:00→21:49)
[2021-01-06 14:31] LABS: AMPHETAMINES LEVEL URINE NEGATIVE (NEGATIVE); BARBITURATES URINE NEGATIVE (NEGATIVE); BENZODIAZEPINES URINE NEGATIVE (NEGATIVE); CANNABINOIDS URINE NEGATIVE (NEGATIVE); COCAINE METABOLITE URINE NEGATIVE (NEGATIVE); METHADONE URINE NEGATIVE (NEGATIVE); OPIATES URINE NEGATIVE (NEGATIVE); PHENCYCLIDINE URINE NEGATIVE (NEGATIVE)
--- NOTE | 2021-01-06 15:23 | REP ---
INDICATION: anasarca w/ darrius. COMPARISON: 10/24/2020. TECHNIQUE: Real-time sonographic evaluation of the kidneys is performed. FINDINGS: Renal cortical echogenicity pattern is normal bilaterally and contours are smooth. There is no hydronephrosis bilaterally. There is a simple cyst 9 mm in diameter medially in the mid left kidney. There is trace perinephric fluid. Mild ascites is present the just above the bladder and in the left upper quadrant. The right kidney measures 10.5 x 5.3 x 5.1 cm. Left renal dimensions are 11.5 x 4.9 x 5.3 cm. Urinary bladder is not well distended, a ureteral jets could not be visualized with Doppler color evaluation. The prostate measures 2.8 x 2.7 x 3.6 cm, total volume 14 cc. IMPRESSION: No hydronephrosis. Subcentimeter cyst left kidney. Incidental note made of mild ascites superior to the bladder and in the left upper quadrant. <Electronically signed by Jose Juan York > 01/06/21 [id number]
[2021-01-06] MEDS: NICOTINE 7 MG/24 HR TRANSDERMAL TD SCH (15:27)
[2021-01-06] MEDS ORDERED: POTASSIUM CHLORIDE 10 MEQ SR TABLET PO ONE (16:20)
[2021-01-06] MEDS: DEXTROSE 50% 50 ML SYRINGE IV PRN (17:08)
--- NOTE | 2021-01-06 18:38 | REP ---
INDICATION: anasarca w/ low albumin in pt who drinks EtOH. COMPARISON: None TECHNIQUE: No history given other than low albumin FINDINGS: The gallbladder is not sonographically visualized. The common bile duct measures 8 mm. The hepatic parenchymal echo pattern is diffusely increased. There is no evidence of a mass. The pancreas was not visualized due to the patient's intestinal gas pattern. The right kidney was sonographically evaluated earlier today. A large pleural effusion was noted. IMPRESSION: Diffuse increased echoes seen throughout the liver and possibly secondary to diffuse fatty infiltration of the liver. The exam is limited. There is no evidence of a mass. Other findings as described above. Accredited by the [employer] in General Ultrasound. <Electronically signed by Yo Gannon > 01/06/21 [id number]
--- NOTE | 2021-01-06 19:05 | IPNPDOC ---
Text Note Date of Service The patient was seen on 01/06/21. NOTE Subjective: Patient seen and examined at bedside. And reports she feels tired, was having breakfast when I went in. Denies having any fever or chills, chest pain, shortness of breath, cough, nausea, vomiting, diarrhea. He reports having incontinence of stool and incontinence of urine. He does have swelling and has back, acral region, upper thighs. He does report to have numbness in his bilateral legs because of polyneuropathy likely from diabetes. He does reports to have mildly pain in the abdomen on palpation especially in the hypogastric region. Objective: Physical exam: Gen. examination: Patient is alert oriented 3, does not appear to be in acute distress. He was laying in bed semireclining position. Cardiac: Regular rate and rhythm, S1-S2 normal, no murmurs appreciated. Respiratory: Patient has no breath sounds on the bilateral lower lobes, clear breath sounds in the upper lobes. Abdomen: Nondistended, soft, mild tenderness on palpation in the lower quadrants more so in the hypogastric region. Normal bowel sounds appreciated. Integument: Patient does have pitting edema 1+ to 2+ in his flanks sacral region and anterior thigh region. He does have some redness in the groin. Likely from his recent cellulitis denies having any itching. Genitourinary: Patient does have a tenderness but range of motion is suprapubic fat pad and has difficulty in passing urine. He reports to have stool incontinence and sees he can't make it to the restroom. Extremities: Patient has mild nonpitting edema in the bilateral lower extremities. Neuro: Patient has a 5 /5 strength in upper and lower extremities except the right lower extremity he does have 4/5, reports it is most likely due to his surgery in that limb. Labs: WBC 7, hemoglobin 10, HCT 29.3, platelet 258. Sodium 143, K3.8, BUN 13, creatinine 2.04, GFR 36.4. Hb A1c 9 [12/05], calcium 6.6, corrected calcium for albumin 8.8, albumin 1.2 Ammonia 44, AST 30, ALT 22, TSH 7.9 elevated, T3 0.82 normal UA : Urine protein 1+, urine creatinine to 94, urine protein 68.7, urinary sodium 21, urinary nitrogen 114. Imaging: A chest x-ray performed on 01/05/2021 was reported to show no acute process. A CT of the head performed without contrast on 01/05/2021 was reported to show no acute intracranial abnormality. A chest x-ray performed post insertion of a triple-lumen catheter in the internal jugular vein was reported to show right IJ central line terminates at the cavoatrial junction. Pleural effusions are better demonstrated on CT. A CT of the abdomen and pelvis performed without contrast on 01/06/2021 was reported to show severe anasarca, right larger than left pleural effusions are incompletely visualized, mild colonic thickening gratis at the distal descending colon/sigmoid colon. Thickening may be secondary to third spacing of fluid, nonspecific colitis not excluded. Assessment: Patient is a 55-year-old male with PMH HTN, NIDDM, chronic back pain, chronic neck pain, alcohol use disorder, GERD, W pedal syndrome, history of pancreatitis, history of Crohn's not on medication, HDL was brought in by EMS after the stenting before and was very weak and couldn't get up and was in that position for 7-8 hours eventually was brought to the ED to be evaluated. In the ED he was found to be grossly anasarca with edema has lower extremities and back. He was admitted for further management. Plan: Anasarca: Likely secondary to decreased oral intake/malnutrition/ loss of oncotic pressure/third spacing. - When his anasarca patient might be having nephrotic syndrome. Will get urine protein to creatinine ratio - When the patient has difficulty urinating and put in a Smiley catheter. - Will get renal ultrasound to rule out any hydronephrosis. Weakness likely secondary to decreased oral intake/low albumin /alcoholism/ vitamin protein deficiencies: - Patient has low albumin, likely loss from the urine/ decrease intake/alcoholism - Will replace albumin 25% x 3. - He was scheduled to get albumin overnight but did not receive it. - Patient is is deconditioned due to his neck and back surgeries and is not doing much of weightbearing movement. - He reports he has a boot for his right leg which doesn't fit might be one of reason for his decreased locomotion and weakness. - Nutritional consult in place. AK I: - Patient's AK I likely because of dehydration or decreased oral intake. - Please avoid nephrotoxic medication. - Patient is on diuretics and lisinopril at home not sure whether he is taking them regularly or not. - Does have issues with his urination might be one of the reason as well. - Will put a Smiley in him, which will prevent the urinary retention. Hypoalbuminemia: - At this point the causes of his low albumin level are unknown. - Likely suspected causes or decreased oral intake, alcoholism, suspected proteinuria. Alcoholism: - Patient has an extensive alcohol history. However he is not positive for ethyl alcohol when he came in. - Patient is on CIWA protocol. - And reports he is trying to cut down on his alcohol use. - Start him on thiamine 100 mg by mouth twice a day and folic acid. - Get vitamin B12 and folate levels. Urinary and stool incontinence: - At this point not sure of the reason why patient is having stools incontinence. - We will get imaging office lumbar and thoracic spine to rule out cauda equina versus conus medullaris. - She denies having any elizabeth anal anesthesia/saddle anesthesia. Hypertension: - Will continue Coreg 12.5 mg twice a day. - Patient was taking 3.125 mg Coreg as well and will hold that dose. - Will continue amlodipine 10 milligrams by mouth daily. - We'll hold torsemide and lisinopril. Genital candidiasis: - Likely from his urinary incontinence and decrease hygiene. - Will give him nystatin cream. NIDDM 2: - Patient is on insulin sliding scale before meals and daily at bedtime. - Hypoglycemic protocol in place. - HbA1c is 9 on 12/05/2020. - Medications need to be optimized outpatient. DVT prophylaxis: - Heparin 5000 units every 8 hours. VS,Fishbone, I+O VS, Fishbone, I+O Laboratory Tests 01/06/21 00:56 01/06/21 01:54 01/06/21 10:13 Vital Signs Date Time Temp Pulse Resp B/P (MAP) Pulse Ox O2 Delivery O2 Flow Rate FiO2 01/06/21 14:58 97.8 78 18 117/77 (90) 95 Room Air GME ATTESTATION GME ATTESTATION My faculty preceptor for this patient encounter was physically present during the encounter and was fully available. All aspects of the patient interview, examination, medical decision making process, and medical care plan development were reviewed and approved by the faculty preceptor. The faculty preceptor is aware and concurs with the plan as stated in the body of this note and will a ttest to such by his/her cosignature. ATTENDING NOTE I, John Paul Camacho MD, have independently examined this patient and performed my own physical exam, as well as reviewed the documentation and edited where necessary. I have discussed in detail with the resident / student the findings and plan of treatment as documented by the resident / student and edited their note. I agree with their findings and treatment plan and have edited their documentation. Saadia Ortega MD Jan 06, 2021 19:05 JOHN APUL CAMACHO MD January 11, 2021 14:55
[2021-01-06] MEDS ORDERED: PRAMIPEXOLE 1 MG TAB PO SCH (21:00)
[2021-01-06] MEDS: CARVedilol 12.5 MG TAB PO SCH (21:00)
[2021-01-06] MEDS ORDERED: rOPINIRole 1MG TAB PO SCH (21:00)
[2021-01-06] MEDS ORDERED: NALTREXONE 50 MG TAB PO SCH (21:00)
[2021-01-06] MEDS: rOPINIRole 1MG TAB PO SCH (21:51)
[2021-01-06] MEDS: NALTREXONE 50 MG TAB PO SCH (21:53)
--- NOTE | 2021-01-06 22:49 | ECGEPIP ---
[facility] - ED Test Date: 2021-01-05 Pat Name: GWEN JOLLEY Department: Room: [place] [address] Gender: Male [employer]: TAMARA : 1965 Requested By: SLY Smith Order Number: [id number] Reading MD: Tashi Smith Measurements Intervals [place] Rate: 82 P: NM: QRS: 23 QRSD: 78 T: 18 QT: 404 QTc: 472 Interpretive Statements SINUS RHYTHM Low voltage QRS POOR R WAVE PROGRESSION SIMILAR TO 10/24/20 Electronically Signed on 01-06-2021 22:49:03 EDT by Tashi Smith
[2021-01-07] VITALS (12 sets, daily range): BP systolic 116–165; BP diastolic 69–95
[2021-01-07] MEDS: SODIUM CHLORIDE 0.9% INJ 10 ML SYR IV SCH ×4 (00:18→21:38)
[2021-01-07] MEDS ORDERED: FUROSEMIDE 40MG/4ML VIAL (J1940) IV ONE ×2 (00:35→12:30)
[2021-01-07] MEDS: SODIUM CHLORIDE 0.9% INJ 10 ML SYR IV PRN ×2 (00:42→17:59)
[2021-01-07] MEDS: LACTULOSE 20 GM/30 ML SYRUP UD PO SCH (06:00)
[2021-01-07] MEDS: HEPARIN SOD (PORCINE) 5000UNITS/ML 1ML VIAL/SYRINGE SC SCH ×3 (06:02→21:38)
[2021-01-07 06:22] LABS: HEMATOCRIT 23.3 % (42.0-52.0); MEAN CORPUSCULAR HEMOGLOBIN 32.6 pg (27.0-33.0); MEAN CORPUSCULAR HGB CONC 33.9 g/dl (32.0-36.5); MEAN CORPUSCULAR VOLUME 96.3 fl (80.0-96.0); RED BLOOD COUNT 2.42 10^6/uL (4.30-6.10); WHITE BLOOD COUNT 5.7 10^3/uL (4.0-10.0)
[2021-01-07 06:24] LABS: HEMOGLOBIN 7.9 g/dl (13.5-17.5); PLATELET COUNT, AUTOMATED 158 10^3/uL (150-450)
[2021-01-07 06:46] LABS: ALBUMIN 1.5 GM/DL (3.2-5.2); ALT/SGPT 17 U/L (12-78); BILIRUBIN,TOTAL 0.5 MG/DL (0.2-1.0); BLOOD UREA NITROGEN 13 MG/DL (7-18); CALCIUM LEVEL 6.4 MG/DL (8.5-10.1); CARBON DIOXIDE LEVEL 27 MEQ/L (21-32); CHLORIDE LEVEL 112 MEQ/L (98-107); CREATININE FOR GFR 1.77 MG/DL (0.70-1.30); GLOMERULAR FILTRATION RATE 42.9 (>56); GLUCOSE, FASTING 81 MG/DL (70-100); MAGNESIUM LEVEL 1.2 MG/DL (1.8-2.4); POTASSIUM SERUM 3.1 MEQ/L (3.5-5.1); SODIUM LEVEL 144 MEQ/L (136-145)
[2021-01-07] MEDS: HumaLOG INSULIN (NovoLOG) PER UNIT SC SCH ×4 (07:30→21:00)
[2021-01-07] MEDS ORDERED: MAG SULF 1GM/100ML (MAG RUN) 1 GM in IV 1 EA IV ONE (08:00)
--- NOTE | 2021-01-07 09:40 | REPVR ---
PROCEDURE INFORMATION: Exam: CT Thoracic Spine Without Contrast Exam date and time: 01/06/2021 12:58 PM Age: 55 years old Clinical indication: Weakness; Additional info: Weakness, deconditioning, bow TECHNIQUE: Imaging protocol: Computed tomography images of the thoracic spine without contrast. Radiation optimization: All CT scans at this facility use at least one of these dose optimization techniques: automated exposure control; mA and/or kV adjustment per patient size (includes targeted exams where dose is matched to clinical indication); or iterative reconstruction. COMPARISON: No relevant prior studies available. FINDINGS: Tubes, catheters and devices: Right internal jugular central venous catheter. Vertebrae: Anterior cervical spinal fusion at C6-C7. Levoscoliosis of the thoracic spine. Discs/Spinal canal/Neural foramina: Multilevel degenerative disease.. No severe spinal canal stenosis. No significant neural foraminal narrowing. Other bones/joints: Subacute to chronic fracture deformities right anterior 2nd through 4th ribs. Soft tissues: Unremarkable. Esophagus: Circumferential thickening of the distal esophagus. Lungs: Large bilateral pleural effusions with adjacent compressive atelectasis. Heart: Atherosclerotic disease of coronary arteries. IMPRESSION: No acute fractures. Large bilateral pleural effusions with adjacent compressive atelectasis. Circumferential thickening of the distal esophagus. Subacute to chronic fracture deformities right anterior 2nd through 4th ribs. Electronically signed by: Francisco Dias On 01/07/2021 09:40:19 AM
--- NOTE | 2021-01-07 09:44 | REPVR ---
PROCEDURE INFORMATION: Exam: CT Lumbar Spine Without Contrast Exam date and time: 01/06/2021 12:58 PM Age: 55 years old Clinical indication: Weakness; Additional info: Weakness, deconditioning, bow TECHNIQUE: Imaging protocol: Computed tomography images of the lumbar spine without contrast. Radiation optimization: All CT scans at this facility use at least one of these dose optimization techniques: automated exposure control; mA and/or kV adjustment per patient size (includes targeted exams where dose is matched to clinical indication); or iterative reconstruction. COMPARISON: MRI-Spine, L.S. without con 03/16/2018 3:35 PM FINDINGS: Tubes, catheters and devices: Inferior vena cava filter in place. Vertebrae: Scoliosis. Discs/Spinal canal/Neural foramina: Multilevel degenerative disease. Facet arthropathy the lower lumbar spine. Gallbladder and bile ducts: Status post cholecystectomy. Stomach and bowel: Status post Rex-en-Y gastric bypass. Intraperitoneal space: Anasarca and small ascites. Vasculature: Atherosclerotic disease of the abdominal aorta. Soft tissues: Unremarkable. IMPRESSION: No acute fractures. Anasarca and ascites. Electronically signed by: Francisco Dias On 01/07/2021 09:44:02 AM
[2021-01-07] MEDS: POTASSIUM CHLORIDE 10 MEQ SR TABLET PO ONE ×2 (10:34→10:51)
[2021-01-07] MEDS: NICOTINE 7 MG/24 HR TRANSDERMAL TD SCH (10:34)
[2021-01-07] MEDS: FOLIC ACID 1 MG TAB PO SCH (10:34)
[2021-01-07] MEDS: THIAMINE 100 MG TAB PO SCH ×2 (10:34→21:38)
[2021-01-07] MEDS: GABAPENTIN 300 MG CAP PO SCH ×3 (10:34→21:38)
[2021-01-07] MEDS: MULTIVITAMINS/MINERALS THERAP 1 TAB PO SCH (10:34)
[2021-01-07] MEDS: MAGNESIUM OXIDE 400MG TAB (MAG-OX) PO SCH (10:35)
[2021-01-07] MEDS: SUCRALFATE 1 GM TAB PO SCH ×2 (10:37→21:37)
[2021-01-07] MEDS: CARVedilol 12.5 MG TAB PO SCH ×2 (10:37→21:37)
[2021-01-07] MEDS ORDERED: ONDANSETRON 4MG/2ML VIAL IV PRN (10:55)
[2021-01-07 12:08] LABS: CHOLESTEROL LEVEL < 50 MG/DL (<200); CHOLESTEROL RISK RATIO 5.555 (<5); HDL CHOLESTEROL 9 MG/DL (>40); LDL CHOLESTEROL 27 MG/DL (<100); NON-HDL-C 41 MG/DL; PREALBUMIN 4.7 MG/DL (20.0-40.0); TRIGLYCERIDES LEVEL 71 MG/DL (<150)
--- NOTE | 2021-01-07 14:40 | REP ---
INDICATION: to r/o occult malignancy COMPARISON: None TECHNIQUE: Standard helical technique without the administration of intravenous contrast which limits exam. FINDINGS: There is no gross mediastinal adenopathy, however, hilar adenopathy cannot be ruled out since intravenous contrast was withheld. There large bilateral pleural effusions. There is no evidence of a pericardial effusion. Limited evaluation of the imaged upper abdomen is further limited by motion artifact. I see no evidence of a gross abnormality. Evaluation of the osseous structures shows no evidence of a lytic or blastic osseous lesion. Evaluation of the lung gillis shows scattered asymmetric in ground-glass opacities intensities particularly in the lower dependent lung gillis and likely secondary to compressive atelectatic change from the effusions. I cannot rule out a lower lung field mass particularly left lower lobe for the suspected atelectatic changes is either rounded in appearance or the density represents a mass. IMPRESSION: 1. Bilateral pleural effusions. Malignant effusion cannot be ruled out. 2. Lung gillis as described above. 3. Other findings and limitations as described above. <Electronically signed by Yo Gannon > 01/07/21 [id number]
[2021-01-07 16:24] LABS: BASO % 0.2 % (0.0-1.0); EOS % 0.8 % (0.0-3.0); HEMATOCRIT 24.5 % (42.0-52.0); HEMOGLOBIN 8.4 g/dl (13.5-17.5); LYMPH # 0.9 10^3/uL (1.5-5.0); LYMPH % 17.6 % (24.0-44.0); MEAN CORPUSCULAR HEMOGLOBIN 32.6 pg (27.0-33.0); MEAN CORPUSCULAR HGB CONC 34.3 g/dl (32.0-36.5); MONO # 0.4 10^3/uL (0.0-0.8); MONO % 8.5 % (2.0-8.0); NEUTROPHILS # 3.5 10^3/uL (1.5-8.5); NEUTROPHILS % 72.7 % (36.0-66.0); PLATELET COUNT, AUTOMATED 170 10^3/uL (150-450); RED BLOOD COUNT 2.58 10^6/uL (4.30-6.10); WHITE BLOOD COUNT 4.8 10^3/uL (4.0-10.0)
[2021-01-07 16:37] LABS: INR 1.54; PROTHROMBIN TIME 18.8 SECONDS (12.5-14.3)
[2021-01-07 17:31] LABS: CA19-9 TUMOR MARKER,CARBOHYDRA 13.2 U/ML (<35.0)
--- NOTE | 2021-01-07 19:26 | IPNPDOC ---
Text Note Date of Service The patient was seen on 01/07/21. NOTE Subjective: In seen and examined at bedside. Patient reports he feels very tired and fatigued. He even reports having some nausea this morning. He reports having 3 loose stools incontinence, but he reports that he is aware that he is passing the stool but just can't make it to the restroom. He denies having any fever or chills, chest pain, shortness of breath, cough. Patient reports having abdominal pain in the bilateral lower quadrant. Objective: Physical exam: General appearance: Patient is alert and oriented 3, not in acute distress. Patient was laying in bed. He appears to be tired. Cardiac: Regular rate and rhythm, S1 normal S2 normal, normal murmurs, rubs appreciated. Respiratory: Could not appreciate that breath sounds in the bilateral lower lobes, clear breath sounds in the upper lobes, did not notice any wheezes or rhonchi. Abdomen: Nondistended, soft, tenderness in the lower quadrants bilaterally, positive bowel sounds appreciated. Integument: Patient has pitting edema 1-2+ in the flanks, sacral region and thighs similar to yesterday. He still has redness in his groin region. Genitourinary: Patient has Smiley catheter in place as he is having difficulty to pass urine. He still has stool incontinence. Extremities: Patient has pitting edema 1+ noted in bilateral lower extremities extending up to his knee. Labs: WBC 5.7, hemoglobin 7.9 [dropped from 10], HCT 23.3, platelet 158. Sodium 144, K3.1[replaced 20 mEq due to increased creatinine], magnesium 1.2 replaced with mag run. BUN 13, creatinine 1.7, calcium 6.4 [corrected to albumin 8.4], albumin 1.5. UA: urine protein 1+, urine creatinine 294, total protein 68.7, urine random sodium 21, urine random urea 114. Urinary protein is to creatinine ratio 2 34 mg/g, 24-hour protein is equal to 0 .2 g per day [unlikely nephrotic syndrome] Patient's fractional excretion of urea is 5.7%(prerenal) Imaging: A chest x-ray performed on 01/05/2021 was reported to show no acute process. A CT of the head performed without contrast on 01/05/2021 was reported to show no acute intracranial abnormality. A chest x-ray performed post insertion of a triple-lumen catheter in the internal jugular vein was reported to show right IJ central line terminates at the cavoatrial junction. Pleural effusions are better demonstrated on CT. A CT of the abdomen and pelvis performed without contrast on 01/06/2021 was reported to show severe anasarca, right larger than left pleural effusions are incompletely visualized, mild colonic thickening gratis at the distal descending colon/sigmoid colon. Thickening may be secondary to third spacing of fluid, nonspecific colitis not excluded. Renal ultrasound done on 01/06/2021: Reported :No hydronephrosis. Subcentimeter cyst left kidney. Incidental note made of mild ascites superior to the bladder and in the left upper quadrant. Liver ultrasound done on 01/06/2021: Reported as:Diffuse increased echoes seen throughout the liver and possibly secondary to diffuse fatty infiltration of the liver. The exam is limited. There is no evidence of a mass. Lumbar CT done on 01/06/2021: Reported as:No acute fractures. Anasarca and ascites. Thoracic CT done on 01/06/2021: Reported as: No acute fractures. Large bilateral pleural effusions with adjacent compressive atelectasis. Circumferential thickening of the distal esophagus. Subacute to chronic fracture deformities right anterior 2nd through 4th ribs. CT chest without contrast: Done on 01/07/2021: Reported as:. Bilateral pleural effusions. Malignant effusion cannot be ruled out. 2. Lung gillis as de scribed aboveEvaluation of the lung gillis shows scattered asymmetric in ground- glass opacities intensities particularly in the lower dependent lung gillis and likely secondary to compressive atelectatic change from the effusions. I cannot rule out a lower lung field mass particularly left lower lobe for the suspected atelectatic changes is either rounded in appearance or the density represents a mass Assessment: Patient is a 55-year-old male with PMH HTN, NIDDM, chronic back pain, chronic neck pain, alcohol use disorder, GERD, WPW syndrome, history of pancreatitis, history of Crohn's not on medication, HDL was brought in by EMS after the stenting before and was very weak and couldn't get up and was in that position for 7-8 hours eventually was brought to the ED to be evaluated. In the ED he was found to be grossly anasarca with edema has lower extremities and back. He was admitted for further management. Plan: Anasarca: Likely secondary to decreased oral intake/malnutrition/loss of oncotic pressure/third spacing: - Given the patient's 24-hour urine protein is 0.2 g per day it is unlikely nephrotic syndrome. - Patient's prealbumin was checked which is very low 4.1 [prealbumin give us a better index for protein energy malnutrition] - And does not have cirrhosis given that his platelet count is good and AST ALT does not point towards cirrhosis. - Unlikely the right heart failure causing hives right heart pressures or edema given that patient had an echocardiogram recently which showed normal pressures. - Given the patient is alcoholic likely it might be due to the nutritional deficiency. - we think it Can be due to occult malignancy[will get an CT scan and chest to rule out any lung malignancy, tumor marker for AFB, CVA, CA-19-9 antigen has also been ordered] - we think it Can be due to any autoimmune diseases serositis which can cause leakage of protein and third spacing.[Although autoimmune workup has been ordered for a Retin-A, double-stranded DNA, anti-Acevedo, anti-to anti-Ro, anti- centromere, antihistone, anticardiolipin, anti-CCP] Weakness 2/2 decreased oral intake/low albumin/alcoholism: - Patient and has low albumin, unlikely from loss of the urine given that his 24-hour urine is 0.2 g per day. - Will replace albumin 24% into 3 today as well followed by 40 mg IV Lasix once. - Patient is deconditioned due to his neck and back surgeries and is not doing much of weightbearing movement. - He reports he has a boot for his right leg which doesn't fit might be one of reason for his decreased locomotion and weakness. - Nutritional consult in place. Hypoalbuminemia: - Will transfuse albumin 25% X 3, followed by Lasix 40 mg IV once. - Patient's prealbumin is 4.1 very low from the normal range. - we think Likely because of decreased oral intake/serositis autoimmune/malignancy. Alcoholism: - Patient has an extensive alcohol history. However he is not positive for ethyl alcohol when he came in. - Patient is on CIWA protocol. - And reports he is trying to cut down on his alcohol use. - Start him on thiamine 100 mg by mouth twice a day and folic acid. - Get vitamin B12 and folate levels. Urinary and stool incontinence: - At this point not sure of the reason why patient is having stools incontinence. - Thoracic and lumbar CT were done and does not report any cauda equina/conus medullaris. - She denies having any elizabeth anal anesthesia/saddle anesthesia. Hypertension: - Will continue Coreg 12.5 mg twice a day. - Patient was taking 3.125 mg Coreg as well and will hold that dose. - Will continue amlodipine 10 milligrams by mouth daily. - We'll hold torsemide and lisinopril. Genital candidiasis: - Likely from his urinary incontinence and decrease hygiene. - Will give him nystatin cream. NIDDM 2: - Patient is on insulin sliding scale before meals and daily at bedtime. - Hypoglycemic protocol in place. - HbA1c is 9 on 12/05/2020. - Medications need to be optimized outpatient. Restless leg syndrome: - Will continue ropinirole Chronic back pain: - Continue gabapentin. DVT prophylaxis: - Heparin 5000 units every 8 hours. VS,Fishbone, I+O VS, Fishbone, I+O Laboratory Tests 01/07/21 06:09 01/07/21 16:00 Vital Signs Date Time Temp Pulse Resp B/P (MAP) Pulse Ox O2 Delivery O2 Flow Rate FiO2 01/07/21 14:00 97.5 83 19 120/70 (87) 95 Room Air I&O- Last 24 Hours up to 6 AM 01/07/21 06:00 Intake Total 620.0 ml Output Total 845 ml Balance -225.0 ml GME ATTESTATION GME ATTESTATION My faculty preceptor for this patient encounter was physically present during the encounter and was fully available. All aspects of the patient interview, examination, medical decision making process, and medical care plan development were reviewed and approved by the faculty preceptor. The faculty preceptor is aware and concurs with the plan as stated in the body of this note and will attest to such by his/her cosignature. ATTENDING NOTE I, John Paul Dumas MD, have independently examined this patient and performed my own physical exam, as well as reviewed the documentation and edited where nec essary. I have discussed in detail with the resident / student the findings and plan of treatment as documented by the resident / student and edited their note. I agree with their findings and treatment plan and have edited their documentation. Saadia Ortega MD Jan 07, 2021 19:26 JOHN PAUL DUMAS MD January 11, 2021 14:59
[2021-01-07 20:54] LABS: CALCIUM LEVEL 6.7 MG/DL (8.5-10.1); CREATININE FOR GFR 1.77 MG/DL (0.70-1.30); GLOMERULAR FILTRATION RATE 42.9 (>56); MAGNESIUM LEVEL 1.3 MG/DL (1.8-2.4); POTASSIUM SERUM 3.4 MEQ/L (3.5-5.1)
[2021-01-07] MEDS: rOPINIRole 1MG TAB PO SCH (21:37)
[2021-01-07] MEDS: NALTREXONE 50 MG TAB PO SCH (21:37)
[2021-01-08 00:16] VITALS: BP 133/78
[2021-01-08] MEDS: SODIUM CHLORIDE 0.9% INJ 10 ML SYR IV PRN (00:20)
[2021-01-08 02:00] VITALS: BP 128/75
[2021-01-08] MEDS: SODIUM CHLORIDE 0.9% INJ 10 ML SYR IV SCH ×3 (05:50→21:50)
[2021-01-08] MEDS: HEPARIN SOD (PORCINE) 5000UNITS/ML 1ML VIAL/SYRINGE SC SCH ×3 (05:50→21:46)
[2021-01-08 06:00] VITALS: BP 135/70
[2021-01-08] MEDS: HumaLOG INSULIN (NovoLOG) PER UNIT SC SCH ×4 (07:30→21:45)
[2021-01-08] MEDS ORDERED: MAG SULF 1GM/100ML (MAG RUN) 1 GM in IV 1 EA IV ONE ×2 (08:00→12:00)
[2021-01-08] MEDS ORDERED: POTASSIUM CHLORIDE 10 MEQ SR TABLET PO ONE ×2 (08:00→12:00)
[2021-01-08 08:57] LABS: BASO % 0.2 % (0.0-1.0); EOS % 0.7 % (0.0-3.0); HEMATOCRIT 23.7 % (42.0-52.0); HEMOGLOBIN 8.1 g/dl (13.5-17.5); LYMPH # 0.8 10^3/uL (1.5-5.0); MEAN CORPUSCULAR HEMOGLOBIN 32.4 pg (27.0-33.0); MEAN CORPUSCULAR HGB CONC 34.2 g/dl (32.0-36.5); MEAN CORPUSCULAR VOLUME 94.8 fl (80.0-96.0); MONO # 0.3 10^3/uL (0.0-0.8); MONO % 6.8 % (2.0-8.0); NEUTROPHILS # 3.2 10^3/uL (1.5-8.5); NEUTROPHILS % 73.1 % (36.0-66.0); PLATELET COUNT, AUTOMATED 166 10^3/uL (150-450); WHITE BLOOD COUNT 4.4 10^3/uL (4.0-10.0)
[2021-01-08] MEDS: SUCRALFATE 1 GM TAB PO SCH ×2 (09:00→21:48)
[2021-01-08] MEDS: MULTIVITAMINS/MINERALS THERAP 1 TAB PO SCH (09:00)
[2021-01-08 09:23] LABS: ALBUMIN 1.6 GM/DL (3.2-5.2); BILIRUBIN,TOTAL 0.6 MG/DL (0.2-1.0); CALCIUM LEVEL 6.5 MG/DL (8.5-10.1); CREATININE FOR GFR 1.75 MG/DL (0.70-1.30); GLOMERULAR FILTRATION RATE 43.5 (>56); POTASSIUM SERUM 3.5 MEQ/L (3.5-5.1); TOTAL PROTEIN 4.1 GM/DL (6.4-8.2)
[2021-01-08 10:00] VITALS: BP 135/72
[2021-01-08] MEDS: NICOTINE 7 MG/24 HR TRANSDERMAL TD SCH (11:06)
[2021-01-08] MEDS: CARVedilol 12.5 MG TAB PO SCH ×2 (11:14→21:49)
[2021-01-08] MEDS: MAGNESIUM OXIDE 400MG TAB (MAG-OX) PO SCH (11:14)
[2021-01-08] MEDS: FOLIC ACID 1 MG TAB PO SCH (11:15)
[2021-01-08] MEDS: THIAMINE 100 MG TAB PO SCH ×2 (11:16→21:48)
[2021-01-08] MEDS: GABAPENTIN 300 MG CAP PO SCH ×3 (11:16→21:48)
[2021-01-08] MEDS ORDERED: NS 500 ML IV ONE (11:35)
[2021-01-08] MEDS ORDERED: NS 500 ML IV SCH (11:35)
--- NOTE | 2021-01-08 15:21 | IPNPDOC ---
Text Note Date of Service The patient was seen on 01/08/21. NOTE Patient was seen and examined this morning. No overnight events. States that he feels a little better and seems like that his edema is going down. Physical exam: General appearance: Patient is alert and oriented 3, not in acute distress. Patient was laying in bed. He appears to be tired. Cardiac: Regular rate and rhythm, S1 normal S2 normal, normal murmurs, rubs appreciated. Respiratory: Could not appreciate that breath sounds in the bilateral lower lobes, clear breath sounds in the upper lobes, did not notice any wheezes or rhonchi. Abdomen: Nondistended, soft, tenderness in the lower quadrants bilaterally, positive bowel sounds appreciated. Integument: Patient has pitting edema 1-2+ in the flanks, sacral region and thighs similar to yesterday. Genitourinary: Patient has Smiley catheter in place as he is having difficulty to pass urine. He still has stool incontinence. Extremities: Patient has pitting edema 1+ noted in bilateral lower extremities extending up to his knee. Labs reviewed Radiology as below A chest x-ray performed on 01/05/2021 was reported to show no acute process. A CT of the head performed without contrast on 01/05/2021 was reported to show no acute intracranial abnormality. A chest x-ray performed post insertion of a triple-lumen catheter in the internal jugular vein was reported to show right IJ central line terminates at the cavoatrial junction. Pleural effusions are better demonstrated on CT. A CT of the abdomen and pelvis performed without contrast on 01/06/2021 was reported to show severe anasarca, right larger than left pleural effusions are incompletely visualized, mild colonic thickening gratis at the distal descending colon/sigmoid colon. Thickening may be secondary to third spacing of fluid, nonspecific colitis not excluded. Renal ultrasound done on 01/06/2021: Reported :No hydronephrosis. Subcentimeter cyst left kidney. Incidental note made of mild ascites superior to the bladder and in the left upper quadrant. Liver ultrasound done on 01/06/2021: Reported as:Diffuse increased echoes seen throughout the liver and possibly secondary to diffuse fatty infiltration of the liver. The exam is limited. There is no evidence of a mass. Lumbar CT done on 01/06/2021: Reported as:No acute fractures. Anasarca and ascites. Thoracic CT done on 01/06/2021: Reported as: No acute fractures. Large bilateral pleural effusions with adjacent compressive atelectasis. Circumferential thickening of the distal esophagus. Subacute to chronic fracture deformities right anterior 2nd through 4th ribs. CT chest without contrast: Done on 01/07/2021: Reported as:. Bilateral pleural effusions. Malignant effusion cannot be ruled out. 2. Lung gillis as described aboveEvaluation of the lung gillis shows scattered asymmetric in ground-glass opacities intensities particularly in the lower dependent lung gillis and likely secondary to compressive atelectatic change from the effusions. I cannot rule out a lower chrissie ng field mass particularly left lower lobe for the suspected atelectatic changes is either rounded in appearance or the density represents a mass Assessment and plan Patient is a 55-year-old male with PMH HTN, NIDDM, chronic back pain, chronic neck pain, alcohol use disorder, GERD, W pedal syndrome, history of pancreatitis, history of Crohn's not on medication, HDL was brought in by EMS as he was very weak and couldn't get up and was in that position for 7-8 hours eventually was brought to the ED to be evaluated. In the ED he was found to be grossly anasarca with edema has lower extremities and back. He was admitted for further management. For this. Anasarca. The evaluation revealed that his echo was normal with no cor pulmonale or low EF, his protein creatinine ratio ruled out any nephrotic syndrome, he does not have any signs of cirrhosis on examination on radiology with normal AST ALT, platelet count and INR. The decision was made that this anasarca is either related to severe protein energy malnutrition, serositis, secondary to autoimmune disease as he already has a history of Crohn's disease, or possible occult malignancy. He is currently being evaluated for these three differentials. 1. Anasarca.: Likely secondary to decreased oral intake/malnutrition/loss of oncotic pressure/third spacing, or serositis secondary to any autoimmune disease versus occult malignancy. He has had mild pericardial effusion, which was seen on the CAT scan. He has bilateral large pleural effusions and ascites with anasarca-like picture. Nephrotic syndrome was ruled out. Because of his low protein creatinine ratio of 0.2 g. His prealbumin and albumin is extremely low pointing towards protein energy malnutrition. Also to rule out autoimmune disease. All the autoimmune workup has been initiated. We also were trying to rule out local malignancy and and CAT scans were done, but without contrast as he is having AK I and the contrast could not be administered. The CAT scans have not revealed anything acute. Though the CAT scan of the chest mentioned that the mass cannot be ruled out because he has severe atelectasis. The CAT scan was reviewed again with the radiologist as well as fur blower operator, and both of them feel that the patient does have any lung malignancy at this time. Also in one of the CAT scans of the thoracic spine. This was found that there is mild thickening of the distal esophagus. Given his history of Crohn's, which puts him at high risk of malignancy along with a very uncommon presentation. Tumor markers were done which were negative except for CEA. For anasarca. He has been given albumin with Lasix and his edema has slightly improved. Input output has been monitored, but the patient has not been making a lot of urine. For that reason the patient was given albumin with IV fluids today. We will continue to monitor his renal function. Also we have to find out the underlying cause of this anasarca to treat his medical condition. 2. Weakness 2/2 decreased oral intake/low albumin/alcoholism: He looks very deconditioned and he has been seen by PT, OT, nutrition consult also has been placed and he has started on thiamine, folic acid, along with Glucerna high protein shakes. 3. Protein energy malnutrition/Hypoalbuminemia: He has gotten 25% albumin in to 6 times so far with Lasix. He has been severely malnourished. Workup has been initiated. 4. Alcoholism: Vitamin B12, folic acid and thiamine, Zantac restarted. He has been put on ciwa protocol. 5. Urinary and stool incontinence: Likely secondary to severe deconditioning. Thoracic and lumbar spine CT is also have been normal and did not show any spinal cord issues. Continue Smiley. She denies having any elizabeth anal anesthesia/saddle anesthesia. 6. Hypertension: Will continue Coreg 12.5 mg twice a day. We'll hold torsemide and lisinopril. 7. AK I . The patient has a baseline ferritin of around 1. . His creatinine has stabilized over the last 48 hours, but he has not been making a lot of urine. For that reason, he will be given some IV fluids today. He has a Smiley in place and postobstructive AK I has been ruled out. Continue holding any nephrotoxic drugs. Continue input output monitoring. Renal sonogram as per above. 8. Genital candidiasis: Likely from his urinary incontinence and decrease hygiene.continue nystatin cream. 9. NIDDM 2: Patient has an A1c of 79 on this admission has been started on sliding scale insulin and Lantus at bedtime. DVT prophylaxis: Heparin 5000 units every 8 hours. Disposition. Unknown at this time. PT, OT also has been following this patient probably the patient will require acute versus subacute rehabilitation once medically optimized. VS,Fishbone, I+O VS, Fishbone, I+O Laboratory Tests 01/07/21 16:00 01/07/21 20:13 01/08/21 08:39 Vital Signs Date Time Temp Pulse Resp B/P (MAP) Pulse Ox O2 Delivery O2 Flow Rate FiO2 01/08/21 11:14 81 134/78 01/08/21 10:00 97.1 17 94 Room Air I&O- Last 24 Hours up to 6 AM 01/08/21 06:00 Intake Total 420.0 ml Output Total 525 ml Balance -105.0 ml JOHN PAUL CAMACHO MD Jan 08, 2021 15:21
[2021-01-08 17:33] LABS: CLOSTRIDIUM DIFFICILE PCR POSITIVE (NEGATIVE)
[2021-01-08 18:00] VITALS: BP 138/74
[2021-01-08] MEDS: rOPINIRole 1MG TAB PO SCH (21:47)
[2021-01-08] MEDS: NALTREXONE 50 MG TAB PO SCH (21:49)
[2021-01-08] MEDS: VANCOMYCIN ORAL SOL 250MG/5ML ORAL SYRINGE PO SCH (21:50)
[2021-01-08 22:00] VITALS: BP 153/83
--- NOTE | 2021-01-08 22:11 | CR.PDOC ---
General Date of Consultation: Jan 08, 2021 Referring Provider: BARRON GARCIA D.O. Attending Physician: MARY KATE DUQUE MD Consultation REASON FOR CONSULTATION/CHIEF COMPLAINT: [High suspicion for malignancy]. HISTORY OF PRESENT ILLNESS: [I had the pleasure of seeing Mr. Daryl Fraire in consultation for high suspicion for malignancy. As you know Mr. Fraire is a 55-year-old white gentleman who has multiple comorbidities including NIDDM, hypertension and Crohn's disease. He has been very noncompliant to medications and has not been following his primary health care provider: Regular basis. He w as admitted because of increasing swelling and anasarca of the body and unable to continue to live independently. He was admitted on October because of increasing weakness and he fell down and came to emergency room through her taxicab. He is found to have massive anasarca and pleural effusion with ascites. In the past she was diagnosed to have Crohn's disease at [facility] but never received any treatment for Crohn's disease as he has been noncompliant. He continues to have hematochezia. He had his colonoscopy about 4 or 5 years ago and no cancer was found at that time. On 01/08/2020. He underwent CT of the chest which revealed bilateral pleural effusion and there was a suspicion of left lower lung mass versus atelectasis due to pleural effusion. CT of the thoracic spine revealed large bilateral pleural effusion and circumferential thickening of the distal esophagus. There was subacute fracture deformity of right anterior second through fourth ribs likely due to falls. Patient has been investigated with blood work for tumor markers including CEA which was 11.5. CA 199 was 13.2. Alpha-fetoprotein was less than 1.3. C- reactive protein is found to be high. ALLERGIES: Please see below. HOME MEDICATIONS: Please see below. PAST MEDICAL HISTORY: . 1. Hypertension 2. Type 2 diabetes 3. Chronic neck pain 4. Chronic back pain 5. Iron deficiency 6. B12 deficiency 7. GERD 8. Ayxqo-Astrhnsiu-Iutra syndrome 9. Diverticulitis 10. History of pancreatitis 11. History of Crohns disease 12. Severe sensorimotor polyneuropathy 13. History of alcoholism 14. Dyslipidemia PAST SURGICAL HISTORY: 1. Right knee surgery 2. Bilateral inguinal umbilical hernia repair 3. Vasectomy 4. Gastric bypass 5. Right ankle surgery 6. Right hip surgery 7. Right little finger surgery 8. Right shoulder surgery 9. Cervical discectomy with disc replacement 10. Carpal tunnel FAMILY HISTORY: Family history significant for coronary artery disease and father at the age of 65 due to acute [place]. Mother of breast carcinoma. This is also significant for MS SOCIAL HISTORY: Patient was twice and 1 second left him. He lives alone. He has 4 grown up sons who live in various states. Illicit drug use: IV drug use: Other relevant social factors: REVIEW OF SYSTEMS: General: Patient denies fevers HEENT: Patient denies headaches Cardiovascular: Denies chest pain palpitation PND or orthopnea. Respiratory: Patient denies shortness of breath, cough GI: Patient denies abdominal pain, nausea, vomiting, diarrhea, incontinence of stool : Some difficulty in urination Extremities: Bilateral leg swellings Neurological: Patient reports numbness in bilateral legs which is chronic. Skin: Patient reports many wounds on his skin Hematologic: Has some rectal bleeding off and on due to Crohn's disease Lymphatic: Patient denies any lumps lumps or bumps in neck, axilla, or groin PHYSICAL EXAMINATION: VITAL SIGNS: Please see below. GENERAL APPEARANCE: [Very sick looking gentleman in no acute distress]. HEENT: Normocephalic, atraumatic, moist mucous membranes. Neck: No lymphadenopathy or thyromegaly Cardiac: Regular rate and rhythm, no murmurs, normal S1, normal S2 Pulm: Patient was lying down throughout the respiratory exam. Diminished air entry but no crackles Abd: Nondistended, mildly tender to palpation of the lower quadrants , normal bowel sounds Ext: Tense edema in the bilateral lower extremities. Neuro patient reported equal sensation to light touch in his lower extremities bilaterally. Patient was able to discern which toes touching with eyes closed. CARDIOVASCULAR: [RRR normal S1 and S2]. ABDOMEN: [Soft mildly tender on the left hypochondrial area. EXTREMITIES: [Swelling of the legs at less than before]. NEUROLOGICAL: [No gross sensory or motor deficit]. PSYCHIATRIC: [Looks depressed]. LABORATORY DATA: Please see below. ASSESSMENT/PLAN: [Patient has multiple comorbidities including Crohn's disease which has never been treated and has history of colonoscopy 5 years ago. Patient CEA level is high and in view of rectal bleeding patient needs further investigations. CT of the chest also reveals thickening at the GE junction. It might be due to previous history of stomach bypass surgery yet malignancy needs to be ruled out. He needs to have EGD and colonoscopy to rule out any GI malignancy. CT of the chest is suspicious for possibility of mass on the left lung although it might be atelectatic lung tissue. Ideally a bronchoscopy and respiratory consultation should be called to rule out lung cancer. He has been a smoker for many years and despite that his CT scan was normal in the past, does not rule out a new malignancy on the lung. Marker study has been normal except CEA which is either due to ascites/ pleural effusion or due to malignancy. CA 199 is normal and it is very less likely that patient has pancreatic cancer. He has been very noncompliant and seems to be very depressed because of his home situation. He l jacob alone although he has 4 grown up sons and in depression he is not taking care of himself. He needs to be seen by a psychiatrist to treat his depression so that he can be compliant to his treatment. Patient unlikely to have multiple myeloma since he does not have high globulin levels. His Crohn's disease needs to be treated which is likely cause of his malabsoption and anasarca. Vital Signs/I&O Vital Signs Date Time Temp Pulse Resp B/P (MAP) Pulse Ox O2 Delivery O2 Flow Rate FiO2 01/08/21 18:00 97.9 80 18 138/74 (95) 95 Room Air I&O- Last 24 Hours up to 6 AM 01/08/21 06:00 Intake Total 420.0 ml Output Total 525 ml Balance -105.0 ml Laboratory Data Labs 24H Laboratory Tests 2 01/08/21 07:11: Bedside Glucose (Misc Panel) 159H 01/08/21 08:39: Immature Granulocyte % (Auto) 0.2, Neutrophils (%) (Auto) 73.1H, Lymphocytes (%) (Auto) 19.0L, Monocytes (%) (Auto) 6.8, Eosinophils (%) (Auto) 0.7, Basophils (%) (Auto) 0.2, Neutrophils # (Auto) 3.2, Lymphocytes # (Auto) 0.8L, Monocytes # (Auto) 0.3, Eosinophils # (Auto) 0.0, Basophils # (Auto) 0.0, Nucleated Red Blood Cells % (auto) 0.0, Anion Gap 10, Glomerular Filtration Rate 43.5L, Calcium Level 6.5L, Total Bilirubin 0.6, Aspartate Amino Transf (AST/SGOT) 16, Alanine Aminotransferase (ALT/SGPT) 14, Alkaline Phosphatase 124H, Total Protein 4.1L, Albumin 1.6L, Albumin/Globulin Ratio 0.6 01/08/21 12:00: Bedside Glucose (Misc Panel) 168H 01/08/21 15:10: Clostridium difficile [id number] PRESUMPTIVE NEGATIVE, Clostridium difficile Toxin (PCR) POSITIVEA 01/08/21 17:16: Bedside Glucose (Misc Panel) 247H CBC/BMP Laboratory Tests 01/08/21 08:39 Allergies Coded Allergies: No Known Allergies (Unverified , 08/22/20) Home Medications Scheduled Amlodipine Besylate (Amlodipine Besylate) 10 Mg Tablet, 10 MG PO DAILY, (Reported) Carvedilol (Carvedilol) 3.125 Mg Tablet, 3.125 MG PO BID, (Reported) TAKES WITH 12.5MG FOR 15.625MG TOTAL Carvedilol (Carvedilol) 25 Mg Tablet, 12.5 MG PO BID, (Reported) TAKES WITH 3.125MG FOR 15.625MG TOTAL Folic Acid (Folic Acid) 1 Mg Tablet, 1 MG PO DAILY, (Reported) Gabapentin (Gabapentin) 600 Mg Tablet, 600 MG PO TID, (Reported) Lactulose (Constulose) 10 Gm/15 Ml Solution, 15 ML PO DAILY, (Reported) Lisinopril (Lisinopril) 40 Mg Tablet, 40 MG PO DAILY, (Reported) Magnesium Oxide (Magnesium Oxide) 400 Mg Tablet, 400 MG PO DAILY, (Reported) Metformin HCl (Metformin HCl ER) 500 Mg Tab.er.24h, 1,000 MG PO BID, (Reported) Multivitamin,Therapeutic (Thera-Tabs) 1 Each Tablet, 1 TAB PO DAILY, (Reported) Naltrexone HCl (Naltrexone HCl) 50 Mg Tablet, 50 MG PO QHS, (Reported) Rockfall-3 Acid Ethyl Esters (Rockfall-3 Acid Ethyl Esters) 1 Gm Capsule, 4 GM PO DAILY, (Reported) Omeprazole (Omeprazole) 40 Mg Capsule.dr, 40 MG PO DAILY, (Reported) Ropinirole HCl (Ropinirole HCl) 0.5 Mg Tablet, 1 MG PO QHS, (Reported) Sucralfate (Sucralfate) 1 Gm Tablet, 1 GM PO BID, (Reported) Thiamine HCl (Thiamine HCl) 100 Mg Tablet, 100 MG PO DAILY, (Reported) Torsemide (Torsemide) 10 Mg Tablet, 10 MG PO DAILY, (Reported) Scheduled PRN Hydroxyzine HCl (Hydroxyzine HCl) 50 Mg Tablet, 50 MG PO TID PRN for ANXIETY/AGITATION, (Reported) Lidocaine/Prilocaine (Lidocaine-Prilocaine Cream) 2.5%/2.5% Cream..g., 1 APPLIC TOP BID PRN for PAIN, (Reported) APPLY TO AFFECTED AREA ON RIGHT LEG Miscellaneous Medications [Patient Comment] , (Reported) MED REC COMPLETED VIA PREVIOUS DISCHARGE PAPERWORK (12/09/20) MARY KATE DUQUE MD Jan 08, 2021 22:11
[2021-01-09] MEDS: VANCOMYCIN ORAL SOL 250MG/5ML ORAL SYRINGE PO SCH ×5 (00:14→23:35)
[2021-01-09 02:00] VITALS: BP 132/73
[2021-01-09 06:00] VITALS: BP 152/87
[2021-01-09] MEDS: SODIUM CHLORIDE 0.9% INJ 10 ML SYR IV SCH ×3 (06:02→21:45)
[2021-01-09] MEDS: HEPARIN SOD (PORCINE) 5000UNITS/ML 1ML VIAL/SYRINGE SC SCH ×3 (06:02→21:45)
[2021-01-09 06:38] LABS: BASO % 0.2 % (0.0-1.0); EOS % 0.3 % (0.0-3.0); HEMATOCRIT 26.2 % (42.0-52.0); HEMOGLOBIN 8.8 g/dl (13.5-17.5); LYMPH # 0.8 10^3/uL (1.5-5.0); LYMPH % 11.6 % (24.0-44.0); MEAN CORPUSCULAR HEMOGLOBIN 32.5 pg (27.0-33.0); MEAN CORPUSCULAR HGB CONC 33.6 g/dl (32.0-36.5); MEAN CORPUSCULAR VOLUME 96.7 fl (80.0-96.0); MONO # 0.5 10^3/uL (0.0-0.8); MONO % 8.3 % (2.0-8.0); NEUTROPHILS # 5.1 10^3/uL (1.5-8.5); NEUTROPHILS % 79.1 % (36.0-66.0); PLATELET COUNT, AUTOMATED 179 10^3/uL (150-450); RED BLOOD COUNT 2.71 10^6/uL (4.30-6.10); WHITE BLOOD COUNT 6.5 10^3/uL (4.0-10.0)
[2021-01-09 06:53] LABS: ALBUMIN 1.6 GM/DL (3.2-5.2); BILIRUBIN,TOTAL 0.6 MG/DL (0.2-1.0); CALCIUM LEVEL 6.6 MG/DL (8.5-10.1); CREATININE FOR GFR 2.04 MG/DL (0.70-1.30); GLOMERULAR FILTRATION RATE 36.4 (>56); TOTAL PROTEIN 4.5 GM/DL (6.4-8.2)
[2021-01-09] MEDS: HumaLOG INSULIN (NovoLOG) PER UNIT SC SCH ×4 (08:18→21:00)
[2021-01-09] MEDS: FOLIC ACID 1 MG TAB PO SCH (08:19)
[2021-01-09] MEDS: MULTIVITAMINS/MINERALS THERAP 1 TAB PO SCH (08:19)
[2021-01-09] MEDS: SUCRALFATE 1 GM TAB PO SCH ×2 (08:19→21:46)
[2021-01-09] MEDS: GABAPENTIN 300 MG CAP PO SCH ×3 (08:19→21:46)
[2021-01-09] MEDS: MAGNESIUM OXIDE 400MG TAB (MAG-OX) PO SCH (08:19)
[2021-01-09] MEDS: NICOTINE 7 MG/24 HR TRANSDERMAL TD SCH (08:19)
[2021-01-09] MEDS: CARVedilol 12.5 MG TAB PO SCH ×2 (08:20→21:00)
[2021-01-09 10:00] VITALS: BP 101/68
[2021-01-09 14:00] VITALS: BP 110/71
--- NOTE | 2021-01-09 17:24 | IPNPDOC ---
Text Note Date of Service The patient was seen on 01/09/21. NOTE Subjective: Patient examined and seen at bedside. Patient reports still feeling very tired. He reports still having nausea but it is well controlled after taking Zofran. He was tested for C. difficile yesterday and was tested positive for it so he was started on vancomycin by mouth. He denies having any fever, chills, shortness of breath, chest pain, abdominal pain. Patient is not eating even in the hospital. Objective: physical exam: Gen. appearance: Patient able 3, was laying in bed when I went to see him, does not appear to be in any acute distress. Cardiac: S1 and S2 normal, regular rate and rhythm, no murmur appreciated. Respiratory: Absent of breath sounds in the bilateral lower lung bases likely due to his bilateral pleural effusion, clear breath sounds appreciated in the upper lobes, patient is not short of breath, did not appreciate any wheezes or rhonchi. Abdomen: Nondistended, soft, tenderness to palpation in lower quadrants> and rest of the abdomen, positive bowel sounds appreciated. Integument: And continued to have pitting edema 2+ in his flanks and sacral region, indurated skin in his thighs. Genitourinary: Patient has Smiley catheter in, he is putting out very little urine in the last 24 hours he put out 875 mL of urine. Extremity: Patient has 1+ pitting edema in his thighs, his edema in his legs has been decreased since yesterday. Labs: WBC 6.5, hemoglobin 8.8, hematocrit 26.2, platelets 179. BMP sodium 143, K4, BUN 19 creatinine 2.04 Prior labs: Patient has a history of hepatitis C and treated for it. History of hepatitis B cleared the infection naturally. Patient had colonoscopy done in August at [facility]: Reported as angiectasia in the ascending colon, stenosis in the transverse colon, internal and external hemorrhoid. Was recommended repeat endoscopy in 1 year. EGD done at the same time in August showed gastric bypass and an ulcer at the junction of gastro jejunal junction. And was recommended repeat endoscopy in 3 months. Imaging: A chest x-ray performed on 01/05/2021 was reported to show no acute process. A CT of the head performed without contrast on 01/05/2021 was reported to show no acute intracranial abnormality. A chest x-ray performed post insertion of a triple-lumen catheter in the internal jugular vein was reported to show right IJ central line terminates at the cavoatrial junction. Pleural effusions are better demonstrated on CT. A CT of the abdomen and pelvis performed without contrast on 01/06/2021 was reported to show severe anasarca, right larger than left pleural effusions are incompletely visualized, mild colonic thickening gratis at the distal descending colon/sigmoid colon. Thickening may be secondary to third spacing of fluid, nonspecific colitis not excluded. Renal ultrasound done on 01/06/2021: Reported :No hydronephrosis. Subcentimeter cyst left kidney. Incidental note made of mild ascites superior to the bladder and in the left upper quadrant. Liver ultrasound done on 01/06/2021: Reported as:Diffuse increased echoes seen throughout the liver and possibly secondary to diffuse fatty infiltration of the liver. The exam is limited. There is no evidence of a mass. Lumbar CT done on 01/06/2021: Reported as:No acute fractures. Anasarca and ascites. Thoracic CT done on 01/06/2021: Reported as: No acute fractures. Large bilateral pleural effusions with adjacent compressive atelectasis. Circumferential thickening of the distal esophagus. Subacute to chronic fracture deformities right anterior 2nd through 4th ribs. CT chest without contrast: Done on 01/07/2021: Reported as:. Bilateral pleural effusions. Malignant effusion cannot be ruled out. 2. Lung gillis as described aboveEvaluation of the lung gillis shows scattered asymmetric in ground-glass opacities intensities particularly in the lower dependent lung gillis and likely secondary to compressive atelectatic change from the effusions. I cannot rule out a lower lung field mass particularly left lower lobe for the suspected atelectatic changes is either rounded in appearance or the density represents a mass Assessment: Patient is a 55-year-old male with PMH HTN, NIDDM, chronic back pain, chronic neck pain, alcohol use disorder, GERD, W p W syndrome, history of pancreatitis, history of Crohn's not on medication, HDL, hepatitis C treated, hepatitis B cleared infection, was brought in by EMS after the stenting before and was very weak and couldn't get up and was in that position for 7-8 hours eventually was brought to the ED to be evaluated. In the ED he was found to be grossly anasarca with edema has lower extremities and back. He was admitted for further management. Plan: Anasarca: Likely secondary to decreased oral intake/malnutrition/loss of oncotic pressure/third spacing: - Given the patient's 24-hour urine protein is 0.2 g per day it is unlikely nephrotic syndrome. - Patient's prealbumin was checked which is very low 4.1 [prealbumin give us a better index for protein energy malnutrition] - And does not have cirrhosis given that his platelet count is good and AST ALT does not point towards cirrhosis. - He does have a history of hepatitis C treated and hepatitis B cleared infection, but the imaging doesn't show any cirrhosis - Unlikely the right heart failure causing hives right heart pressures or edema given that patient had an echocardiogram recently which showed normal pressures. - Given the patient is alcoholic likely it might be due to the nutritional deficiency. - Given the patient's history of Crohn's disease and gastric bypass might be the reason for his protein-losing enteropathy. - we think it Can be due to occult malignancy, the CT scan results were reviewed by radiology and as well as pulmonology, they couldn't rule out the possibility of he having malignancy. Patient's CEA is elevated 11.3. - For the above reason oncology was consulted. We would appreciate their input and recommendations at this point of time. - Given the patient had colonoscopy/EGD done recently in August which did not show any malignancy unlikely that he could have developed any malignancy within a period of 6 months. - we think it Can be due to any autoimmune diseases serositis which can cause leakage of protein and third spacing.[autoimmune workup has been ordered for a REVA, double-stranded DNA, anti-Acevedo, anti-to anti-Ro, anti-centromere, antihistone, anticardiolipin, anti-CCP] pending results did Weakness 2/2 decreased oral intake/low albumin/alcoholism: - Patient and has low albumin, unlikely from loss of the urine given that his 24-hour urine is 0.2 g per day. -Patient was in total and infused albumin 25% X 6. 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 - Patient is deconditioned due to his neck and back surgeries and is not doing much of weightbearing movement. - He reports he has a boot for his right leg which doesn't fit might be one of reason for his decreased locomotion and weakness. - Nutritional consult in place. - Will start patient on Ensure Hypoalbuminemia: - Will transfuse albumin 25% X 3, followed by Lasix 40 mg IV once. - Patient's prealbumin is 4.1 very low from the normal range. - we think Likely because of decreased oral intake/serositis autoimmune/malignancy. Alcoholism: - Patient has an extensive alcohol history. However he is not positive for ethyl alcohol when he came in. - Patient is on CIWA protocol. - And reports he is trying to cut down on his alcohol use. - Start him on thiamine 100 mg by mouth twice a day and folic acid. - Get vitamin B12 and folate levels. Urinary and stool incontinence: - At this point not sure of the reason why patient is having stools incontinence. - Thoracic and lumbar CT were done and does not report any cauda equina/conus medullaris. - She denies having any elizabeth anal anesthesia/saddle anesthesia. Hypertension: - Will continue Coreg 12.5 mg twice a day. - Patient was taking 3.125 mg Coreg as well and will hold that dose. - Will continue amlodipine 10 milligrams by mouth daily. - We'll hold torsemide and lisinopril. Genital candidiasis: - Likely from his urinary incontinence and decrease hygiene. - Will give him nystatin cream. NIDDM 2: - Patient is on insulin sliding scale before meals and daily at bedtime. - Hypoglycemic protocol in place. - HbA1c is 9 on 12/05/2020. - Medications need to be optimized outpatient. Restless leg syndrome: - Will continue ropinirole Chronic back pain: - Continue gabapentin. DVT prophylaxis: - Heparin 5000 units every 8 hours. VS,Fishbone, I+O VS, Fishbone, I+O Laboratory Tests 01/09/21 06:09 Vital Signs Date Time Temp Pulse Resp B/P (MAP) Pulse Ox O2 Delivery O2 Flow Rate FiO2 01/09/21 14:00 97.3 75 17 110/71 (84) 92 Room Air I&O- Last 24 Hours up to 6 AM 01/09/21 06:00 Intake Total 2160 ml Output Total 950 ml Balance 1210 ml GME ATTESTATION GME ATTESTATION My faculty preceptor for this patient encounter was physically present during the encounter and was fully available. All aspects of the patient interview, examination, medical decision making process, and medical care plan development were reviewed and approved by the faculty preceptor. The faculty preceptor is aware and concurs with the plan as stated in the body of this note and will attest to such by his/her cosignature. ATTENDING NOTE I personally examined Mr. Fraire and discussed his findings, studies and plan with the resident physician as noted above. Saadia Ortega MD January 09, 2021 17:24 DORCAS SANTANA MD January 10, 2021 07:29
[2021-01-09] MEDS: rOPINIRole 1MG TAB PO SCH (21:46)
[2021-01-09] MEDS: NALTREXONE 50 MG TAB PO SCH (21:49)
[2021-01-09 22:00] VITALS: BP 120/73
[2021-01-10] VITALS (27 sets, daily range): BP systolic 76–143; BP diastolic 42–100
[2021-01-10] MEDS: HEPARIN SOD (PORCINE) 5000UNITS/ML 1ML VIAL/SYRINGE SC SCH (05:22)
[2021-01-10] MEDS: SODIUM CHLORIDE 0.9% INJ 10 ML SYR IV SCH ×3 (05:23→21:37)
[2021-01-10] MEDS: VANCOMYCIN ORAL SOL 250MG/5ML ORAL SYRINGE PO SCH ×3 (05:31→18:00)
[2021-01-10 05:40] LABS: BASO % 0.2 % (0.0-1.0); EOS % 0.3 % (0.0-3.0); LYMPH # 0.9 10^3/uL (1.5-5.0); LYMPH % 14.9 % (24.0-44.0); MEAN CORPUSCULAR HEMOGLOBIN 32.3 pg (27.0-33.0); MEAN CORPUSCULAR HGB CONC 33.5 g/dl (32.0-36.5); MEAN CORPUSCULAR VOLUME 96.4 fl (80.0-96.0); MONO # 0.6 10^3/uL (0.0-0.8); NEUTROPHILS # 4.7 10^3/uL (1.5-8.5); NEUTROPHILS % 75.1 % (36.0-66.0); PLATELET COUNT, AUTOMATED 128 10^3/uL (150-450); RED BLOOD COUNT 1.67 10^6/uL (4.30-6.10); WHITE BLOOD COUNT 6.3 10^3/uL (4.0-10.0)
[2021-01-10 05:43] LABS: HEMATOCRIT 16.1 % (42.0-52.0)
[2021-01-10 05:45] LABS: HEMOGLOBIN 5.4 g/dl (13.5-17.5)
[2021-01-10 06:06] LABS: ALBUMIN 1.1 GM/DL (3.2-5.2); BILIRUBIN,TOTAL 0.4 MG/DL (0.2-1.0); CALCIUM LEVEL 6.5 MG/DL (8.5-10.1); CREATININE FOR GFR 2.16 MG/DL (0.70-1.30); GLOMERULAR FILTRATION RATE 34.1 (>56); TOTAL PROTEIN 3.2 GM/DL (6.4-8.2)
[2021-01-10] MEDS: HumaLOG INSULIN (NovoLOG) PER UNIT SC SCH ×4 (07:30→21:00)
[2021-01-10] MEDS ORDERED: NS 500 ML IV ONE ×2 (08:00→10:00)
[2021-01-10] MEDS: MAGNESIUM OXIDE 400MG TAB (MAG-OX) PO SCH (09:00)
[2021-01-10] MEDS: SUCRALFATE 1 GM TAB PO SCH ×2 (09:00→21:36)
[2021-01-10] MEDS: MULTIVITAMINS/MINERALS THERAP 1 TAB PO SCH (09:00)
[2021-01-10] MEDS: GABAPENTIN 300 MG CAP PO SCH ×3 (09:00→21:36)
[2021-01-10] MEDS: FOLIC ACID 1 MG TAB PO SCH (09:00)
[2021-01-10] MEDS ORDERED: propofoL 500 MG/50 ML VIAL As Ordered ONE (10:05)
[2021-01-10] MEDS ORDERED: LIDOCAINE 2% 100MG/5ML SDV (FOR ANES.) As Ordered ONE (10:06)
--- NOTE | 2021-01-10 10:19 | IPNPDOC ---
Text Note Date of Service The patient was seen on 01/10/21. NOTE Subjective: -No noted fever, chills, shortness of breath, chest pain, abdominal pain, however having massive hematochezia this AM x 2 thus far, hypotensive, and H/H dropped almost 4 units over 24h. Transferring to ICU, getting 3u of blood and giving IVF for hemodynamic support. Dr. Gonsalves consulted, for emergent scoping given history of ulcer and Crohn's. Objective: Vitals: 87/56 during my exam, on room air, afebrile Gen. Pale, ill appearing, responsive, oriented Cardiac: RRR, tachy to 102, S1 and S2 normal, no murmur appreciated. Respiratory: Diminished bases, clear breath sounds appreciated in the upper lobes, no wheezes or rhonchi. Abdomen: Hyperactive sounds, nondistended, soft, tender throughout without rebound or guarding on my exam Ext: pitting edema 2+ UE and LE Labs: WBC 6.3 hgb 5.4 platelets 128 Na 145 K 4 Cr 2.16 Prior labs: Patient has a history of hepatitis C and treated for it. History of hepatitis B cleared the infection naturally. Patient had colonoscopy done in 08/2020 at [facility]: Reported as angiectasia in the ascending colon, stenosis in the transverse colon, internal and external hemorrhoid. Was recommended repeat endoscopy in 1 year. EGD done at the same time in August showed gastric bypass and an ulcer at the junction of gastro jejunal junction. And was recommended repeat endoscopy in 3 months. Imaging: A chest x-ray performed on 01/05/2021 was reported to show no acute process. A CT of the head performed without contrast on 01/05/2021 was reported to show no acute intracranial abnormality. A chest x-ray performed post insertion of a triple-lumen catheter in the interna l jugular vein was reported to show right IJ central line terminates at the cavoatrial junction. Pleural effusions are better demonstrated on CT. A CT of the abdomen and pelvis performed without contrast on 01/06/2021 was reported to show severe anasarca, right larger than left pleural effusions are incompletely visualized, mild colonic thickening gratis at the distal descending colon/sigmoid colon. Thickening may be secondary to third spacing of fluid, nonspecific colitis not excluded. Renal ultrasound done on 01/06/2021: Reported :No hydronephrosis. Subcentimeter cyst left kidney. Incidental note made of mild ascites superior to the bladder and in the left upper quadrant. Liver ultrasound done on 01/06/2021: Reported as:Diffuse increased echoes seen throughout the liver and possibly secondary to diffuse fatty infiltration of the liver. The exam is limited. There is no evidence of a mass. Lumbar CT done on 01/06/2021: Reported as:No acute fractures. Anasarca and ascites. Thoracic CT done on 01/06/2021: Reported as: No acute fractures. Large bilateral pleural effusions with adjacent compressive atelectasis. Circumferential thickening of the distal esophagus. Subacute to chronic fracture deformities right anterior 2nd through 4th ribs. CT chest without contrast: Done on 01/07/2021: Reported as:. Bilateral pleural effusions. Malignant effusion cannot be ruled out. 2. Lung gillis as described aboveEvaluation of the lung gillis shows scattered asymmetric in ground-glass opacities intensities particularly in the lower dependent lung gillis and likely secondary to compressive atelectatic change from the effusions. I cannot rule out a lower lung field mass particularly left lower lobe for the suspected atelectatic changes is either rounded in appearance or the density represents a mass Assessment: Patient is a 55-year-old male with PMH HTN, NIDDM, chronic back pain, chronic neck pain, alcohol use disorder, GERD, W p W syndrome, history of pancreatitis, history of Crohn's not on medication, HDL, hepatitis C treated, hepatitis B cleared infection, was brought in by EMS after the stenting before and was very weak and couldn't get up and was in that position for 7-8 hours eventually was brought to the ED to be evaluated. In the ED he was found to be grossly anasarca with edema has lower extremities and back. He was admitted for further management. Plan: Roverto GIB with hypotension c/f hemorrhagic shock: -giving 3u pRBCs for hgb 5.4, however with persisting hematochezia, and will likely need more -NS boluses PRN for hemodynamic support -Transfer to ICU -consulted surgery for emergent scoping, Dr. Gonsalves planning to take to the OR shortly -PPI IV BID -On PO vanc for Cdiff infection, currently NPO -GIB i/s/o Cdiff infection, Crohn's not on treatment, history of angiectasia in the ascending colon, stenosis in the transverse colon, internal and external hemorrhoid and upper GI ulcer. -Q6H H/H, goal Hgb >8 Cdiff colitis: -On PO vanc Anasarca: Likely secondary to decreased oral intake/malnutrition/loss of oncotic pressure/third spacing: - Given the patient's 24-hour urine protein is 0.2 g per day it is unlikely nephrotic syndrome. - Patient's prealbumin was checked which is very low 4.1 - And does not have cirrhosis given that his platelet count is good and AST ALT does not point towards cirrhosis. - He does have a history of hepatitis C treated and hepatitis B cleared infection, but the imaging doesn't show any cirrhosis - Unlikely cardiosis given echocardiogram recently which showed normal pressures without evidence of CHF - Given the patient's history of Crohn's disease and gastric bypass he might also have protein-losing enteropathy. - There was a c/f occult malignancy, with CT scan reviewed by radiology and pulmonology and couldn't rule out the possibility and CEA is elevated 11.3, so onc was consulted --> now pending scoping for ongoing GIB, so will await findings as well. - There is also c/f autoimmune serositis which can cause leakage of protein and third spacing now with pending REVA, double-stranded DNA, anti-Acevedo, anti-to anti-Ro, anti-centromere, antihistone, anticardiolipin, anti-CCP Weakness 2/2 decreased oral intake/low albumin/alcoholism: - Patient and has low albumin, unlikely from loss of the urine given that his 24-hour urine is 0.2 g per day. - is now s/p albumin 25% X 6. - Patient is deconditioned due to his neck and back surgeries and is not doing much of weightbearing movement as well as poor nutrition. - He reports he has a boot for his right leg which doesn't fit - Nutritional consult in place. - Continue Ensure with meals when he resumes PO Hypoalbuminemia: likely multifactorial with decreased oral intake with poor nutrition/ potential malabsorption of nutrients and potential serositis autoimmune/malignancy as noted above. Alcoholism: - Patient has an extensive alcohol history. - On CIWA protocol. - continue thiamine 100 mg by mouth twice a day and folic acid when he resumes PO Urinary and stool incontinence: - At this point not sure of the reason why patient is having stools incontinence. - Thoracic and lumbar CT were done and does not report any cauda equina/conus medullaris. - Does not have elizabeth anal anesthesia/saddle anesthesia. Hypertension: hold all meds while hypotensive Genital candidiasis: - Likely from his urinary incontinence and decrease hygiene, continue nystatin cream. NIDDM 2: - NPO for scoping, Q6H SSI, FSBG, hypoglycemia protocol Restless leg syndrome: - Will continue ropinirole Chronic back pain: - Continue gabapentin. DVT prophylaxis: KARLA and sequentials Dispo: ICU VS,Fishbone, I+O VS, Fishbone, I+O Laboratory Tests 01/10/21 05:30 Vital Signs Date Time Temp Pulse Resp B/P (MAP) Pulse Ox O2 Delivery O2 Flow Rate FiO2 01/10/21 08:45 97.0 98 14 89/67 95 Room Air I&O- Last 24 Hours up to 6 AM 01/10/21 06:00 Intake Total 620 ml Output Total 250 ml Balance 370 ml DORCAS SANTANA MD January 10, 2021 10:17
[2021-01-10] MEDS ORDERED: SODIUM CHLORIDE 0.9% 1000ML IV ONE (11:00)
[2021-01-10] MEDS: NICOTINE 7 MG/24 HR TRANSDERMAL TD SCH (12:25)
[2021-01-10] MEDS: PANTOPRAZOLE 40MG VIAL (C9113 PER 1) IV SCH ×2 (12:30→21:36)
--- NOTE | 2021-01-10 13:29 | CR ---
CONSULTATION DATE: 01/10/2021 REASON FOR CONSULTATION: Acute gastrointestinal (GI) bleed. HISTORY OF PRESENT ILLNESS: Patient is a 55-year-old male who presented to the hospital with leg weakness and generalized anasarca. He has been treated in the hospital for that for the past few days. Suddenly overnight he had hypotension, bright red blood in his stool, as well as a hemoglobin drop from 8.8 yesterday morning down to 5.4 this morning. I was called urgently as he was hypotensive. He was brought directly to the operating room. I met him there. I spoke with him briefly and then brought him in to the operating room (OR) for an emergent scope. The rest of his history was obtained from the chart. PAST MEDICAL HISTORY: 1. Hypertension. 2. Diabetes. 3. Chronic pain. 4. Iron deficiency. 5. B12 deficiency. 6. Dvwhc-Zfmqdzvun-Knnij syndrome. 7. Diverticulitis. 8. History of Crohn's. 9. Alcoholism. 10. Dyslipidemia. PAST SURGICAL HISTORY: 1. Right knee surgery. 2. Bilateral inguinal hernia repair. 3. Vasectomy. 4. Gastric bypass. 5. Right ankle surgery. 6. Right hip surgery. 7. Right little finger surgery. 8. Right shoulder surgery. 9. Cervical discectomy. 10. Carpal tunnel surgery. SOCIAL HISTORY: Smokes daily. Drinks alcohol daily as well. No drug abuse. FAMILY HISTORY: Noncontributory. ALLERGIES: None. MEDICATIONS: Please see medication reconciliation. REVIEW OF SYSTEMS: As per positives and negatives in the history of present illness (HPI). PHYSICAL EXAMINATION: GENERAL: Awake and alert. Appears to be very weak. Unable to sign his own consent at this time. VITAL SIGNS: Temperature 96.8, pulse 83, respirations 16, blood pressure 84/50, pulse oximetry 94% on room air. HEENT: Pupils are equal, round and reactive to light and accommodation. HEART: S1, S2. Regular rate and rhythm. LUNGS: Clear to auscultation bilaterally. ABDOMEN: Soft, nontender, nondistended. EXTREMITIES: No clubbing, cyanosis or edema. LABORATORY DATA: White count 6.3, hemoglobin 5.4, platelets 128. Potassium 4, creatinine 2.16. Albumin 1.1. ASSESSMENT AND PLAN: The patient is a 55-year-old male with acute gastrointestinal (GI) bleed, likely from an upper source. He does have a history of a bleeding marginal ulcer that was cauterized back in September with Dr. Tripp. He has been continuing to smoke and drink heavily with that. That is likely the source again this time. Recommendation is to take him to the operating room for urgent upper endoscopy to control the bleeding. Risks and benefits include, but are not limited to, bleeding, infection, perforation, damage to surrounding structures, need for further surgery were discussed with the patient. Verbal consent was obtained with him, witnessed by the operating room (OR) staff and he was brought directly to the operating room for the procedure. During the procedure, he did have some bleeding identified. A clip was placed and appeared to have successful control of the bleeding with that. He was then awakened from anesthesia and then send back in stable condition. Will return him back to the intensive care unit (ICU) to continue to finish off his transfusions and continue to monitor him closely
[2021-01-10 14:59] LABS: HEMATOCRIT 39.3 % (42.0-52.0)
[2021-01-10 15:04] LABS: HEMOGLOBIN 13.5 g/dl (13.5-17.5)
[2021-01-10 15:40] LABS: CALCIUM LEVEL 6.6 MG/DL (8.5-10.1); CREATININE FOR GFR 2.15 MG/DL (0.70-1.30); GLOMERULAR FILTRATION RATE 34.3 (>56); POTASSIUM SERUM 3.7 MEQ/L (3.5-5.1)
--- NOTE | 2021-01-10 15:56 | RO ---
OPERATIVE NOTE DATE OF OPERATION: 01/10/21 PREOPERATIVE DIAGNOSIS: Acute GI bleed. POSTOPERATIVE DIAGNOSIS: Bleeding gastric ulcer. PROCEDURE: Esophagogastrojejunoscopy with clipping of active bleeding from gastric ulcer. SURGEON: Jose Juan Gonsalves DO STRINGING MACHINE OPERATOR: None. ANESTHESIA: IV sedation. ESTIMATED BLOOD LOSS: Minimal. COMPLICATIONS: None. INDICATIONS FOR PROCEDURE: The patient is 55-year-old male currently in the hospital being treated with anasarca, overnight had sudden acute episodes of hypotension, bright red blood per rectum, abdominal cramping and his hemoglobin dropped by over three units overnight. He does have a history of a bleeding ulcer about five months ago. Recommendation was to take him to the operating room for urgent upper endoscopy. Risks and benefits of the procedure are not limited to but include bleeding, infection, perforation, damage to surrounding structures, need for further procedure were discussed in detail to the patient. Informed verbal consent was obtained from the patient because he was too weak to sign, witnessed by the OR nurse. The procedure was deemed emergent. I did not have a chance to even get a note in the chart prior to his procedure and he was brought straight to the operating room. DESCRIPTION OF PROCEDURE: The patient was brought back to operating room 3. After sedation, bite block was placed. A timeout was done to confirm proper patient and proper procedure. Following that, an endoscope was passed down the esophagus into the gastric pouch. There was clotted blood in the lower esophagus and in the gastric pouch. I was then able to pass the scope down through the anastomosis into the jejunal limb. There was evidence of clot as well as some bright red blood in that area as well. The scope was then slowly retracted back right at the edge of the GJ anastomosis. There appeared to be some thick clotting with some oozing from behind it. I aspirated the clot, irrigated the area out. There still appeared to be some oozing coming from the lateral side of this. I was able to place one clip on it. After one clip was successfully placed, the oozing appeared to be completely resolved. I irrigated the area out, aspirated out all the clots and the blood that I could see, removed the scope, waited about 5 minutes, went back in, took a second look and again there were no signs of any bright red blood anywhere. The scope was then removed. The patient was awakened from anesthesia and sent to PACU in stable condition. SHELBID
[2021-01-10 21:32] LABS: HEMATOCRIT 37.7 % (42.0-52.0); HEMOGLOBIN 13.3 g/dl (13.5-17.5)
[2021-01-10] MEDS: NALTREXONE 50 MG TAB PO SCH (21:36)
[2021-01-10] MEDS: rOPINIRole 1MG TAB PO SCH (21:36)
[2021-01-11] VITALS (15 sets, daily range): BP systolic 119–184; BP diastolic 68–109
[2021-01-11 04:52] LABS: BASO % 0.3 % (0.0-1.0); EOS # 0.1 10^3/uL (0.0-0.5); EOS % 0.8 % (0.0-3.0); HEMATOCRIT 35.4 % (42.0-52.0); HEMOGLOBIN 12.5 g/dl (13.5-17.5); LYMPH % 21.3 % (24.0-44.0); MEAN CORPUSCULAR HEMOGLOBIN 31.3 pg (27.0-33.0); MEAN CORPUSCULAR HGB CONC 35.3 g/dl (32.0-36.5); MEAN CORPUSCULAR VOLUME 88.5 fl (80.0-96.0); MONO # 0.9 10^3/uL (0.0-0.8); MONO % 9.3 % (2.0-8.0); NEUTROPHILS # 6.2 10^3/uL (1.5-8.5); NEUTROPHILS % 68.1 % (36.0-66.0); PLATELET COUNT, AUTOMATED 106 10^3/uL (150-450); WHITE BLOOD COUNT 9.2 10^3/uL (4.0-10.0)
[2021-01-11 05:23] LABS: ALBUMIN 1.4 GM/DL (3.2-5.2); BILIRUBIN,TOTAL 0.6 MG/DL (0.2-1.0); CALCIUM LEVEL 7.1 MG/DL (8.5-10.1); CREATININE FOR GFR 2.24 MG/DL (0.70-1.30); GLOMERULAR FILTRATION RATE 32.7 (>56); POTASSIUM SERUM 3.5 MEQ/L (3.5-5.1); TOTAL PROTEIN 3.6 GM/DL (6.4-8.2)
[2021-01-11] MEDS: VANCOMYCIN ORAL SOL 250MG/5ML ORAL SYRINGE PO SCH ×4 (05:30→18:20)
[2021-01-11] MEDS: SODIUM CHLORIDE 0.9% INJ 10 ML SYR IV SCH ×2 (05:30→14:00)
[2021-01-11] MEDS: HumaLOG INSULIN (NovoLOG) PER UNIT SC SCH ×4 (07:30→21:00)
[2021-01-11] MEDS: DEXTROSE 50% 50 ML SYRINGE IV PRN (07:42)
[2021-01-11] MEDS ORDERED: D5W/0.45% SODIUM CHLORIDE 1,000 ML IV SCH ×2 (08:15→08:43)
--- NOTE | 2021-01-11 08:22 | IPNPDOC ---
Text Note Date of Service The patient was seen on 01/11/21. NOTE No acute events overnight. He is much more alert this am. He has had multiple bloody BMS last evening, but his hgb is stable s/p clipping of a vessel in his stomach. VSSAF NAD abd - soft, non distended, non tender, no rebound or guarding labs - below A) 55y/o male w/ GI bleed secondary to bleeding ulcer P) reg diet carafate PPI possibly needs counseling to stop drinking. Danny Gonsalves DO VS,Juan M, I+O VS, Fishbone, I+O Laboratory Tests 01/10/21 14:42 01/10/21 15:05 01/10/21 21:18 01/11/21 04:34 Vital Signs Date Time Temp Pulse Resp B/P (MAP) Pulse Ox O2 Delivery O2 Flow Rate FiO2 01/11/21 06:00 72 148/88 01/11/21 04:00 97.9 13 95 Room Air 01/11/21 00:00 01/10/21 11:05 100 I&O- Last 24 Hours up to 6 AM 01/11/21 06:00 Intake Total 4380 ml Output Total 175 ml Balance 4205 ml KITA GONSALVES DO January 11, 2021 08:22
[2021-01-11] MEDS: MULTIVITAMINS/MINERALS THERAP 1 TAB PO SCH (08:40)
[2021-01-11] MEDS: MAGNESIUM OXIDE 400MG TAB (MAG-OX) PO SCH (08:40)
[2021-01-11] MEDS: SUCRALFATE 1 GM TAB PO SCH ×2 (08:40→22:27)
[2021-01-11] MEDS: FOLIC ACID 1 MG TAB PO SCH (08:40)
[2021-01-11] MEDS: PANTOPRAZOLE 40MG VIAL (C9113 PER 1) IV SCH ×2 (08:40→22:26)
[2021-01-11] MEDS: GABAPENTIN 300 MG CAP PO SCH (08:52)
[2021-01-11 11:47] LABS: AMORPHOUS SEDIMENT SMALL (NEGATIVE); APPEARANCE, URINE CLOUDY (CLEAR); BACTERIA, URINE AUTO 1+ (NEGATIVE); BILIRUBIN, URINE AUTO 1+ (NEGATIVE); BLOOD, URINE BLOOD 1+ (NEGATIVE); COLOR, URINE AMBER (YELLOW); GLUCOSE, URINE (UA) AUTO NEGATIVE (NEGATIVE); KETONE, URINE AUTO NEGATIVE (NEGATIVE); LEUKOCYTE ESTERASE, URINE AUTO 2+ (NEGATIVE); MUCUS, URINE SMALL (NEGATIVE); NITRITE, URINE AUTO NEGATIVE (NEGATIVE); PROTEIN, URINE AUTO 1+ mg/dL (NEGATIVE); RBC, URINE AUTO 21 /HPF (0-3); SPECIFIC GRAVITY URINE AUTO 1.024 (1.002-1.035); SQUAMOUS EPITHELIAL CELL UR AU 1 /HPF (0-6); UROBILINOGEN, URINE AUTO 0.2 mg/dL (0.0-2.0); WBC, URINE AUTO TNTC /HPF (0-3)
--- NOTE | 2021-01-11 12:04 | REP ---
INDICATION: to check for the status of the pleural effusion. COMPARISON: 01/06/2021. TECHNIQUE: PA/Lateral FINDINGS: There are small bilateral pleural effusions, right greater than left. There is mild bibasilar parenchymal opacity. There is poor ventilation of the lungs. The heart and mediastinum are unchanged. Right central venous catheter is again seen with the tip in the right atrium. IMPRESSION: Small bilateral pleural effusions right greater than left, with mild bibasilar parenchymal opacity. <Electronically signed by Jose Juan York > 01/11/21 1200
[2021-01-11] MEDS: NICOTINE 7 MG/24 HR TRANSDERMAL TD SCH (12:16)
[2021-01-11] MEDS: CARVedilol 3.125 MG TAB PO SCH (12:16)
[2021-01-11 12:48] LABS: HEP C VIRUS AB INDEX SOURCE PT > 11.0 INDEX (0.0-0.8); HEPATITIS B SURFACE ANTIGEN NEGATIVE (NEGATIVE)
[2021-01-11] MEDS ORDERED: NS 1,000 ML IV SCH (14:05)
[2021-01-11] MEDS ORDERED: SODIUM CHLORIDE 0.9% 1000ML IV ONE (14:05)
--- NOTE | 2021-01-11 14:29 | IPNPDOC ---
Text Note Date of Service The patient was seen on 01/11/21. NOTE Patient was seen and examined this morning. No overnight events. Patient stated he felt well and was complaining of sharp pain in bilateral feet. He states he has this pain chronically but it has just worsened since yesterday. There are no other acute concerns States that he feels a little better and seems like that his edema is going down. Physical exam: General appearance: Patient is alert and oriented 3, not in acute distress. Patient was laying in bed. He appears to be a little confused with garbled speech. Cardiac: Regular rate and rhythm, S1 normal S2 normal, normal murmurs, rubs appreciated. Respiratory: Diminished breath sounds in the bilateral lower lobes, clear breath sounds in the upper lobes, did not notice any wheezes or rhonchi. Abdomen: Non distended, soft, nontender in all the quadrants bilaterally, positive bowel sounds appreciated. Integument: Patient has pitting edema 1-2+ and bilateral legs and feet and bilateral forearms and hands Genitourinary: Patient has Smiley catheter in place as he is having difficulty to pass urine. He still has stool incontinence. Extremities: Patient has pitting edema 1+ noted in bilateral lower extremities extending up to his knee. Labs reviewed Radiology as below A chest x-ray performed on 01/05/2021 was reported to show no acute process. A CT of the head performed without contrast on 01/05/2021 was reported to show no acute intracranial abnormality. A chest x-ray performed post insertion of a triple-lumen catheter in the internal jugular vein was reported to show right IJ central line terminates at the cavoatrial junction. Pleural effusions are better demonstrated on CT. A CT of the abdomen and pelvis performed without contrast on 01/06/2021 was reported to show severe anasarca, right larger than left pleural effusions are incompletely visualized, mild colonic thickening gratis at the distal descending colon/sigmoid colon. Thickening may be secondary to third spacing of fluid, nonspecific colitis not excluded. Renal ultrasound done on 01/06/2021: Reported :No hydronephrosis. Subcentimeter cyst left kidney. Incidental note made of mild ascites superior to the bladder and in the left upper quadrant. Liver ultrasound done on 01/06/2021: Reported as:Diffuse increased echoes seen throughout the liver and possibly secondary to diffuse fatty infiltration of the liver. The exam is limited. There is no evidence of a mass. Lumbar CT done on 01/06/2021: Reported as:No acute fractures. Anasarca and ascites. Thoracic CT done on 01/06/2021: Reported as: No acute fractures. Large bilateral pleural effusions with adjacent compressive atelectasis. Circumferential thickening of the distal esophagus. Subacute to chronic fracture deformities right anterior 2nd through 4th ribs. CT chest without contrast: Done on 01/07/2021: Reported as:. Bilateral pleural effusions. Malignant effusion cannot be ruled out. 2. Evaluation of the lung gillis shows scattered asymmetric in ground-glass opacities intensities particularly in the lower dependent lung gillis and likely secondary to compressive atelectatic change from the effusions. I cannot rule out a lower lung field mass particularly left lower lobe for the suspected atelectatic changes is either rounded in appearance or the density represents a mass Assessment and plan Patient is a 55-year-old male with PMH HTN, NIDDM, chronic back pain, chronic neck pain, alcohol use disorder, GERD, Chris Parkinsons white syndrome, history of pancreatitis, history of Crohn's not on medication, HDL , severe sensorimotor polyneuropathy, diverticulitis was brought in by EMS as he was very weak and couldn't get up and was in that position for 7-8 hours eventually was brought to the ED to be evaluated. In the ED he was found to have gross anasarca with edema in his lower extremities and back. He was admitted for further management. For this. Anasarca. The evaluation revealed that his echo was normal with no cor pulmonale or low EF, his protein creatinine ratio ruled out any nephrotic syndrome, he does not have any signs of cirrhosis on examination on radiology with normal AST, ALT, platelet count and INR. The decision was made that this anasarca is either related to severe protein energy malnutrition, serositis, secondary to autoimmune disease as he already has a history of Crohn's disease, or possible occult malignancy. He is currently being evaluated for these three differentials. 1. Anasarca.: Likely secondary to decreased oral intake/malnutrition/loss of oncotic pressure/third spacing, or serositis secondary to any autoimmune disease versus occult malignancy. He has had mild pericardial effusion, which was seen on the CAT scan. He has bilateral large pleural effusions and ascites with anasarca-like picture. Nephrotic syndrome was ruled out. Because of his low protein creatinine ratio of 0.2 g. His pre albumin and albumin is extremely low pointing towards protein energy malnutrition. Also to rule out autoimmune disease. All the autoimmune workup has been done results still pending. We also were trying to rule out local malignancy and and CAT scans were done, but without contrast as he is having JOHAN and the contrast could not be administered. The CAT scans have not revealed anything acute. Though the CAT scan of the chest mentioned that the mass cannot be ruled out because he has severe atelectasis. The CAT scan was reviewed again with the radiologist as well as tax associate attorney, and both of them feel that the patient does have any lung malignancy at this time. Also in one of the CAT scans of the thoracic spine, he was found that there is mild thickening of the distal esophagus. Given his history of Crohn's, which puts him at high risk of malignancy along with a very uncommon presentation. Tumor markers were done which were negative except for CEA. For anasarca. He has been given albumin with Lasix in the past. Today's anasarca has minimized . Input output has been monitored, but the patient has not been making a lot of urine. For that reason the patient was given albumin with IV f luids today. We will continue to monitor his renal function. Also we have to find out the underlying cause of this anasarca to treat his medical condition. Ordered a repeat chest x-ray to check for any change in the status of pleural effusion. Results show as per the radiologist and increase in bilateral pleural effusion. Our plan is to get a pleural tap for better assessment of cause, but we will hold off on that until the patient stabilizes 2. Weakness 2/2 decreased oral intake/low albumin/alcoholism: He looks very deconditioned and he has been seen by PT, OT, nutrition consult also has been placed and he has started on multivitamins, folic acid and Glucerna high protein shakes. 3. Protein energy malnutrition/Hypoalbuminemia: He has gotten 25% albumin in to 6 times so far with Lasix. He has been severely malnourished. Workup has been initiated. Patient was given 3 bags of 25% albumin today as well with IV fluids. 4. Alcoholism: Vitamin B12, folic acid and Zantac restarted. He has been put on ciwa protocol. 5. Urinary and stool incontinence: Likely secondary to severe de-conditioning. Thoracic and lumbar spine CT is also have been normal and did not show any spinal cord issues. Continue Smiley. She denies having any elizabeth anal anesthesia/saddle anesthesia. 6. Hypertension: Patient restarted on Coreg 3.25 mg once daily. 7. JOHAN . The patient has a baseline ferritin of around 1. . His creatinine has stabilized over the last 48 hours, but he has not been making a lot of urine. For that reason, he will be given some IV fluids today. He has a Smiley in place and post obstructive JOHAN has been ruled out. Continue holding any nephrotoxic drugs. Continue input output monitoring. Renal sonogram as per above. Another urine analysis ordered for today. 8. Genital candidiasis: Likely from his urinary incontinence and decrease hygiene.continue nystatin cream. 9. NIDDM 2: Patient has an A1c of 7.9 on this admission has been started on sliding scale insulin and Lantus at bedtime. Patient had an episode of hypoglycemia early in the morning with FSBS glucose level of 42. Patient have to be given glucose and supplemented with apple juice which increased the glucose to 80. 10) bilateral neuropathic pain in feet: Patient is on 600 mg of Gabapentin 3 times a day, which has been put on hold today because of patient's progressively confused state. 11) altered mentation/confused state: Most likely secondary to urinary tract infection or electrolyte imbalance. Patient's urine analysis shows urinary tract infection. Daily dose of 1 g of Rocephin ordered for the patient. Ammonia level was ordered as well. DVT prophylaxis: Heparin 5000 units every 8 hours. Disposition. Unknown at this time. PT, OT also has been following this patient probably the patient will require acute versus subacute rehabilitation once medically optimized. VS,Fishbone, I+O VS, Fishbone, I+O Laboratory Tests 01/10/21 14:42 01/10/21 15:05 01/10/21 21:18 01/11/21 04:34 Vital Signs Date Time Temp Pulse Resp B/P (MAP) Pulse Ox O2 Delivery O2 Flow Rate FiO2 01/11/21 12:16 164/97 01/11/21 12:00 97.1 76 18 96 Room Air 01/11/21 00:00 01/10/21 11:05 100 I&O- Last 24 Hours up to 6 AM 01/11/21 06:00 Intake Total 4380 ml Output Total 175 ml Balance 4205 ml GME ATTESTATION GME ATTESTATION My faculty preceptor for this patient encounter was physically present during the encounter and was fully available. All aspects of the patient interview, examination, medical decision making process, and medical care plan development were reviewed and approved by the faculty preceptor. The faculty preceptor is aware and concurs with the plan as stated in the body of this note and will attest to such by his/her cosignature. ATTENDING NOTE I, Blas Dumas MD, have independently examined this patient and performed my own physical exam, as well as reviewed the documentation and edited where necessary. I have discussed in detail with the resident / student the findings and plan of treatment as documented by the resident / student and edited their note. I agree with their findings and treatment plan and have edited their doc umentation. Elias Shea MD January 11, 2021 14:29 BLAS DUMAS MD January 12, 2021 12:43
[2021-01-11] MEDS: cefTRIAXone SOD 1 GM in D5W MINI-BAG PLUS 50 ML IV SCH (14:41)
[2021-01-11 18:51] LABS: CALCIUM LEVEL 6.8 MG/DL (8.5-10.1); CREATININE FOR GFR 2.04 MG/DL (0.70-1.30); GLOMERULAR FILTRATION RATE 36.4 (>56); POTASSIUM SERUM 3.4 MEQ/L (3.5-5.1)
[2021-01-11] MEDS: NALTREXONE 50 MG TAB PO SCH (22:27)
[2021-01-11] MEDS: rOPINIRole 1MG TAB PO SCH (22:27)
[2021-01-12] VITALS (8 sets, daily range): BP systolic 137–177; BP diastolic 81–93
[2021-01-12] MEDS: VANCOMYCIN ORAL SOL 250MG/5ML ORAL SYRINGE PO SCH ×5 (00:42→23:26)
[2021-01-12] MEDS: SODIUM CHLORIDE 0.9% INJ 10 ML SYR IV SCH ×2 (00:44→05:57)
[2021-01-12 06:20] LABS: BASO % 0.3 % (0.0-1.0); EOS # 0.2 10^3/uL (0.0-0.5); EOS % 1.6 % (0.0-3.0); HEMATOCRIT 32.2 % (42.0-52.0); HEMOGLOBIN 11.3 g/dl (13.5-17.5); LYMPH # 1.3 10^3/uL (1.5-5.0); LYMPH % 13.5 % (24.0-44.0); MEAN CORPUSCULAR HEMOGLOBIN 31.7 pg (27.0-33.0); MEAN CORPUSCULAR HGB CONC 35.1 g/dl (32.0-36.5); MEAN CORPUSCULAR VOLUME 90.4 fl (80.0-96.0); MONO # 0.8 10^3/uL (0.0-0.8); MONO % 7.7 % (2.0-8.0); NEUTROPHILS # 7.4 10^3/uL (1.5-8.5); NEUTROPHILS % 76.5 % (36.0-66.0); RED BLOOD COUNT 3.56 10^6/uL (4.30-6.10); WHITE BLOOD COUNT 9.7 10^3/uL (4.0-10.0)
[2021-01-12 06:21] LABS: PLATELET COUNT, AUTOMATED 89 10^3/uL (150-450)
[2021-01-12 06:42] LABS: BILIRUBIN,TOTAL 0.6 MG/DL (0.2-1.0); CALCIUM LEVEL 7.5 MG/DL (8.5-10.1); CREATININE FOR GFR 1.81 MG/DL (0.70-1.30); GLOMERULAR FILTRATION RATE 41.8 (>56); POTASSIUM SERUM 3.5 MEQ/L (3.5-5.1); TOTAL PROTEIN 4.3 GM/DL (6.4-8.2)
[2021-01-12 06:43] LABS: ALBUMIN 1.8 GM/DL (3.2-5.2)
[2021-01-12] MEDS: MULTIVITAMINS/MINERALS THERAP 1 TAB PO SCH (08:58)
[2021-01-12] MEDS: FOLIC ACID 1 MG TAB PO SCH (08:58)
[2021-01-12] MEDS: HumaLOG INSULIN (NovoLOG) PER UNIT SC SCH ×4 (08:58→21:00)
[2021-01-12] MEDS: MAGNESIUM OXIDE 400MG TAB (MAG-OX) PO SCH (08:58)
[2021-01-12] MEDS: CARVedilol 3.125 MG TAB PO SCH (08:59)
[2021-01-12] MEDS: PANTOPRAZOLE 40MG VIAL (C9113 PER 1) IV SCH ×2 (08:59→21:25)
[2021-01-12] MEDS: SUCRALFATE 1 GM TAB PO SCH ×2 (08:59→21:25)
[2021-01-12] MEDS: NICOTINE 7 MG/24 HR TRANSDERMAL TD SCH (08:59)
[2021-01-12] MEDS ORDERED: NS 1,000 ML IV SCH (10:55)
--- NOTE | 2021-01-12 11:28 | IPNPDOC ---
Text Note Date of Service The patient was seen on 01/12/21. NOTE S: is feeling a lot better today . He states "he is more himself today". Pt sl ept well and ate his breakfast today. He had two loose stools since last night with no blood in it. Pt is still catheterized. O: Pt has had no overnight events except his BP went up to 172/93 and the pt required a one time dose of amlodipine 10 mg. Pt is better oriented today and alert. His confusion is gone and is speaking clearly today in full sentences. His responses are appropriate. His edema has gone down as well. Vitals: temp-97.4, pulse-75, BP- 168/90, RR- 16 Physical exam: General appearance: Patient is alert and oriented 3, not in acute distress. Patient was laying in bed. Cardiac: Regular rate and rhythm, S1 normal S2 normal, normal murmurs, rubs appreciated. Respiratory: edema 1+ over abdominal wall and sacral area. Normal breath sounds bilateral lower lobes, clear breath sounds in the upper lobes, did not notice any wheezes or rhonchi. Abdomen: Non distended, soft, non tender in all the quadrants bilaterally, positive bowel sounds appreciated. Integument: Patient has pitting edema 1-2+ and bilateral legs and feet and bilateral forearms and hands Genitourinary: Patient has Smiley catheter in place as he is having difficulty to pass urine. Pt has some excoriation over the tip of his penis near the catheter from repeated pulling by the patient. He still has stool incontinence. Extremities: Patient has pitting edema 1+ noted in bilateral lower extremities extending up to his knee. Labs reviewed Radiology as below A chest x-ray performed on 01/11/2021 was reported to show small B/L pleural effusions. A CT of the head performed without contrast on 01/05/2021 was reported to show no acute intracranial abnormality. A chest x-ray performed post insertion of a triple-lumen catheter in the internal jugular vein was reported to show right IJ central line terminates at the cavoatrial junction. Pleural effusions are better demonstrated on CT. A CT of the abdomen and pelvis performed without contrast on 01/06/2021 was reported to show severe anasarca, right larger than left pleural effusions are incompletely visualized, mild colonic thickening gratis at the distal descending colon/sigmoid colon. Thickening may be secondary to third spacing of fluid, nonspecific colitis not excluded. Renal ultrasound done on 01/06/2021: Reported :No hydronephrosis. Subcentimeter cyst left kidney. Incidental note made of mild ascites superior to the bladder and in the left upper quadrant. Liver ultrasound done on 01/06/2021: Reported as:Diffuse increased echoes seen throughout the liver and possibly secondary to diffuse fatty infiltration of the liver. The exam is limited. There is no evidence of a mass. Lumbar CT done on 01/06/2021: Reported as:No acute fractures. Anasarca and ascites. Thoracic CT done on 01/06/2021: Reported as: No acute fractures. Large bilateral pleural effusions with adjacent compressive atelectasis. Circumferential thickening of the distal esophagus. Subacute to chronic fracture deformities right anterior 2nd through 4th ribs. CT chest without contrast: Done on 01/07/2021: Reported as:. Bilateral pleural effusions. Malignant effusion cannot be ruled out. 2. Evaluation of the lung gillis shows scattered asymmetric in ground-glass opacities intensities particularly in the lower dependent lung gillis and likely secondary to compressive atelectatic change from the effusions. I cannot rule out a lower lung field mass particularly left lower lobe for the suspected atelectatic changes is either rounded in appearance or the density represents a mass Urine analysis was positive for UTI yesterday 01/12/2021. Urine culture grew staph aureus on 01/12/2021 Assessment and plan Patient is a 55-year-old male with Past Medical history of HTN, NIDDM, chronic back pain, chronic neck pain, alcohol use disorder, GERD, Chris Parkinsons white syndrome, history of pancreatitis, history of Crohn's not on medication, HDL , severe sensorimotor polyneuropathy, diverticulitis was brought in by EMS as he was very weak and couldn't get up and was in that position for 7-8 hours eventually was brought to the ED to be evaluated. In the ED he was found to have Gross Anasarca with edema in his lower extremities and back. He was admitted for further management. For this. Anasarca. The evaluation revealed that his echo was normal with no cor pulmonale or low EF, his protein creatinine ratio ruled out any nephrotic syndrome, he does not have any signs of cirrhosis on examination on radiology with normal AST, ALT, platelet count and INR. The decision was made that this Anasarca is either related to severe protein energy malnutrition, Serositis, secondary to autoimmune disease as he already has a history of Crohn's disease, or possible occult malignancy. He is currently being evaluated for these three differentials. 1. Anasarca.: Likely secondary to possible Cirrhosis v/s decreased oral intake v/s malnutrition/loss of oncotic pressure/third spacing, or serositis secondary to any autoimmune disease versus occult malignancy: Pt's reason for anasarca is still under evaluation. Outside scans show fibrotic scarring on his fibrosure ultrasound with a score of 4. For serosistis, his panel of labs were ordered which are still pending . He needs a follow up on an outpatient basis for that and a liver biopsy needs to be ordered for a definite diagnosis. His pre albumin and albumin is extremely low pointing towards protein energy malnutrition. We have seen great improvement in him after administration of albumin so we will be administering another 3 bags of albumin followed by i/v fluids for a total of 1 litre today as well. Input output has been monitored, but the patient has not been making a lot of urine but his output has increased to about 500 ml today since the last 12 hrs. 2. Weakness 2/2 decreased oral intake/low albumin/alcoholism: He looks very de- conditioned. PT/ OT consult also has been placed and he has started on multivitamins, folic acid and Glucerna high protein shakes. 3. Protein energy malnutrition/ Hypo albuminemia: He has gotten 25% albumin . He's getting some more today along with IV fluids. He has been severely malnourished. 4. Alcoholism: Patient is on Vitamin B12, folic acid and Zantac He has been put on ciwa protocol. 5. Urinary and stool incontinence: Likely secondary to severe de-conditioning. Thoracic and lumbar spine CT is also have been normal and did not show any spinal cord issues. Continue Smiley. He denies having any elizabeth anal anesthesia/saddle anesthesia. 6. Hypertension: Patient had blood pressures of 171/93 overnight and required an additional dose of amlodipine 10 mg once. Patient continued to be on Coreg 3.25 mg once daily 7. JOHAN likely secondary to hepatorenal syndrome: The patient has a baseline ferritin of around 1. . His creatinine has stabilized over the last 48 hours, but he has not been making a lot of urine. For that reason, he will be given some IV fluids today. He has a Smiley in place and post obstructive JOHAN has been ruled out. Continue holding diuretics and nephrotoxic drugs. Continue input output monitoring. Renal sonogram as per above. Urine analysis showed UTI. He is being treated by 1 g Rocephin daily. 8. Genital candidiasis: Likely from his urinary incontinence and decrease hygiene.continue nystatin cream. 9. NIDDM 2: Patient has an A1c of 7.9 on this admission has been started on sliding scale insulin and Lantus at bedtime. Patient's latest blood glucose was 137. No episodes of hypoglycemia overnight 10) bilateral neuropathic pain in feet: Patient does not report any neuropathic pain today. Gabapentin still on hold VS,Fishbone, I+O VS, Fishbone, I+O Laboratory Tests 01/11/21 17:58 01/12/21 05:56 Vital Signs Date Time Temp Pulse Resp B/P (MAP) Pulse Ox O2 Delivery O2 Flow Rate FiO2 01/12/21 04:00 97.4 75 16 171/93 (119) 92 Room Air 01/11/21 00:00 01/10/21 11:05 100 I&O- Last 24 Hours up to 6 AM 01/12/21 06:00 Intake Total 3100.0 ml Output Total 450 ml Balance 2650.0 ml GME ATTESTATION GME ATTESTATION My faculty preceptor for this patient encounter was physically present during the encounter and was fully available. All aspects of the patient interview, examination, medical decision making process, and medical care plan development were reviewed and approved by the faculty preceptor. The faculty preceptor is aware and concurs with the plan as stated in the body of this note and will attest to such by his/her cosignature. Elias Shea MD January 12, 2021 09:31
[2021-01-12] MEDS: cefTRIAXone SOD 1 GM in D5W MINI-BAG PLUS 50 ML IV SCH (13:00)
[2021-01-12] MEDS: ACETAMINOPHEN TAB 650MG DOSE (2X325MG) PO PRN ×2 (14:30→21:26)
[2021-01-12] MEDS: NALTREXONE 50 MG TAB PO SCH (21:25)
[2021-01-12] MEDS: rOPINIRole 1MG TAB PO SCH (21:25)
[2021-01-13] VITALS (10 sets, daily range): BP systolic 139–170; BP diastolic 79–98
[2021-01-13] MEDS: VANCOMYCIN ORAL SOL 250MG/5ML ORAL SYRINGE PO SCH ×4 (05:43→23:52)
[2021-01-13 06:14] LABS: BASO % 0.2 % (0.0-1.0); EOS # 0.1 10^3/uL (0.0-0.5); EOS % 1.2 % (0.0-3.0); HEMATOCRIT 36.6 % (42.0-52.0); HEMOGLOBIN 12.9 g/dl (13.5-17.5); LYMPH % 9.6 % (24.0-44.0); MEAN CORPUSCULAR HEMOGLOBIN 31.3 pg (27.0-33.0); MEAN CORPUSCULAR HGB CONC 35.2 g/dl (32.0-36.5); MEAN CORPUSCULAR VOLUME 88.8 fl (80.0-96.0); MONO # 0.7 10^3/uL (0.0-0.8); MONO % 6.5 % (2.0-8.0); NEUTROPHILS # 8.8 10^3/uL (1.5-8.5); NEUTROPHILS % 81.5 % (36.0-66.0); RED BLOOD COUNT 4.12 10^6/uL (4.30-6.10); WHITE BLOOD COUNT 10.7 10^3/uL (4.0-10.0)
[2021-01-13 06:18] LABS: PLATELET COUNT, AUTOMATED 84 10^3/uL (150-450)
[2021-01-13] MEDS ORDERED: BENZOCAINE 20% HEMORRHOIDAL OINTMENT 28GM TUBE TOP PRN ×2 (09:40→16:15)
[2021-01-13 09:42] LABS: CALCIUM LEVEL 7.7 MG/DL (8.5-10.1); CREATININE FOR GFR 1.63 MG/DL (0.70-1.30); GLOMERULAR FILTRATION RATE 47.2 (>56); PHOSPHORUS LEVEL 2.5 MG/DL (2.5-4.9); POTASSIUM SERUM 3.7 MEQ/L (3.5-5.1)
[2021-01-13] MEDS: NICOTINE 7 MG/24 HR TRANSDERMAL TD SCH (09:42)
[2021-01-13] MEDS: HumaLOG INSULIN (NovoLOG) PER UNIT SC SCH ×4 (09:42→21:00)
[2021-01-13 09:43] LABS: BILIRUBIN,TOTAL 0.6 MG/DL (0.2-1.0); MAGNESIUM LEVEL 1.6 MG/DL (1.8-2.4); TOTAL PROTEIN 4.7 GM/DL (6.4-8.2)
[2021-01-13] MEDS: PANTOPRAZOLE 40MG VIAL (C9113 PER 1) IV SCH ×2 (09:43→22:18)
[2021-01-13] MEDS: ACETAMINOPHEN TAB 650MG DOSE (2X325MG) PO PRN ×2 (09:43→22:22)
[2021-01-13] MEDS: SUCRALFATE 1 GM TAB PO SCH ×2 (09:43→22:21)
[2021-01-13] MEDS: MAGNESIUM OXIDE 400MG TAB (MAG-OX) PO SCH ×3 (09:44→22:23)
[2021-01-13] MEDS: CARVedilol 3.125 MG TAB PO SCH (09:44)
[2021-01-13] MEDS: DOXYCYCLINE HYCLATE 100MG TABLET PO SCH ×2 (13:04→22:19)
[2021-01-13 14:11] LABS: ANTI CENTROMERE ANTIBODY <0.2 AI (0.0-0.9); ANTI DS-DNA AB Negative (Negative); ANTI SCLERODERMA ANTIBODIES <0.2 AI (0.0-0.9); ANTI SMITH(Sm) AB <20 Units (<20); ANTI-HISTONE ANTIBODIES 0.2 Units (0.0-0.9); ANTINUCLEAR ANTIBODIES DIRECT Negative (Negative); CARDIOLIPIN IGA ANTIBODY <9 APL U/mL (0-11); CARDIOLIPIN IGG ANTIBODY <9 GPL U/mL (0-14); CARDIOLIPIN IGM ANTIBODY <9 MPL U/mL (0-12); CYCLIC CITRULLINATED PEPTIDE < 1 units (0-19); SJOGREN'S ANTI SS-A <0.2 AI (0.0-0.9); SJOGREN'S ANTI SS-B <0.2 AI (0.0-0.9)
[2021-01-13] MEDS ORDERED: NS 1,000 ML IV SCH (15:50)
--- NOTE | 2021-01-13 16:59 | IPNPDOC ---
Text Note Date of Service The patient was seen on 01/13/21. NOTE S : Pt states he feels better today and was just a little upset because of be ing poked a multiple times because of the lab not being able to get access because of upper extremity edema. Also,the pt has been having some discomfort because of scrotal edema around the groin and at the site of catheter insertion. He also complains of having canker sores in his mouth. No other complaints. Nurse reported no overnight events. O : Pt looks non-toxic appearing , lying comfortably in his bed. He is slightly uncomfortable on moving because of the friction exacerbating the groin pain. Vitals today are , temperature -97.0 , pulse- 80, RR-18, BP- 161/86 and O2 saturation of 94 on room air. EXAMINATION: GENERAL : HEENT: Non traumatic , Normocephalic, moist mucous membranes, non icteric, no pallor, PERRLA, EOMI. CVS: S1, S2 herad, no murmurs or ronchi. LUNGS: B/l lungs sound symmetrical with no wheezing/rales. Basal crackles heard bilaterally. ABDOMEN: Non tender, non distended with no organomegaly. Generalized 1+ edema all over the abdominal wall. NEURO: CN 2-12 intact, Good motor strength, sensations intact. SKIN: Pt has 2+ sacral dependant edema. Multiple canker sores seen in his oral cavity. EXTREMITIES: 2+ edema B/l lower extremity edema. PSYCH: Mood appropriate, mildly anxious. ASSESSMENT and plan: Patient is a 55-year-old male with Past Medical history of HTN, NIDDM, chronic back pain, chronic neck pain, alcohol use disorder, GERD, Chris Parkinsons white syndrome, history of pancreatitis, history of Crohn's not on medication, HDL , severe sensorimotor polyneuropathy, diverticulitis was brought in by EMS as he was very weak and couldn't get up and was in that position for 7-8 hours eventually was brought to the ED to be evaluated. In the ED he was found to have Gross Anasarca with edema in his lower extremities and back. He was admitted for further management. For this. Anasarca. The evaluation revealed that his echo was normal with no cor pulmonale or low EF, his protein creatinine ratio ruled out any nephrotic syndrome, he does not have any signs of cirrhosis on examination on radiology with normal AST, ALT, platelet count and INR. The decision was made that this Anasarca is either related to severe protein energy malnutrition, Serositis, secondary to autoimmune disease as he already has a history of Crohn's disease, or possible occult malignancy. He is currently being evaluated for these three differentials. 1. Anasarca.: Likely secondary to possible Cirrhosis v/s decreased oral intake v/s malnutrition/loss of oncotic pressure/third spacing, or Serositis secondary to any autoimmune disease versus occult malignancy: Pt's reason for anasarca is still under evaluation most likely cirrhosis which needsv to be followed up outpatient for a definite diagnosis and a biopsy. Fibrosure score of F2-4 suggesting significant fibrosis. For Serositis, his panel of labs were ordered which are still pending . He needs a follow up on an outpatient basis for that and a liver biopsy needs to be ordered for a definite diagnosis. His pre albumin and albumin is extremely low pointing towards protein energy malnutrition as well secondary to alcoholism. Renal function improving with albumin infusion , pt's creatinine improved to 1.6 , so we will be continuing another 3 bags of albumin followed by i/v fluids for a total of 1 litre today as well. 2.JOHAN likely secondary to hepatorenal syndrome/ pre renal/ ATN: Pt has additional history of GI bleed 3 days ago leading to intravascular depletion causing JOHAN leading to his Creatinine to increase to 2.54. However after managing the bleed and giving the patient albumin and fluids,his creatinine has improved to 1.6 as of today . However the patient's baseline creatinine is 0.9. We will continue IV fluids today with albumin. Continue holding diuretics and nephrotoxic drugs. Continue input output monitoring. Pt is still oliguric however we anticipate his urine output to improve over the next couple of days. 3. UTI: positive on urine culture for MRSA: -Doxycycline added on PO for 5 days. 4. C. difficile colitis: Pt treated on oral vancomycin- 6th day of treatment. Continue for another 8 days. 5. Protein energy malnutrition/ Hypo-albuminemia: Continue to give albumin- 3 bags today followed by a litre of fluid. Pt continues to take Glucerna as well 6. Alcoholism: Patient is on Vitamin B12, folic acid and Zantac He has been put on ciwa protocol. 7.Weakness 2/2 decreased oral intake/low albumin/alcoholism: He looks very de- conditioned. PT/ OT consult also has been placed and he has started on multivitamins, folic acid and Glucerna high protein shakes. May require dialysis in the near future. 8. Hypertension: Patient runs a BP of around 160/90 to 140/60. We have changed his dosage of Coreg to 6.25 BID today and stopped norvasc. 9)Contact dermatitis / rash in the groin area: Zinc oxide ordered. To be applies 3-4 times a day on a clean area. 10. NIDDM 2: Patient has an A1c of 7.9 on this admission has been started on sliding scale insulin and Lantus at bedtime. Patient's latest blood glucose was 137. No episodes of hypoglycemia overnight 11) bilateral neuropathic pain in feet: Patient does not report any neuropathic pain today. Gabapentin discontinued. 12)Oral Canker sores: Pt was started on a topical benzocaine ointment on an as needed basis for relief. 13) Groin irritation: zinc oxide cream ordered to be applied at the irraitated area for barrier protection. 14) Elevated CEA/tumor marker:Possible lung mass appreciated on chest CT. Pt needs to be followed up on that outpatient with heme oncology. VS,Fishbone, I+O VS, Fishbone, I+O Laboratory Tests 01/13/21 05:56 01/13/21 09:02 Vital Signs Date Time Temp Pulse Resp B/P (MAP) Pulse Ox O2 Delivery O2 Flow Rate FiO2 01/13/21 15:47 97.0 80 18 159/89 94 Room Air 01/11/21 00:00 01/10/21 11:05 100 I&O- Last 24 Hours up to 6 AM 01/13/21 06:00 Intake Total 2770.0 ml Output Total 1375 ml Balance 1395.0 ml GME ATTESTATION GME ATTESTATION My faculty preceptor for this patient encounter was physically present during the encounter and was fully available. All aspects of the patient interview, examination, medical decision making process, and medical care plan development were reviewed and approved by the faculty preceptor. The faculty preceptor is aware and concurs with the plan as stated in the body of this note and will attest to such by his/her cosignature. Elias Shea MD January 13, 2021 16:45
[2021-01-13] MEDS: REMEDY PHYTOPLEX Z-GUARD PASTE 113GM TUBE (FROM STOREROOM PRODUCT) TOP SCH (21:00)
[2021-01-13] MEDS: NALTREXONE 50 MG TAB PO SCH (22:21)
[2021-01-13] MEDS: rOPINIRole 1MG TAB PO SCH (22:22)
[2021-01-13] MEDS: CARVedilol 6.25 MG TAB PO SCH (22:22)
[2021-01-14] VITALS (10 sets, daily range): BP systolic 122–165; BP diastolic 76–103
[2021-01-14] MEDS: ACETAMINOPHEN TAB 650MG DOSE (2X325MG) PO PRN ×2 (03:58→21:09)
[2021-01-14] MEDS: VANCOMYCIN ORAL SOL 250MG/5ML ORAL SYRINGE PO SCH ×4 (06:44→23:25)
--- NOTE | 2021-01-14 06:51 | REP ---
INDICATION: sob, decreased ox sat COMPARISON: 01/11/2021 TECHNIQUE: PA and lateral. FINDINGS: Diffuse bilateral airspace disease (left greater than right) appears to be increased from prior examination. Lateral view demonstrates moderate pleural effusions which are relatively similar to prior exam. No pneumothorax. Skeletal structures intact. Cardiac silhouette is within normal limits. IMPRESSION: Bilateral airspace disease (left greater than right) increased and moderate stable pleural effusions. <Electronically signed by Marcos Morrow > 01/14/21 0648
[2021-01-14 06:54] LABS: BASO % 0.1 % (0.0-1.0); EOS # 0.1 10^3/uL (0.0-0.5); EOS % 0.7 % (0.0-3.0); HEMATOCRIT 30.4 % (42.0-52.0); LYMPH # 0.8 10^3/uL (1.5-5.0); LYMPH % 8.8 % (24.0-44.0); MEAN CORPUSCULAR HEMOGLOBIN 31.8 pg (27.0-33.0); MEAN CORPUSCULAR HGB CONC 34.9 g/dl (32.0-36.5); MEAN CORPUSCULAR VOLUME 91.3 fl (80.0-96.0); MONO # 0.6 10^3/uL (0.0-0.8); MONO % 6.9 % (2.0-8.0); NEUTROPHILS # 7.1 10^3/uL (1.5-8.5); NEUTROPHILS % 83.1 % (36.0-66.0); RED BLOOD COUNT 3.33 10^6/uL (4.30-6.10); WHITE BLOOD COUNT 8.6 10^3/uL (4.0-10.0)
[2021-01-14 07:01] LABS: HEMOGLOBIN 10.6 g/dl (13.5-17.5)
[2021-01-14 07:02] LABS: PLATELET COUNT, AUTOMATED 80 10^3/uL (150-450)
[2021-01-14 07:17] LABS: BILIRUBIN,TOTAL 0.7 MG/DL (0.2-1.0); CALCIUM LEVEL 7.6 MG/DL (8.5-10.1); CREATININE FOR GFR 1.39 MG/DL (0.70-1.30); GLOMERULAR FILTRATION RATE 56.7 (>56); TOTAL PROTEIN 4.4 GM/DL (6.4-8.2)
[2021-01-14] MEDS: HumaLOG INSULIN (NovoLOG) PER UNIT SC SCH ×4 (07:30→21:00)
[2021-01-14] MEDS: SUCRALFATE 1 GM TAB PO SCH ×2 (08:45→21:08)
[2021-01-14] MEDS: MAGNESIUM OXIDE 400MG TAB (MAG-OX) PO SCH ×2 (08:45→21:07)
[2021-01-14] MEDS: PANTOPRAZOLE 40MG VIAL (C9113 PER 1) IV SCH ×2 (08:45→21:06)
[2021-01-14] MEDS: DOXYCYCLINE HYCLATE 100MG TABLET PO SCH ×2 (08:45→21:08)
[2021-01-14] MEDS: NICOTINE 7 MG/24 HR TRANSDERMAL TD SCH (08:46)
[2021-01-14] MEDS: REMEDY PHYTOPLEX Z-GUARD PASTE 113GM TUBE (FROM STOREROOM PRODUCT) TOP SCH ×3 (08:46→21:00)
[2021-01-14] MEDS: CARVedilol 6.25 MG TAB PO SCH ×2 (08:46→21:08)
[2021-01-14] MEDS ORDERED: MAGNESIUM OXIDE 400MG TAB (MAG-OX) PO SCH (09:00)
--- NOTE | 2021-01-14 11:43 | IPNPDOC ---
Text Note Date of Service The patient was seen on 01/14/21. NOTE S : Pt states he feels better today . He states that his chronic irritation has gotten much better with less pain at the catheter site. No other complaints. Nurse reported the patient getting hypoxic overnight, r saturation dipping down to 84 requiring 4 L of oxygen via nasal cannula. Patient feels comfortable on 4 L oxygen at this point. O : Pt looks non-toxic appearing , l sitting comfortably on a chair today. Vitals are , temperature -96.5 , pulse- 93 RR-22 BP- 152/98 and O2 saturation of 88% on 4 L of oxygen via nasal cannula EXAMINATION: GENERAL : HEENT: Non traumatic , Normocephalic, moist mucous membranes, non icteric, no pallor, PERRLA, EOMI. CVS: S1, S2 herad, no murmurs or ronchi. LUNGS: B/l lungs sound symmetrical with no wheezing/rales. Basal crackles heard bilaterally. ABDOMEN: Non tender, non distended with no organomegaly. Generalized 1+ edema all over the abdominal wall. NEURO: CN 2-12 intact, Good motor strength, sensations intact. SKIN: Pt has 2+ sacral dependant edema. Multiple canker sores seen in his oral cavity. EXTREMITIES: 2+ edema B/l lower extremity edema. PSYCH: Mood appropriate, mildly anxious. GENITAL: Less red as compared to yesterday. ASSESSMENT and plan: Patient is a 55-year-old male with Past Medical history of HTN, NIDDM, chronic back pain, chronic neck pain, alcohol use disorder, GERD, Chris Parkinsons white syndrome, history of pancreatitis, history of Crohn's not on medication, HDL , severe sensorimotor polyneuropathy, diverticulitis was brought in by EMS as he was very weak and couldn't get up and was in that position for 7-8 hours eventually was brought to the ED to be evaluated. In the ED he was found to have Gross Anasarca with edema in his lower extremities and back. He was admitted for further management. For this. Anasarca. The evaluation revealed that his echo was normal with no cor pulmonale or low EF, his protein creatinine ratio ruled out any nephrotic syndrome, he does not have any signs of cirrhosis on examination on radiology with normal AST, ALT, platelet count and INR. The decision was made that this Anasarca is either related to severe protein energy malnutrition, Serositis, secondary to autoimmune disease as he already has a history of Crohn's disease, or possible occult malignancy. He is currently being evaluated for these three differentials. # Anasarca: Likely secondary to possible Cirrhosis v/s decreased oral intake v/s malnutrition/loss of oncotic pressure/third spacing versus occult malignancy: Pt's reason for anasarca is still under evaluation most likely cirrhosis which needs to be followed up outpatient for a definite diagnosis and a biopsy. Fibrosure score of F2-4 suggesting significant fibrosis. He needs a follow up on an outpatient basis for that and a liver biopsy needs to be ordered for a definite diagnosis. Pt's Serositis has been ruled out. Labs came back to be negative. His pre albumin and albumin is extremely low pointing towards protein energy malnutrition as well secondary to alcoholism. -Pt's Urine output improved overnight and he had a total output of 1050 ml since 8 pm last night as per the nurse. His creatinine today came down further to 1.39. We will be continuing the pt today on oral protein shakes . #GI Bleed: Resolved . Hemoglobin stable, no blood in stools. continue to monitor. #Hypoxia secondary to pleural effusion : Pt has been hypoxic since last night. Pt's CXR showed increased pleural effusion so we ordered a Therapeutic and Diagnostic Thoracentesis of the Rt side with a pleural fluid analysis. Pt is on 4L oxygen via nasal cannula. #JOHAN likely secondary to hepatorenal syndrome/ pre renal/ ATN: Pt has additional history of GI bleed 3 days ago leading to intravascular depletion causing JOHAN leading to his Creatinine to increase to 2.54. However after managing the bleed and giving the patient albumin and fluids,his creatinine has improved to 1.6 as of today . However the patient's baseline creatinine is 0.9. We will continue IV fluids today with albumin. Continue holding diuretics and nephrotoxic drugs. Continue input output monitoring. Pt is still oliguric however we anticipate his urine output to improve over the next couple of days. # UTI: positive on urine culture for MRSA: -Doxycycline continue for another 4 days. # C. difficile colitis: Pt treated on oral vancomycin- 7th day of treatment. Continue for another 7 days. # Protein energy malnutrition/ Hypo-albuminemia: Pt's oral intake is good and can be continued on Glucerna shake for protein . # Alcoholism: Patient is on Vitamin B12, folic acid and Zantac He has been put on CIWA protocol. # Weakness 2/2 decreased oral intake/low albumin/alcoholism: He looks very de- conditioned. PT/ OT has worked with him and he can support himself on a chair for an hour at least before getting too weak. Pt was advised to stay on the chair a little more today. Pt continues to be on multivitamins, folic acid and Glucerna high protein shakes. # Hypertension: Patient runs a BP of around 160/90 to 140/60. Pt had a few hypotensive episodes and as por the hold protocol coreg was held and will be res tarted as the BP comes up. Pt denies any red flag symptoms of shaking, dizziness or head aches. #Rash in the groin area: The irritation has gone down as per the pt. Zinc oxide continued To be applied 3-4 times a day on a clean area. # NIDDM 2: Patient has an A1c of 7.9 on this admission continues to be on sliding scale insulin and Lantus at bedtime. Patient's latest blood glucose was 95 . No episodes of hypoglycemia overnight # Bilateral neuropathic pain in feet: Patient does not report any neuropathic pain today. Gabapentin discontinued. # Oral Canker sores: Pt was started on a topical benzocaine ointment on an as needed basis for relief. # Elevated CEA/tumor marker:Possible lung mass appreciated on chest CT. Pt needs to be followed up on that outpatient with heme oncology. VS,Fishbone, I+O VS, Fishbone, I+O Laboratory Tests 01/14/21 06:38 Vital Signs Date Time Temp Pulse Resp B/P (MAP) Pulse Ox O2 Delivery O2 Flow Rate FiO2 01/14/21 08:46 93 153/96 01/14/21 07:23 96.5 22 88 Nasal Cannula 4.0 01/10/21 11:05 100 I&O- Last 24 Hours up to 6 AM 01/14/21 06:00 Intake Total 1755.0 ml Output Total 1240 ml Balance 515.0 ml GME ATTESTATION GME ATTESTATION My faculty preceptor for this patient encounter was physically present during the encounter and was fully available. All aspects of the patient interview, examination, medical decision making process, and medical care plan development were reviewed and approved by the faculty preceptor. The faculty preceptor is aware and concurs with the plan as stated in the body of this note and will attest to such by his/her cosignature. Elias Shea MD January 14, 2021 11:09
--- NOTE | 2021-01-14 16:34 | REP ---
INDICATION: POST THORA, 2 VIEW. COMPARISON: 01/14/2021, 5:49 a.m.. TECHNIQUE: Two views of the chest performed following right thoracentesis. FINDINGS: There is no pneumothorax. There are mild scattered parenchymal opacities bilaterally, which have improved. There is mild elevation of left hemidiaphragm. Pleural fluid has decreased. IMPRESSION: No pneumothorax status post right thoracentesis. Improved bilateral infiltrates and pleural effusions. <Electronically signed by Jose Juan York > 01/14/21 [id number]
[2021-01-14 16:46] LABS: PH BODY FLUID 7.777 UNITS (NOT ESTABLISHED); SOURCE, BODY FLUID pH PLEURAL
[2021-01-14 17:02] LABS: AMYLASE, BODY FLUID 4 U/L (NOT ESTABLISHED); CHOLESTEROL, BODY FLUID < 50 MG/DL (NOT ESTABLISHED); LDH, BODY FLUID 74 U/L (NOT ESTABLISHED); SOURCE, BODY FLUID ALBUMIN PLEURAL; SOURCE, BODY FLUID AMYLASE PLEURAL; SOURCE, BODY FLUID CHOL PLEURAL; SOURCE, BODY FLUID GLUCOSE PLEURAL; SOURCE, BODY FLUID LDH PLEURAL; SOURCE, BODY FLUID TOT PROTEIN PLEURAL; SOURCE, BODY FLUID TRIG PLEURAL; TOTAL PROTEIN, BODY FLUID 0.5 G/DL (NOT ESTABLISHED); TRIGLYCERIDE, BODY FLUID 6 MG/DL (NOT ESTABLISHED)
[2021-01-14 17:03] LABS: SOURCE, BODY FLUID PLEURAL
[2021-01-14 17:04] LABS: APPEARANCE, BODY FLUID HAZY (CLEAR); PLEURAL FL COLOR PALE YELLOW (COLORLESS)
--- NOTE | 2021-01-14 17:16 | REP ---
INDICATION: Rt sided pleural effusion diagnostic and therapeutic. COMPARISON: None. TECHNIQUE: The procedure was performed under the direct supervision of Dr. York. The risks and benefits of the procedure were explained to the patient and informed consent was obtained. The right pleural effusion was localized using ultrasound guidance. The skin was prepped and draped in a sterile fashion. 1% lidocaine was used as a local anesthetic. An 8 [place] multi side hole catheter was inserted using trocar technique. 1365 cc of yellow fluid was withdrawn and sent to the lab for analysis. The patient tolerated the procedure well and there were no immediate complications. After the appropriate amount to monitor convalescence the patient was discharged from the department. FINDINGS: None IMPRESSION: Ultrasound-guided right thoracentesis yielding 1365 cc of yellow fluid. <Electronically signed by Tim Acevedo > 01/14/21 1620 <Electronically signed by Jose Juan York > 01/14/21 1711
[2021-01-14] MEDS: rOPINIRole 1MG TAB PO SCH (21:06)
[2021-01-14] MEDS: NALTREXONE 50 MG TAB PO SCH (21:07)
[2021-01-15 04:00] VITALS: BP 143/87
[2021-01-15 05:24] LABS: BASO % 0.2 % (0.0-1.0); EOS # 0.1 10^3/uL (0.0-0.5); EOS % 1.2 % (0.0-3.0); HEMATOCRIT 30.2 % (42.0-52.0); HEMOGLOBIN 10.2 g/dl (13.5-17.5); LYMPH % 10.7 % (24.0-44.0); MEAN CORPUSCULAR HEMOGLOBIN 30.8 pg (27.0-33.0); MEAN CORPUSCULAR HGB CONC 33.8 g/dl (32.0-36.5); MEAN CORPUSCULAR VOLUME 91.2 fl (80.0-96.0); MONO # 0.6 10^3/uL (0.0-0.8); MONO % 6.5 % (2.0-8.0); NEUTROPHILS # 7.5 10^3/uL (1.5-8.5); RED BLOOD COUNT 3.31 10^6/uL (4.30-6.10); WHITE BLOOD COUNT 9.2 10^3/uL (4.0-10.0)
[2021-01-15] MEDS: VANCOMYCIN ORAL SOL 250MG/5ML ORAL SYRINGE PO SCH ×2 (05:48→13:11)
[2021-01-15 05:51] LABS: ALBUMIN 1.8 GM/DL (3.2-5.2); BILIRUBIN,TOTAL 0.7 MG/DL (0.2-1.0); CALCIUM LEVEL 7.3 MG/DL (8.5-10.1); CREATININE FOR GFR 1.36 MG/DL (0.70-1.30); GLOMERULAR FILTRATION RATE 58.1 (>56); POTASSIUM SERUM 3.6 MEQ/L (3.5-5.1)
[2021-01-15 05:57] LABS: PLATELET COUNT, AUTOMATED 81 10^3/uL (150-450)
[2021-01-15 08:28] VITALS: BP 145/92
[2021-01-15] MEDS: NICOTINE 7 MG/24 HR TRANSDERMAL TD SCH (09:00)
[2021-01-15] MEDS: HumaLOG INSULIN (NovoLOG) PER UNIT SC SCH ×2 (09:09→13:11)
[2021-01-15 09:10] VITALS: BP 145/92
[2021-01-15] MEDS: PANTOPRAZOLE 40MG VIAL (C9113 PER 1) IV SCH (09:10)
[2021-01-15] MEDS: DOXYCYCLINE HYCLATE 100MG TABLET PO SCH (09:10)
[2021-01-15] MEDS: CARVedilol 6.25 MG TAB PO SCH (09:10)
[2021-01-15] MEDS: MAGNESIUM OXIDE 400MG TAB (MAG-OX) PO SCH (09:10)
[2021-01-15] MEDS: SUCRALFATE 1 GM TAB PO SCH (09:10)
[2021-01-15] MEDS: REMEDY PHYTOPLEX Z-GUARD PASTE 113GM TUBE (FROM STOREROOM PRODUCT) TOP SCH (09:11)
[2021-01-15] MEDS ORDERED: FIRV50SO PO (12:10)
[2021-01-15] MEDS ORDERED: DOXY100T PO (12:10)
--- NOTE | 2021-01-15 14:46 | DS.PDOC ---
Discharge Summary General Date of Admission Jan 06, 2021 at 05:22 Date of Discharge 01/15/2021 for 12 PM Primary Care Physician: Salud Sparks Attending Physician: JOHN PAUL CAMACHO MD Discharge Summary PROCEDURES PERFORMED DURING STAY: [None]. ADMITTING DIAGNOSES: 1. Anasarca secondary to possible cirrhosis versus protein energy malnutrition worsens possible malignancy. DISCHARGE DIAGNOSES: 1. Anasarca. COMPLICATIONS/CHIEF COMPLAINT: Acute Renal Failure, Anasarca. HISTORY OF PRESENT ILLNESS: Patient is a timmy 55 year old male with a past medical history of hypertension, [id number] diabetes mellitus, chronic pelvic pain, chronic back pain, alcohol abuse disorder, GERD, Chris parkinsons white syndrome, history of pancreatitis, history of Crohn's, hyperlipidemia, severe sensorimotor polyneuropathy, diverticulitis was brought in by the EMS because of extreme weakness where he could not get up leaning in that position for 7-8 hours. In the ED he was found to have gross anasarca with edema in his lower extremities and back where he was further evaluated for likely cause of anasarca. HOSPITAL COURSE: While in the hospital patient was thought to have anasarca likely secondary to possible cirrhosis based on fiber sure ultrasound score of F24 suggesting significant fibrosis however he needs a follow-up on an outpatient basis for a definite diagnosis via liver biopsy. Patient was suspected to have underlying malignancy because of a left lung opacity suspicious for a malignancy found on the chest x-ray and an elevated carcinoembryonic antigen which needs to be followed up outpatient by an oncologist. Other possibility for anasarca most likely protein energy malnutrition. Patient was given IV albumin with fluids to take care of that. Other causes like serositis work ruled out when labs came negative. Nephrotic syndrome was ruled out initially because of a low protein creatinine ratio. Patient developed increasing pleural effusion bilaterally more on the right than the left. Diagnostic and therapeutic thoracocentesis was done and the pleural fluid was sent for analysis showing a transudative effusion. Cytology has been sent off the pleural fluid which is still pending. Needs follow-up on an outpatient basis for that as well. Meanwhile the patient had an episode of GI bleed on January 10 leading to hypotension , JOHAN and anemia with a hemoglobin of 5.4 requiring the placement of a central line and blood transfusion. The patient in the hospital was referred to an urgent EGD and the surgeon placed a clip on what was found to be a GE junction bleeding ulcer . Patient recovered with blood transfusions hemoglobin became stable, patient's acute kidney injury was treated with IV fluids and avoiding diuretics and all nephrotoxic drugs.. Patient stayed oliguric for a few days but his urine output started to improve over the next couple of days. In the meantime patient had C. difficile colitis which was being treated by oral vancomycin. Which will be continued for another 9 days post discharge. Patient needed a Smiley's catheter placement because of urinary incontinence and was also found to have a UTI with a urine culture positive for MRSA. Patient was treated with doxycycline dose of 5 days. Patient still has to have 2 more days of treatment to complete therapy. Patient's hypertension medication was resumed as per his home protocol. DISCHARGE MEDICATIONS: Please see below. ALLERGIES: Please see below. PHYSICAL EXAMINATION ON DISCHARGE: VITAL SIGNS: Please see below. GENERAL: Patient looks nontoxic, comfortable, not in any acute distress. HEENT: Atraumatic, normocephalic, moist mucous membranes, nonicteric, no conjunctival pallor, PERRLA, EOMI. NECK: No lymphadenopathy, thyroid not enlarged CARDIOVASCULAR EXAMINATION: Rate and rhythm normal. S1, S2 heard, no murmurs appreciated RESPIRATORY EXAMINATION: Bilateral lungs sounds symmetrical with no wheezing or rales. Basal crackles improved markedly on the right side remained the same on the left side. ABDOMINAL EXAMINATION: Nontender, nondistended with no organomegaly. Generalized 1+ edema over the abdominal wall. EXTREMITIES: 2+ edema bilateral lower extremities NEUROLOGICAL EXAMINATION: Gross motor strength 5 out of 5, sensations intact PSYCHIATRIC EXAMINATION: Motor appropriate, alert oriented to time place person. LABORATORY DATA: Please see below. IMAGING: PROGNOSIS: POOR . 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 Patient was referred to nephrology and gastroenterology as well. ACTIVITY: Has tolerated. DIET: High protein low salt diet DISCHARGE PLANITEMS TO FOLLOWUP ON ON OUTPATIENT: Patient should abstain from alcohol completely. Patient needs to be on high protein diet. Patient needs to be cOMpliant with outpatient follow-up . Patient will be followed up outpatient by gastroenterology to get a definite diagnosis via liver biopsy because of a very high suspicion of underlying cirrhosis. Patient also needs to follow up with nephrology to assess for oliguria and ny ge the renal component of hepatorenal syndrome. Patient will need follow-up with oncology for suspicious increase in tumor markers CEA, and a suspicious opacity in the left lung on imaging. DISPOSITION: Patient likely to be readmitted for similar symptoms until the patient receives liver transplant if he qualifies. At present he does not qualify to be on the liver transplant list DISCHARGE CONDITION: Stable. TIME SPENT ON DISCHARGE: Greater than 40 minutes. Vital Signs/I&Os Vital Signs Date Time Temp Pulse Resp B/P (MAP) Pulse Ox O2 Delivery O2 Flow Rate FiO2 01/15/21 09:10 94 145/92 01/15/21 08:28 98.0 20 92 Room Air 01/14/21 20:00 2.0 01/10/21 11:05 100 I&O- Last 24 Hours up to 6 AM 01/15/21 05:59 Intake Total 300 ml Output Total 400 ml Balance -100 ml Laboratory Data Labs 24H Laboratory Tests 2 01/14/21 16:00: Body Fluid pH 7.777, Body Fluid pH Source PLEURAL, Body Fluid WBC (Auto) 291H, Body Fluid RBC (Auto) < 2, Body Fluid Mononuclear Cells % Auto 24.1H, Fluid Polymorphonuclear Cell % Auto 75.9H, Body Fluid Glucose Source PLEURAL, Body Fluid Glucose 170, Body Fluid Protein Source PLEURAL, Body Fluid Total Protein 0.5, Body Fluid Albumin Source PLEURAL, Body Fluid Albumin 0.3, Body Fluid LDH Source PLEURAL, Body Fluid Lactate Dehydrogenase 74, Body Fluid Amylase Source PLEURAL, Body Fluid Amylase 4, Body Fluid Cholesterol < 50, Body Fluid Cholesterol Source PLEURAL, Body Fluid Triglyceride Source PLEURAL, Body Fluid Triglycerides 6, Pleural Fluid Source PLEURAL, Pleural Fluid Color PALE YELLOW, Pleural Fluid Appearance HAZY 01/14/21 17:50: Bedside Glucose (Misc Panel) 204H 01/14/21 20:43: Bedside Glucose (Misc Panel) 164H 01/15/21 04:43: Immature Granulocyte % (Auto) 0.4, Neutrophils (%) (Auto) 81.0H, Lymphocytes (%) (Auto) 10.7L, Monocytes (%) (Auto) 6.5, Eosinophils (%) (Auto) 1.2, Basophils (%) (Auto) 0.2, Neutrophils # (Auto) 7.5, Lymphocytes # (Auto) 1.0L, Monocytes # (Auto) 0.6, Eosinophils # (Auto) 0.1, Basophils # (Auto) 0.0, Nucleated Red Blood Cells % (auto) 0.0, Anion Gap 6L, Glomerular Filtration Rate 58.1, Calcium Level 7.3L, Total Bilirubin 0.7, Aspartate Amino Transf (AST/SGOT) 17, Alanine Aminotransferase (ALT/SGPT) 12, Alkaline Phosphatase 106, Total Protein 4.0L, Albumin 1.8L, Albumin/Globulin Ratio 0.8 01/15/21 12:29: Bedside Glucose (Misc Panel) 168H CBC/BMP Laboratory Tests 01/15/21 04:43 FSBS Laboratory Tests Test 01/14/21 17:50 01/14/21 20:43 01/15/21 12:29 Range/Units Bedside Glucose (Misc Panel) 204 164 168 70-105 MG/DL Microbiology Microbiology 01/15/21 Respiratory Virus Panel (PCR) (MONET) - Final, Complete 01/14/21 Acid Fast Stain, Received Pending 01/14/21 Mycobacterial Culture, Received Pending 01/14/21 Fungal Smear, Received Pending 01/14/21 Fungal Culture, Received Pending 01/14/21 Gram Stain - Final, Resulted 01/14/21 Body Fluid Culture, Resulted Pending 01/14/21 Anaerobic Culture, Resulted Pending 01/11/21 Urine Culture - Final, Complete Staph.aureus Methicillin Resis Discharge Medications Scheduled Carvedilol (Carvedilol) 3.125 Mg Tablet, 3.125 MG PO BID, (Reported) TAKES WITH 12.5MG FOR 15.625MG TOTAL Carvedilol (Carvedilol) 25 Mg Tablet, 12.5 MG PO BID, (Reported) TAKES WITH 3.125MG FOR 15.625MG TOTAL Doxycycline Hyclate (Doxycycline Hyclate) 100 Mg Tablet, 100 MG PO BID Folic Acid (Folic Acid) 1 Mg Tablet, 1 MG PO DAILY, (Reported) Lactulose (Constulose) 10 Gm/15 Ml Solution, 15 ML PO DAILY, (Reported) Magnesium Oxide (Magnesium Oxide) 400 Mg Tablet, 400 MG PO DAILY, (Reported) Metformin HCl (Metformin HCl ER) 500 Mg Tab.er.24h, 1,000 MG PO BID, (Reported) Multivitamin,Therapeutic (Thera-Tabs) 1 Each Tablet, 1 TAB PO DAILY, (Reported) [place]-3 Acid Ethyl Esters ([place]-3 Acid Ethyl Esters) 1 Gm Capsule, 4 GM PO D AILY, (Reported) Omeprazole (Omeprazole) 40 Mg Capsule.dr, 40 MG PO DAILY, (Reported) Ropinirole HCl (Ropinirole HCl) 0.5 Mg Tablet, 1 MG PO QHS, (Reported) Sucralfate (Sucralfate) 1 Gm Tablet, 1 GM PO BID, (Reported) Thiamine HCl (Thiamine HCl) 100 Mg Tablet, 100 MG PO DAILY, (Reported) Vancomycin HCl (Firvanq) 50 Mg/1 Ml Soln.recon, 125 MG PO Q6H Scheduled PRN Hydroxyzine HCl (Hydroxyzine HCl) 50 Mg Tablet, 50 MG PO TID PRN for ANXIETY/AGITATION, (Reported) Lidocaine/Prilocaine (Lidocaine-Prilocaine Cream) 2.5%/2.5% Cream..g., 1 APPLIC TOP BID PRN for PAIN, (Reported) APPLY TO AFFECTED AREA ON RIGHT LEG Allergies Coded Allergies: No Known Allergies (Unverified , 08/22/20) GME ATTESTATION GME ATTESTATION My faculty preceptor for this patient encounter was physically present during the encounter and was fully available. All aspects of the patient interview, examination, medical decision making process, and medical care plan development were reviewed and approved by the faculty preceptor. The faculty preceptor is aware and concurs with the plan as stated in the body of this note and will attest to such by his/her cosignature. Elias Shea MD January 15, 2021 14:04
== END 2021-01-15 14:53 | DRG 843 ==
LOC: M ED 20:53 → EEVIPCON 01-06 05:22 → M ED INP 01-06 05:22 → ENRESERV 01-06 06:03 → M MSPAV 01-06 07:51 → M ICU 01-10 10:02 → M PCU 01-10 11:56
PROVIDERS: ADMIT Family Medicine; ATTEND Internal Medicine
PROC: 30233J1 Transfusion of Nonautologous Serum Albumin into Peripheral Vein, Percutaneous Approach (ICD-10-PCS; 2021-01-06)
PROC: 30233N1 Transfusion of Nonautologous Red Blood Cells into Peripheral Vein, Percutaneous Approach (ICD-10-PCS; 2021-01-10)
PROC: 0W3P8ZZ Control Bleeding in Gastrointestinal Tract, Via Natural or Artificial Opening Endoscopic (ICD-10-PCS; principal; 2021-01-10 09:58)
DX: E88.09 Other disorders of plasma-protein metabolism, not elsewhere classified (principal); K28.4 Chronic or unspecified gastrojejunal ulcer with hemorrhage; E43 Unspecified severe protein-calorie malnutrition; N17.9 Acute kidney failure, unspecified; J90 Pleural effusion, not elsewhere classified; K50.918 Crohn's disease, unspecified, with other complication; A04.72 Enterocolitis due to Clostridium difficile, not specified as recurrent; R60.1 Generalized edema; E72.20 Disorder of urea cycle metabolism, unspecified; E11.42 Type 2 diabetes mellitus with diabetic polyneuropathy; M54.2 Cervicalgia; E53.8 Deficiency of other specified B group vitamins; K21.9 Gastro-esophageal reflux disease without esophagitis; E78.5 Hyperlipidemia, unspecified; F10.20 Alcohol dependence, uncomplicated; F17.210 Nicotine dependence, cigarettes, uncomplicated; R32 Unspecified urinary incontinence; B37.2 Candidiasis of skin and nail; Z20.822 Contact with and (suspected) exposure to COVID-19; Z79.84 Long term (current) use of oral hypoglycemic drugs; Z79.899 Other long term (current) drug therapy; R53.1 Weakness; I45.6 Pre-excitation syndrome; R91.8 Other nonspecific abnormal finding of lung field; R15.9 Full incontinence of feces; G25.81 Restless legs syndrome; L20.9 Atopic dermatitis, unspecified; Z98.84 Bariatric surgery status; K12.0 Recurrent oral aphthae; K74.60 Unspecified cirrhosis of liver

== ENCOUNTER 2021-02-20 22:25 | Emergency (ER) | payer OTHER, MEDICAID ==
[~2021-02-20] VITALS: Ht 175.3 cm; Wt 77.3 kg
[~2021-02-20 22:25] MED LIST changes: +BACTDSTA PO; +DOXY100T PO; +FIRV50SO PO; +LIDO1CRE42 TOP; -LIDO2.5C15 TOP; +PATIENT COMMENT; -SULF1TAB93 PO
--- NOTE | 2021-02-20 23:36 | REPVR ---
PROCEDURE INFORMATION: Exam: CT Head Without Contrast Exam date and time: 02/20/2021 11:17 PM Age: 56 years old Clinical indication: Altered mental status/memory loss; Confusion or disorientation TECHNIQUE: Imaging protocol: Computed tomography of the head without contrast. Radiation optimization: All CT scans at this facility use at least one of these dose optimization techniques: automated exposure control; mA and/or kV adjustment per patient size (includes targeted exams where dose is matched to clinical indication); or iterative reconstruction. COMPARISON: CT Head without contrast 01/05/2021 10:18 PM FINDINGS: Brain: There is volume loss. There is white matter lucency consistent with chronic microvascular disease. There is an old left thalamic lacunar infarct. There are 2 old left frontal cortical infarcts. No acute infarct identified. No hemorrhage or extra-axial collection. No mass. Cerebral ventricles: Ventricular dilatation appears secondary to volume loss and is stable compared with prior scan Paranasal sinuses: Visualized sinuses are unremarkable. No fluid levels. Mastoid air cells: Visualized mastoid air cells are well aerated. Bones/joints: Unremarkable. No acute fracture. Soft tissues: Unremarkable. IMPRESSION: 1. There is volume loss and chronic microvascular disease with old left frontal cortical infarcts. 2. No acute intracranial lesion or injury and no change from prior scan. Electronically signed by: Akira Pringle On 02/20/2021 23:36:12 PM
--- NOTE | 2021-02-20 23:41 | REPVR ---
PROCEDURE INFORMATION: Exam: CT Cervical Spine Without Contrast Exam date and time: 02/20/2021 11:17 PM Age: 56 years old Clinical indication: Injury or trauma; Fall; Blunt trauma; Additional info: Altered mental status TECHNIQUE: Imaging protocol: Computed tomography images of the cervical spine without contrast. Radiation optimization: All CT scans at this facility use at least one of these dose optimization techniques: automated exposure control; mA and/or kV adjustment per patient size (includes targeted exams where dose is matched to clinical indication); or iterative reconstruction. COMPARISON: No relevant prior studies available. FINDINGS: Bones/joints: There is no fracture of the cervical spine. Vertebral bodies maintain their height. There is no change elements. There is anterior fusion with metal plate and screws from C 5 to C7. There is osseous fusion across these levels. There is a mild C3-C4 retrolisthesis. Alignment is otherwise normal. Discs/Spinal canal/Neural foramina: There is no central spinal stenosis in the cervical spine. There is mild foraminal stenosis at C4 Lungs: Lung apices are normal. Soft tissues: Unremarkable. IMPRESSION: No fracture of the cervical spine. Electronically signed by: Akira Pringle On 02/20/2021 23:41:06 PM
--- NOTE | 2021-02-20 23:47 | REPVR ---
PROCEDURE INFORMATION: Exam: XR Right Ribs with PA Chest Exam date and time: 02/20/2021 11:39 PM Age: 56 years old Clinical indication: Other: Fall with chest wall pain TECHNIQUE: Imaging protocol: XR Right ribs with PA chest. Views: 3 views COMPARISON: CR Chest, 2 view PA, Lat 01/14/2021 5:53 AM FINDINGS: Lungs: Unremarkable. No consolidation. Pleural spaces: Unremarkable. No pleural effusion. No pneumothorax. Heart/Mediastinum: Unremarkable. No cardiomegaly. Bones/joints: There are old right rib fractures. No acute fractures identified. No focal osseous lesion. IMPRESSION: There are old right rib fractures. No acute fracture identified. Electronically signed by: Akira Pringle On 02/20/2021 23:47:23 PM
[2021-02-21 01:46] LABS: BASO % 0.2 % (0.0-1.0); EOS % 0.2 % (0.0-3.0); HEMATOCRIT 23.6 % (42.0-52.0); LYMPH # 0.7 10^3/uL (1.5-5.0); LYMPH % 6.4 % (24.0-44.0); MEAN CORPUSCULAR HEMOGLOBIN 33.8 pg (27.0-33.0); MEAN CORPUSCULAR HGB CONC 33.9 g/dl (32.0-36.5); MEAN CORPUSCULAR VOLUME 99.6 fl (80.0-96.0); MONO # 0.6 10^3/uL (0.0-0.8); MONO % 5.5 % (2.0-8.0); NEUTROPHILS # 9.4 10^3/uL (1.5-8.5); NEUTROPHILS % 87.4 % (36.0-66.0); PLATELET COUNT, AUTOMATED 184 10^3/uL (150-450); RED BLOOD COUNT 2.37 10^6/uL (4.30-6.10); WHITE BLOOD COUNT 10.7 10^3/uL (4.0-10.0)
[2021-02-21 02:21] LABS: BLOOD UREA NITROGEN 6 MG/DL (7-18); CALCIUM LEVEL 6.5 MG/DL (8.5-10.1); CARBON DIOXIDE LEVEL 25 MEQ/L (21-32); CHLORIDE LEVEL 106 MEQ/L (98-107); CREATININE FOR GFR 0.94 MG/DL (0.70-1.30); GLOMERULAR FILTRATION RATE > 60.0 (>56); GLUCOSE, FASTING 339 MG/DL (70-100); POTASSIUM SERUM 3.3 MEQ/L (3.5-5.1); SODIUM LEVEL 138 MEQ/L (136-145)
[2021-02-21 02:22] LABS: ACETAMINOPHEN LEVEL 8.1 UG/ML (10.0-30.0); ALBUMIN 1.5 GM/DL (3.2-5.2); ALT/SGPT 20 U/L (12-78); BILIRUBIN,DIRECT 0.2 MG/DL (0.0-0.2); BILIRUBIN,TOTAL 0.4 MG/DL (0.2-1.0); CK-MB VALUE MASS 3.3 NG/ML (<3.6); CPK CREATINE PHOSPHOKINASE 75 U/L (39-308); ETHYL ALCOHOL (ETHANOL) 0.074 % (0.000-0.010); TOTAL PROTEIN 4.3 GM/DL (6.4-8.2); TROPONIN I 0.03 NG/ML (< 0.10)
[2021-02-21] MEDS ORDERED: NS 1,000 ML IV ONE (03:05)
[2021-02-21] MEDS ORDERED: diphenhydrAMINE 50MG/ML VIAL (J1200) IV ONE (03:05)
[2021-02-21] MEDS ORDERED: KETOROLAC 30 MG/ML 1ML VIAL IV ONE (03:05)
[2021-02-21] MEDS ORDERED: METOCLOPRAMIDE INJ 10MG/2ML VIAL (J2765 PER 1) IV ONE (03:05)
[2021-02-21 06:15] VITALS: BP 166/92
--- NOTE | 2021-02-22 16:46 | ECGEPIP ---
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
== END 2021-02-21 07:10 | disposition home or self-care (01) ==
LOC: M ED 22:25
DX: S06.0X0A Concussion without loss of consciousness, initial encounter (principal); W22.8XXA Striking against or struck by other objects, initial encounter; Y92.410 Unspecified street and highway as the place of occurrence of the external cause; Y93.9 Activity, unspecified; Y99.9 Unspecified external cause status; Z87.81 Personal history of (healed) traumatic fracture; G31.89 Other specified degenerative diseases of nervous system; E11.9 Type 2 diabetes mellitus without complications; F10.10 Alcohol abuse, uncomplicated; F17.200 Nicotine dependence, unspecified, uncomplicated; Z79.84 Long term (current) use of oral hypoglycemic drugs; Z79.899 Other long term (current) drug therapy
CPT/HCPCS: 36415; 70450; 71101; 72125; 80048; 80076; 80143; 82077; 82140; 82550; 82553; 83605; 84443; 84484; 85025; 93005; 93041; 94760; 96361; 96374; 96375; 99285; J1200; J1885; J2765

== ENCOUNTER 2021-02-26 16:57 | Emergency (ER) | payer OTHER, MEDICAID ==
[~2021-02-26] VITALS: Ht 175.3 cm; Wt 79.5 kg
[2021-02-26 17:15] VITALS: BP 160/96
== END 2021-02-26 18:14 | disposition left against medical advice (07) ==
LOC: M ED 16:57
DX: S09.90XA Unspecified injury of head, initial encounter (principal); W19.XXXA Unspecified fall, initial encounter; Y92.9 Unspecified place or not applicable; Y93.9 Activity, unspecified; Y99.9 Unspecified external cause status; Z53.21 Procedure and treatment not carried out due to patient leaving prior to being seen by health care provider

== ENCOUNTER 2021-02-27 20:50 | Inpatient (IN) | payer OTHER, MEDICAID ==
[~2021-02-27] VITALS: Ht 175.3 cm; Wt 87.6 kg
[2021-02-27] MEDS ORDERED: LORazepam 2 MG TAB PO PRN (22:00)
--- NOTE | 2021-02-27 22:58 | REPVR ---
PROCEDURE INFORMATION: Exam: XR Chest Exam date and time: 02/27/2021 10:38 PM Age: 56 years old Clinical indication: Other: SOB TECHNIQUE: Imaging protocol: XR of the chest. Views: 1 view. COMPARISON: 1. CR Ribs uni W-PA CHEST ONLY RIGHT 2021-02-20 23:14 2. CR Chest, 2 view PA, Lat 2021-01-14 05:[address] Chest without contrast 2021-01-07 13:54 4. CR PORTABLE CHEST X-RAY 2020-10-24 19:56 FINDINGS: Lungs: Hypoexpanded lungs with subsegmental dependent atelectasis. Pleural spaces: Unremarkable. No pleural effusion. No pneumothorax. Heart/Mediastinum: Unremarkable. No cardiomegaly. Bones/joints: Unremarkable. IMPRESSION: Hypoexpanded lungs with subsegmental dependent atelectasis. Electronically signed by: Juaquin Whitley On 02/27/2021 22:57:39 PM
[2021-02-27 23:26] LABS: BASO % 0.1 % (0.0-1.0); EOS % 0.1 % (0.0-3.0); HEMATOCRIT 22.5 % (42.0-52.0); HEMOGLOBIN 7.7 g/dl (13.5-17.5); LYMPH # 0.9 10^3/uL (1.5-5.0); LYMPH % 12.3 % (24.0-44.0); MEAN CORPUSCULAR HEMOGLOBIN 33.9 pg (27.0-33.0); MEAN CORPUSCULAR HGB CONC 34.2 g/dl (32.0-36.5); MEAN CORPUSCULAR VOLUME 99.1 fl (80.0-96.0); MONO # 0.4 10^3/uL (0.0-0.8); MONO % 6.1 % (2.0-8.0); NEUTROPHILS # 5.7 10^3/uL (1.5-8.5); PLATELET COUNT, AUTOMATED 111 10^3/uL (150-450); RED BLOOD COUNT 2.27 10^6/uL (4.30-6.10); WHITE BLOOD COUNT 7.1 10^3/uL (4.0-10.0)
[2021-02-27 23:36] LABS: INR 1.6; PARTIAL THROMBOPLASTIN TIME 34.5 SECONDS (24.2-38.5); PROTHROMBIN TIME 19.4 SECONDS (12.5-14.3)
[2021-02-27 23:53] LABS: ALBUMIN 1.3 GM/DL (3.2-5.2); ALT/SGPT 18 U/L (12-78); BILIRUBIN,DIRECT 0.2 MG/DL (0.0-0.2); BILIRUBIN,TOTAL 0.3 MG/DL (0.2-1.0); CK-MB VALUE MASS 10.3 NG/ML (<3.6); CPK CREATINE PHOSPHOKINASE 114 U/L (39-308); ETHYL ALCOHOL (ETHANOL) 0.064 % (0.000-0.010); LIPASE 13 U/L (73-393); MB/CK RELATIVE INDEX 9.04 (< OR =4); NT-PRO BNP 6062 PG/ML (<125); TROPONIN I < 0.02 NG/ML (< 0.10)
[2021-02-28] VITALS (8 sets, daily range): BP systolic 140–176; BP diastolic 80–97
--- NOTE | 2021-02-28 00:30 | REPVR ---
PROCEDURE INFORMATION: Exam: CT Abdomen And Pelvis Without Contrast Exam date and time: 02/27/2021 12:06 AM Age: 56 years old Clinical indication: Abdominal pain; Localized; Lower; Additional info: Trauma; Lower abdominal pain TECHNIQUE: Imaging protocol: Computed tomography of the abdomen and pelvis without contrast. Radiation optimization: All CT scans at this facility use at least one of these dose optimization techniques: automated exposure control; mA and/or kV adjustment per patient size (includes targeted exams where dose is matched to clinical indication); or iterative reconstruction. COMPARISON: 1. CT ABD PELVIS W/O CONTRAST 2021-01-06 02:[address] ABD/PEL W/IV ORAL CONTRAS 2020-10-21 16:25 FINDINGS: Limitations: Study is limited by the absence of contrast. Study is limited by the absence of contrast. Pleural spaces: Moderate pleural effusions with associated atelectasis. Liver: Normal. No mass. Gallbladder and bile ducts: Normal. No calcified stones. No ductal dilation. Pancreas: Normal. No ductal dilation. Spleen: Normal. No splenomegaly. Adrenal glands: Normal. No mass. Kidneys and ureters: Normal. No hydronephrosis. Stomach and bowel: Rex-en-Y gastric bypass surgical changes in the left upper abdomen. Excess stool in the colon/constipation. Appendix: No evidence of appendicitis. Intraperitoneal space: Moderate ascites. Vasculature: IVC filter. Lymph nodes: Unremarkable. No enlarged lymph nodes. Urinary bladder: Unremarkable as visualized. Reproductive: Unremarkable as visualized. Bones/joints: Previous ORIF right iliac and acetabulum. Advanced right hip degenerative joint disease. Several rib fractures, refer to CT chest. Moderate lumbar facet arthropathy. L3-S1 degenerative disc and joint disease with minimal L4-L5 anterolisthesis. Soft tissues: Diffuse anasarca. IMPRESSION: 1. Diffuse anasarca. 2. Moderate ascites. 3. Excess stool in the colon/constipation. COMMENTS: For patients with an IVC filter, recommend assessment for a management plan for the patient's IVC filter. If there is no established management plan, recommend referral to an interventional clinician on a nonemergent basis for evaluation. Electronically signed by: Juaquin Whitley On 02/28/2021 00:29:27 AM
--- NOTE | 2021-02-28 00:33 | REPVR ---
PROCEDURE INFORMATION: Exam: CT Chest Without Contrast; Diagnostic Exam date and time: 02/27/2021 12:06 AM Age: 56 years old Clinical indication: Chest wall pain; Additional info: Trauma; Right chest wall pain TECHNIQUE: Imaging protocol: Diagnostic computed tomography of the chest without contrast. Radiation optimization: All CT scans at this facility use at least one of these dose optimization techniques: automated exposure control; mA and/or kV adjustment per patient size (includes targeted exams where dose is matched to clinical indication); or iterative reconstruction. COMPARISON: 1. CT Chest without contrast 2021-01-07 13:54 2. CR Chest, 1 view 2021-02-27 22:23 FINDINGS: Lungs: See "Pleural spaces" finding. Mild patchy ground-glass lung opacities. Pleural spaces: Moderate bilateral pleural effusions with associated compressive pulmonary atelectasis. Heart: Unremarkable. No cardiomegaly. No pericardial effusion. Aorta: Unremarkable. No aortic aneurysm. Lymph nodes: Unremarkable. No enlarged lymph nodes. Bones/joints: Numerous chronic rib fractures. Lower cervical fusion. Subacute appearing to chronic right 2nd to 6th rib fractures. The right anterolateral 5th rib fracture appears potentially recent, correlate for point tenderness. Chronic left lateral and posterior rib fractures. Soft tissues: Diffuse anasarca. IMPRESSION: 1. Diffuse anasarca. Moderate bilateral pleural effusions with associated compressive pulmonary atelectasis. 2. Subacute appearing to chronic right 2nd to 6th rib fractures. 3. The right anterolateral 5th rib fracture appears potentially recent, correlate for point tenderness. 4. Mild patchy ground-glass lung opacities. Electronically signed by: Juaquin Whitley On 02/28/2021 00:32:56 AM
[2021-02-28] MEDS ORDERED: GABA600T4 PO (02:45)
--- NOTE | 2021-02-28 03:25 | REPVR ---
PROCEDURE INFORMATION: Exam: CT Head Without Contrast Exam date and time: 02/28/2021 3:05 AM Age: 56 years old Clinical indication: Injury or trauma; Fall; Blunt trauma (contusions or hematomas) TECHNIQUE: Imaging protocol: Computed tomography of the head without contrast. Radiation optimization: All CT scans at this facility use at least one of these dose optimization techniques: automated exposure control; mA and/or kV adjustment per patient size (includes targeted exams where dose is matched to clinical indication); or iterative reconstruction. COMPARISON: 1. CT Head without contrast 2021-02-20 23:[address] Head without contrast 2021-01-05 22:18 FINDINGS: Brain: Chronic left frontal parietal infarct. Moderate cerebral volume loss and mild chronic white matter disease. Cerebral ventricles: Ex vacuo ventricular enlargement. Paranasal sinuses: Visualized sinuses are unremarkable. No fluid levels. Mastoid air cells: Visualized mastoid air cells are well aerated. Bones/joints: Unremarkable. No acute fracture. Soft tissues: Unremarkable. IMPRESSION: No acute intracranial abnormality. Electronically signed by: Juaquin Whitley On 02/28/2021 03:25:13 AM
[2021-02-28] MEDS ORDERED: LORazepam 2 MG TAB PO PRN (03:30)
[2021-02-28] MEDS ORDERED: MAALOX 30 ML SUSP *UDC PO PRN (03:30)
[2021-02-28] MEDS ORDERED: FUROSEMIDE 40MG/4ML VIAL (J1940) IV SCH (03:30)
[2021-02-28] MEDS ORDERED: DEXTROSE 50% 50 ML SYRINGE IV PRN (03:30)
[2021-02-28] MEDS ORDERED: ACETAMINOPHEN TAB 650MG DOSE (2X325MG) PO PRN (03:30)
[2021-02-28] MEDS ORDERED: MOM 30ML SUSPENSION UDC PO PRN (03:30)
[2021-02-28] MEDS ORDERED: GLUCAGON INJ 1MG VIAL SC PRN (03:30)
--- NOTE | 2021-02-28 03:31 | REPVR ---
PROCEDURE INFORMATION: Exam: CT Cervical Spine Without Contrast Exam date and time: 02/28/2021 3:05 AM Age: 56 years old Clinical indication: Injury or trauma; Fall; Blunt trauma TECHNIQUE: Imaging protocol: Computed tomography images of the cervical spine without contrast. Radiation optimization: All CT scans at this facility use at least one of these dose optimization techniques: automated exposure control; mA and/or kV adjustment per patient size (includes targeted exams where dose is matched to clinical indication); or iterative reconstruction. COMPARISON: 1. CT Spine,cervical w/o contrast 2021-02-20 23:[address] Chest without contrast 2021-02-28 00:04 FINDINGS: Bones/joints: Straightening of the normal cervical lordotic curvature. Normal vertebral body heights and alignments. No fractures. 3 mm C3-C4 retrolisthesis. C5-C7 ACDF. Discs/Spinal canal/Neural foramina: Degenerative disc osteophyte complexes greatest at C3-C5 with up to mild moderate spinal/foraminal stenosis. Sinuses: Mild maxillary sinus mucosal thickening. Lungs: Lung apices are normal. Soft tissues: Unremarkable. IMPRESSION: No acute fracture/subluxation. Electronically signed by: Juaquin Whitley On 02/28/2021 03:30:49 AM
[2021-02-28 03:49] LABS: RSV AMPLIFICATION NEGATIVE (NEGATIVE)
--- NOTE | 2021-02-28 04:30 | HPEPDOC ---
[facility] Medical History & Physical Date of Admission Feb 28, 2021 Date of Service: Feb 28, 2021 Primary Care Physician: Laci Dumont M.D. Attending Physician: RUPESH BREAUX MD History and Physical CHIEF COMPLAINT: Fall at home, unable to get up HISTORY OF PRESENT ILLNESS: Mr. Fraire is a 56-year-old male who is brought to the ER by EMS when his neighbor found him on the floor home. The patient is not sure what happened. He says he falls at home all the time. He admits to drinking 3 Naddy Daddy's (24 oz of 8% alcohol) today. He mentions falling down the stairs yesterday. Blood alcohol level on arrival was 0.064. Patient is a very poor historian, although he is oriented 3. Details of history are obtained from the review of the medical record as well as from the patient. He was recently admitted at the end of December with complaints of weakness in his legs. He was found to be malnourished with severe hypoalbuminemia and protein calorie malnutrition and was treated for generalized anasarca with albumin and Lasix. He presents today with the same type of symptoms. Albumin today is 1.3. CT of the chest, abdomen and pelvis shows diffuse anasarca and moderate bilateral pleural effusions. He had a thoracentesis done last admission and had suspicion for possible lung cancer. Pleural fluid was negative for malignancy, however. He had an elevated carcinoembryonic antigen, which will need to be followed up as outpatient by an oncologist. Patient states he has had no follow-up since last admission. He was also treated for GI bleed last admission with resulting hypotension, acute kidney injury and acute blood loss anemia with a hemoglobin of 5.4. He underwent EGD and had a clip placed on a GE junction bleeding ulcer. He was also diagnosed with C. difficile and was treated with oral vancomycin. There is suspicion for cirrhosis with fibroscan score of F2-4 which suggested significant fibrosis. He was instructed to follow-up as an outpatient for a definitive cirrhosis diagnosis via liver biopsy. Again, the patient has had no follow-up. On initial evaluation, the patient underwent trauma workup including CT scan of the head which showed no acute intracranial abnormality. CT of the cervical spi ne was also negative for acute fracture or subluxation. CT scan of the chest again show diffuse anasarca and moderate bilateral pleural effusions with associated compressive pulmonary atelectasis. Right fifth rib fracture was noted and appears to be potentially recent. The patient was noted to have ecchymosis at the right chest with swelling at the right lateral chest. There were subacute appearing right second to sixth rib fractures. CT again noted. Mild patchy groundglass opacities. CT of the abdomen and pelvis showed moderate ascites and excess stool in the colon suggesting constipation. The patient actually complained of diarrhea. Chest x-ray was significant for hypoexpanded lungs with subsegmental dependent atelectasis. Hemoglobin and hematocrit were 7.7 and 22.5. There was no obvious active bleeding. White blood cell count 7.1. Platelets are decreased in the 111. LFTs were significant for an elevated alk phosphatase at 186. His ammonia was within normal limits this admission. BNP is elevated at 6062 with a history of diastolic congestive heart failure per echocardiogram in November 2020. Protein is decreased at 4 and total albumin is 1.3. Patient's vital signs were significant for elevation of blood pressure 165/83. Patient did mention to EMS, and one staff member in the ER that he wished he could because he is tired of dealing with all of his chronic problems. PAST MEDICAL HISTORY: 1. Hepatitis C 2. Hypertension. 3. Diabetes. 4. Chronic neck and back pain. 5. Congestive heart failure, diastolic, with preserved ejection fraction per echocardiogram on 11/29. 6. Iron deficiency. 7. B12 deficiency. 8. Gastroesophageal reflux disease. 9. Peptic ulcer disease. 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 11. Diverticulitis. 12. Pancreatitis. 13. Crohn's disease. 14. Sensorimotor polyneuropathy. 15. Ongoing alcohol abuse. 16. Dyslipidemia. 17. C. difficile PAST SURGICAL HISTORY: 1. Right knee surgery. 2. Bilateral inguinal hernia. 3. Vasectomy. 4. Gastric bypass. 5. Right ankle surgery. 6. Right hip surgery. 7. Right fifth finger surgery. 8. Right shoulder surgery. 9. Cervical discectomy. 10. Carpal tunnel SOCIAL HISTORY: Tobacco use:. Patient admits to smoking about 5 cigarettes per day. ETOH: Drinks 3-4 Naddy Travis's daily Illicit drug use: Denies Patient lives with: Alone FAMILY HISTORY: . Patient's father at age 65 with coronary artery disease. His mother also at 65 with a history of COPD and breast cancer REVIEW OF SYSTEMS: Complete 10 point review systems is negative except as noted above PHYSICAL EXAMINATION: Patient is seen in the ER, lying on the stretcher.. He is alert and oriented x 3. . He has some significant generalized anasarca. HEENT is remarkable for bruising and his chin and right lower jaw.. There is some swelling but the area is not tender to touch. Neck is supple. Lungs are clear to auscultation. . He has ecchymosis at the right lower chest and lateral chest. Tender to palpation. Heart regular rate and rhythm without murmur. Abdomen is soft, somewhat tender to palpation diffusely with bowel sounds positive. Extremities with 2+ edema and erythema extending from the toes to the knees. This appears to be secondary to edema and not acute infection, although he has multiple areas of superficial scratches and lacerations. He has some eschar on 3-4 toes bilateral feet. Pedal pulses are positive. Skin is warm and dry with no obvious rash or lesion. Neuro: Stocking type neuropathy in the bilateral lower extremities. Psych: Patient intends to be cooperative throughout the exam. ASSESSMENT AND PLAN: 1. Anemia, acute, secondary to acute blood loss with hemodilution as well as chronic anemia with iron deficiency and B12 deficiency. Will type and screen and continue to monitor hemoglobin and hematocrit closely. Will transfuse if needed. Continue iron and B12 supplementations. 2. Severe protein calorie malnutrition in the setting of ongoing alcohol abuse with severe hypoalbuminemia. Will treat patient with albumin and Lasix and monitor intake and output closely. Will consult nutrition and add dietary supplement. Continue multivitamin, folic acid and thiamine. 3. Falls at home with ongoing alcohol abuse and debilitation with severe protein calorie malnutrition. Will ask physical and occupational therapies to evaluate and treat. Falls precautions. 4. Possible suicidal ideation. Suicide precautions. Psychiatry to evaluate. 5. Acute exacerbation of diastolic congestive heart failure with preserved ejection fraction with elevated BNP. Plan as outlined above. Intrinsic and output closely. 6. Diabetes type 2, [id number] with hyperglycemia. Hold metformin while hospitalized. Will monitor blood glucose before meals and at bedtime and add sliding scale for use as needed. Hemoglobin A1c was 9 in November. Patient may need insulin but with history of medical noncompliance he would need a great deal of education and support. Will recheck HbA1c in the morning. 7. Thrombus cytopenia in the setting of ongoing alcohol abuse. Continue to monitor with daily labs. 8. Bilateral pleural effusions. Continue diuresis with albumin and Lasix. Oxygen available as needed. 9. Hypertension. Continue home dose of carvedilol. Monitor with routine vital signs and adjust medications as needed based on trends. 10. Gastroesophageal reflux disease/peptic ulcer disease. Continue Protonix and Carafate. 11. Sensorimotor polyneuropathy secondary to poorly controlled diabetes and alcohol abuse. Continue gabapentin and supportive care. 12. Severe constipation. Patient complaining of diarrhea. Treated for Clostridium difficile last admission. Not known if patient completed treatment after discharge. We'll continue contact precautions and recheck stool. 13. DVT prophylaxis. Will add Lovenox. CODE STATUS: CODE STATUS was discussed with the patient. He desires to be considered full code. He states his vamzst-ly-itr, Jazmin Shay, with ectasis ergot if he were unable to make his own decisions. Patient is considered high risk of further deterioration including worsening heart failure or respiratory arrest. He is admitted as inpatient and expected to remain at least 2-3 midnight. Vital Signs Vital Signs Date Time Temp Pulse Resp B/P (MAP) Pulse Ox O2 Delivery O2 Flow Rate FiO2 02/28/21 01:05 87 02/28/21 01:00 165/83 (110) 02/27/21 23:50 97 02/27/21 21:08 96.8 16 Room Air Laboratory Data Labs 24H Laboratory Tests 2 02/27/21 21:21: Bedside Glucose (Misc Panel) 459H 02/27/21 23:11: Immature Granulocyte % (Auto) 0.4, Neutrophils (%) (Auto) 81.0H, Lymphocytes (%) (Auto) 12.3L, Monocytes (%) (Auto) 6.1, Eosinophils (%) (Auto) 0.1, Basophils (%) (Auto) 0.1, Neutrophils # (Auto) 5.7, Lymphocytes # (Auto) 0.9L, Monocytes # (Auto) 0.4, Eosinophils # (Auto) 0.0, Basophils # (Auto) 0.0, Nucleated Red Blood Cells % (auto) 0.0, Prothrombin Time 19.4H, Prothromb Time International Ratio 1.60, Activated Partial Thromboplast Time 34.5, Total Bilirubin 0.3, Direct Bilirubin 0.2, Aspartate Amino Transf (AST/SGOT) 19, Alanine Aminotransferase (ALT/SGPT) 18, Alkaline Phosphatase 186H, Ammonia 32, Total Creatine Kinase 114, Creatine Kinase MB 10.3H, Creatine Kinase MB Relative Index 9.04H, Troponin I < 0.02, MC-Zfs-X-Type Natriuretic Peptide 6062H, Total Protein 4.0L, Albumin 1.3L, Albumin/Globulin Ratio 0.5, Lipase 13L, Ethyl Alcohol Level 0.064H 02/27/21 23:17: POC Glucose (Misc Panel) 470H, POC Sodium (Misc Panel) 138, POC Potassium (Misc Panel) 4.0, POC Chloride (Misc Panel) 100, POC Total CO2 (Misc Panel) 20.0L, POC Blood Urea Nitrogen (Misc Panel 13, POC Ionized Calcium (Misc Panel) 4.4L, POC Creatinine (Misc Panel) 1.2, POC Hematocrit (Misc Panel) 24.0L 02/28/21 02:52: Coronavirus (COVID-19)(PCR) NEGATIVE, Influenza Type A (RT-PCR) NEGATIVE, Influenza Type B (RT-PCR) NEGATIVE, Respiratory Syncytial Virus (PCR) NEGATIVE CBC/BMP Laboratory Tests 02/27/21 23:11 Home Medications Scheduled Carvedilol (Carvedilol) 3.125 Mg Tablet, 3.125 MG PO BID TAKES WITH 12.5MG FOR 15.625MG TOTAL Carvedilol (Carvedilol) 25 Mg Tablet, 12.5 MG PO BID TAKES WITH 3.125MG FOR 15.625MG TOTAL Gabapentin (Gabapentin) 600 Mg Tablet, 600 MG PO TID Omeprazole (Omeprazole) 40 Mg Capsule.dr, 40 MG PO DAILY Ropinirole HCl (Ropinirole HCl) 0.5 Mg Tablet, 1 MG PO QHS Sucralfate (Sucralfate) 1 Gm Tablet, 1 GM PO BID Allergies Coded Allergies: No Known Allergies (Unverified , 08/22/20) A-FIB/CHADSVASC A-FIB History Current/History of A-Fib/PAF?: No JOSUE GRIDER Feb 28, 2021 04:30
[2021-02-28 05:22] LABS: HEMOGLOBIN A1c 8.5 %
[2021-02-28] MEDS ORDERED: MIRALAX *UNIT DOSE* 17GM PACKET PO PRN (08:55)
[2021-02-28] MEDS ORDERED: DOCUSATE SODIUM 100MG CAPSULE PO SCH (09:00)
[2021-02-28] MEDS: FOLIC ACID 1 MG TAB PO SCH (09:01)
[2021-02-28] MEDS: ENOXAPARIN 40MG/0.4ML SYRINGE (J1650 PER 10MG) SC SCH (09:01)
[2021-02-28] MEDS: PANTOPRAZOLE 40MG TAB (PROTONIX) PO SCH (09:01)
[2021-02-28] MEDS: SUCRALFATE SUSP 1GM/10ML UD PO SCH ×4 (09:01→21:33)
[2021-02-28] MEDS: MULTIVITAMINS/MINERALS THERAP 1 TAB PO SCH (09:01)
[2021-02-28] MEDS: THIAMINE 100 MG TAB PO SCH ×2 (09:01→21:33)
[2021-02-28] MEDS: HumaLOG INSULIN (NovoLOG) PER UNIT SC SCH ×3 (09:02→17:25)
[2021-02-28 09:39] LABS: HEMATOCRIT 26.1 % (42.0-52.0); HEMOGLOBIN 8.9 g/dl (13.5-17.5); MEAN CORPUSCULAR HEMOGLOBIN 33.5 pg (27.0-33.0); MEAN CORPUSCULAR HGB CONC 34.1 g/dl (32.0-36.5); MEAN CORPUSCULAR VOLUME 98.1 fl (80.0-96.0); RED BLOOD COUNT 2.66 10^6/uL (4.30-6.10); WHITE BLOOD COUNT 5.6 10^3/uL (4.0-10.0)
[2021-02-28 10:02] LABS: ERYTHROCYTE SEDIMENTATION RATE 13 mm/hr (0-20)
[2021-02-28 10:03] LABS: PLATELET COUNT, AUTOMATED 94 10^3/uL (150-450)
[2021-02-28 10:12] LABS: ALBUMIN 1.4 GM/DL (3.2-5.2); ALT/SGPT 17 U/L (12-78); BILIRUBIN,TOTAL 0.4 MG/DL (0.2-1.0); BLOOD UREA NITROGEN 12 MG/DL (7-18); C REACTIVE PROTEIN QUANTITATIV 4.33 MG/DL (0.00-0.30); CALCIUM LEVEL 6.9 MG/DL (8.5-10.1); CARBON DIOXIDE LEVEL 24 MEQ/L (21-32); CHLORIDE LEVEL 110 MEQ/L (98-107); CREATININE FOR GFR 0.95 MG/DL (0.70-1.30); FERRITIN 268 NG/ML (26-388); GLOMERULAR FILTRATION RATE > 60.0 (>56); GLUCOSE, FASTING 374 MG/DL (70-100); IRON (FE) 35 UG/DL (65-175); PERCENT SATURATION 67.3 % (19.7-50.0); POTASSIUM SERUM 3.6 MEQ/L (3.5-5.1); SODIUM LEVEL 140 MEQ/L (136-145); TOTAL IRON BINDING CAPACITY 52 UG/DL (250-450); TOTAL PROTEIN 4.3 GM/DL (6.4-8.2)
[2021-02-28] MEDS: VANCOMYCIN HCL 1,000 MG, VIAL MATE ADAPTER 1 EACH in NS 250 ML IV SCH ×2 (11:54→18:47)
[2021-02-28] MEDS ORDERED: VANCOMYCIN HCL 500 MG in D5W MINI-BAG PLUS 100 ML IV ONE (12:00)
--- NOTE | 2021-02-28 14:29 | ECGEPIP ---
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
--- NOTE | 2021-02-28 15:09 | IPNPDOC ---
Subjective Date Seen The patient was seen on 02/28/21. Subjective Chief Complaint/HPI Mr. Kaye is a 56 year old male with hepatitis C, hypertension, DM, WPW syndrome, alcohol abuse, and Crohn's disease who is here with anasarca and SI. This morning, he denies chest pain or worsening dyspnea. He still feels physically weak. Otherwise, he is pain from multiple ulcers on his feet. There is some erythema. Will start on antibiotics for cellulitis and order MRI feet to look for osteomyelitis. Objective Physical Examination General Exam: Positive: Alert, Cooperative Eye Exam: Positive: EOMI Neck Exam: Positive: Supple Chest Exam: Positive: Clear to auscultation Heart Exam: Positive: Rate Normal, Regular Rhythm Abdomen Exam: Positive: Normal bowel sounds, Soft, Tenderness (mild tenderness) Extremity Exam: Positive: Edema (Bilateral pitting edema) Skin Exam: Positive: Other skin issue (Right 2nd toe with ulceration and erythe ma. 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 Kaye is a 56 year old male with hepatitis C, hypertension, DM, WPW syndrome, alcohol abuse, and Crohn's disease who is here with anasarca and SI. Patient has hepatic dysfunction with elevated INR and low albumin. Low albumin most likely causing his anasarca. Patient will be give albumin with Lasix to help with diuresis. Other consideration would be nephropathy causing low albumin and total protein. Will check UA for nephropathy. Otherwise, patient has multiple foot ulcers with erythema. The most concerning one is the right 2nd toe. It looks deep. There is erythema and tenderness around it. Blood cultures x2 ordered. CRP is elevated. Ordered for vancomycin for cellulitis and MRI of feet too look for osteomyelitis. Patient reported SI. Patient is on suicide precaution. Will consult psych when patient is medically stable. Since patient is receiving IV Lasix, albumin, and IV antibiotics, not yet stable. Plan/VTE VTE Prophylaxis Ordered?: Yes Plan 1. Liver dysfunction -History of hepatitis C -Patient still drinks alcohol -Albumin low and INR elevated -Patient will need to follow up with GI outpatient for evaluation of Cirrhosis 2. Low albumin -Most likely from liver dysfunction -Given patient's history of DM, can also consider nephropathy -Order for UA -Albumin to be given with Lasix 3. Anasarca -Secondary to low albumin -Diuresis with albumin and lasix 4. Protein calorie malnutrition -Dietary consultation ordered -Added on prealbumin for tomorrow's labs 5. Cellulitis of ulcers on legs bilaterally -Right 2nd toe ulcer is main concern -Blood cultures x2 ordered -Vancomycin -MRI foot ordered 6. Suicidal ideation -Sitter in place -When patient is medically stable, will consult psychiatry 7. Diabetes mellitus -HbA1c 8.5 -Continue sliding scale insulin 8. Alcohol use disorder -Thiamine, folic acid, multivitamin -CIWA protocol 9. DVT ppx -Lovenox Disposition: Pending clinical improvement and MRI. Will need to consult psychiatry when medically stable. VS, I&O, 24H, Fishbone Vital Signs/I&O Vital Signs Date Time Temp Pulse Resp B/P (MAP) Pulse Ox O2 Delivery O2 Flow Rate FiO2 02/28/21 09:54 96.9 98 17 167/97 (120) 98 Room Air Laboratory Data 24H LABS Laboratory Tests 2 02/27/21 21:21: Bedside Glucose (Misc Panel) 459H 02/27/21 23:11: Immature Granulocyte % (Auto) 0.4, Neutrophils (%) (Auto) 81.0H, Lymphocytes (%) (Auto) 12.3L, Monocytes (%) (Auto) 6.1, Eosinophils (%) (Auto) 0.1, Basophils (%) (Auto) 0.1, Neutrophils # (Auto) 5.7, Lymphocytes # (Auto) 0.9L, Monocytes # (Auto) 0.4, Eosinophils # (Auto) 0.0, Basophils # (Auto) 0.0, Nucleated Red Blood Cells % (auto) 0.0, Prothrombin Time 19.4H, Prothromb Time International Ratio 1.60, Activated Partial Thromboplast Time 34.5, Estimated Mean Plasma Glucose 197H, Hemoglobin A1c 8.5, Total Bilirubin 0.3, Direct Bilirubin 0.2, Aspartate Amino Transf (AST/SGOT) 19, Alanine Aminotransferase (ALT/SGPT) 18, Alkaline Phosphatase 186H, Ammonia 32, Total Creatine Kinase 114, Creatine Kinase MB 10.3H, Creatine Kinase MB Relative Index 9.04H, Troponin I < 0.02, XI-Vpk-I-Type Natriuretic Peptide 6062H, Total Protein 4.0L, Albumin 1.3L, Al bumin/Globulin Ratio 0.5, Lipase 13L, Ethyl Alcohol Level 0.064H 02/27/21 23:17: POC Glucose (Misc Panel) 470H, POC Sodium (Misc Panel) 138, POC Potassium (Misc Panel) 4.0, POC Chloride (Misc Panel) 100, POC Total CO2 (Misc Panel) 20.0L, POC Blood Urea Nitrogen (Misc Panel 13, POC Ionized Calcium (Misc Panel) 4.4L, POC Creatinine (Misc Panel) 1.2, POC Hematocrit (Misc Panel) 24.0L 02/28/21 02:52: Coronavirus (COVID-19)(PCR) NEGATIVE, Influenza Type A (RT-PCR) NEGATIVE, Influenza Type B (RT-PCR) NEGATIVE, Respiratory Syncytial Virus (PCR) NEGATIVE 02/28/21 08:45: Bedside Glucose (Misc Panel) 372H 02/28/21 09:16: Nucleated Red Blood Cells % (auto) 0.0, Immature Platelet Fraction 7.3, Erythrocyte Sedimentation Rate 13, Anion Gap 6L, Glomerular Filtration Rate > 60.0, Calcium Level 6.9L, Iron Level 35L, Total Iron Binding Capacity 52L, Transferrin % Saturation 67.3H, Ferritin 268, Total Bilirubin 0.4, Aspartate Amino Transf (AST/SGOT) 16, Alanine Aminotransferase (ALT/SGPT) 17, Alkaline Phosphatase 211H, C-Reactive Protein, Quantitative 4.33H, Total Protein 4.3L, Albumin 1.4L, Albumin/Globulin Ratio 0.5 02/28/21 11:22: Bedside Glucose (Misc Panel) 290H CBC/BMP Laboratory Tests 02/27/21 23:11 02/28/21 09:16 Microbiology Microbiology 02/28/21 Blood Culture, Received Pending 02/28/21 Blood Culture, Received Pending CRISTOFER SAM DO Feb 28, 2021 15:09
[2021-02-28] MEDS: FUROSEMIDE 40MG/4ML VIAL (J1940) IV SCH (16:04)
[2021-02-28] MEDS: MUPIROCIN 2% OINT 22 GM TUBE TOP SCH (16:11)
[2021-02-28] MEDS: NICOTINE 14 MG/24 HR TRANSDERMAL TD SCH (17:47)
[2021-02-28] MEDS: rOPINIRole 1MG TAB PO SCH (21:33)
[2021-03-01] VITALS (9 sets, daily range): BP systolic 110–172; BP diastolic 64–98
[2021-03-01] MEDS: FUROSEMIDE 40MG/4ML VIAL (J1940) IV SCH ×2 (00:05→18:41)
[2021-03-01] MEDS: VANCOMYCIN HCL 1,000 MG, VIAL MATE ADAPTER 1 EACH in NS 250 ML IV SCH ×3 (03:01→18:43)
[2021-03-01] MEDS: GLUCOSE 4GM CHEW TABLET PO PRN (06:21)
[2021-03-01] MEDS: HumaLOG INSULIN (NovoLOG) PER UNIT SC SCH ×3 (07:30→18:41)
[2021-03-01] MEDS: MULTIVITAMINS/MINERALS THERAP 1 TAB PO SCH (07:49)
[2021-03-01] MEDS: FOLIC ACID 1 MG TAB PO SCH (07:49)
[2021-03-01] MEDS: PANTOPRAZOLE 40MG TAB (PROTONIX) PO SCH (07:49)
[2021-03-01] MEDS: SUCRALFATE SUSP 1GM/10ML UD PO SCH ×4 (07:49→20:46)
[2021-03-01] MEDS: THIAMINE 100 MG TAB PO SCH ×2 (07:49→20:46)
[2021-03-01] MEDS: MUPIROCIN 2% OINT 22 GM TUBE TOP SCH (07:50)
[2021-03-01] MEDS: NICOTINE 14 MG/24 HR TRANSDERMAL TD SCH (07:50)
[2021-03-01] MEDS: ENOXAPARIN 40MG/0.4ML SYRINGE (J1650 PER 10MG) SC SCH (07:51)
--- NOTE | 2021-03-01 12:24 | IPNPDOC ---
Subjective Date Seen The patient was seen on 03/01/21. Subjective Chief Complaint/HPI Mr. Kaye is a 56 year old male with hepatitis C, hypertension, DM, WPW syndrome, alcohol abuse, and Crohn's disease who is here with anasarca, SI, and cellulitis. This morning, he denies any chest pain or dyspnea. Abdomen is tender to palpitation. He does have pitting edema of both his upper and lower extremities. Attempted albumin and Lasix diuresis, but lost IV access. Will need PICC. Otherwise, patient still receiving IV vancomycin for cellulitis of right 2nd toe. Pending MRI to look for osteomyelitis. Objective Physical Examination General Exam: Positive: Alert, Cooperative Eye Exam: Positive: EOMI Neck Exam: Positive: Supple Chest Exam: Positive: Clear to auscultation Heart Exam: Positive: Rate Normal, Regular Rhythm Abdomen Exam: Positive: Normal bowel sounds, Soft, Tenderness (mild tenderness) Extremity Exam: Positive: Edema (Bilateral pitting edema) Skin Exam: Positive: Other skin issue (Right 2nd toe with ulceration and erythema. Left foot ulcer with hide shaker erythema) Neuro Exam: Positive: Normal Speech Assessment /Plan Assessment Mr. Kaye is a 56 year old male with hepatitis C, hypertension, DM, WPW syndrome, alcohol abuse, and Crohn's disease who is here with anasarca and SI. Patient has hepatic dysfunction with elevated INR and low albumin. Low albumin most likely causing his anasarca. Patient will be give albumin with Lasix to help with diuresis. Otherwise, ruled out nephropathy, UA negative for protein. Otherwise, patient has multiple foot ulcers with erythema. The most concerning one is the right 2nd toe. It looks deep. There is erythema and tenderness around it. Blood cultures x2 ordered. CRP is elevated. Ordered for vancomycin for cellulitis and MRI of feet too look for osteomyelitis. Patient reported SI. Patient is on suicide precaution. Will consult psych when patient is medically stable. Since patient is receiving IV Lasix, albumin, and IV antibiotics, not yet stable. Plan/VTE VTE Prophylaxis Ordered?: Yes Plan 1. Liver dysfunction -History of hepatitis C -Patient still drinks alcohol -Albumin low and INR elevated -Patient will need to follow up with GI outpatient for evaluation of Cirrhosis 2. Low albumin -Most likely from liver dysfunction -Given patient's history of DM, can also consider nephropathy -Order for UA -Albumin to be given with Lasix 3. Anasarca -Secondary to low albumin -Diuresis with albumin and lasix 4. Protein calorie malnutrition -Dietary consultation ordered -Pending prealbumin 5. Cellulitis of ulcers on legs bilaterally -Right 2nd toe ulcer is main concern -Blood cultures x2 ordered -Vancomycin -MRI foot ordered 6. Suicidal ideation -Sitter in place -When patient is medically stable, will consult psychiatry 7. Diabetes mellitus -HbA1c 8.5 -Continue sliding scale insulin 8. Alcohol use disorder -Thiamine, folic acid, multivitamin -CIWA protocol 9. DVT ppx -Lovenox Disposition: Pending clinical improvement and MRI. Will need to consult psychiatry when medically stable. VS, I&O, 24H, Fishbone Vital Signs/I&O Vital Signs Date Time Temp Pulse Resp B/P (MAP) Pulse Ox O2 Delivery O2 Flow Rate FiO2 03/01/21 10:00 97.3 82 18 145/89 (107) 100 Room Air I&O- Last 24 Hours up to 6 AM 03/01/21 06:00 Intake Total 2920.0 ml Output Total 2675 ml Balance 245.0 ml Laboratory Data 24H LABS Laboratory Tests 2 02/28/21 15:27: Clostridium difficile [id number] , Clostridium difficile Toxin (PCR) 02/28/21 16:47: Bedside Glucose (Misc Panel) 125H 02/28/21 17:45: Urine Color YELLOW, Urine Appearance CLEAR, Urine pH 5.0, Urine Specific [place] 1.009, Urine Protein NEGATIVE, Urine Glucose (UA) 2+H, Urine Ketones NEGATIVE, Urine Blood NEGATIVE, Urine Nitrite NEGATIVE, Urine Bilirubin NEGATIVE, Urine Urobilinogen 0.2, Urine Leukocyte Esterase NEGATIVE, Urine WBC (Auto) 1, Urine RBC (Auto) 0, Urine Hyaline Casts (Auto) 1, Urine Bacteria (Auto) NEGATIVE, Urine Squamous Epithelial Cells 0, Urine Mucus (Auto) SMALL, Urine Sperm (Auto) 02/28/21 19:52: Bedside Glucose (Misc Panel) 129H 03/01/21 11:38: Bedside Glucose (Misc Panel) 505*H Microbiology Microbiology 02/28/21 Stool Occult Blood (MONET) - Final, Complete 02/28/21 Blood Culture - Preliminary, Resulted No growth after 24 hours . All specim... 02/28/21 Blood Culture - Preliminary, Resulted No growth after 24 hours . All specim... CRISTOFER SAM DO Mar 01, 2021 12:24
[2021-03-01] MEDS ORDERED: LIDOCAINE 1% MDV 20ML VIAL As Ordered ONE (15:42)
[2021-03-01 17:41] LABS: VITAMIN B12 LEVEL 925 PG/ML (247-911)
[2021-03-01 18:35] LABS: HEMATOCRIT 25.3 % (42.0-52.0); HEMOGLOBIN 8.6 g/dl (13.5-17.5); MEAN CORPUSCULAR HEMOGLOBIN 33.7 pg (27.0-33.0); MEAN CORPUSCULAR VOLUME 99.2 fl (80.0-96.0); RED BLOOD COUNT 2.55 10^6/uL (4.30-6.10); WHITE BLOOD COUNT 7.5 10^3/uL (4.0-10.0)
[2021-03-01] MEDS ORDERED: FUROSEMIDE 40MG/4ML VIAL (J1940) IV ONE (18:45)
[2021-03-01 18:54] LABS: ALBUMIN 1.6 GM/DL (3.2-5.2); ALT/SGPT 16 U/L (12-78); BILIRUBIN,TOTAL 0.5 MG/DL (0.2-1.0); BLOOD UREA NITROGEN 13 MG/DL (7-18); CALCIUM LEVEL 6.6 MG/DL (8.5-10.1); CARBON DIOXIDE LEVEL 24 MEQ/L (21-32); CHLORIDE LEVEL 109 MEQ/L (98-107); CREATININE FOR GFR 0.87 MG/DL (0.70-1.30); GLOMERULAR FILTRATION RATE > 60.0 (>56); GLUCOSE, FASTING 47 MG/DL (70-100); MAGNESIUM LEVEL 1.2 MG/DL (1.8-2.4); POTASSIUM SERUM 3.3 MEQ/L (3.5-5.1); PREALBUMIN 3.1 MG/DL (20.0-40.0); SODIUM LEVEL 140 MEQ/L (136-145); TOTAL PROTEIN 4.2 GM/DL (6.4-8.2)
[2021-03-01 19:03] LABS: PLATELET COUNT, AUTOMATED 92 10^3/uL (150-450)
[2021-03-01] MEDS ORDERED: POTASSIUM CHLORIDE 10 MEQ SR TABLET PO ONE (20:00)
[2021-03-01] MEDS: MAG SULF 1GM/100ML (MAG RUN) 1 GM in IV 1 EA IV SCH ×2 (20:40→23:05)
[2021-03-01] MEDS: rOPINIRole 1MG TAB PO SCH (20:46)
[2021-03-02] VITALS (7 sets, daily range): BP systolic 110–152; BP diastolic 59–98
[2021-03-02] MEDS: MAG SULF 1GM/100ML (MAG RUN) 1 GM in IV 1 EA IV SCH ×2 (00:30→02:44)
[2021-03-02] MEDS ORDERED: MAGNESIUM SULFATE 1GM/100ML D5W BAG (10MG/ML) As Ordered ONE (02:42)
[2021-03-02] MEDS: SODIUM CHLORIDE 0.9% INJ 10 ML SYR IV SCH ×2 (06:43→18:06)
[2021-03-02 06:56] LABS: HEMATOCRIT 21.3 % (42.0-52.0); HEMOGLOBIN 7.3 g/dl (13.5-17.5); MEAN CORPUSCULAR HEMOGLOBIN 33.8 pg (27.0-33.0); MEAN CORPUSCULAR HGB CONC 34.3 g/dl (32.0-36.5); MEAN CORPUSCULAR VOLUME 98.6 fl (80.0-96.0); RED BLOOD COUNT 2.16 10^6/uL (4.30-6.10); WHITE BLOOD COUNT 4.1 10^3/uL (4.0-10.0)
[2021-03-02 07:13] LABS: ALBUMIN 1.5 GM/DL (3.2-5.2); ALT/SGPT 12 U/L (12-78); BILIRUBIN,TOTAL 0.4 MG/DL (0.2-1.0); BLOOD UREA NITROGEN 12 MG/DL (7-18); CALCIUM LEVEL 6.8 MG/DL (8.5-10.1); CARBON DIOXIDE LEVEL 26 MEQ/L (21-32); CHLORIDE LEVEL 109 MEQ/L (98-107); CREATININE FOR GFR 0.81 MG/DL (0.70-1.30); GLOMERULAR FILTRATION RATE > 60.0 (>56); GLUCOSE, FASTING 86 MG/DL (70-100); MAGNESIUM LEVEL 1.8 MG/DL (1.8-2.4); POTASSIUM SERUM 3.5 MEQ/L (3.5-5.1); SODIUM LEVEL 141 MEQ/L (136-145); TOTAL PROTEIN 3.8 GM/DL (6.4-8.2)
[2021-03-02 07:26] LABS: PLATELET COUNT, AUTOMATED 65 10^3/uL (150-450)
[2021-03-02] MEDS: HumaLOG INSULIN (NovoLOG) PER UNIT SC SCH ×3 (07:30→18:07)
[2021-03-02] MEDS: ENOXAPARIN 40MG/0.4ML SYRINGE (J1650 PER 10MG) SC SCH (08:17)
--- NOTE | 2021-03-02 08:40 | REP ---
PROCEDURE NAME: PICC LINE INSERTION W/SITERITE CLINICAL INFORMATION: poor access. COMPARISON: None. PROCEDURE DESCRIPTION: The procedure was performed by BE Diaz, under the direct supervision of Dr. York. The risks and benefits of the procedure were explained to the patient and an informed consent was obtained both verbally and written. Directly prior to the start of the procedure a formal time-out was completed in the procedure room. The right medial brachial vein was localized using ultrasound guidance. The skin was prepped and draped in sterile fashion. One mL of 1% lidocaine 10 mg/mL was used as a local anesthetic. Using ultrasound guidance the right medial brachial vein was cannulated, and a 0.018 guidewire was inserted and advanced to the level of SVC using fluoroscopic guidance. The needle was removed and a 5.5 [place] dilator and peel-away sheath was inserted over the guidewire. A 5.5 [place] dual lumen catheter was cut to a length of 42 cm. The dilator was removed and the catheter was inserted over the guidewire with the tip ending at the level of the SVC. The peel-away sheath was removed and the catheter was flushed with heparinized saline as per hospital protocol. The catheter was affixed to the skin and a sterile dressing was applied. The patient tolerated the procedure well and there were no immediate complications. CONCLUSION: PICC line insertion into the right medial brachial vein. 0.1 minutes of fluoroscopy time was utilized for this procedure. Some fluoroscopic images are performed with last image hold technology. These images require no additional radiation. <Electronically signed by Justina Olmedo > 03/01/21 [id number] <Electronically signed by Jose Juan York > 03/02/21 [id number]
[2021-03-02] MEDS: FOLIC ACID 1 MG TAB PO SCH (09:35)
[2021-03-02] MEDS: MULTIVITAMINS/MINERALS THERAP 1 TAB PO SCH (09:35)
[2021-03-02] MEDS: SUCRALFATE SUSP 1GM/10ML UD PO SCH ×4 (09:36→22:02)
[2021-03-02] MEDS: PANTOPRAZOLE 40MG TAB (PROTONIX) PO SCH (09:36)
[2021-03-02] MEDS: THIAMINE 100 MG TAB PO SCH ×2 (09:36→22:03)
[2021-03-02] MEDS: NICOTINE 14 MG/24 HR TRANSDERMAL TD SCH (09:37)
[2021-03-02] MEDS: MUPIROCIN 2% OINT 22 GM TUBE TOP SCH (09:37)
[2021-03-02] MEDS: VANCOMYCIN HCL 1,000 MG, VIAL MATE ADAPTER 1 EACH in NS 250 ML IV SCH ×2 (11:44→23:15)
[2021-03-02] MEDS ORDERED: TAMSULOSIN 0.4 MG CAP PO ONE (16:55)
--- NOTE | 2021-03-02 17:09 | IPNPDOC ---
Text Note Date of Service The patient was seen on 03/02/21. NOTE Subjective: Patient developed urinary retention with residual urine around 500 mL. no fever or chills overnight Objective: GENERAL APPEARANCE: NAD HEENT: no scleral icterus, no JVD, EOMI CARDIOVASCULAR: S1S2 LUNGS: CTA ABDOMEN: soft & not tender w palpitation MUSCULOSKELETAL: no cyanosis, bilateral nonpitting edema of lower extremities, unstageable wound of right second toe surrounded by erythema INTEGUMENT: no generalized pallor, multiple superficial wounds of distal legs NEUROLOGICAL: cranial nerve function from 2-12 intact intact, follows commands, speech not dysarthric Assessment and plan Pt is a 56 year old male with hepatitis C, hypertension, DM, WPW syndrome, alcohol abuse, and Crohn's disease who is here with anasarca and SI. Patient has hepatic dysfunction with elevated INR and low albumin. Ascites/EtOH abuse/hypoalbuminemia Most likely secondary to liver dysfunction secondary to EtOH abuse and history of hepatitis C superimposed with acute CHF given elevated BNP MELD score 12 CT from 02/28/21 showed Diffuse anasarca. Moderate ascites. Patient received treatment with IV albumin I will start Lasix and spironolactone Will proceed with diagnostic paracentesis tomorrow I's and O's We'll check alpha-fetoprotein Suicidal ideation Appreciate/agree with psych consult Deconditioning PT/OT Unstageable wound of right second toe Appreciate/agree with closed circuit screen watcher consult. There is concern for osteomyelitis. Await MRI Continue vancomycin IV Blood culture negative Type 2 diabetes -HbA1c 8.5 -Continue sliding scale insulin Alcohol use disorder -Thiamine, folic acid, multivitamin -CIWA protocol Normocytic Anemia Most likely secondary to multiple comorbidities and myelosuppression Hemoglobin dropped today to 7.3 Stool negative for blood Will repeat stool for occult blood H&H every 6 hours Hypokalemia Replaced Crohn's diseases Patient currently not on any medications for Crohn Follow-up with GI team in the outpatient settings Hypertension Blood pressures under control I intensified diuresis, Continue to monitor blood pressure Urinary retention Started Flomax VS,Fishbone, I+O VS, Fishbone, I+O Laboratory Tests 03/01/21 18:01 03/02/21 06:29 03/02/21 06:30 Vital Signs Date Time Temp Pulse Resp B/P (MAP) Pulse Ox O2 Delivery O2 Flow Rate FiO2 03/02/21 14:51 102 142/82 03/02/21 14:00 97.8 20 99 Room Air 03/01/21 18:59 97.0 I&O- Last 24 Hours up to 6 AM 03/02/21 06:00 Intake Total 2550.0 ml Output Total 2625 ml Balance -75.0 ml CHRIS MOSLEY DO Mar 02, 2021 17:09
[2021-03-02] MEDS ORDERED: POTASSIUM CHLORIDE 10 MEQ SR TABLET PO ONE (17:30)
[2021-03-02] MEDS: FUROSEMIDE 40MG/4ML VIAL (J1940) IV SCH (18:05)
[2021-03-02 18:39] LABS: HEMATOCRIT 24.3 % (42.0-52.0); HEMOGLOBIN 8.1 g/dl (13.5-17.5)
[2021-03-02] MEDS: rOPINIRole 1MG TAB PO SCH (22:02)
[2021-03-02] MEDS: IRON POLYSAC (NIFEREX) 150 MG CAP PO SCH (22:03)
[2021-03-02 23:36] LABS: HEMOGLOBIN 7.4 g/dl (13.5-17.5)
[2021-03-03] MEDS: FUROSEMIDE 40MG/4ML VIAL (J1940) IV SCH ×3 (01:08→17:39)
[2021-03-03] MEDS: SODIUM CHLORIDE 0.9% INJ 10 ML SYR IV PRN (01:09)
[2021-03-03 06:00] VITALS: BP 154/96
[2021-03-03] MEDS: SODIUM CHLORIDE 0.9% INJ 10 ML SYR IV SCH ×2 (06:37→17:40)
[2021-03-03 07:05] LABS: HEMATOCRIT 22.1 % (42.0-52.0); HEMOGLOBIN 7.6 g/dl (13.5-17.5); MEAN CORPUSCULAR HEMOGLOBIN 34.1 pg (27.0-33.0); MEAN CORPUSCULAR HGB CONC 34.4 g/dl (32.0-36.5); MEAN CORPUSCULAR VOLUME 99.1 fl (80.0-96.0); RED BLOOD COUNT 2.23 10^6/uL (4.30-6.10); WHITE BLOOD COUNT 4.1 10^3/uL (4.0-10.0)
[2021-03-03 07:06] LABS: PLATELET COUNT, AUTOMATED 55 10^3/uL (150-450)
[2021-03-03] MEDS: HumaLOG INSULIN (NovoLOG) PER UNIT SC SCH ×3 (07:30→17:39)
[2021-03-03 07:36] LABS: ALBUMIN 1.5 GM/DL (3.2-5.2); ALT/SGPT 13 U/L (12-78); BILIRUBIN,TOTAL 0.4 MG/DL (0.2-1.0); BLOOD UREA NITROGEN 13 MG/DL (7-18); CALCIUM LEVEL 6.8 MG/DL (8.5-10.1); CARBON DIOXIDE LEVEL 27 MEQ/L (21-32); CHLORIDE LEVEL 111 MEQ/L (98-107); CREATININE FOR GFR 0.87 MG/DL (0.70-1.30); GLOMERULAR FILTRATION RATE > 60.0 (>56); GLUCOSE, FASTING 88 MG/DL (70-100); MAGNESIUM LEVEL 1.5 MG/DL (1.8-2.4); POTASSIUM SERUM 3.3 MEQ/L (3.5-5.1); SODIUM LEVEL 142 MEQ/L (136-145)
[2021-03-03] MEDS: ENOXAPARIN 40MG/0.4ML SYRINGE (J1650 PER 10MG) SC SCH (07:51)
[2021-03-03] MEDS ORDERED: POTASSIUM CHLORIDE 10% LIQ 20 MEQ/15 ML UDC PO ONE (08:30)
[2021-03-03] MEDS ORDERED: MAG SULF 1GM/100ML (MAG RUN) 1 GM in IV 1 EA IV ONE (09:00)
[2021-03-03] MEDS: SUCRALFATE SUSP 1GM/10ML UD PO SCH ×4 (09:54→21:04)
[2021-03-03] MEDS: NICOTINE 14 MG/24 HR TRANSDERMAL TD SCH (09:56)
[2021-03-03] MEDS: FOLIC ACID 1 MG TAB PO SCH (09:57)
[2021-03-03] MEDS: SPIRONOLACTONE 50 MG TAB PO SCH (09:59)
[2021-03-03] MEDS: PANTOPRAZOLE 40MG TAB (PROTONIX) PO SCH (09:59)
[2021-03-03] MEDS: TAMSULOSIN 0.4 MG CAP PO SCH (09:59)
[2021-03-03] MEDS: MULTIVITAMINS/MINERALS THERAP 1 TAB PO SCH (09:59)
[2021-03-03 10:00] VITALS: BP 142/88
[2021-03-03] MEDS: IRON POLYSAC (NIFEREX) 150 MG CAP PO SCH ×2 (10:01→21:04)
[2021-03-03 10:26] LABS: HEMATOCRIT 23.8 % (42.0-52.0); HEMOGLOBIN 8.1 g/dl (13.5-17.5)
--- NOTE | 2021-03-03 11:40 | CR ---
CONSULTATION DATE: 03/03/2021 REASON FOR CONSULTATION: Right second toe ulcer and infection. HISTORY OF PRESENT ILLNESS: Mr. Fraire is a 56-year-old gentleman who was admitted on 02/28 due to fall from home and anemia for which he is currently being worked up. He notes there is an ulcer on his right second toe, he is not sure how long. He does have some pain to this area. PAST SURGICAL HISTORY: Significant for hepatitis C, hypertension, diabetes, chronic neck and back pain, congestive heart failure, iron deficiency and B12 deficiency, GERD, peptic ulcer disease, Luypv-Rbeapzryk-Jmtpp syndrome, diverticulitis, pancreatitis, Crohn's, polyneuropathy, history of alcohol abuse, dyslipidemia, history of C. Diff. PAST SURGICAL HISTORY: Right knee surgery, bilateral inguinal hernia, vasectomy, gastric bypass, right ankle surgery, right hip surgery, right fifth finger surgery, right shoulder surgery, cervical discectomy and carpal tunnel. SOCIAL HISTORY: Positive for tobacco use, positive for alcohol. FAMILY HISTORY: Heart disease and COPD. REVIEW OF SYSTEMS: He denies fevers or chills. PHYSICAL EXAMINATION: He has remained afebrile. LABS: White cell count is 4.1. Lower extremity examination, on the right side there is an ulcer of the right dorsal second toe with local erythema. There is some necrotic tissue extending to the tendon with some trace purulence. ASSESSMENT: A 56-year-old diabetic male with a right second toe ulcer and infection. TREATMENT: An excisional wound debridement was performed using a dermal curette to the right second toe including subcutaneous tissue and tendon. Wound dressings ordered including Vashe, Hydrofera Blue to be performed daily. This time will try to salvage the toe but did discuss that he may ultimately require amputation if wound does not improve.
[2021-03-03 12:34] VITALS: BP 148/90
[2021-03-03 14:00] VITALS: BP 152/98
--- NOTE | 2021-03-03 14:28 | IPNPDOC ---
Text Note Date of Service The patient was seen on 03/03/21. NOTE Subjective: Patient developed urinary incontinence with diarrhea. No fever or chills Objective: GENERAL APPEARANCE: NAD HEENT: no scleral icterus, plus JVD, EOMI CARDIOVASCULAR: S1S2 LUNGS: CTA ABDOMEN: soft & not tender w palpitation MUSCULOSKELETAL: no cyanosis, bilateral nonpitting edema of lower extremities, unstageable wound of right second toe surrounded by erythema INTEGUMENT: no generalized pallor, multiple superficial wounds of distal legs NEUROLOGICAL: cranial nerve function from 2-12 intact intact, follows commands, speech not dysarthric Assessment and plan Pt is a 56 year old male with hepatitis C, hypertension, DM, WPW syndrome, alcohol abuse, and Crohn's disease who is here with anasarca and SI. Patient has hepatic dysfunction with elevated INR and low albumin. Ascites/EtOH abuse/hypoalbuminemia Most likely secondary to liver dysfunction secondary to EtOH abuse and history of hepatitis C superimposed with possible acute CHF MELD score 12 CT from 02/28/21 showed Diffuse anasarca. Moderate ascites. Patient received treatment with IV albumin Continue Lasix and spironolactone diagnostic paracentesis on 03/03/21 I's and O's alpha-fetoprotein with in normal limit Acute diastolic CHF BNP elevated to 6000 Await echo Continue Lasix IV and spironolactone Suicidal ideation Appreciate/agree with psych consult Diarrhea Will check stool for C. difficile Deconditioning PT/OT Unstageable wound of right second toe Appreciate/agree with sheet rock applicator consult. There is concern for osteomyelitis. Await MRI Continue vancomycin IV Blood culture negative Ground [employer] team did debridement today. Wound dressings ordered including Vashe, Hydrofera Blue to be performed daily. Type 2 diabetes -HbA1c 8.5 -Continue sliding scale insulin Alcohol use disorder -Thiamine, folic acid, multivitamin -CIWA protocol Normocytic Anemia Most likely secondary to multiple comorbidities and myelosuppression Stool negative for blood Await repeated stool for occult blood H&H every 6 hours Hypokalemia Replaced Crohn's diseases Patient currently not on any medications for Crohn Follow-up with GI team in the outpatient settings Hypertension Blood pressures under control I intensified diuresis, Continue to monitor blood pressure Urinary retention Started Flomax VS,Fishbone, I+O VS, Fishbone, I+O Laboratory Tests 03/02/21 18:20 03/02/21 23:15 03/03/21 06:42 03/03/21 06:43 03/03/21 10:13 Vital Signs Date Time Temp Pulse Resp B/P (MAP) Pulse Ox O2 Delivery O2 Flow Rate FiO2 03/03/21 12:34 97.3 100 18 148/90 (109) 93 Room Air 03/01/21 18:59 97.0 I&O- Last 24 Hours up to 6 AM 03/03/21 06:00 Intake Total 1260 ml Output Total 1625 ml Balance -365 ml CHRIS MOSLEY DO Mar 03, 2021 14:28
[2021-03-03 14:31] LABS: APPEARANCE, BODY FLUID CLEAR (CLEAR); PERITONEAL FL COLOR COLORLESS (COLORLESS); SOURCE, BODY FLUID PERITONEAL
[2021-03-03 14:33] LABS: SOURCE, BODY FLUID ALBUMIN PERITONEAL; SOURCE, BODY FLUID GLUCOSE PERITONEAL; SOURCE, BODY FLUID TOT PROTEIN PERITONEAL; TOTAL PROTEIN, BODY FLUID 0.4 G/DL (NOT ESTABLISHED)
[2021-03-03 14:55] LABS: SPEC. GRAVITY BODY FLUIDS 1.008 (NOT ESTABLISHED)
[2021-03-03] MEDS: MUPIROCIN 2% OINT 22 GM TUBE TOP SCH (14:59)
--- NOTE | 2021-03-03 16:28 | REP ---
INDICATION: paracentesis. COMPARISON: None. TECHNIQUE: The procedure was performed under the direct supervision of Dr. York. The risks and benefits of the procedure were explained to the patient and informed consent was obtained. The largest pocket of fluid was localized in the right lower quadrant using ultrasound guidance. The skin was prepped and draped in a sterile fashion. 1% lidocaine was used as a local anesthetic. Using ultrasound guidance an 18 gauge spinal needle was inserted and 50 cc of yellow fluid was withdrawn and sent to the lab for analysis.. The patient tolerated the procedure well and there were no immediate complications. After the appropriate amount of monitored convalescence, the patient was discharged from the department. FINDINGS: None IMPRESSION: Ultrasound-guided paracentesis [id number] cc of yellow fluid. <Electronically signed by Tim Acevedo > 03/03/21 [id number] <Electronically signed by Jose Juan York > 03/03/21 [id number]
[2021-03-03 19:50] LABS: BLOOD UREA NITROGEN 13 MG/DL (7-18); CALCIUM LEVEL 7.1 MG/DL (8.5-10.1); CARBON DIOXIDE LEVEL 24 MEQ/L (21-32); CHLORIDE LEVEL 110 MEQ/L (98-107); CREATININE FOR GFR 1.08 MG/DL (0.70-1.30); GLOMERULAR FILTRATION RATE > 60.0 (>56); GLUCOSE, FASTING 165 MG/DL (70-100); SODIUM LEVEL 143 MEQ/L (136-145)
[2021-03-03] MEDS: rOPINIRole 1MG TAB PO SCH (21:04)
[2021-03-03 22:00] VITALS: BP 146/86
[2021-03-04] VITALS (10 sets, daily range): BP systolic 143–193; BP diastolic 78–112
[2021-03-04] MEDS: FUROSEMIDE 40MG/4ML VIAL (J1940) IV SCH ×3 (02:22→18:06)
[2021-03-04] MEDS: SODIUM CHLORIDE 0.9% INJ 10 ML SYR IV PRN ×2 (02:22→09:38)
[2021-03-04] MEDS: SODIUM CHLORIDE 0.9% INJ 10 ML SYR IV SCH ×2 (06:07→18:06)
[2021-03-04 06:25] LABS: MEAN CORPUSCULAR HEMOGLOBIN 33.5 pg (27.0-33.0); MEAN CORPUSCULAR HGB CONC 33.7 g/dl (32.0-36.5); MEAN CORPUSCULAR VOLUME 99.5 fl (80.0-96.0); RED BLOOD COUNT 2.09 10^6/uL (4.30-6.10); WHITE BLOOD COUNT 4.6 10^3/uL (4.0-10.0)
[2021-03-04 06:26] LABS: HEMATOCRIT 20.8 % (42.0-52.0); PLATELET COUNT, AUTOMATED 55 10^3/uL (150-450)
[2021-03-04 07:08] LABS: ALBUMIN 1.5 GM/DL (3.2-5.2); ALT/SGPT 18 U/L (12-78); BILIRUBIN,TOTAL 0.4 MG/DL (0.2-1.0); BLOOD UREA NITROGEN 13 MG/DL (7-18); CALCIUM LEVEL 6.9 MG/DL (8.5-10.1); CARBON DIOXIDE LEVEL 28 MEQ/L (21-32); CHLORIDE LEVEL 111 MEQ/L (98-107); CREATININE FOR GFR 0.94 MG/DL (0.70-1.30); GLOMERULAR FILTRATION RATE > 60.0 (>56); GLUCOSE, FASTING 71 MG/DL (70-100); MAGNESIUM LEVEL 1.4 MG/DL (1.8-2.4); POTASSIUM SERUM 4.2 MEQ/L (3.5-5.1); SODIUM LEVEL 142 MEQ/L (136-145); VANCOMYCIN RANDOM 24.3 UG/ML
[2021-03-04] MEDS: HumaLOG INSULIN (NovoLOG) PER UNIT SC SCH ×3 (07:30→18:05)
[2021-03-04] MEDS: SUCRALFATE SUSP 1GM/10ML UD PO SCH ×4 (08:30→20:26)
[2021-03-04] MEDS: FOLIC ACID 1 MG TAB PO SCH (08:30)
[2021-03-04] MEDS: MULTIVITAMINS/MINERALS THERAP 1 TAB PO SCH (08:31)
[2021-03-04] MEDS: NICOTINE 14 MG/24 HR TRANSDERMAL TD SCH (08:31)
[2021-03-04] MEDS: PANTOPRAZOLE 40MG TAB (PROTONIX) PO SCH (08:31)
[2021-03-04] MEDS: SPIRONOLACTONE 50 MG TAB PO SCH (08:31)
[2021-03-04] MEDS: TAMSULOSIN 0.4 MG CAP PO SCH (08:31)
[2021-03-04] MEDS: IRON POLYSAC (NIFEREX) 150 MG CAP PO SCH ×2 (08:31→20:28)
[2021-03-04] MEDS: MUPIROCIN 2% OINT 22 GM TUBE TOP SCH (08:32)
[2021-03-04] MEDS: ENOXAPARIN 40MG/0.4ML SYRINGE (J1650 PER 10MG) SC SCH (08:53)
[2021-03-04] MEDS: MAGNESIUM OXIDE 400MG TAB (MAG-OX) PO SCH ×2 (08:53→20:26)
--- NOTE | 2021-03-04 10:38 | MHCR ---
[facility] PSYCHIATRIC CONSULTATION DATE OF CONSULT: 03/03/2021 HISTORY OF PRESENT ILLNESS: I was asked to see this 56-year-old man who was admitted to the hospital with multiple medical problems; however, the patient has a significant history of alcohol abuse. I was asked to see the patient because he has been on a sitter since he was admitted to the hospital, but I looked through the records and I could not find anywhere that it was documented not even in the Emergency Room Records that he had voiced any suicidal thoughts, but I did speak to the nurse on the floor and she says that when the patient was admitted to the medical unit that they were told that the patient had voiced suicidal thoughts in the Emergency Room so I asked the patient today and he said that no he does not remember saying that he was suicidal at all. Of note was that the patient had a blood alcohol level of 0.064 and he was not the best historian at the time. The patient states that he has been trying to cut down on the amount of alcohol that he drinks, but he said that on Father's Day he became depressed, he has 4 sons and none of them came to visit him and so he says he drank 30 beers that day and he says that he has decided that he does not want to drink anymore and he plans to go to AA meetings. The patient does not receive any psychiatric treatment and the patient says that he does not feel that he needs any treatment. I am not eliciting any mood symptoms from this patient. PAST PSYCHIATRIC HISTORY: The patient did have a psychiatric hospitalization in April, and apparently he was diagnosed with adjustment disorder with depressed mood, unspecified depressive disorder and alcohol use disorder severe and he apparently was discharged on Lexapro 10 mg and he was detoxified from the alcohol. The patient says that he has never really followed up with outpatient psychiatric treatment after that. Apparently he did make a suicidal gesture that led to the hospitalization. He was intoxicated and he self inflicted a laceration to his right wrist. Apparently the stressor was that his girlfriend apparently was cheating on him. He says that that is the only time that he has ever made any suicidal attempt and this is the only hospitalization. FAMILY HISTORY: There is no psychiatric history in the family. MEDICAL HISTORY: This patient has multiple medical problems. 1. Hepatitis C. 2. Hypertension. 3. Diabetes. 4. WPW syndrome 5. Crohn's disease. 6. Currently he is being treated for anasarca and hepatic dysfunction. SUBSTANCE ABUSE HISTORY: I feel the patient minimizes how much alcohol he has been drinking, but he admitted to trying to cut back on how much he was drinking and then on Father's Day he got feeling depressed that day and drank 30 beers. MENTAL STATUS EXAM: This patient is alert and oriented times 3. eye contact is fairly good. he is cooperative, verbally spontaneous. There is no formal thought disorder noted. he says his mood is good. his affect is constricted, but appropriate to mood. He is not psychotic or suicidal. Concentration is fair. Memory is grossly intact. Insight and judgment is good. DIAGNOSIS: Alcohol use disorder severe. TREATMENT PLAN: At this point the patient is denying suicidal ideation, he does not even remember making such a statement in the Emergency Room so I feel that it would be okay to discontinue to his sitter. From a psychiatric point of view he can be discharged home when he is medically stable. I did highly recommend to the patient that he look at attending an outpatient substance abuse clinic and I told him that [facility] has one available and told him that they have walk-in appointments every day he just has to get here first thing in the morning, but the patient said that he was not interested in doing that, but that he was planning on going back to AA meetings to which I said that sounded good, but I really felt that he needs more intensive treatment in an outpatient addictions program, but again he is not receptive to this. AMAYA
--- NOTE | 2021-03-04 14:57 | IPNPDOC ---
Text Note Date of Service The patient was seen on 03/04/21. NOTE Subjective: No any acute events overnight. Patient refused MRI yesterday. No fever or chills, diarrhea resolved Objective: GENERAL APPEARANCE: NAD HEENT: no scleral icterus, no JVD, EOMI CARDIOVASCULAR: S1S2 LUNGS: CTA ABDOMEN: soft & not tender w palpitation MUSCULOSKELETAL: no cyanosis, bilateral nonpitting edema of lower extremities, right second toe covered with dressing INTEGUMENT: no generalized pallor, multiple superficial wounds of distal legs NEUROLOGICAL: cranial nerve function from 2-12 intact intact, follows commands, speech not dysarthric Assessment and plan Pt is a 56 year old male with hepatitis C, hypertension, DM, WPW syndrome, alcohol abuse, and Crohn's disease who is here with anasarca and SI. Patient has hepatic dysfunction with elevated INR and low albumin. Ascites/EtOH abuse/hypoalbuminemia Most likely secondary to liver dysfunction secondary to EtOH abuse and history of hepatitis C superimposed with acute diastolic CHF MELD score 12 CT from 02/28/21 showed Diffuse anasarca. Moderate ascites. Patient received treatment with IV albumin Continue Lasix and spironolactone diagnostic paracentesis on 03/03/21, transudative fluid I's and O's alpha-fetoprotein with in normal limit Acute diastolic CHF BNP elevated to 6000 Echo showed diastolic dysfunction Continue Lasix IV and spironolactone Suicidal ideation Patient consulted by psychiatrist, no indication for mental health unit transfer Substance abuse clinic in the outpatient settings Diarrhea Resolved Deconditioning PT/OT Unstageable wound of right second toe Status post debridement There is concern for osteomyelitis. Await MRI Continue vancomycin IV Blood culture negative Wound dressings ordered including Vashe, Hydrofera Blue to be performed daily. Type 2 diabetes -HbA1c 8.5 -Continue sliding scale insulin Alcohol use disorder -Thiamine, folic acid, multivitamin -CIWA protocol Normocytic Anemia Most likely secondary to multiple comorbidities and myelosuppression Hemoglobin dropped today to 7.0. Will give 2 units of blood One set of Stool negative for blood Await repeated stool for occult blood H&H every 6 hours Hypokalemia Replaced Crohn's diseases Patient currently not on any medications for Crohn Follow-up with GI team in the outpatient settings Hypertension Blood pressures under control I intensified diuresis, Continue to monitor blood pressure Urinary retention Started Flomax VS,Fishbone, I+O VS, Fishbone, I+O Laboratory Tests 03/03/21 18:53 03/04/21 06:09 Vital Signs Date Time Temp Pulse Resp B/P (MAP) Pulse Ox O2 Delivery O2 Flow Rate FiO2 03/04/21 10:00 96.1 101 21 157/96 (116) 98 Room Air 03/01/21 18:59 97.0 I&O- Last 24 Hours up to 6 AM 03/04/21 05:59 Intake Total 1760 ml Output Total 1770 ml Balance -10 ml CHRIS MOSLEY DO Mar 04, 2021 14:57
[2021-03-04] MEDS ORDERED: PROHANCE 279.3MG/ML 5ML VIAL As Ordered ONE (15:10)
[2021-03-04] MEDS ORDERED: PROHANCE 279.3MG/ML 15ML VIAL As Ordered ONE (15:11)
--- NOTE | 2021-03-04 16:06 | REP ---
INDICATION: ulcers with erythema. COMPARISON: None. TECHNIQUE: Multiple sequences obtained in the axial, coronal and sagittal planes prior to and following the intravenous administration of 17 mL ProHance. FINDINGS: There is metallic fixation in the distal right lower leg which causes streak artifact and somewhat limits evaluation of the superior talus and calcaneus. The remaining osseous structures of the foot demonstrate no marrow signal abnormality or enhancement. There is no bone marrow edema or occult fracture. There is no MR evidence of osteomyelitis at this time. Soft tissues demonstrate diffuse edema with areas of ill-defined enhancement compatible with cellulitis. No abscess collection is seen. The flexor and extensor tendons, as well as the plantar tendon, appear intact with no tenosynovitis. IMPRESSION: No MR evidence of osteomyelitis or occult fracture of the right foot. There is edema and cellulitis of the soft tissues of the foot. No abscess is seen. <Electronically signed by Jose Juan York > 03/04/21 [id number]
[2021-03-04] MEDS ORDERED: METOPROLOL TART 25 MG TABLET PO ONE (20:00)
[2021-03-04] MEDS: rOPINIRole 1MG TAB PO SCH (20:26)
--- NOTE | 2021-03-04 20:54 | ECHO ---
ECHOCARDIOGRAM DATE OF PROCEDURE: 03/04/2021 Age: 56 Gender: Male Height: 175 cm Weight: 88 kg REFERRING PHYSICIAN: Dr. David Limon INDICATION: Heart failure unspecified. MEASUREMENTS: 2D Measurements: Aortic root 4.0 cm Left atrium 3.4 cm Intraventricular septum 1.47 cm Posterior wall 1.08 cm Left ventricle diastole 3.0 cm Left ventricle systole 2.1 cm Left atrial volume index 24 cm Inferior vena cava 1.0 cm (more than 50% respiratory variation) Doppler Measurements: No aortic stenosis No aortic regurgitation Aortic valve velocity 77.6 cm/s No mitral regurgitation No mitral stenosis Mitral E velocity 57.8 cm/s Mitral A velocity 87.6 cm/s Very mild tricuspid regurgitation Estimated right ventricle systolic pressure 18-23 mmHg Estimated right atrial pressure 5-10 mmHg No pulmonic regurgitation MITRAL ANNULAR TISSUE DOPPLER E prime septal 7.76 cm/s, E prime lateral 9.76 cm/s DESCRIPTION: Rhythm was sinus rhythm mostly in the high 90's. Image quality was fair. No pericardial effusion. This was a 2D, M-mode, color flow Doppler, and pulsed wave Doppler examination including mitral annular tissue Doppler. CONCLUSIONS: 1. Mild left hypertrophy at the base of the anterior septum. No dynamic LVOT obstruction. Normal left ventricle internal dimensions. Normal regional LV wall motion and wall thickening. Normal LV systolic function. LVEF 70% by visual estimate. Grade 1 LV diastolic dysfunction. 2. Presence of a left pleural effusion (probably at least moderate). 3. No pericardial effusion. 4. Mild mitral annular calcification. No mitral regurgitation. 5. Mild dilatation of the aortic root at the level of the sinus of Valsalva. [facility]
[2021-03-04] MEDS ORDERED: METOPROLOL TART 25 MG TABLET PO SCH (22:00)
[2021-03-05] VITALS (8 sets, daily range): BP systolic 136–178; BP diastolic 86–99
[2021-03-05] MEDS: FUROSEMIDE 40MG/4ML VIAL (J1940) IV SCH ×2 (02:28→09:36)
[2021-03-05] MEDS: SODIUM CHLORIDE 0.9% INJ 10 ML SYR IV PRN ×3 (03:04→06:04)
[2021-03-05] MEDS: GLUCOSE 4GM CHEW TABLET PO PRN (03:10)
[2021-03-05] MEDS ORDERED: DEXTROSE 50% 50 ML SYRINGE IV STA (03:14)
[2021-03-05 04:44] LABS: HEMATOCRIT 29.2 % (42.0-52.0); MEAN CORPUSCULAR HGB CONC 34.2 g/dl (32.0-36.5); MEAN CORPUSCULAR VOLUME 96.4 fl (80.0-96.0); RED BLOOD COUNT 3.03 10^6/uL (4.30-6.10); WHITE BLOOD COUNT 3.7 10^3/uL (4.0-10.0)
[2021-03-05 04:47] LABS: PLATELET COUNT, AUTOMATED 53 10^3/uL (150-450)
[2021-03-05 05:04] LABS: ALBUMIN 1.5 GM/DL (3.2-5.2); ALT/SGPT 18 U/L (12-78); BILIRUBIN,TOTAL 0.7 MG/DL (0.2-1.0); BLOOD UREA NITROGEN 13 MG/DL (7-18); CALCIUM LEVEL 7.5 MG/DL (8.5-10.1); CARBON DIOXIDE LEVEL 29 MEQ/L (21-32); CHLORIDE LEVEL 110 MEQ/L (98-107); GLOMERULAR FILTRATION RATE > 60.0 (>56); GLUCOSE, FASTING 135 MG/DL (70-100); MAGNESIUM LEVEL 1.2 MG/DL (1.8-2.4); POTASSIUM SERUM 3.6 MEQ/L (3.5-5.1); SODIUM LEVEL 143 MEQ/L (136-145); TOTAL PROTEIN 4.3 GM/DL (6.4-8.2)
[2021-03-05] MEDS: METOPROLOL TART 25 MG TABLET PO SCH ×2 (06:03→13:09)
[2021-03-05] MEDS: SODIUM CHLORIDE 0.9% INJ 10 ML SYR IV SCH (06:03)
[2021-03-05] MEDS ORDERED: MAG SULF 1GM/100ML (MAG RUN) 1 GM in IV 1 EA IV ONE (08:10)
[2021-03-05] MEDS: ENOXAPARIN 40MG/0.4ML SYRINGE (J1650 PER 10MG) SC SCH (09:00)
[2021-03-05] MEDS ORDERED: POTASSIUM CHLORIDE 10 MEQ SR TABLET PO ONE (09:00)
[2021-03-05] MEDS ORDERED: DOXYCYCLINE HYCLATE 100MG TABLET PO SCH (09:00)
[2021-03-05] MEDS: SUCRALFATE SUSP 1GM/10ML UD PO SCH ×2 (09:33→13:10)
[2021-03-05] MEDS: HumaLOG INSULIN (NovoLOG) PER UNIT SC SCH ×2 (09:33→13:09)
[2021-03-05] MEDS: MAGNESIUM OXIDE 400MG TAB (MAG-OX) PO SCH (09:34)
[2021-03-05] MEDS: IRON POLYSAC (NIFEREX) 150 MG CAP PO SCH (09:34)
[2021-03-05] MEDS: TAMSULOSIN 0.4 MG CAP PO SCH (09:34)
[2021-03-05] MEDS: MULTIVITAMINS/MINERALS THERAP 1 TAB PO SCH (09:34)
[2021-03-05] MEDS: PANTOPRAZOLE 40MG TAB (PROTONIX) PO SCH (09:35)
[2021-03-05] MEDS: FOLIC ACID 1 MG TAB PO SCH (09:35)
[2021-03-05] MEDS: SPIRONOLACTONE 50 MG TAB PO SCH (09:36)
[2021-03-05] MEDS: NICOTINE 14 MG/24 HR TRANSDERMAL TD SCH (09:36)
[2021-03-05] MEDS: MUPIROCIN 2% OINT 22 GM TUBE TOP SCH (09:37)
[2021-03-05 09:59] LABS: NT-PRO BNP 2529 PG/ML (<125)
[2021-03-05] MEDS ORDERED: DOXY100T PO (13:22)
[2021-03-05] MEDS ORDERED: TOPR100T PO (13:22)
[2021-03-05] MEDS ORDERED: LISI40TA4 PO (13:33)
[2021-03-05] MEDS ORDERED: TORS10TA3 PO (13:33)
[2021-03-05] MEDS ORDERED: MAGN400T2 PO (13:33)
[2021-03-05] MEDS ORDERED: METF-838 PO (13:33)
[2021-03-05] MEDS ORDERED: FOLI1TAB11 PO (13:33)
[2021-03-05] MEDS ORDERED: FLOM0.4C39 PO (13:33)
[2021-03-05] MEDS ORDERED: PANT40TA29 PO (13:33)
[2021-03-05] MEDS ORDERED: IRON325T2 PO (13:33)
--- NOTE | 2021-03-05 17:13 | DS.PDOC ---
Discharge Summary General Date of Admission Feb 28, 2021 at 03:30 Date of Discharge 03/05/21 Discharge Summary PROCEDURES PERFORMED DURING STAY: [None]. ADMITTING DIAGNOSES: Ascites/EtOH abuse/hypoalbuminemia Acute diastolic CHF Suicidal ideation Diarrhea Type 2 diabetes Normocytic Anemia Hypokalemia Urinary retention Crohn's diseases Hypertension Alcohol use disorder Unstageable wound of right second toe Deconditioning DISCHARGE DIAGNOSES: Ascites/EtOH abuse/hypoalbuminemia Acute diastolic CHF Suicidal ideation Diarrhea Type 2 diabetes Normocytic Anemia Hypokalemia Urinary retention Crohn's diseases Hypertension Alcohol use disorder Unstageable wound of right second toe Deconditioning COMPLICATIONS/CHIEF COMPLAINT: Anemia. HISTORY OF PRESENT ILLNESS: Pt is a 56 year old male with hepatitis C, hypertension, DM, WPW syndrome, alcohol abuse, and Crohn's disease who is here with anasarca and SI. Patient has hepatic dysfunction with elevated INR and low albumin. HOSPITAL COURSE: During the hospital stay following issue addressed Ascites/EtOH abuse/hypoalbuminemia Most likely secondary to liver dysfunction secondary to EtOH abuse and history of hepatitis C superimposed with acute diastolic CHF MELD score 12 CT from 02/28/21 showed Diffuse anasarca. Moderate ascites. Patient received treatment with IV albumin Continue Lasix and spironolactone diagnostic paracentesis on 03/03/21, transudative fluid I's and O's alpha-fetoprotein with in normal limit Acute diastolic CHF BNP elevated to 6000 Echo showed diastolic dysfunction Continue Lasix IV and spironolactone Suicidal ideation Patient consulted by psychiatrist, no indication for mental health unit transfer Substance abuse clinic in the outpatient settings Diarrhea Resolved Deconditioning PT/OT Unstageable wound of right second toe Status post debridement There was concern for osteomyelitis. MRI negative for osteomyelitis Received vancomycin IV Blood culture negative Wound dressings ordered including Vashe, Hydrofera Blue to be performed daily. Type 2 diabetes -HbA1c 8.5 Received sliding scale insulin Alcohol use disorder -Thiamine, folic acid, multivitamin -CIWA protocol Normocytic Anemia Most likely secondary to multiple comorbidities and myelosuppression Patient received 2 units of blood 2 sets of Stool negative for blood Hypokalemia Replaced Crohn's diseases Patient currently not on any medications for Crohn Follow-up with GI team in the outpatient settings Hypertension Blood pressures under control I intensified diuresis, Continue to monitor blood pressure Urinary retention Started Flomax DISCHARGE MEDICATIONS: Please see below. ALLERGIES: Please see below. PHYSICAL EXAMINATION ON DISCHARGE: VITAL SIGNS: Please see below. GENERAL APPEARANCE: NAD HEENT: no scleral icterus, no JVD, EOMI CARDIOVASCULAR: S1S2 LUNGS: CTA ABDOMEN: soft & not tender w palpitation MUSCULOSKELETAL: no cyanosis, bilateral nonpitting edema of lower extremities, right second toe covered with dressing INTEGUMENT: no generalized pallor, multiple superficial wounds of distal legs NEUROLOGICAL: cranial nerve function from 2-12 intact intact, follows commands, speech not dysarthric LABORATORY DATA: Please see below. IMAGING: [facility] NAME: GWEN JOLLEY DATE OF : 1965 AGE: 56 SEX: M REPORT #: [id number] ROOM: [facility] TECHNOLOGIST: NYASIA DOCTOR: CHRIS MOSLEY DO Ordered for Date&Time: 03/04/21 1632 cc: [~ rep ct ivnm] Service Date&Time: 03/04/21 1500 This report is in Signed status. If this report is in a DRAFT status it has not yet been reviewed by the radiologist for accuracy. Thank you for having your radiology procedures performed at [facility] RADIOLOGY REPORT Date&Time printed: [~ rep prt dt last] [~ rep prt tm last] Page 2 of 2 [place] [address] RADIOLOGY REPORT This report is in Signed status. If this report is in a DRAFT status it has not yet been reviewed by the radiologist for accuracy. Thank you for having your radiology procedures performed at [facility] RADIOLOGY REPORT Date&Time printed: [~ rep prt dt last] [~ rep prt tm last] Page 1 of 2 ROOM: [facility] TECHNOLOGIST: NYASIA DOCTOR: CHRIS MOSLEY DO Ordered for Date&Time: 03/04/21 1632 cc: [~ rep ct ivnm] Service Date&Time: 03/04/21 1500 EXAMINATION REQUESTED: MRI-Foot W/O FOL WITH RIGHT REASON FOR PATIENT VISIT: ANEMIA REASON FOR EXAM/COMMENT: ulcers with erythema INDICATION: ulcers with erythema. COMPARISON: None. TECHNIQUE: Multiple sequences obtained in the axial, coronal and sagittal planes prior to and following the intravenous administration of 17 mL ProHance. FINDINGS: There is metallic fixation in the distal right lower leg which causes streak artifact and somewhat limits evaluation of the superior talus and calcaneus. The remaining osseous structures of the foot demonstrate no marrow signal abnormality or enhancement. There is no bone marrow edema or occult fracture. There is no MR evidence of osteomyelitis at this time. Soft tissues demonstrate diffuse edema with areas of ill-defined enhancement compatible with cellulitis. No abscess collection is seen. The flexor and extensor tendons, as well as the plantar tendon, appear intact with no tenosynovitis. IMPRESSION: No MR evidence of osteomyelitis or occult fracture of the right foot. There is edema and cellulitis of the soft tissues of the foot. No abscess is seen. <Electronically signed by Jose Juan York > 03/04/21 1602 DD: Jose Juan York MD, MD 03/04/21 1602 DT: JACKI 03/04/21 1602 DS: IFEOMA 03/04/21 1602 03/04/21 1602 [~ rep ct labl] PROGNOSIS: Fair ACTIVITY: [As tolerated]. DIET: Cardiac DISCHARGE INSTRUCTIONS: Fluid restriction to 2 L ITEMS TO FOLLOWUP ON ON OUTPATIENT: Follow-up with PCP, GI team and gear cutter DISCHARGE CONDITION: [Stable]. TIME SPENT ON DISCHARGE:40 minutes. Vital Signs/I&Os Vital Signs Date Time Temp Pulse Resp B/P (MAP) Pulse Ox O2 Delivery O2 Flow Rate FiO2 03/05/21 13:09 77 136/90 03/05/21 10:00 98.2 15 99 Room Air 03/01/21 18:59 97.0 I&O- Last 24 Hours up to 6 AM 03/05/21 06:00 Intake Total 2811 ml Output Total 5150 ml Balance -2339 ml Laboratory Data Labs 24H Laboratory Tests 2 03/04/21 20:24: Bedside Glucose (Misc Panel) 105 03/05/21 02:59: Bedside Glucose (Misc Panel) 26*L 03/05/21 03:27: Bedside Glucose Confirm (Misc) 109 03/05/21 03:47: Bedside Glucose (Misc Panel) 118H 03/05/21 04:16: Nucleated Red Blood Cells % (auto) 0.0, Immature Platelet Fraction 9.1, Anion Gap 4L, Glomerular Filtration Rate > 60.0, Calcium Level 7.5L, Magnesium Level 1 .2L, Total Bilirubin 0.7#, Aspartate Amino Transf (AST/SGOT) 20, Alanine Aminotransferase (ALT/SGPT) 18, Alkaline Phosphatase 180H, LI-Gtm-O-Type Natriuretic Peptide 2529H, Total Protein 4.3L, Albumin 1.5L, Albumin/Globulin Ratio 0.5 03/05/21 06:14: Random Vancomycin Level 16.3 03/05/21 11:38: Coronavirus (COVID-19)(PCR) NEGATIVE 03/05/21 11:57: Bedside Glucose (Misc Panel) 193H CBC/BMP Laboratory Tests 03/05/21 04:16 FSBS Laboratory Tests Test 03/04/21 20:24 03/05/21 02:59 03/05/21 03:47 03/05/21 11:57 Range/Units Bedside Glucose (Misc Panel) 105 26 118 193 70-105 MG/DL Microbiology Microbiology 03/04/21 Stool Occult Blood (MONET) - Final, Complete 03/03/21 Acid Fast Stain, Received Pending 03/03/21 Mycobacterial Culture, Received Pending 03/03/21 Fungal Smear, Received Pending 03/03/21 Fungal Culture, Received Pending 03/03/21 Gram Stain - Final, Complete 03/03/21 Body Fluid Culture - Final, Complete 03/03/21 Anaerobic Culture - Final, Complete 02/28/21 Stool Occult Blood (MONET) - Final, Complete 02/28/21 Blood Culture - Final, Complete NO GROWTH AFTER 5 DAYS 02/28/21 Blood Culture - Final, Complete NO GROWTH AFTER 5 DAYS Discharge Medications Scheduled Carvedilol (Carvedilol) 3.125 Mg Tablet, 3.125 MG PO BID, (Reported) TAKES WITH 12.5MG FOR 15.625MG TOTAL Carvedilol (Carvedilol) 25 Mg Tablet, 12.5 MG PO BID, (Reported) TAKES WITH 3.125MG FOR 15.625MG TOTAL Doxycycline Hyclate (Doxycycline Hyclate) 100 Mg Tablet, 100 MG PO BID Ferrous Sulfate (Iron) 325 Mg Tablet, 1 TAB PO BID Folic Acid (Folic Acid) 1 Mg Tablet, 1 MG PO DAILY Gabapentin (Gabapentin) 600 Mg Tablet, 600 MG PO TID, (Reported) Lisinopril (Lisinopril) 40 Mg Tablet, 1 TAB PO DAILY Magnesium Oxide (Magnesium Oxide) 400 Mg Tablet, 400 MG PO DAILY Metformin HCl (Metformin HCl ER) 500 Mg Tab.er.24h, 500 MG PO BID Omeprazole (Omeprazole) 40 Mg Capsule.dr, 40 MG PO DAILY, (Reported) Ropinirole HCl (Ropinirole HCl) 0.5 Mg Tablet, 1 MG PO QHS, (Reported) Sucralfate (Sucralfate) 1 Gm Tablet, 1 GM PO BID, (Reported) Tamsulosin HCl (Flomax) 0.4 Mg Capsule, 0.8 MG PO DAILY Torsemide (Torsemide) 10 Mg Tablet, 1 TAB PO DAILY Allergies Coded Allergies: No Known Allergies (Unverified , 08/22/20) CHRIS MOSLEY DO Mar 05, 2021 17:13
== END 2021-03-05 14:38 | DRG 622 ==
LOC: M ED 20:50 → M ED INP 20:51 → OBSVTOIN 02-28 03:30 → M MSPAV 02-28 08:15
PROVIDERS: ADMIT Internal Medicine; ATTEND Internal Medicine
PROC: 02HV33Z Insertion of Infusion Device into Superior Vena Cava, Percutaneous Approach (ICD-10-PCS; 2021-03-01)
PROC: 0LBV0ZZ Excision of Right Foot Tendon, Open Approach (ICD-10-PCS; principal; 2021-03-01 10:31)
PROC: 0W9930Z Drainage of Right Pleural Cavity with Drainage Device, Percutaneous Approach (ICD-10-PCS; 2021-03-03)
DX: E11.621 Type 2 diabetes mellitus with foot ulcer (principal); E43 Unspecified severe protein-calorie malnutrition; I50.33 Acute on chronic diastolic (congestive) heart failure; J90 Pleural effusion, not elsewhere classified; R45.851 Suicidal ideations; L03.115 Cellulitis of right lower limb; L03.116 Cellulitis of left lower limb; R18.8 Other ascites; K50.90 Crohn's disease, unspecified, without complications; R29.6 Repeated falls; L03.031 Cellulitis of right toe; B19.20 Unspecified viral hepatitis C without hepatic coma; M54.5 Low back pain; M54.2 Cervicalgia; D50.9 Iron deficiency anemia, unspecified; E53.8 Deficiency of other specified B group vitamins; K21.9 Gastro-esophageal reflux disease without esophagitis; K27.9 Peptic ulcer, site unspecified, unspecified as acute or chronic, without hemorrhage or perforation; I45.6 Pre-excitation syndrome; E78.5 Hyperlipidemia, unspecified; E11.42 Type 2 diabetes mellitus with diabetic polyneuropathy; Z98.84 Bariatric surgery status; F17.210 Nicotine dependence, cigarettes, uncomplicated; F10.10 Alcohol abuse, uncomplicated; Z20.822 Contact with and (suspected) exposure to COVID-19; Z79.899 Other long term (current) drug therapy; L97.519 Non-pressure chronic ulcer of other part of right foot with unspecified severity; R33.9 Retention of urine, unspecified; Z72.3 Lack of physical exercise; E87.6 Hypokalemia; R19.7 Diarrhea, unspecified; K59.00 Constipation, unspecified; I11.0 Hypertensive heart disease with heart failure